=== PATIENT | male | born 1950 | race Caucasian/White ===

== ENCOUNTER 2019-01-03 09:30 | Outpatient (CLI) | payer OTHER, SELFPAY ==
[2019-01-03 10:13] LABS: HGB 12.2 g/dL (13.5-17.5); Mean Corpuscular Hemoglobin 19.6 pg (27.0-33.0); Mean Corpuscular Volume 59.4 fL (80-95); Mean Platelet Volume 9.1 fL (8.0-11.0); Platelet Count 444 x1000/uL (130-400); RBC 6.23 m/cumm (4.50-6.00); RBC Distribution Width 19.2 % (11.8-14.1); White Blood Cell Count 10.43 k/cumm (4.4-10.8)
[2019-01-03 11:11] LABS: D-Dimer 718 ng/mlFEU (<500)
[2019-01-03 12:03] LABS: ALT 17 U/L (12-78); AST 16 U/L (15-37); Albumin 3.8 g/dL (3.4-5.0); Alkaline Phosphatase 126 U/L (46-116); Anion Gap 11.1 mmol/L (3-11); BUN 30 mg/dL (7-18); Bilirubin, Total 0.8 mg/dL (0.2-1.0); CO2 26.9 mmol/L (21.0-32.0); Calcium 9.1 mg/dL (8.5-10.1); Chloride 100 mmol/L (98-107); Estimated GFR 37.94 (mL/min/1.73m2); Glucose 82 mg/dL (70-100); Potassium 4.5 mmol/L (3.5-5.1); Sodium 138 mmol/L (136-145); Total Protein 7.7 g/dL (6.4-8.2)
[2019-01-03 12:32] LABS: NT-proBNP 786 pg/mL
== END 2019-01-03 09:50 ==
LOC: LBO 09:32 → NCHCO 09:58
PROVIDERS: PCP Internal Medicine; Visit Provider Internal Medicine
DX: R06.09 Other forms of dyspnea (principal); R07.89 Other chest pain
CPT/HCPCS: 36415; 80053; 85027; 83880; 85379

== ENCOUNTER 2019-01-07 00:43 | Outpatient (CLI) | payer OTHER, SELFPAY ==
--- NOTE | 2019-01-07 12:51 | DI.CT_ITS ---
SYMPTOMS/DIAGNOSIS: SHORTNESS OF BREATH, R06.02, ELEVATED D-DIMER; LEFT UPPER QUADRANT ABDOMINAL MASS, R19.[address] FOR PULMONARY EMBOLISM: CT angiography was performed with multi slice acquisition and multi planar and 3D reconstruction. Comparison is made with chest x-ray dated April,. The pulmonary arteries, as well as aorta, are well opacified with IV contrast. There is no evidence of pulmonary emboli. There is mild motion at the aortic root. There is no gross evidence of dissection. No aneurysm is seen. There are mild atherosclerotic changes of the thoracic aorta and more prominent atherosclerotic changes in the abdominal aorta. Calcifications are seen in the anterior inferior aspect of the right upper lobe. There is mild respiratory motion. No acute infiltrates, effusion or pulmonary edema is seen. There are no pleural or pericardial effusions or evidence of adenopathy. Coronary artery calcifications are seen. There are degenerative changes in the thoracic spine. IMPRESSION: No evidence of pulmonary emboli. Atherosclerotic changes of the aorta without evidence of aneurysm, as well as coronary artery calcifications are seen. CT OF THE ABDOMEN: The liver and spleen are normal in size. There are stones in the dependent portion of the gallbladder, but no evidence of biliary dilatation or gallbladder wall thickening. The left kidney appears atrophic. There are a few small cysts on the right kidney. The right kidney appears to show compensatory hypertrophy. There are areas of right renal scarring. There is no hydronephrosis of either kidney. There are calcifications in the abdominal aorta and iliac arteries. There are also calcifications of both renal arteries. The spleen is normal in size. The adrenals and pancreas appear normal. There is no bowel dilatation or inflammatory change. No left upper quadrant mass is seen. There is no adenopathy. Degenerative changes are seen in the spine. IMPRESSION: Atherosclerotic changes of the aorta and branch vessels, as well as renal artery calcification. There is atrophy of the left kidney and compensatory hypertrophy of the right kidney, as well as areas of right renal scarring.
[2019-01-07] MEDS: Omnipaque 350 MG/ML 100 ML BTL IJ (13:33)
== END 2019-01-07 01:03 ==
PROVIDERS: PCP Internal Medicine; Visit Provider Internal Medicine
DX: R79.1 Abnormal coagulation profile (principal); R06.2 Wheezing; I70.0 Atherosclerosis of aorta; I70.1 Atherosclerosis of renal artery; R19.02 Left upper quadrant abdominal swelling, mass and lump
CPT/HCPCS: 71275; 74177; J3490

== ENCOUNTER → 2019-01-14 08:47 | Outpatient (REF) | payer OTHER, SELFPAY ==
[2019-01-14 14:02] LABS: Anion Gap 8.6 mmol/L (3-11); BUN 37 mg/dL (7-18); CO2 27.4 mmol/L (21.0-32.0); Calcium 9.4 mg/dL (8.5-10.1); Chloride 102 mmol/L (98-107); Estimated GFR 35.64 (mL/min/1.73m2); Glucose 100 mg/dL (70-100); Potassium 4.8 mmol/L (3.5-5.1); Sodium 138 mmol/L (136-145)
== END ==
LOC: NCHCN 08:47
PROVIDERS: PCP Internal Medicine; Visit Provider Internal Medicine
DX: I10 Essential (primary) hypertension (principal); N18.3 Chronic kidney disease, stage 3 (moderate)
CPT/HCPCS: 80048

== ENCOUNTER 2019-02-19 07:02 | Emergency (ER) | payer OTHER, SELFPAY ==
[2019-02-19] VITALS (18 sets, daily range): BP systolic 165; BP diastolic 97; PULSE 59–748; RESP 7–41; TEMP 37.2; O2SAT 88–100
--- NOTE | 2019-02-19 07:09 | DI.RAD_ITS ---
SYMPTOM/DIAGNOSIS: COUGH, SOB PA AND LATERAL CHEST: Comparison is made with 04/29/17. Heart size and pulmonary vasculature are within normal limits. Plate atelectatic changes are seen. No focal consolidating infiltrates, effusions or pneumothoraces are identified. Degenerative changes are seen in the spine. The lungs do appear to be mildly hyperinflated with flattened diaphragms suggesting underlying COPD. IMPRESSION: No acute pulmonary process.
[2019-02-19] MEDS: methylPREDNISolone SUCC 125 MG VIAL (07:11)
[2019-02-19] MEDS: Albuterol/Ipratropium 3 ML UPD VIAL ×2 (07:11→08:16)
--- NOTE | 2019-02-19 07:12 | W.ED.GENAD ---
Discharge Plan Disposition Patient Disposition: HOME Condition: Improving Discharge Details Chief Complaint: RespSymp Clinical Impression: Asthma exacerbation in COPD Primary Care Provider: Bryant Watkins ED Provider: Juan Stewart Home Meds and New Rx's Prescriptions: New ipratropium-albuterol 0.5 mg-3 mg(2.5 mg base)/3 mL solution for nebulization 3 ml IH Q6H Qty: 90 RF: 0 prednisone 50 MG tablet 50 mg PO DAILY Qty: 5 RF: 0 doxycycline hyclate 100 mg capsule 100 mg PO BID Qty: 20 RF: 0 No Action rosuvastatin [Crestor] 10 MG tablet 10 g PO .QHS RF: 0 albuterol sulfate [ProAir HFA] 200 PUFF HFA aerosol inhaler 2 puff Inhalation Q4H PRN PRNQty: 1 RF: 0 torsemide 20 mg Tablet 20 mg PO DAILY RF: 0 metoprolol succinate [Toprol XL] 50 mg Tablet Extended Release 24 Hr 50 mg PO DAILY RF: 0 terazosin 1 mg Capsule 1 mg PO DAILY RF: 0 minoxidil 2.5 mg Tablet 5 mg PO DAILY RF: 0 amlodipine 10 mg Tablet 10 mg PO DAILY RF: 0 polyethylene glycol 3350 [GlycoLax] 17 gram/dose Powder 17 g PO DAILY PRNRF: 0 Bevespi Aerosphere 9-4.8 mcg Hfa Aerosol Inhaler 2 puff INHALATION QAM AND QPM RF: 0 Discharge Instructions Instructions: COPD (Chronic Obstructive Pulmonary Disease) (ED) Additional Instructions: Please take the antibiotic, prednisone, and breathing treatments as directed. If you notice any worsening of your symptoms, or any new symptoms such as vomiting, diarrhea, fever, chills, shortness of breath, chest pain, numbness, weakness, or fainting , please return immediately to the emergency department for reevaluation. Please follow up with your primary care provider as soon as possible for reassessment and reevaluation. As always, it was a pleasure participating in your medical care today. Referrals: Bryant Watkins MD [Primary Care Provider] - Discharge Data Discharge Date/Time-TO BE ENTERED AT DEPARTURE: 02/19/19 09:23 Medical Decision Making <Manuel Nguyen DO - Last Filed: 02/21/19 08:03> This is a pleasant 68-year-old male with past medical history of COPD, no recent admissions or exacerbations for the last year. Patient states that 3 days ago he began having worsening cough and shortness of breath, been taking his breathing treatments but these have not been helping as of late. He does admit to a cough that is nonproductive. He denies any other complaints. He denies any concerning red flags of chest pain, arm, neck, or shoulder pain. She denies a history of cardiac disease. Exam demonstrates mild respiratory distress, diminished breath sounds throughout, no significant rhonchi. Oxygen saturations are stable currently on 2 L of supplemental oxygen, however he was 90% on room air when he first arrived. We will give breathing treatments, steroids, and get chest x-ray, evaluate for unlikely cardiac etiology as his signs and symptoms are clinically consistent with COPD exacerbation. 7:37 AM Patient has had notable improvement with multiple breathing treatments and Solu-Medrol. He is feeling much better. I do feel that he would benefit from an outpatient nebulizer for the rest of his life. We will get this set up for him. Pending chest x-ray results at this time. EKG 7: 06 Rate 77, intervals normal, less than 1 mm of normal J-point nontombs stoning ST elevation in V1 through V3, poor R wave progression. EKG from 04/29/17 demonstrates the same findings. Slight peaking of T waves are noted in V2 and V3 V4. <Juan Stewart MD - Last Filed: 02/19/19 09:13> Received signout from Dr. Nguyen. Please see his note regarding details of initial presentation, plan of care. Patient's chest x-ray without focal consolidation. Consistent with his known COPD. He stable and improved, appropriate discharged home per previous plan HPI <Manuel Nguyen DO - Last Filed: 02/21/19 08:03> General Date/Time Provider Initiated Documentation: 02/19/19 07:04. HPI Narrative: This is a 68-year-old male with a past medical history of COPD, who no longer smokes but his significant other who lives with him does smoke, who presents today for evaluation of shortness of breath. Patient states that for the last 3 days he has had a nonproductive cough, and shortness of breath. Initially it was benefited by his breathing treatments however that is no longer the case. He denies any chest pain, pleuritic chest pain, arm, neck, or shoulder pain. He denies any history of cardiac disease. He denies any fever, chills. He denies any new medication changes. He denies any history of blood clots, recent long trips, recent surgeries or procedures. He has no other complaints at this time. He denies any other modifying factors. Related Data Home Medications Medication Instructions Recorded Confirmed albuterol sulfate [ProAir HFA] 2 puff INHALATION Q4H PRN PRN #1 04/29/17 02/21/19 inh rosuvastatin [Crestor] 10 g PO .QHS 04/29/17 02/21/19 amlodipine 10 mg PO DAILY 02/19/19 02/21/19 doxycycline hyclate 100 mg PO BID #20 cap 02/19/19 02/21/19 glycopyrrolate-formoterol [Bevespi 2 puff INHALATION QAM AND QPM 02/19/19 02/21/19 Aerosphere] ipratropium-albuterol 3 ml IH Q6H #90 ml 02/19/19 02/21/19 metoprolol succinate [Toprol XL] 50 mg PO DAILY 02/19/19 02/21/19 minoxidil 5 mg PO DAILY 02/19/19 02/21/19 polyethylene glycol 3350 [GlycoLax] 17 g PO DAILY PRN 02/19/19 02/21/19 prednisone 50 mg PO DAILY #5 tab 02/19/19 02/21/19 terazosin 1 mg PO DAILY 02/19/19 02/21/19 torsemide 20 mg PO DAILY 02/19/19 02/21/19 Previous Rx's Medication Instructions Recorded albuterol sulfate [ProAir HFA] 2 puff INHALATION Q4H PRN PRN #1 04/29/17 inh doxycycline hyclate 100 mg PO BID #20 cap 02/19/19 ipratropium-albuterol 3 ml IH Q6H #90 ml 02/19/19 prednisone 50 mg PO DAILY #5 tab 02/19/19 Allergies Allergy/AdvReac Type Severity Reaction Status Date / Time acetaminophen Allergy Unverified 02/21/19 04:14 [From Tylenol-Codeine] codeine phosphate Allergy Unverified 02/21/19 04:14 [From Tylenol-Codeine] General Stated Complaint: RespSymp DAISY: 2 Review of Systems <Manuel Nguyen DO - Last Filed: 02/21/19 08:03> Review of Systems All systems reviewed & are unremarkable except as noted in HPI and below PFSH <Manuel Nguyen DO - Last Filed: 02/21/19 08:03> Social History Smoking/Tobacco Use Status: Former Tobacco Use Quit Date: 01/11/17 Alcohol Intake: never Substance use type: does not use Do you feel safe at home: Yes Do you feel safe in your relationship?: Yes Exam <Manuel Nguyen DO - Last Filed: 02/21/19 08:03> Narrative Exam Narrative: 1.Const: Well-nourished, Well-developed, appearing stated age 2.Eyes: PERRL, no conjunctival injection, and symmetrical lids. 3.ENT: Atraumatic external nose and ears. Moist MM. Neck: Symmetric, trachea midline, No thyromegaly. 4.CVS: +S1/S2, No murmurs or gallops. Peripheral pulses 2+ and equal in all extremities. Brisk capillary refill in all extremities. 5.RESP: Mild respiratory distress, no hypoxemia. Diminished breath sounds throughout, no rhonchi. Minimal crackles. 6.GI: Soft, Nontender/Nondistended, No hepatosplenomegaly. No guarding or rebound. 7.MSK: Normocephalic/Atraumatic, Extremities w/o deformity or ttp No cyanosis or clubbing, Normal movement of all extremities. No calf tenderness. 8.Skin: Warm, Dry. No rashes or lesions. 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 Sensation grossly intact, no focal neurologic deficits. 10.Psych: (AAO) x3. Appropriate mood and affect Course <Manuel Nguyen DO - Last Filed: 02/21/19 08:03> Vital Signs Temperature 37.2 C 02/19/19 07:05 Pulse 748 H 02/19/19 07:05 Respiratory Rate 25 H 02/19/19 07:05 Blood Pressure 165/97 H 02/19/19 07:05 Pulse Oximetry 94 L 02/19/19 07:05 Temperature 37.2 C 02/19/19 07:05 Temperature Source Temporal Artery Scan 02/19/19 07:05 Pulse 78 02/19/19 07:11 Respiratory Rate 21 02/19/19 07:11 Blood Pressure 165/97 H 02/19/19 07:05 Blood Pressure Position Sitting 02/19/19 07:05 Pulse Oximetry 99 02/19/19 07:11 Oxygen Delivery Method Aerosol Mask 02/19/19 07:11 Oxygen Flow Rate 0 02/19/19 07:05 Pain Level 0 02/19/19 07:05 Sign Out <Manuel Nguyen DO - Last Filed: 02/21/19 08:03> Sign Out Data: Sign Out Comment: Pending chest x-ray results and discharge Last updated by Manuel Nguyen DO at 02/19/19 08:11
[2019-02-19 07:22] LABS: Abs Immature Grans 0.05 k/cumm (0.0-0.09); Absolute Eosinophil Count 0.27 k/cumm (0.0-0.7); Absolute Monocyte Count 0.92 k/cumm (0.11-0.7); Absolute Neutrophil Count 11.03 k/cumm (1.2-6.7); Basophils % 0.4; Eosinophils % 1.9; HCT 36.5 % (40.0-50.0); HGB 12.1 g/dL (13.5-17.5); Immature Grans % 0.4; Lymphocytes % 12.7; Mean Corp. HGB Concentration 33.2 g/dL (32.0-36.0); Mean Corpuscular Hemoglobin 19.7 pg (27.0-33.0); Mean Corpuscular Volume 59.5 fL (80-95); Mean Platelet Volume 8.9 fL (8.0-11.0); Monocytes % 6.5; Neutrophils % 78.1; Platelet Count 424 x1000/uL (130-400); RBC 6.13 m/cumm (4.50-6.00); RBC Distribution Width 19.9 % (11.8-14.1); White Blood Cell Count 14.12 k/cumm (4.4-10.8)
[2019-02-19 07:32] LABS: Absolute Basophil Count 0.06 k/cumm (0.0-0.2); Absolute Lymphocyte Count 1.79 k/cumm (1.2-3.4)
[2019-02-19 07:43] LABS: ALT 18 U/L (12-78); AST 11 U/L (15-37); Albumin 3.9 g/dL (3.4-5.0); Alkaline Phosphatase 110 U/L (46-116); Anion Gap 12.6 mmol/L (3-11); BUN 23 mg/dL (7-18); Bilirubin, Total 1.4 mg/dL (0.2-1.0); CO2 23.4 mmol/L (21.0-32.0); CREATININE 1.67 mg/dL (0.70-1.30); Chloride 104 mmol/L (98-107); Estimated GFR 41.37 (mL/min/1.73m2); Glucose 106 mg/dL (70-100); Sodium 140 mmol/L (136-145); Total Protein 7.8 g/dL (6.4-8.2)
[2019-02-19 07:44] LABS: Troponin I < 0.02 ng/mL (0.00-0.06)
--- NOTE | 2019-02-19 09:26 | DI.VRAD_ITS ---
EXAM: XR Chest, 2 Views EXAM DATE/TIME: 02/19/2019 7:34 AM CLINICAL HISTORY: 68 years old, male; Signs and symptoms; Cough and shortness of breath; Additional info: Cough SOB TECHNIQUE: Imaging protocol: XR of the chest, 2 views. COMPARISON: CR CHEST 2 VIEWS PA,LAT 04/29/2017 8:32 AM FINDINGS: Lungs: Hyperexpansion and hyperlucency of the lungs consistent with chronic obstructive pulmonary disease. Mild elevation of the left hemidiaphragm with adjacent atelectasis. No consolidation. Redemonstrated calcification projected near the right hilum on name PA view. Pleural space: Unremarkable. No pleural effusion. No pneumothorax. Heart/Mediastinum: Heart is normal in size. Prominent pericardial fat pad. Bones/joints: Unremarkable for age. IMPRESSION: Negative for acute pathology. Dictated and Authenticated by: Sabine Hartley MD. Ordering:DAVID Jackson MD
== END 2019-02-19 09:23 | disposition home or self-care (01) ==
PROVIDERS: Student in an Organized Health Care Education/Training Program; Emergency Provider Emergency Medicine; PCP Internal Medicine
DX: J44.1 Chronic obstructive pulmonary disease with (acute) exacerbation (principal)
CPT/HCPCS: 36415; 80053; 93005; 94640; 99285; 71046; 84484; 85025; 93010; J2930; J7620

== ENCOUNTER 2019-02-21 03:42 | Inpatient (IN) | payer OTHER, SELFPAY ==
[2019-02-21] VITALS (96 sets, daily range): BP systolic 135–200; BP diastolic 59–119; PULSE 81–111; RESP 5–26; TEMP 36.6–37.5; O2SAT 87–98
--- NOTE | 2019-02-21 03:33 | W.ED.GENAD ---
Discharge Plan Disposition Patient Disposition: [facility] INPATIENT Condition: Fair Discharge Details Chief Complaint: SOB Clinical Impression: Non-ST elevation MD (NSTEMI), Hypoxia, Pulmonary edema Primary Care Provider: Bryant Watkins ED Provider: Paul Cuevas Home Meds and New Rx's Prescriptions: No Action rosuvastatin [Crestor] 10 MG tablet 10 g PO .QHS RF: 0 albuterol sulfate [ProAir HFA] 200 PUFF HFA aerosol inhaler 2 puff Inhalation Q4H PRN PRNQty: 1 RF: 0 torsemide 20 mg Tablet 20 mg PO DAILY RF: 0 metoprolol succinate [Toprol XL] 50 mg Tablet Extended Release 24 Hr 50 mg PO DAILY RF: 0 terazosin 1 mg Capsule 1 mg PO DAILY RF: 0 minoxidil 2.5 mg Tablet 5 mg PO DAILY RF: 0 amlodipine 10 mg Tablet 10 mg PO DAILY RF: 0 polyethylene glycol 3350 [GlycoLax] 17 gram/dose Powder 17 g PO DAILY PRNRF: 0 Bevespi Aerosphere 9-4.8 mcg Hfa Aerosol Inhaler 2 puff INHALATION QAM AND QPM RF: 0 ipratropium-albuterol 0.5 mg-3 mg(2.5 mg base)/3 mL solution for nebulization 3 ml IH Q6H Qty: 90 RF: 0 prednisone 50 MG tablet 50 mg PO DAILY Qty: 5 RF: 0 doxycycline hyclate 100 mg capsule 100 mg PO BID Qty: 20 RF: 0 Medical Decision Making 68 yo male with hx of copd, quit smoking 2 years ago and denies drug or alcohol use, comes in with chief complaint of shortness of breath since Monday. He was seen on 02/19 and started on doxy and prednisone for likely copd exacerbation. He did feel better with this but since last night has had increased sob so called ems. He denies fevers or chest pain. He is tachypneic and can only speak in 1-2 word sentences. He was given a duoneb in the ambulance with some relief of his symptoms per pt. He has diffuse wheezing and rhonchi bilaterally. On bedside u/s there is no pericardial effusion and does have bilateral b lines in the lungs. Suspect primarily copd but given the b lines and him being on torsemide could be pulmonary edema. Will obtain ecg, lab work and chest xray and monitor, tx with nebs, IV solumedrol and IV lasix and monitor. HAs no calf pain or pleuritic chest pain and physical exam of the lungs does not fit with PE pt feeling better after nebs and lasix. Troponin elevated at 0.61. He now states he has had chest burning intermittently for the past few days and worse shortness of breath when laying flat. Denies any chest burning, pressure or pain now. Will tx with asa, plavix and heparin and discuss case with [place] [facility] came back with wbc over 20, xray shows moderate pulmonary edema, suspect wbc due to prednisone he has been on. probnp now over 4000. He remains stable, [place] [facility] [place] [facility] [place] they have accepted him but won't have any bed availability until at the earliest later today. He has been hypertensive since last exam with bp's now 180/120 consistently so will initiate nitro drip and admit to icu here until [facility] [place] becomes available. 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 Lab Data Lab results reviewed: Yes I reviewed the patient's lab results. ECG Data Attestation: I personally reviewed and interpreted this ECG (s) as follows: Prior ECG tracings: available for review Interpretation: sinus rhythm, rate of 90, pr 174, mild st depressions in lateral lead 2nd ekg shows sinus rhythm, rate of 90, pr 180, no acute changes from first ekg HPI General Mode of arrival: EMS. Date/Time Provider Initiated Documentation: 02/21/19 03:47. Information obtained by: patient. History of Present Illness 68 year old M presents to the emergency department with the chief complaint of shortness of breath, described as severe, Patient started experiencing this day(s) (4) and it has been constant. No relieving factors improve symptom(s), No exacerbating factors reported . Patient notes cough. Patient did receive the following treatments prior to arrival, none Related Data Home Medications Medication Instructions Recorded Confirmed albuterol sulfate [ProAir HFA] 2 puff INHALATION Q4H PRN PRN #1 04/29/17 02/21/19 inh rosuvastatin [Crestor] 10 g PO .QHS 04/29/17 02/21/19 amlodipine 10 mg PO DAILY 02/19/19 02/21/19 doxycycline hyclate 100 mg PO BID #20 cap 02/19/19 02/21/19 glycopyrrolate-formoterol [Bevespi 2 puff INHALATION QAM AND QPM 02/19/19 02/21/19 Aerosphere] ipratropium-albuterol 3 ml IH Q6H #90 ml 02/19/19 02/21/19 metoprolol succinate [Toprol XL] 50 mg PO DAILY 02/19/19 02/21/19 minoxidil 5 mg PO DAILY 02/19/19 02/21/19 polyethylene glycol 3350 [GlycoLax] 17 g PO DAILY PRN 02/19/19 02/21/19 prednisone 50 mg PO DAILY #5 tab 02/19/19 02/21/19 terazosin 1 mg PO DAILY 02/19/19 02/21/19 torsemide 20 mg PO DAILY 02/19/19 02/21/19 Previous Rx's Medication Instructions Recorded albuterol sulfate [ProAir HFA] 2 puff INHALATION Q4H PRN PRN #1 04/29/17 inh doxycycline hyclate 100 mg PO BID #20 cap 02/19/19 ipratropium-albuterol 3 ml IH Q6H #90 ml 02/19/19 prednisone 50 mg PO DAILY #5 tab 02/19/19 Allergies Allergy/AdvReac Type Severity Reaction Status Date / Time acetaminophen Allergy Unverified 02/21/19 04:14 [From Tylenol-Codeine] codeine phosphate Allergy Unverified 02/21/19 04:14 [From Tylenol-Codeine] General DAISY: 2 Review of Systems Review of Systems All systems reviewed & are unremarkable except as noted in HPI and below Constitutional Denies chills, Denies fever(s) and Denies weakness Cardiovascular Denies chest pain Gastrointestinal Denies abdominal pain, Denies nausea and Denies vomiting Neurologic Denies weakness PFSH Social History Smoking/Tobacco Use Status: Former Tobacco Use Quit Date: 01/11/17 Alcohol Intake: never Substance use type: does not use Do you feel safe at home: Yes Do you feel safe in your relationship?: Yes Exam Const General: other (tachypneic) Orientation: alert HENMT Head: normal to inspection Ears: external ears normal General nose exam: external nose normal Mouth: moist mucous membranes Eyes General: appearance normal, both eyes and all related structures Neck Neck: normal visual inspection Resp Effort & Inspection: audible wheezes and tachypneic Cardio Rate: regular rate Skin General skin exam: no rashes or lesions noted Neuro General: alert and oriented x3 Extrem General: normal to inspection Psych Mental Status: mental status grossly normal Critical Care Time Critical Care Time: Yes Total Critical Care Time: 60 (minutes) Attestation: time spent on lab and ecg review, frequent reassessments and Hemodynamic monitoring in patient with an NSTEMI and potential to deteriorate at any time
--- NOTE | 2019-02-21 03:53 | ED.GENADUL_ITS ---
Discharge Plan Disposition Patient Disposition: [facility] INPATIENT Condition: Fair Discharge Details Chief Complaint: SOB Clinical Impression: Non-ST elevation HI (NSTEMI), Hypoxia, Pulmonary edema Primary Care Provider: Bryant Watkins ED Provider: Paul Cuevas Home Meds and New Rx's Prescriptions: No Action rosuvastatin [Crestor] 10 MG tablet 10 g PO .QHS RF: 0 albuterol sulfate [ProAir HFA] 200 PUFF HFA aerosol inhaler 2 puff Inhalation Q4H PRN PRNQty: 1 RF: 0 torsemide 20 mg Tablet 20 mg PO DAILY RF: 0 metoprolol succinate [Toprol XL] 50 mg Tablet Extended Release 24 Hr 50 mg PO DAILY RF: 0 terazosin 1 mg Capsule 1 mg PO DAILY RF: 0 minoxidil 2.5 mg Tablet 5 mg PO DAILY RF: 0 amlodipine 10 mg Tablet 10 mg PO DAILY RF: 0 polyethylene glycol 3350 [GlycoLax] 17 gram/dose Powder 17 g PO DAILY PRNRF: 0 Bevespi Aerosphere 9-4.8 mcg Hfa Aerosol Inhaler 2 puff INHALATION QAM AND QPM RF: 0 ipratropium-albuterol 0.5 mg-3 mg(2.5 mg base)/3 mL solution for nebulization 3 ml IH Q6H Qty: 90 RF: 0 prednisone 50 MG tablet 50 mg PO DAILY Qty: 5 RF: 0 doxycycline hyclate 100 mg capsule 100 mg PO BID Qty: 20 RF: 0 Medical Decision Making 68 yo male with hx of copd, quit smoking 2 years ago and denies drug or alcohol use, comes in with chief complaint of shortness of breath since Monday. He was seen on 02/19 and started on doxy and prednisone for likely copd exacerbation. He did feel better with this but since last night has had increased sob so called ems. He denies fevers or chest pain. He is tachypneic and can only speak in 1-2 word sentences. He was given a duoneb in the ambulance with some relief of his symptoms per pt. He has diffuse wheezing and rhonchi bilaterally. On bedside u/s there is no pericardial effusion and does have bilateral b lines in the lungs. Suspect primarily copd but given the b lines and him being on torsemide could be pulmonary edema. Will obtain ecg, lab work and chest xray and monitor, tx with nebs, IV solumedrol and IV lasix and monitor. HAs no calf pain or pleuritic chest pain and physical exam of the lungs does not fit with PE pt feeling better after nebs and lasix. Troponin elevated at 0.61. He now states he has had chest burning intermittently for the past few days and worse shortness of breath when laying flat. Denies any chest burning, pressure or pain now. Will tx with asa, plavix and heparin and discuss case with cardiology at [facility] cbc came back with wbc over 20, xray shows moderate pulmonary edema, suspect wbc due to prednisone he has been on. probnp now over 4000. He remains stable, awaiting [facility] spoke with cardiology at [facility] and they have accepted him but won't have any bed availability until at the earliest later today. He has been hypertensive since last exam with bp's now 180/120 consistently so will initiate nitro drip and admit to icu here until [facility] bed becomes available. accepting tester operator at [facility] is Dr. 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 Lab Data Lab results reviewed: Yes I reviewed the patient's lab results. ECG Data Attestation: I personally reviewed and interpreted this ECG (s) as follows: Prior ECG tracings: available for review Interpretation: sinus rhythm, rate of 90, pr 174, mild st depressions in lateral lead 2nd ekg shows sinus rhythm, rate of 90, pr 180, no acute changes from first ekg HPI General Mode of arrival: EMS . Date/Time Provider Initiated Documentation: 02/21/19 03:47 . Information obtained by: patient . History of Present Illness 68 year old M presents to the emergency department with the chief complaint of shortness of breath, described as severe, Patient started experiencing this day(s) (4) and it has been constant. No relieving factors improve symptom(s), No exacerbating factors reported . Patient notes cough. Patient did receive the following treatments prior to arrival, none Related Data Home Medications Medication Instructions Recorded Confirmed albuterol sulfate [ProAir HFA] 2 puff INHALATION Q4H PRN PRN #1 04/29/17 02/21/19 inh rosuvastatin [Crestor] 10 g PO .QHS 04/29/17 02/21/19 amlodipine 10 mg PO DAILY 02/19/19 02/21/19 doxycycline hyclate 100 mg PO BID #20 cap 02/19/19 02/21/19 glycopyrrolate-formoterol [Bevespi 2 puff INHALATION QAM AND QPM 02/19/19 02/21/19 Aerosphere] ipratropium-albuterol 3 ml IH Q6H #90 ml 02/19/19 02/21/19 metoprolol succinate [Toprol XL] 50 mg PO DAILY 02/19/19 02/21/19 minoxidil 5 mg PO DAILY 02/19/19 02/21/19 polyethylene glycol 3350 [GlycoLax] 17 g PO DAILY PRN 02/19/19 02/21/19 prednisone 50 mg PO DAILY #5 tab 02/19/19 02/21/19 terazosin 1 mg PO DAILY 02/19/19 02/21/19 torsemide 20 mg PO DAILY 02/19/19 02/21/19 Previous Rx's Medication Instructions Recorded albuterol sulfate [ProAir HFA] 2 puff INHALATION Q4H PRN PRN #1 04/29/17 inh doxycycline hyclate 100 mg PO BID #20 cap 02/19/19 ipratropium-albuterol 3 ml IH Q6H #90 ml 02/19/19 prednisone 50 mg PO DAILY #5 tab 02/19/19 Allergies Allergy/AdvReac Type Severity Reaction Status Date / Time acetaminophen Allergy Unverified 02/21/19 04:14 [From Tylenol-Codeine] codeine phosphate Allergy Unverified 02/21/19 04:14 [From Tylenol-Codeine] General DAISY: 2 Review of Systems Review of Systems All systems reviewed & are unremarkable except as noted in HPI and below Constitutional Denies chills, Denies fever(s) and Denies weakness Cardiovascular Denies chest pain Gastrointestinal Denies abdominal pain, Denies nausea and Denies vomiting Neurologic Denies weakness PFSH Social History Smoking/Tobacco Use Status: Former Tobacco Use Quit Date: 01/11/17 Alcohol Intake: never Substance use type: does not use Do you feel safe at home: Yes Do you feel safe in your relationship?: Yes Exam Const General: other (tachypneic) Orientation: alert HENMT Head: normal to inspection Ears: external ears normal General nose exam: external nose normal Mouth: moist mucous membranes Eyes General: appearance normal, both eyes and all related structures Neck Neck: normal visual inspection Resp Effort & Inspection: audible wheezes and tachypneic Cardio Rate: regular rate Skin General skin exam: no rashes or lesions noted Neuro General: alert and oriented x3 Extrem General: normal to inspection Psych Mental Status: mental status grossly normal Critical Care Time Critical Care Time: Yes Total Critical Care Time: 60 (minutes) Attestation: time spent on lab and ecg review, frequent reassessments and Hemodynamic monitoring in patient with an NSTEMI and potential to deteriorate at any time
[2019-02-21] MEDS: Albuterol/Ipratropium 3 ML UPD VIAL UPD (03:56)
[2019-02-21] MEDS: Furosemide 40 MG/4 ML VIAL IVP ×2 (03:57→09:37)
[2019-02-21] MEDS: methylPREDNISolone SUCC 125 MG VIAL IVP (03:58)
[2019-02-21] MEDS: Normal Saline Flush 10 ML SYR IVP ×2 (03:58→07:58)
--- NOTE | 2019-02-21 04:02 | DI.RAD_ITS ---
SYMPTOM/DIAGNOSIS: SOB PORTABLE AP CHEST: The heart is enlarged. There is prominence of the pulmonary markings bilaterally and the markings have increased in prominence in comparison with the examination of 02/19. The findings are suggestive of early CHF. No gross pleural effusion identified on this frontal film. CONCLUSION: Findings suggestive developing CHF.
--- NOTE | 2019-02-21 04:12 | NUR.NOTE ---
Nursing Note: pt refused to have flu test done
[2019-02-21 04:17] LABS: ALT 22 U/L (12-78); AST 20 U/L (15-37); Albumin 3.7 g/dL (3.4-5.0); Alkaline Phosphatase 95 U/L (46-116); Anion Gap 11.9 mmol/L (3-11); BUN 40 mg/dL (7-18); Bilirubin, Total 0.9 mg/dL (0.2-1.0); CO2 26.1 mmol/L (21.0-32.0); CREATININE 1.93 mg/dL (0.70-1.30); Calcium 10.1 mg/dL (8.5-10.1); Chloride 103 mmol/L (98-107); Estimated GFR 35.01 (mL/min/1.73m2); Glucose 93 mg/dL (70-100); INR 0.9 (0.9-1.1); PTT Activated 19.9 sec (21.0-31.4); Potassium 3.5 mmol/L (3.5-5.1); Prothrombin Time 9.1 sec (9.3-11.0); Sodium 141 mmol/L (136-145); Total Protein 7.6 g/dL (6.4-8.2)
[2019-02-21 04:18] LABS: Troponin I 0.61 ng/mL (0.00-0.06)
[2019-02-21 04:23] LABS: Abs Immature Grans 0.16 k/cumm (0.0-0.09); Absolute Basophil Count 0.02 k/cumm (0.0-0.2); Absolute Eosinophil Count 0.02 k/cumm (0.0-0.7); Absolute Neutrophil Count 18.93 k/cumm (1.2-6.7); Basophils % 0.1; Eosinophils % 0.1; HCT 33.9 % (40.0-50.0); HGB 11.2 g/dL (13.5-17.5); Immature Grans % 0.7; Lymphocytes % 9.5; Mean Corpuscular Hemoglobin 19.7 pg (27.0-33.0); Mean Corpuscular Volume 59.7 fL (80-95); Mean Platelet Volume 9.4 fL (8.0-11.0); Monocytes % 6.3; Neutrophils % 83.3; Platelet Count 441 x1000/uL (130-400); RBC 5.68 m/cumm (4.50-6.00); RBC Distribution Width 19.6 % (11.8-14.1); White Blood Cell Count 22.72 k/cumm (4.4-10.8)
[2019-02-21 04:29] LABS: Absolute Lymphocyte Count 2.16 k/cumm (1.2-3.4); Absolute Monocyte Count 1.43 k/cumm (0.11-0.7)
[2019-02-21] MEDS: Clopidogrel 300 MG TAB PO (04:33)
[2019-02-21] MEDS: Aspirin 81 MG CHEW 324 MG CH (04:33)
[2019-02-21 04:38] LABS: NT-proBNP 4193 pg/mL
--- NOTE | 2019-02-21 04:41 | DI.VRAD_ITS ---
EXAM: XR Chest, 1 View EXAM DATE/TIME: 02/21/2019 3:36 AM CLINICAL HISTORY: 68 years old, male; Signs and symptoms; Shortness of breath TECHNIQUE: Imaging protocol: XR of the chest, 1 view. COMPARISON: CR XR CHEST 2V PA LATERAL 02/19/2019 7:33 AM FINDINGS: Lungs: Mild to moderate pulmonary vascular congestion. Emphysematous changes. Pleural space: No pneumothorax. No sizable pleural effusion. Heart/Mediastinum: Cardiomegaly. Bones/joints: Unremarkable. IMPRESSION: Mild to moderate pulmonary vascular congestion. Dictated and Authenticated by: Davidson Pro MD. Ordering:DEVON Miller MD
--- NOTE | 2019-02-21 05:01 | NUR.NOTE ---
Nursing Note: Pt rang call chu and requesting to use bathroom. Pt was offerred a urinal and commode in which pt declines. Pt was educated that if he were to leave his room and use the restroom that he would not be on a examination scorer and that if his rhythm changes or becomes unstable that nursing and physician would be unaware. Pt verbalizes understanding and the risks of coming off the examination scorer at this time and states he would like to use the bathroom. MD aware, pt was escorted to the restroom and back to room w/out incident.
[2019-02-21] MEDS: Acetaminophen 500 MG TAB 1000 MG PO (05:47)
--- NOTE | 2019-02-21 06:11 | W.PM.HP.N ---
Date of service: 02/21/19 Time of Service: 06:11 Assessment and Plan (1) Non-STEMI (non-ST elevated myocardial infarction): Current visit: Yes Status: Acute Continue Plavix and aspirin for antiplatelet therapy along with systemic heparin. Titrate nitroglycerin drip for blood pressure control as well as for any ischemic pain. Continue supportive care with oxygen. Will give beta-blockers for his tachycardia and NC. Patient has been accepted to [facility] to the service of Dr. Tez Avila and apparently transfer is imminent this morning. Further evaluation will be obtained at [facility] including echo and or cardiac cath. Clinically he is stable at this time although his blood pressure remains elevated in the 160-170 range. Patient just received his Lopressor dose which I had ordered in the emergency room at the time of admission. We will continue to titrate his nitroglycerin drip. I have continued his iv lasix for his acute CHF. (2) Acute systolic CHF (congestive heart failure): Current visit: Yes Status: Acute continue lasix iv along w/ iv NTG, consider ISHAN-I or ARB although his CTA of his chest and abdomen in 01/07/2019 demonstrated hypertrophy of his right kidney and atrophied left kidney along w/ atherosclerotic changes in his aorta and branch vessels and renals, therefore he may have MELANI. For now I would hold on ISHAN-I and ARB but titrate his NTG and switch his Toprol XL to carvedilol. I did bedside POCUS and found he has moderate LV dysfunction w/ apical/lateral hypokinesis however a formal echo will be needed and I ordered one for this a.m. but he is being imminently transferred to [facility] [place] this a.m. (3) Chronic renal failure: Current visit: Yes Status: Chronic etiology is unclear but given his disparity in his renal size, I suspect he has renovascular disease and his longstanding HTN has contributed to his CKD. His baseline creatinine is around 1.7 to 1.8. For now I will avoid ISHAN-I or ARB but use vasodilators and BB to control his BP. History of Present Illness Chief Complaint: shortness of breath Narrative: 68 yr old male former smoker w/ PMH COPD, HTN, HLD who presented to the ER on 02/19/2018 w/ c/o 3d of nonproductive cough, dyspnea despite use of his inhalers, not associated w/ CP, fever or chills. Workup in the ER included CXR, EKG, labs.He was diagnosed w/ COPD exacerbation, given aerosolized bronchodilators, corticosteroids and discharged on a course of prednisone and doxycycline. This a.m. he presented to the ER with worsening dyspnea and non-productive cough. Initially he told Dr. Cuevas in the ER that he did not have any CP but later admitted to some chest burning intermittently for a few days and having orthopnea. On arrival he was tachypneic and Dr. Cuevas found that he had diffuse wheezing and rhonchi bilaterally along with basilar rales. Bedside POCUS revealed diffuse B lines. Pulmonary edema was suspected and confirmed on CXR. EKG this a.m. demonstrated SR at 90 bpm with evidence of old anterior NC, peaked T waves across precordium and new ST depresssion in lateral leads V5, V6; baseline artifact in other leads (I, aVL, II, III, aVF). Labs revealed elevated BNP [id number], and elevated troponin of 0.61 and worsening renal function w/ BUN 40, creatinine of 1.[address] Cuevas spoke w/ [facility] truck terminal manager and was advised that there are no beds available but recommended Plavix and to keep the patient here until a bed becomes available later today at [facility] [place]. The patient was started on heparin drip and NTG drip (not so much for CP but for elevated BP in the 180-190. He was given lasix 40 mg IV, ASA 324 mg. Prior to dx of NSTEMI and CHF he had been given DuoNeb aerosol and solumedrol 125 mg IV. He is now being admitted to ICU for treatment of acute CHF and NSTEMI. Review of Systems Constitutional Reports as per HPI, Denies chills, Reports fatigue and Denies fever(s) Eyes Reports system reviewed and no additional complaints, except as docu ENT Reports system reviewed and no additional complaints, except as docu Cardiovascular Reports as per HPI, Reports chest pain at rest, Denies leg edema, Reports dyspnea, Reports dyspnea on exertion, Reports orthopnea and Reports paroxysmal nocturnal dyspnea Respiratory Reports as per HPI, Reports cough (Nonproductive), Reports dyspnea and Reports dyspnea on exertion Gastrointestinal Reports bloating, Reports constipation and Reports heartburn Genitourinary Reports system reviewed and no additional complaints, except as docu Musculoskeletal Reports system reviewed and no additional complaints, except as docu Integumentary/Breasts Reports system reviewed and no additional complaints, except as docu Neurologic Reports system reviewed and no additional complaints, except as docu Psychiatric Reports system reviewed and no additional complaints, except as docu Endocrine Reports system reviewed and no additional complaints, except as docu and Reports fatigue Hematologic/Lymphatic Reports system reviewed and no additional complaints, except as docu Allergic/Immunologic Reports system reviewed and no additional complaints, except as docu PFSH Medical History Alcoholism in recovery (Chronic) COPD (chronic obstructive pulmonary disease) (Chronic) Essential hypertension (Chronic) Hyperlipidemia (Chronic) Hypospadias in male (Resolved) Surgical History History of phacoemulsification of cataract of both eyes with intraocular lens implantation (Resolved) History of tonsillectomy (Resolved) Social History Smoking/Tobacco Use Status: Former Tobacco Use Quit Date: 01/11/17 Alcohol Intake: former Year quit: 2016 Details: Former alcoholic up to 2 cases of gin per month Substance use type: does not use Number of Children: 0 Pets and animals: Yes Pets and animals: dog(s) What is your relationship status?: Panel score (0-1 are the most socially isolated patients): 1 Do you feel safe at home: Yes Do you feel safe in your relationship?: Yes Meds Home Medications Medication Instructions Recorded Confirmed Type albuterol sulfate [ProAir HFA] 2 puff INHALATION Q4H PRN PRN #1 04/29/17 02/21/19 Rx inh rosuvastatin [Crestor] 10 g PO .QHS 04/29/17 02/21/19 History amlodipine 10 mg PO DAILY 02/19/19 02/21/19 History doxycycline hyclate 100 mg PO BID #20 cap 02/19/19 02/21/19 Rx glycopyrrolate-formoterol [Bevespi 2 puff INHALATION QAM AND QPM 02/19/19 02/21/19 History Aerosphere] ipratropium-albuterol 3 ml IH Q6H #90 ml 02/19/19 02/21/19 Rx metoprolol succinate [Toprol XL] 50 mg PO DAILY 02/19/19 02/21/19 History minoxidil 5 mg PO DAILY 02/19/19 02/21/19 History polyethylene glycol 3350 [GlycoLax] 17 g PO DAILY PRN 02/19/19 02/21/19 History prednisone 50 mg PO DAILY #5 tab 02/19/19 02/21/19 Rx terazosin 1 mg PO DAILY 02/19/19 02/21/19 History torsemide 20 mg PO DAILY 02/19/19 02/21/19 History Allergies Allergy/AdvReac Type Severity Reaction Status Date / Time acetaminophen Allergy Unverified 02/21/19 04:14 [From Tylenol-Codeine] codeine phosphate Allergy Unverified 02/21/19 04:14 [From Tylenol-Codeine] Exam Const General: cooperative, acute distress mild and respiratory, disheveled and ill appearing chronically Nutritional Appearance: obese morbidly obese Orientation: alert, awake and oriented x3 HENMT Head: normal to inspection, no palpable skull fracture, normocephalic and atraumatic General nose exam: external nose normal and nares normal Face and sinus: normal facial exam and sinuses nontender Teeth and gingiva: poor dentition Neck Neck: normal visual inspection, full ROM, no lymphadenopathy, trachea midline, supple and no JVD Carotids: normal carotid upstroke Lymphatic: no lymphadenopathy noted Chest Chest: normal palpation of entire chest wall and abnormal inspection of the chest barrel chest Resp Effort & Inspection: able to speak in complete sentences, cough Quality of cough: dry and tachypneic Auscultation: diminished lung sounds bilaterally throughout and rales bilaterally at the base Percussion: percussion normal Cardio Jugular venous pressure: no JVD Palpation: normal PMI Rate: tachycardic Rhythm: regular rhythm Heart Sounds: S1 normal, S2 normal and no murmurs Pulses: normal peripheral pulses GI Inspection: distended and obesity Palpation: soft Percussion: normal to percussion Auscultation: normal bowel sounds Back/Spine/Pelvis Back: no CVA tenderness Cervical Spine: normal cervical lordosis Thoracic/Lumbar Spine: thoracic and lumbar spine normal to inspection Skin General skin exam: no rashes or lesions noted, elasticity normal and turgor normal Neuro General: alert, awake, oriented x3, moves all extremities and no focal motor deficits Cognition: normal cognition Speech: speech normal Motor: muscle tone normal throughout, strength 5/5 throughout and no movement abnormalities noted Sensory Exam: no sensory deficits noted Extrem General: normal to inspection, full ROM, normal capillary refill, no joint enlargement, no calf tenderness and pedal edema bilaterally (1+) Psych Appearance: grossly normal Mental Status: mental status grossly normal Speech and Movement: speech and movement normal Mood: congruent mood Affect: normal affect Attitude: cooperative Thought Process: normal Thought Content: normal Insight: insight good Judgment: judgment good Results Imaging Chest x-ray: report reviewed (FINDINGS: Lungs: Mild to moderate pulmonary vascular congestion. Emphysematous changes. Pleural space: No pneumothorax. No sizable pleural effusion. Heart/Mediastinum: Cardiomegaly. Bones/joints: Unremarkable. IMPRESSION: Mild to moderate pulmonary vascular congestion. ) and image reviewed (cardiomegaly and diffuse pulmonary edema w/out overt pleural effusions) EKG: image reviewed (SR 90 bpm w/ old anterior NC and new ST depression in V5, V6; lot of baseline artifact in I, aVL, aVF, II, III) Labs : 02/21/19 03:50 02/21/19 03:50 Laboratory Results - last 24 hr 02/21/19 02/21/19 02/21/19 03:50 03:50 03:50 WBC 22.72 H RBC 5.68 Hgb 11.2 L Hct 33.9 L MCV 59.7 L MCH 19.7 L MCHC 33.0 RDW 19.6 H Plt Count 441 H MPV 9.4 Immature Gran % 0.7 Neutrophils % 83.3 Lymphocytes % 9.5 Monocytes % 6.3 Eosinophils % 0.1 Basophils % 0.1 Absolute Neutrophils 18.93 H Absolute Lymphocytes 2.16 Absolute Monocytes 1.43 H Absolute Eosinophils 0.02 Absolute Basophils 0.02 PT 9.1 L INR 0.9 APTT 19.9 L Sodium 141 Potassium 3.5 Chloride 103 Carbon Dioxide 26.1 Anion Gap 11.9 H BUN 40 H D Creatinine 1.93 H Estimated GFR/1.73 m2 35.01 Glucose 93 Calcium 10.1 Magnesium 2.0 Total Bilirubin 0.9 AST 20 ALT 22 Alkaline Phosphatase 95 Troponin I 0.61 H* NT-Pro-B Natriuret Pep 4193 H Total Protein 7.6 Albumin 3.7 Last Vital Signs Temp 37.5 C 02/21/19 03:42 Pulse 97 H 02/21/19 05:58 Resp 18 02/21/19 06:00 BP 174/73 H 02/21/19 05:58 Pulse Ox 92 L 02/21/19 06:00
--- NOTE | 2019-02-21 06:26 | HPE_ITS ---
Date of service: 02/21/19 Time of Service: 06:11 Assessment and Plan (1) Non-STEMI (non-ST elevated myocardial infarction): Current visit: Yes Status: Acute Continue Plavix and aspirin for antiplatelet therapy along with systemic heparin. Titrate nitroglycerin drip for blood pressure control as well as for any ischemic pain. Continue supportive care with oxygen. Will give beta- blockers for his tachycardia and LA. Patient has been accepted to [facility] to the service of Dr. Tez Avila and apparently transfer is imminent this morning. Further evaluation will be obtained at [facility] including echo and or cardiac cath. Clinically he is stable at this time although his blood pressure remains elevated in the 160-170 range. Patient just received his Lopressor dose which I had ordered in the emergency room at the time of admission. We will continue to titrate his nitroglycerin drip. I have continued his iv lasix for his acute CHF. (2) Acute systolic CHF (congestive heart failure): Current visit: Yes Status: Acute continue lasix iv along w/ iv NTG, consider ISHAN-I or ARB although his CTA of his chest and abdomen in 01/07/2019 demonstrated hypertrophy of his right kidney and atrophied left kidney along w/ atherosclerotic changes in his aorta and branch vessels and renals, therefore he may have MELANI. For now I would hold on ISHAN-I and ARB but titrate his NTG and switch his Toprol XL to carvedilol. I did bedside POCUS and found he has moderate LV dysfunction w/ apical/lateral hypokinesis however a formal echo will be needed and I ordered one for this a.m. but he is being imminently transferred to [facility] this a.m. (3) Chronic renal failure: Current visit: Yes Status: Chronic etiology is unclear but given his disparity in his renal size, I suspect he has renovascular disease and his longstanding HTN has contributed to his CKD. His baseline creatinine is around 1.7 to 1.8. For now I will avoid ISHAN-I or ARB but use vasodilators and BB to control his BP. History of Present Illness Chief Complaint: shortness of breath Narrative: 68 yr old male former smoker w/ PMH COPD, HTN, HLD who presented to the ER on 02/19/2018 w/ c/o 3d of nonproductive cough, dyspnea despite use of his inhalers, not associated w/ CP, fever or chills. Workup in the ER included CXR, EKG, labs.He was diagnosed w/ COPD exacerbation, given aerosolized bronchodilators, corticosteroids and discharged on a course of prednisone and doxycycline. This a.m. he presented to the ER with worsening dyspnea and non-productive cough. Initially he told Dr. Cuevas in the ER that he did not have any CP but later admitted to some chest burning intermittently for a few days and having orthopnea. On arrival he was tachypneic and Dr. Cuevas found that he had diffuse wheezing and rhonchi bilaterally along with basilar rales. Bedside POCUS revealed diffuse B lines. Pulmonary edema was suspected and confirmed on CXR. EKG this a.m. demonstrated SR at 90 bpm with evidence of old anterior LA, peaked T waves across precordium and new ST depresssion in lateral leads V5, V6; baseline artifact in other leads (I, aVL, II, III, aVF). Labs revealed elevated BNP [id number], and elevated troponin of 0.61 and worsening renal function w/ BUN 40, creatinine of 1.[address] Cuevas spoke w/ [facility] ultrasound technician and was advised that there are no beds available but recommended Plavix and to keep the patient here until a bed becomes available later today at [facility]. The patient was started on heparin drip and NTG drip (not so much for CP but for elevated BP in the 180-190. He was given lasix 40 mg IV, ASA 324 mg. Prior to dx of NSTEMI and CHF he had been given DuoNeb aerosol and solumedrol 125 mg IV. He is now being admitted to ICU for treatment of acute CHF and NSTEMI. Review of Systems Constitutional Reports as per HPI, Denies chills, Reports fatigue and Denies fever(s) Eyes Reports system reviewed and no additional complaints, except as docu ENT Reports system reviewed and no additional complaints, except as docu Cardiovascular Reports as per HPI, Reports chest pain at rest, Denies leg edema, Reports dyspnea, Reports dyspnea on exertion, Reports orthopnea and Reports paroxysmal nocturnal dyspnea Respiratory Reports as per HPI, Reports cough (Nonproductive), Reports dyspnea and Reports dyspnea on exertion Gastrointestinal Reports bloating, Reports constipation and Reports heartburn Genitourinary Reports system reviewed and no additional complaints, except as docu Musculoskeletal Reports system reviewed and no additional complaints, except as docu Integumentary/Breasts Reports system reviewed and no additional complaints, except as docu Neurologic Reports system reviewed and no additional complaints, except as docu Psychiatric Reports system reviewed and no additional complaints, except as docu Endocrine Reports system reviewed and no additional complaints, except as docu and Reports fatigue Hematologic/Lymphatic Reports system reviewed and no additional complaints, except as docu Allergic/Immunologic Reports system reviewed and no additional complaints, except as docu PFSH Medical History Alcoholism in recovery (Chronic) COPD (chronic obstructive pulmonary disease) (Chronic) Essential hypertension (Chronic) Hyperlipidemia (Chronic) Hypospadias in male (Resolved) Surgical History History of phacoemulsification of cataract of both eyes with intraocular lens implantation (Resolved) History of tonsillectomy (Resolved) Social History Smoking/Tobacco Use Status: Former Tobacco Use Quit Date: 01/11/17 Alcohol Intake: former Year quit: 2016 Details: Former alcoholic up to 2 cases of gin per month Substance use type: does not use Number of Children: 0 Pets and animals: Yes Pets and animals: dog(s) What is your relationship status?: Panel score (0-1 are the most socially isolated patients): 1 Do you feel safe at home: Yes Do you feel safe in your relationship?: Yes Meds Home Medications Medication Instructions Recorded Confirmed Type albuterol sulfate [ProAir HFA] 2 puff INHALATION Q4H PRN PRN #1 04/29/17 02/21/19 Rx inh rosuvastatin [Crestor] 10 g PO .QHS 04/29/17 02/21/19 History amlodipine 10 mg PO DAILY 02/19/19 02/21/19 History doxycycline hyclate 100 mg PO BID #20 cap 02/19/19 02/21/19 Rx glycopyrrolate-formoterol [Bevespi 2 puff INHALATION QAM AND QPM 02/19/19 02/21/19 History Aerosphere] ipratropium-albuterol 3 ml IH Q6H #90 ml 02/19/19 02/21/19 Rx metoprolol succinate [Toprol XL] 50 mg PO DAILY 02/19/19 02/21/19 History minoxidil 5 mg PO DAILY 02/19/19 02/21/19 History polyethylene glycol 3350 [GlycoLax] 17 g PO DAILY PRN 02/19/19 02/21/19 History prednisone 50 mg PO DAILY #5 tab 02/19/19 02/21/19 Rx terazosin 1 mg PO DAILY 02/19/19 02/21/19 History torsemide 20 mg PO DAILY 02/19/19 02/21/19 History Allergies Allergy/AdvReac Type Severity Reaction Status Date / Time acetaminophen Allergy Unverified 02/21/19 04:14 [From Tylenol-Codeine] codeine phosphate Allergy Unverified 02/21/19 04:14 [From Tylenol-Codeine] Exam Const General: cooperative, acute distress mild and respiratory, disheveled and ill appearing chronically Nutritional Appearance: obese morbidly obese Orientation: alert, awake and oriented x3 HENMT Head: normal to inspection, no palpable skull fracture, normocephalic and atraumatic General nose exam: external nose normal and nares normal Face and sinus: normal facial exam and sinuses nontender Teeth and gingiva: poor dentition Neck Neck: normal visual inspection, full ROM, no lymphadenopathy, trachea midline, supple and no JVD Carotids: normal carotid upstroke Lymphatic: no lymphadenopathy noted Chest Chest: normal palpation of entire chest wall and abnormal inspection of the chest barrel chest Resp Effort & Inspection: able to speak in complete sentences, cough Quality of cough: dry and tachypneic Auscultation: diminished lung sounds bilaterally throughout and rales b ilaterally at the base Percussion: percussion normal Cardio Jugular venous pressure: no JVD Palpation: normal PMI Rate: tachycardic Rhythm: regular rhythm Heart Sounds: S1 normal, S2 normal and no murmurs Pulses: normal peripheral pulses GI Inspection: distended and obesity Palpation: soft Percussion: normal to percussion Auscultation: normal bowel sounds Back/Spine/Pelvis Back: no CVA tenderness Cervical Spine: normal cervical lordosis Thoracic/Lumbar Spine: thoracic and lumbar spine normal to inspection Skin General skin exam: no rashes or lesions noted, elasticity normal and turgor normal Neuro General: alert, awake, oriented x3, moves all extremities and no focal motor deficits Cognition: normal cognition Speech: speech normal Motor: muscle tone normal throughout, strength 5/5 throughout and no movement abnormalities noted Sensory Exam: no sensory deficits noted Extrem General: normal to inspection, full ROM, normal capillary refill, no joint enlargement, no calf tenderness and pedal edema bilaterally (1+) Psych Appearance: grossly normal Mental Status: mental status grossly normal Speech and Movement: speech and movement normal Mood: congruent mood Affect: normal affect Attitude: cooperative Thought Process: normal Thought Content: normal Insight: insight good Judgment: judgment good Results Imaging Chest x-ray: report reviewed (FINDINGS: Lungs: Mild to moderate pulmonary vascular congestion. Emphysematous changes. Pleural space: No pneumothorax. No sizable pleural effusion. Heart/Mediastinum: Cardiomegaly. Bones/joints: Unremarkable. IMPRESSION: Mild to moderate pulmonary vascular congestion. ) and image reviewed (cardiomegaly and diffuse pulmonary edema w/out overt pleural effusions) EKG: image reviewed (SR 90 bpm w/ old anterior LA and new ST depression in V5, V6; lot of baseline artifact in I, aVL, aVF, II, III) Labs : 02/21/19 03:50 02/21/19 03:50 Laboratory Results - last 24 hr 02/21/19 02/21/19 02/21/19 03:50 03:50 03:50 WBC 22.72 H RBC 5.68 Hgb 11.2 L Hct 33.9 L MCV 59.7 L MCH 19.7 L MCHC 33.0 RDW 19.6 H Plt Count 441 H MPV 9.4 Immature Gran % 0.7 Neutrophils % 83.3 Lymphocytes % 9.5 Monocytes % 6.3 Eosinophils % 0.1 Basophils % 0.1 Absolute Neutrophils 18.93 H Absolute Lymphocytes 2.16 Absolute Monocytes 1.43 H Absolute Eosinophils 0.02 Absolute Basophils 0.02 PT 9.1 L INR 0.9 APTT 19.9 L Sodium 141 Potassium 3.5 Chloride 103 Carbon Dioxide 26.1 Anion Gap 11.9 H BUN 40 H D Creatinine 1.93 H Estimated GFR/1.73 m2 35.01 Glucose 93 Calcium 10.1 Magnesium 2.0 Total Bilirubin 0.9 AST 20 ALT 22 Alkaline Phosphatase 95 Troponin I 0.61 H* NT-Pro-B Natriuret Pep 4193 H Total Protein 7.6 Albumin 3.7 Last Vital Signs Temp 37.5 C 02/21/19 03:42 Pulse 97 H 02/21/19 05:58 Resp 18 02/21/19 06:00 BP 174/73 H 02/21/19 05:58 Pulse Ox 92 L 02/21/19 06:00
[2019-02-21 07:16] LABS: Troponin I 0.91 ng/mL (0.00-0.06)
[2019-02-21] MEDS: Metoprolol 5 MG/5 ML VIAL IVP (07:58)
--- NOTE | 2019-02-21 09:00 | MERGE_ITS ---
*[facility]* *[facility]* [address] [place] [address] Date of study: 02/21/2019 Transthoracic Echocardiography M-mode, complete 2D, complete spectral Doppler, and color Doppler *STUDY CONCLUSIONS* Summary: 1. Left ventricle: The cavity size was normal. Wall thickness was increased in a pattern of moderate LVH. Systolic function was hyperdynamic. The estimated ejection fraction was 65-70%. Findings consistent with diastolic dysfunction. Doppler parameters are consistent with high ventricular filling pressure. 2. Mitral valve: There was mild to moderate regurgitation. 3. Left atrium: The atrium was mildly dilated. 4. Right ventricle: The cavity size was normal. Wall thickness was normal. Systolic function was normal. 5. Right atrium: The atrium was mildly dilated. 6. Pulmonary arteries: Pulmonary systolic pressure was in the range of 50mm Hg to 60mm Hg. 7. Inferior vena cava: The vessel was patent and normal in size. The respirophasic diameter changes were in the normal range (greater than or equal to 50%), consistent with normal central venous pressure. *PATIENT PRESENTATION* Height: 172.7cm ((68in) ) S/D Pressure: 165 / 77 Weight: 107kg ((235.5lb) ) BSA: 2.31m^2 Test start time: 09:00 AM. Test stop time: 10:00 AM. PERFORMING Unknown PERFORMING [facility] CONSULTING Stevan Hall ORDERING Stevan Hall REFERRING Stevan Hall HE[employer] SOCIAL WORK PROFESSOR Edilia Miller, RT (R)(CT), RDCS REFERRING [facility] [place], Film Library *PROCEDURE DATA* Procedure information: The patient was identified by two identifiers. This study was interpreted by [facility]. Pertinent images and digital data are archived for permanent storage and are available for subsequent review. No prior study was available for comparison. Study status: STAT. Transthoracic echocardiography. M-mode, complete 2D, complete spectral Doppler, and color Doppler. A Transthoracic Echocardiogram was performed. Scanning was performed from the parasternal, apical, subcostal, and suprasternal notch acoustic windows. Images were obtained using an [id number] cardiac ultrasound machine. Image quality was adequate. Study completion: The patient tolerated the procedure well. History: PMH: NSTEMI CHF. *CARDIAC ANATOMY* Left ventricle: The cavity size was normal. Wall thickness was increased in a pattern of moderate LVH. Systolic function was hyperdynamic. The estimated ejection fraction was 65-70%. The tissue Doppler parameters were abnormal. Findings consistent with diastolic dysfunction. Doppler parameters are consistent with high ventricular filling pressure. Aortic valve: Doppler: There was no stenosis. There was no regurgitation. VTI ratio of LVOT to aortic valve: 0.7. Valve area (VTI): 1.9cm^2. Indexed valve area (VTI): 0.8cm^2/m^2. Peak velocity ratio of LVOT to aortic valve: 0.7. Valve area (Vmax): 2cm^2. Indexed valve area (Vmax): 0.8cm^2/m^2. Mean velocity ratio of LVOT to aortic valve: 0.8. Valve area (Vmean): 2.2cm^2. Indexed valve area (Vmean): 1cm^2/m^2. Mean gradient (S): 6.3mm Hg. Peak gradient (S): 10mm Hg. Aorta: Aortic root: The aortic root was normal in size. Ascending aorta: The ascending aorta was normal in size. Mitral valve: Doppler: There was no evidence for stenosis. There was mild to moderate regurgitation. Valve area by pressure half-time: 3.5cm^2. Indexed valve area by pressure half-time: 1.5cm^2/m^2. Peak gradient (D): 6.5mm Hg. Left atrium: The atrium was mildly dilated. Atrial septum: Poorly visualized. Right ventricle: The cavity size was normal. Wall thickness was normal. Systolic function was normal. Pulmonic valve: Doppler: There was no evidence for stenosis. There was no significant regurgitation. Tricuspid valve: Doppler: There was mild regurgitation. Pulmonary artery: Poorly visualized. Pulmonary systolic pressure was in the range of 50mm Hg to 60mm Hg. Right atrium: The atrium was mildly dilated. Pericardium: There was no significant pericardial effusion. Systemic veins: Inferior vena cava: Well visualized. The vessel was patent and normal in size. The respirophasic diameter changes were in the normal range (greater than or equal to 50%), consistent with normal central venous pressure. Baseline ECG: Normal sinus rhythm. Measurements Left ventricle Value Reference LV ID, ED, PLAX 5.6 cm 3.5 - 6.0 LV ID, ES, PLAX 3.6 cm 2.1 - 4.0 LV PW thickness, ED, PLAX 1.2 cm LV end-diastolic volume, 1-p A2C 117 ml LV ejection fraction, 1-p A2C 71 % LV end-diastolic volume, 1-p A4C 125 ml LV ejection fraction, 1-p A4C 67 % LV e', lateral 0.099 m/sec LV E/e', lateral 13 LV e', medial 0.062 m/sec LV E/e', medial 21 LV e', average 0.08 m/sec LV E/e', average 16 Ventricular septum Value Reference IVS thickness, ED, PLAX 1.4 cm LVOT Value Reference LVOT ID, A-P 1.9 cm LVOT area 2.8 cm^2 LVOT peak velocity, S 1.1 m/sec LVOT mean velocity, S 0.97 m/sec LVOT VTI, S 23.7 cm LVOT peak gradient, S 4.9 mm Hg LVOT mean gradient, S 3.8 mm Hg Stroke volume (SV), LVOT DP 66 ml Stroke index (SV/bsa), LVOT DP 29 ml/m^2 Aortic valve Value Reference Aortic valve peak velocity, S 1.6 m/sec Aortic valve mean velocity, S 1.22 m/sec Aortic valve VTI, S 34.0 cm Aortic mean gradient, S 6.3 mm Hg Aortic peak gradient, S 10 mm Hg VTI ratio, LVOT/AV 0.7 Aortic valve area, VTI 1.9 cm^2 Velocity ratio, peak, LVOT/AV 0.7 Aortic valve area, peak velocity 2 cm^2 Velocity ratio, mean, LVOT/AV 0.8 Aortic valve area, mean velocity 2.2 cm^2 Aortic valve area/bsa, mean velocity 1 cm^2/m^2 Aorta Value Reference Aortic root ID, ED 3.4 cm Ascending aorta ID, A-P, S 3.4 cm Left atrium Value Reference LA ID, A-P, ES 5.3 cm LA ID/bsa, A-P (H) 2.3 cm/m^2 <=2.2 LA area, ES, A4C (H) 24.9 cm^2 8.8 - 23.4 LA area, ES, A2C 24 cm^2 LA volume/bsa, ES, 1-p A4C 40 ml/m^2 LA volume, ES, 2-p 82 ml LA volume/bsa, ES, 2-p 36 ml/m^2 LA/aortic root ratio 1.54 Mitral valve Value Reference Mitral E-wave peak velocity 1.28 m/sec Mitral A-wave peak velocity 0.7 m/sec Mitral deceleration time 215 ms 150 - 230 Mitral pressure half-time 62 ms Mitral peak gradient, D 6.5 mm Hg Mitral E/A ratio, peak 1.82 Mitral valve area, PHT, DP 3.5 cm^2 Tricuspid valve Value Reference Tricuspid regurg peak velocity 3.4 m/sec Tricuspid peak RV-RA gradient 46.4 mm Hg Right atrium Value Reference RA area, ES, A4C (H) 22.4 cm^2 8.3 - 19.5 Legend: (L) and (H) pina values outside specified reference range. I have personally reviewed the images and have reviewed and edited the reported findings. Electronically signed by Paul Weiner MD 02/21/2019 13:51
[2019-02-21] MEDS: Potassium Chloride 10 MEQ TABCR 20 MEQ PO (10:03)
[2019-02-21] MEDS: Carvedilol 6.25 MG TAB PO (10:04)
[2019-02-21 11:35] LABS: Anion Gap 15.1 mmol/L (3-11); BUN 41 mg/dL (7-18); CO2 22.9 mmol/L (21.0-32.0); CREATININE 2.17 mg/dL (0.70-1.30); Calcium 9.5 mg/dL (8.5-10.1); Chloride 102 mmol/L (98-107); Estimated GFR 30.58 (mL/min/1.73m2); Glucose 136 mg/dL (70-100); Potassium 4.2 mmol/L (3.5-5.1); Sodium 140 mmol/L (136-145)
[2019-02-21 11:40] LABS: Troponin I 0.86 ng/mL (0.00-0.06)
== END 2019-02-21 10:20 | disposition short-term general hospital (02) | DRG 281 ==
LOC: ER 05:50 → ICU 06:50
PROVIDERS: Admitting Provider Internal Medicine; Emergency Provider Emergency Medicine; PCP Internal Medicine; Visit Provider Internal Medicine
DX: I50.21 Acute systolic (congestive) heart failure (principal); I21.4 Non-ST elevation (NSTEMI) myocardial infarction; I13.0 Hypertensive heart and chronic kidney disease with heart failure and stage 1 through stage 4 chronic kidney disease, or unspecified chronic kidney disease; N18.9 Chronic kidney disease, unspecified; E66.01 Morbid (severe) obesity due to excess calories; Z68.32 Body mass index [BMI] 32.0-32.9, adult; N28.81 Hypertrophy of kidney; N26.1 Atrophy of kidney (terminal); I70.1 Atherosclerosis of renal artery; J44.9 Chronic obstructive pulmonary disease, unspecified; R06.01 Orthopnea; I05.1 Rheumatic mitral insufficiency; I51.7 Cardiomegaly; Z87.891 Personal history of nicotine dependence
CPT/HCPCS: 36415; 80048; 80053; 87449; 93005; 93306; 94640; 96365; 96366; 96376; 99285; 99291; 71045; 83036; 83735; 83880; 84484; 85025; 85610; 85730; 93010; J1940; J2930; J3490; J7620

== ENCOUNTER 2019-04-03 12:10 | Outpatient (RCR) | payer OTHER, SELFPAY | END 2019-04-12 23:59 | disposition home or self-care (01) | LOC: CR 12:10 | PROVIDERS: PCP Internal Medicine; Visit Provider Family Medicine | DX: I25.2 Old myocardial infarction (principal); Z95.5 Presence of coronary angioplasty implant and graft; I50.30 Unspecified diastolic (congestive) heart failure; Z51.89 Encounter for other specified aftercare | CPT/HCPCS: S9472 ==

== ENCOUNTER 2019-04-24 11:57 | Outpatient (RCR) | payer OTHER, SELFPAY | END 2019-05-12 23:59 | disposition home or self-care (01) | LOC: CR 11:57 | PROVIDERS: PCP Internal Medicine; Visit Provider Family Medicine | DX: I25.2 Old myocardial infarction (principal); Z95.5 Presence of coronary angioplasty implant and graft; I50.30 Unspecified diastolic (congestive) heart failure; Z51.89 Encounter for other specified aftercare | CPT/HCPCS: S9472 ==

== ENCOUNTER 2019-05-07 10:20 | Outpatient (REF) | payer OTHER, SELFPAY ==
[2019-05-07 12:47] LABS: Anion Gap 13.6 mmol/L (3-11); BUN 27 mg/dL (7-18); CO2 26.4 mmol/L (21.0-32.0); CREATININE 1.68 mg/dL (0.70-1.30); Calcium 9.4 mg/dL (8.5-10.1); Chloride 101 mmol/L (98-107); Estimated GFR 41.08 (mL/min/1.73m2); Glucose 91 mg/dL (70-100); Potassium 4.3 mmol/L (3.5-5.1); Sodium 141 mmol/L (136-145)
[2019-05-07 14:15] LABS: Calculated LDL 37; Cholesterol 116 mg/dL (50-200); HDL Cholesterol 32 mg/dL (40-60); Triglyceride 235 mg/dL (30-150)
== END 2019-05-07 10:40 ==
LOC: NCHCN 10:20
PROVIDERS: PCP Internal Medicine; Visit Provider Internal Medicine
DX: I10 Essential (primary) hypertension (principal); N18.3 Chronic kidney disease, stage 3 (moderate)
CPT/HCPCS: 80048; 80061; 83721

== ENCOUNTER 2019-05-10 20:46 | Inpatient (IN) | payer OTHER, SELFPAY ==
[2019-05-10] VITALS (23 sets, daily range): BP systolic 157–187; BP diastolic 68–89; PULSE 54–70; RESP 8–23; TEMP 37; O2SAT 92–98
--- NOTE | 2019-05-10 21:01 | ED.GENADUL_ITS ---
Discharge Plan Disposition Patient Disposition: [facility] INPATIENT Condition: Fair Discharge Details Chief Complaint: RespSymp Clinical Impression: Asthma exacerbation in COPD, Opacity of lung on imaging study Primary Care Provider: Bryant Watkins ED Provider: Everardo Anderson [place] Meds and New Rx's Prescriptions: No Action carvedilol 12.5 mg Tablet 12.5 mg PO BID RF: 0 clopidogrel [Plavix] 75 mg Tablet 75 mg PO DAILY RF: 0 aspirin [Aspir-81] 81 mg Tablet,Delayed Release (Dr/Ec) 81 mg PO DAILY RF: 0 pantoprazole 40 mg Tablet,Delayed Release (Dr/Ec) 40 mg PO DAILY RF: 0 bupropion HCl 150 mg Tablet Extended Release 24 Hr 150 mg PO QAM RF: 0 rosuvastatin [Crestor] 10 MG tablet 10 g PO .QHS RF: 0 albuterol sulfate [ProAir HFA] 200 PUFF HFA aerosol inhaler 2 puff Inhalation Q4H PRN PRNQty: 1 RF: 0 torsemide 20 mg Tablet 20 mg PO DAILY RF: 0 terazosin 1 mg Capsule 1 mg PO DAILY RF: 0 amlodipine 10 mg Tablet 10 mg PO DAILY RF: 0 polyethylene glycol 3350 [GlycoLax] 17 gram/dose Powder 17 g PO DAILY PRNRF: 0 Bevespi Aerosphere 9-4.8 mcg Hfa Aerosol Inhaler 2 puff INHALATION QAM AND QPM RF: 0 ipratropium-albuterol 0.5 mg-3 mg(2.5 mg base)/3 mL solution for nebulization 3 ml IH Q6H Qty: 90 RF: 0 doxycycline hyclate 100 mg capsule 100 mg PO BID Qty: 20 RF: 0 Medical Decision Making Patient here with shortness of breath. Most likely COPD exacerbation but has history of non-STEMI and CHF that presented with shortness of breath. Will give DuoNeb and albuterol. Will obtain EKG and labs including BNP. Will obtain chest x-ray. If cardiac work-up negative will give steroids and reevaluate. Patient's EKG shows nothing acute. He did feel better after the DuoNeb. He felt like the albuterol maybe made him worse. However, on listening to his lungs, he actually seems to have better air exchange but increased wheezing. Laboratory studies significant for baseline anemia and baseline chronic kidney disease. His white count is normal. His electrolytes are good. His troponin is negative. His BNP is elevated at 1165 but previously was higher this spring with his non-STEMI. At this point I do not think his symptoms are cardiac related. I think this is a COPD exacerbation. He is given steroids. Chest x- ray shows a right nodular infiltrate. He will need CT scan at some point to evaluate for possible lung cancer. Will cover with ceftriaxone in addition to the doxycycline he has already been started on. Case discussed with hospitalist. Patient to be admitted for further management of COPD exacerbation and nodular opacity. Medical Records Medical records reviewed: Yes I reviewed the patient's medical records. Imaging Data Radiologic Study: Imaging: X-Ray Radiologist's impression: TECHNIQUE: Imaging protocol: XR of the chest, 1 view. COMPARISON: SC XR PORTABLE CHEST AP 02/21/2019 3:59 AM FINDINGS: Lungs: Nodular opacity measuring 2 cm in diameter in the right lower lung field. Pleural space: Unremarkable. No evidence of pneumothorax. Heart/Mediastinum: Unremarkable. Heart size within normal limits for technique. Bones/joints: Unremarkable. IMPRESSION: Nodular opacity measuring 2 cm in diameter in the right lower lung field. Suggest nonemergent chest CT. Dictated and Authenticated by: Bryant Vogel MD. Lab Data Lab results reviewed: Yes I reviewed the patient's lab results. ECG Data Attestation: I personally reviewed and interpreted this ECG (s) as follows: Prior ECG tracings: not available for review Interpretation: Sinus rhythm at 60. Normal axis and intervals. No acute ST elevation. Poor R wave progression over septal leads. Nonspecific ST changes per HPI General Mode of arrival: ambulatory . Date/Time Provider Initiated Documentation: 05/10/19 20:47 . Limitations to Documentation: no limitations . Information obtained by: patient, family, RN notes reviewed and old records reviewed . HPI Narrative: Patient presents to ED with increasing shortness of breath. He reports developing a cold about 3 days ago with some congestion and cough. He saw his primary care doctor yesterday and was put on doxycycline. Subsequently overnight he has had increasing shortness of breath. He is unable to perform any activity without difficulty breathing. He denies having any chest pain or pressure. He denies fevers. He does continue to have cough. He is unable to lie down at this point because of trouble breathing. He denies any change in urination. He does report a heart attack this spring. States at that point he did not have chest pain either. Nebulizer at home helps for short period of time. Related Data Home Medications Medication Instructions Recorded Confirmed albuterol sulfate [ProAir HFA] 2 puff INHALATION Q4H PRN PRN #1 04/29/17 inh rosuvastatin [Crestor] 10 g PO .QHS 04/29/17 05/10/19 amlodipine 10 mg PO DAILY 02/19/19 05/10/19 doxycycline hyclate 100 mg PO BID #20 cap 02/19/19 05/10/19 glycopyrrolate-formoterol [Bevespi 2 puff INHALATION QAM AND QPM 02/19/19 05/10/19 Aerosphere] ipratropium-albuterol 3 ml IH Q6H #90 ml 02/19/19 05/10/19 polyethylene glycol 3350 [GlycoLax] 17 g PO DAILY PRN 02/19/19 05/10/19 terazosin 1 mg PO DAILY 02/19/19 05/10/19 torsemide 20 mg PO DAILY 02/19/19 05/10/19 aspirin [Aspir-81] 81 mg PO DAILY 05/10/19 05/10/19 bupropion HCl 150 mg PO QAM 05/10/19 05/10/19 carvedilol 12.5 mg PO BID 05/10/19 05/10/19 clopidogrel [Plavix] 75 mg PO DAILY 05/10/19 05/10/19 pantoprazole 40 mg PO DAILY 05/10/19 05/10/19 Previous Rx's Medication Instructions Recorded albuterol sulfate [ProAir HFA] 2 puff INHALATION Q4H PRN PRN #1 04/29/17 inh doxycycline hyclate 100 mg PO BID #20 cap 02/19/19 ipratropium-albuterol 3 ml IH Q6H #90 ml 02/19/19 Allergies Allergy/AdvReac Type Severity Reaction Status Date / Time acetaminophen Allergy Unverified 05/10/19 20:52 [From Tylenol-Codeine] codeine phosphate Allergy Unverified 05/10/19 20:52 [From Tylenol-Codeine] General Stated Complaint: RespSymp DAISY: 3 Review of Systems Review of Systems 08/26 Review of Systems completed and is negative except as stated above in HPI (Systems reviewed: Const, Eyes, ENT, Resp, CV, GI, , MSK, Skin, Neuro) PFSH Medical History Non-STEMI (non-ST elevated myocardial infarction) (Chronic) Alcoholism in recovery (Chronic) CHF (congestive heart failure) (Chronic) CKD (chronic kidney disease) (Chronic) COPD (chronic obstructive pulmonary disease) (Chronic) Essential hypertension (Chronic) Hyperlipidemia (Chronic) Hypospadias in male (Resolved) Surgical History History of phacoemulsification of cataract of both eyes with intraocular lens implantation (Resolved) History of tonsillectomy (Resolved) Social History Smoking/Tobacco Use Status: Former Tobacco Use Quit Date: 01/11/17 Alcohol Intake: former Year quit: 2016 Details: Former alcoholic up to 2 cases of gin per month Substance use type: does not use Number of Children: 0 Pets and animals: Yes Pets and animals: dog(s) What is your relationship status?: Panel score (0-1 are the most socially isolated patients): 1 Do you feel safe at home: Yes Do you feel safe in your relationship?: Yes Exam Narrative Exam Narrative: Vitals: Afebrile with normal O2 saturation. Mild elevated blood pressure. Const: WDWN male in NAD. HEENT: NC/AT. Normal facial exam. Eyes: Normal conjunctiva and sclera. Neck: Supple. Trachea midline. Lungs: Mild increase in work of breathing with prolong expiratory phase. There are no rales. Some rhonchi in the left base. Some scattered wheezing. Cor: RRR without murmur/gallop. Good radial pulses. GI: Soft. NT/ND. No guarding or rebound. Neuro: A+O x 3. CN grossly in tact. Good strength and no focal deficit. Ext: No C/C. 1+ edema of LE. No deformity or tenderness. Skin: Warm and dry without rash. Course Vital Signs Temperature 98.6 F 05/10/19 20:48 Pulse 70 05/10/19 20:48 Respiratory Rate 20 05/10/19 20:48 Blood Pressure 159/76 H 05/10/19 20:48 Pulse Oximetry 95 05/10/19 20:48 Temperature 98.6 F 05/10/19 20:48 Temperature Source Skin 05/10/19 20:48 Pulse 70 05/10/19 20:48 Respiratory Rate 20 05/10/19 20:48 Respiratory Effort 05/10/19 20:51 Blood Pressure 159/76 H 05/10/19 20:48 Blood Pressure Position Sitting 05/10/19 20:48 Pulse Oximetry 95 05/10/19 20:48 Oxygen Delivery Method Room Air 05/10/19 20:48 Oxygen Flow Rate 0 05/10/19 20:48 Pain Level 0 05/10/19 20:48
[2019-05-10] MEDS: Albuterol/Ipratropium 3 ML UPD VIAL UPD (21:13)
[2019-05-10] MEDS: Albuterol 2.5 MG/3 ML INH SOLN VIAL UPD (22:02)
[2019-05-10 22:23] LABS: Abs Immature Grans 0.02 k/cumm (0.0-0.09); Absolute Basophil Count 0.05 k/cumm (0.0-0.2); Absolute Eosinophil Count 0.41 k/cumm (0.0-0.7); Absolute Lymphocyte Count 1.81 k/cumm (1.2-3.4); Absolute Monocyte Count 1.01 k/cumm (0.11-0.7); Absolute Neutrophil Count 5.87 k/cumm (1.2-6.7); Basophils % 0.5; Eosinophils % 4.5; HCT 37.1 % (40.0-50.0); HGB 12.1 g/dL (13.5-17.5); Immature Grans % 0.2; Lymphocytes % 19.7; Mean Corp. HGB Concentration 32.6 g/dL (32.0-36.0); Mean Corpuscular Hemoglobin 19.3 pg (27.0-33.0); Mean Corpuscular Volume 59.3 fL (80-95); Mean Platelet Volume 9.4 fL (8.0-11.0); Neutrophils % 64.1; Platelet Count 334 x1000/uL (130-400); RBC 6.26 m/cumm (4.50-6.00); RBC Distribution Width 19.9 % (11.8-14.1); White Blood Cell Count 9.17 k/cumm (4.4-10.8)
--- NOTE | 2019-05-10 22:30 | DI.RAD_ITS ---
SYMPTOM/DIAGNOSIS: SOB PORTABLE CHEST: Comparison is made with 21 February 2019. The heart size is within normal limits for projection. A calcification is again seen at the right lower lung field. The lungs are otherwise clear. No infiltrate, effusion or pulmonary edema is seen. IMPRESSION: No acute abnormality. Right lower lung field granuloma.
[2019-05-10 22:36] LABS: ALT 21 U/L (12-78); AST 11 U/L (15-37); Alkaline Phosphatase 108 U/L (46-116); BUN 33 mg/dL (7-18); Bilirubin, Total 0.8 mg/dL (0.2-1.0); CREATININE 1.92 mg/dL (0.70-1.30); Calcium 9.4 mg/dL (8.5-10.1); Chloride 103 mmol/L (98-107); Estimated GFR 35.22 (mL/min/1.73m2); Glucose 102 mg/dL (70-100); Magnesium 2.3 mg/dL (1.8-2.4); NT-proBNP 1165 pg/mL; Potassium 4.4 mmol/L (3.5-5.1); Sodium 140 mmol/L (136-145); Total Protein 8.1 g/dL (6.4-8.2)
[2019-05-10 22:39] LABS: Troponin I < 0.05 ng/mL (0.00-0.06)
[2019-05-10 22:49] LABS: Anisocytosis 2+; Diff Comment RBC Morph Reviewed; Microcytosis 3+
--- NOTE | 2019-05-10 23:00 | DI.VRAD_ITS ---
EXAM: XR Chest, 1 View EXAM DATE/TIME: 05/10/2019 10:40 PM CLINICAL HISTORY: 68 years old, male; Shortness of breath; Patient HX: SOB TECHNIQUE: Imaging protocol: XR of the chest, 1 view. COMPARISON: SC XR PORTABLE CHEST AP 02/21/2019 3:59 AM FINDINGS: Lungs: Nodular opacity measuring 2 cm in diameter in the right lower lung field. Pleural space: Unremarkable. No evidence of pneumothorax. Heart/Mediastinum: Unremarkable. Heart size within normal limits for technique. Bones/joints: Unremarkable. IMPRESSION: Nodular opacity measuring 2 cm in diameter in the right lower lung field. Suggest nonemergent chest CT. Dictated and Authenticated by: Bryant Vogel MD. Ordering:MAGGIE Mcgee MD
[2019-05-10] MEDS: methylPREDNISolone SUCC 125 MG VIAL IVP (23:29)
[2019-05-10] MEDS: cefTRIAXone 1 GM/50 ML BAG IVPB (23:29)
--- NOTE | 2019-05-10 23:59 | HPE_ITS ---
Date of service: 05/10/19 Time of Service: 23:59 Assessment and Plan (1) COPD exacerbation: Start date: 05/10/19 Current visit: Yes Status: Acute This is a 68-year-old gentleman here for exacerbation of COPD not responding to outpatient therapy. He has had a recent non-STEMI which presented with shortness of breath during one of his exacerbations of respiratory status. He is a previous smoker and continues to wear NicoDerm 21 daily. He will be admitted for treatment of his exacerbation of COPD with IV Solu-Medrol and more aggressive nebulizer treatments. He does not appear to be having exacerbation of his cardiac status. (2) Pneumonia: Start date: 05/10/19 Current visit: Yes Status: Acute Chest x-ray does reveal a nodular density in his right lower lobe which is new from previous x-rays in February 2019. He will be continued on doxycycline and Rocephin IV will be added to his regimen. If this is not clear with follow-up chest x-ray after treatment of pneumonia and he should have a CT of the chest further evaluation. Qualifiers: Laterality: right Lung location: lower lobe of lung Pneumonia type: due to unspecified organism Qualified Code(s): J18.1 - Lobar pneumonia, unspecified organism (3) Acute systolic CHF (congestive heart failure): Current visit: No Status: Chronic This is a chronic problem and he will be continued on his outpatient medical therapy with monitoring for fluid overload during his hospital stay. (4) Chronic renal failure: Current visit: No Status: Chronic This is a chronic issue which appears to be stable and will be monitored during his hospital stay. Qualifiers: Chronic kidney disease stage: stage 3 (moderate) Qualified Code(s): N18.3 - Chronic kidney disease, stage 3 (moderate) (5) Non-STEMI (non-ST elevated myocardial infarction): Current visit: No Status: Chronic There is no evidence of acute ischemia and he will be monitored clinically without telemetry. His initial troponins and EKG were normal. History of Present Illness Chief Complaint: Progressive dyspnea Narrative: This is a 68-year-old gentleman who has a history of COPD quitting smoking 2 years ago. He does desirae nue to wear a NicoDerm patch daily since he had quit smoking. This spring he had a presentation of shortness of breath with resulting non-STEMI and subsequent cardiac catheterization and stenting with new onset of systolic CHF which is presently being treated at [facility]. The patient and his had a viral URI at the start of this week and his shortness of breath worsened the day of his presentation. He reported to the ED with concerns that his shortness of breath may be returning angina which is how his non-STEMI presented. In the ED he did not really respond to aggressive neurologic treatments and was given IV Solu-Medrol and admitted for treatment of his COPD exacerbation. He was already placed on doxycycline by his PMD during the week and Rocephin was added because of possible infiltrate in his right lower lobe which appeared as a nodular opacity. At this time I evaluated the patient the appeared comfortable but continued to have cough with wheeze and exertional dyspnea. He was denying chest pain. He does have a history of peripheral edema which improved on treatment for his CHF. He also has a history of CKD which he states was a consequence of the medication given by his PMD and improved after this medication was discontinued. This problem worsened again when he was hospitalized for his non-STEMI with the same medication restarted and is now being modified by his PMD. This appears to be stable and he has no urinary complaints. Review of Systems Review of Systems 13 point review of systems otherwise unrevealing or stable. [facility] Medical History Non-STEMI (non-ST elevated myocardial infarction) (Chronic) Alcoholism in recovery (Chronic) CHF (congestive heart failure) (Chronic) CKD (chronic kidney disease) (Chronic) COPD (chronic obstructive pulmonary disease) (Chronic) Essential hypertension (Chronic) Hyperlipidemia (Chronic) Hypospadias in male (Resolved) Surgical History History of phacoemulsification of cataract of both eyes with intraocular lens implantation (Resolved) History of tonsillectomy (Resolved) Family History Father Throat cancer Heart disease Myocardial infarction Brother Heart disease Social History Smoking/Tobacco Use Status: Former Tobacco Use Quit Date: 01/11/17 Alcohol Intake: former Year quit: 2016 Details: Former alcoholic up to 2 cases of gin per month Substance use type: does not use Number of Children: 0 Pets and animals: Yes Pets and animals: dog(s) What is your relationship status?: Panel score (0-1 are the most socially isolated patients): 1 Do you feel safe at home: Yes Do you feel safe in your relationship?: Yes Meds Home Medications Medication Instructions Recorded Confirmed Type albuterol sulfate [ProAir HFA] 2 puff INHALATION Q4H PRN PRN #1 04/29/17 05/10/19 Rx inh rosuvastatin [Crestor] 10 g PO .QHS 04/29/17 05/10/19 History amlodipine 10 mg PO DAILY 02/19/19 05/10/19 History doxycycline hyclate 100 mg PO BID #20 cap 02/19/19 05/10/19 Rx glycopyrrolate-formoterol [Bevespi 2 puff INHALATION QAM AND QPM 02/19/19 05/10/19 History Aerosphere] ipratropium-albuterol 3 ml IH Q6H #90 ml 02/19/19 05/10/19 Rx polyethylene glycol 3350 [GlycoLax] 17 g PO DAILY PRN 02/19/19 05/10/19 History terazosin 1 mg PO DAILY 02/19/19 05/10/19 History torsemide 20 mg PO DAILY 02/19/19 05/10/19 History aspirin [Aspir-81] 81 mg PO DAILY 05/10/19 05/10/19 History bupropion HCl 150 mg PO QAM 05/10/19 05/10/19 History carvedilol 12.5 mg PO BID 05/10/19 05/10/19 History clopidogrel [Plavix] 75 mg PO DAILY 05/10/19 05/10/19 History pantoprazole 40 mg PO DAILY 05/10/19 05/10/19 History Allergies Allergy/AdvReac Type Severity Reaction Status Date / Time acetaminophen Allergy Unverified 05/10/19 20:52 [From Tylenol-Codeine] codeine phosphate Allergy Unverified 05/10/19 20:52 [From Tylenol-Codeine] Exam Narrative Exam Narrative: General: Patient appears older than stated age and is in no acute distress, alert and oriented x3. He is moderately obese, especially on the trunk. HEENT: Normocephalic. Face has coarsened features. Eyes reveal pupils equal and reactive to light symmetrically, extraocular movement intact and sclera anicteric. Oropharynx with moist mucosa and poor dentition with missing teeth and discoloration of teeth. Neck: Supple without JVD. No auscultated carotid bruits. Back: Posture with no CVA tenderness. Lungs: Decreased aeration diffusely with increased expiratory phase and diffuse expiratory wheeze, bronchovesicular breath sounds diffusely without focalizing rales or rhonchi. No dullness to percussion. Heart: Bradycardic rate with normal rhythm and no appreciable murmurs or gallops. S1-S2 normal. Abdomen: Obese contour, soft and nontender to palpation without palpable hep atosplenomegaly or masses. Bowel sounds positive and normal in all quadrants. Genitalia/Rectal: Exam deferred. Extremities: Trace pitting edema over ankles and feet moderate nonpitting edema. No cyanosis or clubbing. Skin: Pale, warm and dry without rashes. Neuro: Cranial nerves II through XII grossly intact, motor without focalizing deficits and normal strength. DTRs physiologic and symmetrical. Results Imaging Imaging Studies: EXAM: XR Chest, 1 View EXAM DATE/TIME: 05/10/2019 10:40 PM CLINICAL HISTORY: 68 years old, male; Shortness of breath; Patient HX: SOB TECHNIQUE: Imaging protocol: XR of the chest, 1 view. COMPARISON: SC XR PORTABLE CHEST AP 02/21/2019 3:59 AM FINDINGS: Lungs: Nodular opacity measuring 2 cm in diameter in the right lower lung field. Pleural space: Unremarkable. No evidence of pneumothorax. Heart/Mediastinum: Unremarkable. Heart size within normal limits for technique. Bones/joints: Unremarkable. IMPRESSION: Nodular opacity measuring 2 cm in diameter in the right lower lung field. Suggest nonemergent chest CT. Dictated and Authenticated by: Bryant Vogel MD. EXAM: XR Chest, 1 View EXAM DATE/TIME: 02/21/2019 3:36 AM CLINICAL HISTORY: 68 years old, male; Signs and symptoms; Shortness of breath TECHNIQUE: Imaging protocol: XR of the chest, 1 view. COMPARISON: CR XR CHEST 2V PA LATERAL 02/19/2019 7:33 AM FINDINGS: Lungs: Mild to moderate pulmonary vascular congestion. Emphysematous changes. Pleural space: No pneumothorax. No sizable pleural effusion. Heart/Mediastinum: Cardiomegaly. Bones/joints: Unremarkable. IMPRESSION: Mild to moderate pulmonary vascular congestion. Dictated and Authenticated by: Davidson Pro MD. Ordering:DEVON Miller MD Labs : 05/10/19 21:10 05/10/19 21:10 Laboratory Results - last 24 hr 05/10/19 05/10/19 21:10 21:10 WBC 9.17 RBC 6.26 H Hgb 12.1 L Hct 37.1 L MCV 59.3 L MCH 19.3 L MCHC 32.6 RDW 19.9 H Plt Count 334 MPV 9.4 Immature Gran % 0.2 Neutrophils % 64.1 Lymphocytes % 19.7 Monocytes % 11.0 Eosinophils % 4.5 Basophils % 0.5 Absolute Neutrophils 5.87 Absolute Lymphocytes 1.81 Absolute Monocytes 1.01 H Absolute Eosinophils 0.41 Absolute Basophils 0.05 Differential Comment Rbc morph reviewed RBC Morphology See below Anisocytosis 2+ Microcytosis 3+ Sodium 140 Potassium 4.4 Chloride 103 Carbon Dioxide 27.0 Anion Gap 10.0 BUN 33 H Creatinine 1.92 H Estimated GFR/1.73 m2 35.22 Glucose 102 H Calcium 9.4 Magnesium 2.3 Total Bilirubin 0.8 AST 11 L ALT 21 Alkaline Phosphatase 108 Troponin I < 0.05 NT-Pro-B Natriuret Pep 1165 H Total Protein 8.1 Albumin 4.0 Last Vital Signs Temp 37.0 C 05/10/19 23:48 Pulse 56 L 05/10/19 23:01 Resp 14 05/10/19 23:30 BP 187/89 H 05/10/19 23:01 Pulse Ox 93 L 05/10/19 23:30
[2019-05-11] VITALS (9 sets, daily range): BP systolic 141–192; BP diastolic 63–76; PULSE 53–116; RESP 8–20; TEMP 36.4–37.1; O2SAT 93–98
[2019-05-11] MEDS: Albuterol/Ipratropium 3 ML UPD VIAL UPD ×5 (01:21→23:57)
[2019-05-11 08:41] LABS: ALT 20 U/L (12-78); AST 11 U/L (15-37); Albumin 3.8 g/dL (3.4-5.0); Alkaline Phosphatase 112 U/L (46-116); Anion Gap 9.5 mmol/L (3-11); BUN 30 mg/dL (7-18); Bilirubin, Total 0.9 mg/dL (0.2-1.0); CO2 25.5 mmol/L (21.0-32.0); CREATININE 1.78 mg/dL (0.70-1.30); Calcium 9.7 mg/dL (8.5-10.1); Chloride 103 mmol/L (98-107); Estimated GFR 38.43 (mL/min/1.73m2); Glucose 150 mg/dL (70-100); Sodium 138 mmol/L (136-145)
[2019-05-11 08:50] LABS: TSH (W/Ref FT4) 1.32 uIU/mL (0.358-3.74)
[2019-05-11] MEDS: buPROPion-XL 150 MG TABCR PO (09:08)
[2019-05-11] MEDS: Doxycycline Hyclate 100 MG CAP PO ×2 (09:08→19:21)
[2019-05-11] MEDS: Torsemide 20 MG TAB PO (09:08)
[2019-05-11] MEDS: amLODIPine 10 MG TAB PO (09:09)
[2019-05-11] MEDS: Aspirin E.C. 81 MG TABEC PO (09:09)
[2019-05-11] MEDS: Carvedilol 12.5 MG TAB PO ×2 (09:09→19:21)
[2019-05-11] MEDS: Clopidogrel 75 MG TAB PO (09:09)
[2019-05-11] MEDS: Enoxaparin 40 MG/0.4 ML SYR SC (09:10)
[2019-05-11] MEDS: Nicotine 21 MG/24 HR PATCH TD (09:10)
[2019-05-11] MEDS: Pantoprazole 40 MG TABCR PO (09:10)
[2019-05-11] MEDS: methylPREDNISolone SUCC 125 MG VIAL 80 MG IVP ×3 (09:11→23:58)
[2019-05-11] MEDS: Normal Saline Flush 10 ML SYR IVP ×4 (09:12→23:58)
[2019-05-11] MEDS: Albuterol 2.5 MG/3 ML INH SOLN VIAL UPD (10:43)
[2019-05-11] MEDS: Docusate Sodium 100 MG CAP PO (11:12)
--- NOTE | 2019-05-11 14:14 | W.PM.PROGNOT ---
Date of Service Date of service: 05/11/19 Time of Service: 14:14 Assessment and Plan (1) COPD exacerbation: Start date: 05/11/19 Start time: 14:22 Current visit: Yes Status: Acute Breathing is improving. Not requiring oxygen, LS with slight expiratory wheeze and diffuse rhonchi in lower bases, Chest pressure is less and coughing is less. NAD. Talking in complete sentences. Continue steroids, IHS, ICS, updrafts, duonebs. Doxy day 2 rocephin day 2, recommend PFT as an outpatient. (2) Pneumonia: Start date: 05/11/19 Start time: 14:26 Current visit: Yes Status: Acute Chest x-ray does reveal a nodular density in his right lower lobe which was found prior to admission. He will be continued on doxycycline and Rocephin IV will be added to his regimen, he will need reimaging after antibiotic course to see if nodule resolved. See Qualifiers: Pneumonia type: due to unspecified organism Laterality: right Lung location: lower lobe of lung Qualified Code(s): J18.1 - Lobar pneumonia, unspecified organism (3) Acute systolic CHF (congestive heart failure): Start date: 05/11/19 Start time: 14:27 Current visit: No Status: Chronic This is a chronic problem and he will be continued on his outpatient medical therapy with monitoring for fluid overload during his hospital stay. February 2019 echo reveals EF 65-70 with mild to moderate mitral valve regurgitation. (4) Chronic renal failure: Start date: 05/11/19 Start time: 14:28 Current visit: No Status: Chronic This is a chronic issue which appears to be stable and will be monitored during his hospital stay. Qualifiers: Chronic kidney disease stage: stage 3 (moderate) Qualified Code(s): N18.3 - Chronic kidney disease, stage 3 (moderate) (5) Non-STEMI (non-ST elevated myocardial infarction): Start date: 05/11/19 Start time: 14:28 Current visit: No Status: Chronic There is no evidence of acute ischemia and he will be monitored clinically without telemetry. His initial troponins and EKG were normal. (6) DVT prophylaxis: Start date: 05/11/19 Start time: 14:28 Current visit: Yes Status: Acute enoxaparin subut. Subjective Patient reports: no new complaints and feels better Interval history since last seen: Breathing is improved. LS with slight expiratory wheezing in upper lobes, diffuse rhonchi in lower. Feeling less chest pressure and heaviness then when he came in to the ED. KS r/o in ED with EKG and troponin. Echo 02/21/2019 EF 65-70. Not requiring oxygen at this time. Has not smoked in 2 years but continues to wear nicotine patch. Has never had PFT, recommend as an outpatient and he is agreeable. Doxy and Rocephin day 2, continue nebs, updrafts, steroids, ICS. SOB improving, denies n/v/d Exam Narrative Exam Narrative: General: Patient appears older than stated age, in no acute distress, alert and oriented x3 HEENT: Normocephalic. PERRLA, and poor dentition with missing teeth and discoloration of teeth. Neck: Supple without JVD. No auscultated carotid bruits. Back: Posture with no CVA tenderness. Lungs: slight expiratory wheeze, breath sound with diffuse rhonchi. No dullness to percussion. Heart: Bradycardic rate with normal rhythm and no appreciable murmurs or gallops. S1-S2 normal. Abdomen: Obese contour, soft and nontender to palpation without palpable hepatosplenomegaly or masses. Bowel sounds positive and normal in all quadrants. Extremities: Trace pitting edema over ankles and feet moderate nonpitting edema. No cyanosis or clubbing. Skin: Pale, warm and dry without rashes. Neuro: Cranial nerves II through XII grossly intact, motor without focalizing deficits and normal strength. DTRs physiologic and symmetrical. Objective Objective Clinical Data: Abnormal lab results 05/10/19 05/10/19 05/11/19 Range/Units 21:10 21:10 07:36 RBC 6.26 H (4.50-6.00) m/cumm Hgb 12.1 L (13.5-17.5) g/dL Hct 37.1 L (40.0-50.0) % MCV 59.3 L (80-95) fL MCH 19.3 L (27.0-33.0) pg RDW 19.9 H (11.8-14.1) % Absolute Monocytes 1.01 H (0.11-0.7) k/cumm BUN 33 H 30 H (7-18) mg/dL Creatinine 1.92 H 1.78 H (0.70-1.30) mg/dL Glucose 102 H 150 H (70-100) mg/dL AST 11 L 11 L (15-37) U/L NT-Pro-B Natriuret Pep 1165 H ( - 299) pg/mL Vital Signs Temperature 36.5 C 05/11/19 12:42 Temperature Source Tympanic 05/11/19 12:42 Pulse 74 05/11/19 12:42 Pulse Rhythm Regular 05/11/19 07:30 Pulse 54 L 05/10/19 23:30 Respiratory Rate 18 05/11/19 12:42 Respiratory Effort Non-Labored 05/11/19 07:30 Respiratory Depth Normal 05/11/19 07:30 Respiratory Pattern Normal 05/11/19 07:30 Blood Pressure 185/68 H 05/11/19 12:42 Blood Pressure Mean 112 05/10/19 23:01 Blood Pressure Position Sitting 05/10/19 20:48 Pulse Oximetry 98 05/11/19 12:42 Oxygen Delivery Method Room Air 05/11/19 12:42 Oxygen Flow Rate 0 05/11/19 12:42 Pain Level 0 05/11/19 12:42 Intake & Output 05/10/19 05/11/19 05/11/19 23:59 11:59 23:59 Intake Total 570 / 570 Output Total 600 / 600 Balance -30 / -30 Weight 97.069 kg 96.7 kg Intake: IV 80 / 80 Oral 490 / 490 Output: Urine 600 / 600 Other: Urine Color Straw Urine Appearance Clear Stool Size Moderate Voiding Methods Toilet Laboratory Results WBC 9.17 k/cumm (4.4-10.8) 05/10/19 21:10 RBC 6.26 m/cumm (4.50-6.00) H 05/10/19 21:10 Hgb 12.1 g/dL (13.5-17.5) L 05/10/19 21:10 Hct 37.1 % (40.0-50.0) L 05/10/19 21:10 MCV 59.3 fL (80-95) L 05/10/19 21:10 MCH 19.3 pg (27.0-33.0) L 05/10/19 21:10 MCHC 32.6 g/dL (32.0-36.0) 05/10/19 21:10 RDW 19.9 % (11.8-14.1) H 05/10/19 21:10 Plt Count 334 x1000/uL (130-400) 05/10/19 21:10 MPV 9.4 fL (8.0-11.0) 05/10/19 21:10 Immature Gran % 0.2 05/10/19 21:10 Neutrophils % 64.1 05/10/19 21:10 Lymphocytes % 19.7 05/10/19 21:10 Monocytes % 11.0 05/10/19 21:10 Eosinophils % 4.5 05/10/19 21:10 Basophils % 0.5 05/10/19 21:10 Absolute Neutrophils 5.87 k/cumm (1.2-6.7) 05/10/19 21:10 Absolute Lymphocytes 1.81 k/cumm (1.2-3.4) 05/10/19 21:10 Absolute Monocytes 1.01 k/cumm (0.11-0.7) H 05/10/19 21:10 Absolute Eosinophils 0.41 k/cumm (0.0-0.7) 05/10/19 21:10 Absolute Basophils 0.05 k/cumm (0.0-0.2) 05/10/19 21:10 Differential Comment Rbc morph reviewed 05/10/19 21:10 RBC Morphology See below 05/10/19 21:10 Anisocytosis 2+ 05/10/19 21:10 Microcytosis 3+ 05/10/19 21:10 Sodium 138 mmol/L (136-145) 05/11/19 07:36 Potassium 4.0 mmol/L (3.5-5.1) 05/11/19 07:36 Chloride 103 mmol/L (98-107) 05/11/19 07:36 Carbon Dioxide 25.5 mmol/L (21.0-32.0) 05/11/19 07:36 Anion Gap 9.5 mmol/L (3-11) 05/11/19 07:36 BUN 30 mg/dL (7-18) H 05/11/19 07:36 Creatinine 1.78 mg/dL (0.70-1.30) H 05/11/19 07:36 Estimated GFR/1.73 m2 38.43 (mL/min/1.73m2) 05/11/19 07:36 Glucose 150 mg/dL (70-100) H 05/11/19 07:36 Calcium 9.7 mg/dL (8.5-10.1) 05/11/19 07:36 Magnesium 2.3 mg/dL (1.8-2.4) 05/10/19 21:10 Total Bilirubin 0.9 mg/dL (0.2-1.0) 05/11/19 07:36 AST 11 U/L (15-37) L 05/11/19 07:36 ALT 20 U/L (12-78) 05/11/19 07:36 Alkaline Phosphatase 112 U/L (46-116) 05/11/19 07:36 Troponin I < 0.05 ng/mL (0.00-0.06) 05/10/19 21:10 NT-Pro-B Natriuret Pep 1165 pg/mL (-299) H 05/10/19 21:10 Total Protein 8.0 g/dL (6.4-8.2) 05/11/19 07:36 Albumin 3.8 g/dL (3.4-5.0) 05/11/19 07:36 TSH 1.32 uIU/mL (0.358-3.74) 05/11/19 07:36
--- NOTE | 2019-05-11 16:04 | PDOC.CMIN ---
Care Management Initial Assess REASON FOR HOSPITALIZATION:: COPD Exacerbation, RLL Pneumonia with Nodular Opacity PAST MEDICAL HISTORY/PAST SURGICAL HISTORY:: Medical: Non-STEMI (non-ST elevated myocardial infarction) (Chronic);. Alcoholism in recovery (Chronic); CHF (congestive heart failure) (Chronic);. CKD (chronic kidney disease) (Chronic); COPD (chronic obstructive pulmonary disease) (Chronic); Essential hypertension (Chronic); Hyperlipidemia (Chronic); Hypospadias in male (Resolved);. Surgical: History of phacoemulsification of cataract of both eyes with intraocular lens implantation (Resolved); History of tonsillectomy (Resolved) PREVIOUS FUNCTIONAL STATUS/SOCIAL/FAMILY SUPPORTS:: Independent at baseline. Lives with his , Luma, at their home in [place]. Family members live out of state but they have close friends and neighbors. CURRENT FUNCTIONAL STATUS:: Ambulating independently. Visiting with his an hopes he can go home soon. 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 Follow up with PCP PATIENT/FAMILY EDUCATION NEEDS:: Discharge instructions ANTICIPATED BARRIERS TO DISCHARGE:: None identified TRANSPORTATION:: Luma, to transport PLAN:: Paul will return home when medically cleared for discharge. No services needed. Further diagnostic testing to be scheduled on an outpatient basis. Readmission - Within the Past 30 Days Yes or No: N (ICU Admission February 2019)
[2019-05-11] MEDS: Budesonide/Formoterol 80/4.5 6.9 GM 60 PUFF INH IH (19:21)
[2019-05-11] MEDS: Lisinopril 5 MG TAB PO (19:21)
[2019-05-11] MEDS: Rosuvastatin 10 MG TAB PO (22:08)
[2019-05-11] MEDS: cefTRIAXone 1 GM/50 ML BAG IVPB (23:58)
[2019-05-12] VITALS (8 sets, daily range): BP systolic 110–141; BP diastolic 55–67; PULSE 62–71; RESP 1–20; TEMP 35.8–36.5; O2SAT 93–96
[2019-05-12] MEDS: Albuterol/Ipratropium 3 ML UPD VIAL UPD ×3 (05:27→17:44)
[2019-05-12] MEDS: Budesonide/Formoterol 80/4.5 6.9 GM 60 PUFF INH IH ×2 (07:39→20:19)
[2019-05-12 07:44] LABS: Abs Immature Grans 0.03 k/cumm (0.0-0.09); Absolute Basophil Count 0.01 k/cumm (0.0-0.2); Absolute Lymphocyte Count 0.98 k/cumm (1.2-3.4); Absolute Monocyte Count 0.26 k/cumm (0.11-0.7); Basophils % 0.1; HCT 37.4 % (40.0-50.0); HGB 12.2 g/dL (13.5-17.5); Immature Grans % 0.2; Lymphocytes % 7.1; Mean Corp. HGB Concentration 32.6 g/dL (32.0-36.0); Mean Corpuscular Hemoglobin 19.2 pg (27.0-33.0); Mean Corpuscular Volume 58.9 fL (80-95); Mean Platelet Volume 9.7 fL (8.0-11.0); Monocytes % 1.9; Neutrophils % 90.7; Platelet Count 380 x1000/uL (130-400); RBC 6.35 m/cumm (4.50-6.00); RBC Distribution Width 20.1 % (11.8-14.1); White Blood Cell Count 13.82 k/cumm (4.4-10.8)
[2019-05-12 07:48] LABS: Absolute Neutrophil Count 12.53 k/cumm (1.2-6.7)
[2019-05-12 07:51] LABS: Anion Gap 15.6 mmol/L (3-11); BUN 51 mg/dL (7-18); CO2 20.4 mmol/L (21.0-32.0); CREATININE 2.19 mg/dL (0.70-1.30); Calcium 9.6 mg/dL (8.5-10.1); Chloride 103 mmol/L (98-107); Estimated GFR 30.25 (mL/min/1.73m2); Glucose 163 mg/dL (70-100); Magnesium 2.2 mg/dL (1.8-2.4); Potassium 4.3 mmol/L (3.5-5.1); Sodium 139 mmol/L (136-145)
[2019-05-12] MEDS: Pantoprazole 40 MG TABCR PO (08:10)
[2019-05-12] MEDS: Doxycycline Hyclate 100 MG CAP PO ×2 (08:11→20:15)
[2019-05-12] MEDS: Aspirin E.C. 81 MG TABEC PO (08:11)
[2019-05-12] MEDS: methylPREDNISolone SUCC 125 MG VIAL 80 MG IVP (08:11)
[2019-05-12] MEDS: Clopidogrel 75 MG TAB PO (08:11)
[2019-05-12] MEDS: Docusate Sodium 100 MG CAP PO (08:12)
[2019-05-12] MEDS: buPROPion-XL 150 MG TABCR PO (08:12)
[2019-05-12] MEDS: Carvedilol 12.5 MG TAB PO ×2 (08:12→20:16)
[2019-05-12] MEDS: amLODIPine 10 MG TAB PO (08:12)
[2019-05-12] MEDS: Torsemide 20 MG TAB PO (08:12)
[2019-05-12] MEDS: Enoxaparin 40 MG/0.4 ML SYR SC (08:13)
[2019-05-12] MEDS: Nicotine 21 MG/24 HR PATCH TD (08:13)
[2019-05-12] MEDS: Normal Saline Flush 10 ML SYR IVP (08:13)
[2019-05-12 08:31] LABS: Diff Comment RBC Morph Reviewed
[2019-05-12 08:32] LABS: Microcytosis 3+
[2019-05-12 08:33] LABS: Hypochromasia 2+
[2019-05-12 08:34] LABS: Poikilocytes 1+
[2019-05-12] MEDS: Lisinopril 5 MG TAB PO (09:24)
--- NOTE | 2019-05-12 11:35 | PGE_ITS ---
Date of Service Date of service: 05/12/19 Time of Service: 11:15 Assessment and Plan (1) Pneumonia: Start date: 05/12/19 Start time: 11:31 Current visit: Yes Status: Acute A// Lung sounds improved. Clear, diminished. Chest pain and pressure resolved. Breathing without difficulty. RA sat is 95%. Coughing has improved. P// Transitioned to PO steroids. Transitioned to PO antibiotics. Day 2 of doxy and day 1 of ceftin, after being switched from ceftriaxone. Continue nebs, updrafts, steroids, IHS, ICS, antibiotics. Discharge tomorrow if patient continues to improve. Recommend PFT as an outpatient. Qualifiers: Pneumonia type: due to unspecified organism Laterality: right Lung location: lower lobe of lung Qualified Code(s): J18.1 - Lobar pneumonia, unspecified organism (2) COPD exacerbation: Start date: 05/12/19 Start time: 11:34 Current visit: Yes Status: Acute A// In the setting of RML Pneumonia. see above. (3) Chronic renal failure: Start date: 05/12/19 Start time: 11:26 Current visit: No Status: Chronic A// Slight bump after started on ISHAN. HTN responded well to ISHAN. P//Recommend renal u/s as outpatient to evaluate for renal artery stenosis. Continue monitoring am labs. Qualifiers: Chronic kidney disease stage: stage 3 (moderate) Qualified Code(s): N18.3 - Chronic kidney disease, stage 3 (moderate) (4) Non-STEMI (non-ST elevated myocardial infarction): Start date: 05/12/19 Start time: 11:24 Current visit: No Status: Chronic A// No evidence acute ischemia. Negative EKG and troponins. P// Continue home dose of CCB, torsemide, terazosin and started on ISHAN. Continue to montior. (5) HTN (hypertension): Start date: 05/12/19 Start time: 11:22 Current visit: Yes Status: Chronic Trending upward bp, started on ISHAN. Slight bump in creatinine, we expect a bump in creatinine with an ISHAN Inhibitor. If it creatinine continues to increase it will be discontinued. Continue to monitor. (6) Diastolic CHF: Start date: 05/12/19 Start time: 11:28 Current visit: Yes Status: Chronic A// chronic diastolic CHF, revealed by February 2019 echo. EF of 65-70. Mild to moderate mitral valve regurgitation. PHTN with pressures 50-60. Not exacerbated at this time. P// Continue home medications. Recommend sleep study of DANA as an outpatient. (7) DVT prophylaxis: Start date: 05/12/19 Start time: 11:22 Current visit: Yes Status: Acute enoxaparin subut. Subjective Patient reports: feels better Interval history since last seen: Feeling Better, states able to breath better. Chest pressure has resolved. Lung sounds diminished, clear. Transitioned to PO steroids and antibiotics. Day 2 of doxy and day 1 of ceftin switched from ceftriaxone. Continue updrafts, nebs, ICS and IHS. He was started on small dose ISHAN yesterday after upward trend of elevated bp. BP responded to SIHAN, recommend renal u/s as an outpatient, given quick response. Denies CP, SOB, n/v/d. Exam Narrative Exam Narrative: General: Patient appears older than stated age, in no acute distress, alert and oriented x3. Neck: Supple without JVD. No auscultated carotid bruits. Lungs: clear, diminished. Heart: Bradycardic rate with normal rhythm and no appreciable murmurs or gal lops. S1-S2 normal. Abdomen: Obese contour, soft and nontender to palpation without palpable hepatosplenomegaly or masses. Bowel sounds positive and normal in all quadrants. Extremities:No edema. No cyanosis or clubbing. Skin: Pale, warm and dry without rashes. Neuro: Cranial nerves II through XII grossly intact, motor without focalizing deficits and normal strength. DTRs physiologic and symmetrical. Objective Objective Clinical Data: Abnormal lab results 05/12/19 05/12/19 Range/Units 06:43 06:43 WBC 13.82 H (4.4-10.8) k/cumm RBC 6.35 H (4.50-6.00) m/cumm Hgb 12.2 L (13.5-17.5) g/dL Hct 37.4 L (40.0-50.0) % MCV 58.9 L (80-95) fL MCH 19.2 L (27.0-33.0) pg RDW 20.1 H (11.8-14.1) % Absolute Neutrophils 12.53 H (1.2-6.7) k/cumm Absolute Lymphocytes 0.98 L (1.2-3.4) k/cumm Carbon Dioxide 20.4 L (21.0-32.0) mmol/L Anion Gap 15.6 H (3-11) mmol/L BUN 51 H D (7-18) mg/dL Creatinine 2.19 H (0.70-1.30) mg/dL Glucose 163 H (70-100) mg/dL Vital Signs Temperature 36.0 C L 05/12/19 07:36 Temperature Source Tympanic 05/12/19 07:36 Pulse 71 05/12/19 07:36 Pulse Rhythm Regular 05/11/19 19:15 Pulse 54 L 05/10/19 23:30 Respiratory Rate 19 05/12/19 07:36 Respiratory Effort Non-Labored 05/11/19 19:15 Respiratory Depth Normal 05/11/19 19:15 Respiratory Pattern Normal 05/11/19 19:15 Blood Pressure 110/58 L 05/12/19 07:36 Blood Pressure Mean 112 05/10/19 23:01 Blood Pressure Position Sitting 05/10/19 20:48 Pulse Oximetry 95 05/12/19 07:40 Oxygen Delivery Method Room Air 05/12/19 07:40 Oxygen Flow Rate 0 05/12/19 07:40 Pain Level 0 05/12/19 05:32 Comment 05/11/19 23:42 Intake & Output 05/11/19 05/11/19 05/12/19 11:59 23:59 11:59 Intake Total 570 / 810 240 / 810 750 / 750 Output Total 600 / 950 350 / 950 Balance -30 / -140 -110 / -140 750 / 750 Weight 96.7 kg 96.1 kg Intake: IV 80 / 80 Oral 490 / 730 240 / 730 750 / 750 Output: Urine 600 / 950 350 / 950 Other: Urine Color Straw Straw Urine Appearance Clear Clear Urine Odor Normal Stool Size Moderate Voiding Methods Toilet Toilet Laboratory Results WBC 13.82 k/cumm (4.4-10.8) H 05/12/19 06:43 RBC 6.35 m/cumm (4.50-6.00) H 05/12/19 06:43 Hgb 12.2 g/dL (13.5-17.5) L 05/12/19 06:43 Hct 37.4 % (40.0-50.0) L 05/12/19 06:43 MCV 58.9 fL (80-95) L 05/12/19 06:43 MCH 19.2 pg (27.0-33.0) L 05/12/19 06:43 MCHC 32.6 g/dL (32.0-36.0) 05/12/19 06:43 RDW 20.1 % (11.8-14.1) H 05/12/19 06:43 Plt Count 380 x1000/uL (130-400) 05/12/19 06:43 MPV 9.7 fL (8.0-11.0) 05/12/19 06:43 Immature Gran % 0.2 05/12/19 06:43 Neutrophils % 90.7 05/12/19 06:43 Lymphocytes % 7.1 05/12/19 06:43 Monocytes % 1.9 05/12/19 06:43 Eosinophils % 0.0 05/12/19 06:43 Basophils % 0.1 05/12/19 06:43 Absolute Neutrophils 12.53 k/cumm (1.2-6.7) H 05/12/19 06:43 Absolute Lymphocytes 0.98 k/cumm (1.2-3.4) L 05/12/19 06:43 Absolute Monocytes 0.26 k/cumm (0.11-0.7) 05/12/19 06:43 Absolute Eosinophils 0.00 k/cumm (0.0-0.7) 05/12/19 06:43 Absolute Basophils 0.01 k/cumm (0.0-0.2) 05/12/19 06:43 Differential Comment Rbc morph reviewed 05/12/19 06:43 RBC Morphology See below 05/12/19 06:43 Hypochromasia 2+ 05/12/19 06:43 Poikilocytosis 1+ 05/12/19 06:43 Anisocytosis 2+ 05/10/19 21:10 Microcytosis 3+ 05/12/19 06:43 Sodium 139 mmol/L (136-145) 05/12/19 06:43 Potassium 4.3 mmol/L (3.5-5.1) 05/12/19 06:43 Chloride 103 mmol/L (98-107) 05/12/19 06:43 Carbon Dioxide 20.4 mmol/L (21.0-32.0) L 05/12/19 06:43 Anion Gap 15.6 mmol/L (3-11) H 05/12/19 06:43 BUN 51 mg/dL (7-18) H D 05/12/19 06:43 Creatinine 2.19 mg/dL (0.70-1.30) H 05/12/19 06:43 Estimated GFR/1.73 m2 30.25 (mL/min/1.73m2) 05/12/19 06:43 Glucose 163 mg/dL (70-100) H 05/12/19 06:43 Calcium 9.6 mg/dL (8.5-10.1) 05/12/19 06:43 Magnesium 2.2 mg/dL (1.8-2.4) 05/12/19 06:43 Total Bilirubin 0.9 mg/dL (0.2-1.0) 05/11/19 07:36 AST 11 U/L (15-37) L 05/11/19 07:36 ALT 20 U/L (12-78) 05/11/19 07:36 Alkaline Phosphatase 112 U/L (46-116) 05/11/19 07:36 Troponin I < 0.05 ng/mL (0.00-0.06) 05/10/19 21:10 NT-Pro-B Natriuret Pep 1165 pg/mL (-299) H 05/10/19 21:10 Total Protein 8.0 g/dL (6.4-8.2) 05/11/19 07:36 Albumin 3.8 g/dL (3.4-5.0) 05/11/19 07:36 TSH 1.32 uIU/mL (0.358-3.74) 05/11/19 07:36
[2019-05-12] MEDS: Calcium Carbonate *TUMS* 500 MG CHEW PO (11:57)
--- NOTE | 2019-05-12 14:01 | INITIAL_ITS ---
Care Management Initial Assess REASON FOR HOSPITALIZATION:: COPD Exacerbation, RLL Pneumonia with Nodular Opacity PAST MEDICAL HISTORY/PAST SURGICAL HISTORY:: Medical: Non-STEMI (non-ST elevated myocardial infarction) (Chronic);. Alcoholism in recovery (Chronic); CHF (congestive heart failure) (Chronic);. CKD (chronic kidney disease) (Chronic); COPD (chronic obstructive pulmonary disease) (Chronic); Essential hypertension (Chronic); Hyperlipidemia (Chronic); Hypospadias in male (Resolved);. Surgical: History of phacoemulsification of cataract of both eyes with intraocular lens implantation (Resolved); History of tonsillectomy (Resolved) PREVIOUS FUNCTIONAL STATUS/SOCIAL/FAMILY SUPPORTS:: Independent at baseline. Lives with his , Luma, at their home in [place]. Family members live out of state but they have close friends and neighbors. CURRENT FUNCTIONAL STATUS:: Ambulating independently. Visiting with his an hopes he can go home soon. 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 Follow up with PCP PATIENT/FAMILY EDUCATION NEEDS:: Discharge instructions ANTICIPATED BARRIERS TO DISCHARGE:: None identified TRANSPORTATION:: Luma, to transport PLAN:: Paul will return home when medically cleared for discharge. No services needed. Further diagnostic testing to be scheduled on an outpatient basis. Readmission - Within the Past 30 Days Yes or No: N (ICU Admission February 2019)
--- NOTE | 2019-05-12 14:01 | PDOC.CMPRO ---
Care Management Progress Note S/O: Paul was up and walking around in his room. , Luma, was visiting. Reports that he is getting better and hopes to go home tomorrow. A: 68 y.o. male admitted for COPD exacerbation, RLL Pneumonia. Remains Acute level of care receiving IV antibiotics. P: Paul will return home when medically cleared for discharge. No services needed. Further diagnostic testing to be scheduled on an outpatient basis.
[2019-05-12] MEDS: Cefuroxime 500 MG TAB PO (20:15)
[2019-05-12] MEDS: predniSONE 20 MG TAB 60 MG PO (20:16)
[2019-05-12] MEDS: Rosuvastatin 10 MG TAB PO (21:41)
[2019-05-12] MEDS: Polyethylene Glycol 3350 17 GM PACKET PO (21:41)
[2019-05-13] MEDS: Albuterol/Ipratropium 3 ML UPD VIAL UPD ×2 (00:15→05:42)
[2019-05-13 03:33] VITALS: BP 126/54; PULSE 58; RESP 18; TEMP 36; O2SAT 93
[2019-05-13] MEDS: Budesonide/Formoterol 80/4.5 6.9 GM 60 PUFF INH IH (07:34)
[2019-05-13 07:39] VITALS: BP 139/57; PULSE 57; RESP 18; TEMP 36.4; O2SAT 94
[2019-05-13 07:40] LABS: Abs Immature Grans 0.08 k/cumm (0.0-0.09); Absolute Basophil Count 0.02 k/cumm (0.0-0.2); Absolute Lymphocyte Count 0.93 k/cumm (1.2-3.4); Absolute Monocyte Count 0.47 k/cumm (0.11-0.7); Absolute Neutrophil Count 16.71 k/cumm (1.2-6.7); Basophils % 0.1; HGB 11.8 g/dL (13.5-17.5); Immature Grans % 0.4; Lymphocytes % 5.1; Mean Corp. HGB Concentration 32.8 g/dL (32.0-36.0); Mean Corpuscular Hemoglobin 19.3 pg (27.0-33.0); Mean Corpuscular Volume 58.8 fL (80-95); Mean Platelet Volume 9.6 fL (8.0-11.0); Monocytes % 2.6; Neutrophils % 91.8; Platelet Count 335 x1000/uL (130-400); RBC 6.12 m/cumm (4.50-6.00); RBC Distribution Width 20.1 % (11.8-14.1)
[2019-05-13] MEDS: Nicotine 21 MG/24 HR PATCH TD (07:53)
[2019-05-13] MEDS: Enoxaparin 40 MG/0.4 ML SYR SC (07:54)
[2019-05-13] MEDS: predniSONE 20 MG TAB 60 MG PO (07:54)
[2019-05-13] MEDS: Carvedilol 12.5 MG TAB PO (07:55)
[2019-05-13] MEDS: Clopidogrel 75 MG TAB PO (07:55)
[2019-05-13] MEDS: buPROPion-XL 150 MG TABCR PO (07:55)
[2019-05-13] MEDS: Cefuroxime 500 MG TAB PO (07:55)
[2019-05-13] MEDS: amLODIPine 10 MG TAB PO (07:55)
[2019-05-13] MEDS: Pantoprazole 40 MG TABCR PO (07:55)
[2019-05-13] MEDS: Torsemide 20 MG TAB PO (07:56)
[2019-05-13] MEDS: Doxycycline Hyclate 100 MG CAP PO (07:56)
[2019-05-13] MEDS: Aspirin E.C. 81 MG TABEC PO (07:56)
[2019-05-13 08:07] LABS: Anisocytosis 2+; Basophilic Stippling Present; Diff Comment RBC Morph Reviewed; Hypochromasia 3+; Microcytosis 3+; Polychromasia Present
[2019-05-13 08:08] LABS: Poikilocytes 1+
[2019-05-13 09:15] LABS: Anion Gap 17.6 mmol/L (3-11); BUN 68 mg/dL (7-18); CO2 19.4 mmol/L (21.0-32.0); CREATININE 2.11 mg/dL (0.70-1.30); Chloride 104 mmol/L (98-107); Estimated GFR 31.58 (mL/min/1.73m2); Glucose 146 mg/dL (70-100); Magnesium 2.3 mg/dL (1.8-2.4); Sodium 141 mmol/L (136-145)
--- NOTE | 2019-05-13 09:55 | W.PM.DS.N ---
Date of service: 05/13/19 Time of Service: 09:55 DS: Diagnosis Discharge Diagnosis (1) Pneumonia: Status: Acute (2) COPD exacerbation: Status: Acute (3) Chronic renal failure: Status: Chronic (4) Non-STEMI (non-ST elevated myocardial infarction): Status: Chronic (5) HTN (hypertension): Status: Chronic (6) Diastolic CHF: Status: Chronic (7) DVT prophylaxis: Status: Acute Discharge Plan Disposition Patient Disposition: HOME Condition: Good Discharge Details Reason For Visit: COPD EXACERBATION; RLL PNEUMONIA W/NODULAR OPACITY Admit Date/Time: 05/10/19 23:22 Admit Provider: Geremias Camilo Attending Provider: Geremias Camilo Primary Care Provider: Bryant Watkins Hospital Course Hospital Course: This is a 68-year-old gentleman who has a history of COPD quitting smoking 2 years ago. He does continue to wear a NicoDerm patch daily since he had quit smoking. This spring he had a presentation of shortness of breath with resulting non-STEMI and subsequent cardiac catheterization and stenting with new onset of systolic CHF which is presently being treated at [facility] [place]. The patient and his had a viral URI at the start of this week and his shortness of breath worsened the day of his presentation. He reported to the ED with concerns that his shortness of breath may be returning angina which is how his non-STEMI presented. In the ED he did not really respond to aggressive treatments and was given IV Solu-Medrol and admitted for treatment of his COPD exacerbation. He was already placed on doxycycline by his PMD during the week and Rocephin was added because of possible infiltrate in his right lower lobe which appeared as a nodular opacity. At this time I evaluated the patient the appeared comfortable but continued to have cough with wheeze and excertional dyspnea. He was denying chest pain. He does have a history of peripheral edema which improved on treatment for his CHF. He also has a history of CKD which he states was a consequence of the medication given by his PMD and improved after this medication was discontinued. This problem worsened again when he was hospitalized for his non-STEMI with the same medication restarted and is now being modified by his PMD. This appears to be stable and he has no urinary complaints. During the course of his hospital stay he received a steroid regimen, doxy and ceftin po Day 3, nebs, bandar, IHS , and ICS. He never required oxygen. He did have an elevated WBC however he was on high dose steroids. Blood pressure did increase will in the hospital and an ISHAN was trialed, affecting his blood pressure immediately, however per his PCP he has been trialed on an ISHAN several times resulting in a low bp. There is a strong suspicion of MELANI given the physiological response of the kidneys to ISHAN, therefore, I feel he could benefit from an renal artery doppler. Today he is looking improved. Lung sounds markedly better. No SOB, rhonchi, crackles or rales. He should consider having a sleep study given PHTN from past echo February 2019. Also recommend PFTs. He will sent home on tapering steroid dose with course of antibiotics Ceftin and Doxy. He denies SOB, CP, n/v/d. Home Meds and New Rx's Prescriptions: New prednisone 20 mg Tablet 60 mg PO BID Qty: 35 RF: 0 cefuroxime axetil 500 mg Tablet 500 mg PO BID Qty: 10 RF: 0 Symbicort 80-4.5 mcg/actuation Hfa Aerosol Inhaler 2 puff Inhalation BID Qty: 6.9 RF: 0 Continued carvedilol 12.5 mg Tablet 12.5 mg PO BID RF: 0 clopidogrel [Plavix] 75 mg Tablet 75 mg PO DAILY RF: 0 aspirin [Aspir-81] 81 mg Tablet,Delayed Release (Dr/Ec) 81 mg PO DAILY RF: 0 pantoprazole 40 mg Tablet,Delayed Release (Dr/Ec) 40 mg PO DAILY RF: 0 bupropion HCl 150 mg Tablet Extended Release 24 Hr 150 mg PO QAM RF: 0 rosuvastatin [Crestor] 10 MG tablet 10 g PO .QHS RF: 0 albuterol sulfate [ProAir HFA] 200 PUFF HFA aerosol inhaler 2 puff Inhalation Q4H PRN PRNQty: 1 RF: 0 torsemide 20 mg Tablet 20 mg PO DAILY RF: 0 terazosin 1 mg Capsule 1 mg PO DAILY RF: 0 amlodipine 10 mg Tablet 10 mg PO DAILY RF: 0 polyethylene glycol 3350 [GlycoLax] 17 gram/dose Powder 17 g PO DAILY PRNRF: 0 Bevespi Aerosphere 9-4.8 mcg Hfa Aerosol Inhaler 2 puff INHALATION QAM AND QPM RF: 0 ipratropium-albuterol 0.5 mg-3 mg(2.5 mg base)/3 mL solution for nebulization 3 ml IH Q6H Qty: 90 RF: 0 doxycycline hyclate 100 mg capsule 100 mg PO BID Qty: 20 RF: 0 Discharge Instructions Instructions: COPD (Chronic Obstructive Pulmonary Disease) (GEN), Community Acquired Pneumonia (GEN), How Your Lungs Work (GEN), Chronic Lung Disease and Infection Prevention (GEN), Pulmonary Rehabilitation (GEN) Additional Instructions: Recheck your blood in 5 days. Follow up with your PCP in 1 week. Take all medication as prescribed. Recommend PFT, Renal ultrasound. Recommend Sleep study. Seek medical attention if you have Chest pain, shortness of breath, nausea, vomiting, diarrhea. You will need a repeat chest xray in a couple of weeks. Stand Alone Forms: Nursing Discharge Form Referrals: Bryant Watkins MD [Primary Care Provider] - 05/23/19 2:45 pm Activity:: Activity as Tolerated Equipment/Supplies:: No Equipment Needed Diet:: As Tolerated Discharge Orders Discharge Orders: Discharge Order (Routine); Ordered 05/13/19 Ordered By: Ember Quarles Other Ambulatory Orders: Basic Metabolic Panel (Routine) Location: Determined by Patient Ordered By: Ember Quarles Complete Blood Count w/Diff (Routine) Location: Determined by Patient Ordered By: Ember Quarles Magnesium (Routine) Location: Determined by Patient Ordered By: Ember Quarles Exam Narrative Exam Narrative: General: Patient appears older than stated age, in no acute distress, alert and oriented x3. Neck: Supple without JVD. No auscultated carotid bruits. Lungs: clear, diminished. Heart: Bradycardic rate with normal rhythm and no appreciable murmurs or gallops. S1-S2 normal. Abdomen: Obese contour, soft and nontender to palpation without palpable hepatosplenomegaly or masses. Bowel sounds positive and normal in all quadrants. Extremities:No edema. No cyanosis or clubbing. Skin: Pale, warm and dry without rashes. Neuro: Cranial nerves II through XII grossly intact, motor without focalizing deficits and normal strength. DTRs physiologic and symmetrical. DS: Data Vitals/I&O Vitals and I&O: Vital Signs Temperature 36.4 C L 05/13/19 07:39 Temperature Source Tympanic 05/13/19 07:39 Pulse 57 L 05/13/19 07:39 Pulse Rhythm Regular 05/13/19 09:03 Pulse 54 L 05/10/19 23:30 Respiratory Rate 18 05/13/19 07:39 Respiratory Effort Non-Labored 05/13/19 09:03 Respiratory Depth Normal 05/13/19 09:03 Respiratory Pattern Normal 05/13/19 09:03 Blood Pressure 139/57 L 05/13/19 07:39 Blood Pressure Mean 112 05/10/19 23:01 Blood Pressure Position Sitting 05/10/19 20:48 Pulse Oximetry 94 L 05/13/19 07:39 Oxygen Delivery Method Room Air 05/13/19 07:39 Oxygen Flow Rate 0 05/13/19 07:39 Pain Level 0 05/12/19 05:32 Comment 05/11/19 23:42 Intake & Output 05/12/19 05/12/19 05/13/19 11:59 23:59 11:59 Intake Total 780 / 1920 1140 / 1920 300 / 300 Output Total 600 / 1050 450 / 1050 750 / 750 Balance 180 / 870 690 / 870 -450 / -450 Weight 96.1 kg 96.6 kg Intake: IV 30 / 30 Oral 750 / 1890 1140 / 1890 300 / 300 Output: Urine 600 / 1050 450 / 1050 750 / 750 Other: Urine Color Straw Dark Denisse Yellow Urine Appearance Clear Clear Clear Urine Odor Normal None Normal Stool Size Moderate Stool Characteristics Soft Formed Brown Voiding Methods Toilet Urinal Toilet Completed studies during hospitalization [Text1]: EXAM: XR Chest, 1 View EXAM DATE/TIME: 05/10/2019 10:40 PM CLINICAL HISTORY: 68 years old, male; Shortness of breath; Patient HX: SOB TECHNIQUE: Imaging protocol: XR of the chest, 1 view. COMPARISON: ND XR PORTABLE CHEST AP 02/21/2019 3:59 AM FINDINGS: Lungs: Nodular opacity measuring 2 cm in diameter in the right lower lung field. Pleural space: Unremarkable. No evidence of pneumothorax. Heart/Mediastinum: Unremarkable. Heart size within normal limits for technique. Bones/joints: Unremarkable. IMPRESSION: Nodular opacity measuring 2 cm in diameter in the right lower lung field. Suggest nonemergent chest CT. Labs on day of discharge: Labs from last 24 hours 05/13/19 05/13/19 06:48 06:48 WBC 18.20 H D RBC 6.12 H Hgb 11.8 L Hct 36.0 L MCV 58.8 L MCH 19.3 L MCHC 32.8 RDW 20.1 H Plt Count 335 MPV 9.6 Immature Gran % 0.4 Neutrophils % 91.8 Lymphocytes % 5.1 Monocytes % 2.6 Eosinophils % 0.0 Basophils % 0.1 Absolute Neutrophils 16.71 H Absolute Lymphocytes 0.93 L Absolute Monocytes 0.47 Absolute Eosinophils 0.00 Absolute Basophils 0.02 Differential Comment Rbc morph reviewed RBC Morphology See below Polychromasia Present Hypochromasia 3+ Poikilocytosis 1+ Basophilic Stippling Present Anisocytosis 2+ Microcytosis 3+ Sodium 141 Potassium 4.0 Chloride 104 Carbon Dioxide 19.4 L Anion Gap 17.6 H BUN 68 H D Creatinine 2.11 H Estimated GFR/1.73 m2 31.58 Glucose 146 H Calcium 9.0 Magnesium 2.3 PFSH Medical History Non-STEMI (non-ST elevated myocardial infarction) (Chronic) Alcoholism in recovery (Chronic) CHF (congestive heart failure) (Chronic) CKD (chronic kidney disease) (Chronic) COPD (chronic obstructive pulmonary disease) (Chronic) Essential hypertension (Chronic) Hyperlipidemia (Chronic) Hypospadias in male (Resolved) Surgical History History of phacoemulsification of cataract of both eyes with intraocular lens implantation (Resolved) History of tonsillectomy (Resolved) Family History Father Throat cancer Heart disease Myocardial infarction Brother Heart disease Social History Smoking/Tobacco Use Status: Former Tobacco Use Quit Date: 01/11/17 Alcohol Intake: former Year quit: 2016 Details: Former alcoholic up to 2 cases of gin per month Substance use type: does not use Number of Children: 0 Pets and animals: Yes Pets and animals: dog(s) What is your relationship status?: Panel score (0-1 are the most socially isolated patients): 1 Do you feel safe at home: Yes Do you feel safe in your relationship?: Yes
--- NOTE | 2019-05-13 11:30 | PDOC.CMDIS ---
LACE Index Scoring Tool - Questions: Length of Stay (in days): 2 Acuity (Admit via E.D.?): Yes Comorbidities: Congestive Heart Failure, Chronic Pulmonary Disease, Liver or Renal Disease E.D. Visits: 3 - Answers: Total Score: 13 Risk of Readmission: High Risk Care Management Discharge Reason for Hospitalization: COPD Exacerbation, RLL Pneumonia with Nodular Opacity Discharge Plan: Paul will return home when medically cleared for discharge. No services services anticipated at this time. Further diagnostic testing to be scheduled on an outpatient basis including sleep study, CXR and PFTs. Patient/Family Education Needs: Review of discharge instructions, discuss Ask Me Three.
== END 2019-05-13 10:42 | disposition home or self-care (01) | DRG 280 ==
LOC: ER 23:38 → MS 23:56
PROVIDERS: Nurse Practitioner Family; Admitting Provider Family Medicine; Emergency Provider Emergency Medicine; PCP Internal Medicine; Visit Provider Internal Medicine
DX: I50.32 Chronic diastolic (congestive) heart failure (principal); I21.4 Non-ST elevation (NSTEMI) myocardial infarction; J44.0 Chronic obstructive pulmonary disease with (acute) lower respiratory infection; J18.9 Pneumonia, unspecified organism; I13.0 Hypertensive heart and chronic kidney disease with heart failure and stage 1 through stage 4 chronic kidney disease, or unspecified chronic kidney disease; J44.1 Chronic obstructive pulmonary disease with (acute) exacerbation; N18.3 Chronic kidney disease, stage 3 (moderate); R91.1 Solitary pulmonary nodule; R06.00 Dyspnea, unspecified; E78.5 Hyperlipidemia, unspecified; I05.1 Rheumatic mitral insufficiency; R00.1 Bradycardia, unspecified; Z87.891 Personal history of nicotine dependence; Z95.5 Presence of coronary angioplasty implant and graft
CPT/HCPCS: 36415; 80048; 80053; 85027; 93005; 94640; 96365; 99223; 99233; 99239; 99285; J1650; 71045; 83735; 83880; 84443; 84484; 85025; 93010; J0696; J2930; J7512; J7613; J7620

== ENCOUNTER 2019-05-22 07:57 | Outpatient (REF) | payer OTHER, SELFPAY ==
[2019-05-22 13:17] LABS: HCT 37.7 % (40.0-50.0); HGB 12.4 g/dL (13.5-17.5); Mean Corp. HGB Concentration 32.9 g/dL (32.0-36.0); Mean Corpuscular Hemoglobin 19.4 pg (27.0-33.0); Mean Corpuscular Volume 58.9 fL (80-95); Mean Platelet Volume 10.1 fL (8.0-11.0); Platelet Count 387 x1000/uL (130-400); RBC Distribution Width 20.7 % (11.8-14.1)
[2019-05-22 14:14] LABS: ALT 82 U/L (12-78); AST 26 U/L (15-37); Albumin 3.7 g/dL (3.4-5.0); Alkaline Phosphatase 82 U/L (46-116); Anion Gap 11.4 mmol/L (3-11); BUN 36 mg/dL (7-18); Bilirubin, Total 1.1 mg/dL (0.2-1.0); CO2 27.6 mmol/L (21.0-32.0); CREATININE 1.51 mg/dL (0.70-1.30); Calcium 8.9 mg/dL (8.5-10.1); Chloride 101 mmol/L (98-107); Estimated GFR 46.47 (mL/min/1.73m2); Glucose 86 mg/dL (70-100); Potassium 4.3 mmol/L (3.5-5.1); Sodium 140 mmol/L (136-145); Total Protein 6.8 g/dL (6.4-8.2)
== END 2019-05-22 08:17 ==
LOC: NCHCN 07:57
PROVIDERS: PCP Internal Medicine; Visit Provider Internal Medicine
DX: I10 Essential (primary) hypertension (principal); N18.3 Chronic kidney disease, stage 3 (moderate); J44.9 Chronic obstructive pulmonary disease, unspecified; D50.9 Iron deficiency anemia, unspecified
CPT/HCPCS: 80053; 85027; 83735

== ENCOUNTER 2019-08-06 11:03 | Outpatient (REF) | payer OTHER, SELFPAY ==
[2019-08-06 21:25] LABS: Abs Immature Grans 0.03 k/cumm (0.0-0.09); Absolute Basophil Count 0.14 k/cumm (0.0-0.2); Absolute Eosinophil Count 0.99 k/cumm (0.0-0.7); Absolute Lymphocyte Count 2.31 k/cumm (1.2-3.4); Absolute Monocyte Count 0.69 k/cumm (0.11-0.7); Absolute Neutrophil Count 5.91 k/cumm (1.2-6.7); Basophils % 1.4; Eosinophils % 9.8; HCT 36.5 % (40.0-50.0); Immature Grans % 0.3; Lymphocytes % 22.9; Mean Corp. HGB Concentration 32.9 g/dL (32.0-36.0); Mean Corpuscular Hemoglobin 19.6 pg (27.0-33.0); Mean Corpuscular Volume 59.5 fL (80-95); Mean Platelet Volume 9.4 fL (8.0-11.0); Monocytes % 6.9; Neutrophils % 58.7; Platelet Count 367 x1000/uL (130-400); RBC 6.13 m/cumm (4.50-6.00); RBC Distribution Width 20.2 % (11.8-14.1); White Blood Cell Count 10.07 k/cumm (4.4-10.8)
[2019-08-06 22:15] LABS: Anisocytosis 3+; Diff Comment RBC Morph Reviewed; Microcytosis 3+
== END 2019-08-06 11:23 ==
LOC: NCHCN 11:03
PROVIDERS: PCP Internal Medicine; Visit Provider Internal Medicine
DX: D72.829 Elevated white blood cell count, unspecified (principal)
CPT/HCPCS: 85025

== ENCOUNTER 2019-11-20 09:28 | Outpatient (REF) | payer OTHER, SELFPAY | END 2019-11-20 09:48 | LOC: NCHCN 09:28 | PROVIDERS: PCP Internal Medicine; Visit Provider Internal Medicine | DX: R39.9 Unspecified symptoms and signs involving the genitourinary system (principal) | CPT/HCPCS: 87086 ==

== ENCOUNTER 2019-11-25 12:42 | Outpatient (REF) | payer OTHER, SELFPAY | END 2019-11-25 13:02 | LOC: NCHCN 12:42 | PROVIDERS: PCP Internal Medicine; Visit Provider Internal Medicine | DX: R39.9 Unspecified symptoms and signs involving the genitourinary system (principal) | CPT/HCPCS: 87086 ==

== ENCOUNTER 2019-12-05 10:45 | Observation (INO) | payer OTHER, SELFPAY ==
[2019-12-05] VITALS (27 sets, daily range): BP systolic 135–169; BP diastolic 45–105; PULSE 65–87; RESP 2–36; TEMP 36.8–38.1; O2SAT 87–97
--- NOTE | 2019-12-05 10:59 | W.ED.GENAD ---
Discharge Plan Disposition Patient Disposition: [facility] INPATIENT Condition: Good Discharge Details Chief Complaint: SOB Clinical Impression: COPD exacerbation, CHF exacerbation, Breath shortness Primary Care Provider: Bryant Watkins ED Provider: Manuel Nguyen Home Meds and New Rx's Prescriptions: No Action fluticasone propionate 50 mcg/actuation blister with device 1 inh IH DAILY RF: 0 nitroglycerin 0.4 mg tablet, sublingual 0.4 mg SL Q5M PRNRF: 0 rosuvastatin 40 mg tablet 40 mg PO DAILY RF: 0 carvedilol 12.5 mg Tablet 12.5 mg PO BID RF: 0 clopidogrel [Plavix] 75 mg Tablet 75 mg PO DAILY RF: 0 aspirin [Aspir-81] 81 mg Tablet,Delayed Release (Dr/Ec) 81 mg PO DAILY RF: 0 pantoprazole 40 mg Tablet,Delayed Release (Dr/Ec) 40 mg PO DAILY RF: 0 bupropion HCl 150 mg Tablet Extended Release 24 Hr 150 mg PO QAM RF: 0 prednisone 20 mg Tablet 60 mg PO BID Qty: 35 RF: 0 cefuroxime axetil 500 mg Tablet 500 mg PO BID Qty: 10 RF: 0 Symbicort 80-4.5 mcg/actuation Hfa Aerosol Inhaler 2 puff Inhalation BID Qty: 6.9 RF: 0 albuterol sulfate [ProAir HFA] 200 PUFF HFA aerosol inhaler 2 puff Inhalation Q4H PRN PRNQty: 1 RF: 0 torsemide 20 mg Tablet 20 mg PO DAILY RF: 0 terazosin 1 mg Capsule 1 mg PO DAILY RF: 0 amlodipine 10 mg Tablet 10 mg PO DAILY RF: 0 polyethylene glycol 3350 [GlycoLax] 17 gram/dose Powder 17 g PO DAILY PRNRF: 0 Bevespi Aerosphere 9-4.8 mcg Hfa Aerosol Inhaler 2 puff INHALATION QAM AND QPM RF: 0 ipratropium-albuterol 0.5 mg-3 mg(2.5 mg base)/3 mL solution for nebulization 3 ml IH Q6H Qty: 90 RF: 0 doxycycline hyclate 100 mg capsule 100 mg PO BID Qty: 20 RF: 0 Medical Decision Making This is a 69-year-old male with past medical history of recent SD back in February, with 1 stent, who presents for evaluation of shortness of breath. Patient states that for the last 4 days he has had shortness of breath, cough, productive green sputum. He has been taking his breathing treatments but these have not been helping his symptoms very much. He is also been having mild dysuria for the past 1 to 2 weeks, and was started on initial antibiotic which she does not recall, and then switched to Bactrim and has been continuing to take except for today. He has had no change in improvements of his urinary symptoms. He has stated that the symptoms are similar to his last SD that he had but slightly different with the productive cough component. Patient denies any other complaints at this time. He does admit that when he lies flat at night he is notably short of breath but he denies any weight gain. He denies any swelling in his lower extremities. He denies a chest tightness, arm neck or shoulder pain. His symptoms are worsened with activity. Physical exam demonstrates minimal wheezes, no calf tenderness or edema. Mild increase in respiratory work of breathing, oxygen 87% on room air. Differential includes CHF, COPD, pneumonia, but also an STEMI with his exertional dyspnea. PE unlikely. We will treat with steroids, breathing treatments, do a pocus of his heart and lungs, chest x-ray and reassess including cardiac work-up. 12:18 PM Laboratory work-up demonstrates no significantly elevated white count. Chest x-ray shows no focal consolidations but does show findings concerning for pulmonary edema. Bedside ultrasound does show B-lines, proBNP elevated at 3300, creatinine 2.27, BUN 29. Still pending urinalysis. Saturations have notably improved with Solu-Medrol,, magnesium, and breathing treatments. Patient is feeling much better, and is no longer in significant respiratory distress. Looking at the patient's total picture I feel he is a combination of a few things. I think he has a bit of a COPD exacerbation, in conjunction with mild CHF exacerbation with evidence of B-lines, positive chest x-ray, and I do feel that his mild acute kidney injury is likely secondary to his Bactrim use. We will gently diurese with 10 of Lasix. Troponin normal, EKG shows no evidence of STEMI. Do feel that admission for serial troponins, gentle careful diuresis, and close observation is indicated. I discussed the case with the hospitalist Dr. Bell, she agrees to the assessment and plan. I will place admission orders. I have extensively reviewed the treatment plan with the patient. I have addressed all patient concerns at this time. I have also discussed the plan with the admitting physician and they agree with the current assessment and plan and have agreed to assume responsibility for the patient. All parties demonstrate verbal understanding and agreement with our assessment and plan at this time. EKG 10: 57 Rate 71, intervals normal, sinus rhythm, no evidence of STEMI, slight peaking of T waves in V1 and V3. Comparison of prior EKG from 05/10/2019 demonstrates no significant acute changes. FINDINGS: Heart is stable at the upper limits of normal. There is prominence of the pulmonary vasculature. Mild prominence of the interstitium is noted. These findings may represent pulmonary edema. No focal consolidating infiltrate is present. No gross effusions or pneumothoraces are identified. Degenerative changes are seen in the spine. IMPRESSION: Findings suspicious for mild pulmonary edema. HPI General Date/Time Provider Initiated Documentation: 12/05/19 10:47. HPI Narrative: This is a 69-year-old male with past medical history of recent SD back in February, with 1 stent, who presents for evaluation of shortness of breath. Patient states that for the last 4 days he has had shortness of breath, cough, productive green sputum. He has been taking his breathing treatments but these have not been helping his symptoms very much. He is also been having mild dysuria for the past 1 to 2 weeks, and was started on initial antibiotic which she does not recall, and then switched to Bactrim and has been continuing to take except for today. He has had no change in improvements of his urinary symptoms. He has stated that the symptoms are similar to his last SD that he had but slightly different with the productive cough component. Patient denies any other complaints at this time. He does admit that when he lies flat at night he is notably short of breath but he denies any weight gain. He denies any swelling in his lower extremities. He denies a chest tightness, arm neck or shoulder pain. His symptoms are worsened with activity. Related Data Home Medications Medication Instructions Recorded Confirmed albuterol sulfate [ProAir HFA] 2 puff INHALATION Q4H PRN PRN #1 04/29/17 05/10/19 inh Bevespi Aerosphere 2 puff INHALATION QAM AND QPM 02/19/19 12/05/19 amlodipine 10 mg PO DAILY 02/19/19 12/05/19 doxycycline hyclate 100 mg PO BID #20 cap 02/19/19 12/05/19 ipratropium-albuterol 3 ml IH Q6H #90 ml 02/19/19 12/05/19 polyethylene glycol 3350 [GlycoLax] 17 g PO DAILY PRN 02/19/19 12/05/19 terazosin 1 mg PO DAILY 02/19/19 12/05/19 torsemide 20 mg PO DAILY 02/19/19 12/05/19 aspirin [Aspir-81] 81 mg PO DAILY 05/10/19 12/05/19 bupropion HCl 150 mg PO QAM 05/10/19 05/10/19 carvedilol 12.5 mg PO BID 05/10/19 12/05/19 clopidogrel [Plavix] 75 mg PO DAILY 05/10/19 12/05/19 pantoprazole 40 mg PO DAILY 05/10/19 12/05/19 budesonide-formoterol [Symbicort] 2 puff INHALATION BID #6.9 gm 05/13/19 cefuroxime axetil 500 mg PO BID #10 tab 05/13/19 prednisone 60 mg PO BID #35 tab 05/13/19 fluticasone propionate 50 1 inh IH DAILY each 12/04/19 mcg/actuation blister powder for inhalation nitroglycerin 0.4 mg sublingual 0.4 mg SL Q5M PRN 12/04/19 12/05/19 tablet rosuvastatin 40 mg tablet 40 mg PO DAILY 12/04/19 12/05/19 Previous Rx's Medication Instructions Recorded albuterol sulfate [ProAir HFA] 2 puff INHALATION Q4H PRN PRN #1 04/29/17 inh doxycycline hyclate 100 mg PO BID #20 cap 02/19/19 ipratropium-albuterol 3 ml IH Q6H #90 ml 02/19/19 budesonide-formoterol [Symbicort] 2 puff INHALATION BID #6.9 gm 05/13/19 cefuroxime axetil 500 mg PO BID #10 tab 05/13/19 prednisone 60 mg PO BID #35 tab 05/13/19 Allergies Allergy/AdvReac Type Severity Reaction Status Date / Time acetaminophen Allergy Unverified 12/05/19 11:11 [From Tylenol-Codeine] codeine phosphate Allergy Unverified 12/05/19 11:11 [From Tylenol-Codeine] lisinopril Allergy Unverified 12/05/19 11:11 General Stated Complaint: SOB DAISY: 3 Review of Systems All systems reviewed & are unremarkable except as noted in HPI and below PFSH Social History Smoking/Tobacco Use Status: Former Tobacco Use Quit Date: 01/11/17 Alcohol Intake: former Year quit: 2016 Details: Former alcoholic up to 2 cases of gin per month Drug use: Never Substance use type: does not use Number of Children: 0 Pets and animals: Yes Pets and animals: dog(s) What is your relationship status?: Panel score (0-1 are the most socially isolated patients): 1 Do you feel safe at home: Yes Do you feel safe in your relationship?: Yes Exam Narrative Exam Narrative: 1.Const: Well-nourished, Well-developed, appearing stated age 2.Eyes: PERRL, no conjunctival injection, and symmetrical lids. 3.ENT: Atraumatic external nose and ears. Moist MM. Neck: Symmetric, trachea midline, No thyromegaly. 4.CVS: +S1/S2, No murmurs or gallops. Peripheral pulses 2+ and equal in all extremities. Brisk capillary refill in all extremities. 5.RESP: Slightly labored respiratory effort, O2 87%, mild diffuse wheezes, minimal crackles in the bases bilaterally. 6.GI: Soft, Nontender/Nondistended, No hepatosplenomegaly. No guarding or rebound. 7.MSK: Normocephalic/Atraumatic, Extremities w/o deformity or ttp No cyanosis or clubbing, Normal movement of all extremities, no pitting edema of the lower extremities, no calf tenderness. 8.Skin: Warm, Dry. No rashes or lesions. 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 Sensation grossly intact, no focal neurologic deficits. 10.Psych: (AAO) x3. Appropriate mood and affect Course Vital Signs Vital signs: Vital Signs Temperature 37.5 C 12/05/19 10:50 Pulse 78 12/05/19 10:50 Respiratory Rate 24 12/05/19 10:50 Blood Pressure 160/89 H 12/05/19 10:50 Pulse Oximetry 89 L 12/05/19 10:50 Temperature 37.5 C 12/05/19 10:50 Temperature Source Temporal Artery Scan 12/05/19 10:50 Pulse 78 12/05/19 10:50 Respiratory Rate 24 12/05/19 10:50 Blood Pressure 160/89 H 12/05/19 10:50 Blood Pressure Position Sitting 12/05/19 10:50 Pulse Oximetry 89 L 12/05/19 10:50 Oxygen Delivery Method Room Air 12/05/19 10:50 Oxygen Flow Rate 0 12/05/19 10:50
[2019-12-05] MEDS: MAGNESIUM SULFATE 2 GM/50 ML BAG IVPB (11:07)
[2019-12-05] MEDS: methylPREDNISolone SUCC 125 MG VIAL IVP (11:07)
[2019-12-05] MEDS: Albuterol/Ipratropium 3 ML UPD VIAL 9 ML UPD (11:08)
[2019-12-05 11:09] LABS: BE (Venous) -3.2 mmol/L (-3-3); HCO3 (Venous) 22 mmol/L (22-28); O2 Sat (Venous) 55 % (70-80); TCO2 (Venous) 21 mmol/L (22-29); pCO2 (Venous) 39 mm/Hg (34-47); pH (Venous) 7.36 (7.35-7.45); pO2 (Venous) 30 mm/Hg (28-44)
[2019-12-05 11:28] LABS: Abs Immature Grans 0.01 k/cumm (0.0-0.09); Absolute Basophil Count 0.05 k/cumm (0.0-0.2); Absolute Eosinophil Count 0.37 k/cumm (0.0-0.7); Absolute Lymphocyte Count 1.68 k/cumm (1.2-3.4); Absolute Monocyte Count 1.02 k/cumm (0.11-0.7); Basophils % 0.5; Eosinophils % 3.4; HCT 29.8 % (40.0-50.0); HGB 9.7 g/dL (13.5-17.5); Immature Grans % 0.1 %; Lymphocytes % 15.4; Mean Corp. HGB Concentration 32.6 g/dL (32.0-36.0); Mean Corpuscular Hemoglobin 18.9 pg (27.0-33.0); Mean Corpuscular Volume 58.2 fL (80-95); Mean Platelet Volume 9.4 fL (8.0-11.0); Monocytes % 9.4; Neutrophils % 71.2; Platelet Count 446 x1000/uL (130-400); RBC 5.12 m/cumm (4.50-6.00); RBC Distribution Width 18.3 % (11.8-14.1); White Blood Cell Count 10.89 k/cumm (4.4-10.8)
[2019-12-05 11:32] LABS: ALT 16 U/L (16-63); AST 10 U/L (15-37); Albumin 3.2 g/dL (3.4-5.0); Alkaline Phosphatase 104 U/L (46-116); Anion Gap 12.8 mmol/L (3-11); BUN 29 mg/dL (7-18); Bilirubin, Total 1.2 mg/dL (0.2-1.0); CO2 23.2 mmol/L (21.0-32.0); CREATININE 2.27 mg/dL (0.70-1.30); Chloride 104 mmol/L (98-107); Estimated GFR 28.94 (mL/min/1.73m2); Glucose 104 mg/dL (74-106); Magnesium 2.3 mg/dL (1.8-2.4); NT-proBNP 3353 pg/mL (<300); Potassium 4.1 mmol/L (3.5-5.1); Sodium 140 mmol/L (136-145); Total Protein 7.7 g/dL (6.4-8.2)
[2019-12-05 11:34] LABS: PTT Activated 30.8 sec (21.0-31.4); Prothrombin Time 9.6 sec (9.3-11.0)
[2019-12-05 11:36] LABS: Troponin I < 0.05 ng/Ml (<0.06)
[2019-12-05 11:59] LABS: Absolute Neutrophil Count 7.75 k/cumm (1.2-6.7)
--- NOTE | 2019-12-05 12:00 | DI.RAD_ITS ---
EXAM: XR CHEST 2V PA LATERAL INDICATION: SOB, cough, productive sputum, hx of CHF. COMPARISON: XR PORTABLE CHEST AP from 05/10/2019 TECHNIQUE: 2D digital imaging was performed. FINDINGS: Heart is stable at the upper limits of normal. There is prominence of the pulmonary vasculature. Mi ld prominence of the interstitium is noted. These findings may represent pulmonary edema. No focal consolidating infiltrate is present. No gross effusions or pneumothoraces are identified. Degenerat diana changes are seen in the spine. IMPRESSION: Findings suspicious for mild pulmonary edema.
[2019-12-05 12:03] LABS: Anisocytosis 1+; Diff Comment RBC Morph Reviewed; Hypochromasia 1+; Microcytosis 2+; Polychromasia Present
[2019-12-05 12:04] LABS: Poikilocytes 1+
[2019-12-05] MEDS: Furosemide 20 MG/2 ML VIAL 10 MG IVP (12:36)
[2019-12-05] MEDS: Albuterol/Ipratropium 3 ML UPD VIAL 6 ML UPD (12:49)
[2019-12-05 14:29] LABS: Bilirubin Negative (Negative); Blood Trace-lysed (Negative); Clarity Clear (Clear); Glucose Negative (Negative); Ketones Negative (Negative); Leukocyte Esterase Negative (Negative); Nitrite Negative (Negative); Specific Gravity 1.025 (1.005-1.025); Urobilinogen 0.2 EU/dL (Up TO 0.2)
[2019-12-05 14:46] LABS: Troponin I < 0.05 ng/Ml (<0.06)
[2019-12-05 14:55] LABS: Bacteria Negative HPF (Negative); C & S Indicated? Yes; Casts Negative LPF (Negative); Crystals Negative HPF (Negative); Epithelial Cells Rare HPF (Negative); Mucus Negative (Negative)
[2019-12-05] MEDS: Furosemide 100 MG/10 ML VIAL 80 MG IVP (14:58)
[2019-12-05] MEDS: Normal Saline Flush 10 ML SYR IVP ×2 (15:00→16:27)
--- NOTE | 2019-12-05 15:35 | W.PM.HP.N ---
Date of service: 12/05/19 Time of Service: 15:35 Assessment and Plan Assessment and plan (1) COPD exacerbation: Status: Acute Assessment and plan: patient will be admitted to med/surg. continue steroids, will add doxycycline and ceftriaxone. schedule duonebs and albuterol prn. sputum culture. (2) Diastolic CHF: Status: Chronic Assessment and plan: on home torsemide, given lasix in ED, will give an additional dose on arrival to unit. monitor I&O closely, daily weights. last echo in February 2019 shows EF of 75%. will repeat echo. continue diuresis and monitor kidney functions and electrolytes closely (3) Acute on chronic renal failure: Status: Acute Assessment and plan: possible d/t worsening heart failure in combination with recent bactrim use for UTI. will diuresis and monitor I&O and kidney function closely. avoid nephrotoxic drugs, renal dosing on medications as needed. (4) HTN (hypertension): Status: Chronic Assessment and plan: will continue home medications and monitor closely. adjust medications as needed (5) Presence of stent in coronary artery in patient with coronary artery disease: Status: Acute Assessment and plan: stable with no chest pain or acute ST segment changes and cycle troponins, telemetry overnight (6) UTI (urinary tract infection): Status: Acute Assessment and plan: was on bactrim outpatient, cultures are still pending. will be on ceftriaxone for COPD exac which should cover it. (7) DVT prophylaxis: Status: Acute Assessment and plan: heparin in setting of renal failure. teds and scds (8) Discharge planning issues: Status: Acute Assessment and plan: anticipate discharge to home when medically stable. case management will be following for discharge needs. History of Present Illness History of Present Illness Chief Complaint: shortness of breath Narrative: This is a 69-year-old male with past medical history of recent MN back in February, with 1 stent, who presents for evaluation of shortness of breath. Patient states that for the last 4 days he has had shortness of breath, cough, productive green sputum. He has been taking his breathing treatments but these have not been helping his symptoms very much. He is also been having mild dysuria for the past 1 to 2 weeks, and was started on initial antibiotic which he does not recall, and then switched to Bactrim and has been continuing to take except for today. He has had no change in improvements of his urinary symptoms. He has stated that the symptoms are similar to his last MN that he had but slightly different with the productive cough component. Patient denies any other complaints at this time. He does admit that when he lies flat at night he is notably short of breath but he denies any weight gain. He denies any swelling in his lower extremities. He denies a chest tightness, arm neck or shoulder pain. His symptoms are worsened with activity. Physical exam demonstrates minimal wheezes, no calf tenderness or edema. Mild increase in respiratory work of breathing, oxygen 87% on room air. Differential includes CHF, COPD, pneumonia, but also an STEMI with his exertional dyspnea. PE unlikely. He was treated with steroids, breathing treatments, small dose of IV lasix. case was discussed with Dr Bell and he was accepted and admitted under hospitalist services for hypoxic respiratory failure, multifactoral with CHF and COPD exacerbation. he will be admitted on telemetry and serial troponins followed. 3 hour troponin and procalcitonin both negative. Review of Systems Constitutional Constitutional: Reports as per HPI, Denies chills, Denies fever(s) and Denies headache(s) Eyes Eyes: Denies change in vision ENT Ears, Nose, Mouth, and Throat: Denies headache(s) Cardiovascular Cardiovascular: Denies chest pain Respiratory Respiratory: Reports change in phlegm color, Reports chest congestion, Reports cough and Reports excessive phlegm production Gastrointestinal Gastrointestinal: Denies abdominal pain and Denies constipation Genitourinary Genitourinary: Reports dysuria Musculoskeletal Musculoskeletal: Denies joint swelling Neurologic Neurologic: Denies headache(s) Hematologic/Lymphatic Hematologic/Lymphatic: Denies easy bleeding and Denies easy bruising [facility] Social History Smoking/Tobacco Use Status: Former Tobacco Use Quit Date: 01/11/17 Alcohol Intake: former Year quit: 2016 Details: Former alcoholic up to 2 cases of gin per month Drug use: Never Substance use type: does not use Number of Children: 0 Pets and animals: Yes Pets and animals: dog(s) What is your relationship status?: Panel score (0-1 are the most socially isolated patients): 1 Do you feel safe at home: Yes Do you feel safe in your relationship?: Yes Meds Home Medications and Allergies Home Medications Medication Instructions Recorded Confirmed Type albuterol sulfate [ProAir HFA] 2 puff INHALATION Q4H PRN PRN #1 04/29/17 05/10/19 Rx inh Bevespi Aerosphere 2 puff INHALATION QAM AND QPM 02/19/19 12/05/19 History amlodipine 10 mg PO DAILY 02/19/19 12/05/19 History ipratropium-albuterol 3 ml IH Q6H #90 ml 02/19/19 12/05/19 Rx polyethylene glycol 3350 [GlycoLax] 17 g PO DAILY PRN 02/19/19 12/05/19 History terazosin 1 mg PO DAILY 02/19/19 12/05/19 History torsemide 20 mg PO DAILY 02/19/19 12/05/19 History aspirin [Aspir-81] 81 mg PO DAILY 05/10/19 12/05/19 History bupropion HCl 150 mg PO QAM 05/10/19 05/10/19 History carvedilol 12.5 mg PO BID 05/10/19 12/05/19 History clopidogrel [Plavix] 75 mg PO DAILY 05/10/19 12/05/19 History pantoprazole 40 mg PO DAILY 05/10/19 12/05/19 History Symbicort 2 puff INHALATION BID #6.9 gm 05/13/19 Rx fluticasone propionate 50 1 inh IH DAILY each 12/04/19 History mcg/actuation blister powder for inhalation nitroglycerin 0.4 mg sublingual 0.4 mg SL Q5M PRN 12/04/19 12/05/19 History tablet rosuvastatin 40 mg tablet 40 mg PO DAILY 12/04/19 12/05/19 History cefpodoxime 200 mg PO BID #14 tab 12/06/19 Rx doxycycline hyclate 100 mg PO BID #14 cap 12/06/19 Rx ferrous sulfate 325 mg PO BID #60 tab 12/06/19 Rx prednisone 40 mg PO DAILY #8 tab 12/06/19 Rx Allergies Allergy/AdvReac Type Severity Reaction Status Date / Time lisinopril Allergy Unverified 12/05/19 11:11 codeine phosphate AdvReac Other (See Unverified 12/05/19 15:57 [From Tylenol-Codeine] Comment) Exam Const General: cooperative, healthy appearing, comfortable and no acute distress Nutritional Appearance: average body habitus Orientation: alert, awake and oriented x3 HENMT Head: normal to inspection, normocephalic and atraumatic Mouth: oral mucosae normal Resp Effort & Inspection: normal respiratory effort Auscultation: diminished lung sounds bilaterally and wheezes expiratory wheezes (faint) Cardio Rate: regular rate Rhythm: regular rhythm GI Inspection: normal to inspection Palpation: soft Auscultation: normal bowel sounds Skin General skin exam: no rashes or lesions noted Extrem General: normal to inspection and full ROM Results Labs Result diagrams: 12/06/19 06:45 12/06/19 06:45 Labs: Laboratory Results - last 24 hr 12/05/19 12/05/19 12/05/19 11:00 11:00 11:00 WBC 10.89 H RBC 5.12 Hgb 9.7 L Hct 29.8 L MCV 58.2 L MCH 18.9 L MCHC 32.6 RDW 18.3 H Plt Count 446 H MPV 9.4 Immature Gran % 0.1 Neutrophils % 71.2 Lymphocytes % 15.4 Monocytes % 9.4 Eosinophils % 3.4 Basophils % 0.5 Absolute Neutrophils 7.75 H Absolute Lymphocytes 1.68 Absolute Monocytes 1.02 H Absolute Eosinophils 0.37 Absolute Basophils 0.05 Differential Comment Rbc morph reviewed RBC Morphology See below Polychromasia Present Hypochromasia 1+ Poikilocytosis 1+ Anisocytosis 1+ Microcytosis 2+ PT 9.6 INR 1.0 APTT 30.8 VBG pH VBG pCO2 VBG pO2 VBG HCO3 VBG Total CO2 VBG O2 Saturation VBG Base Excess Sodium 140 Potassium 4.1 Chloride 104 Carbon Dioxide 23.2 Anion Gap 12.8 H BUN 29 H Creatinine 2.27 H Estimated GFR/1.73 m2 28.94 Glucose 104 Calcium 9.0 Magnesium 2.3 Total Bilirubin 1.2 H AST 10 L ALT 16 Alkaline Phosphatase 104 Troponin I < 0.05 NT-Pro-B Natriuret Pep 3353 H Total Protein 7.7 Albumin 3.2 L Urine Color Urine Clarity Urine pH Ur Specific [place] Urine Protein Urine Ketones Urine Blood Urine Nitrite Urine Bilirubin Urine Urobilinogen Ur Leukocyte Esterase Urine RBC Urine WBC Ur Epithelial Cells Urine Crystals Urine Bacteria Urine Casts Urine Mucus Ur Culture Indicated? Urine Glucose 12/05/19 12/05/19 12/05/19 11:00 11:24 14:10 WBC RBC Hgb Hct MCV MCH MCHC RDW Plt Count MPV Immature Gran % Neutrophils % Lymphocytes % Monocytes % Eosinophils % Basophils % Absolute Neutrophils Absolute Lymphocytes Absolute Monocytes Absolute Eosinophils Absolute Basophils Differential Comment RBC Morphology Polychromasia Hypochromasia Poikilocytosis Anisocytosis Microcytosis PT INR APTT VBG pH 7.36 VBG pCO2 39 VBG pO2 30 VBG HCO3 22 VBG Total CO2 21 L VBG O2 Saturation 55 L VBG Base Excess -3.2 L Sodium Potassium Chloride Carbon Dioxide Anion Gap BUN Creatinine Estimated GFR/1.73 m2 Glucose Calcium Magnesium Total Bilirubin AST ALT Alkaline Phosphatase Troponin I < 0.05 NT-Pro-B Natriuret Pep Total Protein Albumin Urine Color Yellow Urine Clarity Clear Urine pH 6.0 Ur Specific [place] 1.025 Urine Protein 100 H Urine Ketones Negative Urine Blood Trace-lysed H Urine Nitrite Negative Urine Bilirubin Negative Urine Urobilinogen 0.2 Ur Leukocyte Esterase Negative Urine RBC 3-5 H Urine WBC 10-20 H Ur Epithelial Cells Rare Urine Crystals Negative Urine Bacteria Negative Urine Casts Negative Urine Mucus Negative Ur Culture Indicated? Yes Urine Glucose Negative Last Vital Signs Temp 37.5 C 12/05/19 10:50 Pulse 74 12/05/19 13:11 Resp 24 12/05/19 14:26 BP 169/64 H 12/05/19 13:11 Pulse Ox 92 L 12/05/19 14:24
[2019-12-05 15:38] LABS: Procalcitonin 0.2 ng/mL
[2019-12-05] MEDS: Acetaminophen 325 MG TAB 650 MG PO (16:26)
[2019-12-05] MEDS: cefTRIAXone 1 GM/50 ML BAG IVPB (16:26)
[2019-12-05] MEDS: Heparin 5,000 UNITS/ML VIAL 5000 UNITS SC (16:26)
[2019-12-05] MEDS: DOXYCYCLINE 100 MG in Normal Saline 100 ML IVPB (17:45)
[2019-12-05] MEDS: Nicotine 21 MG/24 HR PATCH TD (17:52)
[2019-12-05] MEDS: Albuterol/Ipratropium 3 ML UPD VIAL UPD (17:54)
--- NOTE | 2019-12-05 19:03 | PDOC.CMIN ---
Care Management Initial Assess REASON FOR HOSPITALIZATION:: CHF Exacervation, COPD Exacerbation, [facility] PAST MEDICAL HISTORY/PAST SURGICAL HISTORY:: Alcoholism in recovery, CHF, COPD, CKD, essential hypertension, hyperlipidemia, hypospadias in male, Non-STEMI, bilat intraocular lens implants, tonsillectomy PREVIOUS FUNCTIONAL STATUS/SOCIAL/FAMILY SUPPORTS:: Paul resides in [place], [place] with his , Luma. His is independent at baseline though struggles with ongoing respiratory issues for some time. Paul and Luma's family reside outside of [place] but they reports a good natural support system of friends locally. CURRENT FUNCTIONAL STATUS:: Paul was sitting on the side of his bed when CM met with him. He was pleasant in interaction and forthcoming with information. He reported being hungry and asked for a snack, which CM provided. ADVANCE DIRECTIVES:: None on file at [facility]. Has patient been provided with information about the portal?: No Did the patient sign up for the portal?: No CODE STATUS:: Full Code INSURANCE COVERAGE / FINANCIAL ISSUES:: [employer]. Medicare C CURRENT HOME/COMMUNITY SERVICES/EQUIPMENT:: No current services or equipment reported at this time. PRIMARY CARE PHYSICIAN:: [facility] - Rogers Watkins MD POTENTIAL DISCHARGE NEEDS:: Follow up appointments with PCP, evaluation for home O2. Paul reports he was scheduled to see Dr. Watkins today and planned to discuss possbility of attaining home O2. PATIENT/FAMILY EDUCATION NEEDS:: Review of DME options/providers, qualification requirement for home O2, review of discharge instructions, discuss [employer]. ANTICIPATED BARRIERS TO DISCHARGE:: None identified. TRANSPORTATION:: Via private vehicle with Luma. PLAN:: Paul will return home when ready per MD. He will follow up with his PCP and plan of care as prescribed. He is interested in home O2; undetermined if he will qualify at this time; will require RT evaluation. CM will continue to follow and support discharge planning considerations. Paul will transport via private vehicle with his , Luma.
[2019-12-05] MEDS: guaiFENesin 600 MG TABCR PO (20:24)
[2019-12-05] MEDS: Carvedilol 12.5 MG TAB PO (20:24)
[2019-12-05 20:28] LABS: Troponin I < 0.05 ng/Ml (<0.06)
[2019-12-06] VITALS (8 sets, daily range): BP systolic 184; BP diastolic 70; PULSE 82–90; RESP 1–22; TEMP 36.7; O2SAT 93–99
[2019-12-06] MEDS: Heparin 5,000 UNITS/ML VIAL 5000 UNITS SC (04:41)
[2019-12-06] MEDS: DOXYCYCLINE 100 MG in Normal Saline 100 ML IVPB (05:31)
[2019-12-06] MEDS: Albuterol/Ipratropium 3 ML UPD VIAL UPD ×2 (05:31→11:51)
[2019-12-06] MEDS: Normal Saline Flush 10 ML SYR IVP (06:35)
[2019-12-06 07:36] LABS: Abs Immature Grans 0.04 k/cumm (0.0-0.09); Absolute Monocyte Count 0.64 k/cumm (0.11-0.7); HCT 29.9 % (40.0-50.0); HGB 9.8 g/dL (13.5-17.5); Immature Grans % 0.3 %; Lymphocytes % 7.6; Mean Corp. HGB Concentration 32.8 g/dL (32.0-36.0); Mean Corpuscular Hemoglobin 18.7 pg (27.0-33.0); Mean Corpuscular Volume 57.2 fL (80-95); Mean Platelet Volume 9.5 fL (8.0-11.0); Monocytes % 5.5; Neutrophils % 86.6; RBC 5.23 m/cumm (4.50-6.00); RBC Distribution Width 18.2 % (11.8-14.1); White Blood Cell Count 11.64 k/cumm (4.4-10.8)
[2019-12-06 07:50] LABS: Absolute Lymphocyte Count 0.88 k/cumm (1.2-3.4); Absolute Neutrophil Count 10.08 k/cumm (1.2-6.7)
[2019-12-06 07:51] LABS: BUN 40 mg/dL (7-18); Calcium 9.7 mg/dL (8.5-10.1); Chloride 102 mmol/L (98-107); Glucose 141 mg/dL (74-106); Potassium 4.4 mmol/L (3.5-5.1); Sodium 139 mmol/L (136-145)
[2019-12-06 07:53] LABS: Troponin I < 0.05 ng/Ml (<0.06)
[2019-12-06] MEDS: Pantoprazole 40 MG TABCR PO (08:19)
[2019-12-06] MEDS: predniSONE 20 MG TAB 40 MG PO (08:19)
[2019-12-06] MEDS: Aspirin E.C. 81 MG TABEC PO (08:19)
[2019-12-06] MEDS: Rosuvastatin 10 MG TAB 40 MG PO (08:19)
[2019-12-06] MEDS: amLODIPine 10 MG TAB PO (08:20)
[2019-12-06] MEDS: guaiFENesin 600 MG TABCR PO (08:20)
[2019-12-06] MEDS: Clopidogrel 75 MG TAB PO (08:21)
[2019-12-06] MEDS: buPROPion-XL 150 MG TABCR PO (08:21)
[2019-12-06] MEDS: Carvedilol 12.5 MG TAB PO (08:21)
[2019-12-06 08:34] LABS: Platelet Count 447 x1000/uL (130-400)
[2019-12-06 08:35] LABS: Anisocytosis 2+; Diff Comment RBC Morph Reviewed; Hypochromasia 3+; Microcytosis 3+; Poikilocytes 3+; Polychromasia Present
--- NOTE | 2019-12-06 11:05 | W.PM.DS.N ---
Date of service: 12/06/19 Time of Service: 11:05 DS: Diagnosis Discharge Diagnosis (1) COPD exacerbation: Status: Acute (2) Diastolic CHF: Status: Chronic (3) Acute on chronic renal failure: Status: Acute (4) HTN (hypertension): Status: Chronic (5) Presence of stent in coronary artery in patient with coronary artery disease: Status: Acute (6) UTI (urinary tract infection): Status: Acute (7) Microcytic anemia: Status: Acute Discharge Plan Disposition Patient Disposition: HOME Condition: Good Discharge Details Chief Complaint: SOB Clinical Impression: COPD exacerbation, CHF exacerbation, Breath shortness Reason For Visit: CHF EXAC,COPD EXAC, ACUTE KIDNEY INJURY Admit Date/Time: 12/05/19 12:22 Admit Provider: Shanti Bell Attending Provider: Shanti Bell Primary Care Provider: Bryant Watkins ED Provider: Manuel Nguyen Hospital Course Hospital Course: This is a 69-year-old male with past medical history of recent VT back in February, with 1 stent, who presents for evaluation of shortness of breath. Patient states that for the last 4 days he has had shortness of breath, cough, productive green sputum. He has been taking his breathing treatments but these have not been helping his symptoms very much. He is also been having mild dysuria for the past 1 to 2 weeks, and was started on initial antibiotic which he does not recall, and then switched to Bactrim and has been continuing to take except for today. He has had no change in improvements of his urinary symptoms. He has stated that the symptoms are similar to his last VT that he had but slightly different with the productive cough component. Patient denies any other complaints at this time. He does admit that when he lies flat at night he is notably short of breath but he denies any weight gain. He denies any swelling in his lower extremities. He denies a chest tightness, arm neck or shoulder pain. His symptoms are worsened with activity. Physical exam demonstrates minimal wheezes, no calf tenderness or edema. Mild increase in respiratory work of breathing, oxygen 87% on room air. Differential includes CHF, COPD, pneumonia, but also an STEMI with his exertional dyspnea. PE unlikely. He was treated with steroids, breathing treatments, small dose of IV lasix. case was discussed with Dr Bell and he was accepted and admitted under hospitalist services for hypoxic respiratory failure, multifactoral with CHF and COPD exacerbation. he will be admitted on telemetry and serial troponins followed. 3 hour troponin and procalcitonin both negative. Overnight patient remained stable, no fevers, hemodynamically stable. weaned off oxygen and oxygenating well on room air. he is eating and drinking well, voiding well. his creatinine slightly improved. We tried to schedule an echocardiogram but was not able to schedule so will need follow up outpatient through primary care provider. last Echo was in February 2019 with EF of 75%. Also found to be anemic with a hemoglobin on 9.7 which stayed stable at 9.8. He was found to be iron deficient and was started on iron supplementation. Home Meds and New Rx's Prescriptions: New ferrous sulfate 325 mg (65 mg iron) Tablet 325 mg PO BID Qty: 60 RF: 0 cefpodoxime 200 mg tablet 200 mg PO BID Qty: 14 RF: 0 Continued fluticasone propionate 50 mcg/actuation blister with device 1 inh IH DAILY RF: 0 nitroglycerin 0.4 mg tablet, sublingual 0.4 mg SL Q5M PRNRF: 0 rosuvastatin 40 mg tablet 40 mg PO DAILY RF: 0 carvedilol 12.5 mg Tablet 12.5 mg PO BID RF: 0 clopidogrel [Plavix] 75 mg Tablet 75 mg PO DAILY RF: 0 aspirin [Aspir-81] 81 mg Tablet,Delayed Release (Dr/Ec) 81 mg PO DAILY RF: 0 pantoprazole 40 mg Tablet,Delayed Release (Dr/Ec) 40 mg PO DAILY RF: 0 bupropion HCl 150 mg Tablet Extended Release 24 Hr 150 mg PO QAM RF: 0 Symbicort 80-4.5 mcg/actuation Hfa Aerosol Inhaler 2 puff Inhalation BID Qty: 6.9 RF: 0 albuterol sulfate [ProAir HFA] 200 PUFF HFA aerosol inhaler 2 puff Inhalation Q4H PRN PRNQty: 1 RF: 0 torsemide 20 mg Tablet 20 mg PO DAILY RF: 0 terazosin 1 mg Capsule 1 mg PO DAILY RF: 0 amlodipine 10 mg Tablet 10 mg PO DAILY RF: 0 polyethylene glycol 3350 [GlycoLax] 17 gram/dose Powder 17 g PO DAILY PRNRF: 0 Bevespi Aerosphere 9-4.8 mcg Hfa Aerosol Inhaler 2 puff INHALATION QAM AND QPM RF: 0 ipratropium-albuterol 0.5 mg-3 mg(2.5 mg base)/3 mL solution for nebulization 3 ml IH Q6H Qty: 90 RF: 0 prednisone 20 mg Tablet 40 mg PO DAILY Qty: 8 RF: 0 doxycycline hyclate 100 mg capsule 100 mg PO BID Qty: 14 RF: 0 Discontinued prednisone 20 mg Tablet 60 mg PO BID Qty: 35 RF: 0 cefuroxime axetil 500 mg Tablet 500 mg PO BID Qty: 10 RF: 0 Discharge Instructions Instructions: Heart Failure (DC), COPD (Chronic Obstructive Pulmonary Disease) (DC) Stand Alone Forms: Nursing Discharge Form Referrals: Bryant Watkins MD [Primary Care Provider] - 12/17/19 10:40 am (Please arrive at your appointment at 10:30. ) Activity:: Activity as Tolerated Equipment/Supplies:: No Equipment Needed Diet:: As Tolerated Discharge Orders Discharge Orders: Discharge Order (Routine); Ordered 12/06/19 Ordered By: Dania Perez Discharge Data Discharge Date/Time-TO BE ENTERED AT DEPARTURE: 12/06/19 13:52 DS: Summary Status at Discharge Functional status at discharge: independent ambulation Overall status at discharge: patient is back to baseline Mental Status: mental status grossly normal Speech and Movement: speech and movement normal Mood: congruent mood Affect: normal affect Exam Const General: cooperative, healthy appearing, comfortable and no acute distress Nutritional Appearance: average body habitus Orientation: alert, awake and oriented x3 HENMT Head: normal to inspection, normocephalic and atraumatic Mouth: oral mucosae normal Resp Effort & Inspection: normal respiratory effort Auscultation: diminished lung sounds Cardio Rate: regular rate Rhythm: regular rhythm GI Inspection: normal to inspection Palpation: soft Auscultation: normal bowel sounds Skin General skin exam: no rashes or lesions noted Neuro General: alert, awake and oriented x3 Cranial Nerves: CN's II-XI intact bilaterally Cognition: normal cognition Speech: speech normal Extrem General: normal to inspection and full ROM Psych Mental Status: mental status grossly normal Speech and Movement: speech and movement normal Mood: congruent mood Affect: normal affect DS: Data Vitals/I&O Vitals and I&O: Vital Signs Temperature 36.7 C 12/06/19 07:30 Temperature Source Tympanic 12/06/19 07:30 Pulse 89 12/06/19 07:30 Pulse Rhythm Regular 12/06/19 07:30 Pulse Strength Normal 12/05/19 12:31 Pulse 72 12/05/19 13:01 Respiratory Rate 18 12/06/19 07:30 Respiratory Effort 12/06/19 07:30 Respiratory Depth Normal 12/06/19 07:30 Respiratory Pattern Normal 12/06/19 07:30 Blood Pressure 184/70 H 12/06/19 07:30 Blood Pressure Mean 88 12/05/19 13:01 Blood Pressure Position Sitting 12/05/19 12:31 Pulse Oximetry 95 12/06/19 10:19 Oxygen Delivery Method Room Air 12/06/19 10:19 Oxygen Flow Rate 0 12/06/19 10:19 Pain Level 0 12/06/19 07:30 Comment 12/05/19 23:15 Intake & Output 12/05/19 12/05/19 12/06/19 11:59 23:59 11:59 Intake Total 1040 / 1040 340 / 340 Output Total 1150 / 1150 600 / 600 Balance -110 / -110 -260 / -260 Weight 96.162 kg 96.162 kg 115.8 kg Intake: IV 200 / 200 100 / 100 Oral 840 / 840 240 / 240 Output: Urine 1150 / 1150 600 / 600 Other: Urine Color Yellow Yellow Urine Appearance Clear Clear Urine Odor Normal Voiding Methods Urinal Toilet Urinal Data Completed and Pending Labs on day of discharge: Labs from last 24 hours 12/06/19 12/06/19 12/06/19 10:05 10:02 06:45 WBC 11.64 H RBC 5.23 Hgb 9.8 L Hct 29.9 L MCV 57.2 L MCH 18.7 L MCHC 32.8 RDW 18.2 H Plt Count 447 H MPV 9.5 Immature Gran % 0.3 Neutrophils % 86.6 Lymphocytes % 7.6 Monocytes % 5.5 Eosinophils % 0.0 Basophils % 0.0 Absolute Neutrophils 10.08 H Absolute Lymphocytes 0.88 L Absolute Monocytes 0.64 Absolute Eosinophils 0.00 Absolute Basophils 0.00 Differential Comment Rbc morph reviewed RBC Morphology See below Polychromasia Present Hypochromasia 3+ Poikilocytosis 3+ Anisocytosis 2+ Microcytosis 3+ PT INR APTT VBG pH VBG pCO2 VBG pO2 VBG HCO3 VBG Total CO2 VBG O2 Saturation VBG Base Excess Sodium Potassium Chloride Carbon Dioxide Anion Gap BUN Creatinine Estimated GFR/1.73 m2 Glucose Calcium Magnesium Iron Pending TIBC Pending Transferrin % Sat Pending Ferritin Pending Total Bilirubin AST ALT Alkaline Phosphatase Troponin I NT-Pro-B Natriuret Pep Total Protein Albumin Procalcitonin Urine Color Urine Clarity Urine pH Ur Specific [place] Urine Protein Urine Ketones Urine Blood Urine Nitrite Urine Bilirubin Urine Urobilinogen Ur Leukocyte Esterase Urine RBC Urine WBC Ur Epithelial Cells Urine Crystals Urine Bacteria Urine Casts Urine Mucus Ur Culture Indicated? Urine Glucose 12/06/19 12/05/19 12/05/19 06:45 19:55 14:10 WBC RBC Hgb Hct MCV MCH MCHC RDW Plt Count MPV Immature Gran % Neutrophils % Lymphocytes % Monocytes % Eosinophils % Basophils % Absolute Neutrophils Absolute Lymphocytes Absolute Monocytes Absolute Eosinophils Absolute Basophils Differential Comment RBC Morphology Polychromasia Hypochromasia Poikilocytosis Anisocytosis Microcytosis PT INR APTT VBG pH VBG pCO2 VBG pO2 VBG HCO3 VBG Total CO2 VBG O2 Saturation VBG Base Excess Sodium 139 Potassium 4.4 Chloride 102 Carbon Dioxide 20.0 L Anion Gap 17.0 H BUN 40 H D Creatinine 2.20 H Estimated GFR/1.73 m2 30.00 Glucose 141 H Calcium 9.7 Magnesium Iron TIBC Transferrin % Sat Ferritin Total Bilirubin AST ALT Alkaline Phosphatase Troponin I < 0.05 < 0.05 NT-Pro-B Natriuret Pep Total Protein Albumin Procalcitonin 0.2 Urine Color Urine Clarity Urine pH Ur Specific Anita Urine Protein Urine Ketones Urine Blood Urine Nitrite Urine Bilirubin Urine Urobilinogen Ur Leukocyte Esterase Urine RBC Urine WBC Ur Epithelial Cells Urine Crystals Urine Bacteria Urine Casts Urine Mucus Ur Culture Indicated? Urine Glucose 12/05/19 12/05/19 12/05/19 14:10 11:24 11:00 WBC RBC Hgb Hct MCV MCH MCHC RDW Plt Count MPV Immature Gran % Neutrophils % Lymphocytes % Monocytes % Eosinophils % Basophils % Absolute Neutrophils Absolute Lymphocytes Absolute Monocytes Absolute Eosinophils Absolute Basophils Differential Comment RBC Morphology Polychromasia Hypochromasia Poikilocytosis Anisocytosis Microcytosis PT INR APTT VBG pH 7.36 VBG pCO2 39 VBG pO2 30 VBG HCO3 22 VBG Total CO2 21 L VBG O2 Saturation 55 L VBG Base Excess -3.2 L Sodium Potassium Chloride Carbon Dioxide Anion Gap BUN Creatinine Estimated GFR/1.73 m2 Glucose Calcium Magnesium Iron TIBC Transferrin % Sat Ferritin Total Bilirubin AST ALT Alkaline Phosphatase Troponin I < 0.05 NT-Pro-B Natriuret Pep Total Protein Albumin Procalcitonin Urine Color Yellow Urine Clarity Clear Urine pH 6.0 Ur Specific Anita 1.025 Urine Protein 100 H Urine Ketones Negative Urine Blood Trace-lysed H Urine Nitrite Negative Urine Bilirubin Negative Urine Urobilinogen 0.2 Ur Leukocyte Esterase Negative Urine RBC 3-5 H Urine WBC 10-20 H Ur Epithelial Cells Rare Urine Crystals Negative Urine Bacteria Negative Urine Casts Negative Urine Mucus Negative Ur Culture Indicated? Yes Urine Glucose Negative 12/05/19 12/05/19 12/05/19 11:00 11:00 11:00 WBC 10.89 H RBC 5.12 Hgb 9.7 L Hct 29.8 L MCV 58.2 L MCH 18.9 L MCHC 32.6 RDW 18.3 H Plt Count 446 H MPV 9.4 Immature Gran % 0.1 Neutrophils % 71.2 Lymphocytes % 15.4 Monocytes % 9.4 Eosinophils % 3.4 Basophils % 0.5 Absolute Neutrophils 7.75 H Absolute Lymphocytes 1.68 Absolute Monocytes 1.02 H Absolute Eosinophils 0.37 Absolute Basophils 0.05 Differential Comment Rbc morph reviewed RBC Morphology See below Polychromasia Present Hypochromasia 1+ Poikilocytosis 1+ Anisocytosis 1+ Microcytosis 2+ PT 9.6 INR 1.0 APTT 30.8 VBG pH VBG pCO2 VBG pO2 VBG HCO3 VBG Total CO2 VBG O2 Saturation VBG Base Excess Sodium 140 Potassium 4.1 Chloride 104 Carbon Dioxide 23.2 Anion Gap 12.8 H BUN 29 H Creatinine 2.27 H Estimated GFR/1.73 m2 28.94 Glucose 104 Calcium 9.0 Magnesium 2.3 Iron TIBC Transferrin % Sat Ferritin Total Bilirubin 1.2 H AST 10 L ALT 16 Alkaline Phosphatase 104 Troponin I < 0.05 NT-Pro-B Natriuret Pep 3353 H Total Protein 7.7 Albumin 3.2 L Procalcitonin Urine Color Urine Clarity Urine pH Ur Specific Anita Urine Protein Urine Ketones Urine Blood Urine Nitrite Urine Bilirubin Urine Urobilinogen Ur Leukocyte Esterase Urine RBC Urine WBC Ur Epithelial Cells Urine Crystals Urine Bacteria Urine Casts Urine Mucus Ur Culture Indicated? 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
[2019-12-06] MEDS: Torsemide 20 MG TAB PO (11:12)
[2019-12-06] MEDS: Ferrous Sulfate 325 MG TAB PO (11:12)
[2019-12-06 11:27] LABS: Iron 43 ug/dL (65-175); Total Iron Binding Capacity 206 ug/dL (250-450); Transferrin Sat 21 % (20-55)
[2019-12-06 12:12] LABS: Ferritin > 2000 ng/mL (26-388)
[2019-12-06] MEDS: cefTRIAXone 1 GM/50 ML BAG IVPB (12:36)
--- NOTE | 2019-12-06 13:11 | W.NUTCONSULT ---
Date of service: 12/06/19 Time of Service: 13:12 Nutritional Consult ASSESSMENT: 69 year old male admitted for CHF exacerbation. PMH: COPD, CKD, HTN, class 2 obesity. Met with Paul and his partner and discussed importance of following low salt diet going forward in regards to improving CHF. He reports that he has been doing so since last year. Provided him with my contact information if outpatient nutrition counseling desired. To discharge home today. MONITORING AND EVALUATION: weight, po intake, labs Time Spent in Nutritional Counseling and Treatment: 15 min spent face to face
--- NOTE | 2019-12-06 13:17 | PDOC.CMDIS ---
- If Service Date Differs Date of service: 12/06/19 Time of Service: 13:18 LACE Index Scoring Tool - Questions: Length of Stay (in days): 1 Acuity (Admit via E.D.?): Yes E.D. Visits: 4 - Answers: Total Score: 8 Risk of Readmission: Low Risk Care Management Discharge Reason for Hospitalization: CHF Exacervation, COPD Exacerbation, CARLOS MANUEL Discharge Plan: Paul is being discharged today. CM provided him with CHF and COPD teaching materials. He also received advance directive forms which he will return to complete with CM or with his spouse. No additional services at this time Paul states he feels ready to return home. Patient/Family Education Needs: Discharge education, limitations, follow-up plan of care, asked me 3 and self-management.
== END 2019-12-06 13:52 | disposition home or self-care (01) ==
LOC: ER 12:49 → MS 13:18
PROVIDERS: Nurse Practitioner Acute Care; Admitting Provider Internal Medicine; Emergency Provider Student in an Organized Health Care Education/Training Program; PCP Internal Medicine; Visit Provider Internal Medicine
DX: J44.1 Chronic obstructive pulmonary disease with (acute) exacerbation (principal); I50.32 Chronic diastolic (congestive) heart failure; N17.9 Acute kidney failure, unspecified; N39.0 Urinary tract infection, site not specified; J96.11 Chronic respiratory failure with hypoxia; D64.9 Anemia, unspecified; N18.9 Chronic kidney disease, unspecified; I10 Essential (primary) hypertension; I25.10 Atherosclerotic heart disease of native coronary artery without angina pectoris; Z95.5 Presence of coronary angioplasty implant and graft; D50.9 Iron deficiency anemia, unspecified; I25.2 Old myocardial infarction
CPT/HCPCS: 36415; 80048; 80053; 82805; 84145; 93005; 94618; 94640; 96365; 96366; 96375; 99285; 71046; 81003; 81015; 82272; 82728; 83540; 83550; 83735; 83880; 84484; 85025; 85610; 85730; 87086; 93010; 99217; 99219; G0378; J0696; J1644; J1940; J1941; J2930; J3490; J7512; J7620

== ENCOUNTER 2019-12-17 13:00 | Outpatient (REF) | payer OTHER, SELFPAY ==
[2019-12-19 14:32] LABS: PSA, Screening 3.8 ng/mL (0.0-4.5)
== END 2019-12-17 13:20 ==
LOC: NCHCN 13:00
PROVIDERS: PCP Internal Medicine; Visit Provider Internal Medicine
DX: Z12.5 Encounter for screening for malignant neoplasm of prostate (principal)
CPT/HCPCS: 84153

== ENCOUNTER 2019-12-31 02:08 | Outpatient (CLI) | payer OTHER, SELFPAY ==
--- NOTE | 2019-12-31 07:29 | DI.US_ITS ---
APPROVED REPORT EXAM: Comprehensive 2D, Doppler, and color-flow Echocardiogram Patient Location: Out-Patient Shirt Presser: Edilia Miller RDCS (AE) Rhythm: Bradycardia Indications: diastolic heart failure i50.30 Conclusion Moderate concentric left ventricular hypertrophy with an estimated ejection fraction of 55 to 60%. T here are no segmental wall motion abnormalities. There is stage I diastolic dysfunction The left atrium is moderately dilated The right atrium, right ventricle are normal in size. Right ventricular systolic function is normal Mitral leaflets are mildly thickened. There is trace to mild mitral regurgitation The aortic and tricuspid valves are structurally and functionally normal The aortic root is borderline dilated measuring 3.6 cm Wall motion Left Ventricle The left ventricle is normal size. The left ventricular systolic function is normal. The left ventric ular ejection fraction is within the normal range. Moderate left ventricular hypertrophy. There is no rmal LV segmental wall motion. Transmitral Doppler flow pattern suggests impaired LV relaxation. LVEF is estimated to be 55-60%. Right Ventricle The right ventricle is normal size. The right ventricular systolic function is normal. Atria Left atrium is moderately dilated. The right atrium size is normal. Aortic Valve The aortic valve is normal in structure. There is no aortic valvular stenosis. No aortic regurgitatio n is present. Mitral Valve Mitral valve leaflets are mildly thickened. Trace to mild mitral regurgitation. Tricuspid Valve The tricuspid valve is normal in structure. There is no tricuspid valve regurgitation noted. Great Vessels Aortic root is mildly dilated. IVC is normal in size and collapses >50% with inspiration. Pericardium Prominent anterior epicardial fat pad is present. 2D Dimensions IVSD d PLAX 1.68 cm M: 0.6-1.2 LV Vol A2C d MOD 161.4 mL LVPW d PLAX 1.73 cm M: 0.6 - 1.2 LV Vol A4C d MOD 107.2 mL LVID d PLAX 5.66 cm M: 4.2 - 5.8 LA vol/ BSA A2C s A-L 37.6 mL/m2 LVDs 3.60 cm M: 2.5 - 4.0 LA vol/ BSA A4C s A-L 56.1 mL/m2 Ao Root d 3.60 cm M: 3.1 - 3.7 LA Vol/ BSA Biplane s A-L 46.5 mL/m2 RVID Base (AP4) 2.89 cm (M/F) 2.5-4.1 LA Area A4C s MOD 29.45 cm2 RA Area A4C 19.06 cm2 LA Area A2C s MOD 23.81 cm2 RA Vol/ BSA A4C s A-L 25.1 mL/m2 LV EF A4C MOD 52.5 % Ao Asc Diam d 3.40 cm M: 2.6 - 3.4 LV EF A2C MOD 59.4 % LV EF Teichholz 64.3 % LV EF Biplane MOD 53.1 % LVEF (Smith's) 53.10 % M: 52 - 72 IVC Diam exp d SLAX 1.91 cm LV Volume 96.61 mL M: 62 - 150 LV Volume Index 46.44 mL/m2 M: 34 - 74 LV Vol Biplane MOD 130.6 mL FS 35.50 % M-Mode TAPSE 1.96 cm (M/F) <1.7 LV Diastology MV E' medial 0.055 (>0.07 m/s) E/A Ratio 1.4 LV E/e MED 14.70 (<14) PV S/D Ratio 1.01 MV E' lateral 0.072 (>0.1 m/s) MV E Vmax 0.81 (0.4-1.3 m/s) LV E/e LAT 11.20 (<14) MV A Vmax 0.60 (0.4-1.3 m/s) MV E/E' medial 14.75 MV E/A Ratio 1.28 MV E/E' lateral 11.23 Aortic Valve LVOT Area 3.05 cm2 AoV Area Vmax 2.05 cm2 LVOT Vmax 0.98 m/s AoV Area/ BSA (Vmax) 0.98 cm2/m2 LVOT Mean Aristeo. 0.70 m/s [place] Mean Aristeo. 2.03 cm2 LVOT Peak Grad 3.8 mmHg [place] Mean Aristeo. Index 0.97 cm2/m2 LVOT Mean Grad 2.2 mmHg LVOT VTI 0.259 m LVOT Diam s 1.95 cm (M/F) 1.5-2.5 AoV Vmax 1.45 (0.5-1.3 m/s) Velocity Ratio 0.67 AoV Mean Aristeo. 1.05 m/s AoV Peak Grad 8.5 mmHg LVOT SV 79.05 mL AoV Mean Grad 4.8 (<5 mmHg) AoV VTI 0.370 (0.18-0.25 m) AoV Area VTI 2.14 (2.5-4.5 cm2) AoV Area/ BSA (VTI) 1.02 cm/m2 Mitral Valve Pulm Vein s 0.53 m/s RUPV S Vmax 0.53 m/s Pulm Vein d 0.53 m/s RUPV D Vmax 0.53 m/s Pulm Vein a 0.24 m/s RUPV A Vmax 0.24 m/s Pulmonary Valve PV Vmax 1.04 (0.5-1.5 m/s) RVOT Peak Gr. 3.11 mmHg PV Peak Grad 4.4 mmHg RVOT Mean Gr. 1.50 mmHg PV Mean Grad 2.0 mmHg RVOT VTI 0.193 m PV VTI 0.210 m RVOT Vmax 0.88 m/s Tricuspid Valve TR Peak Grad 15.0 mmHg TR Vmax 1.94 m/s RA Pressure 3.00 mmHg RVSP (TR) 18.0 mmHg
== END 2019-12-31 02:28 ==
PROVIDERS: PCP Internal Medicine; Visit Provider Internal Medicine
DX: I50.30 Unspecified diastolic (congestive) heart failure (principal); I50.1 Left ventricular failure, unspecified; I34.0 Nonrheumatic mitral (valve) insufficiency
CPT/HCPCS: 93306

== ENCOUNTER 2020-06-02 09:38 | Outpatient (REF) | payer OTHER, SELFPAY ==
[2020-06-02 21:26] LABS: Anion Gap 11.2 mmol/L (3-11); BUN 21 mg/dL (7-18); CO2 26.8 mmol/L (21.0-32.0); CREATININE 1.68 mg/dL (0.70-1.30); Chloride 101 mmol/L (98-107); Estimated GFR 40.96 (mL/min/1.73m2); Glucose 101 mg/dL (74-106); Potassium 4.2 mmol/L (3.5-5.1); Sodium 139 mmol/L (136-145)
[2020-06-02 21:29] LABS: HCT 38.4 % (40.0-50.0); HGB 12.2 g/dL (13.5-17.5); Mean Corp. HGB Concentration 31.8 g/dL (32.0-36.0); Mean Corpuscular Hemoglobin 18.7 pg (27.0-33.0); Mean Corpuscular Volume 58.9 fL (80-95); Mean Platelet Volume 9.7 fL (8.0-11.0); Platelet Count 367 x1000/uL (130-400); RBC 6.52 m/cumm (4.50-6.00); White Blood Cell Count 8.39 k/cumm (4.4-10.8)
[2020-06-02 22:26] LABS: Iron 60 ug/dL (65-175); Total Iron Binding Capacity 252 ug/dL (250-450); Transferrin Sat 24 % (20-55)
== END 2020-06-02 09:58 ==
LOC: NCHCN 09:38
PROVIDERS: PCP Internal Medicine; Visit Provider Internal Medicine
DX: D50.9 Iron deficiency anemia, unspecified (principal); I25.10 Atherosclerotic heart disease of native coronary artery without angina pectoris; I10 Essential (primary) hypertension
CPT/HCPCS: 80048; 85027; 83036; 83540; 83550

== ENCOUNTER 2020-06-11 03:20 | Outpatient (CLI) | payer OTHER, SELFPAY | END 2020-06-11 03:40 | PROVIDERS: PCP Internal Medicine; Visit Provider Internal Medicine | DX: J44.9 Chronic obstructive pulmonary disease, unspecified (principal) | CPT/HCPCS: 94762 ==

== ENCOUNTER → 2020-07-16 10:42 | Outpatient (BNVA) | payer OTHER, SELFPAY | PROVIDERS: PCP Internal Medicine; Referring Provider Internal Medicine; Visit Provider Nurse Practitioner Gerontology | DX: N40.1 Benign prostatic hyperplasia with lower urinary tract symptoms (principal); R35.0 Frequency of micturition; N39.0 Urinary tract infection, site not specified; R35.1 Nocturia; I13.0 Hypertensive heart and chronic kidney disease with heart failure and stage 1 through stage 4 chronic kidney disease, or unspecified chronic kidney disease; J44.9 Chronic obstructive pulmonary disease, unspecified; N18.3 Chronic kidney disease, stage 3 (moderate) | CPT/HCPCS: 99204; 99215 ==

== ENCOUNTER 2020-07-16 12:23 | Outpatient (REF) | payer OTHER, SELFPAY ==
[2020-07-16 22:39] LABS: PSA, Screening 1.9 ng/mL (0.0-4.5)
== END 2020-07-16 12:43 ==
LOC: LBN 12:23
PROVIDERS: PCP Internal Medicine; Visit Provider Nurse Practitioner Gerontology
DX: N40.1 Benign prostatic hyperplasia with lower urinary tract symptoms (principal); Z12.5 Encounter for screening for malignant neoplasm of prostate
CPT/HCPCS: 84153

== ENCOUNTER 2020-08-27 01:44 | Outpatient (CLI) | payer OTHER, SELFPAY ==
--- NOTE | 2020-08-27 11:19 | DI.CTLCSR_ITS ---
EXAM: CT CHEST LUNG CANCER SCREEN CLINICAL HISTORY: SCREENING FOR LUNG CA,Z87.891,FORMER SMOKER, TECHNIQUE: Imaging Protocol: Axial computed tomography images with coronal and sagittal reformatted images were created and reviewed COMPARISON: CR CHEST 2 VIEWS PA,LAT from 04/29/[address] chest PE abd pelvis w from 01/07/[address] chest PE abd pelvis w from 01/07/2019 CR XR CHEST 2V PA LATERAL from 12/05/2019 FINDINGS: Tracheobronchial tree: Patent where visualized. Mediastinum and Oralia: No dominant adenopathy or fluid collection. Pulmonary parenchyma: No consolidation or dominant measurable mass. No architectural distortion. Lung Nodules: There has been no change in size of the partially calcified mass in the anterior aspect of the right upper lobe since 01/07/2019. It can be identified on the chest x-ray from 04/29/2018.. No other pulmonary nodules are identified. Pleura: No effusion or pneumothorax. Heart: The heart is not dilated. Moderate coronary artery calcification is present. No significant p ericardial effusion. Aorta: Thoracic aorta non-dilated.Atherosclerosis. Upper abdomen: Cholelithiasis. No biliary ductal dilatation. Marked left renal cortical atrophy. Bones: No acute abnormality. Soft Tissues: Mild bilateral gynecomastia. Stable 2.8 x 1.3 cm soft tissue mass on the left chest wa ll. IMPRESSION: No suspicious pulmonary nodules. Lung RADS Cat 1 - Negative: No nodules and definitely benign nodules Lung-RADS 1.0 CATEGORIES: Category 0 - Prior chest CT exam(s) being located for comparison. Category 1 - Annual screening in 12 months. No nodules or definitely benign nodules. Category 2 - Annual screening in 12 months. Benign appearance. Nodules with low likelihood of becomin g active cancer. Category 3 - 6-month follow-up. Probably benign. Short-term follow-up suggested. Nodules with low lik elihood of becoming active cancer. Category 4A - 3-month follow-up and CT/PET if >8 mm in size. Suspicious finding. Findings which requi re additional testing. Category 4B - Findings which require additional testing and tissue sampling. Suspicious finding. C Added to Any of the Above - History of prior lung cancer screening. S Added to Any of the Above - Significant unexpected other finding. RADIATION DOSE DELIVERED: 83.1mGy.cm Total DLP DATA REPOSITORY: All CT scans at this facility are submitted to the National Radiology Data Registry (NRDR) Dose Index Registry (DIR) with the [employer] (A[employer]). RADIATION OPTIMIZATION: All CT scans at this facility use at least one of these dose optimization te chniques: automated exposure control; mA and/or kV adjustment per patient size (includes targeted exa ms where dose is matched to clinical indication); or iterative reconstruction.
== END 2020-08-27 02:04 ==
PROVIDERS: PCP Internal Medicine; Visit Provider Internal Medicine
DX: Z87.891 Personal history of nicotine dependence; N40.1 Benign prostatic hyperplasia with lower urinary tract symptoms; N13.8 Other obstructive and reflux uropathy; J44.9 Chronic obstructive pulmonary disease, unspecified; I13.0 Hypertensive heart and chronic kidney disease with heart failure and stage 1 through stage 4 chronic kidney disease, or unspecified chronic kidney disease; I50.9 Heart failure, unspecified; N18.9 Chronic kidney disease, unspecified
CPT/HCPCS: 99213; G0297

== ENCOUNTER 2020-09-03 10:46 | Outpatient (REF) | payer OTHER, SELFPAY ==
[2020-09-05 12:50] LABS: COVID-19 RT-PCR Result NEGATIVE (Negative)
== END 2020-09-03 11:06 ==
LOC: NCHCN 10:46
PROVIDERS: PCP Internal Medicine; Visit Provider Internal Medicine
DX: Z01.812 Encounter for preprocedural laboratory examination (principal)
CPT/HCPCS: U0003

== ENCOUNTER 2020-09-10 03:04 | Outpatient (CLI) | payer OTHER, SELFPAY ==
[2020-09-10] MEDS: Albuterol HFA 18 GM 200 PUFF INH IH (11:10)
[2020-09-10] MEDS: Inhaler, Assist Device 1 EACH MC (11:11)
--- NOTE | 2020-09-14 08:55 | W.PFT ---
Date of service: 09/10/20 Time of Service: 10:03 Pulmonary Function Test Result Interpretation Spirometry: Shows moderately severe obstructive airways disease with significant bronchodilator response Lung Volumes: No evidence of restriction, mild hyperinflation and air trapping Diffusion Capacity: Severely reduced, which is moderately reduced when corrected to alveolar volume Airway Pressure: Normal Impression Moderately severe obstructive airways disease with significant bronchodilator response, this is associated with mild hyperinflation and air trapping and severe diffusion defect Clinical Correlation therefore is recommended.
== END 2020-09-10 03:24 ==
PROVIDERS: PCP Internal Medicine; Visit Provider Internal Medicine
DX: J44.9 Chronic obstructive pulmonary disease, unspecified (principal)
CPT/HCPCS: 94060; 94726; 94729

== ENCOUNTER → 2020-10-15 10:30 | Outpatient (BNVA) | payer OTHER, SELFPAY | PROVIDERS: PCP Internal Medicine; Referring Provider Internal Medicine; Visit Provider Nurse Practitioner Gerontology | DX: N40.1 Benign prostatic hyperplasia with lower urinary tract symptoms (principal); N13.8 Other obstructive and reflux uropathy; I13.0 Hypertensive heart and chronic kidney disease with heart failure and stage 1 through stage 4 chronic kidney disease, or unspecified chronic kidney disease; N18.9 Chronic kidney disease, unspecified; I11.0 Hypertensive heart disease with heart failure | CPT/HCPCS: 99213 ==

== ENCOUNTER → 2021-05-20 10:45 | Outpatient (BNVA) | payer OTHER, SELFPAY | PROVIDERS: PCP Internal Medicine; Referring Provider Internal Medicine; Visit Provider Nurse Practitioner Gerontology | DX: N40.1 Benign prostatic hyperplasia with lower urinary tract symptoms (principal); N13.8 Other obstructive and reflux uropathy; Z79.899 Other long term (current) drug therapy | CPT/HCPCS: 99213 ==

== ENCOUNTER 2021-07-29 15:07 | Outpatient (REF) | payer OTHER, SELFPAY ==
[2021-07-29 14:08] LABS: HCT 42.4 % (40.0-50.0); HGB 12.8 g/dL (13.5-17.5); MCH 19.1 pg (27.0-33.0); MCHC 30.2 % (32.0-36.0); MPV 9.8 fL (8.0-11.0); Platelet Count 319 10^3/uL (130-400); RBC 6.69 10^6/uL (4.36-5.78); RDW 19.4 % (11.8-14.1); RDW-SD 38.7 fL; WBC 10.24 10^3/uL (4.4-10.8)
[2021-07-29 14:16] LABS: Anion Gap 9.9 mmol/L (3-11); BUN 21 mg/dL (7-18); CO2 26.1 mmol/L (21.0-32.0); CREATININE 1.7 mg/dL (0.70-1.30); Calcium 9.2 mg/dL (8.5-10.1); Chloride 104 mmol/L (98-107); Estimated GFR 40.28 (mL/min/1.73m2); Glucose 98 mg/dL (74-106); Potassium 4.9 mmol/L (3.5-5.1); Sodium 140 mmol/L (136-145)
[2021-07-29 14:17] LABS: MCV 63.4 fL (80-95)
[2021-07-29 14:41] LABS: Hemoglobin A1C 5.9 % (<5.7)
== END 2021-07-29 15:08 | disposition home or self-care (01) ==
LOC: NCHCN 15:07
PROVIDERS: PCP Internal Medicine; Visit Provider Internal Medicine
DX: R73.03 Prediabetes (principal); N18.30 Chronic kidney disease, stage 3 unspecified; I27.22 Pulmonary hypertension due to left heart disease
CPT/HCPCS: 80048; 85027; 83036

== ENCOUNTER 2021-09-16 02:15 | Outpatient (CLI) | payer OTHER, SELFPAY ==
--- NOTE | 2021-09-16 09:30 | DI.CTLCSR_ITS ---
Exam(s) CT CHEST LUNG CANCER SCREEN EXAM: CT CHEST LUNG CANCER SCREEN CLINICAL HISTORY: HX TOBACCO USE Z87.891, COPD J44.9,SCREENING FOR LUNG CA. TECHNIQUE: Imaging Protocol: Low Dose Technique CONTRAST MATERIAL: None COMPARISON: CT CT CHEST LUNG CANCER SCREEN from 08/27/2020 FINDINGS: CHEST: LUNGS: There is an unchanged pleural base 2 millimeter nodule in the posterior aspect of the left upp er lobe where the most superior aspect of the major fissure contacts the medial pleural space. This is unchanged from 08/27/2020.. The opposite-right lung there are no new focal findings. However, th ere is again noted the previously described partially calcified mass in the anterior aspect of the ri ght upper lobe which remains unchanged in size, measuring approximately 2.8 cm from the pleural surfa ce to is innermost aspect and measuring 1.6 cm at its widest point which is at the pleural contact. There are no pleural effusions. MEDIASTINUM: There is no obvious hilar nor mediastinal adenopathy. CARDIAC: Coronary artery calcification is again noted.Thickening of the anterior pericardium is again noted, consistent pericardial effusion. The maximum thickness is 11 millimeters, similar to previou s. Diameter of the thoracic aorta is normal. OTHER: Incidentally noted is cholelithiasis. No obvious adrenal masses. There is again noted and un changed cutaneous/subcutaneous density over the anterior slightly left of center chest, measuring 3 c m wide at skin surface in 1.3 cm deep, unchanged from previous. This exhibits a homogeneous internal density with fluid Hounsfield units, averaging 5 HU. Smooth posterior surface. Benign appearance.. OSSEOUS: No significant osseous lesions.. IMPRESSION: 1. Continued stable appearance of the previously described findings. No new suspicious lung nodules. 2. Pericardial effusion again noted, unchanged. Also mild gynecomastia again noted. Stable subcutan eous soft tissue mass in left chest wall 3. Lung RADS Cat 1 - Negative: No nodules and definitely benign nodules Lung-RADS 1.0 CATEGORIES: Category 0 - Prior chest CT exam(s) being located for comparison. Category 1 - Annual screening in 12 months. No nodules or definitely benign nodules. Category 2 - Annual screening in 12 months. Benign appearance. Nodules with low likelihood of becomin g active cancer. Category 3 - 6-month follow-up. Probably benign. Short-term follow-up suggested. Nodules with low lik elihood of becoming active cancer. Category 4A - 3-month follow-up and CT/PET if >8 mm in size. Suspicious finding. Findings which requi re additional testing. Category 4B - Findings which require additional testing and tissue sampling. Modifier S- Potentially clinically significant findings (non lung cancer) RADIATION DOSE DELIVERED: 96.56mGy.cm Total DLP 2.21mGy CTDIvol DATA REPOSITORY: All CT scans at this facility are submitted to the National Radiology Data Registry (NRDR) Dose Index Registry (DIR) with the [employer] (ACR). RADIATION OPTIMIZATION: All CT scans at this facility use at least one of these dose optimization te chniques: automated exposure control; mA and/or kV adjustment per patient size (includes targeted exa ms where dose is matched to clinical indication); or iterative reconstruction.
== END 2021-09-16 02:35 ==
PROVIDERS: PCP Internal Medicine; Visit Provider Internal Medicine
DX: Z12.2 Encounter for screening for malignant neoplasm of respiratory organs (principal); J44.9 Chronic obstructive pulmonary disease, unspecified; Z87.891 Personal history of nicotine dependence; J98.4 Other disorders of lung; R91.1 Solitary pulmonary nodule
CPT/HCPCS: 71271

== ENCOUNTER 2022-04-07 09:48 | Outpatient (REF) | payer MEDICARE, SELFPAY ==
[2022-04-07 14:32] LABS: HCT 43.2 % (40.0-50.0); HGB 12.9 g/dL (13.5-17.5); MCH 18.6 pg (27.0-33.0); MCHC 29.9 % (32.0-36.0); MCV 62 fL (80-95); MPV 9.7 fL (8.0-11.0); Platelet Count 325 10^3/uL (130-400); RDW 20.2 % (11.8-14.1); RDW-SD 39.7 fL; WBC 9.55 10^3/uL (4.4-10.8)
[2022-04-07 14:43] LABS: Iron 60 ug/dL (65-175); Total Iron Binding Capacity 289 ug/dL (250-450); Transferrin Sat 21 % (20-55)
[2022-04-07 14:47] LABS: RBC 6.95 10^6/uL (4.36-5.78)
[2022-04-07 14:53] LABS: Anion Gap 8.5 mmol/L (3-11); BUN 22 mg/dL (7-18); CO2 28.5 mmol/L (21.0-32.0); CREATININE 1.6 mg/dL (0.70-1.30); Chloride 101 mmol/L (98-107); Estimated GFR 43.07 (mL/min/1.73m2); Glucose 94 mg/dL (74-106); NT-proBNP 1589 pg/mL (<300); Potassium 4.4 mmol/L (3.5-5.1); Sodium 138 mmol/L (136-145); TSH (W/Ref FT4) 2.73 uIU/mL (0.36-3.74)
== END 2022-04-07 09:49 | disposition home or self-care (01) ==
LOC: NCHCN 09:48
PROVIDERS: PCP Internal Medicine; Visit Provider Internal Medicine
DX: R53.83 Other fatigue (principal); D50.9 Iron deficiency anemia, unspecified; I50.30 Unspecified diastolic (congestive) heart failure
CPT/HCPCS: 80048; 85027; 83540; 83550; 83880; 84443

== ENCOUNTER 2022-06-16 02:21 | Outpatient (CLI) | payer MEDICARE, SELFPAY ==
--- NOTE | 2022-06-16 10:30 | DI.US_ITS ---
APPROVED REPORT EXAM: Comprehensive 2D, Doppler, and color-flow Echocardiogram Patient Location: Out-Patient Manager Infusion: Eduarda Castillo RDCS (AE) Indications: Exertional Dyspnea, Fatigue Other Information Study Quality: Fair. Technically limited study due to body habitus, lung disease. Conclusion Technically difficult study Normal left ventricular wall thickness and chamber size. Estimated ejection fraction is 55 to 60%. Wall motion is normal Normal right ventricular size and systolic function Both atria are normal in size There is no structural or hemodynamically significant valvular disease Estimated right ventricular systolic pressure is 24 mmHg Wall motion Left Ventricle The left ventricle is normal size. The left ventricular systolic function is normal. The left ventric ular ejection fraction is within the normal range. There is normal left ventricular wall thickness. T here is normal LV segmental wall motion. There is no ventricular septal defect visualized. LVEF is 59 %. Right Ventricle The right ventricle is normal size. The right ventricular systolic function is normal. The RVSP is 24 .3mmHg. Atria The left atrium size is normal. The right atrium size is normal. The interatrial septum is intact wit h no evidence for an atrial septal defect. Aortic Valve The aortic valve is normal in structure. Aortic valve is trileaflet. There is no aortic valvular joel nosis. No aortic regurgitation is present. Mitral Valve Mitral l leaflets are mildly thickened No evidence of mitral valve stenosis. Trace mitral regurgitati on. Tricuspid Valve The tricuspid valve is normal in structure. There is no tricuspid valve stenosis. Trace tricuspid reg urgitation. Pulmonic Valve The pulmonary valve is normal in structure. There is no pulmonic valvular stenosis. Trace pulmonic re gurgitation. Great Vessels The aortic root is normal in size. The ascending aorta is normal in size. Aortic arch is not well vis ualized. IVC is normal in size and collapses >50% with inspiration. Pericardium Trace pericardial effusion. 2D Dimensions IVSD d PLAX 1.03 cm M: 0.6-1.2 LV Vol A2C d MOD 98.5 mL LVPW d PLAX 1.08 cm M: 0.6 - 1.2 LV Vol A4C d MOD 124.0 mL LVID d PLAX 5.88 cm M: 4.2 - 5.8 LA vol/ BSA A2C s A-L 29.6 mL/m2 LVDs 3.85 cm M: 2.5 - 4.0 LA vol/ BSA A4C s A-L 26.1 mL/m2 Ao Root d 2.93 cm M: 3.1 - 3.7 LA Vol/ BSA Biplane s A-L 28.8 mL/m2 RA Area A4C 13.39 cm2 LA Area A4C s MOD 19.41 cm2 RA Vol/ BSA A4C s A-L 14.2 mL/m2 LA Area A2C s MOD 21.43 cm2 Ao Asc Diam d 3.20 cm M: 2.6 - 3.4 LV EF A4C MOD 58.1 % LV EF Teichholz 62.7 % LV EF A2C MOD 60.3 % LVEF (Smith's) 58.10 % M: 52 - 72 LV EF Biplane MOD 58.1 % LV Volume 82.39 mL M: 62 - 150 SV 65.13 mL LV Volume Index 38.68 mL/m2 M: 34 - 74 SV Index 30.60 mL/m2 LV Vol Biplane MOD 112.1 mL FS 34.45 % M-Mode TAPSE 2.12 cm (M/F) >1.7 LV Diastology MV E' medial 0.050 (>0.07 m/s) E/A Ratio 1.3 LV E/e MED 15.15 (<14) MV E Vmax 0.76 (0.4-1.3 m/s) MV E' lateral 0.074 (>0.1 m/s) MV A Vmax 0.60 (0.4-1.3 m/s) LV E/e LAT 10.15 (<14) MV E/A Ratio 1.21 MV E/E' medial 15.20 MV E/E' lateral 10.19 Aortic Valve LVOT Area 2.85 cm2 AoV Area Vmax 2.40 cm2 LVOT Vmax 1.14 m/s AoV Area/ BSA (Vmax) 1.13 cm2/m2 LVOT Mean Aristeo. 0.75 m/s [place] Mean Aristeo. 2.16 cm2 LVOT Peak Grad 5.2 mmHg [place] Mean Aristeo. Index 1.01 cm2/m2 LVOT Mean Grad 2.7 mmHg LVOT VTI 0.292 m LVOT Diam s 1.90 cm AoV Vmax 1.35 m/s Velocity Ratio 0.84 AoV Mean [place]iste[place]. 1.00 m/s AoV Peak Grad 7.3 mmHg LVOT SV 83.04 mL AoV Mean Grad 4.3 mmHg AoV VTI 0.310 m AoV Area VTI 2.68 cm2 AoV Area/ BSA (VTI) 1.26 cm/m2 Mitral Valve MV DT 259 (160-240 msec) MV PHT 75 msec MV Area PHT 2.93 cm2 MV VTI 0.312 m MV Area VTI 2.66 (4.0-6.0 cm2) Pulmonary Valve PV Vmax 0.99 (0.5-1.5 m/s) RVOT Peak Gr. 2.95 mmHg PV Peak Grad 3.9 mmHg RVOT Mean Gr. 1.35 mmHg PV Mean Grad 2.2 mmHg RVOT VTI 0.180 m PV VTI 0.218 m RVOT Vmax 0.86 m/s Tricuspid Valve TR Peak Grad 21.2 mmHg TR Vmax 2.31 m/s RA Pressure 3.00 mmHg RVSP (TR) 24.3 mmHg
== END 2022-06-16 02:41 ==
LOC: DI 02:21
PROVIDERS: PCP Internal Medicine; Visit Provider Internal Medicine
DX: R06.09 Other forms of dyspnea (principal)
CPT/HCPCS: 93306

== ENCOUNTER → 2022-09-29 02:54 | Outpatient (CLI) | payer MEDICARE, SELFPAY ==
--- NOTE | 2022-09-29 | DI.CTLCSR_ITS ---
Exam(s) CT CHEST LUNG CANCER SCREEN EXAM: CT CHEST LUNG CANCER SCREEN CLINICAL HISTORY: SCREENING FOR LUNG CA, FORMER SMOKER, Z87.891 TECHNIQUE: CT examination of the chest was performed utilizing low-dose lung cancer screening protoc ol. COMPARISON: CT CT CHEST LUNG CANCER SCREEN from 09/16/2021 FINDINGS: Images obtained through the upper abdomen show unremarkable appearance of visualized portions of the liver and spleen. Note is made of cholelithiasis. Note is made of coronary artery calcification. There is no mediastinal or hilar adenopathy. Mediastinal vascular structures appear intact by noncon trast criteria. Tracheobronchial tree appears intact. No pleural effusion or pleural-based mass. Previously described calcified right middle lobe nodule again seen and unchanged from September 2021. No new significant intrapulmonary nodule identified . IMPRESSION: Lung RADS Cat 2 - Benign Appearance / Behavior: Nodules with a very low likelihood of becoming a clin ically active cancer due to size or lack of growth Continue annual screening with LDCT in 12 months. Lung-RADS 1.0 CATEGORIES: Category 0 - Prior chest CT exam(s) being located for comparison. Category 1 - Annual screening in 12 months. No nodules or definitely benign nodules. Category 2 - Annual screening in 12 months. Benign appearance. Nodules with low likelihood of becomin g active cancer. Category 3 - 6-month follow-up. Probably benign. Short-term follow-up suggested. Nodules with low lik elihood of becoming active cancer. Category 4A - 3-month follow-up and CT/PET if >8 mm in size. Suspicious finding. Findings which requi re additional testing. Category 4B - Findings which require additional testing and tissue sampling. Suspicious finding. Category 4X - Category 3 or 4 nodules with additional features or imaging findings that increases the suspicion of malignancy. Modifier S- Potentially clinically significant finding. (Non lung cancer) RADIATION DOSE DELIVERED: Total DLP !Error CTDIvol Total DLP DATA REPOSITORY: All CT scans at this facility are submitted to the National Radiology Data Registry (NRDR) Dose Index Registry (DIR) with the [employer] (ACR). RADIATION OPTIMIZATION: All CT scans at this facility use at least one of these dose optimization te chniques: automated exposure control; mA and/or kV adjustment per patient size (includes targeted exa ms where dose is matched to clinical indication); or iterative reconstruction.
== END ==
PROVIDERS: PCP Internal Medicine; Visit Provider Internal Medicine
DX: Z87.891 Personal history of nicotine dependence (principal); Z12.2 Encounter for screening for malignant neoplasm of respiratory organs
CPT/HCPCS: 71271

== ENCOUNTER 2023-02-02 16:34 | Outpatient (REF) | payer MEDICARE, SELFPAY ==
[2023-02-02 15:21] LABS: Hemoglobin A1C 6.2 % (<5.7)
[2023-02-02 15:22] LABS: Anion Gap 10.2 mmol/L (3-11); BUN 18 mg/dL (7-18); CO2 26.8 mmol/L (21.0-32.0); CREATININE 1.6 mg/dL (0.70-1.30); Calcium 9.5 mg/dL (8.5-10.1); Chloride 104 mmol/L (98-107); Estimated GFR 46.06 (mL/min/1.73m2); Glucose 97 mg/dL (74-106); Sodium 141 mmol/L (136-145)
== END 2023-02-02 16:35 | disposition home or self-care (01) ==
LOC: NCHCN 16:34
PROVIDERS: PCP Internal Medicine; Visit Provider Internal Medicine
DX: R73.03 Prediabetes (principal); R09.02 Hypoxemia; R53.83 Other fatigue
CPT/HCPCS: 80048; 83036

== ENCOUNTER 2023-08-10 16:01 | Outpatient (REF) | payer MEDICARE, SELFPAY ==
[2023-08-10 14:34] LABS: Abs Immature Grans 0.06 10^3/uL (0.0-0.06); Absolute Eosinophil Count 0.07 10^3/uL (0.0-0.7); Absolute Monocyte Count 0.24 10^3/uL (0.1-0.8); Basophils % 0.5; Eosinophils % 0.5; HCT 44.6 % (40.0-50.0); HGB 13.2 g/dL (13.5-17.5); Immature Grans % 0.5; Lymphocytes % 7.6; MCH 18.8 pg (27.0-33.0); MCHC 29.6 % (32.0-36.0); MPV 9.5 fL (8.0-11.0); Monocytes % 1.8; Neutrophils % 89.1; Platelet Count 311 10^3/uL (130-400); RDW 20.1 % (11.8-14.1); WBC 13.18 10^3/uL (4.4-10.8)
[2023-08-10 14:43] LABS: Absolute Basophil Count 0.07 10^3/uL (0.0-0.2); Absolute Neutrophil Count 11.74 10^3/uL (1.2-6.7)
[2023-08-10 14:50] LABS: ALT 26 U/L (16-63); AST 20 U/L (15-37); Albumin 3.8 g/dL (3.4-5.0); Alkaline Phosphatase 79 U/L (46-116); BUN 22 mg/dL (7-18); Bilirubin, Total 1.2 mg/dL (0.2-1.0); CREATININE 1.6 mg/dL (0.70-1.30); Calcium 9.7 mg/dL (8.5-10.1); Chloride 102 mmol/L (98-107); Estimated GFR 46.06 (mL/min/1.73m2); Glucose 102 mg/dL (74-106); NT-proBNP 2455 pg/mL (<300); Potassium 4.7 mmol/L (3.5-5.1); Sodium 138 mmol/L (136-145); Total Protein 7.9 g/dL (6.4-8.2)
[2023-08-10 14:58] LABS: Anisocytosis 1+; Diff Comment RBC Morph Reviewed; Microcytosis 2+
[2023-08-10 14:59] LABS: MCV 63 fL (80-95)
[2023-08-10 15:00] LABS: RBC 7.03 10^6/uL (4.36-5.78)
== END 2023-08-10 16:02 | disposition home or self-care (01) ==
LOC: NCHCN 16:01
PROVIDERS: PCP Internal Medicine; Visit Provider Internal Medicine
DX: R06.09 Other forms of dyspnea (principal); I50.30 Unspecified diastolic (congestive) heart failure; D50.9 Iron deficiency anemia, unspecified; I10 Essential (primary) hypertension; I73.9 Peripheral vascular disease, unspecified; J44.9 Chronic obstructive pulmonary disease, unspecified; Z87.891 Personal history of nicotine dependence
CPT/HCPCS: 80053; 83880; 85025

== ENCOUNTER 2023-09-22 08:42 | Inpatient (IN) | payer MEDICARE, SELFPAY ==
[2023-09-22] VITALS (62 sets, daily range): BP systolic 118–182; BP diastolic 36–139; PULSE 61–93; RESP 2–27; TEMP 36.7–37.5; O2SAT 8–96
--- NOTE | 2023-09-22 08:30 | RT.EKG_ITS ---
APPROVED REPORT Exam: Resting ECG Reason for Exam: Dyspneas Patient Location: E HR:68 bpm ECG Measurements Heart Rate 68 AXIS AK 208 P 36 QRSd 98 QRS 70 QT 410 T 62 QTc 435 Conclusion Sinus rhythm...normal P axis, V-rate 60- 99 Anterior infarct, old...Q >40mS, abnormal ST-T, V2-V5 PHysician: mild anterior elevation that appears unchanged from prior ekg on 03/01, no recip depression .
--- NOTE | 2023-09-22 08:49 | W.ED.GENAD ---
Discharge Plan Disposition Patient Disposition: Admit to [facility] Condition: Stable Discharge Details Clinical Impression: Acute hypoxemic respiratory failure Primary Care Provider: Bryant Watkins ED Provider: Manuel Casanova Home Meds and New Rx's Prescriptions: No Action nitroglycerin 0.4 mg tablet, sublingual 0.4 mg SL Q5M PRN rosuvastatin 40 mg tablet 40 mg PO DAILY finasteride 5 mg tablet 5 mg PO DAILY Qty: 90 3RF tamsulosin [Flomax] 0.4 mg capsule 0.8 mg PO DAILY Qty: 180 3RF guaifenesin [Mucinex] 600 mg tablet extended release 12hr 600 mg PO BID PRN Trelegy Ellipta 100-62.5-25 mcg blister with device 1 inh inhalation DAILY clonidine HCl 0.1 mg tablet 0.1 mg PO QHS nicotine 21 mg/24 hr patch 24 hour 1 patch transdermal DAILY carvedilol 12.5 mg Tablet 12.5 mg PO BID clopidogrel [Plavix] 75 mg Tablet 75 mg PO DAILY aspirin [Aspir-81] 81 mg Tablet,Delayed Release (Dr/Ec) 81 mg PO DAILY pantoprazole 40 mg Tablet,Delayed Release (Dr/Ec) 40 mg PO DAILY albuterol sulfate [ProAir HFA] 200 PUFF HFA aerosol inhaler 2 puff Inhalation Q4H PRN PRNQty: 1 0RF torsemide 20 mg Tablet 20 mg PO DAILY amlodipine 10 mg Tablet 10 mg PO DAILY polyethylene glycol 3350 [GlycoLax] 17 gram/dose Powder 17 g PO DAILY PRN ipratropium-albuterol 0.5 mg-3 mg(2.5 mg base)/3 mL solution for nebulization 3 ml IH Q6H Qty: 90 0RF Medical Decision Making This dictation utilizes [id number] dictation software and may contain unedited grammatical errors. 72 y/o M presents to ED today with a chief complaint of SOB, cough, body aches, difficulty with exertion acute on chronic days, worse this morning. Onset and characteristics include poor air movement, denies chest pain, denies overt fevers, endorses cough/body aches as most focal symptom. Patient has relevant history of CHF, COPD, CKD3, PAD, frequent UTIs, CAD w/ IN in history, former ETOHism. Family and social history: ACS in father and brother. Pertinent exam findings / vital signs include poor air movement with crackles heard in the mid lung teran, nontoxic presentation overall with mild hypoxemia at rest 91% on room air at rest, benign abdomen, no signs of DVT in the lower extremities, no severe pitting edema or anasarca. Differential / pathologies of concern include CHF, COPD, Hypoxemic Respiratory Failure, PNA, Viral Syndrome (Covid), Pleural Effusion, ACS, unlikely PE. Diagnostic studies of: -CBC, CMP, Trop I w/ delta Trop, Mg++, BNP, D-dimer, UA (hx frequent UTIs), Covid/Flu/RSV PCR, Portable CXR, EKG. -EKG shows sinus rhythm at 68 bpm with P waves followed by a narrow complex QRS, prolonged [place] interval, normal axis, no pathologic Q waves, no S1Q3T3, good R wave progression, mild J-point elevation in V1 V2 V3 though V3 appears to be possibly lead placement or KY depression, these have been visualized in the past, no ST elevations or reciprocal depressions, normal QT QTc -BNP elev to 5443 -CXR shows pulmonary edema -CBC no leukocytosis, chronic anemia -SCr 2.2- chronic, receiving hydration slowly -initial Trop I negative, repeat pending -D-dimer 3,000 - CTA performed, no PE, density perihilar R lung- question mass vs PNA discussed with Radiologist- starting empiric ceftriaxone for PNA treatment -UA micro shows 10-20 WBCs, dual coverage for PNA and UTI with patients' ordered IV Ceftriaxone Interventions of: -9mL DuoNeb, IV Lasix, IV SoluMedrol, IV Magnesium for dyspnea. IV Ceftriaxone for 1gm renal dose for empiric ABX covering, admitted prior to addition of second antibiotic. While awaiting transfer upstairs, patient became mildly more hypoxic, stable on 3L, question whether this was due to eating lunch- asked for a nebulizer as he normally gets one around 1500 each day. Had RN stop IVF as he had been receiving slow hydration 100ml/hr after contrast from CTA with CKD. Will hold Lasix decision until after nebulizer goes in, as he has already received 40mg IV and had an SCr of 2.2 prior to contrast administration. ED Course: 72-year-old male presents with shortness of breath in the setting of chronic diastolic heart failure as well as COPD, not oxygen dependent, presents 91 at rest on room air, chest x-ray shows density in the right perihilar region, there are rails on his mid lung teran to auscultation and very poor air movement in the bases. This is improved only minimally with an hour-long DuoNeb, IV Lasix was initiated there he has no signs of severe pitting edema or anasarca. Provided IV Solu-Medrol for possible mixed etiology COPD exacerbation, IV magnesium for dyspnea. Patient was road tested for an ambulatory SPO2 reading and quickly desaturated to 8086% after only a few steps in the exam room-this warrants admission for hypoxemic respiratory failure in the setting of a likely pneumonia complicated by chronic comorbidities of CHF and COPD. May need outpatient referral to pulmonology for possible new mass to the right perihilar region not seen on CT last year, unlikely ACS, not on oxygen dependent at rest and likely reasonable to admit to the floor. I discussed with hospitalist Dr. Hall who accepted for admission. Disposition of Acute Hypoxemic Respiratory Failure, COPD Exacerbation, CHF, Pneumonia. Assessment/Plan: Patient verbalized understanding of the plan and return to ED criteria and engaged in shared decision making in regards to admission. He has a at home who is undergoing chemotherapy and is concerned for care for her, but he had a friend in ED who will help with his while he is in-patient. Medical Records Medical records reviewed: Yes I reviewed the patient's medical records. Imaging Data Radiologic Study: Imaging: X-Ray Radiologist's impression: EXAM: XR PORTABLE CHEST AP CLINICAL HISTORY: shortness of breath, rales - ?CHF TECHNIQUE: 2D digital imaging was performed. COMPARISON: CR XR CHEST 2V PA LATERAL from 12/05/[address] CHEST LUNG CANCER SCREEN from 09/29/2022 FINDINGS: Exam is extremely limited by under penetration, respiratory motion and semi upright positioning as well as monitoring leads over the chest.. LUNGS: Lung bases cannot be evaluated. Question right perihilar density. Small effusions not excluded. HEART: Mildly enlarged versus projection. AORTA: Normal diameter. BONES: Spine obscured. Soft tissues: Unremarkable. IMPRESSION: Severely limited exam. Question of right perihilar density. Recommend PA and lateral views. Radiologic Study #2: Imaging: CT Scan Radiologist's impression: EXAM: CT CHEST PE CTA CLINICAL HISTORY: shortness of breath, elev d-dimer. TECHNIQUE: Imaging Protocol: Axial CT angiography was performed with multi-slice acquisition and multi-planar reconstructions as well as axial, coronal and sagittal MIP reconstructions. CONTRAST MATERIAL: Intravenous: Omnipaque 350 Contrast volume:100 ml COMPARISON: CT CT chest PE abd pelvis w from 01/07/[address] CHEST LUNG CANCER SCREEN from 09/29/2022 FINDINGS: Pulmonary Arteries: No evidence of filling defect to suggest pulmonary emboli. Tracheobronchial tree: Patent where visualized. Mediastinum and Oralia: No dominant adenopathy or fluid collection. Stable small superior mediastinal lymph nodes. Pulmonary parenchyma: New area of increased density in the right superior hilar region, right upper lobe measuring 4.2 x 3.2 by 2.3 cm. No abnormality was seen on the previous exam. Findings could represent perihilar infiltrate versus mass. Some atelectasis distally. 7 millimeter nodule left lower lobe present previously. Stable appearance of calcified granuloma right middle lobe. Mild underlying emphysematous changes. Pleura: No effusion or pneumothorax. Heart: The heart is mildly dilated. moderate coronary artery calcifications are seen. Stable appearance of mild anterior pericardial thickening. Aorta: Thoracic aorta non-dilated. No aneurysm. No dissection. Upper abdomen: Unremarkable. Sebaceous cyst lower chest to the left of midline. Bones: Prominent flowing osteophytes in the thoracic spine. Tubes, Catheters, and Lines: None IMPRESSION: No evidence of pulmonary embolism. Roughly 4 centimeter mass right hilum versus infiltrate. Additional 7 millimeter nodule left lower lobe. Findings called to Manuel Casanova, emergency department provider. HPI General Date/Time Provider Initiated Documentation: 09/22/23 08:48. HPI Narrative: 72 year-old male presents to ED today by EMS with a chief complaint of cough, shortness of breath, myalgias, arthralgias, mild fever with onset noted this morning. Patient has a history of COPD/CHF mixed etiology, non-oxygen dependent, presented 91% RA. Quality described as generalized body aches, no radiation to chest pain, endorses cough, denies dizziness/syncope, hemoptysis, abdominal pain, bowel/urinary changes, flank pain, visual changes, weakness. Severity is described as 5-6/10. Palliating factors include took his cardiac medications this morning, took his nebulizer this morning. Provoking factors include nothing specific. Patient states his body is falling apart, has trouble going up & down the stairs lately. Patient not anticoagulated. Related Data Home Medications Medication Instructions Recorded Confirmed albuterol sulfate 90 mcg/actuation 2 puff inhalation Q4H PRN PRN #1 04/29/17 09/22/23 aerosol inhaler (ProAir HFA) inh amlodipine 10 mg tablet 10 mg PO DAILY 02/19/19 09/22/23 ipratropium 0.5 mg-albuterol 3 mg 3 ml inhalation Q6H #90 mL 02/19/19 09/22/23 (2.5 mg base)/3 mL nebulization soln polyethylene glycol 3350 17 17 g PO DAILY PRN 02/19/19 09/22/23 gram/dose oral powder (GlycoLax) torsemide 20 mg tablet 20 mg PO DAILY 02/19/19 09/22/23 aspirin 81 mg tablet,delayed 81 mg PO DAILY 05/10/19 09/22/23 release (Aspir-) carvedilol 12.5 mg tablet 12.5 mg PO BID 05/10/19 09/22/23 clopidogrel 75 mg tablet (Plavix) 75 mg PO DAILY 05/10/19 09/22/23 pantoprazole 40 mg tablet,delayed 40 mg PO DAILY 05/10/19 09/22/23 release nitroglycerin 0.4 mg sublingual 0.4 mg sublingual Q5M PRN 12/04/19 09/22/23 tablet rosuvastatin 40 mg tablet 40 mg PO DAILY 12/04/19 09/22/23 finasteride 5 mg tablet 5 mg PO DAILY #90 tabs 11/08/21 09/22/23 tamsulosin 0.4 mg capsule (Flomax) 0.8 mg (2 x 0.4 mg) PO DAILY #180 11/08/21 09/22/23 caps clonidine HCl 0.1 mg tablet 0.1 mg PO QHS 02/28/23 09/22/23 fluticasone fur. 100 mcg-umeclid 1 inh inhalation DAILY 02/28/23 09/22/23 62.5 mcg-vilant 25 mcg inhalat.powder (Trelegy Ellipta) guaifenesin 600 mg tablet, 600 mg PO BID PRN 02/28/23 09/22/23 extended release 12 hr (Mucinex) nicotine 21 mg/24 hr daily 1 patch transdermal DAILY 02/28/23 09/22/23 transdermal patch Previous Rx's Medication Instructions Recorded albuterol sulfate 90 mcg/actuation 2 puff inhalation Q4H PRN PRN #1 04/29/17 aerosol inhaler (ProAir HFA) inh ipratropium 0.5 mg-albuterol 3 mg 3 ml inhalation Q6H #90 mL 02/19/19 (2.5 mg base)/3 mL nebulization soln finasteride 5 mg tablet 5 mg PO DAILY #90 tabs 11/08/21 tamsulosin 0.4 mg capsule (Flomax) 0.8 mg (2 x 0.4 mg) PO DAILY #180 11/08/21 caps Allergies Allergy/AdvReac Type Severity Reaction Status Date / Time lisinopril Allergy Unverified 09/22/23 08:51 codeine phosphate AdvReac Other (See Unverified 09/22/23 08:51 [From Tylenol-Codeine] Comment) General Stated Complaint: SOB DAISY: 3 PFSH All Active Problems (Updated 09/22/23 @ 13:06 by RHONDA Tran) Acute hypoxemic respiratory failure (Acute) BPH w urinary obs/LUTS (Acute) Microcytic anemia (Acute) UTI (urinary tract infection) (Acute) Presence of stent in coronary artery in patient with coronary artery disease (Acute) Discharge planning issues (Acute) Acute on chronic renal failure (Acute) Diastolic CHF (Chronic) HTN (hypertension) (Chronic) DVT prophylaxis (Acute) Pneumonia (Acute) COPD exacerbation (Acute) Chronic renal failure (Chronic) Acute systolic CHF (congestive heart failure) (Chronic) Non-STEMI (non-ST elevated myocardial infarction) (Chronic) Medical History (Updated 09/22/23 @ 13:06 by RHONDA Tran) History of tobacco use Hypospadias Chronic kidney disease, stage 3 Peripheral arterial occlusive disease Constipation Depression Lower urinary tract symptoms (LUTS) Exertional dyspnea Pulmonary hypertension due to left heart disease Coronary artery disease Diastolic heart failure Lower back pain Dysuria Anemia, iron deficiency Heartburn Screening for colon cancer Nocturia Urinary frequency Prediabetes Hypoxemia Multiple pulmonary nodules Lumbar back pain with radiculopathy affecting lower extremity Former smoker Congestion of nasal sinus CKD (chronic kidney disease) CHF (congestive heart failure) Alcoholism in recovery Hypospadias in male COPD (chronic obstructive pulmonary disease) Hyperlipidemia Essential hypertension Surgical History History of phacoemulsification of cataract of both eyes with intraocular lens implantation History of tonsillectomy Family History Father Throat cancer Heart disease Myocardial infarction Brother Heart disease Status post coronary stents Social History Smoking/Tobacco Use Status: Former Tobacco Use Quit Date: 01/11/17 Smoking risk assessment performed?: Yes Alcohol Intake: former Year quit: 2016 Details: Former alcoholic up to 2 cases of gin per month Drug use: Never Substance use type: does not use Number of Children: 0 Pets and animals: Yes Pets and animals: dog(s) What is your relationship status?: Panel score (0-1 are the most socially isolated patients): 1 Do you feel safe at home: Yes Do you feel safe in your relationship?: Yes Exam Narrative Exam Narrative: GENERAL APPEARANCE: Obesity, non-toxic, awake and alert, atraumatic, no acute distress. SKIN: Warm, pink, dry, intact, without rashes/lesions/ulcerations. HEAD: Normocephalic, atraumatic, normal hair distribution for gender/age. EYES: Pupils PERRLA, EOMs intact without nystagmus, normal conjunctiva, no exudates on lids/lashes. ENT: Nares patent, no circumoral cyanosis, no facial swelling NECK: Supple, trachea midline, painless cervical ROM. LUNGS/CHEST: Mild wheezing diffusely, rales in mid-lung teran bilaterally, poor air movement to bases, labored respirations, increased A/P diameter, symmetrical expansion, no chest wall deformity HEART (CV/PV): Regular rate and rhythm without murmur, no peripheral edema- no pitting edema in lower extremities, no skin changes/unilateral leg swelling, no JVD. ABDOMEN: Soft, non-distended, no guarding, no tenderness. MSK: Normal ROM, no swelling/deformity to bilateral UEs or LEs, moving all extremities without weakness, no cyanosis, spine midline without tenderness, normal curvature. NEURO: Mental Status AAOx4 - alert to person, place, time, events No facial droop, no forehead involvement. Motor: No focal weakness - strength 5/5 in bilateral UEs and LEs, proximal and distal, symmetric. Sensory: sensation intact to light touch globally. Gait normal: patient ambulated without ataxia into ED room. PSYCH: euthymic, cooperative, pleasant, appropriate speech Course Vital Signs Vital signs: Vital Signs Temperature 37.5 C 09/22/23 08:43 Pulse 72 09/22/23 08:43 Respiratory Rate 27 H 09/22/23 08:43 Blood Pressure 151/129 H 09/22/23 08:43 Pulse Oximetry 91 L 09/22/23 08:43 Temperature 37.5 C 09/22/23 08:43 Temperature Source Oral 09/22/23 08:43 Pulse 72 09/22/23 08:43 Respiratory Rate 27 H 09/22/23 08:43 Blood Pressure 151/129 H 09/22/23 08:43 Blood Pressure Position Sitting 09/22/23 08:43 Pulse Oximetry 91 L 09/22/23 08:43 Oxygen Delivery Method Room Air 09/22/23 08:43 Oxygen Flow Rate 0 09/22/23 08:43 Pain Level 7 09/22/23 08:43
[2023-09-22] MEDS: MAGNESIUM SULFATE 2 GM/50 ML BAG IVPB (09:05)
[2023-09-22] MEDS: methylPREDNISolone SUCC 125 MG VIAL IM (09:05)
[2023-09-22] MEDS: Albuterol/Ipratropium 3 ML UPD VIAL 9 ML UPD (09:05)
[2023-09-22] MEDS: Furosemide 40 MG/4 ML VIAL IVP (09:05)
[2023-09-22 09:11] LABS: Abs Immature Grans 0.04 10^3/uL (0.0-0.06); Absolute Basophil Count 0.07 10^3/uL (0.0-0.2); Absolute Eosinophil Count 0.15 10^3/uL (0.0-0.7); Absolute Lymphocyte Count 1.15 10^3/uL (1.2-3.4); Absolute Monocyte Count 1.04 10^3/uL (0.1-0.8); Absolute Neutrophil Count 6.37 10^3/uL (1.2-6.7); Basophils % 0.8; Eosinophils % 1.7; HCT 40.9 % (40.0-50.0); HGB 12.5 g/dL (13.5-17.5); Immature Grans % 0.5; MCH 18.6 pg (27.0-33.0); MCHC 30.6 % (32.0-36.0); MCV 61 fL (80-95); MPV 9.4 fL (8.0-11.0); Monocytes % 11.8; Neutrophils % 72.2; Platelet Count 239 10^3/uL (130-400); RBC 6.71 10^6/uL (4.36-5.78); RDW 19.9 % (11.8-14.1); RDW-SD 38.5 fL; WBC 8.82 10^3/uL (4.4-10.8)
--- NOTE | 2023-09-22 09:20 | DI.RAD_ITS ---
Exam(s) XR PORTABLE CHEST AP EXAM: XR PORTABLE CHEST AP CLINICAL HISTORY: shortness of breath, rales - ?CHF TECHNIQUE: 2D digital imaging was performed. COMPARISON: CR XR CHEST 2V PA LATERAL from 12/05/[address] CHEST LUNG CANCER SCREEN from 09/29/2022 FINDINGS: Exam is extremely limited by under penetration, respiratory motion and semi upright positioning as w ell as monitoring leads over the chest.. LUNGS: Lung bases cannot be evaluated. Question right perihilar density. Small effusions not exclud ed. HEART: Mildly enlarged versus projection. AORTA: Normal diameter. BONES: Spine obscured. Soft tissues: Unremarkable. IMPRESSION: Severely limited exam. Question of right perihilar density. Recommend PA and lateral views. DATA REPOSITORY: RADIATION DOSE DELIVERED:
[2023-09-22 09:27] LABS: Diff Comment RBC Morph Reviewed; Microcytosis 2+
[2023-09-22 09:32] LABS: ALT 31 U/L (16-63); AST 28 U/L (15-37); Albumin 3.2 g/dL (3.4-5.0); Alkaline Phosphatase 74 U/L (46-116); Anion Gap 9.4 mmol/L (3-11); BUN 18 mg/dL (7-18); CO2 24.6 mmol/L (21.0-32.0); CREATININE 2.2 mg/dL (0.70-1.30); Calcium 8.9 mg/dL (8.5-10.1); Chloride 102 mmol/L (98-107); Estimated GFR 31.43 (mL/min/1.73m2); Glucose 105 mg/dL (74-106); Magnesium 2.2 mg/dL (1.8-2.4); NT-proBNP 5443 pg/mL (<300); Potassium 4.2 mmol/L (3.5-5.1); Sodium 136 mmol/L (136-145); Total Protein 7.3 g/dL (6.4-8.2); Troponin I < 50 ng/L (<or=60)
[2023-09-22 09:51] LABS: COVID-19 PCR Negative (Negative); Influenza A PCR Negative (Negative); Influenza B PCR Negative (Negative); RSV PCR Negative (Negative)
[2023-09-22 09:52] LABS: Source Nasopharynx
--- NOTE | 2023-09-22 10:45 | DI.CT_ITS ---
Exam(s) CT CHEST PE CTA EXAM: CT CHEST PE CTA CLINICAL HISTORY: shortness of breath, elev d-dimer. TECHNIQUE: Imaging Protocol: Axial CT angiography was performed with multi-slice acquisition and mu lti-planar reconstructions as well as axial, coronal and sagittal MIP reconstructions. CONTRAST MATERIAL: Intravenous: Omnipaque 350 Contrast volume:100 ml COMPARISON: CT CT chest PE abd pelvis w from 01/07/[address] CHEST LUNG CANCER SCREEN from 09/29/2022 FINDINGS: Pulmonary Arteries: No evidence of filling defect to suggest pulmonary emboli. Tracheobronchial tree: Patent where visualized. Mediastinum and Oralia: No dominant adenopathy or fluid collection. Stable small superior mediastinal lymph nodes. Pulmonary parenchyma: New area of increased density in the right superior hilar region, right upper lobe measuring 4.2 x 3.2 by 2.3 cm. No abnormality was seen on the previous exam. Findings could re present perihilar infiltrate versus mass. Some atelectasis distally. 7 millimeter nodule left lower lobe present previously. Stable appearance of calcified granuloma right middle lobe. Mild underl janna emphysematous changes. Pleura: No effusion or pneumothorax. Heart: The heart is mildly dilated. moderate coronary artery calcifications are seen. Stable appea esgun of mild anterior pericardial thickening. Aorta: Thoracic aorta non-dilated. No aneurysm. No dissection. Upper abdomen: Unremarkable. Sebaceous cyst lower chest to the left of midline. Bones: Prominent flowing osteophytes in the thoracic spine. Tubes, Catheters, and Lines: None IMPRESSION: No evidence of pulmonary embolism. Roughly 4 centimeter mass right hilum versus infiltrate. Additional 7 millimeter nodule left lower l obe. Findings called to Manuel Casanova, emergency department provider. RADIATION DOSE DELIVERED: Total DLP DATA REPOSITORY: All CT scans at this facility are submitted to the National Radiology Data Registry (NRDR) Dose Index Registry (DIR) with the [employer] ([employer]). RADIATION OPTIMIZATION: All CT scans at this facility use at least one of these dose optimization te chniques: automated exposure control; mA and/or kV adjustment per patient size (includes targeted exa ms where dose is matched to clinical indication); or iterative reconstruction.
[2023-09-22 10:50] LABS: D-Dimer 3011 ng/mlFEU (<500)
[2023-09-22] MEDS: Normal Saline - Diluent 50 ML VIAL IJ (11:34)
[2023-09-22] MEDS: Omnipaque 350 MG/ML 500 ML BTL-Imaging package 100 ML IJ (11:36)
[2023-09-22] MEDS: Normal Saline Flush 10 ML SYR IVP (11:37)
[2023-09-22 13:03] LABS: Troponin I < 50 ng/L (<or=60)
[2023-09-22] MEDS: cefTRIAXone 1 GM/50 ML BAG IVPB ×2 (13:12→17:25)
[2023-09-22 13:58] LABS: Bilirubin Negative (Negative); Blood Small (Negative); Clarity Clear (Clear); Glucose 500 mg/dL (Negative); Ketones Negative (Negative); Leukocyte Esterase Small (Negative); Nitrite Negative (Negative); Urobilinogen 0.2 mg/dL (Up to 0.2)
[2023-09-22 14:07] LABS: Bacteria Few HPF (Negative); C & S Indicated? No/Sq. Contamination; Casts 3-5 Fine Granular LPF (Negative); Crystals Negative HPF (Negative); Epithelial Cells Moderate HPF (Negative); Mucus Negative (Negative)
[2023-09-22] MEDS: Albuterol/Ipratropium 3 ML UPD VIAL UPD (14:20)
--- NOTE | 2023-09-22 15:43 | W.PM.HP.N ---
Date of service: 09/22/23 Time of Service: 15:44 Assessment and Plan Assessment and plan (1) Acute hypoxemic respiratory failure: Status: Acute Assessment and plan: secondary to pneumonia superimposed on COPD and diastolic HF, clinically he does not seem to be in overt CHF, i.e. no JVD, no pitting pretibial or sacral edema. I am witholding further iv diuretics but will continue empiric treatment for CAP w/ Ceftrixone 2 gm iv daily along w/ doxycycline 100 mg iv q12h. I will also keep him on schedule DuoNeb treatments, acapella and incentive spirometer and get urine for Strep and Legionella and get sputum culture and mycoplasma PCR. I will get bedside POCUS of his lungs and heart. he needs follow up formal echo but will not get this over the weekend. Professional time spent interviewing and examining patient, discussion of goals of care with hospital team (care management, nursing and consulting professionals) was 60 minutes. (2) Pneumonia: Status: Acute Assessment and plan: as above Qualifiers: Laterality: right Lung location: lower lobe of lung Pneumonia type: due to unspecified organism Qualified Code(s): J18.1 - Lobar pneumonia, unspecified organism (3) HTN (hypertension): Status: Chronic Assessment and plan: continue current home medications of carvedilol, amlodipine, torsemide, and clonidine. Unclear to me as to why he has been prescribe clonidine if he has HFPEF. he ought to be on an ISHAN inhibitor or an ARB inspite of his renal failure. Furthermore clonidine is an alpha scottie and carvedilol also has alpha scottie activity as well as beta scottie. If his HR will tolerate then his carvedilol dose should be titrated upward. I will order prn hydralazine to cover an severe/acute BP elevations over 190 mm. Otherwise I will wait and see how his BP does overnight and consider titration of carvedilol and consider adding an ARB. Qualifiers: Hypertension type: primary hypertension Qualified Code(s): I10 - Essential (primary) hypertension (4) Chronic renal failure: Status: Chronic Qualifiers: Chronic kidney disease stage: stage 3 (moderate) Qualified Code(s): N18.3 - Chronic kidney disease, stage 3 (moderate) (5) COPD (chronic obstructive pulmonary disease): Assessment and plan: continue his Trelegy and use scheduled DuoNeb and prn albuterol for any breakthrough wheezing. Qualifiers: COPD type: COPD with acute lower respiratory infection Qualified Code(s): J44.0 - Chronic obstructive pulmonary disease with (acute) lower respiratory infection (6) DVT prophylaxis: Status: Acute (7) Coronary artery disease: Assessment and plan: continue DAPT, statin and carvedilol, no evidence of ACS this admission Qualifiers: Coronary Disease-Associated Artery/Lesion type: [place] artery Elem vs. transplanted heart: [place] heart Associated angina: without angina Qualified Code(s): I25.10 - Atherosclerotic heart disease of [place] coronary artery without angina pectoris History of Present Illness History of Present Illness Chief Complaint: Fever, chills with rigors, shortness of breath Narrative: 72-year-old male former smoker with history of COPD/hypertension coronary artery disease chronic kidney disease and diastolic heart failure presents emergency department with 5 days of generalized malaise weakness and chills and worsening cough. He was so weak he could not ambulate to his car to be brought into the hospital his called EMS. There is no associated chest pain or pressure or palpitations. Says he has been fully vaccinated needed with his Pneumovax and influenza vaccine as well as his COVID-vaccine. Evaluation in the ER included routine labs including a CBC that did not show leukocytosis, WBC 8800, stable chronic anemia hemoglobin 12.5 g with microcytic indices. However there is a leftward shift in his white cell count. CMP shows stable chronic kidney disease with creatinine 2.2 normal BUN of 18. Normal LFTs and 2 troponins have come back negative at less than 50. However proBNP was elevated at 5400 which is higher than his previous value in July when it was 2400. Chest x-ray was performed there is questionable right perihilar density heart is mildly enlarged. Exam was severely limited. Chest CT was performed with contrast there is no evidence of pulmonary embolism but there is roughly 4 cm mass in the right hilum versus an infiltrate as well as additional 7 mm nodule left lower lobe. No pleural effusions were seen. Patient was empirically treated for pneumonia as well as CHF and was started on Rocephin and given 1 g of Rocephin and Lasix 40 mg IV push. Patient is now admitted to the hospital for treatment of acute hypoxemic respiratory failure secondary to pneumonia plus or minus CHF. Patient denies any previous history of CHF however he does have significant hypertension and coronary artery disease as well as hyperlipidemia. He has been on torsemide at home. His last echo was taken June 16, 2022 was a technically difficult study but showed normal left ventricular wall thickness and size with no wall motion abnormalities and his LVEF was 55 to 60%. Likewise he had normal right ventricular size systolic function and normal atrial size. There is no structural or hemodynamically significant valvular disease. RVSP at that time was 24 mm. Review of Systems All systems reviewed & are unremarkable except as noted in HPI and below Eyes Eyes: Reports system reviewed and no additional complaints, except as documented ENT Ears, Nose, Mouth, and Throat: Reports system reviewed and no additional complaints, except as documented Cardiovascular Cardiovascular: Denies chest pain, Denies chest pain with activity, Denies leg edema and Denies palpitations Respiratory Respiratory: Reports as per HPI, Reports chest congestion, Reports cough, Denies hemoptysis and Reports excessive phlegm production Gastrointestinal Gastrointestinal: Reports system reviewed and no additional complaints, except as documented Genitourinary Genitourinary: Reports system reviewed and no additional complaints, except as documented Musculoskeletal Musculoskeletal: Reports myalgias and Reports muscle weakness Integumentary/Breasts Skin/Breast: Reports system reviewed and no additional complaints, except as documented Neurologic Neurologic: Reports system reviewed and no additional complaints, except as documented Endocrine Endocrine: Reports system reviewed and no additional complaints, except as documented and Denies palpitations Hematologic/Lymphatic Hematologic/Lymphatic: Reports system reviewed and no additional complaints, except as documented PFSH All Active Problems (Updated 09/22/23 @ 19:08 by Jamari Hall MD) Acute hypoxemic respiratory failure (Acute) BPH w urinary obs/LUTS (Acute) Microcytic anemia (Acute) UTI (urinary tract infection) (Acute) Presence of stent in coronary artery in patient with coronary artery disease (Acute) Acute on chronic renal failure (Acute) Diastolic CHF (Chronic) HTN (hypertension) (Chronic) DVT prophylaxis (Acute) Pneumonia (Acute) COPD exacerbation (Acute) Chronic renal failure (Chronic) Medical History (Updated 09/22/23 @ 19:08 by Jamari Hall MD) Non-STEMI (non-ST elevated myocardial infarction) History of tobacco use Hypospadias Chronic kidney disease, stage 3 Peripheral arterial occlusive disease Constipation Depression Lower urinary tract symptoms (LUTS) Exertional dyspnea Pulmonary hypertension due to left heart disease Coronary artery disease Diastolic heart failure Lower back pain Dysuria Anemia, iron deficiency Heartburn Screening for colon cancer Nocturia Urinary frequency Prediabetes Hypoxemia Multiple pulmonary nodules Lumbar back pain with radiculopathy affecting lower extremity Former smoker Congestion of nasal sinus CKD (chronic kidney disease) CHF (congestive heart failure) Alcoholism in recovery Hypospadias in male COPD (chronic obstructive pulmonary disease) Hyperlipidemia Essential hypertension Surgical History History of phacoemulsification of cataract of both eyes with intraocular lens implantation History of tonsillectomy Family History Father Throat cancer Heart disease Myocardial infarction Brother Heart disease Status post coronary stents Social History Smoking/Tobacco Use Status: Former Tobacco Use Quit Date: 01/11/17 Smoking risk assessment performed?: Yes Alcohol Intake: former Year quit: 2016 Details: Former alcoholic up to 2 cases of gin per month Drug use: Never Substance use type: does not use Housing: house Number of Children: 0 Pets and animals: Yes Pets and animals: dog(s) What is your relationship status?: Panel score (0-1 are the most socially isolated patients): 1 Do you feel safe at home: Yes Do you feel safe in your relationship?: Yes Meds Allergies and Home Medications Allergies Allergy/AdvReac Type Severity Reaction Status Date / Time lisinopril Allergy Unverified 09/22/23 08:51 codeine phosphate AdvReac Other (See Unverified 09/22/23 08:51 [From Tylenol-Codeine] Comment) Home Medications Medication Instructions Recorded Confirmed Type albuterol sulfate 90 mcg/actuation 2 puff inhalation Q4H PRN PRN #1 04/29/17 09/22/23 Rx aerosol inhaler (ProAir HFA) inh amlodipine 10 mg tablet 10 mg PO DAILY 02/19/19 09/22/23 History ipratropium 0.5 mg-albuterol 3 mg 3 ml inhalation Q6H #90 mL 02/19/19 09/22/23 Rx (2.5 mg base)/3 mL nebulization soln polyethylene glycol 3350 17 17 g PO DAILY PRN 02/19/19 09/22/23 History gram/dose oral powder (GlycoLax) torsemide 20 mg tablet 20 mg PO DAILY 02/19/19 09/22/23 History aspirin 81 mg tablet,delayed 81 mg PO DAILY 05/10/19 09/22/23 History release (Aspir-) carvedilol 12.5 mg tablet 12.5 mg PO BID 05/10/19 09/22/23 History clopidogrel 75 mg tablet (Plavix) 75 mg PO DAILY 05/10/19 09/22/23 History pantoprazole 40 mg tablet,delayed 40 mg PO DAILY 05/10/19 09/22/23 History release nitroglycerin 0.4 mg sublingual 0.4 mg sublingual Q5M PRN 12/04/19 09/22/23 History tablet rosuvastatin 40 mg tablet 40 mg PO DAILY 12/04/19 09/22/23 History finasteride 5 mg tablet 5 mg PO DAILY #90 tabs 11/08/21 09/22/23 Rx tamsulosin 0.4 mg capsule (Flomax) 0.8 mg (2 x 0.4 mg) PO DAILY #180 11/08/21 09/22/23 Rx caps clonidine HCl 0.1 mg tablet 0.1 mg PO QHS 02/28/23 09/22/23 History fluticasone fur. 100 mcg-umeclid 1 inh inhalation DAILY 02/28/23 09/22/23 History 62.5 mcg-vilant 25 mcg inhalat.powder (Trelegy Ellipta) guaifenesin 600 mg tablet, 600 mg PO BID PRN 02/28/23 09/22/23 History extended release 12 hr (Mucinex) nicotine 21 mg/24 hr daily 1 patch transdermal DAILY 02/28/23 09/22/23 History transdermal patch Exam Narrative Exam Narrative: Alert and oriented x4, obese male who is able to talk in full sentences but gets dyspneic w/ activity HEENT: Atraumatic normocephalic, pupils equally round reactive to light and accommodation, extraocular motion intact, TMs intact, nares moist and patent without exudate or bleeding, oropharynx noninjected without exudate, Neck: Supple, nontender, without thyromegaly or lymphadenopathy or JVD. Normal carotid pulses Lungs: some rales at the bases posteriorly, prolonged expiratory phase, no rhonchi Heart: Regular rate and rhythm without murmur rub or gallop. Normal apical impulse Abdomen: Nondistended, normal bowel sounds, nontender to palpation or percussion, no organomegaly, no bruits, no palpable masses Genitalia and rectal exam: Deferred Extremities: Normal range of motion with normal strength. No peripheral cyanosis or edema. Normal pulses Neurologic: Cranial nerves grossly within normal limits. Normal strength and sensation over the face trunk and extremities. Results Labs 09/22/23 08:48 09/22/23 08:48 Labs: Laboratory Results - last 24 hr 09/22/23 09/22/23 09/22/23 08:48 09:01 12:42 WBC 8.82 RBC 6.71 H Hgb 12.5 L Hct 40.9 MCV 61 L MCH 18.6 L MCHC 30.6 L RDW 19.9 H Plt Count 239 MPV 9.4 Immature Gran % 0.5 Neutrophils % 72.2 Lymphocytes % 13.0 Monocytes % 11.8 Eosinophils % 1.7 Basophils % 0.8 Nucleated RBC % 0.0 Absolute Neutrophils 6.37 Absolute Lymphocytes 1.15 L Absolute Monocytes 1.04 H Absolute Eosinophils 0.15 Absolute Basophils 0.07 RBC Morphology See Below Microcytosis 2+ D-Dimer 3011 H Sodium 136 Potassium 4.2 Chloride 102 Carbon Dioxide 24.6 Anion Gap 9.4 BUN 18 Creatinine 2.2 H Est GFR (CKD-EPI 2020) 31.43 Glucose 105 Calcium 8.9 Magnesium 2.2 Total Bilirubin 1.0 AST 28 ALT 31 Alkaline Phosphatase 74 Troponin I < 50 < 50 NT-Pro-B Natriuret Pep 5443 H Total Protein 7.3 Albumin 3.2 L Urine Color Urine Clarity Urine pH Ur Specific [place] Urine Protein Urine Ketones Urine Blood Urine Nitrite Urine Bilirubin Urine Urobilinogen Ur Leukocyte Esterase Urine RBC Urine WBC Ur Epithelial Cells Urine Crystals Urine Bacteria Urine Casts Urine Mucus Ur Culture Indicated? Urine Glucose COVID-19 Source Nasopharynx SARS-CoV-2 (PCR) Negative Influenza Type A (PCR) Negative Influenza Type B (PCR) Negative RSV (PCR) Negative 09/22/23 13:50 WBC RBC Hgb Hct MCV MCH MCHC RDW Plt Count MPV Immature Gran % Neutrophils % Lymphocytes % Monocytes % Eosinophils % Basophils % Nucleated RBC % Absolute Neutrophils Absolute Lymphocytes Absolute Monocytes Absolute Eosinophils Absolute Basophils RBC Morphology Microcytosis D-Dimer Sodium Potassium Chloride Carbon Dioxide Anion Gap BUN Creatinine Est GFR (CKD-EPI 2020) Glucose Calcium Magnesium Total Bilirubin AST ALT Alkaline Phosphatase Troponin I NT-Pro-B Natriuret Pep Total Protein Albumin Urine Color Yellow Urine Clarity Clear Urine pH 5.0 Ur Specific [place] 1.010 Urine Protein 100 H Urine Ketones Negative Urine Blood Small H Urine Nitrite Negative Urine Bilirubin Negative Urine Urobilinogen 0.2 Ur Leukocyte Esterase Small H Urine RBC 3-5 H Urine WBC 10-20 H Ur Epithelial Cells Moderate Urine Crystals Negative Urine Bacteria Few Urine Casts 3-5 Fine Granular Urine Mucus Negative Ur Culture Indicated? No/Sq. Contamination Urine Glucose 500 H COVID-19 Source SARS-CoV-2 (PCR) Influenza Type A (PCR) Influenza Type B (PCR) RSV (PCR) Last Vital Signs Temp 37.5 C 09/22/23 08:43 Pulse 77 09/22/23 14:32 Resp 21 09/22/23 14:32 BP 163/139 H 09/22/23 13:31 Pulse Ox 89 L 09/22/23 14:32 Time Spent Time spent with Patient: 55-74 minutes Time was spent: preparing to see the patient(eg.review tests), obtaining and/or reviewing separately otained hiistory, ordering medications,tests, procedures, referring, communicating with other health manager progressive care, indepentently interpreting results, counseling the patient and care coordination
[2023-09-22] MEDS: Enoxaparin 40 MG/0.4 ML SYR SC (18:26)
[2023-09-22] MEDS: DOXYCYCLINE 100 MG in Normal Saline 100 ML IVPB (18:26)
--- NOTE | 2023-09-22 19:11 | W.POCUS ---
Pocus Exam Limited Thoracic Lung Exam DATE OF EXAM: 09/22/23 TIME OF EXAM: 17:15 PROVIDER THAT PERFORMED THE STUDY: Jamari Hall REASON FOR EXAM: Hypoxia and Shortness ofBreath VISUALIZED STRUCTURES: right anterior, left anterior, right lateral, left lateral, right posterior, left posterior, right subcostal and left subcostal PERTINENT FINDINGS/IMPRESSION: B-lines/right side thoracis location: lateral (inferior and superior lung teran in mid axillary line), Pneumonia (consolidations seen in left lateral inferior and superior lung zones in midaxillary line as well as seen in the left posterior inferior lung teran, there are air bronchograms and subpleural and deeper lung consolidations) and Other (A line patterns in R antereior superior and inferior and L anterior superior and inferior lung teran, ) impression: Findings consist of A/B pattern w/ significant left sided lung consolidations in the inferolateral and posterior basilar lung zones, no effusions were seen in either lung. This is consistent w/ pneumonia given his current clinical picture of fever, cough, chills Exam complete
--- NOTE | 2023-09-22 19:23 | W.POCUS ---
Pocus Exam Limited Cardiac Exam DATE OF EXAM: 09/22/23 TIME OF EXAM: 17:33 REASON FOR EXAM: Dyspnea and Evaluation of LV function VISUALIZED STRUCTURES: four chambers, LVOT, aortic valve, mitral valve, Interventricular septum and IVC VIEW OBTAINED: Apical 4-Chamber, Parasternal long-axis (poor quality PLAX images), Parasternal short-axis and Subxiphoid PERTINENT FINDINGS/IMPRESSION: IVC inspiratory collapsability and Other Normal LV and RV systolic function w/ no apparent regional wall motion abnormalities. Borderline RVH and mild LVH, E/e' is borderline elevated at 14 and TAPSE is normal at 32 mm, IVC is 1.32 cm and has over 50% collapsibility suggesting RAP is approximately 3 cm. ; No LV dysfunction, No pericardial effusion, No plethoric IVC, No RV dilation and No RV dysfunction Exam complete
[2023-09-22 19:27] LABS: Lab Add On Test DONE
[2023-09-22 19:37] LABS: C-Reactive Protein 7.43 mg/dL (0.0-0.3)
[2023-09-22 20:06] LABS: Procalcitonin 0.7 ng/mL
[2023-09-22] MEDS: Carvedilol 12.5 MG TAB PO (20:09)
[2023-09-22] MEDS: guaiFENesin 600 MG TABCR 1200 MG PO (20:09)
[2023-09-22] MEDS: Albuterol/Ipratropium 3 ML UPD VIAL IH (20:13)
[2023-09-22] MEDS: cloNIDine 0.1 MG TAB PO (21:38)
[2023-09-22] MEDS: Nicotine 21 MG/24 HR PATCH TD (21:38)
[2023-09-23] VITALS (15 sets, daily range): BP systolic 160–178; BP diastolic 67–75; PULSE 20–72; RESP 3–20; TEMP 36–37.1; O2SAT 89–99
[2023-09-23] MEDS: DOXYCYCLINE 100 MG in Normal Saline 100 ML IVPB ×2 (05:50→17:35)
[2023-09-23 07:24] LABS: BUN 25 mg/dL (7-18); CREATININE 1.9 mg/dL (0.70-1.30); Calcium 9.4 mg/dL (8.5-10.1); Chloride 102 mmol/L (98-107); Estimated GFR 37.48 (mL/min/1.73m2); Glucose 148 mg/dL (74-106); Magnesium 2.7 mg/dL (1.8-2.4); Potassium 4.1 mmol/L (3.5-5.1); Sodium 138 mmol/L (136-145); TSH (W/Ref FT4) 0.48 uIU/mL (0.36-3.74)
[2023-09-23] MEDS: Albuterol/Ipratropium 3 ML UPD VIAL IH ×4 (07:45→19:12)
[2023-09-23] MEDS: cefTRIAXone 2 GM/50 ML BAG IVPB (08:07)
[2023-09-23] MEDS: Torsemide 20 MG TAB PO (08:07)
[2023-09-23] MEDS: Clopidogrel 75 MG TAB PO (08:07)
[2023-09-23] MEDS: Pantoprazole 40 MG TABCR PO (08:07)
[2023-09-23] MEDS: Rosuvastatin 20 MG TAB 40 MG PO (08:07)
[2023-09-23] MEDS: guaiFENesin 600 MG TABCR 1200 MG PO ×2 (08:07→20:08)
[2023-09-23] MEDS: Aspirin E.C. 81 MG TABEC PO (08:07)
[2023-09-23] MEDS: Finasteride 5 MG TAB PO (08:07)
[2023-09-23] MEDS: Tamsulosin 0.4 MG CAPCR 0.8 MG PO (08:07)
[2023-09-23] MEDS: amLODIPine 10 MG TAB PO (08:07)
[2023-09-23] MEDS: Carvedilol 12.5 MG TAB PO ×2 (08:07→20:09)
--- NOTE | 2023-09-23 08:15 | RESPIRATORY ---
RT spoke with patient concerning the use of home oxygen, patient stated has the equipment but he doesn't use it. RT asked what liter flow he was originally prescribed and patient stated he uses 2LPM and the DME is [facility].
--- NOTE | 2023-09-23 08:59 | INITIAL_ITS ---
Date of service: 09/23/23 Time of Service: 08:59 Care Management Initial Assmt Initial Assessment REASON FOR HOSPITALIZATION:: Acute hypoxemic respiratory failure, COPD, pneumonia, CHF PREVIOUS FUNCTIONAL STATUS/SOCIAL/FAMILY SUPPORTS:: Paul resides in [place], [place] with his , Luma. His is independent at baseline though struggles with ongoing respiratory issues for some time. Paul and Luam's family reside outside of [place] but they reports a good natural support system of friends locally. CURRENT FUNCTIONAL STATUS:: Paul is advocating for returning home stating my is dying. supported Elroy to remain at [facility] overnight. ADVANCE DIRECTIVES:: None on file. Has patient been provided with info about the portal/API?: No Did the patient sign up for the portal?: No CODE STATUS:: Full Code INSURANCE COVERAGE / FINANCIAL ISSUES:: [employer] Medicare C CURRENT HOME/COMMUNITY SERVICES/EQUIPMENT:: No current services or equipment reported at this time. PRIMARY CARE PHYSICIAN:: [facility] Watkins MD POTENTIAL DISCHARGE NEEDS:: Follow up appointments. PATIENT/FAMILY EDUCATION NEEDS:: Review discharge instructions, discuss Ask Me Three. ANTICIPATED BARRIERS TO DISCHARGE:: None identified. TRANSPORTATION:: Via private vehicle with Luma. PLAN:: Paul will return home when ready per MD. He will follow up with his PCP and plan of care as prescribed and transport via private vehicle with a friend. CM will continue to follow and support discharge planning considerations. PFSH All Active Problems (Updated 09/22/23 @ 19:08 by Jamari Hall MD) Acute hypoxemic respiratory failure (Acute) BPH w urinary obs/LUTS (Acute) Microcytic anemia (Acute) UTI (urinary tract infection) (Acute) Presence of stent in coronary artery in patient with coronary artery disease (Acute) Acute on chronic renal failure (Acute) Diastolic CHF (Chronic) HTN (hypertension) (Chronic) DVT prophylaxis (Acute) Pneumonia (Acute) COPD exacerbation (Acute) Chronic renal failure (Chronic) Medical History (Updated 09/22/23 @ 19:08 by Jamari Hall MD) Non-STEMI (non-ST elevated myocardial infarction) History of tobacco use Hypospadias Chronic kidney disease, stage 3 Peripheral arterial occlusive disease Constipation Depression Lower urinary tract symptoms (LUTS) Exertional dyspnea Pulmonary hypertension due to left heart disease Coronary artery disease Diastolic heart failure Lower back pain Dysuria Anemia, iron deficiency Heartburn Screening for colon cancer Nocturia Urinary frequency Prediabetes Hypoxemia Multiple pulmonary nodules Lumbar back pain with radiculopathy affecting lower extremity Former smoker Congestion of nasal sinus CKD (chronic kidney disease) CHF (congestive heart failure) Alcoholism in recovery Hypospadias in male COPD (chronic obstructive pulmonary disease) Hyperlipidemia Essential hypertension Surgical History History of phacoemulsification of cataract of both eyes with intraocular lens implantation History of tonsillectomy Family History Father Throat cancer Heart disease Myocardial infarction Brother Heart disease Status post coronary stents Social History Smoking/Tobacco Use Status: Former Tobacco Use Quit Date: 01/11/17 Smoking risk assessment performed?: Yes Alcohol Intake: former Year quit: 2016 Details: Former alcoholic up to 2 cases of gin per month Drug use: Never Substance use type: does not use Housing: house Number of Children: 0 Pets and animals: Yes Pets and animals: dog(s) What is your relationship status?: Panel score (0-1 are the most socially isolated patients): 1 Do you feel safe at home: Yes Do you feel safe in your relationship?: Yes
[2023-09-23] MEDS: Tiotropium Bromide-Respimat 10 PUFF INH IH (09:20)
[2023-09-23] MEDS: Budesonide/Formoterol 80/4.5 6.9 GM 60 PUFF INH IH ×2 (09:20→19:12)
[2023-09-23] MEDS: Polyethylene Glycol 3350 17 GM PACKET PO (10:07)
--- NOTE | 2023-09-23 11:54 | PGE_ITS ---
Date of Service Date of service: 09/23/23 Time of Service: 11:54 Assessment and Plan Assessment and plan (1) Acute hypoxemic respiratory failure: Status: Acute Assessment and plan: secondary to pneumonia superimposed on COPD and diastolic HF, clinically he does not seem to be in overt CHF, i.e. no JVD, no pitting pretibial or sacral edema. continue treatment for pneumonia w/ Ceftriaxone 2 gm iv q24h along w/ doxycycline 100 mg q12h, but can change doxy to po. continue mucinex, and DuoNeb treatments along w/ his LABA/LAMA/ICS, Acapella and incentive spirometer. Continue to attempt to obtain a sputum culture. Urine strep and Legionella antigens are pending at this time. We will add systemic corticosteroids. Professional time spent interviewing and examining patient, discussion of goals of care with hospital team (care management, nursing and consulting professionals) was 35 minutes. (2) Pneumonia: Status: Acute Assessment and plan: as above Qualifiers: Pneumonia type: due to unspecified organism Laterality: right Lung location: lower lobe of lung Qualified Code(s): J18.1 - Lobar pneumonia, unspecified organism (3) HTN (hypertension): Status: Chronic Assessment and plan: continue current home medications of carvedilol, amlodipine, torsemide, and clonidine. Unclear to me as to why he has been prescribe clonidine if he has HFPEF. he ought to be on an ISHAN inhibitor or an ARB inspite of his renal failure. Furthermore clonidine is an alpha scottie and carvedilol also has alpha scottie activity as well as beta scottie. If his HR will tolerate then his carvedilol dose should be titrated upward. I will order prn hydralazine to cover an severe/acute BP elevations over 190 mm. Otherwise I will wait and see how his BP does overnight and consider titration of carvedilol and consider adding an ARB. Patient's chart has lisinopril listed as an allergy however there is no documentation as to his reaction to this. He does not recall any medicine causing any symptoms of angioedema nor any puritic rashes. He lists tylenol #3 as an allergy only d/t the constipating side effects. He says that his BP is usually well controlled, i.e. he means 140's to 150's. I will allow that his BP is less than optimal control here in the hospital d/t stress of the pneumonia and he is worried about his but I explained to him w/ his CKD and HFPEF that SBP in the 140's to 150's is not good control if he wants to prevent worsening renal failure or heart failure. Although he has CKD w/ creatinine around 2, this should not prevent use of an ISHAN-I nor an ARB. I will trial him on Entresto but we will need to closely monitor his renal function including close outpatient monitoring by his PCP. Qualifiers: Hypertension type: primary hypertension Qualified Code(s): I10 - Essential (primary) hypertension (4) Chronic renal failure: Status: Chronic Assessment and plan: stable creatinine 1.9. closely monitor while going on Entresto. Qualifiers: Chronic kidney disease stage: stage 3 (moderate) Qualified Code(s): N18.3 - Chronic kidney disease, stage 3 (moderate) (5) COPD (chronic obstructive pulmonary disease): Assessment and plan: continue his Trelegy and use scheduled DuoNeb and prn albuterol for any breakthrough wheezing. will give short course of systemic corticosteroids. Qualifiers: COPD type: COPD with acute lower respiratory infection Qualified Code(s): J44.0 - Chronic obstructive pulmonary disease with (acute) lower respiratory infection (6) DVT prophylaxis: Status: Acute (7) Coronary artery disease: Assessment and plan: continue DAPT, statin and carvedilol, no evidence of ACS this admission Qualifiers: Coronary Disease-Associated Artery/Lesion type: [place] artery [place] vs. 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 He does feel better but still gets dyspneic w/ any activity. Cough is more moist and productive but he has not been able to provide us a specimen for culture. Exam Narrative Exam Narrative: Paul was seen while he was doing his DuoNeb treatment for RT this morning. He is alert and oriented and in no acute respiratory distress Lungs: bibasilar rales, upper teran are clear w/ prolonged expiratory phase; no rhonchi Heart: RRR, no murmur Abdomen: obese, soft, nontedner Extremities: no pitting edema Objective Last Vital Signs Temp 36.1 C L 09/23/23 07:17 Pulse 58 L 09/23/23 11:51 Resp 20 09/23/23 11:51 BP 170/73 H 09/23/23 07:17 Pulse Ox 95 09/23/23 11:51 Laboratory Results - last 24 hr 09/22/23 09/22/23 09/22/23 12:42 13:50 18:43 Sodium Potassium Chloride Carbon Dioxide Anion Gap BUN Creatinine Est GFR (CKD-EPI 2020) Glucose Calcium Magnesium Troponin I < 50 C-Reactive Protein 7.43 H Procalcitonin 0.7 TSH Urine Color Yellow Urine Clarity Clear Urine pH 5.0 Ur Specific [place] 1.010 Urine Protein 100 H Urine Ketones Negative Urine Blood Small H Urine Nitrite Negative Urine Bilirubin Negative Urine Urobilinogen 0.2 Ur Leukocyte Esterase Small H Urine RBC 3-5 H Urine WBC 10-20 H Ur Epithelial Cells Moderate Urine Crystals Negative Urine Bacteria Few Urine Casts 3-5 Fine Granular Urine Mucus Negative Ur Culture Indicated? No/Sq. Contamination Urine Glucose 500 H Add-On Test Request DONE 09/23/23 06:15 Sodium 138 Potassium 4.1 Chloride 102 Carbon Dioxide 22.0 Anion Gap 14.0 H BUN 25 H Creatinine 1.9 H Est GFR (CKD-EPI 2020) 37.48 Glucose 148 H Calcium 9.4 Magnesium 2.7 H Troponin I C-Reactive Protein Procalcitonin TSH 0.48 Urine Color Urine Clarity Urine pH Ur Specific [place] Urine Protein Urine Ketones Urine Blood Urine Nitrite Urine Bilirubin Urine Urobilinogen Ur Leukocyte Esterase Urine RBC Urine WBC Ur Epithelial Cells Urine Crystals Urine Bacteria Urine Casts Urine Mucus Ur Culture Indicated? Urine Glucose Add-On Test Request Time Spent with Patient Time Spent with Patient: 35-49 minutes Time was spent: preparing to see the patient(eg.review tests), ordering medications,tests, procedures, referring, communicating with other health director of healthcare systems, indepentently interpreting results, counseling the patient and care coordination
--- NOTE | 2023-09-23 13:21 | PHA.REVIEW2 ---
Pharmacy Admission Review Admission Clinical Review Admission Pharmacy Review: (Updated 09/22/23 @ 19:08 by Jamari Hall MD) Acute hypoxemic respiratory failure (Acute) DVT prophylaxis (Acute) Pneumonia (Acute) lisinopril Adverse Reaction (Unknown, Unverified 09/23/23 12:58) low BP, worsening CKD codeine phosphate [From Tylenol-Codeine] Adverse Reaction (Unverified 09/23/23 12:58) constipation Resuscitation Status Full Code Height 5 ft 8 in Weight 102.8 kg Comments Comments/Follow Ups: MD asked for research regarding Lisinopril allergy as listed in MR. Reached out to [email or web address], they have NKA (but last updated 2009), found patient did receive two doses of Lisinopril 5mg during inpt stay 04/2019, also found in two H&P's from previous admissions that his CKD worsened after addition of a medication and then resolved after discontinuation (assumption that it could be an ISHAN), and another that mentioned hypotension after ISHAN administration at which MD updated the chart. Found via the allergy audit trail that the Lisinopril was added to the allergy list 12/04/2019 by an employee of the specialty clinic (Urology or Cardiology). Patient did not express to the MD that he recalled an allergic reaction, no documentation of any Angioedema. MD wanted to begin therapy with Entresto for heart failure with preserved EF Pharmacy Admission Review Renal Dosing Renal Dosing: BUN 25 mg/dL (7-18) H 09/23/23 06:15 Creatinine 1.9 mg/dL (0.70-1.30) H 09/23/23 06:15 CrC~42ml/min (improved overnight) Anticoagulation Anticoagulation: Hgb 12.5 g/dL (13.5-17.5) L 09/22/23 08:48 Hct 40.9 % (40.0-50.0) 09/22/23 08:48 Plt Count 239 10^3/uL (130-400) 09/22/23 08:48 Creatinine 1.9 mg/dL (0.70-1.30) H 09/23/23 06:15 DVT Prophylaxis: Reviewed Medications: Enoxaparin Relevant Labs Relevant Labs: Sodium 138 mmol/L (136-145) 09/23/23 06:15 Potassium 4.1 mmol/L (3.5-5.1) 09/23/23 06:15 Chloride 102 mmol/L (98-107) 09/23/23 06:15 Magnesium 2.7 mg/dL (1.8-2.4) H 09/23/23 06:15 C-Reactive Protein 7.43 mg/dL (0.0-0.3) H 09/22/23 12:42 Cardiac Review Cardiac Review: Troponin I < 50 ng/L (<or=60) 09/22/23 12:42 NT-Pro-B Natriuret Pep 5443 pg/mL (<300) H 09/22/23 08:48 Pharmacy Antibiotic Review Relevant Labs: Relevant Labs 09/22/23 12:42 C-Reactive Protein 7.43 H Procalcitonin 0.7 Comments Comments/Follow Ups: MD asked for research regarding Lisinopril allergy as listed in MR. Reached out to [email or web address], they have NKA (but last updated 2009), found patient did receive two doses of Lisinopril 5mg during inpt stay 04/2019, also found in two H&P's from previous admissions that his CKD worsened after addition of a medication and then resolved after discontinuation (assumption that it could be an ISHAN), and another that mentioned hypotension after ISHAN administration at which MD updated the chart. Found via the allergy audit trail that the Lisinopril was added to the allergy list 12/04/2019 by an employee of the specialty clinic (Urology or Cardiology). Patient did not express to the MD that he recalled an allergic reaction, no documentation of any Angioedema. MD wanted to begin therapy with Entresto for heart failure with preserved EF
[2023-09-23] MEDS: Dexamethasone 10 MG/ML VIAL IVP (13:24)
[2023-09-23] MEDS: Normal Saline Flush 10 ML SYR IVP ×2 (13:25→17:35)
[2023-09-23] MEDS: Enoxaparin 40 MG/0.4 ML SYR SC (17:34)
[2023-09-23] MEDS: Sacubitril/Valsartan 24 mg/26 mg TAB 1 EACH PO (20:09)
[2023-09-23] MEDS: cloNIDine 0.1 MG TAB PO (20:09)
[2023-09-23] MEDS: Nicotine 21 MG/24 HR PATCH TD (20:09)
[2023-09-24 00:23] VITALS: BP 146/64; PULSE 56; RESP 18; TEMP 36.3; O2SAT 87
[2023-09-24 01:58] VITALS: O2SAT 92
[2023-09-24 03:48] VITALS: BP 163/64; PULSE 61; RESP 18; TEMP 36; O2SAT 92
[2023-09-24] MEDS: DOXYCYCLINE 100 MG in Normal Saline 100 ML IVPB (05:53)
[2023-09-24 07:29] LABS: Legionella Ag Detection Urine Negative (Negative)
[2023-09-24 07:32] VITALS: BP 152/72; PULSE 67; RESP 20; TEMP 36.3; O2SAT 92
[2023-09-24 07:37] VITALS: PULSE 61; RESP 20; O2SAT 91
[2023-09-24] MEDS: Albuterol/Ipratropium 3 ML UPD VIAL IH (07:37)
[2023-09-24] MEDS: Budesonide/Formoterol 80/4.5 6.9 GM 60 PUFF INH IH (07:38)
[2023-09-24] MEDS: Tiotropium Bromide-Respimat 10 PUFF INH IH (07:38)
[2023-09-24] MEDS: cefTRIAXone 2 GM/50 ML BAG IVPB (08:15)
[2023-09-24] MEDS: Normal Saline Flush 10 ML SYR IVP ×2 (08:15→09:26)
[2023-09-24] MEDS: Rosuvastatin 20 MG TAB 40 MG PO (08:16)
[2023-09-24] MEDS: predniSONE 20 MG TAB 40 MG PO (08:16)
[2023-09-24] MEDS: Sacubitril/Valsartan 24 mg/26 mg TAB 1 EACH PO (08:17)
[2023-09-24] MEDS: Clopidogrel 75 MG TAB PO (08:17)
[2023-09-24] MEDS: guaiFENesin 600 MG TABCR 1200 MG PO (08:17)
[2023-09-24] MEDS: Finasteride 5 MG TAB PO (08:17)
[2023-09-24] MEDS: Pantoprazole 40 MG TABCR PO (08:17)
[2023-09-24] MEDS: Aspirin E.C. 81 MG TABEC PO (08:18)
[2023-09-24] MEDS: Carvedilol 12.5 MG TAB PO (08:18)
[2023-09-24] MEDS: Tamsulosin 0.4 MG CAPCR 0.8 MG PO (08:18)
[2023-09-24] MEDS: amLODIPine 10 MG TAB PO (08:18)
[2023-09-24] MEDS: Torsemide 20 MG TAB PO (08:18)
--- NOTE | 2023-09-24 10:39 | W.PM.DS.N ---
Date of service: 09/24/23 Time of Service: 10:39 DS: Diagnosis Discharge Diagnosis (1) Acute hypoxemic respiratory failure: Status: Resolved (2) Pneumonia: Status: Acute (3) Lung nodule: Status: Acute Asessment and Plan: 4 cm right hilar infiltrate vs mass was seen. Patient was treated for pneumonia however he needs repeat imaging to assess clearance after he completes his course of antibiotics. Additional 7 mm nodule was seen in the left lower lobe was also seen on CT scan. This is too small to biopsy but will need close monitoring for evidence of growth. Pulmonary referral and PET/CT is recommended. (4) HTN (hypertension): Status: Chronic (5) Chronic renal failure: Status: Chronic (6) COPD (chronic obstructive pulmonary disease): (7) DVT prophylaxis: Status: Deleted (8) Coronary artery disease: Discharge Plan Disposition Patient Disposition: Home Condition: Good Discharge Details Reason For Visit: Acute Hypoxemic Resp failure, COPD, pneumonia, CHF Admit Date/Time: 09/22/23 13:06 Admit Provider: Jamari Hall Attending Provider: Jamari Hall Primary Care Provider: Bryant Watkins Hospital Course Hospital Course: 72-year-old male former smoker with history of COPD/hypertension coronary artery disease chronic kidney disease and diastolic heart failure presents emergency department with 5 days of generalized malaise weakness and chills and worsening cough. Workup in the ED included CT scan of his chest that demonstrated no evidence of pulmonary embolism but there is roughly 4 cm mass in the right hilum versus an infiltrate as well as additional 7 mm nodule left lower lobe. No pleural effusions were seen. Patient did not have a fever on admission but did have leukocytosis of 13,000 and mildly elevated procalcitonin level of 0.7 and CRP of 7.43 were suggestive of infectious source. He was empircally treated for pneumonia w/ DuoNeb bronchodilators, oxygen and parenteral antibiotics including Ceftriaxone and doxycycline and given corticosteroids. The ED provider thought that he was in CHF exacerbation however he had no pedal or tibial or presacral edema, no JVD and his lung POCUS exam did not show diffuse B lines. The CT scan did not look like CHF, although is BNP was elevated at 5400. He was given one time dose of lasix in the ED and begun on the antibiotics. No blood cultures were obtained and he was not able to produce a sputum specimen. He was kept on his home meds including his torsemide. He improved in his dyspnea and cough and was back to a baseline oxygen saturation of 92 to 94% at rest and with ambulation his lowest SPO2 was 88% at the end of a walk but recovered to 92% at rest. Patient was discharged home on a 5 day course of Augmentin and doxycycline and prednisone. A repeat CT scan is needed within a couple weeks to assess resolution of the 4 cm right hilar density. The 7 mm nodule willl need follow up as well w/ repeat CT scan within 4 months to ensure that this is not growing. Pulmonary referral is also advised. Home Meds and New Rx's Prescriptions: New amoxicillin-pot clavulanate 875-125 mg tablet 1 tab PO BID 5 Days Qty: 10 0RF doxycycline hyclate 100 mg tablet 100 mg PO BID 5 Days Qty: 10 0RF prednisone 20 mg tablet 40 mg PO DAILY 5 Days Qty: 10 0RF Continued nitroglycerin 0.4 mg tablet, sublingual 0.4 mg SL Q5M PRN rosuvastatin 40 mg tablet 40 mg PO DAILY finasteride 5 mg tablet 5 mg PO DAILY Qty: 90 3RF tamsulosin [Flomax] 0.4 mg capsule 0.8 mg PO DAILY Qty: 180 3RF guaifenesin [Mucinex] 600 mg tablet extended release 12hr 600 mg PO BID PRN Trelegy Ellipta 100-62.5-25 mcg blister with device 1 inh inhalation DAILY clonidine HCl 0.1 mg tablet 0.1 mg PO QHS nicotine 21 mg/24 hr patch 24 hour 1 patch transdermal DAILY carvedilol 12.5 mg Tablet 12.5 mg PO BID clopidogrel [Plavix] 75 mg Tablet 75 mg PO DAILY aspirin [Aspir-81] 81 mg Tablet,Delayed Release (Dr/Ec) 81 mg PO DAILY pantoprazole 40 mg Tablet,Delayed Release (Dr/Ec) 40 mg PO DAILY albuterol sulfate [ProAir HFA] 200 PUFF HFA aerosol inhaler 2 puff Inhalation Q4H PRN PRNQty: 1 0RF torsemide 20 mg Tablet 20 mg PO DAILY amlodipine 10 mg Tablet 10 mg PO DAILY polyethylene glycol 3350 [GlycoLax] 17 gram/dose Powder 17 g PO DAILY PRN ipratropium-albuterol 0.5 mg-3 mg(2.5 mg base)/3 mL solution for nebulization 3 ml IH Q6H Qty: 90 0RF Discharge Instructions Instructions: Doxycycline (By mouth), Amoxicillin/Clavulanate Potassium (By mouth), Bacterial Pneumonia (DC) Additional Instructions: You were treated for pneumonia and given intravenous antibiotics including Rocephin and doxycycline and given aerosolized bronchodilators and steroids. You are being sent home on another 5 days of antibiotics (Augmentin and doxycycline) as well as short course of corticosteroids (prednisone). Continue to use your inhalers every 4 to 6 hours while awake for next few days and use the incentive spirometer and Vibra-pep device (or acapella) to help mobilize your secretions and clear your airways. Monitor your blood pressures and daily weights and get a home pulse oximeter so you can monitor your oxygen levels. Please see your PCP in the next week and get a follow up chest xray in 2 weeks. Stand Alone Forms: Nursing Discharge Form Referrals: Bryant Watkins MD [Primary Care Provider] - (to be seen within one week, recheck chest xray in 10 to 14 days. Please call on Monday. ) Activity:: Activity as Tolerated Equipment/Supplies:: No Equipment Needed Diet:: Low Sodium Discharge Orders Discharge Orders: Discharge Order (Routine); Ordered 09/24/23 Ordered By: Jamari Hall Discharge Data Discharge Date/Time-TO BE ENTERED AT DEPARTURE: 09/24/23 11:16 DS: Summary Time Spent with Patient providing and/or coordinating discharge services: Greater than 30 minutes Status at Discharge Functional status at discharge: independent ambulation Overall status at discharge: patient is back to baseline Mental Status: mental status grossly normal Speech and Movement: speech and movement normal Mood: congruent mood Affect: normal affect Exam Psych Mental Status: mental status grossly normal Speech and Movement: speech and movement normal Mood: congruent mood Affect: normal affect DS: Data Vitals/I&O Vitals and I&O: Vital Signs Temperature 36.3 C L 09/24/23 07:32 Temperature Source Tympanic 09/24/23 07:32 Pulse 61 09/24/23 07:37 Pulse Rhythm Regular 09/24/23 07:21 Pulse 80 09/22/23 16:10 Respiratory Rate 20 09/24/23 07:37 Respiratory Effort Non-Labored, Short of Breath 09/24/23 07:21 Respiratory Depth Normal 09/24/23 07:21 Respiratory Pattern Normal 09/24/23 07:21 Blood Pressure 152/72 H 09/24/23 07:32 Blood Pressure Mean 99 09/22/23 15:01 Blood Pressure Position Sitting 09/22/23 08:43 Pulse Oximetry 91 L 09/24/23 07:37 Oxygen Delivery Method Nasal Cannula 09/24/23 07:37 Oxygen Flow Rate 2 09/24/23 07:37 Pain Level 0 09/24/23 07:32 Comment BP called over radio 09/24/23 07:32 Intake & Output 09/23/23 09/23/23 09/24/23 11:59 23:59 11:59 Intake Total 100 / 790 690 / 790 590 / 590 Output Total 800 / 800 Balance -700 / -10 690 / -10 590 / 590 Intake: IV 100 / 350 250 / 350 150 / 150 Oral 440 / 440 440 / 440 Output: Urine 800 / 800 Other: Urine Color Dark Denisse Urine Appearance Cloudy Urine Odor None Comment pT stated they just voided Voiding Methods Incontinent Toilet PFSH All Active Problems (Updated 09/25/23 @ 08:58 by Jamari Hall MD) Lung nodule (Acute) BPH w urinary obs/LUTS (Acute) Microcytic anemia (Acute) UTI (urinary tract infection) (Acute) Presence of stent in coronary artery in patient with coronary artery disease (Acute) Acute on chronic renal failure (Acute) Diastolic CHF (Chronic) HTN (hypertension) (Chronic) Pneumonia (Acute) COPD exacerbation (Acute) Chronic renal failure (Chronic) Medical History (Updated 09/25/23 @ 08:58 by Jamari Hall MD) Non-STEMI (non-ST elevated myocardial infarction) History of tobacco use Hypospadias Chronic kidney disease, stage 3 Peripheral arterial occlusive disease Constipation Depression Lower urinary tract symptoms (LUTS) Exertional dyspnea Pulmonary hypertension due to left heart disease Coronary artery disease Diastolic heart failure Lower back pain Dysuria Anemia, iron deficiency Heartburn Screening for colon cancer Nocturia Urinary frequency Prediabetes Hypoxemia Multiple pulmonary nodules Lumbar back pain with radiculopathy affecting lower extremity Former smoker Congestion of nasal sinus CKD (chronic kidney disease) CHF (congestive heart failure) Alcoholism in recovery Hypospadias in male COPD (chronic obstructive pulmonary disease) Hyperlipidemia Essential hypertension Surgical History History of phacoemulsification of cataract of both eyes with intraocular lens implantation History of tonsillectomy Family History Father Throat cancer Heart disease Myocardial infarction Brother Heart disease Status post coronary stents Social History Smoking/Tobacco Use Status: Former Tobacco Use Quit Date: 01/11/17 Smoking risk assessment performed?: Yes Alcohol Intake: former Year quit: 2016 Details: Former alcoholic up to 2 cases of gin per month Drug use: Never Substance use type: does not use Housing: house Number of Children: 0 Pets and animals: Yes Pets and animals: dog(s) What is your relationship status?: Panel score (0-1 are the most socially isolated patients): 1 Do you feel safe at home: Yes Do you feel safe in your relationship?: Yes Time Spent with Patient Time Spent with Patient: <45 minutes Time was spent: preparing to see the patient(eg.review tests), ordering medications,tests, procedures, referring, communicating with other health director long term care, indepentently interpreting results, counseling the patient and care coordination
--- NOTE | 2023-09-24 16:56 | PDOC.CMDIS ---
Date of service: 09/24/23 Time of Service: 16:56 LACE Index Scoring Tool Questions: Length of Stay (in days): 2 Was the patient admitted via the E.D.?: Yes Comorbidities: Chronic Pulmonary Disease and Liver or Renal Disease E.D. Visits: 1 Answers: Total Score: 11 Risk of Readmission: High Risk Care Management Discharge Plan Reason for Hospitalization: Acute hypoxemic respiratory failure, COPD, pneumonia, CHF Discharge Plan: Paul will return home with no additional services, he will follow up with community providers and transport via private vehicle with a friend. He remains very concerned about his , who is currently on chemotherapy and advocated for early discharge. Patient/Family Education Needs: Review of discharge instructions, discuss Ask Me Three.
[2023-09-25 23:54] LABS: Streptococcus Pneumoniae Ag, U Negative (Negative)
== END 2023-09-24 11:16 | disposition home or self-care (01) | DRG 193 ==
LOC: ER 16:20 → MS 16:30
PROVIDERS: Admitting Provider Internal Medicine; Emergency Provider Physician Assistant; PCP Internal Medicine; Visit Provider Internal Medicine
DX: J18.1 Lobar pneumonia, unspecified organism (principal); J96.01 Acute respiratory failure with hypoxia; J44.0 Chronic obstructive pulmonary disease with (acute) lower respiratory infection; I13.0 Hypertensive heart and chronic kidney disease with heart failure and stage 1 through stage 4 chronic kidney disease, or unspecified chronic kidney disease; I50.32 Chronic diastolic (congestive) heart failure; N17.9 Acute kidney failure, unspecified; J44.1 Chronic obstructive pulmonary disease with (acute) exacerbation; N18.30 Chronic kidney disease, stage 3 unspecified; I25.10 Atherosclerotic heart disease of native coronary artery without angina pectoris; N40.1 Benign prostatic hyperplasia with lower urinary tract symptoms; D50.9 Iron deficiency anemia, unspecified; Z95.5 Presence of coronary angioplasty implant and graft; I25.2 Old myocardial infarction; Z87.891 Personal history of nicotine dependence; I73.9 Peripheral vascular disease, unspecified; K59.00 Constipation, unspecified; F32.A Depression, unspecified; I27.22 Pulmonary hypertension due to left heart disease; M54.50 Low back pain, unspecified; R35.1 Nocturia; R35.0 Frequency of micturition; R73.03 Prediabetes; R91.8 Other nonspecific abnormal finding of lung field; M54.16 Radiculopathy, lumbar region; F10.21 Alcohol dependence, in remission; E78.5 Hyperlipidemia, unspecified
CPT/HCPCS: 00123; 36415; 71275; 76604; 80048; 80053; 84145; 87449; 87637; 93005; 93308; 94640; 96365; 96366; 96367; 96372; 96375; 96376; 99285; J1650; 71045; 81003; 81015; 83735; 83880; 84443; 84484; 85025; 85379; 86140; 87899; 93010; 94664; 94667; 94668; 94760; 99223; 99232; 99239; J0696; J1100; J1940; J2930; J7512; J7620

== ENCOUNTER 2024-01-09 17:40 | Outpatient (REF) | payer MEDICARE, SELFPAY | END 2024-01-09 17:41 | disposition home or self-care (01) | LOC: NCHCN 17:40 | PROVIDERS: PCP Internal Medicine; Referring Provider Family Medicine; Visit Provider Family Medicine | DX: N39.0 Urinary tract infection, site not specified (principal) | CPT/HCPCS: 87077; 87086; 87186 ==

== ENCOUNTER → 2024-02-27 02:30 | Outpatient (CLI) | payer MEDICARE, SELFPAY ==
--- NOTE | 2024-02-27 | DI.CT_ITS ---
Exam(s) CT CHEST WO EXAM: CT CHEST WO CLINICAL HISTORY: SOLITARY NODULE R91.1 TECHNIQUE: Imaging Protocol: Axial computed tomography images with coronal and sagittal reformatted images were created and reviewed CONTRAST MATERIAL: Noncontrast. COMPARISON: CT CT CHEST LUNG CANCER SCREEN from 09/29/[address] CHEST PE CTA from 09/22/2023 FINDINGS: Pulmonary parenchyma: Interval clearing of previously noted right perihilar infiltrate. Mild underly ing emphysematous changes. No suspicious mass. Stable appearance of right middle lobe granuloma. P reviously noted nodule in the left lower lobe no longer present. Tracheobronchial tree: No bronchiectasis or mucous plugging. Mediastinum and [place]: Stable small mediastinal lymph nodes. Pleura: No effusion. No pneumothorax. Heart: The heart is mildly dilated. Moderate coronary artery calcifications are seen. Stable appearan ce of anterior pleural thickening. Aorta: Thoracic aorta non-dilated. Mild atherosclerotic changes. Upper abdomen: No acute findings.. Bones: Degenerative changes in the spine with prominent endplate osteophytes.. Soft tissues: Sebaceous cyst the left of the sternum again noted. IMPRESSION: Interval clearing of right perihilar infiltrate. No suspicious abnormalities. RADIATION DOSE DELIVERED: 578.99mGy.cm Total DLP DATA REPOSITORY: All CT scans at this facility are submitted to the National Radiology Data Registry (NRDR) Dose Index Registry (DIR) with the [employer] (A[employer]). RADIATION OPTIMIZATION: All CT scans at this facility use at least one of these dose optimization te chniques: automated exposure control; mA and/or kV adjustment per patient size (includes targeted exa ms where dose is matched to clinical indication); or iterative reconstruction.
== END ==
PROVIDERS: PCP Internal Medicine; Visit Provider Family Medicine
DX: R91.1 Solitary pulmonary nodule (principal)
CPT/HCPCS: 71250

== ENCOUNTER 2024-09-19 10:05 | Outpatient (REF) | payer MEDICARE, SELFPAY ==
--- OUTSIDE RECORDS SUMMARY | 2024-09-19 10:10 | XMS_ITS | Clinical Summary ---
Author Organization [place] [address] Care Team Providers Care Circus Laborer Name Role Phone Bryant Watkins MD Primary Care Provider [phone] Allergies No known active allergies Medications Medication Sig Dispensed Refills Start Date End Date Status carvedilol (COREG) 12.5 mg Tablet Take 1 tablet by mouth 2 times daily (with meals). 60 tablet 02/26/2019 Active clopidogrel (PLAVIX) 75 mg Tablet Take 1 tablet by mouth daily. 30 tablet 02/26/2019 Active nitroGLYcerin (NITROSTAT) 0.4 mg Tablet, Sublingual Place 1 tablet under the tongue every 5 minutes as needed for Chest pain. 30 tablet 02/26/2019 Active rosuvastatin (CRESTOR) 40 mg Tablet Take 1 tablet by mouth every evening. 30 tablet 02/26/2019 Active amLODIPine (NORVASC) 10 mg Tablet Take 10 mg by mouth daily. Active BEVESPI AEROSPHERE 9-4.8 mcg HFA Aerosol Inhaler 02/19/2019 Active ipratropium-albutero l (DUONEB) 0.5 mg-3 mg(2.5 mg base)/3 mL Solution for Nebulization INHALE 1 VIAL VIA NEBULIZER EVERY 6 HOURS 0 02/19/2019 Active aspirin 81 mg Tablet, Chewable Take 81 mg by mouth daily. Active polyethylene glycol (MIRALAX) 17 gram Powder in Packet Take 17 g by mouth 2 times daily as needed. Active terazosin (HYTRIN) 1 mg Capsule Take 1 capsule by mouth nightly. 30 capsule 02/26/2019 Active pantoprazole (PROTONIX) 40 mg Tablet, Delayed Release (E.C.) Take 1 tablet by mouth daily. 30 tablet 02/27/2019 Active SYMBICORT 80-4.5 mcg/actuation HFA Aerosol Inhaler 2 times daily. 05/14/2019 Activ e nicotine (NICODERM CQ) 21 mg/24 hr Patch 24 hr daily. 0 07/02/2019 Active torsemide (DEMADEX) 20 mg Tablet Take 20 mg by mouth daily. 3 06/20/2019 Active Active Problems Problem Noted Date Diagnosed Date Pulmonary hypertension due t o left ventricular diastolic dysfunction 02/22/2019 Overview (02/22/2019): 02/22/2019 L+RHC: PA 62/20 mean 36, RA 11, PCW 19, LVEDP 23 S/P right coronary artery (R CA) stent placement 02/22/2019 in setting of NSTEMI 02/22/2019 Overview (02/24/2019): 3.00 x 24 mm Synergy (ERASMO) Acute diastolic heart failure 02/21/2019 Overview (02/22/2019): Acute Decompensated biventricular, L > R heart failure LVEF est 75% Elevated proBNP (5843) NSTEMI with elevated Tn EKG: NSR with mild dynamic ST changes AHA/ACC stage C, NYHA FTC IIIB Non-ST elevation myocardial infarction (NSTEMI) 02/21/2019 Overview (02/22/2019): Clinical symptoms: HF, no angina Dynamic ST changes Elevated Tn Normal QRS duration 02/22/2019 Proximal eccentric RCA stenosis stented with 3.00 x 24 mm Synergy (ERASMO) Hypertension 02/21/2019 COPD (chronic obstructive pulmonary disease) 09/2019 Overview (02/21/2019): On chronic inhalers Acute renal failure superimp osed on stage 3 chronic kidney disease 02/21/2019 Social History Tobacco Use Types Packs/Day Years Used Date Smoking Tobacco: Former Cigarettes Q uit: 01/06/2016 Smokeless Tobacco: Never Sex and Gender Information Value Date Recorded Sex Assigned at Not on file Gender Identity Not on file Sexual Orientation Not on file Last Filed Vital Signs Vital Sign Reading Time Taken Comments Blood Pressure 148/59 07/16/2019 9:39 AM EDT Man ual Pulse 56 07/16/2019 9:21 AM EDT Temperature 36.9 ??C (98.4 ??F) 02/26/2019 7:43 AM ED T Respiratory Rate 18 02/26/2019 7:43 AM EDT Oxygen Saturation 99% 07/16/2019 9:21 AM EDT Inhaled Oxygen Concentration - - Weight 99.9 kg (220 lb 3.2 oz) 07/16/2019 9:21 A M EDT Height 172.7 cm (5' 8) 07/16/2019 9:21 AM EDT Body Mass Index 33.48 07/16/2019 9:21 AM EDT Plan of Treatment Health Maintenance Due Date Last Done Comments CT Colonography 1952 Colonoscopy 1952 Colorectal Cancer Screening 1952 FIT DNA 1952 FIT 1952 Sigmoidoscopy (10 year) with FIT yearly 1952 Sigmoidoscopy 1952 Hepatitis C Screening 1970 Tetanus/Diphtheria/Pertussis Vaccines (1 - Tdap) 1971 Zoster vaccine (1 of 2) 2002 Advance Directive 2007 AAA Screen 2017 Pneumoccocal Vaccine: 65+ (1 of 1 - PCV) 2017 Covid-19 Vaccine ( - 2023-2 5 season) 2024 Influenza (Flu) vaccine (1 o f 1 - Influenza standard series) 07/14/2024 Diabetes Screening (HgbA1C o r Glucose) Discontinued 07/16/2019, 03/06/2019, 02/26/2019, Additional history exists Procedures Procedure Name Priority Date/Time Associated Diagnosis Comments HC VENIPUNCTURE STAT 07/16/2019 9:06 AM EDT Chronic diastolic heart failure from Last 3 Months or Most Recently Relevant to Health Maintenance Results * (ABNORMAL) Basic Metabolic Panel (non-fasting) (07/16/2019 9:06 AM EDT) Glucose 93 65 - 199 mg/dL [facility] Comment:Diabetes: >=200 mg/d L plus symptoms Blood Urea Nitrogen 23(H) 10 - 20 mg/dL [facility] Creatinine 1.57(H) 0.80 - 1.50 mg/dL [facility] Sodium 141 135 - 145 mmol/L [facility] Potassium 4.0 3.5 - 5.0 mmol/L [facility] Comment: Please note: ??Patients with WBC >100,000 may have falsely elevated Potassium levels. ??For accurate Potassium quantification in these patients send serum separator tube (gold top) for subsequent determinations. ??Contact the Clinical Chemistry Laboratory if there are any questions. Chloride 101 98 - 107 mmol/L [facility] Carbon Dioxide 30 22 - 31 mmol/L [facility] Anion Gap 10 5 - 15 mmol/L [facility] Calcium 9.8 8.5 - 10.5 mg/dL [facility] Est Glomerular Filtration Rate 45(L) >=60 mL/min/1. 73 m?? [facility] Comment: The eGFR was calculated using the CKD-EPI equation. As with all creatinine based estimates of kidney function, eGFR values calculated with the CKD-EPI equation are not accurate in patients with acute kidney failure, extremes of body mass or the acutely ill. [email or web address] eGFR 52(L) >=60 mL/min/1. 73 m?? [facility] Comment: The eGFR was calculated using the CKD-EPI equation. As with all creatinine based estimates of kidney function, eGFR values calculated with the CKD-EPI equation are not accurate in patients with acute kidney failure, extremes of body mass or the acutely ill. [email or web address] Blood specimen (specimen) 07/16/2019 9:06 AM EDT 07/16/2019 9:13 AM EDT Narrative Resulting Agency Comment Spec In Lab Delisa Chen APRN CHEMISTRY ORDERAB LES [facility] [place] [place] [address] from Last 3 Months or Most Recently Relevant to Health Maintenance Advance Directives * Full Code (Latest Code Status on File) Date Activated Date Inactivated Comments 02/21/2019 12:17 PM 02/26/2019 2:44 PM Question Answer Comments Does patient have capacity to make decision: Yes Care Teams Circus Laborer Relationship Specialty Start Date End Date Bryant Watkins MD [address] [place] [address] PCP - General Internal Medicine 02/21/19
--- OUTSIDE RECORDS SUMMARY | 2024-09-19 10:10 | XMS_ITS | Encounter Summary ---
Author Organization [facility] [place] [address] Care Team Providers Care Trust Clerk Name Role Phone Bryant Watkins MD Primary Care Provider [phone] Encounter Details Date Type Department Care Team (Late st Contact Info) Description 04/11/2019 [place] [address] Madina Morel, RN Social History Tobacco Use Types Packs/Day Years Used Date Smoking Tobacco: Former Cigarettes Q uit: 01/06/2016 Smokeless Tobacco: Never Sex and Gender Information Value Date Recorded Sex Assigned at Not on file Gender Identity Not on file Sexual Orientation Not on file documented as of this encounter Miscellaneous Notes * Telephone Encounter - Madina Morel RN - 04/11/2019 12:51 PM EDT Continuing Automatic Door Mechanic telephone call to Paul - as planned following Aide Chen appt with him the end of February: To assess clinical status and particularly VS. Left a message asking for return call, leaving phone number. documented in this encounter Plan of Treatment Not on file documented as of this encounter Visit Diagnoses Not on filedocumented in this encounter Care Teams Trust Clerk Relationship Specialty Start Date End Date Bryant Watkins MD [address] [place] [address] PCP - General Internal Medicine 02/21/19 documented as of this encounter
--- OUTSIDE RECORDS SUMMARY | 2024-09-19 10:10 | XMS_ITS | Encounter Summary ---
Author Organization [facility] Address [facility] [place] [address] Care Team Providers Care Veterans Service Representative Name Role Phone Bryant Watkins MD Primary Care Provider [phone] Encounter Details Date Type Department Care Team (Late st Contact Info) Description 03/06/2019 10:20 AM EDT Office Visit Cardiology at [address] [address] Delisa Chen APRN [facility] [place] [address] [place] [address] Chronic diastolic heart failure; S/P right coronary artery (RCA) stent placement 02/22/2019 in setting of NSTEMI; Non-ST elevation myocardial infarction (NSTEMI); Essential hypertension Social History Tobacco Use Types Packs/Day Years Used Date Smoking Tobacco: Former Cigarettes Q uit: 01/06/2016 Smokeless Tobacco: Never Sex and Gender Information Value Date Recorded Sex Assigned at Not on file Gender Identity Not on file Sexual Orientation Not on file documented as of this encounter Last Filed Vital Signs Vital Sign Reading Time Taken Comments Blood Pressure 143/62 03/06/2019 9:59 AM EDT Pulse 52 03/06/2019 9:59 AM EDT Temperature - - Respiratory Rate - - Oxygen Saturation 97% 03/06/2019 9:59 AM EDT Inhaled Oxygen Concentration - - Weight 101.6 kg (224 lb) 03/06/2019 9:59 AM EDT Height 172.7 cm (5' 8) 03/06/2019 9:59 AM EDT Body Mass Index 34.06 03/06/2019 9:59 AM EDT documented in this encounter Progress Notes * Delisa Chen, CRYPTOLOGIC TECHNICIAN - 03/06/2019 10:20 AM EDT Cardiomyopathy/Heart failure Clinic Follow up Visit. ID and CC: Paul Guzmán is a 68 y.o. male presenting to the HF clinic for follow-up regarding diastolic heart failure after recent hospitalization This is Mr. Harmon first visit to the [facility]. He was admitted on 02/21/2019 for increased SOB. Troponin peaked at 0.[address] changes. Cardiac cath revealed 75% stenosis of proximal RCA, and ERASMO was placed. His acute decompensated diastolic heart failure was treated with IV lasix and he was transitioned to po Torsemide. ProBNP downtrended from 5843 on admission to 466 on discharge. His weight did not change much during the admission (remained at about 220 lbs), however lower extremity edema did improve and he had symptomatic improvement with regard to dyspnea His HTN was initially managed with NYG drip, home amlodipine and terazozin. He was transitioned offMetoprolol and started on Carvedilol. His discharge dose was 12.5 mg bid. He did not tolerated higher dose due to orthostasis and lightheadedness CARLOS MANUEL; peak Cr 3.11, trending down to 2.06 on dicharge. ARF was felt to be due to contrast nephropathy vs. prerenal azotemia from overdiuresis. FENa was consistent with a prerenal cause. Discharged on 02/26/2019 Interim events since hospital discharge: No ED visits or hospitalizations Saw PCP yesterday who increased his Torsemide to 20 mg daily Today: Breathing is a little better Walked from lab to stopped to rest 2-3 times. No change Denies chest pain. Activity level is low at home Will attend cardiac rehab at [facility] Sleeping without PND or orthopnea. Sleeps flat with 3 pillows (chronic) Lower extremity edema is present. Denies abdominal distention Weight at home 221 lb Watching salt intake. Doing very well Denies lightheadedness or dizziness Pre-syncope when getting up too quickly Tolerating medications Has not smoked. No alcohol intake No bleeding events on Plavix Can hear heart pounding in his ear when lying down. Patient Active Problem List Diagnosis ??? Pulmonary hypertension due to left ventricular diastolic dysfunction 02/22/2019 L+RHC: PA 62/20 mean 36, RA 11, PCW 19, LVEDP 23 ??? S/P right coronary artery (RCA) stent placement 02/22/2019 in setting of NSTEMI 3.00 x 24 mm Synergy (ERASMO) ??? Acute diastolic heart failure Acute Decompensated biventricular, L > R heart failure LVEF est 75% Elevated proBNP (5843) NSTEMI with elevated Tn EKG: NSR with mild dynamic ST changes AHA/ACC stage C, NYHA FTC IIIB ??? Non-ST elevation myocardial infarction (NSTEMI) Clinical symptoms: HF, no angina Dynamic ST changes Elevated Tn Normal QRS duration 02/22/2019 Proximal eccentric RCA stenosis stented with 3.00 x 24 mm Synergy (ERASMO) ??? Hypertension ??? COPD (chronic obstructive pulmonary disease) On chronic inhalers ??? Acute renal failure superimposed on stage 3 chronic kidney disease Current Outpatient Medications Medication Sig Dispense Refill ??? carvedilol (COREG) 12.5 mg Tablet Take 1 tablet by mouth 2 times daily (with meals). 60 tablet 0 ??? clopidogrel (PLAVIX) 75 mg Tablet Take 1 tablet by mouth daily. 30 tablet 0 ??? nitroGLYcerin (NITROSTAT) 0.4 mg Tablet, Sublingual Place 1 tablet under the tongue every 5 minutes as needed for Chest pain. 30 tablet 0 ??? rosuvastatin (CRESTOR) 40 mg Tablet Take 1 tablet by mouth every evening. 30 tablet 0 ??? torsemide (DEMADEX) 10 mg Tablet Take 1 tablet by mouth daily. (Patient taking differently: Take 20 mg by mouth daily.) 30 tablet 0 ??? amLODIPine (NORVASC) 10 mg Tablet Take 10 mg by mouth daily. ??? BEVESPI AEROSPHERE 9-4.8 mcg HFA Aerosol Inhaler ??? ipratropium-albuterol (DUONEB) 0.5 mg-3 mg(2.5 mg base)/3 mL Solution for Nebulization INHALE 1VIAL VIA NEBULIZER EVERY 6 HOURS 0 ??? aspirin 81 mg Tablet, Chewable Take 81 mg by mouth daily. ??? polyethylene glycol (MIRALAX) 17 gram Powder in Packet Take 17 g by mouth 2 times daily as needed. ??? terazosin (HYTRIN) 1 mg Capsule Take 1 capsule by mouth nightly. 30 capsule 0 ??? pantoprazole (PROTONIX) 40 mg Tablet, Delayed Release (E.C.) Take 1 tablet by mouth daily. 30 tablet 0 Allergies: Patient has no known allergies. Heart Failure Management: Yes/No No?/Discontinued/Why Beta scottie yes ISHAN/ARB Spironolactone n/a AFIB? no Anticoagulated no Device n/a Physical Exam: Blood pressure 143/62, pulse 52, height 172.7 cm (5' 8), weight 101.6 kg (224 lb), SpO2 97 %. General: WD, WN HEENT: No JVD, no HJR. No carotid bruits Lungs: Bibasilar crackles, no wheezing. Upper lungs clear Cor: Bradycardia, RR, normal S1, S2. PMI not displaced. No murmur or gallop Abd: slightly distended, non-tender Ext: Trace lower extremity edema, no cyanosis or clubbing Lab data: Recent Labs 03/06/19 0858 NA 141 K 5.0 CL 105 CO2 26 BUN 27* CREATININE 1.88* GLUCOSE 88 ProBNP Date Value Ref Range Status 03/06/2019 1,392 (H) <=125 pg/mL Final 02/26/2019 466 (H) <=125 pg/mL Final 02/24/2019 816 (H) <=125 pg/mL Final Lab Results Component Value Date WBC 11.4 (H) 02/26/2019 RBC 5.72 (H) 02/26/2019 HGB 11.0 (L) 02/26/2019 HCT 35.1 (L) 02/26/2019 MCV 61.4 (L) 02/26/2019 MCH 19.2 (L) 02/26/2019 MCHC 31.3 (L) 02/26/2019 PLATELET 355 02/26/2019 RDWCV 18.4 (H) 02/26/2019 Cardiac studies: 02/21/2019 echocardiogram BP: 171/109 ?? SUMMARY: ?? 1. The left ventricular chamber size is normal. Moderate concentric left ventricular hypertrophy is observed without evidence of LVOT obstruction. There is normal global and segmental left ventricular systolic function with quantitative left ventricular ejection fraction of 75% by visual estimation. Diastolic function is technically indeterminate, however, is likely abnormal with evidence of significant systolic blunting in the pulmonary veins. 2. The right ventricle is normal in size. There is mild right ventricular hypertrophy observed. Right ventricular global systolic function is normal. Pulmonary artery hypertension could not be assessed due to inadequate tricuspid regurgitation jet. 3. There is mild bi-atrial dilation. 4. There is no hemodynamically significant valve disease. 5. There is mild dilatation of the aortic root (3.9 cm) and ascending aorta (3.6 cm). 6. See remainder of report for additional findings. 7. There are no prior studies available for comparison. ?? 02/22/2019 cardiac catheterization Hemodynamics: Right Heart Pressures Hemodynamics: Syst Diast EDP a v m RA 16 13 11 RV 55 14 PA 62 20 36 PCW 20 19 19 Hemodynamic Profile: Profile 1 CO 6.43 CI 3.03 TSR 1,443 SVR 1,306 TPR 448 PVR 212 Technique Estimated Herb Left Heart Pressures Resting: Syst Diast EDP a v m Ao 177 76 116 LV 175 23 Oximetry: Location %Sat Location %Sat Superior Vena Cava 55.0 Right Pulmonary 59.0 Artery Peripheral Arterial 90.0 Coronary Angiography: Dominance: Co-dominant Left Main The left main was normal, free of disease. Left Anterior Descending There was a 35% calcified long segmental stenosis of the proximal segment of the left anterior descending artery (LAD). The LAD was large. Left Circumflex There was mild diffuse (<=25% stenosis) disease of the entire vessel segment of the left circumflex artery (LCX). The LCX was large. Right Coronary Artery There was a 75% long segmental stenosis of the proximal segment of the right coronary artery (RCA). The RCA was large. Ramus There was mild diffuse (<=25% stenosis) disease of the entire vessel segment of the ramus. The ramus was small. Indication for Intervention: Coronary intervention was indicated for treatment of post infarction angina. The priority for the procedure was Urgent. [facility] the procedure was NSTE-ACS. LVEF within one week was 75%. Right Heart catheterization was initiated for Hypertensive heart disease with heart failure (I11.0). Intervention Summary: Right Coronary Artery Proximal 75% Stent insertion was performed on the 75% stenosis in the proximal segment of the RCA. This was a de yoandy lesion. According to the ACC/AHA classification system, this lesion was a type B2 high risk lesion. Primary prevention of restenosis was the indication for stent insertion. This was the culprit lesion. A guidewire was placed across this lesion. Vessel flow pre intervention was ROLANDO 3. Lesion length was 12mm. Stent insertion was accomplished through a 6 Fr. JR 4 guide. The lesion was predilated with a 2.50mm TREK 20 MM balloon with a maximum inflation pressure of 12 atmospheres. A premounted 3.00 x 24 mm Synergy (ERASMO) was deployed with a maximum inflation pressure of 16 atmospheres. Following stent deployment, the lesion was dilated using a 3.25mm NC EUPHORA 20 MM balloon with a maximum inflation pressure of 18 atmospheres. The final outcome was defined as successful. There was no residual stenosis following this intervention. The final ROLANDO flow was 3. Vascular Access: Vascular Access Management: Manual Compression of the right median antecubital vein access site was performed. Mechanical Compression of the right radial artery access site was performed. Dual Antiplatelet (DAPT) Recommendations: Drug eluting stent (ERASMO) inserted. P2Y12 Loading dose administered prior to arrival in the clinical lab assistant. Recommend continuing clopidogrel 75 mg PO daily for 12 months. Recommend continuing aspirin 81 mg unless intolerant. Conclusions: * One vessel coronary artery disease (RCA) * Moderate pulmonary hypertension * Elevated pulmonary capillary wedge pressure * Elevated left ventricular end diastolic pressure * Successful stent insertion of the proximal RCA lesion * Recommend continuing clopidogrel 75 mg PO daily for 12 months (see DAPT Recommendations above for more information.) Assessment: 1. NSTEMI/ASCVD S/p ERASMO to prox RCA. On Plavix and ASA (recommend 1 year) Continue BB and statin No SOB or chest pain. No NTG use 2. HTN On Amlodipine, Terazosin and Coreg BP today 143/62. (161/75 right arm with BP machine) Given BP machine and asked to check his BP and record in log book Will call patient to check readings in 2 weeks to determine if med adjustments need to be made 3. HFpEF HR well controlled BP 143/62 in clinic. Higher with manual machine given to pt Continue Torsemide 20 mg (Increased by PCP just yesterday) 4. CKD, stage 3 Cr today 1.88 Will be seen by CKD clinic Continue to monitor Cr with increase in Torsemide 5. 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 A review of the active management and working diagnosis(es) was conducted. 2. The patient's medication list was updated and new Rxs given as needed. 3. Question were answered regarding:diastolic dysfunction, BP control, effects of HTN and HR on diastolic heart dysfunction, importance of daily weights and low salt diet and s/s to prompt a call to HF team 4. The following labs or other testing advised: Daily BP monitoring. Record BP in log book. Will follow-up with pt in 2 weeks. Will notify PCP re: BP 5. Heart Failure Clinic follow up scheduled for: 3 months or sooner if needed Delisa Chen APRN 03/06/2019 documented in this encounter Plan of Treatment Not on file documented as of this encounter Results * (ABNORMAL) Basic Metabolic Panel (non-fasting) (03/06/2019 8:58 AM EDT) Glucose 88 65 - 199 mg/dL [facility] Comment:Diabetes: >=200 mg/d L plus symptoms Blood Urea Nitrogen 27(H) 10 - 20 mg/dL [facility] Creatinine 1.88(H) 0.80 - 1.50 mg/dL [facility] Sodium 141 135 - 145 mmol/L [facility] Potassium 5.0 3.5 - 5.0 mmol/L [facility] Comment: Please note: ??Patients with WBC >100,000 may have falsely elevated Potassium levels. ??For accurate Potassium quantification in these patients send serum separator tube (gold top) for subsequent determinations. ??Contact the Clinical Chemistry Laboratory if there are any questions. Chloride 105 98 - 107 mmol/L [facility] Carbon Dioxide 26 22 - 31 mmol/L [facility] Anion Gap 10 5 - 15 mmol/L [facility] Calcium 9.3 8.5 - 10.5 mg/dL [facility] Est Glomerular Filtration Rate 36(L) >=60 mL/min/1. 73 m?? [facility] Comment: The eGFR was calculated using the CKD-EPI equation. As with all creatinine based estimates of kidney function, eGFR values calculated with the CKD-EPI equation are not accurate in patients with acute kidney failure, extremes of body mass or the acutely ill. http://[email or web address] eGFR 42(L) >=60 mL/min/1. 73 m?? [facility] Comment: The eGFR was calculated using the CKD-EPI equation. As with all creatinine based estimates of kidney function, eGFR values calculated with the CKD-EPI equation are not accurate in patients with acute kidney failure, extremes of body mass or the acutely ill. http://[email or web address] Blood specimen (specimen) 03/06/2019 8:58 AM EDT 03/06/2019 9:03 AM EDT Narrative Resulting Agency Comment Spec In Lab Delisatatyana Chen CRYPTOLOGIC TECHNICIAN CHEMISTRY ORDERAB LES Performing Organization Address City/[facility]/ZIP Co de Phone Number [facility] [place] [address] * (ABNORMAL) pro-Brain Natriuretic Peptide (03/06/2019 8:58 AM EDT) NT-proBNP 1,392(H) <=125 pg/mL [facility] Blood specimen (specimen) 03/06/2019 8:58 AM EDT 03/06/2019 9:03 AM EDT Narrative Resulting Agency Comment Spec In Lab Delisa Lucrecia [place] CRYPTOLOGIC TECHNICIAN CHEMISTRY ORDERAB LES Performing Organization Address City/[facility]/ZIP Co de Phone Number [facility] [place] [address] documented in this encounter Visit Diagnoses Diagnosis Chronic diastolic heart failure S/P right coronary artery (RCA) stent placement 02/22/2019 in setting of NSTEMI Non-ST elevation myocardial infarction (NSTEMI) Acute myocardial infarction, subendocardial infarction, episode of care unspecified Essential hypertension Unspecified essential hypertension documented in this encounter Care Teams Veterans Service Representative Relationship Specialty Start Date End Date Bryant Watkins MD [address] [place] [address] PCP - General Internal Medicine 02/21/19 documented as of this encounter
--- OUTSIDE RECORDS SUMMARY | 2024-09-19 10:10 | XMS_ITS | Encounter Summary ---
Author Organization [facility] Address [facility] [place] [address] Care Team Providers Care Japanese Professor Name Role Phone Bryant Watkins MD Primary Care Provider [phone] Encounter Details Date Type Department Care Team (Late st Contact Info) Description 07/16/2019 10:00 AM EDT Office Visit Cardiology at [address] [address] Delisa Chen APRN [facility] [place] [address] [place] [address] Chronic diastolic heart failure; S/P right coronary artery (RCA) stent placement 02/22/2019 in setting of NSTEMI; Essential hypertension; Chronic bronchitis, unspecified chronic bronchitis type Social History Tobacco Use Types Packs/Day Years [...] Pulse 56 07/16/2019 9:21 AM EDT Temperature - - Respiratory Rate - - Oxygen Saturation 99% 07/16/2019 9:21 AM EDT Inhaled Oxygen Concentration - - Weight 99.9 kg (220 lb 3.2 oz) 07/16/2019 9:21 A M EDT Height 172.7 cm (5' 8) 07/16/2019 9:21 AM EDT Body Mass Index 33.48 07/16/2019 9:21 AM EDT documented in this encounter Progress Notes * Delisa Chen, FREIGHT CAR INSPECTOR - 07/16/2019 10:00 AM EDT Cardiomyopathy/Heart failure Clinic Follow up Visit. ID and CC: Paul Guzmán is a 68 y.o. male presenting to the HF clinic for follow-up regarding diastolic heart failure after recent hospitalization This is Mr. Harmon first visit to the [facility] [place] [place] [facility]. He was admitted [...] with a prerenal cause. Discharged on 02/26/2019 Last seen: . This was initial visit to the clinic.His BP was slightly elevated. He was asked to monitor his BP and bring readings to his PCP who he was seeing within 2 weeks. Interim events since hospital discharge: To ED at [facility] for difficulty breathing, COPD exacerbation Today: Breathing ok. SOB walking Parked in handicap parking, walked to front door and used a wheelchair from there SOB is the same Sleeping without PND or orthopnea. Sleeps flat with three pillows (chronic) Appetite is weight Weight stable 212-215 lb Denies LE edema. Denies abdominal distention Lightheadedness and dizziness when getting up too fast or bending. Hard for him to bend over due tobreathing and aches nad pains Endorses pre-syncope, but no syncope 2-3 times felt like chest is caving in and arms went numb. Lasted 1-2 minutes. Laying down help Denies chest pain or chest pressure or anginal equivalent No bleeding on Plavix Patient Active Problem List Diagnosis ??? Pulmonary [...] Outpatient Medications Medication Sig Dispense Refill ??? torsemide (DEMADEX) 10 mg Tablet Take 2 tablets by mouth daily. 3 ??? carvedilol (COREG) 12.5 mg Tablet Take [...] mouth every evening. 30 tablet 0 ??? amLODIPine (NORVASC) 10 [...] no Device n/a Physical Exam: Blood pressure 148/59, pulse 56, height 172.7 cm (5' 8), weight 99.9 kg (220 lb 3.2 oz), SpO2 99 %. General: WD, WN HEENT: No JVD, no HJR. Lungs: CTA, no wheezing. Cor: Bradycardia, RR, normal S1, S2. PMI not displaced. No murmur or gallop Abd: slightly distended, soft, non-tender Ext: No lower extremity edema Lab data: Recent Labs 07/16/19 0906 NA 141 K 4.0 CL 101 CO2 30 BUN 23* CREATININE 1.57* GLUCOSE 93 ProBNP Date Value Ref Range Status 07/16/2019 1,250 (H) <=125 pg/mL Final 03/06/2019 1,392 (H) <=125 pg/mL Final 02/26/2019 466 (H) <=125 pg/mL Final Lab Results Component [...] priority for the procedure was Urgent. The NCDR indication for the procedure was NSTE-ACS. LVEF [...] dose administered prior to arrival in the landscape laborer. Recommend continuing clopidogrel 75 mg PO daily [...] Assessment: 1. NSTEMI/ASCVD S/p ERASMO to prox RCA 02/22/2019. On Plavix and ASA (recommend 1 year) Continue BB and statin No chest pain. No NTG use 2. HTN On Amlodipine, Terazosin and Coreg BP today 148/59 Will see his PCP within 2 weeks 3. HFpEF HR well controlled BP 143/62 in clinic. Continue Torsemide 20 mg BP followed by PCP who he will see within 2 weeks. Encouraged to monitor his BP and record and bring his log to his PCP 4. CKD, stage 3 Cr today 1.57 Continue to monitor Cr with increase in Torsemide 5. 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 A review of the active management and working diagnosis(es) was conducted. 2. The patient's medication list was updated and new Rxs given as needed. 3. Question were answered regarding: importance of daily weights and low salt diet and s/s to prompt a call to HF team 4. The following labs or other testing advised: Daily BP monitoring. Record BP in log book. Will follow-up with PCP in 2 weeks 5. Heart Failure Clinic follow up scheduled for: 3 months or sooner if needed Delisa Chen APRN 07/16/2019 documented in this encounter Plan of Treatment Not on file documented as of this encounter Results * (ABNORMAL) Basic Metabolic Panel (non-fasting) (07/16/2019 9:06 AM EDT) Glucose 93 65 - 199 mg/dL [facility] Comment:Diabetes: >=200 mg/d L plus symptoms Blood Urea Nitrogen 23(H) 10 - 20 mg/dL [facility] Creatinine 1.57(H) 0.80 - 1.50 mg/dL [facility] Sodium 141 135 - 145 mmol/L [facility] Potassium 4.0 3.5 - 5.0 mmol/L [facility] Comment: Please note: ??Patients with WBC >100,000 may have falsely elevated Potassium levels. ??For accurate Potassium quantification in these patients send serum separator tube (gold top) for subsequent determinations. ??Contact the Clinical Chemistry Laboratory if there are any questions. Chloride 101 98 - 107 mmol/L [facility] Carbon Dioxide 30 22 - 31 mmol/L [facility] Anion Gap 10 5 - 15 mmol/L [facility] Calcium 9.8 8.5 - 10.5 mg/dL [facility] Est Glomerular Filtration Rate 45(L) >=60 mL/min/1. 73 m?? [facility] Comment: The eGFR was calculated using the CKD-EPI equation. As with all creatinine based estimates of kidney function, eGFR values calculated with the CKD-EPI equation are not accurate in patients with acute kidney failure, extremes of body mass or the acutely ill. [email or web address] eGFR 52(L) >=60 mL/min/1. 73 m?? [facility] Comment: The eGFR was calculated using the CKD-EPI equation. As with all creatinine based estimates of kidney function, eGFR values calculated with the CKD-EPI equation are not accurate in patients with acute kidney failure, extremes of body mass or the acutely ill. [email or web address] Blood specimen (specimen) 07/16/2019 9:06 AM EDT 07/16/2019 9:13 AM EDT Narrative Resulting Agency Comment Spec In Lab Delisa Chen FREIGHT CAR INSPECTOR CHEMISTRY ORDERAB LES Performing Organization Address City/[facility]/ZIP Co de Phone Number [facility] [place] [address] * (ABNORMAL) pro-Brain Natriuretic Peptide (07/16/2019 9:06 AM EDT) NT-proBNP 1,250(H) <=125 pg/mL [facility] Blood specimen (specimen) 07/16/2019 9:06 AM EDT 07/16/2019 9:13 AM EDT Narrative Resulting Agency Comment Spec In Lab Delisa Chen FREIGHT CAR INSPECTOR CHEMISTRY ORDERAB LES Performing Organization Address City/[facility]/ZIP Co de Phone Number [facility] [place] [address] documented in this encounter Visit Diagnoses Diagnosis Chronic diastolic heart failure S/P right coronary artery (RCA) stent placement 02/22/2019 in setting of NSTEMI Essential hypertension Unspecified essential hypertension Chronic bronchitis, unspecified chronic bronchitis type documented in this encounter Care Teams Japanese Professor Relationship Specialty Start Date End Date Bryant Watkins MD [address] [place] [address] PCP - General Internal Medicine 02/21/19 documented as of this encounter
--- OUTSIDE RECORDS SUMMARY | 2024-09-19 10:10 | XMS_ITS | Encounter Summary ---
[place] [address] Care Team Providers Care Hvac Sales Representative Name Role Phone Bryant Watkins MD Primary Care Provider [phone] Encounter Details Date Type Department Care Team (Latest Contact Info) Description 03/06/2019 9:20 AM EDT Laboratory Appointment Lab [address] [place] [phone] Chronic diastolic heart failure Social History Tobacco Use Types Packs/Day Years Used Date Smoking Tobacco: Former Cigarettes Q uit: 01/06/2016 Smokeless Tobacco: Never Sex and Gender Information Value Date Recorded Sex Assigned at Not on file Gender Identity Not on file Sexual Orientation Not on file documented as of this encounter Plan of Treatment Not on file documented as of this encounter Procedures Procedure Name Priority Date/Time Associated Diagnosis Comments PRO-BRAIN NATRIURETIC PEPTIDE STAT 03/06/2019 8:58 AM EDT Chronic diastolic heart failure BASIC METABOLIC PANEL STAT 03/06/2019 8:58 AM EDT Chronic diastolic heart failure documented in this encounter Results * (ABNORMAL) pro-Brain Natriuretic Peptide (03/06/2019 8:58 AM EDT) NT-proBNP 1,392(H) <=125 pg/mL [facility] Blood specimen (specimen) 03/06/2019 8:58 AM EDT 03/06/2019 9:03 AM EDT Narrative Resulting Agency Comment Spec In Lab Delisa Chen APRN CHEMISTRY ORDERAB LES [facility] [place] [address] * (ABNORMAL) Basic Metabolic Panel (non-fasting) (03/06/2019 8:58 AM EDT) Glucose 88 65 - 199 mg/dL [facility] Comment:Diabetes: >=200 mg/d L plus symptoms Blood Urea Nitrogen 27(H) 10 - 20 mg/dL [facility] Creatinine 1.88(H) 0.80 - 1.50 mg/dL [facility] Sodium 141 135 - 145 mmol/L [facility] Potassium 5.0 3.5 - 5.0 mmol/L [facility] Comment: Please note: ??Patients with WBC >100,000 may have falsely elevated Potassium levels. ??For accurate Potassium quantification in these patients send serum separator tube (gold top) for subsequent determinations. ??Contact the Clinical Chemistry Laboratory if there are any questions. Chloride 105 98 - 107 mmol/L [facility] Carbon Dioxide 26 22 - 31 mmol/L [facility] Anion Gap 10 5 - 15 mmol/L [facility] Calcium 9.3 8.5 - 10.5 mg/dL [facility] Est Glomerular Filtration Rate 36(L) >=60 mL/min/1. 73 m?? [facility] Comment: The eGFR was calculated using the CKD-EPI equation. As with all creatinine based estimates of kidney function, eGFR values calculated with the CKD-EPI equation are not accurate in patients with acute kidney failure, extremes of body mass or the acutely ill. [email or web address]/[email or web address] eGFR 42(L) >=60 mL/min/1. 73 m?? [facility] Comment: The eGFR was calculated using the CKD-EPI equation. As with all creatinine based estimates of kidney function, eGFR values calculated with the CKD-EPI equation are not accurate in patients with acute kidney failure, extremes of body mass or the acutely ill. [email or web address]/[email or web address] Blood specimen (specimen) 03/06/2019 8:58 AM EDT 03/06/2019 9:03 AM EDT Narrative Resulting Agency Comment Spec In Lab Delisa Chen PULLMAN CAR CLERK [place] [address] documented in this encounter Visit Diagnoses Diagnosis Chronic diastolic heart failure documented in this encounter Care Teams Hvac Sales Representative Relationship Specialty Start Date End Date Bryant Watkins MD [address] [place] [address] PCP - General Internal Medicine 02/21/19 documented as of this encounter
--- OUTSIDE RECORDS SUMMARY | 2024-09-19 10:10 | XMS_ITS | Encounter Summary ---
Author Organization [facility] [place] [address] Care Team Providers Care Black Pickler Name Role Phone Bryant Watkins MD Primary Care Provider [phone] Reason for Visit * Reason Onset Date Comments Follow-up 03/21/2019 HTN Encounter Details Date Type Department Care Team (Late st Contact Info) Description 03/21/2019 Telephone Cardiology at [address] [phone] Jacqui Villanueva RN Follow-up (HTN) Social History Tobacco Use Types Packs/Day Years Used Date Smoking Tobacco: Former Cigarettes Q uit: 01/06/2016 Smokeless Tobacco: Never Sex and Gender Information Value Date Recorded Sex Assigned at Not on file Gender Identity Not on file Sexual Orientation Not on file documented as of this encounter Miscellaneous Notes * Telephone Encounter - Jacqui Villanueva RN - 03/21/2019 2:48 PM EDT Message left at the home number listed requesting that the pt call the clinic with his BP readings from the past 2 weeks. Awaiting a call back. * Telephone Encounter - Jacqui Villanueva RN - 03/21/2019 2:48 PM EDT ----- Message from Flaco Sutherland RN sent at 03/07/2019 8:14 AM EDT ----- ----- Message ----- From: Delisa Chen APRN Sent: 03/06/2019 11:12 AM To: Jacqui Villanueva RN proBNP is elevated today, but Cr is down to 1.88. Dr. Watkins increased Torsemide to 20 mg daily yesterday. No changes today. Dr. Watkins, Gave pt a BP machine to check his BP as it was elevated today, 161/75 using the new machine. We will call him in 2 weeks to see how is BP is at home and adjust medications. documented in this encounter Plan of Treatment Not on file documented as of this encounter Visit Diagnoses Not on filedocumented in this encounter Care Teams Black Pickler Relationship Specialty Start Date End Date Bryant Watkins MD [address] [place] [address] PCP - General Internal Medicine 02/21/19 documented as of this encounter
--- OUTSIDE RECORDS SUMMARY | 2024-09-19 10:10 | XMS_ITS | Encounter Summary ---
Author Organization [facility] [address] Care Team Providers Care King Maker Name Role Phone Bryant Watkins MD Primary Care Provider [phone] Reason for Visit * Reason Onset Date Comments Follow-up 04/01/2019 HTN - BP checks Encounter Details Date Type Department Care Team (Late st Contact Info) Description 04/01/2019 Telephone Cardiology at [address] [phone] Jacqui Villanueva RN Follow-up (HTN - BP checks) Social History Tobacco Use Types Packs/Day Years Used Date Smoking Tobacco: Former Cigarettes Q uit: 01/06/2016 Smokeless Tobacco: Never Sex and Gender Information Value Date Recorded Sex Assigned at Not on file Gender Identity Not on file Sexual Orientation Not on file documented as of this encounter Miscellaneous Notes * Telephone Encounter - Jacqui Villanueva RN - 04/02/2019 3:06 PM EDT Pt contacted with the following message from LUIS Chen: OK. No changes to his meds. Pt to call the HF team with any questions/concerns as needed. * Telephone Encounter - Jacqui Villanueva RN - 04/01/2019 3:04 PM EDT Pt calling with the last week of BP readings: Range 140-154/64-70, HR 50-53 (does not have a device). Review of meds has him taking them as listed. His daily weights are between 215-217 lbs. His breathing is good (occasiona bad day but is mostly good). No swelling in his legs or abd. * Telephone Encounter - Jacqui Villanueva RN - 04/01/2019 3:03 PM EDT ----- Message from Flaco Sutherland [...] on filedocumented in this encounter Care Teams King Maker Relationship Specialty Start Date End Date Bryant Watkins MD [address] [place] [address] PCP - General Internal Medicine 02/21/19 documented as of this encounter
--- OUTSIDE RECORDS SUMMARY | 2024-09-19 10:10 | XMS_ITS | Encounter Summary ---
[place] [address] Care Team Providers Care Oracle Solutions Architect Name Role Phone Bryant Watkins MD Primary Care Provider [phone] Encounter Details Date Type Department Care Team (Latest Contact Info) Description 07/16/2019 9:00 AM EDT Laboratory Appointment Lab [address] [place] [phone] Chronic diastolic heart failure Social History Tobacco [...] Name Priority Date/Time Associated Diagnosis Comments HC PROBNP STAT 07/16/2019 9:06 AM EDT Chronic diastolic heart failure HC VENIPUNCTURE STAT 07/16/2019 9:06 AM EDT Chronic diastolic heart failure documented in this encounter Results * (ABNORMAL) pro-Brain Natriuretic Peptide (07/16/2019 9:06 AM EDT) NT-proBNP 1,250(H) <=125 pg/mL [facility] Blood specimen (specimen) 07/16/2019 9:06 AM EDT 07/16/2019 9:13 AM EDT Narrative Resulting Agency Comment Spec In Lab Delisa Chen APRN CHEMISTRY ORDERAB LES [facility] [place] [address] * (ABNORMAL) Basic Metabolic Panel (non-fasting) (07/16/2019 9:06 AM EDT) Glucose 93 65 - 199 mg/dL [facility] Comment:Diabetes: >=200 mg/d L plus symptoms Blood Urea Nitrogen 23(H) 10 - 20 mg/dL [facility] Creatinine 1.57(H) 0.80 - 1.50 mg/dL [facility] Sodium 141 135 - 145 mmol/L [facility] Potassium 4.0 3.5 - 5.0 mmol/L [facility] Comment: Please note: ??Patients with WBC >100,000 may have falsely elevated Potassium levels. ??For accurate Potassium quantification in these patients send serum separator tube (gold top) for subsequent determinations. ??Contact the Clinical Chemistry Laboratory if there are any questions. Chloride 101 98 - 107 mmol/L [facility] Carbon Dioxide 30 22 - 31 mmol/L [facility] Anion Gap 10 5 - 15 mmol/L [facility] Calcium 9.8 8.5 - 10.5 mg/dL [facility] Est Glomerular Filtration Rate 45(L) >=60 mL/min/1. 73 m?? [facility] Comment: The eGFR was calculated using the CKD-EPI equation. As with all creatinine based estimates of kidney function, eGFR values calculated with the CKD-EPI equation are not accurate in patients with acute kidney failure, extremes of body mass or the acutely ill. [email or web address]://[employer]/[email or web address] eGFR 52(L) >=60 mL/min/1. 73 m?? [facility] Comment: The eGFR was calculated using the CKD-EPI equation. As with all creatinine based estimates of kidney function, eGFR values calculated with the CKD-EPI equation are not accurate in patients with acute kidney failure, extremes of body mass or the acutely ill. [email or web address]/[email or web address] Blood specimen (specimen) 07/16/2019 9:06 AM EDT 07/16/2019 9:13 AM EDT Narrative Resulting Agency Comment Spec In Lab Delisa Chen EDUCATION GENERAL MANAGER CHEMISTRY ORDERAB LES [facility] [place] [address] documented in this encounter Visit Diagnoses Diagnosis Chronic diastolic heart failure documented in this encounter Care Teams Oracle Solutions Architect Relationship Specialty Start Date End Date Bryant Watkins MD [address] [place] [address] PCP - General Internal Medicine 02/21/19 documented as of this encounter
--- OUTSIDE RECORDS SUMMARY | 2024-09-19 10:11 | XMS_ITS | Encounter Summary ---
Author Organization [facility] [place] [address] Care Team Providers Care Visitor Services Associate Name Role Phone Bryant Watkins MD Primary Care Provider [phone] Encounter Details Date Type Department Care Team (Late st Contact Info) Description 02/21/2019 [place] [phone] Social History Tobacco Use Types Packs/Day Years Used Date Smoking Tobacco: Never Assessed Sex and Gender Information Value Date Recorded Sex Assigned at Not on file Gender Identity Not on file Sexual Orientation Not on file documented as of this encounter Plan of Treatment Not on file documented as of this encounter Procedures Procedure Name Priority Date/Time Associated Diagnosis Comments ECG SCAN Routine 02/21/2019 documented in this encounter Results * Scan Doc: ECG (02/21/2019) Historical Provider MEDIA MGR SCAN EX T ORDR/RSLT documented in this encounter Visit Diagnoses Not on filedocumented in this encounter Care Teams Visitor Services Associate Relationship Specialty Start Date End Date Bryant Watkins MD [address] [place] [address] PCP - General Internal Medicine 02/21/19 documented as of this encounter
--- OUTSIDE RECORDS SUMMARY | 2024-09-19 10:11 | XMS_ITS | Encounter Summary ---
Author Organization [facility] [place] [address] Care Team Providers Care Boss Dyer Name Role Phone Bryant Watkins MD Primary Care Provider [phone] Reason for Visit * Auth/Cert Specialty Diagnoses / Procedures Referred By Kyle joe Referred To Contact Diagnoses NSTEMI Procedures URGENT IPI Referral ID Status Reason Start Date Expiration Date Visits Re quested Visits Authorized [id number] 1 1 Encounter Details Date Type Department Care Team (Latest Contact Info) Description 02/21/2019 11:33 AM EDT - 02/26/2019 12:44 PM EDT Hospital Encounter [facility] [address] Ktalyn Avila MD [facility] [place] [address] Hemant Diaz MD [facility] [place] [address] Chronic systolic congestive heart failure; Non-ST elevation myocardial infarction (NSTEMI) Discharge Disposition: Home Social History Tobacco Use Types Packs/Day Years Used Date Smoking Tobacco: Never Assessed Sex and Gender Information Value Date Recorded Sex Assigned at Not on file Gender Identity Not on file Sexual Orientation Not on file documented as of this encounter Last Filed Vital Signs Vital Sign Reading Time Taken Comments Blood Pressure 110/56 02/26/2019 8:00 AM EDT Pulse 58 02/26/2019 8:00 AM EDT Temperature 36.9 ??C (98.4 ??F) 02/26/2019 7:43 AM ED T Respiratory Rate 18 02/26/2019 7:43 AM EDT Oxygen Saturation 96% 02/26/2019 8:00 AM EDT Inhaled Oxygen Concentration - - Weight 100.1 kg (220 lb 10.9 oz) 02/26/2019 6:34 AM EDT Height 172.7 cm (5' 8) 02/21/2019 11:5 0 AM EDT Body Mass Index 33.55 02/21/2019 11:50 AM EDT documented in this encounter Discharge Summaries * Fabiola Coronado MD - 02/26/2019 12:44 PM EDT Discharge Summary Patient Name: Vaibhav Guzmán Patient Age: 68 y.o. Language: Beninese Race: White Ethnicity: Not nor Admit date: 02/21/2019 Discharge date and time: 02/21/2019 Attending Physician: Katlyn Avila MD Discharge Physician: Hemant Diaz MD Follow-up Recommendations for Providers: 1. Recommend BMP check at follow-up appointments, with particular attention to creatinine (had CARLOS MANUEL during hospitalization) and potassium (discharged on torsemide). 2. He was discharged on torsemide 10 mg daily, decreased from previous home dose of torsemide 20 mgdaily. 10 mg was chosen because he appeared to be euvolemic/dry and had an CARLOS MANUEL (possibly contrast induced but could have been from overdiuresis). Please monitor weight and adjust dose of diuretic as necessary. 3. He was started on losartan during the hospitalization, which was later held in the setting of CARLOS MANUEL. Consider starting ISHAN-I/ARB for heart failure as well as as an additional antihypertensive particularly if his blood pressures are poorly controlled. 4. For blood pressure control, he was initially managed with nitroglycerin drip, as well as home amlodipine, and terazosin. Carvedilol was added and nitroglycerin weaned off. He was bradycardic and orthostatic on 25 mg BID dosing of carvedilol, so it was reduced to 12.5 mg BID. He was discharged with instructions to not take metoprolol and minoxidil. Please adjust blood pressure medication regimen as appropriate. 5. Recommend Plavix for 12 months and continuation of aspirin 81 mg. 6. Recommend outpatient Nephrology follow-up for CKD. Discharge Diagnoses (Hospital Problems) and Secondary Diagnoses (Chronic Problems): Active Hospital Problems Diagnosis ??? 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 S/P right coronary artery (RCA) stent placement 02/22/2019 in setting of NSTEMI ??? Acute diastolic heart failure ??? Non-ST elevation myocardial infarction (NSTEMI) ??? Hypertension ??? COPD (chronic obstructive pulmonary disease) ??? Acute renal failure superimposed on stage 3 chronic kidney disease Resolved Hospital Problems No resolved problems to display. There are no active non-hospital problems to display for this patient. Operations/Major Procedures: Operations: Procedure(s): CARDIAC CATHETERIZATION 02/22/2019 Other Major Procedures: none History of Presentation: History of Present Illness: Vaibhav Guzmán is a 68 y.o. male w/ a h/o COPD, HTN, CKD (baseline Cr 1.6), and prior tobaccoalcohol use presenting with worsening sob and chest pain. ?? Presented to the ED 2 days ago and treated for COPD exacerbation with 10 days of prednisone and doxycycline, currently only taken 2 days worth of doses. Afterwards was feeling a little better in terms of breathing but noted it was difficult for him to lay flat comfortably. Had some chest pain that reminded him of heartburn when laying flat, no radiation at the time, has this type of pain almost every night. Also endorsed some substernal chest pressure at rest on Monday, resolved on it's own, no pain since then. Has never had pain like this before but was mild in nature. ?? This morning got up from bed and notes his breathing was much worse. Could not catch his breathe, no chest pain at the time. Returned to the ED and was hypoxic to 88% and CXR showing pulmonary edema,exam with lower extremity edema. EKG showing some lateral STD. PCOUS showing some LV dysfunction. Given 40mg IV lasix for fluid overload now on 2L NC and transferred for ongoing management. ?? OSH Labs: WBC 22 Plt 441 Na 141 K 3.5 Cr 1.9 Tn 0.61 proBNP 4000 Hospital Course: #NSTEMI s/p ERASMO to proximal RCA: He was noted to have subtle ST depressions on EKG. Troponin peakedat 0.22. Coronary angiogram showed a 75% stenosis of the proximal RCA, and ERASMO was placed. He was continued on aspirin and Plavix. #Acute Diastolic Heart Failure: He had signs of heart failure with dyspnea on exertion, elevated JVP, lower extremity edema, CXR showing pulmonary edema, and elevated proBNP. LVEDP was 23 on cardiac catheterization. He was diuresed with IV Lasix and one dose of metolazone. Diuresis was held when hedeveloped CARLOS MANUEL. He was discharged on a low dose of torsemide, with plan for close follow-up. ProBNP downtrended from 5843 on admission to 466 on discharge. His weight did not change much during the admission (remained at about 220 lbs), however lower extremity edema did improve and he had symptomatic improvement with regard to dyspnea. He appeared euvolemic on discharge. #Hypertension: He was quite hypertensive on admission with difficult to manage blood pressures, requiring nitroglycerin drip on top of home amlodipine and terazosin. Metoprolol was initially held given acute heart failure. Later on, carvedilol was added for the Beta-scottie effect (NSTEMI) as well as the antihypertensive effect. This was increased from 12.5 mg twice a day to 25 mg twice a day, however he had bradycardia and orthostatic lightheadedness, so it was decreased to 12.5 mg twice a day. He tolerated this dose without any symptoms. Losartan was added during the hospitalization, however this was later held when he developed an CARLOS MANUEL. #Acute Renal Failure on CKD 3: Creatinine on admission was 1.91. On hospital day (HD) 2, this increased to 2.27. This was about 48 hours post-cath. He had also received IV Lasix 60 mg x2 and 80 mg x2, with 2.5 mg of metolazone, in the 24 hours prior, as he was poorly responsive to diuresis. Losartan was also started that morning. Creatinine uptrended to 3.17 on HD 3. A gentle fluid bolus was given. Creatinine downtrended to 2.06 on day of discharge. ARF was felt to be due to contrast nephropathy vs. prerenal azotemia from overdiuresis. FENa was consistent with a prerenal cause. Nephrotoxic medications were held. Nephrology was consulted. He will be set up with outpatient Nephrology follow-up for his CKD. #Pulmonary HTN due to LV diastolic dysfunction: LVEDP was elevated at 23, indicating high L-sided pressures. PA diastolic pressure was 20, and PCWP was 19 (diastolic pulmonary gradient = 1). Thus pulmonary HTN appears to be WHO Group 2, not Group 3. PVR was calculated to be 2.64, which is not consistent with pulmonary arterial HTN (WHO Group 1). Vital Signs at Discharge: BP: 110/56, Heart Rate: 58, Temp: 36.9 ??C (98.4 ??F), Resp: 18, BMI (Calculated): 33.58 Height: 172.7 cm (5' 8) (02/21/19 1150) Weight: 100.1 kg (220 lb 10.9 oz) (02/26/19 0634) Functional and Cognitive Status: Fully ambulatory, able to perform activities independently, alert and oriented Important Studies and Lab Data: Labs: Last 3 wbc, hgb, hct plt Recent Labs 02/26/1945802/25/193 02/24/19 043 WBC 11.4* 12.2* 12.4* HGB 11.0* 11.0* 11.1* HCT 35.1* 34.7* 35.7* PLATELET 355 339 343 Last 3 Lytes Recent Labs 02/26/1945802/25/19 0433 02/24/19 1701 NA 135 136 133* K 3.6 3.9 4.5 CL 97* 97* 93* CO2 24 21* 22 BUN 63* 66* 65* CREATININE 2.06* 2.61* 3.17* Last Ca, Mg, Phos Recent Labs 02/26/19458 CALCIUM 9.0 Last 3 ProBNP, Trop, CK Recent Labs 02/26/1945802/24/19 0436 02/23/19 0403 02/21/19 2339 02/21/19 1745 02/21/19 1200 CK -- -- -- 133 185 214* TROPONINT -- -- -- 0.12* 0.15* 0.22* PROBNP 466* 816* 1,461* -- -- 5,843* Last 3 TFT Recent Labs 02/21/19 1200 TSH 0.76 Last 3 HgbA1C Recent Labs 02/21/19 1200 HA1C 5.3 Imaging/Studies: Coronary Angiography (02/22/19): Dominance: Co-dominant Left Main The left main [...] of the ramus. The ramus was small. Right heart catheterization (02/22/19): Right Heart Pressures Hemodynamics: Syst Diast EDP a v m RA 16 13 11 RV 55 14 PA 62 20 36 PCW 20 19 19 Hemodynamic Profile: Profile 1 CO 6.43 CI 3.03 TSR 1,443 SVR 1,306 TPR 448 PVR 212 Technique Estimated Herb LVEDP 23 TTE (02/21/19): SUMMARY: ?? 1. The left ventricular chamber [...] are no prior studies available for comparison. No WMA Chest X-ray (02/21/19) at [facility]: Impression: mild to moderate pulmonary vascular congestion Pending Studies and Lab Data: none Discharge Conditions/Prognosis: Upon discharge the patient is hemodynamically stable, afebrile, fully ambulatory without requiring supplemental oxygen, holding down food/drink, and pain free. Discharge to: Home Updated Allergies/ADRs: No Known Allergies Immunizations Given this Hospitalization: There is no immunization history on file for this patient. Discharge Medications: Your Medications New Medications Dose Details carvedilol 12.5 mg Tab Commonly known as: COREG Take 1 tablet by mouth 2 times daily (with meals). 12.5 mg Quantity: 60 tablet Refills: 0 clopidogrel 75 mg Tab Commonly known as: PLAVIX Take 1 tablet by mouth daily. 75 mg Quantity: 30 tablet Refills: 0 nitroGLYcerin 0.4 mg Subl Commonly known as: NITROSTAT Place 1 tablet under the tongue every 5 minutes as needed for Chest pain. 0.4 mg Quantity: 30 tablet Refills: 0 pantoprazole 40 mg Tbec Commonly known as: PROTONIX Take 1 tablet by mouth daily. Start taking on: 02/27/2019 40 mg Quantity: 30 tablet Refills: 0 terazosin 1 mg Cap Commonly known as: HYTRIN Take 1 capsule by mouth nightly. 1 mg Quantity: 30 capsule Refills: 0 Continued medications with new dosing Dose Details rosuvastatin 40 mg Tab Commonly known as: CRESTOR Take 1 tablet by mouth every evening. What changed: ?? medication strength ?? how much to take ?? when to take this 40 mg Quantity: 30 tablet Refills: 0 torsemide 10 mg Tab Commonly known as: DEMADEX Take 1 tablet by mouth daily. What changed: ?? medication strength ?? how much to take 10 mg Quantity: 30 tablet Refills: 0 Continued medications, unchanged Dose Details amLODIPine 10 mg Tab Commonly known as: NORVASC Take 10 mg by mouth daily. 10 mg Refills: 0 aspirin 81 mg Chew Take 81 mg by mouth daily. 81 mg Refills: 0 BEVESPI AEROSPHERE 9-4.8 mcg Hfaa Generic drug: glycopyrrolate-formoterol Refills: 0 ipratropium-albuterol 0.5 mg-3 mg(2.5 mg base)/3 mL Nebu Commonly known as: DUONEB INHALE 1 VIAL VIA NEBULIZER EVERY 6 HOURS Refills: 0 nicotine 21 mg/24 hr Pt24 Commonly known as: NICODERM CQ APPLY TO HAIRLESS AREA DAILY AND ROTATE SKIN SITES Refills: 0 polyethylene glycol 17 gram Pwpk Commonly known as: MIRALAX Take 17 g by mouth 2 times daily as needed. 17 g Refills: 0 STOPPED Medications metoprolol succinate 50 mg Tablet sr Commonly known as: TOPROL-XL minoxidil 2.5 mg Tab Commonly known as: LONITEN Smoking Status at Discharge: Social History Tobacco Use Smoking Status Not on file Instructions Given to Patient at Discharge: Patient Instructions Patient Instructions on Discharge to Home Cris (02/26/19): - Take Crestor 40 mg - Take Carvedilol 12.5 mg Starting tomorrow take medications as listed in this packet.. Why you were hospitalized: You had a heart attack, which was caused by a blockage in one of your heart arteries. This was fixed with a stent that was placed during a cardiac catheretization. Because you had this procedure, youshouldn't lift anything greater than 10 lbs for the next week and nothing greater than 20 lbs for 2 weeks. After that time you may go back to regular activity and work. Call your doctor if your Right wrist pain gets worse, or you develop swelling or redness in that area. Also, call your doctor if you develop sudden chest pain or shortness of breath, especially chestpain that does not go away with nitroglycerin. It is important that you take your aspirin 81mg daily forever and clopidogrel 75mg daily for at least 1 year. Do not miss any doses of these medications! You were also hospitalized for worsening heart failure, which was treated by diuresis (removing fluid). New Medications: Clopidogrel (plavix): this is a second platelet inhibitor that will help prevent clot build up in the stent that was placed. It is very important that you take this medication every day at least forone year to help keep your stent open. Follow up with your doctor before stopping this medication. Carvedilol (toprol): this is a beta scottie, that helps protect your heart. This also helps with blood pressure. Take this every day. Nitroglycerin: this is a medication that can be placed under your tongue as needed for chest pain. If you experience chest pain, especially that similar to what you had before you were admitted to the hospital, sit down and place one tab under your tongue (it may make you dizzy, so sitting down before taking this is safest). If your chest pain does not improve, call your doctor. Pantoprazole: this is a proton pump inhibitor that protects your stomach from irritation and bleeding that may occur which you are taking two platelet inhibitors. It is recommended you continue to take this medication at least as long as you are taking aspirin and clopidogrel together. Medication Changes: Rosuvastatin (crestor): this is a cholesterol-lowering medication that helps prevent build up of plaque in your arteries. Take this every evening. Increase from 10 mg to 40 mg every evening. Torsemide- this is a diuretic that helps to remove fluid. Decrease from 20 mg to 10 mg daily. Metoprolol- stop taking Minoxidil- stop taking, have primary care provider determine future blood pressure medication regimen. Home Medications: Aspirin: this is a platelet inhibitor that will help prevent clot build up in your arteries, as well as in the stent that was placed. Continue taking 81mg daily indefinitely. Terazosin: continue taking 1 mg nightly. Continue other home medications. When to call your doctor: - Chest pain, worsening shortness of breath, fatigue with usual exertion, or new rest/night time symptoms. - Weigh yourself daily and record; if you note an increase of more than 2-3 pounds in 2 days, or 5 pounds over a week, contact your health care provider. - If you become short of breath, cannot lie down to sleep, or have swelling in your legs/ankles or abdomen, contact your health care provider. - Call if you have reduced urination during the day or increased urination at night. - Call for signs of increased wound drainage, redness, swelling, or increased pain at the site of your cardiac cath. - Call if you develop a temp >100.5 If you have non-emergent questions between now and the time of your follow up appointments: During 8am-5pm Monday through Monday call [phone] to speak with a nurse in the cardiology clinic All other times call [phone] and ask to speak to the direct chill casting operator production support engineer. Activity level: - No heavy lifting (more than five pounds) for 48 hours; no more than 10 pounds for one week. - You may return to work in 1 week. Use common sense. Don't exhaust yourself. - No hunting, skiing, jogging, snow shoveling, snowmobiling, lawn mowing, swimming, golf or tennis until after your return appointment with your family doctor. - Do not ride motorcycles, tractors or horses until cleared by your doctor. Diet: - Heart healthy: low salt, low fat, low concentrated sweets. Remember to avoid added salt, canned foods, processed foods (ie hot dogs, sausage, cold meats), and foods naturally high in salt, such as potato chips or pizza. Driving: - Per your routine. Do not drive if you feel dizzy, light headed, or are taking narcotic medications (ie/ Oxycodone, Morphine, Dilaudid, etc). Shower/Bath: - After cardiac catheterization (done on 02/22), you may not sit in water for 5 days (tub bath, hot tub or pool). Exercise: - Exercise 5-7 days per week as tolerated with gradual increase to 30 minutes per day. Smoking cessation: - If you are currently a smoker, you are strongly urged to stop smoking! Smoking increases the severity and incidence of heart disease, and is a risk factor for cancer and emphysema. Your health careprovider can provide specific measures to assist you, including nicotine supplements, anti-anxiety meds, and support groups in your community. Follow up Appointments: PCP: Bryant Watkins MD at [phone] on 03/05 at 11:45 a.m. Future Appointments Date Time Provider Department [place] 03/06/2019 9:20 AM LAB, THREE L [facility] 03/06/2019 10:20 AM Delisa Chen APRN [facility] 03/27/2019 11:00 AM Mckay Guevara MD [facility] Your Inpatient Doctor(s) at [facility]: Hemant Diaz MD - Attending physician Reta Benson MD - a p supervisor Surekha Baker MD - Resident physician Fabiola Coronado MD - Civil Engineering Technician physician Your Primary Care Provider: Bryant Watkins MD [address] [facility] [id number] For questions regarding issues relating to your hospitalization on the Cardiology Service, please contact your inpatient physician through the [facility] Plant Propagator [phone]. Issues after hours and on weekends will be handled by the Hospitalist staff on-call. General Instructions None Future Appointments and Orders Future Appointments and Orders Future Appointments Provider Department Dept Phone 03/06/2019 9:20 AM TERRENCE, OCHOA L Lab [facility] Arrive at: [facility] 03/06/2019 10:20 AM Delisa Chen APRN Cardiology at [place] Arrive at: [facility] [phone] 03/27/2019 11:00 AM Reta Benson MD; Mckay Guevara MD Cardiology at [place] Arrive at: [facility] Area [phone] Discharge References/Attachments None documented in this encounter Discharge Instructions * Patient Instructions* Fabiola Coronado MD - 02/26/2019 11:55 AM EDT Patient Instructions on Discharge to Home Cris (02/26/19): - Take Crestor 40 mg - Take Carvedilol 12.5 mg Starting tomorrow take medications as listed in this packet.. Why you were hospitalized: You had a heart attack, which was caused by a blockage in one of your heart arteries. This was fixed with a stent that was placed during a cardiac catheretization. Because you had this procedure, youshouldn't lift anything greater than 10 lbs for the next week and nothing greater than 20 lbs for 2 weeks. After that time you may go back to regular activity and work. Call your doctor if your Right wrist pain gets worse, or you develop swelling or redness in that area. Also, call your doctor if you develop sudden chest pain or shortness of breath, especially chestpain that does not go away with nitroglycerin. It is important that you take your aspirin 81mg daily forever and clopidogrel 75mg daily for at least 1 year. Do not miss any doses of these medications! You were also hospitalized for worsening heart failure, which was treated by diuresis (removing fluid). New Medications: Clopidogrel (plavix): this is a second platelet inhibitor that will help prevent clot build up in the stent that was placed. It is very important that you take this medication every day at least forone year to help keep your stent open. Follow up with your doctor before stopping this medication. Carvedilol (toprol): this is a beta scottie, that helps protect your heart. This also helps with blood pressure. Take this every day. Nitroglycerin: this is a medication that can be placed under your tongue as needed for chest pain. If you experience chest pain, especially that similar to what you had before you were admitted to the hospital, sit down and place one tab under your tongue (it may make you dizzy, so sitting down before taking this is safest). If your chest pain does not improve, call your doctor. Pantoprazole: this is a proton pump inhibitor that protects your stomach from irritation and bleeding that may occur which you are taking two platelet inhibitors. It is recommended you continue to take this medication at least as long as you are taking aspirin and clopidogrel together. Medication Changes: Rosuvastatin (crestor): this is a cholesterol-lowering medication that helps prevent build up of plaque in your arteries. Take this every evening. Increase from 10 mg to 40 mg every evening. Torsemide- this is a diuretic that helps to remove fluid. Decrease from 20 mg to 10 mg daily. Metoprolol- stop taking Minoxidil- stop taking, have primary care provider determine future blood pressure medication regimen. Home Medications: Aspirin: this is a platelet inhibitor that will help prevent clot build up in your arteries, as well as in the stent that was placed. Continue taking 81mg daily indefinitely. Terazosin: continue taking 1 mg nightly. Continue other home medications. When to call your doctor: - Chest pain, worsening shortness of breath, fatigue with usual exertion, or new rest/night time symptoms. - Weigh yourself daily and record; if you note an increase of more than 2-3 pounds in 2 days, or 5 pounds over a week, contact your health care provider. - If you become short of breath, cannot lie down to sleep, or have swelling in your legs/ankles or abdomen, contact your health care provider. - Call if you have reduced urination during the day or increased urination at night. - Call for signs of increased wound drainage, redness, swelling, or increased pain at the site of your cardiac cath. - Call if you develop a temp >100.5 If you have non-emergent questions between now and the time of your follow up appointments: During 8am-5pm Monday through Monday call [phone] to speak with a nurse in the cardiology clinic All other times call [phone] and ask to speak to the direct chill casting operator production support engineer. Activity level: - No heavy lifting (more than five pounds) for 48 hours; no more than 10 pounds for one week. - You may return to work in 1 week. Use common sense. Don't exhaust yourself. - No hunting, skiing, jogging, snow shoveling, snowmobiling, lawn mowing, swimming, golf or tennis until after your return appointment with your family doctor. - Do not ride motorcycles, tractors or horses until cleared by your doctor. Diet: - Heart healthy: low salt, low fat, low concentrated sweets. Remember to avoid added salt, canned foods, processed foods (ie hot dogs, sausage, cold meats), and foods naturally high in salt, such as potato chips or pizza. Driving: - Per your routine. Do not drive if you feel dizzy, light headed, or are taking narcotic medications (ie/ Oxycodone, Morphine, Dilaudid, etc). Shower/Bath: - After cardiac catheterization (done on 02/22), you may not sit in water for 5 days (tub bath, hot tub or pool). Exercise: - Exercise 5-7 days per week as tolerated with gradual increase to 30 minutes per day. Smoking cessation: - If you are currently a smoker, you are strongly urged to stop smoking! Smoking increases the severity and incidence of heart disease, and is a risk factor for cancer and emphysema. Your health careprovider can provide specific measures to assist you, including nicotine supplements, anti-anxiety meds, and support groups in your community. Follow up Appointments: PCP: Bryant Watkins MD at [phone] on 03/05 at 11:45 a.m. Future Appointments Date Time Provider Department Center 03/06/2019 9:20 AM LAB, [facility] L [facility] 03/06/2019 10:20 AM Delisa Chen APRN [facility] 03/27/2019 11:00 AM Mckay Guevara MD [facility] Your Inpatient Doctor(s) at [facility]: Hemant Diaz MD - Attending physician Reta Benson MD - a p supervisor Surekha Baker MD - Resident physician Fabiola Coronado MD - Civil Engineering Technician physician Your Primary Care Provider: Bryant Watkins MD [address] / [place] [address] For questions regarding issues relating to your hospitalization on the Cardiology Service, please contact your inpatient physician through the [facility] [phone]. Issues after hours and on weekends will be handled by the Hospitalist staff on-call. documented in this encounter Medications at Time of Discharge Medication Sig Dispensed Refills Start Date End Date amLODIPine (NORVASC) 10 mg Tablet Take 10 mg by mouth daily. aspirin 81 mg Tablet, Chewable Take 81 mg by mouth daily. polyethylene glycol (MIRALAX) 17 gram Powder in Packet Take 17 g by mouth 2 times daily as needed. carvedilol (COREG) 12.5 mg Tablet Take 1 tablet by mouth 2 times daily (with meals). 60 tablet 02/26/2019 clopidogrel (PLAVIX) 75 mg Tablet Take 1 tablet by mouth daily. 30 tablet 02/26/2019 nitroGLYcerin (NITROSTAT) 0.4 mg Tablet, Sublingual Place 1 tablet under the tongue every 5 minutes as needed for Chest pain. 30 tablet 02/26/2019 rosuvastatin (CRESTOR) 40 mg Tablet Take 1 tablet by mouth every evening. 30 tablet 02/26/2019 BEVESPI AEROSPHERE 9-4.8 mcg HFA Aerosol Inhaler 02/19/2019 ipratropium-albuterol (DUONEB) 0.5 mg-3 mg(2.5 mg base)/3 mL Solution for Nebulization INHALE 1 VIAL VIA NEBULIZER EVERY 6 HOURS 0 02/19/2019 terazosin (HYTRIN) 1 mg Capsule Take 1 capsule by mouth nightly. 30 capsule 02/26/2019 pantoprazole (PROTONIX) 40 mg Tablet, Delayed Release (E.C.) Take 1 tablet by mouth daily. 30 tablet 02/27/2019 torsemide (DEMADEX) 10 mg Tablet Take 1 tablet by mouth daily. 30 tablet 02/26/2019 03/06/2019 nicotine (NICODERM CQ) 21 mg/24 hr Patch 24 hr APPLY TO HAIRLESS AREA DAILY AND ROTATE SKIN SITES 0 01/17/2019 03/06/2019 documented as of this encounter Progress Notes * Dilan Hill MD - 02/26/2019 7:30 AM EDT NEPHROLOGY PROGRESS NOTE PATIENT: Vaibhav Guzmán : 1950 REASON FOR CONSULTATION: Non-oliguric CARLOS MANUEL ID: This is a 68yo male with a history of HTN, HLD, alcohol abuse (quit 2017), and 50 pack-year smoking for whom we are consulted for non-oliguric CARLOS MANUEL. Patient was admitted on 02/21 for NSTEMI s/p cardiac cath with ERASMO to the RCA on 02/22. S: No overnight events. Renal function improving. Patient reports feeling well this morning. O: PHYSICAL EXAM: Last value Range last 24 hrs Temperature Temp: 36.8 ??C (98.2 ??F) Temp: [36.5 ??C (97.7 ??F)-37 ??C (98.6 ??F)] Heart Rate Heart Rate: 59 Heart Rate: [53-64] Blood Pressure BP: 131/64 BP: (131-155)/(50-66) Respiratory Rate Resp: 18 Resp: [18-22] SpO2 SpO2: 98 % SpO2: [92 %-98 %] Appearance - Awake and alert. NAD. Obese. Skin - No exanthem or wound. HEENT - No sclera icterus. Moist oral mucosa. Chest - Lungs CTA. Heart - S1 and S2. RRR. No MRG. No JVD. Abd - Soft. Distended. Non-tender. Normal BS. - No flank tenderness. Ext - Warm extremities. No cyanosis. 1+ BLE edema. Neuro - Normal speech. Intake/Output Summary (Last 24 hours) at 02/26/2019 0730 Last data filed at 02/26/2019 0552 Gross per 24 hour Intake 776 ml Output 2425 ml Net -1649 ml Labs: CBC: Recent Labs 02/26/19 0459 02/25/19 0433 04/14/19 0436 WBC 11.4* 12.2* 12.4* HGB 11.0* 11.0* 11.1* PLATELET 355 339 343 Chemistry: Recent Labs 02/26/1945802/25/1943202/24/19 170 NA 135 136 133* K 3.6 3.9 4.5 CL 97* 97* 93* CO2 24 21* 22 BUN 63* 66* 65* CREATININE 2.06* 2.61* 3.17* GLUCOSE 108 105 91 Recent Labs 02/26/1945802/25/1943202/24/19170002/24/19435 CALCIUM 9.0 8.5 8.5 9.0 MAGNESIUM 1.16* 1.09* -- 1.04 LFT's: No results for input(s): BILITOT, BILIDIR, ALBUMIN, ALKPHOS, ALT, AST in the last 7068 hours. IMPRESSION/ RECOMMENDATIONS: 1. Non-oliguric CARLOS MANUEL - Likely CHERY. Improving. No renal imaging available. Baseline renal function unknown. May have underlying CKD. - No indication for OYSTER OPENER. Continue conservative management. - Adjust Torsemide dose 10mg daily vs 20mg daily (home dose) to aim for net negative daily fluid balance of 1L. Low-Na+ diet. - Continue to hold ACEi/ARB until we have stable Cr. - Avoid NSAIDs and other nephrotoxins. - Monitor Is and Os. - Daily weight. We will make a follow-up appointment in our clinic. We will sign off at this time. Please call withany questions. Chintan Josue MD Nephrology Fellow Renal Attending: The patient was examined together with the renal fellow and I agree with the above note which accurately reflects our findings and assessment Please call if further assistance is required during his hospitalization, Thank you for involving us in thee for this patient * Fabiola Coronado MD - 02/26/2019 6:08 AM EDT Inpatient Cardiology Progress Note Hospital Day 5 days Active Hospital Problems Diagnosis ??? 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 S/P right coronary artery (RCA) stent placement 02/22/2019 in setting of NSTEMI ??? Acute diastolic heart failure ??? Non-ST elevation myocardial infarction (NSTEMI) ??? Hypertension ??? COPD (chronic obstructive pulmonary disease) ??? Acute renal failure superimposed on stage 3 chronic kidney disease Resolved Hospital Problems No resolved problems to display. Patient Active Problem List Diagnosis Code ??? Acute diastolic heart failure I50.31 ??? Non-ST elevation myocardial infarction (NSTEMI) I21.4 ??? Hypertension I10 ??? COPD (chronic obstructive pulmonary disease) J44.9 ??? Acute renal failure superimposed on stage 3 chronic kidney disease N17.9, N18.3 ??? Pulmonary hypertension due to left ventricular diastolic dysfunction I27.22 ??? S/P right coronary artery (RCA) stent placement 02/22/2019 in setting of NSTEMI Z95.5 ID: Vaibhav Guzmán is a 68 y.o. male w/ a h/o COPD, HTN, CKD (baseline Cr 1.6), and prior tobacco and alcohol use presenting with worsening sob and chest pain. 24 Hour Events/Subjective: - No further chest pain, SOB - Torsemide 10 mg yesterday, -1.6 L Inpatient Medications: Scheduled Meds: ??? torsemide 10 mg Oral Daily ??? rosuvastatin 20 mg Oral QPM ??? carvedilol 12.5 mg Oral BID WC ??? heparin (Porcine) 5,000 Units Subcutaneous 2 times per day ??? sodium chloride 0.9 % 5 mL Intravenous BID ??? ipratropium-albuterol 3 mL Nebulization Q6H ??? terazosin 1 mg Oral Nightly ??? amLODIPine 10 mg Oral Daily ??? polyethylene glycol (MIRALAX)oral powder 17 g Oral Daily ??? aspirin 81 mg Oral Daily ??? clopidogrel 75 mg Oral Daily ??? pantoprazole 40 mg Oral Daily Continuous Infusions: ??? nitroGLYcerin Stopped (02/23/19 6034) PRN Meds:.calcium carbonate, sodium chloride 0.9 %, lidocaine, nitroGLYcerin Vitals: Last value 24hr range T 36.9 ??C (98.4 ??F) Temp: [36.5 ??C (97.7 ??F)-37 ??C (98.6 ??F)] HR 54 Heart Rate: [53-64] BP 98/79 BP: (98-155)/(50-79) RR 18 Resp: [18-22] SpO2 96 % SpO2: [92 %-98 %] Last value Initial Value Wt 100.1 kg (220 lb 10.9 oz) 100.2 kg (220 lb 14.4 oz) Height 172.7 cm (5' 8) 172.7 cm (5' 8) Ins/Outs: Intake/Output Summary (Last 24 hours) at 02/26/2019 0749 Last data filed at 02/26/2019 0552 Gross per 24 hour Intake 776 ml Output 2425 ml Net -1649 ml Telemetry: Sinus bradycardia Physical Exam: General: in no acute distress, pleasant, conversational HEENT: EOMI, anicteric sclerae, moist mucous membranes Lungs: normal work of breathing, crackles up to mid lung CV: regular rate, normal S1/S2, no m/r/g Abdomen: soft, nontender, nondistended Extremities: trace lower extremity edema bilaterally Labs: Recent Labs 02/26/1945802/25/19 0433 02/24/19 0436 WBC 11.4* 12.2* 12.4* HGB 11.0* 11.0* 11.1* HCT 35.1* 34.7* 35.7* PLATELET 355 339 343 No results for input(s): INR in the last 168 hours. Recent Labs 02/26/1945802/25/19 04302/24/19 1701 NA 135 136 133* K 3.6 3.9 4.5 CL 97* 97* 93* CO2 24 21* 22 BUN 63* 66* 65* CREATININE 2.06* 2.61* 3.17* No results for input(s): AST, ALT, ALKPHOS, BILITOT, BILIDIR in the last 168 hours. Recent Labs 02/26/1945802/25/19 0433 02/24/19 1701 02/24/19 0436 CALCIUM 9.0 8.5 8.5 9.0 MAGNESIUM 1.16* 1.09* -- 1.04 Recent Labs 02/21/19 2339 02/21/19 1745 02/21/19 1200 CK 133 185 214* TROPONINT 0.12* 0.15* 0.22* Recent Labs 02/21/19 1200 TSH 0.76 Recent Labs 02/21/19 1200 HA1C 5.3 Imaging/Studies: CXR: Mild to moderate pulmonary vascular congestion TTE (02/21): SUMMARY: ?? 1. The left ventricular chamber size is normal. Moderate concentric left ventricular hypertrophy isobserved without evidence of LVOT obstruction. There is [...] could not be assessed due to inadequate tricuspidregurgitation jet. 3. There is mild bi-atrial dilation. 4. There is no hemodynamically significant valve disease. 5. There is mild dilatation of the aortic root (3.9 cm) and ascending aorta (3.6 cm). 6. See remainder of report for additional findings. 7. There are no prior studies available for comparison. No WMA R + L heart cath (02/22): PA 62/20 mean 36, RA 11, PCW 19, CO 6.43, LVEDP 23 Coronary Angiography: Dominance: Co-dominant Left Main The [...] proximal segment of the right coronary artery (RCA).The RCA was large. Ramus There was mild diffuse (<=25% stenosis) disease of the entire vessel segment of the ramus. The ramus was small. EK/11: NSR Assessment: Vaibhav Guzmán is a 68 y.o. male w/ a h/o COPD, HTN, CKD (baseline Cr 1.6), and prior tobacco use presenting with acute decompensated heart failure and NSTEMI, s/p ERASMO to proximal RCA. Continuing goal-directed therapy. About euvolemia currently, aiming to find maintenance dose. Kidney function continues to improve. Stable, likely ready for d/c today. Plan: #Acute Decompensated Biventricular L > R HFpEF - strict I/Os - Torsemide 10 mg daily, f/u I/Os - Carvedilol 12.5mg BID - Hold losartan 25 mg QD given CARLOS MANUEL - pBNP downtrending from 5K to 800 - Encourage ambulation. - Crestor 20 mg while eGFR < 30, Crestor 40 mg today #Acute renal failure on stage III CKD, probable contrast-induced nephropathy vs. prerenal azotemia,now improving - Improving, baseline Cr 1.6-1.9 - Nephrology consulted #NSTEMI - ASA 81 mg qd - Plavix 75 mg qd - Rosuvastatin 40 mg qhs. - NTG prn for chest pain #HTN - Amlodipine 10 mg qd - Terazosin 1 mg qd - Carvedilol 12.5 mg BID - d/c losartan during CARLOS MANUEL #COPD - Duonebs q6h - Leukocytosis 2/2 prior steroid use # Routine - DVT PPx: SQ heparin - Diet: Cardiac - Code Status: FULL - Dispo: CSCU, likely d/c today Fabiola Coronado MD Medicine PGY-1 Cardiology S2 Pager [phone] Associated attestation - Hemant Diaz MD - 02/26/2019 10:33 PM EDT Cardiology Attending Addendum Active Hospital Problems Diagnosis ??? 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 S/P right coronary artery (RCA) stent placement 02/22/2019 in setting of NSTEMI ??? Acute diastolic heart failure ??? Non-ST elevation myocardial infarction (NSTEMI) ??? Hypertension ??? COPD (chronic obstructive pulmonary disease) ??? Acute renal failure superimposed on stage 3 chronic kidney disease Resolved Hospital Problems No resolved problems to display. I have interviewed and examined the patient, reviewed the available data, and have discussed my findings, assessment and plan with the patient and the team on rounds today. I agree with Dr. Coronado's note as below which reflects our discussion. * Fabiola Coronado MD - 02/25/2019 6:07 AM EDT Inpatient Cardiology Progress Note Hospital Day 4 days Active Hospital Problems Diagnosis ??? 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 S/P right coronary artery (RCA) stent placement 02/22/2019 in setting of NSTEMI ??? Acute diastolic heart failure ??? Non-ST elevation myocardial infarction (NSTEMI) ??? Hypertension ??? COPD (chronic obstructive pulmonary disease) ??? Acute renal failure superimposed on stage 3 chronic kidney disease Resolved Hospital Problems No resolved problems to display. Patient Active Problem List Diagnosis Code ??? Acute diastolic heart failure I50.31 ??? Non-ST elevation myocardial infarction (NSTEMI) I21.4 ??? Hypertension I10 ??? COPD (chronic obstructive pulmonary disease) J44.9 ??? Acute renal failure superimposed on stage 3 chronic kidney disease N17.9, N18.3 ??? Pulmonary hypertension due to left ventricular diastolic dysfunction I27.22 ??? S/P right coronary artery (RCA) stent placement 02/22/2019 in setting of NSTEMI Z95.5 ID: Vaibhav Guzmán is a 68 y.o. male w/ a h/o COPD, HTN, CKD (baseline Cr 1.6), and prior tobacco and alcohol use presenting with worsening sob and chest pain. 24 Hour Events/Subjective: - No chest pain, SOB - Net even - UOP 850 cc last shift, picking up - Cr improving Inpatient Medications: Scheduled Meds: ??? carvedilol 12.5 mg Oral BID WC ??? heparin (Porcine) 5,000 Units Subcutaneous 2 times per day ??? rosuvastatin 20 mg Oral QPM ??? sodium chloride 0.9 % 5 mL Intravenous BID ??? ipratropium-albuterol 3 mL Nebulization Q6H ??? terazosin 1 mg Oral Nightly ??? amLODIPine 10 mg Oral Daily ??? polyethylene glycol (MIRALAX)oral powder 17 g Oral Daily ??? aspirin 81 mg Oral Daily ??? clopidogrel 75 mg Oral Daily ??? pantoprazole 40 mg Oral Daily Continuous Infusions: ??? nitroGLYcerin Stopped (02/23/19 0834) PRN Meds:.calcium carbonate, sodium chloride 0.9 %, lidocaine, nitroGLYcerin Vitals: Last value 24hr range T 36.4 ??C (97.5 ??F) Temp: [36.4 ??C (97.5 ??F)-36.9 ??C (98.4 ??F)] HR 63 Heart Rate: [49-64] BP 137/53 BP: (93-137)/(40-64) RR 22 Resp: [18-22] SpO2 95 % SpO2: [92 %-95 %] Last value Initial Value Wt 101.1 kg (222 lb 14.2 oz) 100.2 kg (220 lb 14.4 oz) Height 172.7 cm (5' 8) 172.7 cm (5' 8) Ins/Outs: Intake/Output Summary (Last 24 hours) at 02/25/2019 0844 Last data filed at 02/25/2019 0800 Gross per 24 hour Intake 1380 ml Output 950 ml Net 430 ml Telemetry: Sinus bradycardia Physical Exam: General: in no acute distress, pleasant, conversational HEENT: EOMI, anicteric sclerae, moist mucous membranes Lungs: normal work of breathing, diffuse crackles CV: regular rate, normal S1/S2, no m/r/g Abdomen: soft, nontender, nondistended Extremities: no lower extremity edema bilaterally Labs: Recent Labs 02/25/1943202/24/1943502/23/19 0403 WBC 12.2* 12.4* 13.4* HGB 11.0* 11.1* 10.5* HCT 34.7* 35.7* 33.5* PLATELET 339 343 350 No results for input(s): INR in the last 168 hours. Recent Labs 02/25/1943202/24/19 17002/24/19 0436 NA 136 133* 137 K 3.9 4.5 3.7 CL 97* 93* 96* CO2 21* 22 24 BUN 66* 65* 52* CREATININE 2.61* 3.17* 2.60* No results for input(s): AST, ALT, ALKPHOS, BILITOT, BILIDIR in the last 168 hours. Recent Labs 02/25/1943202/24/19 17002/24/19 04302/23/19 0403 CALCIUM 8.5 8.5 9.0 < > 9.1 MAGNESIUM 1.09* -- 1.04 -- 0.93 < > = values in this interval not displayed. Recent Labs 02/21/19 2339 02/21/19 1745 02/21/19 1200 CK 133 185 214* TROPONINT 0.12* 0.15* 0.22* Recent Labs 02/21/19 1200 TSH 0.76 Recent Labs 02/21/19 1200 HA1C 5.3 Imaging/Studies: CXR: Mild to moderate pulmonary vascular congestion TTE (02/21): SUMMARY: ?? 1. The left ventricular chamber size is normal. Moderate concentric left ventricular hypertrophy isobserved without evidence of LVOT obstruction. There is [...] could not be assessed due to inadequate tricuspidregurgitation jet. 3. There is mild bi-atrial dilation. 4. There is no hemodynamically significant valve disease. 5. There is mild dilatation of the aortic root (3.9 cm) and ascending aorta (3.6 cm). 6. See remainder of report for additional findings. 7. There are no prior studies available for comparison. No WMA R + L heart cath (02/22): PA 62/20 mean 36, RA 11, PCW 19, CO 6.43, LVEDP 23 Coronary Angiography: Dominance: Co-dominant Left Main The [...] proximal segment of the right coronary artery (RCA).The RCA was large. Ramus There was mild diffuse (<=25% stenosis) disease of the entire vessel segment of the ramus. The ramus was small. EK/11: NSR Assessment: Vaibhav Guzmán is a 68 y.o. male w/ a h/o COPD, HTN, CKD (baseline Cr 1.6), and prior tobacco use presenting with acute decompensated heart failure and NSTEMI, s/p ERASMO to proximal RCA. Continuing goal-directed therapy. About euvolemia currently, aiming to find maintenance dose. Kidney function now improving. Anticipate will be ready for d/c tomorrow if kidney function continues to improve. Plan: #Acute Decompensated Biventricular L > R HFpEF - strict I/Os - Torsemide 10 mg daily, f/u I/Os - Carvedilol 25 mg BID decreased to 12.5mg BID due to bradycardia and symptoms - d/c losartan 25 mg QD - HOLD given CARLOS MANUEL, need to restart when resolved - pBNP downtrending from 5K to 800 - Encourage ambulation. - Crestor 20 mg while eGFR < 30 #CARLOS MANUEL on CKD - hold losartan - hold diuresis - f/u UA w/ microscopy - f/u urine electrolytes - consult to Nephrology #NSTEMI - ASA 81 mg qd - Plavix 75 mg qd - Rosuvastatin 40 mg qhs. - NTG prn for chest pain #HTN - Amlodipine 10 mg qd - Terazosin 1 mg qd - Carvedilol 12.5 mg BID - d/c losartan during CARLOS MANUEL #COPD - Duonebs q6h - Leukocytosis 2/2 prior steroid use # Routine - DVT PPx: SQ heparin - Diet: Cardiac - Code Status: FULL - Dispo: LIN Coronado MD Medicine PGY-1 Cardiology S2 Pager [phone] Associated attestation - Hemant Diaz MD - 02/25/2019 6:06 PM EDT Cardiology Attending Addendum Active Hospital Problems Diagnosis ??? 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 S/P right coronary artery (RCA) stent placement 02/22/2019 in setting of NSTEMI ??? Acute diastolic heart failure ??? Non-ST elevation myocardial infarction (NSTEMI) ??? Hypertension ??? COPD (chronic obstructive pulmonary disease) ??? Acute renal failure superimposed on stage 3 chronic kidney disease Resolved Hospital Problems No resolved problems to display. I have interviewed and examined the patient, reviewed the available data, and have discussed my findings, assessment and plan with the patient and the team on rounds today. I agree with Dr. Corondao's note as below which reflects our discussion. * Joleen Vazquez RN - 02/24/2019 1:39 PM EDT Orthostatics obtained. Patient felt dizzy and heavy headed during position changes. 02/24/19 1328 02/24/19 1331 02/24/19 1333 Adult Vital Signs Heart Rate from SpO2 52 bpm 61 bpm (!) 43 bpm Heart Rate 54 57 56 BP 105/43 93/52 93/43 MAP (NBP) 56 mmHg 63 mmHg 56 mmHg BP Method Automatic Automatic Automatic BP Location (NBP) Left arm Left arm Left arm Patient Position Lying Sitting Standing Cardiac Rhythm SB SB SB Resp 18 18 22 SpO2 95 % 95 % 93 % * SamuelSurekha - 02/24/2019 12:03 PM EDT Inpatient Cardiology Progress Note Hospital Day 3 days Active Hospital Problems Diagnosis ??? 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 Acute diastolic heart failure ??? Non-ST elevation myocardial infarction (NSTEMI) ??? Hypertension ??? COPD (chronic obstructive pulmonary disease) ??? Stage 3 chronic kidney disease Resolved Hospital Problems No resolved problems to display. Patient Active Problem List Diagnosis Code ??? Acute diastolic heart failure I50.31 ??? Non-ST elevation myocardial infarction (NSTEMI) I21.4 ??? Hypertension I10 ??? COPD (chronic obstructive pulmonary disease) J44.9 ??? Stage 3 chronic kidney disease N18.3 ??? Pulmonary hypertension due to left ventricular diastolic dysfunction I27.22 ID: Vaibhav Guzmán is a 68 y.o. male w/ a h/o COPD, HTN, CKD (baseline Cr 1.6), and prior tobacco and alcohol use presenting with worsening sob and chest pain. 24 Hour Events/Subjective: - s/p 80mg lasix (x2) yesterday w/ metolazone, last dose around 11AM - Cr up-trending to 2.6 from 2.2 yesterday afternoon - UOP 2.3L with net negative 900cc - no further chest pain or sob - HR in the 40-50s with SBP 100-120s, some lightheadedness with transferring Inpatient Medications: Scheduled Meds: ??? carvedilol 12.5 mg Oral BID WC ??? heparin (Porcine) 5,000 Units Subcutaneous 2 times per day ??? rosuvastatin 20 mg Oral QPM ??? sodium chloride 0.9 % 5 mL Intravenous BID ??? ipratropium-albuterol 3 mL Nebulization Q6H ??? terazosin 1 mg Oral Nightly ??? amLODIPine 10 mg Oral Daily ??? polyethylene glycol (MIRALAX)oral powder 17 g Oral Daily ??? aspirin 81 mg Oral Daily ??? clopidogrel 75 mg Oral Daily ??? pantoprazole 40 mg Oral Daily Continuous Infusions: ??? nitroGLYcerin Stopped (02/23/19 0834) PRN Meds:.calcium carbonate, sodium chloride 0.9 %, lidocaine, nitroGLYcerin Vitals: Last value 24hr range T 36.6 ??C (97.9 ??F) Temp: [36.5 ??C (97.7 ??F)-37 ??C (98.6 ??F)] HR (!) 49 Heart Rate: [49-62] BP 109/53 BP: (101-139)/(48-67) RR 18 Resp: [14-20] SpO2 95 % SpO2: [84 %-98 %] Last value Initial Value Wt 99.6 kg (219 lb 9.3 oz) 100.2 kg (220 lb 14.4 oz) Height 172.7 cm (5' 8) 172.7 cm (5' 8) Ins/Outs: Intake/Output Summary (Last 24 hours) at 02/24/2019 1210 Last data filed at 02/24/2019 0812 Gross per 24 hour Intake 1260 ml Output 1200 ml Net 60 ml Telemetry: NSR Physical Exam: General: in no acute distress, pleasant, conversational HEENT: EOMI, anicteric sclerae, moist mucous membranes Neck: JVP 5 cm Lungs: normal work of breathing, bibasilar crackles CV: regular rate, normal S1/S2, no m/r/g Abdomen: soft, nontender, nondistended Extremities: trace to 1+ lower extremity edema bilaterally Labs: Recent Labs 02/24/19 0436 02/23/19 0403 02/22/19 0432 WBC 12.4* 13.4* 14.9* HGB 11.1* 10.5* 10.6* HCT 35.7* 33.5* 33.9* PLATELET 343 350 366* No results for input(s): INR in the last 168 hours. Recent Labs 02/24/19 0436 02/23/19 1415 02/23/19 0403 NA 137 135 139 K 3.7 3.9 3.6 CL 96* 94* 98 CO2 24 24 25 BUN 52* 44* 38* CREATININE 2.60* 2.27* 1.94* No results for input(s): AST, ALT, ALKPHOS, BILITOT, BILIDIR in the last 168 hours. Recent Labs 02/24/19 0436 02/23/19 1415 02/23/19 0403 02/22/19 0432 CALCIUM 9.0 9.0 9.1 9.3 MAGNESIUM 1.04 -- 0.93 0.87 Recent Labs 02/21/19 2339 02/21/19 1745 02/21/19 1200 CK 133 185 214* TROPONINT 0.12* 0.15* 0.22* Recent Labs 02/21/19 1200 TSH 0.76 Recent Labs 02/21/19 1200 HA1C 5.3 Imaging/Studies: CXR: Mild to moderate pulmonary vascular congestion TTE (02/21): SUMMARY: ?? 1. The left ventricular chamber size is normal. Moderate concentric left ventricular hypertrophy isobserved without evidence of LVOT obstruction. There is [...] could not be assessed due to inadequate tricuspidregurgitation jet. 3. There is mild bi-atrial dilation. 4. There is no hemodynamically significant valve disease. 5. There is mild dilatation of the aortic root (3.9 cm) and ascending aorta (3.6 cm). 6. See remainder of report for additional findings. 7. There are no prior studies available for comparison. No WMA R + L heart cath (02/22): PA 62/20 mean 36, RA 11, PCW 19, CO 6.43, LVEDP 23 Coronary Angiography: Dominance: Co-dominant Left Main The [...] proximal segment of the right coronary artery (RCA).The RCA was large. Ramus There was mild diffuse (<=25% stenosis) disease of the entire vessel segment of the ramus. The ramus was small. EK/11: NSR Assessment: Vaibhav Guzmán is a 68 y.o. male w/ a h/o COPD, HTN, CKD (baseline Cr 1.6), and prior tobacco use presenting with acute decompensated heart failure and NSTEMI, s/p ERASMO to proximal RCA. Continuing goal-directed therapy and diuresis. About euvolemia currently. However with CARLOS MANUEL on CKD now likely from diuresis vs. contrast nephropathy from cath. Will hold further diuresis and w/u with urine lytes and UA w/ microscopy. Plan: #Acute Decompensated Biventricular L > R HFpEF - strict I/Os - s/p lasix 80mg IV intermittently, hold for today, will need PO diuresis when kidneys improve prior to discharge - Carvedilol 25 mg BID decreased to 12.5mg BID due to bradycardia and symptoms - d/c losartan 25 mg QD - HOLD given CARLOS MANUEL, need to restart when resolved - pBNP downtrending from 5K to 800 - Encourage ambulation. #CARLOS MANUEL on CKD - hold losartan - hold diuresis - f/u UA w/ microscopy - f/u urine electrolytes - consult to Nephrology #NSTEMI - ASA 81 mg qd - Plavix 75 mg qd - Rosuvastatin 20 mg qhs. - NTG prn for chest pain #HTN - Amlodipine 10 mg qd - Terazosin 1 mg qd - Carvedilol 12.5 mg BID - d/c losartan during CARLOS MANUEL - Titrate off nitro drip. #COPD - Duonebs q6h - Leukocytosis 2/2 prior steroid use # Routine - DVT PPx: SQ heparin - Diet: Cardiac - Code Status: FULL - Dispo: CSCU Surekha Baker MD Medicine PGY-3 Cardiology S2 Pager [phone] Associated attestation - Hemant Diaz MD - 02/24/2019 3:30 PM EDT Cardiology Attending Addendum Active Hospital Problems Diagnosis ??? 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 S/P right coronary artery (RCA) stent placement 02/22/2019 in setting of NSTEMI ??? Acute diastolic heart failure ??? Non-ST elevation myocardial infarction (NSTEMI) ??? Hypertension ??? COPD (chronic obstructive pulmonary disease) ??? Acute renal failure superimposed on stage 3 chronic kidney disease Resolved Hospital Problems No resolved problems to display. I have interviewed and examined the patient, reviewed the available data, and have discussed my findings, assessment and plan with the patient and the team on rounds today. I agree with Dr. Baker'snote as below which reflects our discussion. * Eileen Meadows - 02/23/2019 10:57 AM EDT Nutrition Services - Education Note Vaibhav Guzmán : 1950 AGE: 68 y.o. Patient Active Problem List Diagnosis Date Noted ??? 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 Hospital-Acute diastolic heart failure 02/21/2019 Priority: High ??? Qqwzyaji-[id number]-[id number] elevation myocardial infarction (NSTEMI) 02/21/2019 Priority: High ??? Hospital-Hypertension 02/21/2019 ??? Hospital-COPD (chronic obstructive pulmonary disease) 02/21/2019 ??? Hospital-Stage 3 chronic kidney disease 02/21/2019 Reason for Nutrition Intervention: Diet Order Diet [place] [facility] [place] Appetite: Good per patient Food allergies: NKFA Chewing/Swallowing difficulty: None per patient Ht Readings from Last 3 Encounters: 02/21/19 172.7 cm (5' 8) Wt Readings from Last 3 Encounters: 02/23/19 99.1 kg (218 lb 7.6 oz) Body mass index is 33.22 kg/m??. Vitamins/Minerals: TUMS noted.. Assessment: Patient seen regarding Diet Order - Na2gm. Patient verbalized good understanding of current dietary restrictions, low sodium at this time. He reported a good appetite without difficulty chewing or swallowing. Per patient he consumed 100% of his breakfast on 02/23 consisting of eggs, orange juice, white toast, milk and coffee. He is tolerating current diet without nausea or vomiting. Dry Mill Operator explained to patient about food restrictions and items that he should avoid like canned goods, some cold cuts high in sodium, pre made and some frozen meals. Discussed how to read a food label and what terms to look for while grocery shopping. Encouraged daily consumption of fresh fruits and veg etables, lean meats and fish, whole grains and low-fat dairy products. Educational material Two Gram Sodium provided with contact information if further questions arise. Patient had no further questions at this time. Nutrition will continue to monitor and follow up with patient weekly. Nutrition Plan: Continue current diet. Encourage good po intake. Monitor weight. Support and encouragement provided. Nutrition services to follow weekly thru hospital course unless consulted in the interim. YUDELKA Kapoor Pager [phone] * Joleen Vazquez RN - 02/23/2019 10:35 AM EDT Up to ambulate patient reports heartburn pain that resolved with belching. Ambulated around the unit. Reports mild SOB. After about 100 ft reports 5/10 chest tightness. Back to room, vitals below obtained. Reports mild resolution without intervention- 3/10. Pain 2/10 at time of EKG. MD Diaz aware. SL nitro givenx, pain initially 1/10 resolved completely. Patient reports difficulty determining cause of pain as he has intermittent acid reflux and states coughing makes his chest hurt. 02/23/19 1020 Adult Vital Signs Heart Rate from SpO2 60 bpm Heart Rate 60 BP 133/56 MAP (NBP) 73 mmHg BP Method Automatic BP Location (NBP) Left arm Patient Position Sitting Resp 20 SpO2 95 % Pain Scale/Rating Pain Assessment Scale Numbers (Numeric Rating Pain Scale) Pain Level 5 Pain Assessment Numbers/Faces/Word Pain Body Location - Orientation generalized Pain Body Location chest, general Quality tightness * Fabiola Coronado MD - 02/23/2019 6:05 AM EDT Inpatient Cardiology Progress Note Hospital Day 2 days Active Hospital Problems Diagnosis ??? 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 Acute diastolic heart failure ??? Non-ST elevation myocardial infarction (NSTEMI) ??? Hypertension ??? COPD (chronic obstructive pulmonary disease) ??? Stage 3 chronic kidney disease Resolved Hospital Problems No resolved problems to display. Patient Active Problem List Diagnosis Code ??? Acute diastolic heart failure I50.31 ??? Non-ST elevation myocardial infarction (NSTEMI) I21.4 ??? Hypertension I10 ??? COPD (chronic obstructive pulmonary disease) J44.9 ??? Stage 3 chronic kidney disease N18.3 ??? Pulmonary hypertension due to left ventricular diastolic dysfunction I27.22 ID: Vaibhav Guzmán is a 68 y.o. male w/ a h/o COPD, HTN, CKD (baseline Cr 1.6), and prior tobacco and alcohol use presenting with worsening sob and chest pain. 24 Hour Events/Subjective: - 60 mg IV Lasix x2 in afternoon/evening, 80 mg IV Lasix and metolazone 2.5, missed - No chest pain or SOB - Had some heartburn after the cath - HR 50s-60s, BP 130s-150s/40s-60s (160s-170s systolic yesterday evening), 2 to 3 L O2 NC overnight(desats while sleeping) - Carvedilol 12.5 mg yesterday evening, increased to 25 mg BID today - Nitro drip up to 200 overnight, off this morning Inpatient Medications: Scheduled Meds: ??? magnesium sulfate 1 g Intravenous Once ??? rosuvastatin 20 mg Oral QPM ??? carvedilol 25 mg Oral BID WC ??? sodium chloride 0.9 % 5 mL Intravenous BID ??? ipratropium-albuterol 3 mL Nebulization Q6H ??? terazosin 1 mg Oral Nightly ??? amLODIPine 10 mg Oral Daily ??? polyethylene glycol (MIRALAX)oral powder 17 g Oral Daily ??? aspirin 81 mg Oral Daily ??? clopidogrel 75 mg Oral Daily ??? pantoprazole 40 mg Oral Daily Continuous Infusions: ??? heparin (porcine) 1,400 Units/hr (02/22/19 0611) ??? nitroGLYcerin 25 mcg/min (02/23/19 0645) PRN Meds:.calcium carbonate, sodium chloride 0.9 %, lidocaine, nitroGLYcerin, heparin (porcine) AND heparin (porcine) Vitals: Last value 24hr range T 36.5 ??C (97.7 ??F) Temp: [36.4 ??C (97.5 ??F)-37 ??C (98.6 ??F)] HR 57 Heart Rate: [57-98] BP 156/47 BP: (126-195)/(43-88) RR 16 Resp: [16-20] SpO2 91 % SpO2: [91 %-95 %] Last value Initial Value Wt 99.1 kg (218 lb 7.6 oz) 100.2 kg (220 lb 14.4 oz) Height 172.7 cm (5' 8) 172.7 cm (5' 8) Ins/Outs: Intake/Output Summary (Last 24 hours) at 02/23/2019 0729 Last data filed at 02/23/2019 0400 Gross per 24 hour Intake 1739.64 ml Output 1650 ml Net 89.64 ml Telemetry: NSR Physical Exam: General: in no acute distress, pleasant, conversational HEENT: EOMI, anicteric sclerae, moist mucous membranes Neck: JVP 5 cm Lungs: normal work of breathing, bibasilar crackles CV: regular rate, normal S1/S2, no m/r/g Abdomen: soft, nontender, nondistended Extremities: trace to 1+ lower extremity edema bilaterally Labs: Recent Labs 02/23/19 0403 02/22/19 0432 02/21/19 1200 WBC 13.4* 14.9* 16.8* HGB 10.5* 10.6* 11.3* HCT 33.5* 33.9* 36.0* PLATELET 350 366* 408* No results for input(s): INR in the last 168 hours. Recent Labs 02/23/19 0403 02/22/19 0432 02/21/19 1200 NA 139 139 140 K 3.6 3.5 4.4 CL 98 99 99 CO2 25 24 23 BUN 38* 44* 37* CREATININE 1.94* 1.88* 1.91* No results for input(s): AST, ALT, ALKPHOS, BILITOT, BILIDIR in the last 168 hours. Recent Labs 02/23/19 0403 02/22/19 0432 02/21/19 1200 CALCIUM 9.1 9.3 10.2 MAGNESIUM 0.93 0.87 0.88 Recent Labs 02/21/19 2339 02/21/19 1745 02/21/19 1200 CK 133 185 214* TROPONINT 0.12* 0.15* 0.22* Recent Labs 02/21/19 1200 TSH 0.76 Recent Labs 02/21/19 1200 HA1C 5.3 Imaging/Studies: CXR: Mild to moderate pulmonary vascular congestion TTE (02/21): SUMMARY: ?? 1. The left ventricular chamber size is normal. Moderate concentric left ventricular hypertrophy isobserved without evidence of LVOT obstruction. There is [...] could not be assessed due to inadequate tricuspidregurgitation jet. 3. There is mild bi-atrial dilation. 4. There is no hemodynamically significant valve disease. 5. There is mild dilatation of the aortic root (3.9 cm) and ascending aorta (3.6 cm). 6. See remainder of report for additional findings. 7. There are no prior studies available for comparison. No WMA R + L heart cath (02/22): PA 62/20 mean 36, RA 11, PCW 19, CO 6.43, LVEDP 23 Coronary Angiography: Dominance: Co-dominant Left Main The [...] proximal segment of the right coronary artery (RCA).The RCA was large. Ramus There was mild diffuse (<=25% stenosis) disease of the entire vessel segment of the ramus. The ramus was small. EK/11: NSR Assessment: Vaibhav Guzmán is a 68 y.o. male w/ a h/o COPD, HTN, CKD (baseline Cr 1.6), and prior tobacco use presenting with acute decompensated heart failure and NSTEMI, s/p ERASMO to proximal RCA. Continuing goal-directed therapy and diuresis. On exam he does not appear to be significantly fluidoverloaded based on JVP and lower extremity edema, despite the elevated LVEDP yesterday. He is likely close to euvolemic, will aim for 1 to 2 L net negative. On goal-directed therapy. Plan: #Acute Decompensated Biventricular L > R HFpEF - strict I/Os - Lasix IV 80 mg, f/u I/O - Transition to PO diuretic tomorrow. - Carvedilol 25 mg BID - Start losartan 25 mg QD. - Check pro-BNP. - Encourage ambulation. #NSTEMI - ASA 81 mg qd - Plavix 75 mg qd - Rosuvastatin 20 mg qhs. - NTG prn for chest pain #HTN - Amlodipine 10 mg qd - Terazosin 1 mg qd - Carvedilol 25 mg BID - Start losartan 25 mg QD. - Titrate off nitro drip. #COPD - Duonebs q6h - Leukocytosis 2/2 prior steroid use # Routine - DVT PPx: on heparin drip - Diet: Cardiac - Code Status: FULL - Dispo: CSCU, anticipate possible d/c on Monday [facility] PGY-1 Cardiology S2 Pager [phone] Associated attestation - Hemant Diaz MD - 02/23/2019 10:55 PM EDT Cardiology Attending Addendum Active Hospital Problems Diagnosis Pulmonary hypertension due to left ventricular diastolic dysfunction Acute diastolic heart failure Non-ST elevation myocardial infarction (NSTEMI) Hypertension COPD (chronic obstructive pulmonary disease) Stage 3 chronic kidney disease Resolved Hospital Problems No resolved problems to display. I have interviewed and examined the patient, reviewed the available data, and have discussed my findings, assessment and plan with the patient and the team on rounds today. I agree with Dr. Coronado's note as below which reflects our discussion. * Alissa Pozo MD - 02/22/2019 10:53 PM EDT Post Cardiac Catheterization Check Note Subjective: No chest pain, dyspnea, hand/arm pain. No rash. No weakness/numbness/tingling. No bleeding/swelling from access site. Objective: Blood pressure 162/60, pulse 98, temperature 37 ??C (98.6 ??F), temperature source Oral, resp. rate17, height 172.7 cm (5' 8), weight 99.4 kg (219 lb 2.2 oz), SpO2 92 %. General: Lying in bed in NAD. Site: access site without hematoma or ecchymoses. dressing c/d/i. No bruit. Nontender. Extrem: no livedo reticularis, warm/symmetric, sensation intact/symmetric, symmetric 2+ radial pulses. A/P: s/p cath with benign-appearing right radial access site and no issues Alissa Pozo MD * Reta Benson - 02/22/2019 6:54 AM EDT Images from the original note were not included. Pre Cardiac Catheterization Note 68 y.o. male with no known history of CAD, medical history notable for COPD (not on home O2), HTN, CKD (baseline Cr 1.6), and prior tobacco/alcohol use presenting with worsening sob and chest pain. Please see Dr. Avila/Samuel's note dated 02/21/19 for full details. Referred for Right heart cath + Left heart cath in setting of NSTEMI. Denies planned upcoming surgeries. Denies recent or ongoing bleeding events. BP 134/65 Pulse 74 Temp 37 ??C (98.6 ??F) (Oral) Resp 19 Ht 172.7 cm (5' 8) Wt 99.4 kg (219 lb 2.2 oz) SpO2 100% BMI 33.32 kg/m?? General: alert, conversant male appears in no apparent distress; able to lie flat Heart: RRR, normal S1 and S2; no m/r/g apparent. JVP does not appear elevated. Lungs: Rales midway up, scattered wheeze Extremities: Bilateral Vinod's Test positive--both the radial and ulnar arteries alone provide ample circulation to the hand arcade. Femoral arteries are with adequate upstroke and without overlying evidence of infection. DP/PT pulses 2+ bilaterally. Neuro: AOx3, non-focal Skin: Warm, dry ASA: 3: Patient with severe systemic disease Mallampati: II: tonsillar pillars are blocked by the tongue Sedation Plan: moderate (conscious sedation) Last 3 wbc, hgb, hct plt Recent Labs 02/22/19 0432 02/21/19 1200 WBC 14.9* 16.8* HGB 10.6* 11.3* HCT 33.9* 36.0* PLATELET 366* 408* Last 3 Lytes Recent Labs 02/22/19 0432 02/21/19 1200 NA 139 140 K 3.5 4.4 CL 99 99 CO2 24 23 BUN 44* 37* CREATININE 1.88* 1.91* Previous Catheterization: none The indications, expected benefits, and potential risks of heart catheterization were reviewed in detail with the patient. The potential for , heart attack, stroke, kidney failure, hemorrhage, allergic reaction, vascular complications and infection were reviewed in detail. The possibility of stenting and other percutaneous intervention, with associated risk, was reviewed. The possible need for emergent coronary artery bypass surgery was reviewed. Alternatives were discussed and the patient's questions were answered in full. Following this discussion, the patient consented to the procedure and signed a form attesting to this, which is in the chart. Plan: Coronary Angio via Radial or Femoral approach, per desktop publishing operator preference No C/I to long-term DAPT Moderate Sedation OK Reta Benson MD Cardiovascular Disease Fellow, PGY-4 [facility] # [id number] * Fabiola Coronado MD - 02/22/2019 6:09 AM EDT Inpatient Cardiology Progress Note Hospital Day 1 day Active Hospital Problems Diagnosis ??? Heart failure ??? Non-ST elevation myocardial infarction (NSTEMI) ??? Hypertension ??? COPD (chronic obstructive pulmonary disease) ??? Stage 3 chronic kidney disease Resolved Hospital Problems No resolved problems to display. Patient Active Problem List Diagnosis Code ??? Heart failure I50.9 ??? Non-ST elevation myocardial infarction (NSTEMI) I21.4 ??? Hypertension I10 ??? COPD (chronic obstructive pulmonary disease) J44.9 ??? Stage 3 chronic kidney disease N18.3 ID: Vabihav Guzmán is a 68 y.o. male w/ a h/o COPD, HTN, CKD (baseline Cr 1.6), and prior tobacco and alcohol use presenting with worsening sob and chest pain. 24 Hour Events/Subjective: - IV 60 mg Lasix yesterday, IV 60 mg Lasix at 0230 today - Burping, upset stomach -->given tums - Nitro drip uptitrated for SBP (at 95) - Desaturation to 88% requiring 2L O2 while sleeping - No chest pain other than some heartburn Inpatient Medications: Scheduled Meds: ??? magnesium sulfate 2 g Intravenous Once ??? sodium chloride 0.9 % 5 mL Intravenous BID ??? rosuvastatin 10 mg Oral QPM ??? ipratropium-albuterol 3 mL Nebulization Q6H ??? terazosin 1 mg Oral Nightly ??? amLODIPine 10 mg Oral Daily ??? polyethylene glycol (MIRALAX)oral powder 17 g Oral Daily ??? aspirin 81 mg Oral Daily ??? clopidogrel 75 mg Oral Daily ??? pantoprazole 40 mg Oral Daily Continuous Infusions: ??? heparin (porcine) 1,400 Units/hr (02/22/19 0611) ??? nitroGLYcerin 125 mcg/min (02/22/19 0800) PRN Meds:.calcium carbonate, sodium chloride 0.9 %, lidocaine, nitroGLYcerin, heparin (porcine) AND heparin (porcine) Vitals: Last value 24hr range T 36.4 ??C (97.5 ??F) Temp: [36.4 ??C (97.5 ??F)-37 ??C (98.6 ??F)] HR 66 Heart Rate: [65-100] BP 142/71 BP: (134-170)/(63-90) RR 16 Resp: [14-22] SpO2 94 % SpO2: [88 %-100 %] Last value Initial Value Wt 99.4 kg (219 lb 2.2 oz) 100.2 kg (220 lb 14.4 oz) Height 172.7 cm (5' 8) 172.7 cm (5' 8) Ins/Outs: Intake/Output Summary (Last 24 hours) at 02/22/2019 1010 Last data filed at 02/22/2019 0400 Gross per 24 hour Intake 1086.28 ml Output 2250 ml Net -1163.72 ml Telemetry: NSR Physical Exam: General: in no acute distress, pleasant, conversational HEENT: EOMI, anicteric sclerae, moist mucous membranes Lungs: normal work of breathing, bibasilar crackles CV: regular rate, normal S1/S2, no m/r/g Abdomen: soft, nontender, nondistended Extremities: 1+ to 2+ lower extremity edema bilaterally Labs: Recent Labs 02/22/19 0432 02/21/19 1200 WBC 14.9* 16.8* HGB 10.6* 11.3* HCT 33.9* 36.0* PLATELET 366* 408* No results for input(s): INR in the last 168 hours. Recent Labs 02/22/19 0432 02/21/19 1200 NA 139 140 K 3.5 4.4 CL 99 99 CO2 24 23 BUN 44* 37* CREATININE 1.88* 1.91* No results for input(s): AST, ALT, ALKPHOS, BILITOT, BILIDIR in the last 168 hours. Recent Labs 02/22/19 0432 02/21/19 1200 CALCIUM 9.3 10.2 MAGNESIUM 0.87 0.88 Recent Labs 02/21/19 2339 02/21/19 1745 02/21/19 1200 CK 133 185 214* TROPONINT 0.12* 0.15* 0.22* Recent Labs 02/21/19 1200 TSH 0.76 Recent Labs 02/21/19 1200 HA1C 5.3 Imaging/Studies: CXR: Mild to moderate pulmonary vascular congestion TTE (02/21): SUMMARY: ?? 1. The left ventricular chamber size is normal. Moderate concentric left ventricular hypertrophy isobserved without evidence of LVOT obstruction. There is [...] could not be assessed due to inadequate tricuspidregurgitation jet. 3. There is mild bi-atrial dilation. 4. There is no hemodynamically significant valve disease. 5. There is mild dilatation of the aortic root (3.9 cm) and ascending aorta (3.6 cm). 6. See remainder of report for additional findings. 7. There are no prior studies available for comparison. No WMA EK/11: NSR Assessment: Vaibhav Guzmán is a 68 y.o. male w/ a h/o COPD, HTN, CKD (baseline Cr 1.6), and prior tobacco use presenting with worsening sob and chest pain found to be volume overloaded with an NSTEMI. Treating for ACS with heparin, plavix, ASA, and statin. Plan for R and L heart cath today. Continuing diuresis for HFpEF exacerbation. Does not clinically seem like COPD exacerbation so will hold antibiotics and steroids for now. Plan: #Acute Decompensated HFpEF - CXR - strict I/Os - NTG prn for chest pain - NTG drip for SBP>160 - R heart cath - Consider Lasix dose after cath depending on results. - Diuresis - Start carvedilol after cath. - Holding off on ISHAN-I for now, restart at a later date. #NSTEMI - ASA 81 mg qd - Plavix 75 mg qd - Increase rosuvastatin to 20 mg qhs. #HTN - Amlodipine 10 mg qd - Terazosin 1 mg qd - Start carvedilol after cath. - Holding off on ISHAN-I for now, restart at a later date. #COPD - Duonebs q6h - Consider steroids/abx if clinically indicated in the next few days. - Leukocytosis 2/2 prior steroid use # Routine - DVT PPx: on heparin drip - Diet: Cardiac - Code Status: FULL - Dispo: floor status, discharge pending clinical course Fabiola Coronado Medicine PGY-1 Cardiology S2 Pager [phone] Associated attestation - Hemant Diaz MD - 02/22/2019 6:28 PM EDT Patient Active Problem List Diagnosis Pulmonary hypertension due to left ventricular diastolic dysfunction 02/22/2019 L+RHC: PA 62/20 mean 36, RA 11, PCW 19, LVEDP 23 Acute diastolic heart failure Acute Decompensated biventricular, L > R heart failure LVEF est 75% Elevated proBNP (5843) NSTEMI with elevated Tn EKG: NSR with mild dynamic ST changes AHA/ACC stage C, NYHA FTC IIIB Non-ST elevation myocardial infarction (NSTEMI) Clinical symptoms: HF, no angina Dynamic ST changes Elevated Tn Normal QRS duration 02/22/2019 Proximal eccentric RCA stenosis stented with 3.00 x 24 mm Synergy (ERASMO) Hypertension COPD (chronic obstructive pulmonary disease) On chronic inhalers Stage 3 chronic kidney disease I have interviewed and examined the patient, reviewed the available data, and have discussed my findings, assessment and plan with the patient and the team on rounds today. I agree with Dr. Coronado's note as below and have added findings for L+R heart catheterization into problem list above. * Sirena Resendiz - 02/21/2019 5:14 PM EDT OUTCOME EVALUATION NOTE: OUTCOME SUMMARY: Pt arrived at 1200, alert and oriented; oriented to room and instructed production support engineer chu. Patient hypertensive, see doc flows. Pt on nitro infusing for blood pressure control and heparin infusing per protocal. Pt has been in NSR to Sinus Tach. Pt reports no CP or SOB. Will continue to monitor. PLAN MOVING FORWARD: NPO at midnight for possible cath, trend troponin level, diurese and HR control INDIVIDUALIZED FALL PREVENTION INTERVENTIONS: Patient-specific fall risk factors per assessment: [current deficits]: PIVs, tele wires, hospital environment, generalized weakness Assistance [level of assistance required for transfers and ambulation]: stand by Supervision [direct monitoring required during toileting and ADLs]: Eyes on Surveillance [continuous indirect monitoring]: Tele, O2, call chu in reach, purposeful nurse rounding CPG GOAL OUTCOME EVALUATION: documented in this encounter H&P Notes * Surekha Baker - 02/21/2019 12:28 PM EDT CARDIOLOGY HISTORY & PHYSICAL EXAM Date of Admission: 02/21/2019 ( Hospital Day 0 days ) Responsible Attending: Katlyn Avila MD PCP: Bryant Watkins MD PCP#: [phone] Patient Active Problem List Diagnosis Code ??? Heart failure I50.9 History of Present Illness: Vaibhav Guzmán is a 68 y.o. male w/ a h/o COPD, HTN, CKD (baseline Cr 1.6), and prior tobaccoalcohol use presenting with worsening sob and chest pain. Presented to the ED 2 days ago and treated for COPD exacerbation with 10 days of prednisone and doxycycline, currently only taken 2 days worth of doses. Afterwards was feeling a little better in terms of breathing but noted it was difficult for him to lay flat comfortably. Had some chest pain that reminded him of heartburn when laying flat, no radiation at the time, has this type of pain almost every night. Also endorsed some substernal chest pressure at rest on Monday, resolved on it's own, no pain since then. Has never had pain like this before but was mild in nature. This morning got up from bed and notes his breathing was much worse. Could not catch his breathe, no chest pain at the time. Returned to the ED and was hypoxic to 88% and CXR showing pulmonary edema,exam with lower extremity edema. EKG showing some lateral STD. PCOUS showing some LV dysfunction. Given 40mg IV lasix for fluid overload now on 2L NC and transferred for ongoing management. OSH Labs: WBC 22 Plt 441 Na 141 K 3.5 Cr 1.9 Tn 0.61 proBNP 4000 ROS: Constitutional: No fever, no night sweats, no chills, no fatigue, no recent weight changes HEENT: No BIRCH, no dizziness, no rhinorrea; no vision changes, no hearing loss, no dysphagia, no sinus congestion Resp: no wheezing or coughing, no sputum CV: no palpitations GI: No n/v/d/c, no abd pain : No trouble urinating, or dysuria or burning, no polyuria, no polydypsia MSK: No soreness or arthlagias otherwise, no joint pain or swelling Neuro: AAO x 3, non-focal Skin: No new rashes, ulcers, skin or hair changes Medications: reviewed in MAR Physical Exam: Vitals: Most Recent Vitals: 02/21/19 1419 BP: 161/74 Pulse: Resp: Temp: SpO2: General: alert, conversant male appears in NAD HEENT: NCAT, PERRLA, EOMI, MMM + pink Neck: Supple, normal ROM, no JVD appreciated Heart: RRR, normal S1 and S2; no m/r/g apparent Lungs: No increased WOB; CTAB, no rhonchi/wheezes/rales Abdomen: Soft, BS+ NT, ND, no bruits, no rebound or guarding, no organomegaly Extremities: no cyanosis, edema, or clubbing; pulses 2+ bilaterally Skin: Warm, dry; no rashes or lesions Images: CXR: Mild to moderate pulmonary vascular congestion Assessment: Vaibhav Guzmán is a 68 y.o. male w/ a h/o COPD, HTN, CKD (baseline Cr 1.6), and prior tobacco use presenting with worsening sob and chest pain found to be volume overloaded with an NSTEMI. Will treatas ACS with heparin, plavix, ASA, and statin. Getting TTE today and NPO tonight for potential cath.Also volume overloaded on exam so will continue with gentle diuresis. Does not clinically seem likeCOPD exacerbation so will hold antibiotics and steroids for now. Plan: #Acute Decompensated HF - TTE - CXR - f/u trop/CK, CBC, BMP, proBNP - strict I/O - received 40mg IV lasix this morning - repeat 60mg IV lasix dosing - aim for net neg 1-2L by morning - trend trop x3 today - NTG prn for chest pain - NTG drip for SBP <160 #NSTEMI - heparin drip - ASA - plavix - statin - NPO at midnight - EKG on arrival #HTN - terazosin - amlodipine - hold metoprolol given HF #COPD - duonebs q6h - consider steroids/abx if clinically indicated in the next few days - leukocytosis 2/2 prior steroid use # Routine - DVT PPx: SQ heparin - Diet: cardiac - Code Status: FULL - Dispo: floor status, discharge pending clinical course Surekha Baker MD Internal Medicine, PGY-3 Cardiology S2, Team Pager # [phone] Associated attestation - Katlyn Avila MD - 02/21/2019 5:07 PM EDT CARDIOLOGY ATTENDING NOTE Patient: Vaibhav Guzmán Date of Service: 02/21/2019 Date of Admission: 02/21/2019 Length of Stay Hospital Day 0 days Please see the above note by Dr. Baker for details. I have interviewed and examined the patient independently and I concur with the assessment and plan. The case was discussed on cardiology rounds and we reviewed the plan of care with the team and patient. Patient has no prior cardiac disease butdoes have cardiac risk factors who presents with new onset dyspnea above and beyond his baseline that he experiences from COPD. He had severe PND and orthopnea and some vague chest discomfort especially when lying down. He did not have significant wheezing, coughing, or hemoptysis. He denies any palpitations, syncope or near syncope. The patient was noted to be hypoxic, in sinus rhythm, with somedynamic EKG changes with subtle ST segment depressions in the lateral leads that have now resolved.Troponin has been elevated. Chest x-ray is consistent with pulmonary edema and interstitial markings with an elevated proBNP. On physical exam, I do not hear any murmur, although there is a soft S4 gallop, with JVP approximately 9-10 cm with mildly positive AJR. He has trace edema. The patient would benefit from diuresis, initiation of an ISHAN inhibitor or ARB, and depending on his LV function, low-dose beta-scottie as he appears to be clinical subset wet/warm pending a echocardiogram for LV function assessment. With his evidence of a non-STEMI, I would recommend proceeding with a right and left cardiac catheterization to better define his anatomy for possible revascularization, as well as his hemodynamics. If he has LV systolic dysfunction, he he may also be a candidate for MRA with spironolactone or eplerenone. If plavix not already given, consider holding until his anatomy is defined as he may have multivessel CAD. Active Hospital Problems Diagnosis Heart failure Acute Decompensated biventricular, L > R heart failure LV function to be determined Elevated proBNP NSTEMI with elevated Tn EKG: NSR with mild dynamic ST changes AHA/ACC stage C, NYHA FTC IIIB Non-ST elevation myocardial infarction (NSTEMI) Clinical symptoms: HF, no angina Dynamic ST changes Elevated Tn Normal QRS duration Anatomy: To be determined LV function: To be determined Hypertension COPD (chronic obstructive pulmonary disease) On chronic inhalers Stage 3 chronic kidney disease Resolved Hospital Problems No resolved problems to display. IPI Certification I certify that I am a [facility] credentialed attending provider with admitting privileges and that the patient meets or has met medical necessity to require an inpatient IPI level of care meeting a minimumof two midnights or is on the [facility] inpatient only procedure list (status C) due to:decompensated congestive heart failure requiring IV medication and fluid monitoring and NSTEMI worrisome for CAD. KATLYN AVILA MD Pager [phone] documented in this encounter Miscellaneous Notes * Care Management - Madina Morel RN - 02/26/2019 9:30 AM EDT In-patient CCM Education/assessment: Vaibhav is 68 year old who lives with Sancho in [place], [place] (near [place]). Has a history of COPD and was on Prednisone, when he experienced increased SOB; Going home today: purpose of visit to assess his knowledge on his heart status and provide teachingas to his care for his heart with medication mgmt, daily weight, 2gm Sodium diet and 2 L/day fluid intake, Symptoms of when to call. Patient understanding of diagnosis: States he know they took care of his blockages. What does diagnosis mean to you? Will need to be watching what he is eating now How do you feel about diagnosis? Just a big change in my life now What have your read/heard about? Learning style: Given information and instruction. Literacy assessment: (REALM-SF from [facility]) NA Supportive others: Sancho Barriers/Challenges: Denies any. Except hopes to have follow-ups in time closer to home Education completed: unknown: Retired, worked in [place], on [place] in a [employer] HF Self Care Management: Weights: Admit weight 219 and today 220lbs - no major shifts in weight while in. Sodium and Fluid Restrictions: Sticking to 2 gm sodium and 2 L. Day fluid intake Medications: See medication list Alcohol: Used too - will moderate Tobacco: None Exercise: Activity around the house - but will look to walk more regularly. VS monitoring: See record - Symptom Recognition: After review signs and symptoms to watch for, they both are able to list them. Teach Back Assessment: Provided the Red Folder with: The Heart Failure Toolkit; 2gm sodium diet andLog book. Pointed out particulars in each booklet and circled, provided cardiomyopathy card and phone number. Diagnosis: (Stage/Functional Class) Heart Failure Management: Yes/No No?/Discontinued/Why Beta scottie ISHAN/ARB Spironolactone AFIB? Anticoagulated Device Procedures (MVO2) HF Screenings: Sleep Study/CPAP/BiPap: NA Anemia: No Cognitive Assessment (SLUMS): Depression Screening (PHQ 2-9) Advanced Directives Cardiac Rehab plan: Palliative Care Consult: Heart Failure Assessment (labs) Sodium 135 Potassium 3.6 BUN 63 CREAT 2.06 Which is down from where it was running. Pro BNP 466 down from 5843 at admission Hemoglobin 11 Hematocrit 35.1 Troponin 0.12 Down from 0.22 Uric acid Albumin (? Pre albumin) TSH ferritin iron TIBC Iron sat Co Morbidities: * Plan of Care - Brittany Blackmon RN - 02/26/2019 5:23 AM EDT OUTCOME EVALUATION NOTE: OUTCOME SUMMARY: Vaibhav had a nika, sleeping between care. See flow sheet for VS, NSR on tele. assessment as documented. no complaints of chest pain or SOB. No reports of pain or discomfort this shift. Will continue to monitor. PLAN MOVING FORWARD: D.c home INDIVIDUALIZED FALL PREVENTION INTERVENTIONS: Patient-specific fall risk factors per assessment: [current deficits]: Unfamiliar environment, telemetry, generalized weakness, needs assistance OOB Assistance [level of assistance required for transfers and ambulation]: SBA, non-slip socks Supervision [direct monitoring required during toileting and ADLs]: Intermittent, Appropriate use of call chu, eyes on Surveillance [continuous indirect monitoring]: Purposeful hourly rounding, call chu in reach, roomkept free of obstacles, equipment monitor phototypesetting, alarms and settings reviewed q4 Patient-specific fall prevention interventions for sensory deficits provided, if applicable: Lighting adjusted for task/safety CPG GOAL OUTCOME EVALUATION: Ongoing * Consult Note - Yomaira Abad RN - 02/25/2019 1:36 PM EDT Cardiac Rehabilitation Inpatient Evaluation Primary Cardiac Diagnosis: NSTEMI, s/p RCA stent Cardiac Risk Factors: Smoking: no Overweight: yes Hyperlipidemia: yes Sedentary: yes HTN: yes Family history: no DM: no Stress: some Patient Education: Reviewed cardiac cath findings, implications of coronary artery disease, managing angina and risk factor modification with him and his . Mediterranean diet guidelines and weight management briefly reviewed. Given parameters for home exercise. He has a stationary bike . Sig Limited by leg/hip pain and MONTIEL Phase II Referral: Participation in the outpatient cardiac rehabilitation program at [facility] was discussed. Patient agrees to a referral to this program. The referral will be sent at discharge and the patient should be contacted by the Program within 1- 2 weeks from discharge. Activity Summary: By discharge, patient will be able to perform self care, walk 5-7 minutes and go up and down stairs without signs or symptoms of ischemia. Activity Baseline Response 5 min walk HR 54 63 BP 119/54 131/51 O2 Sat 94% RA 90% RA ECG nsr nsr Symptoms/Comments: slow pace needed 2 rest stops d/t leg pain [place] mod SOB with stable sat * Consult Note - Dilan Hill MD - 02/25/2019 12:12 PM EDT NEPHROLOGY CONSULT NOTE PATIENT: Vaibhav Guzmán : 1950 REASON FOR CONSULTATION: Non-oliguric CARLOS MANUEL HPI: This is a 68yo male with a history of HTN, HLD, alcohol abuse (quit 2016), and 50 pack-year smoking for whom we are consulted for non-oliguric CARLOS MANUEL. Patient was admitted on 02/21 for NSTEMI s/p cardiac cath with ERASMO to the RCA on 02/22. Patient initially presented 2 days prior to admission for dyspnea at rest which was thought to be COPD exacerbation. This was treated with a 10-day course of Prednisone and Doxycycline. Patient reported mild improvement in dyspnea however experienced orthopneaand substernal chest pressure which prompted him to return to the ED. In the ED the patient was hemodynamically stable and afebrile, however oxygenating in the high 80s on RA. Initial CXR showed pulmonary edema. Patient received IV Lasix 60mg TID on 02/22 then 80mg on 02/23 along with Metolazone 2.5mg daily with UOP>1.6L. Patient denies history of kidney disease. His baseline renal function is unknown. His initial serumCr was 1.9 which up trended and peaked at 3.17 on 02/24 and improved to 2.6 on the day of consultation. Patient has persistent BLE edema and takes Torsemide 20mg daily at home. Patient is restarted onTorsemide today at half the dose 10mg daily. At the time of exam the patient is on room air and appears comfortable. 1+ BLE noted. Past Medica History: HTN, HLD, COPD No past surgical history on file. Family History: Father - Throat cancer. Mother - COPD. Brother - unknown kidney disease. Social History: 50 pack-year smoking, quit 2 years ago. Alcohol abuse, quit 2 years ago. Denies recreational drug use. Outpatient medications: No current facility-administered medications on file prior to encounter. No current outpatient medications on file prior to encounter. MEDICATIONS: ??? torsemide 10 mg Oral Daily ??? rosuvastatin 20 mg Oral QPM ??? carvedilol 12.5 mg Oral BID WC ??? heparin (Porcine) 5,000 Units Subcutaneous 2 times per day ??? sodium chloride 0.9 % 5 mL Intravenous BID ??? ipratropium-albuterol 3 mL Nebulization Q6H ??? terazosin 1 mg Oral Nightly ??? amLODIPine 10 mg Oral Daily ??? polyethylene glycol (MIRALAX)oral powder 17 g Oral Daily ??? aspirin 81 mg Oral Daily ??? clopidogrel 75 mg Oral Daily ??? pantoprazole 40 mg Oral Daily No Known Allergies ROS: Constitutional - No fevers, chills, weight loss. Skin - No rash or pruritus. HEENT - No headaches, visual changes. Resp - No cough or wheezing. CV - No chest pain, palpitations, dizziness, orthopnea/PND. GI - No nausea, vomiting, abdominal pain, change in bowel habits or stool color. - No flank pain. No change in urine output. No dysuria or hematuria. Neuro - No focal weakness, numbness or tingling. PHYSICAL EXAM: Last value Range last 24 hrs Temperature Temp: 37 ??C (98.6 ??F) Temp: [36.4 ??C (97.5 ??F)-37 ??C (98.6 ??F)] Heart Rate Heart Rate: 53 Heart Rate: [50-64] Blood Pressure BP: 142/50 BP: (93-142)/(40-66) Respiratory Rate Resp: 18 Resp: [18-22] SpO2 SpO2: 96 % SpO2: [92 %-96 %] Appearance - Awake and alert. NAD. Obese. Skin - No exanthem or wound. HEENT - No sclera icterus. Moist oral mucosa. Chest - Lungs CTA. Heart - S1 and S2. RRR. No MRG. No JVD. Abd - Soft. Distended. Non-tender. Normal BS. - No flank tenderness. Ext - Warm extremities. No cyanosis. 1+ BLE edema. Neuro - Normal speech. Intake/Output Summary (Last 24 hours) at 02/25/2019 1212 Last data filed at 02/25/2019 1100 Gross per 24 hour Intake 1380 ml Output 1150 ml Net 230 ml Labs: CBC: Recent Labs 02/25/19 0433 02/24/19 0436 02/23/19 0403 WBC 12.2* 12.4* 13.4* HGB 11.0* 11.1* 10.5* PLATELET 339 343 350 Chemistry: Recent Labs 02/25/19 0433 02/24/19 1701 02/24/19 0436 NA 136 133* 137 K 3.9 4.5 3.7 CL 97* 93* 96* CO2 21* 22 24 BUN 66* 65* 52* CREATININE 2.61* 3.17* 2.60* GLUCOSE 105 91 117 Recent Labs 02/25/193 02/24/19 1701 02/24/196 02/23/19 0403 CALCIUM 8.5 8.5 9.0 < > 9.1 MAGNESIUM 1.09* -- 1.04 -- 0.93 < > = values in this interval not displayed. LFT's: No results for input(s): BILITOT, BILIDIR, ALBUMIN, ALKPHOS, ALT, AST in the last 7068 hours. IMPRESSION/ RECOMMENDATIONS: 1. Non-oliguric CARLOS MANUEL - Likely CHERY. Improving. No renal imaging available. Baseline renal function unknown. May have underlying CKD. - No indication for OYSTER OPENER. Continue conservative management. - Consider going back to the home Torsemide dose 20mg daily since the patient is still edematous. Monitor weight daily. Low-Na+ diet. - Will obtain UPC and perform microscopy. - Continue to hold ACEi/ARB until we have stable Cr. - Avoid NSAIDs and other nephrotoxins. - Monitor Is and Os. - Daily weight. We will continue to follow. Please call with any questions. 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 assessment as documented. no complaints of chest pain or SOB. No reports of pain or discomfort this shift. OOB with stand by assist. Will continue to monitor. PLAN MOVING FORWARD: Monitor lab values, fluid status INDIVIDUALIZED FALL PREVENTION INTERVENTIONS: Patient-specific fall risk factors per assessment: [current deficits]: Unfamiliar environment, telemetry, generalized weakness, needs assistance OOB Assistance [level of assistance required for transfers and ambulation]: SBA, non-slip socks Supervision [direct monitoring required during toileting and ADLs]: Intermittent, Appropriate use of call chu, eyes on Surveillance [continuous indirect monitoring]: Purposeful hourly rounding, call chu in reach, roomkept free of obstacles, equipment monitor phototypesetting, alarms and settings reviewed q4 Patient-specific fall prevention interventions for sensory deficits provided, if applicable: Lighting adjusted for task/safety CPG GOAL OUTCOME EVALUATION: Ongoing * Plan of Care - Joleen Vazquez RN - 02/24/2019 4:05 PM EDT Problem: Patient Care Overview Goal: Plan of Care Review 02/22/1941502/24/19811 Coping/Psychosocial Plan Of Care Reviewed With -- patient Plan of Care Review Progress progress toward functional goals is gradual -- OUTCOME EVALUATION NOTE: OUTCOME SUMMARY: SB on telemetry. 48-55. Coreg dosing decreased. Held diuretics. +Orthostatics. 500 IVF bolus given.Urine output low throughout the shift- MD Baker aware. Ambulated x2 around the unit. PLAN MOVING FORWARD: Monitor kidney function INDIVIDUALIZED FALL PREVENTION INTERVENTIONS: Patient-specific fall risk factors per assessment: [current deficits]: Orthostatic, wires Assistance [level of assistance required for transfers and ambulation]: IND/sb Supervision [direct monitoring required during toileting and ADLs]: ind Surveillance [continuous indirect monitoring]: Telemetry, purposeful rounding Patient-specific fall prevention interventions for sensory deficits provided, if applicable: [X] N/A CPG GOAL OUTCOME EVALUATION: Goal: Fall Prevention-Safe Patient Handling 02/23/19199902/24/19 08 Ramsey Fall Risk History of Falling -- 0 Secondary Diagnosis -- 15 Ambulatory Aids -- 0 Intravenous Therapy/Heparin/Saline Lock -- 20 Gait/Transferring -- 0 Mental Status -- 0 Score -- 35 OTHER Ramsey Fall Risk -- Med Restraint Interventions Safety Promotion/Fall Prevention -- nonskid shoes/slippers when out of bed;safety round/check completed Positioning Body Position -- independent Activity Activity Type -- activity adjusted per tolerance Activity Assistance Provided -- independent Assistive Device Utilized none -- Goal: Infection Control 02/24/19 0812 Safety Interventions Isolation Precautions standard precautions maintained Infection Prevention rest/sleep promoted;single patient room provided Coping Strategies Supportive Measures active listening utilized;verbalization of feelings encouraged;self-care encouraged;self-reflection promoted Goal: Discharge Needs Assessment 02/23/19 1735 Discharge Needs Assessment Concerns To Be Addressed no discharge needs identified Readmission Within The Last 30 Days no previous admission in last 30 days Discharge Disposition home or self-care Current Health Anticipated Changes Related to Illness none Living Environment Transportation Available car;family or friend will provide Problem: Cardiac: Heart Failure (Adult) Goal: Signs and Symptoms of Listed Potential Problems Will be Absent, Minimized or Managed (Cardiac: Heart Failure) Signs and symptoms of listed potential problems will be absent, minimized or managed by discharge/transition of care (reference Cardiac: Heart Failure (Adult) CPG). 02/24/19 1557 Cardiac: Heart Failure Problems Assessed (Heart Failure) all Problems Present (Heart Failure) fluid/electrolyte imbalance * Plan of Care - Anna Harrison RN - 02/24/2019 6:11 AM EDT Problem: Patient Care Overview Goal: Plan of Care Review 02/22/19 0416 02/23/191999 Coping/Psychosocial Plan Of Care Reviewed With -- patient Plan of Care Review Progress progress toward functional goals is gradual -- OUTCOME EVALUATION NOTE: OUTCOME SUMMARY: Pt did well overnight, slept through most of the night between care, reports the best night sleep since I have been here, feeling well this AM. Voiding in the urinal. Low HR, 40s-50s, blood pressure well controlled all night, somewhat higher this AM. Lungs dim but clear overnight, neb given before bed, refused 0200 neb. PLAN MOVING FORWARD: Continue to diurese and adjust medications, ? Home tomorrow INDIVIDUALIZED FALL PREVENTION INTERVENTIONS: Patient-specific fall risk factors per assessment: [current deficits]: Telemetry, cont pulse ox Assistance [level of assistance required for transfers and ambulation]: SBA Supervision [direct monitoring required during toileting and ADLs]: Eyes on Surveillance [continuous indirect monitoring]: Telemetry, cont pulse ox Patient-specific fall prevention interventions for sensory deficits provided, if applicable: Non skid socks when OOB, personal belongings within reach, purposeful rounding, room near nurses station CPG GOAL OUTCOME EVALUATION: Goal: Fall Prevention-Safe Patient Handling 02/23/191999 Ramsey Fall Risk History of Falling 0 Secondary Diagnosis 15 Ambulatory Aids 0 Intravenous Therapy/Heparin/Saline Lock 20 Gait/Transferring 0 Mental Status 0 Score 35 OTHER Ramsey Fall Risk Med Restraint Interventions Safety Promotion/Fall Prevention safety round/check completed;activity supervised;nonskid shoes/slippers when out of bed Positioning Body Position independent Activity Activity Type activity adjusted per tolerance;activity encouraged;ambulated in room Activity Assistance Provided assistance, stand-by Assistive Device Utilized none Goal: Infection Control 02/23/191999 Safety Interventions Isolation Precautions standard precautions maintained Infection Prevention rest/sleep promoted;single patient room provided;equipment surfaces disinfected Coping Strategies Supportive Measures active listening utilized;self-care encouraged Goal: Discharge Needs Assessment 02/23/195 Discharge Needs Assessment Concerns To Be Addressed no discharge needs identified Readmission Within The Last 30 Days no previous admission in last 30 days Discharge Disposition home or self-care Current Health Anticipated Changes Related to Illness none Living Environment Transportation Available car;family or friend will provide Problem: Cardiac: ACS (Acute Coronary Syndrome) (Adult) Goal: Signs and Symptoms of Listed Potential Problems Will be Absent, Minimized or Managed (Cardiac: ACS) Signs and symptoms of listed potential problems will be absent, minimized or managed by discharge/transition of care (reference Cardiac: ACS (Acute Coronary Syndrome) (Adult) CPG). 02/23/19 1735 Cardiac: ACS (Acute Coronary Syndrome) Problems Assessed (Acute Coronary Syndrome (ACS)) all Problems Present (Acute Coronary Syndrome (ACS)) none * Plan of Care - Joleen Vazquez RN - 02/23/2019 5:39 PM EDT Problem: Patient Care Overview Goal: Plan of Care Review 02/22/19 0416 02/23/19 0724 Coping/Psychosocial Plan Of Care Reviewed With -- patient Plan of Care Review Progress progress toward functional goals is gradual -- OUTCOME EVALUATION NOTE: OUTCOME SUMMARY: SB/SR on telemetry. Nitro drip weaned off this morning, losartan added to medication regime. 80 IVPlasix given. See progress note about ambulation this morning. Ambulated this evening 160 without chest pain or discomfort. Medication and diet education given. PLAN MOVING FORWARD: Diurese, mobilize INDIVIDUALIZED FALL PREVENTION INTERVENTIONS: Patient-specific fall risk factors per assessment: [current deficits]: wires Assistance [level of assistance required for transfers and ambulation]: IND Supervision [direct monitoring required during toileting and ADLs]: IND Surveillance [continuous indirect monitoring]: Telemetry, purposeful rounding Patient-specific fall prevention interventions for sensory deficits provided, if applicable: [X] N/A CPG GOAL OUTCOME EVALUATION: Goal: Fall Prevention-Safe Patient Handling 02/23/19 0724 Ramsey Fall Risk History of Falling 0 Secondary Diagnosis 15 Ambulatory Aids 0 Intravenous Therapy/Heparin/Saline Lock 20 Gait/Transferring 0 Mental Status 0 Score 35 OTHER Ramsey Fall Risk Med Restraint Interventions Safety Promotion/Fall Prevention safety round/check completed;nonskid shoes/slippers when out of bed Positioning Body Position independent Activity Activity Type activity adjusted per tolerance Activity Assistance Provided assistance, stand-by Assistive Device Utilized none Goal: Infection Control 02/23/19 07 Safety Interventions Isolation Precautions standard precautions maintained Infection Prevention single patient room provided;rest/sleep promoted Coping Strategies Supportive Measures active listening utilized;verbalization of feelings encouraged;self-care encouraged Goal: Discharge Needs Assessment 02/23/191734 Discharge Needs Assessment Concerns To Be Addressed no discharge needs identified Readmission Within The Last 30 Days no previous admission in last 30 days Discharge Disposition home or self-care Current Health Anticipated Changes Related to Illness none Living Environment Transportation Available car;family or friend will provide Problem: Cardiac: ACS (Acute Coronary Syndrome) (Adult) Goal: Signs and Symptoms of Listed Potential Problems Will be Absent, Minimized or Managed (Cardiac: ACS) Signs and symptoms of listed potential problems will be absent, minimized or managed by discharge/transition of care (reference Cardiac: ACS (Acute Coronary Syndrome) (Adult) CPG). 02/23/19 1735 Cardiac: ACS (Acute Coronary Syndrome) Problems Assessed (Acute Coronary Syndrome (ACS)) all Problems Present (Acute Coronary Syndrome (ACS)) none * Brief Op Note - Mehdi Rueda MD - 02/22/2019 4:13 PM EDT Preliminary Cardiac Catheterization Procedure Note: Patient Name: Vaibhav Guzmán : [id number] MR#: [id number] Case Date: 02/22/2019 Plant Propagator: * Mehdi Rueda MD - Primary * Eladio Preston MD - Fellow Preliminary Cardiac Catheterization Procedure Note: Procedure(s) performed: Coronary Angiography, Righ & Left Heart Cath, PCI-Stent Baseline Frailty Assessment: Definitions from [place] Study of Health and Aging Clinical Frailty Scale: 4-VULNERABLE A time-out was conducted prior to the start of the procedure to verify the correct patient and procedure, procedure location, and all relevant critical information. Access: Right Radial 6 FR SL, Right Brachial Vein 6 Fr SL Preliminary findings: Right Heart Hemodynamics RA: RV: 55/-/14 PA: 62/20/36 PCW: Coronary Angiography: Anatomically normal co-dominant circulation LMCA: 30% long tubular lesion LAD: Moderate diffuse LCx: Minimal luminal irregularities noted RCA: High grade proximal lesion LVEDP ~22 mmHg PCI-Stent Proximal RCA was treated by a single ERASMO (Synergy) with good angiographic result. Contrast: 86 ml Hemostasis: Right radial sheath was removed at case completion with hemostasis obtained with mechanical (TR Band) compression The patient tolerated the procedure well and was transferred from the cardiac catheterization lab to the CRU in stable condition without apparent complications. Full report to follow. MEHDI RUEDA MD criminology professor Pager [phone] * Initial Assessments - Mica Fregoso RN - 02/22/2019 2:55 PM EDT Office of Care Management Initial Assessment Mica Fregoso RN reviewed record and discussed patient with Care Team. Source of Information: CardiologyTeam, bedside nurse, chart review, interviewing patient and their family. Introduced self/reviewed role; services accepted. Reason for Hospitalization: <principal problem not specified> Per H&P note from Surekha Baker MD : Vaibhav Guzmán is a 68 y.o. male w/ a h/o COPD, HTN, CKD (baseline Cr 1.6), and prior tobaccoalcohol use presenting with worsening sob and chest pain. Presented to the ED 2 days ago and treated for COPD exacerbation with 10 days of prednisone and doxycycline, currently only taken 2 days worth of doses. Afterwards was feeling a little better in terms of breathing but noted it was difficult for him to lay flat comfortably. Had some chest pain that reminded him of heartburn when laying flat, no radiation at the time, has this type of pain almost every night. Also endorsed some substernal chest pressure at rest on Monday, resolved on it's own, no pain since then. Has never had pain like this before but was mild in nature. No past medical history on file. Hospitalizations Within the Past 30 Days: No [facility] admits in last 30 days. Anticipated Length Of Stay (If known): TBD Current Decision-Making Capacity: Patient is A&Ox4 Advance Care Planning: Full Code Not in EPIC. No. Discussed with patient importance and process for doing Advance Directives. Provided copy(ies) of [place] [employer] Advance Directives Taking Steps booklet with forms. If AD's have not been completed then spouse Sancho would be surrogate decision maker per [place] surrogate decision making law. Current Coping/Education/Information Needs: Current coping questions and concerns have been addressed. Current Functional Ability: SBA Functional Status Prior to Admission: independent with ADLs, driving, no DME used at baseline. Home Environment: lives in one level house with 4 steps to enter, no issues with steps per patient. [address] [facility] [address] Social & Family Supports/Community Resources: Lives with spouse Sancho Extended Emergency Contact Information Primary Emergency Contact: SANCHO GUZMÁN Address: [address] Relation: Spouse Health/Prescription Coverage: Primary Insurance: [employer] MANAGED MEDICARE Secondary Insurance: N/A Prescription Coverage: Yes Preferred Pharmacy: [facility] in [place], [place] Other: none Primary Care Provider: Bryant Watkins MD [phone] Patient/Caregiver Goals of Treatment: return home when medically ready Potential Needs for Transition of Care: Rehab/SNF: no Home Health: no DME: no Dialysis: no Community Resources: none Transportation: car by family Other: none Anticipated Barriers to Discharge/Special Considerations: none vs anticipated barriers to arise as hospitalization continues. Assessment: patient is admitted to cardiology service for CHF exacerbation, anticipated to discharge home with family support, no service needs anticipated. Plan: A member of the Care Management team will continue to monitor progress, follow for continuityof care and assist with transition of care planning. Mica Fregoso, RN Nurse Unit Leader Pager [phone] * Plan of Care - Dayan Gibbs RN - 02/22/2019 4:21 AM EDT Problem: Patient Care Overview Goal: Plan of Care Review Outcome: Ongoing (Interventions Implemented as Appropriate) 02/22/19 0416 Coping/Psychosocial Plan Of Care Reviewed With patient Plan of Care Review Progress progress toward functional goals is gradual OUTCOME EVALUATION NOTE: OUTCOME SUMMARY: SR on tele. 2L NC required when asleep, MD notified. No report of CP or SOB. Nitro gtt titrated to maintain sys BP <160. Heparin gtt continued per protocol. IV lasix given, see I/O. NPO since 0000. Slept between care. PLAN MOVING FORWARD: Control BP, Cath?, Continue to monitor INDIVIDUALIZED FALL PREVENTION INTERVENTIONS: Patient-specific fall risk factors per assessment: [current deficits]: Unfamiliar environment, tubes/cables Assistance [level of assistance required for transfers and ambulation]: SBA Supervision [direct monitoring required during toileting and ADLs]: Ind Surveillance [continuous indirect monitoring]: Tele, spo2, hourly rounding Patient-specific fall prevention interventions for sensory deficits provided, if applicable: [X] N/A CPG GOAL OUTCOME EVALUATION: Ongoing documented in this encounter Plan of Treatment Scheduled Orders Name Type Priority Associated Diagnoses Order Schedule Film Library- Storage Only DX Chest Imaging Storage Only Routine Once PRN (for Radiant use) for 1 Occurrences starting 02/22/2019 until 02/22/2019, 1 completed Film Library- Storage Only Ultrasound Study Imaging Storage Only Routine Once PRN (for Radiant use) for 1 Occurrences starting 02/22/2019 until 02/22/2019, 1 completed documented as of this encounter Procedures Procedure Name Priority Date/Time Associated Diagnosis Comments HEMOGRAM Routine 02/26/2019 4:59 AM EDT DIFFERENTIAL, AUTOMATED Routine 02/27/20 4:59 AM EDT CBC (WITH DIFF) Routine 02/26/2019 4:59 AM EDT PRO-BRAIN NATRIURETIC PEPTIDE Routine 02/26/2019 4:59 AM EDT MAGNESIUM Routine 02/26/2019 4:59 AM EDT BASIC METABOLIC PANEL Routine 02/26/2019 4:59 AM EDT HEMOGRAM Routine 02/25/2019 4:33 AM EDT DIFFERENTIAL, AUTOMATED Routine 02/26/20 19 4:33 AM EDT CBC (WITH DIFF) Routine 02/25/2019 4:33 AM EDT MAGNESIUM Routine 02/25/2019 4:33 AM EDT BASIC METABOLIC PANEL Routine 02/25/2019 4:33 AM EDT BASIC METABOLIC PANEL Routine 02/24/2019 5:01 PM EDT _URINALYSIS WITH MICRSOCOPIC Routine 02/24/2019 11:16 AM EDT UREA NITROGEN, URINE, RANDOM Routine 02/24/2019 11:16 AM EDT ELECTROLYTES, URINE, RANDOM Routine 02/24/2019 11:16 AM EDT CREATININE, URINE, RANDOM Routine 02/24/2019 11:16 AM EDT HEMOGRAM Routine 02/24/2019 4:36 AM EDT DIFFERENTIAL, AUTOMATED Routine 02/25/20 4:36 AM EDT CBC (WITH DIFF) Routine 02/24/2019 4:36 AM EDT PRO-BRAIN NATRIURETIC PEPTIDE Routine 02/24/2019 4:36 AM EDT MAGNESIUM Routine 02/24/2019 4:36 AM EDT BASIC METABOLIC PANEL Routine 02/24/2019 4:36 AM EDT BASIC METABOLIC PANEL Routine 02/23/2019 2:15 PM EDT EKG 12-LEAD STAT 02/23/2019 10:25 AM EDT Chronic systolic congestive heart failure HEMOGRAM Routine 02/23/2019 4:03 AM EDT DIFFERENTIAL, AUTOMATED Routine 02/24/20 19 4:03 AM EDT CBC (WITH DIFF) Routine 02/23/2019 4:03 AM EDT PRO-BRAIN NATRIURETIC PEPTIDE Routine 02/23/2019 4:03 AM EDT MAGNESIUM Routine 02/23/2019 4:03 AM EDT BASIC METABOLIC PANEL Routine 02/23/2019 4:03 AM EDT EKG 12-LEAD Routine 02/22/2019 4:33 PM EDT Non-ST elevation myocardial infarction (NSTEMI) CARDIAC CATHETERIZATION Routine 02/23/20 19 4:15 PM EDT HEPARIN (UNFRACTIONATED) LEVEL STAT 02/22/2019 12:05 PM EDT HEPARIN (UNFRACTIONATED) LEVEL STAT 02/22/2019 5:56 AM EDT HEMOGRAM Routine 02/22/2019 4:32 AM EDT DIFFERENTIAL, AUTOMATED Routine 02/23/20 19 4:32 AM EDT CBC (WITH DIFF) Routine 02/22/2019 4:32 AM EDT MAGNESIUM Routine 02/22/2019 4:32 AM EDT BASIC METABOLIC PANEL Routine 02/22/2019 4:32 AM EDT HEPARIN (UNFRACTIONATED) LEVEL STAT 02/21/2019 11:39 PM EDT TROPONIN STAT 02/21/2019 11:39 PM EDT CK Routine 02/21/2019 11:39 PM EDT HEPARIN (UNFRACTIONATED) LEVEL STAT 02/21/2019 5:45 PM EDT TROPONIN STAT 02/21/2019 5:45 PM EDT CK Routine 02/21/2019 5:45 PM EDT ECHO COMPLETE Routine 02/21/2019 2:17 PM EDT Chronic systolic congestive heart failure EKG 12-LEAD STAT 02/21/2019 12:26 PM EDT Chronic systolic congestive heart failure HEPARIN (UNFRACTIONATED) LEVEL Timed 02/21/2019 12:00 PM EDT POCT GLUCOSE Routine 02/21/2019 12:00 PM EDT SCAN, PERIPHERAL BLOOD Routine 9 12:00 PM EDT HEMOGRAM Routine 02/21/2019 12:00 PM EDT DIFFERENTIAL, AUTOMATED Routine 02/22/20 19 12:00 PM EDT CBC (WITH DIFF) Routine 02/21/2019 12:00 PM EDT TROPONIN STAT 02/21/2019 12:00 PM EDT TSH Routine 02/21/2019 12:00 PM EDT PRO-BRAIN NATRIURETIC PEPTIDE Routine 02/21/2019 12:00 PM EDT MAGNESIUM Routine 02/21/2019 12:00 PM EDT HEMOGLOBIN A1C Routine 02/21/2019 12:00 PM EDT CK Routine 02/21/2019 12:00 PM EDT BASIC METABOLIC PANEL Routine 02/21/2019 12:00 PM EDT FILM LIBRARY STORAGE ONLY ULTRASOUND STUDY Routine 02/21/2019 12:00 AM EDT FILM LIBRARY STORAGE ONLY DX CHEST Routine 02/19/2019 12:00 AM EDT documented in this encounter Results * (ABNORMAL) pro-Brain Natriuretic Peptide (02/26/2019 4:59 AM EDT) Pathologist [facility] NT-proBNP 466(H) <=125 pg/mL [facility] Blood specimen (specimen) Venous Draw / Unknown 02/26/2019 4:59 AM EDT 02/26/2019 5:54 AM EDT Narrative Resulting Agency Comment Spec In Lab Surekha Baker MD CHEMISTRY ORDERABLES Performing Organization Address City/State/[facility] Co de Phone Number [facility] [place] [address] * (ABNORMAL) Differential, Automated (02/26/2019 4:59 AM EDT) Pathologist [facility] Neutrophil % 69.0 % [facility] Neutrophil Absolute 7.87(H) 1.70 - 6.10 x10(3)/mc L [facility] Lymph % 18.8 % [facility] Lymphocytes Abs 2.2 0.9 - 3.2 x10(3)/mc L [facility] Monocyte % 8.4 % [facility] Monocyte Abs 1.0(H) 0.3 - 0.9 x10(3)/mc L [facility] Eos % 2.5 % [facility] Eosinophils Abs 0.3 0.0 - 0.4 x10(3)/[facility] Basophil % 0.3 % [facility] Baso Absolute 0.0 0.0 - 0.1 x10(3)/[facility] Immature Gran % 1.00 % [facility] Comment: Immature granulocytes(IG's)percentage and absolute count will include metamyelocytes, myelocytes, and promyelocytes. Blood smears from CBCs yielding IG's will be scanned manually for concordance. If this scan disagrees with the automated IG or if promyelocytes are noted, a manual differential will be performed. Immature Gran Absolute 0.11(H) 0.00 - 0.04 x10(3)/[facility] Blood specimen (specimen) 02/26/2019 4:59 AM EDT 02/26/2019 5:18 AM EDT Narrative Resulting Agency Comment Spec In Lab Fabiola Coronado MD HEMATOLOGY ORDERABLE S [facility] [place] [address] * (ABNORMAL) Hemogram (02/26/2019 4:59 AM EDT) White Blood Cell 11.4(H) 4.0 - 9.5 x10(3)/[facility] Red Blood Cell 5.72(H) 4.58 - 5.54 x10(6)/[facility] Hemoglobin 11.0(L) 13.7 - 16.5 gm/dL [facility] Hematocrit 35.1(L) 40.5 - 48.5 % [facility] Mean Cell Volume 61.4(L) 82.9 - 93.1 fL [facility] Mean Cell Hemoglobin 19.2(L) 27.5 - 32.1 pg [facility] Mean Cell Hemoglobin Concentration 31.3(L) 32.0 - 35.7 gm/dL [facility] Platelet 355 145 - 357 x10(3)/mc L [facility] RDW Standard Deviation 35.8(L) 36.0 - 45.0 fL [facility] RDW coefficient of variation 18.4(H) 11.4 - 13.8 % [facility] Mean Platelet Volume 9.1 7.6 - 12.9 fL [facility] NRBC% auto 0.0 % [facility] NRBC Absolute 0.000 0.000 - 0.000 x10(3)/mc L [facility] Blood specimen (specimen) 02/26/2019 4:59 AM EDT 02/26/2019 5:18 AM EDT Narrative Resulting Agency Comment Spec In Lab Fabiola Coronado MD HEMATOLOGY ORDERABLE S Performing Organization Address [facility]/ZIP Co de Phone Number [facility] [place] [address] * (ABNORMAL) Magnesium (02/26/2019 4:59 AM EDT) Magnesium 1.16(H) 0.69 - 1.07 mmol/L [facility] Blood specimen (specimen) 02/26/2019 4:59 AM EDT 02/26/2019 5:18 AM EDT Narrative Resulting Agency Comment Spec In Lab Hemant Diaz MD CHEMISTRY ORDERABLES Performing Organization Address [facility]/ZIP Co de Phone Number [facility] [place] [address] * (ABNORMAL) Basic Metabolic Panel (non-fasting) (02/26/2019 4:59 AM EDT) Glucose 108 65 - 199 mg/dL [facility] Comment:Diabetes: >=200 mg/d L plus symptoms Blood Urea Nitrogen 63(H) 10 - 20 mg/dL [facility] Creatinine 2.06(H) 0.80 - 1.50 mg/dL [facility] Sodium 135 135 - 145 mmol/L [facility] Potassium 3.6 3.5 - 5.0 mmol/L [facility] Comment: Please note: ??Patients with WBC >100,000 may have falsely elevated Potassium levels. ??For accurate Potassium quantification in these patients send serum separator tube (gold top) for subsequent determinations. ??Contact the Clinical Chemistry Laboratory if there are any questions. Chloride 97(L) 98 - 107 mmol/L [facility] Carbon Dioxide 24 22 - 31 mmol/L [facility] Anion Gap 14 5 - 15 mmol/L [facility] Calcium 9.0 8.5 - 10.5 mg/dL [facility] Est Glomerular Filtration Rate 33(L) >=60 mL/min/1. 73 m?? [facility] Comment: The eGFR was calculated using the CKD-EPI equation. As with all creatinine based estimates of kidney function, eGFR values calculated with the CKD-EPI equation are not accurate in patients with acute kidney failure, extremes of body mass or the acutely ill. [email or web address] eGFR 38(L) >=60 mL/min/1. 73 m?? [facility] Comment: The eGFR was calculated using the CKD-EPI equation. As with all creatinine based estimates of kidney function, eGFR values calculated with the CKD-EPI equation are not accurate in patients with acute kidney failure, extremes of body mass or the acutely ill. [email or web address] Blood specimen (specimen) 02/26/2019 4:59 AM EDT 02/26/2019 5:18 AM EDT Narrative Resulting Agency Comment Spec In Lab Hemant Diaz MD CHEMISTRY ORDERABLES [facility] [place] [address] * (ABNORMAL) Magnesium (02/25/2019 4:33 AM EDT) Magnesium 1.09(H) 0.69 - 1.07 mmol/L [facility] Blood specimen (specimen) Venous Draw / Unknown 02/25/2019 4:33 AM EDT 02/25/2019 5:23 AM EDT Narrative Resulting Agency Comment Spec In Lab Fabiola Coronado MD CHEMISTRY ORDERABLES [facility] [place] [address] * (ABNORMAL) Differential, Automated (02/25/2019 4:33 AM EDT) Neutrophil % 66.6 % [facility] Neutrophil Absolute 8.09(H) 1.70 - 6.10 x10(3)/ L [facility] Lymph % 20.8 % [facility] Lymphocytes Abs 2.5 0.9 - 3.2 x10(3)/[facility] Monocyte % 8.8 % [facility] Monocyte Abs 1.1(H) 0.3 - 0.9 x10(3)/ L [facility] Eos % 2.6 % [facility] Eosinophils Abs 0.3 0.0 - 0.4 x10(3)/[facility] Basophil % 0.2 % [facility] Baso Absolute 0.0 0.0 - 0.1 x10(3)/[facility] Immature Gran % 1.00 % [facility] Comment: Immature granulocytes(IG's)percentage and absolute count will include metamyelocytes, myelocytes, and promyelocytes. Blood smears from CBCs yielding IG's will be scanned manually for concordance. If this scan disagrees with the automated IG or if promyelocytes are noted, a manual differential will be performed. Immature Gran Absolute 0.12(H) 0.00 - 0.04 x10(3)/ L [facility] Blood specimen (specimen) 02/25/2019 4:33 AM EDT 02/25/2019 5:23 AM EDT Narrative Resulting Agency Comment Spec In Lab Fabiola Coronado MD HEMATOLOGY ORDERABLE S [facility] [place] [address] * (ABNORMAL) Hemogram (02/25/2019 4:33 AM EDT) White Blood Cell 12.2(H) 4.0 - 9.5 x10(3)/mc L [facility] Red Blood Cell 5.60(H) 4.58 - 5.54 x10(6)/mc L [facility] Hemoglobin 11.0(L) 13.7 - 16.5 gm/dL [facility] Hematocrit 34.7(L) 40.5 - 48.5 % [facility] Mean Cell Volume 62.0(L) 82.9 - 93.1 fL [facility] Mean Cell Hemoglobin 19.6(L) 27.5 - 32.1 pg [facility] Mean Cell Hemoglobin Concentration 31.7(L) 32.0 - 35.7 gm/dL [facility] Platelet 339 145 - 357 x10(3)/mc L [facility] RDW Standard Deviation 36.6 36.0 - 45.0 [facility] RDW coefficient of variation 18.4(H) 11.4 - 13.8 % [facility] Mean Platelet Volume 9.7 7.6 - 12.9 [facility] NRBC% auto 0.0 % [facility] NRBC Absolute 0.000 0.000 - 0.000 x10(3)/ L [facility] Blood specimen (specimen) 02/25/2019 4:33 AM EDT 02/25/2019 5:23 AM EDT Narrative Resulting Agency Comment Spec In Lab Fabiola Coronado MD HEMATOLOGY ORDERABLE S [facility] [place] [address] * (ABNORMAL) Basic Metabolic Panel (non-fasting) (02/25/2019 4:33 AM EDT) Glucose 105 65 - 199 mg/dL [facility] Comment:Diabetes: >=200 mg/d L plus symptoms Blood Urea Nitrogen 66(H) 10 - 20 mg/dL [facility] Creatinine 2.61(H) 0.80 - 1.50 mg/dL [facility] Sodium 136 135 - 145 mmol/L [facility] Potassium 3.9 3.5 - 5.0 mmol/L [facility] Comment: Please note: ??Patients with WBC >100,000 may have falsely elevated Potassium levels. ??For accurate Potassium quantification in these patients send serum separator tube (gold top) for subsequent determinations. ??Contact the Clinical Chemistry Laboratory if there are any questions. Chloride 97(L) 98 - 107 mmol/L [facility] Carbon Dioxide 21(L) 22 - 31 mmol/L [facility] Anion Gap 18(H) 5 - 15 mmol/L [facility] Calcium 8.5 8.5 - 10.5 mg/dL [facility] Est Glomerular Filtration Rate 24(L) >=60 mL/min/1. 73 m?? [facility] Comment: The eGFR was calculated using the CKD-EPI equation. As with all creatinine based estimates of kidney function, eGFR values calculated with the CKD-EPI equation are not accurate in patients with acute kidney failure, extremes of body mass or the acutely ill. [email or web address] eGFR 28(L) >=60 mL/min/1. 73 m?? [facility] Comment: The eGFR was calculated using the CKD-EPI equation. As with all creatinine based estimates of kidney function, eGFR values calculated with the CKD-EPI equation are not accurate in patients with acute kidney failure, extremes of body mass or the acutely ill. [email or web address] Blood specimen (specimen) 02/25/2019 4:33 AM EDT 02/25/2019 5:23 AM EDT Narrative Resulting Agency Comment Spec In Lab Hemant Diaz MD CHEMISTRY ORDERABLES [facility] [place] [address] * (ABNORMAL) Basic Metabolic Panel (non-fasting) (02/24/2019 5:01 PM EDT) Glucose 91 65 - 199 mg/dL [facility] Comment:Diabetes: >=200 mg/d L plus symptoms Blood Urea Nitrogen 65(H) 10 - 20 mg/dL [facility] Creatinine 3.17(H) 0.80 - 1.50 mg/dL [facility] Sodium 133(L) 135 - 145 mmol/L [facility] Potassium 4.5 3.5 - 5.0 mmol/L [facility] Comment: Please note: ??Patients with WBC >100,000 may have falsely elevated Potassium levels. ??For accurate Potassium quantification in these patients send serum separator tube (gold top) for subsequent determinations. ??Contact the Clinical Chemistry Laboratory if there are any questions. Chloride 93(L) 98 - 107 mmol/L [facility] Carbon Dioxide 22 22 - 31 mmol/L [facility] Anion Gap 18(H) 5 - 15 mmol/L [facility] Calcium 8.5 8.5 - 10.5 mg/dL [facility] Est Glomerular Filtration Rate 19(L) >=60 mL/min/1. 73 m?? [facility] Comment: The eGFR was calculated using the CKD-EPI equation. As with all creatinine based estimates of kidney function, eGFR values calculated with the CKD-EPI equation are not accurate in patients with acute kidney failure, extremes of body mass or the acutely ill. [email or web address] eGFR 22(L) >=60 mL/min/1. 73 m?? [facility] Comment: The eGFR was calculated using the CKD-EPI equation. As with all creatinine based estimates of kidney function, eGFR values calculated with the CKD-EPI equation are not accurate in patients with acute kidney failure, extremes of body mass or the acutely ill. [email or web address] Blood specimen (specimen) 02/24/2019 5:01 PM EDT 02/24/2019 5:15 PM EDT Narrative Resulting Agency Comment Spec In Lab Hemant Diaz MD CHEMISTRY ORDERABLES Performing Organization Address City/[facility]/ZIP Co de Phone Number [facility] [place] [address] * Urea nitrogen, urine, random (02/24/2019 11:16 AM EDT) Urea Nitrogen, Urine 483 mg/dL [facility] Urine specimen (specimen) 02/24/2019 11:16 AM EDT 02/24/2019 2:51 PM EDT Narrative Resulting Agency Comment Spec In Lab Hemant Diaz MD URINE ORDERABLES Performing Organization Address [facility] Co de Phone Number [facility] [place] [address] * Creatinine, urine, random (02/24/2019 11:16 AM EDT) Creatinine, Urine 220 mg/dL [facility] Urine specimen (specimen) 02/24/2019 11:16 AM EDT 02/24/2019 2:51 PM EDT Narrative Resulting Agency Comment Spec In Lab Hemant Diaz MD URINE ORDERABLES Performing Organization Address [facility] Co de Phone Number [facility] [place] [address] * Electrolytes, urine, random (02/24/2019 11:16 AM EDT) Sodium, Urine 60 mmol/L [facility] Potassium, Urine 52 mmol/L [facility] Chloride, Urine 29 mmol/L [facility] Urine specimen (specimen) 02/24/2019 11:16 AM EDT 02/24/2019 2:51 PM EDT Narrative Resulting Agency Comment Spec In Lab Hemant Diaz MD URINE ORDERABLES [facility] [place] [address] * (ABNORMAL) _Urinalysis with microscopic (02/24/2019 11:16 AM EDT) Glucose, Urine Dipstick Negative Negative mg/dL [facility] Protein, Urine Dipstick 100(A) Negative mg/dL [facility] Bilirubin, Urine Dipstick Negative Negative mg/dL [facility] Comment: Clinical correlation required for positive Urine Bilirubin results as false positive may occur with some drugs and drug related products. If a false positive is suspected a serum total bilirubin should be considered if clinically indicated. Urobilinogen, Urine Dipstick Normal Normal mg/dL [facility] pH, Urn (dipstick) 5.0 5.0 - 8.0 [facility] Blood, Urine Dipstick Negative Negative mg/dL [facility] Ketone, Urine Dipstick Negative Negative mg/dL [facility] Nitrite, Urine Dipstick Negative Negative [facility] Leukocytes, Urine Dipstick Moderate(A) Negative [facility] Appearance, Urine Dipstick Clear Clear [facility] Specific [place] Urine Automated 1.018 1.002 - 1.030 [facility] Color, Urine Dipstick Yellow Yellow [facility] RBC, Urine 1 0 - 3 /HPF [facility] WBC, Urine 60(H) 0 - 3 /HPF [facility] Bacteria, Urine Moderate(A) None /HPF [facility] Squamous Epithelial Cells Raw Data, Urine 3 <=4 /HPF [facility] Hyaline Casts, Urine 19(H) 0 - 2 /LPF [facility] Urine specimen (specimen) 02/24/2019 11:16 AM EDT 02/24/2019 2:51 PM EDT Narrative Resulting Agency Comment Spec In Lab Hemant Diaz MD URINE ORDERABLES [facility] [place] [address] * (ABNORMAL) Differential, Automated (02/24/2019 4:36 AM EDT) Neutrophil % 64.8 % [facility] Neutrophil Absolute 8.05(H) 1.70 - 6.10 x10(3)/mc L [facility] Lymph % 22.8 % [facility] Lymphocytes Abs 2.8 0.9 - 3.2 x10(3)/ L [facility] Monocyte % 9.4 % [facility] Monocyte Abs 1.2(H) 0.3 - 0.9 x10(3)/mc L [facility] Eos % 1.8 % [facility] Eosinophils Abs 0.2 0.0 - 0.4 x10(3)/ L [facility] Basophil % 0.3 % [facility] Baso Absolute 0.0 0.0 - 0.1 x10(3)/mc L [facility] Immature Gran % 0.90 % [facility] Comment: Immature granulocytes(IG's)percentage and absolute count will include metamyelocytes, myelocytes, and promyelocytes. Blood smears from CBCs yielding IG's will be scanned manually for concordance. If this scan disagrees with the automated IG or if promyelocytes are noted, a manual differential will be performed. Immature Gran Absolute 0.11(H) 0.00 - 0.04 x10(3)/mc L [facility] Blood specimen (specimen) 02/24/2019 4:36 AM EDT 02/24/2019 4:52 AM EDT Narrative Resulting Agency Comment Spec In Lab Fabiola Coronado MD HEMATOLOGY ORDERABLE S [facility] [place] [address] * (ABNORMAL) Hemogram (02/24/2019 4:36 AM EDT) White Blood Cell 12.4(H) 4.0 - 9.5 x10(3)/mc L [facility] Red Blood Cell 5.78(H) 4.58 - 5.54 x10(6)/mc L [facility] Hemoglobin 11.1(L) 13.7 - 16.5 gm/dL [facility] Hematocrit 35.7(L) 40.5 - 48.5 % [facility] Mean Cell Volume 61.8(L) 82.9 - 93.1 [facility] Mean Cell Hemoglobin 19.2(L) 27.5 - 32.1 pg [facility] Mean Cell Hemoglobin Concentration 31.1(L) 32.0 - 35.7 gm/dL [facility] Platelet 343 145 - 357 x10(3)/mc L [facility] RDW Standard Deviation 36.6 36.0 - 45.0 [facility] RDW coefficient of variation 18.1(H) 11.4 - 13.8 % [facility] Mean Platelet Volume 9.4 7.6 - 12.9 [facility] NRBC% auto 0.2 % [facility] NRBC Absolute 0.030(H) 0.000 - 0.000 x10(3)/mc L [facility] Blood specimen (specimen) 02/24/2019 4:36 AM EDT 02/24/2019 4:52 AM EDT Narrative Resulting Agency Comment Spec In Lab Fabiola Coronado MD HEMATOLOGY ORDERABLE S [facility] [place] [address] * (ABNORMAL) Basic Metabolic Panel (non-fasting) (02/24/2019 4:36 AM EDT) Glucose 117 65 - 199 mg/dL [facility] Comment:Diabetes: >=200 mg/d L plus symptoms Blood Urea Nitrogen 52(H) 10 - 20 mg/dL [facility] Creatinine 2.60(H) 0.80 - 1.50 mg/dL [facility] Sodium 137 135 - 145 mmol/L [facility] Potassium 3.7 3.5 - 5.0 mmol/L [facility] Comment: Please note: ??Patients with WBC >100,000 may have falsely elevated Potassium levels. ??For accurate Potassium quantification in these patients send serum separator tube (gold top) for subsequent determinations. ??Contact the Clinical Chemistry Laboratory if there are any questions. Chloride 96(L) 98 - 107 mmol/L [facility] Carbon Dioxide 24 22 - 31 mmol/L [facility] Anion Gap 17(H) 5 - 15 mmol/L [facility] Calcium 9.0 8.5 - 10.5 mg/dL [facility] Est Glomerular Filtration Rate 25(L) >=60 mL/min/1. 73 m?? [facility] Comment: The eGFR was calculated using the CKD-EPI equation. As with all creatinine based estimates of kidney function, eGFR values calculated with the CKD-EPI equation are not accurate in patients with acute kidney failure, extremes of body mass or the acutely ill. [email or web address] eGFR 29(L) >=60 mL/min/1. 73 m?? [facility] Comment: The eGFR was calculated using the CKD-EPI equation. As with all creatinine based estimates of kidney function, eGFR values calculated with the CKD-EPI equation are not accurate in patients with acute kidney failure, extremes of body mass or the acutely ill. [email or web address] Blood specimen (specimen) 02/24/2019 4:36 AM EDT 02/24/2019 4:52 AM EDT Narrative Resulting Agency Comment Spec In Lab Hemant Diaz MD CHEMISTRY ORDERABLES Performing Organization Address [facility] Co de Phone Number [facility] [place] [address] * (ABNORMAL) pro-Brain Natriuretic Peptide (02/24/2019 4:36 AM EDT) NT-proBNP 816(H) <=125 pg/mL [facility] Blood specimen (specimen) 02/24/2019 4:36 AM EDT 02/24/2019 4:52 AM EDT Narrative Resulting Agency Comment Spec In Lab Hemant Diaz MD CHEMISTRY ORDERABLES Performing Organization Address [facility] Co de Phone Number [facility] [place] [address] * Magnesium (02/24/2019 4:36 AM EDT) Magnesium 1.04 0.69 - 1.07 mmol/L [facility] Blood specimen (specimen) 02/24/2019 4:36 AM EDT 02/24/2019 4:52 AM EDT Narrative Resulting Agency Comment Spec In Lab Hemant Diaz MD CHEMISTRY ORDERABLES Performing Organization Address [facility] Co de Phone Number [facility] [place] [address] * (ABNORMAL) Basic Metabolic Panel (non-fasting) (02/23/2019 2:15 PM EDT) Glucose 127 65 - 199 mg/dL [facility] Comment:Diabetes: >=200 mg/d L plus symptoms Blood Urea Nitrogen 44(H) 10 - 20 mg/dL [facility] Creatinine 2.27(H) 0.80 - 1.50 mg/dL [facility] Sodium 135 135 - 145 mmol/L [facility] Potassium 3.9 3.5 - 5.0 mmol/L [facility] Comment: Please note: ??Patients with WBC >100,000 may have falsely elevated Potassium levels. ??For accurate Potassium quantification in these patients send serum separator tube (gold top) for subsequent determinations. ??Contact the Clinical Chemistry Laboratory if there are any questions. Chloride 94(L) 98 - 107 mmol/L [facility] Carbon Dioxide 24 22 - 31 mmol/L [facility] Anion Gap 17(H) 5 - 15 mmol/L [facility] Calcium 9.0 8.5 - 10.5 mg/dL [facility] Est Glomerular Filtration Rate 29(L) >=60 mL/min/1. 73 m?? [facility] Comment: The eGFR was calculated using the CKD-EPI equation. As with all creatinine based estimates of kidney function, eGFR values calculated with the CKD-EPI equation are not accurate in patients with acute kidney failure, extremes of body mass or the acutely ill. [email or web address] eGFR 34(L) >=60 mL/min/1. 73 m?? [facility] Comment: The eGFR was calculated using the CKD-EPI equation. As with all creatinine based estimates of kidney function, eGFR values calculated with the CKD-EPI equation are not accurate in patients with acute kidney failure, extremes of body mass or the acutely ill. [email or web address] Blood specimen (specimen) 02/23/2019 2:15 PM EDT 02/23/2019 2:20 PM EDT Narrative Resulting Agency Comment Spec In Lab Hemant Diaz MD CHEMISTRY ORDERABLES [facility] [place] [address] * EKG 12 Lead (02/23/2019 10:25 AM EDT) Ventricular rate 54 BPM MUSE SYSTEM Atrial Rate 54 BPM MUSE SYSTEM P-R Interval 178 ms MUSE SYSTEM QRS Duration 104 ms MUSE SYSTEM Q-T Interval 460 ms MUSE SYSTEM QTC Calculated (Bezet) 436 ms MUSE SYSTEM Calculated P [place] 87 degrees MUSE SYSTEM Calculated R [place] 27 degrees MUSE SYSTEM Calculated T [place] 63 degrees MUSE SYSTEM INTERPRETATION Sinus bradycardia Otherwise normal ECG When compared with ECG of 22-FEB-2019 16:33, (unconfirmed) Vent. rate has decreased BY ??33 BPM Nonspecific T wave abnormality no longer evident in Inferior leads Confirmed by SENDY, ??JERDO DANGELO ([id number]) on 02/23/2019 6:23:59 PM MUSE SYSTEM 02/23/2019 10:2 5 AM EDT 02/23/2019 6:23 PM EDT Hemant Diaz MD ECG ORDERABLES Performing Organization Address City/[facility]/ZIP Co de Phone Number MUSE SYSTEM * (ABNORMAL) pro-Brain Natriuretic Peptide (02/23/2019 4:03 AM EDT) [facility] NT-proBNP 1,461(H) <=125 pg/mL [facility] Blood specimen (specimen) Venous Draw / Unknown 02/23/2019 4:03 AM EDT 02/23/2019 5:03 AM EDT Narrative Resulting Agency Comment Spec In Lab Fabiola Coronado MD CHEMISTRY ORDERABLES Performing Organization Address City/[facility]/ZIP Co de Phone Number [facility] [place] [address] * (ABNORMAL) Differential, Automated (02/23/2019 4:03 AM EDT) [facility] Neutrophil % 70.7 % [facility] Neutrophil Absolute 9.51(H) 1.70 - 6.10 x10(3)/mc L [facility] Lymph % 19.7 % [facility] Lymphocytes Abs 2.6 0.9 - 3.2 x10(3)/mc L [facility] Monocyte % 7.8 % [facility] Monocyte Abs 1.0(H) 0.3 - 0.9 x10(3)/mc L [facility] Eos % 0.5 % [facility] Eosinophils Abs 0.1 0.0 - 0.4 x10(3)/[facility] Basophil % 0.3 % [facility] Baso Absolute 0.0 0.0 - 0.1 x10(3)/[facility] Immature Gran % 1.00 % [facility] Comment: Immature granulocytes(IG's)percentage and absolute count will include metamyelocytes, myelocytes, and promyelocytes. Blood smears from CBCs yielding IG's will be scanned manually for concordance. If this scan disagrees with the automated IG or if promyelocytes are noted, a manual differential will be performed. Immature Gran Absolute 0.13(H) 0.00 - 0.04 x10(3)/[facility] Blood specimen (specimen) 02/23/2019 4:03 AM EDT 02/23/2019 4:16 AM EDT Narrative Resulting Agency Comment Spec In Lab Surekha Baker MD HEMATOLOGY ORDERABLE S [facility] [place] [address] * (ABNORMAL) Hemogram (02/23/2019 4:03 AM EDT) White Blood Cell 13.4(H) 4.0 - 9.5 x10(3)/[facility] Red Blood Cell 5.50 4.58 - 5.54 x10(6)/[facility] Hemoglobin 10.5(L) 13.7 - 16.5 gm/dL [facility] Hematocrit 33.5(L) 40.5 - 48.5 % [facility] Mean Cell Volume 60.9(L) 82.9 - 93.1 fL [facility] Mean Cell Hemoglobin 19.1(L) 27.5 - 32.1 pg [facility] Mean Cell Hemoglobin Concentration 31.3(L) 32.0 - 35.7 gm/dL [facility] Platelet 350 145 - 357 x10(3)/mc L [facility] RDW Standard Deviation 37.0 36.0 - 45.0 fL [facility] RDW coefficient of variation 18.3(H) 11.4 - 13.8 % [facility] Mean Platelet Volume 9.1 7.6 - 12.9 fL [facility] NRBC% auto 0.2 % [facility] NRBC Absolute 0.030(H) 0.000 - 0.000 x10(3)/mc L [facility] Blood specimen (specimen) 02/23/2019 4:03 AM EDT 02/23/2019 4:16 AM EDT Narrative Resulting Agency Comment Spec In Lab Surekha Baker MD HEMATOLOGY ORDERABLE S [facility] [place] [address] * (ABNORMAL) Basic Metabolic Panel (non-fasting) (02/23/2019 4:03 AM EDT) Glucose 106 65 - 199 mg/dL [facility] Comment:Diabetes: >=200 mg/d L plus symptoms Blood Urea Nitrogen 38(H) 10 - 20 mg/dL [facility] Creatinine 1.94(H) 0.80 - 1.50 mg/dL [facility] Sodium 139 135 - 145 mmol/L [facility] Potassium 3.6 3.5 - 5.0 mmol/L [facility] Comment: Please note: ??Patients with WBC >100,000 may have falsely elevated Potassium levels. ??For accurate Potassium quantification in these patients send serum separator tube (gold top) for subsequent determinations. ??Contact the Clinical Chemistry Laboratory if there are any questions. Chloride 98 98 - 107 mmol/L [facility] Carbon Dioxide 25 22 - 31 mmol/L [facility] Anion Gap 16(H) 5 - 15 mmol/L [facility] Calcium 9.1 8.5 - 10.5 mg/dL [facility] Est Glomerular Filtration Rate 35(L) >=60 mL/min/1. 73 m?? [facility] Comment: The eGFR was calculated using the CKD-EPI equation. As with all creatinine based estimates of kidney function, eGFR values calculated with the CKD-EPI equation are not accurate in patients with acute kidney failure, extremes of body mass or the acutely ill. [email or web address] eGFR 41(L) >=60 mL/min/1. 73 m?? [facility] Comment: The eGFR was calculated using the CKD-EPI equation. As with all creatinine based estimates of kidney function, eGFR values calculated with the CKD-EPI equation are not accurate in patients with acute kidney failure, extremes of body mass or the acutely ill. [email or web address] Blood specimen (specimen) 02/23/2019 4:03 AM EDT 02/23/2019 4:16 AM EDT Narrative Resulting Agency Comment Spec In Lab Hemant Diaz MD CHEMISTRY ORDERABLES Performing Organization Address City/[facility]/ZIP Co de Phone Number [facility] [place] [address] * Magnesium (02/23/2019 4:03 AM EDT) Magnesium 0.93 0.69 - 1.07 mmol/L [facility] Blood specimen (specimen) 02/23/2019 4:03 AM EDT 02/23/2019 4:16 AM EDT Narrative Resulting Agency Comment Spec In Lab Hemant Diaz MD CHEMISTRY ORDERABLES Performing Organization Address City/[facility]/ZIP Co de Phone Number [facility] [place] [address] * EKG 12 Lead (02/22/2019 4:33 PM EDT) Ventricular rate 87 BPM MUSE SYSTEM Atrial Rate 87 BPM MUSE SYSTEM P-R Interval 164 ms MUSE SYSTEM QRS Duration 102 ms MUSE SYSTEM Q-T Interval 396 ms MUSE SYSTEM QTC Calculated (Bezet) 476 ms MUSE SYSTEM Calculated P [place] 103 degrees MUSE SYSTEM Calculated R [place] 52 degrees MUSE SYSTEM Calculated T [place] 24 degrees MUSE SYSTEM INTERPRETATION Normal sinus rhythm Normal ECG Confirmed by SENDY, ??JEROD DANGELO ([id number]) on 02/23/2019 6:23:38 PM MUSE SYSTEM 02/22/2019 4:33 PM EDT 02/23/2019 6:23 PM EDT Mehdi Logan MD ECG ORDERABLES MUSE SYSTEM * CARDIAC CATHETERIZATION (02/22/2019 4:15 PM EDT) Anatomical Region Laterality Modality Other Narrative 02/22/2019 4:54 PM EDT ?[facility] ? Cardiac Catheterization/Intervention Report ? Patient Name: Pupino, Vaibhav ? Procedure Date: 02/22/2019 ? A #: [id number] ? Primary Physician: Mehdi Rueda V ? Case #: [id number] ? File Name: [id number] ? Catheterization Order Number: [id number] ? [facility] ? Final Report [place], [place] ? Patient Name: ? Vaibhav Guzmán ? ID#: ?[id number] ? : ?1950 ? Procedure Date: ? February 22, 2019 ? Case #: ? [id number] ? Room: ? 2 ? Case Physician: ? Mehdi Rueda, M.D. ? Start: ?15:03 ?Fellow: ? Eladio Preston M.D. ?Admission: ??02/21/2019 ? Referring Physician: ??Bryant Watkins M.D. ? Procedures: ?* Coronary Angiography ?* Left Heart Catheterization ?* Right Heart Catheterization ?* Oximetry ?* Coronary Stent Insertion ? History ?Vaibhav Guzmán is a 68 year old man. He has hypertension and a family ?history of coronary artery disease. The patient's smoking status is ?Former. He also has hypercholesterolemia managed with lipid therapy. ?Prior to the initiation of this procedure, the patient was designated as ?ASA Class III. The CSHA clinical frailty scale is 4. Vulnerable. ? Diagnostic Tests: ?Prior Coronary Angiography: ? LV ejection fraction within 6 months is 75%. ?Medications Prior to Procedure: ? ASA and Statin. ? Indications for Diagnostic Cath: ?The priority of the diagnostic procedure was Urgent. The indication for ?the lab instructor visit is ACS greater than 24 hrs, worsening angina and ?suspected CAD. Chest pain symptom assessment was: Typical Angina. ? Technique: ?A 6Fr sheath was inserted in the right radial artery utilizing the ?Seldinger technique. A 6Fr sheath was inserted in the right median ?antecubital vein utilizing the Seldinger technique. The left coronary ?artery was injected utilizing a 5Fr JL 3.5 catheter. A 5Fr JR 4 catheter ?was used to inject the right coronary artery. Right heart catheterization ?was performed utilizing a 6Fr BALLOON WEDGE catheter. Coronary stent ?insertion was performed and the equipment utilized will be described in ?the intervention summary section. 7,000 units of heparin were ?administered. A total of 100cc of Omnipaque were opened, 86cc of ?Omnipaque were administered and 14cc of Omnipaque were wasted. Radiation: ?Fluoro time was 11.0 minutes, dose area product was 151,589 mGYcm2 and ?air kerma was 2,563 mGY. See the case log for additional details. ?The patient received the following medications prior to and during the ?procedure: ? Unfractionated Heparin. ? Hemodynamics: ?Right Heart Pressures ? Hemodynamics: ? Syst Diast ? EDP ?a ?v ? m ?RA ? 16 ?13 ?11 ?RV 55 ?14 ?PA 62 ?20 ?36 ?PCW ?20 ?19 ?19 ? Hemodynamic Profile: ?Profile 1 ?CO ? 6.43 ?CI ? 3.03 ?TSR ? 1,443 ?SVR ? 1,306 ?TPR ?448 ?PVR ?212 ?Technique ?Estimated Herb ?Left Heart Pressures ? Resting: ? Syst Diast ? EDP ?a ?v ? m ?Ao 177 ?? 76 ?116 ?LV 175 ? 23 ? Oximetry: ?Location ? %Sat ?Location ?%Sat ?Superior Vena Cava ? 55.0 ?Right Pulmonary ? 59.0 ? Artery ?Peripheral Arterial ?90.0 ? Coronary Angiography: ?Dominance: Co-dominant ?Left Main ? The left main was normal, free of disease. ?Left Anterior Descending ? There was a 35% calcified long segmental stenosis of the proximal ? segment of the left anterior descending artery (LAD). ??The LAD was ? large. ?Left Circumflex ? There was mild diffuse (<=25% stenosis) disease of the entire vessel ? segment of the left circumflex artery (LCX). ??The LCX was large. ?Right Coronary Artery ? There was a 75% long segmental stenosis of the proximal segment of ? the right coronary artery (RCA). ??The RCA was large. ?Ramus ? There was mild diffuse (<=25% stenosis) disease of the entire vessel ? segment of the ramus. ??The ramus was small. ? 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 The priority for the procedure was Urgent. The NCDR indication ?for the procedure was NSTE-ACS. LVEF within one week was 75%. Right Heart ?catheterization was initiated for Hypertensive heart disease with heart ?failure (I11.0). ? Intervention Summary: ?Right Coronary Artery ? Proximal 75% ? Stent insertion was performed on the 75% stenosis in the ? proximal segment of the RCA. This was a de yoandy lesion. ? According to the ACC/AHA classification system, this lesion ? was a type B2 high risk lesion. Primary prevention of ? restenosis was the indication for stent insertion. This was ? the culprit lesion. A guidewire was placed across this lesion. ? Vessel flow pre intervention was ROLANDO 3. Lesion length was ? 12mm. ? Stent insertion was accomplished through a 6 Fr. JR 4 guide. ? The lesion was predilated with a 2.50mm TREK 20 MM balloon ? with a maximum inflation pressure of 12 atmospheres. ??A ? premounted 3.00 x 24 mm Synergy (ERASMO) was deployed with a ? maximum inflation pressure of 16 atmospheres. ??Following stent ? deployment, the lesion was dilated using a 3.25mm NC EUPHORA ? 20 MM balloon with a maximum inflation pressure of 18 ? atmospheres. ? The final outcome was defined as successful. There was no ? residual stenosis following this intervention. The final ROLANDO ? flow was 3. ? Vascular Access: ?Vascular Access Management: ? Manual Compression of the right median antecubital vein access site ? was performed. ? Mechanical Compression of the right radial artery access site was ? performed. ? Dual Antiplatelet (DAPT) Recommendations: ?Drug eluting stent (ERASMO) inserted. ?P2Y12 Loading dose administered prior to arrival in the lab instructor. ?Recommend continuing clopidogrel 75 mg PO daily for 12 months. ??Recommend ?continuing aspirin 81 mg unless intolerant. ? Conclusions: ?* One vessel coronary artery disease (RCA) ?* Moderate pulmonary hypertension ?* Elevated pulmonary capillary wedge pressure ?* Elevated left ventricular end diastolic pressure ?* Successful stent insertion of the proximal RCA lesion ?* Recommend continuing clopidogrel 75 mg PO daily for 12 months (see DAPT ?Recommendations above for more information.) ? Complications/Events: ?The patient had no complications during these procedures. ?The attending physician was present for the entire procedure. ?Dr. Mehdi Rueda M.D. was present during the moderate sedation ?intraservice time as documented by the sedation nurse. ??Case time = 01:05. ?Dr. Mehdi Rueda M.D. performed the coronary angiography, left heart ?catheterization, right heart catheterization, oximetry and stent ?insertion-coronary. ? Mehdi Rueda M.D. ? Electronically Signed by: Mehdi Rueda M.D. ? Report Finalized: 02/22/2019 ??16:50 ? Report Last Ammended: 03/28/2019 ??15:09 ? Procedure Note Mehdi Rueda MD - 03/28/2019 [facility] Cardiac Catheterization/Intervention Report Patient Name: Vaibhav Guzmán Procedure Date: 02/22/2019 A #: [id number] Primary Physician: Mehdi Rueda V Case #: [id number] File Name: [id number] Catheterization Order Number: [id number] [facility] FinalReport [place], [place] Patient Name: Vaibhav Guzmán ID#:[id number] :1950 Procedure Date: February 22, 2019 Case #: [id number] Room: 2 Case Physician: Mehdi Rueda M.D. Start: 15:03 Fellow: Eladio Preston M.D. Admission:02/21/2019 Referring Physician: Bryant Watkins M.D. Procedures: * Coronary Angiography * Left Heart Catheterization * Right Heart Catheterization * Oximetry * Coronary Stent Insertion History Vaibhav Guzmán is a 68 year old man. He has hypertension and afamily history of coronary artery disease. The patient's smoking status is Former. He also has hypercholesterolemia managed with lipid therapy. Prior to the initiation of this procedure, the patient wasdesignated as ASA Class III. The [facility] clinical frailty scale is 4. Vulnerable. Diagnostic Tests: Prior Coronary Angiography: LV ejection fraction within 6 months is 75%. Medications Prior to Procedure: ASA and Statin. Indications for Diagnostic Cath: The priority of the diagnostic procedure was Urgent. The indicationfor the lab instructor visit is ACS greater than 24 hrs, worsening angina and suspected CAD. Chest pain symptom assessment was: Typical Angina. Technique: A 6Fr sheath was inserted in the right radial artery utilizing the Seldinger technique. A 6Fr sheath was inserted in the right median antecubital vein utilizing the Seldinger technique. The leftcoronary artery was injected utilizing a 5Fr JL 3.5 catheter. A 5Fr JR 4catheter was used to inject the right coronary artery. Right heartcatheterization was performed utilizing a 6Fr BALLOON WEDGE catheter. Coronary stent insertion was performed and the equipment utilized will be describedin the intervention summary section. 7,000 units of heparin were administered. A total of 100cc of Omnipaque were opened, 86cc of Omnipaque were administered and 14cc of Omnipaque were wasted.Radiation: Fluoro time was 11.0 minutes, dose area product was 151,589 [id number] air kerma was 2,563 mGY. See the case log for additional details. The patient received the following medications prior to and duringthe procedure: Unfractionated Heparin. Hemodynamics: Right Heart Pressures Hemodynamics: Syst Diast EDP a v m RA 16 13 11 RV 55 14 PA 62 20 36 PCW 20 19 19 Hemodynamic Profile: Profile 1 CO 6.43 CI 3.03 TSR 1,443 SVR 1,306 TPR 448 PVR 212 Technique Estimated Hreb Left Heart Pressures Resting: Syst Diast EDP a v m Ao 177 76 116 LV 175 23 Oximetry: Location %Sat Location %Sat Superior Vena Cava 55.0 Right Pulmonary 59.0 Artery Peripheral Arterial 90.0 Coronary Angiography: Dominance: Co-dominant Left Main The left main was normal, free of disease. Left Anterior Descending There was a 35% calcified long segmental stenosis of theproximal segment of the left anterior descending artery (LAD). The LADwas large. Left Circumflex There was mild diffuse (<=25% stenosis) disease of the entirevessel segment of the left circumflex artery (LCX). The LCX waslarge. Right Coronary Artery There was a 75% long segmental stenosis of the proximal segmentof the right coronary artery (RCA). The RCA was large. Ramus There was mild diffuse (<=25% stenosis) disease of the entirevessel segment of the ramus. The ramus was small. Indication for Intervention: Coronary intervention was indicated for treatment of post infarction angina. The priority for the procedure was Urgent. The NCDRindication for the procedure was NSTE-ACS. LVEF within one week was 75%. RightHeart catheterization was initiated for Hypertensive heart disease withheart failure (I11.0). Intervention Summary: Right Coronary Artery Proximal 75% Stent insertion was performed on the 75% stenosis in the proximal segment of the RCA. This was a de yoandy lesion. According to the ACC/AHA classification system, thislesion was a type B2 high risk lesion. Primary prevention of restenosis was the indication for stent insertion. Thiswas the culprit lesion. A guidewire was placed across thislesion. Vessel flow pre intervention was ROLANDO 3. Lesion lengthwas 12mm. Stent insertion was accomplished through a 6 Fr. JR 4guide. The lesion was predilated with a 2.50mm TREK 20 MMballoon with a maximum inflation pressure of 12 atmospheres. A premounted 3.00 x 24 mm Synergy (ERASMO) was deployed with a maximum inflation pressure of 16 atmospheres. Followingstent deployment, the lesion was dilated using a 3.25mm NCEUPHORA 20 MM balloon with a maximum inflation pressure of 18 atmospheres. The final outcome was defined as successful. There was no residual stenosis following this intervention. The finalTIMI flow was 3. Vascular Access: Vascular Access Management: Manual Compression of the right median antecubital vein accesssite was performed. Mechanical Compression of the right radial artery access sitewas performed. Dual Antiplatelet (DAPT) Recommendations: Drug eluting stent (ERASMO) inserted. P2Y12 Loading dose administered prior to arrival in the lab instructor. Recommend continuing clopidogrel 75 mg PO daily for 12 months.Recommend continuing aspirin 81 mg unless intolerant. Conclusions: * One vessel coronary artery disease (RCA) * Moderate pulmonary hypertension * Elevated pulmonary capillary wedge pressure * Elevated left ventricular end diastolic pressure * Successful stent insertion of the proximal RCA lesion * Recommend continuing clopidogrel 75 mg PO daily for 12 months (seeDAPT Recommendations above for more information.) Complications/Events: The patient had no complications during these procedures. The attending physician was present for the entire procedure. Dr. Mehdi Rueda M.D. was present during the moderate sedation intraservice time as documented by the sedation nurse. Case time =01:05. Dr. Mehdi Rueda M.D. performed the coronary angiography, leftheart catheterization, right heart catheterization, oximetry and stent insertion-coronary. Mehdi Rueda M.D. Electronically Signed by: Mehdi Rueda M.D. Report Finalized: 02/22/2019 16:50 Report Last Ammended: 03/28/2019 15:09 Mehdi Logan MD CARDIAC CATH ORDERAB LES * Heparin (unfractionated) Level (02/22/2019 12:05 PM EDT) [facility] UF Heparin 0.41 IU/mL [facility] Comment: Guidelines for therapeutic unfractionated heparin levels are summarized below. Heparin (Anti-Xa) levels should be determined in a plasma sample that has been drawn 6 hours after a dose change i.e., steady-state has been reached. DRUG ?Dosing Schedule ? Target Peak Steady-State ?Heparin (Anti-Xa) Levels (Units/mL) Unfractionated ?Continuous infusion ?0.3-0.7 Heparin ?0.3-0.6 for some neurology indications Blood specimen (specimen) 02/22/2019 12:05 PM EDT 02/22/2019 12:46 PM EDT Narrative Resulting Agency Comment Spec In Lab Hemant Diaz MD HEMATOLOGY ORDERABLE S [facility] [place] [address] * Heparin (unfractionated) Level (02/22/2019 5:56 AM EDT) [facility] UF Heparin 0.52 IU/mL [facility] Comment: Guidelines for therapeutic unfractionated heparin levels are summarized below. Heparin (Anti-Xa) levels should be determined in a plasma sample that has been drawn 6 hours after a dose change i.e., steady-state has been reached. DRUG ?Dosing Schedule ? Target Peak Steady-State ?Heparin (Anti-Xa) Levels (Units/mL) Unfractionated ?Continuous infusion ?0.3-0.7 Heparin ?0.3-0.6 for some neurology indications Blood specimen (specimen) 02/22/2019 5:56 AM EDT 02/22/2019 6:04 AM EDT Narrative Resulting Agency Comment Spec In Lab Hemant Diaz MD HEMATOLOGY ORDERABLE S Performing Organization Address City/State/[facility] Co de Phone Number [facility] [place] [address] * (ABNORMAL) Differential, Automated (02/22/2019 4:32 AM EDT) Neutrophil % 79.7 % [facility] Neutrophil Absolute 11.86(H) 1.70 - 6.10 x10(3)/mc L [facility] Lymph % 11.8 % [facility] Lymphocytes Abs 1.8 0.9 - 3.2 x10(3)/mc L [facility] Monocyte % 6.8 % [facility] Monocyte Abs 1.0(H) 0.3 - 0.9 x10(3)/mc L [facility] Eos % 0.1 % [facility] Eosinophils Abs 0.0 0.0 - 0.4 x10(3)/mc L [facility] Basophil % 0.1 % [facility] Baso Absolute 0.0 0.0 - 0.1 x10(3)/mc L [facility] Immature Gran % 1.50 % [facility] Comment: Immature granulocytes(IG's)percentage and absolute count will include metamyelocytes, myelocytes, and promyelocytes. Blood smears from CBCs yielding IG's will be scanned manually for concordance. If this scan disagrees with the automated IG or if promyelocytes are noted, a manual differential will be performed. Immature Gran Absolute 0.22(H) 0.00 - 0.04 x10(3)/mc L [facility] Blood specimen (specimen) 02/22/2019 4:32 AM EDT 02/22/2019 5:44 AM EDT Narrative Resulting Agency Comment Spec In Lab Surekha Baker MD HEMATOLOGY ORDERABLE S [facility] [place] [address] * (ABNORMAL) Hemogram (02/22/2019 4:32 AM EDT) White Blood Cell 14.9(H) 4.0 - 9.5 x10(3)/ L [facility] Red Blood Cell 5.58(H) 4.58 - 5.54 x10(6)/mc L [facility] Hemoglobin 10.6(L) 13.7 - 16.5 gm/dL [facility] Hematocrit 33.9(L) 40.5 - 48.5 % [facility] Mean Cell Volume 60.8(L) 82.9 - 93.1 fL [facility] Mean Cell Hemoglobin 19.0(L) 27.5 - 32.1 pg [facility] Mean Cell Hemoglobin Concentration 31.3(L) 32.0 - 35.7 gm/dL [facility] Platelet 366(H) 145 - 357 x10(3)/mc L [facility] RDW Standard Deviation 37.2 36.0 - 45.0 fL [facility] RDW coefficient of variation 18.6(H) 11.4 - 13.8 % [facility] Mean Platelet Volume 9.2 7.6 - 12.9 fL [facility] NRBC% auto 0.0 % [facility] NRBC Absolute 0.000 0.000 - 0.000 x10(3)/mc L [facility] Blood specimen (specimen) 02/22/2019 4:32 AM EDT 02/22/2019 5:44 AM EDT Narrative Resulting Agency Comment Spec In Lab Surekha Baker MD HEMATOLOGY ORDERABLE S [facility] [place] [address] * (ABNORMAL) Basic Metabolic Panel (non-fasting) (02/22/2019 4:32 AM EDT) Glucose 130 65 - 199 mg/dL [facility] Comment:Diabetes: >=200 mg/d L plus symptoms Blood Urea Nitrogen 44(H) 10 - 20 mg/dL [facility] Creatinine 1.88(H) 0.80 - 1.50 mg/dL [facility] Sodium 139 135 - 145 mmol/L [facility] Potassium 3.5 3.5 - 5.0 mmol/L [facility] Comment: Please note: ??Patients with WBC >100,000 may have falsely elevated Potassium levels. ??For accurate Potassium quantification in these patients send serum separator tube (gold top) for subsequent determinations. ??Contact the Clinical Chemistry Laboratory if there are any questions. Chloride 99 98 - 107 mmol/L [facility] Carbon Dioxide 24 22 - 31 mmol/L [facility] Anion Gap 16(H) 5 - 15 mmol/L [facility] Calcium 9.3 8.5 - 10.5 mg/dL [facility] Est Glomerular Filtration Rate 36(L) >=60 mL/min/1. 73 m?? [facility] Comment: The eGFR was calculated using the CKD-EPI equation. As with all creatinine based estimates of kidney function, eGFR values calculated with the CKD-EPI equation are not accurate in patients with acute kidney failure, extremes of body mass or the acutely ill. [email or web address]LEnkf eGFR 42(L) >=60 mL/min/1. 73 m?? [facility] Comment: The eGFR was calculated using the CKD-EPI equation. As with all creatinine based estimates of kidney function, eGFR values calculated with the CKD-EPI equation are not accurate in patients with acute kidney failure, extremes of body mass or the acutely ill. [email or web address] Blood specimen (specimen) 02/22/2019 4:32 AM EDT 02/22/2019 5:44 AM EDT Narrative Resulting Agency Comment Spec In Lab Hemant Diaz MD CHEMISTRY ORDERABLES Performing Organization Address [facility] Co de Phone Number [facility] [place] [address] * Magnesium (02/22/2019 4:32 AM EDT) Magnesium 0.87 0.69 - 1.07 mmol/L [facility] Blood specimen (specimen) 02/22/2019 4:32 AM EDT 02/22/2019 5:44 AM EDT Narrative Resulting Agency Comment Spec In Lab Hemant Diaz MD CHEMISTRY ORDERABLES Performing Organization Address [facility] de Phone Number [facility] [place] [address] * Heparin (unfractionated) Level (02/21/2019 11:39 PM EDT) UF Heparin 0.28 IU/mL [facility] Comment: Guidelines for therapeutic unfractionated heparin levels are summarized below. Heparin (Anti-Xa) levels should be determined in a plasma sample that has been drawn 6 hours after a dose change i.e., steady-state has been reached. DRUG ?Dosing Schedule ? Target Peak Steady-State ?Heparin (Anti-Xa) Levels (Units/mL) Unfractionated ?Continuous infusion ?0.3-0.7 Heparin ?0.3-0.6 for some neurology indications Blood specimen (specimen) 02/21/2019 11:39 PM EDT 02/21/2019 11:45 PM EDT Narrative Resulting Agency Comment Spec In Lab Hemant Diaz MD HEMATOLOGY ORDERABLE S Performing Organization Address [facility] Phone Number [facility] [place] [address] * CK (02/21/2019 11:39 PM EDT) Creatine Kinase 133 0 - 200 unit/L [facility] Blood specimen (specimen) 02/21/2019 11:39 PM EDT 02/21/2019 11:45 PM EDT Narrative Resulting Agency Comment Spec In Lab Katlyn Avila MD CHEMISTRY ORDERABLES Performing Organization Address [facility] de Phone Number [facility] [place] [address] * (ABNORMAL) Troponin (02/21/2019 11:39 PM EDT) Troponin-T 0.12(H) 0.00 - 0.00 ng/mL [facility] Comment: The 99th percentile for Troponin T is less than 0.01 ng/mL, any detectable cTnT concentration using this assay should be considered elevated. According to the third universal definition of myocardial infarction the following criteria with a clinical presentation consistent with acute myocardial ischemia meets the diagnosis for a myocardial infarction (DE). Detection of a rise and/or fall of cTnT, with at least one value greater than the 99th percentile (> or = 0.01) and with at least one of the following ?? Symptoms of ischemia ?? New or presumed new significant PQ-kzydgyi-I wave (ST-T) changes or new left bundle branch block (LBBB) ?? Development of pathologic Q waves in the ECG ?? Imaging evidence of new loss of viable myocardium or new regional wall motion abnormality ?? Identification of an intracoronary thrombus by angiography or autopsy Samples for cTnT testing should be obtained serially upon first assessment and again 3 to 6 hours later. If the clinical suspicion is high and previous samples have been negative an additional sample may be indicated. Reference: Third [place] Definition of Myocardial Infarction. Journal of the [place] [employer] 2012;60:1581-98 Blood specimen (specimen) 02/21/2019 11:39 PM EDT 02/21/2019 11:45 PM EDT Narrative Resulting Agency Comment Spec In Lab Katlyn Avila MD CHEMISTRY ORDERABLES [facility] [place] [address] * Heparin (unfractionated) Level (02/21/2019 5:45 PM EDT) UF Heparin 0.17 IU/mL [facility] Comment: Guidelines for therapeutic unfractionated heparin levels are summarized below. Heparin (Anti-Xa) levels should be determined in a plasma sample that has been drawn 6 hours after a dose change i.e., steady-state has been reached. DRUG ?Dosing Schedule ? Target Peak Steady-State ?Heparin (Anti-Xa) Levels (Units/mL) Unfractionated ?Continuous infusion ?0.3-0.7 Heparin ?0.3-0.6 for some neurology indications Blood specimen (specimen) 02/21/2019 5:45 PM EDT 02/21/2019 5:54 PM EDT Narrative Resulting Agency Comment Spec In Lab Hemant Diaz MD HEMATOLOGY ORDERABLE S Performing Organization Address City/[facility]/ZIP Co de Phone Number [facility] [place] [address] * CK (02/21/2019 5:45 PM EDT) Creatine Kinase 185 0 - 200 unit/L [facility] Blood specimen (specimen) 02/21/2019 5:45 PM EDT 02/21/2019 5:54 PM EDT Narrative Resulting Agency Comment Spec In Lab Katlyn Avila MD CHEMISTRY ORDERABLES Performing Organization Address [facility] Co de Phone Number [facility] [place] [address] * (ABNORMAL) Troponin (02/21/2019 5:45 PM EDT) Troponin-T 0.15(H) 0.00 - 0.00 ng/mL [facility] Comment: The 99th percentile for Troponin T is less than 0.01 ng/mL, any detectable cTnT concentration using this assay should be considered elevated. According to the third universal definition of myocardial infarction the following criteria with a clinical presentation consistent with acute myocardial ischemia meets the diagnosis for a myocardial infarction (DE). Detection of a rise and/or fall of cTnT, with at least one value greater than the 99th percentile (> or = 0.01) and with at least one of the following ?? Symptoms of ischemia ?? New or presumed new significant LL-vtbrzuq-O wave (ST-T) changes or new left bundle branch block (LBBB) ?? Development of pathologic Q waves in the ECG ?? Imaging evidence of new loss of viable myocardium or new regional wall motion abnormality ?? Identification of an intracoronary thrombus by angiography or autopsy Samples for cTnT testing should be obtained serially upon first assessment and again 3 to 6 hours later. If the clinical suspicion is high and previous samples have been negative an additional sample may be indicated. Reference: Third [place] Definition of Myocardial Infarction. Journal of the [place] [employer] 2012;60:1581-98 Blood specimen (specimen) 02/21/2019 5:45 PM EDT 02/21/2019 5:54 PM EDT Narrative Resulting Agency Comment Spec In Lab Katlyn Avila MD CHEMISTRY ORDERABLES [facility] [place] [address] * ECHO COMPLETE (02/21/2019 2:17 PM EDT) EF 75 HEARTLAB SYSTEM Anatomical Region Laterality Modality Other 02/21/2019 Narrative 02/21/2019 4:01 PM EDT Procedure: ?Transthoracic Echocardiogram Patient: ?MICAH VAIBHAV ?(Age): 1950(68y) Med Rec#: ? [id number] ?Sex: ?M ? Site Loc: ? [facility] ?Ht / Wt: ??173(cm)/100(kg) Pt. Loc: ?Adult Floor ? BSA: ?2.13 Study Date: ?? 02/21/2019 ?Pt. Type: Inpatient Tape: ? Referring: Katlyn Avila ([id number]) Reading: Daryl Albert ([id number]) [place] Supervisor: Frederick Nunes Interpreting Fellow: Anyi Lemus MD ([id number]) Diagnosis: *Chronic systolic (congestive) heart failure (I50.22) BP: ? 171/109 SUMMARY: 1. The left ventricular chamber size is [...] dilatation of the aortic root (3.9 cm) ??and ascending aorta (3.6 cm). 6. See remainder of report for additional findings. 7. There are no prior studies available for comparison. Findings ? : Study Quality: ? Adequate Left Ventricle: ? The left ventricular chamber size is normal. ?Moderate concentric left ventricular hypertrophy is observed. ?There is no evidence of LVOT obstruction. ?No ventricular septal defect is visualized. ?There is normal global left ventricular systolic function. ??Ejection fraction is estimated to be 75%. ?There are no left ventricular segmental wall motion abnormalities. ?Assessment of diastolic function is indeterminate. Left Atrium: ? The left atrium is mildly dilated. ?No atrial septal defect is visualized. Right Ventricle: ? The right ventricle is normal in size. ?Right ventricular global systolic function is normal. ?Pulmonary artery hypertension could not be assessed due to inadequate tricuspid regurgitation jet. Right Atrium: ? The right atrium is mildly dilated. Aortic Valve: ? The aortic valve is not well visualized. ?Systolic excursion of the aortic valve is normal. ?There is aortic annular calcification. ?There is no evidence of aortic valve stenosis. ?There is a trace of aortic regurgitation present. Mitral Valve: ? The mitral valve is probably normal. ?There is trace mitral regurgitation present. Tricuspid Valve: ? The tricuspid valve is probably normal. ?There is no evidence of tricuspid valve regurgitation present. Pulmonic Valve: ? The pulmonic valve is probably normal. ?There is no evidence of pulmonic regurgitation. Pericardium: ? The pericardium appears normal and there is no evidence of a pericardial effusion. Aorta: ? There is mild dilatation of the aortic root. ?There is mild dilatation of the ascending aorta. ?The aortic arch was not well visualized. Pulmonary Artery: ? The main pulmonary artery is probably normal in size. Venous: ? There is a greater than 50% respiratory change in the inferior vena cava dimension. Misc: ? Two-dimensional echo, spectral Doppler and color Doppler performed. Chambers 2D ?Value ?Units (Range) ? RVIDd ??Base ? 3 ?cm ? IVSd (2D) ? 1.8 ?cm ? LVPWd (2D) ?1.6 ?cm ? IVS:LVPW ratio (2D) 1.1 ?ratio ? RWT (2D) ?0.7 ?ratio ? RWT PW (2D) ? 0.6 ?ratio ? LVIDd (2D) ?5.2 ?cm ? LVIDs (2D) ?2.3 ?cm ? LVIDd (2D) index ?2.5 ?cm/m2 ? LVIDs (2D) index ?1.1 ?cm/m2 ? LV FS (2D) ?56 ? % ? EF Teichholz (2D) ?? 86 ? % ? Ao root diameter (2D3.9 ?cm (2.1 - 3.6) ? Ascending Ao ?3.6 ?cm (2 - 3.5) ? Volumes/Mass ?Value ?Units (Range) ? LA Area 4 CH ?28 ? cm2 (<21) ? RA AREA 4CH ? 19 ? cm2 ? LA ESV BP (MOD) inde42.3 ? ml/m2 ? LV ESV SP 4CH (MOD) 21 ? ml ? LV ESV SP 2CH (MOD) 12 ? ml ? LV EDV BP ? 79 ? ml ? LV ESV BP ? 16 ? ml ? LV EDV BP index ? 37.1 ? ml/m2 ? LV ESV BP index ? 7.5 ?ml/m2 ? BP EF (MOD) ? 80 ? % ? LV mass (2D) ?412.1 ?g ? LV mass (2D) index ??193.5 ?g/m2 ? Diastolic/Systolic Function ?Value ?Units (Range) ? MV E-wave Vmax ?1.1 ?m/sec ? MV deceleration [id number] ?msec ? MV A-wave Vmax ?0.7 ?m/sec ? MV E:A ratio ?1.5 ?ratio ? P. vein S-wave Vmax 0.4 ?m/sec ? P. vein D-wave Vmax 0.7 ?m/sec ? P. vein S:D Vmax rat0.6 ?ratio ? LV septal e' Vmax ?? 0.1 ?m/sec ? LV lateral e' Vmax ??0.1 ?m/sec ? LV average e' Vmax ??0.1 ?m/sec ? LV E:e' septal ratio15.2 ? ratio ? LV E:e' lateral rati12.3 ? ratio ? LV average E:e' rati13.5 ? ratio ? Tricuspid Valve ?Value ?Units (Range) ? TAPSE ? 2.2 ?cm ? RV lateral s' Vmax ??0.2 ?m/sec ? Wall Motion: Segment Name ?Rest ? Base-Anteroseptal ?? Normal ? Base-Anterior ? Normal ? Base-Anterolateral ??Normal ? Base-Posterolateral Normal ? Base-Inferior ? Normal ? Base-Inferoseptal ?? Normal ? Mid-Anteroseptal ?Normal ? Mid-Anterior ?Normal ? Mid-Anterolateral ?? Normal ? Mid-Posterolateral ??Normal ? Mid-Inferior ?Normal ? Mid-Inferoseptal ?Normal ? [place]-Septal ? Normal ? Mar[place]-Anterior ? Normal ? [place]-Lateral ?Normal ? [place]-Inferior ? Normal ? [place]-Tip ?Normal ? This report has been electronically signed by: Daryl Albert MD ? 02/21/2019 16:00:46 Images reviewed and interpretation verified [facility] Cardiac Ultrasound Laboratory Procedure Note Daryl Albert MD - 04/11/2019 Procedure: Transthoracic Echocardiogram Patient: MICAH NUNO(Age): 1950(68y) Med Rec#: [id number] Sex: M [place] [facility] [place] / Wt: 173(cm)/100(kg) Pt. Loc: Adult Floor BSA: 2.13 Study Date: 02/21/2019 Pt. Type: Inpatient Tape: Referring: Katlyn Avila ([id number]) Reading: Daryl Albert ([id number]) [place] Supervisor: Frederick Nunes Interpreting Fellow: Anyi Lemus MD ([id number]) Diagnosis: *Chronic systolic (congestive) heart failure (I50.22) BP: 171/109 SUMMARY: 1. The left ventricular chamber size is [...] are no prior studies available for comparison. Findings : Study Quality: Adequate Left Ventricle: The left ventricular chamber size is normal. Moderate concentric left ventricular hypertrophy is observed. There is no evidence of LVOT obstruction. No ventricular septal defect is visualized. There is normal global left ventricular systolic function. Ejection fraction is estimated to be 75%. There are no left ventricular segmental wall motion abnormalities. Assessment of diastolic function is indeterminate. Left Atrium: The left atrium is mildly dilated. No atrial septal defect is visualized. Right Ventricle: The right ventricle is normal in size. Right ventricular global systolic function is normal. Pulmonary artery hypertension could not be assessed due to inadequate tricuspid regurgitation jet. Right Atrium: The right atrium is mildly dilated. Aortic Valve: The aortic valve is not well visualized. Systolic excursion of the aortic valve is normal. There is aortic annular calcification. There is no evidence of aortic valve stenosis. There is a trace of aortic regurgitation present. Mitral Valve: The mitral valve is probably normal. There is trace mitral regurgitation present. Tricuspid Valve: The tricuspid valve is probably normal. There is no evidence of tricuspid valve regurgitation present. Pulmonic Valve: The pulmonic valve is probably normal. There is no evidence of pulmonic regurgitation. Pericardium: The pericardium appears normal and there is no evidence of a pericardial effusion. Aorta: There is mild dilatation of the aortic root. There is mild dilatation of the ascending aorta. The aortic arch was not well visualized. Pulmonary Artery: The main pulmonary artery is probably normal in size. Venous: There is a greater than 50% respiratory change in the inferior vena cava dimension. Misc: Two-dimensional echo, spectral Doppler and color Doppler performed. Chambers 2D Value Units (Range) RVIDd Base 3 cm IVSd (2D) 1.8 cm LVPWd (2D) 1.6 cm IVS:LVPW ratio (2D) 1.1 ratio RWT (2D) 0.7 ratio RWT PW (2D) 0.6 ratio LVIDd (2D) 5.2 cm LVIDs (2D) 2.3 cm LVIDd (2D) index 2.5 cm/m2 LVIDs (2D) index 1.1 cm/m2 LV FS (2D) 56 % EF Teichholz (2D) 86 % Ao root diameter (2D3.9 cm (2.1 - 3.6) Ascending Ao 3.6 cm (2 - 3.5) Volumes/Mass Value Units (Range) LA Area 4 CH 28 cm2 (<21) RA AREA 4CH 19 cm2 LA ESV BP (MOD) inde42.3 ml/m2 LV ESV SP 4CH (MOD) 21 ml LV ESV SP 2CH (MOD) 12 ml LV EDV BP 79 ml LV ESV BP 16 ml LV EDV BP index 37.1 ml/m2 LV ESV BP index 7.5 ml/m2 BP EF (MOD) 80 % LV mass (2D) 412.1 g LV mass (2D) index 193.5 g/m2 Diastolic/Systolic Function Value Units (Range) MV E-wave Vmax 1.1 m/sec MV deceleration [id number] msec MV A-wave Vmax 0.7 m/sec MV E:A ratio 1.5 ratio P. vein S-wave Vmax 0.4 m/sec P. vein D-wave Vmax 0.7 m/sec P. vein S:D Vmax rat0.6 ratio LV septal e' Vmax 0.1 m/sec LV lateral e' Vmax 0.1 m/sec LV average e' Vmax 0.1 m/sec LV E:e' septal ratio15.2 ratio LV E:e' lateral rati12.3 ratio LV average E:e' rati13.5 ratio Tricuspid Valve Value Units (Range) TAPSE 2.2 cm RV lateral s' Vmax 0.2 m/sec Wall Motion: Segment Name Rest Base-Anteroseptal Normal Base-Anterior Normal Base-Anterolateral Normal Base-Posterolateral Normal Base-Inferior Normal Base-Inferoseptal Normal Mid-Anteroseptal Normal Mid-Anterior Normal Mid-Anterolateral Normal Mid-Posterolateral Normal Mid-Inferior Normal Mid-Inferoseptal Normal Marble-Septal Normal Marble-Anterior Normal Marble-Lateral Normal Marble-Inferior Normal Marble-Tip Normal This report has been electronically signed by: Daryl Albert MD 02/21/2019 16:00:46 Images reviewed and interpretation verified [facility] Cardiac Ultrasound Laboratory Katlyn Avila MD ECHO ORDERABLES * EKG 12 Lead (02/21/2019 12:26 PM EDT) Ventricular rate 76 BPM MUSE SYSTEM Atrial Rate 76 BPM MUSE SYSTEM P-R Interval 174 ms MUSE SYSTEM QRS Duration 108 ms MUSE SYSTEM Q-T Interval 398 ms MUSE SYSTEM QTC Calculated (Bezet) 447 ms MUSE SYSTEM Calculated P [place] 12 degrees MUSE SYSTEM Calculated R [place] 54 degrees MUSE SYSTEM Calculated T [place] 68 degrees MUSE SYSTEM INTERPRETATION Normal sinus rhythm Normal ECG No previous ECGs available Confirmed by MD Tavia, Levi ([id number]) on 02/21/2019 4:05:11 PM MUSE SYSTEM 02/21/2019 12:2 6 PM EDT 02/21/2019 4:05 PM EDT Katlyn Avila MD ECG ORDERABLES MUSE SYSTEM * Hemoglobin A1c (02/21/2019 12:00 PM EDT) Hemoglobin A1c 5.3 4.3 - 5.6 % [facility] Comment: Reference Range: 4.3 - 5.6% 5.7 - 6.4% - Increased Risk of Developing Diabetes Mellitus >= 6.5% - Consistent with diagnosis of Diabetes Mellitus In the absence of hyperglycemia (i.e. plasma glucose > 200 mg/dL) or classic symptoms of hyperglycemia a repeat measurement of HbA1c should be performed on a separate sample to confirm the diagnosis. Diagnosis and Classification of Diabetes Mellitus, Diabetes Care 2013; 36: Suppl. 1, S67-96 Estimated Average Glucose 105 mg/dL [facility] Comment: eAG equivalents for HbA1c percentages: HbA1c(%) ?eAG(mg/dL) 6.0 ?126 6.5 ?140 7.0 ?154 7.5 ?169 8.0 ?183 8.5 ?197 9.0 ?212 9.5 ?226 10.0 ? 240 Limitations: The eAG calculation has not been validated on women, individuals below 18 years old and above 70 years old, and individuals with hemoglobinopathies. Additional resources are available on the ADA website. Nino BLANTON, Rere J, Grant R, et al. ??Translating the A1C assay into estimated average glucose values. ??Diabetes Care 2008:31(8):3311-1223. Blood specimen (specimen) Venous Draw / Unknown 02/21/2019 12:00 PM EDT 02/21/2019 10:55 PM EDT Narrative Resulting Agency Comment Spec In Lab Surekha Baker MD CHEMISTRY ORDERABLES Performing Organization Address [facility] Co de Phone Number [facility] [place] [address] * Scan, Peripheral Blood (02/21/2019 12:00 PM EDT) Plat estimate Increased [facility] RBC Morphology Abnormal [facility] Microcyte 6-10 /HPF [facility] Hypochromia Slight [facility] Target Cells 1-5 /HPF [facility] Stippled RBC Present >1/HPF [facility] Blood specimen (specimen) 02/21/2019 12:00 PM EDT 02/21/2019 12:10 PM EDT Narrative Resulting Agency Comment Spec In Lab Fabiola Coronado MD HEMATOLOGY ORDERABLE S Performing Organization Address [facility] Co de Phone Number [facility] [place] [address] * (ABNORMAL) Troponin (02/21/2019 12:00 PM EDT) Pathologist [facility] Troponin-T 0.22(H) 0.00 - 0.00 ng/mL [facility] Comment: The 99th percentile for Troponin T is less than 0.01 ng/mL, any detectable cTnT concentration using this assay should be considered elevated. According to the third universal definition of myocardial infarction the following criteria with a clinical presentation consistent with acute myocardial ischemia meets the diagnosis for a myocardial infarction (DE). Detection of a rise and/or fall of cTnT, with at least one value greater than the 99th percentile (> or = 0.01) and with at least one of the following ?? Symptoms of ischemia ?? New or presumed new significant SO-tzhoiwk-S wave (ST-T) changes or new left bundle branch block (LBBB) ?? Development of pathologic Q waves in the ECG ?? Imaging evidence of new loss of viable myocardium or new regional wall motion abnormality ?? Identification of an intracoronary thrombus by angiography or autopsy Samples for cTnT testing should be obtained serially upon first assessment and again 3 to 6 hours later. If the clinical suspicion is high and previous samples have been negative an additional sample may be indicated. Reference: Third [place] Definition of Myocardial Infarction. Journal of the [place] [employer] 2012;60:1581-98 Blood specimen (specimen) 02/21/2019 12:00 PM EDT 02/21/2019 12:17 PM EDT Narrative Resulting Agency Comment Spec In Lab Katlyn Avila MD CHEMISTRY ORDERABLES Performing Organization Address City/[facility]/ZIP Co de Phone Number [facility] [place] [address] * (ABNORMAL) CK (02/21/2019 12:00 PM EDT) Creatine Kinase 214(H) 0 - 200 unit/L [facility] Blood specimen (specimen) 02/21/2019 12:00 PM EDT 02/21/2019 12:17 PM EDT Narrative Resulting Agency Comment Spec In Lab Katlyn Avila MD CHEMISTRY ORDERABLES Performing Organization Address City/[facility]/ZIP Co de Phone Number [facility] [place] [address] * (ABNORMAL) pro-Brain Natriuretic Peptide (02/21/2019 12:00 PM EDT) NT-proBNP 5,843(H) <=125 pg/mL [facility] Blood specimen (specimen) 02/21/2019 12:00 PM EDT 02/21/2019 12:17 PM EDT Narrative Resulting Agency Comment Spec In Lab Katlyn Avila MD CHEMISTRY ORDERABLES Performing Organization Address City/[facility]/ZIP Co de Phone Number [facility] [place] [address] * TSH (02/21/2019 12:00 PM EDT) [facility] Thyroid Stimulating Hormone 0.76 0.27 - 4.20 mcIU/mL [facility] Blood specimen (specimen) 02/21/2019 12:00 PM EDT 02/21/2019 12:17 PM EDT Narrative Resulting Agency Comment Spec In Lab Katlyn Avila MD CHEMISTRY ORDERABLES Performing Organization Address City/[facility]/ZIP Co de Phone Number [facility] [place] [address] * Magnesium (02/21/2019 12:00 PM EDT) [facility] Magnesium 0.88 0.69 - 1.07 mmol/L [facility] Blood specimen (specimen) 02/21/2019 12:00 PM EDT 02/21/2019 12:17 PM EDT Narrative Resulting Agency Comment Spec In Lab Katlyn Avila MD CHEMISTRY ORDERABLES Performing Organization Address [facility] Co de Phone Number [facility] [place] [address] * POCT Glucose (02/21/2019 12:00 PM EDT) [facility] Glucose, POC 139 65 - 199 mg/dL [facility] Comment: Supplemental ranges: <140 mg/dL before meals <180 mg/dL all other times of the day Blood specimen (specimen) 02/21/2019 12:00 PM EDT 02/21/2019 12:00 PM EDT Katlyn Avila MD POINT OF CARE TEST O RDERABLES Performing Organization Address [facility] Co de Phone Number [facility] [place] [address] * Heparin (unfractionated) Level (02/21/2019 12:00 PM EDT) [facility] UF Heparin 0.09 IU/mL [facility] Comment: Guidelines for therapeutic unfractionated heparin levels are summarized below. Heparin (Anti-Xa) levels should be determined in a plasma sample that has been drawn 6 hours after a dose change i.e., steady-state has been reached. DRUG ?Dosing Schedule ? Target Peak Steady-State ?Heparin (Anti-Xa) Levels (Units/mL) Unfractionated ?Continuous infusion ?0.3-0.7 Heparin ?0.3-0.6 for some neurology indications Blood specimen (specimen) 02/21/2019 12:00 PM EDT 02/21/2019 12:10 PM EDT Narrative Resulting Agency Comment Spec In Lab Katlyn Avila MD HEMATOLOGY ORDERABLE S [facility] [place] [address] * (ABNORMAL) Differential, Automated (02/21/2019 12:00 PM EDT) Neutrophil % 93.0 % [facility] Neutrophil Absolute 15.67(H) 1.70 - 6.10 x10(3)/mc L [facility] Lymph % 4.8 % [facility] Lymphocytes Abs 0.8(L) 0.9 - 3.2 x10(3)/mc L [facility] Monocyte % 0.9 % [facility] Monocyte Abs 0.2(L) 0.3 - 0.9 x10(3)/mc L [facility] Eos % 0.1 % [facility] Eosinophils Abs 0.0 0.0 - 0.4 x10(3)/mc L [facility] Basophil % 0.1 % [facility] Baso Absolute 0.0 0.0 - 0.1 x10(3)/[facility] Immature Gran % 1.10 % [facility] Comment: Immature granulocytes(IG's)percentage and absolute count will include metamyelocytes, myelocytes, and promyelocytes. Blood smears from CBCs yielding IG's will be scanned manually for concordance. If this scan disagrees with the automated IG or if promyelocytes are noted, a manual differential will be performed. Immature Gran Absolute 0.18(H) 0.00 - 0.04 x10(3)/[facility] Blood specimen (specimen) 02/21/2019 12:00 PM EDT 02/21/2019 12:10 PM EDT Narrative Resulting Agency Comment Spec In Lab Fabiola Coronado MD HEMATOLOGY ORDERABLE S [facility] [place] [address] * (ABNORMAL) Hemogram (02/21/2019 12:00 PM EDT) White Blood Cell 16.8(H) 4.0 - 9.5 x10(3)/[facility] Red Blood Cell 5.88(H) 4.58 - 5.54 x10(6)/[facility] Hemoglobin 11.3(L) 13.7 - 16.5 gm/dL [facility] Hematocrit 36.0(L) 40.5 - 48.5 % [facility] Mean Cell Volume 61.2(L) 82.9 - 93.1 fL [facility] Mean Cell Hemoglobin 19.2(L) 27.5 - 32.1 pg [facility] Mean Cell Hemoglobin Concentration 31.4(L) 32.0 - 35.7 gm/dL [facility] Platelet 408(H) 145 - 357 x10(3)/[facility] RDW Standard Deviation 38.2 36.0 - 45.0 fL [facility] RDW coefficient of variation 19.5(H) 11.4 - 13.8 % [facility] Mean Platelet Volume 9.1 7.6 - 12.9 fL [facility] NRBC% auto 0.0 % [facility] NRBC Absolute 0.000 0.000 - 0.000 x10(3)/mc L [facility] Blood specimen (specimen) 02/21/2019 12:00 PM EDT 02/21/2019 12:10 PM EDT Narrative Resulting Agency Comment Spec In Lab Fabiola Coronado MD HEMATOLOGY ORDERABLE S [facility] [place] [address] * (ABNORMAL) Basic Metabolic Panel (non-fasting) (02/21/2019 12:00 PM EDT) Glucose 138 65 - 199 mg/dL [facility] Comment:Diabetes: >=200 mg/d L plus symptoms Blood Urea Nitrogen 37(H) 10 - 20 mg/dL [facility] Creatinine 1.91(H) 0.80 - 1.50 mg/dL [facility] Sodium 140 135 - 145 mmol/L [facility] Potassium 4.4 3.5 - 5.0 mmol/L [facility] Comment: Please note: ??Patients with WBC >100,000 may have falsely elevated Potassium levels. ??For accurate Potassium quantification in these patients send serum separator tube (gold top) for subsequent determinations. ??Contact the Clinical Chemistry Laboratory if there are any questions. Chloride 99 98 - 107 mmol/L [facility] Carbon Dioxide 23 22 - 31 mmol/L [facility] Anion Gap 18(H) 5 - 15 mmol/L [facility] Calcium 10.2 8.5 - 10.5 mg/dL [facility] Est Glomerular Filtration Rate 36(L) >=60 mL/min/1. 73 m?? [facility] Comment: The eGFR was calculated using the CKD-EPI equation. As with all creatinine based estimates of kidney function, eGFR values calculated with the CKD-EPI equation are not accurate in patients with acute kidney failure, extremes of body mass or the acutely ill. [email or web address]/[facility] eGFR 41(L) >=60 mL/min/1. 73 m?? [facility] Comment: The eGFR was calculated using the CKD-EPI equation. As with all creatinine based estimates of kidney function, eGFR values calculated with the CKD-EPI equation are not accurate in patients with acute kidney failure, extremes of body mass or the acutely ill. [email or web address] Blood specimen (specimen) 02/21/2019 12:00 PM EDT 02/21/2019 12:10 PM EDT Narrative Resulting Agency Comment Spec In Lab Katlyn Avila MD CHEMISTRY ORDERABLES Performing Organization Address [facility] Co de Phone Number [facility] [place] [address] * Film Library- Storage Only Ultrasound Study (02/21/2019 12:00 AM EDT) Narrative [facility] - 02/22/2019 12:59 PM EDT This exam is auto-finalizing. It's purpose is for storage only. Katlyn Avila MD [facility] FILM LIBRARY ORD ERABLES Performing Organization Address [facility] Co de Phone Number [place], [place] * Film Library- Storage Only DX Chest (02/19/2019 12:00 AM EDT) Narrative [facility] - 02/22/2019 12:57 PM EDT This exam is auto-finalizing. It's purpose is for storage only. Katlyn Avila MD [facility] FILM LIBRARY ORD ERABLES Performing Organization Address [facility] Co de Phone Number [place], [place] documented in this encounter Visit Diagnoses Diagnosis Chronic systolic congestive heart failure Chronic systolic heart failure Non-ST elevation myocardial infarction (NSTEMI) Acute myocardial infarction, subendocardial infarction, episode of care unspecified Acute diastolic heart failure Non-ST elevation myocardial infarction (NSTEMI) Acute myocardial infarction, subendocardial infarction, episode of care unspecified Hypertension Unspecified essential hypertension COPD (chronic obstructive pulmonary disease) Chronic airway obstruction, not elsewhere classified Acute renal failure superimposed on stage 3 chronic kidney disease Pulmonary hypertension due to left ventricular diastolic dysfunction Other chronic pulmonary heart diseases S/P right coronary artery (RCA) stent placement 02/22/2019 in setting of NSTEMI documented in this encounter Administered Medications Inactive Administered Medications - up to 3 most recent administrations Medication Order MAR Action Action Date Dose Rate Site amLODIPine (NORVASC) tablet 10 mg 10 mg, Oral, DAILY, First dose on Mon02/21/19 at 1345, Until Discontinued, Routine Given 02/26/2019 8:03 AM EDT 10 mg Given 02/25/2019 8:28 AM EDT 10 mg Given 02/24/2019 8:09 AM EDT 10 mg aspirin chewable tablet 81 mg 81 mg, Oral, DAILY, First dose on Mon02/22/19 at 0900, Until Discontinued, Routine Given 02/26/2019 8:03 AM EDT 81 mg Given 02/25/2019 8:28 AM EDT 81 mg Given 02/24/2019 8:09 AM EDT 81 mg calcium carbonate (TUMS) chewable tablet 500 mg 500 mg, Oral, 3 TIMES DAILY PRN, Starting on Mon02/22/19 at 0528, Until Mon02/26/19 at 1444, Heartburn, Routine Given 02/24/2019 5:40 PM EDT 500 mg Given 02/23/2019 7:23 PM EDT 500 mg Given 02/22/2019 7:05 PM EDT 500 mg carvedilol (COREG) tablet 12.5 mg 12.5 mg, Oral, 2 TIMES DAILY WITH MEALS, First dose (after last modification) on Mon02/22/19 at 1815, Until Discontinued, Routine Given 02/22/2019 6:09 PM EDT 6.25 mg carvedilol (COREG) tablet 12.5 mg 12.5 mg, Oral, ONCE, 1 dose, On Mon02/22/19 at 2330, Routine Given 02/22/2019 11:26 PM EDT 12.5 mg carvedilol (COREG) tablet 12.5 mg 12.5 mg, Oral, 2 TIMES DAILY WITH MEALS, First dose (after last modification) on 02/24/19 at 1700, Until Discontinued, Routine Given 02/26/2019 8:03 AM EDT 12.5 mg Given 02/25/2019 4:33 PM EDT 12.5 mg Given 02/25/2019 8:28 AM EDT 12.5 mg carvedilol (COREG) tablet 25 mg 25 mg, Oral, 2 TIMES DAILY WITH MEALS, First dose (after last modification) on 02/23/19 at 0800, Until Discontinued, Routine Given 02/24/2019 8:09 AM EDT 25 mg Given 02/23/2019 4:47 PM EDT 25 mg Given 02/23/2019 8:27 AM EDT 25 mg clopidogrel (PLAVIX) tablet 75 mg 75 mg, Oral, DAILY, First dose on Mon02/22/19 at 0900, Until Discontinued, Routine Given 02/26/2019 8:03 AM EDT 75 mg Given 02/25/2019 8:28 AM EDT 75 mg Given 02/24/2019 8:09 AM EDT 75 mg furosemide (LASIX) injection 60 mg 60 mg, Intravenous, ONCE, 1 dose, On Melissa 02/21/19 at 1415 Given 02/21/2019 2:19 PM EDT 60 mg furosemide (LASIX) injection 60 mg 60 mg, Intravenous, ONCE, 1 dose, On Mon02/22/19 at 0200 Given 02/22/2019 2:29 AM EDT 60 mg furosemide (LASIX) injection 60 mg 60 mg, Intravenous, ONCE, 1 dose, On Mon02/22/19 at 1700 Given 02/22/2019 5:58 PM EDT 60 mg furosemide (LASIX) injection 60 mg 60 mg, Intravenous, ONCE, 1 dose, On Mon02/22/19 at 2315 Given 02/22/2019 11:25 PM EDT 60 mg furosemide (LASIX) injection 80 mg 80 mg, Intravenous, ONCE, 1 dose, On 02/23/19 at 0330 Given 02/23/2019 3:49 AM EDT 80 mg furosemide (LASIX) injection 80 mg 80 mg, Intravenous, ONCE, 1 dose, On 02/23/19 at 1030 Given 02/23/2019 10:43 AM EDT 80 mg heparin (porcine) injection 0-4,000 Units 0-4,000 Units, Intravenous, BOLUS PER HEPARIN PROTOCOL, Starting on [place] 02/21/19 at 1409, Until [place] 02/24/19 at 1110, Per Protocol, START ADJUSTMENT SCHEDULE 6 HOURS AFTER STARTING INFUSION Heparin UFH Level between 0.1 - 0.29 IU/mL: Bolus 2,000 units Heparin UFH Level less than 0.1 IU/mL: Bolus 4,000 units, Routine Given 02/22/2019 12:22 AM EDT 2,000 Units Given 02/21/2019 6:12 PM EDT 2,000 Units heparin (Porcine) subcutaneous injection 5,000 Units 5,000 Units, Subcutaneous, EVERY 12 HOURS SCHEDULED (2 times per day), First dose on [place] 02/24/19 at 1230, Until Discontinued, Routine Given 02/25/2019 8:14 PM EDT 5,000 Units Given 02/25/2019 8:28 AM EDT 5,000 Units Given 02/24/2019 8:22 PM EDT 5,000 Units heparin 25,000 units in dextrose 5% 500 mL infusion 0-5,000 Units/hr (0-100 mL/hr), Intravenous, CONTINUOUS, Starting on [place] 02/21/19 at 1430, Until [place] 02/24/19 at 1110, BEGIN infusion at 1,000 units per hr (12 units/kg/hr). MAX INITIAL infusion rate is 1,000 units/hr. Target Heparin UFH Level (anti-Xa activity) = 0.3 - 0.7 IU/mL Start adjustment schedule 6 hours after starting infusion. If Heparin UFH Level is: - less than 0.1 IU/mL, administer PRN bolus and increase rate by 400 units per hr (4 units/kg/hr) - 0.1 - 0.29 IU/mL, administer PRN bolus and increase rate by 200 units per hr (2 units/kg/hr) - 0.3 - 0.7 IU/mL, No Change - 0.71 - 0.85 IU/mL, decrease rate by 100 units per hr (1 units/kg/hr) - 0.86 - 1.05 IU/mL, stop infusion for 30 minutes, then decrease rate by 200 units per hr (2 units/kg/hr) - Greater than 1.05 IU/mL, stop infusion for 60 minutes, then decrease rate by 300 units per hour (3 units/kg/hr) Repeat Heparin UFH Level 6 hours after initiating heparin. Then 6 hours after each dose adjustment. When 2 consecutive Heparin UFH Level within target range of 0.3 - 0.7 IU/mL, change Heparin UFH Level to once every 24 hours with A.M. labs while on heparin. RN to order required Heparin UFH Level - Per Protocol, Routine, Indication: ACS (STEMI vs NSTEMI vs UA) New Bag 02/22/2019 6:11 AM EDT 1,400 Units/hr 28 mL/hr Rate/Dose Verify 02/22/2019 4:00 AM EDT 1,400 Units/hr 28 mL/hr Rate/Dose Verify 02/22/2019 2:00 AM EDT 1,400 Units/hr 28 mL/hr ipratropium-albuterol (DUONEB) 0.5 mg-3 mg(2.5 mg base)/3 mL nebulizer solution 3 mL 3 mL, Nebulization, EVERY 6 HOURS, First dose on [place] 02/21/19 at 1400, Until Discontinued, Routine Given 02/26/2019 8:04 AM EDT 3 mLs Given 02/26/2019 2:01 AM EDT 3 mLs Given 02/25/2019 8:14 PM EDT 3 mLs labetalol (NORMODYNE,TRANDATE) injection 10 mg 10 mg, Intravenous, ONCE, 1 dose, On Mon02/22/19 at 2330, Routine Given 02/22/2019 11:26 PM EDT 10 mg losartan (COZAAR) tablet 25 mg 25 mg, Oral, DAILY, First dose on 02/23/19 at 1030, Until Discontinued, Routine Given 02/24/2019 8:09 AM EDT 25 mg Given 02/23/2019 10:43 AM EDT 25 mg magnesium sulfate 1g in dextrose 5% 100mL 1 g, Intravenous, ONCE, 1 dose, On 02/23/19 at 0630, Administer over 60 Minutes New Bag 02/23/2019 6:37 AM EDT 1 g 100 mL/hr magnesium sulfate 2 g in sterile water 50 mL 2 g, Intravenous, ONCE, 1 dose, On Mon02/22/19 at 0845, Administer over 120 Minutes, Minimum infusion duration is 2 hours. New Bag 02/22/2019 9:03 AM EDT 2 g 25 mL/hr metOLazone (ZAROXOLYN) tablet 2.5 mg 2.5 mg, Oral, ONCE, 1 dose, On 02/23/19 at 0330, Give 30 min prior to lasix, Routine Given 02/23/2019 3:49 AM EDT 2.5 mg nitroGLYcerin (NITROSTAT) SL tablet 0.4 mg 0.4 mg, Sublingual, EVERY 5 MIN PRN, Starting on [place] 02/21/19 at 1217, Until 02/26/19 at 1444, Chest pain, May repeat every 5 minutes for a total of three doses. Notify provider if chest pain not relieved with nitroglycerin. Do not administer nitroglycerin if the patient has received or taken phosphodiesterase (PDE-5) inhibitors such as sildenafil, tadalafil or vardenafil within the last 24 to 72 hours., Routine Given 02/23/2019 10:33 AM EDT 0.4 mg nitroGLYcerin 50 mg in dextrose 5% 250 mL infusion 0-200 mcg/min (0-60 mL/hr), Intravenous, CONTINUOUS, Starting on [place] 02/21/19 at 1500, Until Tu02/26/19 at 1444, For hypertension. Titrate to keep systolic blood pressure less than 150 mmHg. Start at 25 mcg/min and adjust by 25 mcg/min every 5 minutes. Do not to exceed 200 mcg/min., Routine Rate/Dose Change 02/23/2019 6:45 AM EDT 25 mcg/min 7.5 mL/hr Rate/Dose Change 02/23/2019 6:04 AM EDT 50 mcg/min 15 mL/h r Rate/Dose Change 02/23/2019 5:49 AM EDT 75 mcg/min 22.5 mL /hr pantoprazole (PROTONIX) tablet 40 mg 40 mg, Oral, DAILY, First dose on [place] 02/21/19 at 1600, Until Discontinued, DO NOT CRUSH OR OPEN Given 02/26/2019 8:03 AM EDT 40 mg Given 02/25/2019 8:28 AM EDT 40 mg Given 02/24/2019 8:09 AM EDT 40 mg polyethylene glycol (MIRALAX) packet 17 g 17 g, Oral, DAILY, First dose on Mon02/21/19 at 1345, Until Discontinued, Routine Given 02/26/2019 8:03 AM EDT 17 g Given 02/25/2019 6:30 AM EDT 17 g Given 02/24/2019 8:13 AM EDT 17 g potassium chloride (K-DUR/KLOR-CON) extended release tablet 20 mEq 20 mEq, Oral, ONCE, 1 dose, On Mon02/26/19 at 0630, 20 mEq tablet may be dissolved in water for administration, Routine Given 02/26/2019 6:16 AM EDT 20 mEq potassium chloride (K-DUR/KLOR-CON) extended release tablet 40 mEq 40 mEq, Oral, ONCE, 1 dose, On Mon02/23/19 at 1030, 20 mEq tablet may be dissolved in water for administration, Routine Given 02/23/2019 10:43 AM EDT 40 mEq rosuvastatin (CRESTOR) tablet 10 mg 10 mg, Oral, EVERY EVENING, First dose on Mon02/21/19 at 1700, Until Discontinued, Routine Given 02/21/2019 5:05 PM EDT 10 mg rosuvastatin (CRESTOR) tablet 20 mg 20 mg, Oral, EVERY EVENING, First dose (after last modification) on Mon02/22/19 at 1700, Until Discontinued, Routine Given 02/24/2019 5:32 PM EDT 20 mg Given 02/23/2019 4:46 PM EDT 20 mg rosuvastatin (CRESTOR) tablet 20 mg 20 mg, Oral, EVERY EVENING, First dose (after last modification) on Mon02/25/19 at 1700, Until Discontinued, Routine Given 02/25/2019 4:33 PM EDT 20 mg sodium chloride 0.9 % flush 5 mL 5 mL, Intravenous, 2 TIMES DAILY, First dose on Mon02/21/19 at 1245, Until Discontinued, Routine Given 02/25/2019 9:00 PM EDT 5 mLs Given 02/24/2019 8:22 PM EDT 5 mLs Given 02/24/2019 8:16 AM EDT 5 mLs sodium chloride 0.9% 500 mL IV bolus at 166.7 mL/hr, Intravenous, ONCE, 1 dose, On Mon02/24/19 at 1600 New Bag 02/24/2019 3:44 PM EDT 166.7 mL/hr terazosin (HYTRIN) capsule 1 mg 1 mg, Oral, NIGHTLY, First dose on [place] 02/21/19 at 1345, Until Discontinued, Routine Given 02/25/2019 8:14 PM EDT 1 mg Given 02/24/2019 8:22 PM EDT 1 mg Given 02/23/2019 8:02 PM EDT 1 mg torsemide (DEMADEX) tablet 10 mg 10 mg, Oral, DAILY, First dose on 02/25/19 at 0930, Until Discontinued, Routine Given 02/26/2019 8:04 AM EDT 10 mg Given 02/25/2019 9:20 AM EDT 10 mg documented in this encounter Active and Recently Administered Medications Times are shown in EDT. Scheduled Medication Order 02/24/2019 02/25/2019 02/26/2019 amLODIPine (NORVASC) tablet 10 mg 10 mg, Oral, DAILY, First dose on [place] 02/21/19 at 1345, Until Discontinued, Routine 0809 (Given - Provider: Joleen Vazquez RN) 0828 (Given - Provider: Mich Paul RN) 0803 (Given - Provider: Mich Paul, RN) aspirin chewable tablet 81 mg 81 mg, Oral, DAILY, First dose on 02/22/19 at 0900, Until Discontinued, Routine 0809 (Given - Provider: Joleen Vazquez RN) 0828 (Given - Provider: Mich Paul, JAYLEEN) 0803 (Given - Provider: Mich Paul, RN) carvedilol (COREG) tablet 12.5 mg 12.5 mg, Oral, 2 TIMES DAILY WITH MEALS, First dose (after last modification) on Mon02/24/19 at 1700, Until Discontinued, Routine 1700 (Not Given - Provider: Joleen Vazquez RN - Reason: See comment - Comment: held per MD Baker. HR 50) 0828 (Given - Provider: Mich Paul RN)1633 (Given - Provider: Mich Paul, RN) 0803 (Given - Provider: Mich Paul, RN) carvedilol (COREG) tablet 25 mg (CANCELED) 25 mg, Oral, 2 TIMES DAILY WITH MEALS, First dose (after last modification) on Mon02/23/19 at 0800, Until Discontinued, Routine 0809 (Given - Provider: Joleen Vazquez, JAYLEEN) clopidogrel (PLAVIX) tablet 75 mg 75 mg, Oral, DAILY, First dose on Mon02/22/19 at 0900, Until Discontinued, Routine 0809 (Given - Provider: Joleen Vazquez RN) 0828 (Given - Provider: Mich Paul, JAYLEEN) 0803 (Given - Provider: Mich Paul RN) heparin (Porcine) subcutaneous injection 5,000 Units 5,000 Units, Subcutaneous, EVERY 12 HOURS SCHEDULED (2 times per day), First dose on Mon02/24/19 at 1230, Until Discontinued, Routine 1328 (Given - Provider: Joleen Vazquez RN)2021 (Given - Provider: Brittany Blackmon RN) 08 (Given - Provider: Mich Paul RN)2013 (Given - Provider: Trupti Mohan RN) 0900 (Not Given - Provider: Mich Paul RN - Reason: Patient/family refused) ipratropium-albuterol (DUONEB) 0.5 mg-3 mg(2.5 mg base)/3 mL nebulizer solution 3 mL 3 mL, Nebulization, EVERY 6 HOURS, First dose on [place] 02/21/19 at 1400, Until Discontinued, Routine 0200 (Not Given - Provider: Anna Harrison RN - Reason: Patient/family refused)0811 (Given - Provider: Joleen Vazquez RN)1300 (Given - Provider: Mich Paul RN)2021 (Given - Provider: Brittany Blackmon RN) 020 (Not Given - Provider: Brittany Blackmon RN - Reason: Patient/family refused)0828 (Given - Provider: Mich Paul RN)1319 (Given - Provider: Mich Paul RN)2013 (Given - Provider: Trupti Mohan RN) 020 (Given - Provider: Brittany Blackmon RN)0804 (Given - Provider: Mich Paul RN) losartan (COZAAR) tablet 25 mg (CANCELED) 25 mg, Oral, DAILY, First dose on Mon02/23/19 at 1030, Until Discontinued, Routine 0809 (Given - Provider: Joleen Vazquez RN) pantoprazole (PROTONIX) tablet 40 mg 40 mg, Oral, DAILY, First dose on Mon02/21/19 at 1600, Until Discontinued, DO NOT CRUSH OR OPEN 0809 (Given - Provider: Joleen Vazquez, JAYLEEN) 0828 (Given - Provider: Mich Paul, JAYLEEN) 0803 (Given - Provider: Mich Paul, JAYLEEN) polyethylene glycol (MIRALAX) packet 17 g 17 g, Oral, DAILY, First dose on Mon02/21/19 at 1345, Until Discontinued, Routine 0813 (Given - Provider: Joleen Vazquez, JAYLEEN) 0630 (Given - Provider: Brittany Blackmon RN)0900 (Not Given - Provider: Mich Paul RN - Reason: See comment - Comment: given earlier by previous nurse) 0803 (Given - Provider: Mich Paul RN) potassium chloride (K-DUR/KLOR-CON) extended release tablet 20 mEq (COMPLETED) 20 mEq, Oral, ONCE, 1 dose, On Mon02/26/19 at 0630, 20 mEq tablet may be dissolved in water for administration, Routine 0616 (Given - Provider: Brittany Blackmon RN) rosuvastatin (CRESTOR) tablet 20 mg (CANCELED) 20 mg, Oral, EVERY EVENING, First dose (after last modification) on Mon02/22/19 at 1700, Until Discontinued, Routine 1732 (Given - Provider: Joleen Vazquez RN) rosuvastatin (CRESTOR) tablet 20 mg 20 mg, Oral, EVERY EVENING, First dose (after last modification) on Mon02/25/19 at 1700, Until Discontinued, Routine 1633 (Given - Provider: Mich Paul RN) sodium chloride 0.9 % flush 5 mL 5 mL, Intravenous, 2 TIMES DAILY, First dose on Mon02/21/19 at 1245, Until Discontinued, Routine 0816 (Given - Provider: Joleen Vazquez RN)202 (Given - Provider: Brittany Blackmon, JAYLEEN) 0900 (Not Given - Provider: Mich Paul RN - Reason: Contraindicated)2100 (Given - Provider: Brittany Blackmon RN) 0900 (Not Given - Provider: Mich Paul RN - Reason: Contraindicated) sodium chloride 0.9% 500 mL IV bolus (COMPLETED) at 166.7 mL/hr, Intravenous, ONCE, 1 dose, On Mon02/24/19 at 1600 1544 (New Bag - Provider: Joleen Vazquez, RN)2017 (Stopped - Provider: Brittany Blackmon, JAYLEEN) terazosin (HYTRIN) capsule 1 mg 1 mg, Oral, NIGHTLY, First dose on Mon02/21/19 at 1345, Until Discontinued, Routine 2021 (Given - Provider: Brittany Blackmon, JAYLEEN) 2013 (Given - Provider: Trupti Mohan, RN) torsemide (DEMADEX) tablet 10 mg 10 mg, Oral, DAILY, First dose on Mon02/25/19 at 0930, Until Discontinued, Routine 0920 (Given - Provider: Mich Paul RN) 0804 (Given - Provider: Mich Paul, JAYLEEN) Continuous Medication Order 02/24/2019 02/25/2019 02/26/2019 nitroGLYcerin 50 mg in dextrose 5% 250 mL infusion 0-200 mcg/min (0-60 mL/hr), Intravenous, CONTINUOUS, Starting on Mon02/21/19 at 1500, Until Mon02/26/19 at 1444, For hypertension. Titrate to keep systolic blood pressure less than 150 mmHg. Start at 25 mcg/min and adjust by 25 mcg/min every 5 minutes. Do not to exceed 200 mcg/min., Routine PRN Medication Order 02/24/2019 02/25/2019 02/26/2019 calcium carbonate (TUMS) chewable tablet 500 mg 500 mg, Oral, 3 TIMES DAILY PRN, Starting on Mon02/22/19 at 0528, Until Mon02/26/19 at 1444, Heartburn, Routine 1740 (Given - Provider: Joleen Vazquez, RN) lidocaine (XYLOCAINE) 10 mg/mL (1 %) injection 3 mg 3 mg (0.3 mL), Subcutaneous, ONCE PRN, 1 dose, Starting on Mon02/21/19 at 1217, Until Mon02/26/19 at 1444, for discomfort with PIV insertion, Routine nitroGLYcerin (NITROSTAT) SL tablet 0.4 mg 0.4 mg, Sublingual, EVERY 5 MIN PRN, Starting on [place] 02/21/19 at 1217, Until Mon02/26/19 at 1444, Chest pain, May repeat every 5 minutes for a total of three doses. Notify provider if chest pain not relieved with nitroglycerin. Do not administer nitroglycerin if the patient has received or taken phosphodiesterase (PDE-5) inhibitors such as sildenafil, tadalafil or vardenafil within the last 24 to 72 hours., Routine sodium chloride 0.9 % flush 5-20 mL 5-20 mL, Intravenous, EVERY 1 MIN PRN, Starting on [place] 02/21/19 at 1217, Until Mon02/26/19 at 1444, flush, Flush pertains to all indwelling lines. Flush per protocol found in the job aid using the link provided on this medication record., Routine documented in this encounter Care Teams Boss Dyer Relationship Specialty Start Date End Date Bryant Watkins MD [address] [place] [address] PCP - General Internal Medicine 02/21/19 documented as of this encounter
--- OUTSIDE RECORDS SUMMARY | 2024-09-19 10:11 | XMS_ITS | Encounter Summary ---
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 Name Role Phone Unavailable Primary Care Provider Unavailabl e Encounter Details Date Type Department Care Team (Late st Contact Info) Description 02/19/2019 Ancillary Procedure Radiology Library at [facility] [place] [id number] Social History Tobacco Use Types Packs/Day Years Used Date Smoking Tobacco: Never Assessed Sex and Gender Information Value Date Recorded Sex Assigned at Not on file Gender Identity Not on file Sexual Orientation Not on file documented as of this encounter Plan of Treatment Not on file documented as of this encounter Procedures Procedure Name Priority Date/Time Associated Diagnosis Comments FILM LIBRARY STORAGE ONLY DX CHEST Routine 02/19/2019 12:00 AM EDT documented in this encounter Results * Film Library- Storage Only DX Chest (02/19/2019 12:00 AM EDT) Narrative RAD - 02/22/2019 12:57 PM EDT This exam is auto-finalizing. It's purpose is for storage only. Tez Avila MD IMG FILM LIBRARY ORD ERABLES [place] Herrera documented in this encounter Visit Diagnoses Not on filedocumented in this encounter
--- OUTSIDE RECORDS SUMMARY | 2024-09-19 10:11 | XMS_ITS | Encounter Summary ---
Author Organization [facility] Address [facility] [place] [address] Care Team Providers Care Rough And Trueing Machine Operator Name Role Phone Bryant Watkins MD Primary Care Provider [phone] Encounter Details Date Type Department Care Team (Late st Contact Info) Description 02/21/2019 5:15 AM EDT Ancillary Procedure Radiology Library [place] [facility] [place] [id number] Paul Hackett MD [facility] [place] [address] Social History Tobacco Use Types Packs/Day Years [...] FILM LIBRARY STORAGE ONLY DX CHEST Routine 02/21/2019 5:13 AM EDT documented in this encounter Results * Film Library- Storage Only DX Chest (02/21/2019 5:13 AM EDT) Narrative RAD - 02/21/2019 5:13 AM EDT This exam is auto-finalizing. It's purpose is for storage only. Paul Hackett MD IMG FILM LIBRARY ORD ERABLES [place], [place] documented in this encounter Visit Diagnoses Not on filedocumented in this encounter Care Teams Rough And Trueing Machine Operator Relationship Specialty Start Date End Date Bryant Watkins MD [address] [place] [id number] PCP - General Internal Medicine 02/21/19 documented as of this encounter
--- OUTSIDE RECORDS SUMMARY | 2024-09-19 10:11 | XMS_ITS | Encounter Summary ---
Author Organization [facility] Address [address] [place] [address] Care Team Providers Care Operations Support Analyst Name Role Phone Bryant Watkins MD Primary Care Provider [phone] Encounter Details Date Type Department Care Team (Late st Contact Info) Description 09/04/[address] [facility] Pathology & Laboratory Medicine - [facility] [address] [place] [address] Outr Resulting Lab, Provider Social History Tobacco Use Types Packs/Day Years Used Date Smoking Tobacco: Never Assessed Sex and Gender Information Value Date Recorded Sex Assigned at Not on file Gender Identity Not on file Sexual Orientation Not on file documented as of this encounter Plan of Treatment Not on file documented as of this encounter Procedures Procedure Name Priority Date/Time Associated Diagnosis Comments DO NOT ORDER STANDALONE - BROAD COVID TEST Today 09/03/2020 10:00 EDT COVID-19 TESTING Routine 09/03/2020 10:0 0 EDT documented in this encounter Results * DO NOT ORDER STANDALONE - BROAD COVID TEST (09/03/2020 10:00 EDT) COVID-19 rt-PCR Result NEGATIVE Negative 09/05/2020 11:54 EDT [facility] Comment: 2019-novel Coronavirus (2019-nCoV) not detected by the qRT-PCR assay. Consider testing for other respiratory viruses or re-collecting for 2019-nCoV testing. Note: Optimum timing for peak viral levels during infections caused by 2019-nCoV have not been determined. Collection of multiple specimens from the same patient may be necessary to detect the virus. Limitations Positive results are indicative of active infection with SARS-CoV-2 but do not rule out bacterial infection or co-infection with other viruses. The agent detected may not be the definite cause of disease. In addition, detection of viral RNA may not indicate the presence of infectious virus or that SARS-CoV-2 is the causative agent for clinical symptoms. Negative results do not preclude SARS-CoV-2 infection and should not be used as the sole basis for patient management decisions. Negative results must be combined with clinical observations, patient history, and epidemiological information. False negative results may also occur if amplification inhibitors are present in the specimen or if inadequate numbers of organisms are present in the specimen. Optimum specimen types and timing for peak viral levels during infections caused by SARS-CoV-2 have not been fully determined. Collection of multiple specimens (types and time points) from the same patient may be necessary to detect the virus. The test was validated for use with upper respiratory specimens obtained via nasopharyngeal or oropharyngeal swabs in VTM, UTM, M4, M5, M6, saline, and MTM media. The performance of this test has not been established for other specimens. Specimens collected using other FDA recommended Specimen Collection Materials listed in the FDA COVID-19 [employer] communication (February 06, 2020) are processed with the caveat that they were not all validated for use with this test and the result must be interpreted in this context. Furthermore, a false negative results may occur if a specimen is improperly collected, transported or handled. If the virus mutates in the RT-PCR target region, SARS-CoV-2 may not be detected or may be detected less predictably. Inhibitors or other types of interference may produce a false negative result. An interference study evaluating the effect of common cold medications was not performed. This test is not FDA-cleared but its performance characteristics were established by our CLIA-certified, CAP-accredited, high complexity laboratory in accordance with CLIA regulations, [employer] (CAP) guidelines (Jan 30, 2020), and FDA guidance (Jan 11, 2020). This test is only for use under the Food and Drug Administration's Emergency Use Authorization. Swab ENTIRE NASOPHARYNX / Unknown 09/03/2020 10:00 EDT 09/04/2020 15:49 EDT Provider Outr Resulting Lab MICROBIOLOGY - GENERAL ORDERABLES [facility] [place], [place] * COVID-19 TESTING (09/03/2020 10:00 EDT) COVID-19 rt-PCR Result NEGATIVE Negative 09/05/2020 12:45 EDT [facility] Comment: 2019-novel Coronavirus (2019-nCoV) not detected by the qRT-PCR assay. Consider testing for other respiratory viruses or re-collecting for 2019-nCoV testing. Note: Optimum timing for peak viral levels during infections caused by 2019-nCoV have not been determined. Collection of multiple specimens from the same patient may be necessary to detect the virus. Limitations Positive results are indicative of active infection with SARS-CoV-2 but do not rule out bacterial infection or co-infection with other viruses. The agent detected may not be the definite cause of disease. In addition, detection of viral RNA may not indicate the presence of infectious virus or that SARS-CoV-2 is the causative agent for clinical symptoms. Negative results do not preclude SARS-CoV-2 infection and should not be used as the sole basis for patient management decisions. Negative results must be combined with clinical observations, patient history, and epidemiological information. False negative results may also occur if amplification inhibitors are present in the specimen or if inadequate numbers of organisms are present in the specimen. Optimum specimen types and timing for peak viral levels during infections caused by SARS-CoV-2 have not been fully determined. Collection of multiple specimens (types and time points) from the same patient may be necessary to detect the virus. The test was validated for use with upper respiratory specimens obtained via nasopharyngeal or oropharyngeal swabs in VTM, UTM, M4, M5, M6, saline, and MTM media. The performance of this test has not been established for other specimens. Specimens collected using other FDA recommended Specimen Collection Materials listed in the FDA COVID-19 [employer] communication (February 06, 2020) are processed with the caveat that they were not all validated for use with this test and the result must be interpreted in this context. Furthermore, a false negative results may occur if a specimen is improperly collected, transported or handled. If the virus mutates in the RT-PCR target region, SARS-CoV-2 may not be detected or may be detected less predictably. Inhibitors or other types of interference may produce a false negative result. An interference study evaluating the effect of common cold medications was not performed. This test is not FDA-cleared but its performance characteristics were established by our CLIA-certified, CAP-accredited, high complexity laboratory in accordance with CLIA regulations, [employer] (CAP) guidelines (Jan 30, 2020), and FDA guidance (Jan 11, 2020). This test is only for use under the Food and Drug Administration's Emergency Use Authorization. Performing Lab [facility] 09/05/2020 12:45 EDT [facility] Swab 09/03/2020 10:0 0 EDT 09/04/2020 15:49 EDT Provider Outr Resulting Lab MICROBIOLOGY - GENERAL ORDERABLES [facility] [address] [place] [address] [facility] [place], [place] documented in this encounter Visit Diagnoses Not on filedocumented in this encounter Care Teams Operations Support Analyst Relationship Specialty Start Date End Date Bryant Watkins MD [address] [place] [address] PCP - General 06/22/10 documented as of this encounter
--- OUTSIDE RECORDS SUMMARY | 2024-09-19 10:11 | XMS_ITS | Encounter Summary ---
Author Organization [facility] Address [address] [place] [address] Care Team Providers Care Melangeur Operator Name Role Phone Bryant Watkins MD Primary Care Provider [phone] Encounter Details Date Type Department Care Team (Late st Contact Info) Description 09/23/2023 Lab Requisition [facility] Pathology & Laboratory Medicine - [address] [address] Outr Resulting Lab, Provider Social History Tobacco [...] Procedure Name Priority Date/Time Associated Diagnosis Comments LEGIONELLA ANTIGEN DETECTION, URINE Routine 09/22/2023 13:50 EST documented in this encounter Results * LEGIONELLA ANTIGEN DETECTION, URINE (09/22/2023 13:50 EST) Legionella Antigen Detection Negative Negative 09/24/2023 7:23 EST [facility] Urine URINE / Unknown 09/22/2023 1 3:50 EST 09/23/2023 22:19 EST Provider Outr Resulting Lab MICROBIOLOGY - GENERAL ORDERABLES [facility] [address] [place] [address] documented in this encounter Visit Diagnoses Not on filedocumented in this encounter Care Teams Melangeur Operator Relationship Specialty Start Date End Date Bryant Watkins MD [address] [place] [address] PCP - General 06/22/10 documented as of this encounter
--- OUTSIDE RECORDS SUMMARY | 2024-09-19 10:11 | XMS_ITS | Encounter Summary ---
Author Organization [facility] Address [address] [place] [address] Care Team Providers Care Receiver Name Role Phone Bryant Watkins MD Primary Care Provider [phone] Encounter Details Date Type Department Care Team (Late st Contact Info) Description 05/13/2019 Results Only Imaging [facility] [phone] Unknown, Provider, Social History Tobacco Use Types Packs/Day Years Used Date Smoking Tobacco: Never Assessed Sex and Gender Information Value Date Recorded Sex Assigned at Not on file Gender Identity Not on file Sexual Orientation Not on file documented as of this encounter Plan of Treatment Pending Results Name Type Priority Associated Diagnoses Date /Time OUTSIDE IMAGES - OTHER CHEST Imaging 05/13/2019 12:31 EDT OUTSIDE IMAGES - OTHER CHEST Imaging 05/13/2019 12:41 EDT documented as of this encounter Visit Diagnoses Not on filedocumented in this encounter Care Teams Receiver Relationship Specialty Start Date End Date Bryant Watkins MD [address] [place] [address] PCP - General 06/22/10 documented as of this encounter
--- OUTSIDE RECORDS SUMMARY | 2024-09-19 10:11 | XMS_ITS | Encounter Summary ---
Author Organization [facility] Address [facility] [place] [address] Care Team Providers Care Nylon Hot Wire Cutter Name Role Phone Bryant Watkins MD Primary Care Provider [phone] Encounter Details Date Type Department Care Team (Late st Contact Info) Description 02/21/2019 Ancillary Procedure Radiology Library at [facility] [address] [place] [id number] Social History Tobacco Use Types Packs/Day Years [...] Associated Diagnosis Comments FILM LIBRARY STORAGE ONLY ULTRASOUND STUDY Routine 02/21/2019 12:00 AM EDT documented in this encounter Results * Film Library- Storage Only Ultrasound Study (02/21/2019 12:00 AM EDT) Narrative [facility] - 02/22/2019 12:59 PM EDT This exam is auto-finalizing. It's purpose is for storage only. Tez Avila MD G FILM LIBRARY ORD ERABLES [place], [place] documented in this encounter Visit Diagnoses Not on filedocumented in this encounter Care Teams Nylon Hot Wire Cutter Relationship Specialty Start Date End Date Bryant Watkins MD [address] [place] [address] PCP - General Internal Medicine 02/21/19 documented as of this encounter
--- OUTSIDE RECORDS SUMMARY | 2024-09-19 10:11 | XMS_ITS | Encounter Summary ---
Author Organization [facility] Address [facility] [place] [address] Care Team Providers Care Spin Tank Tender Name Role Phone Bryant Watkins MD Primary Care Provider [phone] Reason for Visit * Auth/Cert Specialty Diagnoses / Procedures Referred By Kyle t Referred To Contact Diagnoses NSTEMI Procedures URGENT IPI Referral ID Status Reason Start Date Expiration Date Visits Re quested Visits Authorized [id number] 1 1 Encounter Details Date Type Department Care Team (Late st Contact Info) Description 02/22/2019 11:00 AM EDT - 02/22/2019 12:00 [place] [address] Mehdi Rueda MD [facility] [place] [address] CARDIAC CATHETERIZATION Social History Tobacco Use Types Packs/Day Years Used Date Smoking Tobacco: Never Assessed Sex and Gender Information Value Date Recorded Sex Assigned at Not on file Gender Identity Not on file Sexual Orientation Not on file documented as of this encounter Last Filed Vital Signs Vital Sign Reading Time Taken Comments Blood Pressure 149/83 02/22/2019 11:30 AM EDT Pulse 73 02/22/2019 11:30 AM EDT Temperature 36.6 ??C (97.9 ??F) 02/22/2019 11:30 AM E DT Respiratory Rate 17 02/22/2019 11:30 AM EDT Oxygen Saturation 94% 02/22/2019 11:30 AM EDT Inhaled Oxygen Concentration - - Weight 99.4 kg (219 lb 2.2 oz) 02/22/2019 6:46 A M EDT Height 172.7 cm (5' 8) 02/21/2019 11:50 AM EDT Body Mass Index 33.55 02/21/2019 11:50 AM EDT documented in this encounter Discharge Summaries * Fabiola Coronado MD - 02/26/2019 12:44 PM EDT Discharge Summary Patient Name: Paul Guzmán Patient Age: 68 y.o. Language: Trinidadian Race: White Ethnicity: Not nor Admit date: [...] History of Presentation: History of Present Illness: Paul Guzmán is a 68 y.o. male w/ [...] 3 wbc, hgb, hct plt Recent Labs 02/26/1945802/25/19 04302/24/19 043 WBC 11.4* 12.2* 12.4* HGB 11.0* 11.0* 11.1* HCT 35.1* 34.7* 35.7* PLATELET 355 339 343 Last 3 Lytes Recent Labs 02/26/1945802/25/19 0433 02/24/19 1701 NA 135 136 133* K 3.6 3.9 4.5 CL 97* 97* 93* CO2 24 21* 22 BUN 63* 66* 65* CREATININE 2.06* 2.61* 3.17* Last Ca, Mg, Phos Recent Labs 02/26/19 045 CALCIUM 9.0 Last 3 ProBNP, Trop, CK [...] comparison. No WMA Chest X-ray (02/21/19) at [facility]: Impression: mild to moderate pulmonary vascular [...] appointments: During 8am-5pm Monday through Monday call [phone] to speak with a nurse in the cardiology clinic All other times call [phone] and ask to speak to the assistant business manager consulting sme. Activity level: - No heavy lifting (more [...] up Appointments: PCP: Bryant Watkins MD at [phone] on 03/05 at 11:45 a.m. Future Appointments Date Time Provider Department Center 03/06/2019 9:20 AM LAB, [facility] L Lab [address] [place] [address] 03/06/2019 10:20 AM Delisa Chen APRN [facility] 03/27/2019 11:00 AM Mckay Guevara MD [facility] Your Inpatient Doctor(s) at [facility]: Hemant Diaz MD - Attending physician Reta Benson MD - director informatics Surekha Baker MD - Resident physician Fabiola Coronado MD - Invisible Braces Orthodontist physician Your Primary Care Provider: Bryant Watkins MD [address] / [facility] [address] For questions regarding issues relating to your hospitalization on the Cardiology Service, please contact your inpatient physician through the [facility] Instructional Leader [phone]. Issues after hours and on weekends will be handled by the Hospitalist staff on-call. General Instructions None Future Appointments and Orders Future Appointments and Orders Future Appointments Provider Department Dept Phone 03/06/2019 9:20 AM LAB, THREE L Lab [address] [place] [address] Arrive at: [facility] 03/06/2019 10:20 AM Deilsa Chen APRN Cardiology at [facility] Arrive at: [facility] [phone] 03/27/2019 11:00 AM Reta Benson MD; Mckay Guevara MD Cardiology at [facility] Arrive at: [facility] [phone] Discharge References/Attachments None documented in this encounter Discharge Instructions * Patient Instructions* Fabiola Coronado MD - 02/26/2019 11:55 AM EDT Patient Instructions on Discharge to Home [place] (02/26/19): - Take Crestor 40 mg - [...] appointments: During 8am-5pm Monday through Monday call [phone] to speak with a nurse in the cardiology clinic All other times call [phone] and ask to speak to the assistant business manager consulting sme. Activity level: - No heavy lifting (more [...] up Appointments: PCP: Bryant Watkins MD at [phone] on 03/05 at 11:45 a.m. Future Appointments Date Time Provider Department Lapoint 03/06/2019 9:20 AM [facility] 03/06/2019 10:20 AM Delisa Chen APRN [facility] 03/27/2019 11:00 AM Mckay Guevara MD [facility] Your Inpatient Doctor(s) at [facility]: Hemant Diaz MD - Attending physician Reta Benson MD - director informatics Surekha Baker MD - Resident physician Fabiola Coronado MD - Invisible Braces Orthodontist physician Your Primary Care Provider: Bryant Watkins MD [address] / [place] [address] For questions regarding issues relating to your hospitalization on the Cardiology Service, please contact your inpatient physician through the [facility] Instructional Leader [phone]. Issues after hours and on weekends will [...] 7:30 AM EDT NEPHROLOGY PROGRESS NOTE PATIENT: Paul Guzmán : 1950 REASON FOR CONSULTATION: Non-oliguric [...] Net -1649 ml Labs: CBC: Recent Labs 02/26/1945802/25/1943202/24/19 043 WBC 11.4* 12.2* 12.4* HGB 11.0* 11.0* 11.1* PLATELET 355 339 343 Chemistry: Recent Labs 02/26/1945802/25/193 02/24/19 1701 NA 135 136 133* K 3.6 3.9 4.5 CL 97* 97* 93* CO2 24 21* 22 BUN 63* 66* 65* CREATININE 2.06* 2.61* 3.17* GLUCOSE 108 105 91 Recent Labs 02/26/19 0459 02/25/19 0433 02/24/19 1701 02/24/19 0436 CALCIUM 9.0 8.5 8.5 9.0 MAGNESIUM 1.16* 1.09* -- 1.04 LFT's: No results for input(s): BILITOT, BILIDIR, ALBUMIN, ALKPHOS, ALT, AST in the last 7068 hours. IMPRESSION/ RECOMMENDATIONS: 1. Non-oliguric CARLOS MANUEL - Likely CHERY. Improving. No renal imaging available. Baseline renal function unknown. May have underlying CKD. - No indication for MINING ENGINEER. Continue conservative management. - Adjust Torsemide dose [...] 02/22/2019 in setting of NSTEMI Z95.5 ID: Paul Guzmán is a 68 y.o. male w/ [...] in the last 168 hours. Recent Labs 02/26/19 04502/25/19 0433 02/24/19 1701 NA 135 136 133* [...] The ramus was small. EK/11: NSR Assessment: Paul Guzmán is a 68 y.o. male w/ [...] Coronado MD Medicine PGY-1 Cardiology S2 Pager [phone] Associated attestation - Hemant Diaz MD - [...] 02/22/2019 in setting of NSTEMI Z95.5 ID: Palu Guzmán is a 68 y.o. male w/ [...] lower extremity edema bilaterally Labs: Recent Labs 02/25/19 0433 02/24/19 0436 02/23/19 0403 WBC 12.2* 12.4* 13.4* HGB 11.0* 11.1* 10.5* HCT 34.7* 35.7* 33.5* PLATELET 339 343 350 No results for input(s): INR in the last 168 hours. Recent Labs 02/25/19 0433 02/24/19 17002/24/19 0436 NA 136 133* 137 K 3.9 4.5 3.7 CL 97* 93* 96* CO2 21* 22 24 BUN 66* 65* 52* CREATININE 2.61* 3.17* 2.60* No results for input(s): AST, ALT, ALKPHOS, BILITOT, BILIDIR in the last 168 hours. Recent Labs 02/25/19 0433 02/24/19 1701 02/24/19 0436 02/23/19 0403 CALCIUM 8.5 8.5 9.0 < > 9.1 MAGNESIUM 1.09* -- 1.04 -- 0.93 < > = values in this interval not displayed. Recent Labs 02/21/19 2339 02/21/19 1745 02/21/19 1200 CK 133 185 214* TROPONINT 0.12* 0.15* 0.22* Recent Labs 04/11/19 1200 TSH 0.76 Recent Labs 02/21/19 1200 [...] The ramus was small. EK/11: NSR Assessment: Paul Guzmán is a 68 y.o. male w/ [...] Coronado MD Medicine PGY-1 Cardiology S2 Pager [phone] Associated attestation - Hemant Diaz MD - [...] 95 % 95 % 93 % * Surekha Baker H - 02/24/2019 12:03 PM EDT Inpatient Cardiology [...] to left ventricular diastolic dysfunction I27.22 ID: Paul Guzmán is a 68 y.o. male w/ [...] The ramus was small. EK/11: NSR Assessment: Paul Guzmán is a 68 y.o. male w/ [...] Baker MD Medicine PGY-3 Cardiology S2 Pager [phone] Associated attestation - Hemant Diaz MD - [...] AM EDT Nutrition Services - Education Note Paul Guzmán : 1950 AGE: 68 y.o. Patient Active Problem List Diagnosis Date Noted ??? 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 Hospital-Acute diastolic heart failure 02/21/2019 Priority: High ??? [facility]-L[facility]-EI elevation myocardial infarction (NSTEMI) 02/21/2019 Priority: High ??? Hospital-Hypertension 02/21/2019 ??? Hospital-COPD (chronic obstructive pulmonary disease) 02/21/2019 ??? Hospital-Stage 3 chronic kidney disease 02/21/2019 Reason for Nutrition Intervention: Diet Order Diet Order: [facility], Na2gm Appetite: Good per patient Food allergies: NKFA [...] tolerating current diet without nausea or vomiting. [employer] Supervisor explained to patient about food restrictions and [...] consulted in the interim. YUDELKA Kapoor Pager [phone] * Joleen Vazquez RN - 02/23/2019 10:35 [...] to left ventricular diastolic dysfunction I27.22 ID: Paul Guzmán is a 68 y.o. male w/ [...] Infusions: ??? heparin (porcine) 1,400 Units/hr (02/22/19 06) ??? nitroGLYcerin 25 mcg/min (02/23/19 0645) PRN [...] The ramus was small. EK/11: NSR Assessment: Paul Guzmán is a 68 y.o. male w/ [...] Dispo: CSCU, anticipate possible d/c on Monday [facility] PGY-1 Cardiology S2 Pager [phone] Associated attestation - Hemant Diaz MD - [...] Angio via Radial or Femoral approach, per radial drill press set up operator preference No C/I to long-term DAPT Moderate Sedation [place] Reta Benson MD Cardiovascular Disease Fellow, PGY-4 [facility] # [id number] * Fabiola Coronado MD - 02/22/2019 6:09 [...] Stage 3 chronic kidney disease N18.3 ID: Paul Guzmán is a 68 y.o. male w/ [...] for comparison. No WMA EK/11: NSR Assessment: Paul Guzmán is a 68 y.o. male w/ [...] status, discharge pending clinical course Fabiola Coronado [facility] PGY-1 Cardiology S2 Pager [phone] Associated attestation - Hemant Diaz MD - [...] and oriented; oriented to room and instructed consulting sme chu. Patient hypertensive, see doc flows. Pt [...] Avila MD PCP: Bryant Watkins MD PCP#: [phone] Patient Active Problem List Diagnosis Code ??? Heart failure I50.9 History of Present Illness: Paul Guzmán is a 68 y.o. male w/ [...] Mild to moderate pulmonary vascular congestion Assessment: Paul Guzmán is a 68 y.o. male w/ [...] Medicine, PGY-3 Cardiology S2, Team Pager # [phone] Associated attestation - Katlyn Avila MD - 02/21/2019 5:07 PM EDT CARDIOLOGY ATTENDING NOTE Patient: Paul Guzmán Date of Service: 02/21/2019 Date of [...] minimumof two midnights or is on the [facility] inpatient only procedure list (status C) due to:decompensated congestive heart failure requiring IV medication and fluid monitoring and NSTEMI worrisome for CAD. KATLYN AVILA MD Pager [phone] documented in this encounter Miscellaneous Notes * Care Management - Madina Morel RN - 02/26/2019 9:30 AM EDT In-patient CCM Education/assessment: Paul is 68 year old who lives with Sancho in [place], [place] (near [place]). Has a history of COPD and was [...] information and instruction. Literacy assessment: (REALM-SF from AHRQ) NA Supportive others: Sancho Barriers/Challenges: Denies any. Except hopes to have follow-ups in time closer to home Education completed: unknown: Retired, worked in [place], [employer] in a [employer] HF Self Care Management: Weights: Admit weight [...] AM EDT OUTCOME EVALUATION NOTE: OUTCOME SUMMARY: Paul had a nika, sleeping between care. See [...] chu in reach, roomkept free of obstacles, junior media buyer, alarms and settings reviewed q4 Patient-specific fall [...] in the outpatient cardiac rehabilitation program at [facility] was discussed. Patient agrees to a [...] needed 2 rest stops d/t leg pain [place] mod SOB with stable sat * Consult Note - Dilan Hill MD - 02/25/2019 12:12 PM EDT NEPHROLOGY CONSULT NOTE PATIENT: Paul Guzmán : 1950 REASON FOR CONSULTATION: Non-oliguric [...] 2.60* GLUCOSE 105 91 117 Recent Labs 02/25/19 0433 02/24/19 1701 02/24/19 0436 02/23/19 0403 CALCIUM 8.5 8.5 9.0 < [...] have underlying CKD. - No indication for MINING ENGINEER. Continue conservative management. - Consider going back [...] follow. Please call with any questions. 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 and appears to be improving already, will follow with you * Plan of Care - Brittany Blackmon RN - 02/25/2019 5:18 AM EDT OUTCOME EVALUATION NOTE: OUTCOME SUMMARY: Paul had a restless night, See flow sheet [...] chu in reach, roomkept free of obstacles, junior media buyer, alarms and settings reviewed q4 Patient-specific fall prevention interventions for sensory deficits provided, if applicable: Lighting adjusted for task/safety CPG GOAL OUTCOME EVALUATION: Ongoing * Plan of Care - Joleen Vazquez RN - 02/24/2019 4:05 PM EDT Problem: Patient Care Overview Goal: Plan of Care Review 02/22/196 02/24/19811 Coping/Psychosocial Plan Of Care Reviewed With -- [...] OUTCOME EVALUATION: Goal: Fall Prevention-Safe Patient Handling 02/23/19199902/24/19811 Ramsey Fall Risk History of Falling -- [...] Device Utilized none -- Goal: Infection Control 02/24/19811 Safety Interventions Isolation Precautions standard precautions maintained [...] listening utilized;self-care encouraged Goal: Discharge Needs Assessment 02/23/19 1735 Discharge [...] ACS (Acute Coronary Syndrome) (Adult) CPG). 02/23/19 1734 Cardiac: ACS (Acute Coronary Syndrome) Problems Assessed [...] OUTCOME EVALUATION: Goal: Fall Prevention-Safe Patient Handling 02/23/19723 Ramsey Fall Risk History of Falling 0 [...] Assistive Device Utilized none Goal: Infection Control 02/23/19723 Safety Interventions Isolation Precautions standard precautions maintained [...] ACS (Acute Coronary Syndrome) (Adult) CPG). 02/23/19 173 Cardiac: ACS (Acute Coronary Syndrome) Problems Assessed (Acute Coronary Syndrome (ACS)) all Problems Present (Acute Coronary Syndrome (ACS)) none * Brief Op Note - Mehdi Rueda MD - 02/22/2019 4:13 PM EDT Preliminary Cardiac Catheterization Procedure Note: Patient Name: Paul Guzmán : [id number] MR#: [id number] Case Date: 02/22/2019 Instructional Leader: * Mehdi Rueda MD - Primary * Eladio Preston MD - Fellow Preliminary Cardiac Catheterization Procedure Note: Procedure(s) performed: Coronary Angiography, Righ & Left Heart Cath, PCI-Stent Baseline Frailty Assessment: Definitions from [employer] Study of Health and Aging Clinical Frailty [...] Full report to follow. MEHDI RUEDA MD steamboat inspector Pager [phone] * Initial Assessments - Mica [...] H&P note from Surekha Baker MD : Paul Guzmán is a 68 y.o. male w/ [...] Hospitalizations Within the Past 30 Days: No [facility] admits in last 30 days. Anticipated Length Of Stay (If known): TBD Current Decision-Making Capacity: Patient is A&Ox4 Advance Care Planning: Full Code Not in EPIC. No. Discussed with patient importance and process for doing Advance Directives. Provided copy(ies) of [place] [employer] Advance Directives Taking Steps booklet with forms. If AD's have not been completed then spouse Sancho would be surrogate decision maker per [place] surrogate decision making law. Current Coping/Education/Information Needs: Current coping questions and concerns have been addressed. Current Functional Ability: SBA Functional Status Prior to Admission: independent with ADLs, driving, no DME used at baseline. Home Environment: lives in one level house with 4 steps to enter, no issues with steps per patient. [address] [phone] Social & Family Supports/Community Resources: Lives with spouse Sancho Extended Emergency Contact Information Primary Emergency Contact: SANCHO GUZMÁN Address: [address] [place] [address] Relation: Spouse Health/Prescription Coverage: Primary Insurance: AARP MANAGED MEDICARE Secondary Insurance: N/A Prescription Coverage: Yes Preferred Pharmacy: [facility] in [place], [place] Other: none Primary Care Provider: Bryant Watkins MD [phone] Patient/Caregiver Goals of Treatment: return home when [...] assist with transition of care planning. Mica Guseva, RN Nurse Composite Laminator Pager [phone] * Plan of Care - Dayan Gibbs [...] 4:36 AM EDT DIFFERENTIAL, AUTOMATED Routine 02/25/20 19 4:36 AM EDT CBC (WITH DIFF) Routine [...] Natriuretic Peptide (02/26/2019 4:59 AM EDT) Pathologist [facility] NT-proBNP 466(H) <=125 pg/mL [facility] Blood specimen (specimen) Venous Draw / Unknown 02/26/2019 4:59 AM EDT 02/26/2019 5:54 AM EDT Narrative Resulting Agency Comment Spec In Lab Surekha Baker MD CHEMISTRY ORDERABLES Performing Organization Address City/State/[facility] Co de Phone Number [facility] [place] [address] * (ABNORMAL) Differential, Automated (02/26/2019 4:59 AM EDT) [facility] Neutrophil % 69.0 % [facility] Neutrophil Absolute 7.87(H) 1.70 - 6.10 x10(3)/mc L [facility] Lymph % 18.8 % [facility] Lymphocytes Abs 2.2 0.9 - 3.2 x10(3)/mc L [facility] Monocyte % 8.4 % [facility] Monocyte Abs 1.0(H) 0.3 - 0.9 x10(3)/mc L [facility] Eos % 2.5 % [facility] Eosinophils Abs 0.3 0.0 - 0.4 x10(3)/mc L [facility] Basophil % 0.3 % [facility] Baso Absolute 0.0 0.0 - 0.1 x10(3)/mc L [facility] Immature Gran % 1.00 % [facility] Comment: Immature granulocytes(IG's)percentage and absolute count will include metamyelocytes, myelocytes, and promyelocytes. Blood smears from CBCs yielding IG's will be scanned manually for concordance. If this scan disagrees with the automated IG or if promyelocytes are noted, a manual differential will be performed. Immature Gran Absolute 0.11(H) 0.00 - 0.04 x10(3)/ L [facility] Blood specimen (specimen) 02/26/2019 4:59 AM EDT 02/26/2019 5:18 AM EDT Narrative Resulting Agency Comment Spec In Lab Fabiola Coronado MD HEMATOLOGY ORDERABLE S [facility] [place] [address] * (ABNORMAL) Hemogram (02/26/2019 4:59 AM EDT) White Blood Cell 11.4(H) 4.0 - 9.5 x10(3)/ L [facility] Red Blood Cell 5.72(H) 4.58 - 5.54 x10(6)/mc L [facility] Hemoglobin 11.0(L) 13.7 - 16.5 gm/dL [facility] Hematocrit 35.1(L) 40.5 - 48.5 % [facility] Mean Cell Volume 61.4(L) 82.9 - 93.[address] [facility] Mean Cell Hemoglobin 19.2(L) 27.5 - 32.[address] [facility] Mean Cell Hemoglobin Concentration 31.3(L) 32.0 - 35.7 gm/dL [facility] Platelet 355 145 - 357 x10(3)/mc L [facility] RDW Standard Deviation 35.8(L) 36.0 - 45.[address] [facility] RDW coefficient of variation 18.4(H) 11.4 - 13.8 % [facility] Mean Platelet Volume 9.1 7.6 - 12.[address] [facility] NRBC% auto 0.0 % [facility] NRBC Absolute 0.000 0.000 - 0.000 x10(3)/mc L [facility] Blood specimen (specimen) 02/26/2019 4:59 AM EDT 02/26/2019 5:18 AM EDT Narrative Resulting Agency Comment Spec In Lab Fabiola Coronado MD HEMATOLOGY ORDERABLE S Performing Organization Address [facility] Co de Phone Number [facility] [place] [address] * (ABNORMAL) Magnesium (02/26/2019 4:59 AM EDT) Magnesium 1.16(H) 0.69 - 1.07 mmol/L [facility] Blood specimen (specimen) 02/26/2019 4:59 AM EDT 02/26/2019 5:18 AM EDT Narrative Resulting Agency Comment Spec In Lab Hemant Diaz MD CHEMISTRY ORDERABLES Performing Organization Address [facility] de Phone Number [facility] [place] [address] * (ABNORMAL) Basic Metabolic Panel (non-fasting) (02/26/2019 4:59 AM EDT) Glucose 108 65 - 199 mg/dL [facility] Comment:Diabetes: >=200 mg/d L plus symptoms Blood Urea Nitrogen 63(H) 10 - 20 mg/dL [facility] Creatinine 2.06(H) 0.80 - 1.50 mg/dL [facility] Sodium 135 135 - 145 mmol/L [facility] Potassium 3.6 3.5 - 5.0 mmol/L [facility] Comment: Please note: ??Patients with WBC >100,000 may have falsely elevated Potassium levels. ??For accurate Potassium quantification in these patients send serum separator tube (gold top) for subsequent determinations. ??Contact the Clinical Chemistry Laboratory if there are any questions. Chloride 97(L) 98 - 107 mmol/L [facility] Carbon Dioxide 24 22 - 31 mmol/L [facility] Anion Gap 14 5 - 15 mmol/L [facility] Calcium 9.0 8.5 - 10.5 mg/dL [facility] Est Glomerular Filtration Rate 33(L) >=60 mL/min/1. 73 m?? [facility] Comment: The eGFR was calculated using the CKD-EPI equation. As with all creatinine based estimates of kidney function, eGFR values calculated with the CKD-EPI equation are not accurate in patients with acute kidney failure, extremes of body mass or the acutely ill. http://[employer]/[facility] eGFR 38(L) >=60 mL/min/1. 73 m?? [facility] Comment: The eGFR was calculated using the CKD-EPI equation. As with all creatinine based estimates of kidney function, eGFR values calculated with the CKD-EPI equation are not accurate in patients with acute kidney failure, extremes of body mass or the acutely ill. [email or web address] Blood specimen (specimen) 02/26/2019 4:59 AM EDT 02/26/2019 5:18 AM EDT Narrative Resulting Agency Comment Spec In Lab Hemant Diaz MD CHEMISTRY ORDERABLES Performing Organization Address City/[facility] Co de Phone Number [facility] [place] [address] * (ABNORMAL) Magnesium (02/25/2019 4:33 AM EDT) Magnesium 1.09(H) 0.69 - 1.07 mmol/L [facility] Blood specimen (specimen) Venous Draw / Unknown 02/25/2019 4:33 AM EDT 02/25/2019 5:23 AM EDT Narrative Resulting Agency Comment Spec In Lab Fabiola Coronado MD CHEMISTRY ORDERABLES [facility] [place] [address] * (ABNORMAL) Differential, Automated (02/25/2019 4:33 AM EDT) Neutrophil % 66.6 % [facility] Neutrophil Absolute 8.09(H) 1.70 - 6.10 x10(3)/mc L [facility] Lymph % 20.8 % [facility] Lymphocytes Abs 2.5 0.9 - 3.2 x10(3)/ L [facility] Monocyte % 8.8 % [facility] Monocyte Abs 1.1(H) 0.3 - 0.9 x10(3)/ L [facility] Eos % 2.6 % [facility] Eosinophils Abs 0.3 0.0 - 0.4 x10(3)/[facility] Basophil % 0.2 % [facility] Baso Absolute 0.0 0.0 - 0.1 x10(3)/ L [facility] Immature Gran % 1.00 % [facility] Comment: Immature granulocytes(IG's)percentage and absolute count will include metamyelocytes, myelocytes, and promyelocytes. Blood smears from CBCs yielding IG's will be scanned manually for concordance. If this scan disagrees with the automated IG or if promyelocytes are noted, a manual differential will be performed. Immature Gran Absolute 0.12(H) 0.00 - 0.04 x10(3)/ L [facility] Blood specimen (specimen) 02/25/2019 4:33 AM EDT 02/25/2019 5:23 AM EDT Narrative Resulting Agency Comment Spec In Lab Fabiola Coronado MD HEMATOLOGY ORDERABLE S Performing Organization Address City/[facility]/ZIP Co de Phone Number [facility] [place] [address] * (ABNORMAL) Hemogram (02/25/2019 4:33 AM EDT) White Blood Cell 12.2(H) 4.0 - 9.5 x10(3)/[facility] Red Blood Cell 5.60(H) 4.58 - 5.54 x10(6)/ L [facility] Hemoglobin 11.0(L) 13.7 - 16.5 gm/dL [facility] Hematocrit 34.7(L) 40.5 - 48.5 % [facility] Mean Cell Volume 62.0(L) 82.9 - 93.1 [facility] Mean Cell Hemoglobin 19.6(L) 27.5 - 32.[address] [facility] Mean Cell Hemoglobin Concentration 31.7(L) 32.0 - 35.7 gm/dL [facility] Platelet 339 145 - 357 x10(3)/[facility] RDW Standard Deviation 36.6 36.0 - 45.0 [facility] RDW coefficient of variation 18.4(H) 11.4 - 13.8 % [facility] Mean Platelet Volume 9.7 7.6 - 12.9 [facility] NRBC% auto 0.0 % [facility] NRBC Absolute 0.000 0.000 - 0.000 x10(3)/[facility] Blood specimen (specimen) 02/25/2019 4:33 AM EDT 02/25/2019 5:23 AM EDT Narrative Resulting Agency Comment Spec In Lab Fabiola Coronado MD HEMATOLOGY ORDERABLE S [facility] [place] [address] * (ABNORMAL) Basic Metabolic Panel (non-fasting) (02/25/2019 4:33 AM EDT) Glucose 105 65 - 199 mg/dL [facility] Comment:Diabetes: >=200 mg/d L plus symptoms Blood Urea Nitrogen 66(H) 10 - 20 mg/dL [facility] Creatinine 2.61(H) 0.80 - 1.50 mg/dL [facility] Sodium 136 135 - 145 mmol/L [facility] Potassium 3.9 3.5 - 5.0 mmol/L [facility] Comment: Please note: ??Patients with WBC >100,000 may have falsely elevated Potassium levels. ??For accurate Potassium quantification in these patients send serum separator tube (gold top) for subsequent determinations. ??Contact the Clinical Chemistry Laboratory if there are any questions. Chloride 97(L) 98 - 107 mmol/L [facility] Carbon Dioxide 21(L) 22 - 31 mmol/L [facility] Anion Gap 18(H) 5 - 15 mmol/L [facility] Calcium 8.5 8.5 - 10.5 mg/dL [facility] Est Glomerular Filtration Rate 24(L) >=60 mL/min/1. 73 m?? [facility] Comment: The eGFR was calculated using the CKD-EPI equation. As with all creatinine based estimates of kidney function, eGFR values calculated with the CKD-EPI equation are not accurate in patients with acute kidney failure, extremes of body mass or the acutely ill. [email or web address]/[email or web address] eGFR 28(L) >=60 mL/min/1. 73 m?? [facility] Comment: The eGFR was calculated using the CKD-EPI equation. As with all creatinine based estimates of kidney function, eGFR values calculated with the CKD-EPI equation are not accurate in patients with acute kidney failure, extremes of body mass or the acutely ill. [email or web address] Blood specimen (specimen) 02/25/2019 4:33 AM EDT 02/25/2019 5:23 AM EDT Narrative Resulting Agency Comment Spec In Lab Hemant Diaz MD CHEMISTRY ORDERABLES [facility] [place] [address] * (ABNORMAL) Basic Metabolic Panel (non-fasting) (02/24/2019 5:01 PM EDT) Glucose 91 65 - 199 mg/dL [facility] Comment:Diabetes: >=200 mg/d L plus symptoms Blood Urea Nitrogen 65(H) 10 - 20 mg/dL [facility] Creatinine 3.17(H) 0.80 - 1.50 mg/dL [facility] Sodium 133(L) 135 - 145 mmol/L [facility] Potassium 4.5 3.5 - 5.0 mmol/L [facility] Comment: Please note: ??Patients with WBC >100,000 may have falsely elevated Potassium levels. ??For accurate Potassium quantification in these patients send serum separator tube (gold top) for subsequent determinations. ??Contact the Clinical Chemistry Laboratory if there are any questions. Chloride 93(L) 98 - 107 mmol/L [facility] Carbon Dioxide 22 22 - 31 mmol/L [facility] Anion Gap 18(H) 5 - 15 mmol/L [facility] Calcium 8.5 8.5 - 10.5 mg/dL [facility] Est Glomerular Filtration Rate 19(L) >=60 mL/min/1. 73 m?? [facility] Comment: The eGFR was calculated using the CKD-EPI equation. As with all creatinine based estimates of kidney function, eGFR values calculated with the CKD-EPI equation are not accurate in patients with acute kidney failure, extremes of body mass or the acutely ill. [email or web address]://[employer]/[email or web address] eGFR 22(L) >=60 mL/min/1. 73 m?? [facility] Comment: The eGFR was calculated using the CKD-EPI equation. As with all creatinine based estimates of kidney function, eGFR values calculated with the CKD-EPI equation are not accurate in patients with acute kidney failure, extremes of body mass or the acutely ill. [email or web address] Blood specimen (specimen) 02/24/2019 5:01 PM EDT 02/24/2019 5:15 PM EDT Narrative Resulting Agency Comment Spec In Lab Hemant Diaz MD CHEMISTRY ORDERABLES Performing Organization Address [facility] Co de Phone Number [facility] [place] [address] * Urea nitrogen, urine, random (02/24/2019 11:16 AM EDT) Urea Nitrogen, Urine 483 mg/dL [facility] Urine specimen (specimen) 02/24/2019 11:16 AM EDT 02/24/2019 2:51 PM EDT Narrative Resulting Agency Comment Spec In Lab Hemant Diaz MD URINE ORDERABLES Performing Organization Address [facility] Co de Phone Number [facility] [place] [address] * Creatinine, urine, random (02/24/2019 11:16 AM EDT) Creatinine, Urine 220 mg/dL [facility] Urine specimen (specimen) 02/24/2019 11:16 AM EDT 02/24/2019 2:51 PM EDT Narrative Resulting Agency Comment Spec In Lab Hemant Diaz MD URINE ORDERABLES Performing Organization Address [facility] Co de Phone Number [facility] [place] [address] * Electrolytes, urine, random (02/24/2019 11:16 AM EDT) Sodium, Urine 60 mmol/L [facility] Potassium, Urine 52 mmol/L [facility] Chloride, Urine 29 mmol/L [facility] Urine specimen (specimen) 02/24/2019 11:16 AM EDT 02/24/2019 2:51 PM EDT Narrative Resulting Agency Comment Spec In Lab Hemant Diaz MD URINE ORDERABLES [facility] [place] [address] * (ABNORMAL) _Urinalysis with microscopic (02/24/2019 11:16 AM EDT) Glucose, Urine Dipstick Negative Negative mg/dL [facility] Protein, Urine Dipstick 100(A) Negative mg/dL [facility] Bilirubin, Urine Dipstick Negative Negative mg/dL [facility] Comment: Clinical correlation required for positive Urine Bilirubin results as false positive may occur with some drugs and drug related products. If a false positive is suspected a serum total bilirubin should be considered if clinically indicated. Urobilinogen, Urine Dipstick Normal Normal mg/dL [facility] pH, Urn (dipstick) 5.0 5.0 - 8.0 [facility] Blood, Urine Dipstick Negative Negative mg/dL [facility] Ketone, Urine Dipstick Negative Negative mg/dL [facility] Nitrite, Urine Dipstick Negative Negative [facility] Leukocytes, Urine Dipstick Moderate(A) Negative [facility] Appearance, Urine Dipstick Clear Clear [facility] Specific [place] Urine Automated 1.018 1.002 - 1.030 [facility] Color, Urine Dipstick Yellow Yellow [facility] RBC, Urine 1 0 - 3 /HPF [facility] WBC, Urine 60(H) 0 - 3 /HPF [facility] Bacteria, Urine Moderate(A) None /HPF [facility] Squamous Epithelial Cells Raw Data, Urine 3 <=4 /HPF [facility] Hyaline Casts, Urine 19(H) 0 - 2 /LPF [facility] Urine specimen (specimen) 02/24/2019 11:16 AM EDT 02/24/2019 2:51 PM EDT Narrative Resulting Agency Comment Spec In Lab Hemant Diaz MD URINE ORDERABLES Performing Organization Address City/[facility]/ZIP Co de Phone Number [facility] [place] [address] * (ABNORMAL) Differential, Automated (02/24/2019 4:36 AM EDT) Neutrophil % 64.8 % [facility] Neutrophil Absolute 8.05(H) 1.70 - 6.10 x10(3)/mc L [facility] Lymph % 22.8 % [facility] Lymphocytes Abs 2.8 0.9 - 3.2 x10(3)/mc L [facility] Monocyte % 9.4 % [facility] Monocyte Abs 1.2(H) 0.3 - 0.9 x10(3)/mc L [facility] Eos % 1.8 % [facility] Eosinophils Abs 0.2 0.0 - 0.4 x10(3)/mc L [facility] Basophil % 0.3 % [facility] Baso Absolute 0.0 0.0 - 0.1 x10(3)/mc L [facility] Immature Gran % 0.90 % [facility] Comment: Immature granulocytes(IG's)percentage and absolute count will include metamyelocytes, myelocytes, and promyelocytes. Blood smears from CBCs yielding IG's will be scanned manually for concordance. If this scan disagrees with the automated IG or if promyelocytes are noted, a manual differential will be performed. Immature Gran Absolute 0.11(H) 0.00 - 0.04 x10(3)/mc L [facility] Blood specimen (specimen) 02/24/2019 4:36 AM EDT 02/24/2019 4:52 AM EDT Narrative Resulting Agency Comment Spec In Lab Fabiola Coronado MD HEMATOLOGY ORDERABLE S Performing Organization Address City/[facility]/ZIP Co de Phone Number [facility] [place] [address] * (ABNORMAL) Hemogram (02/24/2019 4:36 AM EDT) White Blood Cell 12.4(H) 4.0 - 9.5 x10(3)/[facility] LABORATORY Red Blood Cell 5.78(H) 4.58 - 5.54 x10(6)/mc L [facility] Hemoglobin 11.1(L) 13.7 - 16.5 gm/dL [facility] Hematocrit 35.7(L) 40.5 - 48.5 % [facility] Mean Cell Volume 61.8(L) 82.9 - 93.1 [facility] Mean Cell Hemoglobin 19.2(L) 27.5 - 32.[address] [facility] Mean Cell Hemoglobin Concentration 31.1(L) 32.0 - 35.7 gm/dL [facility] Platelet 343 145 - 357 x10(3)/[facility] RDW Standard Deviation 36.6 36.0 - 45.0 [facility] RDW coefficient of variation 18.1(H) 11.4 - 13.8 % [facility] Mean Platelet Volume 9.4 7.6 - 12.9 [facility] NRBC% auto 0.2 % [facility] NRBC Absolute 0.030(H) 0.000 - 0.000 x10(3)/[facility] Blood specimen (specimen) 02/24/2019 4:36 AM EDT 02/24/2019 4:52 AM EDT Narrative Resulting Agency Comment Spec In Lab Fabiola Coronado MD HEMATOLOGY ORDERABLE S [facility] [place] [address] * (ABNORMAL) Basic Metabolic Panel (non-fasting) (02/24/2019 4:36 AM EDT) Glucose 117 65 - 199 mg/dL [facility] Comment:Diabetes: >=200 mg/d L plus symptoms Blood Urea Nitrogen 52(H) 10 - 20 mg/dL [facility] Creatinine 2.60(H) 0.80 - 1.50 mg/dL [facility] Sodium 137 135 - 145 mmol/L [facility] Potassium 3.7 3.5 - 5.0 mmol/L [facility] Comment: Please note: ??Patients with WBC >100,000 may have falsely elevated Potassium levels. ??For accurate Potassium quantification in these patients send serum separator tube (gold top) for subsequent determinations. ??Contact the Clinical Chemistry Laboratory if there are any questions. Chloride 96(L) 98 - 107 mmol/L [facility] Carbon Dioxide 24 22 - 31 mmol/L [facility] Anion Gap 17(H) 5 - 15 mmol/L [facility] Calcium 9.0 8.5 - 10.5 mg/dL [facility] Est Glomerular Filtration Rate 25(L) >=60 mL/min/1. 73 m?? [facility] Comment: The eGFR was calculated using the CKD-EPI equation. As with all creatinine based estimates of kidney function, eGFR values calculated with the CKD-EPI equation are not accurate in patients with acute kidney failure, extremes of body mass or the acutely ill. [email or web address] eGFR 29(L) >=60 mL/min/1. 73 m?? [facility] Comment: The eGFR was calculated using the CKD-EPI equation. As with all creatinine based estimates of kidney function, eGFR values calculated with the CKD-EPI equation are not accurate in patients with acute kidney failure, extremes of body mass or the acutely ill. [email or web address] Blood specimen (specimen) 02/24/2019 4:36 AM EDT 02/24/2019 4:52 AM EDT Narrative Resulting Agency Comment Spec In Lab Hemant Diaz MD CHEMISTRY ORDERABLES [facility] [place] [address] * (ABNORMAL) pro-Brain Natriuretic Peptide (02/24/2019 4:36 AM EDT) NT-proBNP 816(H) <=125 pg/mL [facility] Blood specimen (specimen) 02/24/2019 4:36 AM EDT 02/24/2019 4:52 AM EDT Narrative Resulting Agency Comment Spec In Lab Hemant Diaz MD CHEMISTRY ORDERABLES Performing Organization Address [facility]/ZIP Co de Phone Number [facility] [place] [address] * Magnesium (02/24/2019 4:36 AM EDT) Pathologist [facility] Magnesium 1.04 0.69 - 1.07 mmol/L [facility] Blood specimen (specimen) 02/24/2019 4:36 AM EDT 02/24/2019 4:52 AM EDT Narrative Resulting Agency Comment Spec In Lab Hemant Diaz MD CHEMISTRY ORDERABLES Performing Organization Address City/[facility]/ZIP Co de Phone Number [facility] [place] [address] * (ABNORMAL) Basic Metabolic Panel (non-fasting) (02/23/2019 2:15 PM EDT) Pathologist [facility] Glucose 127 65 - 199 mg/dL [facility] Comment:Diabetes: >=200 mg/d L plus symptoms Blood Urea Nitrogen 44(H) 10 - 20 mg/dL [facility] Creatinine 2.27(H) 0.80 - 1.50 mg/dL [facility] Sodium 135 135 - 145 mmol/L [facility] Potassium 3.9 3.5 - 5.0 mmol/L [facility] Comment: Please note: ??Patients with WBC >100,000 may have falsely elevated Potassium levels. ??For accurate Potassium quantification in these patients send serum separator tube (gold top) for subsequent determinations. ??Contact the Clinical Chemistry Laboratory if there are any questions. Chloride 94(L) 98 - 107 mmol/L [facility] Carbon Dioxide 24 22 - 31 mmol/L [facility] Anion Gap 17(H) 5 - 15 mmol/L [facility] Calcium 9.0 8.5 - 10.5 mg/dL [facility] Est Glomerular Filtration Rate 29(L) >=60 mL/min/1. 73 m?? [facility] Comment: The eGFR was calculated using the CKD-EPI equation. As with all creatinine based estimates of kidney function, eGFR values calculated with the CKD-EPI equation are not accurate in patients with acute kidney failure, extremes of body mass or the acutely ill. [email or web address]/[email or web address] eGFR 34(L) >=60 mL/min/1. 73 m?? [facility] Comment: The eGFR was calculated using the CKD-EPI equation. As with all creatinine based estimates of kidney function, eGFR values calculated with the CKD-EPI equation are not accurate in patients with acute kidney failure, extremes of body mass or the acutely ill. [email or web address] Blood specimen (specimen) 02/23/2019 2:15 PM EDT 02/23/2019 2:20 PM EDT Narrative Resulting Agency Comment Spec In Lab Hemant Diaz MD CHEMISTRY ORDERABLES Performing Organization Address City/State/[facility] Co de Phone Number [facility] [place] [address] * EKG 12 Lead (02/23/2019 10:25 AM EDT) Ventricular rate 54 BPM MUSE SYSTEM Atrial Rate 54 BPM MUSE SYSTEM P-R Interval 178 ms MUSE SYSTEM QRS Duration 104 ms MUSE SYSTEM Q-T Interval 460 ms MUSE SYSTEM QTC Calculated (Bezet) 436 ms MUSE SYSTEM Calculated P [place] 87 degrees MUSE SYSTEM Calculated R [place] 27 degrees MUSE SYSTEM Calculated T [place] 63 degrees MUSE SYSTEM INTERPRETATION Sinus bradycardia Otherwise normal ECG When compared with ECG of 22-FEB-2019 16:33, (unconfirmed) Vent. rate has decreased BY ??33 BPM Nonspecific T wave abnormality no longer evident in Inferior leads Confirmed by SENDY, ??JEROD DANGELO ([id number]) on 02/23/2019 6:23:59 PM MUSE SYSTEM 02/23/2019 10:2 5 AM EDT 02/23/2019 6:23 PM EDT Hemant Diaz MD ECG ORDERABLES Performing Organization Address City/[facility]/ZIP Co de Phone Number MUSE SYSTEM * (ABNORMAL) pro-Brain Natriuretic Peptide (02/23/2019 4:03 AM EDT) NT-proBNP 1,461(H) <=125 pg/mL [facility] Blood specimen (specimen) Venous Draw / Unknown 02/23/2019 4:03 AM EDT 02/23/2019 5:03 AM EDT Narrative Resulting Agency Comment Spec In Lab Fabiola Coronado MD CHEMISTRY ORDERABLES Performing Organization Address City/[facility]/ZIP Co de Phone Number [facility] [place] [place] [address] * (ABNORMAL) Differential, Automated (02/23/2019 4:03 AM EDT) Pathologist [facility] Neutrophil % 70.7 % [facility] Neutrophil Absolute 9.51(H) 1.70 - 6.10 x10(3)/mc L [facility] Lymph % 19.7 % [facility] Lymphocytes Abs 2.6 0.9 - 3.2 x10(3)/mc L [facility] Monocyte % 7.8 % [facility] Monocyte Abs 1.0(H) 0.3 - 0.9 x10(3)/mc L [facility] Eos % 0.5 % [facility] Eosinophils Abs 0.1 0.0 - 0.4 x10(3)/mc L [facility] Basophil % 0.3 % [facility] Baso Absolute 0.0 0.0 - 0.1 x10(3)/mc L [facility] Immature Gran % 1.00 % [facility] Comment: Immature granulocytes(IG's)percentage and absolute count will include metamyelocytes, myelocytes, and promyelocytes. Blood smears from CBCs yielding IG's will be scanned manually for concordance. If this scan disagrees with the automated IG or if promyelocytes are noted, a manual differential will be performed. Immature Gran Absolute 0.13(H) 0.00 - 0.04 x10(3)/[facility] Blood specimen (specimen) 02/23/2019 4:03 AM EDT 02/23/2019 4:16 AM EDT Narrative Resulting Agency Comment Spec In Lab Surekha Baker MD HEMATOLOGY ORDERABLE S [facility] [place] [address] * (ABNORMAL) Hemogram (02/23/2019 4:03 AM EDT) White Blood Cell 13.4(H) 4.0 - 9.5 x10(3)/[facility] Red Blood Cell 5.50 4.58 - 5.54 x10(6)/[facility] Hemoglobin 10.5(L) 13.7 - 16.5 gm/dL [facility] Hematocrit 33.5(L) 40.5 - 48.5 % [facility] Mean Cell Volume 60.9(L) 82.9 - 93.[address] [facility] Mean Cell Hemoglobin 19.1(L) 27.5 - 32.[address] [facility] Mean Cell Hemoglobin Concentration 31.3(L) 32.0 - 35.7 gm/dL [facility] Platelet 350 145 - 357 x10(3)/[facility] RDW Standard Deviation 37.0 36.0 - 45.[address] [facility] RDW coefficient of variation 18.3(H) 11.4 - 13.8 % [facility] Mean Platelet Volume 9.1 7.6 - 12.[address] [facility] NRBC% auto 0.2 % [facility] NRBC Absolute 0.030(H) 0.000 - 0.000 x10(3)/mc L [facility] Blood specimen (specimen) 02/23/2019 4:03 AM EDT 02/23/2019 4:16 AM EDT Narrative Resulting Agency Comment Spec In Lab Surekha Baker MD HEMATOLOGY ORDERABLE S [facility] [place] [address] * (ABNORMAL) Basic Metabolic Panel (non-fasting) (02/23/2019 4:03 AM EDT) Glucose 106 65 - 199 mg/dL [facility] Comment:Diabetes: >=200 mg/d L plus symptoms Blood Urea Nitrogen 38(H) 10 - 20 mg/dL [facility] Creatinine 1.94(H) 0.80 - 1.50 mg/dL [facility] Sodium 139 135 - 145 mmol/L [facility] Potassium 3.6 3.5 - 5.0 mmol/L [facility] Comment: Please note: ??Patients with WBC >100,000 may have falsely elevated Potassium levels. ??For accurate Potassium quantification in these patients send serum separator tube (gold top) for subsequent determinations. ??Contact the Clinical Chemistry Laboratory if there are any questions. Chloride 98 98 - 107 mmol/L [facility] Carbon Dioxide 25 22 - 31 mmol/L [facility] Anion Gap 16(H) 5 - 15 mmol/L [facility] Calcium 9.1 8.5 - 10.5 mg/dL [facility] Est Glomerular Filtration Rate 35(L) >=60 mL/min/1. 73 m?? [facility] Comment: The eGFR was calculated using the CKD-EPI equation. As with all creatinine based estimates of kidney function, eGFR values calculated with the CKD-EPI equation are not accurate in patients with acute kidney failure, extremes of body mass or the acutely ill. [email or web address]/[email or web address] eGFR 41(L) >=60 mL/min/1. 73 m?? [facility] Comment: The eGFR was calculated using the CKD-EPI equation. As with all creatinine based estimates of kidney function, eGFR values calculated with the CKD-EPI equation are not accurate in patients with acute kidney failure, extremes of body mass or the acutely ill. [email or web address] Blood specimen (specimen) 02/23/2019 4:03 AM EDT 02/23/2019 4:16 AM EDT Narrative Resulting Agency Comment Spec In Lab Hemant Diaz MD CHEMISTRY ORDERABLES Performing Organization Address [facility] Co de Phone Number [facility] [place] [address] * Magnesium (02/23/2019 4:03 AM EDT) Magnesium 0.93 0.69 - 1.07 mmol/L [facility] Blood specimen (specimen) 02/23/2019 4:03 AM EDT 02/23/2019 4:16 AM EDT Narrative Resulting Agency Comment Spec In Lab Hemant Diaz MD CHEMISTRY ORDERABLES Performing Organization Address [facility] Co de Phone Number [facility] [place] [address] * EKG 12 Lead (02/22/2019 4:33 PM EDT) Ventricular rate 87 BPM MUSE SYSTEM Atrial Rate 87 BPM MUSE SYSTEM P-R Interval 164 ms MUSE SYSTEM QRS Duration 102 ms MUSE SYSTEM Q-T Interval 396 ms MUSE SYSTEM QTC Calculated (Bezet) 476 ms MUSE SYSTEM Calculated P [place] 103 degrees MUSE SYSTEM Calculated R [place] 52 degrees MUSE SYSTEM Calculated T [place] 24 degrees MUSE SYSTEM INTERPRETATION Normal sinus rhythm Normal ECG Confirmed by SENDY, ??JEROD DANGELO ([id number]) on 02/23/2019 6:23:38 PM MUSE SYSTEM 02/22/2019 4:33 PM EDT 02/23/2019 6:23 PM EDT Mehdi Logan MD ECG ORDERABLES MUSE SYSTEM * CARDIAC CATHETERIZATION (02/22/2019 4:15 PM EDT) Anatomical Region Laterality Modality Other Narrative 02/22/2019 4:54 PM EDT ?[facility] ? Cardiac Catheterization/Intervention Report ? Patient Name: Pupino, Paul ? Procedure Date: 02/22/2019 ? A #: [id number] ? Primary Physician: Rueda, Mehdi V ? Case #: [id number] ? File Name: [id number] ? Catheterization Order Number: [id number] ? [facility] ? Final Report [place], [place] ? Patient Name: ? Paul Guzmán ? ID#: ?[id number] ? : ?1950 ? Procedure Date: ? February 22, 2019 ? Case #: ? [id number] ? Room: ? 2 ? Case Physician: ? Mehdi Rueda M.D. ? Start: ?15:03 ?Fellow: ? Eladio Preston M.D. ?Admission: ??02/21/2019 ? Referring Physician: ??Bryant Watkins M.D. ? Procedures: ?* Coronary Angiography ?* Left Heart Catheterization ?* Right Heart Catheterization ?* Oximetry ?* Coronary Stent Insertion ? History ?Paul Guzmán is a 68 year old man. He has hypertension and a family ?history of coronary artery disease. The patient's smoking status is ?Former. He also has hypercholesterolemia managed with lipid therapy. ?Prior to the initiation of this procedure, the patient was designated as ?ASA Class III. The [facility] clinical frailty scale is 4. Vulnerable. ? Diagnostic Tests: ?Prior Coronary Angiography: ? LV ejection fraction within 6 months is 75%. ?Medications Prior to Procedure: ? ASA and Statin. ? Indications for Diagnostic Cath: ?The priority of the diagnostic procedure was Urgent. The indication for ?the laboratory development technician visit is ACS greater than 24 hrs, [...] dose administered prior to arrival in the laboratory development technician. ?Recommend continuing clopidogrel 75 mg PO daily [...] nurse. ??Case time = 01:05. ?Dr. Mehdi Reuda M.D. performed the coronary angiography, left heart ?catheterization, right heart catheterization, oximetry and stent ?insertion-coronary. ? Mehdi Rueda M.D. ? Electronically Signed by: Mehdi Rueda M.D. ? Report Finalized: 02/22/2019 ??16:50 ? Report Last Ammended: 03/28/2019 ??15:09 ? Procedure Note Mehdi Rueda MD - 03/28/2019 [facility] Cardiac Catheterization/Intervention Report Patient Name: Paul Guzmán Procedure Date: 02/22/2019 A #: [id number] Primary Physician: Mehdi Rueda V Case #: [id number] File Name: [id number] Catheterization Order Number: [id number] [facility] FinalReport [place], [place] Patient Name: Paul Guzmán ID#:[id number] :1950 Procedure Date: February 22, 2019 Case #: [id number] Room: 2 Case Physician: Mehdi Rueda M.D. Start: 15:03 Fellow: Eladio Preston M.D. Admission:02/21/2019 Referring Physician: Bryant Watkins M.D. Procedures: * Coronary Angiography * Left Heart Catheterization * Right Heart Catheterization * Oximetry * Coronary Stent Insertion History Paul Guzmán is a 68 year old man. He has hypertension and afamily history of coronary artery disease. The patient's smoking status is Former. He also has hypercholesterolemia managed with lipid therapy. Prior to the initiation of this procedure, the patient wasdesignated as ASA Class III. The [facility] clinical frailty scale is 4. Vulnerable. Diagnostic Tests: Prior Coronary Angiography: LV ejection fraction within 6 months is 75%. Medications Prior to Procedure: ASA and Statin. Indications for Diagnostic Cath: The priority of the diagnostic procedure was Urgent. The indicationfor the laboratory development technician visit is ACS greater than 24 hrs, [...] 11.0 minutes, dose area product was 151,589 fXCvd7tte air kerma was 2,563 mGY. See the [...] dose administered prior to arrival in the laboratory development technician. Recommend continuing clopidogrel 75 mg PO daily [...] Heparin (unfractionated) Level (02/22/2019 12:05 PM EDT) UF [facility] 0.41 IU/[facility] [...] Lab Hemant Diaz MD HEMATOLOGY ORDERABLE S [facility] [place] [address] * Heparin (unfractionated) Level (02/22/2019 5:56 AM EDT) UF Heparin 0.52 IU/mL [facility] [...] Lab Hemant Diaz MD HEMATOLOGY ORDERABLE S [facility] [place] [address] * (ABNORMAL) Differential, Automated (02/22/2019 4:32 AM EDT) Neutrophil % 79.7 % [facility] Neutrophil Absolute 11.86(H) 1.70 - 6.10 x10(3)/mc L [facility] Lymph % 11.8 % [facility] Lymphocytes Abs 1.8 0.9 - 3.2 x10(3)/mc L [facility] Monocyte % 6.8 % [facility] Monocyte Abs 1.0(H) 0.3 - 0.9 x10(3)/mc L [facility] Eos % 0.1 % [facility] Eosinophils Abs 0.0 0.0 - 0.4 x10(3)/ L [facility] Basophil % 0.1 % [facility] Baso Absolute 0.0 0.0 - 0.1 x10(3)/mc L [facility] Immature Gran % 1.50 % [facility] Comment: Immature granulocytes(IG's)percentage and absolute count will include metamyelocytes, myelocytes, and promyelocytes. Blood smears from CBCs yielding IG's will be scanned manually for concordance. If this scan disagrees with the automated IG or if promyelocytes are noted, a manual differential will be performed. Immature Gran Absolute 0.22(H) 0.00 - 0.04 x10(3)/[facility] LABORATORY Blood specimen (specimen) 02/22/2019 4:32 AM EDT 02/22/2019 5:44 AM EDT Narrative Resulting Agency Comment Spec In Lab Surekha Baker MD HEMATOLOGY ORDERABLE S [facility] [place] [address] * (ABNORMAL) Hemogram (02/22/2019 4:32 AM EDT) White Blood Cell 14.9(H) 4.0 - 9.5 x10(3)/[facility] LABORATORY Red Blood Cell 5.58(H) 4.58 - 5.54 x10(6)/[facility] LABORATORY Hemoglobin 10.6(L) 13.7 - 16.5 gm/dL [facility] Hematocrit 33.9(L) 40.5 - 48.5 % [facility] Mean Cell Volume 60.8(L) 82.9 - 93.[address] [facility] Mean Cell Hemoglobin 19.0(L) 27.5 - 32.[address] [facility] Mean Cell Hemoglobin Concentration 31.3(L) 32.0 - 35.7 gm/dL [facility] Platelet 366(H) 145 - 357 x10(3)/[facility] LABORATORY RDW Standard Deviation 37.2 36.0 - 45.0 [facility] LAB[facility]ATORY RDW coefficient of variation 18.6(H) 11.4 - 13.8 % [facility] Mean Platelet Volume 9.2 7.6 - 12.[address] [facility] NRBC% auto 0.0 % [facility] NRBC Absolute 0.000 0.000 - 0.000 x10(3)/[facility] LAB[facility]ATORY Blood specimen (specimen) 02/22/2019 4:32 AM EDT 02/22/2019 5:44 AM EDT Narrative Resulting Agency Comment Spec In Lab Surekha Baker MD HEMATOLOGY ORDERABLE S [facility] [place] [address] * (ABNORMAL) Basic Metabolic Panel (non-fasting) (02/22/2019 4:32 AM EDT) Glucose 130 65 - 199 mg/dL [facility] Comment:Diabetes: >=200 mg/d L plus symptoms Blood Urea Nitrogen 44(H) 10 - 20 mg/dL [facility] Creatinine 1.88(H) 0.80 - 1.50 mg/dL [facility] Sodium 139 135 - 145 mmol/L [facility] Potassium 3.5 3.5 - 5.0 mmol/L [facility] Comment: Please note: ??Patients with WBC >100,000 may have falsely elevated Potassium levels. ??For accurate Potassium quantification in these patients send serum separator tube (gold top) for subsequent determinations. ??Contact the Clinical Chemistry Laboratory if there are any questions. Chloride 99 98 - 107 mmol/L [facility] Carbon Dioxide 24 22 - 31 mmol/L [facility] Anion Gap 16(H) 5 - 15 mmol/L [facility] Calcium 9.3 8.5 - 10.5 mg/dL [facility] Est Glomerular Filtration Rate 36(L) >=60 mL/min/1. 73 m?? [facility] Comment: The eGFR was calculated using the CKD-EPI equation. As with all creatinine based estimates of kidney function, eGFR values calculated with the CKD-EPI equation are not accurate in patients with acute kidney failure, extremes of body mass or the acutely ill. [email or web address] eGFR 42(L) >=60 mL/min/1. 73 m?? [facility] Comment: The eGFR was calculated using the CKD-EPI equation. As with all creatinine based estimates of kidney function, eGFR values calculated with the CKD-EPI equation are not accurate in patients with acute kidney failure, extremes of body mass or the acutely ill. [email or web address] Blood specimen (specimen) 02/22/2019 4:32 AM EDT 02/22/2019 5:44 AM EDT Narrative Resulting Agency Comment Spec In Lab Hemant Diaz MD CHEMISTRY ORDERABLES Performing Organization Address [facility] de Phone Number [facility] [place] [address] * Magnesium (02/22/2019 4:32 AM EDT) Magnesium 0.87 0.69 - 1.07 mmol/L [facility] Blood specimen (specimen) 02/22/2019 4:32 AM EDT 02/22/2019 5:44 AM EDT Narrative Resulting Agency Comment Spec In Lab Hemant Diaz MD CHEMISTRY ORDERABLES Performing Organization Address [facility] de Phone Number [facility] [place] [address] * Heparin (unfractionated) Level (02/21/2019 11:39 PM [...] MD HEMATOLOGY ORDERABLE S Performing Organization Address [facility] Co de Phone Number [facility] [place] [address] * CK (02/21/2019 11:39 PM EDT) Creatine Kinase 133 0 - 200 unit/L [facility] Blood specimen (specimen) 02/21/2019 11:39 PM EDT 02/21/2019 11:45 PM EDT Narrative Resulting Agency Comment Spec In Lab Katlyn Avila MD CHEMISTRY ORDERABLES Performing Organization Address [facility] Co de Phone Number [facility] [place] [address] * (ABNORMAL) Troponin (02/21/2019 11:39 PM EDT) Troponin-T 0.12(H) 0.00 - 0.00 ng/mL [facility] Comment: The 99th percentile for Troponin T is less than 0.01 ng/mL, any detectable cTnT concentration using this assay should be considered elevated. According to the third universal definition of myocardial infarction the following criteria with a clinical presentation consistent with acute myocardial ischemia meets the diagnosis for a myocardial infarction (NH). Detection of a rise and/or fall of cTnT, with at least one value greater than the 99th percentile (> or = 0.01) and with at least one of the following ?? Symptoms of ischemia ?? New or presumed new significant ZT-uiqfihw-O wave (ST-T) changes or new left bundle [...] additional sample may be indicated. Reference: Third Salter Path Definition of Myocardial Infarction. Journal of the [place] [employer] 2012;60:1581-98 Blood specimen (specimen) 02/21/2019 11:39 PM EDT 02/21/2019 11:45 PM EDT Narrative Resulting Agency Comment Spec In Lab Katlyn Avila MD CHEMISTRY ORDERABLES Performing Organization Address [facility] de Phone Number [facility] [place] [address] * Heparin (unfractionated) Level (02/21/2019 5:45 PM [...] MD HEMATOLOGY ORDERABLE S Performing Organization Address [facility] Co de Phone Number [facility] [place] [address] * CK (02/21/2019 5:45 PM EDT) Creatine Kinase 185 0 - 200 unit/L [facility] Blood specimen (specimen) 02/21/2019 5:45 PM EDT 02/21/2019 5:54 PM EDT Narrative Resulting Agency Comment Spec In Lab Katlyn Avila MD CHEMISTRY ORDERABLES Performing Organization Address City/[facility] Co de Phone Number [facility] [place] [address] * (ABNORMAL) Troponin (02/21/2019 5:45 PM EDT) Troponin-T 0.15(H) 0.00 - 0.00 ng/mL [facility] Comment: The 99th percentile for Troponin T is less than 0.01 ng/mL, any detectable cTnT concentration using this assay should be considered elevated. According to the third universal definition of myocardial infarction the following criteria with a clinical presentation consistent with acute myocardial ischemia meets the diagnosis for a myocardial infarction (NH). Detection of a rise and/or fall of cTnT, with at least one value greater than the 99th percentile (> or = 0.01) and with at least one of the following ?? Symptoms of ischemia ?? New or presumed new significant VN-frvgjmh-J wave (ST-T) changes or new left bundle [...] additional sample may be indicated. Reference: Third Salter Path Definition of Myocardial Infarction. Journal of the [place] [employer] 2012;60:1581-98 Blood specimen (specimen) 02/21/2019 5:45 PM EDT 02/21/2019 5:54 PM EDT Narrative Resulting Agency Comment Spec In Lab Katlyn Avila MD CHEMISTRY ORDERABLES [facility] [place] [address] * ECHO COMPLETE (02/21/2019 2:17 PM EDT) EF 75 HEARTLAB SYSTEM Anatomical Region Laterality Modality Other 02/21/2019 Narrative 02/21/2019 4:01 PM EDT Procedure: ?Transthoracic Echocardiogram Patient: ?MICAH ESPOSITO ?(Age): 1950(68y) Med Rec#: ? [id number] ?Sex: ?M ? Site Loc: ? [facility] ?Ht / Wt: ??173(cm)/100(kg) Pt. Loc: ?Adult Floor ? BSA: ?2.13 Study Date: ?? 02/21/2019 ?Pt. Type: Inpatient Tape: ? Referring: Katlyn Avila ([id number]) Reading: Daryl Albert ([id number]) Printing Supplies Sales Representative: Frederick Nunes Interpreting Fellow: Anyi Lemus MD ([id number]) Diagnosis: *Chronic systolic (congestive) heart failure (I50.22) [...] E-wave Vmax ?1.1 ?m/sec ? MV deceleration [id number] ?msec ? MV A-wave Vmax ?0.7 ?m/sec [...] ? Mid-Inferior ?Normal ? Mid-Inferoseptal ?Normal ? Riddle-Septal ? Normal ? Riddle-Anterior ? Normal ? Riddle-Lateral ?Normal ? Riddle-Inferior ? Normal ? Riddle-Tip ?Normal ? This report has been electronically signed by: Daryl Albert MD ? 02/21/2019 16:00:46 Images reviewed and interpretation verified [facility] Cardiac Ultrasound Laboratory Procedure Note Daryl Albert MD - 02/21/2019 Procedure: Transthoracic Echocardiogram Patient: MICAH NUNO(Age): 1950(68y) Med Rec#: [id number] Sex: M Site Loc: [facility] Ht / Wt: 173(cm)/100(kg) Pt. Loc: Adult Floor BSA: 2.13 Study Date: 02/21/2019 Pt. Type: Inpatient Tape: Referring: Katlyn AvilaMartina ([id number]) Reading: Daryl Albert ([id number]) Printing Supplies Sales Representative: Frederick Nunes Interpreting Fellow: Anyi Lemus MD ([id number]) Diagnosis: *Chronic systolic (congestive) heart failure (I50.22) [...] MV E-wave Vmax 1.1 m/sec MV deceleration [id number] msec MV A-wave Vmax 0.7 m/sec MV [...] Normal Mid-Posterolateral Normal Mid-Inferior Normal Mid-Inferoseptal Normal Riddle-Septal Normal Riddle-Anterior Normal Riddle-Lateral Normal Riddle-Inferior Normal Riddle-Tip Normal This report has been electronically signed by: Daryl Albert MD 02/21/2019 16:00:46 Images reviewed and interpretation verified [facility] Cardiac Ultrasound Laboratory Katlyn Avila MD ECHO ORDERABLES * EKG 12 Lead (02/21/2019 12:26 PM EDT) Ventricular rate 76 BPM MUSE SYSTEM Atrial Rate 76 BPM MUSE SYSTEM P-R Interval 174 ms MUSE SYSTEM QRS Duration 108 ms MUSE SYSTEM Q-T Interval 398 ms MUSE SYSTEM QTC Calculated (Bezet) 447 ms MUSE SYSTEM Calculated P [place] 12 degrees MUSE SYSTEM Calculated R [place] 54 degrees MUSE SYSTEM Calculated T [place] 68 degrees MUSE SYSTEM INTERPRETATION Normal sinus rhythm Normal ECG No previous ECGs available Confirmed by MD Tavia, Levi ([id number]) on 02/21/2019 4:05:11 PM MUSE SYSTEM 02/21/2019 12:2 6 PM EDT 02/21/2019 4:05 PM EDT Katlyn Avila MD ECG ORDERABLES MUSE SYSTEM * Hemoglobin A1c (02/21/2019 12:00 PM EDT) Hemoglobin A1c 5.3 4.3 - 5.6 % [facility] Comment: Reference Range: 4.3 - 5.6% [...] Mellitus, Diabetes Care 2013; 36: Suppl. 1, S67-74 Estimated Average Glucose 105 mg/dL [facility] Comment: eAG equivalents for HbA1c percentages: [...] into estimated average glucose values. ??Diabetes Care 2008:31(8):7812-0139. Blood specimen (specimen) Venous Draw / Unknown 02/21/2019 12:00 PM EDT 02/21/2019 10:55 PM EDT Narrative Resulting Agency Comment Spec In Lab Surekha Baker MD CHEMISTRY ORDERABLES Performing Organization Address City/[facility]/ZIP Co de Phone Number [facility] [place] [address] * Scan, Peripheral Blood (02/21/2019 12:00 PM EDT) Plat estimate Increased [facility] RBC Morphology Abnormal [facility] Microcyte 6-10 /HPF [facility] Hypochromia Slight [facility] Target Cells 1-5 /HPF [facility] Stippled RBC Present >1/HPF [facility] Blood specimen (specimen) 02/21/2019 12:00 PM EDT 02/21/2019 12:10 PM EDT Narrative Resulting Agency Comment Spec In Lab Fabiola Coronado MD HEMATOLOGY ORDERABLE S Performing Organization Address [facility]/ZIP Co de Phone Number [facility] [place] [address] * (ABNORMAL) Troponin (02/21/2019 12:00 PM EDT) Pathologist [facility] Troponin-T 0.22(H) 0.00 - 0.00 ng/mL [facility] Comment: The 99th percentile for Troponin T is less than 0.01 ng/mL, any detectable cTnT concentration using this assay should be considered elevated. According to the third universal definition of myocardial infarction the following criteria with a clinical presentation consistent with acute myocardial ischemia meets the diagnosis for a myocardial infarction (NH). Detection of a rise and/or fall of cTnT, with at least one value greater than the 99th percentile (> or = 0.01) and with at least one of the following ?? Symptoms of ischemia ?? New or presumed new significant VJ-ihdvtqg-J wave (ST-T) changes or new left bundle [...] additional sample may be indicated. Reference: Third Salter Path Definition of Myocardial Infarction. Journal of the [place] [employer] 2012;60:1581-98 Blood specimen (specimen) 02/21/2019 12:00 PM EDT 02/21/2019 12:17 PM EDT Narrative Resulting Agency Comment Spec In Lab Katlyn Avila MD CHEMISTRY ORDERABLES Performing Organization Address City/[facility]/ZIP Co de Phone Number [facility] [place] [address] * (ABNORMAL) CK (02/21/2019 12:00 PM EDT) Creatine Kinase 214(H) 0 - 200 unit/L [facility] Blood specimen (specimen) 02/21/2019 12:00 PM EDT 02/21/2019 12:17 PM EDT Narrative Resulting Agency Comment Spec In Lab Katlyn Avila MD CHEMISTRY ORDERABLES Performing Organization Address City/[facility]/ZIP Co de Phone Number [facility] [place] [address] * (ABNORMAL) pro-Brain Natriuretic Peptide (02/21/2019 12:00 PM EDT) NT-proBNP 5,843(H) <=125 pg/mL [facility] Blood specimen (specimen) 02/21/2019 12:00 PM EDT 02/21/2019 12:17 PM EDT Narrative Resulting Agency Comment Spec In Lab Katlyn Avila MD CHEMISTRY ORDERABLES Performing Organization Address City/[facility]/ZIP Co de Phone Number [facility] [place] [address] * TSH (02/21/2019 12:00 PM EDT) Thyroid Stimulating Hormone 0.76 0.27 - 4.20 mcIU/mL [facility] Blood specimen (specimen) 02/21/2019 12:00 PM EDT 02/21/2019 12:17 PM EDT Narrative Resulting Agency Comment Spec In Lab Katlyn Avila MD CHEMISTRY ORDERABLES Performing Organization Address [facility] Co de Phone Number [facility] [place] [address] * Magnesium (02/21/2019 12:00 PM EDT) Pathologist [facility] Magnesium 0.88 0.69 - 1.07 mmol/L [facility] Blood specimen (specimen) 02/21/2019 12:00 PM EDT 02/21/2019 12:17 PM EDT Narrative Resulting Agency Comment Spec In Lab Katlyn Avila MD CHEMISTRY ORDERABLES Performing Organization Address [facility] de Phone Number [facility] [place] [address] * POCT Glucose (02/21/2019 12:00 PM EDT) [facility] Glucose, POC 139 65 - 199 mg/dL [facility] Comment: Supplemental ranges: <140 mg/dL before meals <180 mg/dL all other times of the day Blood specimen (specimen) 02/21/2019 12:00 PM EDT 02/21/2019 12:00 PM EDT Katlyn Avila MD POINT OF CARE TEST O RDERABLES Performing Organization Address [facility] Co de Phone Number [facility] [place] [address] * Heparin (unfractionated) Level (02/21/2019 12:00 PM EDT) [facility] UF Heparin 0.09 IU/mL [facility] [...] Lab Katlyn Avila MD HEMATOLOGY ORDERABLE S Performing Organization Address City/State/[facility] Co de Phone Number [facility] [place] [address] * (ABNORMAL) Differential, Automated (02/21/2019 12:00 PM EDT) Neutrophil % 93.0 % [facility] Neutrophil Absolute 15.67(H) 1.70 - 6.10 x10(3)/mc L [facility] Lymph % 4.8 % [facility] Lymphocytes Abs 0.8(L) 0.9 - 3.2 x10(3)/mc L [facility] Monocyte % 0.9 % [facility] Monocyte Abs 0.2(L) 0.3 - 0.9 x10(3)/mc L [facility] Eos % 0.1 % [facility] Eosinophils Abs 0.0 0.0 - 0.4 x10(3)/mc L [facility] Basophil % 0.1 % [facility] Baso Absolute 0.0 0.0 - 0.1 x10(3)/mc L [facility] Immature Gran % 1.10 % [facility] Comment: Immature granulocytes(IG's)percentage and absolute count will include metamyelocytes, myelocytes, and promyelocytes. Blood smears from CBCs yielding IG's will be scanned manually for concordance. If this scan disagrees with the automated IG or if promyelocytes are noted, a manual differential will be performed. Immature Gran Absolute 0.18(H) 0.00 - 0.04 x10(3)/[facility] LABORATORY Blood specimen (specimen) 02/21/2019 12:00 PM EDT 02/21/2019 12:10 PM EDT Narrative Resulting Agency Comment Spec In Lab Fabiola Coronado MD HEMATOLOGY ORDERABLE S [facility] [place] [address] * (ABNORMAL) Hemogram (02/21/2019 12:00 PM EDT) White Blood Cell 16.8(H) 4.0 - 9.5 x10(3)/[facility] LABORATORY Red Blood Cell 5.88(H) 4.58 - 5.54 x10(6)/[facility] Hemoglobin 11.3(L) 13.7 - 16.5 gm/dL [facility] Hematocrit 36.0(L) 40.5 - 48.5 % [facility] Mean Cell Volume 61.2(L) 82.9 - 93.[address] [facility] Mean Cell Hemoglobin 19.2(L) 27.5 - 32.[address] [facility] Mean Cell Hemoglobin Concentration 31.4(L) 32.0 - 35.7 gm/dL [facility] Platelet 408(H) 145 - 357 x10(3)/[facility] LABORATORY RDW Standard Deviation 38.2 36.0 - 45.[address] [facility] RDW coefficient of variation 19.5(H) 11.4 - 13.8 % [facility] Mean Platelet Volume 9.1 7.6 - 12.[address] [facility] NRBC% auto 0.0 % [facility] NRBC Absolute 0.000 0.000 - 0.000 x10(3)/mc L [facility] Blood specimen (specimen) 02/21/2019 12:00 PM EDT 02/21/2019 12:10 PM EDT Narrative Resulting Agency Comment Spec In Lab Fabiola Coronado MD HEMATOLOGY ORDERABLE S [facility] [place] [address] * (ABNORMAL) Basic Metabolic Panel (non-fasting) (02/21/2019 12:00 PM EDT) Glucose 138 65 - 199 mg/dL [facility] Comment:Diabetes: >=200 mg/d L plus symptoms Blood Urea Nitrogen 37(H) 10 - 20 mg/dL [facility] Creatinine 1.91(H) 0.80 - 1.50 mg/dL [facility] Sodium 140 135 - 145 mmol/L [facility] Potassium 4.4 3.5 - 5.0 mmol/L [facility] Comment: Please note: ??Patients with WBC >100,000 may have falsely elevated Potassium levels. ??For accurate Potassium quantification in these patients send serum separator tube (gold top) for subsequent determinations. ??Contact the Clinical Chemistry Laboratory if there are any questions. Chloride 99 98 - 107 mmol/L [facility] Carbon Dioxide 23 22 - 31 mmol/L [facility] Anion Gap 18(H) 5 - 15 mmol/L [facility] Calcium 10.2 8.5 - 10.5 mg/dL [facility] Est Glomerular Filtration Rate 36(L) >=60 mL/min/1. 73 m?? [facility] Comment: The eGFR was calculated using the CKD-EPI equation. As with all creatinine based estimates of kidney function, eGFR values calculated with the CKD-EPI equation are not accurate in patients with acute kidney failure, extremes of body mass or the acutely ill. http://[employer]/[facility] eGFR 41(L) >=60 mL/min/1. 73 m?? [facility] Comment: The eGFR was calculated using the CKD-EPI equation. As with all creatinine based estimates of kidney function, eGFR values calculated with the CKD-EPI equation are not accurate in patients with acute kidney failure, extremes of body mass or the acutely ill. http://[employer]/[facility] Blood specimen (specimen) 02/21/2019 12:00 PM EDT 02/21/2019 12:10 PM EDT Narrative Resulting Agency Comment Spec In Lab Katlyn Avila MD CHEMISTRY ORDERABLES Performing Organization Address [facility] Co de Phone Number [facility] [place] [address] * Film Library- Storage Only Ultrasound Study (02/21/2019 12:00 AM EDT) Narrative [facility] - 02/22/2019 12:59 PM EDT This exam is auto-finalizing. It's purpose is for storage only. Katlyn Avila MD [facility] [place] [place] FILM LIBRARY ORD ERABLES Performing Organization Address [facility] de Phone Number [place], [place] * Film Library- Storage Only DX Chest (02/19/2019 12:00 AM EDT) Narrative [facility] - 02/22/2019 12:57 PM EDT This exam is auto-finalizing. It's purpose is for storage only. Katlyn Avila MD [facility] [place] [place] FILM LIBRARY ORD ERABLES Performing Organization Address [facility] Co de Phone Number [place], [place] documented in this encounter Visit Diagnoses Not on filedocumented in this encounter Administered Medications Inactive Administered Medications - up to 3 most recent administrations Medication Order MAR Action Action Date Dose Rate Site amLODIPine (NORVASC) tablet 10 mg 10 mg, Oral, DAILY, First dose on Melissa 02/21/19 at 1345, Until Discontinued, Routine Given 02/26/2019 [...] on Mon02/24/19 at 1700, Until Discontinued, Routine Given 02/26/2019 8:03 AM EDT 12.5 mg Given 02/25/2019 4:33 PM EDT 12.5 mg Given 02/25/2019 8:28 AM EDT 12.5 mg clopidogrel (PLAVIX) tablet 75 mg 75 mg, Oral, DAILY, First dose on Mon02/22/19 at 0900, Until Discontinued, Routine Given 02/26/2019 8:03 AM EDT 75 mg Given 02/25/2019 8:28 AM EDT 75 mg Given 02/24/2019 8:09 AM EDT 75 mg fentaNYL 50 mcg/mL multi-dose injection ONCE PRN, Starting on Mon02/22/19 at 1458, Until Mon02/22/19 at 1700, Intra-Operative (Intra-Procedure), Routine Given 02/22/2019 4:01 PM EDT 25 mcg Given 02/22/2019 2:58 PM EDT 25 mcg heparin (porcine) injection ONCE PRN, Starting on Mon02/22/19 at 1520, Until Mon02/22/19 at 1700, Cath (Intra-Procedure), Routine Given 02/22/2019 3:40 PM EDT 4,000 Units Given 02/22/2019 3:20 PM EDT 3,000 Units heparin (Porcine) subcutaneous injection 5,000 Units 5,000 Units, Subcutaneous, EVERY 12 HOURS SCHEDULED (2 times per day), First dose on Mon02/24/19 at 1230, Until Discontinued, Routine Given 02/25/2019 8:14 PM EDT 5,000 Units Given 02/25/2019 8:28 AM EDT 5,000 Units Given 02/24/2019 8:22 PM EDT 5,000 Units ipratropium-albuterol (DUONEB) 0.5 mg-3 mg(2.5 mg base)/3 mL nebulizer solution 3 mL 3 mL, Nebulization, EVERY 6 HOURS, First dose on Mon02/21/19 at 1400, Until Discontinued, Routine Given 02/26/2019 8:04 AM EDT 3 mLs Given 02/26/2019 2:01 AM EDT 3 mLs Given 02/25/2019 8:14 PM EDT 3 mLs midazolam (PF) (VERSED) multi-dose injection ONCE PRN, Starting on Mon02/22/19 at 1456, Until Mon02/22/19 at 1700, Cath (Intra-Procedure), Routine Given 02/22/2019 4:01 PM EDT 1 mg Given 02/22/2019 2:56 PM EDT 1 mg nitroGLYcerin (NITROSTAT) SL tablet 0.4 mg 0.4 mg, Sublingual, EVERY 5 MIN PRN, Starting on Mon02/21/19 at 1217, Until Mon02/26/19 at 1444, Chest [...] 02/23/2019 10:33 AM EDT 0.4 mg nitroGLYcerin 100 mcg/mL intracoronary dilution ONCE PRN, Starting on Mon02/22/19 at 1516, Until Mon02/22/19 at 1700, Cath (Intra-Procedure), Routine Given 02/22/2019 3:46 PM EDT 200 mcg Given 02/22/2019 3:16 PM EDT 150 mcg nitroGLYcerin 50 mg in dextrose 5% 250 [...] 17 g, Oral, DAILY, First dose on Melissa 02/21/19 at 1345, Until Discontinued, Routine Given 02/26/2019 8:03 AM EDT 17 g Given 02/25/2019 6:30 AM EDT 17 g Given 02/24/2019 8:13 AM EDT 17 g sodium chloride 0.9 % flush 5 mL 5 mL, Intravenous, 2 TIMES DAILY, First dose on Melissa 02/21/19 at 1245, Until Discontinued, Routine Given 02/25/2019 9:00 PM EDT 5 mLs Given 02/24/2019 8:22 PM EDT 5 mLs Given 02/24/2019 8:16 AM EDT 5 mLs terazosin (HYTRIN) capsule 1 mg 1 mg, [...] Given 02/25/2019 9:20 AM EDT 10 mg verapamil (ISOPTIN) injection ONCE PRN, Starting on Mon02/22/19 at 1516, Until Mon02/22/19 at 1619, Administer over 2 Minutes, Cath (Intra-Procedure) Given 02/22/2019 3:16 PM EDT 2.5 mg documented in this encounter Active and Recently Administered Medications Times are shown in EDT. Scheduled Medication Order 02/24/2019 02/25/2019 02/26/2019 amLODIPine (NORVASC) tablet 10 mg 10 mg, Oral, DAILY, First dose on Melissa 02/21/19 at 1345, Until Discontinued, Routine 0809 (Given - Provider: Joleen Vazquez RN) 0828 (Given - Provider: Mich Paul RN) 0803 (Given - Provider: Mich Paul RN) aspirin chewable tablet 81 mg 81 mg, Oral, DAILY, First dose on 02/22/19 at 0900, Until Discontinued, Routine 0809 (Given - Provider: Joleen Vazquez RN) 0828 (Given - Provider: Mich Paul RN) 0803 (Given - Provider: Mich Paul, JAYLEEN) carvedilol (COREG) tablet 12.5 mg 12.5 mg, Oral, 2 TIMES DAILY WITH MEALS, First dose (after last modification) on Mon02/24/19 at 1700, Until Discontinued, Routine 1700 (Not Given - Provider: Joleen Vazquez RN - Reason: See comment - Comment: held per MD Baker. HR 50) 0828 (Given - Provider: Mich Paul RN)1633 (Given - Provider: Mich Paul, JAYLEEN) 0803 (Given - Provider: Mich Paul RN) carvedilol (COREG) tablet 25 mg (CANCELED) 25 mg, Oral, 2 TIMES DAILY WITH MEALS, First dose (after last modification) on 02/23/19 at 0800, Until Discontinued, Routine 0809 (Given - Provider: Joleen Vazquez RN) clopidogrel (PLAVIX) tablet 75 mg 75 mg, Oral, DAILY, First dose on 02/22/19 [...] Discontinued, Routine 1328 (Given - Provider: Joleen Vazquez, JAYLEEN)2021 (Given - Provider: Brittany Blackmon RN) 0828 (Given - Provider: Mich Paul RN)2013 (Given - Provider: Trupti Mhoan RN) 0900 (Not Given - Provider: Mich [...] Mich Paul RN)2021 (Given - Provider: Brittany Blackmon, JAYLEEN) 0200 (Not Given - Provider: Brittany Blackmon RN - Reason: Patient/family refused)08 (Given - Provider: Mich Paul RN)1319 (Given - Provider: Mich Paul RN)2013 (Given - Provider: Trupti Mohan, JAYLEEN) 020 (Given - Provider: Brittany Blackmon RN)0804 [...] OR OPEN 0809 (Given - Provider: Joleen Vazquez RN) 0828 (Given - Provider: Mich Paul, JAYLEEN) 0803 (Given - Provider: Mich Paul, JAYLEEN) polyethylene glycol (MIRALAX) packet 17 g 17 g, Oral, DAILY, First dose on Mon02/21/19 at 1345, Until Discontinued, Routine 0813 (Given - Provider: Joleen Vzaquez RN) 0630 (Given - Provider: Brittany Blackmon RN)0900 [...] Discontinued, Routine 1732 (Given - Provider: Joleen Vazquez, JAYLEEN) rosuvastatin (CRESTOR) tablet 20 mg 20 mg, Oral, EVERY EVENING, First dose (after last modification) on Mon02/25/19 at 1700, Until Discontinued, Routine 1633 (Given - Provider: Mich Paul RN) sodium chloride 0.9 % flush 5 mL 5 mL, Intravenous, 2 TIMES DAILY, First dose on Mon02/21/19 at 1245, Until Discontinued, Routine 0816 (Given - Provider: Joleen Vazquez RN)2021 (Given - Provider: Brittany Blackmon RN) 0900 (Not Given - Provider: Mich Paul RN - Reason: Contraindicated)2100 (Given - Provider: Brittany Blackmon RN) 0900 (Not Given - Provider: Mich Paul RN - Reason: Contraindicated) sodium chloride 0.9% 500 mL IV bolus (COMPLETED) at 166.7 mL/hr, Intravenous, ONCE, 1 dose, On Mon02/24/19 at 1600 1544 (New Bag - Provider: Joleen Vazquez, JAYLEEN)2017 (Stopped - Provider: Brittany Blackmon, JAYLEEN) terazosin (HYTRIN) capsule 1 mg 1 mg, Oral, NIGHTLY, First dose on Mon02/21/19 at 1345, Until Discontinued, Routine 2021 (Given - Provider: Brittany Blackmon, JAYLEEN) 2013 (Given - Provider: Trupti Mohan RN) torsemide (DEMADEX) tablet 10 mg 10 mg, Oral, DAILY, First dose on Mon02/25/19 at 0930, Until Discontinued, Routine 0920 (Given - Provider: Mich Paul RN) 08 (Given - Provider: Mich Paul RN) Continuous Medication Order 02/24/2019 02/25/2019 02/26/2019 nitroGLYcerin [...] Routine 1740 (Given - Provider: Joleen Vazquez, JAYLEEN) lidocaine (XYLOCAINE) 10 mg/mL (1 %) injection 3 mg 3 mg (0.3 mL), Subcutaneous, ONCE PRN, 1 dose, Starting on Mon02/21/19 at 1217, Until Mon02/26/19 at 1444, for discomfort with PIV insertion, Routine nitroGLYcerin (NITROSTAT) SL tablet 0.4 mg 0.4 mg, Sublingual, EVERY 5 MIN PRN, Starting on Mon19 at 1217, Until Mon02/26/19 at 1444, Chest [...] Routine documented in this encounter Care Teams Spin Tank Tender Relationship Specialty Start Date End Date Bryant Watkins MD [address] [place] [address] PCP - General Internal Medicine 02/21/19 documented as of this encounter
--- OUTSIDE RECORDS SUMMARY | 2024-09-19 10:11 | XMS_ITS | Encounter Summary ---
Author Organization [facility] Address [facility] [place] [address] Care Team Providers Care Fish Bailer Name Role Phone Bryant Watkins MD Primary Care Provider [phone] Encounter Details Date Type Department Care Team (Late st Contact Info) Description 02/21/2019 Telephone Cardiology at [address] [id number] Benny Perez MD [facility] [place] [address] Social History Tobacco Use Types Packs/Day Years Used Date Smoking Tobacco: Never Assessed Sex and Gender Information Value Date Recorded Sex Assigned at Not on file Gender Identity Not on file Sexual Orientation Not on file documented as of this encounter Miscellaneous Notes * Telephone Encounter - Benny Perez MD - 02/21/2019 4:54 AM EDT Telephone Triage Note Initial Contact Date: 02/21/19 Initial contact time: 4:50 AM Referring Provider: Dr. Cuevas Patient Location: [facility] Presenting Symptoms per OSH: Mr. Guzmán is a 68 year old man with hist ory of COPD, HTN, CKD, former smoker who presents with worsening shortness of breath with episodes of chest burning. He was evaluated in ED 2 days ago, and treated for COPD exacerbation. However, his breathing got worse and he presented again to ED. He was mildly hypoxic to 88% on RA initially. CXR with pulmonary edema and exam with lower extremity edema,consistent with CHF. Labs significant for WBC 22 (thought to be due to steroids), Cr 1.9 (baseline 1.6-1/9), Tn 0.61, proBNP 4000. He has had no chest pain in the ED. ECG with NSR and lateral ST depressions. He has been given 40 mg IV lasix. He is now saturating 95% on 2 L NC. Otherwise vitals stable with HR 97, BP 135/71. Plan: 68 yo M who presents with her CHF. I think his troponin elevation is more likely in setting of CHF;however, I asked provider to trend troponin and if going up, or patient develops chest pain, would be reasonable to start IV heparin at that time. For now, suggested aspirin and statin. We will transfer patient to [facility] when bed is available. I made the above recommendations with information provided to me over the phone and not able to interview or examine the patient myself. Benny Perez MD Label Tacker Pager [phone] documented in this encounter Plan of Treatment Not on file documented as of this encounter Visit Diagnoses Not on filedocumented in this encounter Care Teams Fish Bailer Relationship Specialty Start Date End Date Bryant Watkins MD [address] [place] [address] PCP - General Internal Medicine 02/21/19 documented as of this encounter
--- OUTSIDE RECORDS SUMMARY | 2024-09-19 10:11 | XMS_ITS | Encounter Summary ---
Author Organization [facility] Address [address] [place] [address] Care Team Providers Care Welding Machine Operator Electron Beam Name Role Phone Unknown, Provider Primary Care Provider Unava ilable Encounter Details Date Type Department Care Team (Late st Contact Info) Description 06/18/2010 Results Only [facility] - [facility] ([facility]) [address] [place], [place] [id number] Dilan Alonso MD [address] [place] [address] Social History Tobacco Use Types Packs/Day Years Used Date Smoking Tobacco: Never Assessed Sex and Gender Information Value Date Recorded Sex Assigned at Not on file Gender Identity Not on file Sexual Orientation Not on file documented as of this encounter Plan of Treatment Not on file documented as of this encounter Procedures Procedure Name Priority Date/Time Associated Diagnosis Comments SURGICAL PATHOLOGY Routine 06/18/2010 0:00 EDT documented in this encounter Results * SURGICAL PATHOLOGY (06/18/2010 0:00 EDT) Pathology Report: SURGICAL PATHOLOGY REPORT ? Reports generated via electronic interface contain original data; ? however they are lacking the format of the original report. ? Caution should be taken when reading/interpreti ng unformatted reports. ? Name: ? MICAH, PAUL Howard ? Accession #: ? [id number] ? : ? 1950 (Age: 59) ??M ? Collect Date: ? 06/18/2010 ? Location: ? [facility] ? Receive Date: ? 06/19/2010 ? Provider: DILAN ALONSO MD ? Copy to: KATELYN SERNA MD ? Final Pathologic Diagnosis: ? A. ?Duodenum, biopsies: ? 1. ?Duodenal mucosa with no pathologic features. ? B. ?Stomach, antrum, biopsies: ? 1. ?Antral type mucosa with mild reactive epithelial changes. ? C. ?Stomach, body, biopsies: ? 1. ?Oxyntic type mucosa with no specific pathologic features. ? D. ?Colon, transverse, polyp, biopsy: ? 1. ?Colonic mucosa with no specific pathologic features. ??See comment. ? Comment: ? Deeper levels of specimen (D) (transverse colon) have been examined. ??(Dr. Rebollar)/ljn ? Document reviewed and electronically signed by: ? Brennan Brower MD ? Report ??Date: 06/23/2010 16:39 ? By the signature above, the attending physician certifies that he/she has ? personally conducted a gross and/or microscopic examination of the described ? specimens and rendered or confirmed the above diagnosis. ? Specimen(s) Received: ? A. ?Duodenal bx ? B. ? Bx gastric antrum ? C. ? Bx gastric body ? D. ? Transverse colon polyp ? Clinical History: ? Microcytic anemia ? Gross Description: ? Received in [employer]'s fixative labelled Pupsarah, Paul and duodenal ?? bx are three mccray-pink tissues ranging from 0.2 x 0.2 x 0.1 cm to 0.3 x 0.2 x ?? 0.2 cm. ??The specimens are submitted entirely as (A). ? Received in [employer]'s fixative labelled Pupino, Paul and bx gastric ? antrum are two mccray-pink tissues measuring 0.1 x 0.1 x 0.1 cm and 0.5 x 0.2 x ?? 0.1 cm. ??The specimens are submitted entirely as (B). ? Received in [employer]'s fixative labelled Paul Guzmán and bx gastric body are two mccray-pink tissues measuring 0.3 x 0.2 x 0.2 cm and 0.6 x 0.2 x 0.1 cm. ?? The specimens are submitted entirely as (C). ? Received in [employer]'s fixative labelled Paul Guzmán and transverse colon polyp is a mccray-pink tissue measuring 0.4 x 0.2 x 0.2 cm. ??The specimen is ? submitted entirely as (D). (Jagdish Elias)/mpl ? End of Report ? [facility] 06/18/2010 06/19/2010 9:3 9 EDT Dilan Alonso MD PATHOLOGY ORDERABLES [facility] [address] [place] [address] documented in this encounter Visit Diagnoses Not on filedocumented in this encounter Care Teams Welding Machine Operator Electron Beam Relationship Specialty Start Date End Date Unknown, Provider, PCP - General 06/19/10 06/21/10 documented as of this encounter
--- OUTSIDE RECORDS SUMMARY | 2024-09-19 10:11 | XMS_ITS | Encounter Summary ---
Author Organization [facility] Address [address] [place] [address] Care Team Providers Care Budget Clerk Name Role Phone Bryant Watkins MD Primary Care Provider [phone] Encounter Details Date Type Department Care Team (Late st Contact Info) Description 12/18/2019 Lab Requisition [facility] Pathology & Laboratory Medicine - [address] [address] Unknown, Provider, Social History Tobacco Use Types Packs/Day Years Used Date Smoking Tobacco: Never Assessed Sex and Gender Information Value Date Recorded Sex Assigned at Not on file Gender Identity Not on file Sexual Orientation Not on file documented as of this encounter Plan of Treatment Not on file documented as of this encounter Procedures Procedure Name Priority Date/Time Associated Diagnosis Comments PSA TOTAL, DIAGNOSTIC Routine 12/17/2019 11:20 EST documented in this encounter Results * PSA TOTAL, DIAGNOSTIC (12/17/2019 11:20 EST) PSA 3.8 0.0 - 4.5 ng/mL 12/19/2019 14:27 EST [facility] Blood VENOUS BLOOD / Unknown 12/17/2019 11:20 EST 12/18/2019 15:45 EST Narrative [facility] - 12/19/2019 14:27 EST NOTE: Serum PSA concentration should not be interpreted as absolute evidence for the presence or absence of malignant disease. Assayed on Siemens ADVIA Centaur XPT using chemiluminescent technology.??Values obtained by using different assay methods cannot be used interchangeably. Provider Unknown CHEMISTRY & BLOOD GA S ORDERABLES [facility] [address] [place] [address] documented in this encounter Visit Diagnoses Not on filedocumented in this encounter Care Teams Budget Clerk Relationship Specialty Start Date End Date Bryant Watkins MD [address] [place] [address] PCP - General 06/22/10 documented as of this encounter
--- OUTSIDE RECORDS SUMMARY | 2024-09-19 10:11 | XMS_ITS | Encounter Summary ---
Author Organization [facility] Address [address] [place] [address] Care Team Providers Care Disability Insurance Hearing Officer Name Role Phone Bryant Watkins MD Primary Care Provider [phone] Encounter Details Date Type Department Care Team (Late st Contact Info) Description 07/16/2020 Lab Requisition [facility] Pathology & Laboratory Medicine - [facility] [address] [place], [place] [address] Outr Resulting Lab, Provider Social History Tobacco [...] Associated Diagnosis Comments PSA TOTAL, DIAGNOSTIC Routine 07/16/2020 11:50 EDT documented in this encounter Results * PSA TOTAL, DIAGNOSTIC (07/16/2020 11:50 EDT) PSA 1.9 0.0 - 4.5 ng/mL 07/16/2020 22:34 EDT [facility] Blood VENOUS BLOOD / Unknown 07/16/2020 11:50 EDT 07/16/2020 21:40 EDT Narrative [facility] - 07/16/2020 22:34 EDT NOTE: Serum PSA concentration should not be interpreted as absolute evidence for the presence or absence of malignant disease. Assayed on Siemens ADVIA [employer] XPT using chemiluminescent technology.??Values obtained by using different assay methods cannot be used interchangeably. Provider Outr Resulting Lab CHEMISTRY & BLOOD GAS ORDERABLES [facility] [address] [place] [address] documented in this encounter Visit Diagnoses Not on filedocumented in this encounter Care Teams Disability Insurance Hearing Officer Relationship Specialty Start Date End Date Bryant Watkins MD [address] [place] [id number] PCP - General 06/22/10 documented as of this encounter
--- OUTSIDE RECORDS SUMMARY | 2024-09-19 10:11 | XMS_ITS | Referral Summary ---
Author Organization [facility] Address [address] [place] [address] Care Team Providers Care Oven Technician Name Role Phone Bryant Watkins MD Primary Care Provider [phone] Social History Tobacco Use Types Packs/Day Years Used Date Smoking Tobacco: Never Assessed Sex and Gender Information Value Date Recorded Sex Assigned at Not on file Gender Identity Not on file Sexual Orientation Not on file Plan of Treatment Not on file Care Teams Oven Technician Relationship Specialty Start Date End Date Bryant Watkins MD [address] [place] [address] PCP - General 06/22/10
--- OUTSIDE RECORDS SUMMARY | 2024-09-19 10:11 | XMS_ITS | Clinical Summary ---
Author Organization [facility] Address [address] [place] [address] Care Team Providers Care Hvac Journeyman Name Role Phone Bryant Watkins MD Primary Care Provider [phone] Social History Tobacco Use Types Packs/Day Years Used Date Smoking Tobacco: Never Assessed Sex and Gender Information Value Date Recorded Sex Assigned at Not on file Gender Identity Not on file Sexual Orientation Not on file Plan of Treatment Health Maintenance Due Date Last Done Comments Hepatitis C Screen 1950 RSV Immunization ( o r 60+ Years) (1 - 1-dose 60+ series) 2012 Fall Risk Screening 2017 COVID-19 Vaccine ( season) 2023 Care Teams Hvac Journeyman Relationship Specialty Start Date End Date Bryant Watkins MD [address] [place] [id number] PCP - General 06/22/10
[2024-09-19 14:52] LABS: Abs Immature Grans 0.02 10^3/uL (0.0-0.06); Absolute Basophil Count 0.11 10^3/uL (0.0-0.2); Absolute Eosinophil Count 0.42 10^3/uL (0.0-0.7); Absolute Lymphocyte Count 2.05 10^3/uL (1.2-3.4); Absolute Monocyte Count 0.62 10^3/uL (0.1-0.8); Absolute Neutrophil Count 6.48 10^3/uL (1.2-6.7); Basophils % 1.1 %; Eosinophils % 4.3 %; HCT 41.7 % (40.0-50.0); HGB 12.7 g/dL (13.5-17.5); Immature Grans % 0.2 %; Lymphocytes % 21.1 %; MCH 19.4 pg (27.0-33.0); MCHC 30.5 % (32.0-36.0); MCV 64 fL (80-95); MPV 9.9 fL (8.0-11.0); Monocytes % 6.4 %; Neutrophils % 66.9 %; Platelet Count 323 10^3/uL (130-400); RBC 6.56 10^6/uL (4.36-5.78); RDW 18.9 % (11.8-14.1); RDW-SD 38.1 fL
[2024-09-19 15:04] LABS: Diff Comment RBC Morph Reviewed; Hypochromasia 1+; Microcytosis 2+
[2024-09-19 15:28] LABS: ALT 24 U/L (16-63); AST 17 U/L (15-37); Albumin 3.8 g/dL (3.4-5.0); Alkaline Phosphatase 91 U/L (46-116); Anion Gap 9.8 mmol/L (3-11); BUN 16 mg/dL (7-18); Bilirubin, Total 1.36 mg/dL (0.2-1.0); CO2 27.2 mmol/L (21.0-32.0); CREATININE 1.6 mg/dL (0.70-1.30); Calcium 9.2 mg/dL (8.5-10.1); Chloride 105 mmol/L (98-107); Estimated GFR 45.78 (mL/min/1.73m2); Glucose 92 mg/dL (74-106); Potassium 4.4 mmol/L (3.5-5.1); Sodium 142 mmol/L (136-145)
== END 2024-09-19 10:06 | disposition home or self-care (01) ==
LOC: NCHCN 10:05
PROVIDERS: PCP Family Medicine; Visit Provider Family Medicine
DX: I10 Essential (primary) hypertension (principal)
CPT/HCPCS: 80053; 85025

== ENCOUNTER 2025-04-14 12:19 | Observation (INO) | payer MEDICARE, SELFPAY ==
[2025-04-14] VITALS (49 sets, daily range): BP systolic 170–245; BP diastolic 61–108; PULSE 59–79; RESP 3–24; TEMP 36.7–36.9; O2SAT 91–98
--- NOTE | 2025-04-14 12:00 | RT.EKG_ITS ---
APPROVED REPORT Exam: Resting ECG Reason for Exam: difficulty breathing Patient Location: E HR:70 bpm ECG Measurements Heart Rate 70 AXIS HI 181 P 47 QRSd 112 QRS 30 QT 406 T 181 QTc 438 Conclusion Sinus rhythm, rate 70 No interval abnormalities Inverted T waves I, aVL, V6, new from 2022 No STEMI, small ST elevation precordial leads unchanged from priors
--- NOTE | 2025-04-14 12:15 | DI.RAD_ITS ---
Exam(s) XR CHEST 2V PA LATERAL EXAM: XR CHEST 2V PA LATERAL CLINICAL HISTORY: Shortness of breath. junky cough, hx copd/chf TECHNIQUE: 2D digital imaging was performed of the chest. Two images were obtained. AP and lateral views were obtained. COMPARISON: CR XR CHEST 2V PA LATERAL from 12/05/2019 CR XR PORTABLE CHEST AP from 09/22/[address] CHEST WO from 02/27/2024 FINDINGS: MEDIASTINUM: Normal. HEART: Normal. PULMONARY VASCULATURE: Normal. LUNGS: Clear. PLEURAL SPACE: No pleural effusion or pneumothorax. There is a stable pleural base calcification ante riorly in the right hemithorax lateral to the heart shadow. This can be seen on the CT scan from 02/11. BONE:Within normal limits for the patient's age. OTHER FINDINGS:Normal. IMPRESSION: No acute pulmonary findings. DATA REPOSITORY: RADIATION DOSE DELIVERED:
[2025-04-14] MEDS: Albuterol/Ipratropium 3 ML UPD VIAL UPD ×2 (12:30→22:21)
[2025-04-14] MEDS: predniSONE 20 MG TAB 60 MG PO (12:31)
[2025-04-14 12:38] LABS: HCT 40.2 % (40.0-50.0); HGB 13.1 g/dL (13.5-17.5); MCH 20.5 pg (27.0-33.0); MCHC 32.6 % (32.0-36.0); MCV 63 fL (80-95); MPV 8.9 fL (8.0-11.0); Platelet Count 197 10^3/uL (130-400); RBC 6.38 10^6/uL (4.36-5.78); RDW 22.1 % (11.8-14.1); RDW-SD 43.2 fL; WBC 16.75 10^3/uL (4.4-10.8)
--- NOTE | 2025-04-14 12:43 | ED.GENADUL_ITS ---
Discharge Plan Disposition Patient Disposition: Admit to [facility] Condition: Stable Discharge Details Chief Complaint: SOB Clinical Impression: Acute exacerbation of CHF (congestive heart failure), HTN (hypertension), Steroid dependence, Elevated troponin Primary Care Provider: Everardo Malloy ED Provider: Sabine Houston Home Meds and New Rx's Prescriptions: No Action nitroglycerin 0.4 mg tablet, sublingual 0.4 mg SL Q5M PRN rosuvastatin 40 mg tablet 40 mg PO DAILY finasteride 5 mg tablet 5 mg PO DAILY Qty: 90 3RF tamsulosin [Flomax] 0.4 mg capsule 0.8 mg PO DAILY Qty: 180 3RF guaifenesin [Mucinex] 600 mg tablet extended release 12hr 600 mg PO BID PRN Trelegy Ellipta 100-62.5-25 mcg blister with device 1 inh inhalation DAILY clonidine HCl 0.1 mg tablet 0.1 mg PO QHS nicotine 21 mg/24 hr patch 24 hour 1 patch transdermal DAILY carvedilol 12.5 mg Tablet 12.5 mg PO BID aspirin [Aspir-81] 81 mg Tablet,Delayed Release (Dr/Ec) 81 mg PO DAILY pantoprazole 40 mg Tablet,Delayed Release (Dr/Ec) 40 mg PO DAILY albuterol sulfate [ProAir HFA] 200 PUFF HFA aerosol inhaler 2 puff Inhalation Q4H PRN PRNQty: 1 0RF torsemide 20 mg Tablet 20 mg PO DAILY amlodipine 10 mg Tablet 10 mg PO DAILY polyethylene glycol 3350 [GlycoLax] 17 gram/dose Powder 17 g PO DAILY PRN ipratropium-albuterol 0.5 mg-3 mg(2.5 mg base)/3 mL solution for nebulization 3 ml IH Q6H Qty: 90 0RF dexamethasone 2 mg tablet 4 mg PO BID Patient Comments: TAKE TWO TABLETS BY MOUTH EVERY MORNING FOR SHORTNESS OF BREATH,pt not taking med appropriately taking atleast twice what is recommended/order HPI General Mode of arrival: EMS . Date/Time Provider Initiated Documentation: 04/14/25 12:22 . Limitations to Documentation: no limitations . Information obtained by: patient, EMS and old records reviewed . HPI Narrative: This is a 74-year-old male patient with a past medical history significant for CHF, hypertension, renal failure, and a history of COPD, brought in by EMS for shortness of breath and cough. He states that he has had shortness of breath and a junky sounding cough for few days, feels like it did the last time he had pneumonia, and wanted to get ahead of it before it got worse. He does not wear oxygen at home, and was not hypoxic for EMS. He is not experiencing any chest pain, has been taking his medications normally, though he states his breathing treatments have not been helping quite as much as typical. He has been taking his torsemide and making urine, does note some ongoing peripheral edema. No reported fevers, eating and drinking typically. Related Data Home Medications ?Medication ?Instructions ?Recorded ?Confirmed albuterol sulfate 90 mcg/actuation 2 puff inhalation Q4H PRN PRN #1 04/29/17 04/14/25 aerosol inhaler (ProAir HFA) inh amlodipine 10 mg tablet 10 mg PO DAILY 02/19/19 04/14/25 ipratropium 0.5 mg-albuterol 3 mg 3 ml inhalation Q6H #90 mL 02/19/19 04/14/25 (2.5 mg base)/3 mL nebulization soln polyethylene glycol 3350 17 17 g PO DAILY PRN 02/19/19 04/14/25 gram/dose oral powder (GlycoLax) torsemide 20 mg tablet 20 mg PO DAILY 02/19/19 04/14/25 aspirin 81 mg tablet,delayed 81 mg PO DAILY 05/10/19 04/14/25 release (Aspir-) carvedilol 12.5 mg tablet 12.5 mg PO BID 05/10/19 04/14/25 pantoprazole 40 mg tablet,delayed 40 mg PO DAILY 05/10/19 04/14/25 release nitroglycerin 0.4 mg sublingual 0.4 mg sublingual Q5M PRN 12/04/19 04/14/25 tablet rosuvastatin 40 mg tablet 40 mg PO DAILY 12/04/19 04/14/25 finasteride 5 mg tablet 5 mg PO DAILY #90 tabs 11/08/21 04/14/25 tamsulosin 0.4 mg capsule (Flomax) 0.8 mg (2 x 0.4 mg) PO DAILY #180 11/08/21 04/14/25 caps clonidine HCl 0.1 mg tablet 0.1 mg PO QHS 02/28/23 04/14/25 fluticasone fur. 100 mcg-umeclid 1 inh inhalation DAILY 02/28/23 04/14/25 62.5 mcg-vilant 25 mcg inhalat.powder (Trelegy Ellipta) guaifenesin 600 mg tablet, 600 mg PO BID PRN 02/28/23 04/14/25 extended release 12 hr (Mucinex) nicotine 21 mg/24 hr daily 1 patch transdermal DAILY 02/28/23 04/14/25 transdermal patch dexamethasone 2 mg tablet 4 mg PO BID 04/14/25 04/14/25 Previous Rx's ?Medication ?Instructions ?Recorded albuterol sulfate 90 mcg/actuation 2 puff inhalation Q4H PRN PRN #1 04/29/17 aerosol inhaler (ProAir HFA) inh ipratropium 0.5 mg-albuterol 3 mg 3 ml inhalation Q6H #90 mL 02/19/19 (2.5 mg base)/3 mL nebulization soln finasteride 5 mg tablet 5 mg PO DAILY #90 tabs 11/08/21 tamsulosin 0.4 mg capsule (Flomax) 0.8 mg (2 x 0.4 mg) PO DAILY #180 11/08/21 caps Allergies Allergy/AdvReac Type Severity Reaction Status Date / Time lisinopril AdvReac Unknown low BP, Unverified 09/23/23 12:58 worsening CKD codeine phosphate (From AdvReac constipatio Unverified 09/23/23 12:58 Tylenol-Codeine) n General Stated Complaint: SOB DAISY: 3 Exam Narrative Exam Narrative: Gen: Awake and alert, in no apparent distress HEENT: Non-icteric sclera Neck: Supple Lungs: No apparent respiratory distress, normal respiratory effort. Patient does have bilaterally crackly lung sounds with expiratory wheezing, no significant tachypnea CV: Appears well perfused, heart with regular rate and rhythm, strong distal pulses Abdomen: Non-distended, soft, nontender MSK: Moves 4 extremities without apparent limitation in ROM. 1+ peripheral edema to the midshin bilaterally, no unilateral calf tenderness Skin: Visualized skin without rashes, cyanosis. Neuro: No obvious focal deficits or facial asymmetry. Speaks in full, clear sentences. Psych: Appropriate for situation. Course Vital Signs Vital signs: Vital Signs Pulse 77 04/14/25 12:18 Respiratory Rate 22 06/02/25 12:18 Blood Pressure 197/61 H 04/14/25 12:18 Pulse Oximetry 93 04/14/25 12:18 Pulse 72 04/14/25 12:36 Respiratory Rate 22 04/14/25 12:36 Respiratory Effort Short of Breath 04/14/25 12:36 Respiratory Depth Normal 04/14/25 12:36 Respiratory Pattern Normal 04/14/25 12:36 Blood Pressure 197/61 H 04/14/25 12:36 Pulse Oximetry 94 04/14/25 12:36 Oxygen Delivery Method Room Air 04/14/25 12:36 Oxygen Flow Rate 0 04/14/25 12:36 Medical Decision Making This is a 74-year-old male patient presenting for evaluation of shortness of breath and cough. Differential includes but is not limited to viral URI, pneumonia, bronchitis, COPD exacerbation, CHF exacerbation with pulmonary edema, pleural effusion, etc. Considered pneumothorax, patient's lack of chest pain makes ACS less likely, certainly considered anemia, metabolic and electrolyte derangement, kidney injury. The lack of tachycardia, hypoxia, and the lung findings were concerning for CHF or COPD decreased my suspicion for pulmonary embolism. Given the patient's wheezing and history of reactive airway disease it is reasonable to trial a duo nebulizer treatment and a dose of prednisone. We will obtain viral swabs, laboratory studies to include CBC, CD, magnesium, troponin, BNP, and we will obtain a chest x-ray. - I reviewed the patient's EKG, which shows a sinus rhythm with out evidence of acute ischemia, does have some T wave inversions in the lateral leads that were not present on his most recent EKG, which was admittedly from 2022. Reviewed laboratory studies, which show a leukocytosis to 16, a very mild anemia to 13.1, no thrombocytopenia. Chemistry panel reveals no electrolyte derangements, BUN is quite elevated at 50, creatinine 1.2, bilirubin slightly up at 1.4 but no transaminitis. Initial troponin is elevated to 87, BNP is also elevated to 9300. Concerning for heart failure exacerbation, and I provided the patient with a dose of 40 mg of Lasix IV. He remains without new oxygen requirement or chest pain. 1 hour delta troponin without interval change, 88, stable and likely due to the fluid overload. Chest x-ray reveals no focal consolidations, less concerning for pneumonia. The patient's hospice nurse arrived at our facility, the patient is followed by [facility] ([phone]) and they report that they have had difficulty with medication compliance, stating that the patient has been taking double or even triple of his dexamethasone, which is written for twice daily dosing. The patient is desiring of revoking his hospice status, and I do feel that if he revoked his hospice status he does meet criteria for admission for his heart failure exacerbation requiring diuresis. Knowing now that the patient has been on quite an elevated dose of steroids, I suspect he will also require tapering, but this does explain his leukocytosis adequately in the absence of other evidence of infection. I reached out to the hospitalist who is graciously accepted this patient for admission to their service, he remained hemodynamically appropriate while under my care and was transferred from our department without incident. Sabine Houston MD Quality:[facility] Health Related Social Needs: No Data to Display PFSH All Active Problems (Updated 04/14/25 @ 15:13 by Sabine Houston MD) Elevated troponin (Acute) Steroid dependence (Acute) Acute exacerbation of CHF (congestive heart failure) (Acute) Lung nodule (Acute) BPH w urinary obs/LUTS (Acute) Microcytic anemia (Acute) UTI (urinary tract infection) (Acute) Presence of stent in coronary artery in patient with coronary artery disease (Acute) Diastolic CHF (Chronic) HTN (hypertension) (Chronic) Pneumonia (Acute) Chronic renal failure (Chronic) Medical History (Updated 04/14/25 @ 15:13 by Sabine Houston MD) Non-STEMI (non-ST elevated myocardial infarction) History of tobacco use Hypospadias Chronic kidney disease, stage 3 Peripheral arterial occlusive disease Constipation Depression Lower urinary tract symptoms (LUTS) Exertional dyspnea Pulmonary hypertension due to left heart disease Coronary artery disease Diastolic heart failure Lower back pain Dysuria Anemia, iron deficiency Heartburn Screening for colon cancer Nocturia Urinary frequency Prediabetes Hypoxemia Multiple pulmonary nodules Lumbar back pain with radiculopathy affecting lower extremity Former smoker Congestion of nasal sinus CKD (chronic kidney disease) CHF (congestive heart failure) Alcoholism in recovery Hypospadias in male COPD (chronic obstructive pulmonary disease) Hyperlipidemia Essential hypertension Surgical History History of phacoemulsification of cataract of both eyes with intraocular lens implantation History of tonsillectomy Family History Father Throat cancer Heart disease Myocardial infarction Brother Heart disease Status post coronary stents Social History Smoking/Tobacco Use Status: Former Tobacco Use Quit Date: 01/11/17 Smoking risk assessment performed?: Yes Alcohol Intake: former Year quit: 2016 Details: Former alcoholic up to 2 cases of gin per month Drug use: Never Substance use type: does not use Housing: house Number of Children: 0 Pets and animals: Yes Pets and animals: dog(s) What is your relationship status?: Panel score (0-1 are the most socially isolated patients): 1 Do you feel safe at home: Yes Do you feel safe in your relationship?: Yes
[2025-04-14 13:01] LABS: ALT 38 U/L (16-63); AST 13 U/L (15-37); Albumin 3.1 g/dL (3.4-5.0); Alkaline Phosphatase 60 U/L (46-116); Anion Gap 8.6 mmol/L (3-11); BUN 50 mg/dL (7-18); Bilirubin, Total 1.4 mg/dL (0.2-1.0); CO2 31.4 mmol/L (21.0-32.0); CREATININE 1.2 mg/dL (0.70-1.30); Calcium 8.3 mg/dL (8.5-10.1); Chloride 103 mmol/L (98-107); Estimated GFR 64.25 (mL/min/1.73m2); Glucose 95 mg/dL (74-106); Magnesium 1.8 mg/dL (1.8-2.4); NT-proBNP 9307 pg/mL (<300); Potassium 3.9 mmol/L (3.5-5.1); Sodium 143 mmol/L (136-145)
[2025-04-14 13:02] LABS: Absolute Lymphocyte Count 1.34 10^3/uL (1.2-3.4); Absolute Monocyte Count 1.17 10^3/uL (0.1-0.8); Absolute Neutrophil Count 13.74 10^3/uL (1.2-6.7); Anisocytosis 2+; Bands % 2 %; Diff Comment Manual Differential; Metamyelocytes % 2; Myelocytes % 1
[2025-04-14 13:03] LABS: Basophilic Stippling Present; Microcytosis 1+; Polychromasia Present
[2025-04-14 13:11] LABS: Troponin I 86 ng/L (<or=76)
[2025-04-14] MEDS: Furosemide 40 MG/4 ML VIAL IVP (13:21)
--- NOTE | 2025-04-14 13:43 | NUR.NOTE ---
[address] [facility] [phone]; called stating pt is on hospice. His nurse Cat will be here in 1 hr. Nursing Note:
[2025-04-14 14:21] LABS: Troponin I 88 ng/L (<or=76)
[2025-04-14 16:01] LABS: Troponin I 93 ng/L (<or=76)
--- NOTE | 2025-04-14 16:17 | W.PC.ACHO ---
Registration Status: Primary Language: Preferred Language: ED Information & Data Chief Complaint SOB 04/14/25 13:13 Chief Complaint SOB 04/14/25 12:43 Triage Note increased SOB PT feels like 04/14/25 12:18 when he had PNA in the past HX COPD Medical / Surgical History (Last Updated 09/22/23 @ 18:31 by Jamari Hall MD) Non-STEMI (non-ST elevated myocardial infarction) History of tobacco use Hypospadias Chronic kidney disease, stage 3 Peripheral arterial occlusive disease Constipation Depression Lower urinary tract symptoms (LUTS) Exertional dyspnea Pulmonary hypertension due to left heart disease Coronary artery disease Diastolic heart failure Lower back pain Dysuria Anemia, iron deficiency Heartburn Screening for colon cancer Nocturia Urinary frequency Prediabetes Hypoxemia Multiple pulmonary nodules Lumbar back pain with radiculopathy affecting lower extremity Former smoker Congestion of nasal sinus CKD (chronic kidney disease) CHF (congestive heart failure) Alcoholism in recovery Hypospadias in male COPD (chronic obstructive pulmonary disease) Hyperlipidemia Essential hypertension (Last Reviewed 07/16/20 @ 12:28 by Cassandra Tejeda DNP) History of phacoemulsification of cataract of both eyes with intraocular lens implantation History of tonsillectomy Most Recent Vital Signs Pulse 68 04/14/25 15:50 Pulse 71 04/14/25 15:50 Respiratory Rate 21 04/14/25 15:50 Respiratory Effort Short of Breath 04/14/25 12:36 Respiratory Depth Normal 04/14/25 12:36 Respiratory Pattern Normal 04/14/25 12:36 Blood Pressure 228/108 H 04/14/25 15:46 Blood Pressure Mean 153 04/14/25 15:46 Pulse Oximetry 95 04/14/25 15:50 Oxygen Delivery Method Room Air 04/14/25 12:36 Oxygen Flow Rate 0 04/14/25 12:36 Allergies lisinopril Adverse Reaction (Unknown, Unverified 09/23/23 12:58) low BP, worsening CKD codeine phosphate (From Tylenol-Codeine) Adverse Reaction (Unverified 09/23/23 12:58) constipation IV IV Catheter Type [Left Saline Lock Antecubital] IV Catheter Gauge [Left 18 Antecubital] Diet Orders Category Date Time Status Heart Healthy Eating [DIET] Nutrition 04/14/25 Dinner Active Diagnostics 04/14/25 04/14/25 04/14/25 Range/Units 15:30 13:20 12:32 WBC 16.75 H (4.4-10.8) 10^3/uL RBC 6.38 H (4.36-5.78) 10^6/uL Hgb 13.1 L (13.5-17.5) g/dL Hct 40.2 (40.0-50.0) % MCV 63 L (80-95) fL MCH 20.5 L (27.0-33.0) pg MCHC 32.6 (32.0-36.0) % RDW 22.1 H (11.8-14.1) % Plt Count 197 (130-400) 10^3/uL MPV 8.9 (8.0-11.0) fL Immature Gran % See Differential Neutrophils % 80.0 % Band Neutrophils % 2 % Lymphocytes % 8.0 % Monocytes % 7.0 % Eosinophils % 0.0 % Basophils % 0.0 % Metamyelocytes % 2 Myelocytes % 1 Nucleated RBC % 3.0 H (0.0-0.3) % Absolute Neutrophils 13.74 H (1.2-6.7) 10^3/uL Absolute Lymphocytes 1.34 (1.2-3.4) 10^3/uL Absolute Monocytes 1.17 H (0.1-0.8) 10^3/uL Absolute Eosinophils 0.00 (0.0-0.7) 10^3/uL Absolute Basophils 0.00 (0.0-0.2) 10^3/uL RBC Morphology See Below Polychromasia Present Basophilic Stippling Present Anisocytosis 2+ Microcytosis 1+ Sodium 143 (136-145) mmol/L Potassium 3.9 (3.5-5.1) mmol/L Chloride 103 (98-107) mmol/L Carbon Dioxide 31.4 (21.0-32.0) mmol/L Anion Gap 8.6 (3-11) mmol/L BUN 50 H (7-18) mg/dL Creatinine 1.2 (0.70-1.30) mg/dL Est GFR (CKD-EPI 2020) 64.25 (mL/min/1.73m2) Glucose 95 (74-106) mg/dL Calcium 8.3 L (8.5-10.1) mg/dL Magnesium 1.8 (1.8-2.4) mg/dL Total Bilirubin 1.4 H (0.2-1.0) mg/dL AST 13 L (15-37) U/L ALT 38 (16-63) U/L Alkaline Phosphatase 60 (46-116) U/L Troponin I 93 H* 88 H* 86 H* (<or=76) ng/L NT-Pro-B Natriuret Pep 9307 H (<300) pg/mL Total Protein 6.0 L (6.4-8.2) g/dL Albumin 3.1 L (3.4-5.0) g/dL Intake and Output - 24 Hour Total 04/14/25 12:06 thru 04/14/25 14:26 Output Total 300 Balance -300 Weight 94.3 kg Output: Urine 300 Falls Risk Assessment History of Falls No History 04/14/25 12:36 Contributing Factors No Factors 04/14/25 12:36 Ambulatory Aids Independent 04/14/25 12:36 Tubes/Lines None 04/14/25 12:36 Gait Evaluation No gait disturbance 04/14/25 12:36 Cognition No cognitive impairment 04/14/25 12:36 Fall Total Score 0 04/14/25 12:36 Level of Risk Standard/Low Risk 04/14/25 12:36 Notes 04/14/25 13:43 Nursing Notes by Katiuska Allen [address] [facility] [phone]; called stating pt is on hospice. His nurse Cat will be here in 1 hr. Nursing Note: Initialized on 04/14/25 13:43 - END OF NOTE v v v v v v v v v Sending and/or Receiving Nurses: Please use comment section below to note any information pertinent to the patient hand-off not included above. Information / Comments: paged at [phone], called for report at 1552. 18 G L AC. C/O of SOB and cough, 40 mg IV lasix and 1 L fluid given in ED. Pt was a [facility] hospice pt and per providers note is revoking hospice status. Report received from: Abi Easley ED RN
[2025-04-14] MEDS: hydrALAZINE 20 MG/ML VIAL 10 MG IVP (16:21)
[2025-04-14] MEDS: Albuterol/Ipratropium 3 ML UPD VIAL IH (17:41)
--- NOTE | 2025-04-14 17:43 | HPE_ITS ---
Date of service: 04/14/25 Time of Service: 17:43 Assessment and Plan Assessment and plan (1) Acute exacerbation of CHF (congestive heart failure): Status: Acute Assessment and plan: Pt was brought to the ED by EMS for worsening shortness of breath and a productive cough over the past few days. The patient describes his symptoms as similar to those he experienced during a previous pneumonia episode, though he does not report any fever, chest pain, or hypoxia. Likely due to fluid overload, as evidenced by elevated BNP, peripheral edema, crackles on lung exam, and elevated troponin. Furosemide I&O Telemetry (2) Elevated troponin: Status: Acute Assessment and plan: Likely secondary to CHF exacerbation rather than acute myocardial injury. (3) Steroid dependence: Status: Acute Assessment and plan: The patient has been taking bzjxzh-miog-dbsidedtow doses of dexamethasone, likely contributing to fluid retention and elevated WBC count. Taper steroids Tapering Plan for Dexamethasone 8 mg BID (16 mg/day): * Day 1-3: * 8 mg AM / 8 mg PM (same dose to maintain initial stability) * Day 4-7: * 8 mg AM / 6 mg PM (reduce by 2 mg PM dose) * Day 8-11: * 6 mg AM / 6 mg PM (reduce the PM dose to 6 mg) * Day 12-15: * 6 mg AM / 4 mg PM (reduce by 2 mg PM dose) * Day 16-19: * 4 mg AM / 4 mg PM (reduce by 2 mg PM dose) * Day 20-23: * 4 mg AM / 2 mg PM (reduce by 2 mg PM dose) * Day 24-27: * 2 mg AM / 2 mg PM (reduce the PM dose to 2 mg) * Day 28: * 2 mg AM / 1 mg PM (reduce the PM dose to 1 mg) * Day 29-30: * 1 mg AM / 1 mg PM (final taper before discontinuing) * Day 31: * Discontinue completely or continue tapering if needed. (4) Chronic renal failure: Status: Chronic Assessment and plan: (Stage 3): Elevated BUN and creatinine, will need ongoing monitoring. (5) HTN (hypertension): Status: Chronic Assessment and plan: Well controlled, but still contributing to CHF exacerbation. History of Present Illness History of Present Illness Chief Complaint: Shortness of breath and cough for several days. Narrative: This is a 74-year-old male with a significant past medical history including congestive heart failure, hypertension, chronic kidney disease , COPD, and coronary artery disease . He was brought to the ED by EMS for worsening shortness of breath and a productive cough over the past few days. The patient describes his symptoms as similar to those he experienced during a previous pneumonia episode, though he does not report any fever, chest pain, or hypoxia. He has been compliant with his medications, including torsemide for fluid management, but his breathing treatments (including albuterol and ipratropium inhalers) have not been as effective as usual. The patient also notes persistent peripheral edema despite taking his diuretics. He has been urinating normally but reports some swelling in his legs. He denies any chest pain, recent infections, or significant changes in appetite or activity level. No new respiratory distress at the time of EMS arrival, and he was not hypoxic. The patient is currently not on oxygen at home, and EMS did not require supplemental oxygen during transport. The patient has been on [facility], however revoked their services today. In the ED troponin 86; 88; 93, proBNP 9307, Sodium 143, potassium 3.9, Creatinine 1.2, better than baseline, magnesium 1.8, WBC 16.75, Hgb 13.1 Imaging: CXR - no acute pulmonary findings. In the ED patient received IV Lasix (40 mg) for diuresis., Patient is admitedt to the medical surgical floor for further management of CHF exacerbation, likely requiring diuresis. Steroid taper: Gradual tapering of dexamethasone to avoid withdrawal symptoms. Cardiology consultation for management of elevated troponin and ongoing heart failure. Past Medical History: * Congestive Heart Failure * Hypertension * Chronic Kidney Disease, Stage 3 * COPD * Coronary Artery Disease * Peripheral Arterial Occlusive Disease * Diabetes Mellitus * Hyperlipidemia * Anemia (Iron deficiency) * Depression * Exertional Dyspnea * Pulmonary Hypertension due to left heart disease * Lower Urinary Tract Symptoms/BPH * Chronic Back Pain/Radiculopathy * History of Alcoholism (in recovery, quit in 2017) * Previous non-STEMI * History of Tonsillectomy * History of Phacoemulsification of Cataracts Surgical History: * Phacoemulsification of cataracts with intraocular lens implantation (both eyes) * Tonsillectomy Medications: * Albuterol sulfate (ProAir HFA) 90 mcg/actuation: 2 puffs inhalation every 4 hours PRN * Amlodipine 10 mg tablet: 10 mg daily * Ipratropium-albuterol (Duoneb) 3 mL inhalation every 6 hours * Torsemide 20 mg tablet: 20 mg daily * Aspirin (Aspir-81) 81 mg tablet, delayed release: 81 mg daily * Carvedilol 12.5 mg tablet: 12.5 mg twice daily * Pantoprazole 40 mg tablet, delayed release: 40 mg daily * Nitroglycerin 0.4 mg sublingual: 0.4 mg every 5 minutes as needed * Rosuvastatin 40 mg tablet: 40 mg daily * Finasteride 5 mg tablet: 5 mg daily * Tamsulosin (Flomax) 0.8 mg (2 x 0.4 mg) PO daily * Clonidine 0.1 mg tablet: 0.1 mg at bedtime * Nicotine patch 21 mg/24 hr: 1 patch daily * Dexamethasone 2 mg tablet: 4 mg twice daily (patient has been taking higher doses than prescribed) * Polyethylene glycol 3350 (GlycoLax): 17 g daily as needed Allergies: * Lisinopril: Adverse reaction ? Low blood pressure, worsening CKD * Codeine phosphate (Tylenol-Codeine): Adverse reaction ? Constipation Family History: * Father: (throat cancer, heart disease, myocardial infarction) * Brother: Heart disease, status post coronary stent placement Social History: * Tobacco Use: Former smoker, quit 01/11/17 * Alcohol Use: Former alcoholic, quit 2016 (up to 2 cases of gin/month) * Substance Use: Denies illicit drug use * Housing: Lives in a house * Marital Status: * Children: No children * Pets: Dog(s) * Safety: Feels safe at home and in his relationship Review of Systems Narrative: General: No fever, chills, weight loss, or night sweats. Mild fatigue. Cardiovascular: No chest pain, no palpitations, occasional dizziness with standing Respiratory: Shortness of breath, productive cough with thick sputum, no wheezing or stridor at rest, no hemoptysis. Gastrointestinal: No nausea, vomiting, diarrhea, or constipation (beyond regular use of GlycoLax) Genitourinary: No dysuria, nocturia, or hematuria. Reports lower urinary tract symptoms . Musculoskeletal: No joint pain or recent injuries. Chronic back pain with radiculopathy affecting lower extremity. Neurological: No headaches, dizziness, or loss of consciousness. No focal deficits, clear speech. Psychiatric: Mild depression, managed without current medication. Endocrine: No changes in appetite or thirst. Hematologic: No abnormal bruising or bleeding. Integumentary: No rashes, sores, or itching. All systems reviewed & are unremarkable except as noted in HPI and below PFSH All Active Problems (Updated 04/14/25 @ 19:00 by Tammi Alejandro NP) Elevated troponin (Acute) Steroid dependence (Acute) Acute exacerbation of CHF (congestive heart failure) (Acute) Lung nodule (Acute) BPH w urinary obs/LUTS (Acute) Microcytic anemia (Acute) UTI (urinary tract infection) (Acute) Presence of stent in coronary artery in patient with coronary artery disease (Acute) Diastolic CHF (Chronic) HTN (hypertension) (Chronic) Pneumonia (Acute) Chronic renal failure (Chronic) Medical History (Updated 04/14/25 @ 19:00 by Tammi Alejandro NP) Non-STEMI (non-ST elevated myocardial infarction) History of tobacco use Hypospadias Chronic kidney disease, stage 3 Peripheral arterial occlusive disease Constipation Depression Lower urinary tract symptoms (LUTS) Exertional dyspnea Pulmonary hypertension due to left heart disease Coronary artery disease Diastolic heart failure Lower back pain Dysuria Anemia, iron deficiency Heartburn Screening for colon cancer Nocturia Urinary frequency Prediabetes Hypoxemia Multiple pulmonary nodules Lumbar back pain with radiculopathy affecting lower extremity Former smoker Congestion of nasal sinus CKD (chronic kidney disease) CHF (congestive heart failure) Alcoholism in recovery Hypospadias in male COPD (chronic obstructive pulmonary disease) Hyperlipidemia Essential hypertension Surgical History History of phacoemulsification of cataract of both eyes with intraocular lens implantation History of tonsillectomy Family History Father Throat cancer Heart disease Myocardial infarction Brother Heart disease Status post coronary stents Social History Smoking/Tobacco Use Status: Former Tobacco Use Quit Date: 01/11/17 Smoking risk assessment performed?: Yes Alcohol Intake: former Year quit: 2016 Details: Former alcoholic up to 2 cases of gin per month Drug use: Never Substance use type: does not use Housing: house Number of Children: 0 Pets and animals: Yes Pets and animals: dog(s) What is your relationship status?: Panel score (0-1 are the most socially isolated patients): 1 Do you feel safe at home: Yes Do you feel safe in your relationship?: Yes Meds Allergies and Home Medications Allergies Allergy/AdvReac Type Severity Reaction Status Date / Time lisinopril AdvReac Unknown low BP, Unverified 09/23/23 12:58 worsening CKD codeine phosphate (From AdvReac constipatio Unverified 09/23/23 12:58 Tylenol-Codeine) n Home Medications ?Medication ?Instructions ?Recorded ?Confirmed ?Type albuterol sulfate 90 mcg/actuation 2 puff inhalation Q4H PRN PRN #1 04/29/17 04/14/25 Rx aerosol inhaler (ProAir HFA) inh amlodipine 10 mg tablet 10 mg PO DAILY 02/19/19 04/14/25 History ipratropium 0.5 mg-albuterol 3 mg 3 ml inhalation Q6H #90 mL 02/19/19 04/14/25 Rx (2.5 mg base)/3 mL nebulization soln polyethylene glycol 3350 17 17 g PO DAILY PRN 02/19/19 04/14/25 History gram/dose oral powder (GlycoLax) torsemide 20 mg tablet 20 mg PO DAILY 02/19/19 04/14/25 History aspirin 81 mg tablet,delayed 81 mg PO DAILY 05/10/19 04/14/25 History release (Aspir-) carvedilol 12.5 mg tablet 12.5 mg PO BID 05/10/19 04/14/25 History pantoprazole 40 mg tablet,delayed 40 mg PO DAILY 05/10/19 04/14/25 History release nitroglycerin 0.4 mg sublingual 0.4 mg sublingual Q5M PRN 12/04/19 04/14/25 History tablet rosuvastatin 40 mg tablet 40 mg PO DAILY 12/04/19 04/14/25 History finasteride 5 mg tablet 5 mg PO DAILY #90 tabs 11/08/21 04/14/25 Rx tamsulosin 0.4 mg capsule (Flomax) 0.8 mg (2 x 0.4 mg) PO DAILY #180 11/08/21 04/14/25 Rx caps clonidine HCl 0.1 mg tablet 0.1 mg PO QHS 02/28/23 04/14/25 History fluticasone fur. 100 mcg-umeclid 1 inh inhalation DAILY 02/28/23 04/14/25 History 62.5 mcg-vilant 25 mcg inhalat.powder (Trelegy Ellipta) guaifenesin 600 mg tablet, 600 mg PO BID PRN 02/28/23 04/14/25 History extended release 12 hr (Mucinex) nicotine 21 mg/24 hr daily 1 patch transdermal DAILY 02/28/23 04/14/25 History transdermal patch dexamethasone 2 mg tablet 4 mg PO BID 04/14/25 04/14/25 History Exam Narrative Exam Narrative: * General: Alert, awake, and oriented. In no acute distress. * HEENT: No signs of trauma, non-icteric sclera. * Neck: Supple, no jugular venous distention * Lungs: Bilateral crackles at the lung bases, expiratory wheezing, no significant tachypnea or retractions. * Cardiovascular: Regular rate and rhythm, no murmurs, no jugular venous distention, strong distal pulses. * Abdomen: Soft, non-distended, non-tender, no palpable masses. * Musculoskeletal: Full range of motion in all extremities, no joint deformities. 1+ bilateral peripheral edema to mid-shins. * Skin: No rashes or cyanosis. * Neurological: Alert and oriented x3. No focal deficits, normal speech, no facial asymmetry. * Psychiatric: Cooperative, appropriate mood and affect. Results Labs 04/14/25 12:32 04/14/25 12:32 Labs: Laboratory Results - last 24 hr 04/14/25 04/14/25 04/14/25 12:32 13:20 15:30 WBC 16.75 H RBC 6.38 H Hgb 13.1 L Hct 40.2 MCV 63 L MCH 20.5 L MCHC 32.6 RDW 22.1 H Plt Count 197 MPV 8.9 Immature Gran % See Differential Neutrophils % 80.0 Band Neutrophils % 2 Lymphocytes % 8.0 Monocytes % 7.0 Eosinophils % 0.0 Basophils % 0.0 Metamyelocytes % 2 Myelocytes % 1 Nucleated RBC % 3.0 H Absolute Neutrophils 13.74 H Absolute Lymphocytes 1.34 Absolute Monocytes 1.17 H Absolute Eosinophils 0.00 Absolute Basophils 0.00 RBC Morphology See Below Polychromasia Present Basophilic Stippling Present Anisocytosis 2+ Microcytosis 1+ Sodium 143 Potassium 3.9 Chloride 103 Carbon Dioxide 31.4 Anion Gap 8.6 BUN 50 H Creatinine 1.2 Est GFR (CKD-EPI 2020) 64.25 Glucose 95 Calcium 8.3 L Magnesium 1.8 Total Bilirubin 1.4 H AST 13 L ALT 38 Alkaline Phosphatase 60 Troponin I 86 H* 88 H* 93 H* NT-Pro-B Natriuret Pep 9307 H Total Protein 6.0 L Albumin 3.1 L Last Vital Signs Temp 36.7 C 04/14/25 16:49 Pulse 79 04/14/25 16:49 Resp 20 04/14/25 16:49 BP 188/73 H 04/14/25 16:49 Pulse Ox 94 04/14/25 16:49 Time Spent Time spent with Patient: 55-74 minutes Time was spent: preparing to see the patient(eg.review tests), obtaining and/or reviewing separately otained hiistory, ordering medications,tests, procedures, referring, communicating with other health personal care home administrator, indepentently interpreting results, counseling the patient and care coordination
[2025-04-14] MEDS: Normal Saline Flush 10 ML SYR IVP (19:42)
[2025-04-14] MEDS: Furosemide 100 MG/10 ML VIAL 60 MG IVP (19:42)
[2025-04-14] MEDS: guaiFENesin 600 MG TABCR 1200 MG PO (19:43)
[2025-04-14] MEDS: Carvedilol 25 MG TAB PO (19:43)
[2025-04-14] MEDS: cloNIDine 0.1 MG TAB PO (19:43)
[2025-04-14] MEDS: Dexamethasone 4 MG TAB 8 MG PO (19:44)
[2025-04-14] MEDS: Budesonide/Formoterol 80/4.5 6.9 GM 60 PUFF INH IH (19:54)
[2025-04-15 03:17] VITALS: BP 171/67; PULSE 66; RESP 18; TEMP 36.6; O2SAT 93
[2025-04-15 03:34] VITALS: PULSE 68; RESP 16; RESP 3; RESP 5; O2SAT 93
[2025-04-15] MEDS: Albuterol/Ipratropium 3 ML UPD VIAL UPD ×2 (03:34→08:49)
[2025-04-15 07:15] VITALS: BP 146/53; PULSE 67; RESP 18; TEMP 36.4; O2SAT 95
[2025-04-15] MEDS: Furosemide 40 MG/4 ML VIAL IVP ×2 (07:51→14:34)
[2025-04-15] MEDS: Pantoprazole 40 MG TABCR PO (07:51)
[2025-04-15] MEDS: Finasteride 5 MG TAB PO (08:44)
[2025-04-15] MEDS: Sertraline 100 MG TAB PO (08:44)
[2025-04-15] MEDS: Carvedilol 25 MG TAB PO (08:44)
[2025-04-15] MEDS: Aspirin E.C. 81 MG TABEC PO (08:44)
[2025-04-15] MEDS: cloNIDine 0.1 MG TAB PO (08:45)
[2025-04-15] MEDS: Tamsulosin 0.4 MG CAPCR 0.8 MG PO (08:45)
[2025-04-15] MEDS: guaiFENesin 600 MG TABCR 1200 MG PO (08:45)
[2025-04-15] MEDS: amLODIPine 10 MG TAB PO (08:46)
[2025-04-15] MEDS: Rosuvastatin 20 MG TAB 40 MG PO (08:46)
[2025-04-15] MEDS: Dexamethasone 4 MG TAB 8 MG PO (08:47)
[2025-04-15] MEDS: Budesonide/Formoterol 80/4.5 6.9 GM 60 PUFF INH IH (08:48)
[2025-04-15 08:49] VITALS: PULSE 56; RESP 9; O2SAT 96
[2025-04-15] MEDS: Tiotropium Bromide-Respimat 10 PUFF INH 2 PUFF IH (08:49)
[2025-04-15 09:06] LABS: HCT 40.8 % (40.0-50.0); HGB 13.3 g/dL (13.5-17.5); MCH 20.3 pg (27.0-33.0); MCHC 32.6 % (32.0-36.0); MCV 62 fL (80-95); MPV 8.8 fL (8.0-11.0); Platelet Count 181 10^3/uL (130-400); RBC 6.55 10^6/uL (4.36-5.78); RDW 22.3 % (11.8-14.1); RDW-SD 41.9 fL; WBC 16.78 10^3/uL (4.4-10.8)
[2025-04-15 09:22] LABS: Absolute Lymphocyte Count 0.67 10^3/uL (1.2-3.4); Absolute Monocyte Count 0.34 10^3/uL (0.1-0.8); Absolute Neutrophil Count 15.44 10^3/uL (1.2-6.7); Atypical Lymphocytes % 1 %; Bands % 2 %; Diff Comment Manual Differential; Metamyelocytes % 1; Myelocytes % 1
[2025-04-15 09:23] LABS: Anisocytosis 2+; Microcytosis 2+
[2025-04-15 09:32] LABS: ALT 33 U/L (16-63); AST 12 U/L (15-37); Albumin 3.1 g/dL (3.4-5.0); Alkaline Phosphatase 59 U/L (46-116); BUN 51 mg/dL (7-18); Bilirubin, Total 1.6 mg/dL (0.2-1.0); CREATININE 1.2 mg/dL (0.70-1.30); Calcium 8.8 mg/dL (8.5-10.1); Estimated GFR 64.25 (mL/min/1.73m2); Glucose 163 mg/dL (74-106); Total Protein 6.2 g/dL (6.4-8.2)
[2025-04-15 09:41] LABS: Chloride 100 mmol/L (98-107); Sodium 140 mmol/L (136-145)
--- NOTE | 2025-04-15 10:05 | PDOC.CMIN ---
Date of service: 04/15/25 Time of Service: 10:05 Care Management Initial Assmt Initial Assessment Reason for Hospitalization: CHF Functional Status/Living Situation Patient Presentation: Elroy was sitting up in a chair when CM met with him. He was admitted yesterday with CHF and COPD. Prior to admission, Elroy had been on hospice, however he revoked hospice to be admitted. He did share that he does not plan to go back on hospice after discharge. Elroy lives alone in a single family home in [place]. 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 Elroy is and has no children. His Luma at [facility] last fall just before after a long illness. He has no close relatives in [place] but does have neighbors who are supportive. Elroy also has a brother in [place] who he identified as his closest contact. Elroy uses supplemental nasal oxygen at 2L/min at home as needed. He receives Meals on Wheels but no other community services. He managers with his ADLs but does not drive. Town of Residence: [place] Resides with: Spouse ( Luma) Significant Other/Family: Out of area (brother in [place]) Employment Status: Retired Instrumental Activities of Daily Living (ADLs): Independent Medications Medication Management: No Issues/Barriers identified Advance Directives Advance Directives: Do you have an Advance Directive: N 09/26/16 10:14 AD On File at [facility]: N 06/06/16 17:47 Date Asked 04/14/25 04/14/25 13:43 AD Date Reviewed COLST On File at [facility] COLST Date Scanned Code Status Resuscitation Status Full Code Portal Pt does not currently have a portal and education provided: Yes Insurance Coverage/Financial Issues Insurance: [facility] Medicare Replacement Care Team Visit Care Team Role Provider Type Tammi Alejandro NP MD [facility] STAFF PHYSICIAN Everardo Malloy MD Primary Care Provider NON-[facility] STAFF PHYSICIAN Sabine Houston MD Emergency Provider [facility] STAFF PHYSICIAN Everardo Anne MD Admit Provider [facility] STAFF PHYSICIAN Attending Provider Discharge Potential Discharge Needs: PCP F/U Appt Anticipated Barriers to Discharge: None Identified Patient/Family Education Needs: Review discharge instructions, discuss Ask Me Three Transportation: Facility Transport Plan: Anticipate Paul will be discharged home with new home health services for nursing and PT. He will follow up with his PCP and plan of care and transport via [facility] vs a friend. CM will follow and continue to support discharge planning. Social Determinants of Health Screening Social Determinants of health last assessed in clinic: 04/15/25 Will the Patient Participate in the Screening?: Yes Do you worry about having a steady place to live?: no Problems where you live: no known problems In the past 12 months, have you had to go without electric, gas, oil or water in your home?: no 1. Within the past 12 months, we worried whether our food would run out before we got money to buy more.: Never true 2. Within the past 12 months, the food we bought just didn't last and we didn't have money to get more.: Never true Has lack of transportation kept you from medical appointments or from doing things needed for daily living?: no Has anyone in your life made you feel unsafe or unsupported?: no How hard is it for you to pay for the very basics like food, housing, medical care, and heating? Would you say it is:: Somewhat hard Do you want help finding or keeping work or a job?: I do not need or want help If for any reason you need help with day-to-day activities such as bathing, preparing meals, shopping, managing finances, etc., do you get the help you need?: I could use a little more help How often do you feel lonely or isolated from those around you?: Never Do you speak a language other than Monegasque at home?: No Does the patient want assistance with any of the above?: No Health Related Social Needs Health related social needs: problems related to housing/economic circumstances (Z59.89) and problems with daily activities (Z73.9) Health related social needs details: Pt reports that he does have trouble getting his prescriptions. PFSH All Active Problems (Updated 04/14/25 @ 19:00 by Tammi Alejandro NP) Elevated troponin (Acute) Steroid dependence (Acute) Acute exacerbation of CHF (congestive heart failure) (Acute) Lung nodule (Acute) BPH w urinary obs/LUTS (Acute) Microcytic anemia (Acute) UTI (urinary tract infection) (Acute) Presence of stent in coronary artery in patient with coronary artery disease (Acute) Diastolic CHF (Chronic) HTN (hypertension) (Chronic) Pneumonia (Acute) Chronic renal failure (Chronic) Medical History (Updated 04/14/25 @ 19:00 by Tammi Alejandro NP) Non-STEMI (non-ST elevated myocardial infarction) History of tobacco use Hypospadias Chronic kidney disease, stage 3 Peripheral arterial occlusive disease Constipation Depression Lower urinary tract symptoms (LUTS) Exertional dyspnea Pulmonary hypertension due to left heart disease Coronary artery disease Diastolic heart failure Lower back pain Dysuria Anemia, iron deficiency Heartburn Screening for colon cancer Nocturia Urinary frequency Prediabetes Hypoxemia Multiple pulmonary nodules Lumbar back pain with radiculopathy affecting lower extremity Former smoker Congestion of nasal sinus CKD (chronic kidney disease) CHF (congestive heart failure) Alcoholism in recovery Hypospadias in male COPD (chronic obstructive pulmonary disease) Hyperlipidemia Essential hypertension Surgical History History of phacoemulsification of cataract of both eyes with intraocular lens implantation History of tonsillectomy Family History Father Throat cancer Heart disease Myocardial infarction Brother Heart disease Status post coronary stents Social History Smoking/Tobacco Use Status: Former Tobacco Use Quit Date: 01/11/17 Smoking risk assessment performed?: Yes Alcohol Intake: former Year quit: 2016 Details: Former alcoholic up to 2 cases of gin per month Drug use: Never Substance use type: does not use Housing: house Number of Children: 0 Pets and animals: Yes Pets and animals: dog(s) What is your relationship status?: Panel score (0-1 are the most socially isolated patients): 1 Do you feel safe at home: Yes Do you feel safe in your relationship?: Yes
[2025-04-15] MEDS: Potassium Chloride 20 MEQ TABCR 40 MEQ PO (10:48)
[2025-04-15] MEDS: POTASSIUM CHLORIDE 10 MEQ/100 ML BAG 100 MEQ IV_INF ×4 (11:13→15:48)
[2025-04-15 11:30] VITALS: BP 145/67; PULSE 62; RESP 127; TEMP 36.8; O2SAT 96
[2025-04-15] MEDS: Isosorbide Mononitrate 10 MG TAB PO (12:42)
--- NOTE | 2025-04-15 13:29 | DI.US_ITS ---
APPROVED REPORT EXAM: Comprehensive 2D, Doppler, and color-flow Echocardiogram Patient Location: In-Patient Room/Bed: [address] [facility] Laboratory Director: Eduarda Castillo RDCS (AE) Indications: CHF Other Information Study Quality: Poor. Technically limited study due to body habitus, lung disease, inability to positi on patient exam done with patient in seated position.. Conclusion Technically very difficult and suboptimal study Mild concentric left ventricular hypertrophy. Overall left ventricular systolic function appears wit hin the range of normal. No segmental wall motion abnormalities are identified Right atrium and right ventricle are not well-visualized Normal left atrial size Within the limits of the study, no abnormalities of the aortic or mitral valve are identified Wall motion Left Ventricle The left ventricle is normal size. The overall left ventricular systolic function appears normal. Jessenia hnically very limited. Exam done with patient in seated position. Mild concentric left ventricular hy pertrophy. Regional wall motion is not well visualized but grossly normal. There is no ventricular se ptal defect visualized. Right Ventricle Right ventricle is not well visualized. Right ventricular systolic function could not be assessed. Atria The left atrium size is normal. Right atrium is not well visualized. The interatrial septum is intact with no evidence for an atrial septal defect. Aortic Valve The aortic valve is normal in structure. Aortic valve is probably trileaflet. Technically limited keyanna ging window. There is no aortic valvular stenosis. No aortic regurgitation is present. Mitral Valve Mild mitral annular calcification. No evidence of mitral valve stenosis. Trace mitral regurgitation. Tricuspid Valve The tricuspid valve is normal in structure. There is no tricuspid valve stenosis. Trace tricuspid reg urgitation. Unable to assess PA pressure. Pulmonic Valve Pulmonic valve is not well visualized. There is no pulmonic valvular stenosis. There is no pulmonic v alvular regurgitation. Great Vessels The aortic root is normal in size. Ascending aorta is not well visualized. Aortic arch is not visual ized. IVC is normal in size and collapses >50% with inspiration. Pericardium There is no pericardial effusion. 2D Dimensions IVSD d PLAX 1.30 cm M: 0.6-1.2 Ao Root d 3.10 cm M: 3.1 - 3.7 LVPW d PLAX 1.34 cm M: 0.6 - 1.2 LVID d PLAX 4.20 cm M: 4.2 - 5.8 LVDs 2.93 cm M: 2.5 - 4.0 LV EF Teichholz 57.1 % FS 29.65 % LV EDV (Teich) 76.8 mL LV ESV (Teich) 32.9 mL LV Diastology MV E' medial 0.041 (>0.07 m/s) MV E Vmax 0.45 (0.4-1.3 m/s) MV E/E' MED 10.82 (<14) MV A Vmax 0.65 (0.4-1.3 m/s) E/A Ratio 0.7 Aortic Valve AoV Vmax 1.21 m/s LVOT Vmax 1.00 m/s AoV Peak Grad 5.8 mmHg LVOT Peak Grad 4.0 mmHg AoV Area (Vmax) 2.33 cm2 LVOT VTI 0.241 m AoV VTI 0.248 m LVOT Mean Grad 2.5 mmHg AoV Mean Aristeo. 0.87 m/s LVOT SV 68.04 mL AoV Mean Grad 3.4 mmHg LVOT Diam s 1.85 cm AoV Area (VTI) 2.75 cm2 AV Regurg Peak Gr. 5.83 mmHg Velocity Ratio 0.83 Mitral Valve MV DT 396 (160-240 msec) MV Vmax TIPS 0.80 m/s MV Mean Grad 1.0 (<2mmHg) MV VTI 0.254 m Pulmonary Valve PV Vmax 1.09 (0.5-1.5 m/s) RVOT Vmax 1.27 m/s PV Peak Grad 4.7 mmHg RVOT Peak Gr. 6.4 mmHg PV Mean Aristeo 0.68 m/s RVOT VTI 0.264 m PV Mean Grad 2.1 mmHg RVOT Mean Gr. 3.1 mmHg
[2025-04-15] MEDS: Albuterol 2.5 MG/3 ML INH SOLN VIAL UPD (14:40)
[2025-04-15 15:44] VITALS: BP 143/61; PULSE 64; RESP 16; TEMP 36.7; O2SAT 95
[2025-04-15] MEDS: Normal Saline Flush 10 ML SYR IVP (16:53)
--- NOTE | 2025-04-15 17:20 | DSE_ITS ---
Date of service: 04/15/25 Time of Service: 17:20 DS: Diagnosis Discharge Diagnosis (1) Acute exacerbation of CHF (congestive heart failure): Status: Acute (2) Elevated troponin: Status: Acute (3) Steroid dependence: Status: Acute (4) Chronic renal failure: Status: Chronic (5) HTN (hypertension): Status: Chronic Discharge Plan Disposition Patient Disposition: Home W/Home Health Services Condition: Poor Discharge Details Reason For Visit: CHF Exacerbation Admit Date/Time: 04/14/25 15:13 Admit Provider: Everardo Anne Attending Provider: Everardo Anne Primary Care Provider: Everardo [facility] Course Hospital Course: The patient is a 74-year-old male with a complex medical history who presented with several days of progressive dyspnea and a productive cough. He was brought in by EMS due to concern for CHF exacerbation. In the emergency department, troponins were mildly elevated (86, 88, 93), likely due to supply-demand mis match in the context of heart failure. BNP was elevated at 9307, and physical exam revealed peripheral edema and pulmonary crackles. Initial labs showed potassium 3.9 in the ED, and 2.9 this morning (04/15) for which the patient received 40 mEq IV and 40 mEq PO of potassium chloride. He was discharged on KCl 20 mEq daily with instructions to recheck BMP in one week. Magnesium was 2.0 and sodium 137. WBC was elevated at 16.78, attributed to steroid use. Chest X-ray showed no acute pathology. The patient was admitted for IV diuresis and close telemetry monitoring. He responded well to IV furosemide and showed improved symptoms with improved fluid status. His creatinine was 1.9, which is at baseline. No supplemental oxygen was required during hospitalization. It was noted that the patient had been using [id number] doses of dexamethasone. A detailed tapering plan was initiated (outlined below) to prevent adrenal insufficiency and mitigate fluid retention from steroid use. [facility] services were revoked upon this admission. The patient will now follow up with outpatient providers and receive home health services to support his care, including medication administration and vitals monitoring. The patient is stable at the time of discharge. He is ambulating without assistance, tolerating oral intake, and demonstrating understanding of his discharge instructions. He expressed a strong desire to return home to care for his dogs and feels confident managing his medical needs with support from home health services. DISPOSITION Discharged to home with home health services. The patient revoked hospice services during this hospitalization and is now under a medical management plan with outpatient follow-up. He is aware of when to seek medical attention and has appropriate support systems in place at home, including the ability to care for his pets. DISCHARGE MEDICATIONS * Potassium chloride 20 mEq PO daily * Furosemide 20 mg PO daily (adjust based on weight and I&O) * Continue home medications including: * Amlodipine 10 mg PO daily * Carvedilol 12.5 mg PO BID * Aspirin 81 mg PO daily * Rosuvastatin 40 mg PO daily * Clonidine 0.1 mg PO at bedtime * Duoneb and ProAir as needed * Pantoprazole, Finasteride, Tamsulosin, Nitroglycerin SL * Polyethylene glycol as needed * Torsemide - increase to 30 mg daily Dexamethasone Tapering Schedule (starting from 8 mg BID): * Days 1-3: 8 mg AM / 8 mg PM * Days 4-7: 8 mg AM / 6 mg PM * Days 8-11: 6 mg AM / 6 mg PM * Days 12-15: 6 mg AM / 4 mg PM * Days 16-: 4 mg AM / 4 mg PM * Days 20-: 4 mg AM / 2 mg PM * Days 24-: 2 mg AM / 2 mg PM * Day : 2 mg AM / 1 mg PM * Days -: 1 mg AM / 1 mg PM * Day : Discontinue or continue taper based on symptoms FOLLOW-UP PLAN * Primary Care with Dr. Malloy in 1 week * BMP in 1 week to monitor potassium and renal function (order placed, home health can draw) * Cardiology: For ongoing CHF and troponin monitoring * Home Health: Nursing support for vitals, education, medication management, physical therapy, [employer] * Medication reconciliation completed; all prescriptions sent to preferred pharmacy DISCHARGE CONDITION Stable. Ambulating short distances with mild exertional fatigue. Tolerating oral intake. No signs of respiratory distress. Able to manage with home support and follow-up. INSTRUCTIONS TO PATIENT * Adhere strictly to medication regimen, including potassium and diuretic doses * Follow steroid taper as instructed * Daily weights at home; call provider if gain >2 lbs in 24 hours or >5 lbs in one week * Monitor for symptoms of fluid overload (increased shortness of breath, swelling) * Call provider for signs of electrolyte imbalance (muscle cramps, weakness) * Keep follow-up appointments Home Meds and New Rx's Prescriptions: New dexamethasone 4 mg Tablet See Rx Instructions .ROUTE .COMPLEX Qty: 148 0RF Rx Instructions: 8 mg BID (16 mg/day) 5 days 8 mg AM, 4 mg PM (12 mg/day) 5 days 6 mg AM, 4 mg PM (10 mg/day) 5 days 6 mg AM, 2 mg PM (8 mg/day) 5 days 4 mg AM, 2 mg PM (6 mg/day) 5 days 4 mg AM (4 mg/day) 5 days 2 mg AM (2 mg/day) 5 days 1 mg AM (1 mg/day) 5 days potassium chloride 20 mEq tablet extended release 40 meq PO DAILY Qty: 30 0RF Continued nitroglycerin 0.4 mg tablet, sublingual 0.4 mg SL Q5M PRN rosuvastatin 40 mg tablet 40 mg PO DAILY finasteride 5 mg tablet 5 mg PO DAILY Qty: 90 3RF tamsulosin [Flomax] 0.4 mg capsule 0.8 mg PO DAILY Qty: 180 3RF guaifenesin [Mucinex] 600 mg tablet extended release 12hr 600 mg PO BID PRN Trelegy Ellipta 100-62.5-25 mcg blister with device 1 inh inhalation DAILY clonidine HCl 0.1 mg tablet 0.1 mg PO QHS nicotine 21 mg/24 hr patch 24 hour 1 patch transdermal DAILY carvedilol 12.5 mg Tablet 12.5 mg PO BID aspirin [Aspir-81] 81 mg Tablet,Delayed Release (Dr/Ec) 81 mg PO DAILY pantoprazole 40 mg Tablet,Delayed Release (Dr/Ec) 40 mg PO DAILY albuterol sulfate [ProAir HFA] 200 PUFF HFA aerosol inhaler 2 puff Inhalation Q4H PRN PRNQty: 1 0RF amlodipine 10 mg Tablet 10 mg PO DAILY polyethylene glycol 3350 [GlycoLax] 17 gram/dose Powder 17 g PO DAILY PRN ipratropium-albuterol 0.5 mg-3 mg(2.5 mg base)/3 mL solution for nebulization 3 ml IH Q6H Qty: 90 0RF Changed torsemide 20 mg Tablet 30 mg PO DAILY Qty: 0 0RF Discontinued dexamethasone 2 mg tablet 4 mg PO BID Patient Comments: TAKE TWO TABLETS BY MOUTH EVERY MORNING FOR SHORTNESS OF BREATH,pt not taking med appropriately taking atleast twice what is recommended/order Discharge Instructions Instructions: Hypokalemia, Heart Failure, Adult (DC) Additional Instructions: Medications: * Torsemide: Take as prescribed to help remove excess fluid. This may cause increased urination. Take in the morning to avoid nighttime trips to the bathroom. * Potassium supplement: Take exactly as directed. This helps prevent low potassium levels caused by the diuretic. Take 20 meq daily (NOT 40 meq) * Dexamethasone (Steroid Taper): Take as scheduled. This medication is being tapered gradually?not as needed?to reduce inflammation and avoid withdrawal. Follow the exact dosing instructions provided. Do not stop abruptly or take more than prescribed. Important Reminders: * Daily weights: Weigh yourself every morning after urinating and before eating. Keep a log. * Call your doctor if you gain 2 pounds in 1 day or 5 pounds in a week. * Low-sodium diet: Avoid salty foods. Read labels carefully. Aim for less than 2,000 mg sodium/day unless told otherwise. * Fluid restriction: Limit fluids to 1000 ml per day. * Monitor symptoms: Call your provider if you notice: * Worsening shortness of breath * Swelling in your legs, ankles, or abdomen * Fatigue, dizziness, or chest pain Follow-up: * Follow up with your primary care or cardiology provider within 1 week. * Lab work has been ordered to check kidney function and potassium levels. Stand Alone Forms: Nursing Discharge Form Referrals: Everardo Malloy MD [Primary Care Provider] - 04/22/25 11:45 am () Activity:: Activity as Tolerated Equipment/Supplies:: Oxygen (L/min Below) Diet:: As Tolerated Discharge Orders Discharge Orders: Discharge Order (Routine); Ordered 04/15/25 Ordered By: Tammi Alejandro Other Ambulatory Orders: Basic Metabolic Panel (Routine) Timeframe: 1 Week Facility: [facility] - Location: Laboratory Outpatient - [facility] Ordered By: Tammi Alejandro Discharge Data Discharge Date/Time-TO BE ENTERED AT DEPARTURE: 04/15/25 18:23 DS: Summary Time Spent with Patient providing and/or coordinating discharge services: Greater than 30 minutes Status at Discharge Functional status at discharge: uses cane/walker Overall status at discharge: patient is progressing back to baseline Mental Status: mental status grossly normal Speech and Movement: speech and movement normal Mood: congruent mood Affect: normal affect Quality:SDOH Health Related Social Needs: Health related social needs problems related to housin g/economic circumstances (Z59.89), problems with daily activities (Z73.9) Health related social needs details Pt reports that he does have trouble getting his prescriptions. Health related social needs details: Pt reports that he does have trouble getting his prescriptions. Exam Narrative Exam Narrative: * General: Alert, awake, and oriented. In no acute distress. * HEENT: No signs of trauma, non-icteric sclera. * Neck: Supple, no jugular venous distention * Lungs: Bilateral crackles at the lung bases, expiratory wheezing, no significant tachypnea or retractions. * Cardiovascular: Regular rate and rhythm, no murmurs, no jugular venous distention, strong distal pulses. * Abdomen: Soft, non-distended, non-tender, no palpable masses. * Musculoskeletal: Full range of motion in all extremities, no joint deformities. 1+ bilateral peripheral edema to mid-shins. * Skin: No rashes or cyanosis. * Neurological: Alert and oriented x3. No focal deficits, normal speech, no facial asymmetry. * Psychiatric: Cooperative, appropriate mood and affect. Psych Mental Status: mental status grossly normal Speech and Movement: speech and movement normal Mood: congruent mood Affect: normal affect DS: Data Vitals/I&O Vitals and I&O: Vital Signs Temperature 36.7 C 04/15/25 15:44 Temperature Source Temporal Artery Scan 04/15/25 15:44 Pulse 64 04/15/25 15:44 Pulse Rhythm Regular 04/14/25 16:49 Pulse 70 04/14/25 16:31 Respiratory Rate 16 04/15/25 15:44 Respiratory Effort Short of Breath, Labored 04/14/25 16:49 Respiratory Depth Normal 04/14/25 16:49 Respiratory Pattern Normal 04/14/25 16:49 Blood Pressure 143/61 H 04/15/25 15:44 Blood Pressure Mean 88 04/15/25 15:44 Pulse Oximetry 95 04/15/25 15:44 Oxygen Delivery Method Room Air 04/15/25 15:44 Oxygen Flow Rate 0 04/15/25 15:44 Pain Level 8 04/15/25 11:30 Intake & Output 04/14/25 04/15/25 04/15/25 23:59 11:59 23:59 Intake Total 300 / 300 Output Total 800 / 800 Balance -800 / -800 300 / 300 Weight 85.275 kg 87.7 kg Intake: IV 300 / 300 Output: Urine 800 / 800 Other: Urine Color Yellow Yellow Urine Appearance Cloudy Clear Urine Odor Strong None Comment Voided and flushed prior to this nurse visualizing. pt states he urinated in the toilet and forgot to do it in the urinal Data Completed and Pending Labs on day of discharge: Labs from last 24 hours 04/15/25 04/15/25 17:12 09:00 WBC 16.78 H RBC 6.55 H Hgb 13.3 L Hct 40.8 MCV 62 L MCH 20.3 L MCHC 32.6 RDW 22.3 H Plt Count 181 MPV 8.8 Immature Gran % 0.0 Neutrophils % 90.0 Band Neutrophils % 2 Lymphocytes % 3.0 Atypical Lymphs % 1 Monocytes % 2.0 Eosinophils % 0.0 Basophils % 0.0 Metamyelocytes % 1 Myelocytes % 1 Nucleated RBC % 5.0 H Absolute Neutrophils 15.44 H Absolute Lymphocytes 0.67 L Absolute Monocytes 0.34 Absolute Eosinophils 0.00 Absolute Basophils 0.00 RBC Morphology See Below Anisocytosis 2+ Microcytosis 2+ Sodium Pending 140 Potassium Pending Chloride Pending 100 Carbon Dioxide Pending 29.0 Anion Gap Pending 9.0 BUN Pending 51 H Creatinine Pending 1.2 Est GFR (CKD-EPI 2020) Pending 64.25 Glucose Pending 163 H Calcium Pending 8.8 Magnesium 2.0 Total Bilirubin 1.6 H AST 12 L ALT 33 Alkaline Phosphatase 59 Total Protein 6.2 L Albumin 3.1 L PFSH All Active Problems (Updated 04/15/25 @ 17:17 by Tammi Alejandro NP) Hypokalemia (Acute) Elevated troponin (Acute) Steroid dependence (Acute) Acute exacerbation of CHF (congestive heart failure) (Acute) Lung nodule (Acute) BPH w urinary obs/LUTS (Acute) Microcytic anemia (Acute) UTI (urinary tract infection) (Acute) Presence of stent in coronary artery in patient with coronary artery disease (Acute) Diastolic CHF (Chronic) HTN (hypertension) (Chronic) Pneumonia (Acute) Chronic renal failure (Chronic) Medical History (Updated 04/15/25 @ 17:17 by Tammi Alejandro NP) Non-STEMI (non-ST elevated myocardial infarction) History of tobacco use Hypospadias Chronic kidney disease, stage 3 Peripheral arterial occlusive disease Constipation Depression Lower urinary tract symptoms (LUTS) Exertional dyspnea Pulmonary hypertension due to left heart disease Coronary artery disease Diastolic heart failure Lower back pain Dysuria Anemia, iron deficiency Heartburn Screening for colon cancer Nocturia Urinary frequency Prediabetes Hypoxemia Multiple pulmonary nodules Lumbar back pain with radiculopathy affecting lower extremity Former smoker Congestion of nasal sinus CKD (chronic kidney disease) CHF (congestive heart failure) Alcoholism in recovery Hypospadias in male COPD (chronic obstructive pulmonary disease) Hyperlipidemia Essential hypertension Surgical History History of phacoemulsification of cataract of both eyes with intraocular lens implantation History of tonsillectomy Family History Father Throat cancer Heart disease Myocardial infarction Brother Heart disease Status post coronary stents Social History Smoking/Tobacco Use Status: Former Tobacco Use Quit Date: 01/11/17 Smoking risk assessment performed?: Yes Alcohol Intake: former Year quit: 2016 Details: Former alcoholic up to 2 cases of gin per month Drug use: Never Substance use type: does not use Housing: house Number of Children: 0 Pets and animals: Yes Pets and animals: dog(s) What is your relationship status?: Panel score (0-1 are the most socially isolated patients): 1 Do you feel safe at home: Yes Do you feel safe in your relationship?: Yes Time Spent with Patient Time Spent with Patient: 45-69 minutes Time was spent: preparing to see the patient(eg.review tests), ordering medications,tests, procedures, referring, communicating with other health landcare officer, indepentently interpreting results, counseling the patient and care coordination
[2025-04-15 17:31] LABS: Anion Gap 8.1 mmol/L (3-11); BUN 62 mg/dL (7-18); CO2 26.9 mmol/L (21.0-32.0); CREATININE 1.9 mg/dL (0.70-1.30); Calcium 8.7 mg/dL (8.5-10.1); Chloride 102 mmol/L (98-107); Estimated GFR 37.02 (mL/min/1.73m2); Glucose 129 mg/dL (74-106); Potassium 4.6 mmol/L (3.5-5.1); Sodium 137 mmol/L (136-145)
--- NOTE | 2025-04-15 19:57 | PDOC.HHF2F ---
Home Health Referral Home Health Orders Clinical synopsis of why skilled professionals are needed: The patient is a 74-year-old male with a complex medical history who presented with several days of progressive dyspnea and a productive cough. He was brought in by EMS due to concern for CHF exacerbation. In the emergency department, troponins were mildly elevated (86, 88, 93), likely due to supply-demand mismatch in the context of heart failure. BNP was elevated at 9307, and physical exam revealed peripheral edema and pulmonary crackles. Initial labs showed potassium 3.9 in the ED, and 2.9 this morning (04/15) for which the patient received 40 mEq IV and 40 mEq PO of potassium chloride. He was discharged on KCl 20 mEq daily with instructions to recheck BMP in one week. Magnesium was 2.0 and sodium 137. WBC was elevated at 16.78, attributed to steroid use. Chest X-ray showed no acute pathology. The patient was admitted for IV diuresis and close telemetry monitoring. He responded well to IV furosemide and showed improved symptoms with improved fluid status. His creatinine was 1.9, which is at baseline. No supplemental oxygen was required during hospitalization. It was noted that the patient had been using gxcskj-nteq-[id number] doses of dexamethasone. A detailed tapering plan was initiated (outlined below) to prevent adrenal insufficiency and mitigate fluid retention from steroid use. [facility] services were revoked upon this admission. The patient will now follow up with outpatient providers and receive home health services to support his care, including medication administration and vitals monitoring. The patient is stable at the time of discharge. He is ambulating without assistance, tolerating oral intake, and demonstrating understanding of his discharge instructions. He expressed a strong desire to return home to care for his dogs and feels confident managing his medical needs with support from home health services. Medical diagnosis necessitation home health referral: CHF Registered Nurse: Check all that apply Instruct on new or changed medication(s)/assess compliance: Ordered Assess for exacerbation of medical condition, instruct patient/caregivers on signs and symptoms to report for early detection: Ordered Other: BMP next week (order already placed) Physical Therapist: Check all that apply Increase strength & endurance for safe mobility at home: Ordered To design/establish home maintenance program: Ordered Fall reduction therapy program for patient with history of frequent falls: Ordered Home safety evaluation and teaching/gait training including stair management (if applicable): Ordered Acid Correction Hand: Assist with community resources: Ordered Assist with longterm care planning: Ordered Home Bound Status Requires the aid of supportive device (check all that apply): Walker Describe why leaving home would require a considerable and taxing effort: Side effects from pain medication (sedation/drowsiness) and Oxygen Encounter Date and Reason: I certify that a FTF encounter for this patient was performed on April 15, 2025 and that such encounter was related to the primary reason the patient requires home health services. The encounter was conducted in the following manner: By me as the certifying physician, PRODUCT MARKETING COORDINATOR, PA or By an inpatient physician, PRODUCT MARKETING COORDINATOR or PA during an inpatient stay who communicated findings to me, Certification And Authentication I certify that I composed the above information based on my clinical judgment relating to this patient's medical condition and, if applicable, clinical findings communicated to me by the NPP or inpatient physician who performed the FTF encounter. Name of Provider that will be monitoring home health services: Everardo Malloy
== END 2025-04-15 18:23 | disposition home health service (06) ==
LOC: ER 15:13 → MS 04-15 09:24
PROVIDERS: Admitting Provider Hospitalist; Emergency Provider Emergency Medicine; PCP Family Medicine; Responsible Provider Nurse Practitioner Family; Visit Provider Hospitalist
DX: I13.0 Hypertensive heart and chronic kidney disease with heart failure and stage 1 through stage 4 chronic kidney disease, or unspecified chronic kidney disease (principal); I50.33 Acute on chronic diastolic (congestive) heart failure; R74.8 Abnormal levels of other serum enzymes; E87.6 Hypokalemia; Z79.52 Long term (current) use of systemic steroids; N18.30 Chronic kidney disease, stage 3 unspecified; J44.9 Chronic obstructive pulmonary disease, unspecified; I25.10 Atherosclerotic heart disease of native coronary artery without angina pectoris; I73.9 Peripheral vascular disease, unspecified; E11.22 Type 2 diabetes mellitus with diabetic chronic kidney disease; E78.5 Hyperlipidemia, unspecified; F32.A Depression, unspecified; I27.22 Pulmonary hypertension due to left heart disease; F10.21 Alcohol dependence, in remission; I25.2 Old myocardial infarction; G89.29 Other chronic pain; Z79.899 Other long term (current) drug therapy; Z87.891 Personal history of nicotine dependence; R91.1 Solitary pulmonary nodule; N40.1 Benign prostatic hyperplasia with lower urinary tract symptoms; Z95.5 Presence of coronary angioplasty implant and graft; D50.9 Iron deficiency anemia, unspecified
CPT/HCPCS: 00123; 36415; 80048; 80053; 93005; 93306; 94640; 96374; 96375; 96376; 99285; 71046; 83735; 83880; 84484; 85025; 93010; 94664; 94760; 99222; 99239; G0378; J0360; J1938; J3480; J3490; J7512; J7613; J7620; J8540

== ENCOUNTER 2025-04-20 18:15 | Inpatient (IN) | payer MEDICARE, SELFPAY ==
[2025-04-20] VITALS (45 sets, daily range): BP systolic 120–202; BP diastolic 65–106; PULSE 56–93; RESP 9–40; O2SAT 91–100
--- NOTE | 2025-04-20 18:00 | RT.EKG_ITS ---
APPROVED REPORT Exam: Resting ECG Reason for Exam: sob Patient Location: E HR:85 bpm ECG Measurements Heart Rate 85 AXIS RI 167 P 123 QRSd 110 QRS 61 QT 406 T 32 QTc 483 Conclusion Sinus rhythms 85 no stemi
--- NOTE | 2025-04-20 18:15 | DI.RAD_ITS ---
Exam(s) XR PORTABLE CHEST AP EXAM: XR PORTABLE CHEST AP CLINICAL HISTORY: sob. TECHNIQUE: 2D digital imaging was performed. COMPARISON: CR XR PORTABLE CHEST AP from 09/22/[address] CHEST WO from 02/27/2024 FINDINGS: Single AP portable view. Heart size is upper normal. The mediastinum is not widened. Left lung is clear. There is a partially calcified nodular infiltrate in the anterior aspect of the right upper lobe, corresponding to finding on CT scan of 02/27/2024 In addition, there is slightly increased markings in the right lung base just below this nodular dens ity, more so than previous. There are no pleural effusions. No pulmonary edema IMPRESSION: Stable partially calcified nodular density located anteriorly in the lower aspect of the anterior seg ment of the right upper lobe, as best seen on prior CT scan 02/27/2024. However, there also appears to be slightly increasing markings just below this level in the right lung base and this may represen t developing infiltrate at this location. There are no pleural effusions. DATA REPOSITORY: RADIATION DOSE DELIVERED:
[2025-04-20] MEDS: Albuterol/Ipratropium 3 ML UPD VIAL (18:39)
[2025-04-20] MEDS: methylPREDNISolone SUCC 125 MG VIAL IVP (18:43)
[2025-04-20 18:46] LABS: HCT 44.7 % (40.0-50.0); HGB 14.1 g/dL (13.5-17.5); MCH 20.2 pg (27.0-33.0); MCHC 31.5 % (32.0-36.0); MCV 64 fL (80-95); MPV 9.1 fL (8.0-11.0); Platelet Count 169 10^3/uL (130-400); RBC 6.98 10^6/uL (4.36-5.78); RDW 23.1 % (11.8-14.1); RDW-SD 44.4 fL; WBC 18.18 10^3/uL (4.4-10.8)
[2025-04-20] MEDS: LORazepam 0.5 MG TAB PO (18:57)
[2025-04-20 19:06] LABS: BE (Venous) 3 mmol/L (-2-3); HCO3 (Venous) 28 mmol/L (23-28); O2 Sat (Venous) 89 %; TCO2 (Venous) 25 mmol/L (24-29); pCO2 (Venous) 42 mmHg (41-51); pH (Venous) 7.43 (7.31-7.41); pO2 (Venous) 53 mmHg
[2025-04-20 19:13] LABS: Absolute Lymphocyte Count 3.64 10^3/uL (1.2-3.4); Absolute Monocyte Count 0.91 10^3/uL (0.1-0.8); Absolute Neutrophil Count 13.27 10^3/uL (1.2-6.7); Anisocytosis 2+; Atypical Lymphocytes % 2 %; Bands % 1 %; Diff Comment Manual Differential; Hypochromasia 1+; Metamyelocytes % 1; Microcytosis 2+; Myelocytes % 1; Polychromasia Present
[2025-04-20 19:14] LABS: Troponin I 69 ng/L (<or=76)
[2025-04-20 19:18] LABS: ALT 51 U/L (16-63); AST 20 U/L (15-37); Albumin 3.5 g/dL (3.4-5.0); Alkaline Phosphatase 70 U/L (46-116); Anion Gap 8.7 mmol/L (3-11); BUN 52 mg/dL (7-18); Bilirubin, Total 1.8 mg/dL (0.2-1.0); CO2 30.3 mmol/L (21.0-32.0); Calcium 8.8 mg/dL (8.5-10.1); Chloride 104 mmol/L (98-107); Estimated GFR 49.16 (mL/min/1.73m2); Glucose 98 mg/dL (74-106); NT-proBNP 5033 pg/mL (<300); Potassium 4.2 mmol/L (3.5-5.1); Sodium 143 mmol/L (136-145); Total Protein 6.3 g/dL (6.4-8.2)
[2025-04-20 20:18] LABS: Troponin I 77 ng/L (<or=76)
--- NOTE | 2025-04-20 20:28 | DI.VRAD_ITS ---
PROCEDURE INFORMATION: Exam: XR Chest Exam date and time: 04/20/2025 7:31 PM Age: 74 years old Clinical indication: Shortness of breath; SOB TECHNIQUE: Imaging protocol: Radiologic exam of the chest. Views: 1 view. COMPARISON: 1. CR XR CHEST 2V PA LATERAL 04/14/2025 12:[address] CHEST WO 02/27/2024 8:[address] CHEST PE CTA 09/22/2023 11:24 AM FINDINGS: Lungs: There is a 2.8 cm x 1.7 cm nodular lesion projecting over the right lower lung zone which is also seen on prior CT exams from February 27, 2024 and September 22, 2023. Coarse calcifications are demonstrated within this finding on the comparison CT exams. No pulmonary consolidation is seen. Pleural spaces: No pleural effusion or pneumothorax is demonstrated. Heart/Mediastinum: The heart appears normal in size. Bones/joints: The visualized bony structures appear grossly intact. IMPRESSION: 1. No active disease is seen in the chest. 2. 2.8 cm x 1.7 cm partially calcified pulmonary nodule redemonstrated in the right lower lung zone as seen on prior exams dating back to at least September 22, 2023. Dictated and Authenticated by: Joes Manuel Preciado MD. Orderin Kitty Sung MD
--- NOTE | 2025-04-20 20:55 | NUR.NOTE ---
O2 Sat Ambulatory Trial, Pt maintained 92 -92 % on Room Air while ambulating to the bathroom and back, pt reports increased weakness and work of breathing, FPJ
[2025-04-20] MEDS: Aspirin 325 MG TAB PO (21:10)
[2025-04-20] MEDS: Furosemide 100 MG/10 ML VIAL 80 MG IVP (21:10)
[2025-04-20 22:01] LABS: Troponin I 73 ng/L (<or=76)
[2025-04-20 22:22] LABS: COVID-19 PCR Negative (Negative); Influenza A PCR Negative (Negative); Influenza B PCR Negative (Negative); RSV PCR Negative (Negative)
[2025-04-20 22:24] LABS: Source Nasopharynx
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
[2025-04-20] MEDS: Albuterol/Ipratropium 3 ML UPD VIAL UPD (22:41)
--- NOTE | 2025-04-20 22:50 | W.ED.GENAD ---
Discharge Plan Disposition Patient Disposition: Admit to [facility] Condition: Stable Discharge Details Clinical Impression: Acute exacerbation of chronic obstructive pulmonary disease, Steroid dependence Primary Care Provider: Everardo Malloy ED Provider: Scotty Tang Home Meds and New Rx's Prescriptions: No Action nitroglycerin 0.4 mg tablet, sublingual 0.4 mg SL Q5M PRN rosuvastatin 40 mg tablet 40 mg PO DAILY finasteride 5 mg tablet 5 mg PO DAILY Qty: 90 3RF tamsulosin [Flomax] 0.4 mg capsule 0.8 mg PO DAILY Qty: 180 3RF guaifenesin [Mucinex] 600 mg tablet extended release 12hr 600 mg PO BID PRN Trelegy Ellipta 100-62.5-25 mcg blister with device 1 inh inhalation DAILY clonidine HCl 0.1 mg tablet 0.1 mg PO QHS nicotine 21 mg/24 hr patch 24 hour 1 patch transdermal DAILY carvedilol 12.5 mg Tablet 12.5 mg PO BID aspirin [Aspir-81] 81 mg Tablet,Delayed Release (Dr/Ec) 81 mg PO DAILY pantoprazole 40 mg Tablet,Delayed Release (Dr/Ec) 40 mg PO DAILY albuterol sulfate [ProAir HFA] 200 PUFF HFA aerosol inhaler 2 puff Inhalation Q4H PRN PRNQty: 1 0RF amlodipine 10 mg Tablet 10 mg PO DAILY polyethylene glycol 3350 [GlycoLax] 17 gram/dose Powder 17 g PO DAILY PRN ipratropium-albuterol 0.5 mg-3 mg(2.5 mg base)/3 mL solution for nebulization 3 ml IH Q6H Qty: 90 0RF torsemide 20 mg Tablet 30 mg PO DAILY Qty: 0 0RF potassium chloride 20 mEq tablet extended release 40 meq PO DAILY Qty: 30 0RF HPI General Date/Time Provider Initiated Documentation: 04/20/25 18:23. Limitations to Documentation: physical limitation. Information obtained by: patient, EMS and old records reviewed. HPI Narrative: 74-year-old gentleman with past medical history of hypertension, CHF, COPD, still smoking, long-term steroid use presents for evaluation of acute shortness of breath. He reports that last night he started having shortness of breath he reports that the symptoms persisted throughout the day. He only has an albuterol inhaler at home and reports no improvement with this. On EMS arrival, the patient was very short of breath and tachypneic. He was unable to provide much information on arrival secondary to his respiratory distress. Related Data Home Medications Medication Instructions Recorded Confirmed albuterol sulfate 90 mcg/actuation 2 puff inhalation Q4H PRN PRN #1 04/29/17 04/20/25 aerosol inhaler (ProAir HFA) inh amlodipine 10 mg tablet 10 mg PO DAILY 02/19/19 04/20/25 ipratropium 0.5 mg-albuterol 3 mg 3 ml inhalation Q6H #90 mL 02/19/19 04/20/25 (2.5 mg base)/3 mL nebulization soln polyethylene glycol 3350 17 17 g PO DAILY PRN 02/19/19 04/20/25 gram/dose oral powder (GlycoLax) aspirin 81 mg tablet,delayed 81 mg PO DAILY 05/10/19 04/20/25 release (Aspir-) carvedilol 12.5 mg tablet 12.5 mg PO BID 05/10/19 04/20/25 pantoprazole 40 mg tablet,delayed 40 mg PO DAILY 05/10/19 04/20/25 release nitroglycerin 0.4 mg sublingual 0.4 mg sublingual Q5M PRN 12/04/19 04/20/25 tablet rosuvastatin 40 mg tablet 40 mg PO DAILY 12/04/19 04/20/25 finasteride 5 mg tablet 5 mg PO DAILY #90 tabs 11/08/21 04/20/25 tamsulosin 0.4 mg capsule (Flomax) 0.8 mg (2 x 0.4 mg) PO DAILY #180 11/08/21 04/20/25 caps clonidine HCl 0.1 mg tablet 0.1 mg PO QHS 02/28/23 04/20/25 fluticasone fur. 100 mcg-umeclid 1 inh inhalation DAILY 02/28/23 04/20/25 62.5 mcg-vilant 25 mcg inhalat.powder (Trelegy Ellipta) guaifenesin 600 mg tablet, 600 mg PO BID PRN 02/28/23 04/20/25 extended release 12 hr (Mucinex) nicotine 21 mg/24 hr daily 1 patch transdermal DAILY 02/28/23 04/20/25 transdermal patch potassium chloride 20 mEq 40 meq (2 x 20 mEq) PO DAILY #30 04/15/25 04/20/25 tablet,extended release tabs torsemide 20 mg tablet 30 mg (1.5 x 20 mg) PO DAILY #0 04/15/25 04/20/25 tabs Previous Rx's Medication Instructions Recorded albuterol sulfate 90 mcg/actuation 2 puff inhalation Q4H PRN PRN #1 04/29/17 aerosol inhaler (ProAir HFA) inh ipratropium 0.5 mg-albuterol 3 mg 3 ml inhalation Q6H #90 mL 02/19/19 (2.5 mg base)/3 mL nebulization soln finasteride 5 mg tablet 5 mg PO DAILY #90 tabs 11/08/21 tamsulosin 0.4 mg capsule (Flomax) 0.8 mg (2 x 0.4 mg) PO DAILY #180 11/08/21 caps potassium chloride 20 mEq 40 meq (2 x 20 mEq) PO DAILY #30 04/15/25 tablet,extended release tabs torsemide 20 mg tablet 30 mg (1.5 x 20 mg) PO DAILY #0 04/15/25 tabs Allergies Allergy/AdvReac Type Severity Reaction Status Date / Time lisinopril AdvReac Unknown low BP, Unverified 04/20/25 18:57 worsening CKD codeine phosphate (From AdvReac constipatio Unverified 04/20/25 18:57 Tylenol-Codeine) n General Stated Complaint: RespSymp DAISY: 2 Exam Narrative Exam Narrative: Review of Systems: All systems reviewed & are unremarkable except as noted in HPI and below Obese, beauchamp facies, acute respiratory distress NCAT Hypertensive Minimal air movement, tripoding, accessory muscle use and retractions, tachypneic Nondistended abdomen, soft, nontender, mottled discoloration of the abdomen Extremities w/o edema , warm to touch Course Vital Signs Vital signs: Vital Signs Pulse 66 04/20/25 18:16 Respiratory Rate 40 H 04/20/25 18:16 Blood Pressure 202/86 H 04/20/25 18:16 Pulse Oximetry 99 04/20/25 18:16 Pulse 79 04/20/25 22:21 Pulse 79 04/20/25 22:21 Respiratory Rate 20 04/20/25 22:21 Respiratory Effort Short of Breath, Labored, Nasal Flaring, Incrsd Work of Breathing 04/20/25 18:30 Respiratory Depth Deep 04/20/25 18:30 Blood Pressure 168/106 H 04/20/25 22:21 Blood Pressure Mean 126 04/20/25 22:21 Pulse Oximetry 91 L 04/20/25 22:21 Oxygen Delivery Method Non-Rebreather 04/20/25 18:16 Fraction of Inspired Oxygen (FIO2) 24 04/20/25 18:39 Lab/Test Results Lab/Test Results: Laboratory Tests Range/Units 04/20/25 04/20/25 04/20/25 18:40 18:40 18:40 WBC (4.4-10.8) 10^3/uL 18.18 H RBC (4.36-5.78) 10^6/uL 6.98 H Hgb (13.5-17.5) g/dL 14.1 Hct (40.0-50.0) % 44.7 MCV (80-95) fL 64 L MCH (27.0-33.0) pg 20.2 L MCHC (32.0-36.0) % 31.5 L RDW (11.8-14.1) % 23.1 H Plt Count (130-400) 10^3/uL 169 MPV (8.0-11.0) fL 9.1 Immature Gran % See Differential Neutrophils % % 72.0 Band Neutrophils % % 1 Lymphocytes % % 18.0 Atypical Lymphs % % 2 Monocytes % % 5.0 Eosinophils % % 0.0 Basophils % % 0.0 Metamyelocytes % 1 Myelocytes % 1 Nucleated RBC % (0.0-0.3) % 2.0 H Absolute Neutrophils (1.2-6.7) 10^3/uL 13.27 H Absolute Lymphocytes (1.2-3.4) 10^3/uL 3.64 H Absolute Monocytes (0.1-0.8) 10^3/uL 0.91 H Absolute Eosinophils (0.0-0.7) 10^3/uL 0.00 Absolute Basophils (0.0-0.2) 10^3/uL 0.00 RBC Morphology See Below Polychromasia Present Hypochromasia 1+ Anisocytosis 2+ Microcytosis 2+ VBG pH (7.31-7.41) VBG pCO2 (41-51) mmHg VBG pO2 mmHg VBG HCO3 (23-28) mmol/L VBG Total CO2 (24-29) mmol/L VBG O2 Saturation % VBG Base Excess (-2-3) mmol/L Sodium Cancelled 143 Potassium Cancelled 4.2 Chloride Cancelled Carbon Dioxide Anion Gap BUN Creatinine Est GFR (CKD-EPI 2020) Glucose Calcium Total Bilirubin AST ALT Alkaline Phosphatase Troponin I (<or=76) ng/L NT-Pro-B Natriuret Pep (<300) pg/mL Total Protein Albumin COVID-19 Source SARS-CoV-2 (PCR) (Negative) Influenza Type A (PCR) (Negative) Influenza Type B (PCR) (Negative) RSV (PCR) (Negative) Range/Units 04/20/25 04/20/25 04/20/25 18:40 18:40 18:40 WBC (4.4-10.8) 10^3/uL RBC (4.36-5.78) 10^6/uL Hgb (13.5-17.5) g/dL Hct (40.0-50.0) % MCV (80-95) fL MCH (27.0-33.0) pg MCHC (32.0-36.0) % RDW (11.8-14.1) % Plt Count (130-400) 10^3/uL MPV (8.0-11.0) fL Immature Gran % Neutrophils % % Band Neutrophils % % Lymphocytes % % Atypical Lymphs % % Monocytes % % Eosinophils % % Basophils % % Metamyelocytes % Myelocytes % Nucleated RBC % (0.0-0.3) % Absolute Neutrophils (1.2-6.7) 10^3/uL Absolute Lymphocytes (1.2-3.4) 10^3/uL Absolute Monocytes (0.1-0.8) 10^3/uL Absolute Eosinophils (0.0-0.7) 10^3/uL Absolute Basophils (0.0-0.2) 10^3/uL RBC Morphology Polychromasia Hypochromasia Anisocytosis Microcytosis VBG pH (7.31-7.41) VBG pCO2 (41-51) mmHg VBG pO2 mmHg VBG HCO3 (23-28) mmol/L VBG Total CO2 (24-29) mmol/L VBG O2 Saturation % VBG Base Excess (-2-3) mmol/L Sodium Potassium Chloride 104 Carbon Dioxide Cancelled 30.3 Anion Gap Cancelled 8.7 BUN Cancelled Creatinine Est GFR (CKD-EPI 2020) Glucose Calcium Total Bilirubin AST ALT Alkaline Phosphatase Troponin I (<or=76) ng/L NT-Pro-B Natriuret Pep (<300) pg/mL Total Protein Albumin COVID-19 Source SARS-CoV-2 (PCR) (Negative) Influenza Type A (PCR) (Negative) Influenza Type B (PCR) (Negative) RSV (PCR) (Negative) Range/Units 04/20/25 04/20/25 04/20/25 18:40 18:40 18:40 WBC (4.4-10.8) 10^3/uL RBC (4.36-5.78) 10^6/uL Hgb (13.5-17.5) g/dL Hct (40.0-50.0) % MCV (80-95) fL MCH (27.0-33.0) pg MCHC (32.0-36.0) % RDW (11.8-14.1) % Plt Count (130-400) 10^3/uL MPV (8.0-11.0) fL Immature Gran % Neutrophils % % Band Neutrophils % % Lymphocytes % % Atypical Lymphs % % Monocytes % % Eosinophils % % Basophils % % Metamyelocytes % Myelocytes % Nucleated RBC % (0.0-0.3) % Absolute Neutrophils (1.2-6.7) 10^3/uL Absolute Lymphocytes (1.2-3.4) 10^3/uL Absolute Monocytes (0.1-0.8) 10^3/uL Absolute Eosinophils (0.0-0.7) 10^3/uL Absolute Basophils (0.0-0.2) 10^3/uL RBC Morphology Polychromasia Hypochromasia Anisocytosis Microcytosis VBG pH (7.31-7.41) VBG pCO2 (41-51) mmHg VBG pO2 mmHg VBG HCO3 (23-28) mmol/L VBG Total CO2 (24-29) mmol/L VBG O2 Saturation % VBG Base Excess (-2-3) mmol/L Sodium Potassium Chloride Carbon Dioxide Anion Gap BUN 52 H Creatinine Cancelled 1.5 H Est GFR (CKD-EPI 2020) Cancelled 49.16 Glucose Cancelled Calcium Total Bilirubin AST ALT Alkaline Phosphatase Troponin I (<or=76) ng/L NT-Pro-B Natriuret Pep (<300) pg/mL Total Protein Albumin COVID-19 Source SARS-CoV-2 (PCR) (Negative) Influenza Type A (PCR) (Negative) Influenza Type B (PCR) (Negative) RSV (PCR) (Negative) Range/Units 04/20/25 04/20/25 04/20/25 18:40 18:40 18:40 WBC (4.4-10.8) 10^3/uL RBC (4.36-5.78) 10^6/uL Hgb (13.5-17.5) g/dL Hct (40.0-50.0) % MCV (80-95) fL MCH (27.0-33.0) pg MCHC (32.0-36.0) % RDW (11.8-14.1) % Plt Count (130-400) 10^3/uL MPV (8.0-11.0) fL Immature Gran % Neutrophils % % Band Neutrophils % % Lymphocytes % % Atypical Lymphs % % Monocytes % % Eosinophils % % Basophils % % Metamyelocytes % Myelocytes % Nucleated RBC % (0.0-0.3) % Absolute Neutrophils (1.2-6.7) 10^3/uL Absolute Lymphocytes (1.2-3.4) 10^3/uL Absolute Monocytes (0.1-0.8) 10^3/uL Absolute Eosinophils (0.0-0.7) 10^3/uL Absolute Basophils (0.0-0.2) 10^3/uL RBC Morphology Polychromasia Hypochromasia Anisocytosis Microcytosis VBG pH (7.31-7.41) VBG pCO2 (41-51) mmHg VBG pO2 mmHg VBG HCO3 (23-28) mmol/L VBG Total CO2 (24-29) mmol/L VBG O2 Saturation % VBG Base Excess (-2-3) mmol/L Sodium Potassium Chloride Carbon Dioxide Anion Gap BUN Creatinine Est GFR (CKD-EPI 2020) Glucose 98 Calcium Cancelled 8.8 Total Bilirubin Cancelled 1.8 H AST Cancelled ALT Alkaline Phosphatase Troponin I (<or=76) ng/L NT-Pro-B Natriuret Pep (<300) pg/mL Total Protein Albumin COVID-19 Source SARS-CoV-2 (PCR) (Negative) Influenza Type A (PCR) (Negative) Influenza Type B (PCR) (Negative) RSV (PCR) (Negative) Range/Units 04/20/25 04/20/25 04/20/25 18:40 18:40 18:40 WBC (4.4-10.8) 10^3/uL RBC (4.36-5.78) 10^6/uL Hgb (13.5-17.5) g/dL Hct (40.0-50.0) % MCV (80-95) fL MCH (27.0-33.0) pg MCHC (32.0-36.0) % RDW (11.8-14.1) % Plt Count (130-400) 10^3/uL MPV (8.0-11.0) fL Immature Gran % Neutrophils % % Band Neutrophils % % Lymphocytes % % Atypical Lymphs % % Monocytes % % Eosinophils % % Basophils % % Metamyelocytes % Myelocytes % Nucleated RBC % (0.0-0.3) % Absolute Neutrophils (1.2-6.7) 10^3/uL Absolute Lymphocytes (1.2-3.4) 10^3/uL Absolute Monocytes (0.1-0.8) 10^3/uL Absolute Eosinophils (0.0-0.7) 10^3/uL Absolute Basophils (0.0-0.2) 10^3/uL RBC Morphology Polychromasia Hypochromasia Anisocytosis Microcytosis VBG pH (7.31-7.41) VBG pCO2 (41-51) mmHg VBG pO2 mmHg VBG HCO3 (23-28) mmol/L VBG Total CO2 (24-29) mmol/L VBG O2 Saturation % VBG Base Excess (-2-3) mmol/L Sodium Potassium Chloride Carbon Dioxide Anion Gap BUN Creatinine Est GFR (CKD-EPI 2020) Glucose Calcium Total Bilirubin AST 20 ALT Cancelled 51 Alkaline Phosphatase Cancelled 70 Troponin I (<or=76) ng/L 69 NT-Pro-B Natriuret Pep (<300) pg/mL 5033 H Total Protein Cancelled Albumin COVID-19 Source SARS-CoV-2 (PCR) (Negative) Influenza Type A (PCR) (Negative) Influenza Type B (PCR) (Negative) RSV (PCR) (Negative) Range/Units 04/20/25 04/20/25 04/20/25 18:40 18:40 19:03 WBC (4.4-10.8) 10^3/uL RBC (4.36-5.78) 10^6/uL Hgb (13.5-17.5) g/dL Hct (40.0-50.0) % MCV (80-95) fL MCH (27.0-33.0) pg MCHC (32.0-36.0) % RDW (11.8-14.1) % Plt Count (130-400) 10^3/uL MPV (8.0-11.0) fL Immature Gran % Neutrophils % % Band Neutrophils % % Lymphocytes % % Atypical Lymphs % % Monocytes % % Eosinophils % % Basophils % % Metamyelocytes % Myelocytes % Nucleated RBC % (0.0-0.3) % Absolute Neutrophils (1.2-6.7) 10^3/uL Absolute Lymphocytes (1.2-3.4) 10^3/uL Absolute Monocytes (0.1-0.8) 10^3/uL Absolute Eosinophils (0.0-0.7) 10^3/uL Absolute Basophils (0.0-0.2) 10^3/uL RBC Morphology Polychromasia Hypochromasia Anisocytosis Microcytosis VBG pH (7.31-7.41) 7.43 H VBG pCO2 (41-51) mmHg 42 VBG pO2 mmHg 53 VBG HCO3 (23-28) mmol/L 28 VBG Total CO2 (24-29) mmol/L 25 VBG O2 Saturation % 89 VBG Base Excess (-2-3) mmol/L 3 Sodium Potassium Chloride Carbon Dioxide Anion Gap BUN Creatinine Est GFR (CKD-EPI 2020) Glucose Calcium Total Bilirubin AST ALT Alkaline Phosphatase Troponin I (<or=76) ng/L NT-Pro-B Natriuret Pep (<300) pg/mL Total Protein 6.3 L Albumin Cancelled 3.5 COVID-19 Source SARS-CoV-2 (PCR) (Negative) Influenza Type A (PCR) (Negative) Influenza Type B (PCR) (Negative) RSV (PCR) (Negative) Range/Units 04/20/25 04/20/25 04/20/25 19:40 21:38 21:43 WBC (4.4-10.8) 10^3/uL RBC (4.36-5.78) 10^6/uL Hgb (13.5-17.5) g/dL Hct (40.0-50.0) % MCV (80-95) fL MCH (27.0-33.0) pg MCHC (32.0-36.0) % RDW (11.8-14.1) % Plt Count (130-400) 10^3/uL MPV (8.0-11.0) fL Immature Gran % Neutrophils % % Band Neutrophils % % Lymphocytes % % Atypical Lymphs % % Monocytes % % Eosinophils % % Basophils % % Metamyelocytes % Myelocytes % Nucleated RBC % (0.0-0.3) % Absolute Neutrophils (1.2-6.7) 10^3/uL Absolute Lymphocytes (1.2-3.4) 10^3/uL Absolute Monocytes (0.1-0.8) 10^3/uL Absolute Eosinophils (0.0-0.7) 10^3/uL Absolute Basophils (0.0-0.2) 10^3/uL RBC Morphology Polychromasia Hypochromasia Anisocytosis Microcytosis VBG pH (7.31-7.41) VBG pCO2 (41-51) mmHg VBG pO2 mmHg VBG HCO3 (23-28) mmol/L VBG Total CO2 (24-29) mmol/L VBG O2 Saturation % VBG Base Excess (-2-3) mmol/L Sodium Potassium Chloride Carbon Dioxide Anion Gap BUN Creatinine Est GFR (CKD-EPI 2020) Glucose Calcium Total Bilirubin AST ALT Alkaline Phosphatase Troponin I (<or=76) ng/L 77 H* 73 NT-Pro-B Natriuret Pep (<300) pg/mL Total Protein Albumin COVID-19 Source Nasopharynx SARS-CoV-2 (PCR) (Negative) Negative Influenza Type A (PCR) (Negative) Negative Influenza Type B (PCR) (Negative) Negative RSV (PCR) (Negative) Negative Medical Decision Making Emergent evaluation acute respiratory distress. Patient has difficulty lying history at this time secondary to his respiratory distress. He is not have significant hypoxia but did comment on a nonrebreather mask. He is not moving much air at all patient was started on BiPAP which she did not tolerate, so he was transitioned to DuoNebs after 3 DuoNebs this did improve his symptoms. Is noted to be hypertensive as well. Consider flash pulmonary edema, hypertensive urgency. I doubt cardiogenic failure. EKG without acute ischemic change and no change in comparison to prior. Patient has been maintained on 2 L of oxygen, when oxygen comes off he becomes very tachypneic. Even after improvement with bronchodilator treatments, he still not able to speak in full sentences without becoming dyspneic. He was able to walk to the bathroom, but does get very short of breath and fatigue. I suspect that the symptoms may also be with the steroid use. The patient supposed to be on a steroid taper after long-term dexamethasone use, but he does not seem to be able to understand this or tell me how much steroid he is taking or if he is appropriately following taper. Lab work was reviewed, the patient has an elevated white blood cell count which is likely secondary to the chronic steroids. No anemia. VBG does not demonstrate significant abnormality. Renal function is at baseline. His BNP is elevated but improved from prior. Troponins are stable. Aspirin and Lasix were given. Viral testing is negative. Given his significant debility and persistent dyspnea and tachypnea, patient will be admitted to the hospital for further management. Quality:SDOH Health Related Social Needs: Health related social needs problems related to housing/economic circumstances (Z59.89), problems with daily activities (Z73.9) Health related social needs details Pt reports that he does have trouble getting his prescriptions. PFSH All Active Problems (Updated 04/20/25 @ 22:45 by Geremias Camilo) Acute exacerbation of chronic obstructive pulmonary disease (Acute) Hypokalemia (Acute) Steroid dependence (Chronic) Acute exacerbation of CHF (congestive heart failure) (Acute) Lung nodule (Acute) BPH w urinary obs/LUTS (Acute) Microcytic anemia (Chronic) UTI (urinary tract infection) (Acute) Presence of stent in coronary artery in patient with coronary artery disease (Acute) Diastolic CHF (Chronic) Pneumonia (Acute) Medical History (Updated 04/20/25 @ 22:45 by Geremias Camilo) HTN (hypertension) Chronic renal failure Non-STEMI (non-ST elevated myocardial infarction) History of tobacco use Hypospadias Chronic kidney disease, stage 3 Peripheral arterial occlusive disease Constipation Depression Lower urinary tract symptoms (LUTS) Exertional dyspnea Pulmonary hypertension due to left heart disease Coronary artery disease Diastolic heart failure Lower back pain Dysuria Anemia, iron deficiency Heartburn Screening for colon cancer Nocturia Urinary frequency Prediabetes Hypoxemia Multiple pulmonary nodules Lumbar back pain with radiculopathy affecting lower extremity Former smoker Congestion of nasal sinus CKD (chronic kidney disease) CHF (congestive heart failure) Alcoholism in recovery Hypospadias in male COPD (chronic obstructive pulmonary disease) Hyperlipidemia Essential hypertension Surgical History History of phacoemulsification of cataract of both eyes with intraocular lens implantation History of tonsillectomy Family History Father Throat cancer Heart disease Myocardial infarction Brother Heart disease Status post coronary stents Social History Smoking/Tobacco Use Status: Former Tobacco Use Quit Date: 01/11/17 Smoking risk assessment performed?: Yes Alcohol Intake: former Year quit: 2017 Details: Former alcoholic up to 2 cases of gin per month Drug use: Never Substance use type: does not use Housing: house Number of Children: 0 Pets and animals: Yes Pets and animals: dog(s) What is your relationship status?: Panel score (0-1 are the most socially isolated patients): 1 Do you feel safe at home: Yes Do you feel safe in your relationship?: Yes
--- NOTE | 2025-04-20 23:59 | W.PCEDHO ---
Registration Status: Primary Language: Preferred Language: ED Information & Data Chief Complaint RespSymp 04/20/25 22:53 Triage Note Patient complaining of SOB 04/20/25 18:16 for 2 days. Patient used his neb treatment at home. Medical / Surgical History (Last Updated 09/22/23 @ 18:31 by Jamari Hall MD) HTN (hypertension) Chronic renal failure Non-STEMI (non-ST elevated myocardial infarction) History of tobacco use Hypospadias Chronic kidney disease, stage 3 Peripheral arterial occlusive disease Constipation Depression Lower urinary tract symptoms (LUTS) Exertional dyspnea Pulmonary hypertension due to left heart disease Coronary artery disease Diastolic heart failure Lower back pain Dysuria Anemia, iron deficiency Heartburn Screening for colon cancer Nocturia Urinary frequency Prediabetes Hypoxemia Multiple pulmonary nodules Lumbar back pain with radiculopathy affecting lower extremity Former smoker Congestion of nasal sinus CKD (chronic kidney disease) CHF (congestive heart failure) Alcoholism in recovery Hypospadias in male COPD (chronic obstructive pulmonary disease) Hyperlipidemia Essential hypertension (Last Reviewed 07/16/20 @ 12:28 by Cassandra Tejeda DNP) History of phacoemulsification of cataract of both eyes with intraocular lens implantation History of tonsillectomy Most Recent Vital Signs Pulse 75 04/20/25 23:10 Pulse 76 04/20/25 23:10 Respiratory Rate 21 04/20/25 23:01 Respiratory Effort Short of Breath, Labored, Nasal Flaring, Incrsd Work of Breathing 04/20/25 18:30 Respiratory Depth Deep 04/20/25 18:30 Blood Pressure 168/65 H 04/20/25 23:01 Blood Pressure Mean 100 04/20/25 23:01 Pulse Oximetry 94 04/20/25 23:10 Oxygen Delivery Method Non-Rebreather 04/20/25 18:16 Fraction of Inspired Oxygen (FIO2) 24 04/20/25 18:39 Allergies lisinopril Adverse Reaction (Unknown, Unverified 04/20/25 18:57) low BP, worsening CKD codeine phosphate (From Tylenol-Codeine) Adverse Reaction (Unverified 04/20/25 18:57) constipation IV IV Catheter Type [Right Peripheral IV Forearm] IV Catheter Gauge [Right 18 Forearm] Diagnostics 04/20/25 04/20/25 04/20/25 Range/Units 21:43 21:38 19:40 WBC (4.4-10.8) 10^3/uL RBC (4.36-5.78) 10^6/uL Hgb (13.5-17.5) g/dL Hct (40.0-50.0) % MCV (80-95) fL MCH (27.0-33.0) pg MCHC (32.0-36.0) % RDW (11.8-14.1) % Plt Count (130-400) 10^3/uL MPV (8.0-11.0) fL Immature Gran % Neutrophils % % Band Neutrophils % % Lymphocytes % % Atypical Lymphs % % Monocytes % % Eosinophils % % Basophils % % Metamyelocytes % Myelocytes % Nucleated RBC % (0.0-0.3) % Absolute Neutrophils (1.2-6.7) 10^3/uL Absolute Lymphocytes (1.2-3.4) 10^3/uL Absolute Monocytes (0.1-0.8) 10^3/uL Absolute Eosinophils (0.0-0.7) 10^3/uL Absolute Basophils (0.0-0.2) 10^3/uL RBC Morphology Polychromasia Hypochromasia Anisocytosis Microcytosis VBG pH (7.31-7.41) VBG pCO2 (41-51) mmHg VBG pO2 mmHg VBG HCO3 (23-28) mmol/L VBG Total CO2 (24-29) mmol/L VBG O2 Saturation % VBG Base Excess (-2-3) mmol/L Sodium Potassium Chloride Carbon Dioxide Anion Gap BUN Creatinine Est GFR (CKD-EPI 2020) Glucose Calcium Total Bilirubin AST ALT Alkaline Phosphatase Troponin I 73 77 H* (<or=76) ng/L NT-Pro-B Natriuret Pep (<300) pg/mL Total Protein Albumin COVID-19 Source Nasopharynx SARS-CoV-2 (PCR) Negative (Negative) Influenza Type A (PCR) Negative (Negative) Influenza Type B (PCR) Negative (Negative) RSV (PCR) Negative (Negative) 04/20/25 04/20/25 04/20/25 Range/Units 19:03 18:40 18:40 WBC (4.4-10.8) 10^3/uL RBC (4.36-5.78) 10^6/uL Hgb (13.5-17.5) g/dL Hct (40.0-50.0) % MCV (80-95) fL MCH (27.0-33.0) pg MCHC (32.0-36.0) % RDW (11.8-14.1) % Plt Count (130-400) 10^3/uL MPV (8.0-11.0) fL Immature Gran % Neutrophils % % Band Neutrophils % % Lymphocytes % % Atypical Lymphs % % Monocytes % % Eosinophils % % Basophils % % Metamyelocytes % Myelocytes % Nucleated RBC % (0.0-0.3) % Absolute Neutrophils (1.2-6.7) 10^3/uL Absolute Lymphocytes (1.2-3.4) 10^3/uL Absolute Monocytes (0.1-0.8) 10^3/uL Absolute Eosinophils (0.0-0.7) 10^3/uL Absolute Basophils (0.0-0.2) 10^3/uL RBC Morphology Polychromasia Hypochromasia Anisocytosis Microcytosis VBG pH 7.43 H (7.31-7.41) VBG pCO2 42 (41-51) mmHg VBG pO2 53 mmHg VBG HCO3 28 (23-28) mmol/L VBG Total CO2 25 (24-29) mmol/L VBG O2 Saturation 89 % VBG Base Excess 3 (-2-3) mmol/L Sodium Potassium Chloride Carbon Dioxide Anion Gap BUN Creatinine Est GFR (CKD-EPI 2020) Glucose Calcium Total Bilirubin AST ALT Alkaline Phosphatase Troponin I (<or=76) ng/L NT-Pro-B Natriuret Pep (<300) pg/mL Total Protein 6.3 L Albumin 3.5 Cancelled COVID-19 Source SARS-CoV-2 (PCR) (Negative) Influenza Type A (PCR) (Negative) Influenza Type B (PCR) (Negative) RSV (PCR) (Negative) 04/20/25 04/20/25 04/20/25 Range/Units 18:40 18:40 18:40 WBC (4.4-10.8) 10^3/uL RBC (4.36-5.78) 10^6/uL Hgb (13.5-17.5) g/dL Hct (40.0-50.0) % MCV (80-95) fL MCH (27.0-33.0) pg MCHC (32.0-36.0) % RDW (11.8-14.1) % Plt Count (130-400) 10^3/uL MPV (8.0-11.0) fL Immature Gran % Neutrophils % % Band Neutrophils % % Lymphocytes % % Atypical Lymphs % % Monocytes % % Eosinophils % % Basophils % % Metamyelocytes % Myelocytes % Nucleated RBC % (0.0-0.3) % Absolute Neutrophils (1.2-6.7) 10^3/uL Absolute Lymphocytes (1.2-3.4) 10^3/uL Absolute Monocytes (0.1-0.8) 10^3/uL Absolute Eosinophils (0.0-0.7) 10^3/uL Absolute Basophils (0.0-0.2) 10^3/uL RBC Morphology Polychromasia Hypochromasia Anisocytosis Microcytosis VBG pH (7.31-7.41) VBG pCO2 (41-51) mmHg VBG pO2 mmHg VBG HCO3 (23-28) mmol/L VBG Total CO2 (24-29) mmol/L VBG O2 Saturation % VBG Base Excess (-2-3) mmol/L Sodium Potassium Chloride Carbon Dioxide Anion Gap BUN Creatinine Est GFR (CKD-EPI 2020) Glucose Calcium Total Bilirubin AST 20 ALT 51 Cancelled Alkaline Phosphatase 70 Cancelled Troponin I 69 (<or=76) ng/L NT-Pro-B Natriuret Pep 5033 H (<300) pg/mL Total Protein Cancelled Albumin COVID-19 Source SARS-CoV-2 (PCR) (Negative) Influenza Type A (PCR) (Negative) Influenza Type B (PCR) (Negative) RSV (PCR) (Negative) 04/20/25 04/20/25 04/20/25 Range/Units 18:40 18:40 18:40 WBC (4.4-10.8) 10^3/uL RBC (4.36-5.78) 10^6/uL Hgb (13.5-17.5) g/dL Hct (40.0-50.0) % MCV (80-95) fL MCH (27.0-33.0) pg MCHC (32.0-36.0) % RDW (11.8-14.1) % Plt Count (130-400) 10^3/uL MPV (8.0-11.0) fL Immature Gran % Neutrophils % % Band Neutrophils % % Lymphocytes % % Atypical Lymphs % % Monocytes % % Eosinophils % % Basophils % % Metamyelocytes % Myelocytes % Nucleated RBC % (0.0-0.3) % Absolute Neutrophils (1.2-6.7) 10^3/uL Absolute Lymphocytes (1.2-3.4) 10^3/uL Absolute Monocytes (0.1-0.8) 10^3/uL Absolute Eosinophils (0.0-0.7) 10^3/uL Absolute Basophils (0.0-0.2) 10^3/uL RBC Morphology Polychromasia Hypochromasia Anisocytosis Microcytosis VBG pH (7.31-7.41) VBG pCO2 (41-51) mmHg VBG pO2 mmHg VBG HCO3 (23-28) mmol/L VBG Total CO2 (24-29) mmol/L VBG O2 Saturation % VBG Base Excess (-2-3) mmol/L Sodium Potassium Chloride Carbon Dioxide Anion Gap BUN Creatinine Est GFR (CKD-EPI 2020) Glucose 98 Calcium 8.8 Cancelled Total Bilirubin 1.8 H Cancelled AST Cancelled ALT Alkaline Phosphatase Troponin I (<or=76) ng/L NT-Pro-B Natriuret Pep (<300) pg/mL Total Protein Albumin COVID-19 Source SARS-CoV-2 (PCR) (Negative) Influenza Type A (PCR) (Negative) Influenza Type B (PCR) (Negative) RSV (PCR) (Negative) 04/20/25 04/20/25 04/20/25 Range/Units 18:40 18:40 18:40 WBC (4.4-10.8) 10^3/uL RBC (4.36-5.78) 10^6/uL Hgb (13.5-17.5) g/dL Hct (40.0-50.0) % MCV (80-95) fL MCH (27.0-33.0) pg MCHC (32.0-36.0) % RDW (11.8-14.1) % Plt Count (130-400) 10^3/uL MPV (8.0-11.0) fL Immature Gran % Neutrophils % % Band Neutrophils % % Lymphocytes % % Atypical Lymphs % % Monocytes % % Eosinophils % % Basophils % % Metamyelocytes % Myelocytes % Nucleated RBC % (0.0-0.3) % Absolute Neutrophils (1.2-6.7) 10^3/uL Absolute Lymphocytes (1.2-3.4) 10^3/uL Absolute Monocytes (0.1-0.8) 10^3/uL Absolute Eosinophils (0.0-0.7) 10^3/uL Absolute Basophils (0.0-0.2) 10^3/uL RBC Morphology Polychromasia Hypochromasia Anisocytosis Microcytosis VBG pH (7.31-7.41) VBG pCO2 (41-51) mmHg VBG pO2 mmHg VBG HCO3 (23-28) mmol/L VBG Total CO2 (24-29) mmol/L VBG O2 Saturation % VBG Base Excess (-2-3) mmol/L Sodium Potassium Chloride Carbon Dioxide Anion Gap BUN 52 H Creatinine 1.5 H Cancelled Est GFR (CKD-EPI 2020) 49.16 Cancelled Glucose Cancelled Calcium Total Bilirubin AST ALT Alkaline Phosphatase Troponin I (<or=76) ng/L NT-Pro-B Natriuret Pep (<300) pg/mL Total Protein Albumin COVID-19 Source SARS-CoV-2 (PCR) (Negative) Influenza Type A (PCR) (Negative) Influenza Type B (PCR) (Negative) RSV (PCR) (Negative) 04/20/25 04/20/25 04/20/25 Range/Units 18:40 18:40 18:40 WBC (4.4-10.8) 10^3/uL RBC (4.36-5.78) 10^6/uL Hgb (13.5-17.5) g/dL Hct (40.0-50.0) % MCV (80-95) fL MCH (27.0-33.0) pg MCHC (32.0-36.0) % RDW (11.8-14.1) % Plt Count (130-400) 10^3/uL MPV (8.0-11.0) fL Immature Gran % Neutrophils % % Band Neutrophils % % Lymphocytes % % Atypical Lymphs % % Monocytes % % Eosinophils % % Basophils % % Metamyelocytes % Myelocytes % Nucleated RBC % (0.0-0.3) % Absolute Neutrophils (1.2-6.7) 10^3/uL Absolute Lymphocytes (1.2-3.4) 10^3/uL Absolute Monocytes (0.1-0.8) 10^3/uL Absolute Eosinophils (0.0-0.7) 10^3/uL Absolute Basophils (0.0-0.2) 10^3/uL RBC Morphology Polychromasia Hypochromasia Anisocytosis Microcytosis VBG pH (7.31-7.41) VBG pCO2 (41-51) mmHg VBG pO2 mmHg VBG HCO3 (23-28) mmol/L VBG Total CO2 (24-29) mmol/L VBG O2 Saturation % VBG Base Excess (-2-3) mmol/L Sodium Potassium Chloride 104 Carbon Dioxide 30.3 Cancelled Anion Gap 8.7 Cancelled BUN Cancelled Creatinine Est GFR (CKD-EPI 2020) Glucose Calcium Total Bilirubin AST ALT Alkaline Phosphatase Troponin I (<or=76) ng/L NT-Pro-B Natriuret Pep (<300) pg/mL Total Protein Albumin COVID-19 Source SARS-CoV-2 (PCR) (Negative) Influenza Type A (PCR) (Negative) Influenza Type B (PCR) (Negative) RSV (PCR) (Negative) 04/20/25 04/20/25 04/20/25 Range/Units 18:40 18:40 18:40 WBC 18.18 H (4.4-10.8) 10^3/uL RBC 6.98 H (4.36-5.78) 10^6/uL Hgb 14.1 (13.5-17.5) g/dL Hct 44.7 (40.0-50.0) % MCV 64 L (80-95) fL MCH 20.2 L (27.0-33.0) pg MCHC 31.5 L (32.0-36.0) % RDW 23.1 H (11.8-14.1) % Plt Count 169 (130-400) 10^3/uL MPV 9.1 (8.0-11.0) fL Immature Gran % See Differential Neutrophils % 72.0 % Band Neutrophils % 1 % Lymphocytes % 18.0 % Atypical Lymphs % 2 % Monocytes % 5.0 % Eosinophils % 0.0 % Basophils % 0.0 % Metamyelocytes % 1 Myelocytes % 1 Nucleated RBC % 2.0 H (0.0-0.3) % Absolute Neutrophils 13.27 H (1.2-6.7) 10^3/uL Absolute Lymphocytes 3.64 H (1.2-3.4) 10^3/uL Absolute Monocytes 0.91 H (0.1-0.8) 10^3/uL Absolute Eosinophils 0.00 (0.0-0.7) 10^3/uL Absolute Basophils 0.00 (0.0-0.2) 10^3/uL RBC Morphology See Below Polychromasia Present Hypochromasia 1+ Anisocytosis 2+ Microcytosis 2+ VBG pH (7.31-7.41) VBG pCO2 (41-51) mmHg VBG pO2 mmHg VBG HCO3 (23-28) mmol/L VBG Total CO2 (24-29) mmol/L VBG O2 Saturation % VBG Base Excess (-2-3) mmol/L Sodium 143 Cancelled Potassium 4.2 Cancelled Chloride Cancelled Carbon Dioxide Anion Gap BUN Creatinine Est GFR (CKD-EPI 2020) Glucose Calcium Total Bilirubin AST ALT Alkaline Phosphatase Troponin I (<or=76) ng/L NT-Pro-B Natriuret Pep (<300) pg/mL Total Protein Albumin COVID-19 Source SARS-CoV-2 (PCR) (Negative) Influenza Type A (PCR) (Negative) Influenza Type B (PCR) (Negative) RSV (PCR) (Negative) Intake and Output - 24 Hour Total 04/20/25 18:09 thru 04/20/25 18:16 Weight 92.8 kg Falls Risk Assessment History of Falls No History 04/20/25 18:30 Contributing Factors No Factors 04/20/25 18:30 Ambulatory Aids Independent 04/20/25 18:30 Tubes/Lines None 04/20/25 18:30 Gait Evaluation No gait disturbance 04/20/25 18:30 Cognition No cognitive impairment 04/20/25 18:30 Fall Total Score 0 04/20/25 18:30 Level of Risk Standard/Low Risk 04/20/25 18:30 Problems (Last Updated 09/22/23 @ 18:31 by Jamari Hall MD) Acute exacerbation of chronic obstructive pulmonary disease (Acute) Steroid dependence (Chronic) Diastolic CHF (Chronic) Notes 04/20/25 20:55 Nursing Notes by Jourdan Price O2 Sat Ambulatory Trial, Pt maintained 92 -92 % on Room Air while ambulating to the bathroom and back, pt reports increased weakness and work of breathing, FPJ Initialized on 04/20/25 20:55 - END OF NOTE v v v v v v v v v Sending and/or Receiving Nurses: Please use comment section below to note any information pertinent to the patient hand-off not included above. Information / Comments:no questions. Report received from:Jourdan CLEMENS
[2025-04-21] VITALS (11 sets, daily range): BP systolic 134–154; BP diastolic 55–77; PULSE 43–88; RESP 3–22; TEMP 35.1–37; O2SAT 89–96
[2025-04-21] MEDS: cloNIDine 0.1 MG TAB PO ×2 (01:26→20:04)
[2025-04-21] MEDS: Normal Saline Flush 10 ML SYR IVP ×3 (01:27→20:04)
[2025-04-21] MEDS: DOXYCYCLINE 100 MG in Normal Saline 100 ML IVPB ×3 (01:28→23:35)
--- NOTE | 2025-04-21 01:40 | NUR.NOTE ---
Patient refused ned's and lovenox Nursing Note:
[2025-04-21] MEDS: Pantoprazole 40 MG TABCR PO ×2 (02:21→09:05)
[2025-04-21] MEDS: methylPREDNISolone SUCC 125 MG VIAL 80 MG IVP ×2 (04:49→11:57)
[2025-04-21] MEDS: Albuterol/Ipratropium 3 ML UPD VIAL UPD ×2 (05:53→18:16)
[2025-04-21 06:40] LABS: HCT 43.9 % (40.0-50.0); HGB 13.9 g/dL (13.5-17.5); MCH 20.3 pg (27.0-33.0); MCHC 31.7 % (32.0-36.0); MCV 64 fL (80-95); MPV 9.2 fL (8.0-11.0); Platelet Count 167 10^3/uL (130-400); RBC 6.84 10^6/uL (4.36-5.78); RDW 23.1 % (11.8-14.1); WBC 14.25 10^3/uL (4.4-10.8)
[2025-04-21 06:59] LABS: ALT 45 U/L (16-63); AST 15 U/L (15-37); Albumin 3.4 g/dL (3.4-5.0); Alkaline Phosphatase 69 U/L (46-116); Anion Gap 8.1 mmol/L (3-11); BUN 53 mg/dL (7-18); Bilirubin, Total 1.7 mg/dL (0.2-1.0); CO2 29.9 mmol/L (21.0-32.0); Calcium 8.9 mg/dL (8.5-10.1); Chloride 102 mmol/L (98-107); Estimated GFR 49.16 (mL/min/1.73m2); Glucose 143 mg/dL (74-106); Magnesium 2.2 mg/dL (1.8-2.4); Potassium 4.7 mmol/L (3.5-5.1); Sodium 140 mmol/L (136-145); Total Protein 6.5 g/dL (6.4-8.2)
[2025-04-21 07:12] LABS: TSH (W/Ref FT4) 0.55 uIU/mL (0.36-3.74)
[2025-04-21] MEDS: Aspirin E.C. 81 MG TABEC PO (09:04)
[2025-04-21] MEDS: Nicotine 21 MG/24 HR PATCH TD (09:04)
[2025-04-21] MEDS: Finasteride 5 MG TAB PO (09:05)
[2025-04-21] MEDS: Potassium Chloride 20 MEQ TABCR 40 MEQ PO (09:05)
[2025-04-21] MEDS: Tamsulosin 0.4 MG CAPCR 0.8 MG PO (09:05)
[2025-04-21] MEDS: Carvedilol 12.5 MG TAB PO ×2 (09:05→20:04)
[2025-04-21] MEDS: Torsemide 20 MG TAB 30 MG PO (09:05)
[2025-04-21] MEDS: amLODIPine 10 MG TAB PO (09:05)
--- NOTE | 2025-04-21 09:55 | PGE_ITS ---
Date of Service Date of service: 04/21/25 Time of Service: 09:55 Assessment and Plan Assessment and plan (1) Acute exacerbation of chronic obstructive pulmonary disease: Start date: 04/20/25 Status: Acute Assessment and plan: On doxycycline and IV steroid transitioned to oral steroid-dependent and has a poor weaning protocol which may need to be addressed. Aggressive nebulizer treatments Multiple medical problems and failing health with his depression since the loss of his - palliative care consult . (2) Steroid dependence: Status: Chronic Assessment and plan: As above (3) Atrial fibrillation: Status: Chronic Assessment and plan: Appears to be a new onset transition observed on tele around AM today Will continue home Coreg-MVR with beta-scottie Considering anticoagulation if last > 24 hours (4) Diastolic CHF: Status: Chronic Assessment and plan: On oral diuretic outpatient-will old Transition to IV lasix - ongoing LE edema Most likley still exacerbated as the patient left early on 04/14 to 04/15 admission for CHF exacerbation for personal reasons BNP > 5000 on 04/20 This could be the part of the etiology for conversion to atrial fibrillation - does not report a history of parosyxmal atrial fibrillation- but on home dose coreg Continue to monitor labs. Echo report on 04/15/25: Conclusion Technically very difficult and suboptimal study Mild concentric left ventricular hypertrophy. Overall left ventricular systolic function appears within the range of normal. No segmental wall motion abnormalities are identified Right atrium and right ventricle are not well-visualized Normal left atrial size Within the limits of the study, no abnormalities of the aortic or mitral valve are identified (5) Essential hypertension: Assessment and plan: Ongoing outpatient medical therapy adjusting as needed. (6) Chronic kidney disease, stage 3: Assessment and plan: stable with monitor while hospitalized. BMP in AM (7) Coronary artery disease: Assessment and plan: Continue outpatient medical therapy. (8) Hyperlipidemia: Assessment and plan: On home outpatient statin therapy. discussed with Dr. Rangel Subjective Subjective Patient reports: feels better, tolerating liquids well, tolerating a regular diet, voiding w/o difficulty, flatus, bowel movement and shortness of breath (tightness with deep breathing); denies diarrhea, vomiting or fever Exam Narrative Exam Narrative: Constitutional Neuro:alert and oriented X4, non-focal Resp: Unlabored breathing, decreased R base. Left basilar crackles Cardio: regular rhythm, S1, S2, atrial fibrillation on tele and EKG , MVR on coreg GI: Abdomen is not distended, soft and non tender, bowel sounds are present : Negative Costovertebral angle tenderness Integumentary: No skin lesions or rash Extremities:LE's pitting edema strength 5/5 to bilateral lower and upper extremities Psych: RASS 0, congruent mood and normal affect. Objective Last Vital Signs Temp 35.1 C L 04/21/25 07:48 Pulse 67 04/21/25 07:48 Resp 16 04/21/25 07:48 BP 154/77 H 04/21/25 07:48 Pulse Ox 93 04/21/25 07:48 Laboratory Results - last 24 hr 04/20/25 04/20/25 04/20/25 18:40 18:40 18:40 WBC 18.18 H RBC 6.98 H Hgb 14.1 Hct 44.7 MCV 64 L MCH 20.2 L MCHC 31.5 L RDW 23.1 H Plt Count 169 MPV 9.1 Immature Gran % See Differential Neutrophils % 72.0 Band Neutrophils % 1 Lymphocytes % 18.0 Atypical Lymphs % 2 Monocytes % 5.0 Eosinophils % 0.0 Basophils % 0.0 Metamyelocytes % 1 Myelocytes % 1 Nucleated RBC % 2.0 H Absolute Neutrophils 13.27 H Absolute Lymphocytes 3.64 H Absolute Monocytes 0.91 H Absolute Eosinophils 0.00 Absolute Basophils 0.00 RBC Morphology See Below Polychromasia Present Hypochromasia 1+ Anisocytosis 2+ Microcytosis 2+ VBG pH VBG pCO2 VBG pO2 VBG HCO3 VBG Total CO2 VBG O2 Saturation VBG Base Excess Sodium Cancelled 143 Potassium Cancelled 4.2 Chloride Cancelled Carbon Dioxide Anion Gap BUN Creatinine Est GFR (CKD-EPI 2020) Glucose Calcium Magnesium Total Bilirubin AST ALT Alkaline Phosphatase Troponin I NT-Pro-B Natriuret Pep Total Protein Albumin TSH COVID-19 Source SARS-CoV-2 (PCR) Influenza Type A (PCR) Influenza Type B (PCR) RSV (PCR) 04/20/25 04/20/25 04/20/25 18:40 18:40 18:40 WBC RBC Hgb Hct MCV MCH MCHC RDW Plt Count MPV Immature Gran % Neutrophils % Band Neutrophils % Lymphocytes % Atypical Lymphs % Monocytes % Eosinophils % Basophils % Metamyelocytes % Myelocytes % Nucleated RBC % Absolute Neutrophils Absolute Lymphocytes Absolute Monocytes Absolute Eosinophils Absolute Basophils RBC Morphology Polychromasia Hypochromasia Anisocytosis Microcytosis VBG pH VBG pCO2 VBG pO2 VBG HCO3 VBG Total CO2 VBG O2 Saturation VBG Base Excess Sodium Potassium Chloride 104 Carbon Dioxide Cancelled 30.3 Anion Gap Cancelled 8.7 BUN Cancelled Creatinine Est GFR (CKD-EPI 2020) Glucose Calcium Magnesium Total Bilirubin AST ALT Alkaline Phosphatase Troponin I NT-Pro-B Natriuret Pep Total Protein Albumin [facility] COVID-19 Source SARS-CoV-2 (PCR) Influenza Type A (PCR) Influenza Type B (PCR) RSV (PCR) 04/20/25 04/20/25 04/20/25 18:40 18:40 18:40 WBC RBC Hgb Hct MCV MCH MCHC RDW Plt Count MPV Immature Gran % Neutrophils % Band Neutrophils % Lymphocytes % Atypical Lymphs % Monocytes % Eosinophils % Basophils % Metamyelocytes % Myelocytes % Nucleated RBC % Absolute Neutrophils Absolute Lymphocytes Absolute Monocytes Absolute Eosinophils Absolute Basophils RBC Morphology Polychromasia Hypochromasia Anisocytosis Microcytosis VBG pH VBG pCO2 VBG pO2 VBG HCO3 VBG Total CO2 VBG O2 Saturation VBG Base Excess Sodium Potassium Chloride Carbon Dioxide Anion Gap BUN 52 H Creatinine Cancelled 1.5 H Est GFR (CKD-EPI 2020) Cancelled 49.16 Glucose Cancelled Calcium Magnesium Total Bilirubin AST ALT Alkaline Phosphatase Troponin I NT-Pro-B Natriuret Pep Total Protein Album[facility] SARS-[facility]-2 (PCR) Influenza Type A (PCR) Influenza Type B (PCR) RSV (PCR) 04/20/25 04/20/25 04/20/25 18:40 18:40 18:40 WBC RBC Hgb Hct MCV MCH MCHC RDW Plt Count MPV Immature Gran % Neutrophils % Band Neutrophils % Lymphocytes % Atypical Lymphs % Monocytes % Eosinophils % Basophils % Metamyelocytes % Myelocytes % Nucleated RBC % Absolute Neutrophils Absolute Lymphocytes Absolute Monocytes Absolute Eosinophils Absolute Basophils RBC Morphology Polychromasia Hypochromasia Anisocytosis Microcytosis VBG pH VBG pCO2 VBG pO2 VBG HCO3 VBG Total CO2 VBG O2 Saturation VBG Base Excess Sodium Potassium Chloride Carbon Dioxide Anion Gap BUN Creatinine Est GFR (CKD-EPI 2020) Glucose 98 Calcium Cancelled 8.8 Magnesium Total Bilirubin Cancelled 1.8 H AST Cancelled ALT Alkaline Phosphatase Troponin I NT-Pro-B Natriuret Pep Total Protein Albumin [facility] COVID-19 Source SARS-CoV-2 (PCR) Influenza Type A (PCR) Influenza Type B (PCR) RSV (PCR) 04/20/25 04/20/25 04/20/25 18:40 18:40 18:40 WBC RBC Hgb Hct MCV MCH MCHC RDW Plt Count MPV Immature Gran % Neutrophils % Band Neutrophils % Lymphocytes % Atypical Lymphs % Monocytes % Eosinophils % Basophils % Metamyelocytes % Myelocytes % Nucleated RBC % Absolute Neutrophils Absolute Lymphocytes Absolute Monocytes Absolute Eosinophils Absolute Basophils RBC Morphology Polychromasia Hypochromasia Anisocytosis Microcytosis VBG pH VBG pCO2 VBG pO2 VBG HCO3 VBG Total CO2 VBG O2 Saturation VBG Base Excess Sodium Potassium Chloride Carbon Dioxide Anion Gap BUN Creatinine Est GFR (CKD-EPI 2020) Glucose Calcium Magnesium Total Bilirubin AST 20 ALT Cancelled 51 Alkaline Phosphatase Cancelled 70 Troponin I 69 NT-Pro-B Natriuret Pep 5033 H Total Protein Cancelled Albumin [place] [id number] Source SARS-CoV-2 (PCR) Influenza Type A (PCR) Influenza Type B (PCR) RSV (PCR) 04/20/25 04/20/25 04/20/25 18:40 18:40 19:03 WBC RBC Hgb Hct MCV MCH MCHC RDW Plt Count MPV Immature Gran % Neutrophils % Band Neutrophils % Lymphocytes % Atypical Lymphs % Monocytes % Eosinophils % Basophils % Metamyelocytes % Myelocytes % Nucleated RBC % Absolute Neutrophils Absolute Lymphocytes Absolute Monocytes Absolute Eosinophils Absolute Basophils RBC Morphology Polychromasia Hypochromasia Anisocytosis Microcytosis VBG pH 7.43 H VBG pCO2 42 VBG pO2 53 VBG HCO3 28 VBG Total CO2 25 VBG O2 Saturation 89 VBG Base Excess 3 Sodium Potassium Chloride Carbon Dioxide Anion Gap BUN Creatinine Est GFR (CKD-EPI 2020) Glucose Calcium Magnesium Total Bilirubin AST ALT Alkaline Phosphatase Troponin I NT-Pro-B Natriuret Pep Total Protein 6.3 L Albumin Cancelled 3.5 [facility] COVID-19 Source SARS-CoV-2 (PCR) Influenza Type A (PCR) Influenza Type B (PCR) RSV (PCR) 04/20/25 04/20/25 04/20/25 19:40 21:38 21:43 WBC RBC Hgb Hct MCV MCH MCHC RDW Plt Count MPV Immature Gran % Neutrophils % Band Neutrophils % Lymphocytes % Atypical Lymphs % Monocytes % Eosinophils % Basophils % Metamyelocytes % Myelocytes % Nucleated RBC % Absolute Neutrophils Absolute Lymphocytes Absolute Monocytes Absolute Eosinophils Absolute Basophils RBC Morphology Polychromasia Hypochromasia Anisocytosis Microcytosis VBG pH VBG pCO2 VBG pO2 VBG HCO3 VBG Total CO2 VBG O2 Saturation VBG Base Excess Sodium Potassium Chloride Carbon Dioxide Anion Gap BUN Creatinine Est GFR (CKD-EPI 2020) Glucose Calcium Magnesium Total Bilirubin AST ALT Alkaline Phosphatase Troponin I 77 H* 73 NT-Pro-B Natriuret Pep Total Protein Albumin TSH COVID-19 Source Nasopharynx SARS-CoV-2 (PCR) Negative Influenza Type A (PCR) Negative Influenza Type B (PCR) Negative RSV (PCR) Negative 04/21/25 06:27 WBC 14.25 H RBC 6.84 H Hgb 13.9 Hct 43.9 MCV 64 L MCH 20.3 L MCHC 31.7 L RDW 23.1 H Plt Count 167 MPV 9.2 Immature Gran % Neutrophils % Band Neutrophils % Lymphocytes % Atypical Lymphs % Monocytes % Eosinophils % Basophils % Metamyelocytes % Myelocytes % Nucleated RBC % Absolute Neutrophils Absolute Lymphocytes Absolute Monocytes Absolute Eosinophils Absolute Basophils RBC Morphology Polychromasia Hypochromasia Anisocytosis Microcytosis VBG pH VBG pCO2 VBG pO2 VBG HCO3 VBG Total CO2 VBG O2 Saturation VBG Base Excess Sodium 140 Potassium 4.7 Chloride 102 Carbon Dioxide 29.9 Anion Gap 8.1 BUN 53 H Creatinine 1.5 H Est GFR (CKD-EPI 2020) 49.16 Glucose 143 H Calcium 8.9 Magnesium 2.2 Total Bilirubin 1.7 H AST 15 ALT 45 Alkaline Phosphatase 69 Troponin I NT-Pro-B Natriuret Pep Total Protein 6.5 Albumin 3.4 TSH 0.55 COVID-19 Source SARS-CoV-2 (PCR) Influenza Type A (PCR) Influenza Type B (PCR) RSV (PCR) Time Spent with Patient Time Spent with Patient: >50 minutes Time was spent: preparing to see the patient(eg.review tests), obtaining and/or reviewing separately otained hiistory, ordering medications,tests, procedures, referring, communicating with other health skin care consultant, indepentently interpreting results, counseling the patient and care coordination
[2025-04-21] MEDS: Albuterol 2.5 MG/3 ML INH SOLN VIAL UPD (10:15)
--- NOTE | 2025-04-21 11:16 | PDOC.CMIN ---
Date of service: 04/21/25 Time of Service: 11:16 Care Management Initial Assmt Initial Assessment Reason for Hospitalization: COPD Functional Status/Living Situation Patient Presentation: Elroy lives alone in a single family home in [place]. He is and has no children. His Luma last fall just before after a long illness. His only close relative is his brother Cheko who lives in [place], but he does have neighbors who are supportive. Elroy uses supplemental nasal oxygen at 2L/min at home as needed. He receives Meals on Wheels but no other community services. He is independent with ADLs but does not drive. Elroy was recently discharged after being treated for CHF. He had home health ordered however he never received the services. In review, it appears that the referral may have gone to the wrong agency. Elroy lives in [place] which is covered by [facility], not [facility]. He will have a PT consult on this admission and new orders will be sent to [facility]. Town of Residence: [place] Resides with: Alone Significant Other/Family: Out of area (one brother in [place]) Natural Supports: friends Employment Status: Retired Instrumental Activities of Daily Living (ADLs): Independent Medications Medication Management: No Issues/Barriers identified Advance Directives Advance Directives: Do you have an Advance Directive: N 09/26/16 10:14 AD On File at [facility]: N 06/06/16 17:47 Date Asked 04/20/25 04/20/25 18:36 AD Date Reviewed COLST On File at [facility] COLST Date Scanned Code Status Resuscitation Status Full Code Portal Pt does not currently have a portal and education provided: Yes Insurance Coverage/Financial Issues Insurance: [facility] Medicare Replacement Care Team Visit Care Team Role Provider Type Kat Patton APRN MD [facility] STAFF PHYSICIAN Everardo Malloy MD Primary Care Provider NON-[facility] STAFF PHYSICIAN Scotty Tang MD Emergency Provider [facility] STAFF PHYSICIAN Geremias Camilo Admit Provider NON-[facility] STAFF PHYSICIAN Attending Provider Discharge Potential Discharge Needs: PT Evaluation Anticipated Barriers to Discharge: None Identified Patient/Family Education Needs: Review discharge instructions, discuss Ask Me Three Transportation: Private vehicle Plan: Anticipate Elroy will be discharged home with new home health services when medically cleared. He will follow up with his community providers and plan of care and transport with friends. CM will follow and continue to support discharge planning. Social Determinants of Health Screening Social Determinants of health last assessed in clinic: 04/21/25 Will the Patient Participate in the Screening?: Yes Do you worry about having a steady place to live?: yes What is your living situation today?: I have housing today, but am worried about losing it Problems where you live: no known problems In the past 12 months, have you had to go without electric, gas, oil or water in your home?: no 1. Within the past 12 months, we worried whether our food would run out before we got money to buy more.: Never true 2. Within the past 12 months, the food we bought just didn't last and we didn't have money to get more.: Never true Has lack of transportation kept you from medical appointments or from doing things needed for daily living?: yes Has anyone in your life made you feel unsafe or unsupported?: no How hard is it for you to pay for the very basics like food, housing, medical care, and heating? Would you say it is:: Somewhat hard Do you want help finding or keeping work or a job?: I do not need or want help If for any reason you need help with day-to-day activities such as bathing, preparing meals, shopping, managing finances, etc., do you get the help you need?: I don’t need any help How often do you feel lonely or isolated from those around you?: Rarely Do you speak a language other than Bermudian at home?: Yes Health Related Social Needs Health related social needs: housing instability, housed, with risk of homelessness (Z59.811), transportation insecurity (Z59.82), problems related to housing/economic circumstances (Z59.89), feeling lonely/isolated (Z60.8) and education (Z55.6) Health related social needs details: not worried about housing PFSH All Active Problems (Updated 04/21/25 @ 12:07 by Kat Patton APRN) Atrial fibrillation (Chronic) Acute exacerbation of chronic obstructive pulmonary disease (Acute) Hypokalemia (Acute) Steroid dependence (Chronic) Acute exacerbation of CHF (congestive heart failure) (Acute) Lung nodule (Acute) BPH w urinary obs/LUTS (Acute) Microcytic anemia (Chronic) UTI (urinary tract infection) (Acute) Presence of stent in coronary artery in patient with coronary artery disease (Acute) Diastolic CHF (Chronic) Pneumonia (Acute) Medical History (Updated 04/21/25 @ 12:07 by Kat Patton APRN) HTN (hypertension) Chronic renal failure Non-STEMI (non-ST elevated myocardial infarction) History of tobacco use Hypospadias Chronic kidney disease, stage 3 Peripheral arterial occlusive disease Constipation Depression Lower urinary tract symptoms (LUTS) Exertional dyspnea Pulmonary hypertension due to left heart disease Coronary artery disease Diastolic heart failure Lower back pain Dysuria Anemia, iron deficiency Heartburn Screening for colon cancer Nocturia Urinary frequency Prediabetes Hypoxemia Multiple pulmonary nodules Lumbar back pain with radiculopathy affecting lower extremity Former smoker Congestion of nasal sinus CKD (chronic kidney disease) CHF (congestive heart failure) Alcoholism in recovery Hypospadias in male COPD (chronic obstructive pulmonary disease) Hyperlipidemia Essential hypertension Surgical History History of phacoemulsification of cataract of both eyes with intraocular lens implantation History of tonsillectomy Family History Father Throat cancer Heart disease Myocardial infarction Brother Heart disease Status post coronary stents Social History Smoking/Tobacco Use Status: Former Tobacco Use Quit Date: 01/11/17 Smoking risk assessment performed?: Yes Alcohol Intake: former Year quit: 2016 Details: Former alcoholic up to 2 cases of gin per month Drug use: Never Substance use type: does not use Housing: house Number of Children: 0 Pets and animals: Yes Pets and animals: dog(s) What is your relationship status?: Panel score (0-1 are the most socially isolated patients): 1 Do you feel safe at home: Yes Do you feel safe in your relationship?: Yes
--- NOTE | 2025-04-21 11:45 | RT.EKG_ITS ---
APPROVED REPORT Exam: Resting ECG Reason for Exam: Arrhythmia-SR to atrisl -fibrillation Patient Location: I HR:100 bpm ECG Measurements Heart Rate 100 AXIS MS [id number] P [id number] QRSd 110 QRS 24 QT 372 T 150 QTc 480 Conclusion Atrial flutter with predominant 3:1 AV block...A-rate 294, multiple Ps Probable LVH with secondary repol abnrm...multiple LVH criteria Borderline prolonged QT interval...QTc >475mS
[2025-04-21] MEDS: Furosemide 40 MG/4 ML VIAL IVP ×2 (12:00→18:01)
[2025-04-21] MEDS: predniSONE 20 MG TAB 40 MG PO (13:34)
[2025-04-21] MEDS: LORazepam 0.5 MG TAB PO (15:22)
[2025-04-21] MEDS: Rosuvastatin 20 MG TAB 40 MG PO (20:03)
[2025-04-22] VITALS (14 sets, daily range): BP systolic 128–174; BP diastolic 59–67; PULSE 48–135; RESP 3–22; TEMP 36–36.9; O2SAT 92–95
[2025-04-22] MEDS: Albuterol/Ipratropium 3 ML UPD VIAL UPD ×6 (00:47→23:40)
[2025-04-22 07:16] LABS: HCT 37.8 % (40.0-50.0); HGB 12.4 g/dL (13.5-17.5); MCH 20.6 pg (27.0-33.0); MCHC 32.8 % (32.0-36.0); MCV 63 fL (80-95); Platelet Count 154 10^3/uL (130-400); RDW 22.2 % (11.8-14.1); RDW-SD 43.7 fL; WBC 12.55 10^3/uL (4.4-10.8)
[2025-04-22 07:45] LABS: ALT 39 U/L (16-63); AST 14 U/L (15-37); Albumin 2.8 g/dL (3.4-5.0); Alkaline Phosphatase 62 U/L (46-116); Anion Gap 10.1 mmol/L (3-11); BUN 61 mg/dL (7-18); Bilirubin, Total 1.1 mg/dL (0.2-1.0); CO2 26.9 mmol/L (21.0-32.0); Calcium 8.8 mg/dL (8.5-10.1); Chloride 105 mmol/L (98-107); Estimated GFR 58.37 (mL/min/1.73m2); Glucose 154 mg/dL (74-106); Sodium 142 mmol/L (136-145); Total Protein 5.5 g/dL (6.4-8.2)
[2025-04-22 07:53] LABS: Potassium 2.9 mmol/L (3.5-5.1)
[2025-04-22] MEDS: amLODIPine 10 MG TAB PO (08:06)
[2025-04-22] MEDS: Finasteride 5 MG TAB PO (08:06)
[2025-04-22] MEDS: Aspirin E.C. 81 MG TABEC PO (08:06)
[2025-04-22] MEDS: predniSONE 20 MG TAB 40 MG PO (08:06)
[2025-04-22] MEDS: Potassium Chloride 20 MEQ TABCR 40 MEQ PO ×3 (08:06→14:36)
[2025-04-22] MEDS: Pantoprazole 40 MG TABCR PO ×2 (08:06→19:53)
[2025-04-22] MEDS: Tamsulosin 0.4 MG CAPCR 0.8 MG PO (08:06)
[2025-04-22] MEDS: Carvedilol 12.5 MG TAB PO ×2 (08:06→19:52)
[2025-04-22] MEDS: Normal Saline Flush 10 ML SYR IVP ×2 (08:08→19:53)
[2025-04-22] MEDS: Nicotine 21 MG/24 HR PATCH TD (08:08)
[2025-04-22 09:41] LABS: RBC 6.01 10^6/uL (4.36-5.78)
[2025-04-22] MEDS: Apixaban 5 MG TAB PO ×2 (10:37→19:53)
[2025-04-22] MEDS: POTASSIUM CHLORIDE 20 MEQ/100 ML BAG 50 MEQ IV_INF (10:37)
[2025-04-22] MEDS: MYLANTA 30 ML, LIDOCAINE 2% VISCOUS UD 15 ML PO (12:25)
[2025-04-22] MEDS: DOXYCYCLINE 100 MG in Normal Saline 100 ML IVPB (12:26)
[2025-04-22] MEDS: Famotidine 20 MG TAB PO (12:27)
--- NOTE | 2025-04-22 14:09 | W.PM.PROGNOT ---
Date of Service Date of service: 04/22/25 Time of Service: 14:09 Assessment and Plan Assessment and plan (1) Acute exacerbation of chronic obstructive pulmonary disease: Start date: 04/20/25 Status: Acute Assessment and plan: On doxycycline and steroid both transitioned to oral steroid-dependent and has a poor weaning protocol which may need to be addressed. Aggressive nebulizer treatments Chronic Rx had been stopped when on hospice - will resume - does not want hospice anymore Multiple medical problems and failing health with his depression since the loss of his - palliative care consult still pending . (2) Steroid dependence: Status: Chronic Assessment and plan: As above as per hospice management ENGAGEMENT MANAGER , but the patient is not interested to pursue hospice stating they were not doing anything with my meds (3) Atrial fibrillation: Status: Chronic Assessment and plan: Appears to be a new onset transition observed on tele around AM today Will continue home Coreg-MVR with beta-scottie Eliquis started - Script sent to pharmacy Out patient cardiology consultation as per PCP (4) Diastolic CHF: Status: Chronic Assessment and plan: On oral diuretic outpatient-will old IV lasix - ongoing LE edema- Transitioned to oral home dose torsemide Was likely still exacerbated as the patient stated that he left too early on 04/14 to 04/15 admission for CHF exacerbation for personal reasons BNP > 5000 on 04/20 This could be the part of the etiology for conversion to atrial fibrillation with initial RVR - does not report a history of parosyxmal atrial fibrillation- but on home dose Coreg Continue to monitor labs. Echo report on 04/15/25:- will not repeat Conclusion Technically very difficult and suboptimal study Mild concentric left ventricular hypertrophy. Overall left ventricular systolic function appears within the range of normal. No segmental wall motion abnormalities are identified Right atrium and right ventricle are not well-visualized Normal left atrial size Within the limits of the study, no abnormalities of the aortic or mitral valve are identified (5) Essential hypertension: Assessment and plan: Continue outpatient medical therapy adjusting as needed. (6) Chronic kidney disease, stage 3: Assessment and plan: Cr is stable with monitor while hospitalized. BMP in AM (7) Coronary artery disease: Assessment and plan: Continue outpatient medical therapy. (8) Hyperlipidemia: Assessment and plan: On home outpatient statin therapy. (9) GERD (gastroesophageal reflux disease): Status: Chronic Assessment and plan: Mid- sternal discomfort described as heart burn- s/p oral potassium. The patient has a Hx of GERD and is on PPI. Does not present as his previous ACS/ME presentation. Resolving with H2 and acid buffer PRN Mylanta (10) Hypokalemia: Status: Acute Assessment and plan: K 2.9 , unable to tolerate IV supplementation Oral potassium ordered BMP in AM (11) Discharge planning issues: Status: Resolved Assessment and plan: Increased weakness during stay PT consult still pending If not seen by palliative inpatient -consider outpatient referral as per PCP discussed with Dr. Elizabeth Subjective Subjective Patient reports: feels better, tolerating liquids well, tolerating a regular diet, voiding w/o difficulty, flatus, no bowel movement, shortness of breath and other (heartburn- resolving w oral meds - not ACS symptomatology); denies diarrhea, vomiting or fever Exam Narrative Exam Narrative: Constitutional Neuro:alert and oriented X4, non-focal Resp: Labored breathing, decreased R base. Left basilar fine crackles Cardio: regular rhythm, S1, S2, atrial fibrillation on tele and EKG , MVR on coreg GI: Abdomen is not distended, soft and non tender, bowel sounds are present Integumentary: No skin lesions or rash Extremities:LE's pitting edema strength 5/5 to bilateral lower and upper extremities Psych: RASS 0, congruent mood and normal affect. Objective Last Vital Signs Temp 36.4 C L 04/22/25 13:49 Pulse 50 L 04/22/25 13:49 Resp 14 04/22/25 13:49 BP 138/59 L 04/22/25 13:49 Pulse Ox 94 04/22/25 13:49 Laboratory Results - last 24 hr 04/22/25 06:15 WBC 12.55 H RBC 6.01 H Hgb 12.4 L Hct 37.8 L MCV 63 L MCH 20.6 L MCHC 32.8 RDW 22.2 H Plt Count 154 MPV Sodium 142 Potassium 2.9 L* D Chloride 105 Carbon Dioxide 26.9 Anion Gap 10.1 BUN 61 H Creatinine 1.3 Est GFR (CKD-EPI 2020) 58.37 Glucose 154 H Calcium 8.8 Magnesium 2.0 Total Bilirubin 1.1 H AST 14 L ALT 39 Alkaline Phosphatase 62 Total Protein 5.5 L Albumin 2.8 L Time Spent with Patient Time Spent with Patient: >50 minutes Time was spent: preparing to see the patient(eg.review tests), obtaining and/or reviewing separately otained hiistory, ordering medications,tests, procedures, referring, communicating with other health rn home care, indepentently interpreting results, counseling the patient and care coordination
[2025-04-22] MEDS: Polyethylene Glycol 3350 17 GM PACKET PO ×2 (14:35→19:51)
[2025-04-22] MEDS: Albuterol 2.5 MG/3 ML INH SOLN VIAL UPD (15:24)
--- NOTE | 2025-04-22 16:17 | PT.INIE ---
PT Notes Visit Reasons: Exacerbation of COPD with hypoxic respiratory fail Inpatient Physical Therapy Evaluation Date: 04/22/2025 Referring Doctor: Kat Patton NP PT Orders: PT CONSULT: Safety Consult for Discharge Precautions: [] Patient Profile/Admitting Diagnosis: Paul is 74yo male presented to the ED from home with dyspnea. Pt admitted for exacerbation of COPD. Pt treated with IV solu-Medrol and nebulizers. PT Consult placed. PMHX: Acute exacerbation of chronic obstructive pulmonary disease (Acute) Hypokalemia (Acute) Steroid dependence (Chronic) Acute exacerbation of CHF (congestive heart failure) (Acute) Lung nodule (Acute) BPH w urinary obs/LUTS (Acute) Microcytic anemia (Chronic) UTI (urinary tract infection) (Acute) Presence of stent in coronary artery in patient with coronary artery disease (Acute) Diastolic CHF (Chronic) Pneumonia (Acute) Medical History (Updated 04/20/25 @ 22:45 by Geremias Camilo) HTN (hypertension) Chronic renal failure Non-STEMI (non-ST elevated myocardial infarction) History of tobacco use Hypospadias Chronic kidney disease, stage 3 Peripheral arterial occlusive disease Constipation Depression Lower urinary tract symptoms (LUTS) Exertional dyspnea Pulmonary hypertension due to left heart disease Coronary artery disease Diastolic heart failure Lower back pain Dysuria Anemia, iron deficiency Heartburn Screening for colon cancer Nocturia Urinary frequency Prediabetes Hypoxemia Multiple pulmonary nodules Lumbar back pain with radiculopathy affecting lower extremity Former smoker Congestion of nasal sinus CKD (chronic kidney disease) CHF (congestive heart failure) Alcoholism in recovery Hypospadias in male COPD (chronic obstructive pulmonary disease) Hyperlipidemia Essential hypertension Surgical History History of phacoemulsification of cataract of both eyes with intraocular lens implantation History of tonsillectomy Social History/Home Situation:Pt resides in home alone with his dog and cat. His paced aware in Sep 2024. Pt has ramp to enter through garage. Current Functional Limitations: impaired ambulation, impaired ADL, inability to prepare meals d/t limited stand tolerance, difficulty caring for his pets. Equipment Owned/DME: He reports he has a walker at home that was his wifes. Subjective: He states he was doing well until February of this year. He reports progressive inability to get food prepared for himself including making coffee and clean his home. He states he can't take his dog outside anymore. He says sometimes friends drop off food for him but he can't get to the kitchen to get it because he is too short of breath.Pt expressing he does not feel safe going home at this level as he is not able to care for himself. Objective: [] General Observation: ill appearing male seated at EOB with increased RR, teary at times. Mental Status: Alert and Ox4, cooperative, weepy, upset and anxious. Agreeable to participate in PT session. Pain: mid sternal pain after performing step turn transfer and after ambulation with FWW Vital Signs: sat 94% on RA , pulse 135 with ambulation per pulse ox, also monitored via telemetry throughout. Nursing noted ROM: Right Upper Extremity: WFL Left Upper Extremity: WFL Right Lower Extremity: WFL Left Lower Extremity: WFL Strength: Right Upper Extremity: Grossly greater than equal to 3/5 no resistance Left Upper Extremity: Grossly greater than equal to 3/5 no resistance Right Lower Extremity: Hip flexors 3 -/5, extensors 3/5, abductors 3 -/5, knee extension 3/5, knee flexion 3 -/5, ankle 3/5 Left Lower Extremity: Hip flexors 3 -/5, extensors 3/5, abductors 3 -/5, knee extension 3/5, knee flexion 3 -/5, ankle 3/5 Sensation: Intact Bed Mobility/Transfers: [] Supine to sit independent Rolling independent Sit to stand standby assist Bed to chair contact-guard assist with and without FWW Gait: With FWW contact-guard assist 18 feet increased weightbearing through bilateral upper extremities reduced step length poor foot clearance bilaterally knee instability noted bilaterally. MONTIEL Balance: [] Static Sitting: Normal Dynamic Sitting: Good Static Standing: Fair Dynamic Standing: Poor Special Tests: Mobility Limitations Standardized Measure [facility] AM-PAC 6 clicks Basic Mobility Inpatient Short Form: Raw Score: 16 CMS Score: 54.16% Informed Consent/Education: Patient instructed in purpose of PT consult and plan of care. Assessment: Patient is a 74year old male referred to physical therapy services with the diagnosis of COPD exacerbation. Patient demonstrates significant impairments in ability to care for self including preparing meals and performing ADLs at current level of function due to dyspnea. patient presents with clinical signs and symptoms consistent with admitting diagnosis, as demonstrated by the following impairment level findings: 1. Decrease strength/motor control BUE/BLE major muscle groups 2. Dyspnea on exertion 3. Reports of midsternal pain with ambulation and transfers 4. Impaired standing balance 5. Impaired functional activity tolerance and standing and sitting 6. Impaired breath control at rest and with activity 7. Gait instability Impairments are contributing to the following functional limitations: 1. AMPAC score of 16 indicating at risk for readmission if return to community 2. Decline in transfer skills 3. Difficulty performing ambulation without assistance 4. Increased risk for falls 5. Increased time to complete ADLs/mobility tasks Patient is assessed as a Low 36542 complexity based on the following: History: 74-year-old male with complicated past medical history and comorbidities Examination: [] As outlined above Presentation: Evolving Decision Making: Low Goals: Goals X1 week 1. Sit-Stand independent with or without assistive device 2.. Stand-Sit independent with or without assistive device 3. Bed-Chair independent with or without assistive device 4. Chair-Bed independent with or without assistive device 5. Gait: Ambulate 50 feet x 2 independently without s/s of increased shortness of breath Plan of Care/Treatment Plan: 1-2x/day, 7 days/week x 1 week. Plan of care has been reviewed with the BOOK SEWING MACHINE OPERATOR providing the service under Physical Therapy direction. Initiate Physical Therapy intervention for strengthening, bed mobility, transfers, gait, stairs, balance training, use of assistive device. DISCHARGE RECOMMENDATIONS: [] [] Home with no services [] [] Home with services [specify] [] Home with outpatient PT [] [X] SNF for continued rehabilitation to improve strength functional mobility prior to discharge to home [] Custodial Care [] [x] SNF versus LTC based on ability to participate and progress TREATMENT CODE/TIME: 66492, [id number]/[id number]
[2025-04-22] MEDS: Docusate Sodium 100 MG CAP PO ×2 (16:30→19:52)
[2025-04-22] MEDS: Furosemide 40 MG/4 ML VIAL IVP (16:30)
[2025-04-22] MEDS: Glycerin Adult Suppository JAR 1 SUPP PR (17:51)
[2025-04-22] MEDS: LORazepam 0.5 MG TAB PO ×2 (17:52→23:44)
--- NOTE | 2025-04-22 18:43 | PDOC.CMPRO ---
Date of service: 04/22/25 Time of Service: 18:43 Care Management Progress Note Progress Note Text Progress Note Text: Paul was sitting up on the side of the bed, clearly having difficulty breathing when CM met with him. RT was in the room and had just given him a nebulizer treatment. While Paul's oxygen saturation has been in the 90s on room air, he is still using accessory muscles to breath and is using a tripod position. A PT evaluation was completed today and SNF for short term rehab was recommended. An initial conversation indicated that [facility] is willing to pursue that option. As the decision was made late in the day after hours, referrals will be sent tomorrow. Discharge Anticipated Barriers to Discharge: Bed availability Patient/Family Education Needs: Review discharge instructions, discuss Ask Me Three Transportation: RCT RCT Transportation: Private vechicle Plan: Anticipate Paul will transfer to a SNF for short term rehab prior to returning home. Referrals will be sent in the morning once Paul identifies the facilities he would prefer. CM will follow an continue to support discharge planning endeavors.. Social Determinants of Health Screening Social Determinants of health last assessed in clinic: 04/22/25 Will the Patient Participate in the Screening?: Yes Do you worry about having a steady place to live?: yes What is your living situation today?: I have housing today, but am worried about losing it Problems where you live: no known problems In the past 12 months, have you had to go without electric, gas, oil or water in your home?: no 1. Within the past 12 months, we worried whether our food would run out before we got money to buy more.: Never true 2. Within the past 12 months, the food we bought just didn't last and we didn't have money to get more.: Never true Has lack of transportation kept you from medical appointments or from doing things needed for daily living?: yes Has anyone in your life made you feel unsafe or unsupported?: no How hard is it for you to pay for the very basics like food, housing, medical care, and heating? Would you say it is:: Somewhat hard Do you want help finding or keeping work or a job?: I do not need or want help If for any reason you need help with day-to-day activities such as bathing, preparing meals, shopping, managing finances, etc., do you get the help you need?: I don’t need any help How often do you feel lonely or isolated from those around you?: Rarely Do you speak a language other than Icelandic at home?: Yes Health Related Social Needs Health related social needs: housing instability, housed, with risk of homelessness (Z59.811), transportation insecurity (Z59.82), problems related to housing/economic circumstances (Z59.89), feeling lonely/isolated (Z60.8) and education (Z55.6) Health related social needs details: not worried about housing
[2025-04-22] MEDS: Budesonide/Formoterol 80/4.5 6.9 GM 60 PUFF INH IH (19:42)
[2025-04-22] MEDS: Rosuvastatin 20 MG TAB 40 MG PO (19:52)
[2025-04-22] MEDS: cloNIDine 0.1 MG TAB PO (19:53)
[2025-04-22] MEDS: Doxycycline Hyclate 100 MG CAP PO (21:23)
[2025-04-22] MEDS: Mylanta Suspension 30 ML CUP PO (23:45)
[2025-04-23] VITALS (15 sets, daily range): BP systolic 102–178; BP diastolic 65–85; PULSE 50–80; RESP 2–23; TEMP 35.6–36.5; O2SAT 90–94
[2025-04-23] MEDS: Albuterol/Ipratropium 3 ML UPD VIAL UPD ×6 (04:07→23:11)
[2025-04-23 06:32] LABS: HCT 39.4 % (40.0-50.0); HGB 12.7 g/dL (13.5-17.5); MCH 20.4 pg (27.0-33.0); MCHC 32.2 % (32.0-36.0); MCV 63 fL (80-95); MPV 9.3 fL (8.0-11.0); Platelet Count 150 10^3/uL (130-400); RBC 6.22 10^6/uL (4.36-5.78); RDW 22.7 % (11.8-14.1); RDW-SD 45.1 fL; WBC 11.67 10^3/uL (4.4-10.8)
[2025-04-23 07:25] LABS: ALT 67 U/L (16-63); AST 24 U/L (15-37); Alkaline Phosphatase 65 U/L (46-116); BUN 56 mg/dL (7-18); Bilirubin, Total 1.4 mg/dL (0.2-1.0); CO2 26.7 mmol/L (21.0-32.0); Calcium 8.8 mg/dL (8.5-10.1); Chloride 106 mmol/L (98-107); Estimated GFR 71.32 (mL/min/1.73m2); Glucose 107 mg/dL (74-106); Magnesium 2.2 mg/dL (1.8-2.4); Total Protein 5.7 g/dL (6.4-8.2)
[2025-04-23 07:33] LABS: Anion Gap 8.3 mmol/L (3-11); Sodium 141 mmol/L (136-145)
[2025-04-23 07:34] LABS: Potassium 4.1 mmol/L (3.5-5.1)
[2025-04-23] MEDS: MORPHine 2 MG/ML SYR IVP ×3 (08:24→21:38)
[2025-04-23] MEDS: Carvedilol 12.5 MG TAB PO ×2 (08:39→20:46)
[2025-04-23] MEDS: Potassium Chloride 20 MEQ TABCR 40 MEQ PO (08:39)
[2025-04-23] MEDS: Apixaban 5 MG TAB PO ×2 (08:39→20:46)
[2025-04-23] MEDS: Finasteride 5 MG TAB PO (08:39)
[2025-04-23] MEDS: Nicotine 21 MG/24 HR PATCH TD (08:39)
[2025-04-23] MEDS: Polyethylene Glycol 3350 17 GM PACKET PO (08:39)
[2025-04-23] MEDS: amLODIPine 10 MG TAB PO (08:39)
[2025-04-23] MEDS: Doxycycline Hyclate 100 MG CAP PO ×2 (08:39→20:46)
[2025-04-23] MEDS: Pantoprazole 40 MG TABCR PO ×2 (08:40→20:45)
[2025-04-23] MEDS: Tamsulosin 0.4 MG CAPCR 0.8 MG PO (08:40)
[2025-04-23] MEDS: predniSONE 20 MG TAB 40 MG PO (08:40)
[2025-04-23] MEDS: Aspirin E.C. 81 MG TABEC PO (08:40)
[2025-04-23] MEDS: Docusate Sodium 100 MG CAP PO ×2 (08:40→20:46)
[2025-04-23] MEDS: Normal Saline Flush 10 ML SYR IVP ×2 (08:40→20:46)
[2025-04-23] MEDS: Tiotropium Bromide-Respimat 10 PUFF INH IH (08:48)
[2025-04-23] MEDS: Torsemide 10 MG TAB 30 MG PO (08:48)
[2025-04-23] MEDS: Budesonide/Formoterol 80/4.5 6.9 GM 60 PUFF INH IH ×2 (08:48→19:45)
--- NOTE | 2025-04-23 09:24 | PDOC.CMPRO ---
Date of service: 04/23/25 Time of Service: 09:24 Care Management Progress Note Progress Note Text Progress Note Text: Paul was sitting on the side of the bed when CM met with him. He stated he was not feeling well at the moment as his nebulizer treatment got a bit delayed and he was a bit short of breath. Yesterday CM sent referrals to [facility] and [facility] for short term rehab. [facility] has made a bed offer and Paul has accepted the offer. He will likely transfer tomorrow. This afternoon Ange Carnes, Palliative Care provider, met with Paul and completed a Healthcare Agent form. Paul named his brother Cheko as his agent. He shared that he enjoyed talking with Ange and feels that she will be a good source of support for him. Discharge Potential Discharge Needs: Other (possible SNF) Anticipated Barriers to Discharge: Bed availability Patient/Family Education Needs: Review discharge instructions, discuss Ask Me Three Transportation: RCT Plan: Anticipate Paul will transfer to a SNF for short term rehab prior to returning home. Referrals will be sent in the morning once Paul identifies the facilities he would prefer. CM will follow an continue to support discharge planning endeavors.. Social Determinants of Health Screening Social Determinants of health last assessed in clinic: 04/23/25 Will the Patient Participate in the Screening?: Yes Do you worry about having a steady place to live?: yes What is your living situation today?: I have housing today, but am worried about losing it Problems where you live: no known problems In the past 12 months, have you had to go without electric, gas, oil or water in your home?: no 1. Within the past 12 months, we worried whether our food would run out before we got money to buy more.: Never true 2. Within the past 12 months, the food we bought just didn't last and we didn't have money to get more.: Never true Has lack of transportation kept you from medical appointments or from doing things needed for daily living?: yes Has anyone in your life made you feel unsafe or unsupported?: no How hard is it for you to pay for the very basics like food, housing, medical care, and heating? Would you say it is:: Somewhat hard Do you want help finding or keeping work or a job?: I do not need or want help If for any reason you need help with day-to-day activities such as bathing, preparing meals, shopping, managing finances, etc., do you get the help you need?: I don’t need any help How often do you feel lonely or isolated from those around you?: Rarely Do you speak a language other than Bulgarian at home?: Yes Health Related Social Needs Health related social needs: housing instability, housed, with risk of homelessness (Z59.811), transportation insecurity (Z59.82), problems related to housing/economic circumstances (Z59.89), feeling lonely/isolated (Z60.8) and education (Z55.6) Health related social needs details: not worried about housing
--- NOTE | 2025-04-23 13:36 | PT.INTREAT ---
PT Notes Visit Reasons: Exacerbation of COPD with hypoxic respiratory fail Date: 04/23/2025 PRECAUTIONS: Fall Standard SUBJECTIVE: Pt in bed when approached for therapy this afternoon, pt demonstrating difficulty with breathing, pt agreed to participating with therapy session despite difficulty with breathing. OBJECTIVE: PAIN: denies VITALS: Pre-Treatment: sao2 @ 90% RA Post-Treatment: sao2 @ 90% RA Therapeutic Activities 97272: Direct one-on-one instruction in dynamic activities to improve functional performance. BED MOBILITY/TRANSFERS Rolling L/R: SBA Supine-sit: SBA Sit-supine: SBA Sit-stand: CGA Stand-sit: CGA Bed-Chair: CGA Chair-bed: CGA Provided skilled cues and instruction on performance and technique throughout. Gait Training [id number]: Direct one-on-one instruction and skilled instruction in: Employing an assistive device Modified weight-bearing status Movement sequencing Turning and movement with proper form Provided verbal cues for equipment management and technique Provided instruction in gait pattern Patient education regarding pacing and breathing techniques to maximize activity tolerance GAIT Assistive Device: FWW Weight bearing: FWB Assist: [facility] Distance: 15'x2 am, 15'x2 pm Deviation: slow shuffling gait Therapeutic Exercises 38682: Direct one-on-one instruction in therapeutic exercises to develop strength, endurance, range of motion and flexibility. Seated Deep breathing exercises Seated march [id number] Seated heel slides [id number] Seated ankle pumping [id number] Seated glute and quad sets [id number] Provided skilled instruction in proper exercise performance Provided skilled manual cues to facilitate proper muscle recruitment and/or form: ASSESSMENT: pt tolerated activity given enough rest break in between activity for rest and DBE, pt education about importance of energy conservation strategies to prevent MONTIEL and falls with pt reporting understanding. PLAN: Continue with balance training, global strengthening and general conditioning for improved safety, mobility and activity tolerance until pt is ready for DC. TREATMENT CODE/TIME: [id number], [id number] 25mins (11:40-12:15am) [id number] 10mins (1:50-2:00pm)
--- NOTE | 2025-04-23 13:41 | CHAPLAIN ---
Paul was sitting up at the edge of the bed eating lunch when I visited. He told me that his just before . He has a pen pal, a woman in [place] with whom he speaks on the phone often and identified as a strong support for him. They began communicating online and this developed into a friendship with phone conversations. I explained my role and offered support.
--- NOTE | 2025-04-23 15:27 | W.PALLCONSUL ---
Date of service: 04/23/25 Time of Service: 14:30 History of Present Illness Narrative: Mr. Miller is a 74 y/o M currently hospitalized 2/2 acute exacerbation of COPD; PMHx sig for CHF Hospital Course: d/c'd from [facility] on 04/15 2/2 CHF exacerbation, re-presented to ED on 04/20 w/worsening dyspnea; hypoxic in ED, no hypercapnea noted, d/t inability to improve dyspnea at rest and increasing O2 demands admitted for COPD exacerbation; CXR potentially w/PNA, started on doxycycline and oral steroids; PT consult recommend SNF; now on RA - significant dyspnea, w/worsening anxiety; does have morphine order 2mg IVP q6h PRN Paul reports constipation sxs cleared today w/med management - dyspnea is often, comes and goes; typically will treat w/nebulizer which takes the edge off or other inhalers he has; does feel air hunger w/increased anxiety during these times, anxiety will also trigger dyspnea which is quite frightening; he had tried morphine at home when previously on hospice, unclear outcome, open to trying again today; aware he has a diagnosis of COPD and that it is worsening, does not associate this disease with being terminal at this point - aware of CHF dx, also does not associate this as a terminal disease - previously on hospice, does not know hospice dx; he opted for discharge off hospice 12/15 they were always considering him terminal and he was not feeling that way, wanted to have labs, was interested in presenting to hospital - sadly, his of 28 years Luma this fall; he has been having a hard time with this, now he is more alone w/less supports; fortunately he has a close relationship w/his brother Cheko and his , they are coming to visit on Monday; he also lists 3 close friends: Armida a helpful neighbor, Nany, a friend and Aracelis a new penpal who has been a great support for him; - Unfortunately, he is losing his house on 05/23, after a long black w/assistance from executive legal secretary, it went for auction 04/05; he also had to rehome his dog and cat recently d/t this; this is all very upsetting to him and contributes to him feeling lonely and isolated - he is aware he cannot care for himself independently, naming hygiene as something he knows he needs help with. is open minded to SNFs at this time, but is not thinking it would be his preferred senior living plan, however he doesn't know what else he would do as an alternative - has never done an AD or completed this paperwork, even when on hospice?; would want brother to be HCA, agrees to form today Assessment and Plan Assessment and plan (1) Acute exacerbation of chronic obstructive pulmonary disease: Status: Acute Assessment and plan: continue doxycycline and oral steroids nebulizers on RA today (2) Constipation: Assessment and plan: resolved w/med help today continue to address (3) Dyspnea: Status: Acute Assessment and plan: continue morphine IVP q6h PRN, may consider lower dose trial of 0.5-1mg for dyspnea does not like fan on face (4) CHF (congestive heart failure): Assessment and plan: w/recent exacerbation needs f/u (5) Financial difficulties: Status: Acute Assessment and plan: losing home on 05/23, w/no ability to pay for new house will need assistance w/senior living planning lives in [facility] (6) Housing insecurity: Status: Acute Assessment and plan: as above plans for discharge to SNF at this time (7) Deficit in activities of daily living (ADL): Status: Acute Assessment and plan: will require assistance post discharge, plan for SNF (8) Encounter for hospice care discussion: Status: Acute Assessment and plan: Paul does not feel he is terminal today, would want to continue options to present to hospital, have labs drawn (specifically mentions potassium); aware he needs ADL assistance, feels may be adequate for this; unsure what his hospice dx was, could be either COPD/CHF based on today's visit - was on [facility], his was also on [facility] - maybe consider [place] [facility] if returns to their area not interested in returning on hospice today (9) ACP (advance care planning): Status: Acute Assessment and plan: reviewed and completed HCA form reviewed COPD, dyspnea, anxiety cycles; management w/morphine, fan, nebs, etc reviewed in brief hospice encounter, experience, and care preferences (repeat hospitalization, lab monitoring, etc) and hospice philosophy spent 20 m w/ACP (10) Discharge planning issues: Status: Resolved Assessment and plan: referrals to SNFs pending (11) Anxiety: Status: Chronic Assessment and plan: has lorazepam for PRN use, recommended request if needed, alex to bridge gaps between resp meds, morphine w/dyspnea/anxiety present (12) Palliative care encounter: Status: Acute Assessment and plan: PC will continue to follow, plan for f/u on Monday inpatient - in community post discharge f/u visits to review CODE status, AD, or disease progression - based on how he is doing and able to review that day; he was quite anxious at start of our visit, but was able to engage w/slowed thoughtful conversations and appreciated the palliative approach Review of Systems Narrative: as per HPI PFSH All Active Problems (Updated 04/23/25 @ 16:58 by Ange Carnes NP) Palliative care encounter (Acute) Anxiety (Chronic) ACP (advance care planning) (Acute) Encounter for hospice care discussion (Acute) Deficit in activities of daily living (ADL) (Acute) Housing insecurity (Acute) Financial difficulties (Acute) Dyspnea (Acute) GERD (gastroesophageal reflux disease) (Chronic) Atrial fibrillation (Chronic) Acute exacerbation of chronic obstructive pulmonary disease (Acute) Hypokalemia (Acute) Steroid dependence (Chronic) Acute exacerbation of CHF (congestive heart failure) (Acute) Lung nodule (Acute) BPH w urinary obs/LUTS (Acute) Microcytic anemia (Chronic) UTI (urinary tract infection) (Acute) Presence of stent in coronary artery in patient with coronary artery disease (Acute) Diastolic CHF (Chronic) Pneumonia (Acute) Medical History HTN (hypertension) Chronic renal failure Non-STEMI (non-ST elevated myocardial infarction) History of tobacco use Hypospadias Chronic kidney disease, stage 3 Peripheral arterial occlusive disease Constipation Depression Lower urinary tract symptoms (LUTS) Exertional dyspnea Pulmonary hypertension due to left heart disease Coronary artery disease Diastolic heart failure Lower back pain Dysuria Anemia, iron deficiency Heartburn Screening for colon cancer Nocturia Urinary frequency Prediabetes Hypoxemia Multiple pulmonary nodules Lumbar back pain with radiculopathy affecting lower extremity Former smoker Congestion of nasal sinus CKD (chronic kidney disease) CHF (congestive heart failure) Alcoholism in recovery Hypospadias in male COPD (chronic obstructive pulmonary disease) Hyperlipidemia Essential hypertension Surgical History History of phacoemulsification of cataract of both eyes with intraocular lens implantation History of tonsillectomy Family History Father Throat cancer Heart disease Myocardial infarction Brother Heart disease Status post coronary stents Social History Smoking/Tobacco Use Status: Former Tobacco Use Quit Date: 01/11/17 Smoking risk assessment performed?: Yes Alcohol Intake: former Year quit: 2016 Details: Former alcoholic up to 2 cases of gin per month Drug use: Never Substance use type: does not use Housing: house Number of Children: 0 Pets and animals: Yes Pets and animals: dog(s) What is your relationship status?: Panel score (0-1 are the most socially isolated patients): 1 Do you feel safe at home: Yes Do you feel safe in your relationship?: Yes Exam Narrative Exam Narrative: General: ill appearing male, sitting w/HOB elevated in hospital bed, ind transfers to feet over edge of bed to sit up; HEENT: normocephalic, atraumatic, hearing grossly WNL, MMM Resp: labored, tachynpnic, able to speak 2-3 sentences before needing break, recovers quickly; improved labored breathing 20m post morphine 2mg IVP; no audible wheeze, no cough Psych: cooperative, sad and anxious at times, intermittently tears, but is able to recover w/focused breathing, speech clear, loose association, judgment/insight fair to limited Results Last Vital Signs Temp 97.2 F L 04/23/25 15:13 Pulse 75 04/23/25 15:13 Resp 18 04/23/25 15:13 BP 148/76 H 04/23/25 15:13 Pulse Ox 92 04/23/25 15:13 Labs 04/23/25 06:16 04/23/25 06:16 Labs: Laboratory Results - last 24 hr 04/23/25 06:16 WBC 11.67 H RBC 6.22 H Hgb 12.7 L Hct 39.4 L MCV 63 L MCH 20.4 L MCHC 32.2 RDW 22.7 H Plt Count 150 MPV 9.3 Sodium 141 Potassium 4.1 D Chloride 106 Carbon Dioxide 26.7 Anion Gap 8.3 BUN 56 H Creatinine 1.1 Est GFR (CKD-EPI 2020) 71.32 Glucose 107 H Calcium 8.8 Magnesium 2.2 Total Bilirubin 1.4 H AST 24 ALT 67 H Alkaline Phosphatase 65 Total Protein 5.7 L Albumin 3.0 L Time Spent Time Spent with Patient Time Spent(min): 65
--- NOTE | 2025-04-23 16:29 | W.PM.PROGNOT ---
Date of Service Date of service: 04/23/25 Time of Service: 16:29 Assessment and Plan Assessment and plan (1) Acute exacerbation of chronic obstructive pulmonary disease: Start date: 04/20/25 Status: Acute Assessment and plan: On doxycycline and oral steroid steroid-dependent and has a poor weaning protocol which may need to be addressed. Ongoing nebulizer treatments Palliative care consult completed: please read notes (2) Steroid dependence: Status: Chronic Assessment and plan: As above taper at d/c (3) Atrial fibrillation: Status: Chronic Assessment and plan: Appears to be a new onset Continue home Coreg-MVR with beta-scottie- d/c telemetry On [facility]- Script sent to pharmacy Outpatient cardiology referral as per PCP (4) Diastolic CHF: Status: Chronic Assessment and plan: On oral diuretic , no IV needed today IV lasix completed -improved LEs edema- on oral home dose torsemide Was likely still exacerbated as the patient stated that he left too early on 04/14 to 04/15 admission for CHF exacerbation for personal reasons BNP > 5000 on 04/20 This could be the part of the etiology for atrial fibrillation with initial RVR now MVR - does not report a history of parosyxmal atrial fibrillation Continue to monitor labs. Echo report on 04/15/25:- will not repeat Conclusion Technically very difficult and suboptimal study Mild concentric left ventricular hypertrophy. Overall left ventricular systolic function appears within the range of normal. No segmental wall motion abnormalities are identified Right atrium and right ventricle are not well-visualized Normal left atrial size Within the limits of the study, no abnormalities of the aortic or mitral valve are identified (5) Essential hypertension: Assessment and plan: On outpatient medical therapy adjusting as needed. (6) Chronic kidney disease, stage 3: Assessment and plan: Cr is stable with monitor while hospitalized. BMP in AM (7) Coronary artery disease: Assessment and plan: On outpatient medical therapy. (8) Hyperlipidemia: Assessment and plan: On home outpatient statin therapy. (9) GERD (gastroesophageal reflux disease): Status: Chronic Assessment and plan: Resolved Mid- sternal discomfort described as heart burn- s/p oral potassium. The patient has a Hx of GERD and is on PPI. PRN Mylanta (10) Hypokalemia: Status: Acute Assessment and plan: K 4.1 , unable to tolerate IV supplementation On oral potassium BMP in AM (11) Discharge planning issues: Status: Resolved Assessment and plan: Increased weakness during stay PT consult still pending If not seen by palliative inpatient -consider outpatient referral as per PCP discussed with Dr. Elizabeth Subjective Subjective Patient reports: feels better, tolerating liquids well, tolerating a regular diet, voiding w/o difficulty, flatus, bowel movement, shortness of breath (Improving reduced sternocleidomastoid and intercostal muscles use compared to yesterday ) and other (decreased WOB ); denies diarrhea, blood in stool, nausea, vomiting or fever Exam Narrative Exam Narrative: Constitutional Neuro:alert and oriented X4 Resp: slightly labored breathing, decreased R base and eft basilar Cardio: regular rhythm, S1, S2, atrial flutter MVR on tele GI: Abdomen is not distended, soft and non tender, bowel sounds are present Psych: RASS 0, congruent mood and normal affect. Objective Last Vital Signs Temp 36.2 C L 04/23/25 15:13 Pulse 77 04/23/25 16:21 Resp 18 04/23/25 16:03 BP 148/76 H 04/23/25 15:13 Pulse Ox 93 04/23/25 16:03 Laboratory Results - last 24 hr 04/23/25 06:16 WBC 11.67 H RBC 6.22 H Hgb 12.7 L Hct 39.4 L MCV 63 L MCH 20.4 L MCHC 32.2 RDW 22.7 H Plt Count 150 MPV 9.3 Sodium 141 Potassium 4.1 D Chloride 106 Carbon Dioxide 26.7 Anion Gap 8.3 BUN 56 H Creatinine 1.1 Est GFR (CKD-EPI 2020) 71.32 Glucose 107 H Calcium 8.8 Magnesium 2.2 Total Bilirubin 1.4 H AST 24 ALT 67 H Alkaline Phosphatase 65 Total Protein 5.7 L Albumin 3.0 L Time Spent with Patient Time Spent with Patient: >50 minutes Time was spent: preparing to see the patient(eg.review tests), obtaining and/or reviewing separately otained hiistory, ordering medications,tests, procedures, referring, communicating with other health home health care provider, indepentently interpreting results, counseling the patient and care coordination
[2025-04-23] MEDS: LORazepam 0.5 MG TAB PO (17:59)
[2025-04-23] MEDS: Rosuvastatin 20 MG TAB 40 MG PO (20:45)
[2025-04-23] MEDS: Mylanta Suspension 30 ML CUP PO (20:45)
[2025-04-23] MEDS: cloNIDine 0.1 MG TAB PO (20:46)
[2025-04-24 03:16] VITALS: PULSE 69; RESP 16; RESP 9; O2SAT 92
[2025-04-24] MEDS: Albuterol/Ipratropium 3 ML UPD VIAL UPD ×3 (03:16→11:04)
[2025-04-24 03:22] VITALS: PULSE 71
[2025-04-24 07:48] VITALS: BP 112/70; PULSE 75; RESP 16; TEMP 36.3; O2SAT 93
[2025-04-24 07:56] VITALS: PULSE 54; RESP 22; RESP 9; O2SAT 92
[2025-04-24] MEDS: Budesonide/Formoterol 80/4.5 6.9 GM 60 PUFF INH IH (07:57)
[2025-04-24] MEDS: Tiotropium Bromide-Respimat 10 PUFF INH IH (07:57)
[2025-04-24 08:04] VITALS: PULSE 75
[2025-04-24] MEDS: LORazepam 0.5 MG TAB PO ×2 (08:24→11:14)
[2025-04-24] MEDS: MORPHine 2 MG/ML SYR IVP (08:24)
[2025-04-24] MEDS: Normal Saline Flush 10 ML SYR IVP ×2 (08:27→10:41)
[2025-04-24] MEDS: Nicotine 21 MG/24 HR PATCH TD (08:28)
[2025-04-24] MEDS: Aspirin E.C. 81 MG TABEC PO (08:29)
[2025-04-24] MEDS: Doxycycline Hyclate 100 MG CAP PO (08:29)
[2025-04-24] MEDS: Potassium Chloride 20 MEQ TABCR 40 MEQ PO (08:29)
[2025-04-24] MEDS: Pantoprazole 40 MG TABCR PO (08:29)
[2025-04-24] MEDS: Torsemide 10 MG TAB 30 MG PO (08:29)
[2025-04-24] MEDS: Carvedilol 12.5 MG TAB PO (08:29)
[2025-04-24] MEDS: Tamsulosin 0.4 MG CAPCR 0.8 MG PO (08:29)
[2025-04-24] MEDS: amLODIPine 10 MG TAB PO (08:30)
[2025-04-24] MEDS: Polyethylene Glycol 3350 17 GM PACKET PO (08:30)
[2025-04-24] MEDS: predniSONE 20 MG TAB 40 MG PO (08:30)
[2025-04-24] MEDS: Finasteride 5 MG TAB PO (08:30)
[2025-04-24] MEDS: Docusate Sodium 100 MG CAP PO (08:30)
[2025-04-24] MEDS: Apixaban 5 MG TAB PO (08:30)
--- NOTE | 2025-04-24 08:46 | PDOC.CMDIS ---
Date of service: 04/24/25 Time of Service: 08:46 LACE Index Scoring Tool Questions: Length of Stay (in days): 4 - 6 Was the patient admitted via the E.D.?: Yes Comorbidities: Previous M.I., PVD, Congestive Heart Failure, Chronic Pulmonary Disease and Liver or Renal Disease E.D. Visits: 2 Answers: Total Score: 14 Risk of Readmission: High Risk Care Management Discharge Plan Reason for Hospitalization: COPD Discharge Plan: Paul will transfer to [facility] for short term rehab prior to returning home. He will follow up with the facility providers and plan of care and transport via RCT w/c van. Patient/Family Education Needs: Review of discharge instructions, limitations, follow up plan and discuss Ask Me Three Services Needed at Discharge: Custodial Facility SDOH Health Related Social Needs: Health related social needs risk of homeless transpo insecurity house/econ circumstance lonely/isolated education Health related social needs details not worried about housing Health related social needs details: not worried about housing
--- NOTE | 2025-04-24 09:32 | DSE_ITS ---
Date of service: 04/24/25 Time of Service: 09:32 DS: Diagnosis Discharge Diagnosis (1) Acute exacerbation of chronic obstructive pulmonary disease: Status: Acute (2) Steroid dependence: Status: Chronic (3) Atrial fibrillation: Status: Chronic (4) Diastolic CHF: Status: Chronic (5) Essential hypertension: (6) Chronic kidney disease, stage 3: (7) Coronary artery disease: (8) Hyperlipidemia: (9) GERD (gastroesophageal reflux disease): Status: Chronic (10) Hypokalemia: Status: Acute (11) Discharge planning issues: Status: Resolved Discharge Plan Disposition Patient Disposition: Nursing Home Facility(SNF) Condition: Improving Discharge Details Reason For Visit: Exacerbation of COPD with hypoxic respiratory fail Admit Date/Time: 04/20/25 22:53 Admit Provider: Geremias Camilo Attending Provider: Geremias Camilo Primary Care Provider: Everardo Malloy Hospital Course Hospital Course: 74-year-old gentleman with past medical history of hypertension, HFpEF, COPD, still smoking, long-term steroid use presented to the ED on 04/20/2025 for evalua tion of acute shortness of breath , previously admitted on 04/14/2025 and discharged on 04/14/2025 status post treatment with IV Lasix for CHF exacerbation. Patient mention mentioned that he did not stay longer because he had to take care of his dog. Reported having worsening shortness of breath not improved with albuterol inhaler. Workup in the ED was positive for leukocytosis, Cr 1.5 with baseline 1.1, troponoin 77 with repeat at 73, BNP 5033, hypoxia resolving with oxygen supplementation ; EKG was neagtive for acute ischemic findings. The patient was admitted to the medical surgical floor on telemetry for acute hypoxic respiratory failure, COPD exacerbation. Treatment continued with duonebs, doxycycline and steroids; IV lasix initiated d/t BNP results, LE edema, wheezing with labored breathing with use of accessory muscle as well as conversion to atrial fibrillation with RVR despite been on Coreg. Remained in atrial- fibrillation but controlled rhythm and Eliquis was initiated. Last Echocardiogram done on 04/15/25 with LVEF appearing in normal range. The patient 's respiratory improved w/o any further oxygen supplementation remaining hemodynamically stable. The patient will be discharged to a SNF and will need follow-up with his PCP within 7 days of discharge. Referral for outpatient cardiology completed need. Home Meds and New Rx's Prescriptions: New doxycycline hyclate 100 mg capsule 100 mg PO BID Qty: 8 0RF prednisone 20 mg tablet 40 mg PO DAILY Qty: 11 0RF Rx Instructions: take 40 mg for 3 days Then 20 mg for 3 days then 10 mg for 3 days then stop Eliquis 5 mg tablet 5 mg PO BID Qty: 60 0RF docusate sodium [Colace] 100 mg Capsule 100 mg PO BID Qty: 60 0RF budesonide-formoterol [Symbicort] 80-4.5 mcg/actuation Hfa Aerosol Inhaler 2 inh inhalation BID Qty: 10.2 0RF Spiriva Respimat 2.5 mcg/actuation Mist 2 puff inhalation Q12H Qty: 4 0RF lorazepam 0.5 mg Tablet 0.5 mg PO BID Qty: 10 0RF polyethylene glycol 3350 17 gram Powder In Packet 17 g PO DAILY PRNQty: 30 0RF Continued nitroglycerin 0.4 mg tablet, sublingual 0.4 mg SL Q5M PRN rosuvastatin 40 mg tablet 40 mg PO DAILY finasteride 5 mg tablet 5 mg PO DAILY Qty: 90 3RF tamsulosin [Flomax] 0.4 mg capsule 0.8 mg PO DAILY Qty: 180 3RF guaifenesin [Mucinex] 600 mg tablet extended release 12hr 600 mg PO BID PRN Trelegy Ellipta 100-62.5-25 mcg blister with device 1 inh inhalation DAILY clonidine HCl 0.1 mg tablet 0.1 mg PO QHS nicotine 21 mg/24 hr patch 24 hour 1 patch transdermal DAILY carvedilol 12.5 mg Tablet 12.5 mg PO BID aspirin [Aspir-81] 81 mg Tablet,Delayed Release (Dr/Ec) 81 mg PO DAILY albuterol sulfate [ProAir HFA] 200 PUFF HFA aerosol inhaler 2 puff Inhalation Q4H PRN PRNQty: 1 0RF amlodipine 10 mg Tablet 10 mg PO DAILY polyethylene glycol 3350 [GlycoLax] 17 gram/dose Powder 17 g PO DAILY PRN ipratropium-albuterol 0.5 mg-3 mg(2.5 mg base)/3 mL solution for nebulization 3 ml IH Q6H Qty: 90 0RF potassium chloride 20 mEq tablet extended release 40 meq PO DAILY Qty: 30 0RF Changed torsemide 20 mg Tablet 40 mg PO DAILY Qty: 0 0RF pantoprazole 40 mg Tablet,Delayed Release (Dr/Ec) 40 mg PO BID Qty: 0 0RF Discharge Instructions Stand Alone Forms: Nursing Discharge Form Referrals: Everardo Malloy MD [Primary Care Provider, Medicine] - 05/01/25 8:35 am Referral Note: Follow-up within 7 days of discharge please Day Rogers MD [ [facility] STAFF PHYSICIAN, Cardiology] Referral Note: New onset atrial-fibrillation/ flutter with COPD exacerbation and known HFpEF, on Coreg and now Eliquis Activity:: Activity as Tolerated Equipment/Supplies:: Walker Diet:: heart healthy Discharge Orders Discharge Orders: Discharge Order (Routine); Ordered 04/24/25 Ordered By: Kat Patton DS: Summary Time Spent with Patient providing and/or coordinating discharge services: Greater than 30 minutes Status at Discharge Functional status at discharge: uses cane/walker Overall status at discharge: patient is progressing back to baseline Mental Status: mental status grossly normal Speech and Movement: speech and movement normal Mood: congruent mood Affect: normal affect Quality:SDOH Health Related Social Needs: Health related social needs risk of homeless transpo i nsecurity house/econ circumstance lonely/isolated education Health related social needs details not worried about housing Health related social needs details: not worried about housing Exam Narrative Exam Narrative: Constitutional Neuro:alert and oriented X4 Resp: slightly labored breathing, decreased R base and eft basilar Cardio: regular rhythm, S1, S2, atrial flutter MVR on tele GI: Abdomen is not distended, soft and non tender, bowel sounds are present Psych: RASS 0, congruent mood and normal affect. Psych Mental Status: mental status grossly normal Speech and Movement: speech and movement normal Mood: congruent mood Affect: normal affect DS: Data Vitals/I&O Vitals and I&O: Vital Signs Temperature 36.3 C L 04/24/25 07:48 Temperature Source Temporal Artery Scan 04/24/25 07:48 Pulse 75 04/24/25 08:04 Pulse 81 04/20/25 23:53 Respiratory Rate 22 04/24/25 07:56 Respiratory Effort Normal 04/21/25 00:18 Respiratory Depth Normal 04/21/25 00:18 Respiratory Pattern Normal 04/21/25 00:18 Blood Pressure 112/70 04/24/25 07:48 Blood Pressure Mean 84 04/24/25 07:48 Pulse Oximetry 92 04/24/25 07:56 Oxygen Delivery Method Room Air 04/24/25 07:56 Oxygen Flow Rate 0 04/24/25 07:56 Fraction of Inspired Oxygen (FIO2) 24 04/20/25 18:39 Pain Level 0 04/24/25 07:48 Comment RN notified 04/23/25 11:41 Intake & Output 04/23/25 04/23/25 04/24/25 11:59 23:59 11:59 Intake Total 300 / 300 Output Total 500 / 1400 900 / 1400 400 / 400 Balance -490 / -1390 -900 / -1390 -100 / -100 Weight 91.3 kg Intake: IV Oral 300 / 300 Output: Urine 500 / 1400 900 / 1400 400 / 400 Other: Urine Color Yellow Light Denisse Yellow Urine Appearance Clear Clear Clear Urine Odor Normal Strong Strong Comment pt put toilet paper in urine, unmeasurable Stool Size Moderate Stool Characteristics Formed PFSH All Active Problems (Updated 04/24/25 @ 09:44 by Kat Patton APRN) Palliative care encounter (Acute) Anxiety (Chronic) ACP (advance care planning) (Acute) Encounter for hospice care discussion (Acute) Deficit in activities of daily living (ADL) (Acute) Housing insecurity (Acute) Financial difficulties (Acute) Dyspnea (Acute) GERD (gastroesophageal reflux disease) (Chronic) Atrial fibrillation (Chronic) Acute exacerbation of chronic obstructive pulmonary disease (Acute) Hypokalemia (Acute) Steroid dependence (Chronic) Acute exacerbation of CHF (congestive heart failure) (Acute) Lung nodule (Acute) BPH w urinary obs/LUTS (Acute) Microcytic anemia (Chronic) UTI (urinary tract infection) (Acute) Presence of stent in coronary artery in patient with coronary artery disease (Acute) Diastolic CHF (Chronic) Pneumonia (Acute) Medical History HTN (hypertension) Chronic renal failure Non-STEMI (non-ST elevated myocardial infarction) History of tobacco use Hypospadias Chronic kidney disease, stage 3 Peripheral arterial occlusive disease Constipation Depression Lower urinary tract symptoms (LUTS) Exertional dyspnea Pulmonary hypertension due to left heart disease Coronary artery disease Diastolic heart failure Lower back pain Dysuria Anemia, iron deficiency Heartburn Screening for colon cancer Nocturia Urinary frequency Prediabetes Hypoxemia Multiple pulmonary nodules Lumbar back pain with radiculopathy affecting lower extremity Former smoker Congestion of nasal sinus CKD (chronic kidney disease) CHF (congestive heart failure) Alcoholism in recovery Hypospadias in male COPD (chronic obstructive pulmonary disease) Hyperlipidemia Essential hypertension Surgical History History of phacoemulsification of cataract of both eyes with intraocular lens implantation History of tonsillectomy Family History Father Throat cancer Heart disease Myocardial infarction Brother Heart disease Status post coronary stents Social History Smoking/Tobacco Use Status: Former Tobacco Use Quit Date: 01/11/17 Smoking risk assessment performed?: Yes Alcohol Intake: former Year quit: 2016 Details: Former alcoholic up to 2 cases of gin per month Drug use: Never Substance use type: does not use Housing: house Number of Children: 0 Pets and animals: Yes Pets and animals: dog(s) What is your relationship status?: Panel score (0-1 are the most socially isolated patients): 1 Do you feel safe at home: Yes Do you feel safe in your relationship?: Yes Time Spent with Patient Time Spent with Patient: 70-84 minutes4 Time was spent: preparing to see the patient(eg.review tests), obtaining and/or reviewing separately otained hiistory, ordering medications,tests, procedures, referring, communicating with other health career services coordinator, indepentently interpreting results, counseling the patient and care coordination
[2025-04-24] MEDS: Mylanta Suspension 30 ML CUP PO (10:41)
[2025-04-24] MEDS: Furosemide 40 MG/4 ML VIAL IVP (10:42)
[2025-04-24 11:04] VITALS: PULSE 75; RESP 18; RESP 9; O2SAT 93
--- NOTE | 2025-04-24 11:25 | PTTR_ITS ---
PT Notes Visit Reasons: Exacerbation of COPD with hypoxic respiratory fail Date: 04/24/2025 PRECAUTIONS: Fall Standard SUBJECTIVE: Pt reporting he feels a bit SOB and asked for nebulizer treatment prior to session. Nurse Mullen provided nebulizer. OBJECTIVE: Pt seated at EOB bracing with BUE on bed. Pt without accessory mus culature use for respirations. PAIN: denies VITALS: Pre-Treatment: sao2 @ 93% RA Post-Treatment: sao2 @ 90% RA Therapeutic Activities 49227: Direct one-on-one instruction in dynamic activities to improve functional performance. BED MOBILITY/TRANSFERS Rolling L/R: SBA Supine-sit: SBA Sit-supine: SBA Sit-stand: SBA Stand-sit: SBA Bed-Chair: SBA with FWW [id number] Chair-bed: SBA with FWWx2 trials Provided skilled cues and instruction on performance and technique throughout. Ambulation: Facilitated safe and correct performance of level surface ambulation covering a distance of 20 feet x2 including side stepping and backward stepping using use front wheeled walker with contact-guard assist Did not report of any increased pain. Denied headache, chest pain, and lightheadedness throughout activity. Minimal verbal cueing provided for AD management in small spaces, directional changes, and posture. Deviation: slow reciprocal iain with full extension of elbows for WB through FWW Provided skilled instruction in proper exercise performance of deep breathing and PLB for breath control and pacing ASSESSMENT: Pt tolerated activity given enough rest break in between activity f or rest and breath control techniques., pt education about importance of energy conservation strategies to prevent MONTIEL and falls with pt reporting understanding. Pt noted to be less dyspnec this session. Nurse did note palliative care recommended med adjustments which appear to have helped. Pt able to perform tasks with SBA /CGA. short distance ambulation with FWW. Pt limited by reduced stand activity tolerance , BLE weakness and respiratory status. PLAN: anticipate d/c to SNF TREATMENT CODE/TIME: [id number] 23mins ([id number])
--- NOTE | 2025-04-24 11:32 | NUR.NOTE ---
Called report to nurse [facility] at [facility]. [facility] will transport pt at 1140. Nursing Note:
== END 2025-04-24 11:36 | disposition skilled nursing facility (03) | DRG 190 ==
LOC: ER 04-21 → MS 04-21 07:36
PROVIDERS: Admitting Provider Family Medicine; Emergency Provider Emergency Medicine; PCP Family Medicine; Responsible Provider Nurse Practitioner Acute Care; Visit Provider Family Medicine
DX: J44.1 Chronic obstructive pulmonary disease with (acute) exacerbation (principal); I50.33 Acute on chronic diastolic (congestive) heart failure; I13.0 Hypertensive heart and chronic kidney disease with heart failure and stage 1 through stage 4 chronic kidney disease, or unspecified chronic kidney disease; Z59.819 Housing instability, housed unspecified; N13.8 Other obstructive and reflux uropathy; R09.02 Hypoxemia; N18.31 Chronic kidney disease, stage 3a; K59.00 Constipation, unspecified; E78.2 Mixed hyperlipidemia; K21.9 Gastro-esophageal reflux disease without esophagitis; Z73.6 Limitation of activities due to disability; I48.91 Unspecified atrial fibrillation; E87.6 Hypokalemia; F41.9 Anxiety disorder, unspecified; I25.2 Old myocardial infarction; Z87.891 Personal history of nicotine dependence; Z79.51 Long term (current) use of inhaled steroids; I25.10 Atherosclerotic heart disease of native coronary artery without angina pectoris; N40.1 Benign prostatic hyperplasia with lower urinary tract symptoms; D50.9 Iron deficiency anemia, unspecified; Z95.5 Presence of coronary angioplasty implant and graft; I73.9 Peripheral vascular disease, unspecified; F32.A Depression, unspecified; I27.22 Pulmonary hypertension due to left heart disease; R73.03 Prediabetes; F10.21 Alcohol dependence, in remission; M54.16 Radiculopathy, lumbar region; R91.8 Other nonspecific abnormal finding of lung field
CPT/HCPCS: 00123; 36415; 80053; 82805; 85027; 87637; 93005; 94640; 96374; 96375; 97116; 97161; 97530; 99285; 71045; 83735; 83880; 84443; 84484; 85025; 93010; 94664; 94760; 99223; 99233; 99239; J1938; J2270; J2919; J3480; J7512; J7613; J7620

== ENCOUNTER → 2025-04-22 10:12 | Outpatient (BNVA) | payer MEDICARE, SELFPAY | PROVIDERS: PCP Family Medicine; Referring Provider Family Medicine; Visit Provider Internal Medicine Cardiovascular Disease ==

== ENCOUNTER 2025-04-30 13:42 | Emergency (ER) | payer MEDICARE, SELFPAY ==
[2025-04-30] VITALS (28 sets, daily range): BP systolic 97–148; BP diastolic 33–75; PULSE 84–95; RESP 0–27; TEMP 36.9; O2SAT 97–100
--- NOTE | 2025-04-30 14:00 | DI.RAD_ITS ---
Exam(s) XR PORTABLE CHEST AP EXAM: XR PORTABLE CHEST AP CLINICAL HISTORY: SOB, recent pneumonia TECHNIQUE: 2D digital imaging was performed. COMPARISON: CT CT CHEST WO from 02/27/2024 CR XR CHEST 2V PA LATERAL from 04/14/2025 CR,XR XR PORTABLE CHEST AP from 04/20/2025 FINDINGS: LUNGS: Calcified granuloma again noted in the right mid to lower lung field. No pleural abnormality seen. HEART: Enlarged. AORTA: Normal diameter. BONES: Unremarkable for age. Soft tissues: Unremarkable. IMPRESSION: No acute findings. DATA REPOSITORY: RADIATION DOSE DELIVERED:
[2025-04-30] MEDS: Furosemide 40 MG/4 ML VIAL IVP (14:35)
[2025-04-30] MEDS: Albuterol/Ipratropium 3 ML UPD VIAL UPD (14:35)
[2025-04-30 14:38] LABS: BE (Venous) 0 mmol/L (-2-3); HCO3 (Venous) 25 mmol/L (23-28); O2 Sat (Venous) 78 %; TCO2 (Venous) 24 mmol/L (24-29); pCO2 (Venous) 40 mmHg (41-51); pO2 (Venous) 43 mmHg
[2025-04-30 14:39] LABS: Abs Immature Grans 0.59 10^3/uL (0.0-0.06); HCT 25.3 % (40.0-50.0); HGB 8.1 g/dL (13.5-17.5); MCV 66 fL (80-95); MPV 9.9 fL (8.0-11.0); Platelet Count 188 10^3/uL (130-400); RBC 3.85 10^6/uL (4.36-5.78); RDW 22.5 % (11.8-14.1); RDW-SD 46.5 fL; WBC 11.91 10^3/uL (4.4-10.8)
[2025-04-30 14:44] LABS: Lactate 2.5 mmol/L (<or=2.0)
[2025-04-30 14:54] LABS: INR 1.1 (0.9-1.1); PTT Activated 22.1 sec (20.6-30.2); Prothrombin Time 10.8 sec (9.1-11.1)
[2025-04-30 15:09] LABS: ALT 37 U/L (16-63); AST 36 U/L (15-37); Albumin 2.8 g/dL (3.4-5.0); Alkaline Phosphatase 64 U/L (46-116); Anion Gap 10.2 mmol/L (3-11); BUN 68 mg/dL (7-18); Bilirubin, Total 1.3 mg/dL (0.2-1.0); CO2 25.8 mmol/L (21.0-32.0); CREATININE 1.7 mg/dL (0.70-1.30); Calcium 8.6 mg/dL (8.5-10.1); Chloride 105 mmol/L (98-107); Glucose 100 mg/dL (74-106); NT-proBNP 4650 pg/mL (<300); Potassium 5.2 mmol/L (3.5-5.1); Sodium 141 mmol/L (136-145); Total Protein 5.8 g/dL (6.4-8.2); Troponin I 44 ng/L (<or=76)
[2025-04-30 15:17] LABS: COVID-19 PCR Negative (Negative); Influenza A PCR Negative (Negative); Influenza B PCR Negative (Negative); RSV PCR Negative (Negative)
[2025-04-30 15:17] LABS: Absolute Neutrophil Count 7.38 10^3/uL (1.2-6.7)
[2025-04-30 15:18] LABS: Source Nasopharynx
[2025-04-30 15:18] LABS: Absolute Lymphocyte Count 4.05 10^3/uL (1.2-3.4); Absolute Monocyte Count 0.12 10^3/uL (0.1-0.8); Anisocytosis 2+; Diff Comment Manual Differential; Microcytosis 2+; Myelocytes % 2; Promyelocytes % 1
[2025-04-30 15:19] LABS: Hypochromasia 1+; Polychromasia Present
[2025-04-30 15:21] LABS: Basophilic Stippling Present
[2025-04-30 15:57] LABS: Troponin I 39 ng/L (<or=76)
--- NOTE | 2025-04-30 16:13 | W.ED.GENAD ---
Discharge Plan Disposition Patient Disposition: Home Condition: Good Discharge Details Clinical Impression: Breath shortness, Mild congestive heart failure, Weakness Primary Care Provider: Everardo Malloy ED Provider: Manuel Nguyen Home Meds and New Rx's Prescriptions: New pantoprazole [Protonix] 40 mg tablet,delayed release (DR/EC) 40 mg PO DAILY Qty: 60 0RF sucralfate [Carafate] 1 gram tablet 1 g PO BID Qty: 60 0RF Discontinued potassium chloride 20 mEq tablet extended release 40 meq PO DAILY Qty: 30 0RF No Action nitroglycerin 0.4 mg tablet, sublingual 0.4 mg SL Q5M PRN rosuvastatin 40 mg tablet 40 mg PO DAILY finasteride 5 mg tablet 5 mg PO DAILY Qty: 90 3RF tamsulosin [Flomax] 0.4 mg capsule 0.8 mg PO DAILY Qty: 180 3RF guaifenesin [Mucinex] 600 mg tablet extended release 12hr 600 mg PO BID PRN Trelegy Ellipta 100-62.5-25 mcg blister with device 1 inh inhalation DAILY clonidine HCl 0.1 mg tablet 0.1 mg PO QHS nicotine 21 mg/24 hr patch 24 hour 1 patch transdermal DAILY carvedilol 12.5 mg Tablet 12.5 mg PO BID aspirin [Aspir-81] 81 mg Tablet,Delayed Release (Dr/Ec) 81 mg PO DAILY doxycycline hyclate 100 mg capsule 100 mg PO BID Qty: 8 0RF prednisone 20 mg tablet 40 mg PO DAILY Qty: 11 0RF Rx Instructions: take 40 mg for 3 days Then 20 mg for 3 days then 10 mg for 3 days then stop Eliquis 5 mg tablet 5 mg PO BID Qty: 60 0RF torsemide 20 mg Tablet 40 mg PO DAILY Qty: 0 0RF docusate sodium [Colace] 100 mg Capsule 100 mg PO BID Qty: 60 0RF budesonide-formoterol [Symbicort] 80-4.5 mcg/actuation Hfa Aerosol Inhaler 2 inh inhalation BID Qty: 10.2 0RF Spiriva Respimat 2.5 mcg/actuation Mist 2 puff inhalation Q12H Qty: 4 0RF lorazepam 0.5 mg Tablet 0.5 mg PO BID Qty: 10 0RF polyethylene glycol 3350 17 gram Powder In Packet 17 g PO DAILY PRNQty: 30 0RF pantoprazole 40 mg Tablet,Delayed Release (Dr/Ec) 40 mg PO BID Qty: 0 0RF albuterol sulfate [ProAir HFA] 200 PUFF HFA aerosol inhaler 2 puff Inhalation Q4H PRN PRNQty: 1 0RF amlodipine 10 mg Tablet 10 mg PO DAILY polyethylene glycol 3350 [GlycoLax] 17 gram/dose Powder 17 g PO DAILY PRN ipratropium-albuterol 0.5 mg-3 mg(2.5 mg base)/3 mL solution for nebulization 3 ml IH Q6H Qty: 90 0RF Discharge Instructions Instructions: Shortness of breath Additional Instructions: At this time your chest x-ray shows no changes. Your oxygen levels are stable, your blood level has gone down by few points which may be from your chronic steroid use and blood thinner use. We will start you on medication to help reduce the risk of a stomach ulcer. Additionally your potassium was slightly elevated. This should go down with the extra diuretic that we gave you. Please stop taking your supplemental potassium at this time. Please have your blood levels rechecked in the next 48 hours. If your blood levels continue to decline you may need close outpatient EGD to evaluate for stomach ulcers. Please continue your Lasix daily. Your symptoms may worsen, and although there is no indication for admission at this time if you do notice a worsening of your symptoms please return for reassessment. In the meantime please continue your PT and OT. If you notice any worsening of your symptoms, or any new symptoms such as vomiting, diarrhea, fever, chills, shortness of breath, chest pain, numbness, weakness, or fainting , please return immediately to the emergency department for reevaluation. Please follow up with your primary care provider as soon as possible for reassessment and reevaluation. As always, it was a pleasure participating in your medical care today. Referrals: Everardo Malloy MD [Primary Care Provider, Medicine] [facility] General Date/Time Provider Initiated Documentation: 04/30/25 14:08. HPI Narrative: 74-year-old male with a past medical history of COPD, congestive heart failure on 40 mg of furosemide, chronic prednisone use, atrial fibrillation on Eliquis, chronic kidney disease, coronary artery disease, high cholesterol, and recent admission with discharge on 04/24/2025 for COPD and hypokalemia. [facility], he is on chronic steroids. He was also started on doxycycline at time of discharge. He presents today for shortness of breath. Patient states that he has felt short of breath today. While at [facility] he was given a breathing treatment, there was no hypoxemia, and his vital signs are stable. Patient requested that EMS was called. EMS arrived and noted continued stable vital signs and no hypoxemia. Patient requested to go to ED. Patient was brought here and has continued symptoms. He admits to chronic weakness and fatigue. He admits to chronic cough and shortness of breath. No other complaints at this time. No chest pain or pleuritic chest pain. He does admit to some swelling in his lower extremities. No fever or chills. Related Data Home Medications ?Medication ?Instructions ?Recorded ?Confirmed albuterol sulfate 90 mcg/actuation 2 puff inhalation Q4H PRN PRN #1 04/29/17 04/20/25 aerosol inhaler (ProAir HFA) inh amlodipine 10 mg tablet 10 mg PO DAILY 02/19/19 04/20/25 ipratropium 0.5 mg-albuterol 3 mg 3 ml inhalation Q6H #90 mL 02/19/19 04/20/25 (2.5 mg base)/3 mL nebulization soln polyethylene glycol 3350 17 17 g PO DAILY PRN 02/19/19 04/20/25 gram/dose oral powder (GlycoLax) aspirin 81 mg tablet,delayed 81 mg PO DAILY 05/10/19 04/20/25 release (Aspir-) carvedilol 12.5 mg tablet 12.5 mg PO BID 05/10/19 04/20/25 nitroglycerin 0.4 mg sublingual 0.4 mg sublingual Q5M PRN 12/04/19 04/20/25 tablet rosuvastatin 40 mg tablet 40 mg PO DAILY 12/04/19 04/20/25 finasteride 5 mg tablet 5 mg PO DAILY #90 tabs 11/08/21 04/20/25 tamsulosin 0.4 mg capsule (Flomax) 0.8 mg (2 x 0.4 mg) PO DAILY #180 11/08/21 04/20/25 caps clonidine HCl 0.1 mg tablet 0.1 mg PO QHS 02/28/23 04/20/25 fluticasone fur. 100 mcg-umeclid 1 inh inhalation DAILY 02/28/23 04/20/25 62.5 mcg-vilant 25 mcg inhalat.powder (Trelegy Ellipta) guaifenesin 600 mg tablet, 600 mg PO BID PRN 02/28/23 04/20/25 extended release 12 hr (Mucinex) nicotine 21 mg/24 hr daily 1 patch transdermal DAILY 02/28/23 04/20/25 transdermal patch apixaban 5 mg tablet (Eliquis) 5 mg PO BID #60 tabs 04/22/25 doxycycline hyclate 100 mg capsule 100 mg PO BID #8 caps 04/22/25 prednisone 20 mg tablet 40 mg (2 x 20 mg) PO DAILY #11 tabs 04/22/25 torsemide 20 mg tablet 40 mg (2 x 20 mg) PO DAILY #0 tabs 04/22/25 04/20/25 budesonide-formoterol HFA 80 2 inh inhalation BID #10.2 grams 04/24/25 mcg-4.5 mcg/actuation aerosol inhaler (Symbicort) docusate sodium 100 mg capsule 100 mg PO BID #60 caps 04/24/25 (Colace) lorazepam 0.5 mg tablet 0.5 mg PO BID #10 tabs 04/24/25 pantoprazole 40 mg tablet,delayed 40 mg PO BID #0 tabs 04/24/25 04/20/25 release polyethylene glycol 3350 17 gram 17 g PO DAILY PRN #30 ea 04/24/25 oral powder packet tiotropium bromide 2.5 2 puff inhalation Q12H #4 grams 04/24/25 mcg/actuation mist for inhalation (Spiriva Respimat) pantoprazole 40 mg tablet,delayed 40 mg PO DAILY #60 tabs 04/30/25 release (Protonix) sucralfate 1 gram tablet (Carafate) 1 g PO BID #60 tabs 04/30/25 Previous Rx's ?Medication ?Instructions ?Recorded albuterol sulfate 90 mcg/actuation 2 puff inhalation Q4H PRN PRN #1 04/29/17 aerosol inhaler (ProAir HFA) inh ipratropium 0.5 mg-albuterol 3 mg 3 ml inhalation Q6H #90 mL 02/19/19 (2.5 mg base)/3 mL nebulization soln finasteride 5 mg tablet 5 mg PO DAILY #90 tabs 11/08/21 tamsulosin 0.4 mg capsule (Flomax) 0.8 mg (2 x 0.4 mg) PO DAILY #180 11/08/21 caps apixaban 5 mg tablet (Eliquis) 5 mg PO BID #60 tabs 04/22/25 doxycycline hyclate 100 mg capsule 100 mg PO BID #8 caps 04/22/25 prednisone 20 mg tablet 40 mg (2 x 20 mg) PO DAILY #11 tabs 04/22/25 torsemide 20 mg tablet 40 mg (2 x 20 mg) PO DAILY #0 tabs 04/22/25 budesonide-formoterol HFA 80 2 inh inhalation BID #10.2 grams 04/24/25 mcg-4.5 mcg/actuation aerosol inhaler (Symbicort) docusate sodium 100 mg capsule 100 mg PO BID #60 caps 04/24/25 (Colace) lorazepam 0.5 mg tablet 0.5 mg PO BID #10 tabs 04/24/25 pantoprazole 40 mg tablet,delayed 40 mg PO BID #0 tabs 04/24/25 release polyethylene glycol 3350 17 gram 17 g PO DAILY PRN #30 ea 04/24/25 oral powder packet tiotropium bromide 2.5 2 puff inhalation Q12H #4 grams 04/24/25 mcg/actuation mist for inhalation (Spiriva Respimat) pantoprazole 40 mg tablet,delayed 40 mg PO DAILY #60 tabs 04/30/25 release (Protonix) sucralfate 1 gram tablet (Carafate) 1 g PO BID #60 tabs 04/30/25 Allergies Allergy/AdvReac Type Severity Reaction Status Date / Time lisinopril AdvReac Unknown low BP, Unverified 04/20/25 18:57 worsening CKD codeine phosphate (From AdvReac constipatio Unverified 04/20/25 18:57 Tylenol-Codeine) n General Stated Complaint: SOB DAISY: 3 Exam Narrative Exam Narrative: 1.Const: Well-nourished, Well-developed, appearing stated age 2.Eyes: PERRL, no conjunctival injection, and symmetrical lids. 3.ENT: Atraumatic external nose and ears. Moist MM. Neck: Symmetric, trachea midline, No thyromegaly. 4.CVS: +S1/S2, Peripheral pulses 2+ and equal in all extremities. Brisk capillary refill in all extremities. 5.RESP: Unlabored respiratory effort. Somewhat rhonchorous breath sounds throughout. Scattered wheezes. 6.GI: Soft, Nontender/Nondistended, No hepatosplenomegaly. No guarding or rebound. 7.MSK: Normocephalic/Atraumatic, Extremities w/o deformity or ttp No cyanosis or clubbing, Normal movement of all extremities. +2 pitting edema in the lower extremities. 8.Skin: Warm, Dry. No rashes or lesions. 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 Sensation grossly intact, no focal neurologic deficits. 10.Psych: (AAO) x3. Appropriate mood and affect Course Vital Signs Vital signs: Vital Signs Respiratory Rate 16 04/30/25 14:05 Temperature 36.9 C 04/30/25 14:16 Pulse 87 04/30/25 15:31 Pulse 88 04/30/25 15:40 Respiratory Rate 27 H 04/30/25 15:40 Respiratory Effort Short of Breath 04/30/25 15:47 Respiratory Depth Normal 04/30/25 15:47 Respiratory Pattern Normal 04/30/25 15:47 Blood Pressure 99/52 L 04/30/25 15:31 Blood Pressure Mean 64 04/30/25 15:31 Pulse Oximetry 97 04/30/25 14:16 Oxygen Delivery Method Room Air 04/30/25 14:16 Oxygen Flow Rate 0 04/30/25 14:15 Pain Level 0 04/30/25 14:15 Lab/Test Results Lab/Test Results: Laboratory Tests Range/Units 04/30/25 04/30/25 04/30/25 14:30 14:31 15:20 WBC (4.4-10.8) 10^3/uL 11.91 H RBC (4.36-5.78) 10^6/uL 3.85 L Hgb (13.5-17.5) g/dL 8.1 L Hct (40.0-50.0) % 25.3 L MCV (80-95) fL 66 L MCH (27.0-33.0) pg 21.0 L MCHC (32.0-36.0) % 32.0 RDW (11.8-14.1) % 22.5 H Plt Count (130-400) 10^3/uL 188 MPV (8.0-11.0) fL 9.9 Immature Gran % % Neutrophils % % 62.0 Lymphocytes % % 34.0 Monocytes % % 1.0 Eosinophils % % 0.0 Basophils % % 0.0 Myelocytes % 2 Promyelocytes % 1 Nucleated RBC % (0.0-0.3) % 6.0 H Absolute Neutrophils (1.2-6.7) 10^3/uL 7.38 H Absolute Lymphocytes (1.2-3.4) 10^3/uL 4.05 H Absolute Monocytes (0.1-0.8) 10^3/uL 0.12 Absolute Eosinophils (0.0-0.7) 10^3/uL 0.00 Absolute Basophils (0.0-0.2) 10^3/uL 0.00 RBC Morphology See Below Polychromasia Present Hypochromasia 1+ Basophilic Stippling Present Anisocytosis 2+ Microcytosis 2+ PT (9.1-11.1) sec 10.8 INR (0.9-1.1) 1.1 APTT (20.6-30.2) sec 22.1 VBG pH (7.31-7.41) 7.40 VBG pCO2 (41-51) mmHg 40 L VBG pO2 mmHg 43 VBG HCO3 (23-28) mmol/L 25 VBG Total CO2 (24-29) mmol/L 24 VBG O2 Saturation % 78 VBG Base Excess (-2-3) mmol/L 0 VBG Lactate (<or=2.0) mmol/L 2.5 H* Sodium (136-145) mmol/L 141 Potassium (3.5-5.1) mmol/L 5.2 H Chloride (98-107) mmol/L 105 Carbon Dioxide (21.0-32.0) mmol/L 25.8 Anion Gap (3-11) mmol/L 10.2 BUN (7-18) mg/dL 68 H Creatinine (0.70-1.30) mg/dL 1.7 H Est GFR (CKD-EPI 2020) (mL/min/1.73m2) 42.30 Glucose (74-106) mg/dL 100 Calcium (8.5-10.1) mg/dL 8.6 Total Bilirubin (0.2-1.0) mg/dL 1.3 H AST (15-37) U/L 36 ALT (16-63) U/L 37 Alkaline Phosphatase (46-116) U/L 64 Troponin I (<or=76) ng/L 44 39 NT-Pro-B Natriuret Pep (<300) pg/mL 4650 H Total Protein (6.4-8.2) g/dL 5.8 L Albumin (3.4-5.0) g/dL 2.8 L COVID-19 Source Nasopharynx SARS-CoV-2 (PCR) (Negative) Negative Influenza Type A (PCR) (Negative) Negative Influenza Type B (PCR) (Negative) Negative RSV (PCR) (Negative) Negative Medical Decision Making 74-year-old male with a past medical history of COPD, congestive heart failure on 40 mg of furosemide, chronic prednisone use, atrial fibrillation on Eliquis, chronic kidney disease, coronary artery disease, high cholesterol, and recent admission with discharge on 04/24/2025 for COPD and hypokalemia. [facility], he is on chronic steroids. He was also started on doxycycline at time of discharge. He presents today for shortness of breath. Patient states that he has felt short of breath today. While [facility] he was given a breathing treatment, there was no hypoxemia, and his vital signs are stable. Patient requested that EMS was called. EMS arrived and noted continued stable vital signs and no hypoxemia. Patient requested to go to ED. Patient was brought here and has continued symptoms. He admits to chronic weakness and fatigue. He admits to chronic cough and shortness of breath. No other complaints at this time. No chest pain or pleuritic chest pain. He does admit to some swelling in his lower extremities. No fever or chills. Exam demonstrates slightly rhonchorous breath sounds, +2 pitting edema, but no hypoxemia tachycardia fever or hypotension. No other vital signs abnormalities. With a slight wheeze we will give an additional breathing treatment, will evaluate for evidence of CHF. With his pitting edema we will give 40 of IV Lasix. Will get a chest x-ray monitor closely and reassess. Symptoms inconsistent with PE, he is on Eliquis. No fever to suggest new pneumonia. 4:40 PM X-ray shows no acute process or change. No evidence of severe CHF or pneumonia. Vital signs continue to demonstrate no hypoxemia. Clinically the patient feels much better after a breathing treatment however he still feels quite fatigued. CBC shows evidence of a hemoglobin of 8.1 which is definitely a drop from previous hemoglobins. He has been anemic in the past but this appears to be a slightly acute change. He denies dark or bloody stools. No bloody stools here in the ED. He is on chronic steroids, and he is not on any antiacids. I suspect there may be a mild gastric ulcer that could be causing slow hemoglobin drop. However with his numbers greater than 7 I do not see an indication for PRBCs at this time. We will start him on Carafate and Protonix. With his labs showing a slightly elevated potassium of 5.2 I do suspect this is secondary to his potassium supplementation that he has had over the last few days. We will recommend they stop this additional supplement. Creatinine is 1.7, which is certainly around his baseline. proBNP is mildly elevated at 4600. COVID flu and RSV negative. Chest x-ray negative for pneumonia or CHF or other abnormality. I do not see an indication for admission at this time. He does not demonstrate vital sign instability but he does show evidence of chronic weakness. [facility] which is appropriate for this clinical scenario. Additionally he does have PT and OT already. I did contact [facility] and spoke with Trice who is the nursing service administrator for the facility. I discussed my recommendations for repeat hemoglobin check in 48 hours, outpatient EGD, as well as close monitoring by physician/[employer]OUNT[employer] RECEIVABLE EXECUTIVE/PA staff over the next 48 hours to make sure his symptoms do not worsen. Sonia agrees, and will convey this to the practitioners of the facility. If symptoms do worsen this may subsequently represent acute pathology that is not now present and I do recommend prompt return if this occurs. Discussed red flags which to return. I have extensively reviewed the treatment plan and discharge instructions with the patient. I have addressed all patient concerns at this time. The patient was made aware of what symptoms to monitor for that would warrant a return to the emergency department. Discussed the plan with the patient, they demonstrate verbal understanding and agreement with our assessment and plan at this time. The documentation in this chart was dictated using Crunched dictation software. Please excuse any dictation errors. Quality:SDOH Health Related Social Needs: Health related social needs risk of homeless transpo insecurity house/econ circumstance lonely/isolated education Health related social needs details not worried about housing PFSH All Active Problems (Updated 04/30/25 @ 16:46 by Manuel Nguyen DO) Weakness (Acute) Mild congestive heart failure (Acute) Breath shortness (Acute) Anxiety (Chronic) Deficit in activities of daily living (ADL) (Acute) GERD (gastroesophageal reflux disease) (Chronic) Atrial fibrillation (Chronic) Steroid dependence (Chronic) Acute exacerbation of CHF (congestive heart failure) (Acute) Lung nodule (Acute) BPH w urinary obs/LUTS (Acute) Microcytic anemia (Chronic) UTI (urinary tract infection) (Acute) Presence of stent in coronary artery in patient with coronary artery disease (Acute) Diastolic CHF (Chronic) Pneumonia (Acute) Medical History HTN (hypertension) Chronic renal failure Non-STEMI (non-ST elevated myocardial infarction) History of tobacco use Hypospadias Chronic kidney disease, stage 3 Peripheral arterial occlusive disease Constipation Depression Lower urinary tract symptoms (LUTS) Exertional dyspnea Pulmonary hypertension due to left heart disease Coronary artery disease Diastolic heart failure Lower back pain Dysuria Anemia, iron deficiency Heartburn Screening for colon cancer Nocturia Urinary frequency Prediabetes Hypoxemia Multiple pulmonary nodules Lumbar back pain with radiculopathy affecting lower extremity Former smoker Congestion of nasal sinus CKD (chronic kidney disease) CHF (congestive heart failure) Alcoholism in recovery Hypospadias in male COPD (chronic obstructive pulmonary disease) Hyperlipidemia Essential hypertension Surgical History History of phacoemulsification of cataract of both eyes with intraocular lens implantation History of tonsillectomy Family History Father Throat cancer Heart disease Myocardial infarction Brother Heart disease Status post coronary stents Social History Smoking/Tobacco Use Status: Former Tobacco Use Quit Date: 01/11/17 Smoking risk assessment performed?: Yes Alcohol Intake: former Year quit: 2017 Details: Former alcoholic up to 2 cases of gin per month Drug use: Never Substance use type: does not use Housing: house Number of Children: 0 Pets and animals: Yes Pets and animals: dog(s) What is your relationship status?: Panel score (0-1 are the most socially isolated patients): 1 Do you feel safe at home: Yes Do you feel safe in your relationship?: Yes
== END 2025-04-30 17:08 | disposition home or self-care (01) ==
PROVIDERS: Emergency Provider Student in an Organized Health Care Education/Training Program; PCP Family Medicine
DX: R06.02 Shortness of breath (principal); I25.10 Atherosclerotic heart disease of native coronary artery without angina pectoris; I25.2 Old myocardial infarction; E11.22 Type 2 diabetes mellitus with diabetic chronic kidney disease; I13.0 Hypertensive heart and chronic kidney disease with heart failure and stage 1 through stage 4 chronic kidney disease, or unspecified chronic kidney disease; N18.30 Chronic kidney disease, stage 3 unspecified; I50.32 Chronic diastolic (congestive) heart failure; E78.5 Hyperlipidemia, unspecified; I48.91 Unspecified atrial fibrillation; Z95.5 Presence of coronary angioplasty implant and graft; Z87.891 Personal history of nicotine dependence
CPT/HCPCS: 36415; 80053; 82805; 87637; 94640; 96374; 99285; 71045; 83605; 83880; 84484; 85025; 85610; 85730; 99284; J1938; J7620

== ENCOUNTER 2025-05-03 01:56 | Emergency (ER) | payer MEDICARE, SELFPAY ==
[2025-05-03] VITALS (21 sets, daily range): BP systolic 103–129; BP diastolic 42–62; PULSE 68–91; RESP 17–25; O2SAT 97–98
--- NOTE | 2025-05-03 02:05 | W.ED.GENAD ---
Discharge Plan Disposition Patient Disposition: [facility](SNF) Condition: Good Discharge Details Clinical Impression: Shortness of breath, Anemia, CHF (congestive heart failure), COPD (chronic obstructive pulmonary disease), Elevated serum creatinine Primary Care Provider: Everardo Malloy ED Provider: Brittany Woods Home Meds and New Rx's Prescriptions: Continued nitroglycerin 0.4 mg tablet, sublingual 0.4 mg SL Q5M PRN rosuvastatin 40 mg tablet 40 mg PO DAILY finasteride 5 mg tablet 5 mg PO DAILY Qty: 90 3RF tamsulosin [Flomax] 0.4 mg capsule 0.8 mg PO DAILY Qty: 180 3RF guaifenesin [Mucinex] 600 mg tablet extended release 12hr 600 mg PO BID PRN Trelegy Ellipta 100-62.5-25 mcg blister with device 1 inh inhalation DAILY clonidine HCl 0.1 mg tablet 0.1 mg PO QHS nicotine 21 mg/24 hr patch 24 hour 1 patch transdermal DAILY carvedilol 12.5 mg Tablet 12.5 mg PO BID aspirin [Aspir-81] 81 mg Tablet,Delayed Release (Dr/Ec) 81 mg PO DAILY doxycycline hyclate 100 mg capsule 100 mg PO BID Qty: 8 0RF prednisone 20 mg tablet 40 mg PO DAILY Qty: 11 0RF Rx Instructions: take 40 mg for 3 days Then 20 mg for 3 days then 10 mg for 3 days then stop Eliquis 5 mg tablet 5 mg PO BID Qty: 60 0RF torsemide 20 mg Tablet 40 mg PO DAILY Qty: 0 0RF docusate sodium [Colace] 100 mg Capsule 100 mg PO BID Qty: 60 0RF budesonide-formoterol [Symbicort] 80-4.5 mcg/actuation Hfa Aerosol Inhaler 2 inh inhalation BID Qty: 10.2 0RF Spiriva Respimat 2.5 mcg/actuation Mist 2 puff inhalation Q12H Qty: 4 0RF lorazepam 0.5 mg Tablet 0.5 mg PO BID Qty: 10 0RF polyethylene glycol 3350 17 gram Powder In Packet 17 g PO DAILY PRNQty: 30 0RF pantoprazole 40 mg Tablet,Delayed Release (Dr/Ec) 40 mg PO BID Qty: 0 0RF pantoprazole [Protonix] 40 mg tablet,delayed release (DR/EC) 40 mg PO DAILY Qty: 60 0RF sucralfate [Carafate] 1 gram tablet 1 g PO BID Qty: 60 0RF dexamethasone 4 mg tablet 4 mg PO BID Patient Comments: TAKE 2 TABLETS BY MOUTH TWO TIMES A DAY FOR 5 DAYS, 2 TABLETS IN THE MORNING AND 1 TABLET IN THE EVENING FOR 5 DAYS, 1&1/2 TABLETS IN THE MO albuterol sulfate [ProAir HFA] 200 PUFF HFA aerosol inhaler 2 puff Inhalation Q4H PRN PRNQty: 1 0RF amlodipine 10 mg Tablet 10 mg PO DAILY polyethylene glycol 3350 [GlycoLax] 17 gram/dose Powder 17 g PO DAILY PRN ipratropium-albuterol 0.5 mg-3 mg(2.5 mg base)/3 mL solution for nebulization 3 ml IH Q6H Qty: 90 0RF Discharge Instructions Instructions: Shortness of Breath, Adult ED Additional Instructions: Continue all your home medications. Call your primary care doctor in the morning to schedule an appointment for within the following 48 hours to followup on your visit here. At that visit discuss your anemia, kidney function, heart failure, and shortness of breath. Return to the emergency department for new or worsening symptoms including chest pain, new/different/worse shortness of breath, feeling like you are going to pass out, vomiting blood, blood in your stool, tarry black stool, or if you have any other concerns. Discharge Data Discharge Date/Time-TO BE ENTERED AT DEPARTURE: 05/03/25 04:36 HPI General Mode of arrival: EMS. Date/Time Provider Initiated Documentation: 05/03/25 01:56. Information obtained by: patient, EMS and old records reviewed (most recent ED visit note). HPI Narrative: 74yo M with hx COPD, CHF, CAD, afib on eliquis, CKD, hospital admission 04/24 for COPD exacerbation and ED visit 04/30 for shortness of breath, presenting for shortness of breath. Feels like he cannot get a satisfying breath in; this started this evening and has been worsening overnight. No clear provoking factor; not positional or exertional. States he is on baseline 2-[facility]L [facility]for [facility] satting 99% on these settings. He does have a cough which he states is chronic and unchanged. No chest pain. No pleuritic pain. No fevers. Otherwise in his usual state of health. Related Data Home Medications ?Medication ?Instructions ?Recorded ?Confirmed albuterol sulfate 90 mcg/actuation 2 puff inhalation Q4H PRN PRN #1 04/29/17 05/03/25 aerosol inhaler (ProAir HFA) inh amlodipine 10 mg tablet 10 mg PO DAILY 02/19/19 05/03/25 ipratropium 0.5 mg-albuterol 3 mg 3 ml inhalation Q6H #90 mL 02/19/19 05/03/25 (2.5 mg base)/3 mL nebulization soln polyethylene glycol 3350 17 17 g PO DAILY PRN 02/19/19 05/03/25 gram/dose oral powder (GlycoLax) aspirin 81 mg tablet,delayed 81 mg PO DAILY 05/10/19 05/03/25 release (Aspir-) carvedilol 12.5 mg tablet 12.5 mg PO BID 05/10/19 05/03/25 nitroglycerin 0.4 mg sublingual 0.4 mg sublingual Q5M PRN 12/04/19 05/03/25 tablet rosuvastatin 40 mg tablet 40 mg PO DAILY 12/04/19 05/03/25 finasteride 5 mg tablet 5 mg PO DAILY #90 tabs 11/08/21 05/03/25 tamsulosin 0.4 mg capsule (Flomax) 0.8 mg (2 x 0.4 mg) PO DAILY #180 11/08/21 05/03/25 caps clonidine HCl 0.1 mg tablet 0.1 mg PO QHS 02/28/23 05/03/25 fluticasone fur. 100 mcg-umeclid 1 inh inhalation DAILY 02/28/23 05/03/25 62.5 mcg-vilant 25 mcg inhalat.powder (Trelegy Ellipta) guaifenesin 600 mg tablet, 600 mg PO BID PRN 02/28/23 05/03/25 extended release 12 hr (Mucinex) nicotine 21 mg/24 hr daily 1 patch transdermal DAILY 02/28/23 05/03/25 transdermal patch apixaban 5 mg tablet (Eliquis) 5 mg PO BID #60 tabs 04/22/25 05/03/25 doxycycline hyclate 100 mg capsule 100 mg PO BID #8 caps 04/22/25 05/03/25 prednisone 20 mg tablet 40 mg (2 x 20 mg) PO DAILY #11 tabs 04/22/25 05/03/25 torsemide 20 mg tablet 40 mg (2 x 20 mg) PO DAILY #0 tabs 04/22/25 05/03/25 budesonide-formoterol HFA 80 2 inh inhalation BID #10.2 grams 04/24/25 05/03/25 mcg-4.5 mcg/actuation aerosol inhaler (Symbicort) docusate sodium 100 mg capsule 100 mg PO BID #60 caps 04/24/25 05/03/25 (Colace) lorazepam 0.5 mg tablet 0.5 mg PO BID #10 tabs 04/24/25 05/03/25 pantoprazole 40 mg tablet,delayed 40 mg PO BID #0 tabs 04/24/25 05/03/25 release polyethylene glycol 3350 17 gram 17 g PO DAILY PRN #30 ea 04/24/25 05/03/25 oral powder packet tiotropium bromide 2.5 2 puff inhalation Q12H #4 grams 04/24/25 05/03/25 mcg/actuation mist for inhalation (Spiriva Respimat) pantoprazole 40 mg tablet,delayed 40 mg PO DAILY #60 tabs 04/30/25 05/03/25 release (Protonix) sucralfate 1 gram tablet (Carafate) 1 g PO BID #60 tabs 04/30/25 05/03/25 dexamethasone 4 mg tablet 4 mg PO BID 05/03/25 05/03/25 Previous Rx's ?Medication ?Instructions ?Recorded albuterol sulfate 90 mcg/actuation 2 puff inhalation Q4H PRN PRN #1 04/29/17 aerosol inhaler (ProAir HFA) inh ipratropium 0.5 mg-albuterol 3 mg 3 ml inhalation Q6H #90 mL 02/19/19 (2.5 mg base)/3 mL nebulization soln finasteride 5 mg tablet 5 mg PO DAILY #90 tabs 11/08/21 tamsulosin 0.4 mg capsule (Flomax) 0.8 mg (2 x 0.4 mg) PO DAILY #180 11/08/21 caps apixaban 5 mg tablet (Eliquis) 5 mg PO BID #60 tabs 04/22/25 doxycycline hyclate 100 mg capsule 100 mg PO BID #8 caps 04/22/25 prednisone 20 mg tablet 40 mg (2 x 20 mg) PO DAILY #11 tabs 04/22/25 torsemide 20 mg tablet 40 mg (2 x 20 mg) PO DAILY #0 tabs 04/22/25 budesonide-formoterol HFA 80 2 inh inhalation BID #10.2 grams 04/24/25 mcg-4.5 mcg/actuation aerosol inhaler (Symbicort) docusate sodium 100 mg capsule 100 mg PO BID #60 caps 04/24/25 (Colace) lorazepam 0.5 mg tablet 0.5 mg PO BID #10 tabs 04/24/25 pantoprazole 40 mg tablet,delayed 40 mg PO BID #0 tabs 04/24/25 release polyethylene glycol 3350 17 gram 17 g PO DAILY PRN #30 ea 04/24/25 oral powder packet tiotropium bromide 2.5 2 puff inhalation Q12H #4 grams 04/24/25 mcg/actuation mist for inhalation (Spiriva Respimat) pantoprazole 40 mg tablet,delayed 40 mg PO DAILY #60 tabs 04/30/25 release (Protonix) sucralfate 1 gram tablet (Carafate) 1 g PO BID #60 tabs 04/30/25 Allergies Allergy/AdvReac Type Severity Reaction Status Date / Time lisinopril AdvReac Unknown low BP, Unverified 05/03/25 02:05 worsening CKD codeine phosphate (From AdvReac constipatio Unverified 05/03/25 02:05 Tylenol-Codeine) n General Stated Complaint: RespSymp DAISY: 3 Review of Systems Narrative: see HPI Exam Narrative Exam Narrative: General: Alert, well appearing, well nourished, in no acute distress. Head: Normocephalic, atraumatic Neck: Trachea midline, ?Neck supple. ENT: ?MMM.? Cardiac: ?RRR, no murmurs appreciated Resp: No respiratory distress. CTAB. Abd: ?Soft, non-distended, nontender : ?No suprapubic tenderness. No CVA tenderness. Extremities: ?No deformities.? 3+ pitting edema symmetric BLE. Neurologic: GCS 15. ? Moves all extremities freely against gravity Course Vital Signs Vital signs: Vital Signs Respiratory Rate 24 05/03/25 01:56 Blood Pressure 110/48 L 05/03/25 01:56 Respiratory Rate 24 05/03/25 01:56 Blood Pressure 110/48 L 05/03/25 01:56 Blood Pressure Position Sitting 05/03/25 01:56 Medical Decision Making 74yo M with hx COPD, CHF, CAD, afib on eliquis, CKD, hospital admission 04/24 for COPD exacerbation and ED visit 04/30 for shortness of breath, presenting for shortness of breath. Described as not being able to get a satisfying breath in; this started this evening and has been worsening overnight. Reports this has been happening more and more frequently lately and seems to become his new normal. Non-toxic on arrival with reassuring vital signs, afebrile. Not overtly septic. Lungs are CTAB with no increased WOB and he is satting well on 2L NC (he reports baseline 2-4L NC). He does have significant pitting edema symmetric BLE. Unlikely pulmonary embolism with no increased hypoxia, tachycardia, pleurtic pain, and patient taking his eliquis as prescribed. Will treat initially with duoneb and 40mg IV lasix for possible COPD and/or CHF excerbation, though his lungs are clear and no increased oxygen requirement. EKG afib, no ST segment or T wave abnormalities to suggest occlusive PR, no concerning changes from prior 04/21/25. CXR independently reviewed, no focal pneumonia or pneumothorax or signficant pulmonary edema on view; radiology read as below with no significant change. Labs reviewed as below, CBC with slight decrease in Hg (7.7 from 8.1; in the absence of acute coronary syndrome or active bleed would not transfuse at this time), CMP with Cr of 1.8 essentially flat from 1.7 on prior labs (though elevated from his baseline), Mg normal,VBG reassuring with acidosis or hypercapneia, BNP elevated at ~6000 which is increased from ~4500 prior, initial troponin 40. Respiratory viral swab negative. Repeat troponin 39; would not further pursue ACS/trend troponin/etc. On reassessment he reports that his breathing feels improved after the duoneb. I reviewed his laboratory findings with him (including BNP, Hg, and Cr) and we discussed his anemia at length. He has had no dark or tarry stool, no ann blood in stool. No recent nosebleeds. No hemetemesis. No abdominal pain and abdomen non-tender. Scattered extremity bruising on exam. Nothing on history or exam to suggest active hemmoraghe. Does not warrant emergent blood transfusion at this time (particularly given risk for volume overload) and is appropriate for outpatient followup for this. With no increase in his oxygen requirement and clear lungs, he does not warrant hospitalization for CHF or COPD excerbations. He is appropriate to followup closely with his PCP for further workup and management. Discharged; discharge instructions and return precautions were reviewed with patient who verbalized undertanding. All questions were answered and he is in agreement with the plan. Imaging Data Radiologic Study: Imaging: X-Ray Radiologist's impression: General: Alert, well appearing, well nourished, in no acute distress. Head: Normocephalic, atraumatic Neck: Trachea midline, ?Neck supple. ENT: ?MMM.? No oropharygeal lesions or exudate. Cardiac: ?RRR, no murmurs appreciated Resp: No respiratory distress. CTAB. Abd: ?Soft, non-distended, nontender : ?No suprapubic tenderness. No CVA tenderness. Extremities: ?No deformities.? No peripheral edema. Neurologic: GCS 15. ? Moves all extremities freely against gravity Lab Data Lab results reviewed: Yes I reviewed the patient's lab results. Labs: Laboratory Tests Range/Units 05/03/25 02:27 WBC (4.4-10.8) 10^3/uL 7.46 RBC (4.36-5.78) 10^6/uL 3.70 L Hgb (13.5-17.5) g/dL 7.7 L Hct (40.0-50.0) % 24.6 L MCV (80-95) fL 67 L MCH (27.0-33.0) pg 20.8 L MCHC (32.0-36.0) % 31.3 L RDW (11.8-14.1) % 22.8 H Plt Count (130-400) 10^3/uL 186 MPV (8.0-11.0) fL 9.6 Immature Gran % See Differential Neutrophils % % 69.0 Band Neutrophils % % 2 Lymphocytes % % 21.0 Atypical Lymphs % % 1 Monocytes % % 4.0 Eosinophils % % 2.0 Basophils % % 0.0 Myelocytes % 1 Nucleated RBC % (0.0-0.3) % 18.0 H Absolute Neutrophils (1.2-6.7) 10^3/uL 5.30 Absolute Lymphocytes (1.2-3.4) 10^3/uL 1.64 Absolute Monocytes (0.1-0.8) 10^3/uL 0.30 Absolute Eosinophils (0.0-0.7) 10^3/uL 0.15 Absolute Basophils (0.0-0.2) 10^3/uL 0.00 RBC Morphology See Below Polychromasia Present Hypochromasia 2+ Poikilocytosis 1+ Anisocytosis 2+ Microcytosis 2+ VBG pH (7.31-7.41) 7.37 VBG pCO2 (41-51) mmHg 50 VBG pO2 mmHg 24 VBG HCO3 (23-28) mmol/L 29 H VBG Total CO2 (24-29) mmol/L 28 VBG O2 Saturation % 35 VBG Base Excess (-2-3) mmol/L 4 H Sodium (136-145) mmol/L 143 Potassium (3.5-5.1) mmol/L 3.9 D Chloride (98-107) mmol/L 105 Carbon Dioxide (21.0-32.0) mmol/L 29.1 Anion Gap (3-11) mmol/L 8.9 BUN (7-18) mg/dL 54 H Creatinine (0.70-1.30) mg/dL 1.8 H Est GFR (CKD-EPI 2020) (mL/min/1.73m2) 39.50 Glucose (74-106) mg/dL 75 Calcium (8.5-10.1) mg/dL 8.6 Magnesium (1.8-2.4) mg/dL 2.2 Total Bilirubin (0.2-1.0) mg/dL 1.4 H AST (15-37) U/L 15 ALT (16-63) U/L 32 Alkaline Phosphatase (46-116) U/L 60 Troponin I (<or=76) ng/L 40 NT-Pro-B Natriuret Pep (<300) pg/mL 5957 H Total Protein (6.4-8.2) g/dL 5.8 L Albumin (3.4-5.0) g/dL 2.7 L Quality:SDOH Health Related Social Needs: Health related social needs risk of homeless transpo insecurity house/econ circumstance lonely/isolated education Health related social needs details not worried about housing PFSH All Active Problems (Updated 05/03/25 @ 04:09 by Brittany Woods MD) Elevated serum creatinine (Acute) COPD (chronic obstructive pulmonary disease) (Chronic) CHF (congestive heart failure) (Chronic) Anemia (Chronic) Shortness of breath (Acute) Weakness (Acute) Mild congestive heart failure (Acute) Breath shortness (Acute) Anxiety (Chronic) Deficit in activities of daily living (ADL) (Acute) GERD (gastroesophageal reflux disease) (Chronic) Atrial fibrillation (Chronic) Steroid dependence (Chronic) Acute exacerbation of CHF (congestive heart failure) (Acute) Lung nodule (Acute) BPH w urinary obs/LUTS (Acute) Microcytic anemia (Chronic) UTI (urinary tract infection) (Acute) Presence of stent in coronary artery in patient with coronary artery disease (Acute) Diastolic CHF (Chronic) Pneumonia (Acute) Medical History HTN (hypertension) Chronic renal failure Non-STEMI (non-ST elevated myocardial infarction) History of tobacco use Hypospadias Chronic kidney disease, stage 3 Peripheral arterial occlusive disease Constipation Depression Lower urinary tract symptoms (LUTS) Exertional dyspnea Pulmonary hypertension due to left heart disease Coronary artery disease Diastolic heart failure Lower back pain Dysuria Anemia, iron deficiency Heartburn Screening for colon cancer Nocturia Urinary frequency Prediabetes Hypoxemia Multiple pulmonary nodules Lumbar back pain with radiculopathy affecting lower extremity Former smoker Congestion of nasal sinus CKD (chronic kidney disease) CHF (congestive heart failure) Alcoholism in recovery Hypospadias in male COPD (chronic obstructive pulmonary disease) Hyperlipidemia Essential hypertension Surgical History History of phacoemulsification of cataract of both eyes with intraocular lens implantation History of tonsillectomy Family History Father Throat cancer Heart disease Myocardial infarction Brother Heart disease Status post coronary stents Social History Smoking/Tobacco Use Status: Former Tobacco Use Quit Date: 01/11/17 Smoking risk assessment performed?: Yes Alcohol Intake: former Year quit: 2016 Details: Former alcoholic up to 2 cases of gin per month Drug use: Never Substance use type: does not use Housing: house Number of Children: 0 Pets and animals: Yes Pets and animals: dog(s) What is your relationship status?: Panel score (0-1 are the most socially isolated patients): 1 Do you feel safe at home: Yes Do you feel safe in your relationship?: Yes
[2025-05-03] MEDS: Albuterol/Ipratropium 3 ML UPD VIAL UPD (02:13)
[2025-05-03] MEDS: Furosemide 40 MG/4 ML VIAL IVP (02:35)
[2025-05-03 02:36] LABS: BE (Venous) 4 mmol/L (-2-3); HCO3 (Venous) 29 mmol/L (23-28); O2 Sat (Venous) 35 %; TCO2 (Venous) 28 mmol/L (24-29); pCO2 (Venous) 50 mmHg (41-51); pH (Venous) 7.37 (7.31-7.41); pO2 (Venous) 24 mmHg
[2025-05-03 02:41] LABS: Abs Immature Grans 0.32 10^3/uL (0.0-0.06); HCT 24.6 % (40.0-50.0); HGB 7.7 g/dL (13.5-17.5); MCH 20.8 pg (27.0-33.0); MCHC 31.3 % (32.0-36.0); MCV 67 fL (80-95); MPV 9.6 fL (8.0-11.0); Platelet Count 186 10^3/uL (130-400); RDW 22.8 % (11.8-14.1); RDW-SD 47.2 fL; WBC 7.46 10^3/uL (4.4-10.8)
--- NOTE | 2025-05-03 02:45 | RT.EKG_ITS ---
APPROVED REPORT Exam: Resting ECG Reason for Exam: sob Patient Location: E HR:85 bpm ECG Measurements Heart Rate 85 AXIS MS [id number] P [id number] QRSd 118 QRS 22 QT 406 T 147 QTc 484 Conclusion Atrial fibrillation...V-rate 59-100, irreg A-activity no ST segment or T wave abnormalities to suggest occlusive MT
--- NOTE | 2025-05-03 02:49 | DI.RAD_ITS ---
Exam(s) XR CHEST 2V PA LATERAL EXAM: XR CHEST 2V PA LATERAL CLINICAL HISTORY: short of breath TECHNIQUE: 2D digital imaging was performed of the chest. Two images were obtained. AP and lateral views were obtained. COMPARISON: CR CHEST 2 VIEWS PA,LAT from 04/29/[address] chest PE abd pelvis w from 01/07/2019 CR XR PORTABLE CHEST AP from 02/21/[address] CHEST LUNG CANCER SCREEN from 09/29/2022 CR XR CHEST 2V PA LATERAL from 04/14/2025 CR XR PORTABLE CHEST AP from 04/30/2025 FINDINGS: MEDIASTINUM: Normal. HEART: Within normal limits in size. PULMONARY VASCULATURE: Normal. LUNGS: There is a stable parenchymal calcification in the right middle lobe. No focal consolidating infiltrates are present. PLEURAL SPACE: No pleural effusion or pneumothorax. BONE:Within normal limits for the patient's age. OTHER FINDINGS:Normal. IMPRESSION: 1. No acute pulmonary findings. 2. The preliminary [facility] report was reviewed. DATA REPOSITORY: RADIATION DOSE DELIVERED:
[2025-05-03 02:56] LABS: ALT 32 U/L (16-63); AST 15 U/L (15-37); Albumin 2.7 g/dL (3.4-5.0); Alkaline Phosphatase 60 U/L (46-116); Anion Gap 8.9 mmol/L (3-11); BUN 54 mg/dL (7-18); Bilirubin, Total 1.4 mg/dL (0.2-1.0); CO2 29.1 mmol/L (21.0-32.0); CREATININE 1.8 mg/dL (0.70-1.30); Calcium 8.6 mg/dL (8.5-10.1); Chloride 105 mmol/L (98-107); Glucose 75 mg/dL (74-106); Magnesium 2.2 mg/dL (1.8-2.4); Potassium 3.9 mmol/L (3.5-5.1); Sodium 143 mmol/L (136-145); Total Protein 5.8 g/dL (6.4-8.2)
[2025-05-03 03:05] LABS: Absolute Eosinophil Count 0.15 10^3/uL (0.0-0.7); Absolute Lymphocyte Count 1.64 10^3/uL (1.2-3.4); Atypical Lymphocytes % 1 %; Bands % 2 %; Diff Comment Manual Differential; Myelocytes % 1
[2025-05-03 03:06] LABS: Anisocytosis 2+; Hypochromasia 2+; Microcytosis 2+; Poikilocytes 1+; Polychromasia Present
[2025-05-03 03:14] LABS: NT-proBNP 5957 pg/mL (<300); Troponin I 40 ng/L (<or=76)
--- NOTE | 2025-05-03 03:23 | DI.[facility]_ITS ---
PROCEDURE INFORMATION: Exam: XR Chest Exam date and time: 05/03/2025 2:42 AM Age: 74 years old Clinical indication: Shortness of breath TECHNIQUE: Imaging protocol: Radiologic exam of the chest. Views: 2 views. COMPARISON: CR XR PORTABLE CHEST AP 04/30/2025 2:26 PM. Report not available. FINDINGS: Lungs: Minimal bibasilar scarring/atelectasis. Nodular density projecting over the right lung base, unchanged. Pleural spaces: No large pleural effusion seen. Heart/Mediastinum: Enlarged cardiac silhouette. Bones/joints: No acute abnormality. IMPRESSION: No significant interval change. Dictated and Authenticated by: Rosalee Rueda MD. Orderin Peggy Soto MD
[2025-05-03 03:30] LABS: COVID-19 PCR Negative (Negative); Influenza A PCR Negative (Negative); Influenza B PCR Negative (Negative); RSV PCR Negative (Negative)
[2025-05-03 03:42] LABS: Source Nasopharynx
[2025-05-03 03:58] LABS: Troponin I 39 ng/L (<or=76)
== END 2025-05-03 04:36 | disposition skilled nursing facility (03) ==
PROVIDERS: Emergency Provider Student in an Organized Health Care Education/Training Program; PCP Family Medicine
DX: J44.9 Chronic obstructive pulmonary disease, unspecified (principal); I50.9 Heart failure, unspecified; R79.89 Other specified abnormal findings of blood chemistry; D64.9 Anemia, unspecified; R06.02 Shortness of breath; Z79.01 Long term (current) use of anticoagulants
CPT/HCPCS: 99284 ×2; 96374; 94640; 36415; 80053; 82805; 87637; 93005; 71046; 83735; 83880; 84484; 85025; 93010; J1938; J7620

== ENCOUNTER 2025-06-09 20:04 | Outpatient (REF) | payer MEDICARE, SELFPAY ==
[2025-06-09 21:03] LABS: COVID-19 PCR Negative (Negative); RSV PCR Negative (Negative)
== END 2025-06-09 20:05 | disposition home or self-care (01) ==
LOC: LBN 20:04
PROVIDERS: PCP Family Medicine; Visit Provider Nurse Practitioner Adult Health
DX: J06.9 Acute upper respiratory infection, unspecified (principal)
CPT/HCPCS: 87637

== ENCOUNTER 2025-06-10 15:31 | Outpatient (REF) | payer MEDICARE, SELFPAY ==
[2025-06-10 13:52] LABS: Abs Immature Grans 0.08 10^3/uL (0.0-0.06); HCT 31.6 % (40.0-50.0); HGB 9.7 g/dL (13.5-17.5); Immature Grans % 0.6 %; MCH 21.5 pg (27.0-33.0); MCHC 30.7 % (32.0-36.0); MCV 70 fL (80-95); MPV 9.9 fL (8.0-11.0); Platelet Count 442 10^3/uL (130-400); RBC 4.51 10^6/uL (4.36-5.78); RDW 18.9 % (11.8-14.1); RDW-SD 45.4 fL; WBC 13.77 10^3/uL (4.4-10.8)
[2025-06-10 14:10] LABS: Anion Gap 7.2 mmol/L (3-11); BUN 29 mg/dL (7-18); CO2 28.8 mmol/L (21.0-32.0); Calcium 9.3 mg/dL (8.5-10.1); Chloride 105 mmol/L (98-107); Estimated GFR 64.25 (mL/min/1.73m2); Glucose 81 mg/dL (74-106); NT-proBNP 4827 pg/mL (<300); Potassium 4.2 mmol/L (3.5-5.1); Sodium 141 mmol/L (136-145)
[2025-06-10 14:43] LABS: Microcytosis 2+; Polychromasia Present
== END 2025-06-10 15:32 | disposition home or self-care (01) ==
LOC: LBN 15:31
PROVIDERS: PCP Family Medicine; Visit Provider Nurse Practitioner Adult Health
DX: N18.31 Chronic kidney disease, stage 3a (principal)
CPT/HCPCS: 80048; 83880; 85025

== ENCOUNTER 2025-06-13 07:30 | Inpatient (IN) | payer MEDICARE, SELFPAY ==
[2025-06-13] VITALS (43 sets, daily range): BP systolic 90–177; BP diastolic 45–144; PULSE 71–121; RESP 18–55; TEMP 36.5–38; O2SAT 82–97
--- NOTE | 2025-06-13 07:30 | RT.EKG_ITS ---
APPROVED REPORT Exam: Resting ECG Reason for Exam: syncope, fall Patient Location: E HR:78 bpm ECG Measurements Heart Rate 78 AXIS RI 50 P 0 QRSd 107 QRS 68 QT 399 T -79 QTc 455 Conclusion Sinus rhythm...normal P axis, V-rate 60- 99
--- NOTE | 2025-06-13 07:45 | DI.RAD_ITS ---
Exam(s) XR FEMUR LT EXAM: XR FEMUR LT CLINICAL HISTORY: fall, pain. TECHNIQUE: 2D digital imaging was performed. COMPARISON: No exams were available for comparison FINDINGS: Two views No evidence of fracture of the left hip and femur. There does not appear to be a knee joint effusion. Bone density is normal. No osseous lesions. No obvious degenerative changes in the hip joint. Some vascular calcifications noted the popliteal artery. IMPRESSION: No acute osseous findings in the left hip and femur. DATA REPOSITORY: RADIATION DOSE DELIVERED:
[2025-06-13] MEDS: Normal Saline 250 ML 500 ML IV (08:14)
[2025-06-13 08:22] LABS: Abs Immature Grans 0.37 10^3/uL (0.0-0.06); HCT 33.2 % (40.0-50.0); HGB 10.1 g/dL (13.5-17.5); MCH 21.3 pg (27.0-33.0); MCHC 30.4 % (32.0-36.0); MCV 70 fL (80-95); MPV 10.0 fL (8.0-11.0); Platelet Count 443 10^3/uL (130-400); RBC 4.74 10^6/uL (4.36-5.78); RDW 17.8 % (11.8-14.1); RDW-SD 43.3 fL
[2025-06-13 08:44] LABS: WBC 34.34 10^3/uL (4.4-10.8)
[2025-06-13 08:45] LABS: Immature Grans % 0.0 %; RBC Morphology Normal
[2025-06-13 08:50] LABS: ALT 16 U/L (16-63); AST 13 U/L (15-37); Albumin 3.1 g/dL (3.4-5.0); Alkaline Phosphatase 64 U/L (46-116); Anion Gap 12.2 mmol/L (3-11); BUN 36 mg/dL (7-18); Bilirubin, Total 2.2 mg/dL (0.2-1.0); CO2 25.8 mmol/L (21.0-32.0); Calcium 8.8 mg/dL (8.5-10.1); Chloride 101 mmol/L (98-107); Estimated GFR 37.02 (mL/min/1.73m2); Glucose 117 mg/dL (74-106); Magnesium 2.0 mg/dL (1.8-2.4); NT-proBNP 9159 pg/mL (<300); Potassium 4.1 mmol/L (3.5-5.1); Sodium 139 mmol/L (136-145); Total Protein 7.1 g/dL (6.4-8.2); Troponin I 61 ng/L (<or=76)
--- NOTE | 2025-06-13 09:02 | DI.RAD_ITS ---
Exam(s) XR CHEST 2V PA LATERAL EXAM: XR CHEST 2V PA LATERAL CLINICAL HISTORY: Chest pain. TECHNIQUE: 2D digital imaging was performed. COMPARISON: CR,XR XR CHEST 2V PA LATERAL from 05/03/2025 FINDINGS: 2 views: Mild cardiomegaly. The mediastinum is not widened. There is larger of infiltrate in the right upper lobe. Mildly increased markings in left lower lobe noted. No large pleural effusions although cannot exclude small right pleural effusion given that the right costophrenic angle is not included in the field of view. IMPRESSION: Large right upper lobe infiltrate. No large effusions evident DATA REPOSITORY: RADIATION DOSE DELIVERED:
--- NOTE | 2025-06-13 09:03 | DI.RAD_ITS ---
Exam(s) XR PELVIS AP EXAM: XR PELVIS AP CLINICAL HISTORY: fall, pain. TECHNIQUE: 2D digital imaging was performed. COMPARISON: No exams were available for comparison FINDINGS: Single AP view No evidence of pelvic nor hip fractures. No diastasis of these SI joints and symphysis pubis. No obvious degenerative changes in the hips. IMPRESSION: No evidence of pelvic nor hip fracture. DATA REPOSITORY: RADIATION DOSE DELIVERED:
[2025-06-13] MEDS: Albuterol/Ipratropium 3 ML UPD VIAL UPD ×2 (09:19→20:42)
--- NOTE | 2025-06-13 09:30 | DI.CT_ITS ---
Exam(s) CT CHEST W EXAM: CT CHEST W CLINICAL HISTORY: cough, infiltrate on right upper lobe. TECHNIQUE: Multi planar reconstructions were performed. CONTRAST MATERIAL: Omnipaque 350; 70 cc COMPARISON: CT CT CHEST WO from 02/27/2024 FINDINGS: CHEST: LUNGS: There is a large no infectious appearing infiltrate involving the right upper lobe, the dense is part of which corresponds to what is seen on chest x- ray. This causes bulging of the major fissure posteriorly. Milder infiltrate is noted in the posterior and lateral basal segments of the right lower lobe. There is no prominent mucus in the right mainstem bronchus and proximal divisions nor within trachea. There is also a pleural base partially calcified nodular mass in the anterior segment of the right upper lobe which measures 2.7 by 1.4 cm. This is unchanged from CT scan of February 2024. Adjacent to this is a 1.2 cm separate noncalcified nodular infiltrate which was not previously present. There is also mild infiltrate in the posterior and lateral basal segments of the right lower lobe. The opposite-left lung is clear and there is no pleural fluid on the left side. MEDIASTINUM: There is no gross hilar adenopathy. A few minimally prominent lymph nodes are noted in the right paratracheal region CARDIAC: Heart size is normal. There is minimal thickening of the anterior pericardium. There is no large pericardial effusion..Caliber of the thoracic aorta is within normal limits. VISUALIZED UPPER ABDOMEN:There are no significant adrenal masses. The left kidney is atrophic. Cholelithiasis is noted. OSSEOUS: No significant osseous lesions.No fractures. IMPRESSION: 1. There is a large infiltrate in the right upper lobe with bulging of the major fissure. The most confluent part of this infiltrate is in the right sub apical region. There is presently no cavitation nor rib destruction and there is no associated pleural effusion at this time. There is also mild infiltrate in the posterior basal segment of the right lower lobe. There are no pleural effusions. 2. There is again noted a pleural based nodular density in the anterior aspect of the right upper lobe measuring approximately 2.7 x 1.4 cm. Adjacent to this is a smaller noncalcified nodule measuring 1.2 cm. 3. The opposite-left lung is clear. 4. Lowermost images of this chest study reveal cholelithiasis and an atrophic left kidney. These findings were also evident on CT scan of February 2024. Findings discussed by phone with the hospitalist nurse-practitioner 06/13/2025 at 12:55 p.m. RADIATION DOSE DELIVERED: 342.54mGy.cm Total DLP DATA REPOSITORY: All CT scans at this facility are submitted to the National Radiology Data Registry (NRDR) Dose Index Registry (DIR) with the [employer] ([employer]). RADIATION OPTIMIZATION: All CT scans at this facility use at least one of these dose optimization techniques: automated exposure control; mA and/or kV adjustment per patient size (includes targeted exams where dose is matched to clinical indication); or iterative reconstruction.
--- NOTE | 2025-06-13 09:30 | DI.CT_ITS ---
Exam(s) CT HEAD WO EXAM: CT HEAD WO CLINICAL HISTORY: mulitple falls, headaches. TECHNIQUE: Imaging Protocol: Axial computed tomography images with coronal and sagittal reformatted images were created and reviewed COMPARISON: No exams were available for comparison FINDINGS: There are no skull fractures. There is some mild mucosal thickening noted in the maxillary sinuses and there are surgical defects in the medial schneider of both maxillary sinuses. There are no fluid levels within the maxillary sinuses nor within the other paranasal sinuses and mastoid air cells. The sphenoid and frontal sinuses are clear There is no evidence of intracranial hemorrhage, mass effect, or shift of midline structures. There are no extra-axial fluid collections. The ventricles are not enlarged or shifted and there is no blood within the ventricular system nor within the basal cisterns. There is relatively symmetrical periventricular hypodensity consistent with chronic small vessel disease. There is some vascular calcification noted both vertebral arteries at the skull base as well as mural calcification within the internal carotid arteries at the skull base-carotid canals and within the intra cavernous components of the ICAs. IMPRESSION: Chronic small-vessel white matter ischemic changes. Vascular calcification noted at the skull base in both the anterior posterior circulation. No evidence of intracranial hemorrhage and no evidence of obvious acute infarct. Paranasal sinus findings as above, including evidence of previous endoscopic sinus surgery. RADIATION DOSE DELIVERED: 945.48mGy.cm Total DLP DATA REPOSITORY: All CT scans at this facility are submitted to the National Radiology Data Registry (NRDR) Dose Index Registry (DIR) with the [employer] (A[employer]). RADIATION OPTIMIZATION: All CT scans at this facility use at least one of these dose optimization techniques: automated exposure control; mA and/or kV adjustment per patient size (includes targeted exams where dose is matched to clinical indication); or iterative reconstruction.
--- NOTE | 2025-06-13 09:43 | W.ED.GENAD ---
Discharge Plan Disposition Patient Disposition: Admit to [facility] Condition: Critical Discharge Details Clinical Impression: Pneumonia, Acute exacerbation of chronic heart failure, Acute exacerbation of chronic obstructive pulmonary disease, CARLOS MANUEL (acute kidney injury), Sepsis Admit Date/Time: 06/13/25 10:56 Admit Provider: Everardo Anne Attending Provider: Everardo Anne Primary Care Provider: Everardo Malloy ED Provider: Agus Sheridan Discharge Data Discharge Date/Time-TO BE ENTERED AT DEPARTURE: 06/13/25 11:36 HPI General Mode of arrival: EMS. Date/Time Provider Initiated Documentation: 06/13/25 07:54. Limitations to Documentation: no limitations. Information obtained by: patient and EMS. HPI Narrative: HISTORY OF PRESENT ILLNESS Patient with COPD, CHF, atrial fibrillation, hypertension, chronic renal failure, coronary artery disease, chronic kidney disease, and pulmonary hypertension due to left heart disease presenting with a fall. Last night at 2300 hours, patient fell due to lightheadedness while walking. He did not hit his head. He sat down three times due to leg weakness and felt winded, a symptom leading to two previous ER visits. This morning, he felt well upon waking but experienced sudden weakness and slipped when he sat up. No loss of consciousness. Reports hip pain but no head injury or numbness. Also reports nausea, dizziness, and headaches for the past two days, primarily at night. Did not take medications this morning but did yesterday. No abdominal pain. Patient has been residing across the street at [facility] for two months due to age-related issues and has had three hospital admissions for breathing difficulties. On oxygen therapy most of the time, with recent increase to 3 from 2.5. Related Data Home Medications ?Medication ?Instructions ?Recorded ?Confirmed nitroglycerin 0.4 mg sublingual 0.4 mg sublingual Q5M PRN 12/04/19 06/13/25 tablet guaifenesin 600 mg tablet, 600 mg PO BID PRN 02/28/23 06/13/25 extended release 12 hr (Mucinex) nicotine 21 mg/24 hr daily 1 patch transdermal DAILY 02/28/23 06/13/25 transdermal patch apixaban 5 mg tablet (Eliquis) 5 mg PO BID #60 tabs 04/22/25 06/13/25 polyethylene glycol 3350 17 gram 17 g PO DAILY PRN #30 ea 04/24/25 06/13/25 oral powder packet pantoprazole 40 mg tablet,delayed 40 mg PO DAILY #60 tabs 04/30/25 06/13/25 release (Protonix) oxycodone 5 mg tablet 5 mg PO Q4H PRN 05/14/25 06/13/25 acetaminophen 325 mg capsule 325 mg PO Q6H PRN 06/13/25 06/13/25 carvedilol 25 mg tablet 25 mg PO DAILY 06/13/25 06/13/25 docusate sodium 100 mg capsule 100 mg PO BID PRN 06/13/25 06/13/25 (Colace) ipratropium 0.5 mg-albuterol 3 mg 3 ml inhalation Q4H 06/13/25 06/13/25 (2.5 mg base)/3 mL nebulization soln lorazepam 0.5 mg tablet (Ativan) 0.5 mg PO Q6H PRN 06/13/25 06/13/25 prednisolone 5 mg tablet 10 mg PO QDAY 06/13/25 06/13/25 (Millipred) torsemide 20 mg tablet 20 mg PO DAILY 06/13/25 06/13/25 venlafaxine 75 mg capsule,extended 75 mg PO DAILY 06/13/25 06/13/25 release 24 hr Previous Rx's ?Medication ?Instructions ?Recorded apixaban 5 mg tablet (Eliquis) 5 mg PO BID #60 tabs 04/22/25 polyethylene glycol 3350 17 gram 17 g PO DAILY PRN #30 ea 04/24/25 oral powder packet pantoprazole 40 mg tablet,delayed 40 mg PO DAILY #60 tabs 04/30/25 release (Protonix) Allergies Allergy/AdvReac Type Severity Reaction Status Date / Time lisinopril AdvReac Unknown low BP, Unverified 05/03/25 02:05 worsening CKD codeine phosphate (From AdvReac constipatio Unverified 05/03/25 02:05 Tylenol-Codeine) n General Stated Complaint: Chest Pain DAISY: 3 Review of Systems All systems reviewed & are unremarkable except as noted in HPI and below Constitutional Constitutional: Denies fever(s) Exam Const General: cooperative and no acute distress HENMT Mouth: mucous membranes dry Eyes Conjunctivae: normal conjunctivae Sclera: normal sclerae Neck Neck: trachea midline and supple Resp Effort & Inspection: labored Auscultation: diminished lung sounds bilaterally, no rales, rhonchi (Scattered) and no wheezes Cardio Rate: regular rate and not tachycardic Rhythm: regular rhythm GI Palpation: soft, not firm, no guarding, no masses, not rigid and nontender Skin General skin exam: no rashes or lesions noted Neuro General: patient alert, patient awake, patient oriented x3 and tone normal Extrem General: edema Laterality: bilateral (1+ pitting up shins) Psych Appearance: grossly normal Mental Status: mental status grossly normal Course Vital Signs Vital signs: Vital Signs Temperature 36.9 C 06/13/25 07:33 Pulse 79 06/13/25 07:33 Respiratory Rate 18 06/13/25 07:33 Blood Pressure 155/73 H 06/13/25 07:33 Pulse Oximetry 96 06/13/25 07:33 Temperature 36.9 C 06/13/25 07:33 Temperature Source Tympanic 06/13/25 07:33 Pulse 79 06/13/25 08:32 Pulse 81 06/13/25 08:01 Respiratory Rate 27 H 06/13/25 08:01 Respiratory Effort Normal, Short of Breath 06/13/25 08:35 Respiratory Depth Normal 06/13/25 08:35 Respiratory Pattern Normal 06/13/25 08:35 Blood Pressure 155/73 H 06/13/25 08:32 Blood Pressure Mean 84 06/13/25 08:01 Pulse Oximetry 97 06/13/25 07:55 Oxygen Delivery Method Nasal Cannula 06/13/25 07:33 Oxygen Flow Rate 3 06/13/25 07:33 Lab/Test Results Lab/Test Results: 06/13/25 09:00 Blood Blood Culture - Pending 06/13/25 09:00 Blood Blood Culture - Pending Laboratory Tests Range/Units 06/13/25 08:00 WBC (4.4-10.8) 10^3/uL 34.34 H* RBC (4.36-5.78) 10^6/uL 4.74 Hgb (13.5-17.5) g/dL 10.1 L Hct (40.0-50.0) % 33.2 L MCV (80-95) fL 70 L MCH (27.0-33.0) pg 21.3 L MCHC (32.0-36.0) % 30.4 L RDW (11.8-14.1) % 17.8 H Plt Count (130-400) 10^3/uL 443 H MPV (8.0-11.0) fL 10.0 Immature Gran % % 0.0 Neutrophils % % 86.0 Lymphocytes % % 11.0 Monocytes % % 3.0 Eosinophils % % 0.0 Basophils % % 0.0 Nucleated RBC % (0.0-0.3) % 1.0 H Absolute Neutrophils (1.2-6.7) 10^3/uL 29.53 H Absolute Lymphocytes (1.2-3.4) 10^3/uL 3.78 H Absolute Monocytes (0.1-0.8) 10^3/uL 1.03 H Absolute Eosinophils (0.0-0.7) 10^3/uL 0.00 Absolute Basophils (0.0-0.2) 10^3/uL 0.00 RBC Morphology Normal Sodium (136-145) mmol/L 139 Potassium (3.5-5.1) mmol/L 4.1 Chloride (98-107) mmol/L 101 Carbon Dioxide (21.0-32.0) mmol/L 25.8 Anion Gap (3-11) mmol/L 12.2 H BUN (7-18) mg/dL 36 H Creatinine (0.70-1.30) mg/dL 1.9 H Est GFR (CKD-EPI 2020) (mL/min/1.73m2) 37.02 Glucose (74-106) mg/dL 117 H Calcium (8.5-10.1) mg/dL 8.8 Magnesium (1.8-2.4) mg/dL 2.0 Total Bilirubin (0.2-1.0) mg/dL 2.2 H AST (15-37) U/L 13 L ALT (16-63) U/L 16 Alkaline Phosphatase (46-116) U/L 64 Troponin I (<or=76) ng/L 61 NT-Pro-B Natriuret Pep (<300) pg/mL 9159 H Total Protein (6.4-8.2) g/dL 7.1 Albumin (3.4-5.0) g/dL 3.1 L Medical Decision Making ASSESSMENT AND PLAN Initial Assessment: 74-year-old male with multiple medical problems here from care home after fall due to lightheadedness and leg weakness. New left hip pain. Dizziness with significant blood pressure drop upon standing. Labs show leukocytosis of 34,000, elevated BNP at 9000. Increased work of breathing. Appears dehydrated with dry tongue and poor skin turgor. Patient is saturating in the low 90s on supplemental oxygen. He is mildly hypertensive while lying flat and has significant drop in blood pressure upon sitting and standing. He is afebrile. Differential Diagnosis: - Pneumonia: Elevated WBC and worsening infiltrate on chest x-ray. Antibiotic coverage initiated. Blood cultures sent. - CHF: Elevated BNP at 9000. On torsemide for pitting edema. - Hypovolemia: Significant blood pressure drop upon standing. Light fluid bolus administered in 250 increments. - Hip fracture: New hip pain. X-rays showed no acute osseous findings or evidence of fracture. ED Course: - DuoNeb for increased work of breathing. - Screening EKG: Sinus rhythm 78 bpm, Q waves with probable old anterior septal infarct, no STEMI. - Chest x-ray: Mild cardiomegaly, larger infiltrate of right upper lobe, mildly increased markings of left lower lobe, no large pleural effusions, cannot exclude small right pleural effusion. - X-ray of left femur: No acute osseous findings. - X-ray of pelvis: No evidence of pelvic or hip fracture. - Light fluid bolus administered -250 mL - CT of chest planned for better definition of infiltrates. - Patient meets sepsis criteria. Antibiotic coverage initiated. Given lung disease, concern for potential pseudomonal infection. Will initiate coverage with cefepime 2 g as well as azithromycin 500 mg IV. - Blood cultures sent. - Plan to check VBG - Consider tuberculosis, will send QuantiFERON test, will initiate airborne precaution. - 1015 --to Dr. Anne, on-call hospitalist, discussed ED presentation and course, he will admit the patient. Care transitioned at this time. Final Assessment: Fall due to lightheadedness and leg weakness. New hip pain -suspect contusion secondary to fall. Dizziness with significant blood pressure drop upon standing. Patient is dehydrated. Labs show leukocytosis of 34,000, elevated BNP at 9000. Increased work of breathing. Concern for pneumonia given increasing infiltrates. Consider tuberculosis. I am also concerned about acute COPD and CHF exacerbation. Clinical Impression: - Pneumonia, consider tuberculosis - CHF acute exacerbation - COPD acute exacerbation - Hypovolemia - Left hip contusion Disposition: - Admission for further treatment. This document was written with the assistance of YASMINE Caal. The patient consented to its use. Lab Data Lab results reviewed: Yes I reviewed the patient's lab results. Quality:SDOH Health Related Social Needs: Health related social needs risk of homeless transpo insecurity house/econ circumstance lonely/isolated education Health related social needs details not worried about housing Critical Care Time Critical Care Time Critical Care Time: Yes Total Critical Care Time: 40 Attestation: Due to a high probability of clinically significant, life threatening deterioration, the patient required my highest level of preparedness to intervene emergently and I personally spent this critical care time directly and personally managing the patient. This critical care time included obtaining a history; examining the patient; pulse oximetry; ordering and review of studies; arranging urgent treatment with development of a management plan; evaluation of patient's response to treatment; frequent reassessment; and, discussions with other providers. This critical care time was performed to assess and manage the high probability of imminent, life-threatening deterioration that could result in multi-organ failure. It was exclusive of separately billable procedures and treating other patients and teaching time. Please see MDM section and the rest of the note for further information on patient assessment and treatment. PFSH All Active Problems (Updated 06/13/25 @ 11:34 by Kat Patton APRN) Acute kidney injury superimposed on stage 3a chronic kidney disease (Acute) Severe sepsis (Acute) Sepsis (Acute) CARLOS MANUEL (acute kidney injury) (Acute) Acute exacerbation of chronic obstructive pulmonary disease (Acute) Acute exacerbation of chronic heart failure (Acute) DNR (do not resuscitate) (Acute) As of 05/13/2025: Code status frequently changing. As of 05/13/2025: DNR, +trial of intubation, transfer and treat. Palliative care patient (Acute) Advanced care planning/counseling discussion (Acute) Anxiety (Chronic) Deficit in activities of daily living (ADL) (Acute) GERD (gastroesophageal reflux disease) (Chronic) Atrial fibrillation (Chronic) Steroid dependence (Chronic) Acute exacerbation of CHF (congestive heart failure) (Acute) Lung nodule (Acute) BPH w urinary obs/LUTS (Acute) Microcytic anemia (Chronic) UTI (urinary tract infection) (Acute) Presence of stent in coronary artery in patient with coronary artery disease (Chronic) Diastolic CHF (Chronic) Pneumonia (Acute) Medical History HTN (hypertension) Chronic renal failure Non-STEMI (non-ST elevated myocardial infarction) History of tobacco use Hypospadias Chronic kidney disease, stage 3 Peripheral arterial occlusive disease Constipation Depression Lower urinary tract symptoms (LUTS) Exertional dyspnea Pulmonary hypertension due to left heart disease Coronary artery disease Diastolic heart failure Lower back pain Dysuria Anemia, iron deficiency Heartburn Screening for colon cancer Nocturia Urinary frequency Prediabetes Hypoxemia Multiple pulmonary nodules Lumbar back pain with radiculopathy affecting lower extremity Former smoker Congestion of nasal sinus CKD (chronic kidney disease) CHF (congestive heart failure) Alcoholism in recovery Hypospadias in male COPD (chronic obstructive pulmonary disease) Hyperlipidemia Essential hypertension Surgical History History of phacoemulsification of cataract of both eyes with intraocular lens implantation History of tonsillectomy Family History Father Throat cancer Heart disease Myocardial infarction Brother Heart disease Status post coronary stents Social History Smoking/Tobacco Use Status: Former Tobacco Use Quit Date: 01/11/17 Smoking risk assessment performed?: Yes Alcohol Intake: former Year quit: 2016 Details: Former alcoholic up to 2 cases of gin per month Drug use: Never Substance use type: does not use Housing: assisted living facility Number of Children: 0 Pets and animals: Yes Pets and animals: dog(s) What is your relationship status?: Panel score (0-1 are the most socially isolated patients): 1 Do you feel safe at home: Yes Do you feel safe in your relationship?: Yes
[2025-06-13 10:00] LABS: BE (Venous) -3 mmol/L (-2-3); HCO3 (Venous) 22 mmol/L (23-28); O2 Sat (Venous) 86 %; TCO2 (Venous) 21 mmol/L (24-29); pCO2 (Venous) 37 mmHg (41-51); pO2 (Venous) 51 mmHg
--- NOTE | 2025-06-13 10:17 | W.PM.HP.N ---
Date of service: 06/13/25 Time of Service: 10:18 Assessment and Plan Assessment and plan (1) Severe sepsis: Status: Acute Assessment and plan: WBC 34.34, Tachypnea RR 25, lactic 2.6 then repeat 4.0 - third pending s/p IVF one liter Source respiratory as per chest imaging On Zithromax and cefepime (2) Pneumonia: Status: Acute Assessment and plan: As per CT imaging and as above Pulmonary consult (3) Acute exacerbation of chronic obstructive pulmonary disease: Status: Acute Assessment and plan: VBG : 7.38, 37, 22 - no hypercapnia Will continue to monitor (4) Lung mass: Status: Acute Assessment and plan: As per CT Pulmonary consult (5) Acute exacerbation of CHF (congestive heart failure): Status: Acute Assessment and plan: BNP >9000 double his previous SOB , no LE edema HFpEF (6) Atrial fibrillation: Status: Chronic Assessment and plan: Hx of on coreg and Eliquis Outpatient cardiology consult requested on 05/03/25 not completed (7) Acute exacerbation of chronic heart failure: Status: Acute (8) GERD (gastroesophageal reflux disease): Status: Chronic Assessment and plan: Will give IV PPI (9) Steroid dependence: Status: Chronic Assessment and plan: ongoing home dose of oral steroid consider solucortef dosing if decompensation in the setting of severe sepsis (10) BPH w urinary obs/LUTS: Status: Acute Assessment and plan: Was on flomax and finesteride-- no longer takes Will investigate (11) History of tobacco use: Assessment and plan: NRT (12) Palliative care encounter: Assessment and plan: Seen by Dr. Chapa on 05/13/25 From notes: #Anxiety: Recommendation: ?Resume scheduled low-dose benzodiazepine such as lorazepam 0.5 mg twice daily - Consider trial of low-dose SSRI such as escitalopram, -#COPD Recommend:1. Resume Steroids and then slowly taper as tolerated. Dexamethasone 4 mg daily for at least 2 months before previous hospital admission, hospital taper completed and home meds not restarted #Cardiac: Several CHF meds stopped when he was placed on comfort care. Suggest resuming carvediol resuming either torsemide or furosemide #Goals of care/advance care planning: Once his anxiety is better controlled, Palliative Care and his SNF medical providers should attempt GOC discussion again. When less acute will consider consult inpatient (13) Acute kidney injury superimposed on stage 3a chronic kidney disease: Status: Acute Assessment and plan: Cr 1.9 from basline 1.3-1-6 IVF bolus of 250cc NS in the ED Continue to evaluate and administer IVF PRN - last echo in 04/2025 was technically difficult but showed HFpEF (14) Presence of stent in coronary artery in patient with coronary artery disease: Status: Chronic Assessment and plan: Hx of in 2019 not on plavix and ASA but Eliquis for A-fib Troponin 61- then 79 trop # 3 at 3 hours - flat 89 will repeat PRN if exacerbation of symptoms On Eliquis for atrial fibrillation - no pharmacological DVT prophylaxis at this time Discussed with Dr. Omid hassan History of Present Illness History of Present Illness Chief Complaint: fall, pre-syncope Narrative: 4-year-old gentleman with past medical history of hypertension, HFpEF, COPD, nicotine dependance still smoking,A-fib on coreg and eliquis, multiple hsopital admission in April d/t respiratory symptoms, , long-term steroid use presented to the ED via EMS for evaluation s/p fall at his SNF w/o head strike reported with ongoing left hip pain , shortness of breath, increased oxygen need nausea, dizziness, and headaches for the past two days, primarily at night. Workup in the ED was positvie for WBC 34.34, lactic 2.6, Cr 1.9 from 1.3 - 1.6 , troponin 61 then 79 w/o signs of coronary occlusion on EKG, BNP 9159 from latest baseline in the 5000's. Chest XR showed a new large right upper lobe infiltrate mildly increased markings in left lower lobes, mall right pleural effusion not excluded. CT of the Chest and head pending. IVF hydration with small bolus of 250 cc initiated in the ED upon orthostasis findings with subsequent resolution. Azithromycin IV, cefepime IV initiated; neb treatments given, and Quatiferon pending. The patient was admitted to the medical surgical floor with telemetry to the hospitalist service for severe sepsis, acute on chronic hypoxic respiratory failure, CARLOS MANUEL on CKD, pneumonia. DNR as per [facility] form on file. No report of objective fevers, but reports chills, night sweats, and other resident being sick at the SNF. Mid sternal chest pain worsening with cough and deep breathing, dry cough and inability to expectorate d/t week cough. Review of Systems All systems reviewed & are unremarkable except as noted in HPI and below PFSH All Active Problems (Updated 06/13/25 @ 17:46 by Kat Patton APRN) Lung mass (Acute) Acute kidney injury superimposed on stage 3a chronic kidney disease (Acute) Severe sepsis (Acute) Sepsis (Acute) CARLOS MANUEL (acute kidney injury) (Acute) Acute exacerbation of chronic obstructive pulmonary disease (Acute) Acute exacerbation of chronic heart failure (Acute) DNR (do not resuscitate) (Acute) As of 05/13/2025: Code status frequently changing. As of 05/13/2025: DNR, +trial of intubation, transfer and treat. Palliative care patient (Acute) Advanced care planning/counseling discussion (Acute) Anxiety (Chronic) Deficit in activities of daily living (ADL) (Acute) GERD (gastroesophageal reflux disease) (Chronic) Atrial fibrillation (Chronic) Steroid dependence (Chronic) Acute exacerbation of CHF (congestive heart failure) (Acute) Lung nodule (Acute) BPH w urinary obs/LUTS (Acute) Microcytic anemia (Chronic) UTI (urinary tract infection) (Acute) Presence of stent in coronary artery in patient with coronary artery disease (Chronic) Diastolic CHF (Chronic) Pneumonia (Acute) Medical History HTN (hypertension) Chronic renal failure Non-STEMI (non-ST elevated myocardial infarction) History of tobacco use Hypospadias Chronic kidney disease, stage 3 Peripheral arterial occlusive disease Constipation Depression Lower urinary tract symptoms (LUTS) Exertional dyspnea Pulmonary hypertension due to left heart disease Coronary artery disease Diastolic heart failure Lower back pain Dysuria Anemia, iron deficiency Heartburn Screening for colon cancer Nocturia Urinary frequency Prediabetes Hypoxemia Multiple pulmonary nodules Lumbar back pain with radiculopathy affecting lower extremity Former smoker Congestion of nasal sinus CKD (chronic kidney disease) CHF (congestive heart failure) Alcoholism in recovery Hypospadias in male COPD (chronic obstructive pulmonary disease) Hyperlipidemia Essential hypertension Surgical History History of phacoemulsification of cataract of both eyes with intraocular lens implantation History of tonsillectomy Family History Father Throat cancer Heart disease Myocardial infarction Brother Heart disease Status post coronary stents Social History Smoking/Tobacco Use Status: Former Tobacco Use Quit Date: 01/11/17 Smoking risk assessment performed?: Yes Alcohol Intake: former Year quit: 2016 Details: Former alcoholic up to 2 cases of gin per month Drug use: Never Substance use type: does not use Housing: assisted living facility Number of Children: 0 Pets and animals: Yes Pets and animals: dog(s) What is your relationship status?: Panel score (0-1 are the most socially isolated patients): 1 Do you feel safe at home: Yes Do you feel safe in your relationship?: Yes Meds Allergies and Home Medications Allergies Allergy/AdvReac Type Severity Reaction Status Date / Time lisinopril AdvReac Unknown low BP, Unverified 05/03/25 02:05 worsening CKD codeine phosphate (From AdvReac constipatio Unverified 05/03/25 02:05 Tylenol-Codeine) n Home Medications ?Medication ?Instructions ?Recorded ?Confirmed ?Type nitroglycerin 0.4 mg sublingual 0.4 mg sublingual Q5M PRN 12/04/19 06/13/25 History tablet guaifenesin 600 mg tablet, 600 mg PO BID PRN 02/28/23 06/13/25 History extended release 12 hr (Mucinex) nicotine 21 mg/24 hr daily 1 patch transdermal DAILY 02/28/23 06/13/25 History transdermal patch apixaban 5 mg tablet (Eliquis) 5 mg PO BID #60 tabs 04/22/25 06/13/25 Rx polyethylene glycol 3350 17 gram 17 g PO DAILY PRN #30 ea 04/24/25 06/13/25 Rx oral powder packet pantoprazole 40 mg tablet,delayed 40 mg PO DAILY #60 tabs 04/30/25 06/13/25 Rx release (Protonix) oxycodone 5 mg tablet 5 mg PO Q4H PRN 05/14/25 06/13/25 History acetaminophen 325 mg capsule 325 mg PO Q6H PRN 06/13/25 06/13/25 History carvedilol 25 mg tablet 25 mg PO DAILY 06/13/25 06/13/25 History docusate sodium 100 mg capsule 100 mg PO BID PRN 06/13/25 06/13/25 History (Colace) ipratropium 0.5 mg-albuterol 3 mg 3 ml inhalation Q4H 06/13/25 06/13/25 History (2.5 mg base)/3 mL nebulization soln lorazepam 0.5 mg tablet (Ativan) 0.5 mg PO Q6H PRN 06/13/25 06/13/25 History prednisolone 5 mg tablet 10 mg PO QDAY 06/13/25 06/13/25 History (Millipred) torsemide 20 mg tablet 20 mg PO DAILY 06/13/25 06/13/25 History venlafaxine 75 mg capsule,extended 75 mg PO DAILY 06/13/25 06/13/25 History release 24 hr Exam Narrative Exam Narrative: Constitutional: distressed with labored breathing, restless Neuro:alert and oriented X4 Resp:Labored breathing, decreased left basilar , right base to nipple line crackles Cardio: irregular rhythm, S1, S2, SA on telemetry, no lower ext edema GI: Abdomen is not distended, soft and non tender, bowel sounds are present : No CVA tenderness Psych: RASS 0, congruent mood and normal affect. Results Labs 06/13/25 08:00 06/13/25 08:00 Labs: Laboratory Results - last 24 hr 06/13/25 06/13/25 08:00 09:55 WBC 34.34 H* RBC 4.74 Hgb 10.1 L Hct 33.2 L MCV 70 L MCH 21.3 L MCHC 30.4 L RDW 17.8 H Plt Count 443 H MPV 10.0 Immature Gran % 0.0 Neutrophils % 86.0 Lymphocytes % 11.0 Monocytes % 3.0 Eosinophils % 0.0 Basophils % 0.0 Nucleated RBC % 1.0 H Absolute Neutrophils 29.53 H Absolute Lymphocytes 3.78 H Absolute Monocytes 1.03 H Absolute Eosinophils 0.00 Absolute Basophils 0.00 RBC Morphology Normal VBG pH 7.38 VBG pCO2 37 L VBG pO2 51 VBG HCO3 22 L VBG Total CO2 21 L VBG O2 Saturation 86 VBG Base Excess -3 L VBG Lactate 2.6 H* Sodium 139 Potassium 4.1 Chloride 101 Carbon Dioxide 25.8 Anion Gap 12.2 H BUN 36 H Creatinine 1.9 H Est GFR (CKD-EPI 2020) 37.02 Glucose 117 H Calcium 8.8 Magnesium 2.0 Total Bilirubin 2.2 H AST 13 L ALT 16 Alkaline Phosphatase 64 Troponin I 61 NT-Pro-B Natriuret Pep 9159 H Total Protein 7.1 Albumin 3.1 L Last Vital Signs Temp 36.9 C 06/13/25 07:33 Pulse 88 06/13/25 09:31 Resp 25 H 06/13/25 09:31 BP 117/54 L 06/13/25 09:31 Pulse Ox 94 06/13/25 09:01 Time Spent Time spent with Patient: >75 minutes Time was spent: preparing to see the patient(eg.review tests), obtaining and/or reviewing separately otained hiistory, ordering medications,tests, procedures, referring, communicating with other health urgent care physician, indepentently interpreting results, counseling the patient and care coordination
[2025-06-13] MEDS: Omnipaque 350 MG/ML 500 ML BTL-Imaging package IJ (10:19)
[2025-06-13] MEDS: Normal Saline - Diluent 50 ML VIAL IJ (10:20)
[2025-06-13] MEDS: CEFEPIME 2 GM in Normal Saline 100 ML IVPB ×2 (10:23→23:22)
[2025-06-13 10:28] LABS: Troponin I 79 ng/L (<or=76)
[2025-06-13] MEDS: AZITHROMYCIN 500 MG in Normal Saline 250 ML 250 MG IVPB (11:32)
[2025-06-13 11:53] LABS: COVID-19 PCR Negative (Negative); RSV PCR Negative (Negative)
--- NOTE | 2025-06-13 12:26 | W.PC.ACHO ---
Registration Status: ADM IN Primary Language: Preferred Language: Syriac ED Information & Data Chief Complaint Chest Pain 06/13/25 09:44 Triage Note Two unwitnessed falls since 06/13/25 07:33 yesterday. Yesterdays 2/2 to near syncope while ambulating and today's sudden onset of weakness and pt reports slipping off side of bed shortly after awakening. C/o CP, worse on respirations and SOB. AAOx3. Medical / Surgical History (Last Reviewed 04/23/25 @ 15:31 by Ange Carnes NP) Palliative care encounter ACP (advance care planning) Encounter for hospice care discussion Housing insecurity Financial difficulties Dyspnea Acute exacerbation of chronic obstructive pulmonary disease HTN (hypertension) Chronic renal failure Non-STEMI (non-ST elevated myocardial infarction) History of tobacco use Hypospadias Chronic kidney disease, stage 3 Peripheral arterial occlusive disease Constipation Depression Lower urinary tract symptoms (LUTS) Exertional dyspnea Pulmonary hypertension due to left heart disease Coronary artery disease Diastolic heart failure Lower back pain Dysuria Anemia, iron deficiency Heartburn Screening for colon cancer Nocturia Urinary frequency Prediabetes Hypoxemia Multiple pulmonary nodules Lumbar back pain with radiculopathy affecting lower extremity Former smoker Congestion of nasal sinus CKD (chronic kidney disease) CHF (congestive heart failure) Alcoholism in recovery Hypospadias in male COPD (chronic obstructive pulmonary disease) Hyperlipidemia Essential hypertension (Last Reviewed 04/23/25 @ 15:31 by Ange Cranes NP) History of phacoemulsification of cataract of both eyes with intraocular lens implantation History of tonsillectomy Most Recent Vital Signs Temperature 36.9 C 06/13/25 07:33 Temperature Source Tympanic 06/13/25 07:33 Pulse 90 06/13/25 11:00 Pulse 90 06/13/25 11:00 Respiratory Rate 25 H 06/13/25 11:00 Respiratory Effort Normal, Short of Breath 06/13/25 08:35 Respiratory Depth Normal 06/13/25 08:35 Respiratory Pattern Normal 06/13/25 08:35 Blood Pressure 165/67 H 06/13/25 11:00 Blood Pressure Mean 102 06/13/25 11:00 Pulse Oximetry 88 L 06/13/25 11:00 Oxygen Delivery Method Nasal Cannula 06/13/25 07:33 Oxygen Flow Rate 3 06/13/25 07:33 Allergies lisinopril Adverse Reaction (Unknown, Unverified 05/03/25 02:05) low BP, worsening CKD codeine phosphate (From Tylenol-Codeine) Adverse Reaction (Unverified 05/03/25 02:05) constipation Active Medications Generic Name Dose Route Start Last Admin Trade Name Jaleesa PRN Reason Stop Dose Admin Iohexol 500 ml 06/13/25 10:30 06/13/25 10:19 Omnipaque 350 Mg/Ml 500 Ml Btl-Imaging Package IJ 07/13/25 23:59 70 ml DIRECTED MAIA Administration Sodium Chloride 0 ml 06/13/25 08:30 06/13/25 08:35 Normal Saline Flush 10 Ml Syr IVP Not Given BID MAIA IV IV Catheter Type [Right Peripheral IV Antecubital] Diet Orders Category Date Time Status Heart Healthy Eating [DIET] Nutrition 06/13/25 Lunch Active Diagnostics 06/13/25 06/13/25 06/13/25 Range/Units 13:51 13:00 11:04 WBC (4.4-10.8) 10^3/uL RBC (4.36-5.78) 10^6/uL Hgb (13.5-17.5) g/dL Hct (40.0-50.0) % MCV (80-95) fL MCH (27.0-33.0) pg MCHC (32.0-36.0) % RDW (11.8-14.1) % Plt Count (130-400) 10^3/uL MPV (8.0-11.0) fL Immature Gran % % Neutrophils % % Lymphocytes % % Monocytes % % Eosinophils % % Basophils % % Nucleated RBC % (0.0-0.3) % Absolute Neutrophils (1.2-6.7) 10^3/uL Absolute Lymphocytes (1.2-3.4) 10^3/uL Absolute Monocytes (0.1-0.8) 10^3/uL Absolute Eosinophils (0.0-0.7) 10^3/uL Absolute Basophils (0.0-0.2) 10^3/uL RBC Morphology VBG pH (7.31-7.41) VBG pCO2 (41-51) mmHg VBG pO2 mmHg VBG HCO3 (23-28) mmol/L VBG Total CO2 (24-29) mmol/L VBG O2 Saturation % VBG Base Excess (-2-3) mmol/L VBG Lactate Pending (<or=2.0) mmol/L Sodium (136-145) mmol/L Potassium (3.5-5.1) mmol/L Chloride (98-107) mmol/L Carbon Dioxide (21.0-32.0) mmol/L Anion Gap (3-11) mmol/L BUN (7-18) mg/dL Creatinine (0.70-1.30) mg/dL Est GFR (CKD-EPI 2020) (mL/min/1.73m2) Glucose (74-106) mg/dL Calcium (8.5-10.1) mg/dL Magnesium (1.8-2.4) mg/dL Total Bilirubin (0.2-1.0) mg/dL AST (15-37) U/L ALT (16-63) U/L Alkaline Phosphatase (46-116) U/L Troponin I Pending Pending (<or=76) ng/L NT-Pro-B Natriuret Pep (<300) pg/mL Total Protein (6.4-8.2) g/dL Albumin (3.4-5.0) g/dL COVID-19 Source Nasopharynx SARS-CoV-2 (PCR) Negative (Negative) Influenza Type A (PCR) Negative (Negative) Influenza Type B (PCR) Negative (Negative) RSV (PCR) Negative (Negative) TB Test Ag - Nil 1 TB Test Ag - Nil 2 TB Test (QFT) Interp 06/13/25 06/13/25 06/13/25 Range/Units 10:20 09:55 08:00 WBC 34.34 H* (4.4-10.8) 10^3/uL RBC 4.74 (4.36-5.78) 10^6/uL Hgb 10.1 L (13.5-17.5) g/dL Hct 33.2 L (40.0-50.0) % MCV 70 L (80-95) fL MCH 21.3 L (27.0-33.0) pg MCHC 30.4 L (32.0-36.0) % RDW 17.8 H (11.8-14.1) % Plt Count 443 H (130-400) 10^3/uL MPV 10.0 (8.0-11.0) fL Immature Gran % 0.0 % Neutrophils % 86.0 % Lymphocytes % 11.0 % Monocytes % 3.0 % Eosinophils % 0.0 % Basophils % 0.0 % Nucleated RBC % 1.0 H (0.0-0.3) % Absolute Neutrophils 29.53 H (1.2-6.7) 10^3/uL Absolute Lymphocytes 3.78 H (1.2-3.4) 10^3/uL Absolute Monocytes 1.03 H (0.1-0.8) 10^3/uL Absolute Eosinophils 0.00 (0.0-0.7) 10^3/uL Absolute Basophils 0.00 (0.0-0.2) 10^3/uL RBC Morphology Normal VBG pH 7.38 (7.31-7.41) VBG pCO2 37 L (41-51) mmHg VBG pO2 51 mmHg VBG HCO3 22 L (23-28) mmol/L VBG Total CO2 21 L (24-29) mmol/L VBG O2 Saturation 86 % VBG Base Excess -3 L (-2-3) mmol/L VBG Lactate 2.6 H* (<or=2.0) mmol/L Sodium 139 (136-145) mmol/L Potassium 4.1 (3.5-5.1) mmol/L Chloride 101 (98-107) mmol/L Carbon Dioxide 25.8 (21.0-32.0) mmol/L Anion Gap 12.2 H (3-11) mmol/L BUN 36 H (7-18) mg/dL Creatinine 1.9 H (0.70-1.30) mg/dL Est GFR (CKD-EPI 2020) 37.02 (mL/min/1.73m2) Glucose 117 H (74-106) mg/dL Calcium 8.8 (8.5-10.1) mg/dL Magnesium 2.0 (1.8-2.4) mg/dL Total Bilirubin 2.2 H (0.2-1.0) mg/dL AST 13 L (15-37) U/L ALT 16 (16-63) U/L Alkaline Phosphatase 64 (46-116) U/L Troponin I 79 H* 61 (<or=76) ng/L NT-Pro-B Natriuret Pep 9159 H (<300) pg/mL Total Protein 7.1 (6.4-8.2) g/dL Albumin 3.1 L (3.4-5.0) g/dL COVID-19 Source SARS-CoV-2 (PCR) (Negative) Influenza Type A (PCR) (Negative) Influenza Type B (PCR) (Negative) RSV (PCR) (Negative) TB Test Ag - Nil 1 Pending TB Test Ag - Nil 2 Pending TB Test (QFT) Interp Pending 06/13/25 10:20 Blood Culture - Pending Blood 06/13/25 10:05 Blood Culture - Pending Blood Intake and Output - 24 Hour Total 06/13/25 07:27 thru 06/13/25 08:56 Intake Total 250 Balance 250 Weight 90.718 kg Intake: IV 250 Falls Risk Assessment History of Falls Admit Due to Fall 06/13/25 07:51 Contributing Factors Unstable 06/13/25 07:51 Ambulatory Aids Independent 06/13/25 07:51 Tubes/Lines None 06/13/25 07:51 Gait Evaluation No gait disturbance 06/13/25 07:51 Cognition No cognitive impairment 06/13/25 07:51 Fall Total Score 28 06/13/25 07:51 Level of Risk Moderate Risk 06/13/25 07:51 Problems (Last Reviewed 04/23/25 @ 15:31 by Ange Carnes NP) Acute kidney injury superimposed on stage 3a chronic kidney disease (Acute) Severe sepsis (Acute) Sepsis (Acute) Acute exacerbation of chronic obstructive pulmonary disease (Acute) Acute exacerbation of chronic heart failure (Acute) GERD (gastroesophageal reflux disease) (Chronic) Atrial fibrillation (Chronic) Steroid dependence (Chronic) Acute exacerbation of CHF (congestive heart failure) (Acute) BPH w urinary obs/LUTS (Acute) Presence of stent in coronary artery in patient with coronary artery disease (Chronic) Pneumonia (Acute) v v v v v v v v v Sending and/or Receiving Nurses: Please use comment section below to note any information pertinent to the patient hand-off not included above. Information / Comments: this nurse received report from ED nurse patient oriented CHF exaerbation, transfer for continous treatment Report received from: [facility]
[2025-06-13] MEDS: Acetaminophen 325 MG TAB 650 MG PO (13:44)
[2025-06-13] MEDS: oxyCODONE 5 MG TAB PO ×2 (13:44→21:29)
[2025-06-13 14:10] LABS: Troponin I 89 ng/L (<or=76)
[2025-06-13] MEDS: MORPHine 2 MG/ML SYR IVP (14:17)
[2025-06-13] MEDS: Normal Saline Flush 10 ML SYR IVP ×5 (14:19→23:25)
[2025-06-13] MEDS: Ipratropium/Albuterol 4 GM 120 PUFF INH IH ×2 (14:24→18:24)
--- NOTE | 2025-06-13 15:09 | PT.INNT ---
PT Notes Visit Reasons: Severe Sepsis, Hypoxic Resp Fail Pneumonia,CHF Exa Patient with worsening respiratory symptoms and are being prepped to move to the ICU for close monitoring of symptoms. Currently being assessed for TB. Nurse Rhonda suggested holding off on PT evalaution until patient is more medically stable. LUIS Stephens advised to hold off with PT evaluation until tomorrow.
[2025-06-13] MEDS: Lactated Ringers 1,000 ML 250 ML IV (15:16)
[2025-06-13] MEDS: MORPHine 2 MG/ML SYR 1 MG IVP ×3 (18:03→23:41)
--- NOTE | 2025-06-13 20:00 | RT.EKG_ITS ---
APPROVED REPORT Exam: Resting ECG Reason for Exam: ST changes Patient Location: I HR:100 bpm ECG Measurements Heart Rate 100 AXIS TN 184 P 52 QRSd 98 QRS 50 QT 363 T 74 QTc 469 Conclusion Sinus tachycardia...rate> 99 Atrial premature complexes...SV complexes w/ short R-R intvls
[2025-06-13] MEDS: LORazepam 0.5 MG TAB PO (20:18)
[2025-06-13] MEDS: Apixaban 5 MG TAB PO (21:18)
[2025-06-13] MEDS: guaiFENesin 600 MG TABCR PO (21:18)
[2025-06-13] MEDS: Docusate Sodium 100 MG/10 ML CUP PO (21:18)
[2025-06-14] VITALS (47 sets, daily range): BP systolic 110–148; BP diastolic 42–64; PULSE 60–136; RESP 14–26; TEMP 31–37.1; O2SAT 81–99
--- NOTE | 2025-06-14 | DI.RAD_ITS ---
Exam(s) XR ABDOMEN FLAT PLATE EXAM: XR ABDOMEN FLAT PLATE CLINICAL HISTORY: constipation. TECHNIQUE: 2D digital imaging was performed. COMPARISON: CT CT CHEST PE CTA from 09/22/[address] CHEST W from 06/13/2025 FINDINGS: AP portable supine view of the abdomen-pelvis dated 06/14/2025 at 11:[address] chest CT scan 06/13/2025 was reviewed. The lowermost images of the chest CT scan revealed an atrophic left kidney and cholelithiasis. Present AP view reveals air-filled small bowel loops in the central-left side of the abdomen which exhibit upper normal diameters. Part of the stomach appears projected above the hemidiaphragm which may represent projectional artifact. There is no evidence of hiatal hernia on yesterday's chest CT scan. The urinary bladder is somewhat distended and contrast filled, this from intravenous contrast from yesterday's CT scan. There are no abnormal calcifications of the kidneys nor along the course of the ureters. Regional bones appear age- appropriate. IMPRESSION: No obvious specific radiographic abnormalities, realizing this is a portable AP supine image. If there is significant clinical consideration for significant intra-abdominal pathology then CT scan would be recommended. DATA REPOSITORY: RADIATION DOSE DELIVERED:
[2025-06-14] MEDS: LORazepam 0.5 MG TAB PO ×4 (00:36→13:13)
[2025-06-14] MEDS: Albuterol/Ipratropium 3 ML UPD VIAL (00:37)
[2025-06-14 01:04] LABS: Glucose Negative (Negative)
[2025-06-14] MEDS: MORPHine 2 MG/ML SYR IVP ×5 (01:11→13:13)
[2025-06-14 01:13] LABS: C & S Indicated? Yes; WBC >50 HPF (0-5)
[2025-06-14] MEDS: Normal Saline Flush 10 ML SYR IVP ×8 (03:03→22:30)
[2025-06-14 03:54] LABS: BE -6 mmol/L (-2-3); HCO3 20 mmol/L (22-26)
[2025-06-14 03:56] LABS: FIO2L 15 L
--- NOTE | 2025-06-14 04:15 | NUR.NOTE ---
pt admitted for pneumonia, CHF exa, pt is using oxygen at home 3-4L/min NC, PHARMACY HELPER assessted pt few times adjusted the oxygen as needed, gave nebulizer treatment, PRN morphine, O2 sat increased to 92%, for short time, but pt was restless, anxious, get up to tripod position on and off, keep desating to low as 79%-83%, ativan and morphine provided with short relief, MD aware of all situation change on patient, around 0200 contact MD again, to update on patient situation O2 sat 83% on 10L/min high flow NC, STach HR 109-123, converted to Afib for one hour, SOB, tripod position,using accessory muscle, resless. MD at bedside, un order for ABG, and transfer patient to ICU.
[2025-06-14] MEDS: Albuterol HFA 8 GM 60 PUFF INH IH (04:35)
[2025-06-14] MEDS: methylPREDNISolone SUCC 40 MG VIAL 80 MG IVP ×3 (04:58→21:18)
--- NOTE | 2025-06-14 06:26 | W.EVENT ---
Date of service: 06/14/25 Time of Service: 06:26 Event Note: Overnight patient was noted as having increasing oxygen requirements with significant anxiety and shortness of breath. At around 3 AM I was paged to assess the patient as he was on the high flow (via high flow system), at almost maxed settings with an oxygen saturation of 82% reportedly tripoding and using accessory muscles. Upon my arrival patient was not tripoding nor was he using accessory muscles, however he was severely anxious. When asked if patient had received his as needed IV morphine or Ativan they stated he was not due for his next dose when in fact he was eligible to have his dose given just a few minutes early. Additionally, asked if respiratory therapy had been paged and the nurses stated no that they did not want to bother the respiratory therapist. I immediately asked for respiratory therapy to be paged to assess the patient for more advanced oxygen delivery system. However, given the the patient was clearly too complex for MedSurg unit nurses, patient was transferred to the ICU. ABG was done and showed respiratory alkalosis. Patient was ultimately placed on high flow nasal cannula with good oxygenation. Additionally, once patient was administered appropriate as needed morphine and Ativan he was able to settle down. Time Spent with Patient Time spent in critical care(minutes): 45 Time Spent Included: Coordination of care, Chart review, Documenting critically ill care, Time at immediate bedside and Discussing critically ill care with other medical staff
[2025-06-14 06:58] LABS: Abs Immature Grans 0.56 10^3/uL (0.0-0.06); HCT 29.8 % (40.0-50.0); HGB 9.0 g/dL (13.5-17.5); Immature Grans % 1.9 %; MCH 20.6 pg (27.0-33.0); MCHC 30.2 % (32.0-36.0); MCV 68 fL (80-95); MPV 10.2 fL (8.0-11.0); Platelet Count 410 10^3/uL (130-400); RBC 4.36 10^6/uL (4.36-5.78); RDW 17.1 % (11.8-14.1); RDW-SD 40.6 fL
[2025-06-14 07:12] LABS: Anion Gap 12.6 mmol/L (3-11); BUN 44 mg/dL (7-18); CO2 22.4 mmol/L (21.0-32.0); Calcium 8.8 mg/dL (8.5-10.1); Chloride 101 mmol/L (98-107); Estimated GFR 31.05 (mL/min/1.73m2); Glucose 89 mg/dL (74-106); Potassium 4.2 mmol/L (3.5-5.1); Sodium 136 mmol/L (136-145)
[2025-06-14] MEDS: Pantoprazole 40 MG TABCR PO (07:24)
[2025-06-14 07:45] LABS: Microcytosis 2+; WBC 29.95 10^3/uL (4.4-10.8)
[2025-06-14] MEDS: Ipratropium/Albuterol 4 GM 120 PUFF INH IH ×4 (07:59→21:22)
--- NOTE | 2025-06-14 08:42 | INITIAL_ITS ---
Date of service: 06/14/25 Time of Service: 08:42 Care Management Initial Assmt Initial Assessment Reason for Hospitalization: Pneumonia Functional Status/Living Situation Patient Presentation: Elroy was sitting up in bed in the ICU wearing oxygen via HFNC when CM met with him. He appeared uncomfortable but readily engaged with CM whom he recognized from prior encounters. Elroy was living alone in a single family home in [place] until April. After several hospital stays in April for shortness of breath and/or CHF, he agreed to go to short term rehab with the goal of returning home. He shared that initially he had a hard time adjusting to being at the rehab but things got better and he began to improve. He reported being able to ambulate again and feeling stronger. He was really discouraged when he once again became ill this week and had to be hospitalized. Elroy's Luma last fall just before after a long illness. He has no children and his only close relative is his brother Cheko who lives in [place]. Elroy informed CM that since he was here in April, his house has been foreclosed. He added that he does not feel like he will ever be able to leave the rehab as he feels his health is failing a little bit more with each bout of illness. Elroy uses supplemental nasal oxygen at 2-4 L/min at baseline. Town of Residence: [place] Resides with: Alone Significant Other/Family: Out of area (brother in [place]) Natural Supports: friends Employment Status: Retired Instrumental Activities of Daily Living (ADLs): Independent Medications Medication Management: No Issues/Barriers identified Physical Functioning/Mobility Assistive Device: O2 at 2-4 L/min Advance Directives Advance Directives: Do you have an Advance Directive: N 09/26/ 16, 10:14 AD On File at [facility]: N 06/06/16, 17:47 Date Asked 06/13/25 06/13/25, 07:49 AD Date Reviewed COLST On File at [facility] COLST Date Scanned Code Status Resuscitation Status DNR Portal Pt does not currently have a portal and education provided: Yes Insurance Coverage/Financial Issues Insurance: [employer] Medicare Replacement Care Team Visit Care Team Role Provider Type Everardo Malloy MD Primary Care Provider NON-[facility] STAFF PHYSICIAN InPatient [facility] Other Providers OTHER Alta Villatoro MD Other Providers [facility] STAFF PHYSICIAN Agus Sheridan MD Emergency Provider [facility] STAFF PHYSICIAN Everardo Anne MD Admit Provider [facility] STAFF PHYSICIAN Attending Provider Discharge Potential Discharge Needs: PCP F/U Appt Anticipated Barriers to Discharge: None Identified Patient/Family Education Needs: Review discharge instructions, discuss Ask Me Three Transportation: Private vehicle Plan: Anticipate Elroy will be transferred back to [facility] when medically cleared. He will follow up with his facility providers and plan of care and transport via [facility]. CM will follow and continue to support dis charge planning. Social Determinants of Health Screening Will the Patient Participate in the Screening?: Declined to provide Do you worry about having a steady place to live?: no In the past 12 months, have you had to go without electric, gas, oil or water in your home?: no Comments: lives in a rehab facility [facility] All Active Problems (Updated 06/14/25 @ 11:09 by Everardo Anne MD) Distended abdomen (Acute) Lung mass (Acute) Acute kidney injury superimposed on stage 3a chronic kidney disease (Acute) Severe sepsis (Acute) Sepsis (Acute) CARLOS MANUEL (acute kidney injury) (Acute) Acute exacerbation of chronic obstructive pulmonary disease (Acute) Acute exacerbation of chronic heart failure (Acute) DNR (do not resuscitate) (Acute) As of 05/13/2025: Code status frequently changing. As of 05/13/2025: DNR, +trial of intubation, transfer and treat. Palliative care patient (Acute) Advanced care planning/counseling discussion (Acute) Anxiety (Chronic) Deficit in activities of daily living (ADL) (Acute) GERD (gastroesophageal reflux disease) (Chronic) Atrial fibrillation (Chronic) Steroid dependence (Chronic) Acute exacerbation of CHF (congestive heart failure) (Acute) Lung nodule (Acute) BPH w urinary obs/LUTS (Acute) Microcytic anemia (Chronic) UTI (urinary tract infection) (Acute) Presence of stent in coronary artery in patient with coronary artery disease (Chronic) Diastolic CHF (Chronic) Pneumonia (Acute) Medical History HTN (hypertension) Chronic renal failure Non-STEMI (non-ST elevated myocardial infarction) History of tobacco use Hypospadias Chronic kidney disease, stage 3 Peripheral arterial occlusive disease Constipation Depression Lower urinary tract symptoms (LUTS) Exertional dyspnea Pulmonary hypertension due to left heart disease Coronary artery disease Diastolic heart failure Lower back pain Dysuria Anemia, iron deficiency Heartburn Screening for colon cancer Nocturia Urinary frequency Prediabetes Hypoxemia Multiple pulmonary nodules Lumbar back pain with radiculopathy affecting lower extremity Former smoker Congestion of nasal sinus CKD (chronic kidney disease) CHF (congestive heart failure) Alcoholism in recovery Hypospadias in male COPD (chronic obstructive pulmonary disease) Hyperlipidemia Essential hypertension Surgical History History of phacoemulsification of cataract of both eyes with intraocular lens implantation History of tonsillectomy Family History Father Throat cancer Heart disease Myocardial infarction Brother Heart disease Status post coronary stents Social History Smoking/Tobacco Use Status: Former Tobacco Use Quit Date: 01/11/17 Smoking risk assessment performed?: Yes Alcohol Intake: former Year quit: 2016 Details: Former alcoholic up to 2 cases of gin per month Drug use: Never Substance use type: does not use Housing: assisted living facility Number of Children: 0 Pets and animals: Yes Pets and animals: dog(s) What is your relationship status?: Panel score (0-1 are the most socially isolated patients): 1 Do you feel safe at home: Yes Do you feel safe in your relationship?: Yes
[2025-06-14] MEDS: Venlafaxine 75 MG CAPCR PO (09:20)
[2025-06-14] MEDS: Carvedilol 25 MG TAB PO (09:21)
[2025-06-14] MEDS: Apixaban 5 MG TAB PO ×2 (09:21→21:17)
[2025-06-14] MEDS: Docusate Sodium 100 MG/10 ML CUP PO ×2 (09:21→14:31)
[2025-06-14] MEDS: guaiFENesin 600 MG TABCR PO ×2 (09:21→21:17)
[2025-06-14] MEDS: Nicotine 21 MG/24 HR PATCH TD (09:22)
[2025-06-14] MEDS: CEFEPIME 2 GM in Normal Saline 100 ML IVPB ×2 (10:47→21:19)
[2025-06-14] MEDS: AZITHROMYCIN 250 MG in Normal Saline 250 ML IVPB (10:48)
--- NOTE | 2025-06-14 10:49 | PHACLINREV_ITS ---
Pharmacy Admission Review Admission Clinical Review Admission Pharmacy Review: Lung mass (Acute) Acute kidney injury superimposed on stage 3a chronic kidney disease (Acute) Severe sepsis (Acute) Acute exacerbation of chronic obstructive pulmonary disease (Acute) Acute exacerbation of chronic heart failure (Acute) Acute exacerbation of CHF (congestive heart failure) (Acute) BPH w urinary obs/LUTS (Acute) Pneumonia (Acute) lisinopril Adverse Reaction (Unknown, Unverified 05/03/25 02:05) low BP, worsening CKD codeine phosphate (From Tylenol-Codeine) Adverse Reaction (Unverified 05/03/25 02:05) constipation Resuscitation Status DNR Height 5 ft 8 in Weight 90.7 kg Comments Comments/Follow Ups: follow up on home meds and oxycodone (see note) Pharmacy Admission Review Renal Dosing Renal Dosing: BUN 44 mg/dL (7-18) H 06/14/25 05:59 Creatinine 2.2 mg/dL (0.70-1.30) H 06/14/25 05:59 Medications needing adjustments: Reviewed (CrCl 33.1 mL/min, BUN increased from 36 and SCr increased from 1.9) List of meds needing interventions: Changed cefepime from q8h to q12h - provider aware. Recommended oxycodone be changed to q6h due to CrCl <60 - informed provider that there is no fill history on [facility] (past 1yr) and provider may put on hold. Waiting to hear back. Anticoagulation Anticoagulation: Hgb 9.0 g/dL (13.5-17.5) L 06/14/25 05:59 Hct 29.8 % (40.0-50.0) L 06/14/25 05:59 Plt Count 410 10^3/uL (130-400) H 06/14/25 05:59 Creatinine 2.2 mg/dL (0.70-1.30) H 06/14/25 05:59 DVT Prophylaxis: Reviewed (For afib - Hgb decreased from 10.1, PLT count decreased from 443) Medications: Apixaban (5mg BID) Opiate Usage Evaluate Pain Scale/Pains Meds: Reviewed (morphine 2mg IVP q2h PRN - 6mg/24hrs, oxycodone 5mg q4h PRN - 10mg/24hrs) Scheduled Bowel Reg ordered if on Opiates?: Yes (docusate + PRN Miralax) Relevant Labs Relevant Labs: Sodium 136 mmol/L (136-145) 06/14/25 05:59 Potassium 4.2 mmol/L (3.5-5.1) 06/14/25 05:59 Chloride 101 mmol/L (98-107) 06/14/25 05:59 Magnesium 2.0 mg/dL (1.8-2.4) 06/13/25 08:00 Electrolytes, C-Reactive P, ESR: Reviewed Cardiac Review Cardiac Review: Troponin I Cancelled 06/13/25 13:51 NT-Pro-B Natriuret Pep 9159 pg/mL (<300) H 06/13/25 08:00 BP, HR, EF%: Intervened (BP 110/47, HR 102, Ox 89 and oxygen flow rate HF 60) List meds needing interventions: Has orders for carvedilol 25mg daily and furos emide 40mg IVP TID. Furosemide order put in as an admix in 100ml NS. Reached out to provider as it is usually done as IVP from vial, provider stated that it did not need to be the admix and could change to the vial. QTc Review QTc: Reviewed (484 from 05/03/25 - report pending from 06/13/25) IV to PO Switch IV Medications: Reviewed (azithromycin, cefepime, furosemide, methylprednisolone, morphine) Home Meds Home Med List reviewed: Intervened Relevent Home Meds Not ordered & why?: nitroglycerin (PRN) and torsemide Reached out to provider regarding torsemide, per provider was holding. Order was put in for IV furosemide this morning. Recently filled but not on home med list: amlodipine, rosuvastatin and potassium. Called nurse to see if we could verify with patient whether or not he takes these at home. Waiting to hear back. Current Meds Current Medication Order Review: Reviewed Pharmacy Antibiotic Review Relevant Labs: WBC 29.95 10^3/uL (4.4-10.8) H* 06/14/25 05:59 Temperature 36.6 C Temperature 37.1 C Temperature 36.6 C Pharmacy Antibiotic Activity: C/S review and Renal function adjustment (cefepime changed from q8h to q12h) Comments: Patient is on azithromycin and cefepime (renally adjusted), day 2, for severe sepsis/pneumonia. WBC decreased from 34.34 and blood/urine cultures pending. Comments Comments/Follow Ups: follow up on home meds and oxycodone (see note)
--- NOTE | 2025-06-14 10:49 | W.PM.PROGNOT ---
Date of Service Date of service: 06/14/25 Time of Service: 10:49 Assessment and Plan Assessment and plan (1) Severe sepsis: Status: Acute Assessment and plan: WBC 34.34, Tachypnea RR 25, lactic 2.6 then repeat 4.0 - third pending s/p IVF one liter Source respiratory as per chest imaging On Zithromax and cefepime 06/14/25 C/w abx cefepime and zmax. Lactic acid at 2.0. Blood cultures pending. MRSA swab (2) Pneumonia: Status: Acute Assessment and plan: As per CT imaging and as above Pulmonary consult 06/14/25 Consult placed to Pulm/CC, but not available to Monday. Pt does appear stable at this point and does not need urgent/emergent evaluation. (3) Acute exacerbation of chronic obstructive pulmonary disease: Status: Acute Assessment and plan: VBG : 7.38, 37, 22 - no hypercapnia Will continue to monitor 06/14/25 PT is on albuterol/duoneb/methylpred (severe sepsis/copd/adrenal insufficiency 2/2 illness) (4) Lung mass: Status: Acute Assessment and plan: As per CT Pulmonary consult 06/14/25 Pt potentially could benefit from bronchoscopy but will defer until pulm/cc returns (5) Acute exacerbation of CHF (congestive heart failure): Status: Acute Assessment and plan: BNP >9000 double his previous SOB , no LE edema HFpEF 06/14/25 pt with fairly aggressive fluid resuscitation. Will start iv lasix as pt might be having a chf exacerbation. Fluid balance between heart/lungs/kidneys will be challenging. Place olivares/daily weights (6) Atrial fibrillation: Status: Chronic Assessment and plan: Hx of on coreg and Eliquis Outpatient cardiology consult requested on 05/03/25 not completed (7) GERD (gastroesophageal reflux disease): Status: Chronic Assessment and plan: Will give IV PPI (8) Steroid dependence: Status: Chronic Assessment and plan: ongoing home dose of oral steroid consider solucortef dosing if decompensation in the setting of severe sepsis 06/14/25 pt now on methyprednisolone (9) History of tobacco use: Assessment and plan: NRT (10) Palliative care encounter: Assessment and plan: Seen by Dr. Chapa on 05/13/25 From notes: #Anxiety: Recommendation: ?Resume scheduled low-dose benzodiazepine such as lorazepam 0.5 mg twice daily - Consider trial of low-dose SSRI such as escitalopram, -#COPD Recommend:1. Resume Steroids and then slowly taper as tolerated. Dexamethasone 4 mg daily for at least 2 months before previous hospital admission, hospital taper completed and home meds not restarted #Cardiac: Several CHF meds stopped when he was placed on comfort care. Suggest resuming carvediol resuming either torsemide or furosemide #Goals of care/advance care planning: Once his anxiety is better controlled, Palliative Care and his SNF medical providers should attempt GOC discussion again. When less acute will consider consult inpatient (11) Acute kidney injury superimposed on stage 3a chronic kidney disease: Status: Acute Assessment and plan: Cr 1.9 from basline 1.3-1-6 IVF bolus of 250cc NS in the ED Continue to evaluate and administer IVF PRN - last echo in 04/2025 was technically difficult but showed HFpEF (12) Presence of stent in coronary artery in patient with coronary artery disease: Status: Chronic Assessment and plan: Hx of in 2019 not on plavix and ASA but Eliquis for A-fib Troponin 61- then 79 trop # 3 at 3 hours - flat 89 will repeat PRN if exacerbation of symptoms On Eliquis for atrial fibrillation - no pharmacological DVT prophylaxis at this time Discussed with Dr. Omid hassan (13) Distended abdomen: Status: Acute Assessment and plan: check abd film Subjective Subjective Interval history since last seen: OEN. Pt was transferred to ICU 2/2 worsening respiratory distress Exam Narrative Exam Narrative: heent-ncat mmm hi-flow in place neck-no lad no jvd cv-rrr no mrg lungs-bilat wheeze with crackles. No amu abd-sntndbsa ext-no cce bilat neuro-responds to verbal stimuli appropriately Objective Last Vital Signs Temp 36.6 C 06/14/25 07:25 Pulse 102 H 06/14/25 07:00 Resp 23 06/14/25 07:00 BP 110/47 L 06/14/25 06:15 Pulse Ox 89 L 06/14/25 07:25 Laboratory Results - last 24 hr 06/13/25 06/13/25 06/13/25 11:04 13:40 13:51 WBC RBC Hgb Hct MCV MCH MCHC RDW Plt Count MPV Immature Gran % Neutrophils % Lymphocytes % Monocytes % Eosinophils % Basophils % Nucleated RBC % Absolute Neutrophils Absolute Lymphocytes Absolute Monocytes Absolute Eosinophils Absolute Basophils RBC Morphology Microcytosis ABG Sample Site ABG pH ABG pCO2 ABG pO2 ABG HCO3 ABG Total CO2 ABG O2 Saturation ABG Base Excess VBG Lactate 4.0 H* Oxygen Liter Flow FiO2 Sodium Potassium Chloride Carbon Dioxide Anion Gap BUN Creatinine Est GFR (CKD-EPI 2020) Glucose Calcium Troponin I 89 H* Cancelled Urine Color Urine Clarity Urine pH Ur Specific [place] Urine Protein Urine Ketones Urine Blood Urine Nitrite Urine Bilirubin Urine Urobilinogen Ur Leukocyte Esterase Urine RBC Urine WBC Ur Epithelial Cells Urine Crystals Urine Bacteria Urine Casts Urine Mucus Ur Culture Indicated? Urine Glucose COVID-19 Source Nasopharynx SARS-CoV-2 (PCR) Negative Influenza Type A (PCR) Negative Influenza Type B (PCR) Negative RSV (PCR) Negative 06/13/25 06/14/25 06/14/25 17:50 00:34 03:33 WBC RBC Hgb Hct MCV MCH MCHC RDW Plt Count MPV Immature Gran % Neutrophils % Lymphocytes % Monocytes % Eosinophils % Basophils % Nucleated RBC % Absolute Neutrophils Absolute Lymphocytes Absolute Monocytes Absolute Eosinophils Absolute Basophils RBC Morphology Microcytosis ABG Sample Site Cancelled ABG pH Cancelled ABG pCO2 Cancelled ABG pO2 Cancelled ABG HCO3 Cancelled ABG Total CO2 Cancelled ABG O2 Saturation Cancelled ABG Base Excess Cancelled VBG Lactate 2.0 Oxygen Liter Flow Cancelled FiO2 Cancelled Sodium Potassium Chloride Carbon Dioxide Anion Gap BUN Creatinine Est GFR (CKD-EPI 2020) Glucose Calcium Troponin I Urine Color Yellow Urine Clarity Clear Urine pH 6.0 Ur Specific [place] 1.015 Urine Protein >=300 H Urine Ketones Negative Urine Blood Trace-intact H Urine Nitrite Negative Urine Bilirubin Negative Urine Urobilinogen 0.2 Ur Leukocyte Esterase Small H Urine RBC 3-5 H Urine WBC >50 H Ur Epithelial Cells Few Urine Crystals Negative Urine Bacteria Few Urine Casts Negative Urine Mucus Negative Ur Culture Indicated? Yes Urine Glucose Negative COVID-19 Source SARS-CoV-2 (PCR) Influenza Type A (PCR) Influenza Type B (PCR) RSV (PCR) 06/14/25 06/14/25 03:48 05:59 WBC 29.95 H* RBC 4.36 Hgb 9.0 L Hct 29.8 L MCV 68 L MCH 20.6 L MCHC 30.2 L RDW 17.1 H Plt Count 410 H MPV 10.2 Immature Gran % 1.9 Neutrophils % 84.4 Lymphocytes % 6.9 Monocytes % 6.3 Eosinophils % 0.2 Basophils % 0.3 Nucleated RBC % 0.1 Absolute Neutrophils 25.28 H Absolute Lymphocytes 2.07 Absolute Monocytes 1.89 H Absolute Eosinophils 0.06 Absolute Basophils 0.09 RBC Morphology See Below Microcytosis 2+ ABG Sample Site Right Radial ABG pH 7.35 ABG pCO2 36 ABG pO2 60 L ABG HCO3 20 L ABG Total CO2 19 L ABG O2 Saturation 89 L ABG Base Excess -6 L VBG Lactate Oxygen Liter Flow 15 FiO2 Sodium 136 Potassium 4.2 Chloride 101 Carbon Dioxide 22.4 Anion Gap 12.6 H BUN 44 H Creatinine 2.2 H Est GFR (CKD-EPI 2020) 31.05 Glucose 89 Calcium 8.8 Troponin I Urine Color Urine Clarity Urine pH Ur Specific [place] Urine Protein Urine Ketones Urine Blood Urine Nitrite Urine Bilirubin Urine Urobilinogen Ur Leukocyte Esterase Urine RBC Urine WBC Ur Epithelial Cells Urine Crystals Urine Bacteria Urine Casts Urine Mucus Ur Culture Indicated? Urine Glucose COVID-19 Source SARS-CoV-2 (PCR) Influenza Type A (PCR) Influenza Type B (PCR) RSV (PCR) PAWSS Have you Been Recently Intoxicated or Drunk Within the Last 30 days?: No Have you Ever Experienced Previous Episodes of Alcohol Withdrawal?: No Have you ever Experienced Withdrawal Seizures?: No Have you ever Experienced Delirium Tremens(DT)s?: No Have you ever undergone Alcohol Rehabilitation Treatment (i.e, inpt ot outpatient treatment programs)?: No Have you ever Experienced Blackouts?: No Have you ever Combined Alcohol with other Downers within the last 90 days?: No Have you ever Combined Alcohol with any other Substance of Abuse during the last 90 days?: No Positive Blood Alcohol level on Presentation? [PCS.BAL]: No Evidence of Increased Autonomic Activity (i.e. HR>120, tremor, sweating, agitation, nausea)?: No Result: 0 Time Spent with Patient Time Spent with Patient: 35-49 minutes Time was spent: preparing to see the patient(eg.review tests), obtaining and/or reviewing separately otained hiistory, ordering medications,tests, procedures, referring, communicating with other health career discovery teacher, indepentently interpreting results, counseling the patient and care coordination
--- NOTE | 2025-06-14 12:05 | DI.VRAD_ITS ---
PROCEDURE INFORMATION: Exam: XR Abdomen Exam date and time: 06/14/2025 11:14 AM Age: 74 years old Clinical indication: Pain; Other: Constipation TECHNIQUE: Imaging protocol: Radiologic exam of the abdomen. Views: Frontal supine view of the abdomen. 1 View. COMPARISON: CT chest PE abd pelvis w 01/07/2019 1:06 PM FINDINGS: Gastrointestinal tract: No bowel dilatation. Scattered mild stool and gas in the large bowel. Stool volume is most prominent in the descending colon and rectum Organs: There is contrast in the urinary bladder. Bones/joints: Unremarkable. IMPRESSION: No acute findings. Dictated and Authenticated by: Lobo Quintero MD. Orderin Omid Mcgee MD
[2025-06-14] MEDS: Acetaminophen 325 MG TAB 650 MG PO (13:13)
[2025-06-14] MEDS: Furosemide 40 MG/4 ML VIAL IVP ×2 (14:31→21:17)
[2025-06-14 17:32] LABS: MRSA PCR Positive (Negative)
[2025-06-14] MEDS: oxyCODONE 5 MG TAB PO (21:17)
[2025-06-14 23:39] LABS: BE (Venous) -5 mmol/L (-2-3); HCO3 (Venous) 21 mmol/L (23-28); O2 Sat (Venous) 97 %; TCO2 (Venous) 20 mmol/L (24-29); pCO2 (Venous) 38 mmHg (41-51); pO2 (Venous) 83 mmHg
[2025-06-15] VITALS (57 sets, daily range): BP systolic 118–173; BP diastolic 56–92; PULSE 60–82; RESP 13–27; TEMP 31–36.9; O2SAT 84–97
[2025-06-15] MEDS: methylPREDNISolone SUCC 40 MG VIAL 80 MG IVP ×3 (03:28→19:31)
[2025-06-15] MEDS: Albuterol HFA 8 GM 60 PUFF INH IH (06:45)
[2025-06-15] MEDS: Ipratropium/Albuterol 4 GM 120 PUFF INH IH ×3 (07:56→20:06)
[2025-06-15] MEDS: Nicotine 21 MG/24 HR PATCH TD (08:04)
[2025-06-15] MEDS: Apixaban 5 MG TAB PO ×2 (08:04→19:30)
[2025-06-15] MEDS: Acetaminophen 325 MG TAB 650 MG PO ×3 (08:04→21:00)
[2025-06-15] MEDS: LORazepam 0.5 MG TAB PO ×2 (08:04→18:47)
[2025-06-15] MEDS: Furosemide 40 MG/4 ML VIAL IVP ×3 (08:04→19:30)
[2025-06-15] MEDS: Docusate Sodium 100 MG/10 ML CUP PO ×3 (08:04→20:58)
[2025-06-15] MEDS: guaiFENesin 600 MG TABCR PO ×2 (08:04→19:30)
[2025-06-15] MEDS: Pantoprazole 40 MG TABCR PO (08:05)
[2025-06-15] MEDS: Carvedilol 25 MG TAB PO (08:05)
[2025-06-15] MEDS: Normal Saline Flush 10 ML SYR IVP ×3 (08:05→19:30)
[2025-06-15] MEDS: Venlafaxine 75 MG CAPCR PO (08:05)
[2025-06-15 08:16] LABS: HCT 28.4 % (40.0-50.0); HGB 8.8 g/dL (13.5-17.5); MCH 20.4 pg (27.0-33.0); MCHC 31.0 % (32.0-36.0); MPV 9.9 fL (8.0-11.0); Platelet Count 355 10^3/uL (130-400); RBC 4.31 10^6/uL (4.36-5.78); RDW 16.7 % (11.8-14.1); RDW-SD 38.5 fL; WBC 21.80 10^3/uL (4.4-10.8)
[2025-06-15 08:32] LABS: ALT 15 U/L (16-63); AST 27 U/L (15-37); Albumin 2.5 g/dL (3.4-5.0); Alkaline Phosphatase 77 U/L (46-116); Anion Gap 9.3 mmol/L (3-11); BUN 58 mg/dL (7-18); Bilirubin, Total 0.9 mg/dL (0.2-1.0); CO2 24.7 mmol/L (21.0-32.0); Calcium 9.1 mg/dL (8.5-10.1); Chloride 101 mmol/L (98-107); Estimated GFR 31.05 (mL/min/1.73m2); Glucose 161 mg/dL (74-106); Potassium 4.3 mmol/L (3.5-5.1); Sodium 135 mmol/L (136-145); Total Protein 7.0 g/dL (6.4-8.2)
[2025-06-15 08:34] LABS: MCV 66 fL (80-95)
--- NOTE | 2025-06-15 10:10 | PT.INIE ---
PT Notes Visit Reasons: Severe Sepsis, Hypoxic Resp Fail Pneumonia,CHF [facility] Inpatient Physical Therapy Evaluation Date: 06/15/25 Referring Doctor: Dr. Everardo Anne PT Orders: PT CONSULT: Precautions: contact, airborne Patient Profile/Admitting Diagnosis: Patient admitted 06/13/25 for medical management of pneumonia, sepsis, COPD exacerbation and CHF exacerbation. Has been managed under ICU level care. PT orders received today for evaluation and treatment. Social History/Home Situation: Patient reports that he has been residing at [facility], although he's unsure if he is there for rehab or LTC. Reports that he walks independently with his walker up and down the halls; he had been working on increasing from once a day, eventually up to 3x/day prior to getting sick. Equipment Owned/DME: [facility] Subjective: Elroy states that he pivoted to the commode with nursing, but otherwise has not walked yet since his admission. He is nervous about how his breathing will hold up, but agreeable to trying to get to the chair. Admits to pain in LLE from the fall leading up to his admission; states that his left side is sore all over. Objective: General Observation: Sitting on EOB, leaning RUE on HOB for support. Supplemental O2 via nasal cannula. Pulse oximeter to left ear. Monitored on telemetry and BP. Mental Status: A&Ox3. Pleasant and cooperative. Provides clear history. Vital Signs: monitored throughout. SaO2 has brief dip to 85% upon standing, rapidly improving to 94%. Otherwise does not dip below 92% throughout remainder of session. ROM: Right Upper Extremity: WFL Left Upper Extremity: WFL Right Lower Extremity: WFL Left Lower Extremity: WFL Strength: Right Upper Extremity: Shoulder flexion 3/5. Biceps 4-/5. Triceps 4-/5. amf mechanic is weak but equal. Left Upper Extremity: Shoulder flexion 3/5. Biceps 4-/5. Triceps 4-/5. amf mechanic is weak but equal. Right Lower Extremity: Hip flexion 3/5. Quads 4/5. Ankle DF 4/5. Left Lower Extremity: Hip flexion 3/5. Quads 4/5. Ankle DF 4/5. Patient demonstrates functional core weakness, with compensatory trunk extension and requirement of UE support during LE loading. Bed Mobility/Transfers: sit-stand: CGA stand-sit: CGA, bilat UE support Gait: Ambulates 6'x2 with FWW, CGA. Assistance for management of lines. Able to tolerate static standing with pursed lip breathing x 90 seconds. Balance: Static Sitting: good Dynamic Sitting: fair Static Standing: fair Dynamic Standing: fair Special Tests: Mobility Limitations Standardized Measure [facility] AM-PAC 6 clicks Basic Mobility Inpatient Short Form: Raw Score: 18 Standardized Score:43.63 CMS Score: 47% impairment Informed Consent/Education: Patient instructed in purpose of PT consult and plan of care. Treatment: Initial Evaluation (03120) Therapeutic Exercises ([id number]): Instructed in seated exercises, with cues for slow pace and pursed lip breathing. Requires rest for recovery between exercises. Instructed in independent completion between PT sessions, with instructions left on white board. LAQ 10x each Ankle pumps 10x seated march 10x each Able to complete ambulation 6'x2, with cues for pursed lip breathing, RPE 6-7. Assessment: Patient is a 74 year old male referred to physical therapy services in acute care setting, where he is being managed for pneumonia, sepsis, COPD exacerbation and CHF exacerbation. Patient presents with mobility impairments related to acute illness, with decreased activity tolerance and general strength. He does have baseline limitations in activity tolerance, and does not tolerate community distances. He's been at [facility] for some time, although unclear if this is for rehab or LTC. His AM-PAC score is just above cut off for discharge to community, however, despite his relative independence with transfers, his activity tolerance does not support discharge to community. Recommend return to [facility] once medically stable with resumption of rehab services to maximize functional mobility following acute illness. He currently demonstrates the following impairment level findings: 1. decreased UE strength 2. decreased LE strength 3. decreased activity tolerance (ambulates up to 6' with FWW) 4. decreased independence with ambulation Impairments are contributing to the following functional limitations: 1. unable to tolerate household or community distance ambulation 2. unable to stand > 90 seconds Patient is assessed as a Low 67924 complexity based on the following: History: Paul is a 74-year-old male seen in acute care setting where he is being managed for respiratory issues. He presents with acute on chronic mobility issues, with severe limitations in activity tolerance and independent mobility. Examination: As above Presentation: Evolving Decision Making: Low complexity Goals: Goals X1 week 1. Supine-Sit : supervision 2. Sit-Supine : supervision 3. Sit-Stand : supervision 4. Stand-Sit : supervision 5. Bed-Chair : supervision with FWW 6. Chair-Bed supervision with FWW 7. Gait supervision with FWW x 50' Plan of Care/Treatment Plan: 1-2x/day, 7 days/week x 1 week. Plan of care has been reviewed with the MANAGER BILINGUAL providing the service under Physical Therapy direction. Initiate Physical Therapy intervention for strengthening, bed mobility, transfers, gait, stairs, balance training, use of assistive device. DISCHARGE RECOMMENDATIONS: SNF for continued rehabilitation TREATMENT CODE/TIME: 5661- 4715 ([id number], [id number]) Melina Valentin, PT, DPT [facility] Active Problems Active Problems: Problem Status Onset Code Distended abdomen Acute R14.0 Lung mass Acute R91.8 Acute kidney injury superimposed on stage 3a chronic kidney disease Acute N17.9, N18.31 Severe sepsis Acute A41.9, R65.20 Sepsis Acute A41.9 CARLOS MANUEL (acute kidney injury) Acute N17.9 Acute exacerbation of chronic obstructive pulmonary disease Acute J44.1 Acute exacerbation of chronic heart failure Acute I50.9 DNR (do not resuscitate) Acute Z66 Palliative care patient Acute Z51.5 Advanced care planning/counseling discussion Acute Z71.89 Anxiety Chronic F41.9 Deficit in activities of daily living (ADL) Acute Z78.9 GERD (gastroesophageal reflux disease) Chronic K21.9 Atrial fibrillation Chronic I48.91 Steroid dependence Chronic F19.20 Acute exacerbation of CHF (congestive heart failure) Acute I50.9 Lung nodule Acute R91.1 BPH w urinary obs/LUTS Acute N40.1, N13.8 Microcytic anemia Chronic D50.9 UTI (urinary tract infection) Acute N39.0 Presence of stent in coronary artery in patient with coronary artery disease Chronic I25.10, Z95.5 Diastolic CHF Chronic I50.30 Pneumonia Acute J18.9 Medical History HTN (hypertension) Chronic renal failure Non-STEMI (non-ST elevated myocardial infarction) History of tobacco use Hypospadias Chronic kidney disease, stage 3 Peripheral arterial occlusive disease Constipation Depression Lower urinary tract symptoms (LUTS) Exertional dyspnea Pulmonary hypertension due to left heart disease Coronary artery disease Diastolic heart failure Lower back pain Dysuria Anemia, iron deficiency Heartburn Screening for colon cancer Nocturia Urinary frequency Prediabetes Hypoxemia Multiple pulmonary nodules Lumbar back pain with radiculopathy affecting lower extremity Former smoker Congestion of nasal sinus CKD (chronic kidney disease) CHF (congestive heart failure) Alcoholism in recovery Hypospadias in male COPD (chronic obstructive pulmonary disease) Hyperlipidemia Essential hypertension Surgical History History of phacoemulsification of cataract of both eyes with intraocular lens implantation History of tonsillectomy Social History Smoking/Tobacco Use Status: Former Tobacco Use Quit Date: 01/11/17 Smoking risk assessment performed?: Yes Alcohol Intake: former Year quit: 2016 Details: Former alcoholic up to 2 cases of gin per month Drug use: Never Substance use type: does not use Housing: assisted living facility Number of Children: 0 Pets and animals: Yes Pets and animals: dog(s) What is your relationship status?: Panel score (0-1 are the most socially isolated patients): 1 Do you feel safe at home: Yes Do you feel safe in your relationship?: Yes
[2025-06-15] MEDS: AZITHROMYCIN 250 MG in Normal Saline 250 ML IVPB (10:22)
[2025-06-15] MEDS: CEFEPIME 2 GM in Normal Saline 100 ML IVPB ×2 (10:22→22:10)
--- NOTE | 2025-06-15 11:31 | PGE_ITS ---
Date of Service Date of service: 06/15/25 Time of Service: 11:31 Assessment and Plan Assessment and plan (1) Severe sepsis: Status: Acute Assessment and plan: WBC 34.34, Tachypnea RR 25, lactic 2.6 then repeat 4.0 - third pending s/p IVF one liter Source respiratory as per chest imaging On Zithromax and cefepime 06/14/25 C/w abx cefepime and zmax. Lactic acid at 2.0. Blood cultures pending. MRSA swab 06/15/25 MRSA swab positive. Recheck lactic acid as well (2) Pneumonia: Status: Acute Assessment and plan: As per CT imaging and as above Pulmonary consult 06/14/25 Consult placed to Pulm/CC, but not available to Monday. Pt does appear stable at this point and does not need urgent/emergent evaluation. 06/15/25 continue with cefepime and zithromax. WBC/PE show improvement. Pt also with decreasing oxygen requirements (3) Acute exacerbation of chronic obstructive pulmonary disease: Status: Acute Assessment and plan: VBG : 7.38, 37, 22 - no hypercapnia Will continue to monitor 06/14/25 PT is on albuterol/duoneb/methylpred (severe sepsis/copd/adrenal insufficiency 2/2 illness) (4) Lung mass: Status: Acute Assessment and plan: As per CT Pulmonary consult 06/14/25 Pt potentially could benefit from bronchoscopy but will defer until pulm/cc returns (5) Acute exacerbation of CHF (congestive heart failure): Status: Acute Assessment and plan: BNP >9000 double his previous SOB , no LE edema HFpEF 06/14/25 pt with fairly aggressive fluid resuscitation. Will start iv lasix as pt might be having a chf exacerbation. Fluid balance between heart/lungs/kidneys will be challenging. Place olivares/daily weights 06/15/25 PT does have some EDGARD. Will try albumin to mobilize third spacing of fluid (6) Atrial fibrillation: Status: Chronic Assessment and plan: Hx of on coreg and Eliquis Outpatient cardiology consult requested on 05/03/25 not completed (7) GERD (gastroesophageal reflux disease): Status: Chronic Assessment and plan: Will give IV PPI (8) Steroid dependence: Status: Chronic Assessment and plan: ongoing home dose of oral steroid consider solucortef dosing if decompensation in the setting of severe sepsis 06/14/25 pt now on methyprednisolone (9) History of tobacco use: Assessment and plan: NRT (10) Palliative care encounter: Assessment and plan: Seen by Dr. Chapa on 05/13/25 From notes: #Anxiety: Recommendation: ?Resume scheduled low-dose benzodiazepine such as lorazepam 0.5 mg twice daily - Consider trial of low-dose SSRI such as escitalopram, -#COPD Recommend:1. Resume Steroids and then slowly taper as tolerated. Dexamethasone 4 mg daily for at least 2 months before previous hospital admission, hospital taper completed and home meds not restarted #Cardiac: Several CHF meds stopped when he was placed on comfort care. Suggest resuming carvediol resuming either torsemide or furosemide #Goals of care/advance care planning: Once his anxiety is better controlled, Palliative Care and his SNF medical providers should attempt GOC discussion again. When less acute will consider consult inpatient (11) Acute kidney injury superimposed on stage 3a chronic kidney disease: Status: Acute Assessment and plan: Cr 1.9 from basline 1.3-1-6 IVF bolus of 250cc NS in the ED Continue to evaluate and administer IVF PRN - last echo in 04/2025 was technically difficult but showed HFpEF (12) Presence of stent in coronary artery in patient with coronary artery disease: Status: Chronic Assessment and plan: Hx of in 2019 not on plavix and ASA but Eliquis for A-fib Troponin 61- then 79 trop # 3 at 3 hours - flat 89 will repeat PRN if exacerbation of symptoms On Eliquis for atrial fibrillation - no pharmacological DVT prophylaxis at this time Discussed with Dr. Omid hassan (13) Distended abdomen: Status: Acute Assessment and plan: check abd film Subjective Subjective Interval history since last seen: Pt seen and examined in his room. Pt states that he is feeling better with decreasing cough Exam Narrative Exam Narrative: heent-ncat mmm 3.5NC neck-no lad no jvd cv-rrr no mrg lungs-bilat wheeze with crackles. No amu abd-sntndbsa ext-no cce bilat neuro-responds to verbal stimuli appropriately Objective Last Vital Signs Temp 36.3 C L 06/15/25 08:00 Pulse 79 06/15/25 06:01 Resp 19 06/15/25 06:30 BP 168/69 H 06/15/25 06:01 Pulse Ox 90 L 06/15/25 08:00 Laboratory Results - last 24 hr 06/14/25 06/14/25 06/15/25 16:00 23:35 08:04 WBC 21.80 H RBC 4.31 L Hgb 8.8 L Hct 28.4 L MCV 66 L MCH 20.4 L MCHC 31.0 L RDW 16.7 H Plt Count 355 MPV 9.9 VBG pH 7.34 VBG pCO2 38 L VBG pO2 83 VBG HCO3 21 L VBG Total CO2 20 L VBG O2 Saturation 97 VBG Base Excess -5 L Sodium 135 L Potassium 4.3 Chloride 101 Carbon Dioxide 24.7 Anion Gap 9.3 BUN 58 H Creatinine 2.2 H Est GFR (CKD-EPI 2020) 31.05 Glucose 161 H Calcium 9.1 Total Bilirubin 0.9 AST 27 ALT 15 L Alkaline Phosphatase 77 Total Protein 7.0 Albumin 2.5 L MRSA (TEM-PCR) Positive A PAWSS Have you Been Recently Intoxicated or Drunk Within the Last 30 days?: No Have you Ever Experienced Previous Episodes of Alcohol Withdrawal?: No Have you ever Experienced Withdrawal Seizures?: No Have you ever Experienced Delirium Tremens(DT)s?: No Have you ever undergone Alcohol Rehabilitation Treatment (i.e, inpt ot outpatient treatment programs)?: No Have you ever Experienced Blackouts?: No Have you ever Combined Alcohol with other Downers within the last 90 days?: No Have you ever Combined Alcohol with any other Substance of Abuse during the last 90 days?: No Positive Blood Alcohol level on Presentation? [PCS.BAL]: No Evidence of Increased Autonomic Activity (i.e. HR>120, tremor, sweating, agitation, nausea)?: No Result: 0 Time Spent with Patient Time Spent with Patient: 25-34 minutes Time was spent: preparing to see the patient(eg.review tests), obtaining and/or reviewing separately otained hiistory, ordering medications,tests, procedures, referring, communicating with other health skin care instructor, indepentently interpreting results, counseling the patient and care coordination
[2025-06-15] MEDS: ALBUMIN HUMAN 25 GM/100 ML BTL IVPB (12:28)
[2025-06-15] MEDS: oxyCODONE 5 MG TAB PO ×2 (14:09→23:27)
[2025-06-16] VITALS (46 sets, daily range): BP systolic 131–193; BP diastolic 60–111; PULSE 58–116; RESP 12–27; TEMP 36.1–36.5; O2SAT 81–98
--- NOTE | 2025-06-16 | DI.RAD_ITS ---
Exam(s) XR CHEST 2V PA LATERAL EXAM: XR CHEST 2V PA LATERAL CLINICAL HISTORY: Pneumonia TECHNIQUE: 2D digital imaging was performed of the chest. Two images were obtained. PA and lateral views were obtained. COMPARISON: CT CT CHEST W from 06/13/2025 CR XR CHEST 2V PA LATERAL from 06/13/2025 FINDINGS: MEDIASTINUM: Normal. HEART: Normal. PULMONARY VASCULATURE: Normal. LUNGS: There is a persistent right upper lobe pneumonia present. There appears to be increasing consolidation in the right upper lobe compared to the prior examination from 06/13/2025. The possibility of a loculated effusion, abscess or empyema should be considered. The left lung remains clear. PLEURAL SPACE: No pleural effusion or pneumothorax. BONE:Within normal limits for the patient's age. OTHER FINDINGS:Normal. IMPRESSION: 1. Persistent right upper lobe pneumonia. 2. There is increased consolidation in the lateral aspect of the right upper lobe. While this may be further consolidation of the pneumonia, a loculated effusion, abscess or empyema should be considered. A CT scan of the chest should be considered for further evaluation. DATA REPOSITORY: RADIATION DOSE DELIVERED:
[2025-06-16] MEDS: methylPREDNISolone SUCC 40 MG VIAL 80 MG IVP (03:23)
[2025-06-16] MEDS: Albuterol HFA 8 GM 60 PUFF INH IH (03:23)
[2025-06-16] MEDS: LORazepam 0.5 MG TAB PO ×3 (03:31→19:42)
[2025-06-16] MEDS: Carvedilol 25 MG TAB PO (06:04)
[2025-06-16 06:07] LABS: Abs Immature Grans 0.06 10^3/uL (0.0-0.06); HCT 27.4 % (40.0-50.0); HGB 8.8 g/dL (13.5-17.5); Immature Grans % 0.4 %; MCH 21.3 pg (27.0-33.0); MCHC 32.1 % (32.0-36.0); MCV 66 fL (80-95); MPV 10.2 fL (8.0-11.0); Platelet Count 359 10^3/uL (130-400); RBC 4.14 10^6/uL (4.36-5.78); RDW 16.9 % (11.8-14.1); RDW-SD 38.0 fL; WBC 13.77 10^3/uL (4.4-10.8)
[2025-06-16] MEDS: Albuterol/Ipratropium 3 ML UPD VIAL UPD (06:21)
[2025-06-16 06:27] LABS: ALT 18 U/L (16-63); AST 17 U/L (15-37); Albumin 2.8 g/dL (3.4-5.0); Alkaline Phosphatase 71 U/L (46-116); Anion Gap 6.5 mmol/L (3-11); BUN 67 mg/dL (7-18); Bilirubin, Total 0.8 mg/dL (0.2-1.0); CO2 27.5 mmol/L (21.0-32.0); Calcium 9.0 mg/dL (8.5-10.1); Chloride 101 mmol/L (98-107); Estimated GFR 31.05 (mL/min/1.73m2); Glucose 164 mg/dL (74-106); Potassium 3.6 mmol/L (3.5-5.1); Sodium 135 mmol/L (136-145); Total Protein 7.3 g/dL (6.4-8.2)
[2025-06-16] MEDS: Pantoprazole 40 MG TABCR PO (07:04)
[2025-06-16] MEDS: Ipratropium/Albuterol 4 GM 120 PUFF INH IH ×4 (07:53→20:15)
--- NOTE | 2025-06-16 08:08 | W.PULMCON ---
General Date Of Service Date of service: 06/16/25 Time of Service: 07:30 Reason for Consult: Pneumonia Recommendations: Assessment: 1. Acute hypoxemic respiratory failure - due to pneumonia and COPD exacerbation - currently on 1 L O2 2. Severe sepsis - due to pneumonia 3. Pneumonia - infectious workup positive for MRSA nasal swab. Bld cultures negative. Lower suspicion for active TB, but cannot rule out. Fungal pneumonia also possible, but less likley. Has responded to azithromycin / cefepime, so less likely MRSA pneumonia. No cavitary lung disease present 4. COPD exacerbation - Gold class 2E 5. Microcytic anemia - suspect iron deficiency 6. Acute on chronic renal failure - Cr 2.2 7. Pulmonary nodules - ~1.5 cm partially calcified nodule in the anterior RUL with a smaller satellite nodule - stable from 08/2020 to 06/2025, suggesting a benign etiology Plan: - repeat 2 view CXR - check urine strep ag, legionella urine ag, and mycoplasma IgM - continue cefepime and azithromycin for pneumonia at this time. He has responded well to this therapy, given improved oxygen requirements and improved WBC. This makes MRSA pneumonia less likely. Given his renal dysfunction, will hold off on vancomycin for the time being. Given interaction with venlafaxine, also hold on linezolid - he has been unable to produce any sputum samples, so will plan for bronchoscopy tomorrow. Will obtain BAL of the RUL and send for bacterial, fungal, and AFB cultures. Continue AFB isolation for now. The risks (bleeding, pneumonthorax, respiratory failure, cough, pain), benefits, and alternatives were discussed with the patient. He is agreeable to proceed. - decrease methylpred to 62.5 mg daily - continue bronchodilators - consider iron studies, given microcytic anemia - hold eliquis for bronchoscopy tomorrow Discussed with Dr. Anne History of Present Illness History of Present Illness Chief Complaint: Dyspnea Narrative: Patient is a 74 yo with a history of COPD, CAD, tobacco abuse and CKD who was admitted for right upper lobe pneumonia. He reported feeling unwell since 01/2025. Has had intermittent evaluations since that time. Symptoms worsened recently, prompting his current admission. Reports subjective fevers at home. Has a cough but not producing sputum. Denied any hemoptysis. No chest pain. CT chest showed a severe RUL pneumonia. No pleural effusions. He has a 1.5 cm partially calficied nodule that has been stable for years. He has very poor dentition. Denied any aspiration episodes. No known TB exposures. Currently living in nursing facility / assisted living. Currently on 1 L O2. WBC improved. No sputum production over the past day. Dyspnea has improved. Family history: mother - COPD Smoking history: smoked 1 ppd x 50 years. Active TB exposures: no known exposures ROS: 10 pt ROS negative except as in HPI PFSH All Active Problems (Updated 06/14/25 @ 11:09 by Everardo Anne MD) Distended abdomen (Acute) Lung mass (Acute) Acute kidney injury superimposed on stage 3a chronic kidney disease (Acute) Severe sepsis (Acute) Sepsis (Acute) CARLOS MANUEL (acute kidney injury) (Acute) Acute exacerbation of chronic obstructive pulmonary disease (Acute) Acute exacerbation of chronic heart failure (Acute) DNR (do not resuscitate) (Acute) As of 05/13/2025: Code status frequently changing. As of 05/13/2025: DNR, +trial of intubation, transfer and treat. Palliative care patient (Acute) Advanced care planning/counseling discussion (Acute) Anxiety (Chronic) Deficit in activities of daily living (ADL) (Acute) GERD (gastroesophageal reflux disease) (Chronic) Atrial fibrillation (Chronic) Steroid dependence (Chronic) Acute exacerbation of CHF (congestive heart failure) (Acute) Lung nodule (Acute) BPH w urinary obs/LUTS (Acute) Microcytic anemia (Chronic) UTI (urinary tract infection) (Acute) Presence of stent in coronary artery in patient with coronary artery disease (Chronic) Diastolic CHF (Chronic) Pneumonia (Acute) Medical History HTN (hypertension) Chronic renal failure Non-STEMI (non-ST elevated myocardial infarction) History of tobacco use Hypospadias Chronic kidney disease, stage 3 Peripheral arterial occlusive disease Constipation Depression Lower urinary tract symptoms (LUTS) Exertional dyspnea Pulmonary hypertension due to left heart disease Coronary artery disease Diastolic heart failure Lower back pain Dysuria Anemia, iron deficiency Heartburn Screening for colon cancer Nocturia Urinary frequency Prediabetes Hypoxemia Multiple pulmonary nodules Lumbar back pain with radiculopathy affecting lower extremity Former smoker Congestion of nasal sinus CKD (chronic kidney disease) CHF (congestive heart failure) Alcoholism in recovery Hypospadias in male COPD (chronic obstructive pulmonary disease) Hyperlipidemia Essential hypertension Surgical History History of phacoemulsification of cataract of both eyes with intraocular lens implantation History of tonsillectomy Family History Father Throat cancer Heart disease Myocardial infarction Brother Heart disease Status post coronary stents Social History Smoking/Tobacco Use Status: Former Tobacco Use Quit Date: 01/11/17 Smoking risk assessment performed?: Yes Alcohol Intake: former Year quit: 2016 Details: Former alcoholic up to 2 cases of gin per month Drug use: Never Substance use type: does not use Housing: assisted living facility Number of Children: 0 Pets and animals: Yes Pets and animals: dog(s) What is your relationship status?: Panel score (0-1 are the most socially isolated patients): 1 Do you feel safe at home: Yes Do you feel safe in your relationship?: Yes Visit Medication and Allergies Active Medications Generic Name Dose Route Start Last Admin Trade Name Freq PRN Reason Stop Dose Admin Acetaminophen 650 mg 06/13/25 12:22 06/15/25 21:00 Acetaminophen 325 Mg Tab PO 650 mg Q4H PRN PRN Administration Al Hydrox/Mg Hydrox/Simethicone 30 ml 06/13/25 12:22 Mylanta Suspension 30 Ml Cup PO Q2H PRN PRN Albuterol Sulfate 2 puff 06/13/25 14:06 06/16/25 03:23 Albuterol Hfa 8 Gm 60 Puff Inh IH 2 inh Q4H PRN PRN Administration Albuterol/Ipratropium 1 puff 06/13/25 16:00 06/16/25 07:53 Ipratropium/Albuterol 4 Gm 120 Puff Inh IH 1 puff QID MAIA Administration Albuterol/Ipratropium 3 ml 06/14/25 00:32 06/16/25 06:21 Albuterol/Ipratropium 3 Ml Upd Vial UPD 3 ml Q4H PRN PRN Administration Apixaban 5 mg 06/13/25 20:00 06/15/25 19:30 Apixaban 5 Mg Tab PO 5 mg BID MAIA Administration Bacteriostatic Water 0 ml 06/14/25 02:50 Water,Injection,Bacteriostatic 30 Ml Vial IJ DIRECTED PRN Carvedilol 25 mg 06/14/25 08:30 06/16/25 06:04 Carvedilol 25 Mg Tab PO 25 mg DAILY MAIA Administration Docusate Sodium 100 mg 06/13/25 20:00 06/15/25 20:58 Docusate Sodium 100 Mg/10 Ml Cup PO 100 mg TID MAIA Administration Furosemide 40 mg 06/14/25 14:00 06/15/25 19:30 Furosemide 40 Mg/4 Ml Vial IVP 40 mg TID MAIA Administration Guaifenesin 600 mg 06/13/25 20:00 06/15/25 19:30 Guaifenesin 600 Mg Tabcr PO 600 mg BID MAIA Administration Cefepime HCl 2 gm/ Sodium 100 mls @ 200 mls/hr 06/13/25 22:00 06/16/25 03:23 Chloride IVPB Infused Q12H MAIA Infusion Azithromycin 250 mg/ Sodium 250 mls @ 250 mls/hr 06/14/25 10:00 06/15/25 11:35 Chloride IVPB Infused Q24H MAIA Infusion IV Miscellaneous Supplies 1 each 06/13/25 12:22 Iv Access IV DIRECTED MAIA Lorazepam 0.5 mg 06/13/25 22:16 06/16/25 03:31 Lorazepam 0.5 Mg Tab PO 0.5 mg Q4H PRN PRN Administration Methylprednisolone Sodium Succinate 80 mg 06/14/25 04:00 06/16/25 03:23 Methylprednisolone Succ 40 Mg Vial IVP 80 mg Q8H MAIA Administration Morphine Sulfate 2 mg 06/14/25 01:07 06/14/25 13:13 Morphine 2 Mg/Ml Syr IVP 2 mg Q2H PRN PRN Administration Nicotine 21 mg 06/14/25 08:30 06/15/25 08:04 Nicotine 21 Mg/24 Hr Patch TD 21 mg DAILY MAIA Administration Oxycodone HCl 5 mg 06/13/25 12:22 06/15/25 23:27 Oxycodone 5 Mg Tab PO 5 mg Q4H PRN PRN Administration Pantoprazole Sodium 40 mg 06/14/25 07:30 06/16/25 07:04 Pantoprazole 40 Mg Tabcr PO 40 mg DAILY@0730 MAIA Administration Polyethylene Glycol 17 gm 06/13/25 12:22 Polyethylene Glycol 3350 17 Gm Packet PO DAILY PRN PRN Constipation Prednisolone Sodium Phosphate 10 mg 06/14/25 08:30 Prednisolone Sod Phos. Soln. 3 Mg/Ml PO On Hold: 06/14/25 08:30 DAILY MAIA Comment: pt on solumedrol Sodium Chloride 0 ml 06/13/25 12:22 06/15/25 12:28 Normal Saline Flush 10 Ml Syr IVP 20 ml PRN PRN Administration Sodium Chloride 0 ml 06/13/25 20:00 06/15/25 19:30 Normal Saline Flush 10 Ml Syr IVP 40 ml BID MAIA Administration Sodium Chloride 0 ml 06/13/25 12:22 Normal Saline 10 Ml Vial IJ DIRECTED PRN Venlafaxine HCl 75 mg 06/14/25 08:30 06/15/25 08:05 Venlafaxine 75 Mg Capcr PO 75 mg DAILY MAIA Administration Allergies lisinopril Adverse Reaction (Unknown, Unverified 05/03/25 02:05) low BP, worsening CKD codeine phosphate (From Tylenol-Codeine) Adverse Reaction (Unverified 05/03/25 02:05) constipation Exam Narrative Exam Narrative: General: alert, no acute distress Head: normocephalic ENT: no stridor, trachea midline CV: normal rate, regular rhythm Respiratory: no wheezing, no crackles, right sided rhonchi, no prolonged expiration GI: abd soft, non-tender, non-distended Skin: no rashes Extremities: +1 edema, no digital clubbing Psych: normal affect Results Last Vital Signs Temp 36.5 C 06/16/25 02:42 Pulse 63 06/16/25 04:00 Resp 19 06/16/25 06:21 BP 192/93 H 06/16/25 02:42 Pulse Ox 92 06/16/25 07:52 Labs 06/16/25 05:57 06/16/25 05:57 Labs: Laboratory Results - last 24 hr 06/15/25 06/16/25 08:04 05:57 WBC 21.80 H 13.77 H RBC 4.31 L 4.14 L Hgb 8.8 L 8.8 L Hct 28.4 L 27.4 L MCV 66 L 66 L MCH 20.4 L 21.3 L MCHC 31.0 L 32.1 RDW 16.7 H 16.9 H Plt Count 355 359 MPV 9.9 10.2 Immature Gran % 0.4 Neutrophils % 94.5 Lymphocytes % 3.2 Monocytes % 1.9 Eosinophils % 0.0 Basophils % 0.0 Nucleated RBC % 0.7 H Absolute Neutrophils 13.01 H Absolute Lymphocytes 0.44 L Absolute Monocytes 0.26 Absolute Eosinophils 0.00 Absolute Basophils 0.00 VBG Lactate 0.8 Sodium 135 L 135 L Potassium 4.3 3.6 Chloride 101 101 Carbon Dioxide 24.7 27.5 Anion Gap 9.3 6.5 BUN 58 H 67 H Creatinine 2.2 H 2.2 H Est GFR (CKD-EPI 2020) 31.05 31.05 Glucose 161 H 164 H Calcium 9.1 9.0 Total Bilirubin 0.9 0.8 AST 27 17 ALT 15 L 18 Alkaline Phosphatase 77 71 Total Protein 7.0 7.3 Albumin 2.5 L 2[address] scan - chest: report reviewed and image reviewed Additional studies: PFT: personally reviewed 08/2020: ratio 51, FEV1 57, FVC 80, TLC 106, DLCO 42, positive BD response
[2025-06-16] MEDS: Nicotine 21 MG/24 HR PATCH TD (08:17)
[2025-06-16] MEDS: Furosemide 40 MG/4 ML VIAL IVP ×2 (08:17→19:41)
[2025-06-16] MEDS: Docusate Sodium 100 MG/10 ML CUP PO ×3 (08:17→19:42)
[2025-06-16] MEDS: guaiFENesin 600 MG TABCR PO ×2 (08:17→19:42)
[2025-06-16] MEDS: Venlafaxine 75 MG CAPCR PO (08:17)
[2025-06-16] MEDS: Normal Saline Flush 10 ML SYR IVP ×4 (08:18→19:42)
--- NOTE | 2025-06-16 09:09 | CMPROGNOTE_ITS ---
Date of service: 06/16/25 Time of Service: 09:10 Care Management Progress Note Progress Note Text Progress Note Text: Elroy was sitting on the side of the bed when CM met with him. He was pleasant in manner and readily engaged with CM. Today elroy informed CM that he is going to have a bronchoscopy tomorrow. He stated that he is not nervous about the procedure and is hopeful that it will bring answers. Elroy's oxygen needs are improving. He is now requiring only 1 L/min of nasal oxygen and is maintaining his saturation level in the low to mid 90s. CM will follow. Discharge Potential Discharge Needs: PCP F/U Appt and Other (SNF) Anticipated Barriers to Discharge: None Identified Patient/Family Education Needs: Review discharge instructions, discuss Ask Me Three Transportation: Private vehicle Plan: Anticipate Elroy will be transferred back to [facility] when medically cleared. He will follow up with his facility providers and plan of care and transport via [facility]. CM will continue to support discharge planning. Social Determinants of Health Screening Will the Patient Participate in the Screening?: Declined to provide Do you worry about having a steady place to live?: no In the past 12 months, have you had to go without electric, gas, oil or water in your home?: no Comments: lives in a rehab facility
[2025-06-16] MEDS: CEFEPIME 2 GM in Normal Saline 100 ML IVPB ×2 (09:39→21:51)
[2025-06-16] MEDS: hydrOXYzine HCL 10 MG TAB PO ×2 (09:48→20:45)
[2025-06-16 09:49] LABS: Procalcitonin 44.60 ng/mL
--- NOTE | 2025-06-16 10:38 | W.PM.PROGNOT ---
Date of Service Date of service: 06/16/25 Time of Service: 10:38 Assessment and Plan Assessment and plan (1) Severe sepsis: Status: Acute Assessment and plan: WBC 34.34, Tachypnea RR 25, lactic 2.6 then repeat 4.0 - third pending s/p IVF one liter Source respiratory as per chest imaging On Zithromax and cefepime 06/14/25 C/w abx cefepime and zmax. Lactic acid at 2.0. Blood cultures pending. MRSA swab 06/15/25 MRSA swab positive. Recheck lactic acid as well 06/16/25 Pt is going to have a bronchoscopy. Quantiferon, legionella, myco IgG, IgM, strep pneumo ordered. Lactate levels have normalized cw current abx per pulm (2) Pneumonia: Status: Acute Assessment and plan: As per CT imaging and as above Pulmonary consult 06/14/25 Consult placed to Pulm/CC, but not available to Monday. Pt does appear stable at this point and does not need urgent/emergent evaluation. 06/15/25 continue with cefepime and zithromax. WBC/PE show improvement. Pt also with decreasing oxygen requirements (3) Acute exacerbation of chronic obstructive pulmonary disease: Status: Acute Assessment and plan: VBG : 7.38, 37, 22 - no hypercapnia Will continue to monitor 06/14/25 PT is on albuterol/duoneb/methylpred (severe sepsis/copd/adrenal insufficiency 2/2 illness) 06/16/25 methylprednisone has been decreased per my disussion with pulm 60mg iv daily (4) Lung mass: Status: Acute Assessment and plan: As per CT Pulmonary consult 06/14/25 Pt potentially could benefit from bronchoscopy but will defer until pulm/cc returns 06/16/25 Pt is for bronchoscopy tomorrow. Eliquis is being held and on scd's in the interim (5) Acute exacerbation of CHF (congestive heart failure): Status: Acute Assessment and plan: BNP >9000 double his previous SOB , no LE edema HFpEF 06/14/25 pt with fairly aggressive fluid resuscitation. Will start iv lasix as pt might be having a chf exacerbation. Fluid balance between heart/lungs/kidneys will be challenging. Place olivares/daily weights 06/15/25 PT does have some EDGARD. Will try albumin to mobilize third spacing of fluid 06/16/25 Pt did not give olivares 2/2 hypospadius. Pt does have an elevated BNP and I will attach results of last echo 04/15/25. Pt is on coreg and lasix. Hesitant to start boni/arb/aldactone but will start low dose and monitor. Depending on results, consider adding SGLT2P as well. Pt does have lisinopril listed as an allergy (low BP, worsening CKD). Conclusion Technically very difficult and suboptimal study Mild concentric left ventricular hypertrophy. Overall left ventricular systolic function appears within the range of normal. No segmental wall motion abnormalities are identified Right atrium and right ventricle are not well-visualized Normal left atrial size Within the limits of the study, no abnormalities of the aortic or mitral valve are identified (6) Atrial fibrillation: Status: Chronic Assessment and plan: Hx of on coreg and Eliquis Outpatient cardiology consult requested on 05/03/25 not completed 06/16/25 Pt on eliquis but this is being held pending bronchoscopy (7) GERD (gastroesophageal reflux disease): Status: Chronic Assessment and plan: Will give IV PPI 06/16/25 pt on protonix 40mg po daily. (8) Steroid dependence: Status: Chronic Assessment and plan: ongoing home dose of oral steroid consider solucortef dosing if decompensation in the setting of severe sepsis 06/14/25 pt now on methyprednisolone (9) History of tobacco use: Assessment and plan: NRT (10) Palliative care encounter: Assessment and plan: Seen by Dr. Chapa on 05/13/25 From notes: #Anxiety: Recommendation: ?Resume scheduled low-dose benzodiazepine such as lorazepam 0.5 mg twice daily - Consider trial of low-dose SSRI such as escitalopram, -#COPD Recommend:1. Resume Steroids and then slowly taper as tolerated. Dexamethasone 4 mg daily for at least 2 months before previous hospital admission, hospital taper completed and home meds not restarted #Cardiac: Several CHF meds stopped when he was placed on comfort care. Suggest resuming carvediol resuming either torsemide or furosemide #Goals of care/advance care planning: Once his anxiety is better controlled, Palliative Care and his SNF medical providers should attempt GOC discussion again. When less acute will consider consult inpatient (11) Acute kidney injury superimposed on stage 3a chronic kidney disease: Status: Acute Assessment and plan: Cr 1.9 from basline 1.3-1-6 IVF bolus of 250cc NS in the ED Continue to evaluate and administer IVF PRN - last echo in 04/2025 was technically difficult but showed HFpEF 06/16/25 Pt has had CKD III at least since 01/2023 which is the first obsevable data point. Consider renal usn but most likely would be low yield. Imagine components or pre renal as well as renal processes (12) Presence of stent in coronary artery in patient with coronary artery disease: Status: Chronic Assessment and plan: Hx of in 2019 not on plavix and ASA but Eliquis for A-fib Troponin 61- then 79 trop # 3 at 3 hours - flat 89 will repeat PRN if exacerbation of symptoms On Eliquis for atrial fibrillation - no pharmacological DVT prophylaxis at this time (13) Distended abdomen: Status: Acute Assessment and plan: check abd film 06/16/25 abd film was benign. BM documented 06/14/25 Subjective Subjective Interval history since last seen: Pt seen and examined in his room this am. POC d/w Pulm/CC as well as bedside nurse during ICU huddle. Pt states that he is feeling better. Exam Narrative Exam Narrative: General: alert, no acute distress Head: normocephalic ENT: no stridor, trachea midline CV: normal rate, regular rhythm Respiratory: bilat in/ex wheezing, no crackles, right sided rhonchi, no prolonged expiration GI: abd soft, non-tender, non-distended Skin: no rashes Extremities: +1 edema, no digital clubbing Psych: normal affect Objective Last Vital Signs Temp 36.4 C L 06/16/25 08:39 Pulse 73 06/16/25 08:39 Resp 19 06/16/25 08:39 BP 149/78 H 06/16/25 08:39 Pulse Ox 94 06/16/25 08:39 Laboratory Results - last 24 hr 06/16/25 05:57 WBC 13.77 H RBC 4.14 L Hgb 8.8 L Hct 27.4 L MCV 66 L MCH 21.3 L MCHC 32.1 RDW 16.9 H Plt Count 359 MPV 10.2 Immature Gran % 0.4 Neutrophils % 94.5 Lymphocytes % 3.2 Monocytes % 1.9 Eosinophils % 0.0 Basophils % 0.0 Nucleated RBC % 0.7 H Absolute Neutrophils 13.01 H Absolute Lymphocytes 0.44 L Absolute Monocytes 0.26 Absolute Eosinophils 0.00 Absolute Basophils 0.00 VBG Lactate 0.8 Sodium 135 L Potassium 3.6 Chloride 101 Carbon Dioxide 27.5 Anion Gap 6.5 BUN 67 H Creatinine 2.2 H Est GFR (CKD-EPI 2020) 31.05 Glucose 164 H Calcium 9.0 Total Bilirubin 0.8 AST 17 ALT 18 Alkaline Phosphatase 71 Total Protein 7.3 Albumin 2.8 L Procalcitonin 44.60 PAWSS Have you Been Recently Intoxicated or Drunk Within the Last 30 days?: No Have you Ever Experienced Previous Episodes of Alcohol Withdrawal?: No Have you ever Experienced Withdrawal Seizures?: No Have you ever Experienced Delirium Tremens(DT)s?: No Have you ever undergone Alcohol Rehabilitation Treatment (i.e, inpt ot outpatient treatment programs)?: No Have you ever Experienced Blackouts?: No Have you ever Combined Alcohol with other Downers within the last 90 days?: No Have you ever Combined Alcohol with any other Substance of Abuse during the last 90 days?: No Positive Blood Alcohol level on Presentation? [PCS.BAL]: No Evidence of Increased Autonomic Activity (i.e. HR>120, tremor, sweating, agitation, nausea)?: No Result: 0 Time Spent with Patient Time Spent with Patient: 35-49 minutes Time was spent: preparing to see the patient(eg.review tests), obtaining and/or reviewing separately otained hiistory, ordering medications,tests, procedures, referring, communicating with other health director career services, indepentently interpreting results, counseling the patient and care coordination
[2025-06-16] MEDS: AZITHROMYCIN 250 MG in Normal Saline 250 ML 200 MG IVPB (10:43)
[2025-06-16] MEDS: hydrALAZINE 20 MG/ML VIAL 10 MG IVP ×2 (14:08→18:12)
--- NOTE | 2025-06-16 15:06 | PT.INTREAT ---
PT Notes Visit Reasons: Severe Sepsis, Hypoxic Resp Fail Pneumonia,CHF [facility] Treatment Note [facility] Date: 06/16/2025 PRECAUTIONS: Activity as tolerated. Fall. Droplet and contact precautions. SUBJECTIVE: Still short of breath but was willing to work with PT. Reported a twinge of pain when he stood up from edge of bed to standing. Per Nurse Jun, patient is still weak and short of breath. OBJECTIVE: Telemetry monitoring in place.? IV access through the L UE. Dyspneic at rest. ? PAIN: Short-lived twinge of pain through L low back when he tried to stand up to walk back around foot of bed to his chair. VITALS: ?Oxygen saturation ranged from 85%-95% throughout session on 1L/minute via NC HR from 77-86 bpm throughout ? BED MOBILITY/TRANSFERS?:? Supine-sit: stand by assist using elbows for support? Sit-stand: contact guard assist?with FWW? Stand-sit: contact guard assist?with FWW? Bed-Chair: contact guard assist?with FWW? Chair-bed: contact guard assist?with FWW? GAIT? Assistive Device: FWW? Weight bearing: FWB Assist: Contact guard assist ? Distance:? 12 steps around FOB + 15 steps around HOB and to the bedside chair ? Deviation: Decreased gait speed. Short step height and length. Minimal cues provided for AD management and self pacing. ? STAIRS: Not done due to current precautions. ? THERA EX: Provided direct instructions on safe and correct performance of seated exercises as follows. PT Gt conducted the last three exercises with patient: Chest expansion exercises incorporated into deep breathing exercises x 5, shoulders into flexion/extension Chest expansion exercises incorporated into deep breathing exercises x 5, shoulders into horizontal abduction and adduction Seated marches x 5 LAQs x 3 for 2 sets Ankle DF/PF x 10 ASSESSMENT:? Fatigues easily, needs frequent rests. Dyspnea worsened with activity but oxygen saturation remained above 90% on 1 L/minute. Patient was agreeable to walking inside his room with a walker, first around the foot of the bed to be safe and then, after resting for about 3 minutes, from the opposite edge of the bed to the bedside chair with just contact guard assist. PT Gt present in room assisting. With activity pacing, patient was able to perform more and safer today. He will continue to benfit from services to improve activity tolerance, balance, strength and overall mobility level. PLAN: Progress strength, balance, activity toelrance, and functional mobility level as tolerated. DISCHARGE RECOMMENDATION: Short-term rehab upon return to SNF. TREATMENT CODE/TIME: 43582 x 30 minutes, 57744 x 18 minutes (15:06-15:53).
[2025-06-16] MEDS: oxyCODONE 5 MG TAB PO (16:06)
[2025-06-16] MEDS: Acetaminophen 325 MG TAB 650 MG PO (16:06)
[2025-06-17] VITALS (52 sets, daily range): BP systolic 87–167; BP diastolic 57–113; PULSE 66–142; RESP 11–34; TEMP 36–36.7; TEMPC 36; O2SAT 6–100; BMI 30.7
[2025-06-17 06:01] LABS: Abs Immature Grans 0.13 10^3/uL (0.0-0.06); HCT 27.1 % (40.0-50.0); HGB 8.8 g/dL (13.5-17.5); Immature Grans % 0.8 %; MCH 20.9 pg (27.0-33.0); MCHC 32.5 % (32.0-36.0); MCV 64 fL (80-95); MPV 9.9 fL (8.0-11.0); Platelet Count 376 10^3/uL (130-400); RBC 4.22 10^6/uL (4.36-5.78); RDW 16.9 % (11.8-14.1); RDW-SD 37.5 fL; WBC 17.17 10^3/uL (4.4-10.8)
[2025-06-17 06:19] LABS: Iron 48 ug/dL (65-175); Total Iron Binding Capacity 163 ug/dL (250-450); Transferrin Sat 29 % (20-55)
[2025-06-17 06:21] LABS: ALT 19 U/L (16-63); AST 12 U/L (15-37); Albumin 2.7 g/dL (3.4-5.0); Alkaline Phosphatase 66 U/L (46-116); Anion Gap 10.2 mmol/L (3-11); BUN 65 mg/dL (7-18); Bilirubin, Total 0.8 mg/dL (0.2-1.0); CO2 29.8 mmol/L (21.0-32.0); Calcium 9.0 mg/dL (8.5-10.1); Chloride 102 mmol/L (98-107); Estimated GFR 42.30 (mL/min/1.73m2); Glucose 126 mg/dL (74-106); Potassium 3.0 mmol/L (3.5-5.1); Sodium 142 mmol/L (136-145); Total Protein 7.0 g/dL (6.4-8.2)
[2025-06-17] MEDS: Ipratropium/Albuterol 4 GM 120 PUFF INH IH ×4 (07:50→20:22)
[2025-06-17 07:57] LABS: Magnesium 2.1 mg/dL (1.8-2.4)
--- NOTE | 2025-06-17 08:02 | PUCON_ITS ---
General Date Of Service Date of service: 06/17/25 Time of Service: 07:30 Reason for Consult: Pneumonia Recommendations: Assessment: 1. Acute hypoxemic respiratory failure - due to pneumonia and COPD exacerbation - currently on 1 L O2 2. Severe sepsis - due to pneumonia 3. Pneumonia - infectious workup positive for MRSA nasal swab. Bld cultures negative. Lower suspicion for active TB, but cannot rule out. Fungal pneumonia also possible, but less likely. WBC increased today. 4. COPD exacerbation - underlying class 2E COPD 5. Microcytic anemia 6. Acute on chronic renal failure - Cr improved to 1.7 7. Pulmonary nodules - ~1.5 cm partially calcified nodule in the anterior RUL with a smaller satellite nodule - stable from 08/2020 to 06/2025, suggesting a benign etiology Plan: - plan for bronchoscopy with RUL BAL later this AM. Will need to be in negative pressure until active TB is ruled out. The risks (bleeding, pneumonthorax, respiratory failure, cough, pain), benefits, and alternatives were discussed with the patient. He is agreeable to proceed. - follow up on urine strep ag, legionella urine ag, and mycoplasma IgM - given rise in WBC, will change antibiotics to vancomycin, zosyn, and azithromycin. Given poor dentition, anaerobic infection is a concern. D/C cefepime - continue methylpred to 62.5 mg daily - continue bronchodilators - hold eliquis for bronchoscopy today. Can resume tomorrow evening, provided no bleeding issues arise with bronchoscopy - replace K and check Mg level Discussed with Dr. Rangel History of Present Illness History of Present Illness Chief Complaint: Dyspnea Narrative: Patient is a 74 yo with a history of COPD, CAD, tobacco abuse and CKD who was admitted for right upper lobe pneumonia. He reported feeling unwell since 01/2025. Has had intermittent evaluations since that time. Symptoms worsened recently, prompting his current admission. Reports subjective fevers at home. Has a cough but not producing sputum. Denied any hemoptysis. No chest pain. CT chest showed a severe RUL pneumonia. No pleural effusions. He has a 1.5 cm partially calficied nodule that has been stable for years. He has very poor dentition. Denied any aspiration episodes. No known TB exposures. Currently living in nursing facility / assisted living. Currently on 1 L O2. WBC increased today. Denies significant sputum production. Has some sharp right sided chest pain with inspiration. No hemoptysis. Denied dyspnea at rest. Has bene NPO Family history: mother - COPD Smoking history: smoked 1 ppd x 50 years. Active TB exposures: no known exposures ROS: 6 pt ROS negative except as in HPI PFSH All Active Problems (Updated 06/14/25 @ 11:09 by Everardo Anne MD) Distended abdomen (Acute) Lung mass (Acute) Acute kidney injury superimposed on stage 3a chronic kidney disease (Acute) Severe sepsis (Acute) Sepsis (Acute) CARLOS MANUEL (acute kidney injury) (Acute) Acute exacerbation of chronic obstructive pulmonary disease (Acute) Acute exacerbation of chronic heart failure (Acute) DNR (do not resuscitate) (Acute) As of 05/13/2025: Code status frequently changing. As of 05/13/2025: DNR, +trial of intubation, transfer and treat. Palliative care patient (Acute) Advanced care planning/counseling discussion (Acute) Anxiety (Chronic) Deficit in activities of daily living (ADL) (Acute) GERD (gastroesophageal reflux disease) (Chronic) Atrial fibrillation (Chronic) Steroid dependence (Chronic) Acute exacerbation of CHF (congestive heart failure) (Acute) Lung nodule (Acute) BPH w urinary obs/LUTS (Acute) Microcytic anemia (Chronic) UTI (urinary tract infection) (Acute) Presence of stent in coronary artery in patient with coronary artery disease (Chronic) Diastolic CHF (Chronic) Pneumonia (Acute) Medical History HTN (hypertension) Chronic renal failure Non-STEMI (non-ST elevated myocardial infarction) History of tobacco use Hypospadias Chronic kidney disease, stage 3 Peripheral arterial occlusive disease Constipation Depression Lower urinary tract symptoms (LUTS) Exertional dyspnea Pulmonary hypertension due to left heart disease Coronary artery disease Diastolic heart failure Lower back pain Dysuria Anemia, iron deficiency Heartburn Screening for colon cancer Nocturia Urinary frequency Prediabetes Hypoxemia Multiple pulmonary nodules Lumbar back pain with radiculopathy affecting lower extremity Former smoker Congestion of nasal sinus CKD (chronic kidney disease) CHF (congestive heart failure) Alcoholism in recovery Hypospadias in male COPD (chronic obstructive pulmonary disease) Hyperlipidemia Essential hypertension Surgical History History of phacoemulsification of cataract of both eyes with intraocular lens implantation History of tonsillectomy Family History Father Throat cancer Heart disease Myocardial infarction Brother Heart disease Status post coronary stents Social History Smoking/Tobacco Use Status: Former Tobacco Use Quit Date: 01/11/17 Smoking risk assessment performed?: Yes Alcohol Intake: former Year quit: 2016 Details: Former alcoholic up to 2 cases of gin per month Drug use: Never Substance use type: does not use Housing: assisted living facility Number of Children: 0 Pets and animals: Yes Pets and animals: dog(s) What is your relationship status?: Panel score (0-1 are the most socially isolated patients): 1 Do you feel safe at home: Yes Do you feel safe in your relationship?: Yes Visit Medication and Allergies Active Medications Generic Name Dose Route Start Last Admin Trade Name Freq PRN Reason Stop Dose Admin Acetaminophen 650 mg 06/13/25 12:22 06/16/25 16:06 Acetaminophen 325 Mg Tab PO 650 mg Q4H PRN PRN Administration Al Hydrox/Mg Hydrox/Simethicone 30 ml 06/13/25 12:22 Mylanta Suspension 30 Ml Cup PO Q2H PRN PRN Albuterol Sulfate 2 puff 06/13/25 14:06 06/16/25 03:23 Albuterol Hfa 8 Gm 60 Puff Inh IH 2 inh Q4H PRN PRN Administration Albuterol/Ipratropium 1 puff 06/13/25 16:00 06/17/25 07:50 Ipratropium/Albuterol 4 Gm 120 Puff Inh IH 1 puff QID MAIA Administration Albuterol/Ipratropium 3 ml 06/14/25 00:32 06/16/25 06:21 Albuterol/Ipratropium 3 Ml Upd Vial UPD 3 ml Q4H PRN PRN Administration Bacteriostatic Water 0 ml 06/14/25 02:50 Water,Injection,Bacteriostatic 30 Ml Vial IJ DIRECTED PRN Bacteriostatic Water 0 ml 06/16/25 08:34 Water,Injection,Bacteriostatic 30 Ml Vial IJ DIRECTED PRN Carvedilol 25 mg 06/17/25 08:30 Carvedilol 25 Mg Tab PO BID MAIA Docusate Sodium 100 mg 06/13/25 20:00 08/04/25 19:42 Docusate Sodium 100 Mg/10 Ml Cup PO 100 mg TID MAIA Administration Furosemide 40 mg 06/16/25 20:00 06/16/25 19:41 Furosemide 40 Mg/4 Ml Vial IVP 40 mg BID MAIA Administration Guaifenesin 600 mg 06/13/25 20:00 06/16/25 19:42 Guaifenesin 600 Mg Tabcr PO 600 mg BID MAIA Administration Hydralazine HCl 10 mg 06/16/25 08:44 06/16/25 18:12 Hydralazine 20 Mg/Ml Vial IVP 10 mg QID PRN PRN Administration hypertension Hydroxyzine HCl 10 mg 06/16/25 09:11 06/16/25 20:45 Hydroxyzine Hcl 10 Mg Tab PO 10 mg TID PRN PRN Administration Azithromycin 250 mg/ Sodium 250 mls @ 250 mls/hr 06/14/25 10:00 06/16/25 12:00 Chloride IVPB Infused Q24H [facility] Infusion Vancomycin HCl / Sodium 250 mls @ 250 mls/hr 06/17/25 07:27 Chloride IVPB 06/17/25 08:26 .PER PROTOCOL STA Potassium Chloride 20 meq in 100 mls @ 50 mls/hr 06/17/25 07:30 IV_INF 06/17/25 11:29 Q2H [facility] Piperacillin Sod/Tazobactam 50 mls @ 12.5 mls/hr 06/17/25 08:00 Sod 3.375 gm/ Sodium Chloride IVPB Q8H [facility] IV Miscellaneous Supplies 1 each 06/13/25 12:22 Iv Access IV DIRECTED MAIA Lidocaine HCl 30 ml 06/16/25 09:00 Lidocaine 2% Viscous 15 Ml Cup PO DIRECTED MAIA Lidocaine HCl 10 ml 06/16/25 08:45 Lidocaine 1% Multi-Dose 20 Ml Vial IJ DIRECTED MAIA Lidocaine HCl 6 ml 06/16/25 08:45 Lidocaine 2% Multi-Dose 20 Ml Vial IJ DIRECTED [facility] Lisinopril 2.5 mg 06/17/25 08:30 Lisinopril 2.5 Mg Tab PO DAILY MAIA Lorazepam 0.5 mg 06/13/25 22:16 06/16/25 19:42 Lorazepam 0.5 Mg Tab PO 0.5 mg Q4H PRN PRN Administration Methylprednisolone Sodium Succinate 60 mg 06/17/25 08:30 Methylprednisolone Succ 125 Mg Vial IVP DAILY [facility]IA Morphine Sulfate 2 mg 06/14/25 01:07 06/14/25 13:13 Morphine 2 Mg/Ml Syr IVP 2 mg Q2H PRN PRN Administration Nicotine 21 mg 06/14/25 08:30 06/16/25 08:17 Nicotine 21 Mg/24 Hr Patch TD 21 mg DAILY MAIA Administration Oxycodone HCl 5 mg 06/13/25 12:22 06/16/25 16:06 Oxycodone 5 Mg Tab PO 5 mg Q4H PRN PRN Administration Pantoprazole Sodium 40 mg 06/14/25 07:30 06/16/25 07:04 Pantoprazole 40 Mg Tabcr PO 40 mg DAILY@0730 MAIA Administration Polyethylene Glycol 17 gm 06/13/25 12:22 Polyethylene Glycol 3350 17 Gm Packet PO DAILY PRN PRN Constipation Prednisolone Sodium Phosphate 10 mg 06/14/25 08:30 Prednisolone Sod Phos. Soln. 3 Mg/Ml PO On Hold: 06/14/25 08:30 DAILY [facility] Comment: pt on solumedrol Sodium Chloride 0 ml 06/13/25 12:22 06/16/25 16:07 Normal Saline Flush 10 Ml Syr IVP 20 ml PRN PRN Administration Sodium Chloride 0 ml 06/13/25 20:00 06/16/25 19:42 Normal Saline Flush 10 Ml Syr IVP 20 ml BID MAIA Administration Sodium Chloride 0 ml 06/13/25 12:22 Normal Saline 10 Ml Vial IJ DIRECTED PRN Venlafaxine HCl 75 mg 06/14/25 08:30 06/16/25 08:17 Venlafaxine 75 Mg Capcr PO 75 mg DAILY [facility] Administration Allergies lisinopril Adverse Reaction (Unknown, Unverified 05/03/25 02:05) low BP, worsening CKD codeine phosphate (From Tylenol-Codeine) Adverse Reaction (Unverified 05/03/25 02:05) constipation Exam Narrative Exam Narrative: General: alert, no acute distress Head: normocephalic ENT: no stridor, trachea midline, poor dentition CV: normal rate, regular rhythm Respiratory: expiratory wheezing, no crackles, right sided rhonchi, no prolonged expiration GI: abd soft, non-tender, non-distended Skin: no rashes Extremities: +1 edema, no digital clubbing Psych: normal affect Results Last Vital Signs Temp 36 C L 06/17/25 03:09 Pulse 70 06/17/25 06:02 Resp 30 H 06/17/25 06:02 BP 167/61 H 06/17/25 06:02 Pulse Ox 93 06/17/25 07:50 Labs 06/17/25 05:50 06/17/25 05:50 Labs: Laboratory Results - last 24 hr 06/16/25 06/17/25 05:57 05:50 WBC 17.17 H RBC 4.22 L Hgb 8.8 L Hct 27.1 L MCV 64 L MCH 20.9 L MCHC 32.5 RDW 16.9 H Plt Count 376 MPV 9.9 Immature Gran % 0.8 Neutrophils % 88.4 Lymphocytes % 6.3 Monocytes % 4.4 Eosinophils % 0.0 Basophils % 0.1 Nucleated RBC % 0.4 H Absolute Neutrophils 15.18 H Absolute Lymphocytes 1.08 L Absolute Monocytes 0.76 Absolute Eosinophils 0.00 Absolute Basophils 0.02 VBG Lactate 1.0 Sodium 142 Potassium 3.0 L Chloride 102 Carbon Dioxide 29.8 Anion Gap 10.2 BUN 65 H Creatinine 1.7 H Est GFR (CKD-EPI 2020) 42.30 Glucose 126 H Calcium 9.0 Magnesium 2.1 Iron 48 L TIBC 163 L Transferrin % Sat 29 Total Bilirubin 0.8 AST 12 L ALT 19 Alkaline Phosphatase 66 Total Protein 7.0 Albumin 2.7 L Procalcitonin 44.60 Imaging Chest x-ray: report reviewed and image reviewed CT scan - chest: report reviewed and image reviewed
--- NOTE | 2025-06-17 08:11 | W.PULMPROG ---
General Date Of Service Date of service: 06/17/25 Time of Service: 07:30 Reason for Consult: Pneumonia Recommendations: Assessment: 1. Acute hypoxemic respiratory failure - due to pneumonia and COPD exacerbation - currently on 1 L O2 2. Severe sepsis - due to pneumonia 3. Pneumonia - infectious workup positive for MRSA nasal swab. Bld cultures negative. Lower suspicion for active TB, but cannot rule out. Fungal pneumonia also possible, but less likely. WBC increased today. 4. COPD exacerbation - underlying class 2E COPD 5. Microcytic anemia 6. Acute on chronic renal failure - Cr improved to 1.7 7. Pulmonary nodules - ~1.5 cm partially calcified nodule in the anterior RUL with a smaller satellite nodule - stable from 08/2020 to 06/2025, suggesting a benign etiology Plan: - plan for bronchoscopy with RUL BAL later this AM. Will need to be in negative pressure until active TB is ruled out. The risks (bleeding, pneumonthorax, respiratory failure, cough, pain), benefits, and alternatives were discussed with the patient. He is agreeable to proceed. - follow up on urine strep ag, legionella urine ag, and mycoplasma IgM - given rise in WBC, will change antibiotics to vancomycin, zosyn, and azithromycin. Given poor dentition, anaerobic infection is a concern. D/C cefepime - continue methylpred to 62.5 mg daily - continue bronchodilators - hold eliquis for bronchoscopy today. Can resume tomorrow evening, provided no bleeding issues arise with bronchoscopy - replace K and check Mg level Discussed with Dr. Rangel Subjective Note Note: Patient is a 74 yo with a history of COPD, CAD, tobacco abuse and CKD who was admitted for right upper lobe pneumonia. He reported feeling unwell since 01/2025. Has had intermittent evaluations since that time. Symptoms worsened recently, prompting his current admission. Reports subjective fevers at home. Has a cough but not producing sputum. Denied any hemoptysis. No chest pain. CT chest showed a severe RUL pneumonia. No pleural effusions. He has a 1.5 cm partially calficied nodule that has been stable for years. He has very poor dentition. Denied any aspiration episodes. No known TB exposures. Currently living in nursing facility / assisted living. Currently on 1 L O2. WBC increased today. Denies significant sputum production. Has some sharp right sided chest pain with inspiration. No hemoptysis. Denied dyspnea at rest. Has bene NPO Family history: mother - COPD Smoking history: smoked 1 ppd x 50 years. Active TB exposures: no known exposures ROS: 6 pt ROS negative except as in HPI Exam Narrative Exam Narrative: General: alert, no acute distress Head: normocephalic ENT: no stridor, trachea midline, poor dentition CV: normal rate, regular rhythm Respiratory: expiratory wheezing, no crackles, right sided rhonchi, no prolonged expiration GI: abd soft, non-tender, non-distended Skin: no rashes Extremities: +1 edema, no digital clubbing Psych: normal affect Objective Last Vital Signs Temp 36 C L 06/17/25 03:09 Pulse 70 06/17/25 06:02 Resp 30 H 06/17/25 06:02 BP 167/61 H 06/17/25 06:02 Pulse Ox 93 06/17/25 07:50 Laboratory Results - last 24 hr 06/16/25 06/17/25 05:57 05:50 WBC 17.17 H RBC 4.22 L Hgb 8.8 L Hct 27.1 L MCV 64 L MCH 20.9 L MCHC 32.5 RDW 16.9 H Plt Count 376 MPV 9.9 Immature Gran % 0.8 Neutrophils % 88.4 Lymphocytes % 6.3 Monocytes % 4.4 Eosinophils % 0.0 Basophils % 0.1 Nucleated RBC % 0.4 H Absolute Neutrophils 15.18 H Absolute Lymphocytes 1.08 L Absolute Monocytes 0.76 Absolute Eosinophils 0.00 Absolute Basophils 0.02 VBG Lactate 1.0 Sodium 142 Potassium 3.0 L Chloride 102 Carbon Dioxide 29.8 Anion Gap 10.2 BUN 65 H Creatinine 1.7 H Est GFR (CKD-EPI 2020) 42.30 Glucose 126 H Calcium 9.0 Magnesium 2.1 Iron 48 L TIBC 163 L Transferrin % Sat 29 Total Bilirubin 0.8 AST 12 L ALT 19 Alkaline Phosphatase 66 Total Protein 7.0 Albumin 2.7 L Procalcitonin 44.60 Reviewed Pertinent PMH: Yes Results Medications Medications: Active Medications Generic Name Dose Route Start Last Admin Trade Name Freq PRN Reason Stop Dose Admin Acetaminophen 650 mg 06/13/25 12:22 06/16/25 16:06 Acetaminophen 325 Mg Tab PO 650 mg Q4H PRN PRN Administration Al Hydrox/Mg Hydrox/Simethicone 30 ml 06/13/25 12:22 Mylanta Suspension 30 Ml Cup PO Q2H PRN PRN Albuterol Sulfate 2 puff 06/13/25 14:06 06/16/25 03:23 Albuterol Hfa 8 Gm 60 Puff Inh IH 2 inh Q4H PRN PRN Administration Albuterol/Ipratropium 1 puff 06/13/25 16:00 06/17/25 07:50 Ipratropium/Albuterol 4 Gm 120 Puff Inh IH 1 puff QID MAIA Administration Albuterol/Ipratropium 3 ml 06/14/25 00:32 06/16/25 06:21 Albuterol/Ipratropium 3 Ml Upd Vial UPD 3 ml Q4H PRN PRN Administration Bacteriostatic Water 0 ml 06/14/25 02:50 Water,Injection,Bacteriostatic 30 Ml Vial IJ DIRECTED PRN Bacteriostatic Water 0 ml 06/16/25 08:34 Water,Injection,Bacteriostatic 30 Ml Vial IJ DIRECTED PRN Carvedilol 25 mg 06/17/25 08:30 Carvedilol 25 Mg Tab PO BID MAIA Docusate Sodium 100 mg 06/13/25 20:00 06/16/25 19:42 Docusate Sodium 100 Mg/10 Ml Cup PO 100 mg TID MAIA Administration Furosemide 40 mg 06/16/25 20:00 06/16/25 19:41 Furosemide 40 Mg/4 Ml Vial IVP 40 mg BID MAIA Administration Guaifenesin 600 mg 06/13/25 20:00 06/16/25 19:42 Guaifenesin 600 Mg Tabcr PO 600 mg BID MAIA Administration Hydralazine HCl 10 mg 06/16/25 08:44 06/16/25 18:12 Hydralazine 20 Mg/Ml Vial IVP 10 mg QID PRN PRN Administration hypertension Hydroxyzine HCl 10 mg 06/16/25 09:11 06/16/25 20:45 Hydroxyzine Hcl 10 Mg Tab PO 10 mg TID PRN PRN Administration Azithromycin 250 mg/ Sodium 250 mls @ 250 mls/hr 06/14/25 10:00 06/16/25 12:00 Chloride IVPB Infused Q24H MAIA Infusion Vancomycin HCl / Sodium 250 mls @ 250 mls/hr 06/17/25 07:27 Chloride IVPB 06/17/25 08:26 .PER PROTOCOL STA Potassium Chloride 20 meq in 100 mls @ 50 mls/hr 06/17/25 07:30 IV_INF 06/17/25 11:29 Q2H [facility] Piperacillin Sod/Tazobactam 50 mls @ 12.5 mls/hr 06/17/25 08:00 Sod 3.375 gm/ Sodium Chloride IVPB Q8H [facility] IV Miscellaneous Supplies 1 each 06/13/25 12:22 Iv Access IV DIRECTED [facility] Lidocaine HCl 30 ml 06/16/25 09:00 Lidocaine 2% Viscous 15 Ml Cup PO DIRECTED [facility] Lidocaine HCl 10 ml 06/16/25 08:45 Lidocaine 1% Multi-Dose 20 Ml Vial IJ DIRECTED [facility] Lidocaine HCl 6 ml 06/16/25 08:45 Lidocaine 2% Multi-Dose 20 Ml Vial IJ DIRECTED [facility] Lisinopril 2.5 mg 06/17/25 08:30 Lisinopril 2.5 Mg Tab PO DAILY [facility] Lorazepam 0.5 mg 06/13/25 22:16 06/16/25 19:42 Lorazepam 0.5 Mg Tab PO 0.5 mg Q4H PRN PRN Administration Methylprednisolone Sodium Succinate 60 mg 06/17/25 08:30 Methylprednisolone Succ 125 Mg Vial IVP DAILY [facility] Morphine Sulfate 2 mg 06/14/25 01:07 06/14/25 13:13 Morphine 2 Mg/Ml Syr IVP 2 mg Q2H PRN PRN Administration Nicotine 21 mg 06/14/25 08:30 06/16/25 08:17 Nicotine 21 Mg/24 Hr Patch TD 21 mg DAILY [facility] Administration Oxycodone HCl 5 mg 06/13/25 12:22 06/16/25 16:06 Oxycodone 5 Mg Tab PO 5 mg Q4H PRN PRN Administration Pantoprazole Sodium 40 mg 06/14/25 07:30 06/16/25 07:04 Pantoprazole 40 Mg Tabcr PO 40 mg DAILY@0730 [facility] Administration Polyethylene Glycol 17 gm 06/13/25 12:22 Polyethylene Glycol 3350 17 Gm Packet PO DAILY PRN PRN Constipation Prednisolone Sodium Phosphate 10 mg 06/14/25 08:30 Prednisolone Sod Phos. Soln. 3 Mg/Ml PO On Hold: 06/14/25 08:30 DAILY [facility] Comment: pt on solumedrol Sodium Chloride 0 ml 06/13/25 12:22 06/16/25 16:07 Normal Saline Flush 10 Ml Syr IVP 20 ml PRN PRN Administration Sodium Chloride 0 ml 06/13/25 20:00 06/16/25 19:42 Normal Saline Flush 10 Ml Syr IVP 20 ml BID MAIA Administration Sodium Chloride 0 ml 06/13/25 12:22 Normal Saline 10 Ml Vial IJ DIRECTED PRN Venlafaxine HCl 75 mg 06/14/25 08:30 06/16/25 08:17 Venlafaxine 75 Mg Capcr PO 75 mg DAILY MAIA Administration Allergies lisinopril Adverse Reaction (Unknown, Unverified 05/03/25 02:05) low BP, worsening CKD codeine phosphate (From Tylenol-Codeine) Adverse Reaction (Unverified 05/03/25 02:05) constipation Labs 06/17/25 05:50 06/17/25 05:50 Labs: 06/13/25 10:20 Blood Blood Culture - Preliminary NO GROWTH 72 HOURS 06/13/25 10:05 Blood Blood Culture - Preliminary NO GROWTH 72 HOURS 06/14/25 00:34 Urine - Reflex from Ua Urine Culture - Final Gram positive asaf, mixed Laboratory Tests Range/Units 06/13/25 06/13/25 06/13/25 08:00 09:55 11:04 WBC (4.4-10.8) 10^3/uL 34.34 H* RBC (4.36-5.78) 10^6/uL 4.74 Hgb (13.5-17.5) g/dL 10.1 L Hct (40.0-50.0) % 33.2 L MCV (80-95) fL 70 L MCH (27.0-33.0) pg 21.3 L MCHC (32.0-36.0) % 30.4 L RDW (11.8-14.1) % 17.8 H Plt Count (130-400) 10^3/uL 443 H MPV (8.0-11.0) fL 10.0 Immature Gran % % 0.0 Neutrophils % % 86.0 Lymphocytes % % 11.0 Monocytes % % 3.0 Eosinophils % % 0.0 Basophils % % 0.0 Nucleated RBC % (0.0-0.3) % 1.0 H Absolute Neutrophils (1.2-6.7) 10^3/uL 29.53 H Absolute Lymphocytes (1.2-3.4) 10^3/uL 3.78 H Absolute Monocytes (0.1-0.8) 10^3/uL 1.03 H Absolute Eosinophils (0.0-0.7) 10^3/uL 0.00 Absolute Basophils (0.0-0.2) 10^3/uL 0.00 RBC Morphology Normal Microcytosis ABG Sample Site ABG pH ABG pCO2 ABG pO2 ABG HCO3 ABG Total CO2 ABG O2 Saturation ABG Base Excess VBG pH (7.31-7.41) 7.38 VBG pCO2 (41-51) mmHg 37 L VBG pO2 mmHg 51 VBG HCO3 (23-28) mmol/L 22 L VBG Total CO2 (24-29) mmol/L 21 L VBG O2 Saturation % 86 VBG Base Excess (-2-3) mmol/L -3 L VBG Lactate (<or=2.0) mmol/L 2.6 H* Oxygen Liter Flow FiO2 Sodium (136-145) mmol/L 139 Potassium (3.5-5.1) mmol/L 4.1 Chloride (98-107) mmol/L 101 Carbon Dioxide (21.0-32.0) mmol/L 25.8 Anion Gap (3-11) mmol/L 12.2 H BUN (7-18) mg/dL 36 H Creatinine (0.70-1.30) mg/dL 1.9 H Est GFR (CKD-EPI 2020) (mL/min/1.73m2) 37.02 Glucose (74-106) mg/dL 117 H Calcium (8.5-10.1) mg/dL 8.8 Magnesium (1.8-2.4) mg/dL 2.0 Iron (65-175) ug/dL TIBC (250-450) ug/dL Transferrin % Sat (20-55) % Total Bilirubin (0.2-1.0) mg/dL 2.2 H AST (15-37) U/L 13 L ALT (16-63) U/L 16 Alkaline Phosphatase (46-116) U/L 64 Troponin I (<or=76) ng/L 61 79 H* NT-Pro-B Natriuret Pep (<300) pg/mL 9159 H Total Protein (6.4-8.2) g/dL 7.1 Albumin (3.4-5.0) g/dL 3.1 L Procalcitonin ng/mL Urine Color (Yellow) Urine Clarity (Clear) Urine pH (5-8) Ur Specific [place] (1.005-1.025) Urine Protein (Neg-Trace) mg/dL Urine Ketones (Negative) mg/dL Urine Blood (Negative) Urine Nitrite (Negative) Urine Bilirubin (Negative) Urine Urobilinogen (Up to 0.2) mg/dL Ur Leukocyte Esterase (Negative) Urine RBC (0-2) HPF Urine WBC (0-5) HPF Ur Epithelial Cells (Negative) HPF Urine Crystals (Negative) HPF Urine Bacteria (Negative) HPF Urine Casts (Negative) LPF Urine Mucus (Negative) Ur Culture Indicated? Urine Glucose (Negative) mg/dL COVID-19 Source Nasopharynx SARS-CoV-2 (PCR) (Negative) Negative Influenza Type A (PCR) (Negative) Negative Influenza Type B (PCR) (Negative) Negative RSV (PCR) (Negative) Negative MRSA (TEM-PCR) (Negative) Range/Units 06/13/25 06/13/25 06/13/25 13:40 13:51 17:50 WBC (4.4-10.8) 10^3/uL RBC (4.36-5.78) 10^6/uL Hgb (13.5-17.5) g/dL Hct (40.0-50.0) % MCV (80-95) fL MCH (27.0-33.0) pg MCHC (32.0-36.0) % RDW (11.8-14.1) % Plt Count (130-400) 10^3/uL MPV (8.0-11.0) fL Immature Gran % % Neutrophils % % Lymphocytes % % Monocytes % % Eosinophils % % Basophils % % Nucleated RBC % (0.0-0.3) % Absolute Neutrophils (1.2-6.7) 10^3/uL Absolute Lymphocytes (1.2-3.4) 10^3/uL Absolute Monocytes (0.1-0.8) 10^3/uL Absolute Eosinophils (0.0-0.7) 10^3/uL Absolute Basophils (0.0-0.2) 10^3/uL RBC Morphology Microcytosis ABG Sample Site ABG pH ABG pCO2 ABG pO2 ABG HCO3 ABG Total CO2 ABG O2 Saturation ABG Base Excess VBG pH (7.31-7.41) VBG pCO2 (41-51) mmHg VBG pO2 mmHg VBG HCO3 (23-28) mmol/L VBG Total CO2 (24-29) mmol/L VBG O2 Saturation % VBG Base Excess (-2-3) mmol/L VBG Lactate (<or=2.0) mmol/L 4.0 H* 2.0 Oxygen Liter Flow FiO2 Sodium (136-145) mmol/L Potassium (3.5-5.1) mmol/L Chloride (98-107) mmol/L Carbon Dioxide (21.0-32.0) mmol/L Anion Gap (3-11) mmol/L BUN (7-18) mg/dL Creatinine (0.70-1.30) mg/dL Est GFR (CKD-EPI 2020) (mL/min/1.73m2) Glucose (74-106) mg/dL Calcium (8.5-10.1) mg/dL Magnesium (1.8-2.4) mg/dL Iron (65-175) ug/dL TIBC (250-450) ug/dL Transferrin % Sat (20-55) % Total Bilirubin (0.2-1.0) mg/dL AST (15-37) U/L ALT (16-63) U/L Alkaline Phosphatase (46-116) U/L Troponin I (<or=76) ng/L 89 H* Cancelled NT-Pro-B Natriuret Pep (<300) pg/mL Total Protein (6.4-8.2) g/dL Albumin (3.4-5.0) g/dL Procalcitonin ng/mL Urine Color (Yellow) Urine Clarity (Clear) Urine pH (5-8) Ur Specific [place] (1.005-1.025) Urine Protein (Neg-Trace) mg/dL Urine Ketones (Negative) mg/dL Urine Blood (Negative) Urine Nitrite (Negative) Urine Bilirubin (Negative) Urine Urobilinogen (Up to 0.2) mg/dL Ur Leukocyte Esterase (Negative) Urine RBC (0-2) HPF Urine WBC (0-5) HPF Ur Epithelial Cells (Negative) HPF Urine Crystals (Negative) HPF Urine Bacteria (Negative) HPF Urine Casts (Negative) LPF Urine Mucus (Negative) Ur Culture Indicated? Urine Glucose (Negative) mg/dL COVID-19 Source SARS-CoV-2 (PCR) (Negative) Influenza Type A (PCR) (Negative) Influenza Type B (PCR) (Negative) RSV (PCR) (Negative) MRSA (TEM-PCR) (Negative) Range/Units 06/14/25 06/14/25 06/14/25 00:34 03:33 03:48 WBC (4.4-10.8) 10^3/uL RBC (4.36-5.78) 10^6/uL Hgb (13.5-17.5) g/dL Hct (40.0-50.0) % MCV (80-95) fL MCH (27.0-33.0) pg MCHC (32.0-36.0) % RDW (11.8-14.1) % Plt Count (130-400) 10^3/uL MPV (8.0-11.0) fL Immature Gran % % Neutrophils % % Lymphocytes % % Monocytes % % Eosinophils % % Basophils % % Nucleated RBC % (0.0-0.3) % Absolute Neutrophils (1.2-6.7) 10^3/uL Absolute Lymphocytes (1.2-3.4) 10^3/uL Absolute Monocytes (0.1-0.8) 10^3/uL Absolute Eosinophils (0.0-0.7) 10^3/uL Absolute Basophils (0.0-0.2) 10^3/uL RBC Morphology Microcytosis ABG Sample Site Cancelled Right Radial ABG pH Cancelled 7.35 ABG pCO2 Cancelled 36 ABG pO2 Cancelled 60 L ABG HCO3 Cancelled 20 L ABG Total CO2 Cancelled 19 L ABG O2 Saturation Cancelled 89 L ABG Base Excess Cancelled -6 L VBG pH (7.31-7.41) VBG pCO2 (41-51) mmHg VBG pO2 mmHg VBG HCO3 (23-28) mmol/L VBG Total CO2 (24-29) mmol/L VBG O2 Saturation % VBG Base Excess (-2-3) mmol/L VBG Lactate (<or=2.0) mmol/L Oxygen Liter Flow Cancelled 15 FiO2 Cancelled Sodium (136-145) mmol/L Potassium (3.5-5.1) mmol/L Chloride (98-107) mmol/L Carbon Dioxide (21.0-32.0) mmol/L Anion Gap (3-11) mmol/L BUN (7-18) mg/dL Creatinine (0.70-1.30) mg/dL Est GFR (CKD-EPI 2020) (mL/min/1.73m2) Glucose (74-106) mg/dL Calcium (8.5-10.1) mg/dL Magnesium (1.8-2.4) mg/dL Iron (65-175) ug/dL TIBC (250-450) ug/dL Transferrin % Sat (20-55) % Total Bilirubin (0.2-1.0) mg/dL AST (15-37) U/L ALT (16-63) U/L Alkaline Phosphatase (46-116) U/L Troponin I (<or=76) ng/L NT-Pro-B Natriuret Pep (<300) pg/mL Total Protein (6.4-8.2) g/dL Albumin (3.4-5.0) g/dL Procalcitonin ng/mL Urine Color (Yellow) Yellow Urine Clarity (Clear) Clear Urine pH (5-8) 6.0 Ur Specific [place] (1.005-1.025) 1.015 Urine Protein (Neg-Trace) mg/dL >=300 H Urine Ketones (Negative) mg/dL Negative Urine Blood (Negative) Trace-intact H Urine Nitrite (Negative) Negative Urine Bilirubin (Negative) Negative Urine Urobilinogen (Up to 0.2) mg/dL 0.2 Ur Leukocyte Esterase (Negative) Small H Urine RBC (0-2) HPF 3-5 H Urine WBC (0-5) HPF >50 H Ur Epithelial Cells (Negative) HPF Few Urine Crystals (Negative) HPF Negative Urine Bacteria (Negative) HPF Few Urine Casts (Negative) LPF Negative Urine Mucus (Negative) Negative Ur Culture Indicated? Yes Urine Glucose (Negative) mg/dL Negative COVID-19 Source SARS-CoV-2 (PCR) (Negative) Influenza Type A (PCR) (Negative) Influenza Type B (PCR) (Negative) RSV (PCR) (Negative) MRSA (TEM-PCR) (Negative) Range/Units 06/14/25 06/14/25 06/14/25 05:59 16:00 23:35 WBC (4.4-10.8) 10^3/uL 29.95 H* RBC (4.36-5.78) 10^6/uL 4.36 Hgb (13.5-17.5) g/dL 9.0 L Hct (40.0-50.0) % 29.8 L MCV (80-95) fL 68 L MCH (27.0-33.0) pg 20.6 L MCHC (32.0-36.0) % 30.2 L RDW (11.8-14.1) % 17.1 H Plt Count (130-400) 10^3/uL 410 H MPV (8.0-11.0) fL 10.2 Immature Gran % % 1.9 Neutrophils % % 84.4 Lymphocytes % % 6.9 Monocytes % % 6.3 Eosinophils % % 0.2 Basophils % % 0.3 Nucleated RBC % (0.0-0.3) % 0.1 Absolute Neutrophils (1.2-6.7) 10^3/uL 25.28 H Absolute Lymphocytes (1.2-3.4) 10^3/uL 2.07 Absolute Monocytes (0.1-0.8) 10^3/uL 1.89 H Absolute Eosinophils (0.0-0.7) 10^3/uL 0.06 Absolute Basophils (0.0-0.2) 10^3/uL 0.09 RBC Morphology See Below Microcytosis 2+ ABG Sample Site ABG pH ABG pCO2 ABG pO2 ABG HCO3 ABG Total CO2 ABG O2 Saturation ABG Base Excess VBG pH (7.31-7.41) 7.34 VBG pCO2 (41-51) mmHg 38 L VBG pO2 mmHg 83 VBG HCO3 (23-28) mmol/L 21 L VBG Total CO2 (24-29) mmol/L 20 L VBG O2 Saturation % 97 VBG Base Excess (-2-3) mmol/L -5 L VBG Lactate (<or=2.0) mmol/L Oxygen Liter Flow FiO2 Sodium (136-145) mmol/L 136 Potassium (3.5-5.1) mmol/L 4.2 Chloride (98-107) mmol/L 101 Carbon Dioxide (21.0-32.0) mmol/L 22.4 Anion Gap (3-11) mmol/L 12.6 H BUN (7-18) mg/dL 44 H Creatinine (0.70-1.30) mg/dL 2.2 H Est GFR (CKD-EPI 2020) (mL/min/1.73m2) 31.05 Glucose (74-106) mg/dL 89 Calcium (8.5-10.1) mg/dL 8.8 Magnesium (1.8-2.4) mg/dL Iron (65-175) ug/dL TIBC (250-450) ug/dL Transferrin % Sat (20-55) % Total Bilirubin (0.2-1.0) mg/dL AST (15-37) U/L ALT (16-63) U/L Alkaline Phosphatase (46-116) U/L Troponin I (<or=76) ng/L NT-Pro-B Natriuret Pep (<300) pg/mL Total Protein (6.4-8.2) g/dL Albumin (3.4-5.0) g/dL Procalcitonin ng/mL Urine Color (Yellow) Urine Clarity (Clear) Urine pH (5-8) Ur Specific [place] (1.005-1.025) Urine Protein (Neg-Trace) mg/dL Urine Ketones (Negative) mg/dL Urine Blood (Negative) Urine Nitrite (Negative) Urine Bilirubin (Negative) Urine Urobilinogen (Up to 0.2) mg/dL Ur Leukocyte Esterase (Negative) Urine RBC (0-2) HPF Urine WBC (0-5) HPF Ur Epithelial Cells (Negative) HPF Urine Crystals (Negative) HPF Urine Bacteria (Negative) HPF Urine Casts (Negative) LPF Urine Mucus (Negative) Ur Culture Indicated? Urine Glucose (Negative) mg/dL COVID-19 Source SARS-CoV-2 (PCR) (Negative) Influenza Type A (PCR) (Negative) Influenza Type B (PCR) (Negative) RSV (PCR) (Negative) MRSA (TEM-PCR) (Negative) Positive A Range/Units 06/15/25 06/16/25 06/17/25 08:04 05:57 05:50 WBC (4.4-10.8) 10^3/uL 21.80 H 13.77 H 17.17 H RBC (4.36-5.78) 10^6/uL 4.31 L 4.14 L 4.22 L Hgb (13.5-17.5) g/dL 8.8 L 8.8 L 8.8 L Hct (40.0-50.0) % 28.4 L 27.4 L 27.1 L MCV (80-95) fL 66 L 66 L 64 L MCH (27.0-33.0) pg 20.4 L 21.3 L 20.9 L MCHC (32.0-36.0) % 31.0 L 32.1 32.5 RDW (11.8-14.1) % 16.7 H 16.9 H 16.9 H Plt Count (130-400) 10^3/uL 355 359 376 MPV (8.0-11.0) fL 9.9 10.2 9.9 Immature Gran % % 0.4 0.8 Neutrophils % % 94.5 88.4 Lymphocytes % % 3.2 6.3 Monocytes % % 1.9 4.4 Eosinophils % % 0.0 0.0 Basophils % % 0.0 0.1 Nucleated RBC % (0.0-0.3) % 0.7 H 0.4 H Absolute Neutrophils (1.2-6.7) 10^3/uL 13.01 H 15.18 H Absolute Lymphocytes (1.2-3.4) 10^3/uL 0.44 L 1.08 L Absolute Monocytes (0.1-0.8) 10^3/uL 0.26 0.76 Absolute Eosinophils (0.0-0.7) 10^3/uL 0.00 0.00 Absolute Basophils (0.0-0.2) 10^3/uL 0.00 0.02 RBC Morphology Microcytosis ABG Sample Site ABG pH ABG pCO2 ABG pO2 ABG HCO3 ABG Total CO2 ABG O2 Saturation ABG Base Excess VBG pH (7.31-7.41) VBG pCO2 (41-51) mmHg VBG pO2 mmHg VBG HCO3 (23-28) mmol/L VBG Total CO2 (24-29) mmol/L VBG O2 Saturation % VBG Base Excess (-2-3) mmol/L VBG Lactate (<or=2.0) mmol/L 0.8 1.0 Oxygen Liter Flow FiO2 Sodium (136-145) mmol/L 135 L 135 L 142 Potassium (3.5-5.1) mmol/L 4.3 3.6 3.0 L Chloride (98-107) mmol/L 101 101 102 Carbon Dioxide (21.0-32.0) mmol/L 24.7 27.5 29.8 Anion Gap (3-11) mmol/L 9.3 6.5 10.2 BUN (7-18) mg/dL 58 H 67 H 65 H Creatinine (0.70-1.30) mg/dL 2.2 H 2.2 H 1.7 H Est GFR (CKD-EPI 2020) (mL/min/1.73m2) 31.05 31.05 42.30 Glucose (74-106) mg/dL 161 H 164 H 126 H Calcium (8.5-10.1) mg/dL 9.1 9.0 9.0 Magnesium (1.8-2.4) mg/dL 2.1 Iron (65-175) ug/dL 48 L TIBC (250-450) ug/dL 163 L Transferrin % Sat (20-55) % 29 Total Bilirubin (0.2-1.0) mg/dL 0.9 0.8 0.8 AST (15-37) U/L 27 17 12 L ALT (16-63) U/L 15 L 18 19 Alkaline Phosphatase (46-116) U/L 77 71 66 Troponin I (<or=76) ng/L NT-Pro-B Natriuret Pep (<300) pg/mL Total Protein (6.4-8.2) g/dL 7.0 7.3 7.0 Albumin (3.4-5.0) g/dL 2.5 L 2.8 L 2.7 L Procalcitonin ng/mL 44.60 Urine Color (Yellow) Urine Clarity (Clear) Urine pH (5-8) Ur Specific [place] (1.005-1.025) Urine Protein (Neg-Trace) mg/dL Urine Ketones (Negative) mg/dL Urine Blood (Negative) Urine Nitrite (Negative) Urine Bilirubin (Negative) Urine Urobilinogen (Up to 0.2) mg/dL Ur Leukocyte Esterase (Negative) Urine RBC (0-2) HPF Urine WBC (0-5) HPF Ur Epithelial Cells (Negative) HPF Urine Crystals (Negative) HPF Urine Bacteria (Negative) HPF Urine Casts (Negative) LPF Urine Mucus (Negative) Ur Culture Indicated? Urine Glucose (Negative) mg/dL COVID-19 Source SARS-CoV-2 (PCR) (Negative) Influenza Type A (PCR) (Negative) Influenza Type B (PCR) (Negative) RSV (PCR) (Negative) MRSA (TEM-PCR) (Negative) Imaging Chest x-ray: report reviewed and image reviewed CT scan - chest: report reviewed and image reviewed
--- NOTE | 2025-06-17 08:57 | ANES.PREOP_ITS ---
General Info Date of Service Date Performed: 06/17/25 Height: 5 ft 8 in Weight: 91.8 kg Body Mass Index (BMI): 30.7 Surgical Procedure: Operation Date: 06/17/25 11:55 Proposed Procedure Side Surgeon real Swain MD Meds Allergies and Home Medications Allergies Allergy/AdvReac Type Severity Reaction Status Date / Time lisinopril AdvReac Unknown low BP, Unverified 05/03/25 02:05 worsening CKD codeine phosphate (From AdvReac constipatio Unverified 05/03/25 02:05 Tylenol-Codeine) n Home Medication ?Medication ?Instructions ?Recorded nitroglycerin 0.4 mg sublingual 0.4 mg sublingual Q5M PRN 12/04/19 tablet guaifenesin 600 mg tablet, 600 mg PO BID PRN 02/28/23 extended release 12 hr (Mucinex) nicotine 21 mg/24 hr daily 1 patch transdermal DAILY 0 02/28/23 transdermal patch apixaban 5 mg tablet (Eliquis) 5 mg PO BID #60 tabs polyethylene glycol 3350 17 gram 17 g PO DAILY PRN #30 ea 04/24/25 oral powder packet pantoprazole 40 mg tablet,delayed 40 mg PO DAILY #60 t abs 04/30/25 release (Protonix) oxycodone 5 mg tablet 5 mg PO Q4H PRN 05/14/25 acetaminophen 325 mg capsule 325 mg PO Q6H PRN 5 carvedilol 25 mg tablet 25 mg PO DAILY 06/13/25 docusate sodium 100 mg capsule 100 mg PO BID PRN 06/13 (Colace) ipratropium 0.5 mg-albuterol 3 mg 3 ml inhalation Q4H 06/13/25 (2.5 mg base)/3 mL nebulization soln lorazepam 0.5 mg tablet (Ativan) 0.5 mg PO Q6H PRN 12/07 prednisolone 5 mg tablet 10 mg PO QDAY 06/13/25 (Millipred) torsemide 20 mg tablet 20 mg PO DAILY 06/13/25 venlafaxine 75 mg capsule,extended 75 mg PO DAILY 12/07 release 24 hr Current Visit Medications: Current Medications Generic Name Dose Route Start Last Admin Trade Name Freq PRN Reason Stop Dose Admin Acetaminophen 650 mg 06/13/25 12:22 06/16/25 16:06 Acetaminophen 325 Mg Tab PO 650 mg Q4H PRN PRN Administration Al Hydrox/Mg Hydrox/Simethicone 30 ml 06/13/25 12:22 Mylanta Suspension 30 Ml Cup PO Q2H PRN PRN Albuterol Sulfate 2 puff 06/13/25 14:06 06/16/25 03:23 Albuterol Hfa 8 Gm 60 Puff Inh IH 2 inh Q4H PRN PRN Administration Albuterol/Ipratropium 1 puff 06/13/25 16:00 06/17/25 07:50 Ipratropium/Albuterol 4 Gm 120 Puff Inh IH 1 puff QID MAIA Administration Albuterol/Ipratropium 3 ml 06/14/25 00:32 06/16/25 06:21 Albuterol/Ipratropium 3 Ml Upd Vial UPD 3 ml Q4H PRN PRN Administration Bacteriostatic Water 0 ml 06/14/25 02:50 Water,Injection,Bacteriostatic 30 Ml Vial IJ DIRECTED PRN Bacteriostatic Water 0 ml 06/16/25 08:34 Water,Injection,Bacteriostatic 30 Ml Vial IJ DIRECTED PRN Carvedilol 25 mg 06/17/25 08:30 Carvedilol 25 Mg Tab PO BID MAIA Docusate Sodium 100 mg 06/13/25 20:00 06/16/25 19:42 Docusate Sodium 100 Mg/10 Ml Cup PO 100 mg TID MAIA Administration Furosemide 40 mg 06/16/25 20:00 06/16/25 19:41 Furosemide 40 Mg/4 Ml Vial IVP 40 mg BID MAIA Administration Guaifenesin 600 mg 06/13/25 20:00 06/16/25 19:42 Guaifenesin 600 Mg Tabcr PO 600 mg BID MAIA Administration Hydralazine HCl 10 mg 06/16/25 08:44 06/16/25 18:12 Hydralazine 20 Mg/Ml Vial IVP 10 mg QID PRN PRN Administration hypertension Hydroxyzine HCl 10 mg 06/16/25 09:11 06/16/25 20:45 Hydroxyzine Hcl 10 Mg Tab PO 10 mg TID PRN PRN Administration Azithromycin 250 mg/ Sodium 250 mls @ 250 mls/hr 06/14/25 10:00 06/16/25 12:00 Chloride IVPB Infused Q24H [facility] Infusion Vancomycin/PEG/NADA/Lysine/Water 1.25 gm in 250 mls @ 250 mls/hr 06/17/25 10:00 Vancocin Injection IVPB Q24H [facility] Potassium Chloride 20 meq in 100 mls @ 50 mls/hr 06/17/25 07:30 IV_INF 06/17/25 11:29 Q2H [facility] Piperacillin Sod/Tazobactam 50 mls @ 12.5 mls/hr 06/17/25 08:30 Sod 3.375 gm/ Sodium Chloride IVPB Q8H [facility] IV Miscellaneous Supplies 1 each 06/13/25 12:22 Iv Access IV DIRECTED [facility] Lidocaine HCl 30 ml 06/16/25 09:00 Lidocaine 2% Viscous 15 Ml Cup PO DIRECTED [facility] Lidocaine HCl 10 ml 06/16/25 08:45 Lidocaine 1% Multi-Dose 20 Ml Vial IJ DIRECTED [facility] Lidocaine HCl 6 ml 06/16/25 08:45 Lidocaine 2% Multi-Dose 20 Ml Vial IJ DIRECTED [facility] Lisinopril 2.5 mg 06/17/25 08:30 Lisinopril 2.5 Mg Tab PO DAILY [facility] Lorazepam 0.5 mg 06/13/25 22:16 06/16/25 19:42 Lorazepam 0.5 Mg Tab PO 0.5 mg Q4H PRN PRN Administration Methylprednisolone Sodium Succinate 60 mg 06/17/25 08:30 Methylprednisolone Succ 125 Mg Vial IVP DAILY [facility] Morphine Sulfate 2 mg 06/14/25 01:07 06/14/25 13:13 Morphine 2 Mg/Ml Syr IVP 2 mg Q2H PRN PRN Administration Nicotine 21 mg 06/14/25 08:30 06/16/25 08:17 Nicotine 21 Mg/24 Hr Patch TD 21 mg DAILY [facility] Administration Oxycodone HCl 5 mg 06/13/25 12:22 06/16/25 16:06 Oxycodone 5 Mg Tab PO 5 mg Q4H PRN PRN Administration Pantoprazole Sodium 40 mg 06/14/25 07:30 06/16/25 07:04 Pantoprazole 40 Mg Tabcr PO 40 mg DAILY@0730 [facility] Administration Polyethylene Glycol 17 gm 06/13/25 12:22 Polyethylene Glycol 3350 17 Gm Packet PO DAILY PRN PRN Constipation Prednisolone Sodium Phosphate 10 mg 06/14/25 08:30 Prednisolone Sod Phos. Soln. 3 Mg/Ml PO On Hold: 06/14/25 08:30 DAILY MAIA Comment: pt on solumedrol Sodium Chloride 0 ml 06/13/25 12:22 06/16/25 16:07 Normal Saline Flush 10 Ml Syr IVP 20 ml PRN PRN Administration Sodium Chloride 0 ml 06/13/25 20:00 06/16/25 19:42 Normal Saline Flush 10 Ml Syr IVP 20 ml BID MAIA Administration Sodium Chloride 0 ml 06/13/25 12:22 Normal Saline 10 Ml Vial IJ DIRECTED PRN Venlafaxine HCl 75 mg 06/14/25 08:30 06/16/25 08:17 Venlafaxine 75 Mg Capcr PO 75 mg DAILY MAIA Administration PFSH Active Problems Active Problems: Problem Status Onset Code Distended abdomen Acute R14.0 Lung mass Acute R91.8 Acute kidney injury superimposed on stage 3a chronic kidney disease Acute N17.9, N18.31 Severe sepsis Acute A41.9, R65.20 Sepsis Acute A41.9 CARLOS MANUEL (acute kidney injury) Acute N17.9 Acute exacerbation of chronic obstructive pulmonary disease Acute J44.1 Acute exacerbation of chronic heart failure Acute I50.9 DNR (do not resuscitate) Acute Z66 Palliative care patient Acute Z51.5 Advanced care planning/counseling discussion Acute Z71.89 Anxiety Chronic F41.9 Deficit in activities of daily living (ADL) Acute Z78.9 GERD (gastroesophageal reflux disease) Chronic K21.9 Atrial fibrillation Chronic I48.91 Steroid dependence Chronic F19.20 Acute exacerbation of CHF (congestive heart failure) Acute I50.9 Lung nodule Acute R91.1 BPH w urinary obs/LUTS Acute N40.1, N13.8 Microcytic anemia Chronic D50.9 UTI (urinary tract infection) Acute N39.0 Presence of stent in coronary artery in patient with coronary artery disease Chronic I25.10, Z95.5 Diastolic CHF Chronic I50.30 Pneumonia Acute J18.9 Medical History Medical History HTN (hypertension) Chronic renal failure Non-STEMI (non-ST elevated myocardial infarction) History of tobacco use Hypospadias Chronic kidney disease, stage 3 Peripheral arterial occlusive disease Constipation Depression Lower urinary tract symptoms (LUTS) Exertional dyspnea Pulmonary hypertension due to left heart disease Coronary artery disease Diastolic heart failure Lower back pain Dysuria Anemia, iron deficiency Heartburn Screening for colon cancer Nocturia Urinary frequency Prediabetes Hypoxemia Multiple pulmonary nodules Lumbar back pain with radiculopathy affecting lower extremity Former smoker Congestion of nasal sinus CKD (chronic kidney disease) CHF (congestive heart failure) Alcoholism in recovery Hypospadias in male COPD (chronic obstructive pulmonary disease) Hyperlipidemia Essential hypertension Surgical History Surgical History History of phacoemulsification of cataract of both eyes with intraocular lens implantation History of tonsillectomy Tobacco Smoking/Tobacco Use Status: Former Tobacco Use Alcohol Alcohol Intake: former Year quit: 2016 Details: Former alcoholic up to 2 cases of gin per month Substance Use Substance use: Never Substance use type: does not use Vital Signs and Lab Results Vital Signs Most Recent Vital Signs in EMR: Most Recent Vital Signs Temp Pulse Resp BP Pulse Ox 36 C L 70 30 H 167/61 H 93 06/17/25 03:09 06/17/25 06:02 06/17/25 06:02 06/17/25 06:02 06/17/25 07:50 Lab Results 06/17/25 05:50 06/17/25 05:50 Complete Blood Count: 2 WBC, (4.4-10.8) 17.17 10^3/uL H Today, 05:50 RBC, (4.36-5.78) 4.22 10^6/uL L Today, 05:50 Hgb, (13.5-17.5) 8.8 g/dL L Today, 05:50 Hct, (40.0-50.0) 27.1 % L Today, 05:50 Plt Count, (130-400) 376 10^3/uL Today, 05:50 VBG Lactate, (<or=2.0) 1.0 mmol/L Today, 05:50 Complete Metabolic Panel: 2 Sodium, (136-145) 142 mmol/L Today, 05:50 Potassium, (3.5-5.1) 3.0 mmol/L L Today, 05:50 Chloride, (98-107) 102 mmol/L Today, 05:50 Carbon Dioxide, (21.0-32.0) 29.8 mmol/L Today, 05:50 BUN, (7-18) 65 mg/dL H Today, 05:50 Creatinine, (0.70-1.30) 1.7 mg/dL H Today, 05:50 Est GFR (CKD-EPI 2020), (mL/min/1.73m2) 42.30 Today, 05:50 Magnesium, (1.8-2.4) 2.1 mg/dL Today, 05:50 Calcium, (8.5-10.1) 9.0 mg/dL Today, 05:50 Albumin, (3.4-5.0) 2.7 g/dL L Today, 05:50 Glucose, (74-106) 126 mg/dL H Today, 05:50 Liver Function Panel: 2 ALT, (16-63) 19 U/L Today, 05:50 AST, (15-37) 12 U/L L Today, 05:50 Cardiac Panel: 2 Troponin I, (<or=76) 89 ng/L H* 06/13/25 NT-Pro-B Natriuret Pep, (<300) 9159 pg/mL H 06/13/25 Arterial Blood Gas: 2 ABG Sample Site Right Radial 06/14/25, 03:48 ABG pH, (7.35-7.45) 7.35 06/14/25, 03:48 ABG pO2, (80-105) 60 mmHg L 06/14/25, 03:48 ABG pCO2, (35-45) 36 mmHg 06/14/25, 03:48 ABG O2 Saturation, (95-98) 89 % L 06/14/25, 03: 48 ABG HCO3, (22-26) 20 mmol/L L 06/14/25, 03:48 ABG Base Excess, (-2-3) -6 mmol/L L 06/14/25, 03:48 ABG Total CO2, (23-27) 19 mmol/L L 06/14/25, 03:48 Venous Blood Gas: 2 VBG pH, (7.31-7.41) 7.34 06/14/25, 23:35 VBG pO2 83 mmHg 06/14/25, 23:35 VBG pCO2, (41-51) 38 mmHg L 06/14/25, 23:35 VBG O2 Saturation 97 % 06/14/25, 23:35 VBG HCO3, (23-28) 21 mmol/L L 06/14/25, 23:35 VBG Base Excess, (-2-3) -5 mmol/L L 06/14/25, 23:35 VBG Total CO2, (24-29) 20 mmol/L L 06/14/25, 23:35 Infectious Disease: 2 SARS-CoV-2 (PCR), (Negative) Negative 06/13/25, 1 1:04 COVID-19 Source Nasopharynx 06/13/25, 11:04 Influenza Type A (PCR), (Negative) Negative 06/13, 11:04 Influenza Type B (PCR), (Negative) Negative 06/13, 11:04 RSV (PCR), (Negative) Negative 06/13/25, 11:04 Anesthesia Assessment and Plan Anesthesia History Personal History: No History of Anesthesia Complications Family History: No Family History of Anesthesia Complications Exercise Tolerance Exercise Tolerance: Metabolic Equivalents<4 Pertinent Negatives Pertinent Negatives: No Symptoms of GERD Cardiac & Pulmonary Exam Cardiac Exam: Normal S1/S2 Heart Sounds Pulmonary Exam: Wheezing Present (Bilat) Implantable Cardiac Device Does patient have a Pacemaker or an ICD?: No Airway Exam Known Difficult Airway: No Mallampati Class: 3 Mouth Opening: Normal (> 3cm) Thyromental Distance: Greater than 3 cm Neck Range of Motion: Full ROM Neck Circumference: Normal Teeth Condition: Generalized Poor Dentition ASA Classification ASA Score: ASA 3 Emergency Case?: No NPO Status NPO Status: NPO Clears >2 hours, Solids >8 hours Anesthesia Plan Resuscitation Status: Full Code Anesthesia Technique: General Anesthesia Airway Planned: LMA Monitors Used: Standard Monitors
--- NOTE | 2025-06-17 08:58 | CMPROGNOTE_ITS ---
Date of service: 06/17/25 Time of Service: 08:58 Care Management Progress Note Progress Note Text Progress Note Text: Elroy was lying in bed, dozing, when CM met with him. A short while before he had returned from the OR where he had a brochoscopy and was still sleepy. When CM spoke, Elroy opened one eye and said hello but went back to sleep. Elroy had several tests sent out in an effort to determine the etiology of his pneumonia. Today it was learned that his urine test for legionella came back positive. The ICU received a call from the [facility] Department requesting a call back. The nurse asked CM to contact the supervisor audit clerks. CM did speak with Sayra janis and learned that she will attempt to reach Elroy by phone tomorrow to get some information. CM notified the DON (Adri Faust) at [facility] where Paul resides, of the positive Legionella test. Discharge Potential Discharge Needs: PCP F/U Appt Anticipated Barriers to Discharge: Medical Status Patient/Family Education Needs: Review discharge instructions, discuss Ask Me Three Transportation: Private vehicle Plan: Anticipate Elroy will be transferred back to [facility] when medically cleared. He will follow up with his facility providers and plan of care and transport via [facility]. CM will continue to support discharge planning. Social Determinants of Health Screening Will the Patient Participate in the Screening?: Declined to provide Do you worry about having a steady place to live?: no In the past 12 months, have you had to go without electric, gas, oil or water in your home?: no Comments: lives in a rehab facility
[2025-06-17] MEDS: PIPERACILLIN/TAZO 3.375 GM in Normal Saline 50 ML IVPB ×2 (09:00→17:02)
[2025-06-17] MEDS: POTASSIUM CHLORIDE 20 MEQ/100 ML BAG 50 MEQ IV_INF ×2 (09:00→14:06)
[2025-06-17] MEDS: Normal Saline Flush 10 ML SYR IVP ×2 (09:01→19:37)
[2025-06-17] MEDS: Furosemide 40 MG/4 ML VIAL IVP ×2 (09:01→19:38)
[2025-06-17] MEDS: Water,Injection,Bacteriostatic 30 ML VIAL IJ (09:03)
[2025-06-17] MEDS: methylPREDNISolone SUCC 125 MG VIAL 60 MG IVP (09:06)
[2025-06-17 09:37] LABS: Legionella Ag Detection Urine Positive (Negative)
--- NOTE | 2025-06-17 09:47 | W.PM.PROGNOT ---
Date of Service Date of service: 06/17/25 Time of Service: 09:47 Assessment and Plan Assessment and plan (1) Severe sepsis: Status: Acute Assessment and plan: On admission with elevated WBC 34, RR >20, lactate with pneumonia as source. 34.34, Tachypnea RR 25, lactic 2.6, then 4.0 Started on Zithromax and cefepime MRSA swab positive 06/15, but was improving so MRSA coverage not added. Quantiferon, legionella, myco IgG, IgM, strep pneumo ordered 06/16. Lactate levels have normalized 06/17 with increased WBC and focal consolidation, vancomycin added. With poor dentition cefepime changed to pip/tazo to cover anearobes after d/w Dr. Swain. Regimen is now Vanco/zosyn/azithro (2) Pneumonia: Status: Acute Assessment and plan: RUL on admission CT. Persistent on 06/16 CXR with concern for increased consolidation, per pulm more c/w consolidation than empyema. Appreciate pulmonology help, bronchoscopy scheduled today. See above re: antibiotics and diagnostic studies pending (3) Acute exacerbation of chronic obstructive pulmonary disease: Status: Acute Assessment and plan: PT is on albuterol/duoneb/methylpred Change to prednisone when taking po. (4) Lung mass: Status: Acute Assessment and plan: Bronchoscopy scheduled 06/18, Eliquis is being held and on scd's in the interim (5) Acute exacerbation of CHF (congestive heart failure): Status: Acute Assessment and plan: Normal LVEF per 04/15/25 echo, never had low LVEF on 4 previous echocardiograms. BNP >9000 double his previous on admission, but required fairly aggressive fluid resuscitation with sepsis. Started IV furosemide 06/15 Will start iv lasix as pt might be having a chf exacerbation. Fluid balance between heart/lungs/kidneys will be challenging. Place olivares/daily weights 2.5 liters negative fluid balance 06/16- Creatinine improving 06/17, continue current furosemide. Avoiding olivares 2/2 hypospadius. SGLT2i indicated prior to discharge with CKD and CHF (6) Atrial fibrillation: Status: Chronic Assessment and plan: Hx of on carvedilol and apixaban Outpatient cardiology consult requested on 05/03/25 not completed rate controlled, but carvedilol should be BID, changed 06/17 (7) GERD (gastroesophageal reflux disease): Status: Chronic Assessment and plan: continue pantoprazole 40mg po daily. (8) Steroid dependence: Status: Chronic Assessment and plan: On methyprednisolone, BP not low so will not change to hydrocortisone. To prednisone 06/18, will need slow taper (9) History of tobacco use: Assessment and plan: NRT (10) Palliative care encounter: Assessment and plan: Seen by Dr. Chapa on 05/13/25 See notes re: recommendations. Has venlafaxine and prn lorazepam for anxiety. Once his anxiety is better controlled, Palliative Care and his SNF medical providers should attempt GOC discussion again. Consult placed (11) Acute kidney injury superimposed on stage 3a chronic kidney disease: Status: Acute Assessment and plan: Cr 1.9 from basline 1.3-1-6 IVF bolus of 250cc NS in the ED Continue to evaluate and administer IVF PRN - last echo in 04/2025 was technically difficult but showed HFpEF 06/16/25 Pt has had CKD III at least since 01/2023 which is the first obsevable data point. Consider renal usn but most likely would be low yield. Imagine components or pre renal as well as renal processes (12) Presence of stent in coronary artery in patient with coronary artery disease: Status: Chronic Assessment and plan: Hx of stent in 2019, now on apixaban only as concurrent A-fib Troponin 61, 79. 89 on 06/13, not followed since. Related to sepsis, not ACS will repeat PRN if cardiac symptoms Subjective Subjective Patient reports: no new complaints; denies nausea, vomiting or fever Interval history since last seen: Events: NPO for bronchoscopy overnight +MRSA swab, increased WBC, vancomycin started He feels okay, breathing about the same. He is thirsty, mouth dry. Exam Narrative Exam Narrative: General: alert, no acute distress ENT: no stridor, trachea midline CV: normal rate, regular rhythm Respiratory: bilat in/ex wheezing, no crackles, right sided rhonchi, no prolonged expiration GI: abd soft, mild epigastric tenderness, non-distended Extremities: trace pedal edema, no digital clubbing, warm Objective Last Vital Signs Temp 36 C L 06/17/25 03:09 Pulse 70 06/17/25 06:02 Resp 30 H 06/17/25 06:02 BP 167/61 H 06/17/25 06:02 Pulse Ox 93 06/17/25 07:50 Laboratory Results - last 24 hr 06/16/25 06/16/25 06/17/25 05:57 11:48 05:50 WBC 17.17 H RBC 4.22 L Hgb 8.8 L Hct 27.1 L MCV 64 L MCH 20.9 L MCHC 32.5 RDW 16.9 H Plt Count 376 MPV 9.9 Immature Gran % 0.8 Neutrophils % 88.4 Lymphocytes % 6.3 Monocytes % 4.4 Eosinophils % 0.0 Basophils % 0.1 Nucleated RBC % 0.4 H Absolute Neutrophils 15.18 H Absolute Lymphocytes 1.08 L Absolute Monocytes 0.76 Absolute Eosinophils 0.00 Absolute Basophils 0.02 VBG Lactate 1.0 Sodium 142 Potassium 3.0 L Chloride 102 Carbon Dioxide 29.8 Anion Gap 10.2 BUN 65 H Creatinine 1.7 H Est GFR (CKD-EPI 2020) 42.30 Glucose 126 H Calcium 9.0 Magnesium 2.1 Iron 48 L TIBC 163 L Transferrin % Sat 29 Total Bilirubin 0.8 AST 12 L ALT 19 Alkaline Phosphatase 66 Total Protein 7.0 Albumin 2.7 L Procalcitonin 44.60 Urine Legionella Ag Positive A PAWSS Have you Been Recently Intoxicated or Drunk Within the Last 30 days?: No Have you Ever Experienced Previous Episodes of Alcohol Withdrawal?: No Have you ever Experienced Withdrawal Seizures?: No Have you ever Experienced Delirium Tremens(DT)s?: No Have you ever undergone Alcohol Rehabilitation Treatment (i.e, inpt ot outpatient treatment programs)?: No Have you ever Experienced Blackouts?: No Have you ever Combined Alcohol with other Downers within the last 90 days?: No Have you ever Combined Alcohol with any other Substance of Abuse during the last 90 days?: No Positive Blood Alcohol level on Presentation? [PCS.BAL]: No Evidence of Increased Autonomic Activity (i.e. HR>120, tremor, sweating, agitation, nausea)?: No Result: 0 Time Spent with Patient Time Spent with Patient: >50 minutes Time was spent: preparing to see the patient(eg.review tests), obtaining and/or reviewing separately otained hiistory, ordering medications,tests, procedures, referring, communicating with other health director day care center, indepentently interpreting results, counseling the patient and care coordination
--- NOTE | 2025-06-17 10:29 | W.NUTRFU ---
Date of service: 06/17/25 Time of Service: 10:42 Nutrition Note NOTE: 74yo male being treated for PNA with severe sepsis, acute exac of chronic COPD, current lung mass, CHF exacerbation, CARLOS MANUEL over CKD3. PMH significant for Afib, GERD, chronic steroid use, CAD. PT currently NPO - Bronchoscopy scheduled for 06/18 Nursing reports 25-100% taken at meals since admission. Weight change of +1kg over admission with his weight being fairly consistent over the last 2 months (fluid shifts most likely with hx of CHF). Pt denies significant wt loss. Current BMI congruent with class I obesity. Labs: K+3.0 today, GFR estimated at 42, Total protein lab wnl with albumin of 2.7. BUN/Cr 65/1.7. A1C history recently in prediabetic range (note chronic steroid use). FPG 126 this morning. With noted various degrees of intake at meals this admission, will offer ONS when patient is no longer npo status to support protein energy intake. Will monitor intake/duration npo status, nutrition related labs, desire/toleration of ONS offered Time Spent in Nutritional Counseling and Treatment: 5 min
[2025-06-17] MEDS: VANCOMYCIN/WATER (PEG) 1.25 GM/250 ML BAG IVPB (10:50)
--- NOTE | 2025-06-17 11:12 | W.PM.OP ---
Operative Note Operative Note PRE-OP DIAGNOSIS: Pneumonia, acute hypoxemic respiratory failure POST-OP DIAGNOSIS: same PROCEDURE: Flexible fiberoptic bronchoscopy, diagnostic SURGEON: Wiliam Swain ANESTHESIA TYPE: General LMA/ETT (Under the direction the anesthesiology team and as per anesthesia record) Refer to Anesthesia Record PATHOLOGY: other (Bronchoalveolar lavage was obtained in the posterior segment of the right upper lobe and was sent for bacterial/afb/fungal cultures, cell count, and cytopathology. Biopsies taken: none) Procedure Description: The risks (including bleeding, respiratory failure, and pneumothorax), benefits, and alternatives of the procedure were discussed with the patient and consent was obtained.? A Time Out was held and the above information confirmed. Following the induction of genearl anesthesia, the patient was ventilation through an LMA. The bronchoscope was passed through the LMA. The vocal cords were visualized and lidocaine was topically placed onto the cords. The cords were normal. The scope was then passed into the trachea.?Additional lidocaine was used topically.? A full endobronchial examination was performed.? There were mild secretions in the RUL and bronchus intermedius. The right lower lobe was clear. There was moderate endobronchial erythema in the right lung. There was moderate bronchomalacia in the segmental bronchi in the right upper, middle and lower lobes. The left lung was normal. No endobronchial masses or lesions were seen. 125 mL of saline was injected into the posterior segment of the right upper lobe and 15 mL was aspirated. The fluid appeared cloudy / opaque. The patient tolerated the procedure well and will be monitored in the ICU. Date of Procedure: 06/17/25
[2025-06-17] MEDS: Albuterol HFA 8 GM 60 PUFF INH IH (11:35)
[2025-06-17 11:48] LABS: TB Interpretation Negative (Negative); TB1 Ag minus Nil 0.00 IU/mL; TB2 Ag minus Nil 0.00 IU/mL
[2025-06-17] MEDS: AZITHROMYCIN 250 MG in Normal Saline 250 ML IVPB (12:30)
--- NOTE | 2025-06-17 12:30 | RESPIRATORY ---
RT present for bedside bronch in ICU room 219. Pt administered 2 puffs of PRN albuterol MDI at 11:30 before bronch. Combivent 1 puff (scheduled) given post bronch at 12:30. RUL BAL done with 60mL saline and were able to get aprx 15mL sample. Pre-bronch pt's SpO2 93% on 1L nasal cannula. Post bronch pt placed on OxyMask at 15L until easily arousable. Pt currently awake, alert, and able to follow commands, resting on 6L nasal cannula with SpO2 94%. ICU Nurse currently in room with patient.
[2025-06-17 12:32] LABS: Lab Add On Test DONE
--- NOTE | 2025-06-17 12:37 | W.ANESPOSTOP ---
Postoperative Evaluation Date, Time and Location Date Performed: 06/17/25 Time Performed: 12:37 Patient Location: Intensive Care Unit Vital Signs Most Recent Imported Vital Signs: Most Recent Vital Signs Temp Pulse Resp BP Pulse Ox 36 C L 128 H 23 135/82 94 06/17/25 03:09 06/17/25 11:29 06/17/25 11:29 06/17/25 11:29 06/17/25 12:35 Most Recent Manually Entered Vital Signs: Adult Blood Pressure: 123/61 Heart Rate: 103 Respirations: 30 Oxygen Saturation (%): 94 Temperature (C): 36 C Pain Score (0-10 Scale): 0 Pain Score Most Recent Pain Score: Most Recent Pain Score Pain Level [Mid Anterior Chest 7 06/13/25 20:30 ] Pain Level 0 06/17/25 03:09 Assessment Mental Status: Arousable with meaningful communication Airway and Respiratory Function: Patent airway with normal (patient baseline) respiratory exam Cardiovascular Function: Hemodynamically Stable Hydration Status: Adequately Hydrated Nausea & Vomiting: No Nausea or Vomiting Pain: Pt. Denies Any Pain Peripheral Nerve Block: Patient did not receive a nerve block
[2025-06-17] MEDS: Docusate Sodium 100 MG/10 ML CUP PO ×2 (14:02→19:37)
[2025-06-17] MEDS: Venlafaxine 75 MG CAPCR PO (14:02)
[2025-06-17] MEDS: Pantoprazole 40 MG TABCR PO (14:02)
[2025-06-17] MEDS: guaiFENesin 600 MG TABCR PO ×2 (14:02→19:37)
--- NOTE | 2025-06-17 14:52 | PT.INTREAT ---
PT Notes Visit Reasons: Severe Sepsis, Hypoxic Resp Fail Pneumonia,CHF [facility] Treatment [facility] Date: 06/17/2025 PRECAUTIONS: Activity as tolerated. Fall. Droplet and contact precautions. SUBJECTIVE: Pt agreeable to participate with PT. Pt reports his throat is sore since the bronchoscopy. OBJECTIVE: Telemetry monitoring in place.? IV access through the L UE. Dyspneic at rest. ? PAIN: He reported pain in left anteriolateral hip with transition sit to/from stand VITALS: ?Oxygen saturation ranged from 92-95% throughout session on 1L/minute via NC; sats on RA while blowing nose (off for 5 mins 92% seated without back support) HR from 105-131 bpm throughout HR reduced to 105-112 when seated with back support; increased to 130 with standing, amb and seated unsupported at EOB. ? BED MOBILITY/TRANSFERS?:? Sit-stand: SBA with FWW?and increased time d/t pain left hip? Stand-sit: SBA with FWW? Bed-Chair (next to bed): SBA with FWW ? ?[ assist to manage tubes and wires] ? Chair-bed: SBA ?with FWW?[ assist to manage tubes and wires] GAIT? Assistive Device: FWW? Weight bearing: FWB Assist: Contact guard assist ? Distance:? 10 steps x2 ? Deviation: Decreased gait speed. Short step height and length. Minimal cues provided for AD management and self pacing. ? STAIRS: Not done due to current precuations ? THERA EX: seated PF/DF x 10 R/L seated LAQ 2 sets 5 reps R/L PLB x 2 sets of 30 sec ASSESSMENT:? Pt underwent Bronchoscopy this morning. Pt is limited to his room requiring negative pressure room Contact and droplet precautions at this time. limited by impaired Functional activity tolerance, elevated HR, pain left hip and MONTIEL. x ray of hip on admission negative for fracture. Pt continues on 1 L/min at this time. PLAN: 1-2x/day, 7 days/week x 1 week. Plan of care has been reviewed with the DISTRICT COURT JUDGE providing the service under Physical Therapy direction. Initiate Physical Therapy intervention for strengthening, bed mobility, transfers, gait, stairs, balance training, use of assistive device. TREATMENT CODE/TIME: 63249, [id number] DISCHARGE RECOMMENDATION: Return to SNF with continued PT to return to prior level of independence when medically stable
[2025-06-17] MEDS: Carvedilol 25 MG TAB PO (17:50)
[2025-06-17] MEDS: oxyCODONE 5 MG TAB PO (18:22)
[2025-06-18] VITALS (17 sets, daily range): BP systolic 97–181; BP diastolic 52–65; PULSE 66–103; RESP 14–19; TEMP 36.1–36.5; O2SAT 85–96
[2025-06-18] MEDS: PIPERACILLIN/TAZO 3.375 GM in Normal Saline 50 ML IVPB ×3 (00:36→16:08)
[2025-06-18] MEDS: oxyCODONE 5 MG TAB PO ×4 (01:05→20:50)
[2025-06-18] MEDS: Acetaminophen 325 MG TAB 650 MG PO (05:02)
[2025-06-18 06:15] LABS: Abs Immature Grans 0.13 10^3/uL (0.0-0.06); HCT 27.0 % (40.0-50.0); HGB 8.8 g/dL (13.5-17.5); Immature Grans % 0.9 %; MCH 21.1 pg (27.0-33.0); MCHC 32.6 % (32.0-36.0); MCV 65 fL (80-95); MPV 10.0 fL (8.0-11.0); Platelet Count 380 10^3/uL (130-400); RBC 4.18 10^6/uL (4.36-5.78); RDW 16.9 % (11.8-14.1); RDW-SD 37.6 fL; WBC 14.79 10^3/uL (4.4-10.8)
[2025-06-18 06:36] LABS: ALT 17 U/L (16-63); AST 10 U/L (15-37); Albumin 2.6 g/dL (3.4-5.0); Alkaline Phosphatase 62 U/L (46-116); Anion Gap 10.4 mmol/L (3-11); BUN 54 mg/dL (7-18); Bilirubin, Total 0.9 mg/dL (0.2-1.0); CO2 27.6 mmol/L (21.0-32.0); Calcium 8.7 mg/dL (8.5-10.1); Chloride 102 mmol/L (98-107); Estimated GFR 42.30 (mL/min/1.73m2); Glucose 121 mg/dL (74-106); Potassium 3.2 mmol/L (3.5-5.1); Sodium 140 mmol/L (136-145); Total Protein 6.6 g/dL (6.4-8.2)
[2025-06-18 06:38] LABS: Vancomycin, Random 9.5 ug/mL
--- NOTE | 2025-06-18 07:25 | W.PULMPROG ---
General Date Of Service Date of service: 06/18/25 Time of Service: 07:10 Reason for Consult: Pneumonia Recommendations: Assessment: 1. Acute hypoxemic respiratory failure - due to pneumonia and COPD exacerbation - resolved, now on room air 2. Severe sepsis - due to pneumonia 3. Legionella pneumonia - urine legionella ag positive. Infectious workup also positive for MRSA nasal swab. Bld cultures negative. BAL bacterial/fungal/afb cultures pending 4. COPD exacerbation - underlying class 2E COPD 5. Microcytic anemia 6. Acute on chronic renal failure - Cr improved to 1.7 7. Pulmonary nodules - ~1.5 cm partially calcified nodule in the anterior RUL with a smaller satellite nodule - stable from 08/2020 to 06/2025, suggesting a benign etiology Plan: - followup on BAL cultures and smears. If AFB smears are negative, can d/c airborne isolation. Until then, should remain in - given CT appearance and rise in WBC yesterday, continue vancomycin, zosyn, and azithromycin. Once BAL bacterial cultures are back, will be able to streamline antibiotics. Has very poor dentition, so at risk for anaerobic pneumonia - continue methylpred to 62.5 mg daily - continue bronchodilators - OK to resume eliquis - CXR this AM Subjective Note Note: Patient is a 74 yo with a history of COPD, CAD, tobacco abuse and CKD who was admitted for right upper lobe pneumonia. He reported feeling unwell since 01/2025. Has had intermittent evaluations since that time. Symptoms worsened recently, prompting his current admission. Reports subjective fevers at home. Has a cough but not producing sputum. Denied any hemoptysis. No chest pain. CT chest showed a severe RUL pneumonia. No pleural effusions. He has a 1.5 cm partially calficied nodule that has been stable for years. He has very poor dentition. Denied any aspiration episodes. No known TB exposures. Currently living in nursing facility / assisted living. Bronchoscopy completed 06/17 with BAL of the RUL. Analysis and cultures pending. Oxygen requirements improved. Currently on room air. Has a cough but not producing sputum. Sharp right sided chest pains with inspiration. No hemoptysis. Denies dyspnea at rest. Family history: mother - COPD Smoking history: smoked 1 ppd x 50 years. Active TB exposures: no known exposures ROS: 6 pt ROS negative except as in HPI Objective Last Vital Signs Temp 36.5 C 06/17/25 17:33 Pulse 72 06/18/25 06:00 Resp 19 06/18/25 06:00 BP 134/67 06/17/25 21:01 Pulse Ox 90 L 06/18/25 06:00 Laboratory Results - last 24 hr 06/13/25 06/16/25 06/17/25 10:20 11:48 05:50 WBC RBC Hgb Hct MCV MCH MCHC RDW Plt Count MPV Immature Gran % Neutrophils % Lymphocytes % Monocytes % Eosinophils % Basophils % Nucleated RBC % Absolute Neutrophils Absolute Lymphocytes Absolute Monocytes Absolute Eosinophils Absolute Basophils VBG Lactate Sodium Potassium Chloride Carbon Dioxide Anion Gap BUN Creatinine Est GFR (CKD-EPI 2020) Glucose Calcium Magnesium 2.1 Total Bilirubin AST ALT Alkaline Phosphatase Total Protein Albumin Random Vancomycin Urine Legionella Ag Positive A TB Test Ag - Nil 1 0.00 TB Test Ag - Nil 2 0.00 TB Test (QFT) Interp Negative Add-On Test Request 06/17/25 06/18/25 12:32 06:00 WBC 14.79 H RBC 4.18 L Hgb 8.8 L Hct 27.0 L MCV 65 L MCH 21.1 L MCHC 32.6 RDW 16.9 H Plt Count 380 MPV 10.0 Immature Gran % 0.9 Neutrophils % 79.5 Lymphocytes % 12.2 Monocytes % 6.5 Eosinophils % 0.8 Basophils % 0.1 Nucleated RBC % 0.2 Absolute Neutrophils 11.76 H Absolute Lymphocytes 1.80 Absolute Monocytes 0.96 H Absolute Eosinophils 0.12 Absolute Basophils 0.01 VBG Lactate 1.0 Sodium 140 Potassium 3.2 L Chloride 102 Carbon Dioxide 27.6 Anion Gap 10.4 BUN 54 H Creatinine 1.7 H Est GFR (CKD-EPI 2020) 42.30 Glucose 121 H Calcium 8.7 Magnesium Total Bilirubin 0.9 AST 10 L ALT 17 Alkaline Phosphatase 62 Total Protein 6.6 Albumin 2.6 L Random Vancomycin 9.5 Urine Legionella Ag TB Test Ag - Nil 1 TB Test Ag - Nil 2 TB Test (QFT) Interp Add-On Test Request DONE Results Medications Medications: Active Medications Generic Name Dose Route Start Last Admin Trade Name Freq PRN Reason Stop Dose Admin Acetaminophen 650 mg 06/13/25 12:22 06/18/25 05:02 Acetaminophen 325 Mg Tab PO 650 mg Q4H PRN PRN Administration Al Hydrox/Mg Hydrox/Simethicone 30 ml 06/13/25 12:22 Mylanta Suspension 30 Ml Cup PO Q2H PRN PRN Albuterol Sulfate 2 puff 06/13/25 14:06 06/17/25 11:35 Albuterol Hfa 8 Gm 60 Puff Inh IH 2 inh Q4H PRN PRN Administration Albuterol/Ipratropium 1 puff 06/13/25 16:00 06/17/25 20:22 Ipratropium/Albuterol 4 Gm 120 Puff Inh IH 1 puff QID MAIA Administration Albuterol/Ipratropium 3 ml 06/14/25 00:32 06/16/25 06:21 Albuterol/Ipratropium 3 Ml Upd Vial UPD 3 ml Q4H PRN PRN Administration Bacteriostatic Water 0 ml 06/14/25 02:50 06/17/25 09:03 Water,Injection,Bacteriostatic 30 Ml Vial IJ 30 ml DIRECTED PRN Administration Bacteriostatic Water 0 ml 06/16/25 08:34 Water,Injection,Bacteriostatic 30 Ml Vial IJ DIRECTED PRN Carvedilol 25 mg 06/17/25 08:30 06/17/25 17:50 Carvedilol 25 Mg Tab PO 25 mg BID MAIA Administration Docusate Sodium 100 mg 06/13/25 20:00 06/17/25 19:37 Docusate Sodium 100 Mg/10 Ml Cup PO 100 mg TID MAIA Administration Furosemide 40 mg 06/16/25 20:00 06/17/25 19:38 Furosemide 40 Mg/4 Ml Vial IVP 40 mg BID MAIA Administration Guaifenesin 600 mg 06/13/25 20:00 06/17/25 19:37 Guaifenesin 600 Mg Tabcr PO 600 mg BID MAIA Administration Hydralazine HCl 10 mg 06/16/25 08:44 06/16/25 18:12 Hydralazine 20 Mg/Ml Vial IVP 10 mg QID PRN PRN Administration hypertension Hydroxyzine HCl 10 mg 06/16/25 09:11 06/16/25 20:45 Hydroxyzine Hcl 10 Mg Tab PO 10 mg TID PRN PRN Administration Azithromycin 250 mg/ Sodium 250 mls @ 250 mls/hr 06/14/25 10:00 06/17/25 15:06 Chloride IVPB Infused Q24H MAIA Infusion Vancomycin/PEG/NADA/Lysine/Water 1.25 gm in 250 mls @ 250 mls/hr 06/17/25 10:00 06/17/25 15:07 Vancocin Injection IVPB Infused Q24H [facility] Infusion Piperacillin Sod/Tazobactam 50 mls @ 12.5 mls/hr 06/17/25 08:30 06/18/25 00:36 Sod 3.375 gm/ Sodium Chloride IVPB 12.5 mls/hr Q8H [facility] Administration IV Miscellaneous Supplies 1 each 06/13/25 12:22 Iv Access IV DIRECTED [facility] Lidocaine HCl 30 ml 06/16/25 09:00 Lidocaine 2% Viscous 15 Ml Cup PO DIRECTED [facility] Lidocaine HCl 10 ml 06/16/25 08:45 Lidocaine 1% Multi-Dose 20 Ml Vial IJ DIRECTED [facility] Lidocaine HCl 6 ml 06/16/25 08:45 Lidocaine 2% Multi-Dose 20 Ml Vial IJ DIRECTED [facility] Lisinopril 2.5 mg 06/17/25 08:30 06/17/25 14:06 Lisinopril 2.5 Mg Tab PO Not Given DAILY [facility] Lorazepam 0.5 mg 06/13/25 22:16 06/16/25 19:42 Lorazepam 0.5 Mg Tab PO 0.5 mg Q4H PRN PRN Administration Methylprednisolone Sodium Succinate 60 mg 06/17/25 08:30 06/17/25 09:06 Methylprednisolone Succ 125 Mg Vial IVP 60 mg DAILY [facility] Administration Morphine Sulfate 2 mg 06/14/25 01:07 06/14/25 13:13 Morphine 2 Mg/Ml Syr IVP 2 mg Q2H PRN PRN Administration Nicotine 21 mg 06/14/25 08:30 06/17/25 14:06 Nicotine 21 Mg/24 Hr Patch TD Not Given DAILY [facility] Oxycodone HCl 5 mg 06/13/25 12:22 06/18/25 01:05 Oxycodone 5 Mg Tab PO 5 mg Q4H PRN PRN Administration Pantoprazole Sodium 40 mg 06/14/25 07:30 06/17/25 14:02 Pantoprazole 40 Mg Tabcr PO 40 mg DAILY@0730 [facility] Administration Polyethylene Glycol 17 gm 06/13/25 12:22 Polyethylene Glycol 3350 17 Gm Packet PO DAILY PRN PRN Constipation Prednisolone Sodium Phosphate 10 mg 06/14/25 08:30 Prednisolone Sod Phos. Soln. 3 Mg/Ml PO On Hold: 06/14/25 08:30 DAILY MAIA Comment: pt on solumedrol Sodium Chloride 0 ml 06/13/25 12:22 06/16/25 16:07 Normal Saline Flush 10 Ml Syr IVP 20 ml PRN PRN Administration Sodium Chloride 0 ml 06/13/25 20:00 06/17/25 19:37 Normal Saline Flush 10 Ml Syr IVP 20 ml BID MAIA Administration Sodium Chloride 0 ml 06/13/25 12:22 Normal Saline 10 Ml Vial IJ DIRECTED PRN Venlafaxine HCl 75 mg 06/14/25 08:30 06/17/25 14:02 Venlafaxine 75 Mg Capcr PO 75 mg DAILY MAIA Administration Allergies lisinopril Adverse Reaction (Unknown, Unverified 05/03/25 02:05) low BP, worsening CKD codeine phosphate (From Tylenol-Codeine) Adverse Reaction (Unverified 05/03/25 02:05) constipation Labs 06/18/25 06:00 06/18/25 06:00 Labs: 06/13/25 10:05 Blood Blood Culture - Preliminary NO GROWTH 96 HOURS 06/13/25 10:20 Blood Blood Culture - Preliminary NO GROWTH 96 HOURS 06/14/25 00:34 Urine - Reflex from Ua Urine Culture - Final Gram positive asaf, mixed Laboratory Tests Range/Units 06/13/25 06/13/25 06/13/25 08:00 09:55 10:20 WBC (4.4-10.8) 10^3/uL 34.34 H* RBC (4.36-5.78) 10^6/uL 4.74 Hgb (13.5-17.5) g/dL 10.1 L Hct (40.0-50.0) % 33.2 L MCV (80-95) fL 70 L MCH (27.0-33.0) pg 21.3 L MCHC (32.0-36.0) % 30.4 L RDW (11.8-14.1) % 17.8 H Plt Count (130-400) 10^3/uL 443 H MPV (8.0-11.0) fL 10.0 Immature Gran % % 0.0 Neutrophils % % 86.0 Lymphocytes % % 11.0 Monocytes % % 3.0 Eosinophils % % 0.0 Basophils % % 0.0 Nucleated RBC % (0.0-0.3) % 1.0 H Absolute Neutrophils (1.2-6.7) 10^3/uL 29.53 H Absolute Lymphocytes (1.2-3.4) 10^3/uL 3.78 H Absolute Monocytes (0.1-0.8) 10^3/uL 1.03 H Absolute Eosinophils (0.0-0.7) 10^3/uL 0.00 Absolute Basophils (0.0-0.2) 10^3/uL 0.00 RBC Morphology Normal Microcytosis ABG Sample Site ABG pH ABG pCO2 ABG pO2 ABG HCO3 ABG Total CO2 ABG O2 Saturation ABG Base Excess VBG pH (7.31-7.41) 7.38 VBG pCO2 (41-51) mmHg 37 L VBG pO2 mmHg 51 VBG HCO3 (23-28) mmol/L 22 L VBG Total CO2 (24-29) mmol/L 21 L VBG O2 Saturation % 86 VBG Base Excess (-2-3) mmol/L -3 L VBG Lactate (<or=2.0) mmol/L 2.6 H* Oxygen Liter Flow FiO2 Sodium (136-145) mmol/L 139 Potassium (3.5-5.1) mmol/L 4.1 Chloride (98-107) mmol/L 101 Carbon Dioxide (21.0-32.0) mmol/L 25.8 Anion Gap (3-11) mmol/L 12.2 H BUN (7-18) mg/dL 36 H Creatinine (0.70-1.30) mg/dL 1.9 H Est GFR (CKD-EPI 2020) (mL/min/1.73m2) 37.02 Glucose (74-106) mg/dL 117 H Calcium (8.5-10.1) mg/dL 8.8 Magnesium (1.8-2.4) mg/dL 2.0 Iron (65-175) ug/dL TIBC (250-450) ug/dL Transferrin % Sat (20-55) % Total Bilirubin (0.2-1.0) mg/dL 2.2 H AST (15-37) U/L 13 L ALT (16-63) U/L 16 Alkaline Phosphatase (46-116) U/L 64 Troponin I (<or=76) ng/L 61 79 H* NT-Pro-B Natriuret Pep (<300) pg/mL 9159 H Total Protein (6.4-8.2) g/dL 7.1 Albumin (3.4-5.0) g/dL 3.1 L Procalcitonin ng/mL Urine Color (Yellow) Urine Clarity (Clear) Urine pH (5-8) Ur Specific [place] (1.005-1.025) Urine Protein (Neg-Trace) mg/dL Urine Ketones (Negative) mg/dL Urine Blood (Negative) Urine Nitrite (Negative) Urine Bilirubin (Negative) Urine Urobilinogen (Up to 0.2) mg/dL Ur Leukocyte Esterase (Negative) Urine RBC (0-2) HPF Urine WBC (0-5) HPF Ur Epithelial Cells (Negative) HPF Urine Crystals (Negative) HPF Urine Bacteria (Negative) HPF Urine Casts (Negative) LPF Urine Mucus (Negative) Ur Culture Indicated? Urine Glucose (Negative) mg/dL Random Vancomycin ug/mL COVID-19 Source SARS-CoV-2 (PCR) (Negative) Influenza Type A (PCR) (Negative) Influenza Type B (PCR) (Negative) Urine Legionella Ag (Negative) RSV (PCR) (Negative) MRSA (TEM-PCR) (Negative) TB Test Ag - Nil 1 IU/mL 0.00 TB Test Ag - Nil 2 IU/mL 0.00 TB Test (QFT) Interp (Negative) Negative Add-On Test Request Range/Units 06/13/25 06/13/25 06/13/25 11:04 13:40 13:51 WBC (4.4-10.8) 10^3/uL RBC (4.36-5.78) 10^6/uL Hgb (13.5-17.5) g/dL Hct (40.0-50.0) % MCV (80-95) fL MCH (27.0-33.0) pg MCHC (32.0-36.0) % RDW (11.8-14.1) % Plt Count (130-400) 10^3/uL MPV (8.0-11.0) fL Immature Gran % % Neutrophils % % Lymphocytes % % Monocytes % % Eosinophils % % Basophils % % Nucleated RBC % (0.0-0.3) % Absolute Neutrophils (1.2-6.7) 10^3/uL Absolute Lymphocytes (1.2-3.4) 10^3/uL Absolute Monocytes (0.1-0.8) 10^3/uL Absolute Eosinophils (0.0-0.7) 10^3/uL Absolute Basophils (0.0-0.2) 10^3/uL RBC Morphology Microcytosis ABG Sample Site ABG pH ABG pCO2 ABG pO2 ABG HCO3 ABG Total CO2 ABG O2 Saturation ABG Base Excess VBG pH (7.31-7.41) VBG pCO2 (41-51) mmHg VBG pO2 mmHg VBG HCO3 (23-28) mmol/L VBG Total CO2 (24-29) mmol/L VBG O2 Saturation % VBG Base Excess (-2-3) mmol/L VBG Lactate (<or=2.0) mmol/L 4.0 H* Oxygen Liter Flow FiO2 Sodium (136-145) mmol/L Potassium (3.5-5.1) mmol/L Chloride (98-107) mmol/L Carbon Dioxide (21.0-32.0) mmol/L Anion Gap (3-11) mmol/L BUN (7-18) mg/dL Creatinine (0.70-1.30) mg/dL Est GFR (CKD-EPI 2020) (mL/min/1.73m2) Glucose (74-106) mg/dL Calcium (8.5-10.1) mg/dL Magnesium (1.8-2.4) mg/dL Iron (65-175) ug/dL TIBC (250-450) ug/dL Transferrin % Sat (20-55) % Total Bilirubin (0.2-1.0) mg/dL AST (15-37) U/L ALT (16-63) U/L Alkaline Phosphatase (46-116) U/L Troponin I (<or=76) ng/L 89 H* Cancelled NT-Pro-B Natriuret Pep (<300) pg/mL Total Protein (6.4-8.2) g/dL Albumin (3.4-5.0) g/dL Procalcitonin ng/mL Urine Color (Yellow) Urine Clarity (Clear) Urine pH (5-8) Ur Specific [place] (1.005-1.025) Urine Protein (Neg-Trace) mg/dL Urine Ketones (Negative) mg/dL Urine Blood (Negative) Urine Nitrite (Negative) Urine Bilirubin (Negative) Urine Urobilinogen (Up to 0.2) mg/dL Ur Leukocyte Esterase (Negative) Urine RBC (0-2) HPF Urine WBC (0-5) HPF Ur Epithelial Cells (Negative) HPF Urine Crystals (Negative) HPF Urine Bacteria (Negative) HPF Urine Casts (Negative) LPF Urine Mucus (Negative) Ur Culture Indicated? Urine Glucose (Negative) mg/dL Random Vancomycin ug/mL COVID-19 Source Nasopharynx SARS-CoV-2 (PCR) (Negative) Negative Influenza Type A (PCR) (Negative) Negative Influenza Type B (PCR) (Negative) Negative Urine Legionella Ag (Negative) RSV (PCR) (Negative) Negative MRSA (TEM-PCR) (Negative) TB Test Ag - Nil 1 IU/mL TB Test Ag - Nil 2 IU/mL TB Test (QFT) Interp (Negative) Add-On Test Request Range/Units 06/13/25 06/14/25 06/14/25 17:50 00:34 03:33 WBC (4.4-10.8) 10^3/uL RBC (4.36-5.78) 10^6/uL Hgb (13.5-17.5) g/dL Hct (40.0-50.0) % MCV (80-95) fL MCH (27.0-33.0) pg MCHC (32.0-36.0) % RDW (11.8-14.1) % Plt Count (130-400) 10^3/uL MPV (8.0-11.0) fL Immature Gran % % Neutrophils % % Lymphocytes % % Monocytes % % Eosinophils % % Basophils % % Nucleated RBC % (0.0-0.3) % Absolute Neutrophils (1.2-6.7) 10^3/uL Absolute Lymphocytes (1.2-3.4) 10^3/uL Absolute Monocytes (0.1-0.8) 10^3/uL Absolute Eosinophils (0.0-0.7) 10^3/uL Absolute Basophils (0.0-0.2) 10^3/uL RBC Morphology Microcytosis ABG Sample Site Cancelled ABG pH Cancelled ABG pCO2 Cancelled ABG pO2 Cancelled ABG HCO3 Cancelled ABG Total CO2 Cancelled ABG O2 Saturation Cancelled ABG Base Excess Cancelled VBG pH (7.31-7.41) VBG pCO2 (41-51) mmHg VBG pO2 mmHg VBG HCO3 (23-28) mmol/L VBG Total CO2 (24-29) mmol/L VBG O2 Saturation % VBG Base Excess (-2-3) mmol/L VBG Lactate (<or=2.0) mmol/L 2.0 Oxygen Liter Flow Cancelled FiO2 Cancelled Sodium (136-145) mmol/L Potassium (3.5-5.1) mmol/L Chloride (98-107) mmol/L Carbon Dioxide (21.0-32.0) mmol/L Anion Gap (3-11) mmol/L BUN (7-18) mg/dL Creatinine (0.70-1.30) mg/dL Est GFR (CKD-EPI 2020) (mL/min/1.73m2) Glucose (74-106) mg/dL Calcium (8.5-10.1) mg/dL Magnesium (1.8-2.4) mg/dL Iron (65-175) ug/dL TIBC (250-450) ug/dL Transferrin % Sat (20-55) % Total Bilirubin (0.2-1.0) mg/dL AST (15-37) U/L ALT (16-63) U/L Alkaline Phosphatase (46-116) U/L Troponin I (<or=76) ng/L NT-Pro-B Natriuret Pep (<300) pg/mL Total Protein (6.4-8.2) g/dL Albumin (3.4-5.0) g/dL Procalcitonin ng/mL Urine Color (Yellow) Yellow Urine Clarity (Clear) Clear Urine pH (5-8) 6.0 Ur Specific [place] (1.005-1.025) 1.015 Urine Protein (Neg-Trace) mg/dL >=300 H Urine Ketones (Negative) mg/dL Negative Urine Blood (Negative) Trace-intact H Urine Nitrite (Negative) Negative Urine Bilirubin (Negative) Negative Urine Urobilinogen (Up to 0.2) mg/dL 0.2 Ur Leukocyte Esterase (Negative) Small H Urine RBC (0-2) HPF 3-5 H Urine WBC (0-5) HPF >50 H Ur Epithelial Cells (Negative) HPF Few Urine Crystals (Negative) HPF Negative Urine Bacteria (Negative) HPF Few Urine Casts (Negative) LPF Negative Urine Mucus (Negative) Negative Ur Culture Indicated? Yes Urine Glucose (Negative) mg/dL Negative Random Vancomycin ug/mL COVID-19 Source SARS-CoV-2 (PCR) (Negative) Influenza Type A (PCR) (Negative) Influenza Type B (PCR) (Negative) Urine Legionella Ag (Negative) RSV (PCR) (Negative) MRSA (TEM-PCR) (Negative) TB Test Ag - Nil 1 IU/mL TB Test Ag - Nil 2 IU/mL TB Test (QFT) Interp (Negative) Add-On Test Request Range/Units 06/14/25 06/14/25 06/14/25 03:48 05:59 16:00 WBC (4.4-10.8) 10^3/uL 29.95 H* RBC (4.36-5.78) 10^6/uL 4.36 Hgb (13.5-17.5) g/dL 9.0 L Hct (40.0-50.0) % 29.8 L MCV (80-95) fL 68 L MCH (27.0-33.0) pg 20.6 L MCHC (32.0-36.0) % 30.2 L RDW (11.8-14.1) % 17.1 H Plt Count (130-400) 10^3/uL 410 H MPV (8.0-11.0) fL 10.2 Immature Gran % % 1.9 Neutrophils % % 84.4 Lymphocytes % % 6.9 Monocytes % % 6.3 Eosinophils % % 0.2 Basophils % % 0.3 Nucleated RBC % (0.0-0.3) % 0.1 Absolute Neutrophils (1.2-6.7) 10^3/uL 25.28 H Absolute Lymphocytes (1.2-3.4) 10^3/uL 2.07 Absolute Monocytes (0.1-0.8) 10^3/uL 1.89 H Absolute Eosinophils (0.0-0.7) 10^3/uL 0.06 Absolute Basophils (0.0-0.2) 10^3/uL 0.09 RBC Morphology See Below Microcytosis 2+ ABG Sample Site Right Radial ABG pH 7.35 ABG pCO2 36 ABG pO2 60 L ABG HCO3 20 L ABG Total CO2 19 L ABG O2 Saturation 89 L ABG Base Excess -6 L VBG pH (7.31-7.41) VBG pCO2 (41-51) mmHg VBG pO2 mmHg VBG HCO3 (23-28) mmol/L VBG Total CO2 (24-29) mmol/L VBG O2 Saturation % VBG Base Excess (-2-3) mmol/L VBG Lactate (<or=2.0) mmol/L Oxygen Liter Flow 15 FiO2 Sodium (136-145) mmol/L 136 Potassium (3.5-5.1) mmol/L 4.2 Chloride (98-107) mmol/L 101 Carbon Dioxide (21.0-32.0) mmol/L 22.4 Anion Gap (3-11) mmol/L 12.6 H BUN (7-18) mg/dL 44 H Creatinine (0.70-1.30) mg/dL 2.2 H Est GFR (CKD-EPI 2020) (mL/min/1.73m2) 31.05 Glucose (74-106) mg/dL 89 Calcium (8.5-10.1) mg/dL 8.8 Magnesium (1.8-2.4) mg/dL Iron (65-175) ug/dL TIBC (250-450) ug/dL Transferrin % Sat (20-55) % Total Bilirubin (0.2-1.0) mg/dL AST (15-37) U/L ALT (16-63) U/L Alkaline Phosphatase (46-116) U/L Troponin I (<or=76) ng/L NT-Pro-B Natriuret Pep (<300) pg/mL Total Protein (6.4-8.2) g/dL Albumin (3.4-5.0) g/dL Procalcitonin ng/mL Urine Color (Yellow) Urine Clarity (Clear) Urine pH (5-8) Ur Specific [place] (1.005-1.025) Urine Protein (Neg-Trace) mg/dL Urine Ketones (Negative) mg/dL Urine Blood (Negative) Urine Nitrite (Negative) Urine Bilirubin (Negative) Urine Urobilinogen (Up to 0.2) mg/dL Ur Leukocyte Esterase (Negative) Urine RBC (0-2) HPF Urine WBC (0-5) HPF Ur Epithelial Cells (Negative) HPF Urine Crystals (Negative) HPF Urine Bacteria (Negative) HPF Urine Casts (Negative) LPF Urine Mucus (Negative) Ur Culture Indicated? Urine Glucose (Negative) mg/dL Random Vancomycin ug/mL COVID-19 Source SARS-CoV-2 (PCR) (Negative) Influenza Type A (PCR) (Negative) Influenza Type B (PCR) (Negative) Urine Legionella Ag (Negative) RSV (PCR) (Negative) MRSA (TEM-PCR) (Negative) Positive A TB Test Ag - Nil 1 IU/mL TB Test Ag - Nil 2 IU/mL TB Test (QFT) Interp (Negative) Add-On Test Request Range/Units 06/14/25 06/15/25 06/16/25 23:35 08:04 05:57 WBC (4.4-10.8) 10^3/uL 21.80 H 13.77 H RBC (4.36-5.78) 10^6/uL 4.31 L 4.14 L Hgb (13.5-17.5) g/dL 8.8 L 8.8 L Hct (40.0-50.0) % 28.4 L 27.4 L MCV (80-95) fL 66 L 66 L MCH (27.0-33.0) pg 20.4 L 21.3 L MCHC (32.0-36.0) % 31.0 L 32.1 RDW (11.8-14.1) % 16.7 H 16.9 H Plt Count (130-400) 10^3/uL 355 359 MPV (8.0-11.0) fL 9.9 10.2 Immature Gran % % 0.4 Neutrophils % % 94.5 Lymphocytes % % 3.2 Monocytes % % 1.9 Eosinophils % % 0.0 Basophils % % 0.0 Nucleated RBC % (0.0-0.3) % 0.7 H Absolute Neutrophils (1.2-6.7) 10^3/uL 13.01 H Absolute Lymphocytes (1.2-3.4) 10^3/uL 0.44 L Absolute Monocytes (0.1-0.8) 10^3/uL 0.26 Absolute Eosinophils (0.0-0.7) 10^3/uL 0.00 Absolute Basophils (0.0-0.2) 10^3/uL 0.00 RBC Morphology Microcytosis ABG Sample Site ABG pH ABG pCO2 ABG pO2 ABG HCO3 ABG Total CO2 ABG O2 Saturation ABG Base Excess VBG pH (7.31-7.41) 7.34 VBG pCO2 (41-51) mmHg 38 L VBG pO2 mmHg 83 VBG HCO3 (23-28) mmol/L 21 L VBG Total CO2 (24-29) mmol/L 20 L VBG O2 Saturation % 97 VBG Base Excess (-2-3) mmol/L -5 L VBG Lactate (<or=2.0) mmol/L 0.8 Oxygen Liter Flow FiO2 Sodium (136-145) mmol/L 135 L 135 L Potassium (3.5-5.1) mmol/L 4.3 3.6 Chloride (98-107) mmol/L 101 101 Carbon Dioxide (21.0-32.0) mmol/L 24.7 27.5 Anion Gap (3-11) mmol/L 9.3 6.5 BUN (7-18) mg/dL 58 H 67 H Creatinine (0.70-1.30) mg/dL 2.2 H 2.2 H Est GFR (CKD-EPI 2020) (mL/min/1.73m2) 31.05 31.05 Glucose (74-106) mg/dL 161 H 164 H Calcium (8.5-10.1) mg/dL 9.1 9.0 Magnesium (1.8-2.4) mg/dL Iron (65-175) ug/dL TIBC (250-450) ug/dL Transferrin % Sat (20-55) % Total Bilirubin (0.2-1.0) mg/dL 0.9 0.8 AST (15-37) U/L 27 17 ALT (16-63) U/L 15 L 18 Alkaline Phosphatase (46-116) U/L 77 71 Troponin I (<or=76) ng/L NT-Pro-B Natriuret Pep (<300) pg/mL Total Protein (6.4-8.2) g/dL 7.0 7.3 Albumin (3.4-5.0) g/dL 2.5 L 2.8 L Procalcitonin ng/mL 44.60 Urine Color (Yellow) Urine Clarity (Clear) Urine pH (5-8) Ur Specific [place] (1.005-1.025) Urine Protein (Neg-Trace) mg/dL Urine Ketones (Negative) mg/dL Urine Blood (Negative) Urine Nitrite (Negative) Urine Bilirubin (Negative) Urine Urobilinogen (Up to 0.2) mg/dL Ur Leukocyte Esterase (Negative) Urine RBC (0-2) HPF Urine WBC (0-5) HPF Ur Epithelial Cells (Negative) HPF Urine Crystals (Negative) HPF Urine Bacteria (Negative) HPF Urine Casts (Negative) LPF Urine Mucus (Negative) Ur Culture Indicated? Urine Glucose (Negative) mg/dL Random Vancomycin ug/mL COVID-19 Source SARS-CoV-2 (PCR) (Negative) Influenza Type A (PCR) (Negative) Influenza Type B (PCR) (Negative) Urine Legionella Ag (Negative) RSV (PCR) (Negative) MRSA (TEM-PCR) (Negative) TB Test Ag - Nil 1 IU/mL TB Test Ag - Nil 2 IU/mL TB Test (QFT) Interp (Negative) Add-On Test Request Range/Units 06/16/25 06/17/25 06/17/25 11:48 05:50 12:32 WBC (4.4-10.8) 10^3/uL 17.17 H RBC (4.36-5.78) 10^6/uL 4.22 L Hgb (13.5-17.5) g/dL 8.8 L Hct (40.0-50.0) % 27.1 L MCV (80-95) fL 64 L MCH (27.0-33.0) pg 20.9 L MCHC (32.0-36.0) % 32.5 RDW (11.8-14.1) % 16.9 H Plt Count (130-400) 10^3/uL 376 MPV (8.0-11.0) fL 9.9 Immature Gran % % 0.8 Neutrophils % % 88.4 Lymphocytes % % 6.3 Monocytes % % 4.4 Eosinophils % % 0.0 Basophils % % 0.1 Nucleated RBC % (0.0-0.3) % 0.4 H Absolute Neutrophils (1.2-6.7) 10^3/uL 15.18 H Absolute Lymphocytes (1.2-3.4) 10^3/uL 1.08 L Absolute Monocytes (0.1-0.8) 10^3/uL 0.76 Absolute Eosinophils (0.0-0.7) 10^3/uL 0.00 Absolute Basophils (0.0-0.2) 10^3/uL 0.02 RBC Morphology Microcytosis ABG Sample Site ABG pH ABG pCO2 ABG pO2 ABG HCO3 ABG Total CO2 ABG O2 Saturation ABG Base Excess VBG pH (7.31-7.41) VBG pCO2 (41-51) mmHg VBG pO2 mmHg VBG HCO3 (23-28) mmol/L VBG Total CO2 (24-29) mmol/L VBG O2 Saturation % VBG Base Excess (-2-3) mmol/L VBG Lactate (<or=2.0) mmol/L 1.0 Oxygen Liter Flow FiO2 Sodium (136-145) mmol/L 142 Potassium (3.5-5.1) mmol/L 3.0 L Chloride (98-107) mmol/L 102 Carbon Dioxide (21.0-32.0) mmol/L 29.8 Anion Gap (3-11) mmol/L 10.2 BUN (7-18) mg/dL 65 H Creatinine (0.70-1.30) mg/dL 1.7 H Est GFR (CKD-EPI 2020) (mL/min/1.73m2) 42.30 Glucose (74-106) mg/dL 126 H Calcium (8.5-10.1) mg/dL 9.0 Magnesium (1.8-2.4) mg/dL 2.1 Iron (65-175) ug/dL 48 L TIBC (250-450) ug/dL 163 L Transferrin % Sat (20-55) % 29 Total Bilirubin (0.2-1.0) mg/dL 0.8 AST (15-37) U/L 12 L ALT (16-63) U/L 19 Alkaline Phosphatase (46-116) U/L 66 Troponin I (<or=76) ng/L NT-Pro-B Natriuret Pep (<300) pg/mL Total Protein (6.4-8.2) g/dL 7.0 Albumin (3.4-5.0) g/dL 2.7 L Procalcitonin ng/mL Urine Color (Yellow) Urine Clarity (Clear) Urine pH (5-8) Ur Specific [place] (1.005-1.025) Urine Protein (Neg-Trace) mg/dL Urine Ketones (Negative) mg/dL Urine Blood (Negative) Urine Nitrite (Negative) Urine Bilirubin (Negative) Urine Urobilinogen (Up to 0.2) mg/dL Ur Leukocyte Esterase (Negative) Urine RBC (0-2) HPF Urine WBC (0-5) HPF Ur Epithelial Cells (Negative) HPF Urine Crystals (Negative) HPF Urine Bacteria (Negative) HPF Urine Casts (Negative) LPF Urine Mucus (Negative) Ur Culture Indicated? Urine Glucose (Negative) mg/dL Random Vancomycin ug/mL COVID-19 Source SARS-CoV-2 (PCR) (Negative) Influenza Type A (PCR) (Negative) Influenza Type B (PCR) (Negative) Urine Legionella Ag (Negative) Positive A RSV (PCR) (Negative) MRSA (TEM-PCR) (Negative) TB Test Ag - Nil 1 IU/mL TB Test Ag - Nil 2 IU/mL TB Test (QFT) Interp (Negative) Add-On Test Request DONE Range/Units 06/ 06:00 WBC (4.4-10.8) 10^3/uL 14.79 H RBC (4.36-5.78) 10^6/uL 4.18 L Hgb (13.5-17.5) g/dL 8.8 L Hct (40.0-50.0) % 27.0 L MCV (80-95) fL 65 L MCH (27.0-33.0) pg 21.1 L MCHC (32.0-36.0) % 32.6 RDW (11.8-14.1) % 16.9 H Plt Count (130-400) 10^3/uL 380 MPV (8.0-11.0) fL 10.0 Immature Gran % % 0.9 Neutrophils % % 79.5 Lymphocytes % % 12.2 Monocytes % % 6.5 Eosinophils % % 0.8 Basophils % % 0.1 Nucleated RBC % (0.0-0.3) % 0.2 Absolute Neutrophils (1.2-6.7) 10^3/uL 11.76 H Absolute Lymphocytes (1.2-3.4) 10^3/uL 1.80 Absolute Monocytes (0.1-0.8) 10^3/uL 0.96 H Absolute Eosinophils (0.0-0.7) 10^3/uL 0.12 Absolute Basophils (0.0-0.2) 10^3/uL 0.01 RBC Morphology Microcytosis ABG Sample Site ABG pH ABG pCO2 ABG pO2 ABG HCO3 ABG Total CO2 ABG O2 Saturation ABG Base Excess VBG pH (7.31-7.41) VBG pCO2 (41-51) mmHg VBG pO2 mmHg VBG HCO3 (23-28) mmol/L VBG Total CO2 (24-29) mmol/L VBG O2 Saturation % VBG Base Excess (-2-3) mmol/L VBG Lactate (<or=2.0) mmol/L 1.0 Oxygen Liter Flow FiO2 Sodium (136-145) mmol/L 140 Potassium (3.5-5.1) mmol/L 3.2 L Chloride (98-107) mmol/L 102 Carbon Dioxide (21.0-32.0) mmol/L 27.6 Anion Gap (3-11) mmol/L 10.4 BUN (7-18) mg/dL 54 H Creatinine (0.70-1.30) mg/dL 1.7 H Est GFR (CKD-EPI 2020) (mL/min/1.73m2) 42.30 Glucose (74-106) mg/dL 121 H Calcium (8.5-10.1) mg/dL 8.7 Magnesium (1.8-2.4) mg/dL Iron (65-175) ug/dL TIBC (250-450) ug/dL Transferrin % Sat (20-55) % Total Bilirubin (0.2-1.0) mg/dL 0.9 AST (15-37) U/L 10 L ALT (16-63) U/L 17 Alkaline Phosphatase (46-116) U/L 62 Troponin I (<or=76) ng/L NT-Pro-B Natriuret Pep (<300) pg/mL Total Protein (6.4-8.2) g/dL 6.6 Albumin (3.4-5.0) g/dL 2.6 L Procalcitonin ng/mL Urine Color (Yellow) Urine Clarity (Clear) Urine pH (5-8) Ur Specific [place] (1.005-1.025) Urine Protein (Neg-Trace) mg/dL Urine Ketones (Negative) mg/dL Urine Blood (Negative) Urine Nitrite (Negative) Urine Bilirubin (Negative) Urine Urobilinogen (Up to 0.2) mg/dL Ur Leukocyte Esterase (Negative) Urine RBC (0-2) HPF Urine WBC (0-5) HPF Ur Epithelial Cells (Negative) HPF Urine Crystals (Negative) HPF Urine Bacteria (Negative) HPF Urine Casts (Negative) LPF Urine Mucus (Negative) Ur Culture Indicated? Urine Glucose (Negative) mg/dL Random Vancomycin ug/mL 9.5 COVID-19 Source SARS-CoV-2 (PCR) (Negative) Influenza Type A (PCR) (Negative) Influenza Type B (PCR) (Negative) Urine Legionella Ag (Negative) RSV (PCR) (Negative) MRSA (TEM-PCR) (Negative) TB Test Ag - Nil 1 IU/mL TB Test Ag - Nil 2 IU/mL TB Test (QFT) Interp (Negative) Add-On Test Request Imaging Chest x-ray: report reviewed and image reviewed
[2025-06-18] MEDS: Pantoprazole 40 MG TABCR PO (07:33)
[2025-06-18] MEDS: Normal Saline Flush 10 ML SYR IVP ×3 (07:48→20:53)
[2025-06-18] MEDS: MORPHine 2 MG/ML SYR IVP (07:49)
[2025-06-18] MEDS: Ipratropium/Albuterol 4 GM 120 PUFF INH IH ×4 (07:57→19:55)
[2025-06-18 08:11] LABS: Streptococcus Pneumoniae Ag, U Negative (Negative)
[2025-06-18] MEDS: Potassium Chloride 20 MEQ TABCR 40 MEQ PO ×2 (08:42→20:43)
[2025-06-18] MEDS: methylPREDNISolone SUCC 125 MG VIAL 60 MG IVP (08:42)
[2025-06-18] MEDS: Furosemide 40 MG/4 ML VIAL IVP (08:42)
[2025-06-18] MEDS: Nicotine 21 MG/24 HR PATCH TD (08:42)
[2025-06-18] MEDS: Carvedilol 25 MG TAB PO ×2 (08:43→20:44)
[2025-06-18] MEDS: Venlafaxine 75 MG CAPCR PO (08:43)
[2025-06-18] MEDS: Docusate Sodium 100 MG/10 ML CUP PO ×2 (08:43→13:40)
[2025-06-18] MEDS: guaiFENesin 600 MG TABCR PO ×2 (08:43→20:45)
[2025-06-18] MEDS: Lisinopril 2.5 MG TAB PO (08:43)
--- NOTE | 2025-06-18 08:43 | PDOC.CMPRO ---
Date of service: 06/18/25 Time of Service: 08:43 Care Management Progress Note Progress Note Text Progress Note Text: Elroy was lying in bed when CM met with him. He had a bronchoscopy yesterday and reported that he has a lot of pain in his stomach today, pointing to his epigastric area. Elroy stated that he told the doctor who said it was to be expected. He also reported being given pain medicine but said it had not been effective yet. Clinically Elroy is slowly improving and maay be downgraded and moved out to the Med-Surg unit later today. Discharge Potential Discharge Needs: Other (return to SNF) Anticipated Barriers to Discharge: None Identified Patient/Family Education Needs: Review discharge instructions, discuss Ask Me Three Transportation: RCT Plan: Anticipate Elroy will be transferred back to [facility] when medically cleared. He will follow up with his facility providers and plan of care and transport via RCT. CM will continue to support discharge planning. Social Determinants of Health Screening Will the Patient Participate in the Screening?: Declined to provide Do you worry about having a steady place to live?: no In the past 12 months, have you had to go without electric, gas, oil or water in your home?: no Comments: lives in a rehab facility
[2025-06-18] MEDS: VANCOMYCIN/WATER (PEG) 1.25 GM/250 ML BAG IVPB (10:03)
--- NOTE | 2025-06-18 10:08 | DI.RAD_ITS ---
Exam(s) XR PORTABLE CHEST AP EXAM: XR PORTABLE CHEST AP CLINICAL HISTORY: pneumonia TECHNIQUE: 2D digital imaging was performed of the chest. One image was obtained. An AP view was obtained. COMPARISON: CR XR PORTABLE CHEST AP from 04/30/2025 CR XR CHEST 2V PA LATERAL from 06/16/2025 FINDINGS: MEDIASTINUM: Normal. HEART: Normal. PULMONARY VASCULATURE: Normal. LUNGS: There has been no change in appearance of the right upper lobe compared to the prior examination. There is a infiltrate present with an area of consolidation laterally. There are new lung markings seen in the right lower lobe. The left lung remains clear. PLEURAL SPACE: No pleural effusion or pneumothorax. BONE:Within normal limits for the patient's age. OTHER FINDINGS:Normal. IMPRESSION: 1. Stable appearance of the right upper lobe pneumonia. 2. New infiltrate seen in the right lung base. DATA REPOSITORY: RADIATION DOSE DELIVERED:
[2025-06-18] MEDS: AZITHROMYCIN 250 MG in Normal Saline 250 ML IVPB (10:28)
--- NOTE | 2025-06-18 11:13 | PGE_ITS ---
Date of Service Date of service: 06/18/25 Time of Service: 11:13 Assessment and Plan Assessment and plan (1) Severe sepsis: Status: Acute Assessment and plan: On admission with elevated WBC 34, RR >20, lactate with pneumonia as source. 34.34, Tachypnea RR 25, lactic 2.6, then 4.0 Started on azithromycin and cefepime MRSA swab positive 06/15, but was improving so MRSA coverage not added. Lactate levels normalized 06/17 with increased WBC and focal consolidation, vancomycin added. With poor dentition cefepime changed to pip/tazo to cover anearobes after d/w Dr. Swain. Regimen then Vanco/zosyn/azithro See pneumonia below. (2) Pneumonia: Status: Acute Assessment and plan: RUL on admission CT. Persistent on 06/16 CXR with concern for increased consolidation, per pulm more c/w consolidation than empyema. Bronchoscopy done 06/17 with cultures from washings pending, including AFB Strep pneumo Ag and quantiferon negative. Mycoplasma serologies pending. Legionalla Ag positive, most likely the pathologic organism, but with +MRSA nares and risk for TB and anearobes, continue current therapy and respiratory precautions pending cultures/AFB smear from 06/17. (3) Acute exacerbation of chronic obstructive pulmonary disease: Status: Acute Assessment and plan: PT is on albuterol/duoneb/methylpred Change to prednisone orally for next dose, off IV. Will need slow taper down to his previously prescribed prednisolone 10mg. Hypoxic respiratory failure resolved, can downgrade to MS status. (4) Lung mass: Status: Acute Assessment and plan: This appears infectious rather than a mass per pulmonology, bronchoscopy done 06/17 but no biopsies. (5) Acute exacerbation of CHF (congestive heart failure): Status: Acute Assessment and plan: Normal LVEF per 04/15/25 echo, never had low LVEF on 4 previous echocardiograms. BNP >9000 double his previous on admission, but required fairly aggressive fluid resuscitation with sepsis. Started IV furosemide 06/15 Will start iv lasix as pt might be having a chf exacerbation. Fluid balance between heart/lungs/kidneys will be challenging. Place olivares/daily weights ~3 liters negative fluid balance 06/16- Creatinine improving 06/17, no change 8/6. Clinically more euvolemic. Will cut furosemide dose from 40mg IV BID to daily Avoiding olivares 2/2 hypospadius. SGLT2i indicated prior to discharge with CKD and CHF (6) Atrial fibrillation: Status: Chronic Assessment and plan: Hx of on carvedilol and apixaban Outpatient cardiology consult requested on 05/03/25 not completed rate controlled, but carvedilol should be BID, changed 06/17. Some Afib overnight on tele, no change (7) GERD (gastroesophageal reflux disease): Status: Chronic Assessment and plan: continue pantoprazole 40mg po daily. (8) Steroid dependence: Status: Chronic Assessment and plan: On methyprednisolone, BP not low so will not change to hydrocortisone. To prednisone 06/18, will need slow taper as above (9) History of tobacco use: Assessment and plan: NRT (10) Palliative care encounter: Assessment and plan: Seen by Dr. Chapa on 05/13/25 See notes re: recommendations. Has venlafaxine and prn lorazepam for anxiety. Once his anxiety is better controlled, Palliative Care and his SNF medical providers should attempt GOC discussion again. Consult placed (11) Acute kidney injury superimposed on stage 3a chronic kidney disease: Status: Acute Assessment and plan: Cr 1.9 from basline 1.3-1-6, then up to 2.2 Was improving with diuresis as above, stable today, cutting furosemide, follow. (12) Presence of stent in coronary artery in patient with coronary artery disease: Status: Chronic Assessment and plan: Hx of stent in 2019, now on apixaban only as concurrent A-fib Troponin 61, 79. 89 on 06/13, not followed since. Related to sepsis, not ACS will repeat PRN if cardiac symptoms (13) Anemia, chronic disease: Status: Acute Assessment and plan: Iron levels repeated, normal transferrin saturation >20%. Iron supplementation won't help. C/w anemia chronic disease/CKD. Very low MCV, but history of normal hgb electrophoresis, no thalasemmia minor. may benefit from EPO chronically as outpatient. Subjective Subjective Patient reports: no new complaints, feels better, tolerating a regular diet and voiding w/o difficulty; denies diarrhea, nausea, vomiting, shortness of breath or fever Interval history since last seen: 24h events: Bronchoscopy 06/17, no complications Legionella antigen positive He is feeling better. Good appetite this morning. Still some pleuritic pain in left lower chest since procedure, but improving. Exam Narrative Exam Narrative: General: alert, no acute distress ENT: no stridor, trachea midline CV: normal rate, regular rhythm Respiratory: improved air movement with slight expriatory wheezing, no crackles. Slightly diminished BS right vs left. GI: abd soft, mild epigastric tenderness, non-distended Extremities: no pedal edema, no digital clubbing, warm Objective Last Vital Signs Temp 36.4 C L 06/18/25 10:43 Pulse 70 06/18/25 10:43 Resp 17 06/18/25 10:43 BP 100/55 L 06/18/25 10:43 Pulse Ox 85 L 06/18/25 11:02 Laboratory Results - last 24 hr 06/13/25 06/16/25 06/17/25 10:20 11:48 11:55 WBC RBC Hgb Hct MCV MCH MCHC RDW Plt Count MPV Immature Gran % Neutrophils % Lymphocytes % Monocytes % Eosinophils % Basophils % Nucleated RBC % Absolute Neutrophils Absolute Lymphocytes Absolute Monocytes Absolute Eosinophils Absolute Basophils VBG Lactate Sodium Potassium Chloride Carbon Dioxide Anion Gap BUN Creatinine Est GFR (CKD-EPI 2020) Glucose Calcium Total Bilirubin AST ALT Alkaline Phosphatase Total Protein Albumin BAL Neutrophils Not Applicable BAL Lymphocytes Not Applicable BAL Eosinophils Not Applicable BAL Basophils Not Applicable BAL Monocyte/Macrophage Not Applicable BAL Path Comment See Comment Random Vancomycin Ur Strep pneumoniae Ag Negative TB Test Ag - Nil 1 0.00 TB Test Ag - Nil 2 0.00 TB Test (QFT) Interp Negative Add-On Test Request 06/17/25 06/18/25 12:32 06:00 WBC 14.79 H RBC 4.18 L Hgb 8.8 L Hct 27.0 L MCV 65 L MCH 21.1 L MCHC 32.6 RDW 16.9 H Plt Count 380 MPV 10.0 Immature Gran % 0.9 Neutrophils % 79.5 Lymphocytes % 12.2 Monocytes % 6.5 Eosinophils % 0.8 Basophils % 0.1 Nucleated RBC % 0.2 Absolute Neutrophils 11.76 H Absolute Lymphocytes 1.80 Absolute Monocytes 0.96 H Absolute Eosinophils 0.12 Absolute Basophils 0.01 VBG Lactate 1.0 Sodium 140 Potassium 3.2 L Chloride 102 Carbon Dioxide 27.6 Anion Gap 10.4 BUN 54 H Creatinine 1.7 H Est GFR (CKD-EPI 2020) 42.30 Glucose 121 H Calcium 8.7 Total Bilirubin 0.9 AST 10 L ALT 17 Alkaline Phosphatase 62 Total Protein 6.6 Albumin 2.6 L BAL Neutrophils BAL Lymphocytes BAL Eosinophils BAL Basophils BAL Monocyte/Macrophage BAL Path Comment Random Vancomycin 9.5 Ur Strep pneumoniae Ag TB Test Ag - Nil 1 TB Test Ag - Nil 2 TB Test (QFT) Interp Add-On Test Request DONE PAWSS Have you Been Recently Intoxicated or Drunk Within the Last 30 days?: No Have you Ever Experienced Previous Episodes of Alcohol Withdrawal?: No Have you ever Experienced Withdrawal Seizures?: No Have you ever Experienced Delirium Tremens(DT)s?: No Have you ever undergone Alcohol Rehabilitation Treatment (i.e, inpt ot outpatient treatment programs)?: No Have you ever Experienced Blackouts?: No Have you ever Combined Alcohol with other Downers within the last 90 days?: No Have you ever Combined Alcohol with any other Substance of Abuse during the last 90 days?: No Positive Blood Alcohol level on Presentation? [PCS.BAL]: No Evidence of Increased Autonomic Activity (i.e. HR>120, tremor, sweating, agitation, nausea)?: No Result: 0 Time Spent with Patient Time Spent with Patient: >50 minutes Time was spent: preparing to see the patient(eg.review tests), obtaining and/or reviewing separately otained hiistory, ordering medications,tests, procedures, referring, communicating with other health managed care director, indepentently interpreting results, counseling the patient and care coordination
[2025-06-18] MEDS: LORazepam 0.5 MG TAB PO (11:47)
[2025-06-18 12:49] LABS: M. pneumoniae Ab, IgG Positive (Negative); M. pneumoniae Ab, IgM Reactive (Negative)
--- NOTE | 2025-06-18 14:00 | PTTR_ITS ---
PT Notes Visit Reasons: Severe Sepsis, Hypoxic Resp Fail Pneumonia,CHF [facility] Therapy Treatment Note [facility] Date: 06/18/2025 PRECAUTIONS: Activity as tolerated. Fall. Droplet and contact precautions. Oxygen as ordered.( currently 0.5 L/Min via NC) SUBJECTIVE: Pt agreeable to participate with PT. Pt reports he is extremely tired, no energy and feeling dizzy every time he moves. OBJECTIVE: Telemetry monitoring in place.? IV access through the L UE. Dyspneic at rest. ? PAIN: He reported pain across trunk at area of diaphragm VITALS: ?Oxygen saturation ranged from 92-95% throughout session on 0.5 L/minute via NC; HR 69-90 bpm throughout session ? BED MOBILITY/TRANSFERS?:? semireclined to sit Independent with rail ? Sit-stand: CGA with FWW?and increased time d/t pain left hip? Stand-sit: CGA from FWW? ? side step x 2 steps for reposition on EOB with FWW min A d/t instability BLE and dizziness ? THERA EX: seated PF/DF x 10 R/L seated marching 2 sets 5 reps seated LAQ 2 sets 5 reps R/L PLB x 2 sets of 30 sec chest expansion x 5 reps ASSESSMENT:? Pt presented with lower HR this session although noted increased reports of dizziness resulting in inability to ambulate. Pt decline to perform transfer to chair for lunch stating it was so hard to get back to bed from the chair this morning because I was so dizzy that I do not feel safe sitting up. Reassurance provided by RN and this PT however pt continued to decline. Pt did agree to participate in seated therex with noted increased dyspnea despite sats maintaining >88% on 0.5 L/Min. PLAN: 1-2x/day, 7 days/week x 1 week. Plan of care has been reviewed with the SERVER SECURITY ADMINISTRATOR providing the service under Physical Therapy direction. Initiate Physical Therapy intervention for strengthening, bed mobility, transfers, gait, stairs, balance training, use of assistive device. TREATMENT CODE/TIME: 91183/[id number] DISCHARGE RECOMMENDATION: Return to SNF with continued PT to return to prior level of independence when medically stable
--- NOTE | 2025-06-18 14:25 | W.PALLCONSUL ---
Date of service: 06/18/25 Time of Service: 13:40 History of Present Illness Narrative: Mr. Abbasi is a 74 y/o M currently hospitalized in ICU 2/2 severe sepsis w/acute on chronic resp failure; PMHx sig for COPD, CHF, HTN, A fib Hospital Course: presented to ED from [facility] on 06/13 s/p fall w/x2d of worsening SOB, hypoxia, N, BIRCH; work up w/new RUL large infiltrate, increase in markings LLL infiltrates; dx PNA, started on azithro and cefepime; admitted w/severe sepsis c/b PNA, acute on chronic resp failure, CARLOS MANUEL on CKD, given IVF; MRSA (+); overnight 06/14 hypoxic event requiring max high flow, tranferred to ICU; Ativan and morphine w/good effect; fluid overload, now on IV lasix; 06/16 pulm consult w/CXR consistent w/empyema; 06/17 scheduled bronchoscopy, increase WBC count, added vanco and Zosyn, cont azithro, stopped cefepime; legionella (+); 06/18 now on RA, acute resp failure resolved, CARLOS MANUEL improved; lung cultures pending, remains at risk for TB and anaerobes - per staff today is in 8/10 pain, across diaphgram, consistent w/post bronch yesterday; morphine 2mg IVP no effect, oxycodone 5mg PO w/a little improvement; pleasant, not anxious, given Ativan earlier w/good effect; he has sig lightheadedness and tachy w/light exertion, taking up to an hour to recover fully [place]roy is feeling much better today; from a resp stand point and bc he has some answers to why he hasn't been feeling well; happy to know he wasn't making it up, he was getting worried people weren't listening to him. Now feels much more comfortably w/treatment plan, feels trending in the right direction; Pain is an 8/10, alex w/any coughing or deep breathing. aware of acute pain likely increased 2/2 yesterday, would like to have pain managed a bit better today and would like to not be over medicated, does like that feeling. He resides now at [facility]. Current plan is to return there, does not have alternative housing. brother Cheko is up to date on his status and his Jacqueline has also been a a tremendous support, he trusts both of them. happy to have his pen pal Aracelis, a great support for him. He is aware that he is downgraded to MS status and may be moving out to floor today; He is happy to stay in hospital for now to continue to improve. He is very happy w/the food here Assessment and Plan Assessment and plan (1) Severe sepsis: Status: Acute Assessment and plan: legionella, MRSA positive continue w/vanc, Zosyn, azithro improved now on RA MS status (2) Pneumonia: Status: Acute Assessment and plan: as above s/p bronchoscopy 06/17/25 recommend oxycodone 5-10mg q4h PRN for today, post scop related pains, reassess tomorrow, presume can return to 5mg dose after 48hrs (3) Acute exacerbation of chronic obstructive pulmonary disease: Status: Acute Assessment and plan: change to oral prednisone, w/taper planned abx as above continue albuterol, duoneb may benefit from PO morphine for dyspnea, consider outpatient hypoxic resp failure resolved, on RA (4) Acute exacerbation of chronic heart failure: Status: Acute Assessment and plan: IV Lasix started on 06/15, plan for taper now that euvolemic (5) Acute kidney injury superimposed on stage 3a chronic kidney disease: Status: Acute Assessment and plan: creatinine baseline 1.3-1.6 up to 2.2, now 1.7 (6) Anxiety: Status: Chronic Assessment and plan: controlled w/current regimen prefers to not feel groggy, avoid full dose lorazepam when able at pt's discretion (7) Deficit in activities of daily living (ADL): Status: Acute Assessment and plan: resides at [facility] (8) Palliative care patient: Status: Acute Assessment and plan: PC will continue to follow inpatient 06/20 if remains inpatient, plan to review updates, CHF, COPD, provide palliative supports - reassess pain, dyspnea as needed PC outpatient visit previously scheduled HV 07/24/25 (9) Advanced care planning/counseling discussion: Status: Acute Assessment and plan: reviewed current POC, provided space to explore his feelings regarding feeling not heard w/recent complaints, how reassuring it feels to know I'm not making it up w/new diagnosis w/PNAs severity spent 10m w/ACP Review of Systems Narrative: as per HPI PFSH All Active Problems Anemia, chronic disease (Acute) Distended abdomen (Acute) Lung mass (Acute) Acute kidney injury superimposed on stage 3a chronic kidney disease (Acute) Severe sepsis (Acute) Sepsis (Acute) CARLOS MANUEL (acute kidney injury) (Acute) Acute exacerbation of chronic obstructive pulmonary disease (Acute) Acute exacerbation of chronic heart failure (Acute) DNR (do not resuscitate) (Acute) As of 05/13/2025: Code status frequently changing. As of 05/13/2025: DNR, +trial of intubation, transfer and treat. Palliative care patient (Acute) Advanced care planning/counseling discussion (Acute) Anxiety (Chronic) Deficit in activities of daily living (ADL) (Acute) GERD (gastroesophageal reflux disease) (Chronic) Atrial fibrillation (Chronic) Steroid dependence (Chronic) Acute exacerbation of CHF (congestive heart failure) (Acute) Lung nodule (Acute) BPH w urinary obs/LUTS (Acute) Microcytic anemia (Chronic) UTI (urinary tract infection) (Acute) Presence of stent in coronary artery in patient with coronary artery disease (Chronic) Diastolic CHF (Chronic) Pneumonia (Acute) Medical History Palliative care encounter ACP (advance care planning) Encounter for hospice care discussion Housing insecurity Financial difficulties Dyspnea Acute exacerbation of chronic obstructive pulmonary disease HTN (hypertension) Chronic renal failure Non-STEMI (non-ST elevated myocardial infarction) History of tobacco use Hypospadias Chronic kidney disease, stage 3 Peripheral arterial occlusive disease Constipation Depression Lower urinary tract symptoms (LUTS) Exertional dyspnea Pulmonary hypertension due to left heart disease Coronary artery disease Diastolic heart failure Lower back pain Dysuria Heartburn Screening for colon cancer Nocturia Urinary frequency Prediabetes Hypoxemia Multiple pulmonary nodules Lumbar back pain with radiculopathy affecting lower extremity Former smoker Congestion of nasal sinus CKD (chronic kidney disease) CHF (congestive heart failure) Alcoholism in recovery Hypospadias in male COPD (chronic obstructive pulmonary disease) Hyperlipidemia Essential hypertension Surgical History History of phacoemulsification of cataract of both eyes with intraocular lens implantation History of tonsillectomy Family History Father Throat cancer Heart disease Myocardial infarction Brother Heart disease Status post coronary stents Social History Smoking/Tobacco Use Status: Former Tobacco Use Quit Date: 01/11/17 Smoking risk assessment performed?: Yes Alcohol Intake: former Year quit: 2016 Details: Former alcoholic up to 2 cases of gin per month Drug use: Never Substance use type: does not use Housing: assisted living facility Number of Children: 0 Pets and animals: Yes Pets and animals: dog(s) What is your relationship status?: Panel score (0-1 are the most socially isolated patients): 1 Do you feel safe at home: Yes Do you feel safe in your relationship?: Yes Exam Narrative Exam Narrative: General: chronically ill appearing male, lying in ICU bed throughout visit; grimace/guarding w/cough noted x3 during visit HEENT: normocephalic, atraumatic, hearing grossly WNL, MMM Resp: normal resp effort at rest; able to speak 2-3 sentences before needing break, recovers quickly; no audible wheeze, no cough Psych: cooperative, pleasant; thought process WNL; insight/judgment fair to good Results Last Vital Signs Temp 97.5 F L 06/18/25 13:49 Pulse 70 06/18/25 13:49 Resp 19 06/18/25 13:49 BP 97/55 L 06/18/25 13:45 Pulse Ox 93 06/18/25 13:45 Labs 06/18/25 06:00 06/18/25 06:00 Labs: Laboratory Results - last 24 hr 06/16/25 06/17/25 06/18/25 11:48 11:55 06:00 WBC 14.79 H RBC 4.18 L Hgb 8.8 L Hct 27.0 L MCV 65 L MCH 21.1 L MCHC 32.6 RDW 16.9 H Plt Count 380 MPV 10.0 Immature Gran % 0.9 Neutrophils % 79.5 Lymphocytes % 12.2 Monocytes % 6.5 Eosinophils % 0.8 Basophils % 0.1 Nucleated RBC % 0.2 Absolute Neutrophils 11.76 H Absolute Lymphocytes 1.80 Absolute Monocytes 0.96 H Absolute Eosinophils 0.12 Absolute Basophils 0.01 VBG Lactate 1.0 Sodium 140 Potassium 3.2 L Chloride 102 Carbon Dioxide 27.6 Anion Gap 10.4 BUN 54 H Creatinine 1.7 H Est GFR (CKD-EPI 2020) 42.30 Glucose 121 H Calcium 8.7 Total Bilirubin 0.9 AST 10 L ALT 17 Alkaline Phosphatase 62 Total Protein 6.6 Albumin 2.6 L BAL Neutrophils Not Applicable BAL Lymphocytes Not Applicable BAL Eosinophils Not Applicable BAL Basophils Not Applicable BAL Monocyte/Macrophage Not Applicable BAL Path Comment See Comment Random Vancomycin 9.5 Ur Strep pneumoniae Ag Negative Time Spent Time Spent with Patient Time Spent(min): 45
--- NOTE | 2025-06-18 15:48 | PT.INTREAT ---
PT Notes Visit Reasons: Severe Sepsis, Hypoxic Resp Fail Pneumonia,CHF [facility] Inpatient Physical Therapy Treatment Note [facility] Date: 06/18/2025 (pm Session) PRECAUTIONS: Activity as tolerated. Fall. Droplet and contact precautions. SUBJECTIVE: Pt agreeable to participate with PT. Pt stating he is going to the other unit soon OBJECTIVE: Telemetry monitoring in place.? IV access through the L UE. ? PAIN: He reported pain in left anteriolateral hip with transition sit to/from stand and with ambulation VITALS: ?Oxygen saturation ranged from 92-95% throughout session on RA HR from 70-89 bpm throughout ? BED MOBILITY/TRANSFERS?:? Sit-stand: SBA with FWW?and increased time d/t pain left hip?x 3 trials ? Stand-sit: SBA with FWW? Bed-Chair (next to bed): SBA with FWW ? Chair-bed: SBA ?with FWW? GAIT? Assistive Device: FWW? Weight bearing: FWB Assist: Contact guard assist ? Distance:? 10 steps x2 ? Deviation: Decreased gait speed. Short step height and length. Minimal cues provided for AD management and self pacing. ? STAIRS: Not done due to current precuations ? THERA EX: seated PF/DF x 10 R/L seated LAQ 2 sets 5 reps R/L seated marching 5 reps ASSESSMENT:? Pt remains in negative pressure room while awaiting results of TB testing/culture. Pt continues on Droplet and contact precautions at this time. Pt with less MONTIEL this session as compared to am. He demonstrates improved sit to stand from elevated surfaces with less pain. Pt may benefit from a cushion in recliner in new room on Med Surg unit. Pt may also benefit from further assessment of height of FWW . Pt liked having increased forward trunk flexion on shorter walker however concern for increased back pain if he continues with it at this height. PLAN: 1-2x/day, 7 days/week x 1 week. Plan of care has been reviewed with the [facility] providing the service under Physical Therapy direction. Initiate Physical Therapy intervention for strengthening, bed mobility, transfers, gait, stairs, balance training, use of assistive device. TREATMENT CODE/TIME: 06718, [id number] DISCHARGE RECOMMENDATION: Return to SNF with continued PT to return to prior level of independence when medically stable
[2025-06-18] MEDS: Enoxaparin 40 MG/0.4 ML SYR SC (18:04)
[2025-06-18] MEDS: dilTIAZem 30 MG TAB PO (19:11)
--- NOTE | 2025-06-18 19:37 | W.PC.ACHO1 ---
Registration Status: ADM IN Primary Language: Preferred Language: Maori ED Information & Data Chief Complaint Chest Pain 06/13/25 09:44 Triage Note Two unwitnessed falls since 06/13/25 07:33 yesterday. Yesterdays 2/2 to near syncope while ambulating and today's sudden onset of weakness and pt reports slipping off side of bed shortly after awakening. C/o CP, worse on respirations and SOB. AAOx3. Medical / Surgical History (Last Reviewed 06/18/25 @ 14:37 by Ange Carnes NP) ACP (advance care planning) Acute exacerbation of chronic obstructive pulmonary disease Alcoholism in recovery CHF (congestive heart failure) Chronic kidney disease, stage 3 Chronic renal failure CKD (chronic kidney disease) Congestion of nasal sinus Constipation COPD (chronic obstructive pulmonary disease) Coronary artery disease Depression Diastolic heart failure Dyspnea Dysuria Encounter for hospice care discussion Essential hypertension Exertional dyspnea Financial difficulties Former smoker Heartburn History of tobacco use Housing insecurity HTN (hypertension) Hyperlipidemia Hypospadias Hypospadias in male Hypoxemia Lower back pain Lower urinary tract symptoms (LUTS) Lumbar back pain with radiculopathy affecting lower extremity Multiple pulmonary nodules Nocturia Non-STEMI (non-ST elevated myocardial infarction) Palliative care encounter Peripheral arterial occlusive disease Prediabetes Pulmonary hypertension due to left heart disease Screening for colon cancer Urinary frequency (Last Reviewed 06/18/25 @ 14:37 by Ange Carnes NP) History of phacoemulsification of cataract of both eyes with intraocular lens implantation History of tonsillectomy Most Recent Vital Signs Temperature 36.1 C L 06/18/25 15:47 Temperature Source Tympanic 06/18/25 15:47 Pulse 70 06/18/25 15:47 Pulse Rhythm Irregular 06/13/25 12:22 Pulse 70 06/18/25 14:32 Respiratory Rate 18 06/18/25 15:47 Respiratory Effort Labored, Accessory Muscle Use, Tripod 06/14/25 04:20 Respiratory Depth Shallow 06/13/25 12:22 Respiratory Pattern Tachypnea 06/14/25 04:20 Blood Pressure 146/65 H 06/18/25 15:47 Blood Pressure Mean 92 06/18/25 15:47 Pulse Oximetry 94 06/18/25 15:47 Oxygen Delivery Method Room Air 06/18/25 15:47 Oxygen Flow Rate 0 06/18/25 15:47 Fraction of Inspired Oxygen (FIO2) 28 06/15/25 00:15 Pain Level 8 06/18/25 13:49 Comment PT is also using oxy mask at 10L 06/13/25 12:22 Allergies lisinopril Adverse Reaction (Unknown, Unverified 05/03/25 02:05) low BP, worsening CKD codeine phosphate (From Tylenol-Codeine) Adverse Reaction (Unverified 05/03/25 02:05) constipation Active Medications Generic Name Dose Route Start Last Admin Trade Name Freq PRN Reason Stop Dose Admin Acetaminophen 650 mg 06/13/25 12:22 06/18/25 05:02 Acetaminophen 325 Mg Tab PO 650 mg Q4H PRN PRN Administration Albuterol Sulfate 2 puff 06/13/25 14:06 06/17/25 11:35 Albuterol Hfa 8 Gm 60 Puff Inh IH 2 inh Q4H PRN PRN Administration Albuterol/Ipratropium 1 puff 06/13/25 16:00 06/18/25 16:58 Ipratropium/Albuterol 4 Gm 120 Puff Inh IH 1 puff QID MAIA Administration Albuterol/Ipratropium 3 ml 06/14/25 00:32 06/16/25 06:21 Albuterol/Ipratropium 3 Ml Upd Vial UPD 3 ml Q4H PRN PRN Administration Bacteriostatic Water 0 ml 06/14/25 02:50 06/17/25 09:03 Water,Injection,Bacteriostatic 30 Ml Vial IJ 30 ml DIRECTED PRN Administration Carvedilol 25 mg 06/17/25 08:30 06/18/25 08:43 Carvedilol 25 Mg Tab PO 25 mg BID MAIA Administration Docusate Sodium 100 mg 06/13/25 20:00 06/18/25 13:40 Docusate Sodium 100 Mg/10 Ml Cup PO 100 mg TID MAIA Administration Guaifenesin 600 mg 06/13/25 20:00 06/18/25 08:43 Guaifenesin 600 Mg Tabcr PO 600 mg BID MAIA Administration Hydralazine HCl 10 mg 06/16/25 08:44 06/16/25 18:12 Hydralazine 20 Mg/Ml Vial IVP 10 mg QID PRN PRN Administration hypertension Hydroxyzine HCl 10 mg 06/16/25 09:11 06/16/25 20:45 Hydroxyzine Hcl 10 Mg Tab PO 10 mg TID PRN PRN Administration Azithromycin 250 mg/ Sodium 250 mls @ 250 mls/hr 06/14/25 10:00 06/18/25 11:47 Chloride IVPB Infused Q24H MAIA Infusion Piperacillin Sod/Tazobactam 50 mls @ 12.5 mls/hr 06/17/25 08:30 06/18/25 16:08 Sod 3.375 gm/ Sodium Chloride IVPB 12.5 mls/hr Q8H MAIA Administration Lisinopril 2.5 mg 06/17/25 08:30 06/18/25 08:43 Lisinopril 2.5 Mg Tab PO 2.5 mg DAILY MAIA Administration Lorazepam 0.5 mg 06/13/25 22:16 06/18/25 11:47 Lorazepam 0.5 Mg Tab PO 0.5 mg Q4H PRN PRN Administration Morphine Sulfate 2 mg 06/14/25 01:07 06/18/25 07:49 Morphine 2 Mg/Ml Syr IVP 2 mg Q2H PRN PRN Administration Nicotine 21 mg 06/14/25 08:30 06/18/25 08:42 Nicotine 21 Mg/24 Hr Patch TD 21 mg DAILY MAIA Administration Oxycodone HCl 5 - 10 mg 06/18/25 14:24 06/18/25 14:48 Oxycodone 5 Mg Tab PO 10 mg Q4H PRN PRN Administration Pantoprazole Sodium 40 mg 06/14/25 07:30 06/18/25 07:33 Pantoprazole 40 Mg Tabcr PO 40 mg DAILY@0730 MAIA Administration Potassium Chloride 40 meq 06/18/25 08:30 06/18/25 08:42 Potassium Chloride 20 Meq Tabcr PO 06/18/25 20:01 40 meq BID MAIA Administration Sodium Chloride 0 ml 06/13/25 12:22 06/18/25 08:43 Normal Saline Flush 10 Ml Syr IVP 30 ml PRN PRN Administration Sodium Chloride 0 ml 06/13/25 20:00 06/18/25 07:48 Normal Saline Flush 10 Ml Syr IVP 40 ml BID MAIA Administration Venlafaxine HCl 75 mg 06/14/25 08:30 06/18/25 08:43 Venlafaxine 75 Mg Capcr PO 75 mg DAILY MAIA Administration IV IV Catheter Type [Right Saline Lock Forearm] IV Catheter Type [Right Upper Saline Lock arm] IV Catheter Type [Left Forearm Peripheral IV ] IV Catheter Type [Left Wrist] Peripheral IV IV Catheter Type [Right Wrist] Saline Lock IV Catheter Type [Right Peripheral IV Antecubital] IV Catheter Gauge [Right 20 Forearm] IV Catheter Gauge [Right Upper 20 arm] IV Catheter Gauge [Left 20 Forearm] IV Catheter Gauge [Left Wrist] 20 IV Catheter Gauge [Right Wrist 20 ] IV Catheter Gauge [Right 20 Antecubital] Diagnostics 06/18/25 06/17/25 06/16/25 Range/Units 06:00 11:55 11:48 WBC 14.79 H (4.4-10.8) 10^3/uL RBC 4.18 L (4.36-5.78) 10^6/uL Hgb 8.8 L (13.5-17.5) g/dL Hct 27.0 L (40.0-50.0) % MCV 65 L (80-95) fL MCH 21.1 L (27.0-33.0) pg MCHC 32.6 (32.0-36.0) % RDW 16.9 H (11.8-14.1) % Plt Count 380 (130-400) 10^3/uL MPV 10.0 (8.0-11.0) fL Immature Gran % 0.9 % Neutrophils % 79.5 % Lymphocytes % 12.2 % Monocytes % 6.5 % Eosinophils % 0.8 % Basophils % 0.1 % Nucleated RBC % 0.2 (0.0-0.3) % Absolute Neutrophils 11.76 H (1.2-6.7) 10^3/uL Absolute Lymphocytes 1.80 (1.2-3.4) 10^3/uL Absolute Monocytes 0.96 H (0.1-0.8) 10^3/uL Absolute Eosinophils 0.12 (0.0-0.7) 10^3/uL Absolute Basophils 0.01 (0.0-0.2) 10^3/uL VBG Lactate 1.0 (<or=2.0) mmol/L Sodium 140 (136-145) mmol/L Potassium 3.2 L (3.5-5.1) mmol/L Chloride 102 (98-107) mmol/L Carbon Dioxide 27.6 (21.0-32.0) mmol/L Anion Gap 10.4 (3-11) mmol/L BUN 54 H (7-18) mg/dL Creatinine 1.7 H (0.70-1.30) mg/dL Est GFR (CKD-EPI 2020) 42.30 (mL/min/1.73m2) Glucose 121 H (74-106) mg/dL Calcium 8.7 (8.5-10.1) mg/dL Total Bilirubin 0.9 (0.2-1.0) mg/dL AST 10 L (15-37) U/L ALT 17 (16-63) U/L Alkaline Phosphatase 62 (46-116) U/L Total Protein 6.6 (6.4-8.2) g/dL Albumin 2.6 L (3.4-5.0) g/dL BAL Neutrophils Not Applicable BAL Lymphocytes Not Applicable BAL Eosinophils Not Applicable BAL Basophils Not Applicable BAL Monocyte/Macrophage Not Applicable BAL Path Comment See Comment Random Vancomycin 9.5 ug/mL M. pneumoniae Interp Mycoplasma pneumon IgG (Negative) Mycoplasma pneumon IgM (Negative) M.pneumoniae IgM (IFA) Ur Strep pneumoniae Ag Negative (Negative) 06/16/25 Range/Units 05:57 WBC (4.4-10.8) 10^3/uL RBC (4.36-5.78) 10^6/uL Hgb (13.5-17.5) g/dL Hct (40.0-50.0) % MCV (80-95) fL MCH (27.0-33.0) pg MCHC (32.0-36.0) % RDW (11.8-14.1) % Plt Count (130-400) 10^3/uL MPV (8.0-11.0) fL Immature Gran % % Neutrophils % % Lymphocytes % % Monocytes % % Eosinophils % % Basophils % % Nucleated RBC % (0.0-0.3) % Absolute Neutrophils (1.2-6.7) 10^3/uL Absolute Lymphocytes (1.2-3.4) 10^3/uL Absolute Monocytes (0.1-0.8) 10^3/uL Absolute Eosinophils (0.0-0.7) 10^3/uL Absolute Basophils (0.0-0.2) 10^3/uL VBG Lactate (<or=2.0) mmol/L Sodium (136-145) mmol/L Potassium (3.5-5.1) mmol/L Chloride (98-107) mmol/L Carbon Dioxide (21.0-32.0) mmol/L Anion Gap (3-11) mmol/L BUN (7-18) mg/dL Creatinine (0.70-1.30) mg/dL Est GFR (CKD-EPI 2020) (mL/min/1.73m2) Glucose (74-106) mg/dL Calcium (8.5-10.1) mg/dL Total Bilirubin (0.2-1.0) mg/dL AST (15-37) U/L ALT (16-63) U/L Alkaline Phosphatase (46-116) U/L Total Protein (6.4-8.2) g/dL Albumin (3.4-5.0) g/dL BAL Neutrophils BAL Lymphocytes BAL Eosinophils BAL Basophils BAL Monocyte/Macrophage BAL Path Comment Random Vancomycin ug/mL M. pneumoniae Interp See Comment Mycoplasma pneumon IgG Positive A (Negative) Mycoplasma pneumon IgM Reactive A (Negative) M.pneumoniae IgM (IFA) Pending Ur Strep pneumoniae Ag (Negative) 06/13/25 10:05 Blood Culture - Final Blood NO GROWTH 120 HOURS 06/13/25 10:20 Blood Culture - Final Blood NO GROWTH 120 HOURS Intake and Output - 24 Hour Total 06/13/25 07:27 thru 06/18/25 18:05 Intake Total 9070.000 Output Total 25678 Balance -1820.000 Weight 92.8 kg Intake: IV 4430.000 Oral 4640 Output: Urine 87889 Other: Urine Color Yellow Urine Appearance Clear Urine Odor None Comment Patient voided 250mL moderate sven colored urine in bedside commode. Stool Size Moderate Stool Characteristics Soft Falls Risk Assessment History of Falls Previous History 06/14/25 04:20 Contributing Factors Unstable 06/14/25 04:20 Ambulatory Aids Independent 06/14/25 04:20 Tubes/Lines With any additional score 06/14/25 04:20 Gait Evaluation W/any additional score 06/14/25 04:20 Cognition No cognitive impairment 06/14/25 04:20 Fall Total Score 58 06/14/25 04:20 Level of Risk High Risk 06/14/25 04:20 Problems (Last Reviewed 06/18/25 @ 14:37 by Ange Carnes NP) Anemia, chronic disease (Acute) Distended abdomen (Acute) Lung mass (Acute) Acute kidney injury superimposed on stage 3a chronic kidney disease (Acute) Severe sepsis (Acute) Acute exacerbation of chronic obstructive pulmonary disease (Acute) Acute exacerbation of chronic heart failure (Acute) Palliative care patient (Acute) Advanced care planning/counseling discussion (Acute) Anxiety (Chronic) Deficit in activities of daily living (ADL) (Acute) GERD (gastroesophageal reflux disease) (Chronic) Atrial fibrillation (Chronic) Steroid dependence (Chronic) Acute exacerbation of CHF (congestive heart failure) (Acute) BPH w urinary obs/LUTS (Acute) Presence of stent in coronary artery in patient with coronary artery disease (Chronic) Pneumonia (Acute) Notes 06/17/25 12:30 Respiratory by Óscar Pereyra RT present for bedside bronch in ICU room 219. Pt administered 2 puffs of PRN albuterol MDI at 11:30 before bronch. Combivent 1 puff (scheduled) given post bronch at 12:30. RUL BAL done with 60mL saline and were able to get aprx 15mL sample. Pre-bronch pt's SpO2 93% on 1L nasal cannula. Post bronch pt placed on OxyMask at 15L until easily arousable. Pt currently awake, alert, and able to follow commands, resting on 6L nasal cannula with SpO2 94%. ICU Nurse currently in room with patient. Initialized on 06/17/25 12:30 - END OF NOTE 06/14/25 04:15 Nursing Notes by Stephanie Becerra pt admitted for pneumonia, CHF exa, pt is using oxygen at home 3-4L/min NC, WAREHOUSE ADMINISTRATOR assessted pt few times adjusted the oxygen as needed, gave nebulizer treatment, PRN morphine, O2 sat increased to 92%, for short time, but pt was restless, anxious, get up to tripod position on and off, keep desating to low as 79%-83%, ativan and morphine provided with short relief, MD aware of all situation change on patient, around 0200 contact MD again, to update on patient situation O2 sat 83% on 10L/min high flow NC, STach HR 109-123, converted to Afib for one hour, SOB, tripod position,using accessory muscle, resless. MD at bedside, un order for ABG, and transfer patient to ICU. Initialized on 06/14/25 04:15 - END OF NOTE v v v v v v v v v Sending and/or Receiving Nurses: Please use comment section below to note any information pertinent to the patient hand-off not included above. Information / Comments: Report received from: Patient transferred from the ICU @ 1910 and report was received from [place]. Patient was A & O x 3 and vital signs were stable.
[2025-06-18] MEDS: Apixaban 5 MG TAB PO (20:45)
[2025-06-19] VITALS (9 sets, daily range): BP systolic 95–143; BP diastolic 49–81; PULSE 69–130; RESP 16–22; TEMP 36.3–39.5; O2SAT 91–95
--- NOTE | 2025-06-19 | RT.EKG_ITS ---
APPROVED REPORT Exam: Resting ECG Reason for Exam: afib to 2nd degree Patient Location: I HR:68 bpm ECG Measurements Heart Rate 68 AXIS [place] [id number] P [id number] QRSd 103 QRS 50 QT 410 T 83 QTc 437 Conclusion Atrial flutter with predominant 4:1 AV block...A-rate 272, multiple Ps
[2025-06-19] MEDS: PIPERACILLIN/TAZO 3.375 GM in Normal Saline 50 ML IVPB ×3 (00:21→16:29)
[2025-06-19] MEDS: Normal Saline Flush 10 ML SYR IVP ×3 (00:23→20:20)
[2025-06-19] MEDS: Acetaminophen 325 MG TAB 650 MG PO (01:09)
[2025-06-19 07:13] LABS: BUN 52 mg/dL (7-18); CO2 26.1 mmol/L (21.0-32.0); Calcium 9.0 mg/dL (8.5-10.1); Chloride 104 mmol/L (98-107); Estimated GFR 42.30 (mL/min/1.73m2); Glucose 96 mg/dL (74-106); Potassium 4.2 mmol/L (3.5-5.1); Sodium 138 mmol/L (136-145)
[2025-06-19 07:14] LABS: Anion Gap 7.9 mmol/L (3-11); Magnesium 1.9 mg/dL (1.8-2.4)
[2025-06-19] MEDS: Ipratropium/Albuterol 4 GM 120 PUFF INH IH ×4 (07:55→20:33)
--- NOTE | 2025-06-19 08:28 | W.PULMPROG ---
Assessment and Plan Assessment and plan (1) Pneumonia: Status: Acute Qualifiers: Pneumonia type: due to unspecified organism Laterality: right Lung location: lower lobe of lung Qualified Code(s): J18.1 - Lobar pneumonia, unspecified organism (2) Acute exacerbation of chronic obstructive pulmonary disease: Status: Acute (3) Lung nodule: Status: Acute General Date Of Service Date of service: 06/19/25 Time of Service: 07:10 Reason for Consult: Pneumonia Recommendations: Assessment: 1. Sepsis - due to pneumonia 2. Legionella pneumonia - urine legionella ag positive. Infectious workup also positive for MRSA nasal swab. Bld cultures negative. BAL bacterial/fungal/afb cultures pending 3. COPD exacerbation - underlying class 2E COPD 4. Acute on chronic renal failure - Cr improved to 1.7 5. Pulmonary nodules - ~1.5 cm partially calcified nodule in the anterior RUL with a smaller satellite nodule - stable from 08/2020 to 06/2025, suggesting a benign etiology Plan: - followup on BAL cultures and smears. If AFB smears are negative, can d/c airborne isolation. Until then, should remain in - continue vancomycin, zosyn, and azithromycin. Once BAL bacterial cultures are back, will be able to streamline antibiotics. Has very poor dentition, so at risk for anaerobic pneumonia - continue methylpred to 62.5 mg daily - continue bronchodilators Discussed with Dr. Rangel Subjective Note Note: Patient is a 74 yo with a history of COPD, CAD, tobacco abuse and CKD who was admitted for right upper lobe pneumonia. He reported feeling unwell since 01/2025. Has had intermittent evaluations since that time. Symptoms worsened recently, prompting his current admission. Reports subjective fevers at home. Has a cough but not producing sputum. Denied any hemoptysis. No chest pain. CT chest showed a severe RUL pneumonia. No pleural effusions. He has a 1.5 cm partially calficied nodule that has been stable for years. He has very poor dentition. Denied any aspiration episodes. No known TB exposures. Currently living in nursing facility / assisted living. Bronchoscopy completed 06/17 with BAL of the RUL. Analysis and cultures pending. On room air. Has a cough but not expectorating much. Chest pain has improved. Family history: mother - COPD Smoking history: smoked 1 ppd x 50 years. Active TB exposures: no known exposures ROS: 6 pt ROS negative except as in HPI Exam Narrative Exam Narrative: General: alert, no acute distress Head: normocephalic ENT: no stridor, trachea midline, poor dentition CV: normal rate, regular rhythm Respiratory: no wheezing, no crackles, right sided rhonchi, no prolonged expiration GI: abd soft, non-tender, non-distended Skin: no rashes Extremities: +1 edema, no digital clubbing Psych: normal affect Objective Last Vital Signs Temp 36.9 C 06/19/25 07:58 Pulse 98 H 06/19/25 07:58 Resp 18 06/19/25 07:58 BP 113/72 06/19/25 07:58 Pulse Ox 94 06/19/25 07:58 Laboratory Results - last 24 hr 06/16/25 06/16/25 06/17/25 05:57 11:48 11:55 Sodium Potassium Chloride Carbon Dioxide Anion Gap BUN Creatinine Est GFR (CKD-EPI 2020) Glucose Calcium Magnesium BAL Neutrophils Not Applicable BAL Lymphocytes Not Applicable BAL Eosinophils Not Applicable BAL Basophils Not Applicable BAL Monocyte/Macrophage Not Applicable BAL Path Comment See Comment Gram Stain No Neutrophils Seen M. pneumoniae Interp See Comment Mycoplasma pneumon IgG Positive A Mycoplasma pneumon IgM Reactive A Ur Strep pneumoniae Ag Negative Aerobic Culture SEE BELOW Ref Test Specimen Type Not Applicable Ref Report Verification Not Applicable 06/19/25 06:50 Sodium 138 Potassium 4.2 D Chloride 104 Carbon Dioxide 26.1 Anion Gap 7.9 BUN 52 H Creatinine 1.7 H Est GFR (CKD-EPI 2020) 42.30 Glucose 96 Calcium 9.0 Magnesium 1.9 BAL Neutrophils BAL Lymphocytes BAL Eosinophils BAL Basophils BAL Monocyte/Macrophage BAL Path Comment Gram Stain M. pneumoniae Interp Mycoplasma pneumon IgG Mycoplasma pneumon IgM Ur Strep pneumoniae Ag Aerobic Culture Ref Test Specimen Type Ref Report Verification Results Medications Medications: Active Medications Generic Name Dose Route Start Last Admin Trade Name Freq PRN Reason Stop Dose Admin Acetaminophen 650 mg 06/13/25 12:22 06/19/25 01:09 Acetaminophen 325 Mg Tab PO 650 mg Q4H PRN PRN Administration Al Hydrox/Mg Hydrox/Simethicone 30 ml 06/13/25 12:22 Mylanta Suspension 30 Ml Cup PO Q2H PRN PRN Albuterol Sulfate 2 puff 06/13/25 14:06 06/17/25 11:35 Albuterol Hfa 8 Gm 60 Puff Inh IH 2 inh Q4H PRN PRN Administration Albuterol/Ipratropium 1 puff 06/13/25 16:00 06/19/25 07:55 Ipratropium/Albuterol 4 Gm 120 Puff Inh IH 1 puff QID MAIA Administration Albuterol/Ipratropium 3 ml 06/14/25 00:32 06/16/25 06:21 Albuterol/Ipratropium 3 Ml Upd Vial UPD 3 ml Q4H PRN PRN Administration Apixaban 5 mg 06/18/25 20:00 06/18/25 20:45 Apixaban 5 Mg Tab PO 5 mg BID MAIA Administration Bacteriostatic Water 0 ml 06/14/25 02:50 06/17/25 09:03 Water,Injection,Bacteriostatic 30 Ml Vial IJ 30 ml DIRECTED PRN Administration Bacteriostatic Water 0 ml 06/16/25 08:34 Water,Injection,Bacteriostatic 30 Ml Vial IJ DIRECTED PRN Carvedilol 25 mg 06/17/25 08:30 06/18/25 20:44 Carvedilol 25 Mg Tab PO 25 mg BID MAIA Administration Docusate Sodium 100 mg 06/13/25 20:00 06/18/25 23:51 Docusate Sodium 100 Mg/10 Ml Cup PO Not Given TID MAIA Furosemide 40 mg 06/19/25 08:30 Furosemide 40 Mg/4 Ml Vial IVP DAILY MAIA Guaifenesin 600 mg 06/13/25 20:00 06/18/25 20:45 Guaifenesin 600 Mg Tabcr PO 600 mg BID MAIA Administration Hydralazine HCl 10 mg 06/16/25 08:44 06/16/25 18:12 Hydralazine 20 Mg/Ml Vial IVP 10 mg QID PRN PRN Administration hypertension Hydroxyzine HCl 10 mg 06/16/25 09:11 06/16/25 20:45 Hydroxyzine Hcl 10 Mg Tab PO 10 mg TID PRN PRN Administration Azithromycin 250 mg/ Sodium 250 mls @ 250 mls/hr 06/14/25 10:00 06/18/25 11:47 Chloride IVPB Infused Q24H MAIA Infusion Piperacillin Sod/Tazobactam 50 mls @ 12.5 mls/hr 06/17/25 08:30 06/19/25 04:21 Sod 3.375 gm/ Sodium Chloride IVPB Infused Q8H [facility] Infusion Vancomycin/PEG/NADA/Lysine/Water 1 gm in 200 mls @ 200 mls/hr 06/19/25 10:00 Vancocin Injection IVPB Q24H [facility] IV Miscellaneous Supplies 1 each 06/13/25 12:22 Iv Access IV DIRECTED [facility] Lidocaine HCl 30 ml 06/16/25 09:00 Lidocaine 2% Viscous 15 Ml Cup PO DIRECTED [facility] Lidocaine HCl 10 ml 06/16/25 08:45 Lidocaine 1% Multi-Dose 20 Ml Vial IJ DIRECTED [facility] Lidocaine HCl 6 ml 06/16/25 08:45 Lidocaine 2% Multi-Dose 20 Ml Vial IJ DIRECTED [facility] Lisinopril 2.5 mg 06/17/25 08:30 06/18/25 08:43 Lisinopril 2.5 Mg Tab PO 2.5 mg DAILY MAIA Administration Lorazepam 0.5 mg 06/13/25 22:16 06/18/25 11:47 Lorazepam 0.5 Mg Tab PO 0.5 mg Q4H PRN PRN Administration Morphine Sulfate 2 mg 06/14/25 01:07 06/18/25 07:49 Morphine 2 Mg/Ml Syr IVP 2 mg Q2H PRN PRN Administration Nicotine 21 mg 06/14/25 08:30 06/18/25 08:42 Nicotine 21 Mg/24 Hr Patch TD 21 mg DAILY [facility] Administration Oxycodone HCl 5 - 10 mg 06/18/25 14:24 06/18/25 20:50 Oxycodone 5 Mg Tab PO 5 mg Q4H PRN PRN Administration Pantoprazole Sodium 40 mg 06/14/25 07:30 06/18/25 07:33 Pantoprazole 40 Mg Tabcr PO 40 mg DAILY@0730 [facility] Administration Polyethylene Glycol 17 gm 06/13/25 12:22 Polyethylene Glycol 3350 17 Gm Packet PO DAILY PRN PRN Constipation Prednisone 40 mg 06/19/25 08:30 Prednisone 20 Mg Tab PO DAILY [facility] Sodium Chloride 0 ml 06/13/25 12:22 06/19/25 00:23 Normal Saline Flush 10 Ml Syr IVP 10 ml PRN PRN Administration Sodium Chloride 0 ml 06/13/25 20:00 06/18/25 20:53 Normal Saline Flush 10 Ml Syr IVP 20 ml BID MAIA Administration Sodium Chloride 0 ml 06/13/25 12:22 Normal Saline 10 Ml Vial IJ DIRECTED PRN Venlafaxine HCl 75 mg 06/14/25 08:30 06/18/25 08:43 Venlafaxine 75 Mg Capcr PO 75 mg DAILY MAIA Administration Allergies lisinopril Adverse Reaction (Unknown, Unverified 05/03/25 02:05) low BP, worsening CKD codeine phosphate (From Tylenol-Codeine) Adverse Reaction (Unverified 05/03/25 02:05) constipation Labs 06/18/25 06:00 06/19/25 06:50 Labs: 06/13/25 10:05 Blood Blood Culture - Final NO GROWTH 120 HOURS 06/13/25 10:20 Blood Blood Culture - Final NO GROWTH 120 HOURS 06/14/25 00:34 Urine - Reflex from Ua Urine Culture - Final Gram positive asaf, mixed Laboratory Tests Range/Units 06/13/25 06/13/25 06/13/25 08:00 09:55 10:20 WBC (4.4-10.8) 10^3/uL 34.34 H* RBC (4.36-5.78) 10^6/uL 4.74 Hgb (13.5-17.5) g/dL 10.1 L Hct (40.0-50.0) % 33.2 L MCV (80-95) fL 70 L MCH (27.0-33.0) pg 21.3 L MCHC (32.0-36.0) % 30.4 L RDW (11.8-14.1) % 17.8 H Plt Count (130-400) 10^3/uL 443 H MPV (8.0-11.0) fL 10.0 Immature Gran % % 0.0 Neutrophils % % 86.0 Lymphocytes % % 11.0 Monocytes % % 3.0 Eosinophils % % 0.0 Basophils % % 0.0 Nucleated RBC % (0.0-0.3) % 1.0 H Absolute Neutrophils (1.2-6.7) 10^3/uL 29.53 H Absolute Lymphocytes (1.2-3.4) 10^3/uL 3.78 H Absolute Monocytes (0.1-0.8) 10^3/uL 1.03 H Absolute Eosinophils (0.0-0.7) 10^3/uL 0.00 Absolute Basophils (0.0-0.2) 10^3/uL 0.00 RBC Morphology Normal Microcytosis ABG Sample Site ABG pH ABG pCO2 ABG pO2 ABG HCO3 ABG Total CO2 ABG O2 Saturation ABG Base Excess VBG pH (7.31-7.41) 7.38 VBG pCO2 (41-51) mmHg 37 L VBG pO2 mmHg 51 VBG HCO3 (23-28) mmol/L 22 L VBG Total CO2 (24-29) mmol/L 21 L VBG O2 Saturation % 86 VBG Base Excess (-2-3) mmol/L -3 L VBG Lactate (<or=2.0) mmol/L 2.6 H* Oxygen Liter Flow FiO2 Sodium (136-145) mmol/L 139 Potassium (3.5-5.1) mmol/L 4.1 Chloride (98-107) mmol/L 101 Carbon Dioxide (21.0-32.0) mmol/L 25.8 Anion Gap (3-11) mmol/L 12.2 H BUN (7-18) mg/dL 36 H Creatinine (0.70-1.30) mg/dL 1.9 H Est GFR (CKD-EPI 2020) (mL/min/1.73m2) 37.02 Glucose (74-106) mg/dL 117 H Calcium (8.5-10.1) mg/dL 8.8 Magnesium (1.8-2.4) mg/dL 2.0 Iron (65-175) ug/dL TIBC (250-450) ug/dL Transferrin % Sat (20-55) % Total Bilirubin (0.2-1.0) mg/dL 2.2 H AST (15-37) U/L 13 L ALT (16-63) U/L 16 Alkaline Phosphatase (46-116) U/L 64 Troponin I (<or=76) ng/L 61 79 H* NT-Pro-B Natriuret Pep (<300) pg/mL 9159 H Total Protein (6.4-8.2) g/dL 7.1 Albumin (3.4-5.0) g/dL 3.1 L Procalcitonin ng/mL Urine Color (Yellow) Urine Clarity (Clear) Urine pH (5-8) Ur Specific [place] (1.005-1.025) Urine Protein (Neg-Trace) mg/dL Urine Ketones (Negative) mg/dL Urine Blood (Negative) Urine Nitrite (Negative) Urine Bilirubin (Negative) Urine Urobilinogen (Up to 0.2) mg/dL Ur Leukocyte Esterase (Negative) Urine RBC (0-2) HPF Urine WBC (0-5) HPF Ur Epithelial Cells (Negative) HPF Urine Crystals (Negative) HPF Urine Bacteria (Negative) HPF Urine Casts (Negative) LPF Urine Mucus (Negative) Ur Culture Indicated? Urine Glucose (Negative) mg/dL BAL Neutrophils BAL Lymphocytes BAL Eosinophils BAL Basophils BAL Monocyte/Macrophage BAL Path Comment Random Vancomycin ug/mL Gram Stain COVID-19 Source SARS-CoV-2 (PCR) (Negative) Influenza Type A (PCR) (Negative) Influenza Type B (PCR) (Negative) Urine Legionella Ag (Negative) M. pneumoniae Interp Mycoplasma pneumon IgG (Negative) Mycoplasma pneumon IgM (Negative) RSV (PCR) (Negative) MRSA (TEM-PCR) (Negative) Ur Strep pneumoniae Ag (Negative) TB Test Ag - Nil 1 IU/mL 0.00 TB Test Ag - Nil 2 IU/mL 0.00 TB Test (QFT) Interp (Negative) Negative Aerobic Culture Add-On Test Request Ref Test Specimen Type Ref Report Verification Range/Units 06/13/25 06/13/25 06/13/25 11:04 13:40 13:51 WBC (4.4-10.8) 10^3/uL RBC (4.36-5.78) 10^6/uL Hgb (13.5-17.5) g/dL Hct (40.0-50.0) % MCV (80-95) fL MCH (27.0-33.0) pg MCHC (32.0-36.0) % RDW (11.8-14.1) % Plt Count (130-400) 10^3/uL MPV (8.0-11.0) fL Immature Gran % % Neutrophils % % Lymphocytes % % Monocytes % % Eosinophils % % Basophils % % Nucleated RBC % (0.0-0.3) % Absolute Neutrophils (1.2-6.7) 10^3/uL Absolute Lymphocytes (1.2-3.4) 10^3/uL Absolute Monocytes (0.1-0.8) 10^3/uL Absolute Eosinophils (0.0-0.7) 10^3/uL Absolute Basophils (0.0-0.2) 10^3/uL RBC Morphology Microcytosis ABG Sample Site ABG pH ABG pCO2 ABG pO2 ABG HCO3 ABG Total CO2 ABG O2 Saturation ABG Base Excess VBG pH (7.31-7.41) VBG pCO2 (41-51) mmHg VBG pO2 mmHg VBG HCO3 (23-28) mmol/L VBG Total CO2 (24-29) mmol/L VBG O2 Saturation % VBG Base Excess (-2-3) mmol/L VBG Lactate (<or=2.0) mmol/L 4.0 H* Oxygen Liter Flow FiO2 Sodium (136-145) mmol/L Potassium (3.5-5.1) mmol/L Chloride (98-107) mmol/L Carbon Dioxide (21.0-32.0) mmol/L Anion Gap (3-11) mmol/L BUN (7-18) mg/dL Creatinine (0.70-1.30) mg/dL Est GFR (CKD-EPI 2020) (mL/min/1.73m2) Glucose (74-106) mg/dL Calcium (8.5-10.1) mg/dL Magnesium (1.8-2.4) mg/dL Iron (65-175) ug/dL TIBC (250-450) ug/dL Transferrin % Sat (20-55) % Total Bilirubin (0.2-1.0) mg/dL AST (15-37) U/L ALT (16-63) U/L Alkaline Phosphatase (46-116) U/L Troponin I (<or=76) ng/L 89 H* Cancelled NT-Pro-B Natriuret Pep (<300) pg/mL Total Protein (6.4-8.2) g/dL Albumin (3.4-5.0) g/dL Procalcitonin ng/mL Urine Color (Yellow) Urine Clarity (Clear) Urine pH (5-8) Ur Specific [place] (1.005-1.025) Urine Protein (Neg-Trace) mg/dL Urine Ketones (Negative) mg/dL Urine Blood (Negative) Urine Nitrite (Negative) Urine Bilirubin (Negative) Urine Urobilinogen (Up to 0.2) mg/dL Ur Leukocyte Esterase (Negative) Urine RBC (0-2) HPF Urine WBC (0-5) HPF Ur Epithelial Cells (Negative) HPF Urine Crystals (Negative) HPF Urine Bacteria (Negative) HPF Urine Casts (Negative) LPF Urine Mucus (Negative) Ur Culture Indicated? Urine Glucose (Negative) mg/dL BAL Neutrophils BAL Lymphocytes BAL Eosinophils BAL Basophils BAL Monocyte/Macrophage BAL Path Comment Random Vancomycin ug/mL Gram Stain COVID-19 Source Nasopharynx SARS-CoV-2 (PCR) (Negative) Negative Influenza Type A (PCR) (Negative) Negative Influenza Type B (PCR) (Negative) Negative Urine Legionella Ag (Negative) M. pneumoniae Interp Mycoplasma pneumon IgG (Negative) Mycoplasma pneumon IgM (Negative) RSV (PCR) (Negative) Negative MRSA (TEM-PCR) (Negative) Ur Strep pneumoniae Ag (Negative) TB Test Ag - Nil 1 IU/mL TB Test Ag - Nil 2 IU/mL TB Test (QFT) Interp (Negative) Aerobic Culture Add-On Test Request Ref Test Specimen Type Ref Report Verification Range/Units 06/13/25 06/14/25 06/14/25 17:50 00:34 03:33 WBC (4.4-10.8) 10^3/uL RBC (4.36-5.78) 10^6/uL Hgb (13.5-17.5) g/dL Hct (40.0-50.0) % MCV (80-95) fL MCH (27.0-33.0) pg MCHC (32.0-36.0) % RDW (11.8-14.1) % Plt Count (130-400) 10^3/uL MPV (8.0-11.0) fL Immature Gran % % Neutrophils % % Lymphocytes % % Monocytes % % Eosinophils % % Basophils % % Nucleated RBC % (0.0-0.3) % Absolute Neutrophils (1.2-6.7) 10^3/uL Absolute Lymphocytes (1.2-3.4) 10^3/uL Absolute Monocytes (0.1-0.8) 10^3/uL Absolute Eosinophils (0.0-0.7) 10^3/uL Absolute Basophils (0.0-0.2) 10^3/uL RBC Morphology Microcytosis ABG Sample Site Cancelled ABG pH Cancelled ABG pCO2 Cancelled ABG pO2 Cancelled ABG HCO3 Cancelled ABG Total CO2 Cancelled ABG O2 Saturation Cancelled ABG Base Excess Cancelled VBG pH (7.31-7.41) VBG pCO2 (41-51) mmHg VBG pO2 mmHg VBG HCO3 (23-28) mmol/L VBG Total CO2 (24-29) mmol/L VBG O2 Saturation % VBG Base Excess (-2-3) mmol/L VBG Lactate (<or=2.0) mmol/L 2.0 Oxygen Liter Flow Cancelled FiO2 Cancelled Sodium (136-145) mmol/L Potassium (3.5-5.1) mmol/L Chloride (98-107) mmol/L Carbon Dioxide (21.0-32.0) mmol/L Anion Gap (3-11) mmol/L BUN (7-18) mg/dL Creatinine (0.70-1.30) mg/dL Est GFR (CKD-EPI 2020) (mL/min/1.73m2) Glucose (74-106) mg/dL Calcium (8.5-10.1) mg/dL Magnesium (1.8-2.4) mg/dL Iron (65-175) ug/dL TIBC (250-450) ug/dL Transferrin % Sat (20-55) % Total Bilirubin (0.2-1.0) mg/dL AST (15-37) U/L ALT (16-63) U/L Alkaline Phosphatase (46-116) U/L Troponin I (<or=76) ng/L NT-Pro-B Natriuret Pep (<300) pg/mL Total Protein (6.4-8.2) g/dL Albumin (3.4-5.0) g/dL Procalcitonin ng/mL Urine Color (Yellow) Yellow Urine Clarity (Clear) Clear Urine pH (5-8) 6.0 Ur Specific [place] (1.005-1.025) 1.015 Urine Protein (Neg-Trace) mg/dL >=300 H Urine Ketones (Negative) mg/dL Negative Urine Blood (Negative) Trace-intact H Urine Nitrite (Negative) Negative Urine Bilirubin (Negative) Negative Urine Urobilinogen (Up to 0.2) mg/dL 0.2 Ur Leukocyte Esterase (Negative) Small H Urine RBC (0-2) HPF 3-5 H Urine WBC (0-5) HPF >50 H Ur Epithelial Cells (Negative) HPF Few Urine Crystals (Negative) HPF Negative Urine Bacteria (Negative) HPF Few Urine Casts (Negative) LPF Negative Urine Mucus (Negative) Negative Ur Culture Indicated? Yes Urine Glucose (Negative) mg/dL Negative BAL Neutrophils BAL Lymphocytes BAL Eosinophils BAL Basophils BAL Monocyte/Macrophage BAL Path Comment Random Vancomycin ug/mL Gram Stain COVID-19 Source SARS-CoV-2 (PCR) (Negative) Influenza Type A (PCR) (Negative) Influenza Type B (PCR) (Negative) Urine Legionella Ag (Negative) M. pneumoniae Interp Mycoplasma pneumon IgG (Negative) Mycoplasma pneumon IgM (Negative) RSV (PCR) (Negative) MRSA (TEM-PCR) (Negative) Ur Strep pneumoniae Ag (Negative) TB Test Ag - Nil 1 IU/mL TB Test Ag - Nil 2 IU/mL TB Test (QFT) Interp (Negative) Aerobic Culture Add-On Test Request Ref Test Specimen Type Ref Report Verification Range/Units 06/14/25 06/14/25 06/14/25 03:48 05:59 16:00 WBC (4.4-10.8) 10^3/uL 29.95 H* RBC (4.36-5.78) 10^6/uL 4.36 Hgb (13.5-17.5) g/dL 9.0 L Hct (40.0-50.0) % 29.8 L MCV (80-95) fL 68 L MCH (27.0-33.0) pg 20.6 L MCHC (32.0-36.0) % 30.2 L RDW (11.8-14.1) % 17.1 H Plt Count (130-400) 10^3/uL 410 H MPV (8.0-11.0) fL 10.2 Immature Gran % % 1.9 Neutrophils % % 84.4 Lymphocytes % % 6.9 Monocytes % % 6.3 Eosinophils % % 0.2 Basophils % % 0.3 Nucleated RBC % (0.0-0.3) % 0.1 Absolute Neutrophils (1.2-6.7) 10^3/uL 25.28 H Absolute Lymphocytes (1.2-3.4) 10^3/uL 2.07 Absolute Monocytes (0.1-0.8) 10^3/uL 1.89 H Absolute Eosinophils (0.0-0.7) 10^3/uL 0.06 Absolute Basophils (0.0-0.2) 10^3/uL 0.09 RBC Morphology See Below Microcytosis 2+ ABG Sample Site Right Radial ABG pH 7.35 ABG pCO2 36 ABG pO2 60 L ABG HCO3 20 L ABG Total CO2 19 L ABG O2 Saturation 89 L ABG Base Excess -6 L VBG pH (7.31-7.41) VBG pCO2 (41-51) mmHg VBG pO2 mmHg VBG HCO3 (23-28) mmol/L VBG Total CO2 (24-29) mmol/L VBG O2 Saturation % VBG Base Excess (-2-3) mmol/L VBG Lactate (<or=2.0) mmol/L Oxygen Liter Flow 15 FiO2 Sodium (136-145) mmol/L 136 Potassium (3.5-5.1) mmol/L 4.2 Chloride (98-107) mmol/L 101 Carbon Dioxide (21.0-32.0) mmol/L 22.4 Anion Gap (3-11) mmol/L 12.6 H BUN (7-18) mg/dL 44 H Creatinine (0.70-1.30) mg/dL 2.2 H Est GFR (CKD-EPI 2020) (mL/min/1.73m2) 31.05 Glucose (74-106) mg/dL 89 Calcium (8.5-10.1) mg/dL 8.8 Magnesium (1.8-2.4) mg/dL Iron (65-175) ug/dL TIBC (250-450) ug/dL Transferrin % Sat (20-55) % Total Bilirubin (0.2-1.0) mg/dL AST (15-37) U/L ALT (16-63) U/L Alkaline Phosphatase (46-116) U/L Troponin I (<or=76) ng/L NT-Pro-B Natriuret Pep (<300) pg/mL Total Protein (6.4-8.2) g/dL Albumin (3.4-5.0) g/dL Procalcitonin ng/mL Urine Color (Yellow) Urine Clarity (Clear) Urine pH (5-8) Ur Specific [place] (1.005-1.025) Urine Protein (Neg-Trace) mg/dL Urine Ketones (Negative) mg/dL Urine Blood (Negative) Urine Nitrite (Negative) Urine Bilirubin (Negative) Urine Urobilinogen (Up to 0.2) mg/dL Ur Leukocyte Esterase (Negative) Urine RBC (0-2) HPF Urine WBC (0-5) HPF Ur Epithelial Cells (Negative) HPF Urine Crystals (Negative) HPF Urine Bacteria (Negative) HPF Urine Casts (Negative) LPF Urine Mucus (Negative) Ur Culture Indicated? Urine Glucose (Negative) mg/dL BAL Neutrophils BAL Lymphocytes BAL Eosinophils BAL Basophils BAL Monocyte/Macrophage BAL Path Comment Random Vancomycin ug/mL Gram Stain COVID-19 Source SARS-CoV-2 (PCR) (Negative) Influenza Type A (PCR) (Negative) Influenza Type B (PCR) (Negative) Urine Legionella Ag (Negative) M. pneumoniae Interp Mycoplasma pneumon IgG (Negative) Mycoplasma pneumon IgM (Negative) RSV (PCR) (Negative) MRSA (TEM-PCR) (Negative) Positive A Ur Strep pneumoniae Ag (Negative) TB Test Ag - Nil 1 IU/mL TB Test Ag - Nil 2 IU/mL TB Test (QFT) Interp (Negative) Aerobic Culture Add-On Test Request Ref Test Specimen Type Ref Report Verification Range/Units 06/14/25 06/15/25 06/16/25 23:35 08:04 05:57 WBC (4.4-10.8) 10^3/uL 21.80 H 13.77 H RBC (4.36-5.78) 10^6/uL 4.31 L 4.14 L Hgb (13.5-17.5) g/dL 8.8 L 8.8 L Hct (40.0-50.0) % 28.4 L 27.4 L MCV (80-95) fL 66 L 66 L MCH (27.0-33.0) pg 20.4 L 21.3 L MCHC (32.0-36.0) % 31.0 L 32.1 RDW (11.8-14.1) % 16.7 H 16.9 H Plt Count (130-400) 10^3/uL 355 359 MPV (8.0-11.0) fL 9.9 10.2 Immature Gran % % 0.4 Neutrophils % % 94.5 Lymphocytes % % 3.2 Monocytes % % 1.9 Eosinophils % % 0.0 Basophils % % 0.0 Nucleated RBC % (0.0-0.3) % 0.7 H Absolute Neutrophils (1.2-6.7) 10^3/uL 13.01 H Absolute Lymphocytes (1.2-3.4) 10^3/uL 0.44 L Absolute Monocytes (0.1-0.8) 10^3/uL 0.26 Absolute Eosinophils (0.0-0.7) 10^3/uL 0.00 Absolute Basophils (0.0-0.2) 10^3/uL 0.00 RBC Morphology Microcytosis ABG Sample Site ABG pH ABG pCO2 ABG pO2 ABG HCO3 ABG Total CO2 ABG O2 Saturation ABG Base Excess VBG pH (7.31-7.41) 7.34 VBG pCO2 (41-51) mmHg 38 L VBG pO2 mmHg 83 VBG HCO3 (23-28) mmol/L 21 L VBG Total CO2 (24-29) mmol/L 20 L VBG O2 Saturation % 97 VBG Base Excess (-2-3) mmol/L -5 L VBG Lactate (<or=2.0) mmol/L 0.8 Oxygen Liter Flow FiO2 Sodium (136-145) mmol/L 135 L 135 L Potassium (3.5-5.1) mmol/L 4.3 3.6 Chloride (98-107) mmol/L 101 101 Carbon Dioxide (21.0-32.0) mmol/L 24.7 27.5 Anion Gap (3-11) mmol/L 9.3 6.5 BUN (7-18) mg/dL 58 H 67 H Creatinine (0.70-1.30) mg/dL 2.2 H 2.2 H Est GFR (CKD-EPI 2020) (mL/min/1.73m2) 31.05 31.05 Glucose (74-106) mg/dL 161 H 164 H Calcium (8.5-10.1) mg/dL 9.1 9.0 Magnesium (1.8-2.4) mg/dL Iron (65-175) ug/dL TIBC (250-450) ug/dL Transferrin % Sat (20-55) % Total Bilirubin (0.2-1.0) mg/dL 0.9 0.8 AST (15-37) U/L 27 17 ALT (16-63) U/L 15 L 18 Alkaline Phosphatase (46-116) U/L 77 71 Troponin I (<or=76) ng/L NT-Pro-B Natriuret Pep (<300) pg/mL Total Protein (6.4-8.2) g/dL 7.0 7.3 Albumin (3.4-5.0) g/dL 2.5 L 2.8 L Procalcitonin ng/mL 44.60 Urine Color (Yellow) Urine Clarity (Clear) Urine pH (5-8) Ur Specific [place] (1.005-1.025) Urine Protein (Neg-Trace) mg/dL Urine Ketones (Negative) mg/dL Urine Blood (Negative) Urine Nitrite (Negative) Urine Bilirubin (Negative) Urine Urobilinogen (Up to 0.2) mg/dL Ur Leukocyte Esterase (Negative) Urine RBC (0-2) HPF Urine WBC (0-5) HPF Ur Epithelial Cells (Negative) HPF Urine Crystals (Negative) HPF Urine Bacteria (Negative) HPF Urine Casts (Negative) LPF Urine Mucus (Negative) Ur Culture Indicated? Urine Glucose (Negative) mg/dL BAL Neutrophils BAL Lymphocytes BAL Eosinophils BAL Basophils BAL Monocyte/Macrophage BAL Path Comment Random Vancomycin ug/mL Gram Stain COVID-19 Source SARS-CoV-2 (PCR) (Negative) Influenza Type A (PCR) (Negative) Influenza Type B (PCR) (Negative) Urine Legionella Ag (Negative) M. pneumoniae Interp See Comment Mycoplasma pneumon IgG (Negative) Positive A Mycoplasma pneumon IgM (Negative) Reactive A RSV (PCR) (Negative) MRSA (TEM-PCR) (Negative) Ur Strep pneumoniae Ag (Negative) TB Test Ag - Nil 1 IU/mL TB Test Ag - Nil 2 IU/mL TB Test (QFT) Interp (Negative) Aerobic Culture Add-On Test Request Ref Test Specimen Type Ref Report Verification Range/Units 06/16/25 06/17/25 06/17/25 11:48 05:50 11:55 WBC (4.4-10.8) 10^3/uL 17.17 H RBC (4.36-5.78) 10^6/uL 4.22 L Hgb (13.5-17.5) g/dL 8.8 L Hct (40.0-50.0) % 27.1 L MCV (80-95) fL 64 L MCH (27.0-33.0) pg 20.9 L MCHC (32.0-36.0) % 32.5 RDW (11.8-14.1) % 16.9 H Plt Count (130-400) 10^3/uL 376 MPV (8.0-11.0) fL 9.9 Immature Gran % % 0.8 Neutrophils % % 88.4 Lymphocytes % % 6.3 Monocytes % % 4.4 Eosinophils % % 0.0 Basophils % % 0.1 Nucleated RBC % (0.0-0.3) % 0.4 H Absolute Neutrophils (1.2-6.7) 10^3/uL 15.18 H Absolute Lymphocytes (1.2-3.4) 10^3/uL 1.08 L Absolute Monocytes (0.1-0.8) 10^3/uL 0.76 Absolute Eosinophils (0.0-0.7) 10^3/uL 0.00 Absolute Basophils (0.0-0.2) 10^3/uL 0.02 RBC Morphology Microcytosis ABG Sample Site ABG pH ABG pCO2 ABG pO2 ABG HCO3 ABG Total CO2 ABG O2 Saturation ABG Base Excess VBG pH (7.31-7.41) VBG pCO2 (41-51) mmHg VBG pO2 mmHg VBG HCO3 (23-28) mmol/L VBG Total CO2 (24-29) mmol/L VBG O2 Saturation % VBG Base Excess (-2-3) mmol/L VBG Lactate (<or=2.0) mmol/L 1.0 Oxygen Liter Flow FiO2 Sodium (136-145) mmol/L 142 Potassium (3.5-5.1) mmol/L 3.0 L Chloride (98-107) mmol/L 102 Carbon Dioxide (21.0-32.0) mmol/L 29.8 Anion Gap (3-11) mmol/L 10.2 BUN (7-18) mg/dL 65 H Creatinine (0.70-1.30) mg/dL 1.7 H Est GFR (CKD-EPI 2020) (mL/min/1.73m2) 42.30 Glucose (74-106) mg/dL 126 H Calcium (8.5-10.1) mg/dL 9.0 Magnesium (1.8-2.4) mg/dL 2.1 Iron (65-175) ug/dL 48 L TIBC (250-450) ug/dL 163 L Transferrin % Sat (20-55) % 29 Total Bilirubin (0.2-1.0) mg/dL 0.8 AST (15-37) U/L 12 L ALT (16-63) U/L 19 Alkaline Phosphatase (46-116) U/L 66 Troponin I (<or=76) ng/L NT-Pro-B Natriuret Pep (<300) pg/mL Total Protein (6.4-8.2) g/dL 7.0 Albumin (3.4-5.0) g/dL 2.7 L Procalcitonin ng/mL Urine Color (Yellow) Urine Clarity (Clear) Urine pH (5-8) Ur Specific [place] (1.005-1.025) Urine Protein (Neg-Trace) mg/dL Urine Ketones (Negative) mg/dL Urine Blood (Negative) Urine Nitrite (Negative) Urine Bilirubin (Negative) Urine Urobilinogen (Up to 0.2) mg/dL Ur Leukocyte Esterase (Negative) Urine RBC (0-2) HPF Urine WBC (0-5) HPF Ur Epithelial Cells (Negative) HPF Urine Crystals (Negative) HPF Urine Bacteria (Negative) HPF Urine Casts (Negative) LPF Urine Mucus (Negative) Ur Culture Indicated? Urine Glucose (Negative) mg/dL BAL Neutrophils Not Applicable BAL Lymphocytes Not Applicable BAL Eosinophils Not Applicable BAL Basophils Not Applicable BAL Monocyte/Macrophage Not Applicable BAL Path Comment See Comment Random Vancomycin ug/mL Gram Stain No Neutrophils Seen COVID-19 Source SARS-CoV-2 (PCR) (Negative) Influenza Type A (PCR) (Negative) Influenza Type B (PCR) (Negative) Urine Legionella Ag (Negative) Positive A M. pneumoniae Interp Mycoplasma pneumon IgG (Negative) Mycoplasma pneumon IgM (Negative) RSV (PCR) (Negative) MRSA (TEM-PCR) (Negative) Ur Strep pneumoniae Ag (Negative) Negative TB Test Ag - Nil 1 IU/mL TB Test Ag - Nil 2 IU/mL TB Test (QFT) Interp (Negative) Aerobic Culture SEE BELOW Add-On Test Request Ref Test Specimen Type Not Applicable Ref Report Verification Not Applicable Range/Units 06/17/25 06/18/25 06/19/25 12:32 06:00 06:50 WBC (4.4-10.8) 10^3/uL 14.79 H RBC (4.36-5.78) 10^6/uL 4.18 L Hgb (13.5-17.5) g/dL 8.8 L Hct (40.0-50.0) % 27.0 L MCV (80-95) fL 65 L MCH (27.0-33.0) pg 21.1 L MCHC (32.0-36.0) % 32.6 RDW (11.8-14.1) % 16.9 H Plt Count (130-400) 10^3/uL 380 MPV (8.0-11.0) fL 10.0 Immature Gran % % 0.9 Neutrophils % % 79.5 Lymphocytes % % 12.2 Monocytes % % 6.5 Eosinophils % % 0.8 Basophils % % 0.1 Nucleated RBC % (0.0-0.3) % 0.2 Absolute Neutrophils (1.2-6.7) 10^3/uL 11.76 H Absolute Lymphocytes (1.2-3.4) 10^3/uL 1.80 Absolute Monocytes (0.1-0.8) 10^3/uL 0.96 H Absolute Eosinophils (0.0-0.7) 10^3/uL 0.12 Absolute Basophils (0.0-0.2) 10^3/uL 0.01 RBC Morphology Microcytosis ABG Sample Site ABG pH ABG pCO2 ABG pO2 ABG HCO3 ABG Total CO2 ABG O2 Saturation ABG Base Excess VBG pH (7.31-7.41) VBG pCO2 (41-51) mmHg VBG pO2 mmHg VBG HCO3 (23-28) mmol/L VBG Total CO2 (24-29) mmol/L VBG O2 Saturation % VBG Base Excess (-2-3) mmol/L VBG Lactate (<or=2.0) mmol/L 1.0 Oxygen Liter Flow FiO2 Sodium (136-145) mmol/L 140 138 Potassium (3.5-5.1) mmol/L 3.2 L 4.2 D Chloride (98-107) mmol/L 102 104 Carbon Dioxide (21.0-32.0) mmol/L 27.6 26.1 Anion Gap (3-11) mmol/L 10.4 7.9 BUN (7-18) mg/dL 54 H 52 H Creatinine (0.70-1.30) mg/dL 1.7 H 1.7 H Est GFR (CKD-EPI 2020) (mL/min/1.73m2) 42.30 42.30 Glucose (74-106) mg/dL 121 H 96 Calcium (8.5-10.1) mg/dL 8.7 9.0 Magnesium (1.8-2.4) mg/dL 1.9 Iron (65-175) ug/dL TIBC (250-450) ug/dL Transferrin % Sat (20-55) % Total Bilirubin (0.2-1.0) mg/dL 0.9 AST (15-37) U/L 10 L ALT (16-63) U/L 17 Alkaline Phosphatase (46-116) U/L 62 Troponin I (<or=76) ng/L NT-Pro-B Natriuret Pep (<300) pg/mL Total Protein (6.4-8.2) g/dL 6.6 Albumin (3.4-5.0) g/dL 2.6 L Procalcitonin ng/mL Urine Color (Yellow) Urine Clarity (Clear) Urine pH (5-8) Ur Specific [place] (1.005-1.025) Urine Protein (Neg-Trace) mg/dL Urine Ketones (Negative) mg/dL Urine Blood (Negative) Urine Nitrite (Negative) Urine Bilirubin (Negative) Urine Urobilinogen (Up to 0.2) mg/dL Ur Leukocyte Esterase (Negative) Urine RBC (0-2) HPF Urine WBC (0-5) HPF Ur Epithelial Cells (Negative) HPF Urine Crystals (Negative) HPF Urine Bacteria (Negative) HPF Urine Casts (Negative) LPF Urine Mucus (Negative) Ur Culture Indicated? Urine Glucose (Negative) mg/dL BAL Neutrophils BAL Lymphocytes BAL Eosinophils BAL Basophils BAL Monocyte/Macrophage BAL Path Comment Random Vancomycin ug/mL 9.5 Gram Stain COVID-19 Source SARS-CoV-2 (PCR) (Negative) Influenza Type A (PCR) (Negative) Influenza Type B (PCR) (Negative) Urine Legionella Ag (Negative) M. pneumoniae Interp Mycoplasma pneumon IgG (Negative) Mycoplasma pneumon IgM (Negative) RSV (PCR) (Negative) MRSA (TEM-PCR) (Negative) Ur Strep pneumoniae Ag (Negative) TB Test Ag - Nil 1 IU/mL TB Test Ag - Nil 2 IU/mL TB Test (QFT) Interp (Negative) Aerobic Culture Add-On Test Request DONE Ref Test Specimen Type Ref Report Verification Imaging Chest x-ray: report reviewed and image reviewed
[2025-06-19] MEDS: Docusate Sodium 100 MG/10 ML CUP PO ×2 (09:36→17:36)
[2025-06-19] MEDS: Venlafaxine 75 MG CAPCR PO (09:36)
[2025-06-19] MEDS: Apixaban 5 MG TAB PO ×2 (09:36→20:22)
[2025-06-19] MEDS: Furosemide 40 MG/4 ML VIAL IVP (09:36)
[2025-06-19] MEDS: Carvedilol 25 MG TAB PO ×2 (09:37→20:22)
[2025-06-19] MEDS: Nicotine 21 MG/24 HR PATCH TD (09:37)
[2025-06-19] MEDS: guaiFENesin 600 MG TABCR PO ×2 (09:37→20:22)
[2025-06-19] MEDS: Lisinopril 2.5 MG TAB PO (09:37)
[2025-06-19] MEDS: predniSONE 20 MG TAB 40 MG PO (09:38)
[2025-06-19] MEDS: Pantoprazole 40 MG TABCR PO (09:38)
[2025-06-19] MEDS: VANCOMYCIN/WATER (PEG) 1 GM/200 ML BAG IVPB (10:17)
[2025-06-19] MEDS: AZITHROMYCIN 250 MG in Normal Saline 250 ML IVPB (10:17)
--- NOTE | 2025-06-19 11:38 | PT.INTREAT ---
PT Notes Visit Reasons: Severe Sepsis, Hypoxic Resp Fail Pneumonia,CHF Exa Date: 06/19/2025 PRECAUTIONS: Activity as tolerated. Fall. Droplet and contact precautions. SUBJECTIVE: Pt in hooklying in bed when approached for therapy this morning, pt reports he would like to use the bedside commode. Pt in recliner when approached for terapy this afternoon, agreed to participate with therapy session. OBJECTIVE: Telemetry monitoring in place.? IV access through the RUE. ? PAIN: He reported pain in left anteriolateral hip with transition sit to/from stand and with ambulation VITALS: ?Oxygen saturation ranged from 92-95% throughout session on RA HR from 100-115 bpm during session ? BED MOBILITY/TRANSFERS?:? Supine to EOB: SBA ?Sit-stand: SBA with FWW?and increased time d/t pain left hip?x 3 trials ?Stand-sit: SBA with FWW? Bed-commode: Stand pivot transfer SBA with FWW ? Commode to recliner: SBA ?with FWW? GAIT? Assistive Device: FWW? Weight bearing: FWB Assist: Contact guard assist ? Distance:? 10 steps x2(am) ?10 steps?x2(pm)? Deviation: Decreased gait speed. low step height and short length, stoop forward posture, WBOS STAIRS: Not done due to current precuations ? THERA EX: Supine heel slides [id number] Supine clamshells [id number] Ankle pumping [id number] Supine quad and glute sets [id number] seated PF/DF x 10 R/L seated LAQ 2 sets 5 reps R/L seated marching 5 reps ASSESSMENT:? pt in negative pressure room, SOB with activity, pain with transition, DBE to help with SOB, unproductive cough accompanied by pain on diaphragm, pt cue with abdominal bracing during coughing to help manage pain on diaphragm. PLAN: 1-2x/day, 7 days/week x 1 week. TREATMENT CODE/TIME: 14061l9, 12628a3, 23680h2 35mins (11:15-11:50am), 61001n3 20mins (1:40-2:00pm) DISCHARGE RECOMMENDATION: Return to SNF with continued PT to return to prior level of independence when medically stable
--- NOTE | 2025-06-19 12:20 | CMPROGNOTE_ITS ---
Date of service: 06/19/25 Time of Service: 12:20 Care Management Progress Note Progress Note Text Progress Note Text: Elroy was sitting up on the side of the bed eating dinner when CM met with him. He was, as usual, very pleasant and engaged during the interaction. Elroy was moved out of the ICU today. He is still on precautions for both the MRSA and to rule out TB. Although the original TB tests resulted negative, new specimens were obtained during the bronchoscopy and have been sent out for fungal and TB testing. Elroy is no longer requiring supplemental oxygen and is saturating at 94% on room air. he reported that he is still having pain from the bronchoscopy but that it is improving. Discharge Potential Discharge Needs: PT Evaluation Anticipated Barriers to Discharge: Medical Status Patient/Family Education Needs: Review discharge instructions, discuss Ask Me Three Transportation: [facility] Plan: Anticipate Elroy will be transferred back to [facility] when medically cleared. He will follow up with his facility providers and plan of care and transport via [facility]. CM will continue to support discharge planning. Social Determinants of Health Screening Will the Patient Participate in the Screening?: Declined to provide Do you worry about having a steady place to live?: no In the past 12 months, have you had to go without electric, gas, oil or water in your home?: no Comments: lives in a rehab facility
[2025-06-19 15:22] LABS: M. pneumoniae Ab, IgM by IFA Negative (Negative)
--- NOTE | 2025-06-19 18:57 | PGE_ITS ---
Date of Service Date of service: 06/19/25 Time of Service: 18:57 Assessment and Plan Assessment and plan (1) Pneumonia: Status: Acute Assessment and plan: RUL on admission CT, associated with severe sepsis physiology Started on azithromycin and cefepime MRSA swab positive 06/15, but was improving so MRSA coverage not added. Lactate levels normalized 06/17 with increased WBC and focal consolidation, vancomycin added. With poor dentition cefepime changed to pip/tazo to cover anearobes after d/w Dr. Swain. Regimen then Vanco/zosyn/azithro Persistent on 06/16 CXR with concern for increased consolidation, per pulm more c/w consolidation than empyema. Bronchoscopy done 06/17 with cultures from washings pending, including AFB Strep pneumo Ag and quantiferon negative. Mycoplasma also positive - unclear if active pathogen but azithro does cover this. 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 BNP >9000 double his previous on admission, but required fairly aggressive fluid resuscitation with sepsis. Started IV furosemide 06/15 ~3 liters negative fluid balance 06/16-, then stabilized as furosemide back to daily, change to home torsemide 20mg 06/20 SGLT2i indicated prior to discharge with CKD and CHF (3) Acute exacerbation of chronic obstructive pulmonary disease: Status: Acute Assessment and plan: changed to oral prednisone, w/taper planned abx as above continue albuterol, duoneb may benefit from PO morphine for dyspnea, consider outpatient hypoxic resp failure resolved, stable on RA (4) Acute kidney injury superimposed on stage 3a chronic kidney disease: Status: Acute Assessment and plan: creatinine baseline 1.3-1.6 up to 2.2, now 1.7, stable (5) Atrial fibrillation: Status: Chronic Assessment and plan: Hx of on carvedilol and apixaban Outpatient cardiology consult requested on 05/03/25 not completed rate controlled, but carvedilol should be BID, changed 06/17. Some Afib off/on, had heart block when given additional diltiazem 06/18, so will just monitor for now. Expect improvement in rate as illness treated. (6) Steroid dependence: Status: Chronic Assessment and plan: On methyprednisolone, BP not low so will not change to hydrocortisone. To prednisone 06/18, will need slow taper as above (7) History of tobacco use: Assessment and plan: NRT (8) Presence of stent in coronary artery in patient with coronary artery diseas e: Status: Chronic Assessment and plan: Hx of stent in 2019, now on apixaban only as concurrent A-fib Troponin 61, 79. 89 on 06/13, not followed since. Related to sepsis, not ACS will repeat PRN if cardiac symptoms (9) Anemia, chronic disease: Status: Acute Assessment and plan: Iron levels repeated, normal transferrin saturation >20%. Iron supplementation won't help. C/w anemia chronic disease/CKD. Very low MCV, but history of normal hgb electrophoresis, no thalasemmia minor. may benefit from EPO chronically as outpatient. NO change Subjective Subjective Patient reports: tolerating a regular diet and voiding w/o difficulty; denies nausea, vomiting or fever Interval history since last seen: Events: Called from state re: legionella, they agree with this diagnosis. They do want 3 AFB smears 8 hours apart. In/out of afib today He felt a little more tired, SOB this morning, but feels better this evening. He is having small loose stools. He is having a hard time making sputum for AFB. Exam Narrative Exam Narrative: General: alert, no acute distress CV: normal rate, regular rhythm Respiratory: good air movement, normal effort GI: abd soft, mild epigastric tenderness, non-distended Extremities: trace bilataral pedal edema, no digital clubbing, warm Objective Last Vital Signs Temp 36.9 C 06/19/25 15:05 Pulse 84 06/19/25 15:05 Resp 16 06/19/25 15:05 BP 143/63 H 06/19/25 15:05 Pulse Ox 94 06/19/25 15:05 Laboratory Results - last 24 hr 06/16/25 06/17/25 06/19/25 05:57 11:55 06:50 Sodium 138 Potassium 4.2 D Chloride 104 Carbon Dioxide 26.1 Anion Gap 7.9 BUN 52 H Creatinine 1.7 H Est GFR (CKD-EPI 2020) 42.30 Glucose 96 Calcium 9.0 Magnesium 1.9 Gram Stain No Neutrophils Seen M.pneumoniae IgM (IFA) Negative Aerobic Culture SEE BELOW Ref Test Specimen Type Not Applicable Ref Report Verification Not Applicable PAWSS Have you Been Recently Intoxicated or Drunk Within the Last 30 days?: No Have you Ever Experienced Previous Episodes of Alcohol Withdrawal?: No Have you ever Experienced Withdrawal Seizures?: No Have you ever Experienced Delirium Tremens(DT)s?: No Have you ever undergone Alcohol Rehabilitation Treatment (i.e, inpt ot outpatient treatment programs)?: No Have you ever Experienced Blackouts?: No Have you ever Combined Alcohol with other Downers within the last 90 days?: No Have you ever Combined Alcohol with any other Substance of Abuse during the last 90 days?: No Positive Blood Alcohol level on Presentation? [PCS.BAL]: No Evidence of Increased Autonomic Activity (i.e. HR>120, tremor, sweating, agitation, nausea)?: No Result: 0 Time Spent with Patient Time Spent with Patient: 35-49 minutes Time was spent: preparing to see the patient(eg.review tests), obtaining and/or reviewing separately otained hiistory, ordering medications,tests, procedures, referring, communicating with other health field care manager, indepentently interpreting results, counseling the patient and care coordination
[2025-06-20] MEDS: PIPERACILLIN/TAZO 3.375 GM in Normal Saline 50 ML IVPB ×3 (01:32→15:42)
[2025-06-20 05:26] VITALS: BP 145/68; PULSE 68; RESP 18; TEMP 36.4; O2SAT 96
--- NOTE | 2025-06-20 07:00 | DI.RAD_ITS ---
Exam(s) XR PORTABLE CHEST AP EXAM: XR PORTABLE CHEST AP CLINICAL HISTORY: pneumonia. TECHNIQUE: 2D digital imaging was performed. COMPARISON: CT CT CHEST W from 06/13/2025 CR XR CHEST 2V PA LATERAL from 06/16/2025 CR XR PORTABLE CHEST AP from 06/18/2025 FINDINGS: Single AP portable view. Heart size unchanged. Mediastinum unchanged There is no radiographic improvement in the large right upper lobe infiltrate. No obvious cavitation. There is no associated pleural effusion. The opposite-left lung remains clear. IMPRESSION: There is no radiographic improvement in the large right upper lobe infiltrate. DATA REPOSITORY: RADIATION DOSE DELIVERED:
[2025-06-20] MEDS: Ipratropium/Albuterol 4 GM 120 PUFF INH IH ×4 (07:37→19:57)
[2025-06-20 07:38] VITALS: O2SAT 91
[2025-06-20 07:39] LABS: HCT 26.9 % (40.0-50.0); HGB 8.5 g/dL (13.5-17.5); MCH 20.6 pg (27.0-33.0); MCHC 31.6 % (32.0-36.0); MCV 65 fL (80-95); MPV 9.9 fL (8.0-11.0); Platelet Count 491 10^3/uL (130-400); RBC 4.12 10^6/uL (4.36-5.78); RDW 17.6 % (11.8-14.1); RDW-SD 39.4 fL; WBC 17.98 10^3/uL (4.4-10.8)
[2025-06-20 08:01] LABS: Anion Gap 8.3 mmol/L (3-11); BUN 48 mg/dL (7-18); CO2 25.7 mmol/L (21.0-32.0); Calcium 8.7 mg/dL (8.5-10.1); Chloride 106 mmol/L (98-107); Estimated GFR 42.30 (mL/min/1.73m2); Glucose 112 mg/dL (74-106); Potassium 3.5 mmol/L (3.5-5.1); Sodium 140 mmol/L (136-145)
[2025-06-20 08:10] VITALS: BP 134/58; PULSE 70; RESP 16; TEMP 36.9; O2SAT 91
[2025-06-20] MEDS: Normal Saline Flush 10 ML SYR IVP ×2 (08:30→19:59)
--- NOTE | 2025-06-20 08:56 | PT.INTREAT ---
PT Notes Visit Reasons: Severe Sepsis, Hypoxic Resp Fail Pneumonia,CHF Exa Date: 06/20/2025 PRECAUTIONS: Activity as tolerated. Fall. Droplet and contact precautions. SUBJECTIVE: Pt in bed when approached for therapy this morning, pt alert and is breathing well this morning, agrees to participating with therapy, request to use the toilet first. in bed when approached for therapy this afternoon, agreed to participating wit therapy session. OBJECTIVE: Telemetry monitoring in place.? IV access through the RUE. ? PAIN: He reported pain in left anteriolateral hip with transition sit to/from stand and with ambulation VITALS: ?Oxygen saturation ranged from 94-96% throughout session on RA HR from 90-95 bpm during session ? BED MOBILITY/TRANSFERS?:? Supine to EOB: Supervision ?Sit-stand: Supervision ? Stand-sit: Supervision ? Bed-toilet: Supervision ? Commode to recliner: Supervision GAIT? Assistive Device: FWW? Weight bearing: FWB Assist: supervision? Distance:? 20 steps x2(am) ?10 steps?x2(pm)? Deviation: Decreased gait speed. low step height and short length, stoop forward posture, WBOS STAIRS: Not done due to current precuations ? THERA EX: Modified lukas stretch Hooklying glute sets Supine quad sets Supine clamshells Supine lateral hip fallouts ASSESSMENT:? pt in negative pressure room, SOB with activity has improved compared to yesterday, pain with bed mobility during transfers has decreased, DBE to help with SOB, has bee using incentive spyrometer, reminders to brace abdomen during coughing to avoid diaphragmatic pain. PLAN: 1-2x/day, 7 days/week x 1 week. TREATMENT CODE/TIME: 07812v5, 02982l8, 32305w8 30mins (8:40-9:10am), 72847p8 20mins (3:00-3:20pm) DISCHARGE RECOMMENDATION: Return to SNF with continued PT to return to prior level of independence when medically stable
[2025-06-20] MEDS: Carvedilol 25 MG TAB PO ×2 (09:24→19:56)
[2025-06-20] MEDS: Venlafaxine 75 MG CAPCR PO (09:24)
[2025-06-20] MEDS: Pantoprazole 40 MG TABCR PO (09:24)
[2025-06-20] MEDS: Lisinopril 2.5 MG TAB PO (09:24)
[2025-06-20] MEDS: Apixaban 5 MG TAB PO ×2 (09:24→19:56)
[2025-06-20] MEDS: Torsemide 20 MG TAB PO (09:24)
[2025-06-20] MEDS: predniSONE 20 MG TAB 40 MG PO (09:24)
[2025-06-20] MEDS: guaiFENesin 600 MG TABCR PO ×2 (09:24→19:56)
[2025-06-20] MEDS: Nicotine 21 MG/24 HR PATCH TD (09:25)
[2025-06-20] MEDS: AZITHROMYCIN 250 MG in Normal Saline 250 ML IVPB (09:25)
[2025-06-20] MEDS: dilTIAZem 30 MG TAB PO ×3 (09:25→19:56)
--- NOTE | 2025-06-20 10:37 | CMPROGNOTE_ITS ---
Date of service: 06/20/25 Time of Service: 10:37 Care Management Progress Note Progress Note Text Progress Note Text: Elroy was sitting up in bed when CM met with him. He appeared to be in good spirits and easily engaged with CM. Elroy continues to improve medically. He has been off supplemental oxygen for several days and is less short of breath. He informed CM that he is still feeling some discomfort following the bronchospy but that it is improving. He reported that the health department informed the provider that he would need to remain in the hospital until the AFB test on the BAL specimen has been completed. As the test was sent to a reference lab, it may take some time for results to be available. Elroy expressed concern about his social security check. He thought he hadn't received it this month. Through discussion, Elroy realized that he isn't due to receive it until the 02 of July. He receives his food subsidy on the first of the month and confused the 2. He laughed about the confusion but noted how easy it is to lose track of days and dates when you are ill and hoospitalized. Discharge Potential Discharge Needs: PCP F/U Appt Anticipated Barriers to Discharge: Medical Status Patient/Family Education Needs: Review discharge instructions, discuss Ask Me Three Transportation: Private vehicle Plan: Anticipate Elroy will be transferred back to [facility] when medically cleared. He will follow up with his facility providers and plan of care and transport via [facility]. CM will continue to support discharge planning. Social Determinants of Health Screening Will the Patient Participate in the Screening?: Declined to provide Do you worry about having a steady place to live?: no In the past 12 months, have you had to go without electric, gas, oil or water in your home?: no Comments: lives in a rehab facility
--- NOTE | 2025-06-20 12:35 | W.PALPGNOTE ---
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 He is feeling better today. He remains SOB with any activity. He feels better today than he did yesterday. (2) Acute exacerbation of CHF (congestive heart failure): Status: Acute Assessment and plan: Back on home torsemide. (3) Acute exacerbation of chronic obstructive pulmonary disease: Status: Acute (4) Acute kidney injury superimposed on stage 3a chronic kidney disease: Status: Acute Assessment and plan: Improved. (5) Atrial fibrillation: Status: Chronic Assessment and plan: Afib off/on, had heart block when given additional diltiazem 06/18, so will just monitor for now. Expect improvement in rate as illness treated. (6) Steroid dependence: Status: Chronic Assessment and plan: On prednisone, slow taper. (7) History of tobacco use: Assessment and plan: NRT (8) Presence of stent in coronary artery in patient with coronary artery disease: Status: Chronic Assessment and plan: Hx of stent in 2019, now on apixaban only as concurrent A-fib (9) Anemia, chronic disease: Status: Acute (10) Palliative care patient: Status: Acute Assessment and plan: He is followed by Palliative care. Outpatient visit previously scheduled [facility] 07/24/25. He is feeling better today. TB testing still pending. He will return to the rehab when he is discharged. Palliative to continue to follow. If he remains inpatient next week, Palliative can see him, otherwise, outpatient f/u is already scheduled. Subjective Subjective Interval history since last seen: Elroy was seen for Palliative f/u. He has been seen in the past for Palliative care by Dr. Chapa and Ange Carnes NP. He was seen today for Palliative f/u/continuity of care. He also reports that he was previously on hospice but revoked to go to the ED. He reports that he has been sick for months. He is feeling better than he was yesterday. He remains weak and SOB. He is very SOB with exertion. He has been getting out of bed and ambulating to the toilet. He plans to ask for a nebulizer treatment. He denies pain except feeling sore from bronchoscopy. He reports that this is improving. Reviewed support people. He names his brother, Everton, who is also his HCA and his former neighbor, Armida. Armida picks things up for him at the store and brings it to [employer]. He is doing okay at the rehab but does not like the food. He lost his less than 1 year ago (09/2024) and recently lost his home to [facility]. His plan is to remain at the rehab. Exam Narrative Exam Narrative: General: older, chronically ill appearing male, sitting up at the edge of his bed, eating lunch. He is awake, alert, able to engage in the visit and answer questions appropriately. He does not appear to be in distress. HEENT: normocephalic, atraumatic, hearing grossly WNL, MMM Resp: respirations appear even and unlabored at rest. He is able to speak in sentences without difficulty. Ext: moves all 4 extremities freely. Psych: cooperative, pleasant; thought process WNL; insight/judgment fair to good Objective Last Vital Signs Temp 36.9 C 06/20/25 08:10 Pulse 70 06/20/25 08:10 Resp 16 06/20/25 08:10 BP 134/58 L 06/20/25 08:10 Pulse Ox 91 L 06/20/25 08:10 Laboratory Results - last 24 hr 06/16/25 06/20/25 05:57 07:00 WBC 17.98 H RBC 4.12 L Hgb 8.5 L Hct 26.9 L MCV 65 L MCH 20.6 L MCHC 31.6 L RDW 17.6 H Plt Count 491 H MPV 9.9 Sodium 140 Potassium 3.5 Chloride 106 Carbon Dioxide 25.7 Anion Gap 8.3 BUN 48 H Creatinine 1.7 H Est GFR (CKD-EPI 2020) 42.30 Glucose 112 H Calcium 8.7 M.pneumoniae IgM (IFA) Negative
[2025-06-20] MEDS: Albuterol HFA 8 GM 60 PUFF INH IH (15:46)
--- NOTE | 2025-06-20 15:46 | W.PM.PROGNOT ---
Date of Service Date of service: 06/20/25 Time of Service: 15:47 Assessment and Plan Assessment and plan (1) Pneumonia: Status: Acute Assessment and plan: RUL on admission CT, associated with severe sepsis physiology Bronchoscopy done 06/17 with cultures from washings pending, including AFB Legionella Ag positive, most likely the pathologic organism MRSA nares, but none on BAL culture mycoplasma serologies positive but confirmatory test negative. Risk for TB and anearobes, he will remain on pip/tazo and azithro and respiratory precautions. Initial guidance from was three AFB smears, but after discussion with Dr. Swain he and I both feel comfortable this is not TB as long as AFB from BAL negative, which is still pending. Continues to slowly improve clinically, though WBC up today. No change in CXR. Consider repeat CT if WBC continues up or clinically worsens. (2) Acute exacerbation of CHF (congestive heart failure): Status: Acute Assessment and plan: Back on home torsemide, fluid status appears stable. (3) Acute exacerbation of chronic obstructive pulmonary disease: Status: Acute Assessment and plan: Stable on prednisone, chronic inhalers, nebs PRN. Will need slow taper given chronic prednisolone use (admission dose 10mg). (4) Acute kidney injury superimposed on stage 3a chronic kidney disease: Status: Acute Assessment and plan: Improved. (5) Atrial fibrillation: Status: Chronic Assessment and plan: Afib/flutter off/on, rates are coming down. Expect improvement in rate as illness treated. (6) History of tobacco use: Assessment and plan: NRT (7) Anemia, chronic disease: Status: Acute Assessment and plan: stable confirmed tranferrin saturation >20% though iron low, c/w chronic disease/CKD. H/o normal electrophoresis (no thalasemmia) EPO candidate (8) Palliative care patient: Status: Acute Assessment and plan: He is followed by Palliative care, seeing inpatient as well. He will return to the rehab when he is discharged, need to clear from TB first. Subjective Subjective Patient reports: tolerating a regular diet and voiding w/o difficulty; denies diarrhea, nausea, vomiting or fever Interval history since last seen: Events: Ordered additional AFB per state Feeling better. Has a cough but minimal sputum, has only made one sample for AFP. Feels more energy today. Has been up in room. Breathing improving. Exam Narrative Exam Narrative: General: alert, no acute distress CV: normal rate, regular rhythm, no m/g Respiratory: CTAB, good air movement, normal effort GI: abd soft, no tenderness, non-distended Extremities: trace bilataral pedal edema, no digital clubbing, warm Objective Last Vital Signs Temp 36.9 C 06/20/25 08:10 Pulse 70 06/20/25 08:10 Resp 16 06/20/25 08:10 BP 134/58 L 06/20/25 08:10 Pulse Ox 91 L 06/20/25 08:10 Laboratory Results - last 24 hr 06/16/25 06/20/25 05:57 07:00 WBC 17.98 H RBC 4.12 L Hgb 8.5 L Hct 26.9 L MCV 65 L MCH 20.6 L MCHC 31.6 L RDW 17.6 H Plt Count 491 H MPV 9.9 Sodium 140 Potassium 3.5 Chloride 106 Carbon Dioxide 25.7 Anion Gap 8.3 BUN 48 H Creatinine 1.7 H Est GFR (CKD-EPI 2020) 42.30 Glucose 112 H Calcium 8.7 M.pneumoniae IgM (IFA) Negative PAWSS Have you Been Recently Intoxicated or Drunk Within the Last 30 days?: No Have you Ever Experienced Previous Episodes of Alcohol Withdrawal?: No Have you ever Experienced Withdrawal Seizures?: No Have you ever Experienced Delirium Tremens(DT)s?: No Have you ever undergone Alcohol Rehabilitation Treatment (i.e, inpt ot outpatient treatment programs)?: No Have you ever Experienced Blackouts?: No Have you ever Combined Alcohol with other Downers within the last 90 days?: No Have you ever Combined Alcohol with any other Substance of Abuse during the last 90 days?: No Positive Blood Alcohol level on Presentation? [PCS.BAL]: No Evidence of Increased Autonomic Activity (i.e. HR>120, tremor, sweating, agitation, nausea)?: No Result: 0 Time Spent with Patient Time Spent with Patient: 35-49 minutes Time was spent: preparing to see the patient(eg.review tests), obtaining and/or reviewing separately otained hiistory, ordering medications,tests, procedures, referring, communicating with other health career center director, indepentently interpreting results, counseling the patient and care coordination
[2025-06-20 15:52] VITALS: BP 128/79; PULSE 71; RESP 18; TEMP 36.5; O2SAT 94
[2025-06-20 19:00] VITALS: BP 118/71; PULSE 71; RESP 20; TEMP 36.9; O2SAT 92
--- NOTE | 2025-06-21 | DI.CT_ITS ---
Exam(s) CT CHEST W EXAM: CT CHEST W CLINICAL HISTORY: large RUL pneumonia, increasing WBC. Abscess? TECHNIQUE: Imaging Protocol: Axial computed tomography images with coronal and sagittal reformatted images were created and reviewed. Computer aided detection (CAD) was utilized. CONTRAST MATERIAL: Intravenous: Omnipaque 350Contrast volume:70 mL. COMPARISON: CT CT chest PE abd pelvis w from 01/07/[address] CHEST LUNG CANCER SCREEN from 08/27/[address] CHEST W from 06/13/2025 CR XR PORTABLE CHEST AP from 06/20/2025 FINDINGS: Tracheobronchial tree: Patent where visualized. No evidence of bronchiectasis. Pulmonary parenchyma: There is again seen a right upper lobe pneumonia. There is a persistent area of consolidation abutting the pleural surface. There are air bronchograms seen within the consolidation. Normal pulmonary vessels are seen coursing through the consolidation. No wall enhancing fluid collection is seen to suggest an abscess at this time. Pockets of air are again seen within the consolidation which do not appear to represent airways. These have improved/decreased in number compared to the prior examination. There is a new small right pleural effusion layering posteriorly. There is no capsule to suggest an empyema or abscess. The partially calcified lesion in the anterior aspect of the right upper lobe is unchanged dating back to 2019. There are no new infiltrates present. There is again seen a small infiltrate in the periphery of the right lower lobe. The left lung is clear. Mediastinum and Oralia: There are stable mildly enlarged lymph nodes in the mediastinum which are likely reactive. The esophagus is unremarkable. Thyroid gland: Unremarkable. Pleura: There is no pneumothorax. There is no left pleural effusion. Heart: The heart is not dilated. Three vessel coronary artery calcification is present. No pericardial effusion. Aorta: Thoracic aorta non-dilated. There is no evidence of dissection. Atherosclerotic calcification is present. Pulmonary arteries: Due to the timing of the bolus, there is suboptimal opacification of the pulmonary arteries for evaluation of pulmonary emboli. Upper abdomen: There is an atrophic left kidney. Lymph nodes: Within normal limits. Bones: Within normal limits for the patient's age. Soft tissues: There is mild gynecomastia. There is again seen a subcutaneous fluid attenuation lesion in the left anterior chest wall. This was present on the examination from 2019. IMPRESSION: 1. Persistent right upper lobe pneumonia with dense area of consolidation along the periphery of the right upper lobe. 2. No focal fluid collection to suggest an abscess or empyema. 3. New small unencapsulated right pleural effusion. 4. Small infiltrate in the right lower lobe. RADIATION DOSE DELIVERED: 368.5mGy.cm Total DLP DATA REPOSITORY: All CT scans at this facility are submitted to the National Radiology Data Registry (NRDR) Dose Index Registry (DIR) with the [employer] (A[employer]). RADIATION OPTIMIZATION: All CT scans at this facility use at least one of these dose optimization techniques: automated exposure control; mA and/or kV adjustment per patient size (includes targeted exams where dose is matched to clinical indication); or iterative reconstruction.
[2025-06-21] MEDS: PIPERACILLIN/TAZO 3.375 GM in Normal Saline 50 ML IVPB ×3 (00:21→18:09)
[2025-06-21] MEDS: Albuterol HFA 8 GM 60 PUFF INH IH ×3 (00:25→22:08)
[2025-06-21] MEDS: Nicotine 21 MG/24 HR PATCH TD (07:58)
[2025-06-21] MEDS: Carvedilol 25 MG TAB PO ×2 (07:59→20:26)
[2025-06-21] MEDS: Torsemide 20 MG TAB PO (07:59)
[2025-06-21] MEDS: predniSONE 20 MG TAB 40 MG PO (07:59)
[2025-06-21] MEDS: Venlafaxine 75 MG CAPCR PO (07:59)
[2025-06-21] MEDS: dilTIAZem 30 MG TAB PO ×3 (07:59→20:26)
[2025-06-21] MEDS: Apixaban 5 MG TAB PO ×2 (08:00→20:25)
[2025-06-21] MEDS: guaiFENesin 600 MG TABCR PO ×2 (08:00→20:25)
[2025-06-21] MEDS: Pantoprazole 40 MG TABCR PO (08:00)
[2025-06-21] MEDS: Docusate Sodium 100 MG/10 ML CUP PO ×2 (08:00→15:44)
[2025-06-21] MEDS: Normal Saline Flush 10 ML SYR IVP ×2 (08:00→20:26)
[2025-06-21] MEDS: Lisinopril 2.5 MG TAB PO (08:00)
[2025-06-21 08:05] VITALS: BP 161/71; PULSE 69; RESP 18; TEMP 36.4; O2SAT 94
[2025-06-21] MEDS: Ipratropium/Albuterol 4 GM 120 PUFF INH IH ×4 (08:28→20:29)
[2025-06-21] MEDS: AZITHROMYCIN 250 MG in Normal Saline 250 ML IVPB (11:17)
--- NOTE | 2025-06-21 11:43 | PTTR_ITS ---
PT Notes Visit Reasons: Severe Sepsis, Hypoxic Resp Fail Pneumonia,CHF Exa Date: 06/20/2025 PRECAUTIONS: Activity as tolerated. Fall. Droplet and contact precautions. SUBJECTIVE: Pt was sitting on the edge of his bed when approached for PT. Patient was agreeable to participate in physical therapy this morning. He did report some left-sided leg pain and low back pain that he has been experiencing since a fall a couple weeks ago. OBJECTIVE: Telemetry monitoring in place.? IV access through the RUE. ? PAIN: He reported pain in left anteriolateral hip with transition sit to/from stand and with ambulation VITALS: ?Oxygen saturation ranged from 94-96% throughout session on RA HR from 90-95 bpm during session ? BED MOBILITY/TRANSFERS?:?Sit- stand: Supervision ? Stand-sit: Supervision ? GAIT? Assistive Device: FWW? Weight bearing: FWB Assist: supervision? Distance:? 20 ft with rolling walker and contact-guard ? Deviation: Decreased gait speed. low step height and short length, stoop forward posture, WBOS STAIRS: Not done due to current precuations ? THERA EX: Ankle pumps x 10 FAQ x 10 Seated hip flexion right x 10, standing hip flexion left x 10 ASSESSMENT: Patient tolerated physical therapy well. Required rest breaks during there ex and needed to complete hip flexion in standing due to some discomfort in his left lower extremity. PLAN: 1-2x/day, 7 days/week x 1 week. TREATMENT CODE/TIME: 35711 x 1 20 minutes motion DISCHARGE RECOMMENDATION: Return to SNF with continued PT to return to prior level of independence when medically stable
[2025-06-21 11:50] LABS: Abs Immature Grans 0.80 10^3/uL (0.0-0.06); HCT 26.6 % (40.0-50.0); HGB 8.3 g/dL (13.5-17.5); Immature Grans % 4.3 %; MCH 20.6 pg (27.0-33.0); MCHC 31.2 % (32.0-36.0); MCV 66 fL (80-95); MPV 9.4 fL (8.0-11.0); Platelet Count 539 10^3/uL (130-400); RBC 4.03 10^6/uL (4.36-5.78); RDW 17.5 % (11.8-14.1); RDW-SD 39.9 fL; WBC 18.51 10^3/uL (4.4-10.8)
[2025-06-21 12:08] LABS: Anisocytosis 1+; Hypochromasia 1+; Microcytosis 2+; Polychromasia Present
[2025-06-21 12:09] LABS: Poikilocytes 2+
[2025-06-21 12:14] VITALS: BP 137/61; PULSE 72; RESP 16; TEMP 36.6; O2SAT 96
--- NOTE | 2025-06-21 15:14 | PGE_ITS ---
Date of Service Date of service: 06/21/25 Time of Service: 15:14 Assessment and Plan Assessment and plan (1) Pneumonia: Status: Acute Assessment and plan: RUL on admission CT, associated with severe sepsis physiology Bronchoscopy done 06/17 with cultures from washings pending, including AFB Legionella Ag positive, most likely the pathologic organism MRSA nares, but none on BAL culture mycoplasma serologies positive but confirmatory test negative. Risk for TB and anearobes, he will remain on pip/tazo and azithro and respiratory precautions. Initial guidance from [facility] was three AFB smears, but after discussion with Dr. Swain he and I both feel comfortable this is not TB as long as AFB from BAL negative. I discussed with [place] [facility] 06/20 and they agreed. BAL studies still pending (called lab 06/21). Stable clinically today, though WBC up 06/20 and 06/21. No change in CXR 06/20. D/w Brnyn, get that CT, with contrast as concern is abscess. Also recommended repeating procal. If procal trending up, consider restarting MRSA coverage. (2) Acute exacerbation of CHF (congestive heart failure): Status: Acute Assessment and plan: Back on home torsemide, fluid status appears stable again today. (3) Acute exacerbation of chronic obstructive pulmonary disease: Status: Acute Assessment and plan: Being treated with prednisone, chronic inhalers, nebs PRN. Will need slow taper given chronic prednisolone use (admission dose 10mg). Will cut dose to 30mg as he has been here 8 days. (4) Acute kidney injury superimposed on stage 3a chronic kidney disease: Status: Acute Assessment and plan: Improved to near baseline. Follow after second contrast study 06/21 (5) Atrial fibrillation: Status: Chronic Assessment and plan: Afib/flutter off/on, rates are coming down as illness treated. (6) History of tobacco use: Assessment and plan: NRT (7) Anemia, chronic disease: Status: Acute Assessment and plan: stable confirmed tranferrin saturation >20% though iron low, c/w chronic disease/CKD. H/o normal electrophoresis (no thalasemmia) EPO candidate (8) Palliative care patient: Status: Acute Assessment and plan: He is followed by Palliative care, seeing inpatient as well. He will return to the rehab when he is discharged, need to clear from TB first. Subjective Subjective Patient reports: no new complaints and tolerating a regular diet; denies diarrh ea, nausea, vomiting or fever Interval history since last seen: Still coughing, not much sputum coming up. SOB about the same, asking for neb this morning as they do help. No chest pain. Exam Narrative Exam Narrative: General: alert, no acute distress CV: normal rate, regular rhythm, no m/g Respiratory: CTAB, good air movement, normal effort GI: abd soft, no tenderness, non-distended Extremities: trace bilataral pedal edema, no digital clubbing, warm Objective Last Vital Signs Temp 36.6 C 06/21/25 12:14 Pulse 72 06/21/25 12:14 Resp 16 06/21/25 12:14 BP 137/61 06/21/25 12:14 Pulse Ox 96 06/21/25 12:14 Laboratory Results - last 24 hr 06/21/25 11:45 WBC 18.51 H RBC 4.03 L Hgb 8.3 L Hct 26.6 L MCV 66 L MCH 20.6 L MCHC 31.2 L RDW 17.5 H Plt Count 539 H MPV 9.4 Immature Gran % 4.3 Neutrophils % 86.5 Lymphocytes % 5.6 Monocytes % 2.4 Eosinophils % 1.0 Basophils % 0.2 Nucleated RBC % 0.2 Absolute Neutrophils 16.01 H Absolute Lymphocytes 1.04 L Absolute Monocytes 0.44 Absolute Eosinophils 0.19 Absolute Basophils 0.04 RBC Morphology See Below Polychromasia Present Hypochromasia 1+ Poikilocytosis 2+ Anisocytosis 1+ Microcytosis 2+ PAWSS Have you Been Recently Intoxicated or Drunk Within the Last 30 days?: No Have you Ever Experienced Previous Episodes of Alcohol Withdrawal?: No Have you ever Experienced Withdrawal Seizures?: No Have you ever Experienced Delirium Tremens(DT)s?: No Have you ever undergone Alcohol Rehabilitation Treatment (i.e, inpt ot outpatient treatment programs)?: No Have you ever Experienced Blackouts?: No Have you ever Combined Alcohol with other Downers within the last 90 days?: No Have you ever Combined Alcohol with any other Substance of Abuse during the last 90 days?: No Positive Blood Alcohol level on Presentation? [PCS.BAL]: No Evidence of Increased Autonomic Activity (i.e. HR>120, tremor, sweating, agitation, nausea)?: No Result: 0 Time Spent with Patient Time Spent with Patient: 35-49 minutes Time was spent: preparing to see the patient(eg.review tests), obtaining and/or reviewing separately otained hiistory, ordering medications,tests, procedures, referring, communicating with other health home care physical therapist, indepentently interpreting results, counseling the patient and care coordination
[2025-06-21] MEDS: Normal Saline - Diluent 50 ML VIAL IJ (15:28)
[2025-06-21] MEDS: Omnipaque 350 MG/ML 100 ML BTL 70 ML IJ (15:30)
[2025-06-21 15:37] VITALS: BP 192/76; PULSE 72; RESP 19; TEMP 36.6; O2SAT 93
[2025-06-21 15:53] VITALS: BP 159/61; PULSE 72
[2025-06-21 16:06] LABS: Procalcitonin 0.65 ng/mL
[2025-06-21 20:17] VITALS: BP 183/74; PULSE 73; RESP 24; TEMP 36.5; O2SAT 91
[2025-06-21 20:23] VITALS: BP 161/71
[2025-06-22] MEDS: PIPERACILLIN/TAZO 3.375 GM in Normal Saline 50 ML IVPB ×4 (00:30→23:56)
[2025-06-22] MEDS: Albuterol HFA 8 GM 60 PUFF INH IH ×3 (04:44→22:45)
[2025-06-22 07:04] LABS: Anion Gap 8.9 mmol/L (3-11); BUN 44 mg/dL (7-18); CO2 26.1 mmol/L (21.0-32.0); Calcium 8.8 mg/dL (8.5-10.1); Chloride 106 mmol/L (98-107); Estimated GFR 45.50 (mL/min/1.73m2); Glucose 94 mg/dL (74-106); Potassium 3.8 mmol/L (3.5-5.1); Sodium 141 mmol/L (136-145)
[2025-06-22] MEDS: Apixaban 5 MG TAB PO ×2 (07:46→20:05)
[2025-06-22] MEDS: predniSONE 20 MG TAB 40 MG PO (07:46)
[2025-06-22] MEDS: Torsemide 20 MG TAB PO (07:46)
[2025-06-22] MEDS: Lisinopril 2.5 MG TAB PO (07:46)
[2025-06-22] MEDS: Carvedilol 25 MG TAB PO ×2 (07:46→20:05)
[2025-06-22] MEDS: Pantoprazole 40 MG TABCR PO (07:46)
[2025-06-22] MEDS: guaiFENesin 600 MG TABCR PO ×2 (07:47→20:05)
[2025-06-22] MEDS: dilTIAZem 30 MG TAB PO ×3 (07:47→20:05)
[2025-06-22] MEDS: Venlafaxine 75 MG CAPCR PO (07:47)
[2025-06-22] MEDS: Normal Saline Flush 10 ML SYR IVP ×2 (07:50→20:06)
[2025-06-22 08:08] VITALS: BP 165/68; PULSE 71; RESP 20; TEMP 36.5; O2SAT 94
[2025-06-22] MEDS: Ipratropium/Albuterol 4 GM 120 PUFF INH IH ×4 (08:15→19:56)
[2025-06-22] MEDS: Nicotine 21 MG/24 HR PATCH TD (08:33)
--- NOTE | 2025-06-22 09:35 | PT.INTREAT ---
PT Notes Visit Reasons: Severe Sepsis, Hypoxic Resp Fail Pneumonia,CHF Ex[facility] Inpatient Physical Therapy Treatment Note [facility] Date: 06/22/25 PRECAUTIONS: Activity as tolerated. Fall. Droplet and contact precautions. SUBJECTIVE: Paul states that his breathing has been more difficult today. He's been transferring to and from the [facility] on his own now, and feels safe doing so, but does get short of breath. OBJECTIVE: ? PAIN: left flank, left hip and thigh ??Therapeutic Exercises ([id number]): Direct one-on-one instruction in therapeutic exercises to develop strength, endurance, range of motion and flexibility. ? ? BED MOBILITY/TRANSFERS? Supine-sit: independent? Sit-supine: independent ? Sit-stand: independent? Stand-sit: independent ? Bed-commode : independent with FWW via stand pivot ? GAIT? Assistive Device: FWW? Weight bearing: AT Assist: SBA, assist for management of lines ? Distance:? 6' ? Deviation: slow, cautious ambulation. Cues for FWW placement (tends to push walker ahead, requiring trunk flexion). Cues for pacing and breathing throughout Today's session consisted of ambulation to chair for improved activity tolerance. He struggles to tolerate, with RPE 7 post transfer. Requires standing x 45 seconds prior to ambulation due to MONTIEL. Recovers in chair to normalized breathing patterns, but does not feel capable of further activity today. ? ASSESSMENT:? Limited activity tolerance today, but improving safety and independence. PLAN: Continue PT intervention to maximize activity tolerance and safety. TREATMENT CODE/TIME: 8195-2210 DISCHARGE RECOMMENDATION: SNF
[2025-06-22] MEDS: AZITHROMYCIN 250 MG in Normal Saline 250 ML IVPB (11:00)
[2025-06-22 12:07] VITALS: BP 130/61; PULSE 72; RESP 18; TEMP 36.8; O2SAT 93
--- NOTE | 2025-06-22 14:51 | W.PM.PROGNOT ---
Date of Service Date of service: 06/22/25 Time of Service: 14:51 Assessment and Plan Assessment and plan (1) Pneumonia: Status: Acute Assessment and plan: RUL on admission CT, associated with severe sepsis physiology, which resolved. 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 Risk for TB and anearobes, he will remain on pip/tazo and azithro and respiratory precautions. Initial guidance from [facility] was three AFB smears, but after discussion with Dr. Swain he and I both feel comfortable this is not TB as long as AFB from BAL negative. I discussed with [facility] 06/20 and they agreed. BAL studies still pending (called lab 06/21), per lab expect 06/22. D/w Dr. Swain 06/21, repeat CT chest and procal. Big drop in procal, so continue same antibiotics. No abscess, but some pleural fluid collecting. Brynn to consider pleuracentesis 06/23. (2) Acute exacerbation of CHF (congestive heart failure): Status: Acute Assessment and plan: Back on home torsemide, fluid status appears stable. (3) Acute exacerbation of chronic obstructive pulmonary disease: Status: Acute Assessment and plan: Being treated with prednisone, chronic inhalers, nebs PRN. Will need slow taper given chronic prednisolone use (admission dose 10mg). Cut to 30mg as he has been here 9 days. (4) Acute kidney injury superimposed on stage 3a chronic kidney disease: Status: Acute Assessment and plan: Improved to near baseline, Cr down slightly 06/22 even after second contrast study on 06/21 (5) Atrial fibrillation: Status: Chronic Assessment and plan: Afib/flutter off/on, mostly aflutter with 4:1 block. Rates are coming down as illness treated. (6) History of tobacco use: Assessment and plan: NRT (7) Anemia, chronic disease: Status: Acute Assessment and plan: stable confirmed tranferrin saturation >20% though iron low, c/w chronic disease/CKD. H/o normal electrophoresis (no thalasemmia) EPO candidate, give a dose of aranesp as increasing h/h may help his respiratory status (8) Palliative care patient: Status: Acute Assessment and plan: He is followed by Palliative care, seeing inpatient as well. He will return to the rehab when he is discharged, need to clear from TB first. Subjective Subjective Patient reports: no new complaints, tolerating a regular diet and voiding w/o difficulty; denies nausea, vomiting or fever Interval history since last seen: Events: repeat procalcitonin 0.[address] w/ repeated: 1. Persistent right upper lobe pneumonia with dense area of consolidation along the periphery of the right upper lobe. 2. No focal fluid collection to suggest an abscess or empyema. 3. New small unencapsulated right pleural effusion. 4. Small infiltrate in the right lower lobe. He feels okay. Breathing bothering him a little more in the past couple days. Nebs help. Eating, no fever. Exam Narrative Exam Narrative: General: alert, no acute distress CV: normal rate, regular rhythm, no m/g Respiratory: CTAB x diminished right base, otherwise good air movement, normal effort GI: abd soft, no tenderness, non-distended Extremities: trace bilateral pedal edema, no digital clubbing, warm Objective Last Vital Signs Temp 36.8 C 06/22/25 12:07 Pulse 72 06/22/25 12:07 Resp 18 06/22/25 12:07 BP 130/61 06/22/25 12:07 Pulse Ox 93 06/22/25 12:07 Laboratory Results - last 24 hr 06/21/25 06/22/25 15:30 06:08 Sodium 141 Potassium 3.8 Chloride 106 Carbon Dioxide 26.1 Anion Gap 8.9 BUN 44 H Creatinine 1.6 H Est GFR (CKD-EPI 2020) 45.50 Glucose 94 Calcium 8.8 Procalcitonin 0.65 PAWSS Have you Been Recently Intoxicated or Drunk Within the Last 30 days?: No Have you Ever Experienced Previous Episodes of Alcohol Withdrawal?: No Have you ever Experienced Withdrawal Seizures?: No Have you ever Experienced Delirium Tremens(DT)s?: No Have you ever undergone Alcohol Rehabilitation Treatment (i.e, inpt ot outpatient treatment programs)?: No Have you ever Experienced Blackouts?: No Have you ever Combined Alcohol with other Downers within the last 90 days?: No Have you ever Combined Alcohol with any other Substance of Abuse during the last 90 days?: No Positive Blood Alcohol level on Presentation? [PCS.BAL]: No Evidence of Increased Autonomic Activity (i.e. HR>120, tremor, sweating, agitation, nausea)?: No Result: 0 Time Spent with Patient Time Spent with Patient: 35-49 minutes Time was spent: preparing to see the patient(eg.review tests), obtaining and/or reviewing separately otained hiistory, ordering medications,tests, procedures, referring, communicating with other health healthcare receptionist, indepentently interpreting results, counseling the patient and care coordination
[2025-06-22 19:40] VITALS: BP 155/75; PULSE 73; RESP 16; TEMP 36.9; O2SAT 93
[2025-06-22 23:09] VITALS: BP 150/80; PULSE 73; RESP 16; TEMP 36.5; O2SAT 93
[2025-06-23] VITALS (7 sets, daily range): BP systolic 120–163; BP diastolic 60–70; PULSE 71–75; RESP 16–22; TEMP 36.4–36.9; O2SAT 90–93
[2025-06-23] MEDS: Albuterol HFA 8 GM 60 PUFF INH IH ×3 (06:13→19:33)
[2025-06-23 06:17] LABS: Abs Immature Grans 0.87 10^3/uL (0.0-0.06); HCT 26.9 % (40.0-50.0); HGB 8.4 g/dL (13.5-17.5); Immature Grans % 5.7 %; MCH 20.5 pg (27.0-33.0); MCHC 31.2 % (32.0-36.0); MCV 66 fL (80-95); MPV 9.3 fL (8.0-11.0); Platelet Count 662 10^3/uL (130-400); RBC 4.09 10^6/uL (4.36-5.78); RDW 17.6 % (11.8-14.1); RDW-SD 40.3 fL; WBC 15.26 10^3/uL (4.4-10.8)
[2025-06-23] MEDS: Torsemide 20 MG TAB PO (07:36)
[2025-06-23] MEDS: Carvedilol 25 MG TAB PO ×2 (07:36→20:44)
[2025-06-23] MEDS: guaiFENesin 600 MG TABCR PO ×2 (07:36→20:44)
[2025-06-23] MEDS: dilTIAZem 30 MG TAB PO ×3 (07:36→20:44)
[2025-06-23] MEDS: Lisinopril 2.5 MG TAB PO (07:36)
[2025-06-23] MEDS: Venlafaxine 75 MG CAPCR PO (07:36)
[2025-06-23] MEDS: Pantoprazole 40 MG TABCR PO (07:37)
[2025-06-23] MEDS: Apixaban 5 MG TAB PO ×2 (07:37→20:44)
[2025-06-23] MEDS: Normal Saline Flush 10 ML SYR IVP ×3 (07:37→20:45)
[2025-06-23] MEDS: Nicotine 21 MG/24 HR PATCH TD (07:38)
[2025-06-23] MEDS: PIPERACILLIN/TAZO 3.375 GM in Normal Saline 50 ML IVPB ×2 (07:39→16:29)
--- NOTE | 2025-06-23 08:01 | PGE_ITS ---
General Date Of Service Date of service: 06/23/25 Time of Service: 07:30 Reason for Consult: Pneumonia Recommendations: Assessment: 1. Sepsis - due to pneumonia 2. Legionella pneumonia - urine legionella ag positive. Infectious workup also positive for MRSA nasal swab. Bld cultures negative. BAL bacterial/fungal/afb cultures pending 3. Right pleural effusion - suspect simple parapneumonic effusion - trace/small right effusion on POCUS US today at bedside 4. COPD exacerbation - underlying class 2E COPD - improved 5. Acute on chronic renal failure - Cr improved to 1.6 6. Pulmonary nodules - ~1.5 cm partially calcified nodule in the anterior RUL with a smaller satellite nodule - stable from 08/2020 to 06/2025, suggesting a benign etiology Plan: - followup on BAL cultures and smears. If AFB smears are negative, can d/c airborne isolation. Until then, should remain in - continue zosyn, and azithromycin. Once BAL bacterial cultures are back, will be able to streamline antibiotics. Has very poor dentition, so at risk for anaerobic pneumonia - has completed > 7 days of systemic steroids, so can go back to his 10 mg daily base dose of prednisone - start symbicort 160 BID - continue duoneb PRN - his pleural effusion is quite small at this time. Will monitor for now. Should it enlarge, thoracentesis may be warranted. Discussed with Dr. Ferrari Subjective Note Note: Patient is a 74 yo with a history of COPD, CAD, tobacco abuse and CKD who was admitted for right upper lobe pneumonia. He reported feeling unwell since 01/2025. Has had intermittent evaluations since that time. Symptoms worsened recently, prompting his current admission. Reports subjective fevers at home. Has a cough but not producing sputum. Denied any hemoptysis. No chest pain. CT chest showed a severe RUL pneumonia. No pleural effusions. He has a 1.5 cm partially calficied nodule that has been stable for years. He has very poor dentition. Denied any aspiration episodes. No known TB exposures. Currently living in nursing facility / assisted living. Bronchoscopy completed 06/17 with BAL of the RUL. Analysis and cultures pending. On room air. Has had increased sputum production. Dyspnea overall improved. Still has significant weakness ambulating. Family history: mother - COPD Smoking history: smoked 1 ppd x 50 years. Active TB exposures: no known exposures ROS: 6 pt ROS negative except as in HPI Exam Narrative Exam Narrative: General: alert, no acute distress Head: normocephalic ENT: no stridor, trachea midline, poor dentition CV: normal rate, regular rhythm Respiratory: no wheezing, no crackles, right sided rhonchi, no prolonged expiration GI: abd soft, non-tender, non-distended Skin: no rashes Extremities: +1 edema, no digital clubbing Psych: normal affect Objective Last Vital Signs Temp 36.4 C L 06/23/25 04:02 Pulse 71 06/23/25 04:02 Resp 18 06/23/25 04:02 BP 160/70 H 06/23/25 04:02 Pulse Ox 91 L 06/23/25 04:02 Laboratory Results - last 24 hr 06/23/25 05:59 WBC 15.26 H RBC 4.09 L Hgb 8.4 L Hct 26.9 L MCV 66 L MCH 20.5 L MCHC 31.2 L RDW 17.6 H Plt Count 662 H MPV 9.3 Immature Gran % 5.7 Neutrophils % 67.9 Lymphocytes % 19.8 Monocytes % 5.7 Eosinophils % 0.7 Basophils % 0.2 Nucleated RBC % 0.3 Absolute Neutrophils 10.36 H Absolute Lymphocytes 3.02 Absolute Monocytes 0.87 H Absolute Eosinophils 0.11 Absolute Basophils 0.03 Results Medications Medications: Active Medications Generic Name Dose Route Start Last Admin Trade Name Freq PRN Reason Stop Dose Admin Acetaminophen 650 mg 06/13/25 12:22 06/19/25 01:09 Acetaminophen 325 Mg Tab PO 650 mg Q4H PRN PRN Administration Al Hydrox/Mg Hydrox/Simethicone 30 ml 06/13/25 12:22 Mylanta Suspension 30 Ml Cup PO Q2H PRN PRN Albuterol Sulfate 2 puff 06/13/25 14:06 06/23/25 06:13 Albuterol Hfa 8 Gm 60 Puff Inh IH 2 inh Q4H PRN PRN Administration Albuterol/Ipratropium 1 puff 06/13/25 16:00 06/22/25 19:56 Ipratropium/Albuterol 4 Gm 120 Puff Inh IH 1 puff QID MAIA Administration Albuterol/Ipratropium 3 ml 06/14/25 00:32 06/16/25 06:21 Albuterol/Ipratropium 3 Ml Upd Vial UPD 3 ml Q4H PRN PRN Administration Apixaban 5 mg 06/18/25 20:00 06/23/25 07:37 Apixaban 5 Mg Tab PO 5 mg BID MAIA Administration Carvedilol 25 mg 06/17/25 08:30 06/23/25 07:36 Carvedilol 25 Mg Tab PO 25 mg BID MAAI Administration Darbepoetin Gregorio 60 mcg 06/22/25 16:00 06/22/25 17:23 Darbepoetin 60 Mcg Syr SC 60 mcg TODAY MAIA Administration Diltiazem HCl 30 mg 06/19/25 20:00 06/23/25 07:36 Diltiazem 30 Mg Tab PO 30 mg TID [facility] Administration Docusate Sodium 100 mg 06/13/25 20:00 06/23/25 07:38 Docusate Sodium 100 Mg/10 Ml Cup PO Not Given TID MAIA Guaifenesin 600 mg 06/13/25 20:00 06/23/25 07:36 Guaifenesin 600 Mg Tabcr PO 600 mg BID [facility] Administration Hydroxyzine HCl 10 mg 06/16/25 09:11 06/16/25 20:45 Hydroxyzine Hcl 10 Mg Tab PO 10 mg TID PRN PRN Administration Azithromycin 250 mg/ Sodium 250 mls @ 250 mls/hr 06/14/25 10:00 06/22/25 12:40 Chloride IVPB Infused Q24H [facility] Infusion Piperacillin Sod/Tazobactam 50 mls @ 12.5 mls/hr 06/17/25 08:30 06/23/25 07:39 Sod 3.375 gm/ Sodium Chloride IVPB 12.5 mls/hr Q8H [facility] Administration IV Miscellaneous Supplies 1 each 06/13/25 12:22 Iv Access IV DIRECTED [facility] Lidocaine HCl 30 ml 06/16/25 09:00 Lidocaine 2% Viscous 15 Ml Cup PO DIRECTED MAIA Lidocaine HCl 10 ml 06/16/25 08:45 Lidocaine 1% Multi-Dose 20 Ml Vial IJ DIRECTED MAIA Lidocaine HCl 6 ml 06/16/25 08:45 Lidocaine 2% Multi-Dose 20 Ml Vial IJ DIRECTED [facility] Lisinopril 2.5 mg 06/17/25 08:30 06/23/25 07:36 Lisinopril 2.5 Mg Tab PO 2.5 mg DAILY MAIA Administration Lorazepam 0.5 mg 06/13/25 22:16 06/18/25 11:47 Lorazepam 0.5 Mg Tab PO 0.5 mg Q4H PRN PRN Administration Morphine Sulfate 2 mg 06/14/25 01:07 06/18/25 07:49 Morphine 2 Mg/Ml Syr IVP 2 mg Q2H PRN PRN Administration Nicotine 21 mg 06/14/25 08:30 06/23/25 07:38 Nicotine 21 Mg/24 Hr Patch TD 21 mg DAILY MAIA Administration Oxycodone HCl 5 - 10 mg 06/18/25 14:24 06/18/25 20:50 Oxycodone 5 Mg Tab PO 5 mg Q4H PRN PRN Administration Pantoprazole Sodium 40 mg 06/14/25 07:30 06/23/25 07:37 Pantoprazole 40 Mg Tabcr PO 40 mg DAILY@0730 MAIA Administration Polyethylene Glycol 17 gm 06/13/25 12:22 Polyethylene Glycol 3350 17 Gm Packet PO DAILY PRN PRN Constipation Prednisone 30 mg 06/23/25 08:30 Prednisone 10 Mg Tab PO DAILY MAIA Sodium Chloride 0 ml 06/13/25 12:22 06/19/25 00:23 Normal Saline Flush 10 Ml Syr IVP 10 ml PRN PRN Administration Sodium Chloride 0 ml 06/13/25 20:00 06/23/25 07:37 Normal Saline Flush 10 Ml Syr IVP 40 ml BID MAIA Administration Sodium Chloride 0 ml 06/13/25 12:22 Normal Saline 10 Ml Vial IJ DIRECTED PRN Torsemide 20 mg 06/20/25 08:30 06/23/25 07:36 Torsemide 20 Mg Tab PO 20 mg DAILY MAIA Administration Venlafaxine HCl 75 mg 06/14/25 08:30 06/23/25 07:36 Venlafaxine 75 Mg Capcr PO 75 mg DAILY MAIA Administration Allergies lisinopril Adverse Reaction (Unknown, Unverified 05/03/25 02:05) low BP, worsening CKD codeine phosphate (From Tylenol-Codeine) Adverse Reaction (Unverified 05/03/25 02:05) constipation Labs 06/23/25 05:59 06/22/25 06:08 Labs: 06/13/25 10:05 Blood Blood Culture - Final NO GROWTH 120 HOURS 06/13/25 10:20 Blood Blood Culture - Final NO GROWTH 120 HOURS 06/14/25 00:34 Urine - Reflex from Ua Urine Culture - Final Gram positive asaf, mixed Laboratory Tests Range/Units 06/13/25 06/13/25 06/13/25 08:00 09:55 10:20 WBC (4.4-10.8) 10^3/uL 34.34 H* RBC (4.36-5.78) 10^6/uL 4.74 Hgb (13.5-17.5) g/dL 10.1 L Hct (40.0-50.0) % 33.2 L MCV (80-95) fL 70 L MCH (27.0-33.0) pg 21.3 L MCHC (32.0-36.0) % 30.4 L RDW (11.8-14.1) % 17.8 H Plt Count (130-400) 10^3/uL 443 H MPV (8.0-11.0) fL 10.0 Immature Gran % % 0.0 Neutrophils % % 86.0 Lymphocytes % % 11.0 Monocytes % % 3.0 Eosinophils % % 0.0 Basophils % % 0.0 Nucleated RBC % (0.0-0.3) % 1.0 H Absolute Neutrophils (1.2-6.7) 10^3/uL 29.53 H Absolute Lymphocytes (1.2-3.4) 10^3/uL 3.78 H Absolute Monocytes (0.1-0.8) 10^3/uL 1.03 H Absolute Eosinophils (0.0-0.7) 10^3/uL 0.00 Absolute Basophils (0.0-0.2) 10^3/uL 0.00 RBC Morphology Normal Polychromasia Hypochromasia Poikilocytosis Anisocytosis Microcytosis ABG Sample Site ABG pH ABG pCO2 ABG pO2 ABG HCO3 ABG Total CO2 ABG O2 Saturation ABG Base Excess VBG pH (7.31-7.41) 7.38 VBG pCO2 (41-51) mmHg 37 L VBG pO2 mmHg 51 VBG HCO3 (23-28) mmol/L 22 L VBG Total CO2 (24-29) mmol/L 21 L VBG O2 Saturation % 86 VBG Base Excess (-2-3) mmol/L -3 L VBG Lactate (<or=2.0) mmol/L 2.6 H* Oxygen Liter Flow FiO2 Sodium (136-145) mmol/L 139 Potassium (3.5-5.1) mmol/L 4.1 Chloride (98-107) mmol/L 101 Carbon Dioxide (21.0-32.0) mmol/L 25.8 Anion Gap (3-11) mmol/L 12.2 H BUN (7-18) mg/dL 36 H Creatinine (0.70-1.30) mg/dL 1.9 H Est GFR (CKD-EPI 2020) (mL/min/1.73m2) 37.02 Glucose (74-106) mg/dL 117 H Calcium (8.5-10.1) mg/dL 8.8 Magnesium (1.8-2.4) mg/dL 2.0 Iron (65-175) ug/dL TIBC (250-450) ug/dL Transferrin % Sat (20-55) % Total Bilirubin (0.2-1.0) mg/dL 2.2 H AST (15-37) U/L 13 L ALT (16-63) U/L 16 Alkaline Phosphatase (46-116) U/L 64 Troponin I (<or=76) ng/L 61 79 H* NT-Pro-B Natriuret Pep (<300) pg/mL 9159 H Total Protein (6.4-8.2) g/dL 7.1 Albumin (3.4-5.0) g/dL 3.1 L Procalcitonin ng/mL Urine Color (Yellow) Urine Clarity (Clear) Urine pH (5-8) Ur Specific Hope (1.005-1.025) Urine Protein (Neg-Trace) mg/dL Urine Ketones (Negative) mg/dL Urine Blood (Negative) Urine Nitrite (Negative) Urine Bilirubin (Negative) Urine Urobilinogen (Up to 0.2) mg/dL Ur Leukocyte Esterase (Negative) Urine RBC (0-2) HPF Urine WBC (0-5) HPF Ur Epithelial Cells (Negative) HPF Urine Crystals (Negative) HPF Urine Bacteria (Negative) HPF Urine Casts (Negative) LPF Urine Mucus (Negative) Ur Culture Indicated? Urine Glucose (Negative) mg/dL BAL Neutrophils BAL Lymphocytes BAL Eosinophils BAL Basophils BAL Monocyte/Macrophage BAL Path Comment Random Vancomycin ug/mL Gram Stain COVID-19 Source SARS-CoV-2 (PCR) (Negative) Influenza Type A (PCR) (Negative) Influenza Type B (PCR) (Negative) Urine Legionella Ag (Negative) M. pneumoniae Interp Mycoplasma pneumon IgG (Negative) Mycoplasma pneumon IgM (Negative) M.pneumoniae IgM (IFA) (Negative) RSV (PCR) (Negative) MRSA (TEM-PCR) (Negative) Ur Strep pneumoniae Ag (Negative) TB Test Ag - Nil 1 IU/mL 0.00 TB Test Ag - Nil 2 IU/mL 0.00 TB Test (QFT) Interp (Negative) Negative Aerobic Culture Add-On Test Request Ref Test Specimen Type Ref Report Verification Range/Units 06/13/25 06/13/25 06/13/25 11:04 13:40 13:51 WBC (4.4-10.8) 10^3/uL RBC (4.36-5.78) 10^6/uL Hgb (13.5-17.5) g/dL Hct (40.0-50.0) % MCV (80-95) fL MCH (27.0-33.0) pg MCHC (32.0-36.0) % RDW (11.8-14.1) % Plt Count (130-400) 10^3/uL MPV (8.0-11.0) fL Immature Gran % % Neutrophils % % Lymphocytes % % Monocytes % % Eosinophils % % Basophils % % Nucleated RBC % (0.0-0.3) % Absolute Neutrophils (1.2-6.7) 10^3/uL Absolute Lymphocytes (1.2-3.4) 10^3/uL Absolute Monocytes (0.1-0.8) 10^3/uL Absolute Eosinophils (0.0-0.7) 10^3/uL Absolute Basophils (0.0-0.2) 10^3/uL RBC Morphology Polychromasia Hypochromasia Poikilocytosis Anisocytosis Microcytosis ABG Sample Site ABG pH ABG pCO2 ABG pO2 ABG HCO3 ABG Total CO2 ABG O2 Saturation ABG Base Excess VBG pH (7.31-7.41) VBG pCO2 (41-51) mmHg VBG pO2 mmHg VBG HCO3 (23-28) mmol/L VBG Total CO2 (24-29) mmol/L VBG O2 Saturation % VBG Base Excess (-2-3) mmol/L VBG Lactate (<or=2.0) mmol/L 4.0 H* Oxygen Liter Flow FiO2 Sodium (136-145) mmol/L Potassium (3.5-5.1) mmol/L Chloride (98-107) mmol/L Carbon Dioxide (21.0-32.0) mmol/L Anion Gap (3-11) mmol/L BUN (7-18) mg/dL Creatinine (0.70-1.30) mg/dL Est GFR (CKD-EPI 2020) (mL/min/1.73m2) Glucose (74-106) mg/dL Calcium (8.5-10.1) mg/dL Magnesium (1.8-2.4) mg/dL Iron (65-175) ug/dL TIBC (250-450) ug/dL Transferrin % Sat (20-55) % Total Bilirubin (0.2-1.0) mg/dL AST (15-37) U/L ALT (16-63) U/L Alkaline Phosphatase (46-116) U/L Troponin I (<or=76) ng/L 89 H* Cancelled NT-Pro-B Natriuret Pep (<300) pg/mL Total Protein (6.4-8.2) g/dL Albumin (3.4-5.0) g/dL Procalcitonin ng/mL Urine Color (Yellow) Urine Clarity (Clear) Urine pH (5-8) Ur Specific Hope (1.005-1.025) Urine Protein (Neg-Trace) mg/dL Urine Ketones (Negative) mg/dL Urine Blood (Negative) Urine Nitrite (Negative) Urine Bilirubin (Negative) Urine Urobilinogen (Up to 0.2) mg/dL Ur Leukocyte Esterase (Negative) Urine RBC (0-2) HPF Urine WBC (0-5) HPF Ur Epithelial Cells (Negative) HPF Urine Crystals (Negative) HPF Urine Bacteria (Negative) HPF Urine Casts (Negative) LPF Urine Mucus (Negative) Ur Culture Indicated? Urine Glucose (Negative) mg/dL BAL Neutrophils BAL Lymphocytes BAL Eosinophils BAL Basophils BAL Monocyte/Macrophage BAL Path Comment Random Vancomycin ug/mL Gram Stain COVID-19 Source Nasopharynx SARS-CoV-2 (PCR) (Negative) Negative Influenza Type A (PCR) (Negative) Negative Influenza Type B (PCR) (Negative) Negative Urine Legionella Ag (Negative) M. pneumoniae Interp Mycoplasma pneumon IgG (Negative) Mycoplasma pneumon IgM (Negative) M.pneumoniae IgM (IFA) (Negative) RSV (PCR) (Negative) Negative MRSA (TEM-PCR) (Negative) Ur Strep pneumoniae Ag (Negative) TB Test Ag - Nil 1 IU/mL TB Test Ag - Nil 2 IU/mL TB Test (QFT) Interp (Negative) Aerobic Culture Add-On Test Request Ref Test Specimen Type Ref Report Verification Range/Units 06/13/25 06/14/25 06/14/25 17:50 00:34 03:33 WBC (4.4-10.8) 10^3/uL RBC (4.36-5.78) 10^6/uL Hgb (13.5-17.5) g/dL Hct (40.0-50.0) % MCV (80-95) fL MCH (27.0-33.0) pg MCHC (32.0-36.0) % RDW (11.8-14.1) % Plt Count (130-400) 10^3/uL MPV (8.0-11.0) fL Immature Gran % % Neutrophils % % Lymphocytes % % Monocytes % % Eosinophils % % Basophils % % Nucleated RBC % (0.0-0.3) % Absolute Neutrophils (1.2-6.7) 10^3/uL Absolute Lymphocytes (1.2-3.4) 10^3/uL Absolute Monocytes (0.1-0.8) 10^3/uL Absolute Eosinophils (0.0-0.7) 10^3/uL Absolute Basophils (0.0-0.2) 10^3/uL RBC Morphology Polychromasia Hypochromasia Poikilocytosis Anisocytosis Microcytosis ABG Sample Site Cancelled ABG pH Cancelled ABG pCO2 Cancelled ABG pO2 Cancelled ABG HCO3 Cancelled ABG Total CO2 Cancelled ABG O2 Saturation Cancelled ABG Base Excess Cancelled VBG pH (7.31-7.41) VBG pCO2 (41-51) mmHg VBG pO2 mmHg VBG HCO3 (23-28) mmol/L VBG Total CO2 (24-29) mmol/L VBG O2 Saturation % VBG Base Excess (-2-3) mmol/L VBG Lactate (<or=2.0) mmol/L 2.0 Oxygen Liter Flow Cancelled FiO2 Cancelled Sodium (136-145) mmol/L Potassium (3.5-5.1) mmol/L Chloride (98-107) mmol/L Carbon Dioxide (21.0-32.0) mmol/L Anion Gap (3-11) mmol/L BUN (7-18) mg/dL Creatinine (0.70-1.30) mg/dL Est GFR (CKD-EPI 2020) (mL/min/1.73m2) Glucose (74-106) mg/dL Calcium (8.5-10.1) mg/dL Magnesium (1.8-2.4) mg/dL Iron (65-175) ug/dL TIBC (250-450) ug/dL Transferrin % Sat (20-55) % Total Bilirubin (0.2-1.0) mg/dL AST (15-37) U/L ALT (16-63) U/L Alkaline Phosphatase (46-116) U/L Troponin I (<or=76) ng/L NT-Pro-B Natriuret Pep (<300) pg/mL Total Protein (6.4-8.2) g/dL Albumin (3.4-5.0) g/dL Procalcitonin ng/mL Urine Color (Yellow) Yellow Urine Clarity (Clear) Clear Urine pH (5-8) 6.0 Ur Specific Hope (1.005-1.025) 1.015 Urine Protein (Neg-Trace) mg/dL >=300 H Urine Ketones (Negative) mg/dL Negative Urine Blood (Negative) Trace-intact H Urine Nitrite (Negative) Negative Urine Bilirubin (Negative) Negative Urine Urobilinogen (Up to 0.2) mg/dL 0.2 Ur Leukocyte Esterase (Negative) Small H Urine RBC (0-2) HPF 3-5 H Urine WBC (0-5) HPF >50 H Ur Epithelial Cells (Negative) HPF Few Urine Crystals (Negative) HPF Negative Urine Bacteria (Negative) HPF Few Urine Casts (Negative) LPF Negative Urine Mucus (Negative) Negative Ur Culture Indicated? Yes Urine Glucose (Negative) mg/dL Negative BAL Neutrophils BAL Lymphocytes BAL Eosinophils BAL Basophils BAL Monocyte/Macrophage BAL Path Comment Random Vancomycin ug/mL Gram Stain COVID-19 Source SARS-CoV-2 (PCR) (Negative) Influenza Type A (PCR) (Negative) Influenza Type B (PCR) (Negative) Urine Legionella Ag (Negative) M. pneumoniae Interp Mycoplasma pneumon IgG (Negative) Mycoplasma pneumon IgM (Negative) M.pneumoniae IgM (IFA) (Negative) RSV (PCR) (Negative) MRSA (TEM-PCR) (Negative) Ur Strep pneumoniae Ag (Negative) TB Test Ag - Nil 1 IU/mL TB Test Ag - Nil 2 IU/mL TB Test (QFT) Interp (Negative) Aerobic Culture Add-On Test Request Ref Test Specimen Type Ref Report Verification Range/Units 06/14/25 06/14/25 06/14/25 03:48 05:59 16:00 WBC (4.4-10.8) 10^3/uL 29.95 H* RBC (4.36-5.78) 10^6/uL 4.36 Hgb (13.5-17.5) g/dL 9.0 L Hct (40.0-50.0) % 29.8 L MCV (80-95) fL 68 L MCH (27.0-33.0) pg 20.6 L MCHC (32.0-36.0) % 30.2 L RDW (11.8-14.1) % 17.1 H Plt Count (130-400) 10^3/uL 410 H MPV (8.0-11.0) fL 10.2 Immature Gran % % 1.9 Neutrophils % % 84.4 Lymphocytes % % 6.9 Monocytes % % 6.3 Eosinophils % % 0.2 Basophils % % 0.3 Nucleated RBC % (0.0-0.3) % 0.1 Absolute Neutrophils (1.2-6.7) 10^3/uL 25.28 H Absolute Lymphocytes (1.2-3.4) 10^3/uL 2.07 Absolute Monocytes (0.1-0.8) 10^3/uL 1.89 H Absolute Eosinophils (0.0-0.7) 10^3/uL 0.06 Absolute Basophils (0.0-0.2) 10^3/uL 0.09 RBC Morphology See Below Polychromasia Hypochromasia Poikilocytosis Anisocytosis Microcytosis 2+ ABG Sample Site Right Radial ABG pH 7.35 ABG pCO2 36 ABG pO2 60 L ABG HCO3 20 L ABG Total CO2 19 L ABG O2 Saturation 89 L ABG Base Excess -6 L VBG pH (7.31-7.41) VBG pCO2 (41-51) mmHg VBG pO2 mmHg VBG HCO3 (23-28) mmol/L VBG Total CO2 (24-29) mmol/L VBG O2 Saturation % VBG Base Excess (-2-3) mmol/L VBG Lactate (<or=2.0) mmol/L Oxygen Liter Flow 15 FiO2 Sodium (136-145) mmol/L 136 Potassium (3.5-5.1) mmol/L 4.2 Chloride (98-107) mmol/L 101 Carbon Dioxide (21.0-32.0) mmol/L 22.4 Anion Gap (3-11) mmol/L 12.6 H BUN (7-18) mg/dL 44 H Creatinine (0.70-1.30) mg/dL 2.2 H Est GFR (CKD-EPI 2020) (mL/min/1.73m2) 31.05 Glucose (74-106) mg/dL 89 Calcium (8.5-10.1) mg/dL 8.8 Magnesium (1.8-2.4) mg/dL Iron (65-175) ug/dL TIBC (250-450) ug/dL Transferrin % Sat (20-55) % Total Bilirubin (0.2-1.0) mg/dL AST (15-37) U/L ALT (16-63) U/L Alkaline Phosphatase (46-116) U/L Troponin I (<or=76) ng/L NT-Pro-B Natriuret Pep (<300) pg/mL Total Protein (6.4-8.2) g/dL Albumin (3.4-5.0) g/dL Procalcitonin ng/mL Urine Color (Yellow) Urine Clarity (Clear) Urine pH (5-8) Ur Specific Hope (1.005-1.025) Urine Protein (Neg-Trace) mg/dL Urine Ketones (Negative) mg/dL Urine Blood (Negative) Urine Nitrite (Negative) Urine Bilirubin (Negative) Urine Urobilinogen (Up to 0.2) mg/dL Ur Leukocyte Esterase (Negative) Urine RBC (0-2) HPF Urine WBC (0-5) HPF Ur Epithelial Cells (Negative) HPF Urine Crystals (Negative) HPF Urine Bacteria (Negative) HPF Urine Casts (Negative) LPF Urine Mucus (Negative) Ur Culture Indicated? Urine Glucose (Negative) mg/dL BAL Neutrophils BAL Lymphocytes BAL Eosinophils BAL Basophils BAL Monocyte/Macrophage BAL Path Comment Random Vancomycin ug/mL Gram Stain COVID-19 Source SARS-CoV-2 (PCR) (Negative) Influenza Type A (PCR) (Negative) Influenza Type B (PCR) (Negative) Urine Legionella Ag (Negative) M. pneumoniae Interp Mycoplasma pneumon IgG (Negative) Mycoplasma pneumon IgM (Negative) M.pneumoniae IgM (IFA) (Negative) RSV (PCR) (Negative) MRSA (TEM-PCR) (Negative) Positive A Ur Strep pneumoniae Ag (Negative) TB Test Ag - Nil 1 IU/mL TB Test Ag - Nil 2 IU/mL TB Test (QFT) Interp (Negative) Aerobic Culture Add-On Test Request Ref Test Specimen Type Ref Report Verification Range/Units 06/14/25 06/15/25 06/16/25 23:35 08:04 05:57 WBC (4.4-10.8) 10^3/uL 21.80 H 13.77 H RBC (4.36-5.78) 10^6/uL 4.31 L 4.14 L Hgb (13.5-17.5) g/dL 8.8 L 8.8 L Hct (40.0-50.0) % 28.4 L 27.4 L MCV (80-95) fL 66 L 66 L MCH (27.0-33.0) pg 20.4 L 21.3 L MCHC (32.0-36.0) % 31.0 L 32.1 RDW (11.8-14.1) % 16.7 H 16.9 H Plt Count (130-400) 10^3/uL 355 359 MPV (8.0-11.0) fL 9.9 10.2 Immature Gran % % 0.4 Neutrophils % % 94.5 Lymphocytes % % 3.2 Monocytes % % 1.9 Eosinophils % % 0.0 Basophils % % 0.0 Nucleated RBC % (0.0-0.3) % 0.7 H Absolute Neutrophils (1.2-6.7) 10^3/uL 13.01 H Absolute Lymphocytes (1.2-3.4) 10^3/uL 0.44 L Absolute Monocytes (0.1-0.8) 10^3/uL 0.26 Absolute Eosinophils (0.0-0.7) 10^3/uL 0.00 Absolute Basophils (0.0-0.2) 10^3/uL 0.00 RBC Morphology Polychromasia Hypochromasia Poikilocytosis Anisocytosis Microcytosis ABG Sample Site ABG pH ABG pCO2 ABG pO2 ABG HCO3 ABG Total CO2 ABG O2 Saturation ABG Base Excess VBG pH (7.31-7.41) 7.34 VBG pCO2 (41-51) mmHg 38 L VBG pO2 mmHg 83 VBG HCO3 (23-28) mmol/L 21 L VBG Total CO2 (24-29) mmol/L 20 L VBG O2 Saturation % 97 VBG Base Excess (-2-3) mmol/L -5 L VBG Lactate (<or=2.0) mmol/L 0.8 Oxygen Liter Flow FiO2 Sodium (136-145) mmol/L 135 L 135 L Potassium (3.5-5.1) mmol/L 4.3 3.6 Chloride (98-107) mmol/L 101 101 Carbon Dioxide (21.0-32.0) mmol/L 24.7 27.5 Anion Gap (3-11) mmol/L 9.3 6.5 BUN (7-18) mg/dL 58 H 67 H Creatinine (0.70-1.30) mg/dL 2.2 H 2.2 H Est GFR (CKD-EPI 2020) (mL/min/1.73m2) 31.05 31.05 Glucose (74-106) mg/dL 161 H 164 H Calcium (8.5-10.1) mg/dL 9.1 9.0 Magnesium (1.8-2.4) mg/dL Iron (65-175) ug/dL TIBC (250-450) ug/dL Transferrin % Sat (20-55) % Total Bilirubin (0.2-1.0) mg/dL 0.9 0.8 AST (15-37) U/L 27 17 ALT (16-63) U/L 15 L 18 Alkaline Phosphatase (46-116) U/L 77 71 Troponin I (<or=76) ng/L NT-Pro-B Natriuret Pep (<300) pg/mL Total Protein (6.4-8.2) g/dL 7.0 7.3 Albumin (3.4-5.0) g/dL 2.5 L 2.8 L Procalcitonin ng/mL 44.60 Urine Color (Yellow) Urine Clarity (Clear) Urine pH (5-8) Ur Specific Hope (1.005-1.025) Urine Protein (Neg-Trace) mg/dL Urine Ketones (Negative) mg/dL Urine Blood (Negative) Urine Nitrite (Negative) Urine Bilirubin (Negative) Urine Urobilinogen (Up to 0.2) mg/dL Ur Leukocyte Esterase (Negative) Urine RBC (0-2) HPF Urine WBC (0-5) HPF Ur Epithelial Cells (Negative) HPF Urine Crystals (Negative) HPF Urine Bacteria (Negative) HPF Urine Casts (Negative) LPF Urine Mucus (Negative) Ur Culture Indicated? Urine Glucose (Negative) mg/dL BAL Neutrophils BAL Lymphocytes BAL Eosinophils BAL Basophils BAL Monocyte/Macrophage BAL Path Comment Random Vancomycin ug/mL Gram Stain COVID-19 Source SARS-CoV-2 (PCR) (Negative) Influenza Type A (PCR) (Negative) Influenza Type B (PCR) (Negative) Urine Legionella Ag (Negative) M. pneumoniae Interp See Comment Mycoplasma pneumon IgG (Negative) Positive A Mycoplasma pneumon IgM (Negative) Reactive A M.pneumoniae IgM (IFA) (Negative) Negative RSV (PCR) (Negative) MRSA (TEM-PCR) (Negative) Ur Strep pneumoniae Ag (Negative) TB Test Ag - Nil 1 IU/mL TB Test Ag - Nil 2 IU/mL TB Test (QFT) Interp (Negative) Aerobic Culture Add-On Test Request Ref Test Specimen Type Ref Report Verification Range/Units 06/16/25 06/17/25 06/17/25 11:48 05:50 11:55 WBC (4.4-10.8) 10^3/uL 17.17 H RBC (4.36-5.78) 10^6/uL 4.22 L Hgb (13.5-17.5) g/dL 8.8 L Hct (40.0-50.0) % 27.1 L MCV (80-95) fL 64 L MCH (27.0-33.0) pg 20.9 L MCHC (32.0-36.0) % 32.5 RDW (11.8-14.1) % 16.9 H Plt Count (130-400) 10^3/uL 376 MPV (8.0-11.0) fL 9.9 Immature Gran % % 0.8 Neutrophils % % 88.4 Lymphocytes % % 6.3 Monocytes % % 4.4 Eosinophils % % 0.0 Basophils % % 0.1 Nucleated RBC % (0.0-0.3) % 0.4 H Absolute Neutrophils (1.2-6.7) 10^3/uL 15.18 H Absolute Lymphocytes (1.2-3.4) 10^3/uL 1.08 L Absolute Monocytes (0.1-0.8) 10^3/uL 0.76 Absolute Eosinophils (0.0-0.7) 10^3/uL 0.00 Absolute Basophils (0.0-0.2) 10^3/uL 0.02 RBC Morphology Polychromasia Hypochromasia Poikilocytosis Anisocytosis Microcytosis ABG Sample Site ABG pH ABG pCO2 ABG pO2 ABG HCO3 ABG Total CO2 ABG O2 Saturation ABG Base Excess VBG pH (7.31-7.41) VBG pCO2 (41-51) mmHg VBG pO2 mmHg VBG HCO3 (23-28) mmol/L VBG Total CO2 (24-29) mmol/L VBG O2 Saturation % VBG Base Excess (-2-3) mmol/L VBG Lactate (<or=2.0) mmol/L 1.0 Oxygen Liter Flow FiO2 Sodium (136-145) mmol/L 142 Potassium (3.5-5.1) mmol/L 3.0 L Chloride (98-107) mmol/L 102 Carbon Dioxide (21.0-32.0) mmol/L 29.8 Anion Gap (3-11) mmol/L 10.2 BUN (7-18) mg/dL 65 H Creatinine (0.70-1.30) mg/dL 1.7 H Est GFR (CKD-EPI 2020) (mL/min/1.73m2) 42.30 Glucose (74-106) mg/dL 126 H Calcium (8.5-10.1) mg/dL 9.0 Magnesium (1.8-2.4) mg/dL 2.1 Iron (65-175) ug/dL 48 L TIBC (250-450) ug/dL 163 L Transferrin % Sat (20-55) % 29 Total Bilirubin (0.2-1.0) mg/dL 0.8 AST (15-37) U/L 12 L ALT (16-63) U/L 19 Alkaline Phosphatase (46-116) U/L 66 Troponin I (<or=76) ng/L NT-Pro-B Natriuret Pep (<300) pg/mL Total Protein (6.4-8.2) g/dL 7.0 Albumin (3.4-5.0) g/dL 2.7 L Procalcitonin ng/mL Urine Color (Yellow) Urine Clarity (Clear) Urine pH (5-8) Ur Specific Hope (1.005-1.025) Urine Protein (Neg-Trace) mg/dL Urine Ketones (Negative) mg/dL Urine Blood (Negative) Urine Nitrite (Negative) Urine Bilirubin (Negative) Urine Urobilinogen (Up to 0.2) mg/dL Ur Leukocyte Esterase (Negative) Urine RBC (0-2) HPF Urine WBC (0-5) HPF Ur Epithelial Cells (Negative) HPF Urine Crystals (Negative) HPF Urine Bacteria (Negative) HPF Urine Casts (Negative) LPF Urine Mucus (Negative) Ur Culture Indicated? Urine Glucose (Negative) mg/dL BAL Neutrophils Not Applicable BAL Lymphocytes Not Applicable BAL Eosinophils Not Applicable BAL Basophils Not Applicable BAL Monocyte/Macrophage Not Applicable BAL Path Comment See Comment Random Vancomycin ug/mL Gram Stain No Neutrophils Seen COVID-19 Source SARS-CoV-2 (PCR) (Negative) Influenza Type A (PCR) (Negative) Influenza Type B (PCR) (Negative) Urine Legionella Ag (Negative) Positive A M. pneumoniae Interp Mycoplasma pneumon IgG (Negative) Mycoplasma pneumon IgM (Negative) M.pneumoniae IgM (IFA) (Negative) RSV (PCR) (Negative) MRSA (TEM-PCR) (Negative) Ur Strep pneumoniae Ag (Negative) Negative TB Test Ag - Nil 1 IU/mL TB Test Ag - Nil 2 IU/mL TB Test (QFT) Interp (Negative) Aerobic Culture SEE BELOW Add-On Test Request Ref Test Specimen Type Not Applicable Ref Report Verification Not Applicable Range/Units 06/17/25 06/18/25 06/19/25 12:32 06:00 06:50 WBC (4.4-10.8) 10^3/uL 14.79 H RBC (4.36-5.78) 10^6/uL 4.18 L Hgb (13.5-17.5) g/dL 8.8 L Hct (40.0-50.0) % 27.0 L MCV (80-95) fL 65 L MCH (27.0-33.0) pg 21.1 L MCHC (32.0-36.0) % 32.6 RDW (11.8-14.1) % 16.9 H Plt Count (130-400) 10^3/uL 380 MPV (8.0-11.0) fL 10.0 Immature Gran % % 0.9 Neutrophils % % 79.5 Lymphocytes % % 12.2 Monocytes % % 6.5 Eosinophils % % 0.8 Basophils % % 0.1 Nucleated RBC % (0.0-0.3) % 0.2 Absolute Neutrophils (1.2-6.7) 10^3/uL 11.76 H Absolute Lymphocytes (1.2-3.4) 10^3/uL 1.80 Absolute Monocytes (0.1-0.8) 10^3/uL 0.96 H Absolute Eosinophils (0.0-0.7) 10^3/uL 0.12 Absolute Basophils (0.0-0.2) 10^3/uL 0.01 RBC Morphology Polychromasia Hypochromasia Poikilocytosis Anisocytosis Microcytosis ABG Sample Site ABG pH ABG pCO2 ABG pO2 ABG HCO3 ABG Total CO2 ABG O2 Saturation ABG Base Excess VBG pH (7.31-7.41) VBG pCO2 (41-51) mmHg VBG pO2 mmHg VBG HCO3 (23-28) mmol/L VBG Total CO2 (24-29) mmol/L VBG O2 Saturation % VBG Base Excess (-2-3) mmol/L VBG Lactate (<or=2.0) mmol/L 1.0 Oxygen Liter Flow FiO2 Sodium (136-145) mmol/L 140 138 Potassium (3.5-5.1) mmol/L 3.2 L 4.2 D Chloride (98-107) mmol/L 102 104 Carbon Dioxide (21.0-32.0) mmol/L 27.6 26.1 Anion Gap (3-11) mmol/L 10.4 7.9 BUN (7-18) mg/dL 54 H 52 H Creatinine (0.70-1.30) mg/dL 1.7 H 1.7 H Est GFR (CKD-EPI 2020) (mL/min/1.73m2) 42.30 42.30 Glucose (74-106) mg/dL 121 H 96 Calcium (8.5-10.1) mg/dL 8.7 9.0 Magnesium (1.8-2.4) mg/dL 1.9 Iron (65-175) ug/dL TIBC (250-450) ug/dL Transferrin % Sat (20-55) % Total Bilirubin (0.2-1.0) mg/dL 0.9 AST (15-37) U/L 10 L ALT (16-63) U/L 17 Alkaline Phosphatase (46-116) U/L 62 Troponin I (<or=76) ng/L NT-Pro-B Natriuret Pep (<300) pg/mL Total Protein (6.4-8.2) g/dL 6.6 Albumin (3.4-5.0) g/dL 2.6 L Procalcitonin ng/mL Urine Color (Yellow) Urine Clarity (Clear) Urine pH (5-8) Ur Specific Hope (1.005-1.025) Urine Protein (Neg-Trace) mg/dL Urine Ketones (Negative) mg/dL Urine Blood (Negative) Urine Nitrite (Negative) Urine Bilirubin (Negative) Urine Urobilinogen (Up to 0.2) mg/dL Ur Leukocyte Esterase (Negative) Urine RBC (0-2) HPF Urine WBC (0-5) HPF Ur Epithelial Cells (Negative) HPF Urine Crystals (Negative) HPF Urine Bacteria (Negative) HPF Urine Casts (Negative) LPF Urine Mucus (Negative) Ur Culture Indicated? Urine Glucose (Negative) mg/dL BAL Neutrophils BAL Lymphocytes BAL Eosinophils BAL Basophils BAL Monocyte/Macrophage BAL Path Comment Random Vancomycin ug/mL 9.5 Gram Stain COVID-19 Source SARS-CoV-2 (PCR) (Negative) Influenza Type A (PCR) (Negative) Influenza Type B (PCR) (Negative) Urine Legionella Ag (Negative) M. pneumoniae Interp Mycoplasma pneumon IgG (Negative) Mycoplasma pneumon IgM (Negative) M.pneumoniae IgM (IFA) (Negative) RSV (PCR) (Negative) MRSA (TEM-PCR) (Negative) Ur Strep pneumoniae Ag (Negative) TB Test Ag - Nil 1 IU/mL TB Test Ag - Nil 2 IU/mL TB Test (QFT) Interp (Negative) Aerobic Culture Add-On Test Request DONE Ref Test Specimen Type Ref Report Verification Range/Units 06/20/25 06/21/25 06/21/25 07:00 11:45 15:30 WBC (4.4-10.8) 10^3/uL 17.98 H 18.51 H RBC (4.36-5.78) 10^6/uL 4.12 L 4.03 L Hgb (13.5-17.5) g/dL 8.5 L 8.3 L Hct (40.0-50.0) % 26.9 L 26.6 L MCV (80-95) fL 65 L 66 L MCH (27.0-33.0) pg 20.6 L 20.6 L MCHC (32.0-36.0) % 31.6 L 31.2 L RDW (11.8-14.1) % 17.6 H 17.5 H Plt Count (130-400) 10^3/uL 491 H 539 H MPV (8.0-11.0) fL 9.9 9.4 Immature Gran % % 4.3 Neutrophils % % 86.5 Lymphocytes % % 5.6 Monocytes % % 2.4 Eosinophils % % 1.0 Basophils % % 0.2 Nucleated RBC % (0.0-0.3) % 0.2 Absolute Neutrophils (1.2-6.7) 10^3/uL 16.01 H Absolute Lymphocytes (1.2-3.4) 10^3/uL 1.04 L Absolute Monocytes (0.1-0.8) 10^3/uL 0.44 Absolute Eosinophils (0.0-0.7) 10^3/uL 0.19 Absolute Basophils (0.0-0.2) 10^3/uL 0.04 RBC Morphology See Below Polychromasia Present Hypochromasia 1+ Poikilocytosis 2+ Anisocytosis 1+ Microcytosis 2+ ABG Sample Site ABG pH ABG pCO2 ABG pO2 ABG HCO3 ABG Total CO2 ABG O2 Saturation ABG Base Excess VBG pH (7.31-7.41) VBG pCO2 (41-51) mmHg VBG pO2 mmHg VBG HCO3 (23-28) mmol/L VBG Total CO2 (24-29) mmol/L VBG O2 Saturation % VBG Base Excess (-2-3) mmol/L VBG Lactate (<or=2.0) mmol/L Oxygen Liter Flow FiO2 Sodium (136-145) mmol/L 140 Potassium (3.5-5.1) mmol/L 3.5 Chloride (98-107) mmol/L 106 Carbon Dioxide (21.0-32.0) mmol/L 25.7 Anion Gap (3-11) mmol/L 8.3 BUN (7-18) mg/dL 48 H Creatinine (0.70-1.30) mg/dL 1.7 H Est GFR (CKD-EPI 2020) (mL/min/1.73m2) 42.30 Glucose (74-106) mg/dL 112 H Calcium (8.5-10.1) mg/dL 8.7 Magnesium (1.8-2.4) mg/dL Iron (65-175) ug/dL TIBC (250-450) ug/dL Transferrin % Sat (20-55) % Total Bilirubin (0.2-1.0) mg/dL AST (15-37) U/L ALT (16-63) U/L Alkaline Phosphatase (46-116) U/L Troponin I (<or=76) ng/L NT-Pro-B Natriuret Pep (<300) pg/mL Total Protein (6.4-8.2) g/dL Albumin (3.4-5.0) g/dL Procalcitonin ng/mL 0.65 Urine Color (Yellow) Urine Clarity (Clear) Urine pH (5-8) Ur Specific Hope (1.005-1.025) Urine Protein (Neg-Trace) mg/dL Urine Ketones (Negative) mg/dL Urine Blood (Negative) Urine Nitrite (Negative) Urine Bilirubin (Negative) Urine Urobilinogen (Up to 0.2) mg/dL Ur Leukocyte Esterase (Negative) Urine RBC (0-2) HPF Urine WBC (0-5) HPF Ur Epithelial Cells (Negative) HPF Urine Crystals (Negative) HPF Urine Bacteria (Negative) HPF Urine Casts (Negative) LPF Urine Mucus (Negative) Ur Culture Indicated? Urine Glucose (Negative) mg/dL BAL Neutrophils BAL Lymphocytes BAL Eosinophils BAL Basophils BAL Monocyte/Macrophage BAL Path Comment Random Vancomycin ug/mL Gram Stain COVID-19 Source SARS-CoV-2 (PCR) (Negative) Influenza Type A (PCR) (Negative) Influenza Type B (PCR) (Negative) Urine Legionella Ag (Negative) M. pneumoniae Interp Mycoplasma pneumon IgG (Negative) Mycoplasma pneumon IgM (Negative) M.pneumoniae IgM (IFA) (Negative) RSV (PCR) (Negative) MRSA (TEM-PCR) (Negative) Ur Strep pneumoniae Ag (Negative) TB Test Ag - Nil 1 IU/mL TB Test Ag - Nil 2 IU/mL TB Test (QFT) Interp (Negative) Aerobic Culture Add-On Test Request Ref Test Specimen Type Ref Report Verification Range/Units 06/22/25 06/23/25 06:08 05:59 WBC (4.4-10.8) 10^3/uL 15.26 H RBC (4.36-5.78) 10^6/uL 4.09 L Hgb (13.5-17.5) g/dL 8.4 L Hct (40.0-50.0) % 26.9 L MCV (80-95) fL 66 L MCH (27.0-33.0) pg 20.5 L MCHC (32.0-36.0) % 31.2 L RDW (11.8-14.1) % 17.6 H Plt Count (130-400) 10^3/uL 662 H MPV (8.0-11.0) fL 9.3 Immature Gran % % 5.7 Neutrophils % % 67.9 Lymphocytes % % 19.8 Monocytes % % 5.7 Eosinophils % % 0.7 Basophils % % 0.2 Nucleated RBC % (0.0-0.3) % 0.3 Absolute Neutrophils (1.2-6.7) 10^3/uL 10.36 H Absolute Lymphocytes (1.2-3.4) 10^3/uL 3.02 Absolute Monocytes (0.1-0.8) 10^3/uL 0.87 H Absolute Eosinophils (0.0-0.7) 10^3/uL 0.11 Absolute Basophils (0.0-0.2) 10^3/uL 0.03 RBC Morphology Polychromasia Hypochromasia Poikilocytosis Anisocytosis Microcytosis ABG Sample Site ABG pH ABG pCO2 ABG pO2 ABG HCO3 ABG Total CO2 ABG O2 Saturation ABG Base Excess VBG pH (7.31-7.41) VBG pCO2 (41-51) mmHg VBG pO2 mmHg VBG HCO3 (23-28) mmol/L VBG Total CO2 (24-29) mmol/L VBG O2 Saturation % VBG Base Excess (-2-3) mmol/L VBG Lactate (<or=2.0) mmol/L Oxygen Liter Flow FiO2 Sodium (136-145) mmol/L 141 Potassium (3.5-5.1) mmol/L 3.8 Chloride (98-107) mmol/L 106 Carbon Dioxide (21.0-32.0) mmol/L 26.1 Anion Gap (3-11) mmol/L 8.9 BUN (7-18) mg/dL 44 H Creatinine (0.70-1.30) mg/dL 1.6 H Est GFR (CKD-EPI 2020) (mL/min/1.73m2) 45.50 Glucose (74-106) mg/dL 94 Calcium (8.5-10.1) mg/dL 8.8 Magnesium (1.8-2.4) mg/dL Iron (65-175) ug/dL TIBC (250-450) ug/dL Transferrin % Sat (20-55) % Total Bilirubin (0.2-1.0) mg/dL AST (15-37) U/L ALT (16-63) U/L Alkaline Phosphatase (46-116) U/L Troponin I (<or=76) ng/L NT-Pro-B Natriuret Pep (<300) pg/mL Total Protein (6.4-8.2) g/dL Albumin (3.4-5.0) g/dL Procalcitonin ng/mL Urine Color (Yellow) Urine Clarity (Clear) Urine pH (5-8) Ur Specific Hope (1.005-1.025) Urine Protein (Neg-Trace) mg/dL Urine Ketones (Negative) mg/dL Urine Blood (Negative) Urine Nitrite (Negative) Urine Bilirubin (Negative) Urine Urobilinogen (Up to 0.2) mg/dL Ur Leukocyte Esterase (Negative) Urine RBC (0-2) HPF Urine WBC (0-5) HPF Ur Epithelial Cells (Negative) HPF Urine Crystals (Negative) HPF Urine Bacteria (Negative) HPF Urine Casts (Negative) LPF Urine Mucus (Negative) Ur Culture Indicated? Urine Glucose (Negative) mg/dL BAL Neutrophils BAL Lymphocytes BAL Eosinophils BAL Basophils BAL Monocyte/Macrophage BAL Path Comment Random Vancomycin ug/mL Gram Stain COVID-19 Source SARS-CoV-2 (PCR) (Negative) Influenza Type A (PCR) (Negative) Influenza Type B (PCR) (Negative) Urine Legionella Ag (Negative) M. pneumoniae Interp Mycoplasma pneumon IgG (Negative) Mycoplasma pneumon IgM (Negative) M.pneumoniae IgM (IFA) (Negative) RSV (PCR) (Negative) MRSA (TEM-PCR) (Negative) Ur Strep pneumoniae Ag (Negative) TB Test Ag - Nil 1 IU/mL TB Test Ag - Nil 2 IU/mL TB Test (QFT) Interp (Negative) Aerobic Culture Add-On Test Request Ref Test Specimen Type Ref Report Verification POCUS Pulmonology Limited thoracic lung Exam DATE OF EXAM: 06/23/25 TIME OF EXAM: 07:30 PROVIDER THAT PERFORMED THE STUDY: Wiliam Swain IS THIS A REPEAT STUDY: No REASON FOR EXAM: Pneumonia Visualized structures: right lateral and right posterior PERTINENT FINDINGS/IMPRESSION: Present Other (Small/trace right pleural effusion. No septations) impression: Small/trace right pleural effusion. No septations Exam complete
[2025-06-23] MEDS: predniSONE 10 MG TAB 30 MG PO (08:07)
[2025-06-23] MEDS: Ipratropium/Albuterol 4 GM 120 PUFF INH IH (08:10)
--- NOTE | 2025-06-23 08:15 | PUCON_ITS ---
General Date Of Service Date of service: 06/23/25 Time of Service: 08:00 Requesting physician: Kayode Rangel Reason for Consult: Respiratory failure Recommendations: Assessment: 1. Acute on chronic hypoxemic respiratory failure - ddx: COPD exacerbation vs pulmonary edema. Well score low probability for PE. Improved 2. COPD exacerbation 3. Chronic hypercapnic respiratory failure - due to underlying COPD - baseline Co2~60 - Intolerant to NIV 4. Pulmonary nodules - multiple small nodules - stable from 02/2023 to 11/2024 Recommendations: 1. Continue prednisone PFSH All Active Problems Anemia, chronic disease (Acute) Distended abdomen (Acute) Lung mass (Acute) Acute kidney injury superimposed on stage 3a chronic kidney disease (Acute) Severe sepsis (Acute) Sepsis (Acute) CARLOS MANUEL (acute kidney injury) (Acute) Acute exacerbation of chronic obstructive pulmonary disease (Acute) Acute exacerbation of chronic heart failure (Acute) DNR (do not resuscitate) (Acute) As of 05/13/2025: Code status frequently changing. As of 05/13/2025: DNR, +trial of intubation, transfer and treat. Palliative care patient (Acute) Advanced care planning/counseling discussion (Acute) Anxiety (Chronic) Deficit in activities of daily living (ADL) (Acute) GERD (gastroesophageal reflux disease) (Chronic) Atrial fibrillation (Chronic) Steroid dependence (Chronic) Acute exacerbation of CHF (congestive heart failure) (Acute) Lung nodule (Acute) BPH w urinary obs/LUTS (Acute) Microcytic anemia (Chronic) UTI (urinary tract infection) (Acute) Presence of stent in coronary artery in patient with coronary artery disease (Chronic) Diastolic CHF (Chronic) Pneumonia (Acute) Medical History Palliative care encounter ACP (advance care planning) Encounter for hospice care discussion Housing insecurity Financial difficulties Dyspnea Acute exacerbation of chronic obstructive pulmonary disease HTN (hypertension) Chronic renal failure Non-STEMI (non-ST elevated myocardial infarction) History of tobacco use Hypospadias Chronic kidney disease, stage 3 Peripheral arterial occlusive disease Constipation Depression Lower urinary tract symptoms (LUTS) Exertional dyspnea Pulmonary hypertension due to left heart disease Coronary artery disease Diastolic heart failure Lower back pain Dysuria Heartburn Screening for colon cancer Nocturia Urinary frequency Prediabetes Hypoxemia Multiple pulmonary nodules Lumbar back pain with radiculopathy affecting lower extremity Former smoker Congestion of nasal sinus CKD (chronic kidney disease) CHF (congestive heart failure) Alcoholism in recovery Hypospadias in male COPD (chronic obstructive pulmonary disease) Hyperlipidemia Essential hypertension Surgical History History of phacoemulsification of cataract of both eyes with intraocular lens implantation History of tonsillectomy Family History Father Throat cancer Heart disease Myocardial infarction Brother Heart disease Status post coronary stents Social History Smoking/Tobacco Use Status: Former Tobacco Use Quit Date: 01/11/17 Smoking risk assessment performed?: Yes Alcohol Intake: former Year quit: 2016 Details: Former alcoholic up to 2 cases of gin per month Drug use: Never Substance use type: does not use Housing: assisted living facility Number of Children: 0 Pets and animals: Yes Pets and animals: dog(s) What is your relationship status?: Panel score (0-1 are the most socially isolated patients): 1 Do you feel safe at home: Yes Do you feel safe in your relationship?: Yes Visit Medication and Allergies Active Medications Generic Name Dose Route Start Last Admin Trade Name Freq PRN Reason Stop Dose Admin Acetaminophen 650 mg 06/13/25 12:22 06/19/25 01:09 Acetaminophen 325 Mg Tab PO 650 mg Q4H PRN PRN Administration Al Hydrox/Mg Hydrox/Simethicone 30 ml 06/13/25 12:22 Mylanta Suspension 30 Ml Cup PO Q2H PRN PRN Albuterol Sulfate 2 puff 06/13/25 14:06 06/23/25 06:13 Albuterol Hfa 8 Gm 60 Puff Inh IH 2 inh Q4H PRN PRN Administration Albuterol/Ipratropium 3 ml 06/14/25 00:32 06/16/25 06:21 Albuterol/Ipratropium 3 Ml Upd Vial UPD 3 ml Q4H PRN PRN Administration Apixaban 5 mg 06/18/25 20:00 06/23/25 07:37 Apixaban 5 Mg Tab PO 5 mg BID MAIA Administration Budesonide/Formoterol Fumarate 2 puff 06/23/25 08:09 Budesonide/Formoterol 160/4.5 6 Gm 60 Puff Inh IH 06/23/25 08:10 NOW ONE Carvedilol 25 mg 06/17/25 08:30 06/23/25 07:36 Carvedilol 25 Mg Tab PO 25 mg BID MAIA Administration Darbepoetin Gregorio 60 mcg 06/22/25 16:00 06/22/25 17:23 Darbepoetin 60 Mcg Syr SC 60 mcg TODAY MAIA Administration Diltiazem HCl 30 mg 06/19/25 20:00 06/23/25 07:36 Diltiazem 30 Mg Tab PO 30 mg TID [facility] Administration Docusate Sodium 100 mg 06/13/25 20:00 06/23/25 07:38 Docusate Sodium 100 Mg/10 Ml Cup PO Not Given TID [facility] Guaifenesin 600 mg 06/13/25 20:00 06/23/25 07:36 Guaifenesin 600 Mg Tabcr PO 600 mg BID MAIA Administration Hydroxyzine HCl 10 mg 06/16/25 09:11 06/16/25 20:45 Hydroxyzine Hcl 10 Mg Tab PO 10 mg TID PRN PRN Administration Azithromycin 250 mg/ Sodium 250 mls @ 250 mls/hr 06/14/25 10:00 06/22/25 12:40 Chloride IVPB Infused Q24H [facility] Infusion Piperacillin Sod/Tazobactam 50 mls @ 12.5 mls/hr 06/17/25 08:30 06/23/25 07:39 Sod 3.375 gm/ Sodium Chloride IVPB 12.5 mls/hr Q8H [facility] Administration IV Miscellaneous Supplies 1 each 06/13/25 12:22 Iv Access IV DIRECTED [facility] Lidocaine HCl 30 ml 06/16/25 09:00 Lidocaine 2% Viscous 15 Ml Cup PO DIRECTED [facility] Lidocaine HCl 10 ml 06/16/25 08:45 Lidocaine 1% Multi-Dose 20 Ml Vial IJ DIRECTED [facility] Lidocaine HCl 6 ml 06/16/25 08:45 Lidocaine 2% Multi-Dose 20 Ml Vial IJ DIRECTED [facility] Lisinopril 2.5 mg 06/17/25 08:30 06/23/25 07:36 Lisinopril 2.5 Mg Tab PO 2.5 mg DAILY MAIA Administration Lorazepam 0.5 mg 06/13/25 22:16 06/18/25 11:47 Lorazepam 0.5 Mg Tab PO 0.5 mg Q4H PRN PRN Administration Morphine Sulfate 2 mg 06/14/25 01:07 06/18/25 07:49 Morphine 2 Mg/Ml Syr IVP 2 mg Q2H PRN PRN Administration Nicotine 21 mg 06/14/25 08:30 06/23/25 07:38 Nicotine 21 Mg/24 Hr Patch TD 21 mg DAILY MAIA Administration Oxycodone HCl 5 - 10 mg 06/18/25 14:24 06/18/25 20:50 Oxycodone 5 Mg Tab PO 5 mg Q4H PRN PRN Administration Pantoprazole Sodium 40 mg 06/14/25 07:30 06/23/25 07:37 Pantoprazole 40 Mg Tabcr PO 40 mg DAILY@0730 MAIA Administration Polyethylene Glycol 17 gm 06/13/25 12:22 Polyethylene Glycol 3350 17 Gm Packet PO DAILY PRN PRN Constipation Prednisone 10 mg 06/23/25 08:30 Prednisone 10 Mg Tab PO DAILY MAIA Sodium Chloride 0 ml 06/13/25 12:22 06/19/25 00:23 Normal Saline Flush 10 Ml Syr IVP 10 ml PRN PRN Administration Sodium Chloride 0 ml 06/13/25 20:00 06/23/25 07:37 Normal Saline Flush 10 Ml Syr IVP 40 ml BID MAIA Administration Sodium Chloride 0 ml 06/13/25 12:22 Normal Saline 10 Ml Vial IJ DIRECTED PRN Torsemide 20 mg 06/20/25 08:30 06/23/25 07:36 Torsemide 20 Mg Tab PO 20 mg DAILY MAIA Administration Venlafaxine HCl 75 mg 06/14/25 08:30 06/23/25 07:36 Venlafaxine 75 Mg Capcr PO 75 mg DAILY MAIA Administration Allergies lisinopril Adverse Reaction (Unknown, Unverified 05/03/25 02:05) low BP, worsening CKD codeine phosphate (From Tylenol-Codeine) Adverse Reaction (Unverified 05/03/25 02:05) constipation Results Last Vital Signs Temp 36.6 C 06/23/25 08:04 Pulse 72 06/23/25 08:04 Resp 18 06/23/25 08:04 BP 120/64 06/23/25 08:04 Pulse Ox 93 08/11/25 08:04 Labs 06/23/25 05:59 06/22/25 06:08 Labs: Laboratory Results - last 24 hr 06/23/25 05:59 WBC 15.26 H RBC 4.09 L Hgb 8.4 L Hct 26.9 L MCV 66 L MCH 20.5 L MCHC 31.2 L RDW 17.6 H Plt Count 662 H MPV 9.3 Immature Gran % 5.7 Neutrophils % 67.9 Lymphocytes % 19.8 Monocytes % 5.7 Eosinophils % 0.7 Basophils % 0.2 Nucleated RBC % 0.3 Absolute Neutrophils 10.36 H Absolute Lymphocytes 3.02 Absolute Monocytes 0.87 H Absolute Eosinophils 0.11 Absolute Basophils 0.03
[2025-06-23] MEDS: predniSONE 10 MG TAB PO (08:47)
--- NOTE | 2025-06-23 08:56 | NUR.NOTE ---
Access chart to reconcile EKG orders with EKG's in [facility]. 1 active order for unread EKG. Nursing Note:
--- NOTE | 2025-06-23 09:01 | PDOC.CMPRO ---
Date of service: 06/23/25 Time of Service: 09:02 Care Management Progress Note Progress Note Text Progress Note Text: Elroy was sitting on the side of the bed when CM met with him. He was in good spirits but was concerned about some paperwork he needed from his room at [facility]. CM coordinasted the retrieval of his papers to enable Elroy to work on some of his legal and medical issues surrounding detention Medicaid application. Elroy was very appreciative. CM will assist as needed. Clinically Elroy continues to slowly improve. His breathing seems to be worse in themorning but he is consistently using his IC+S and acapella. CM will follow. Discharge Potential Discharge Needs: Other (SNF) Anticipated Barriers to Discharge: Medical Status Patient/Family Education Needs: Review discharge instructions, discuss Ask Me Three Transportation: RCT Plan: Anticipate Elroy will be transferred back to [facility] when medically cleared. He will follow up with his facility providers and plan of care and transport via RCT. CM will continue to support discharge planning. Social Determinants of Health Screening Will the Patient Participate in the Screening?: Declined to provide Do you worry about having a steady place to live?: no In the past 12 months, have you had to go without electric, gas, oil or water in your home?: no Comments: lives in a rehab facility
[2025-06-23] MEDS: Budesonide/Formoterol 160/4.5 6 GM 60 PUFF INH IH ×2 (09:57→19:33)
[2025-06-23] MEDS: AZITHROMYCIN 250 MG in Normal Saline 250 ML IVPB ×2 (10:31→11:58)
--- NOTE | 2025-06-23 12:39 | INPN_ITS ---
PT Notes Visit Reasons: Severe Sepsis, Hypoxic Resp Fail Pneumonia,CHF [facility] Progress Note Date: 06/23/2025 Dates of Service: 06/15/2025 - 06/22/2025 PRECAUTIONS: Activity as tolerated. Fall. Droplet and contact precautions. SUBJECTIVE: Patient reports he has a difficult time with morning as he is recovering from the night and morning routine. He requests sessions to occur as this 1 did later in the morning or only in the afternoon. Patient agreeable to having session prior to lunch and then in the afternoon. Patient reports he is feeling a little better but remains tired and short of breath and remains frustrated by how short of breath he gets from the littlest of activity. OBJECTIVE PAIN: Left hip and lateral thigh BED MOBILITY/TRANSFERS Rolling L/R: Independent Supine-sit: Independent Sit-supine: Independent Sit-stand: Independent Stand-sit: Independent Bed-Chair: Supervision with FWW when chair is within 5 feet Chair-bed: Supervision with FWW when chair is within 5 feet GAIT Assistive Device: FWW Weight bearing: As tolerated Assist: SBA with cues for FWW management and breath control Distance: 8 feet Deviation: Increased weightbearing through bilateral upper extremities during weightbearing through left lower extremity VITALS: O2 sats throughout session on room air remain greater than 88% THEREX: Supine heel slides, ankle pumps, glutes sets, quad sets; seated long arc quads marching ankle pumps 10 reps BLE STAIRS: Not applicable AM-PAC 6 clicks basic mobility inpatient Short form: 16 indicating 54.16% deficit ASSESSMENT: Patient is a 74 year old male referred to physical therapy services in acute care setting, where he is being managed for pneumonia, sepsis, COPD exacerbation and CHF exacerbation. Patient currently is on negative pressure room precautions for workup of TB. Patient presents with mobility impairments related to acute illness, with decreased activity tolerance and general strength. He does have baseline limitations in activity tolerance, and does not tolerate community distances. He's been at [facility] for some time and will return for LTC. His AM-PAC score is just above cut off for discharge to community, however, despite his relative independence with transfers, his activity tolerance does not support discharge to community. Recommend return to [facility] once medically stable with resumption of rehab services to maximize functional mobility following acute illness. He currently demonstrates the following impairment level findings: 1. decreased UE strength 2. decreased LE strength 3. decreased activity tolerance (ambulates up to 8' with FWW) 4. decreased independence with ambulation 5. Pain left hip and thigh Impairments are contributing to the following functional limitations: 1. unable to tolerate household or community distance ambulation 2. unable to stand > 90 seconds Patient is assessed as a Low 62024 complexity based on the following: History: Paul is a 74-year-old male seen in acute care setting where he is being managed for respiratory issues. He presents with acute on chronic mobility issues, with severe limitations in activity tolerance and independent mobility. Examination: As above Presentation: Evolving Decision Making: Low complexity Goals: Goals X1 week 1. Supine-Sit : supervision[goal met patient independent] 2. Sit-Supine : supervision [goal met patient independent] 3. Sit-Stand : supervision [goal met patient independent] 4. Stand-Sit : supervision [goal met patient independent] 5. Bed-Chair : supervision with FWW goal met goal updated below #8] 6. Chair-Bed supervision with FWW[goal met goal updated #8] 7. Gait supervision with FWW x 50' [goal not met continue this goal] 8. Patient will perform bed to/from chair transfers independently with FWW at a distance less than 5 feet PLAN OF CARE/TREATMENT PLAN: 1-2x/day, 7 days/ week x 1 week Plan of care has been reviewed with the [employer] providing the service under Physical therapy direction. Initiate physical therapy intervention for strengthening, gait, functional activity tolerance, balance training, use of assistive device. DISCHARGE RECOMMENDATIONS: Return to SNF with continued PT when medically appropriate TREATMENT CODE/TIME: 44211/1115?1146
--- NOTE | 2025-06-23 13:25 | PT.INTREAT ---
PT Notes Visit Reasons: Severe Sepsis, Hypoxic Resp Fail Pneumonia,CHF [facility] Treatment Note [facility] Date: 06/23/2025 PRECAUTIONS: Activity as tolerated. Fall. Droplet and contact precautions. SUBJECTIVE: Paul again requested to have his morning sessions closure to lunch time because he is so short of breath earlier in the morning. OBJECTIVE: ? PAIN: left hip and thigh with weightbearing ??Therapeutic Exercises (42960s to): Direct one-on-one instruction in therapeutic exercises to develop strength, endurance, range of motion and flexibility. ? ? BED MOBILITY/TRANSFERS? Supine-sit: independent? Sit-supine: independent ? Sit-stand: independent? Stand-sit: independent ? Bed-commode : independent with FWW via stand pivot ? GAIT? Assistive Device: FWW? Weight bearing: AT Assist: SBA, assist for management of lines ? Distance:? 8 feet' ?x3 ? Deviation: slow, cautious ambulation. Cues for FWW placement (tends to push walker ahead, requiring trunk flexion). Cues for pacing and breathing throughout Today's session consisted of ambulation chair to /from commode and then chair to bed for improved activity tolerance. He struggles to tolerate, with RPE 7 post transfer to from commode then RPE of 8 with chair to bed at end of session. Requires standing x 30 seconds prior to ambulation due to MONTIEL. Recovers in chair to normalized breathing patterns, patient utilizes propping on elbows on his over bed table to normalize breathing pattern ? ASSESSMENT:? pt with slightly improved activity tolerance today as evident by his ability to amb 3 trials this session, but improving safety and independence. PLAN: Continue PT intervention to maximize activity tolerance and safety. TREATMENT CODE/TIME: 82254/1248?1315 DISCHARGE RECOMMENDATION: Return to SNF with continued PT to improve activity tolerance when medically appropriate
[2025-06-23] MEDS: LORazepam 0.5 MG TAB PO (15:46)
--- NOTE | 2025-06-23 16:11 | PGE_ITS ---
Date of Service Date of service: 06/23/25 Time of Service: 09:00 Assessment and Plan Assessment and plan (1) Legionella pneumonia: Status: Acute Assessment and plan: RUL on admission CT, associated with severe sepsis physiology, which resolved. 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 Risk for TB and anearobes, he will remain on pip/tazo and azithro and respirat ory precautions. Initial guidance from [facility] was three AFB smears, but after discussion with Dr. Swain he and I both feel comfortable this is not TB as long as AFB from BAL negative. I discussed with [facility] 06/20 and they agreed. BAL studies still pending (called lab 06/21), per lab expect 06/22. D/w Dr. Swain 06/21, repeat CT chest and procal. Big drop in procal, so continue same antibiotics. No abscess, but some pleural fluid collecting. Brynn to consider pleuracentesis 06/23. June 23: new small right pleural effusion, no plan for thoracentesis at this time. No plan for pleurocentesis at this time. (2) Acute exacerbation of chronic heart failure: Status: Acute Assessment and plan: Back on home torsemide, fluid status appears stable. (3) Acute exacerbation of chronic obstructive pulmonary disease: Status: Acute Assessment and plan: Being treated with prednisone, chronic inhalers, nebs PRN. Will need slow taper given chronic prednisolone use (admission dose 10mg). Cut to 30mg as he has been here 9 days. (4) Acute kidney injury superimposed on stage 3a chronic kidney disease: Status: Acute Assessment and plan: Improved to near baseline, Cr down slightly 06/22 even after second contrast study on 06/21 (5) Atrial fibrillation: Status: Chronic Assessment and plan: Afib/flutter off/on, mostly aflutter with 4:1 block. Rates are coming down as illness treated. (6) Anemia, chronic disease: Status: Acute Assessment and plan: stable confirmed tranferrin saturation >20% though iron low, c/w chronic disease/CKD. H/o normal electrophoresis (no thalasemmia) EPO candidate, give a dose of aranesp as increasing h/h may help his respiratory status Subjective Subjective Interval history since last seen: Mr. Guzmán is resting comfortably. He remains isolated for TB ruleout, with known Legionella pneumonitis. Some chest pressure, noted pneumonitis on imaging. Exam Narrative Exam Narrative: General: This is a pleasant man in no acute distress, in respiratory isolation HEENT: Normocephalic, atraumatic CV: RRR Resp: Diminished lower right breath sounds, otherwise CTAB Abd: NTND MSK: voluntary motion x4 Neuro: Awake, alert, no focal deficits Objective Last Vital Signs Temp 36.9 C 06/23/25 15:35 Pulse 75 06/23/25 15:35 Resp 22 06/23/25 15:35 BP 163/69 H 06/23/25 15:35 Pulse Ox 92 06/23/25 15:44 Laboratory Results - last 24 hr 06/23/25 05:59 WBC 15.26 H RBC 4.09 L Hgb 8.4 L Hct 26.9 L MCV 66 L MCH 20.5 L MCHC 31.2 L RDW 17.6 H Plt Count 662 H MPV 9.3 Immature Gran % 5.7 Neutrophils % 67.9 Lymphocytes % 19.8 Monocytes % 5.7 Eosinophils % 0.7 Basophils % 0.2 Nucleated RBC % 0.3 Absolute Neutrophils 10.36 H Absolute Lymphocytes 3.02 Absolute Monocytes 0.87 H Absolute Eosinophils 0.11 Absolute Basophils 0.03 PAWSS Have you Been Recently Intoxicated or Drunk Within the Last 30 days?: No Have you Ever Experienced Previous Episodes of Alcohol Withdrawal?: No Have you ever Experienced Withdrawal Seizures?: No Have you ever Experienced Delirium Tremens(DT)s?: No Have you ever undergone Alcohol Rehabilitation Treatment (i.e, inpt ot outpatient treatment programs)?: No Have you ever Experienced Blackouts?: No Have you ever Combined Alcohol with other Downers within the last 90 days?: No Have you ever Combined Alcohol with any other Substance of Abuse during the last 90 days?: No Positive Blood Alcohol level on Presentation? [PCS.BAL]: No Evidence of Increased Autonomic Activity (i.e. HR>120, tremor, sweating, agitation, nausea)?: No Result: 0 Time Spent with Patient Time Spent with Patient: 25-34 minutes Time was spent: preparing to see the patient(eg.review tests), obtaining and/or reviewing separately otained hiistory, ordering medications,tests, procedures, referring, communicating with other health youth care professional, indepentently interpreting results, counseling the patient and care coordination
--- NOTE | 2025-06-23 18:00 | RT.EKG_ITS ---
APPROVED REPORT Exam: Resting ECG Reason for Exam: chest pain, SOB Patient Location: I HR:74 bpm ECG Measurements Heart Rate 74 AXIS CO [id number] P [id number] QRSd 103 QRS 38 QT 368 T -1 QTc 409 Conclusion Atrial flutter with predominant 4:1 AV block...A-rate 294, multiple Ps Probable left ventricular hypertrophy...(RaVL+SV3)xQRSd >280 Baseline wander in lead(s) V3
[2025-06-23 18:59] LABS: Troponin I 18 ng/L (<or=76)
[2025-06-24] MEDS: PIPERACILLIN/TAZO 3.375 GM in Normal Saline 50 ML IVPB ×3 (00:27→16:11)
[2025-06-24] MEDS: Normal Saline Flush 10 ML SYR IVP ×4 (00:28→21:09)
--- NOTE | 2025-06-24 07:58 | PGE_ITS ---
General Date Of Service Date of service: 06/24/25 Time of Service: 07:50 Reason for Consult: Pneumonia Recommendations: Assessment: 1. Sepsis - due to pneumonia 2. Legionella pneumonia - urine legionella ag positive. Infectious workup also positive for MRSA nasal swab. Bld cultures negative. BAL bacterial/fungal/afb cultures still pending 3. Right pleural effusion - suspect simple parapneumonic effusion - trace/small right effusion on POCUS US on 06/23. 4. COPD exacerbation - underlying class 2E COPD - improved 5. Acute on chronic renal failure - Cr improved to 1.6 6. Pulmonary nodules - ~1.5 cm partially calcified nodule in the anterior RUL with a smaller satellite nodule - stable from 08/2020 to 06/2025, suggesting a benign etiology Plan: - followup on BAL cultures and smears. If AFB smears are negative, can d/c airborne isolation. Will reach out to [facility] lab to see about results - - continue zosyn, and azithromycin (currently day 12 azithromycin). Once BAL bacterial cultures are back, will be able to streamline antibiotics. Has very poor dentition, so at risk for anaerobic pneumonia - continue baseline does of prednisone (10 mg daily) - continue ICS/LABA - continue duoneb PRN - plan to repeat bedside US in the AM to re-assess pleural effusion. If enlarges, would require thoracentesis Discussed with Dr. Ferrari Subjective Note Note: Patient is a 74 yo with a history of COPD, CAD, tobacco abuse and CKD who was admitted for right upper lobe pneumonia. He reported feeling unwell since 01/2025. Has had intermittent evaluations since that time. Symptoms worsened recently, prompting his current admission. Reports subjective fevers at home. Has a cough but not producing sputum. Denied any hemoptysis. No chest pain. CT chest showed a severe RUL pneumonia. No pleural effusions. He has a 1.5 cm partially calficied nodule that has been stable for years. He has very poor dentition. Denied any aspiration episodes. No known TB exposures. Currently living in nursing facility / assisted living. Bronchoscopy completed 06/17 with BAL of the RUL. Analysis and cultures pending. Remains on room air. Denies signifcant sputum production overnight. No chest pain. No hemoptysis. Family history: mother - COPD Smoking history: smoked 1 ppd x 50 years. Active TB exposures: no known exposures ROS: 6 pt ROS negative except as in HPI Exam Narrative Exam Narrative: General: alert, no acute distress Head: normocephalic ENT: no stridor, trachea midline, poor dentition CV: normal rate, regular rhythm Respiratory: no wheezing, no crackles, right sided rhonchi, no prolonged expiration GI: abd soft, non-tender, non-distended Skin: no rashes Extremities: trace edema, no digital clubbing Psych: normal affect Objective Last Vital Signs Temp 36.8 C 06/23/25 19:40 Pulse 71 06/23/25 19:40 Resp 19 06/23/25 19:40 BP 154/65 H 06/23/25 19:40 Pulse Ox 93 06/23/25 19:40 Laboratory Results - last 24 hr 06/23/25 18:35 Troponin I 18 Results Medications Medications: Active Medications Generic Name Dose Route Start Last Admin Trade Name Freq PRN Reason Stop Dose Admin Acetaminophen 650 mg 06/13/25 12:22 06/19/25 01:09 Acetaminophen 325 Mg Tab PO 650 mg Q4H PRN PRN Administration Al Hydrox/Mg Hydrox/Simethicone 30 ml 06/13/25 12:22 Mylanta Suspension 30 Ml Cup PO Q2H PRN PRN Albuterol Sulfate 2 puff 06/13/25 14:06 06/23/25 19:33 Albuterol Hfa 8 Gm 60 Puff Inh IH 2 inh Q4H PRN PRN Administration Albuterol/Ipratropium 3 ml 06/14/25 00:32 06/16/25 06:21 Albuterol/Ipratropium 3 Ml Upd Vial UPD 3 ml Q4H PRN PRN Administration Budesonide/Formoterol Fumarate 2 puff 06/23/25 08:30 06/23/25 19:33 Budesonide/Formoterol 160/4.5 6 Gm 60 Puff Inh IH 2 inh BID MAIA Administration Carvedilol 25 mg 06/17/25 08:30 06/23/25 20:44 Carvedilol 25 Mg Tab PO 25 mg BID MAIA Administration Diltiazem HCl 30 mg 06/19/25 20:00 06/23/25 20:44 Diltiazem 30 Mg Tab PO 30 mg TID MAIA Administration Docusate Sodium 100 mg 06/13/25 20:00 06/23/25 20:45 Docusate Sodium 100 Mg/10 Ml Cup PO Not Given TID [facility] Guaifenesin 600 mg 06/13/25 20:00 06/23/25 20:44 Guaifenesin 600 Mg Tabcr PO 600 mg BID [facility] Administration Hydroxyzine HCl 10 mg 06/16/25 09:11 06/16/25 20:45 Hydroxyzine Hcl 10 Mg Tab PO 10 mg TID PRN PRN Administration Piperacillin Sod/Tazobactam 50 mls @ 12.5 mls/hr 06/17/25 08:30 06/24/25 04:35 Sod 3.375 gm/ Sodium Chloride IVPB Infused Q8H [facility] Infusion Azithromycin 500 mg/ Sodium 250 mls @ 250 mls/hr 06/24/25 10:00 Chloride IVPB Q24H [facility] IV Miscellaneous Supplies 1 each 06/13/25 12:22 Iv Access IV DIRECTED [facility] Lidocaine HCl 30 ml 06/16/25 09:00 Lidocaine 2% Viscous 15 Ml Cup PO DIRECTED [facility] Lidocaine HCl 10 ml 06/16/25 08:45 Lidocaine 1% Multi-Dose 20 Ml Vial IJ DIRECTED [facility] Lidocaine HCl 6 ml 06/16/25 08:45 Lidocaine 2% Multi-Dose 20 Ml Vial IJ DIRECTED [facility] Lisinopril 2.5 mg 06/17/25 08:30 06/23/25 07:36 Lisinopril 2.5 Mg Tab PO 2.5 mg DAILY [facility] Administration Lorazepam 0.5 mg 06/13/25 22:16 06/23/25 15:46 Lorazepam 0.5 Mg Tab PO 0.5 mg Q4H PRN PRN Administration Morphine Sulfate 2 mg 06/14/25 01:07 06/18/25 07:49 Morphine 2 Mg/Ml Syr IVP 2 mg Q2H PRN PRN Administration Nicotine 21 mg 06/14/25 08:30 06/23/25 07:38 Nicotine 21 Mg/24 Hr Patch TD 21 mg DAILY [facility] Administration Oxycodone HCl 5 - 10 mg 06/18/25 14:24 06/18/25 20:50 Oxycodone 5 Mg Tab PO 5 mg Q4H PRN PRN Administration Pantoprazole Sodium 40 mg 06/14/25 07:30 06/23/25 07:37 Pantoprazole 40 Mg Tabcr PO 40 mg DAILY@0730 MAIA Administration Polyethylene Glycol 17 gm 06/13/25 12:22 Polyethylene Glycol 3350 17 Gm Packet PO DAILY PRN PRN Constipation Prednisone 10 mg 06/23/25 08:30 06/23/25 08:47 Prednisone 10 Mg Tab PO 10 mg DAILY MAIA Administration Sodium Chloride 0 ml 06/13/25 12:22 06/24/25 00:28 Normal Saline Flush 10 Ml Syr IVP 10 ml PRN PRN Administration Sodium Chloride 0 ml 06/13/25 20:00 06/23/25 20:45 Normal Saline Flush 10 Ml Syr IVP 10 ml BID MAIA Administration Sodium Chloride 0 ml 06/13/25 12:22 Normal Saline 10 Ml Vial IJ DIRECTED PRN Torsemide 20 mg 06/20/25 08:30 06/23/25 07:36 Torsemide 20 Mg Tab PO 20 mg DAILY MAIA Administration Venlafaxine HCl 75 mg 06/14/25 08:30 06/23/25 07:36 Venlafaxine 75 Mg Capcr PO 75 mg DAILY MAIA Administration Allergies lisinopril Adverse Reaction (Unknown, Unverified 05/03/25 02:05) low BP, worsening CKD codeine phosphate (From Tylenol-Codeine) Adverse Reaction (Unverified 05/03/25 02:05) constipation Labs 06/23/25 05:59 06/22/25 06:08 Labs: 06/13/25 10:05 Blood Blood Culture - Final NO GROWTH 120 HOURS 06/13/25 10:20 Blood Blood Culture - Final NO GROWTH 120 HOURS 06/14/25 00:34 Urine - Reflex from Ua Urine Culture - Final Gram positive asaf, mixed Laboratory Tests Range/Units 06/13/25 06/13/25 06/13/25 08:00 09:55 10:20 WBC (4.4-10.8) 10^3/uL 34.34 H* RBC (4.36-5.78) 10^6/uL 4.74 Hgb (13.5-17.5) g/dL 10.1 L Hct (40.0-50.0) % 33.2 L MCV (80-95) fL 70 L MCH (27.0-33.0) pg 21.3 L MCHC (32.0-36.0) % 30.4 L RDW (11.8-14.1) % 17.8 H Plt Count (130-400) 10^3/uL 443 H MPV (8.0-11.0) fL 10.0 Immature Gran % % 0.0 Neutrophils % % 86.0 Lymphocytes % % 11.0 Monocytes % % 3.0 Eosinophils % % 0.0 Basophils % % 0.0 Nucleated RBC % (0.0-0.3) % 1.0 H Absolute Neutrophils (1.2-6.7) 10^3/uL 29.53 H Absolute Lymphocytes (1.2-3.4) 10^3/uL 3.78 H Absolute Monocytes (0.1-0.8) 10^3/uL 1.03 H Absolute Eosinophils (0.0-0.7) 10^3/uL 0.00 Absolute Basophils (0.0-0.2) 10^3/uL 0.00 RBC Morphology Normal Polychromasia Hypochromasia Poikilocytosis Anisocytosis Microcytosis ABG Sample Site ABG pH ABG pCO2 ABG pO2 ABG HCO3 ABG Total CO2 ABG O2 Saturation ABG Base Excess VBG pH (7.31-7.41) 7.38 VBG pCO2 (41-51) mmHg 37 L VBG pO2 mmHg 51 VBG HCO3 (23-28) mmol/L 22 L VBG Total CO2 (24-29) mmol/L 21 L VBG O2 Saturation % 86 VBG Base Excess (-2-3) mmol/L -3 L VBG Lactate (<or=2.0) mmol/L 2.6 H* Oxygen Liter Flow FiO2 Sodium (136-145) mmol/L 139 Potassium (3.5-5.1) mmol/L 4.1 Chloride (98-107) mmol/L 101 Carbon Dioxide (21.0-32.0) mmol/L 25.8 Anion Gap (3-11) mmol/L 12.2 H BUN (7-18) mg/dL 36 H Creatinine (0.70-1.30) mg/dL 1.9 H Est GFR (CKD-EPI 2020) (mL/min/1.73m2) 37.02 Glucose (74-106) mg/dL 117 H Calcium (8.5-10.1) mg/dL 8.8 Magnesium (1.8-2.4) mg/dL 2.0 Iron (65-175) ug/dL TIBC (250-450) ug/dL Transferrin % Sat (20-55) % Total Bilirubin (0.2-1.0) mg/dL 2.2 H AST (15-37) U/L 13 L ALT (16-63) U/L 16 Alkaline Phosphatase (46-116) U/L 64 Troponin I (<or=76) ng/L 61 79 H* NT-Pro-B Natriuret Pep (<300) pg/mL 9159 H Total Protein (6.4-8.2) g/dL 7.1 Albumin (3.4-5.0) g/dL 3.1 L Procalcitonin ng/mL Urine Color (Yellow) Urine Clarity (Clear) Urine pH (5-8) Ur Specific [place] (1.005-1.025) Urine Protein (Neg-Trace) mg/dL Urine Ketones (Negative) mg/dL Urine Blood (Negative) Urine Nitrite (Negative) Urine Bilirubin (Negative) Urine Urobilinogen (Up to 0.2) mg/dL Ur Leukocyte Esterase (Negative) Urine RBC (0-2) HPF Urine WBC (0-5) HPF Ur Epithelial Cells (Negative) HPF Urine Crystals (Negative) HPF Urine Bacteria (Negative) HPF Urine Casts (Negative) LPF Urine Mucus (Negative) Ur Culture Indicated? Urine Glucose (Negative) mg/dL BAL Neutrophils BAL Lymphocytes BAL Eosinophils BAL Basophils BAL Monocyte/Macrophage BAL Path Comment Random Vancomycin ug/mL Gram Stain COVID-19 Source SARS-CoV-2 (PCR) (Negative) Influenza Type A (PCR) (Negative) Influenza Type B (PCR) (Negative) Urine Legionella Ag (Negative) M. pneumoniae Interp Mycoplasma pneumon IgG (Negative) Mycoplasma pneumon IgM (Negative) M.pneumoniae IgM (IFA) (Negative) RSV (PCR) (Negative) MRSA (TEM-PCR) (Negative) Ur Strep pneumoniae Ag (Negative) TB Test Ag - Nil 1 IU/mL 0.00 TB Test Ag - Nil 2 IU/mL 0.00 TB Test (QFT) Interp (Negative) Negative Aerobic Culture Add-On Test Request Ref Test Specimen Type Ref Report Verification Range/Units 06/13/25 06/13/25 06/13/25 11:04 13:40 13:51 WBC (4.4-10.8) 10^3/uL RBC (4.36-5.78) 10^6/uL Hgb (13.5-17.5) g/dL Hct (40.0-50.0) % MCV (80-95) fL MCH (27.0-33.0) pg MCHC (32.0-36.0) % RDW (11.8-14.1) % Plt Count (130-400) 10^3/uL MPV (8.0-11.0) fL Immature Gran % % Neutrophils % % Lymphocytes % % Monocytes % % Eosinophils % % Basophils % % Nucleated RBC % (0.0-0.3) % Absolute Neutrophils (1.2-6.7) 10^3/uL Absolute Lymphocytes (1.2-3.4) 10^3/uL Absolute Monocytes (0.1-0.8) 10^3/uL Absolute Eosinophils (0.0-0.7) 10^3/uL Absolute Basophils (0.0-0.2) 10^3/uL RBC Morphology Polychromasia Hypochromasia Poikilocytosis Anisocytosis Microcytosis ABG Sample Site ABG pH ABG pCO2 ABG pO2 ABG HCO3 ABG Total CO2 ABG O2 Saturation ABG Base Excess VBG pH (7.31-7.41) VBG pCO2 (41-51) mmHg VBG pO2 mmHg VBG HCO3 (23-28) mmol/L VBG Total CO2 (24-29) mmol/L VBG O2 Saturation % VBG Base Excess (-2-3) mmol/L VBG Lactate (<or=2.0) mmol/L 4.0 H* Oxygen Liter Flow FiO2 Sodium (136-145) mmol/L Potassium (3.5-5.1) mmol/L Chloride (98-107) mmol/L Carbon Dioxide (21.0-32.0) mmol/L Anion Gap (3-11) mmol/L BUN (7-18) mg/dL Creatinine (0.70-1.30) mg/dL Est GFR (CKD-EPI 2020) (mL/min/1.73m2) Glucose (74-106) mg/dL Calcium (8.5-10.1) mg/dL Magnesium (1.8-2.4) mg/dL Iron (65-175) ug/dL TIBC (250-450) ug/dL Transferrin % Sat (20-55) % Total Bilirubin (0.2-1.0) mg/dL AST (15-37) U/L ALT (16-63) U/L Alkaline Phosphatase (46-116) U/L Troponin I (<or=76) ng/L 89 H* Cancelled NT-Pro-B Natriuret Pep (<300) pg/mL Total Protein (6.4-8.2) g/dL Albumin (3.4-5.0) g/dL Procalcitonin ng/mL Urine Color (Yellow) Urine Clarity (Clear) Urine pH (5-8) Ur Specific [place] (1.005-1.025) Urine Protein (Neg-Trace) mg/dL Urine Ketones (Negative) mg/dL Urine Blood (Negative) Urine Nitrite (Negative) Urine Bilirubin (Negative) Urine Urobilinogen (Up to 0.2) mg/dL Ur Leukocyte Esterase (Negative) Urine RBC (0-2) HPF Urine WBC (0-5) HPF Ur Epithelial Cells (Negative) HPF Urine Crystals (Negative) HPF Urine Bacteria (Negative) HPF Urine Casts (Negative) LPF Urine Mucus (Negative) Ur Culture Indicated? Urine Glucose (Negative) mg/dL BAL Neutrophils BAL Lymphocytes BAL Eosinophils BAL Basophils BAL Monocyte/Macrophage BAL Path Comment Random Vancomycin ug/mL Gram Stain COVID-19 Source Nasopharynx SARS-CoV-2 (PCR) (Negative) Negative Influenza Type A (PCR) (Negative) Negative Influenza Type B (PCR) (Negative) Negative Urine Legionella Ag (Negative) M. pneumoniae Interp Mycoplasma pneumon IgG (Negative) Mycoplasma pneumon IgM (Negative) M.pneumoniae IgM (IFA) (Negative) RSV (PCR) (Negative) Negative MRSA (TEM-PCR) (Negative) Ur Strep pneumoniae Ag (Negative) TB Test Ag - Nil 1 IU/mL TB Test Ag - Nil 2 IU/mL TB Test (QFT) Interp (Negative) Aerobic Culture Add-On Test Request Ref Test Specimen Type Ref Report Verification Range/Units 06/13/25 06/14/25 06/14/25 17:50 00:34 03:33 WBC (4.4-10.8) 10^3/uL RBC (4.36-5.78) 10^6/uL Hgb (13.5-17.5) g/dL Hct (40.0-50.0) % MCV (80-95) fL MCH (27.0-33.0) pg MCHC (32.0-36.0) % RDW (11.8-14.1) % Plt Count (130-400) 10^3/uL MPV (8.0-11.0) fL Immature Gran % % Neutrophils % % Lymphocytes % % Monocytes % % Eosinophils % % Basophils % % Nucleated RBC % (0.0-0.3) % Absolute Neutrophils (1.2-6.7) 10^3/uL Absolute Lymphocytes (1.2-3.4) 10^3/uL Absolute Monocytes (0.1-0.8) 10^3/uL Absolute Eosinophils (0.0-0.7) 10^3/uL Absolute Basophils (0.0-0.2) 10^3/uL RBC Morphology Polychromasia Hypochromasia Poikilocytosis Anisocytosis Microcytosis ABG Sample Site Cancelled ABG pH Cancelled ABG pCO2 Cancelled ABG pO2 Cancelled ABG HCO3 Cancelled ABG Total CO2 Cancelled ABG O2 Saturation Cancelled ABG Base Excess Cancelled VBG pH (7.31-7.41) VBG pCO2 (41-51) mmHg VBG pO2 mmHg VBG HCO3 (23-28) mmol/L VBG Total CO2 (24-29) mmol/L VBG O2 Saturation % VBG Base Excess (-2-3) mmol/L VBG Lactate (<or=2.0) mmol/L 2.0 Oxygen Liter Flow Cancelled FiO2 Cancelled Sodium (136-145) mmol/L Potassium (3.5-5.1) mmol/L Chloride (98-107) mmol/L Carbon Dioxide (21.0-32.0) mmol/L Anion Gap (3-11) mmol/L BUN (7-18) mg/dL Creatinine (0.70-1.30) mg/dL Est GFR (CKD-EPI 2020) (mL/min/1.73m2) Glucose (74-106) mg/dL Calcium (8.5-10.1) mg/dL Magnesium (1.8-2.4) mg/dL Iron (65-175) ug/dL TIBC (250-450) ug/dL Transferrin % Sat (20-55) % Total Bilirubin (0.2-1.0) mg/dL AST (15-37) U/L ALT (16-63) U/L Alkaline Phosphatase (46-116) U/L Troponin I (<or=76) ng/L NT-Pro-B Natriuret Pep (<300) pg/mL Total Protein (6.4-8.2) g/dL Albumin (3.4-5.0) g/dL Procalcitonin ng/mL Urine Color (Yellow) Yellow Urine Clarity (Clear) Clear Urine pH (5-8) 6.0 Ur Specific [place] (1.005-1.025) 1.015 Urine Protein (Neg-Trace) mg/dL >=300 H Urine Ketones (Negative) mg/dL Negative Urine Blood (Negative) Trace-intact H Urine Nitrite (Negative) Negative Urine Bilirubin (Negative) Negative Urine Urobilinogen (Up to 0.2) mg/dL 0.2 Ur Leukocyte Esterase (Negative) Small H Urine RBC (0-2) HPF 3-5 H Urine WBC (0-5) HPF >50 H Ur Epithelial Cells (Negative) HPF Few Urine Crystals (Negative) HPF Negative Urine Bacteria (Negative) HPF Few Urine Casts (Negative) LPF Negative Urine Mucus (Negative) Negative Ur Culture Indicated? Yes Urine Glucose (Negative) mg/dL Negative BAL Neutrophils BAL Lymphocytes BAL Eosinophils BAL Basophils BAL Monocyte/Macrophage BAL Path Comment Random Vancomycin ug/mL Gram Stain COVID-19 Source SARS-CoV-2 (PCR) (Negative) Influenza Type A (PCR) (Negative) Influenza Type B (PCR) (Negative) Urine Legionella Ag (Negative) M. pneumoniae Interp Mycoplasma pneumon IgG (Negative) Mycoplasma pneumon IgM (Negative) M.pneumoniae IgM (IFA) (Negative) RSV (PCR) (Negative) MRSA (TEM-PCR) (Negative) Ur Strep pneumoniae Ag (Negative) TB Test Ag - Nil 1 IU/mL TB Test Ag - Nil 2 IU/mL TB Test (QFT) Interp (Negative) Aerobic Culture Add-On Test Request Ref Test Specimen Type Ref Report Verification Range/Units 06/14/25 06/14/25 06/14/25 03:48 05:59 16:00 WBC (4.4-10.8) 10^3/uL 29.95 H* RBC (4.36-5.78) 10^6/uL 4.36 Hgb (13.5-17.5) g/dL 9.0 L Hct (40.0-50.0) % 29.8 L MCV (80-95) fL 68 L MCH (27.0-33.0) pg 20.6 L MCHC (32.0-36.0) % 30.2 L RDW (11.8-14.1) % 17.1 H Plt Count (130-400) 10^3/uL 410 H MPV (8.0-11.0) fL 10.2 Immature Gran % % 1.9 Neutrophils % % 84.4 Lymphocytes % % 6.9 Monocytes % % 6.3 Eosinophils % % 0.2 Basophils % % 0.3 Nucleated RBC % (0.0-0.3) % 0.1 Absolute Neutrophils (1.2-6.7) 10^3/uL 25.28 H Absolute Lymphocytes (1.2-3.4) 10^3/uL 2.07 Absolute Monocytes (0.1-0.8) 10^3/uL 1.89 H Absolute Eosinophils (0.0-0.7) 10^3/uL 0.06 Absolute Basophils (0.0-0.2) 10^3/uL 0.09 RBC Morphology See Below Polychromasia Hypochromasia Poikilocytosis Anisocytosis Microcytosis 2+ ABG Sample Site Right Radial ABG pH 7.35 ABG pCO2 36 ABG pO2 60 L ABG HCO3 20 L ABG Total CO2 19 L ABG O2 Saturation 89 L ABG Base Excess -6 L VBG pH (7.31-7.41) VBG pCO2 (41-51) mmHg VBG pO2 mmHg VBG HCO3 (23-28) mmol/L VBG Total CO2 (24-29) mmol/L VBG O2 Saturation % VBG Base Excess (-2-3) mmol/L VBG Lactate (<or=2.0) mmol/L Oxygen Liter Flow 15 FiO2 Sodium (136-145) mmol/L 136 Potassium (3.5-5.1) mmol/L 4.2 Chloride (98-107) mmol/L 101 Carbon Dioxide (21.0-32.0) mmol/L 22.4 Anion Gap (3-11) mmol/L 12.6 H BUN (7-18) mg/dL 44 H Creatinine (0.70-1.30) mg/dL 2.2 H Est GFR (CKD-EPI 2020) (mL/min/1.73m2) 31.05 Glucose (74-106) mg/dL 89 Calcium (8.5-10.1) mg/dL 8.8 Magnesium (1.8-2.4) mg/dL Iron (65-175) ug/dL TIBC (250-450) ug/dL Transferrin % Sat (20-55) % Total Bilirubin (0.2-1.0) mg/dL AST (15-37) U/L ALT (16-63) U/L Alkaline Phosphatase (46-116) U/L Troponin I (<or=76) ng/L NT-Pro-B Natriuret Pep (<300) pg/mL Total Protein (6.4-8.2) g/dL Albumin (3.4-5.0) g/dL Procalcitonin ng/mL Urine Color (Yellow) Urine Clarity (Clear) Urine pH (5-8) Ur Specific [place] (1.005-1.025) Urine Protein (Neg-Trace) mg/dL Urine Ketones (Negative) mg/dL Urine Blood (Negative) Urine Nitrite (Negative) Urine Bilirubin (Negative) Urine Urobilinogen (Up to 0.2) mg/dL Ur Leukocyte Esterase (Negative) Urine RBC (0-2) HPF Urine WBC (0-5) HPF Ur Epithelial Cells (Negative) HPF Urine Crystals (Negative) HPF Urine Bacteria (Negative) HPF Urine Casts (Negative) LPF Urine Mucus (Negative) Ur Culture Indicated? Urine Glucose (Negative) mg/dL BAL Neutrophils BAL Lymphocytes BAL Eosinophils BAL Basophils BAL Monocyte/Macrophage BAL Path Comment Random Vancomycin ug/mL Gram Stain COVID-19 Source SARS-CoV-2 (PCR) (Negative) Influenza Type A (PCR) (Negative) Influenza Type B (PCR) (Negative) Urine Legionella Ag (Negative) M. pneumoniae Interp Mycoplasma pneumon IgG (Negative) Mycoplasma pneumon IgM (Negative) M.pneumoniae IgM (IFA) (Negative) RSV (PCR) (Negative) MRSA (TEM-PCR) (Negative) Positive A Ur Strep pneumoniae Ag (Negative) TB Test Ag - Nil 1 IU/mL TB Test Ag - Nil 2 IU/mL TB Test (QFT) Interp (Negative) Aerobic Culture Add-On Test Request Ref Test Specimen Type Ref Report Verification Range/Units 06/14/25 06/15/25 06/16/25 23:35 08:04 05:57 WBC (4.4-10.8) 10^3/uL 21.80 H 13.77 H RBC (4.36-5.78) 10^6/uL 4.31 L 4.14 L Hgb (13.5-17.5) g/dL 8.8 L 8.8 L Hct (40.0-50.0) % 28.4 L 27.4 L MCV (80-95) fL 66 L 66 L MCH (27.0-33.0) pg 20.4 L 21.3 L MCHC (32.0-36.0) % 31.0 L 32.1 RDW (11.8-14.1) % 16.7 H 16.9 H Plt Count (130-400) 10^3/uL 355 359 MPV (8.0-11.0) fL 9.9 10.2 Immature Gran % % 0.4 Neutrophils % % 94.5 Lymphocytes % % 3.2 Monocytes % % 1.9 Eosinophils % % 0.0 Basophils % % 0.0 Nucleated RBC % (0.0-0.3) % 0.7 H Absolute Neutrophils (1.2-6.7) 10^3/uL 13.01 H Absolute Lymphocytes (1.2-3.4) 10^3/uL 0.44 L Absolute Monocytes (0.1-0.8) 10^3/uL 0.26 Absolute Eosinophils (0.0-0.7) 10^3/uL 0.00 Absolute Basophils (0.0-0.2) 10^3/uL 0.00 RBC Morphology Polychromasia Hypochromasia Poikilocytosis Anisocytosis Microcytosis ABG Sample Site ABG pH ABG pCO2 ABG pO2 ABG HCO3 ABG Total CO2 ABG O2 Saturation ABG Base Excess VBG pH (7.31-7.41) 7.34 VBG pCO2 (41-51) mmHg 38 L VBG pO2 mmHg 83 VBG HCO3 (23-28) mmol/L 21 L VBG Total CO2 (24-29) mmol/L 20 L VBG O2 Saturation % 97 VBG Base Excess (-2-3) mmol/L -5 L VBG Lactate (<or=2.0) mmol/L 0.8 Oxygen Liter Flow FiO2 Sodium (136-145) mmol/L 135 L 135 L Potassium (3.5-5.1) mmol/L 4.3 3.6 Chloride (98-107) mmol/L 101 101 Carbon Dioxide (21.0-32.0) mmol/L 24.7 27.5 Anion Gap (3-11) mmol/L 9.3 6.5 BUN (7-18) mg/dL 58 H 67 H Creatinine (0.70-1.30) mg/dL 2.2 H 2.2 H Est GFR (CKD-EPI 2020) (mL/min/1.73m2) 31.05 31.05 Glucose (74-106) mg/dL 161 H 164 H Calcium (8.5-10.1) mg/dL 9.1 9.0 Magnesium (1.8-2.4) mg/dL Iron (65-175) ug/dL TIBC (250-450) ug/dL Transferrin % Sat (20-55) % Total Bilirubin (0.2-1.0) mg/dL 0.9 0.8 AST (15-37) U/L 27 17 ALT (16-63) U/L 15 L 18 Alkaline Phosphatase (46-116) U/L 77 71 Troponin I (<or=76) ng/L NT-Pro-B Natriuret Pep (<300) pg/mL Total Protein (6.4-8.2) g/dL 7.0 7.3 Albumin (3.4-5.0) g/dL 2.5 L 2.8 L Procalcitonin ng/mL 44.60 Urine Color (Yellow) Urine Clarity (Clear) Urine pH (5-8) Ur Specific [place] (1.005-1.025) Urine Protein (Neg-Trace) mg/dL Urine Ketones (Negative) mg/dL Urine Blood (Negative) Urine Nitrite (Negative) Urine Bilirubin (Negative) Urine Urobilinogen (Up to 0.2) mg/dL Ur Leukocyte Esterase (Negative) Urine RBC (0-2) HPF Urine WBC (0-5) HPF Ur Epithelial Cells (Negative) HPF Urine Crystals (Negative) HPF Urine Bacteria (Negative) HPF Urine Casts (Negative) LPF Urine Mucus (Negative) Ur Culture Indicated? Urine Glucose (Negative) mg/dL BAL Neutrophils BAL Lymphocytes BAL Eosinophils BAL Basophils BAL Monocyte/Macrophage BAL Path Comment Random Vancomycin ug/mL Gram Stain COVID-19 Source SARS-CoV-2 (PCR) (Negative) Influenza Type A (PCR) (Negative) Influenza Type B (PCR) (Negative) Urine Legionella Ag (Negative) M. pneumoniae Interp See Comment Mycoplasma pneumon IgG (Negative) Positive A Mycoplasma pneumon IgM (Negative) Reactive A M.pneumoniae IgM (IFA) (Negative) Negative RSV (PCR) (Negative) MRSA (TEM-PCR) (Negative) Ur Strep pneumoniae Ag (Negative) TB Test Ag - Nil 1 IU/mL TB Test Ag - Nil 2 IU/mL TB Test (QFT) Interp (Negative) Aerobic Culture Add-On Test Request Ref Test Specimen Type Ref Report Verification Range/Units 06/16/25 06/17/25 06/17/25 11:48 05:50 11:55 WBC (4.4-10.8) 10^3/uL 17.17 H RBC (4.36-5.78) 10^6/uL 4.22 L Hgb (13.5-17.5) g/dL 8.8 L Hct (40.0-50.0) % 27.1 L MCV (80-95) fL 64 L MCH (27.0-33.0) pg 20.9 L MCHC (32.0-36.0) % 32.5 RDW (11.8-14.1) % 16.9 H Plt Count (130-400) 10^3/uL 376 MPV (8.0-11.0) fL 9.9 Immature Gran % % 0.8 Neutrophils % % 88.4 Lymphocytes % % 6.3 Monocytes % % 4.4 Eosinophils % % 0.0 Basophils % % 0.1 Nucleated RBC % (0.0-0.3) % 0.4 H Absolute Neutrophils (1.2-6.7) 10^3/uL 15.18 H Absolute Lymphocytes (1.2-3.4) 10^3/uL 1.08 L Absolute Monocytes (0.1-0.8) 10^3/uL 0.76 Absolute Eosinophils (0.0-0.7) 10^3/uL 0.00 Absolute Basophils (0.0-0.2) 10^3/uL 0.02 RBC Morphology Polychromasia Hypochromasia Poikilocytosis Anisocytosis Microcytosis ABG Sample Site ABG pH ABG pCO2 ABG pO2 ABG HCO3 ABG Total CO2 ABG O2 Saturation ABG Base Excess VBG pH (7.31-7.41) VBG pCO2 (41-51) mmHg VBG pO2 mmHg VBG HCO3 (23-28) mmol/L VBG Total CO2 (24-29) mmol/L VBG O2 Saturation % VBG Base Excess (-2-3) mmol/L VBG Lactate (<or=2.0) mmol/L 1.0 Oxygen Liter Flow FiO2 Sodium (136-145) mmol/L 142 Potassium (3.5-5.1) mmol/L 3.0 L Chloride (98-107) mmol/L 102 Carbon Dioxide (21.0-32.0) mmol/L 29.8 Anion Gap (3-11) mmol/L 10.2 BUN (7-18) mg/dL 65 H Creatinine (0.70-1.30) mg/dL 1.7 H Est GFR (CKD-EPI 2020) (mL/min/1.73m2) 42.30 Glucose (74-106) mg/dL 126 H Calcium (8.5-10.1) mg/dL 9.0 Magnesium (1.8-2.4) mg/dL 2.1 Iron (65-175) ug/dL 48 L TIBC (250-450) ug/dL 163 L Transferrin % Sat (20-55) % 29 Total Bilirubin (0.2-1.0) mg/dL 0.8 AST (15-37) U/L 12 L ALT (16-63) U/L 19 Alkaline Phosphatase (46-116) U/L 66 Troponin I (<or=76) ng/L NT-Pro-B Natriuret Pep (<300) pg/mL Total Protein (6.4-8.2) g/dL 7.0 Albumin (3.4-5.0) g/dL 2.7 L Procalcitonin ng/mL Urine Color (Yellow) Urine Clarity (Clear) Urine pH (5-8) Ur Specific [place] (1.005-1.025) Urine Protein (Neg-Trace) mg/dL Urine Ketones (Negative) mg/dL Urine Blood (Negative) Urine Nitrite (Negative) Urine Bilirubin (Negative) Urine Urobilinogen (Up to 0.2) mg/dL Ur Leukocyte Esterase (Negative) Urine RBC (0-2) HPF Urine WBC (0-5) HPF Ur Epithelial Cells (Negative) HPF Urine Crystals (Negative) HPF Urine Bacteria (Negative) HPF Urine Casts (Negative) LPF Urine Mucus (Negative) Ur Culture Indicated? Urine Glucose (Negative) mg/dL BAL Neutrophils Not Applicable BAL Lymphocytes Not Applicable BAL Eosinophils Not Applicable BAL Basophils Not Applicable BAL Monocyte/Macrophage Not Applicable BAL Path Comment See Comment Random Vancomycin ug/mL Gram Stain No Neutrophils Seen COVID-19 Source SARS-CoV-2 (PCR) (Negative) Influenza Type A (PCR) (Negative) Influenza Type B (PCR) (Negative) Urine Legionella Ag (Negative) Positive A M. pneumoniae Interp Mycoplasma pneumon IgG (Negative) Mycoplasma pneumon IgM (Negative) M.pneumoniae IgM (IFA) (Negative) RSV (PCR) (Negative) MRSA (TEM-PCR) (Negative) Ur Strep pneumoniae Ag (Negative) Negative TB Test Ag - Nil 1 IU/mL TB Test Ag - Nil 2 IU/mL TB Test (QFT) Interp (Negative) Aerobic Culture SEE BELOW Add-On Test Request Ref Test Specimen Type Not Applicable Ref Report Verification Not Applicable Range/Units 06/17/25 06/18/25 06/19/25 12:32 06:00 06:50 WBC (4.4-10.8) 10^3/uL 14.79 H RBC (4.36-5.78) 10^6/uL 4.18 L Hgb (13.5-17.5) g/dL 8.8 L Hct (40.0-50.0) % 27.0 L MCV (80-95) fL 65 L MCH (27.0-33.0) pg 21.1 L MCHC (32.0-36.0) % 32.6 RDW (11.8-14.1) % 16.9 H Plt Count (130-400) 10^3/uL 380 MPV (8.0-11.0) fL 10.0 Immature Gran % % 0.9 Neutrophils % % 79.5 Lymphocytes % % 12.2 Monocytes % % 6.5 Eosinophils % % 0.8 Basophils % % 0.1 Nucleated RBC % (0.0-0.3) % 0.2 Absolute Neutrophils (1.2-6.7) 10^3/uL 11.76 H Absolute Lymphocytes (1.2-3.4) 10^3/uL 1.80 Absolute Monocytes (0.1-0.8) 10^3/uL 0.96 H Absolute Eosinophils (0.0-0.7) 10^3/uL 0.12 Absolute Basophils (0.0-0.2) 10^3/uL 0.01 RBC Morphology Polychromasia Hypochromasia Poikilocytosis Anisocytosis Microcytosis ABG Sample Site ABG pH ABG pCO2 ABG pO2 ABG HCO3 ABG Total CO2 ABG O2 Saturation ABG Base Excess VBG pH (7.31-7.41) VBG pCO2 (41-51) mmHg VBG pO2 mmHg VBG HCO3 (23-28) mmol/L VBG Total CO2 (24-29) mmol/L VBG O2 Saturation % VBG Base Excess (-2-3) mmol/L VBG Lactate (<or=2.0) mmol/L 1.0 Oxygen Liter Flow FiO2 Sodium (136-145) mmol/L 140 138 Potassium (3.5-5.1) mmol/L 3.2 L 4.2 D Chloride (98-107) mmol/L 102 104 Carbon Dioxide (21.0-32.0) mmol/L 27.6 26.1 Anion Gap (3-11) mmol/L 10.4 7.9 BUN (7-18) mg/dL 54 H 52 H Creatinine (0.70-1.30) mg/dL 1.7 H 1.7 H Est GFR (CKD-EPI 2020) (mL/min/1.73m2) 42.30 42.30 Glucose (74-106) mg/dL 121 H 96 Calcium (8.5-10.1) mg/dL 8.7 9.0 Magnesium (1.8-2.4) mg/dL 1.9 Iron (65-175) ug/dL TIBC (250-450) ug/dL Transferrin % Sat (20-55) % Total Bilirubin (0.2-1.0) mg/dL 0.9 AST (15-37) U/L 10 L ALT (16-63) U/L 17 Alkaline Phosphatase (46-116) U/L 62 Troponin I (<or=76) ng/L NT-Pro-B Natriuret Pep (<300) pg/mL Total Protein (6.4-8.2) g/dL 6.6 Albumin (3.4-5.0) g/dL 2.6 L Procalcitonin ng/mL Urine Color (Yellow) Urine Clarity (Clear) Urine pH (5-8) Ur Specific [place] (1.005-1.025) Urine Protein (Neg-Trace) mg/dL Urine Ketones (Negative) mg/dL Urine Blood (Negative) Urine Nitrite (Negative) Urine Bilirubin (Negative) Urine Urobilinogen (Up to 0.2) mg/dL Ur Leukocyte Esterase (Negative) Urine RBC (0-2) HPF Urine WBC (0-5) HPF Ur Epithelial Cells (Negative) HPF Urine Crystals (Negative) HPF Urine Bacteria (Negative) HPF Urine Casts (Negative) LPF Urine Mucus (Negative) Ur Culture Indicated? Urine Glucose (Negative) mg/dL BAL Neutrophils BAL Lymphocytes BAL Eosinophils BAL Basophils BAL Monocyte/Macrophage BAL Path Comment Random Vancomycin ug/mL 9.5 Gram Stain COVID-19 Source SARS-CoV-2 (PCR) (Negative) Influenza Type A (PCR) (Negative) Influenza Type B (PCR) (Negative) Urine Legionella Ag (Negative) M. pneumoniae Interp Mycoplasma pneumon IgG (Negative) Mycoplasma pneumon IgM (Negative) M.pneumoniae IgM (IFA) (Negative) RSV (PCR) (Negative) MRSA (TEM-PCR) (Negative) Ur Strep pneumoniae Ag (Negative) TB Test Ag - Nil 1 IU/mL TB Test Ag - Nil 2 IU/mL TB Test (QFT) Interp (Negative) Aerobic Culture Add-On Test Request DONE Ref Test Specimen Type Ref Report Verification Range/Units 06/20/25 06/21/25 06/21/25 07:00 11:45 15:30 WBC (4.4-10.8) 10^3/uL 17.98 H 18.51 H RBC (4.36-5.78) 10^6/uL 4.12 L 4.03 L Hgb (13.5-17.5) g/dL 8.5 L 8.3 L Hct (40.0-50.0) % 26.9 L 26.6 L MCV (80-95) fL 65 L 66 L MCH (27.0-33.0) pg 20.6 L 20.6 L MCHC (32.0-36.0) % 31.6 L 31.2 L RDW (11.8-14.1) % 17.6 H 17.5 H Plt Count (130-400) 10^3/uL 491 H 539 H MPV (8.0-11.0) fL 9.9 9.4 Immature Gran % % 4.3 Neutrophils % % 86.5 Lymphocytes % % 5.6 Monocytes % % 2.4 Eosinophils % % 1.0 Basophils % % 0.2 Nucleated RBC % (0.0-0.3) % 0.2 Absolute Neutrophils (1.2-6.7) 10^3/uL 16.01 H Absolute Lymphocytes (1.2-3.4) 10^3/uL 1.04 L Absolute Monocytes (0.1-0.8) 10^3/uL 0.44 Absolute Eosinophils (0.0-0.7) 10^3/uL 0.19 Absolute Basophils (0.0-0.2) 10^3/uL 0.04 RBC Morphology See Below Polychromasia Present Hypochromasia 1+ Poikilocytosis 2+ Anisocytosis 1+ Microcytosis 2+ ABG Sample Site ABG pH ABG pCO2 ABG pO2 ABG HCO3 ABG Total CO2 ABG O2 Saturation ABG Base Excess VBG pH (7.31-7.41) VBG pCO2 (41-51) mmHg VBG pO2 mmHg VBG HCO3 (23-28) mmol/L VBG Total CO2 (24-29) mmol/L VBG O2 Saturation % VBG Base Excess (-2-3) mmol/L VBG Lactate (<or=2.0) mmol/L Oxygen Liter Flow FiO2 Sodium (136-145) mmol/L 140 Potassium (3.5-5.1) mmol/L 3.5 Chloride (98-107) mmol/L 106 Carbon Dioxide (21.0-32.0) mmol/L 25.7 Anion Gap (3-11) mmol/L 8.3 BUN (7-18) mg/dL 48 H Creatinine (0.70-1.30) mg/dL 1.7 H Est GFR (CKD-EPI 2021) (mL/min/1.73m2) 42.30 Glucose (74-106) mg/dL 112 H Calcium (8.5-10.1) mg/dL 8.7 Magnesium (1.8-2.4) mg/dL Iron (65-175) ug/dL TIBC (250-450) ug/dL Transferrin % Sat (20-55) % Total Bilirubin (0.2-1.0) mg/dL AST (15-37) U/L ALT (16-63) U/L Alkaline Phosphatase (46-116) U/L Troponin I (<or=76) ng/L NT-Pro-B Natriuret Pep (<300) pg/mL Total Protein (6.4-8.2) g/dL Albumin (3.4-5.0) g/dL Procalcitonin ng/mL 0.65 Urine Color (Yellow) Urine Clarity (Clear) Urine pH (5-8) Ur Specific [place] (1.005-1.025) Urine Protein (Neg-Trace) mg/dL Urine Ketones (Negative) mg/dL Urine Blood (Negative) Urine Nitrite (Negative) Urine Bilirubin (Negative) Urine Urobilinogen (Up to 0.2) mg/dL Ur Leukocyte Esterase (Negative) Urine RBC (0-2) HPF Urine WBC (0-5) HPF Ur Epithelial Cells (Negative) HPF Urine Crystals (Negative) HPF Urine Bacteria (Negative) HPF Urine Casts (Negative) LPF Urine Mucus (Negative) Ur Culture Indicated? Urine Glucose (Negative) mg/dL BAL Neutrophils BAL Lymphocytes BAL Eosinophils BAL Basophils BAL Monocyte/Macrophage BAL Path Comment Random Vancomycin ug/mL Gram Stain COVID-19 Source SARS-CoV-2 (PCR) (Negative) Influenza Type A (PCR) (Negative) Influenza Type B (PCR) (Negative) Urine Legionella Ag (Negative) M. pneumoniae Interp Mycoplasma pneumon IgG (Negative) Mycoplasma pneumon IgM (Negative) M.pneumoniae IgM (IFA) (Negative) RSV (PCR) (Negative) MRSA (TEM-PCR) (Negative) Ur Strep pneumoniae Ag (Negative) TB Test Ag - Nil 1 IU/mL TB Test Ag - Nil 2 IU/mL TB Test (QFT) Interp (Negative) Aerobic Culture Add-On Test Request Ref Test Specimen Type Ref Report Verification Range/Units 06/22/25 06/23/25 06/23/25 06:08 05:59 18:35 WBC (4.4-10.8) 10^3/uL 15.26 H RBC (4.36-5.78) 10^6/uL 4.09 L Hgb (13.5-17.5) g/dL 8.4 L Hct (40.0-50.0) % 26.9 L MCV (80-95) fL 66 L MCH (27.0-33.0) pg 20.5 L MCHC (32.0-36.0) % 31.2 L RDW (11.8-14.1) % 17.6 H Plt Count (130-400) 10^3/uL 662 H MPV (8.0-11.0) fL 9.3 Immature Gran % % 5.7 Neutrophils % % 67.9 Lymphocytes % % 19.8 Monocytes % % 5.7 Eosinophils % % 0.7 Basophils % % 0.2 Nucleated RBC % (0.0-0.3) % 0.3 Absolute Neutrophils (1.2-6.7) 10^3/uL 10.36 H Absolute Lymphocytes (1.2-3.4) 10^3/uL 3.02 Absolute Monocytes (0.1-0.8) 10^3/uL 0.87 H Absolute Eosinophils (0.0-0.7) 10^3/uL 0.11 Absolute Basophils (0.0-0.2) 10^3/uL 0.03 RBC Morphology Polychromasia Hypochromasia Poikilocytosis Anisocytosis Microcytosis ABG Sample Site ABG pH ABG pCO2 ABG pO2 ABG HCO3 ABG Total CO2 ABG O2 Saturation ABG Base Excess VBG pH (7.31-7.41) VBG pCO2 (41-51) mmHg VBG pO2 mmHg VBG HCO3 (23-28) mmol/L VBG Total CO2 (24-29) mmol/L VBG O2 Saturation % VBG Base Excess (-2-3) mmol/L VBG Lactate (<or=2.0) mmol/L Oxygen Liter Flow FiO2 Sodium (136-145) mmol/L 141 Potassium (3.5-5.1) mmol/L 3.8 Chloride (98-107) mmol/L 106 Carbon Dioxide (21.0-32.0) mmol/L 26.1 Anion Gap (3-11) mmol/L 8.9 BUN (7-18) mg/dL 44 H Creatinine (0.70-1.30) mg/dL 1.6 H Est GFR (CKD-EPI 2020) (mL/min/1.73m2) 45.50 Glucose (74-106) mg/dL 94 Calcium (8.5-10.1) mg/dL 8.8 Magnesium (1.8-2.4) mg/dL Iron (65-175) ug/dL TIBC (250-450) ug/dL Transferrin % Sat (20-55) % Total Bilirubin (0.2-1.0) mg/dL AST (15-37) U/L ALT (16-63) U/L Alkaline Phosphatase (46-116) U/L Troponin I (<or=76) ng/L 18 NT-Pro-B Natriuret Pep (<300) pg/mL Total Protein (6.4-8.2) g/dL Albumin (3.4-5.0) g/dL Procalcitonin ng/mL Urine Color (Yellow) Urine Clarity (Clear) Urine pH (5-8) Ur Specific [place] (1.005-1.025) Urine Protein (Neg-Trace) mg/dL Urine Ketones (Negative) mg/dL Urine Blood (Negative) Urine Nitrite (Negative) Urine Bilirubin (Negative) Urine Urobilinogen (Up to 0.2) mg/dL Ur Leukocyte Esterase (Negative) Urine RBC (0-2) HPF Urine WBC (0-5) HPF Ur Epithelial Cells (Negative) HPF Urine Crystals (Negative) HPF Urine Bacteria (Negative) HPF Urine Casts (Negative) LPF Urine Mucus (Negative) Ur Culture Indicated? Urine Glucose (Negative) mg/dL BAL Neutrophils BAL Lymphocytes BAL Eosinophils BAL Basophils BAL Monocyte/Macrophage BAL Path Comment Random Vancomycin ug/mL Gram Stain COVID-19 Source SARS-CoV-2 (PCR) (Negative) Influenza Type A (PCR) (Negative) Influenza Type B (PCR) (Negative) Urine Legionella Ag (Negative) M. pneumoniae Interp Mycoplasma pneumon IgG (Negative) Mycoplasma pneumon IgM (Negative) M.pneumoniae IgM (IFA) (Negative) RSV (PCR) (Negative) MRSA (TEM-PCR) (Negative) Ur Strep pneumoniae Ag (Negative) TB Test Ag - Nil 1 IU/mL TB Test Ag - Nil 2 IU/mL TB Test (QFT) Interp (Negative) Aerobic Culture Add-On Test Request Ref Test Specimen Type Ref Report Verification Imaging CT scan - chest: report reviewed and image reviewed
[2025-06-24 08:05] VITALS: BP 174/68; PULSE 72; RESP 18; TEMP 36.7; O2SAT 92
[2025-06-24] MEDS: Pantoprazole 40 MG TABCR PO (08:27)
[2025-06-24] MEDS: Lisinopril 2.5 MG TAB PO (08:27)
[2025-06-24] MEDS: Venlafaxine 75 MG CAPCR PO (08:27)
[2025-06-24] MEDS: guaiFENesin 600 MG TABCR PO ×2 (08:27→21:09)
[2025-06-24] MEDS: Torsemide 20 MG TAB PO (08:27)
[2025-06-24] MEDS: Carvedilol 25 MG TAB PO ×2 (08:27→21:09)
[2025-06-24] MEDS: dilTIAZem 30 MG TAB PO ×3 (08:27→21:09)
[2025-06-24] MEDS: predniSONE 10 MG TAB PO (08:28)
[2025-06-24] MEDS: Nicotine 21 MG/24 HR PATCH TD (08:28)
[2025-06-24] MEDS: Budesonide/Formoterol 160/4.5 6 GM 60 PUFF INH IH ×2 (08:38→19:47)
[2025-06-24] MEDS: Albuterol HFA 8 GM 60 PUFF INH IH ×2 (08:39→19:47)
--- NOTE | 2025-06-24 09:27 | CMPROGNOTE_ITS ---
Date of service: 06/24/25 Time of Service: 09:27 Care Management Progress Note Progress Note Text Progress Note Text: Elroy was sitting up in a chair eating lunch when CM met with him. He appeared to be in good spirits and easily engaged with CM. Elroy stated he is feeling better, however he still has significant shortness of breath. His oxygen saturation has been in the 90s on room air, however he stated it is still hard for him to breathe. He said the only thing that helps him is his nebulizer which he has been told he cannot have. The reason he was given is because TB still has not been totally ruled out. Elroy had been worried about his LTM application which was due yesterday, however he informed CM that he was able to reach them by phone and has an extension for 2 weeks. Discharge Potential Discharge Needs: Other (SNF) Anticipated Barriers to Discharge: Medical Status Patient/Family Education Needs: Review discharge instructions, discuss Ask Me Three Transportation: Private vehicle Plan: Anticipate Elroy will be transferred back to [facility] when medically cleared. He will follow up with his facility providers and plan of care and transport via [facility]. CM will continue to support discharge planning. Social Determinants of Health Screening Will the Patient Participate in the Screening?: Declined to provide Do you worry about having a steady place to live?: no In the past 12 months, have you had to go without electric, gas, oil or water in your home?: no Comments: lives in a rehab facility
[2025-06-24 11:34] VITALS: BP 134/65; PULSE 74; RESP 17; TEMP 36.7; O2SAT 91
[2025-06-24] MEDS: AZITHROMYCIN 500 MG in Normal Saline 250 ML 250 MG IVPB (12:37)
--- NOTE | 2025-06-24 12:41 | PT.INTREAT ---
PT Notes Visit Reasons: Severe Sepsis, Hypoxic Resp Fail Pneumonia,CHF [facility] Date: 06/24/2025 PRECAUTIONS: Activity as tolerated. Fall. Droplet and contact precautions. SUBJECTIVE: Francieheal states he is going to have another ultrasound tomorrow to see if the fluid is getting worse. He reports he has a bad night of breathing but oddly felt better reclined on bed than sitting at the edge. He states usually it is harder to breathe when he is in the bed. OBJECTIVE: ? PAIN: left hip and thigh with weightbearing ??Therapeutic Exercises (66652e to): Direct one-on-one instruction in therapeutic exercises to develop strength, endurance, range of motion and flexibility. ? ? BED MOBILITY/TRANSFERS? Supine-sit: independent? Sit-supine: independent ? Sit-stand: independent? Stand-sit: independent ? Bed-commode : independent with FWW via stand pivot ? GAIT? Assistive Device: FWW? Weight bearing: AT Assist: SBA, assist for management of lines ? Distance:? 8 feet' x2 ? Deviation: slow, cautious ambulation. Cues for FWW placement (tends to push walker ahead, requiring trunk flexion). Cues for pacing and breathing throughout seated: theres marching LAQ ankle pumps 2 sets 5 reps BLE with rest period between sets. Today's session consisted of ambulation chair to /from commode and then chair to bed for improved activity tolerance. He struggles to tolerate, with RPE 8 post transfer to from commode then RPE of 9 with chair to bed at end of session. Requires standing x 20 seconds prior to ambulation due to MONTIEL. Recovers in chair to normalized breathing patterns, patient utilizes propping on elbows on his over bed table to normalize breathing pattern ? ASSESSMENT:?pt with decline in activity tolerance with increased work of breathing and RPE this session. pt continues to sustain oxygen sats >90%. left hip pain with weight bearing limits his tolerance for distance as well PLAN: Continue PT intervention to maximize activity tolerance and safety. TREATMENT CODE/TIME: 06144/7445-3299 DISCHARGE RECOMMENDATION: Return to SNF with continued PT to improve activity tolerance when medically appropriate
--- NOTE | 2025-06-24 13:34 | PT.INTREAT ---
PT Notes Visit Reasons: Severe Sepsis, Hypoxic Resp Fail Pneumonia,CHF [facility] Date: 06/24/2025 (p.m. session) PRECAUTIONS: Activity as tolerated. Fall. Droplet and contact precautions. SUBJECTIVE: pt reports he was able to eat his lunch very slowly without being SOB. He reported the meat was the hardest thing. He stated he took very small bites and chewed slowly. OBJECTIVE: ? PAIN: left hip and thigh with weightbearing and with hip flexion ??Therapeutic Exercises (46709s to): Direct one-on-one instruction in therapeutic exercises to develop strength, endurance, range of motion and flexibility. ? ? BED MOBILITY/TRANSFERS? Supine-sit: independent? Sit-supine: independent ? Sit-stand: independent? Stand-sit: independent ? Bed-commode : independent with FWW via stand pivot ? GAIT? Assistive Device: FWW? Weight bearing: AT Assist: SBA, assist for management of lines ? Distance:? 5 feet' x1? Deviation: slow, cautious ambulation. Cues for FWW placement (tends to push walker ahead, requiring trunk flexion). Cues for pacing and breathing throughout seated: therex marching LAQ ankle pumps 2 sets 5 reps BLE with rest period between sets. Today's session consisted of ambulation chair to /from commode and then chair to bed for improved activity tolerance. He struggles to tolerate, with RPE 8 post transfer to from commode then RPE of 9 with chair to bed at end of session. Requires standing x 20 seconds prior to ambulation due to MONTIEL. Recovers in chair to normalized breathing patterns, patient utilizes propping on elbows on his over bed table to normalize breathing pattern ? ASSESSMENT:?Pain in left hip extends from anterior thigh to buttocks. Patient declined further assessment of left hip as he was unable to tolerate supine/semireclined position due to dyspnea. PLAN: Continue PT intervention to maximize activity tolerance and safety. TREATMENT CODE/TIME: [id number] DISCHARGE RECOMMENDATION: Return to SNF with continued PT to improve activity tolerance when medically appropriate
[2025-06-24 16:22] VITALS: BP 160/61; PULSE 74; RESP 16; TEMP 36.7; O2SAT 93
--- NOTE | 2025-06-24 17:20 | PGE_ITS ---
Date of Service Date of service: 06/24/25 Time of Service: 11:00 Assessment and Plan Assessment and plan (1) Legionella pneumonia: Status: Acute Assessment and plan: RUL on admission CT, associated with severe sepsis physiology, which resolved. 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 Risk for TB and anearobes, he will remain on pip/tazo and azithro and respirat ory precautions. Initial guidance from [facility] was three AFB smears, but after discussion with Dr. Swain he and I both feel comfortable this is not TB as long as AFB from BAL negative. I discussed with [facility] 06/20 and they agreed. BAL studies still pending (called lab 06/21), per lab expect 06/22. D/w Dr. Swain 06/21, repeat CT chest and procal. Big drop in procal, so continue same antibiotics. No abscess, but some pleural fluid collecting. Brynn to consider pleuracentesis 06/23. June 23: new small right pleural effusion, no plan for thoracentesis at this time. No plan for pleurocentesis at this time. (2) Acute exacerbation of chronic heart failure: Status: Acute Assessment and plan: Back on home torsemide, fluid status appears stable. (3) Acute exacerbation of chronic obstructive pulmonary disease: Status: Acute Assessment and plan: Being treated with prednisone, chronic inhalers, nebs PRN. Will need slow taper given chronic prednisolone use (admission dose 10mg). Cut to 30mg as he has been here 9 days. (4) Acute kidney injury superimposed on stage 3a chronic kidney disease: Status: Acute Assessment and plan: Improved to near baseline, Cr down slightly 06/22 even after second contrast study on 06/21 (5) Atrial fibrillation: Status: Chronic Assessment and plan: Afib/flutter off/on, mostly aflutter with 4:1 block. Rates are coming down as illness treated. (6) Anemia, chronic disease: Status: Acute Assessment and plan: stable confirmed tranferrin saturation >20% though iron low, c/w chronic disease/CKD. H/o normal electrophoresis (no thalasemmia) EPO candidate, give a dose of aranesp as increasing h/h may help his respiratory status Exam Narrative Exam Narrative: General: This is a pleasant man in no acute distress, in respiratory isolation HEENT: Normocephalic, atraumatic CV: RRR Resp: Diminished lower right breath sounds, otherwise CTAB Abd: NTND MSK: voluntary motion x4 Neuro: Awake, alert, no focal deficits Objective Last Vital Signs Temp 36.7 C 06/24/25 16:22 Pulse 74 06/24/25 16:22 Resp 16 06/24/25 16:22 BP 160/61 H 06/24/25 16:22 Pulse Ox 93 06/24/25 16:22 Laboratory Results - last 24 hr 06/23/25 18:35 Troponin I 18 PAWSS Have you Been Recently Intoxicated or Drunk Within the Last 30 days?: No Have you Ever Experienced Previous Episodes of Alcohol Withdrawal?: No Have you ever Experienced Withdrawal Seizures?: No Have you ever Experienced Delirium Tremens(DT)s?: No Have you ever undergone Alcohol Rehabilitation Treatment (i.e, inpt ot outpatient treatment programs)?: No Have you ever Experienced Blackouts?: No Have you ever Combined Alcohol with other Downers within the last 90 days?: No Have you ever Combined Alcohol with any other Substance of Abuse during the last 90 days?: No Positive Blood Alcohol level on Presentation? [PCS.BAL]: No Evidence of Increased Autonomic Activity (i.e. HR>120, tremor, sweating, agitation, nausea)?: No Result: 0 Time Spent with Patient Time Spent with Patient: 25-34 minutes Time was spent: preparing to see the patient(eg.review tests), obtaining and/or reviewing separately otained hiistory, ordering medications,tests, procedures, referring, communicating with other health care taker, indepentently interpreting results, counseling the patient and care coordination
[2025-06-24 19:52] VITALS: BP 165/67; PULSE 73; RESP 24; TEMP 36; O2SAT 93
[2025-06-25] VITALS (11 sets, daily range): BP systolic 104–146; BP diastolic 63–76; PULSE 72–97; RESP 16–19; TEMP 36.4–37.6; O2SAT 90–97
[2025-06-25] MEDS: PIPERACILLIN/TAZO 3.375 GM in Normal Saline 50 ML IVPB (01:06)
[2025-06-25] MEDS: Normal Saline Flush 10 ML SYR IVP ×4 (01:07→19:59)
[2025-06-25] MEDS: Albuterol/Ipratropium 3 ML UPD VIAL UPD ×2 (07:44→18:34)
[2025-06-25] MEDS: Budesonide/Formoterol 160/4.5 6 GM 60 PUFF INH IH ×2 (07:44→20:02)
--- NOTE | 2025-06-25 07:47 | PGE_ITS ---
General Date Of Service Date of service: 06/25/25 Time of Service: 07:20 Reason for Consult: Pneumonia Recommendations: Assessment: 1. Sepsis - due to pneumonia 2. Legionella pneumonia - urine legionella ag positive. Infectious workup also positive for MRSA nasal swab. Bld cultures negative. AFB and sputum smears negative. AFB and fungal BAL cultures pending 3. Right pleural effusion - suspect simple parapneumonic effusion - trace right effusion on POCUS US this AM. Appears to have slightly decreased in size compared to 06/23. 4. COPD exacerbation - underlying class 2E COPD - improved 5. Acute on chronic renal failure - Cr improved to 1.6 6. Pulmonary nodules - ~1.5 cm partially calcified nodule in the anterior RUL with a smaller satellite nodule - stable from 08/2020 to 06/2025, suggesting a benign etiology Plan: - given low clinical suspicion for active TB, negative BAL AFB smear, and negative sputum AFB smear, OK to take out of airborne isolation - has completed > 7 days of anaerobic coverage. No abscess on CT imaging, so can d/c zosyn. Plan to complete 14 days of azithromycin for legionella pneumonia - continue prednisone 10 mg daily - anticipate that he will be ready for discharge in the AM - continue ICS/LABA - duoneb PRN - his pleural effusion is very small. Would be difficult to even drain with thoracentesis given small size. Will see in clinic next week to re-evaluate Discussed with Dr. Ferrari Subjective Note Note: Patient is a 74 yo with a history of COPD, CAD, tobacco abuse and CKD who was admitted for right upper lobe pneumonia. He reported feeling unwell since 01/2025. Has had intermittent evaluations since that time. Symptoms worsened recently, prompting his current admission. Reports subjective fevers at home. Has a cough but not producing sputum. Denied any hemoptysis. No chest pain. CT chest showed a severe RUL pneumonia. No pleural effusions. He has a 1.5 cm partially calficied nodule that has been stable for years. He has very poor dentition. Denied any aspiration episodes. No known TB exposures. Currently living in nursing facility / assisted living. Bronchoscopy completed 06/17 with BAL of the RUL. Remains on room air. Has had some thick sputum production overnight. No hemoptysis. No right sided chest pain. Smoking history: smoked 1 ppd x 50 years. Active TB exposures: no known exposures ROS: 6 pt ROS negative except as in HPI Exam Narrative Exam Narrative: General: alert, no acute distress Head: normocephalic ENT: no stridor, trachea midline, poor dentition CV: normal rate, regular rhythm Respiratory: no wheezing, no crackles, right sided rhonchi, no prolonged expiration GI: abd soft, non-tender, non-distended Skin: no rashes Extremities: trace edema, no digital clubbing Psych: normal affect Objective Last Vital Signs Temp 36.6 C 06/25/25 07:32 Pulse 92 H 06/25/25 07:44 Resp 19 06/25/25 07:44 BP 143/67 H 06/25/25 07:32 Pulse Ox 95 06/25/25 07:45 Results Medications Medications: Active Medications Generic Name Dose Route Start Last Admin Trade Name Freq PRN Reason Stop Dose Admin Acetaminophen 650 mg 06/13/25 12:22 06/19/25 01:09 Acetaminophen 325 Mg Tab PO 650 mg Q4H PRN PRN Administration Al Hydrox/Mg Hydrox/Simethicone 30 ml 06/13/25 12:22 Mylanta Suspension 30 Ml Cup PO Q2H PRN PRN Albuterol Sulfate 2 puff 06/13/25 14:06 06/24/25 19:47 Albuterol Hfa 8 Gm 60 Puff Inh IH 2 puffs Q4H PRN PRN Administration Albuterol/Ipratropium 3 ml 06/25/25 07:47 Albuterol/Ipratropium 3 Ml Upd Vial UPD Q4H PRN PRN Budesonide/Formoterol Fumarate 2 puff 06/23/25 08:30 06/25/25 07:44 Budesonide/Formoterol 160/4.5 6 Gm 60 Puff Inh IH 2 puffs BID MAIA Administration Carvedilol 25 mg 06/17/25 08:30 06/24/25 21:09 Carvedilol 25 Mg Tab PO 25 mg BID MAIA Administration Diltiazem HCl 30 mg 06/19/25 20:00 06/24/25 21:09 Diltiazem 30 Mg Tab PO 30 mg TID MAIA Administration Docusate Sodium 100 mg 06/13/25 20:00 06/24/25 21:10 Docusate Sodium 100 Mg/10 Ml Cup PO Not Given TID [facility] Guaifenesin 600 mg 06/13/25 20:00 06/24/25 21:09 Guaifenesin 600 Mg Tabcr PO 600 mg BID MAIA Administration Hydroxyzine HCl 10 mg 06/16/25 09:11 06/16/25 20:45 Hydroxyzine Hcl 10 Mg Tab PO 10 mg TID PRN PRN Administration Piperacillin Sod/Tazobactam 50 mls @ 12.5 mls/hr 06/17/25 08:30 06/25/25 05:10 Sod 3.375 gm/ Sodium Chloride IVPB Infused Q8H [facility] Infusion Azithromycin 500 mg/ Sodium 250 mls @ 250 mls/hr 06/24/25 12:00 06/24/25 16:12 Chloride IVPB Infused Q24H [facility] Infusion IV Miscellaneous Supplies 1 each 06/13/25 12:22 Iv Access IV DIRECTED [facility] Lidocaine HCl 30 ml 06/16/25 09:00 Lidocaine 2% Viscous 15 Ml Cup PO DIRECTED [facility] Lidocaine HCl 10 ml 06/16/25 08:45 Lidocaine 1% Multi-Dose 20 Ml Vial IJ DIRECTED [facility] Lidocaine HCl 6 ml 06/16/25 08:45 Lidocaine 2% Multi-Dose 20 Ml Vial IJ DIRECTED [facility] Lisinopril 2.5 mg 06/17/25 08:30 06/24/25 08:27 Lisinopril 2.5 Mg Tab PO 2.5 mg DAILY [facility] Administration Lorazepam 0.5 mg 06/13/25 22:16 06/23/25 15:46 Lorazepam 0.5 Mg Tab PO 0.5 mg Q4H PRN PRN Administration Morphine Sulfate 2 mg 06/14/25 01:07 06/18/25 07:49 Morphine 2 Mg/Ml Syr IVP 2 mg Q2H PRN PRN Administration Nicotine 21 mg 06/14/25 08:30 06/24/25 08:28 Nicotine 21 Mg/24 Hr Patch TD 21 mg DAILY [facility] Administration Oxycodone HCl 5 - 10 mg 06/18/25 14:24 06/18/25 20:50 Oxycodone 5 Mg Tab PO 5 mg Q4H PRN PRN Administration Pantoprazole Sodium 40 mg 06/14/25 07:30 06/24/25 08:27 Pantoprazole 40 Mg Tabcr PO 40 mg DAILY@0730 [facility] Administration Polyethylene Glycol 17 gm 06/13/25 12:22 Polyethylene Glycol 3350 17 Gm Packet PO DAILY PRN PRN Constipation Prednisone 10 mg 06/23/25 08:30 06/24/25 08:28 Prednisone 10 Mg Tab PO 10 mg DAILY MAIA Administration Sodium Chloride 0 ml 06/13/25 12:22 06/25/25 01:07 Normal Saline Flush 10 Ml Syr IVP 10 ml PRN PRN Administration Sodium Chloride 0 ml 06/13/25 20:00 06/24/25 21:09 Normal Saline Flush 10 Ml Syr IVP 10 ml BID MAIA Administration Sodium Chloride 0 ml 06/13/25 12:22 Normal Saline 10 Ml Vial IJ DIRECTED PRN Torsemide 20 mg 06/20/25 08:30 06/24/25 08:27 Torsemide 20 Mg Tab PO 20 mg DAILY MAIA Administration Venlafaxine HCl 75 mg 06/14/25 08:30 06/24/25 08:27 Venlafaxine 75 Mg Capcr PO 75 mg DAILY MAIA Administration Allergies lisinopril Adverse Reaction (Unknown, Unverified 05/03/25 02:05) low BP, worsening CKD codeine phosphate (From Tylenol-Codeine) Adverse Reaction (Unverified 05/03/25 02:05) constipation Labs 06/23/25 05:59 06/22/25 06:08 Labs: 06/13/25 10:05 Blood Blood Culture - Final NO GROWTH 120 HOURS 06/13/25 10:20 Blood Blood Culture - Final NO GROWTH 120 HOURS 06/14/25 00:34 Urine - Reflex from Ua Urine Culture - Final Gram positive asaf, mixed Laboratory Tests Range/Units 06/13/25 06/13/25 06/13/25 08:00 09:55 10:20 WBC (4.4-10.8) 10^3/uL 34.34 H* RBC (4.36-5.78) 10^6/uL 4.74 Hgb (13.5-17.5) g/dL 10.1 L Hct (40.0-50.0) % 33.2 L MCV (80-95) fL 70 L MCH (27.0-33.0) pg 21.3 L MCHC (32.0-36.0) % 30.4 L RDW (11.8-14.1) % 17.8 H Plt Count (130-400) 10^3/uL 443 H MPV (8.0-11.0) fL 10.0 Immature Gran % % 0.0 Neutrophils % % 86.0 Lymphocytes % % 11.0 Monocytes % % 3.0 Eosinophils % % 0.0 Basophils % % 0.0 Nucleated RBC % (0.0-0.3) % 1.0 H Absolute Neutrophils (1.2-6.7) 10^3/uL 29.53 H Absolute Lymphocytes (1.2-3.4) 10^3/uL 3.78 H Absolute Monocytes (0.1-0.8) 10^3/uL 1.03 H Absolute Eosinophils (0.0-0.7) 10^3/uL 0.00 Absolute Basophils (0.0-0.2) 10^3/uL 0.00 RBC Morphology Normal Polychromasia Hypochromasia Poikilocytosis Anisocytosis Microcytosis ABG Sample Site ABG pH ABG pCO2 ABG pO2 ABG HCO3 ABG Total CO2 ABG O2 Saturation ABG Base Excess VBG pH (7.31-7.41) 7.38 VBG pCO2 (41-51) mmHg 37 L VBG pO2 mmHg 51 VBG HCO3 (23-28) mmol/L 22 L VBG Total CO2 (24-29) mmol/L 21 L VBG O2 Saturation % 86 VBG Base Excess (-2-3) mmol/L -3 L VBG Lactate (<or=2.0) mmol/L 2.6 H* Oxygen Liter Flow FiO2 Sodium (136-145) mmol/L 139 Potassium (3.5-5.1) mmol/L 4.1 Chloride (98-107) mmol/L 101 Carbon Dioxide (21.0-32.0) mmol/L 25.8 Anion Gap (3-11) mmol/L 12.2 H BUN (7-18) mg/dL 36 H Creatinine (0.70-1.30) mg/dL 1.9 H Est GFR (CKD-EPI 2020) (mL/min/1.73m2) 37.02 Glucose (74-106) mg/dL 117 H Calcium (8.5-10.1) mg/dL 8.8 Magnesium (1.8-2.4) mg/dL 2.0 Iron (65-175) ug/dL TIBC (250-450) ug/dL Transferrin % Sat (20-55) % Total Bilirubin (0.2-1.0) mg/dL 2.2 H AST (15-37) U/L 13 L ALT (16-63) U/L 16 Alkaline Phosphatase (46-116) U/L 64 Troponin I (<or=76) ng/L 61 79 H* NT-Pro-B Natriuret Pep (<300) pg/mL 9159 H Total Protein (6.4-8.2) g/dL 7.1 Albumin (3.4-5.0) g/dL 3.1 L Procalcitonin ng/mL Urine Color (Yellow) Urine Clarity (Clear) Urine pH (5-8) Ur Specific [place] (1.005-1.025) Urine Protein (Neg-Trace) mg/dL Urine Ketones (Negative) mg/dL Urine Blood (Negative) Urine Nitrite (Negative) Urine Bilirubin (Negative) Urine Urobilinogen (Up to 0.2) mg/dL Ur Leukocyte Esterase (Negative) Urine RBC (0-2) HPF Urine WBC (0-5) HPF Ur Epithelial Cells (Negative) HPF Urine Crystals (Negative) HPF Urine Bacteria (Negative) HPF Urine Casts (Negative) LPF Urine Mucus (Negative) Ur Culture Indicated? Urine Glucose (Negative) mg/dL BAL Neutrophils BAL Lymphocytes BAL Eosinophils BAL Basophils BAL Monocyte/Macrophage BAL Path Comment Random Vancomycin ug/mL Gram Stain COVID-19 Source SARS-CoV-2 (PCR) (Negative) Influenza Type A (PCR) (Negative) Influenza Type B (PCR) (Negative) Urine Legionella Ag (Negative) M. pneumoniae Interp Mycoplasma pneumon IgG (Negative) Mycoplasma pneumon IgM (Negative) M.pneumoniae IgM (IFA) (Negative) RSV (PCR) (Negative) MRSA (TEM-PCR) (Negative) Ur Strep pneumoniae Ag (Negative) TB Test Ag - Nil 1 IU/mL 0.00 TB Test Ag - Nil 2 IU/mL 0.00 TB Test (QFT) Interp (Negative) Negative Aerobic Culture Add-On Test Request Ref Test Specimen Type Ref Report Verification Range/Units 06/13/25 06/13/25 06/13/25 11:04 13:40 13:51 WBC (4.4-10.8) 10^3/uL RBC (4.36-5.78) 10^6/uL Hgb (13.5-17.5) g/dL Hct (40.0-50.0) % MCV (80-95) fL MCH (27.0-33.0) pg MCHC (32.0-36.0) % RDW (11.8-14.1) % Plt Count (130-400) 10^3/uL MPV (8.0-11.0) fL Immature Gran % % Neutrophils % % Lymphocytes % % Monocytes % % Eosinophils % % Basophils % % Nucleated RBC % (0.0-0.3) % Absolute Neutrophils (1.2-6.7) 10^3/uL Absolute Lymphocytes (1.2-3.4) 10^3/uL Absolute Monocytes (0.1-0.8) 10^3/uL Absolute Eosinophils (0.0-0.7) 10^3/uL Absolute Basophils (0.0-0.2) 10^3/uL RBC Morphology Polychromasia Hypochromasia Poikilocytosis Anisocytosis Microcytosis ABG Sample Site ABG pH ABG pCO2 ABG pO2 ABG HCO3 ABG Total CO2 ABG O2 Saturation ABG Base Excess VBG pH (7.31-7.41) VBG pCO2 (41-51) mmHg VBG pO2 mmHg VBG HCO3 (23-28) mmol/L VBG Total CO2 (24-29) mmol/L VBG O2 Saturation % VBG Base Excess (-2-3) mmol/L VBG Lactate (<or=2.0) mmol/L 4.0 H* Oxygen Liter Flow FiO2 Sodium (136-145) mmol/L Potassium (3.5-5.1) mmol/L Chloride (98-107) mmol/L Carbon Dioxide (21.0-32.0) mmol/L Anion Gap (3-11) mmol/L BUN (7-18) mg/dL Creatinine (0.70-1.30) mg/dL Est GFR (CKD-EPI 2020) (mL/min/1.73m2) Glucose (74-106) mg/dL Calcium (8.5-10.1) mg/dL Magnesium (1.8-2.4) mg/dL Iron (65-175) ug/dL TIBC (250-450) ug/dL Transferrin % Sat (20-55) % Total Bilirubin (0.2-1.0) mg/dL AST (15-37) U/L ALT (16-63) U/L Alkaline Phosphatase (46-116) U/L Troponin I (<or=76) ng/L 89 H* Cancelled NT-Pro-B Natriuret Pep (<300) pg/mL Total Protein (6.4-8.2) g/dL Albumin (3.4-5.0) g/dL Procalcitonin ng/mL Urine Color (Yellow) Urine Clarity (Clear) Urine pH (5-8) Ur Specific [place] (1.005-1.025) Urine Protein (Neg-Trace) mg/dL Urine Ketones (Negative) mg/dL Urine Blood (Negative) Urine Nitrite (Negative) Urine Bilirubin (Negative) Urine Urobilinogen (Up to 0.2) mg/dL Ur Leukocyte Esterase (Negative) Urine RBC (0-2) HPF Urine WBC (0-5) HPF Ur Epithelial Cells (Negative) HPF Urine Crystals (Negative) HPF Urine Bacteria (Negative) HPF Urine Casts (Negative) LPF Urine Mucus (Negative) Ur Culture Indicated? Urine Glucose (Negative) mg/dL BAL Neutrophils BAL Lymphocytes BAL Eosinophils BAL Basophils BAL Monocyte/Macrophage BAL Path Comment Random Vancomycin ug/mL Gram Stain COVID-19 Source Nasopharynx SARS-CoV-2 (PCR) (Negative) Negative Influenza Type A (PCR) (Negative) Negative Influenza Type B (PCR) (Negative) Negative Urine Legionella Ag (Negative) M. pneumoniae Interp Mycoplasma pneumon IgG (Negative) Mycoplasma pneumon IgM (Negative) M.pneumoniae IgM (IFA) (Negative) RSV (PCR) (Negative) Negative MRSA (TEM-PCR) (Negative) Ur Strep pneumoniae Ag (Negative) TB Test Ag - Nil 1 IU/mL TB Test Ag - Nil 2 IU/mL TB Test (QFT) Interp (Negative) Aerobic Culture Add-On Test Request Ref Test Specimen Type Ref Report Verification Range/Units 06/13/25 06/14/25 06/14/25 17:50 00:34 03:33 WBC (4.4-10.8) 10^3/uL RBC (4.36-5.78) 10^6/uL Hgb (13.5-17.5) g/dL Hct (40.0-50.0) % MCV (80-95) fL MCH (27.0-33.0) pg MCHC (32.0-36.0) % RDW (11.8-14.1) % Plt Count (130-400) 10^3/uL MPV (8.0-11.0) fL Immature Gran % % Neutrophils % % Lymphocytes % % Monocytes % % Eosinophils % % Basophils % % Nucleated RBC % (0.0-0.3) % Absolute Neutrophils (1.2-6.7) 10^3/uL Absolute Lymphocytes (1.2-3.4) 10^3/uL Absolute Monocytes (0.1-0.8) 10^3/uL Absolute Eosinophils (0.0-0.7) 10^3/uL Absolute Basophils (0.0-0.2) 10^3/uL RBC Morphology Polychromasia Hypochromasia Poikilocytosis Anisocytosis Microcytosis ABG Sample Site Cancelled ABG pH Cancelled ABG pCO2 Cancelled ABG pO2 Cancelled ABG HCO3 Cancelled ABG Total CO2 Cancelled ABG O2 Saturation Cancelled ABG Base Excess Cancelled VBG pH (7.31-7.41) VBG pCO2 (41-51) mmHg VBG pO2 mmHg VBG HCO3 (23-28) mmol/L VBG Total CO2 (24-29) mmol/L VBG O2 Saturation % VBG Base Excess (-2-3) mmol/L VBG Lactate (<or=2.0) mmol/L 2.0 Oxygen Liter Flow Cancelled FiO2 Cancelled Sodium (136-145) mmol/L Potassium (3.5-5.1) mmol/L Chloride (98-107) mmol/L Carbon Dioxide (21.0-32.0) mmol/L Anion Gap (3-11) mmol/L BUN (7-18) mg/dL Creatinine (0.70-1.30) mg/dL Est GFR (CKD-EPI 2020) (mL/min/1.73m2) Glucose (74-106) mg/dL Calcium (8.5-10.1) mg/dL Magnesium (1.8-2.4) mg/dL Iron (65-175) ug/dL TIBC (250-450) ug/dL Transferrin % Sat (20-55) % Total Bilirubin (0.2-1.0) mg/dL AST (15-37) U/L ALT (16-63) U/L Alkaline Phosphatase (46-116) U/L Troponin I (<or=76) ng/L NT-Pro-B Natriuret Pep (<300) pg/mL Total Protein (6.4-8.2) g/dL Albumin (3.4-5.0) g/dL Procalcitonin ng/mL Urine Color (Yellow) Yellow Urine Clarity (Clear) Clear Urine pH (5-8) 6.0 Ur Specific [place] (1.005-1.025) 1.015 Urine Protein (Neg-Trace) mg/dL >=300 H Urine Ketones (Negative) mg/dL Negative Urine Blood (Negative) Trace-intact H Urine Nitrite (Negative) Negative Urine Bilirubin (Negative) Negative Urine Urobilinogen (Up to 0.2) mg/dL 0.2 Ur Leukocyte Esterase (Negative) Small H Urine RBC (0-2) HPF 3-5 H Urine WBC (0-5) HPF >50 H Ur Epithelial Cells (Negative) HPF Few Urine Crystals (Negative) HPF Negative Urine Bacteria (Negative) HPF Few Urine Casts (Negative) LPF Negative Urine Mucus (Negative) Negative Ur Culture Indicated? Yes Urine Glucose (Negative) mg/dL Negative BAL Neutrophils BAL Lymphocytes BAL Eosinophils BAL Basophils BAL Monocyte/Macrophage BAL Path Comment Random Vancomycin ug/mL Gram Stain COVID-19 Source SARS-CoV-2 (PCR) (Negative) Influenza Type A (PCR) (Negative) Influenza Type B (PCR) (Negative) Urine Legionella Ag (Negative) M. pneumoniae Interp Mycoplasma pneumon IgG (Negative) Mycoplasma pneumon IgM (Negative) M.pneumoniae IgM (IFA) (Negative) RSV (PCR) (Negative) MRSA (TEM-PCR) (Negative) Ur Strep pneumoniae Ag (Negative) TB Test Ag - Nil 1 IU/mL TB Test Ag - Nil 2 IU/mL TB Test (QFT) Interp (Negative) Aerobic Culture Add-On Test Request Ref Test Specimen Type Ref Report Verification Range/Units 06/14/25 06/14/25 06/14/25 03:48 05:59 16:00 WBC (4.4-10.8) 10^3/uL 29.95 H* RBC (4.36-5.78) 10^6/uL 4.36 Hgb (13.5-17.5) g/dL 9.0 L Hct (40.0-50.0) % 29.8 L MCV (80-95) fL 68 L MCH (27.0-33.0) pg 20.6 L MCHC (32.0-36.0) % 30.2 L RDW (11.8-14.1) % 17.1 H Plt Count (130-400) 10^3/uL 410 H MPV (8.0-11.0) fL 10.2 Immature Gran % % 1.9 Neutrophils % % 84.4 Lymphocytes % % 6.9 Monocytes % % 6.3 Eosinophils % % 0.2 Basophils % % 0.3 Nucleated RBC % (0.0-0.3) % 0.1 Absolute Neutrophils (1.2-6.7) 10^3/uL 25.28 H Absolute Lymphocytes (1.2-3.4) 10^3/uL 2.07 Absolute Monocytes (0.1-0.8) 10^3/uL 1.89 H Absolute Eosinophils (0.0-0.7) 10^3/uL 0.06 Absolute Basophils (0.0-0.2) 10^3/uL 0.09 RBC Morphology See Below Polychromasia Hypochromasia Poikilocytosis Anisocytosis Microcytosis 2+ ABG Sample Site Right Radial ABG pH 7.35 ABG pCO2 36 ABG pO2 60 L ABG HCO3 20 L ABG Total CO2 19 L ABG O2 Saturation 89 L ABG Base Excess -6 L VBG pH (7.31-7.41) VBG pCO2 (41-51) mmHg VBG pO2 mmHg VBG HCO3 (23-28) mmol/L VBG Total CO2 (24-29) mmol/L VBG O2 Saturation % VBG Base Excess (-2-3) mmol/L VBG Lactate (<or=2.0) mmol/L Oxygen Liter Flow 15 FiO2 Sodium (136-145) mmol/L 136 Potassium (3.5-5.1) mmol/L 4.2 Chloride (98-107) mmol/L 101 Carbon Dioxide (21.0-32.0) mmol/L 22.4 Anion Gap (3-11) mmol/L 12.6 H BUN (7-18) mg/dL 44 H Creatinine (0.70-1.30) mg/dL 2.2 H Est GFR (CKD-EPI 2020) (mL/min/1.73m2) 31.05 Glucose (74-106) mg/dL 89 Calcium (8.5-10.1) mg/dL 8.8 Magnesium (1.8-2.4) mg/dL Iron (65-175) ug/dL TIBC (250-450) ug/dL Transferrin % Sat (20-55) % Total Bilirubin (0.2-1.0) mg/dL AST (15-37) U/L ALT (16-63) U/L Alkaline Phosphatase (46-116) U/L Troponin I (<or=76) ng/L NT-Pro-B Natriuret Pep (<300) pg/mL Total Protein (6.4-8.2) g/dL Albumin (3.4-5.0) g/dL Procalcitonin ng/mL Urine Color (Yellow) Urine Clarity (Clear) Urine pH (5-8) Ur Specific [place] (1.005-1.025) Urine Protein (Neg-Trace) mg/dL Urine Ketones (Negative) mg/dL Urine Blood (Negative) Urine Nitrite (Negative) Urine Bilirubin (Negative) Urine Urobilinogen (Up to 0.2) mg/dL Ur Leukocyte Esterase (Negative) Urine RBC (0-2) HPF Urine WBC (0-5) HPF Ur Epithelial Cells (Negative) HPF Urine Crystals (Negative) HPF Urine Bacteria (Negative) HPF Urine Casts (Negative) LPF Urine Mucus (Negative) Ur Culture Indicated? Urine Glucose (Negative) mg/dL BAL Neutrophils BAL Lymphocytes BAL Eosinophils BAL Basophils BAL Monocyte/Macrophage BAL Path Comment Random Vancomycin ug/mL Gram Stain COVID-19 Source SARS-CoV-2 (PCR) (Negative) Influenza Type A (PCR) (Negative) Influenza Type B (PCR) (Negative) Urine Legionella Ag (Negative) M. pneumoniae Interp Mycoplasma pneumon IgG (Negative) Mycoplasma pneumon IgM (Negative) M.pneumoniae IgM (IFA) (Negative) RSV (PCR) (Negative) MRSA (TEM-PCR) (Negative) Positive A Ur Strep pneumoniae Ag (Negative) TB Test Ag - Nil 1 IU/mL TB Test Ag - Nil 2 IU/mL TB Test (QFT) Interp (Negative) Aerobic Culture Add-On Test Request Ref Test Specimen Type Ref Report Verification Range/Units 06/14/25 06/15/25 06/16/25 23:35 08:04 05:57 WBC (4.4-10.8) 10^3/uL 21.80 H 13.77 H RBC (4.36-5.78) 10^6/uL 4.31 L 4.14 L Hgb (13.5-17.5) g/dL 8.8 L 8.8 L Hct (40.0-50.0) % 28.4 L 27.4 L MCV (80-95) fL 66 L 66 L MCH (27.0-33.0) pg 20.4 L 21.3 L MCHC (32.0-36.0) % 31.0 L 32.1 RDW (11.8-14.1) % 16.7 H 16.9 H Plt Count (130-400) 10^3/uL 355 359 MPV (8.0-11.0) fL 9.9 10.2 Immature Gran % % 0.4 Neutrophils % % 94.5 Lymphocytes % % 3.2 Monocytes % % 1.9 Eosinophils % % 0.0 Basophils % % 0.0 Nucleated RBC % (0.0-0.3) % 0.7 H Absolute Neutrophils (1.2-6.7) 10^3/uL 13.01 H Absolute Lymphocytes (1.2-3.4) 10^3/uL 0.44 L Absolute Monocytes (0.1-0.8) 10^3/uL 0.26 Absolute Eosinophils (0.0-0.7) 10^3/uL 0.00 Absolute Basophils (0.0-0.2) 10^3/uL 0.00 RBC Morphology Polychromasia Hypochromasia Poikilocytosis Anisocytosis Microcytosis ABG Sample Site ABG pH ABG pCO2 ABG pO2 ABG HCO3 ABG Total CO2 ABG O2 Saturation ABG Base Excess VBG pH (7.31-7.41) 7.34 VBG pCO2 (41-51) mmHg 38 L VBG pO2 mmHg 83 VBG HCO3 (23-28) mmol/L 21 L VBG Total CO2 (24-29) mmol/L 20 L VBG O2 Saturation % 97 VBG Base Excess (-2-3) mmol/L -5 L VBG Lactate (<or=2.0) mmol/L 0.8 Oxygen Liter Flow FiO2 Sodium (136-145) mmol/L 135 L 135 L Potassium (3.5-5.1) mmol/L 4.3 3.6 Chloride (98-107) mmol/L 101 101 Carbon Dioxide (21.0-32.0) mmol/L 24.7 27.5 Anion Gap (3-11) mmol/L 9.3 6.5 BUN (7-18) mg/dL 58 H 67 H Creatinine (0.70-1.30) mg/dL 2.2 H 2.2 H Est GFR (CKD-EPI 2020) (mL/min/1.73m2) 31.05 31.05 Glucose (74-106) mg/dL 161 H 164 H Calcium (8.5-10.1) mg/dL 9.1 9.0 Magnesium (1.8-2.4) mg/dL Iron (65-175) ug/dL TIBC (250-450) ug/dL Transferrin % Sat (20-55) % Total Bilirubin (0.2-1.0) mg/dL 0.9 0.8 AST (15-37) U/L 27 17 ALT (16-63) U/L 15 L 18 Alkaline Phosphatase (46-116) U/L 77 71 Troponin I (<or=76) ng/L NT-Pro-B Natriuret Pep (<300) pg/mL Total Protein (6.4-8.2) g/dL 7.0 7.3 Albumin (3.4-5.0) g/dL 2.5 L 2.8 L Procalcitonin ng/mL 44.60 Urine Color (Yellow) Urine Clarity (Clear) Urine pH (5-8) Ur Specific [place] (1.005-1.025) Urine Protein (Neg-Trace) mg/dL Urine Ketones (Negative) mg/dL Urine Blood (Negative) Urine Nitrite (Negative) Urine Bilirubin (Negative) Urine Urobilinogen (Up to 0.2) mg/dL Ur Leukocyte Esterase (Negative) Urine RBC (0-2) HPF Urine WBC (0-5) HPF Ur Epithelial Cells (Negative) HPF Urine Crystals (Negative) HPF Urine Bacteria (Negative) HPF Urine Casts (Negative) LPF Urine Mucus (Negative) Ur Culture Indicated? Urine Glucose (Negative) mg/dL BAL Neutrophils BAL Lymphocytes BAL Eosinophils BAL Basophils BAL Monocyte/Macrophage BAL Path Comment Random Vancomycin ug/mL Gram Stain COVID-19 Source SARS-CoV-2 (PCR) (Negative) Influenza Type A (PCR) (Negative) Influenza Type B (PCR) (Negative) Urine Legionella Ag (Negative) M. pneumoniae Interp See Comment Mycoplasma pneumon IgG (Negative) Positive A Mycoplasma pneumon IgM (Negative) Reactive A M.pneumoniae IgM (IFA) (Negative) Negative RSV (PCR) (Negative) MRSA (TEM-PCR) (Negative) Ur Strep pneumoniae Ag (Negative) TB Test Ag - Nil 1 IU/mL TB Test Ag - Nil 2 IU/mL TB Test (QFT) Interp (Negative) Aerobic Culture Add-On Test Request Ref Test Specimen Type Ref Report Verification Range/Units 06/16/25 06/17/25 06/17/25 11:48 05:50 11:55 WBC (4.4-10.8) 10^3/uL 17.17 H RBC (4.36-5.78) 10^6/uL 4.22 L Hgb (13.5-17.5) g/dL 8.8 L Hct (40.0-50.0) % 27.1 L MCV (80-95) fL 64 L MCH (27.0-33.0) pg 20.9 L MCHC (32.0-36.0) % 32.5 RDW (11.8-14.1) % 16.9 H Plt Count (130-400) 10^3/uL 376 MPV (8.0-11.0) fL 9.9 Immature Gran % % 0.8 Neutrophils % % 88.4 Lymphocytes % % 6.3 Monocytes % % 4.4 Eosinophils % % 0.0 Basophils % % 0.1 Nucleated RBC % (0.0-0.3) % 0.4 H Absolute Neutrophils (1.2-6.7) 10^3/uL 15.18 H Absolute Lymphocytes (1.2-3.4) 10^3/uL 1.08 L Absolute Monocytes (0.1-0.8) 10^3/uL 0.76 Absolute Eosinophils (0.0-0.7) 10^3/uL 0.00 Absolute Basophils (0.0-0.2) 10^3/uL 0.02 RBC Morphology Polychromasia Hypochromasia Poikilocytosis Anisocytosis Microcytosis ABG Sample Site ABG pH ABG pCO2 ABG pO2 ABG HCO3 ABG Total CO2 ABG O2 Saturation ABG Base Excess VBG pH (7.31-7.41) VBG pCO2 (41-51) mmHg VBG pO2 mmHg VBG HCO3 (23-28) mmol/L VBG Total CO2 (24-29) mmol/L VBG O2 Saturation % VBG Base Excess (-2-3) mmol/L VBG Lactate (<or=2.0) mmol/L 1.0 Oxygen Liter Flow FiO2 Sodium (136-145) mmol/L 142 Potassium (3.5-5.1) mmol/L 3.0 L Chloride (98-107) mmol/L 102 Carbon Dioxide (21.0-32.0) mmol/L 29.8 Anion Gap (3-11) mmol/L 10.2 BUN (7-18) mg/dL 65 H Creatinine (0.70-1.30) mg/dL 1.7 H Est GFR (CKD-EPI 2020) (mL/min/1.73m2) 42.30 Glucose (74-106) mg/dL 126 H Calcium (8.5-10.1) mg/dL 9.0 Magnesium (1.8-2.4) mg/dL 2.1 Iron (65-175) ug/dL 48 L TIBC (250-450) ug/dL 163 L Transferrin % Sat (20-55) % 29 Total Bilirubin (0.2-1.0) mg/dL 0.8 AST (15-37) U/L 12 L ALT (16-63) U/L 19 Alkaline Phosphatase (46-116) U/L 66 Troponin I (<or=76) ng/L NT-Pro-B Natriuret Pep (<300) pg/mL Total Protein (6.4-8.2) g/dL 7.0 Albumin (3.4-5.0) g/dL 2.7 L Procalcitonin ng/mL Urine Color (Yellow) Urine Clarity (Clear) Urine pH (5-8) Ur Specific [place] (1.005-1.025) Urine Protein (Neg-Trace) mg/dL Urine Ketones (Negative) mg/dL Urine Blood (Negative) Urine Nitrite (Negative) Urine Bilirubin (Negative) Urine Urobilinogen (Up to 0.2) mg/dL Ur Leukocyte Esterase (Negative) Urine RBC (0-2) HPF Urine WBC (0-5) HPF Ur Epithelial Cells (Negative) HPF Urine Crystals (Negative) HPF Urine Bacteria (Negative) HPF Urine Casts (Negative) LPF Urine Mucus (Negative) Ur Culture Indicated? Urine Glucose (Negative) mg/dL BAL Neutrophils Not Applicable BAL Lymphocytes Not Applicable BAL Eosinophils Not Applicable BAL Basophils Not Applicable BAL Monocyte/Macrophage Not Applicable BAL Path Comment See Comment Random Vancomycin ug/mL Gram Stain No Neutrophils Seen COVID-19 Source SARS-CoV-2 (PCR) (Negative) Influenza Type A (PCR) (Negative) Influenza Type B (PCR) (Negative) Urine Legionella Ag (Negative) Positive A M. pneumoniae Interp Mycoplasma pneumon IgG (Negative) Mycoplasma pneumon IgM (Negative) M.pneumoniae IgM (IFA) (Negative) RSV (PCR) (Negative) MRSA (TEM-PCR) (Negative) Ur Strep pneumoniae Ag (Negative) Negative TB Test Ag - Nil 1 IU/mL TB Test Ag - Nil 2 IU/mL TB Test (QFT) Interp (Negative) Aerobic Culture SEE BELOW Add-On Test Request Ref Test Specimen Type Not Applicable Ref Report Verification Not Applicable Range/Units 06/17/25 06/18/25 06/19/25 12:32 06:00 06:50 WBC (4.4-10.8) 10^3/uL 14.79 H RBC (4.36-5.78) 10^6/uL 4.18 L Hgb (13.5-17.5) g/dL 8.8 L Hct (40.0-50.0) % 27.0 L MCV (80-95) fL 65 L MCH (27.0-33.0) pg 21.1 L MCHC (32.0-36.0) % 32.6 RDW (11.8-14.1) % 16.9 H Plt Count (130-400) 10^3/uL 380 MPV (8.0-11.0) fL 10.0 Immature Gran % % 0.9 Neutrophils % % 79.5 Lymphocytes % % 12.2 Monocytes % % 6.5 Eosinophils % % 0.8 Basophils % % 0.1 Nucleated RBC % (0.0-0.3) % 0.2 Absolute Neutrophils (1.2-6.7) 10^3/uL 11.76 H Absolute Lymphocytes (1.2-3.4) 10^3/uL 1.80 Absolute Monocytes (0.1-0.8) 10^3/uL 0.96 H Absolute Eosinophils (0.0-0.7) 10^3/uL 0.12 Absolute Basophils (0.0-0.2) 10^3/uL 0.01 RBC Morphology Polychromasia Hypochromasia Poikilocytosis Anisocytosis Microcytosis ABG Sample Site ABG pH ABG pCO2 ABG pO2 ABG HCO3 ABG Total CO2 ABG O2 Saturation ABG Base Excess VBG pH (7.31-7.41) VBG pCO2 (41-51) mmHg VBG pO2 mmHg VBG HCO3 (23-28) mmol/L VBG Total CO2 (24-29) mmol/L VBG O2 Saturation % VBG Base Excess (-2-3) mmol/L VBG Lactate (<or=2.0) mmol/L 1.0 Oxygen Liter Flow FiO2 Sodium (136-145) mmol/L 140 138 Potassium (3.5-5.1) mmol/L 3.2 L 4.2 D Chloride (98-107) mmol/L 102 104 Carbon Dioxide (21.0-32.0) mmol/L 27.6 26.1 Anion Gap (3-11) mmol/L 10.4 7.9 BUN (7-18) mg/dL 54 H 52 H Creatinine (0.70-1.30) mg/dL 1.7 H 1.7 H Est GFR (CKD-EPI 2020) (mL/min/1.73m2) 42.30 42.30 Glucose (74-106) mg/dL 121 H 96 Calcium (8.5-10.1) mg/dL 8.7 9.0 Magnesium (1.8-2.4) mg/dL 1.9 Iron (65-175) ug/dL TIBC (250-450) ug/dL Transferrin % Sat (20-55) % Total Bilirubin (0.2-1.0) mg/dL 0.9 AST (15-37) U/L 10 L ALT (16-63) U/L 17 Alkaline Phosphatase (46-116) U/L 62 Troponin I (<or=76) ng/L NT-Pro-B Natriuret Pep (<300) pg/mL Total Protein (6.4-8.2) g/dL 6.6 Albumin (3.4-5.0) g/dL 2.6 L Procalcitonin ng/mL Urine Color (Yellow) Urine Clarity (Clear) Urine pH (5-8) Ur Specific [place] (1.005-1.025) Urine Protein (Neg-Trace) mg/dL Urine Ketones (Negative) mg/dL Urine Blood (Negative) Urine Nitrite (Negative) Urine Bilirubin (Negative) Urine Urobilinogen (Up to 0.2) mg/dL Ur Leukocyte Esterase (Negative) Urine RBC (0-2) HPF Urine WBC (0-5) HPF Ur Epithelial Cells (Negative) HPF Urine Crystals (Negative) HPF Urine Bacteria (Negative) HPF Urine Casts (Negative) LPF Urine Mucus (Negative) Ur Culture Indicated? Urine Glucose (Negative) mg/dL BAL Neutrophils BAL Lymphocytes BAL Eosinophils BAL Basophils BAL Monocyte/Macrophage BAL Path Comment Random Vancomycin ug/mL 9.5 Gram Stain COVID-19 Source SARS-CoV-2 (PCR) (Negative) Influenza Type A (PCR) (Negative) Influenza Type B (PCR) (Negative) Urine Legionella Ag (Negative) M. pneumoniae Interp Mycoplasma pneumon IgG (Negative) Mycoplasma pneumon IgM (Negative) M.pneumoniae IgM (IFA) (Negative) RSV (PCR) (Negative) MRSA (TEM-PCR) (Negative) Ur Strep pneumoniae Ag (Negative) TB Test Ag - Nil 1 IU/mL TB Test Ag - Nil 2 IU/mL TB Test (QFT) Interp (Negative) Aerobic Culture Add-On Test Request DONE Ref Test Specimen Type Ref Report Verification Range/Units 06/20/25 06/21/25 06/21/25 07:00 11:45 15:30 WBC (4.4-10.8) 10^3/uL 17.98 H 18.51 H RBC (4.36-5.78) 10^6/uL 4.12 L 4.03 L Hgb (13.5-17.5) g/dL 8.5 L 8.3 L Hct (40.0-50.0) % 26.9 L 26.6 L MCV (80-95) fL 65 L 66 L MCH (27.0-33.0) pg 20.6 L 20.6 L MCHC (32.0-36.0) % 31.6 L 31.2 L RDW (11.8-14.1) % 17.6 H 17.5 H Plt Count (130-400) 10^3/uL 491 H 539 H MPV (8.0-11.0) fL 9.9 9.4 Immature Gran % % 4.3 Neutrophils % % 86.5 Lymphocytes % % 5.6 Monocytes % % 2.4 Eosinophils % % 1.0 Basophils % % 0.2 Nucleated RBC % (0.0-0.3) % 0.2 Absolute Neutrophils (1.2-6.7) 10^3/uL 16.01 H Absolute Lymphocytes (1.2-3.4) 10^3/uL 1.04 L Absolute Monocytes (0.1-0.8) 10^3/uL 0.44 Absolute Eosinophils (0.0-0.7) 10^3/uL 0.19 Absolute Basophils (0.0-0.2) 10^3/uL 0.04 RBC Morphology See Below Polychromasia Present Hypochromasia 1+ Poikilocytosis 2+ Anisocytosis 1+ Microcytosis 2+ ABG Sample Site ABG pH ABG pCO2 ABG pO2 ABG HCO3 ABG Total CO2 ABG O2 Saturation ABG Base Excess VBG pH (7.31-7.41) VBG pCO2 (41-51) mmHg VBG pO2 mmHg VBG HCO3 (23-28) mmol/L VBG Total CO2 (24-29) mmol/L VBG O2 Saturation % VBG Base Excess (-2-3) mmol/L VBG Lactate (<or=2.0) mmol/L Oxygen Liter Flow FiO2 Sodium (136-145) mmol/L 140 Potassium (3.5-5.1) mmol/L 3.5 Chloride (98-107) mmol/L 106 Carbon Dioxide (21.0-32.0) mmol/L 25.7 Anion Gap (3-11) mmol/L 8.3 BUN (7-18) mg/dL 48 H Creatinine (0.70-1.30) mg/dL 1.7 H Est GFR (CKD-EPI 2020) (mL/min/1.73m2) 42.30 Glucose (74-106) mg/dL 112 H Calcium (8.5-10.1) mg/dL 8.7 Magnesium (1.8-2.4) mg/dL Iron (65-175) ug/dL TIBC (250-450) ug/dL Transferrin % Sat (20-55) % Total Bilirubin (0.2-1.0) mg/dL AST (15-37) U/L ALT (16-63) U/L Alkaline Phosphatase (46-116) U/L Troponin I (<or=76) ng/L NT-Pro-B Natriuret Pep (<300) pg/mL Total Protein (6.4-8.2) g/dL Albumin (3.4-5.0) g/dL Procalcitonin ng/mL 0.65 Urine Color (Yellow) Urine Clarity (Clear) Urine pH (5-8) Ur Specific [place] (1.005-1.025) Urine Protein (Neg-Trace) mg/dL Urine Ketones (Negative) mg/dL Urine Blood (Negative) Urine Nitrite (Negative) Urine Bilirubin (Negative) Urine Urobilinogen (Up to 0.2) mg/dL Ur Leukocyte Esterase (Negative) Urine RBC (0-2) HPF Urine WBC (0-5) HPF Ur Epithelial Cells (Negative) HPF Urine Crystals (Negative) HPF Urine Bacteria (Negative) HPF Urine Casts (Negative) LPF Urine Mucus (Negative) Ur Culture Indicated? Urine Glucose (Negative) mg/dL BAL Neutrophils BAL Lymphocytes BAL Eosinophils BAL Basophils BAL Monocyte/Macrophage BAL Path Comment Random Vancomycin ug/mL Gram Stain COVID-19 Source SARS-CoV-2 (PCR) (Negative) Influenza Type A (PCR) (Negative) Influenza Type B (PCR) (Negative) Urine Legionella Ag (Negative) M. pneumoniae Interp Mycoplasma pneumon IgG (Negative) Mycoplasma pneumon IgM (Negative) M.pneumoniae IgM (IFA) (Negative) RSV (PCR) (Negative) MRSA (TEM-PCR) (Negative) Ur Strep pneumoniae Ag (Negative) TB Test Ag - Nil 1 IU/mL TB Test Ag - Nil 2 IU/mL TB Test (QFT) Interp (Negative) Aerobic Culture Add-On Test Request Ref Test Specimen Type Ref Report Verification Range/Units 06/22/25 06/23/25 06/23/25 06:08 05:59 18:35 WBC (4.4-10.8) 10^3/uL 15.26 H RBC (4.36-5.78) 10^6/uL 4.09 L Hgb (13.5-17.5) g/dL 8.4 L Hct (40.0-50.0) % 26.9 L MCV (80-95) fL 66 L MCH (27.0-33.0) pg 20.5 L MCHC (32.0-36.0) % 31.2 L RDW (11.8-14.1) % 17.6 H Plt Count (130-400) 10^3/uL 662 H MPV (8.0-11.0) fL 9.3 Immature Gran % % 5.7 Neutrophils % % 67.9 Lymphocytes % % 19.8 Monocytes % % 5.7 Eosinophils % % 0.7 Basophils % % 0.2 Nucleated RBC % (0.0-0.3) % 0.3 Absolute Neutrophils (1.2-6.7) 10^3/uL 10.36 H Absolute Lymphocytes (1.2-3.4) 10^3/uL 3.02 Absolute Monocytes (0.1-0.8) 10^3/uL 0.87 H Absolute Eosinophils (0.0-0.7) 10^3/uL 0.11 Absolute Basophils (0.0-0.2) 10^3/uL 0.03 RBC Morphology Polychromasia Hypochromasia Poikilocytosis Anisocytosis Microcytosis ABG Sample Site ABG pH ABG pCO2 ABG pO2 ABG HCO3 ABG Total CO2 ABG O2 Saturation ABG Base Excess VBG pH (7.31-7.41) VBG pCO2 (41-51) mmHg VBG pO2 mmHg VBG HCO3 (23-28) mmol/L VBG Total CO2 (24-29) mmol/L VBG O2 Saturation % VBG Base Excess (-2-3) mmol/L VBG Lactate (<or=2.0) mmol/L Oxygen Liter Flow FiO2 Sodium (136-145) mmol/L 141 Potassium (3.5-5.1) mmol/L 3.8 Chloride (98-107) mmol/L 106 Carbon Dioxide (21.0-32.0) mmol/L 26.1 Anion Gap (3-11) mmol/L 8.9 BUN (7-18) mg/dL 44 H Creatinine (0.70-1.30) mg/dL 1.6 H Est GFR (CKD-EPI 2020) (mL/min/1.73m2) 45.50 Glucose (74-106) mg/dL 94 Calcium (8.5-10.1) mg/dL 8.8 Magnesium (1.8-2.4) mg/dL Iron (65-175) ug/dL TIBC (250-450) ug/dL Transferrin % Sat (20-55) % Total Bilirubin (0.2-1.0) mg/dL AST (15-37) U/L ALT (16-63) U/L Alkaline Phosphatase (46-116) U/L Troponin I (<or=76) ng/L 18 NT-Pro-B Natriuret Pep (<300) pg/mL Total Protein (6.4-8.2) g/dL Albumin (3.4-5.0) g/dL Procalcitonin ng/mL Urine Color (Yellow) Urine Clarity (Clear) Urine pH (5-8) Ur Specific [place] (1.005-1.025) Urine Protein (Neg-Trace) mg/dL Urine Ketones (Negative) mg/dL Urine Blood (Negative) Urine Nitrite (Negative) Urine Bilirubin (Negative) Urine Urobilinogen (Up to 0.2) mg/dL Ur Leukocyte Esterase (Negative) Urine RBC (0-2) HPF Urine WBC (0-5) HPF Ur Epithelial Cells (Negative) HPF Urine Crystals (Negative) HPF Urine Bacteria (Negative) HPF Urine Casts (Negative) LPF Urine Mucus (Negative) Ur Culture Indicated? Urine Glucose (Negative) mg/dL BAL Neutrophils BAL Lymphocytes BAL Eosinophils BAL Basophils BAL Monocyte/Macrophage BAL Path Comment Random Vancomycin ug/mL Gram Stain COVID-19 Source SARS-CoV-2 (PCR) (Negative) Influenza Type A (PCR) (Negative) Influenza Type B (PCR) (Negative) Urine Legionella Ag (Negative) M. pneumoniae Interp Mycoplasma pneumon IgG (Negative) Mycoplasma pneumon IgM (Negative) M.pneumoniae IgM (IFA) (Negative) RSV (PCR) (Negative) MRSA (TEM-PCR) (Negative) Ur Strep pneumoniae Ag (Negative) TB Test Ag - Nil 1 IU/mL TB Test Ag - Nil 2 IU/mL TB Test (QFT) Interp (Negative) Aerobic Culture Add-On Test Request Ref Test Specimen Type Ref Report Verification Imaging CT scan - chest: report reviewed and image reviewed POCUS Pulmonology Limited thoracic lung Exam DATE OF EXAM: 06/25/25 TIME OF EXAM: 07:20 PROVIDER THAT PERFORMED THE STUDY: Wiliam Swain IS THIS A REPEAT STUDY: Yes Same provider REASON FOR EXAM: Pleural Effusion Visualized structures: right lateral, left lateral, right posterior and left posterior PERTINENT FINDINGS/IMPRESSION: Present Right pleural effusion (Trace) Exam complete
[2025-06-25] MEDS: Docusate Sodium 100 MG/10 ML CUP PO (08:04)
[2025-06-25] MEDS: Nicotine 21 MG/24 HR PATCH TD (08:04)
[2025-06-25] MEDS: Venlafaxine 75 MG CAPCR PO (08:05)
[2025-06-25] MEDS: Pantoprazole 40 MG TABCR PO (08:05)
[2025-06-25] MEDS: guaiFENesin 600 MG TABCR PO ×2 (08:05→19:56)
[2025-06-25] MEDS: predniSONE 10 MG TAB PO (08:05)
[2025-06-25] MEDS: Torsemide 20 MG TAB PO (08:05)
[2025-06-25] MEDS: Carvedilol 25 MG TAB PO ×2 (08:06→19:56)
[2025-06-25] MEDS: dilTIAZem 30 MG TAB PO ×3 (08:06→19:56)
[2025-06-25] MEDS: Lisinopril 2.5 MG TAB PO (08:06)
--- NOTE | 2025-06-25 09:11 | CMPROGNOTE_ITS ---
Date of service: 06/25/25 Time of Service: 09:11 Care Management Progress Note Progress Note Text Progress Note Text: Elroy was sitting up in bed when CM met with him. All of the TB test result are back and his isolation was discontinued this morning. He is medically ready to be discharged back [facility]. When CM contacted the facility to arrange the transfer, CM was informed that Paul had been discharged from the facility as he exceeded the 10 day bed hold. Neither Elroy nor BRYAN was aware that his bed was in jeopardy as no communication was received from the facility. BRYAN spoke with the Relationship Management Lead for all of the [facility] facilities in [place], who was able to offer Elroy a bed at the [facility]. Elroy was disappointed that it was so far away as his chair inspector is in [facility]. Given that he was admitted with both Legionnaire's Disease and Mycoplasm Pneumonia, pulmonary follow up is essential to his continued recovery. He has agreed to accept the bed if he can be transported to his appointment next Monday. CM communicated this to the director emergency who will see if it can be arranged. Discharge Potential Discharge Needs: Other (SNF) Anticipated Barriers to Discharge: Medical Status Patient/Family Education Needs: Review discharge instructions, discuss Ask Me Three Transportation: RCT Plan: Anticipate Elroy will be transferred back to [facility] when medically cleared. He will follow up with his facility providers and plan of care and transport via RCT. CM will follow and continue to support discharge planning. Social Determinants of Health Screening Will the Patient Participate in the Screening?: Declined to provide Do you worry about having a steady place to live?: no In the past 12 months, have you had to go without electric, gas, oil or water in your home?: no Comments: lives in a rehab facility
--- NOTE | 2025-06-25 09:44 | W.PM.HP.N ---
[facility] All Active Problems (Updated 06/23/25 @ 19:48 by Domingo Ferrari MD) Legionella pneumonia (Acute) Anemia, chronic disease (Acute) Distended abdomen (Acute) Lung mass (Acute) Acute kidney injury superimposed on stage 3a chronic kidney disease (Acute) Severe sepsis (Acute) Sepsis (Acute) CARLOS MANUEL (acute kidney injury) (Acute) Acute exacerbation of chronic obstructive pulmonary disease (Acute) Acute exacerbation of chronic heart failure (Acute) DNR (do not resuscitate) (Acute) As of 05/13/2025: Code status frequently changing. As of 05/13/2025: DNR, +trial of intubation, transfer and treat. Palliative care patient (Acute) Advanced care planning/counseling discussion (Acute) Anxiety (Chronic) Deficit in activities of daily living (ADL) (Acute) GERD (gastroesophageal reflux disease) (Chronic) Atrial fibrillation (Chronic) Steroid dependence (Chronic) Acute exacerbation of CHF (congestive heart failure) (Acute) Lung nodule (Acute) BPH w urinary obs/LUTS (Acute) Microcytic anemia (Chronic) UTI (urinary tract infection) (Acute) Presence of stent in coronary artery in patient with coronary artery disease (Chronic) Diastolic CHF (Chronic) Pneumonia (Acute) Medical History Palliative care encounter ACP (advance care planning) Encounter for hospice care discussion Housing insecurity Financial difficulties Dyspnea Acute exacerbation of chronic obstructive pulmonary disease HTN (hypertension) Chronic renal failure Non-STEMI (non-ST elevated myocardial infarction) History of tobacco use Hypospadias Chronic kidney disease, stage 3 Peripheral arterial occlusive disease Constipation Depression Lower urinary tract symptoms (LUTS) Exertional dyspnea Pulmonary hypertension due to left heart disease Coronary artery disease Diastolic heart failure Lower back pain Dysuria Heartburn Screening for colon cancer Nocturia Urinary frequency Prediabetes Hypoxemia Multiple pulmonary nodules Lumbar back pain with radiculopathy affecting lower extremity Former smoker Congestion of nasal sinus CKD (chronic kidney disease) CHF (congestive heart failure) Alcoholism in recovery Hypospadias in male COPD (chronic obstructive pulmonary disease) Hyperlipidemia Essential hypertension Surgical History History of phacoemulsification of cataract of both eyes with intraocular lens implantation History of tonsillectomy Family History Father Throat cancer Heart disease Myocardial infarction Brother Heart disease Status post coronary stents Social History Smoking/Tobacco Use Status: Former Tobacco Use Quit Date: 01/11/17 Smoking risk assessment performed?: Yes Alcohol Intake: former Year quit: 2016 Details: Former alcoholic up to 2 cases of gin per month Drug use: Never Substance use type: does not use Housing: assisted living facility Number of Children: 0 Pets and animals: Yes Pets and animals: dog(s) What is your relationship status?: Panel score (0-1 are the most socially isolated patients): 1 Do you feel safe at home: Yes Do you feel safe in your relationship?: Yes Meds Allergies and Home Medications Allergies Allergy/AdvReac Type Severity Reaction Status Date / Time lisinopril AdvReac Unknown low BP, Unverified 05/03/25 02:05 worsening CKD codeine phosphate (From AdvReac constipatio Unverified 05/03/25 02:05 Tylenol-Codeine) n Home Medications ?Medication ?Instructions ?Recorded ?Confirmed ?Type nitroglycerin 0.4 mg sublingual 0.4 mg sublingual Q5M PRN 12/04/19 06/13/25 History tablet guaifenesin 600 mg tablet, 600 mg PO BID PRN 02/28/23 06/13/25 History extended release 12 hr (Mucinex) nicotine 21 mg/24 hr daily 1 patch transdermal DAILY 02/28/23 06/13/25 History transdermal patch apixaban 5 mg tablet (Eliquis) 5 mg PO BID #60 tabs 04/22/25 06/13/25 Rx polyethylene glycol 3350 17 gram 17 g PO DAILY PRN #30 ea 04/24/25 06/13/25 Rx oral powder packet pantoprazole 40 mg tablet,delayed 40 mg PO DAILY #60 tabs 04/30/25 06/13/25 Rx release (Protonix) oxycodone 5 mg tablet 5 mg PO Q4H PRN 05/14/25 06/13/25 History acetaminophen 325 mg capsule 325 mg PO Q6H PRN 06/13/25 06/13/25 History carvedilol 25 mg tablet 25 mg PO DAILY 06/13/25 06/13/25 History docusate sodium 100 mg capsule 100 mg PO BID PRN 06/13/25 06/13/25 History (Colace) ipratropium 0.5 mg-albuterol 3 mg 3 ml inhalation Q4H 06/13/25 06/13/25 History (2.5 mg base)/3 mL nebulization soln lorazepam 0.5 mg tablet (Ativan) 0.5 mg PO Q6H PRN 06/13/25 06/13/25 History torsemide 20 mg tablet 20 mg PO DAILY 06/13/25 06/13/25 History venlafaxine 75 mg capsule,extended 75 mg PO DAILY 06/13/25 06/13/25 History release 24 hr amlodipine 10 mg tablet 10 mg PO DAILY 06/24/25 06/24/25 History rosuvastatin 40 mg tablet 40 mg PO DAILY 06/24/25 06/24/25 History azithromycin 500 mg tablet 500 mg PO DAILY 1 day #1 tab 06/25/25 Rx diltiazem HCl 30 mg tablet 30 mg PO TID #90 tabs 06/25/25 Rx lisinopril 2.5 mg tablet 2.5 mg PO DAILY #30 tabs 06/25/25 Rx prednisone 10 mg tablet 10 mg PO DAILY #1 tab 06/25/25 Rx Results Labs 06/23/25 05:59 06/22/25 06:08 Last Vital Signs Temp 36.6 C 06/25/25 07:32 Pulse 72 06/25/25 08:00 Resp 19 06/25/25 07:44 BP 146/76 H 06/25/25 08:00 Pulse Ox 97 06/25/25 08:14 PAWSS Have you Been Recently Intoxicated or Drunk Within the Last 30 days?: No Have you Ever Experienced Previous Episodes of Alcohol Withdrawal?: No Have you ever Experienced Withdrawal Seizures?: No Have you ever Experienced Delirium Tremens(DT)s?: No Have you ever undergone Alcohol Rehabilitation Treatment (i.e, inpt ot outpatient treatment programs)?: No Have you ever Experienced Blackouts?: No Have you ever Combined Alcohol with other Downers within the last 90 days?: No Have you ever Combined Alcohol with any other Substance of Abuse during the last 90 days?: No Positive Blood Alcohol level on Presentation? [PCS.BAL]: No Evidence of Increased Autonomic Activity (i.e. HR>120, tremor, sweating, agitation, nausea)?: No Result: 0
--- NOTE | 2025-06-25 11:52 | PTTR_ITS ---
PT Notes Visit Reasons: Severe Sepsis, Hypoxic Resp Fail Pneumonia,CHF [facility] Date: 06/25/2025 (a.m. session) PRECAUTIONS: Activity as tolerated. Fall. Standard Precautions SUBJECTIVE: pt reports he is no longer on precautions and is happy to be able to see into the hallway. Pt reports he is uncertain where he will be going to when he leaves here. He was notified he no longer has a bed available at [facility] where he was prior to admission. OBJECTIVE: ? PAIN: left lateral hip into buttock less than yesterday and better since I did the exercises and walked ??Therapeutic Exercises (26117g to): Direct one-on-one instruction in therapeutic exercises to develop strength, endurance, range of motion and flexibility. ? ? BED MOBILITY/TRANSFERS? Supine-sit: independent? Sit-supine: independent ? Sit-stand: independent? Stand-sit: independent ? Bed<->commode : independent via stand pivot ? GAIT? Assistive Device: FWW? Weight bearing: AT Assist: SBA/CGA ? Distance:? 15 feet' x2 ? ? ?sit rest for breath control with B elbow support on w/c. ? Deviation: slow, cautious ambulation. Cues for FWW placement (tends to push walker ahead, requiring trunk flexion). Cues for pacing and breathing throughout. Pt with increase WB through BUE on FWW for breath control and to unweight LLE through midstance Left. Pt tolerate stand for 30 sec prior to amb and then prior to sit after amb for breath control. seated: therex marching LAQ ankle pumps 2 sets 5 reps BLE with rest period between sets. stand 2 reps of hip flexion LLE x 3 sets with BUE support on FWW ? ASSESSMENT:?Pt with significant improvement in activity tolerance with ability to amb 15 feet with FWW with reduced RPE of 3-4 from 7-8 prior session. PLAN: Continue PT intervention to maximize activity tolerance and safety. TREATMENT CODE/TIME: 14623/4939-3918 DISCHARGE RECOMMENDATION: Return to SNF with continued PT to improve activity tolerance when medically appropriate
[2025-06-25] MEDS: AZITHROMYCIN 500 MG in Normal Saline 250 ML 250 MG IVPB (12:29)
--- NOTE | 2025-06-25 13:47 | W.PM.PROGNOT ---
Objective Last Vital Signs Temp 36.4 C L 06/25/25 11:24 Pulse 73 06/25/25 11:24 Resp 16 06/25/25 11:24 BP 104/63 06/25/25 11:24 Pulse Ox 93 06/25/25 11:24 PAWSS Have you Been Recently Intoxicated or Drunk Within the Last 30 days?: No Have you Ever Experienced Previous Episodes of Alcohol Withdrawal?: No Have you ever Experienced Withdrawal Seizures?: No Have you ever Experienced Delirium Tremens(DT)s?: No Have you ever undergone Alcohol Rehabilitation Treatment (i.e, inpt ot outpatient treatment programs)?: No Have you ever Experienced Blackouts?: No Have you ever Combined Alcohol with other Downers within the last 90 days?: No Have you ever Combined Alcohol with any other Substance of Abuse during the last 90 days?: No Positive Blood Alcohol level on Presentation? [PCS.BAL]: No Evidence of Increased Autonomic Activity (i.e. HR>120, tremor, sweating, agitation, nausea)?: No Result: 0
--- NOTE | 2025-06-25 14:28 | PT.INTREAT ---
PT Notes Visit Reasons: Severe Sepsis, Hypoxic Resp Fail Pneumonia,CHF [facility] Date: 06/25/2025 (p.m. session) PRECAUTIONS: Activity as tolerated. Fall. Standard Precautions SUBJECTIVE: Pt states he may be going to another facility in [place] or [place]. He reports he was less SOB while eating lunch as well today. OBJECTIVE:Pt seated in chair watching TV.? PAIN: left lateral hip into buttock feels better than this morning when we walked but it still hurts the most when I step on it ??Therapeutic Exercises (18039n to): Direct one-on-one instruction in therapeutic exercises to develop strength, endurance, range of motion and flexibility. ? ? BED MOBILITY/TRANSFERS? Supine-sit: independent? Sit-supine: independent ? Sit-stand: independent? Stand-sit: independent ? Bed<->commode : independent via stand pivot ? GAIT? Assistive Device: FWW? Weight bearing: AT Assist: SBA/CGA ? Distance:? 45 feet' x1 , 10 'x1 ? Deviation: slow, cautious ambulation. Cues for FWW placement (tends to push walker ahead, requiring trunk flexion). Cues for pacing and breathing throughout. Pt with increase WB through BUE on FWW for breath control and to unweight LLE through midstance Left. Pt tolerate stand for 30 sec prior to amb and then prior to sit after amb for breath control. seated: marching, LAQ, ankle pumps 2 sets 5 reps BLE with rest period between sets. stand at FWW: marching x5 reps then able to continue with 5 reps of hip flexion on Left, heel raises x 5 reps 2 sets with stand rest between. ? ASSESSMENT:?Pt with significant improvement in activity tolerance with ability to amb 45 feet with FWW with reduced RPE of 3-4. Pt remains limited by pain in Left hip with WB. He initially demonstrates antalgic pattern for first 10 feet then with cues to keep the walker closer to him to allow him to unweight with UE. Patient demonstrating carryover of initial stand for breath control and performing hip flexion left prior to ambulation. PLAN: Continue PT intervention to maximize activity tolerance and safety. TREATMENT CODE/TIME: 38260/[id number] DISCHARGE RECOMMENDATION: Return to SNF with continued PT to improve activity tolerance when medically appropriate
--- NOTE | 2025-06-25 19:46 | W.PM.PROGNOT ---
Date of Service Date of service: 06/25/25 Time of Service: 13:00 Assessment and Plan Assessment and plan (1) Legionella pneumonia: Status: Acute Assessment and plan: RUL on admission CT, associated with severe sepsis physiology, which resolved. 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 Risk for TB and anearobes, he will remain on pip/tazo and azithro and respiratory precautions. Initial guidance from [facility] was three AFB smears, but after discussion with Dr. Swain he and I both feel comfortable this is not TB as long as AFB from BAL negative. I discussed with [facility] 06/20 and they agreed. BAL studies still pending (called lab 06/21), per lab expect 06/22. D/w Dr. Swain 06/21, repeat CT chest and procal. Big drop in procal, so continue same antibiotics. No abscess, but some pleural fluid collecting. Brynn to consider pleuracentesis 06/23. June 23: new small right pleural effusion, no plan for thoracentesis at this time. No plan for pleurocentesis at this time. Jun 25: effusion is stable, no intervention planned. Outpatient pulm followup. One more day of azithromycin and prednisone. (2) Acute exacerbation of chronic heart failure: Status: Acute Assessment and plan: Back on home torsemide, fluid status appears stable. (3) Acute exacerbation of chronic obstructive pulmonary disease: Status: Acute Assessment and plan: Being treated with prednisone, chronic inhalers, nebs PRN. Will need slow taper given chronic prednisolone use (admission dose 10mg). Cut to 30mg as he has been here 9 days. (4) Acute kidney injury superimposed on stage 3a chronic kidney disease: Status: Acute Assessment and plan: Improved to near baseline, Cr down slightly 06/22 even after second contrast study on 06/21 (5) Atrial fibrillation: Status: Chronic Assessment and plan: Afib/flutter off/on, mostly aflutter with 4:1 block. Rates are coming down as illness treated. (6) Anemia, chronic disease: Status: Acute Assessment and plan: stable confirmed tranferrin saturation >20% though iron low, c/w chronic disease/CKD. H/o normal electrophoresis (no thalasemmia) EPO candidate, give a dose of aranesp as increasing h/h may help his respiratory status Subjective Subjective Interval history since last seen: Mr Guzmán is cleared from airborne isolation. No precautions required for legionella. Anticipate return to his facility soon. Exam Narrative Exam Narrative: General: This is a pleasant man in no acute distress, in respiratory isolation HEENT: Normocephalic, atraumatic CV: RRR Resp: Diminished lower right breath sounds, otherwise CTAB Abd: NTND MSK: voluntary motion x4 Neuro: Awake, alert, no focal deficits Objective Last Vital Signs Temp 36.8 C 06/25/25 17:59 Pulse 89 06/25/25 18:34 Resp 19 06/25/25 18:34 BP 145/72 H 06/25/25 15:32 Pulse Ox 92 06/25/25 18:34 PAWSS Have you Been Recently Intoxicated or Drunk Within the Last 30 days?: No Have you Ever Experienced Previous Episodes of Alcohol Withdrawal?: No Have you ever Experienced Withdrawal Seizures?: No Have you ever Experienced Delirium Tremens(DT)s?: No Have you ever undergone Alcohol Rehabilitation Treatment (i.e, inpt ot outpatient treatment programs)?: No Have you ever Experienced Blackouts?: No Have you ever Combined Alcohol with other Downers within the last 90 days?: No Have you ever Combined Alcohol with any other Substance of Abuse during the last 90 days?: No Positive Blood Alcohol level on Presentation? [PCS.BAL]: No Evidence of Increased Autonomic Activity (i.e. HR>120, tremor, sweating, agitation, nausea)?: No Result: 0 Time Spent with Patient Time Spent with Patient: 25-34 minutes Time was spent: preparing to see the patient(eg.review tests), obtaining and/or reviewing separately otained hiistory, ordering medications,tests, procedures, referring, communicating with other health care attendant, indepentently interpreting results, counseling the patient and care coordination
--- NOTE | 2025-06-26 07:16 | W.PULMPROG ---
General Date Of Service Date of service: 06/26/25 Time of Service: 07:10 Reason for Consult: Pneumonia Recommendations: Assessment: 1. Legionella pneumonia - urine legionella ag positive. Infectious workup also positive for MRSA nasal swab. Bld cultures negative. AFB and sputum smears negative. AFB and fungal BAL cultures pending 2. Right pleural effusion - suspect simple parapneumonic effusion - trace right effusion on POCUS US on 06/25. Appeared to have slightly decreased in size compared to 06/23. 3. COPD exacerbation - underlying class 2E COPD - improved 4. Acute on chronic renal failure - Cr improved to 1.6 5. Pulmonary nodules - ~1.5 cm partially calcified nodule in the anterior RUL with a smaller satellite nodule - stable from 08/2020 to 06/2025, suggesting a benign etiology Plan: - has completed 13 days of azithromycin for legionella pneumonia, so can d/c after today's dose - BAL and sputum AFB smears were negative. Low clinical suspicion for active TB. Does not require airborne isolation at this time - continue baseline dose of prednisone 10 mg daily. Plan is to attempt to taper off as outpatient - recommend starting Trelegy 100 daily or Breztri 2 puff BID upon discharge for COPD management. Continue PRN albuterol - his pleural effusion is very small and had improved/remained stable. Will see in clinic next week to re-evaluate - will need repeat CT chest in 6-8 weeks to re-evaluate his pulmonary infiltrates. Will arrange for this in clinic - scheduled to see us in clinic on Monday for followup and to re-evaluate his pleural effusion - OK for discharge from a pulmonary standpoint Discussed with Dr. Ferrari Subjective Note Note: Patient is a 74 yo with a history of COPD, CAD, tobacco abuse and CKD who was admitted for right upper lobe pneumonia. He reported feeling unwell since 01/2025. Has had intermittent evaluations since that time. Symptoms worsened recently, prompting his current admission. Reports subjective fevers at home. Has a cough but not producing sputum. Denied any hemoptysis. No chest pain. CT chest showed a severe RUL pneumonia. No pleural effusions. He has a 1.5 cm partially calficied nodule that has been stable for years. He has very poor dentition. Denied any aspiration episodes. No known TB exposures. Currently living in nursing facility / assisted living. Bronchoscopy completed 06/17 with BAL of the RUL. On room air. Has had minimal sputum overnight. No hemoptysis. NO chest pain. Dyspnea has overall improved. Has been on prednisone 10 mg daily as outpatient for COPD. Was also using PRN albuterol. Has not been using long acting inhalers Smoking history: smoked 1 ppd x 50 years. Active TB exposures: no known exposures ROS: 6 pt ROS negative except as in HPI Exam Narrative Exam Narrative: General: alert, no acute distress Head: normocephalic ENT: no stridor, trachea midline, poor dentition CV: normal rate, regular rhythm Respiratory: no wheezing, no crackles, right sided rhonchi, no prolonged expiration GI: abd soft, non-tender, non-distended Skin: no rashes Extremities: trace edema, no digital clubbing Psych: normal affect Objective Last Vital Signs Temp 36.4 C L 06/25/25 19:55 Pulse 97 H 06/25/25 19:55 Resp 17 06/25/25 19:55 BP 132/66 06/25/25 19:55 Pulse Ox 93 06/25/25 19:55 Results Medications Medications: Active Medications Generic Name Dose Route Start Last Admin Trade Name Freq PRN Reason Stop Dose Admin Acetaminophen 650 mg 06/13/25 12:22 06/19/25 01:09 Acetaminophen 325 Mg Tab PO 650 mg Q4H PRN PRN Administration Al Hydrox/Mg Hydrox/Simethicone 30 ml 06/13/25 12:22 Mylanta Suspension 30 Ml Cup PO Q2H PRN PRN Albuterol Sulfate 2 puff 06/13/25 14:06 06/24/25 19:47 Albuterol Hfa 8 Gm 60 Puff Inh IH 2 puffs Q4H PRN PRN Administration Albuterol/Ipratropium 3 ml 06/26/25 08:30 Albuterol/Ipratropium 3 Ml Upd Vial UPD QID MAIA Budesonide/Formoterol Fumarate 2 puff 06/23/25 08:30 06/25/25 20:02 Budesonide/Formoterol 160/4.5 6 Gm 60 Puff Inh IH 2 puffs BID MAIA Administration Carvedilol 25 mg 06/17/25 08:30 06/25/25 19:56 Carvedilol 25 Mg Tab PO 25 mg BID MAIA Administration Diltiazem HCl 30 mg 06/19/25 20:00 06/25/25 19:56 Diltiazem 30 Mg Tab PO 30 mg TID MAIA Administration Docusate Sodium 100 mg 06/13/25 20:00 06/25/25 19:57 Docusate Sodium 100 Mg/10 Ml Cup PO Not Given TID MAIA Guaifenesin 600 mg 06/13/25 20:00 06/25/25 19:56 Guaifenesin 600 Mg Tabcr PO 600 mg BID MAIA Administration Hydroxyzine HCl 10 mg 06/16/25 09:11 06/16/25 20:45 Hydroxyzine Hcl 10 Mg Tab PO 10 mg TID PRN PRN Administration Azithromycin 500 mg/ Sodium 250 mls @ 250 mls/hr 06/24/25 12:00 06/25/25 13:42 Chloride IVPB Infused Q24H MAIA Infusion IV Miscellaneous Supplies 1 each 06/13/25 12:22 Iv Access IV DIRECTED [facility] Lidocaine HCl 30 ml 06/16/25 09:00 Lidocaine 2% Viscous 15 Ml Cup PO DIRECTED [facility] Lidocaine HCl 10 ml 06/16/25 08:45 Lidocaine 1% Multi-Dose 20 Ml Vial IJ DIRECTED [facility] Lidocaine HCl 6 ml 06/16/25 08:45 Lidocaine 2% Multi-Dose 20 Ml Vial IJ DIRECTED [facility] Lisinopril 2.5 mg 06/17/25 08:30 06/25/25 08:06 Lisinopril 2.5 Mg Tab PO 2.5 mg DAILY MAIA Administration Lorazepam 0.5 mg 06/13/25 22:16 06/23/25 15:46 Lorazepam 0.5 Mg Tab PO 0.5 mg Q4H PRN PRN Administration Morphine Sulfate 2 mg 06/14/25 01:07 06/18/25 07:49 Morphine 2 Mg/Ml Syr IVP 2 mg Q2H PRN PRN Administration Nicotine 21 mg 06/14/25 08:30 06/25/25 08:04 Nicotine 21 Mg/24 Hr Patch TD 21 mg DAILY MAIA Administration Oxycodone HCl 5 - 10 mg 06/18/25 14:24 06/18/25 20:50 Oxycodone 5 Mg Tab PO 5 mg Q4H PRN PRN Administration Pantoprazole Sodium 40 mg 06/14/25 07:30 06/25/25 08:05 Pantoprazole 40 Mg Tabcr PO 40 mg DAILY@0730 MAIA Administration Polyethylene Glycol 17 gm 06/13/25 12:22 Polyethylene Glycol 3350 17 Gm Packet PO DAILY PRN PRN Constipation Prednisone 10 mg 06/23/25 08:30 06/25/25 08:05 Prednisone 10 Mg Tab PO 10 mg DAILY MAIA Administration Sodium Chloride 0 ml 06/13/25 12:22 06/25/25 12:30 Normal Saline Flush 10 Ml Syr IVP 10 ml PRN PRN Administration Sodium Chloride 0 ml 06/13/25 20:00 06/25/25 19:59 Normal Saline Flush 10 Ml Syr IVP 10 ml BID MAIA Administration Sodium Chloride 0 ml 06/13/25 12:22 Normal Saline 10 Ml Vial IJ DIRECTED PRN Torsemide 20 mg 06/20/25 08:30 06/25/25 08:05 Torsemide 20 Mg Tab PO 20 mg DAILY MAIA Administration Venlafaxine HCl 75 mg 06/14/25 08:30 06/25/25 08:05 Venlafaxine 75 Mg Capcr PO 75 mg DAILY MAIA Administration Allergies lisinopril Adverse Reaction (Unknown, Unverified 05/03/25 02:05) low BP, worsening CKD codeine phosphate (From Tylenol-Codeine) Adverse Reaction (Unverified 05/03/25 02:05) constipation Labs 06/23/25 05:59 06/22/25 06:08 Labs: 06/13/25 10:05 Blood Blood Culture - Final NO GROWTH 120 HOURS 06/13/25 10:20 Blood Blood Culture - Final NO GROWTH 120 HOURS 06/14/25 00:34 Urine - Reflex from Ua Urine Culture - Final Gram positive asaf, mixed Laboratory Tests Range/Units 06/13/25 06/13/25 06/13/25 08:00 09:55 10:20 WBC (4.4-10.8) 10^3/uL 34.34 H* RBC (4.36-5.78) 10^6/uL 4.74 Hgb (13.5-17.5) g/dL 10.1 L Hct (40.0-50.0) % 33.2 L MCV (80-95) fL 70 L MCH (27.0-33.0) pg 21.3 L MCHC (32.0-36.0) % 30.4 L RDW (11.8-14.1) % 17.8 H Plt Count (130-400) 10^3/uL 443 H MPV (8.0-11.0) fL 10.0 Immature Gran % % 0.0 Neutrophils % % 86.0 Lymphocytes % % 11.0 Monocytes % % 3.0 Eosinophils % % 0.0 Basophils % % 0.0 Nucleated RBC % (0.0-0.3) % 1.0 H Absolute Neutrophils (1.2-6.7) 10^3/uL 29.53 H Absolute Lymphocytes (1.2-3.4) 10^3/uL 3.78 H Absolute Monocytes (0.1-0.8) 10^3/uL 1.03 H Absolute Eosinophils (0.0-0.7) 10^3/uL 0.00 Absolute Basophils (0.0-0.2) 10^3/uL 0.00 RBC Morphology Normal Polychromasia Hypochromasia Poikilocytosis Anisocytosis Microcytosis ABG Sample Site ABG pH ABG pCO2 ABG pO2 ABG HCO3 ABG Total CO2 ABG O2 Saturation ABG Base Excess VBG pH (7.31-7.41) 7.38 VBG pCO2 (41-51) mmHg 37 L VBG pO2 mmHg 51 VBG HCO3 (23-28) mmol/L 22 L VBG Total CO2 (24-29) mmol/L 21 L VBG O2 Saturation % 86 VBG Base Excess (-2-3) mmol/L -3 L VBG Lactate (<or=2.0) mmol/L 2.6 H* Oxygen Liter Flow FiO2 Sodium (136-145) mmol/L 139 Potassium (3.5-5.1) mmol/L 4.1 Chloride (98-107) mmol/L 101 Carbon Dioxide (21.0-32.0) mmol/L 25.8 Anion Gap (3-11) mmol/L 12.2 H BUN (7-18) mg/dL 36 H Creatinine (0.70-1.30) mg/dL 1.9 H Est GFR (CKD-EPI 2020) (mL/min/1.73m2) 37.02 Glucose (74-106) mg/dL 117 H Calcium (8.5-10.1) mg/dL 8.8 Magnesium (1.8-2.4) mg/dL 2.0 Iron (65-175) ug/dL TIBC (250-450) ug/dL Transferrin % Sat (20-55) % Total Bilirubin (0.2-1.0) mg/dL 2.2 H AST (15-37) U/L 13 L ALT (16-63) U/L 16 Alkaline Phosphatase (46-116) U/L 64 Troponin I (<or=76) ng/L 61 79 H* NT-Pro-B Natriuret Pep (<300) pg/mL 9159 H Total Protein (6.4-8.2) g/dL 7.1 Albumin (3.4-5.0) g/dL 3.1 L Procalcitonin ng/mL Urine Color (Yellow) Urine Clarity (Clear) Urine pH (5-8) Ur Specific [place] (1.005-1.025) Urine Protein (Neg-Trace) mg/dL Urine Ketones (Negative) mg/dL Urine Blood (Negative) Urine Nitrite (Negative) Urine Bilirubin (Negative) Urine Urobilinogen (Up to 0.2) mg/dL Ur Leukocyte Esterase (Negative) Urine RBC (0-2) HPF Urine WBC (0-5) HPF Ur Epithelial Cells (Negative) HPF Urine Crystals (Negative) HPF Urine Bacteria (Negative) HPF Urine Casts (Negative) LPF Urine Mucus (Negative) Ur Culture Indicated? Urine Glucose (Negative) mg/dL BAL Neutrophils BAL Lymphocytes BAL Eosinophils BAL Basophils BAL Monocyte/Macrophage BAL Path Comment Random Vancomycin ug/mL Gram Stain COVID-19 Source SARS-CoV-2 (PCR) (Negative) Influenza Type A (PCR) (Negative) Influenza Type B (PCR) (Negative) Urine Legionella Ag (Negative) M. pneumoniae Interp Mycoplasma pneumon IgG (Negative) Mycoplasma pneumon IgM (Negative) M.pneumoniae IgM (IFA) (Negative) RSV (PCR) (Negative) MRSA (TEM-PCR) (Negative) Ur Strep pneumoniae Ag (Negative) TB Test Ag - Nil 1 IU/mL 0.00 TB Test Ag - Nil 2 IU/mL 0.00 TB Test (QFT) Interp (Negative) Negative Aerobic Culture Add-On Test Request Ref Test Specimen Type Ref Report Verification Range/Units 06/13/25 06/13/25 06/13/25 11:04 13:40 13:51 WBC (4.4-10.8) 10^3/uL RBC (4.36-5.78) 10^6/uL Hgb (13.5-17.5) g/dL Hct (40.0-50.0) % MCV (80-95) fL MCH (27.0-33.0) pg MCHC (32.0-36.0) % RDW (11.8-14.1) % Plt Count (130-400) 10^3/uL MPV (8.0-11.0) fL Immature Gran % % Neutrophils % % Lymphocytes % % Monocytes % % Eosinophils % % Basophils % % Nucleated RBC % (0.0-0.3) % Absolute Neutrophils (1.2-6.7) 10^3/uL Absolute Lymphocytes (1.2-3.4) 10^3/uL Absolute Monocytes (0.1-0.8) 10^3/uL Absolute Eosinophils (0.0-0.7) 10^3/uL Absolute Basophils (0.0-0.2) 10^3/uL RBC Morphology Polychromasia Hypochromasia Poikilocytosis Anisocytosis Microcytosis ABG Sample Site ABG pH ABG pCO2 ABG pO2 ABG HCO3 ABG Total CO2 ABG O2 Saturation ABG Base Excess VBG pH (7.31-7.41) VBG pCO2 (41-51) mmHg VBG pO2 mmHg VBG HCO3 (23-28) mmol/L VBG Total CO2 (24-29) mmol/L VBG O2 Saturation % VBG Base Excess (-2-3) mmol/L VBG Lactate (<or=2.0) mmol/L 4.0 H* Oxygen Liter Flow FiO2 Sodium (136-145) mmol/L Potassium (3.5-5.1) mmol/L Chloride (98-107) mmol/L Carbon Dioxide (21.0-32.0) mmol/L Anion Gap (3-11) mmol/L BUN (7-18) mg/dL Creatinine (0.70-1.30) mg/dL Est GFR (CKD-EPI 2020) (mL/min/1.73m2) Glucose (74-106) mg/dL Calcium (8.5-10.1) mg/dL Magnesium (1.8-2.4) mg/dL Iron (65-175) ug/dL TIBC (250-450) ug/dL Transferrin % Sat (20-55) % Total Bilirubin (0.2-1.0) mg/dL AST (15-37) U/L ALT (16-63) U/L Alkaline Phosphatase (46-116) U/L Troponin I (<or=76) ng/L 89 H* Cancelled NT-Pro-B Natriuret Pep (<300) pg/mL Total Protein (6.4-8.2) g/dL Albumin (3.4-5.0) g/dL Procalcitonin ng/mL Urine Color (Yellow) Urine Clarity (Clear) Urine pH (5-8) Ur Specific [place] (1.005-1.025) Urine Protein (Neg-Trace) mg/dL Urine Ketones (Negative) mg/dL Urine Blood (Negative) Urine Nitrite (Negative) Urine Bilirubin (Negative) Urine Urobilinogen (Up to 0.2) mg/dL Ur Leukocyte Esterase (Negative) Urine RBC (0-2) HPF Urine WBC (0-5) HPF Ur Epithelial Cells (Negative) HPF Urine Crystals (Negative) HPF Urine Bacteria (Negative) HPF Urine Casts (Negative) LPF Urine Mucus (Negative) Ur Culture Indicated? Urine Glucose (Negative) mg/dL BAL Neutrophils BAL Lymphocytes BAL Eosinophils BAL Basophils BAL Monocyte/Macrophage BAL Path Comment Random Vancomycin ug/mL Gram Stain COVID-19 Source Nasopharynx SARS-CoV-2 (PCR) (Negative) Negative Influenza Type A (PCR) (Negative) Negative Influenza Type B (PCR) (Negative) Negative Urine Legionella Ag (Negative) M. pneumoniae Interp Mycoplasma pneumon IgG (Negative) Mycoplasma pneumon IgM (Negative) M.pneumoniae IgM (IFA) (Negative) RSV (PCR) (Negative) Negative MRSA (TEM-PCR) (Negative) Ur Strep pneumoniae Ag (Negative) TB Test Ag - Nil 1 IU/mL TB Test Ag - Nil 2 IU/mL TB Test (QFT) Interp (Negative) Aerobic Culture Add-On Test Request Ref Test Specimen Type Ref Report Verification Range/Units 06/13/25 06/14/25 06/14/25 17:50 00:34 03:33 WBC (4.4-10.8) 10^3/uL RBC (4.36-5.78) 10^6/uL Hgb (13.5-17.5) g/dL Hct (40.0-50.0) % MCV (80-95) fL MCH (27.0-33.0) pg MCHC (32.0-36.0) % RDW (11.8-14.1) % Plt Count (130-400) 10^3/uL MPV (8.0-11.0) fL Immature Gran % % Neutrophils % % Lymphocytes % % Monocytes % % Eosinophils % % Basophils % % Nucleated RBC % (0.0-0.3) % Absolute Neutrophils (1.2-6.7) 10^3/uL Absolute Lymphocytes (1.2-3.4) 10^3/uL Absolute Monocytes (0.1-0.8) 10^3/uL Absolute Eosinophils (0.0-0.7) 10^3/uL Absolute Basophils (0.0-0.2) 10^3/uL RBC Morphology Polychromasia Hypochromasia Poikilocytosis Anisocytosis Microcytosis ABG Sample Site Cancelled ABG pH Cancelled ABG pCO2 Cancelled ABG pO2 Cancelled ABG HCO3 Cancelled ABG Total CO2 Cancelled ABG O2 Saturation Cancelled ABG Base Excess Cancelled VBG pH (7.31-7.41) VBG pCO2 (41-51) mmHg VBG pO2 mmHg VBG HCO3 (23-28) mmol/L VBG Total CO2 (24-29) mmol/L VBG O2 Saturation % VBG Base Excess (-2-3) mmol/L VBG Lactate (<or=2.0) mmol/L 2.0 Oxygen Liter Flow Cancelled FiO2 Cancelled Sodium (136-145) mmol/L Potassium (3.5-5.1) mmol/L Chloride (98-107) mmol/L Carbon Dioxide (21.0-32.0) mmol/L Anion Gap (3-11) mmol/L BUN (7-18) mg/dL Creatinine (0.70-1.30) mg/dL Est GFR (CKD-EPI 2020) (mL/min/1.73m2) Glucose (74-106) mg/dL Calcium (8.5-10.1) mg/dL Magnesium (1.8-2.4) mg/dL Iron (65-175) ug/dL TIBC (250-450) ug/dL Transferrin % Sat (20-55) % Total Bilirubin (0.2-1.0) mg/dL AST (15-37) U/L ALT (16-63) U/L Alkaline Phosphatase (46-116) U/L Troponin I (<or=76) ng/L NT-Pro-B Natriuret Pep (<300) pg/mL Total Protein (6.4-8.2) g/dL Albumin (3.4-5.0) g/dL Procalcitonin ng/mL Urine Color (Yellow) Yellow Urine Clarity (Clear) Clear Urine pH (5-8) 6.0 Ur Specific [place] (1.005-1.025) 1.015 Urine Protein (Neg-Trace) mg/dL >=300 H Urine Ketones (Negative) mg/dL Negative Urine Blood (Negative) Trace-intact H Urine Nitrite (Negative) Negative Urine Bilirubin (Negative) Negative Urine Urobilinogen (Up to 0.2) mg/dL 0.2 Ur Leukocyte Esterase (Negative) Small H Urine RBC (0-2) HPF 3-5 H Urine WBC (0-5) HPF >50 H Ur Epithelial Cells (Negative) HPF Few Urine Crystals (Negative) HPF Negative Urine Bacteria (Negative) HPF Few Urine Casts (Negative) LPF Negative Urine Mucus (Negative) Negative Ur Culture Indicated? Yes Urine Glucose (Negative) mg/dL Negative BAL Neutrophils BAL Lymphocytes BAL Eosinophils BAL Basophils BAL Monocyte/Macrophage BAL Path Comment Random Vancomycin ug/mL Gram Stain COVID-19 Source SARS-CoV-2 (PCR) (Negative) Influenza Type A (PCR) (Negative) Influenza Type B (PCR) (Negative) Urine Legionella Ag (Negative) M. pneumoniae Interp Mycoplasma pneumon IgG (Negative) Mycoplasma pneumon IgM (Negative) M.pneumoniae IgM (IFA) (Negative) RSV (PCR) (Negative) MRSA (TEM-PCR) (Negative) Ur Strep pneumoniae Ag (Negative) TB Test Ag - Nil 1 IU/mL TB Test Ag - Nil 2 IU/mL TB Test (QFT) Interp (Negative) Aerobic Culture Add-On Test Request Ref Test Specimen Type Ref Report Verification Range/Units 06/14/25 06/14/25 06/14/25 03:48 05:59 16:00 WBC (4.4-10.8) 10^3/uL 29.95 H* RBC (4.36-5.78) 10^6/uL 4.36 Hgb (13.5-17.5) g/dL 9.0 L Hct (40.0-50.0) % 29.8 L MCV (80-95) fL 68 L MCH (27.0-33.0) pg 20.6 L MCHC (32.0-36.0) % 30.2 L RDW (11.8-14.1) % 17.1 H Plt Count (130-400) 10^3/uL 410 H MPV (8.0-11.0) fL 10.2 Immature Gran % % 1.9 Neutrophils % % 84.4 Lymphocytes % % 6.9 Monocytes % % 6.3 Eosinophils % % 0.2 Basophils % % 0.3 Nucleated RBC % (0.0-0.3) % 0.1 Absolute Neutrophils (1.2-6.7) 10^3/uL 25.28 H Absolute Lymphocytes (1.2-3.4) 10^3/uL 2.07 Absolute Monocytes (0.1-0.8) 10^3/uL 1.89 H Absolute Eosinophils (0.0-0.7) 10^3/uL 0.06 Absolute Basophils (0.0-0.2) 10^3/uL 0.09 RBC Morphology See Below Polychromasia Hypochromasia Poikilocytosis Anisocytosis Microcytosis 2+ ABG Sample Site Right Radial ABG pH 7.35 ABG pCO2 36 ABG pO2 60 L ABG HCO3 20 L ABG Total CO2 19 L ABG O2 Saturation 89 L ABG Base Excess -6 L VBG pH (7.31-7.41) VBG pCO2 (41-51) mmHg VBG pO2 mmHg VBG HCO3 (23-28) mmol/L VBG Total CO2 (24-29) mmol/L VBG O2 Saturation % VBG Base Excess (-2-3) mmol/L VBG Lactate (<or=2.0) mmol/L Oxygen Liter Flow 15 FiO2 Sodium (136-145) mmol/L 136 Potassium (3.5-5.1) mmol/L 4.2 Chloride (98-107) mmol/L 101 Carbon Dioxide (21.0-32.0) mmol/L 22.4 Anion Gap (3-11) mmol/L 12.6 H BUN (7-18) mg/dL 44 H Creatinine (0.70-1.30) mg/dL 2.2 H Est GFR (CKD-EPI 2020) (mL/min/1.73m2) 31.05 Glucose (74-106) mg/dL 89 Calcium (8.5-10.1) mg/dL 8.8 Magnesium (1.8-2.4) mg/dL Iron (65-175) ug/dL TIBC (250-450) ug/dL Transferrin % Sat (20-55) % Total Bilirubin (0.2-1.0) mg/dL AST (15-37) U/L ALT (16-63) U/L Alkaline Phosphatase (46-116) U/L Troponin I (<or=76) ng/L NT-Pro-B Natriuret Pep (<300) pg/mL Total Protein (6.4-8.2) g/dL Albumin (3.4-5.0) g/dL Procalcitonin ng/mL Urine Color (Yellow) Urine Clarity (Clear) Urine pH (5-8) Ur Specific [place] (1.005-1.025) Urine Protein (Neg-Trace) mg/dL Urine Ketones (Negative) mg/dL Urine Blood (Negative) Urine Nitrite (Negative) Urine Bilirubin (Negative) Urine Urobilinogen (Up to 0.2) mg/dL Ur Leukocyte Esterase (Negative) Urine RBC (0-2) HPF Urine WBC (0-5) HPF Ur Epithelial Cells (Negative) HPF Urine Crystals (Negative) HPF Urine Bacteria (Negative) HPF Urine Casts (Negative) LPF Urine Mucus (Negative) Ur Culture Indicated? Urine Glucose (Negative) mg/dL BAL Neutrophils BAL Lymphocytes BAL Eosinophils BAL Basophils BAL Monocyte/Macrophage BAL Path Comment Random Vancomycin ug/mL Gram Stain COVID-19 Source SARS-CoV-2 (PCR) (Negative) Influenza Type A (PCR) (Negative) Influenza Type B (PCR) (Negative) Urine Legionella Ag (Negative) M. pneumoniae Interp Mycoplasma pneumon IgG (Negative) Mycoplasma pneumon IgM (Negative) M.pneumoniae IgM (IFA) (Negative) RSV (PCR) (Negative) MRSA (TEM-PCR) (Negative) Positive A Ur Strep pneumoniae Ag (Negative) TB Test Ag - Nil 1 IU/mL TB Test Ag - Nil 2 IU/mL TB Test (QFT) Interp (Negative) Aerobic Culture Add-On Test Request Ref Test Specimen Type Ref Report Verification Range/Units 06/14/25 06/15/25 06/16/25 23:35 08:04 05:57 WBC (4.4-10.8) 10^3/uL 21.80 H 13.77 H RBC (4.36-5.78) 10^6/uL 4.31 L 4.14 L Hgb (13.5-17.5) g/dL 8.8 L 8.8 L Hct (40.0-50.0) % 28.4 L 27.4 L MCV (80-95) fL 66 L 66 L MCH (27.0-33.0) pg 20.4 L 21.3 L MCHC (32.0-36.0) % 31.0 L 32.1 RDW (11.8-14.1) % 16.7 H 16.9 H Plt Count (130-400) 10^3/uL 355 359 MPV (8.0-11.0) fL 9.9 10.2 Immature Gran % % 0.4 Neutrophils % % 94.5 Lymphocytes % % 3.2 Monocytes % % 1.9 Eosinophils % % 0.0 Basophils % % 0.0 Nucleated RBC % (0.0-0.3) % 0.7 H Absolute Neutrophils (1.2-6.7) 10^3/uL 13.01 H Absolute Lymphocytes (1.2-3.4) 10^3/uL 0.44 L Absolute Monocytes (0.1-0.8) 10^3/uL 0.26 Absolute Eosinophils (0.0-0.7) 10^3/uL 0.00 Absolute Basophils (0.0-0.2) 10^3/uL 0.00 RBC Morphology Polychromasia Hypochromasia Poikilocytosis Anisocytosis Microcytosis ABG Sample Site ABG pH ABG pCO2 ABG pO2 ABG HCO3 ABG Total CO2 ABG O2 Saturation ABG Base Excess VBG pH (7.31-7.41) 7.34 VBG pCO2 (41-51) mmHg 38 L VBG pO2 mmHg 83 VBG HCO3 (23-28) mmol/L 21 L VBG Total CO2 (24-29) mmol/L 20 L VBG O2 Saturation % 97 VBG Base Excess (-2-3) mmol/L -5 L VBG Lactate (<or=2.0) mmol/L 0.8 Oxygen Liter Flow FiO2 Sodium (136-145) mmol/L 135 L 135 L Potassium (3.5-5.1) mmol/L 4.3 3.6 Chloride (98-107) mmol/L 101 101 Carbon Dioxide (21.0-32.0) mmol/L 24.7 27.5 Anion Gap (3-11) mmol/L 9.3 6.5 BUN (7-18) mg/dL 58 H 67 H Creatinine (0.70-1.30) mg/dL 2.2 H 2.2 H Est GFR (CKD-EPI 2020) (mL/min/1.73m2) 31.05 31.05 Glucose (74-106) mg/dL 161 H 164 H Calcium (8.5-10.1) mg/dL 9.1 9.0 Magnesium (1.8-2.4) mg/dL Iron (65-175) ug/dL TIBC (250-450) ug/dL Transferrin % Sat (20-55) % Total Bilirubin (0.2-1.0) mg/dL 0.9 0.8 AST (15-37) U/L 27 17 ALT (16-63) U/L 15 L 18 Alkaline Phosphatase (46-116) U/L 77 71 Troponin I (<or=76) ng/L NT-Pro-B Natriuret Pep (<300) pg/mL Total Protein (6.4-8.2) g/dL 7.0 7.3 Albumin (3.4-5.0) g/dL 2.5 L 2.8 L Procalcitonin ng/mL 44.60 Urine Color (Yellow) Urine Clarity (Clear) Urine pH (5-8) Ur Specific [place] (1.005-1.025) Urine Protein (Neg-Trace) mg/dL Urine Ketones (Negative) mg/dL Urine Blood (Negative) Urine Nitrite (Negative) Urine Bilirubin (Negative) Urine Urobilinogen (Up to 0.2) mg/dL Ur Leukocyte Esterase (Negative) Urine RBC (0-2) HPF Urine WBC (0-5) HPF Ur Epithelial Cells (Negative) HPF Urine Crystals (Negative) HPF Urine Bacteria (Negative) HPF Urine Casts (Negative) LPF Urine Mucus (Negative) Ur Culture Indicated? Urine Glucose (Negative) mg/dL BAL Neutrophils BAL Lymphocytes BAL Eosinophils BAL Basophils BAL Monocyte/Macrophage BAL Path Comment Random Vancomycin ug/mL Gram Stain COVID-19 Source SARS-CoV-2 (PCR) (Negative) Influenza Type A (PCR) (Negative) Influenza Type B (PCR) (Negative) Urine Legionella Ag (Negative) M. pneumoniae Interp See Comment Mycoplasma pneumon IgG (Negative) Positive A Mycoplasma pneumon IgM (Negative) Reactive A M.pneumoniae IgM (IFA) (Negative) Negative RSV (PCR) (Negative) MRSA (TEM-PCR) (Negative) Ur Strep pneumoniae Ag (Negative) TB Test Ag - Nil 1 IU/mL TB Test Ag - Nil 2 IU/mL TB Test (QFT) Interp (Negative) Aerobic Culture Add-On Test Request Ref Test Specimen Type Ref Report Verification Range/Units 06/16/25 06/17/25 06/17/25 11:48 05:50 11:55 WBC (4.4-10.8) 10^3/uL 17.17 H RBC (4.36-5.78) 10^6/uL 4.22 L Hgb (13.5-17.5) g/dL 8.8 L Hct (40.0-50.0) % 27.1 L MCV (80-95) fL 64 L MCH (27.0-33.0) pg 20.9 L MCHC (32.0-36.0) % 32.5 RDW (11.8-14.1) % 16.9 H Plt Count (130-400) 10^3/uL 376 MPV (8.0-11.0) fL 9.9 Immature Gran % % 0.8 Neutrophils % % 88.4 Lymphocytes % % 6.3 Monocytes % % 4.4 Eosinophils % % 0.0 Basophils % % 0.1 Nucleated RBC % (0.0-0.3) % 0.4 H Absolute Neutrophils (1.2-6.7) 10^3/uL 15.18 H Absolute Lymphocytes (1.2-3.4) 10^3/uL 1.08 L Absolute Monocytes (0.1-0.8) 10^3/uL 0.76 Absolute Eosinophils (0.0-0.7) 10^3/uL 0.00 Absolute Basophils (0.0-0.2) 10^3/uL 0.02 RBC Morphology Polychromasia Hypochromasia Poikilocytosis Anisocytosis Microcytosis ABG Sample Site ABG pH ABG pCO2 ABG pO2 ABG HCO3 ABG Total CO2 ABG O2 Saturation ABG Base Excess VBG pH (7.31-7.41) VBG pCO2 (41-51) mmHg VBG pO2 mmHg VBG HCO3 (23-28) mmol/L VBG Total CO2 (24-29) mmol/L VBG O2 Saturation % VBG Base Excess (-2-3) mmol/L VBG Lactate (<or=2.0) mmol/L 1.0 Oxygen Liter Flow FiO2 Sodium (136-145) mmol/L 142 Potassium (3.5-5.1) mmol/L 3.0 L Chloride (98-107) mmol/L 102 Carbon Dioxide (21.0-32.0) mmol/L 29.8 Anion Gap (3-11) mmol/L 10.2 BUN (7-18) mg/dL 65 H Creatinine (0.70-1.30) mg/dL 1.7 H Est GFR (CKD-EPI 2020) (mL/min/1.73m2) 42.30 Glucose (74-106) mg/dL 126 H Calcium (8.5-10.1) mg/dL 9.0 Magnesium (1.8-2.4) mg/dL 2.1 Iron (65-175) ug/dL 48 L TIBC (250-450) ug/dL 163 L Transferrin % Sat (20-55) % 29 Total Bilirubin (0.2-1.0) mg/dL 0.8 AST (15-37) U/L 12 L ALT (16-63) U/L 19 Alkaline Phosphatase (46-116) U/L 66 Troponin I (<or=76) ng/L NT-Pro-B Natriuret Pep (<300) pg/mL Total Protein (6.4-8.2) g/dL 7.0 Albumin (3.4-5.0) g/dL 2.7 L Procalcitonin ng/mL Urine Color (Yellow) Urine Clarity (Clear) Urine pH (5-8) Ur Specific [place] (1.005-1.025) Urine Protein (Neg-Trace) mg/dL Urine Ketones (Negative) mg/dL Urine Blood (Negative) Urine Nitrite (Negative) Urine Bilirubin (Negative) Urine Urobilinogen (Up to 0.2) mg/dL Ur Leukocyte Esterase (Negative) Urine RBC (0-2) HPF Urine WBC (0-5) HPF Ur Epithelial Cells (Negative) HPF Urine Crystals (Negative) HPF Urine Bacteria (Negative) HPF Urine Casts (Negative) LPF Urine Mucus (Negative) Ur Culture Indicated? Urine Glucose (Negative) mg/dL BAL Neutrophils Not Applicable BAL Lymphocytes Not Applicable BAL Eosinophils Not Applicable BAL Basophils Not Applicable BAL Monocyte/Macrophage Not Applicable BAL Path Comment See Comment Random Vancomycin ug/mL Gram Stain No Neutrophils Seen COVID-19 Source SARS-CoV-2 (PCR) (Negative) Influenza Type A (PCR) (Negative) Influenza Type B (PCR) (Negative) Urine Legionella Ag (Negative) Positive A M. pneumoniae Interp Mycoplasma pneumon IgG (Negative) Mycoplasma pneumon IgM (Negative) M.pneumoniae IgM (IFA) (Negative) RSV (PCR) (Negative) MRSA (TEM-PCR) (Negative) Ur Strep pneumoniae Ag (Negative) Negative TB Test Ag - Nil 1 IU/mL TB Test Ag - Nil 2 IU/mL TB Test (QFT) Interp (Negative) Aerobic Culture SEE BELOW Add-On Test Request Ref Test Specimen Type Not Applicable Ref Report Verification Not Applicable Range/Units 06/17/25 06/18/25 06/19/25 12:32 06:00 06:50 WBC (4.4-10.8) 10^3/uL 14.79 H RBC (4.36-5.78) 10^6/uL 4.18 L Hgb (13.5-17.5) g/dL 8.8 L Hct (40.0-50.0) % 27.0 L MCV (80-95) fL 65 L MCH (27.0-33.0) pg 21.1 L MCHC (32.0-36.0) % 32.6 RDW (11.8-14.1) % 16.9 H Plt Count (130-400) 10^3/uL 380 MPV (8.0-11.0) fL 10.0 Immature Gran % % 0.9 Neutrophils % % 79.5 Lymphocytes % % 12.2 Monocytes % % 6.5 Eosinophils % % 0.8 Basophils % % 0.1 Nucleated RBC % (0.0-0.3) % 0.2 Absolute Neutrophils (1.2-6.7) 10^3/uL 11.76 H Absolute Lymphocytes (1.2-3.4) 10^3/uL 1.80 Absolute Monocytes (0.1-0.8) 10^3/uL 0.96 H Absolute Eosinophils (0.0-0.7) 10^3/uL 0.12 Absolute Basophils (0.0-0.2) 10^3/uL 0.01 RBC Morphology Polychromasia Hypochromasia Poikilocytosis Anisocytosis Microcytosis ABG Sample Site ABG pH ABG pCO2 ABG pO2 ABG HCO3 ABG Total CO2 ABG O2 Saturation ABG Base Excess VBG pH (7.31-7.41) VBG pCO2 (41-51) mmHg VBG pO2 mmHg VBG HCO3 (23-28) mmol/L VBG Total CO2 (24-29) mmol/L VBG O2 Saturation % VBG Base Excess (-2-3) mmol/L VBG Lactate (<or=2.0) mmol/L 1.0 Oxygen Liter Flow FiO2 Sodium (136-145) mmol/L 140 138 Potassium (3.5-5.1) mmol/L 3.2 L 4.2 D Chloride (98-107) mmol/L 102 104 Carbon Dioxide (21.0-32.0) mmol/L 27.6 26.1 Anion Gap (3-11) mmol/L 10.4 7.9 BUN (7-18) mg/dL 54 H 52 H Creatinine (0.70-1.30) mg/dL 1.7 H 1.7 H Est GFR (CKD-EPI 2020) (mL/min/1.73m2) 42.30 42.30 Glucose (74-106) mg/dL 121 H 96 Calcium (8.5-10.1) mg/dL 8.7 9.0 Magnesium (1.8-2.4) mg/dL 1.9 Iron (65-175) ug/dL TIBC (250-450) ug/dL Transferrin % Sat (20-55) % Total Bilirubin (0.2-1.0) mg/dL 0.9 AST (15-37) U/L 10 L ALT (16-63) U/L 17 Alkaline Phosphatase (46-116) U/L 62 Troponin I (<or=76) ng/L NT-Pro-B Natriuret Pep (<300) pg/mL Total Protein (6.4-8.2) g/dL 6.6 Albumin (3.4-5.0) g/dL 2.6 L Procalcitonin ng/mL Urine Color (Yellow) Urine Clarity (Clear) Urine pH (5-8) Ur Specific Sterling (1.005-1.025) Urine Protein (Neg-Trace) mg/dL Urine Ketones (Negative) mg/dL Urine Blood (Negative) Urine Nitrite (Negative) Urine Bilirubin (Negative) Urine Urobilinogen (Up to 0.2) mg/dL Ur Leukocyte Esterase (Negative) Urine RBC (0-2) HPF Urine WBC (0-5) HPF Ur Epithelial Cells (Negative) HPF Urine Crystals (Negative) HPF Urine Bacteria (Negative) HPF Urine Casts (Negative) LPF Urine Mucus (Negative) Ur Culture Indicated? Urine Glucose (Negative) mg/dL BAL Neutrophils BAL Lymphocytes BAL Eosinophils BAL Basophils BAL Monocyte/Macrophage BAL Path Comment Random Vancomycin ug/mL 9.5 Gram Stain COVID-19 Source SARS-CoV-2 (PCR) (Negative) Influenza Type A (PCR) (Negative) Influenza Type B (PCR) (Negative) Urine Legionella Ag (Negative) M. pneumoniae Interp Mycoplasma pneumon IgG (Negative) Mycoplasma pneumon IgM (Negative) M.pneumoniae IgM (IFA) (Negative) RSV (PCR) (Negative) MRSA (TEM-PCR) (Negative) Ur Strep pneumoniae Ag (Negative) TB Test Ag - Nil 1 IU/mL TB Test Ag - Nil 2 IU/mL TB Test (QFT) Interp (Negative) Aerobic Culture Add-On Test Request DONE Ref Test Specimen Type Ref Report Verification Range/Units 06/20/25 06/21/25 06/21/25 07:00 11:45 15:30 WBC (4.4-10.8) 10^3/uL 17.98 H 18.51 H RBC (4.36-5.78) 10^6/uL 4.12 L 4.03 L Hgb (13.5-17.5) g/dL 8.5 L 8.3 L Hct (40.0-50.0) % 26.9 L 26.6 L MCV (80-95) fL 65 L 66 L MCH (27.0-33.0) pg 20.6 L 20.6 L MCHC (32.0-36.0) % 31.6 L 31.2 L RDW (11.8-14.1) % 17.6 H 17.5 H Plt Count (130-400) 10^3/uL 491 H 539 H MPV (8.0-11.0) fL 9.9 9.4 Immature Gran % % 4.3 Neutrophils % % 86.5 Lymphocytes % % 5.6 Monocytes % % 2.4 Eosinophils % % 1.0 Basophils % % 0.2 Nucleated RBC % (0.0-0.3) % 0.2 Absolute Neutrophils (1.2-6.7) 10^3/uL 16.01 H Absolute Lymphocytes (1.2-3.4) 10^3/uL 1.04 L Absolute Monocytes (0.1-0.8) 10^3/uL 0.44 Absolute Eosinophils (0.0-0.7) 10^3/uL 0.19 Absolute Basophils (0.0-0.2) 10^3/uL 0.04 RBC Morphology See Below Polychromasia Present Hypochromasia 1+ Poikilocytosis 2+ Anisocytosis 1+ Microcytosis 2+ ABG Sample Site ABG pH ABG pCO2 ABG pO2 ABG HCO3 ABG Total CO2 ABG O2 Saturation ABG Base Excess VBG pH (7.31-7.41) VBG pCO2 (41-51) mmHg VBG pO2 mmHg VBG HCO3 (23-28) mmol/L VBG Total CO2 (24-29) mmol/L VBG O2 Saturation % VBG Base Excess (-2-3) mmol/L VBG Lactate (<or=2.0) mmol/L Oxygen Liter Flow FiO2 Sodium (136-145) mmol/L 140 Potassium (3.5-5.1) mmol/L 3.5 Chloride (98-107) mmol/L 106 Carbon Dioxide (21.0-32.0) mmol/L 25.7 Anion Gap (3-11) mmol/L 8.3 BUN (7-18) mg/dL 48 H Creatinine (0.70-1.30) mg/dL 1.7 H Est GFR (CKD-EPI 2020) (mL/min/1.73m2) 42.30 Glucose (74-106) mg/dL 112 H Calcium (8.5-10.1) mg/dL 8.7 Magnesium (1.8-2.4) mg/dL Iron (65-175) ug/dL TIBC (250-450) ug/dL Transferrin % Sat (20-55) % Total Bilirubin (0.2-1.0) mg/dL AST (15-37) U/L ALT (16-63) U/L Alkaline Phosphatase (46-116) U/L Troponin I (<or=76) ng/L NT-Pro-B Natriuret Pep (<300) pg/mL Total Protein (6.4-8.2) g/dL Albumin (3.4-5.0) g/dL Procalcitonin ng/mL 0.65 Urine Color (Yellow) Urine Clarity (Clear) Urine pH (5-8) Ur Specific Sterling (1.005-1.025) Urine Protein (Neg-Trace) mg/dL Urine Ketones (Negative) mg/dL Urine Blood (Negative) Urine Nitrite (Negative) Urine Bilirubin (Negative) Urine Urobilinogen (Up to 0.2) mg/dL Ur Leukocyte Esterase (Negative) Urine RBC (0-2) HPF Urine WBC (0-5) HPF Ur Epithelial Cells (Negative) HPF Urine Crystals (Negative) HPF Urine Bacteria (Negative) HPF Urine Casts (Negative) LPF Urine Mucus (Negative) Ur Culture Indicated? Urine Glucose (Negative) mg/dL BAL Neutrophils BAL Lymphocytes BAL Eosinophils BAL Basophils BAL Monocyte/Macrophage BAL Path Comment Random Vancomycin ug/mL Gram Stain COVID-19 Source SARS-CoV-2 (PCR) (Negative) Influenza Type A (PCR) (Negative) Influenza Type B (PCR) (Negative) Urine Legionella Ag (Negative) M. pneumoniae Interp Mycoplasma pneumon IgG (Negative) Mycoplasma pneumon IgM (Negative) M.pneumoniae IgM (IFA) (Negative) RSV (PCR) (Negative) MRSA (TEM-PCR) (Negative) Ur Strep pneumoniae Ag (Negative) TB Test Ag - Nil 1 IU/mL TB Test Ag - Nil 2 IU/mL TB Test (QFT) Interp (Negative) Aerobic Culture Add-On Test Request Ref Test Specimen Type Ref Report Verification Range/Units 06/22/25 06/23/2506/23/25 06:08 05:59 18:35 WBC (4.4-10.8) 10^3/uL 15.26 H RBC (4.36-5.78) 10^6/uL 4.09 L Hgb (13.5-17.5) g/dL 8.4 L Hct (40.0-50.0) % 26.9 L MCV (80-95) fL 66 L MCH (27.0-33.0) pg 20.5 L MCHC (32.0-36.0) % 31.2 L RDW (11.8-14.1) % 17.6 H Plt Count (130-400) 10^3/uL 662 H MPV (8.0-11.0) fL 9.3 Immature Gran % % 5.7 Neutrophils % % 67.9 Lymphocytes % % 19.8 Monocytes % % 5.7 Eosinophils % % 0.7 Basophils % % 0.2 Nucleated RBC % (0.0-0.3) % 0.3 Absolute Neutrophils (1.2-6.7) 10^3/uL 10.36 H Absolute Lymphocytes (1.2-3.4) 10^3/uL 3.02 Absolute Monocytes (0.1-0.8) 10^3/uL 0.87 H Absolute Eosinophils (0.0-0.7) 10^3/uL 0.11 Absolute Basophils (0.0-0.2) 10^3/uL 0.03 RBC Morphology Polychromasia Hypochromasia Poikilocytosis Anisocytosis Microcytosis ABG Sample Site ABG pH ABG pCO2 ABG pO2 ABG HCO3 ABG Total CO2 ABG O2 Saturation ABG Base Excess VBG pH (7.31-7.41) VBG pCO2 (41-51) mmHg VBG pO2 mmHg VBG HCO3 (23-28) mmol/L VBG Total CO2 (24-29) mmol/L VBG O2 Saturation % VBG Base Excess (-2-3) mmol/L VBG Lactate (<or=2.0) mmol/L Oxygen Liter Flow FiO2 Sodium (136-145) mmol/L 141 Potassium (3.5-5.1) mmol/L 3.8 Chloride (98-107) mmol/L 106 Carbon Dioxide (21.0-32.0) mmol/L 26.1 Anion Gap (3-11) mmol/L 8.9 BUN (7-18) mg/dL 44 H Creatinine (0.70-1.30) mg/dL 1.6 H Est GFR (CKD-EPI 2020) (mL/min/1.73m2) 45.50 Glucose (74-106) mg/dL 94 Calcium (8.5-10.1) mg/dL 8.8 Magnesium (1.8-2.4) mg/dL Iron (65-175) ug/dL TIBC (250-450) ug/dL Transferrin % Sat (20-55) % Total Bilirubin (0.2-1.0) mg/dL AST (15-37) U/L ALT (16-63) U/L Alkaline Phosphatase (46-116) U/L Troponin I (<or=76) ng/L 18 NT-Pro-B Natriuret Pep (<300) pg/mL Total Protein (6.4-8.2) g/dL Albumin (3.4-5.0) g/dL Procalcitonin ng/mL Urine Color (Yellow) Urine Clarity (Clear) Urine pH (5-8) Ur Specific Sterling (1.005-1.025) Urine Protein (Neg-Trace) mg/dL Urine Ketones (Negative) mg/dL Urine Blood (Negative) Urine Nitrite (Negative) Urine Bilirubin (Negative) Urine Urobilinogen (Up to 0.2) mg/dL Ur Leukocyte Esterase (Negative) Urine RBC (0-2) HPF Urine WBC (0-5) HPF Ur Epithelial Cells (Negative) HPF Urine Crystals (Negative) HPF Urine Bacteria (Negative) HPF Urine Casts (Negative) LPF Urine Mucus (Negative) Ur Culture Indicated? Urine Glucose (Negative) mg/dL BAL Neutrophils BAL Lymphocytes BAL Eosinophils BAL Basophils BAL Monocyte/Macrophage BAL Path Comment Random Vancomycin ug/mL Gram Stain COVID-19 Source SARS-CoV-2 (PCR) (Negative) Influenza Type A (PCR) (Negative) Influenza Type B (PCR) (Negative) Urine Legionella Ag (Negative) M. pneumoniae Interp Mycoplasma pneumon IgG (Negative) Mycoplasma pneumon IgM (Negative) M.pneumoniae IgM (IFA) (Negative) RSV (PCR) (Negative) MRSA (TEM-PCR) (Negative) Ur Strep pneumoniae Ag (Negative) TB Test Ag - Nil 1 IU/mL TB Test Ag - Nil 2 IU/mL TB Test (QFT) Interp (Negative) Aerobic Culture Add-On Test Request Ref Test Specimen Type Ref Report Verification
[2025-06-26 07:37] VITALS: BP 161/61; PULSE 72; RESP 18; TEMP 36.8; O2SAT 93
[2025-06-26] MEDS: Budesonide/Formoterol 160/4.5 6 GM 60 PUFF INH IH (07:47)
[2025-06-26 07:49] VITALS: PULSE 72; RESP 16; O2SAT 90
[2025-06-26] MEDS: Albuterol/Ipratropium 3 ML UPD VIAL UPD ×2 (07:49→11:38)
[2025-06-26] MEDS: Carvedilol 25 MG TAB PO (08:28)
[2025-06-26] MEDS: Venlafaxine 75 MG CAPCR PO (08:28)
[2025-06-26] MEDS: guaiFENesin 600 MG TABCR PO (08:28)
[2025-06-26] MEDS: Lisinopril 2.5 MG TAB PO (08:28)
[2025-06-26] MEDS: Pantoprazole 40 MG TABCR PO (08:29)
[2025-06-26] MEDS: predniSONE 10 MG TAB PO (08:29)
[2025-06-26] MEDS: Torsemide 20 MG TAB PO (08:29)
[2025-06-26] MEDS: Nicotine 21 MG/24 HR PATCH TD (08:29)
[2025-06-26] MEDS: dilTIAZem 30 MG TAB PO (08:29)
[2025-06-26] MEDS: Normal Saline Flush 10 ML SYR IVP (08:30)
[2025-06-26 11:26] VITALS: BP 117/76; PULSE 73; RESP 19; TEMP 37.1; O2SAT 92
[2025-06-26 11:38] VITALS: PULSE 73; RESP 19; O2SAT 92
--- NOTE | 2025-06-26 11:53 | W.PM.DS.N ---
Date of service: 06/26/25 Time of Service: 11:53 DS: Diagnosis Discharge Diagnosis (1) Legionella pneumonia: Status: Resolved Asessment and Plan: RUL consolidation on admission CT, associated with severe sepsis physiology, which resolved. Bronchoscopy done 06/17 with cultures from washings pending, including AFB. Legionella Ag positive, most likely the pathologic organism MRSA nares, but none on BAL culture, vanco stopped 06/20 Mycoplasma serologies positive but confirmatory test negative. Risk for TB and anearobes, continued pip/tazo and azithro and respiratory precautions pending AFB. AFB resulted negative at [facility]. Completed 14 day course of azithromycin. Continue [facility] intermediary prednisone 10. (2) Acute exacerbation of chronic heart failure: Status: Resolved Asessment and Plan: Back on home torsemide, fluid status appears stable (3) Acute exacerbation of chronic obstructive pulmonary disease: Status: Resolved Asessment and Plan: Home regimen prednisone 10, chronic inhalers, nebs PRN. Increased steroids initially after admission Now tapered down to home regimen. (4) Acute kidney injury superimposed on stage 3a chronic kidney disease: Status: Resolved Asessment and Plan: Improved to near baseline, Cr down slightly 06/22 even after second contrast study on 06/21 (5) Atrial fibrillation: Status: Chronic Asessment and Plan: Afib/flutter off/on, mostly aflutter with 4:1 block. Rates are coming down as illness treated. (6) Anemia, chronic disease: Status: Acute Asessment and Plan: stable confirmed tranferrin saturation >20% though iron low, c/w chronic disease/CKD. H/o normal electrophoresis (no thalasemmia) EPO candidate, give a dose of aranesp as increasing h/h may help his respiratory status Discharge Plan Disposition Patient Disposition: Senior Care Facility(SNF) Condition: Fair Discharge Details Reason For Visit: Severe Sepsis, Hypoxic Resp Fail Pneumonia,CHF [facility] Admit Date/Time: 06/13/25 10:56 Admit Provider: Everardo Anne Attending Provider: Everardo Anne Primary Care Provider: Everardo Malloy Hospital Course Hospital Course: Paul Guzmán is a 74 year old man presenting June 13 with multiple falls and exercise dyspnea. [facility]. He was found to be septic with pneumonia and demand ischemia, and was admitted to the ICU. As CXR showed RUL infiltrate, he was isolated for TB rule out and treatment prioritized aspiration pneumonia. Urine legionella resulted positive on June 17. Bronchoscopy was done June 17 and lavage fluid was sent to [facility] to support public health process. He was treated with colony stim (Aranesp) for chronic anemia on June 22. TB was ruled out as of June 24 and isolation was discontinued. The are no patient infection precautions for Legionella. He has completed a 14 day course of antibiotics and is safe to be discharged back to his facility. Home Meds and New Rx's Prescriptions: New diltiazem HCl 30 mg Tablet 30 mg PO TID Qty: 90 5RF lisinopril 2.5 mg Tablet 2.5 mg PO DAILY Qty: 30 5RF azithromycin 500 mg tablet 500 mg PO DAILY 1 Days Qty: 1 0RF Rx Instructions: start on day 2 of therapy prednisone 10 mg tablet 10 mg PO DAILY Qty: 30 0RF Continued oxycodone 5 mg tablet 5 mg PO Q4H PRN nitroglycerin 0.4 mg tablet, sublingual 0.4 mg SL Q5M PRN guaifenesin [Mucinex] 600 mg tablet extended release 12hr 600 mg PO BID PRN nicotine 21 mg/24 hr patch 24 hour 1 patch transdermal DAILY Eliquis 5 mg tablet 5 mg PO BID Qty: 60 0RF polyethylene glycol 3350 17 gram Powder In Packet 17 g PO DAILY PRNQty: 30 0RF pantoprazole [Protonix] 40 mg tablet,delayed release (DR/EC) 40 mg PO DAILY Qty: 60 0RF lorazepam [Ativan] 0.5 mg tablet 0.5 mg PO Q6H PRN acetaminophen 325 mg capsule 325 mg PO Q6H PRN torsemide 20 mg tablet 20 mg PO DAILY carvedilol 25 mg tablet 25 mg PO DAILY Rx Instructions: must administer with a meal/food venlafaxine 75 mg capsule,extended release 24hr 75 mg PO DAILY ipratropium-albuterol 0.5 mg-3 mg(2.5 mg base)/3 mL solution for nebulization 3 ml IH Q4H docusate sodium [Colace] 100 mg Capsule 100 mg PO BID PRN amlodipine 10 mg tablet 10 mg PO DAILY Patient Comments: TAKE ONE TABLET BY MOUTH EVERY DAY rosuvastatin 40 mg tablet 40 mg PO DAILY Patient Comments: TAKE ONE TABLET BY MOUTH EVERY DAY Discontinued prednisolone [Millipred] 5 mg tablet 10 mg PO QDAY Discharge Instructions Instructions: Legionnaires' Disease (DC) Referrals: Wiliam Swain MD [ [facility] STAFF PHYSICIAN, Pulmonology] Activity:: Activity as Tolerated Equipment/Supplies:: No Equipment Needed Diet:: Low Sodium Discharge Orders Discharge Orders: Discharge Order (Routine); Ordered 06/26/25 Ordered By: Domingo Ferrari DS: Summary Time Spent with Patient providing and/or coordinating discharge services: Greater than 30 minutes Status at Discharge Functional status at discharge: independent ambulation Overall status at discharge: patient is back to baseline Mental Status: mental status grossly normal Speech and Movement: speech and movement normal Mood: congruent mood Affect: normal affect Quality:SDOH Health Related Social Needs: Health related social needs risk of homeless transpo insecurity house/econ circumstance lonely/isolated education Health related social needs details not worried about housing Exam Narrative Exam Narrative: General: This is a pleasant man in no acute distress, on room air, off isolation, no infection precautions necessary HEENT: Normocephalic, atraumatic CV: RRR Resp: CTAB Abd: NTND MSK: voluntary motion x4 Neuro: Awake, alert, no focal deficits Psych Mental Status: mental status grossly normal Speech and Movement: speech and movement normal Mood: congruent mood Affect: normal affect DS: Data Vitals/I&O Vitals and I&O: Vital Signs Temperature 37.1 C 06/26/25 11:26 Temperature Source Skin 06/26/25 11:26 Pulse 73 06/26/25 11:38 Pulse Rhythm Irregular 06/13/25 12:22 Pulse 70 06/18/25 14:32 Respiratory Rate 19 06/26/25 11:38 Respiratory Effort Labored, Accessory Muscle Use, Tripod 06/14/25 04:20 Respiratory Depth Shallow 06/13/25 12:22 Respiratory Pattern Tachypnea 06/14/25 04:20 Blood Pressure 117/76 06/26/25 11:26 Blood Pressure Mean 89 06/26/25 11:26 Pulse Oximetry 92 06/26/25 11:38 Oxygen Delivery Method Room Air 06/26/25 11:38 Oxygen Flow Rate 0 06/26/25 11:38 Fraction of Inspired Oxygen (FIO2) 28 06/15/25 00:15 Pain Level 5 06/26/25 11:26 Comment RN notified 06/25/25 15:32 Intake & Output 06/25/25 06/25/25 06/26/25 11:59 23:59 11:59 Intake Total 70 / 800 730 / 800 300 / 300 Output Total 500 / 700 200 / 700 400 / 400 Balance -430 / 100 530 / 100 -100 / -100 Weight 90.6 kg 92.2 kg Intake: IV 70 / 330 260 / 330 Oral 470 / 470 300 / 300 Output: Urine 500 / 700 200 / 700 400 / 400 Other: Urine Color Pale Green Yellow Urine Appearance Clear Clear Clear Urine Odor Strong Normal Comment Estimated amount voided w/ stool stool mixed in with urine, unmeasurable Stool Size Moderate Smear Moderate Stool Characteristics Soft Soft Soft Liquid Brown Brown PFSH All Active Problems (Updated 06/26/25 @ 00:03 by YAIR GANDARA) Anemia, chronic disease (Acute) Sepsis (Acute) CARLOS MANUEL (acute kidney injury) (Acute) DNR (do not resuscitate) (Acute) As of 05/13/2025: Code status frequently changing. As of 05/13/2025: DNR, +trial of intubation, transfer and treat. Palliative care patient (Acute) Anxiety (Chronic) Deficit in activities of daily living (ADL) (Acute) GERD (gastroesophageal reflux disease) (Chronic) Atrial fibrillation (Chronic) BPH w urinary obs/LUTS (Acute) Microcytic anemia (Chronic) UTI (urinary tract infection) (Acute) Presence of stent in coronary artery in patient with coronary artery disease (Chronic) Diastolic CHF (Chronic) Medical History Palliative care encounter ACP (advance care planning) Encounter for hospice care discussion Housing insecurity Financial difficulties Dyspnea Acute exacerbation of chronic obstructive pulmonary disease HTN (hypertension) Chronic renal failure Non-STEMI (non-ST elevated myocardial infarction) History of tobacco use Hypospadias Chronic kidney disease, stage 3 Peripheral arterial occlusive disease Constipation Depression Lower urinary tract symptoms (LUTS) Exertional dyspnea Pulmonary hypertension due to left heart disease Coronary artery disease Diastolic heart failure Lower back pain Dysuria Heartburn Screening for colon cancer Nocturia Urinary frequency Prediabetes Hypoxemia Multiple pulmonary nodules Lumbar back pain with radiculopathy affecting lower extremity Former smoker Congestion of nasal sinus CKD (chronic kidney disease) CHF (congestive heart failure) Alcoholism in recovery Hypospadias in male COPD (chronic obstructive pulmonary disease) Hyperlipidemia Essential hypertension Surgical History History of phacoemulsification of cataract of both eyes with intraocular lens implantation History of tonsillectomy Family History Father Throat cancer Heart disease Myocardial infarction Brother Heart disease Status post coronary stents Social History Smoking/Tobacco Use Status: Former Tobacco Use Quit Date: 01/11/17 Smoking risk assessment performed?: Yes Alcohol Intake: former Year quit: 2016 Details: Former alcoholic up to 2 cases of gin per month Drug use: Never Substance use type: does not use Housing: assisted living facility Number of Children: 0 Pets and animals: Yes Pets and animals: dog(s) What is your relationship status?: Panel score (0-1 are the most socially isolated patients): 1 Do you feel safe at home: Yes Do you feel safe in your relationship?: Yes Time Spent with Patient Time Spent with Patient: 45-69 minutes Time was spent: preparing to see the patient(eg.review tests), obtaining and/or reviewing separately otained hiistory, ordering medications,tests, procedures, referring, communicating with other health customer care agent, indepentently interpreting results, counseling the patient and care coordination
--- NOTE | 2025-06-26 12:22 | PTTR_ITS ---
PT Notes Visit Reasons: Severe Sepsis, Hypoxic Resp Fail Pneumonia,CHF [facility] Therapy Treatment Note [facility] Date: 06/26/2025 (am+PM sessions) PRECAUTIONS: Activity as tolerated. Fall. Standard Precautions SUBJECTIVE: Pt states he is moving to a facility in [facility] sometime today. Patient reports he has done his exercises and been up and down to use the commode independently. PM: pt reports he is leaving today at 3 but is concerned about getting in out of car. OBJECTIVE: (am session)Pt seated at edge of bed? (pm session) seated in chair ? PAIN: left lateral hip into buttock Vitals: (am)Seated BP 117/76 heart rate 73 SaO2 92% on room air ??Therapeutic Exercises (12873): Direct one-on-one instruction in therapeutic exercises to develop strength, endurance, range of motion and flexibility. ? ? BED MOBILITY/TRANSFERS? Supine-sit: independent? Sit-supine: independent ? Sit-stand: independent? Stand-sit: independent ? Bed<->commode : independent via stand pivot ? GAIT? Assistive Device: FWW? Weight bearing: AT Assist: SBA/CGA ? Distance:? 8 feet' x1 in am and 15 ft x 1 and 12 feet x 1 in pm,? Deviation: slow, cautious ambulation. Cues for FWW placement (tends to push walker ahead, requiring trunk flexion). Cues for pacing and breathing throughout. Pt with increase WB through BUE on FWW for breath control and to unweight LLE through midstance Left. Pt tolerate stand for 30 sec prior to amb and then prior to sit after amb for breath control. Car Transfer : step turn w/c to car, min A to get LEs into car. back rest lowered ? ASSESSMENT:?(AM Session)Pt with report of lightheadedness during ambulation requesting to sit after 8 feet. BP at start of session noted to be lower than previous sessions. Upon assessment of BP after ambulation return to 108/80. Will continue to monitor. (PM Session) Pt denied lightheadedness this session. He continues to be limited by pain in his left hip > SOB/MONTIEL. PLAN: Continue PT intervention to maximize activity tolerance and safety. TREATMENT CODE/TIME: 43689/[id number] 2nd session: [id number]/ [id number] DISCHARGE RECOMMENDATION: Return to SNF with continued PT to improve activity tolerance when medically appropriate
[2025-06-26] MEDS: AZITHROMYCIN 500 MG in Normal Saline 250 ML 250 MG IVPB (13:19)
--- NOTE | 2025-06-26 14:34 | CHAPLAIN ---
Paul is out of isolation today and expects to be discharged. He was sitting up at the edge of his bed and told me that [facility] didn't hold his bed for him, without notifying him or Care Management that his bed would not be held. Privacy Compliance Manager Destinee Arizmendi contact the administration and was told that Elroy could have a bed at their [place], [place] facility. This is disappointing and frustrating to Elroy as friends visit him at the [facility], bring him things he needs, and his architect intern is in [facility]. Destinee said the [facility] administration has agreed to get Elroy to his pulmonary appointment next week.
--- NOTE | 2025-06-26 14:59 | W.SUR.HO ---
Registration Status: DIS IN Primary Language: Preferred Language: German v v v v v v v v v Sending and/or Receiving Nurses: Please use comment section below to note any information pertinent to the patient hand-off not included above. Information / Comments: Report received from: Respiratory Pulse Oximetry 92 Pulse Oximetry 92 Pulse Oximetry 90 Pulse Oximetry 93 Pulse Oximetry 93 Pulse Oximetry 92 Pulse Oximetry 90 Oxygen Flow Rate 0 Oxygen Flow Rate 0 Oxygen Flow Rate 0 Oxygen Flow Rate 0 Oxygen Flow Rate 0 Oxygen Flow Rate 0 Oxygen Flow Rate 0 Oxygen Flow Rate 0 Operation Date: 06/17/25 11:55 Actual Procedures p Bronchoscopy w/ BAL (Not Applicable) - Wiliam Swain MD Pre-Op Diagnosis: Pneumonia Post-Op Diagnosis: Pneumonia lisinopril Adverse Reaction (Unknown, Unverified 05/03/25 02:05) low BP, worsening CKD codeine phosphate (From Tylenol-Codeine) Adverse Reaction (Unverified 05/03/25 02:05) constipation ENDOSC POLYPECTOMY OF LG INTEST (06/18/10) ESOPHAGOGASTRODUODENOSCOPY [EGD] W/CLOSED BIOPSY (06/18/10) Introduction of Other Gas into Respiratory Tract, Via Natural or Artificial Opening (02/21/19) Medication Management for Substance Abuse Treatment, Nicotine Replacement (05/10/19) Monitoring of Cardiac Electrical Activity, External Approach (12/05/19) Pharmacotherapy for Substance Abuse Treatment, Nicotine Replacement (12/05/19) RETROGR CYSTOURETHROGRAM (06/24/10) Ultrasonography of Heart with Aorta (02/21/19) 06/26/25 07:37 06/26/25 07:49 06/26/25 11:26 Temperature 36.8 C 37.1 C Temperature Source Skin Skin Pulse 72 72 73 Respiratory Rate 18 16 19 Blood Pressure 161/61 H 117/76 Blood Pressure Mean 94 89 Pulse Oximetry 93 90 L 92 Oxygen Delivery Method Room Air Room Air Room Air Oxygen Flow Rate 0 0 0 Pain Level 0 5 06/26/25 11:38 Temperature Temperature Source Pulse 73 Respiratory Rate 19 Blood Pressure Blood Pressure Mean Pulse Oximetry 92 Oxygen Delivery Method Room Air Oxygen Flow Rate 0 Pain Level v v v v v v v v v Sending and/or Receiving Nurses: Please use comment section below to note any information pertinent to the patient hand-off not included above. Information / Comments: Report received from: RNDay, gave report to Natalya at 2:59 pm on 06/26/2025 to [facility]. Patient left at 2:55 and was A & O x4, bp was 117/76, pulse 73, and respiratory rate of 19, and oxygen saturation 92% on RA.
--- NOTE | 2025-06-26 16:08 | CMDISCH_ITS ---
Date of service: 06/26/25 Time of Service: 16:08 LACE Index Scoring Tool Questions: Length of Stay (in days): 7 - 13 Was the patient admitted via the E.D.?: Yes Comorbidities: Previous M.I., Congestive Heart Failure, Chronic Pulmonary Disease and Liver or Renal Disease E.D. Visits: 5 Answers: Total Score: 17 Risk of Readmission: High Risk Care Management Discharge Plan Reason for Hospitalization: sepsis Discharge Plan: Elroy will be transferred to [facility] to continue his rehab. He was admitted to [facility] from [facility] but was unable to return as he exceeded his 10 day bed hold and they are now closed to admissions indefinitely. he will follow up with the facility providers and plan of care and will transport via [facility] coordinated by CM. Patient/Family Education Needs: Review discharge instructions, expectations, discuss Ask Me Three Services Needed at Discharge: Longterm Facility SDOH Health Related Social Needs: Health related social needs risk of homeless transpo i nsecurity house/econ circumstance lonely/isolated education Health related social needs details not worried about housing
== END 2025-06-26 14:51 | disposition skilled nursing facility (03) | DRG 177 ==
LOC: ER 09:51 → MS 11:36 → ICU 06-14 04:08 → MS 06-19 11:46
PROVIDERS: Family Medicine; Internal Medicine Pulmonary Disease; Nurse Practitioner Acute Care; Admitting Provider Hospitalist; Emergency Provider Student in an Organized Health Care Education/Training Program; PCP Family Medicine; Responsible Provider Family Medicine; Visit Provider Hospitalist
PROC: 0BJ08ZZ Inspection of Tracheobronchial Tree, Via Natural or Artificial Opening Endoscopic (ICD-10-PCS; CPT 31622; principal; 2025-06-17 11:45)
DX: A48.1 Legionnaires' disease (principal); I50.33 Acute on chronic diastolic (congestive) heart failure; J96.01 Acute respiratory failure with hypoxia; R65.21 Severe sepsis with septic shock; J44.0 Chronic obstructive pulmonary disease with (acute) lower respiratory infection; J44.1 Chronic obstructive pulmonary disease with (acute) exacerbation; F19.20 Other psychoactive substance dependence, uncomplicated; N17.9 Acute kidney failure, unspecified; N13.8 Other obstructive and reflux uropathy; I13.0 Hypertensive heart and chronic kidney disease with heart failure and stage 1 through stage 4 chronic kidney disease, or unspecified chronic kidney disease; I24.89 Other forms of acute ischemic heart disease; I48.92 Unspecified atrial flutter; J18.9 Pneumonia, unspecified organism; I48.91 Unspecified atrial fibrillation; K21.9 Gastro-esophageal reflux disease without esophagitis; Z87.891 Personal history of nicotine dependence; Z66 Do not resuscitate; I25.10 Atherosclerotic heart disease of native coronary artery without angina pectoris; N18.31 Chronic kidney disease, stage 3a; Z95.5 Presence of coronary angioplasty implant and graft; N40.1 Benign prostatic hyperplasia with lower urinary tract symptoms; F41.9 Anxiety disorder, unspecified; Z22.322 Carrier or suspected carrier of Methicillin resistant Staphylococcus aureus; R91.8 Other nonspecific abnormal finding of lung field; Z73.89 Other problems related to life management difficulty; Z79.52 Long term (current) use of systemic steroids; I25.2 Old myocardial infarction; I73.9 Peripheral vascular disease, unspecified; M54.16 Radiculopathy, lumbar region; Z79.01 Long term (current) use of anticoagulants; R73.03 Prediabetes; R14.0 Abdominal distension (gaseous); D63.1 Anemia in chronic kidney disease
CPT/HCPCS: 31624; 00123; 36415; 73552; 80048; 80053; 80162; 82805; 84145; 85027; 86738; 87040; 87070; 87102; 87116; 87205; 87206; 87449; 87637; 87641; 93005; 94640; 94761; 96361; 96365; 97110; 97116; 97161; 97530; 99223; 99232; 99233; 99291; J1650; 36600; 70450; 71045; 71046; 71260; 72170; 74018; 80202; 81003; 81015; 83540; 83550; 83605; 83735; 83880; 84484; 85025; 86480; 87086; 87899; 88104; 93010; 94664; 94667; 94668; 94760; 99239; J0360; J0456; J0692; J0881; J1938; J2003; J2004; J2270; J2543; J2704; J2919; J3373; J3480; J3490; J7512; J7620; P9047

== ENCOUNTER → 2025-06-17 08:38 | Outpatient (BNVA) | payer MEDICARE, SELFPAY | PROVIDERS: PCP Family Medicine; Referring Provider Family Medicine; Visit Provider Internal Medicine Pulmonary Disease | CPT/HCPCS: 00123 ==

== ENCOUNTER → 2025-07-10 13:59 | Outpatient (BNVA) | payer MEDICARE, SELFPAY | PROVIDERS: PCP Family Medicine; Referring Provider Family Medicine; Visit Provider Internal Medicine Pulmonary Disease | DX: J44.0 Chronic obstructive pulmonary disease with (acute) lower respiratory infection (principal); R91.8 Other nonspecific abnormal finding of lung field; J90 Pleural effusion, not elsewhere classified; F17.210 Nicotine dependence, cigarettes, uncomplicated | CPT/HCPCS: 99215 ==

== ENCOUNTER 2025-08-08 14:59 | Observation (INO) | payer MEDICARE, SELFPAY ==
[2025-08-08] VITALS (31 sets, daily range): BP systolic 116–224; BP diastolic 65–185; PULSE 48–144; RESP 16–28; TEMP 36.9; O2SAT 90–94
--- NOTE | 2025-08-08 14:45 | RT.EKG_ITS ---
APPROVED REPORT Exam: Resting ECG Reason for Exam: hypotension Patient Location: E HR:143 bpm ECG Measurements Heart Rate 143 AXIS DC 91 P -29 QRSd 101 QRS 51 QT 304 T 87 QTc 469 Conclusion A flutter, rate 143 No interval abnormalities No STEMI Diffuse ST depression, likely rate related. Compared to priors, rate has increased
--- NOTE | 2025-08-08 15:02 | DI.RAD_ITS ---
Exam(s) XR PORTABLE CHEST AP EXAM: XR PORTABLE CHEST AP CLINICAL HISTORY: Chest pain TECHNIQUE: 2D digital imaging was performed of the chest. One image was obtained. An AP view was obtained. COMPARISON: CR XR PORTABLE CHEST AP from 04/30/2025 CR,XR XR CHEST 2V PA LATERAL from 05/03/2025 CR XR CHEST 2V PA LATERAL from 06/13/2025 CR XR CHEST 2V PA LATERAL from 06/16/2025 CR XR PORTABLE CHEST AP from 06/18/2025 CR XR PORTABLE CHEST AP from 06/20/[address] CHEST W from 06/21/2025 FINDINGS: MEDIASTINUM: Normal. HEART: Normal. PULMONARY VASCULATURE: Normal. LUNGS: There has been continued improvement of the right upper lobe opacity with a small residual opacity seen in the periphery of the right upper lobe. There are new increased lung markings in the lower lobes bilaterally. There is a calcified granuloma again seen in the right lower lung overlying the anterior aspect of the right 5th rib. PLEURAL SPACE: No pleural effusion or pneumothorax. BONE:Within normal limits for the patient's age. OTHER FINDINGS:Normal. IMPRESSION: 1. Significant improvement of the right upper lobe opacity since 06/21/2025. There is a small residual infiltrate in the periphery of the right upper lobe. 2. New increased lung markings in the bases bilaterally, right greater than left. This may represent a developing pneumonia or atelectasis. DATA REPOSITORY: RADIATION DOSE DELIVERED:
[2025-08-08] MEDS: Lactated Ringers 1,000 ML 1000 ML IV (15:11)
[2025-08-08 15:15] LABS: Abs Immature Grans 0.05 10^3/uL (0.0-0.06); HCT 38.7 % (40.0-50.0); HGB 11.4 g/dL (13.5-17.5); Immature Grans % 0.4 %; MCH 18.9 pg (27.0-33.0); MCHC 29.5 % (32.0-36.0); MCV 64 fL (80-95); Platelet Count 383 10^3/uL (130-400); RBC 6.04 10^6/uL (4.36-5.78); RDW 17.8 % (11.8-14.1); RDW-SD 36.8 fL; WBC 11.85 10^3/uL (4.4-10.8)
--- NOTE | 2025-08-08 15:22 | W.ED.GENAD ---
Discharge Plan Disposition Patient Disposition: Admit to [facility] Condition: Stable Discharge Details Clinical Impression: Atrial fibrillation with RVR, Diastolic CHF, Anemia, chronic disease Primary Care Provider: Everardo Malloy ED Provider: Sabine Houston Home Meds and New Rx's Prescriptions: No Action oxycodone 5 mg tablet 5 mg PO Q4H PRN sennosides [Natural Senna Laxative] 8.6 mg tablet 8.6 mg PO BID PRN sorbitol 70 % solution 30 ml PO ONCE Rx Instructions: Give 15mL by mouth as needed for promoting stool Day 2 Give 30mL by mouth as needed for promoting stool TID PRN Trelegy Ellipta 100-62.5-25 mcg blister with device 1 inh inhalation DAILY nitroglycerin 0.4 mg tablet, sublingual 0.4 mg SL Q5M PRN guaifenesin [Mucinex] 600 mg tablet extended release 12hr 600 mg PO BID PRN nicotine 21 mg/24 hr patch 24 hour 1 patch transdermal DAILY Eliquis 5 mg tablet 5 mg PO BID Qty: 60 0RF polyethylene glycol 3350 17 gram Powder In Packet 17 g PO DAILY PRNQty: 30 0RF pantoprazole [Protonix] 40 mg tablet,delayed release (DR/EC) 40 mg PO DAILY Qty: 60 0RF lorazepam [Ativan] 0.5 mg tablet 0.5 mg PO Q6H PRN acetaminophen 325 mg capsule 325 mg PO Q6H PRN torsemide 20 mg tablet 20 mg PO DAILY carvedilol 25 mg tablet 3.125 mg PO DAILY Rx Instructions: must administer with a meal/food venlafaxine 75 mg capsule,extended release 24hr 75 mg PO DAILY ipratropium-albuterol 0.5 mg-3 mg(2.5 mg base)/3 mL solution for nebulization 3 ml IH Q4H docusate sodium [Colace] 100 mg Capsule 100 mg PO BID PRN amlodipine 10 mg tablet 10 mg PO DAILY Patient Comments: TAKE ONE TABLET BY MOUTH EVERY DAY rosuvastatin 40 mg tablet 40 mg PO DAILY Patient Comments: TAKE ONE TABLET BY MOUTH EVERY DAY lisinopril 2.5 mg Tablet 2.5 mg PO DAILY Qty: 30 5RF prednisone 10 mg tablet 10 mg PO DAILY Qty: 30 0RF diltiazem HCl 30 mg Tablet 30 mg PO BID HPI General Mode of arrival: EMS. Date/Time Provider Initiated Documentation: 08/08/25 15:02. Limitations to Documentation: no limitations. Information obtained by: patient, EMS and old records reviewed. HPI Narrative: This is a 74-year-old male patient with a past medical history significant for atrial fibrillation/flutter on Eliquis, hypertension, GERD, coronary artery disease and diastolic CHF with a normal EF, presenting for evaluation of dizziness/lightheadedness. The patient has experienced intermittent dizziness for the past several weeks, seems to come and go, and seems to be related to changes in his blood pressure per EMS report. Denies vertiginous symptoms, weakness, numbness. Apparently they have been making some changes to his home medications, including decreasing the dose of his diltiazem recently from 30 mg 3 times daily to 30 mg twice daily. He was also taken off of his amlodipine. He reports that the dizziness has persisted regardless of that change, states that he is not experiencing chest pain or palpitations, denies shortness of breath that is new or different for him. He does have a history of COPD and had a recent episode of pneumonia, from which he is recovering. Uses supplemental O2 occasionally at home, is currently oxygenating appropriately on room air and denies new cough or sputum changes. EMS noted the patient to be tachycardic into the 140s with a stable blood pressure. He was mentating appropriately, and transported to our facility from [facility] rehab for further evaluation. Related Data Home Medications ?Medication ?Instructions ?Recorded ?Confirmed nitroglycerin 0.4 mg sublingual 0.4 mg sublingual Q5M PRN 12/04/19 07/10/25 tablet guaifenesin 600 mg tablet, 600 mg PO BID PRN 02/28/23 08/08/25 extended release 12 hr (Mucinex) nicotine 21 mg/24 hr daily 1 patch transdermal DAILY 02/28/23 08/08/25 transdermal patch apixaban 5 mg tablet (Eliquis) 5 mg PO BID #60 tabs 04/22/25 08/08/25 polyethylene glycol 3350 17 gram 17 g PO DAILY PRN #30 ea 04/24/25 08/08/25 oral powder packet pantoprazole 40 mg tablet,delayed 40 mg PO DAILY #60 tabs 04/30/25 08/08/25 release (Protonix) oxycodone 5 mg tablet 5 mg PO Q4H PRN 05/14/25 08/08/25 acetaminophen 325 mg capsule 325 mg PO Q6H PRN 06/13/25 08/08/25 carvedilol 25 mg tablet 3.125 mg PO DAILY 06/13/25 08/08/25 docusate sodium 100 mg capsule 100 mg PO BID PRN 06/13/25 08/08/25 (Colace) ipratropium 0.5 mg-albuterol 3 mg 3 ml inhalation Q4H 06/13/25 08/08/25 (2.5 mg base)/3 mL nebulization soln lorazepam 0.5 mg tablet (Ativan) 0.5 mg PO Q6H PRN 06/13/25 07/10/25 torsemide 20 mg tablet 20 mg PO DAILY 06/13/25 08/08/25 venlafaxine 75 mg capsule,extended 75 mg PO DAILY 06/13/25 08/08/25 release 24 hr amlodipine 10 mg tablet 10 mg PO DAILY 06/24/25 08/08/25 rosuvastatin 40 mg tablet 40 mg PO DAILY 06/24/25 08/08/25 lisinopril 2.5 mg tablet 2.5 mg PO DAILY #30 tabs 06/25/25 08/08/25 prednisone 10 mg tablet 10 mg PO DAILY #30 tabs 06/26/25 08/08/25 fluticasone fur. 100 mcg-umeclid 1 inh inhalation DAILY 07/10/25 08/08/25 62.5 mcg-vilant 25 mcg inhalat.powder (Trelegy Ellipta) sennosides 8.6 mg tablet (Natural 8.6 mg PO BID PRN 07/10/25 08/08/25 Senna Laxative) sorbitol 70 % solution 30 ml PO ONCE 07/10/25 08/08/25 diltiazem HCl 30 mg tablet 30 mg PO BID 08/08/25 08/08/25 Previous Rx's ?Medication ?Instructions ?Recorded apixaban 5 mg tablet (Eliquis) 5 mg PO BID #60 tabs 04/22/25 polyethylene glycol 3350 17 gram 17 g PO DAILY PRN #30 ea 04/24/25 oral powder packet pantoprazole 40 mg tablet,delayed 40 mg PO DAILY #60 tabs 04/30/25 release (Protonix) lisinopril 2.5 mg tablet 2.5 mg PO DAILY #30 tabs 06/25/25 prednisone 10 mg tablet 10 mg PO DAILY #30 tabs 06/26/25 Allergies Allergy/AdvReac Type Severity Reaction Status Date / Time lisinopril AdvReac Unknown low BP, Unverified 08/08/25 16:53 worsening CKD codeine phosphate (From AdvReac constipatio Unverified 08/08/25 16:53 Tylenol-Codeine) n General Stated Complaint: Dizzy/Sync DAISY: 2 Exam Narrative Exam Narrative: Gen: awake and alert, in no apparent distress. Appears well nourished. HEENT: PERRL, EOMs full and without nystagmus. External ears and nose normal, mucous membranes moist. Neck: Supple, full range of motion, no observable masses Lungs: No increased work of breathing, lung sounds clear and equal bilaterally with scattered wheezes but no rhonchi or rales CV: Heart with tachycardic rate but regular rhythm on arrival, no murmurs auscultated. Strong and symmetrical radial pulses. Abdomen: Soft, nondistended, non-tender to palpation. No rigidity, rebound tenderness, or guarding. MSK: No joint swelling, no redness. Full ROM without limitation, no external traumatic findings. Skin: No rashes or lesions to visualized skin. Normal color, warm, and dry. Neuro: Cranial nerves II-XII intact and symmetrical bilaterally. 5/5 strength in all muscle groups x4 extremities. No sensory deficits. Psych: Appropriate for situation. Course Vital Signs Vital signs: Vital Signs Pulse 144 H 08/08/25 15:00 Respiratory Rate 08/08/25 15:00 Blood Pressure 116/68 08/08/25 15:00 Pulse 144 H 08/08/25 15:00 Respiratory Rate 20 08/08/25 15:00 Blood Pressure 116/68 08/08/25 15:00 Medical Decision Making This is a 74-year-old male patient presenting for evaluation of dizziness. My differential includes but is not limited to arrhythmia, ACS, orthostasis/vasovagal, certainly considered metabolic and electrolyte derangements, dehydration, kidney injury. The patient does not have vertigo, new numbness, weakness, or tingling, or other neurodeficits to significantly increase my concern for stroke, intracranial mass effect, or seizure. No fevers to suggest infection, his breathing appears to be at his reported baseline, no murmurs highly suggestive of aortic stenosis. EKG obtained, shows an atrial flutter with a rate of 140. Rate dependent ST depression, rate has increased compared to priors with the patient was in an atrial flutter on his most recent EKG. We will provide the patient with a liter of IV fluid, obtain labs to include CBC, CMP, magnesium, troponin, BNP, and I will provide the patient with 10 mg of Cardizem for his elevated heart rate. We will obtain a portable chest x-ray. -Prior to obtaining the Cardizem, the patient had a spontaneous change in his rhythm to atrial fibrillation with a rate averaging between the 110s and 130s. We observed while fluid was infusing, and this persisted despite rehydration, and Cardizem was provided. He was transiently with a rate in the 90s, but gradually increased back up to the 110s. He did have improvement in his lightheadedness after this intervention. I independently interpreted the laboratory studies, which show no significant leukocytosis, new or worsening anemia, or thrombocytopenia. The chemistry panel is without evidence of electrolyte abnormality or liver injury. His kidney function is just slightly worse than typical for him, with a BUN of 43 and a creatinine of 2.0. BNP is 3100 today, which is actually decreased from his most recent values. Troponin was negative and without interval increase on 1 hour delta recheck. Lipase is slightly elevated to 102, well below the 3 times upper limit of normal cutoff for concern for acute pancreatitis. Chest x-ray reviewed by myself, showing resolution of his known pneumonia, bibasilar opacities which may represent atelectasis. He has no new infectious symptoms to increase my concern for new pneumonia. I discussed the patient's case with cardiology, they recommended orthostatic vital formally done (the patient stood up to use the bathroom, did not become dizzy, but did have an increase in his heart rate back to 140, which is a greater than 20 bpm change) they recommend that he is admitted for observation, initiated on Cardizem 30 mg every 6 hours, and if this is successful in controlling his rate and symptoms he is discharged on extended release diltiazem 120 mg daily. I discussed this patient's case with the hospitalist who is graciously accepted him for admission to their service. The patient remained with improved symptoms while under my care, and was transferred to their team without incident. 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 As of 05/13/2025: DNR, +trial of intubation, transfer and treat. Anxiety (Chronic) GERD (gastroesophageal reflux disease) (Chronic) Atrial fibrillation (Chronic) BPH w urinary obs/LUTS (Acute) Microcytic anemia (Chronic) UTI (urinary tract infection) (Acute) Presence of stent in coronary artery in patient with coronary artery disease (Chronic) Diastolic CHF (Chronic) Medical History (Updated 08/08/25 @ 19:08 by Sabine Houston MD) Hx of falling Palliative care patient Advanced care planning/counseling discussion Deficit in activities of daily living (ADL) Palliative care encounter ACP (advance care planning) Encounter for hospice care discussion Housing insecurity Financial difficulties Dyspnea Acute exacerbation of chronic obstructive pulmonary disease HTN (hypertension) Chronic renal failure Non-STEMI (non-ST elevated myocardial infarction) History of tobacco use Hypospadias Chronic kidney disease, stage 3 Peripheral arterial occlusive disease Constipation Depression Lower urinary tract symptoms (LUTS) Exertional dyspnea Pulmonary hypertension due to left heart disease Coronary artery disease Diastolic heart failure Lower back pain Dysuria Heartburn Screening for colon cancer Nocturia Urinary frequency Prediabetes Hypoxemia Multiple pulmonary nodules Lumbar back pain with radiculopathy affecting lower extremity Former smoker Congestion of nasal sinus CKD (chronic kidney disease) CHF (congestive heart failure) Alcoholism in recovery Hypospadias in male COPD (chronic obstructive pulmonary disease) Hyperlipidemia Essential hypertension Surgical History (Updated 07/31/25 @ 15:22 by Silvia Mckeon CMA) History of phacoemulsification of cataract of both eyes with intraocular lens implantation History of tonsillectomy Family History Father Throat cancer Heart disease Myocardial infarction Brother Heart disease Status post coronary stents Social History Smoking/Tobacco Use Status: Former Tobacco Use Quit Date: 01/11/17 Smoking risk assessment performed?: Yes Alcohol Intake: former Year quit: 2016 Details: Former alcoholic up to 2 cases of gin per month Drug use: Never Substance use type: does not use Housing: assisted living facility Number of Children: 0 Pets and animals: Yes Pets and animals: dog(s) What is your relationship status?: Panel score (0-1 are the most socially isolated patients): 1 Do you feel safe at home: Yes Do you feel safe in your relationship?: Yes
[2025-08-08 15:26] LABS: INR 1.0 (0.9-1.1); Prothrombin Time 9.9 sec (9.1-11.1)
[2025-08-08 15:28] LABS: Anisocytosis 1+; Microcytosis 2+
[2025-08-08 15:29] LABS: MPV 8.8 fL (8.0-11.0)
[2025-08-08 15:40] LABS: ALT 34 U/L (16-63); AST 18 U/L (15-37); Albumin 3.5 g/dL (3.4-5.0); Alkaline Phosphatase 72 U/L (46-116); Anion Gap 12.1 mmol/L (3-11); BUN 43 mg/dL (7-18); Bilirubin, Total 0.7 mg/dL (0.2-1.0); CO2 24.9 mmol/L (21.0-32.0); Calcium 9.1 mg/dL (8.5-10.1); Chloride 104 mmol/L (98-107); Estimated GFR 34.81 (mL/min/1.73m2); Glucose 137 mg/dL (74-106); Lipase 102 U/L (<78); Magnesium 2.2 mg/dL (1.8-2.4); NT-proBNP 3196 pg/mL (<300); Potassium 4.5 mmol/L (3.5-5.1); Sodium 141 mmol/L (136-145); Total Protein 7.9 g/dL (6.4-8.2); Troponin I 25 ng/L (<or=76)
[2025-08-08 16:44] LABS: Troponin I 21 ng/L (<or=76)
[2025-08-08] MEDS: dilTIAZem 25 MG/5 ML VIAL 10 MG IVP (17:04)
[2025-08-08] MEDS: Albuterol/Ipratropium 3 ML UPD VIAL UPD (17:07)
[2025-08-08] MEDS: dilTIAZem 30 MG TAB PO (18:56)
--- NOTE | 2025-08-08 19:04 | W.PM.HP.N ---
Date of service: 08/08/25 Time of Service: 19:30 Assessment and Plan Assessment and plan (1) Atrial fibrillation with RVR: Status: Acute Assessment and plan: Dizziness / lightheadedness likely due to RVR Again rate controlled on diltiazem Admitting to the medical floor with continuous cardiac monitoring Per [facility] will continue short-acting diltiazem 30 mg PO q6h Anticipate discharge on diltiazem ER 120 mg PO daily (2) Acute kidney injury superimposed on chronic kidney disease: Status: Acute Assessment and plan: Creatinine of 2 against 1.6 baseline Anticipate improvement with fluid resuscitation (3) (HFpEF) heart failure with preserved ejection fraction: Status: Acute Assessment and plan: Continue home amlodipine, carvedilol, lisinopril, rosuvastatin, torsemide Diltiazem to be added back at ER 120 mg daily (4) COPD (chronic obstructive pulmonary disease): Assessment and plan: Hold home trelegy ellipta PRN duonebs (5) long term care social worker (current) use of systemic steroids: Status: Acute Assessment and plan: halfway prednisone 10, tapering off per Dr Swain Continue prednisone 5 mg daily, plan to decrease further at August followup (6) Microcytic anemia: Status: Chronic Assessment and plan: Improved lab values since last visit Current hemoglobin 11.4, hematocrit 38.7, MCV 64 Iron studies done multiple times showing low stores with adequate capacity - June iron panel reflected acute infection Will give IV iron x1 Recommend iron supplementation with attention to chronic constipation (7) Constipation, chronic: Status: Acute Assessment and plan: PRN bowel regimen (8) GERD (gastroesophageal reflux disease): Status: Chronic Assessment and plan: continue home PPI (9) Major depression, recurrent, chronic: Status: Acute Assessment and plan: continue home venlafaxine (10) Tobacco dependence with current use: Status: Acute Assessment and plan: PRN nicotine patch History of Present Illness History of Present Illness Chief Complaint: dizziness and lightheadedness Narrative: Paul Guzmán is a 74 year old man presenting August 08 with 2 weeks of worsening dizziness and lightheadedness.? He resides at [facility], and had Legionella pneumonia in June.? At his facility, to try to address his dizziness, his providers reduced his blood pressure medications, but the medication changes did not help his symptoms.? He reports that the dizziness and lightheadedness are not constant but that they come and go.? He was told it was due to his blood pressure being too low, but he is not aware of any low BP readings.? He has finished treatment for Legionella and is still occasionally needing O2 at home.? He was seen in clinic with Dr Swain on July 10; prednisone was to continue at 5 mg daily until his September 11 followup.? He is still smoking tobacco with a 50 ppd history.? No chest pain, no abdominal pain, no N/V/D. On EMS arrival he was tachycardic to 140.? BP within normal limits.? On ED arrival EKG showed atrial flutter with HR 140, which spontaneously changed to afib with HR to the 130?s.? After giving fluids and diltiazem the rate improved to 90?s - 110?s.? Patient symptoms improved at this point.? Labs showed CARLOS MANUEL with BUN 43 and creatinine 2.0.? BNP is chronically elevated at 3100.? No elevated troponins.? CXR showed improvement since June.? [facility] cardiology was consulted and recommended admission for observation, cardiac monitoring, and resumption of diltiazem. PMH includes recent legionella pneumonia s/p completion of azithromycin course and continuing prednisone taper with PRN mucinex; atrial fibrillation on diltiazem and apixaban; HFpEF and HTN on amlodipine, carvedilol, lisinopril and rosuvastatin, COPD on trelegy ellipta, CAD with stent, chronic anemia. PFSH All Active Problems (Updated 08/08/25 @ 20:22 by Domingo Ferrari MD) Constipation, chronic (Acute) Major depression, recurrent, chronic (Acute) Tobacco dependence with current use (Acute) Acute kidney injury superimposed on chronic kidney disease (Acute) (HFpEF) heart failure with preserved ejection fraction (Acute) Atrial fibrillation with RVR (Acute) Presence of coronary angioplasty implant and graft (Acute) long term care social worker (current) use of systemic steroids (Acute) Edema (Acute) Muscle weakness (generalized) (Acute) Major depressive disorder (Chronic) Pleural effusion, right (Acute) Pulmonary infiltrates (Acute) Anemia, chronic disease (Acute) Sepsis (Acute) CARLOS MANUEL (acute kidney injury) (Acute) DNR (do not resuscitate) (Acute) As of 05/13/2025: Code status frequently changing. As of 05/13/2025: DNR, +trial of intubation, transfer and treat. Anxiety (Chronic) GERD (gastroesophageal reflux disease) (Chronic) Atrial fibrillation (Chronic) BPH w urinary obs/LUTS (Acute) Microcytic anemia (Chronic) UTI (urinary tract infection) (Acute) Presence of stent in coronary artery in patient with coronary artery disease (Chronic) Diastolic CHF (Chronic) Medical History (Updated 08/08/25 @ 20:22 by Domingo Ferrari MD) Hx of falling Palliative care patient Advanced care planning/counseling discussion Deficit in activities of daily living (ADL) Palliative care encounter ACP (advance care planning) Encounter for hospice care discussion Housing insecurity Financial difficulties Dyspnea Acute exacerbation of chronic obstructive pulmonary disease HTN (hypertension) Chronic renal failure Non-STEMI (non-ST elevated myocardial infarction) History of tobacco use Hypospadias Chronic kidney disease, stage 3 Peripheral arterial occlusive disease Constipation Depression Lower urinary tract symptoms (LUTS) Exertional dyspnea Pulmonary hypertension due to left heart disease Coronary artery disease Diastolic heart failure Lower back pain Dysuria Heartburn Screening for colon cancer Nocturia Urinary frequency Prediabetes Hypoxemia Multiple pulmonary nodules Lumbar back pain with radiculopathy affecting lower extremity Former smoker Congestion of nasal sinus CKD (chronic kidney disease) CHF (congestive heart failure) Alcoholism in recovery Hypospadias in male COPD (chronic obstructive pulmonary disease) Hyperlipidemia Essential hypertension Surgical History (Updated 07/31/25 @ 15:22 by Silvia Mckeon CMA) History of phacoemulsification of cataract of both eyes with intraocular lens implantation History of tonsillectomy Family History Father Throat cancer Heart disease Myocardial infarction Brother Heart disease Status post coronary stents Social History Smoking/Tobacco Use Status: Former Tobacco Use Quit Date: 01/11/17 Smoking risk assessment performed?: Yes Alcohol Intake: former Year quit: 2016 Details: Former alcoholic up to 2 cases of gin per month Drug use: Never Substance use type: does not use Housing: assisted living facility Number of Children: 0 Pets and animals: Yes Pets and animals: dog(s) What is your relationship status?: Panel score (0-1 are the most socially isolated patients): 1 Do you feel safe at home: Yes Do you feel safe in your relationship?: Yes Meds Allergies and Home Medications Allergies Allergy/AdvReac Type Severity Reaction Status Date / Time lisinopril AdvReac Unknown low BP, Unverified 08/08/25 16:53 worsening CKD codeine phosphate (From AdvReac constipatio Unverified 08/08/25 16:53 Tylenol-Codeine) n Home Medications ?Medication ?Instructions ?Recorded ?Confirmed ?Type nitroglycerin 0.4 mg sublingual 0.4 mg sublingual Q5M PRN 12/04/19 07/10/25 History tablet guaifenesin 600 mg tablet, 600 mg PO BID PRN 02/28/23 08/08/25 History extended release 12 hr (Mucinex) nicotine 21 mg/24 hr daily 1 patch transdermal DAILY 02/28/23 08/08/25 History transdermal patch apixaban 5 mg tablet (Eliquis) 5 mg PO BID #60 tabs 04/22/25 08/08/25 Rx polyethylene glycol 3350 17 gram 17 g PO DAILY PRN #30 ea 04/24/25 08/08/25 Rx oral powder packet pantoprazole 40 mg tablet,delayed 40 mg PO DAILY #60 tabs 04/30/25 08/08/25 Rx release (Protonix) oxycodone 5 mg tablet 5 mg PO Q4H PRN 05/14/25 08/08/25 History acetaminophen 325 mg capsule 325 mg PO Q6H PRN 06/13/25 08/08/25 History carvedilol 25 mg tablet 3.125 mg PO DAILY 06/13/25 08/08/25 History docusate sodium 100 mg capsule 100 mg PO BID PRN 06/13/25 08/08/25 History (Colace) ipratropium 0.5 mg-albuterol 3 mg 3 ml inhalation Q4H 06/13/25 08/08/25 History (2.5 mg base)/3 mL nebulization soln lorazepam 0.5 mg tablet (Ativan) 0.5 mg PO Q6H PRN 06/13/25 07/10/25 History torsemide 20 mg tablet 20 mg PO DAILY 06/13/25 08/08/25 History venlafaxine 75 mg capsule,extended 75 mg PO DAILY 06/13/25 08/08/25 History release 24 hr amlodipine 10 mg tablet 10 mg PO DAILY 06/24/25 08/08/25 History rosuvastatin 40 mg tablet 40 mg PO DAILY 06/24/25 08/08/25 History lisinopril 2.5 mg tablet 2.5 mg PO DAILY #30 tabs 06/25/25 08/08/25 Rx prednisone 10 mg tablet 10 mg PO DAILY #30 tabs 06/26/25 08/08/25 Rx fluticasone fur. 100 mcg-umeclid 1 inh inhalation DAILY 07/10/25 08/08/25 History 62.5 mcg-vilant 25 mcg inhalat.powder (Trelegy Ellipta) sennosides 8.6 mg tablet (Natural 8.6 mg PO BID PRN 07/10/25 08/08/25 History Senna Laxative) sorbitol 70 % solution 30 ml PO ONCE 07/10/25 08/08/25 History diltiazem HCl 30 mg tablet 30 mg PO BID 08/08/25 08/08/25 History Exam Narrative Exam Narrative: General: This is a pleasant man in no acute distress HEENT: Normocephalic, atraumatic CV: irregular rate and irregular rhythm, no murmur Resp: CTAB Abd: NTND MSK: voluntary motion x4 Neuro: Awake, alert, no focal deficits Results Labs 08/08/25 15:05 08/08/25 15:05 Labs: Laboratory Results - last 24 hr 08/08/25 08/08/25 08/08/25 15:05 16:20 18:02 WBC 11.85 H RBC 6.04 H Hgb 11.4 L Hct 38.7 L MCV 64 L MCH 18.9 L MCHC 29.5 L RDW 17.8 H Plt Count 383 MPV 8.8 Immature Gran % 0.4 Neutrophils % 85.2 Lymphocytes % 10.0 Monocytes % 3.2 Eosinophils % 0.8 Basophils % 0.4 Nucleated RBC % 0.3 Absolute Neutrophils 10.10 H Absolute Lymphocytes 1.19 L Absolute Monocytes 0.38 Absolute Eosinophils 0.09 Absolute Basophils 0.05 RBC Morphology See Below Anisocytosis 1+ Microcytosis 2+ PT 9.9 INR 1.0 Sodium 141 Potassium 4.5 Chloride 104 Carbon Dioxide 24.9 Anion Gap 12.1 H BUN 43 H Creatinine 2.0 H Est GFR (CKD-EPI 2020) 34.81 Glucose 137 H Calcium 9.1 Magnesium 2.2 Total Bilirubin 0.7 AST 18 ALT 34 Alkaline Phosphatase 72 Troponin I 25 21 Cancelled NT-Pro-B Natriuret Pep 3196 H Total Protein 7.9 Albumin 3.5 Lipase 102 H Last Vital Signs Pulse 67 08/08/25 18:16 Resp 18 08/08/25 18:16 BP 216/88 H 08/08/25 18:16 Pulse Ox 92 08/08/25 18:16 Time Spent Time spent with Patient: 40-54 minutes Time was spent: preparing to see the patient(eg.review tests), obtaining and/or reviewing separately otained hiistory, ordering medications,tests, procedures, referring, communicating with other health long term care social worker, indepentently interpreting results, counseling the patient and care coordination
--- NOTE | 2025-08-08 19:30 | NUR.NOTE ---
Nursing Note: Per provider, no need for complete orthostatic VS, as pt's HR 140's with ambulation to bathroom. No dizziness upon standing. Steady gait noted.
--- NOTE | 2025-08-08 20:13 | W.PC.ACHO ---
Registration Status: REG ER Primary Language: Preferred Language: Yakut ED Information & Data Chief Complaint Dizzy/Sync 08/08/25 19:27 Chief Complaint Dizzy/Sync 08/08/25 15:22 Triage Note BIBA from [facility] recent 08/08/25 15:00 med change Cardizem decreased dizziness tachycardia BP changes Medical / Surgical History (Last Updated 07/31/25 @ 15:22 by Silvia Mckeon CMA) Hx of falling Palliative care patient Advanced care planning/counseling discussion Deficit in activities of daily living (ADL) Palliative care encounter ACP (advance care planning) Encounter for hospice care discussion Housing insecurity Financial difficulties Dyspnea Acute exacerbation of chronic obstructive pulmonary disease HTN (hypertension) Chronic renal failure Non-STEMI (non-ST elevated myocardial infarction) History of tobacco use Hypospadias Chronic kidney disease, stage 3 Peripheral arterial occlusive disease Constipation Depression Lower urinary tract symptoms (LUTS) Exertional dyspnea Pulmonary hypertension due to left heart disease Coronary artery disease Diastolic heart failure Lower back pain Dysuria Heartburn Screening for colon cancer Nocturia Urinary frequency Prediabetes Hypoxemia Multiple pulmonary nodules Lumbar back pain with radiculopathy affecting lower extremity Former smoker Congestion of nasal sinus CKD (chronic kidney disease) CHF (congestive heart failure) Alcoholism in recovery Hypospadias in male COPD (chronic obstructive pulmonary disease) Hyperlipidemia Essential hypertension (Last Reviewed 06/18/25 @ 14:37 by Ange Carnes NP) History of phacoemulsification of cataract of both eyes with intraocular lens implantation History of tonsillectomy Most Recent Vital Signs Pulse 60 08/08/25 19:20 Pulse 102 H 08/08/25 19:20 Respiratory Rate 16 08/08/25 19:20 Blood Pressure 212/70 H 08/08/25 19:16 Blood Pressure Mean 122 08/08/25 19:16 Pulse Oximetry 90 L 08/08/25 19:20 Allergies lisinopril Adverse Reaction (Unknown, Unverified 08/08/25 16:53) low BP, worsening CKD codeine phosphate (From Tylenol-Codeine) Adverse Reaction (Unverified 08/08/25 16:53) constipation IV IV Catheter Type [Right Saline Lock Antecubital] IV Catheter Gauge [Right 18 Antecubital] Diet Orders Category Date Time Status Heart Healthy Eating [DIET] Nutrition 08/09/25 Breakfast Ordered Diagnostics 08/08/25 08/08/25 08/08/25 Range/Units 18:02 16:20 15:05 WBC 11.85 H (4.4-10.8) 10^3/uL RBC 6.04 H (4.36-5.78) 10^6/uL Hgb 11.4 L (13.5-17.5) g/dL Hct 38.7 L (40.0-50.0) % MCV 64 L (80-95) fL MCH 18.9 L (27.0-33.0) pg MCHC 29.5 L (32.0-36.0) % RDW 17.8 H (11.8-14.1) % Plt Count 383 (130-400) 10^3/uL MPV 8.8 (8.0-11.0) fL Immature Gran % 0.4 % Neutrophils % 85.2 % Lymphocytes % 10.0 % Monocytes % 3.2 % Eosinophils % 0.8 % Basophils % 0.4 % Nucleated RBC % 0.3 (0.0-0.3) % Absolute Neutrophils 10.10 H (1.2-6.7) 10^3/uL Absolute Lymphocytes 1.19 L (1.2-3.4) 10^3/uL Absolute Monocytes 0.38 (0.1-0.8) 10^3/uL Absolute Eosinophils 0.09 (0.0-0.7) 10^3/uL Absolute Basophils 0.05 (0.0-0.2) 10^3/uL RBC Morphology See Below Anisocytosis 1+ Microcytosis 2+ PT 9.9 (9.1-11.1) sec INR 1.0 (0.9-1.1) Sodium 141 (136-145) mmol/L Potassium 4.5 (3.5-5.1) mmol/L Chloride 104 (98-107) mmol/L Carbon Dioxide 24.9 (21.0-32.0) mmol/L Anion Gap 12.1 H (3-11) mmol/L BUN 43 H (7-18) mg/dL Creatinine 2.0 H (0.70-1.30) mg/dL Est GFR (CKD-EPI 2020) 34.81 (mL/min/1.73m2) Glucose 137 H (74-106) mg/dL Calcium 9.1 (8.5-10.1) mg/dL Magnesium 2.2 (1.8-2.4) mg/dL Total Bilirubin 0.7 (0.2-1.0) mg/dL AST 18 (15-37) U/L ALT 34 (16-63) U/L Alkaline Phosphatase 72 (46-116) U/L Troponin I Cancelled 21 25 (<or=76) ng/L NT-Pro-B Natriuret Pep 3196 H (<300) pg/mL Total Protein 7.9 (6.4-8.2) g/dL Albumin 3.5 (3.4-5.0) g/dL Lipase 102 H (<78) U/L Intake and Output - 24 Hour Total 08/08/25 14:54 thru 08/08/25 16:11 Intake Total 1010 Balance 1010 Weight 90.4 kg Intake: IV 1010 Falls Risk Assessment History of Falls Previous History 08/08/25 19:26 Contributing Factors Medications 08/08/25 19:26 Ambulatory Aids Independent 08/08/25 19:26 Tubes/Lines W/no contributing factors 08/08/25 19:26 Gait Evaluation No gait disturbance 08/08/25 19:26 Cognition No cognitive impairment 08/08/25 19:26 Fall Total Score 28 08/08/25 19:26 Level of Risk Moderate Risk 08/08/25 19:26 Notes 08/08/25 19:30 Nursing Notes by Kerri Campos Nursing Note: Per provider, no need for complete orthostatic VS, as pt's HR 140's with ambulation to bathroom. No dizziness upon standing. Steady gait noted. Initialized on 08/08/25 19:30 - END OF NOTE v v v v v v v v v Sending and/or Receiving Nurses: Please use comment section below to note any information pertinent to the patient hand-off not included above. Information / Comments:Patient has history of AF/AFL, and CAD, who came in from [facility], for dizziness, and blood pressure changes. He also was in AF/RVR 140's. Patient has been recently going through medication changes with his diltiazem, and amlodipine. So patient is admitted for observation, and diltiazem. In the ER patient was given IVP diltiazem and started on first dose of PO diltiazem. Also given and updraft for a recent cold he is recovering from. Received 1L LR. Report received from:Kerri Campos RN
[2025-08-08] MEDS: Apixaban 5 MG TAB PO (21:08)
[2025-08-08] MEDS: Rosuvastatin 20 MG TAB 40 MG PO (21:08)
[2025-08-08 23:19] LABS: MRSA PCR Negative (Negative)
[2025-08-09] VITALS (14 sets, daily range): BP systolic 146–173; BP diastolic 53–73; PULSE 66–93; RESP 14–19; TEMP 36.6–37.3; O2SAT 89–95
[2025-08-09] MEDS: dilTIAZem 30 MG TAB PO ×3 (00:41→13:59)
[2025-08-09 06:04] LABS: Abs Immature Grans 0.03 10^3/uL (0.0-0.06); HCT 35.5 % (40.0-50.0); HGB 10.7 g/dL (13.5-17.5); Immature Grans % 0.3 %; MCH 19.2 pg (27.0-33.0); MCHC 30.1 % (32.0-36.0); MCV 64 fL (80-95); MPV 9.3 fL (8.0-11.0); Platelet Count 360 10^3/uL (130-400); RBC 5.56 10^6/uL (4.36-5.78); RDW 17.0 % (11.8-14.1); RDW-SD 36.8 fL; WBC 9.49 10^3/uL (4.4-10.8)
[2025-08-09 06:29] LABS: ALT 33 U/L (16-63); AST 16 U/L (15-37); Albumin 3.2 g/dL (3.4-5.0); Alkaline Phosphatase 63 U/L (46-116); Anion Gap 10.3 mmol/L (3-11); BUN 37 mg/dL (7-18); Bilirubin, Total 0.6 mg/dL (0.2-1.0); CO2 25.7 mmol/L (21.0-32.0); Calcium 9.0 mg/dL (8.5-10.1); Chloride 106 mmol/L (98-107); Estimated GFR 42.30 (mL/min/1.73m2); Glucose 99 mg/dL (74-106); Magnesium 2.2 mg/dL (1.8-2.4); Potassium 3.7 mmol/L (3.5-5.1); Sodium 142 mmol/L (136-145); Total Protein 7.0 g/dL (6.4-8.2)
[2025-08-09] MEDS: amLODIPine 10 MG TAB PO (08:59)
[2025-08-09] MEDS: Pantoprazole 40 MG TABCR PO (08:59)
[2025-08-09] MEDS: Torsemide 20 MG TAB PO (08:59)
[2025-08-09] MEDS: Carvedilol 3.125 MG TAB PO (08:59)
[2025-08-09] MEDS: Venlafaxine 37.5 MG CAPCR 75 MG PO (09:00)
[2025-08-09] MEDS: Apixaban 5 MG TAB PO (09:00)
--- NOTE | 2025-08-09 11:25 | CMDISCH_ITS ---
Date of service: 08/09/25 Time of Service: 12:01 LACE Index Scoring Tool Questions: Length of Stay (in days): 1 Was the patient admitted via the E.D.?: Yes Comorbidities: Congestive Heart Failure and Liver or Renal Disease E.D. Visits: 6 Answers: Total Score: 13 Risk of Readmission: High Risk Care Management Discharge Plan Reason for Hospitalization: afib RVR Discharge Plan: Paul will be discharged to the [facility] today to continue his rehab. It is recommended he follow up with his facility providers and continue per his discharge plan of care. He will transport via [facility] private car as coordinated by Sonja [facility] notified of his arrival time and aware to meet [facility] outside (spoke to Levon-RN). Patient/Family Education Needs: Review of discharge instruction, activity, limitations, and plan of care. Discuss ask me three. Services Needed at Discharge: [facility] SDOH Health Related Social Needs: Health related social needs lonely/isolated Health related social needs details at health and reha b at this time Health related social needs details: at health and rehab at this time
--- NOTE | 2025-08-09 12:43 | DSE_ITS ---
Date of service: 08/09/25 Time of Service: 12:43 DS: Diagnosis Discharge Diagnosis (1) Atrial fibrillation with RVR: Status: Acute (2) Acute kidney injury superimposed on chronic kidney disease: Status: Acute (3) (HFpEF) heart failure with preserved ejection fraction: Status: Acute (4) COPD (chronic obstructive pulmonary disease): (5) jail (current) use of systemic steroids: Status: Acute (6) Microcytic anemia: Status: Chronic (7) Constipation, chronic: Status: Acute (8) GERD (gastroesophageal reflux disease): Status: Chronic (9) Major depression, recurrent, chronic: Status: Acute (10) Tobacco dependence with current use: Status: Acute Discharge Plan Disposition Patient Disposition: [facility]) Condition: Stable Condition: Improving Discharge Details Reason For Visit: afib RVR Admit Date/Time: 08/08/25 18:54 Admit Provider: Domingo Ferrari Attending Provider: Domingo Ferrari Primary Care Provider: Everardo Malloy Hospital Course Hospital Course: This is a 74-year-old gentleman with known history of A-fib presents with dizziness to the local ED. While he was in the ED he was noted to have A-fib with RVR as well as orthostasis. The patient is weightbearing 1 night in the hospital and his symptoms had completely resolved. On the he has to be discharged back [facility] the [place] which which he agreed. Patient was denying any chest pain at that time. In regards to diagnostic data his H&H was 10.7 and 35.5 indicating mild anemia. Patient also had a low MCV which generally indicates iron deficiency. The patient did not have a left shift. Patient's CMP did not indicate significant electrolyte abnormalities but did show possible small amount of dehydration. This was addressed with IV fluids. In reviewing old records he does appear to have iron deficiency with a iron level 48. In regards to imaging chest x-ray was done on admission which showed significant improvement in the right upper lobe opacity but some increased lung markings in the bases bilaterally right greater than left most likely atelectasis. At the time of discharge his heart rate was 67 did have mild hypertension which will need to be optimized in the outpatient setting. The patient would not appear to benefit from staying in the hospital when he has a [place] [facility] facility available to him Home Meds and New Rx's Prescriptions: New prednisone 5 mg Tablet 5 mg PO DAILY 15 Days Qty: 15 0RF Continued oxycodone 5 mg tablet 5 mg PO Q4H PRN sennosides [Natural Senna Laxative] 8.6 mg tablet 8.6 mg PO BID PRN sorbitol 70 % solution 30 ml PO ONCE Rx Instructions: Give 15mL by mouth as needed for promoting stool Day 2 Give 30mL by mouth as needed for promoting stool TID PRN Trelegy Ellipta 100-62.5-25 mcg blister with device 1 inh inhalation DAILY nitroglycerin 0.4 mg tablet, sublingual 0.4 mg SL Q5M PRN Patient Comments: unknown date guaifenesin [Mucinex] 600 mg tablet extended release 12hr 600 mg PO BID PRN nicotine 21 mg/24 hr patch 24 hour 1 patch transdermal DAILY Eliquis 5 mg tablet 5 mg PO BID Qty: 60 0RF polyethylene glycol 3350 17 gram Powder In Packet 17 g PO DAILY PRNQty: 30 0RF pantoprazole [Protonix] 40 mg tablet,delayed release (DR/EC) 40 mg PO DAILY Qty: 60 0RF lorazepam [Ativan] 0.5 mg tablet 0.5 mg PO Q6H PRN Patient Comments: per patient report took dose two months ago, and states he does not take it often acetaminophen 325 mg capsule 325 mg PO Q6H PRN torsemide 20 mg tablet 20 mg PO DAILY carvedilol 25 mg tablet 3.125 mg PO DAILY Rx Instructions: must administer with a meal/food venlafaxine 75 mg capsule,extended release 24hr 75 mg PO DAILY ipratropium-albuterol 0.5 mg-3 mg(2.5 mg base)/3 mL solution for nebulization 3 ml IH Q4H docusate sodium [Colace] 100 mg Capsule 100 mg PO BID PRN amlodipine 10 mg tablet 10 mg PO DAILY Patient Comments: TAKE ONE TABLET BY MOUTH EVERY DAY rosuvastatin 40 mg tablet 40 mg PO DAILY Patient Comments: TAKE ONE TABLET BY MOUTH EVERY DAY lisinopril 2.5 mg Tablet 2.5 mg PO DAILY Qty: 30 5RF Changed diltiazem HCl 30 mg Tablet 30 mg PO QID Qty: 0 0RF Discontinued prednisone 10 mg tablet 10 mg PO DAILY Qty: 30 0RF Discharge Instructions Referrals: Everardo Malloy MD [Primary Care Provider, Medicine] Referral Note: follow up in 5-7 days Wiliam Swain MD [ [facility] STAFF PHYSICIAN, Pulmonology] Referral Note: follow up in 1-2 weeks Activity:: Activity as Tolerated Equipment/Supplies:: No Equipment Needed Diet:: As Tolerated Discharge Orders Discharge Orders: Discharge Order (Routine); Ordered 08/09/25 Ordered By: Everardo Anne DS: Summary Time Spent with Patient providing and/or coordinating discharge services: Less than 30 minutes Status at Discharge Functional status at discharge: independent ambulation Overall status at discharge: patient is back to baseline Mental Status: mental status grossly normal Speech and Movement: speech and movement normal Mood: congruent mood Affect: normal affect Quality:SDOH Health Related Social Needs: Health related social needs lonely/isolated Health related social needs details at [facility] at this time Health related social needs details: at [facility] at this time Exam Narrative Exam Narrative: General: This is a pleasant man in no acute distress HEENT: Normocephalic, atraumatic CV: irregular rate and irregular rhythm, no murmur Resp: CTAB Abd: NTND MSK: voluntary motion x4 Neuro: Awake, alert, no focal deficits Psych Mental Status: mental status grossly normal Speech and Movement: speech and movement normal Mood: congruent mood Affect: normal affect DS: Data Vitals/I&O Vitals and I&O: Vital Signs Temperature 36.6 C 08/09/25 10:20 Temperature Source Temporal Artery Scan 08/09/25 10:20 Pulse 67 08/09/25 10:00 Pulse 68 08/09/25 10:00 Respiratory Rate 16 08/09/25 10:00 Respiratory Effort Normal 08/08/25 20:20 Respiratory Depth Normal 08/08/25 20:20 Respiratory Pattern Normal 08/08/25 20:20 Blood Pressure 173/60 H 08/09/25 10:00 Blood Pressure Mean 91 08/09/25 10:00 Blood Pressure Position Supine 08/08/25 20:20 Pulse Oximetry 89 L 08/09/25 10:00 Oxygen Delivery Method Room Air 08/09/25 04:30 Oxygen Flow Rate 0 08/09/25 04:30 Pain Level 0 08/09/25 09:15 Intake & Output 08/08/25 08/09/25 08/09/25 23:59 11:59 23:59 Intake Total 1010 / 1010 800 / 800 Output Total 250 / 250 775 / 775 Balance 760 / 760 Weight 89.4 kg 88.9 kg Intake: IV 1010 / 1010 Oral 800 / 800 Output: Urine 250 / 250 775 / 775 Other: Urine Color Yellow Yellow Urine Appearance Clear Clear Urine Odor Foul Strong Data Completed and Pending Labs on day of discharge: Labs from last 24 hours 08/09/25 08/08/25 08/08/25 05:27 21:53 18:02 WBC 9.49 RBC 5.56 Hgb 10.7 L Hct 35.5 L MCV 64 L MCH 19.2 L MCHC 30.1 L RDW 17.0 H Plt Count 360 MPV 9.3 Immature Gran % 0.3 Neutrophils % 63.6 Lymphocytes % 27.0 Monocytes % 6.7 Eosinophils % 1.7 Basophils % 0.7 Nucleated RBC % 0.0 Absolute Neutrophils 6.03 Absolute Lymphocytes 2.56 Absolute Monocytes 0.64 Absolute Eosinophils 0.16 Absolute Basophils 0.07 RBC Morphology Anisocytosis Microcytosis PT INR Sodium 142 Potassium 3.7 Chloride 106 Carbon Dioxide 25.7 Anion Gap 10.3 BUN 37 H Creatinine 1.7 H Est GFR (CKD-EPI 2020) 42.30 Glucose 99 Calcium 9.0 Magnesium 2.2 Total Bilirubin 0.6 AST 16 ALT 33 Alkaline Phosphatase 63 Troponin I Cancelled NT-Pro-B Natriuret Pep Total Protein 7.0 Albumin 3.2 L Lipase MRSA (TEM-PCR) Negative 08/08/25 08/08/25 16:20 15:05 WBC 11.85 H RBC 6.04 H Hgb 11.4 L Hct 38.7 L MCV 64 L MCH 18.9 L MCHC 29.5 L RDW 17.8 H Plt Count 383 MPV 8.8 Immature Gran % 0.4 Neutrophils % 85.2 Lymphocytes % 10.0 Monocytes % 3.2 Eosinophils % 0.8 Basophils % 0.4 Nucleated RBC % 0.3 Absolute Neutrophils 10.10 H Absolute Lymphocytes 1.19 L Absolute Monocytes 0.38 Absolute Eosinophils 0.09 Absolute Basophils 0.05 RBC Morphology See Below Anisocytosis 1+ Microcytosis 2+ PT 9.9 INR 1.0 Sodium 141 Potassium 4.5 Chloride 104 Carbon Dioxide 24.9 Anion Gap 12.1 H BUN 43 H Creatinine 2.0 H Est GFR (CKD-EPI 2020) 34.81 Glucose 137 H Calcium 9.1 Magnesium 2.2 Total Bilirubin 0.7 AST 18 ALT 34 Alkaline Phosphatase 72 Troponin I 21 25 NT-Pro-B Natriuret Pep 3196 H Total Protein 7.9 Albumin 3.5 Lipase 102 H MRSA (TEM-PCR) PFSH All Active Problems (Updated 08/08/25 @ 20:22 by Domingo Ferrari MD) Constipation, chronic (Acute) Major depression, recurrent, chronic (Acute) Tobacco dependence with current use (Acute) Acute kidney injury superimposed on chronic kidney disease (Acute) (HFpEF) heart failure with preserved ejection fraction (Acute) Atrial fibrillation with RVR (Acute) Presence of coronary angioplasty implant and graft (Acute) jail (current) use of systemic steroids (Acute) Edema (Acute) Muscle weakness (generalized) (Acute) Major depressive disorder (Chronic) Pleural effusion, right (Acute) Pulmonary infiltrates (Acute) Anemia, chronic disease (Acute) Sepsis (Acute) CARLOS MANUEL (acute kidney injury) (Acute) DNR (do not resuscitate) (Acute) As of 05/13/2025: Code status frequently changing. As of 05/13/2025: DNR, +trial of intubation, transfer and treat. Anxiety (Chronic) GERD (gastroesophageal reflux disease) (Chronic) Atrial fibrillation (Chronic) BPH w urinary obs/LUTS (Acute) Microcytic anemia (Chronic) UTI (urinary tract infection) (Acute) Presence of stent in coronary artery in patient with coronary artery disease (Chronic) Diastolic CHF (Chronic) Medical History (Updated 08/08/25 @ 20:22 by Domingo Ferrari MD) Hx of falling Palliative care patient Advanced care planning/counseling discussion Deficit in activities of daily living (ADL) Palliative care encounter ACP (advance care planning) Encounter for hospice care discussion Housing insecurity Financial difficulties Dyspnea Acute exacerbation of chronic obstructive pulmonary disease HTN (hypertension) Chronic renal failure Non-STEMI (non-ST elevated myocardial infarction) History of tobacco use Hypospadias Chronic kidney disease, stage 3 Peripheral arterial occlusive disease Constipation Depression Lower urinary tract symptoms (LUTS) Exertional dyspnea Pulmonary hypertension due to left heart disease Coronary artery disease Diastolic heart failure Lower back pain Dysuria Heartburn Screening for colon cancer Nocturia Urinary frequency Prediabetes Hypoxemia Multiple pulmonary nodules Lumbar back pain with radiculopathy affecting lower extremity Former smoker Congestion of nasal sinus CKD (chronic kidney disease) CHF (congestive heart failure) Alcoholism in recovery Hypospadias in male COPD (chronic obstructive pulmonary disease) Hyperlipidemia Essential hypertension Surgical History (Updated 07/31/25 @ 15:22 by Silvia Mckeon CMA) History of phacoemulsification of cataract of both eyes with intraocular lens implantation History of tonsillectomy Family History Father Throat cancer Heart disease Myocardial infarction Brother Heart disease Status post coronary stents Social History Smoking/Tobacco Use Status: Former Tobacco Use Quit Date: 01/11/17 Smoking risk assessment performed?: Yes Alcohol Intake: former Year quit: 2016 Details: Former alcoholic up to 2 cases of gin per month Drug use: Never Substance use type: does not use Housing: other Number of Children: 0 Pets and animals: Yes Pets and animals: dog(s) What is your relationship status?: Panel score (0-1 are the most socially isolated patients): 1 Do you feel safe at home: Yes Do you feel safe in your relationship?: Yes Time Spent with Patient Time Spent with Patient: <45 minutes Time was spent: preparing to see the patient(eg.review tests), obtaining and/or reviewing separately otained hiistory, ordering medications,tests, procedures, referring, communicating with other health home child care provider, indepentently interpreting results, counseling the patient and care coordination
[2025-08-09] MEDS: FLU Vaccine TS 2025-26 PF (36MOS UP) 45 MCG/0.5 ML SYR IM (15:26)
== END 2025-08-09 14:10 | disposition skilled nursing facility (03) ==
LOC: ER 19:08 → ICU 20:13
PROVIDERS: Admitting Provider Family Medicine; Emergency Provider Emergency Medicine; PCP Family Medicine; Visit Provider Family Medicine
DX: I48.91 Unspecified atrial fibrillation (principal); R42 Dizziness and giddiness; I50.30 Unspecified diastolic (congestive) heart failure; N17.9 Acute kidney failure, unspecified; N18.9 Chronic kidney disease, unspecified; Z79.52 Long term (current) use of systemic steroids; D50.9 Iron deficiency anemia, unspecified; K21.9 Gastro-esophageal reflux disease without esophagitis; K59.09 Other constipation; F17.210 Nicotine dependence, cigarettes, uncomplicated; F33.9 Major depressive disorder, recurrent, unspecified; J44.9 Chronic obstructive pulmonary disease, unspecified; I13.0 Hypertensive heart and chronic kidney disease with heart failure and stage 1 through stage 4 chronic kidney disease, or unspecified chronic kidney disease; I25.10 Atherosclerotic heart disease of native coronary artery without angina pectoris; Z95.5 Presence of coronary angioplasty implant and graft; Z66 Do not resuscitate; N40.1 Benign prostatic hyperplasia with lower urinary tract symptoms; N13.8 Other obstructive and reflux uropathy; E78.5 Hyperlipidemia, unspecified; F10.21 Alcohol dependence, in remission; R91.8 Other nonspecific abnormal finding of lung field; I27.22 Pulmonary hypertension due to left heart disease; Z79.01 Long term (current) use of anticoagulants; Z87.01 Personal history of pneumonia (recurrent)
CPT/HCPCS: 00123; 36415; 80053; 83690; 87641; 90656; 93005; 94640; 96361; 96374; 99285; 71045; 83735; 83880; 84484; 85025; 85610; 93010; 99222; 99238; G0378; J7512; J7620

== ENCOUNTER → 2025-08-11 08:20 | Outpatient (BNVA) | payer MEDICARE, SELFPAY | PROVIDERS: PCP Family Medicine; Referring Provider Family Medicine; Visit Provider Podiatrist | DX: L60.3 Nail dystrophy (principal); B35.1 Tinea unguium; L60.2 Onychogryphosis; N18.31 Chronic kidney disease, stage 3a; I77.9 Disorder of arteries and arterioles, unspecified; D50.9 Iron deficiency anemia, unspecified; I73.89 Other specified peripheral vascular diseases; I70.223 Atherosclerosis of native arteries of extremities with rest pain, bilateral legs; J44.9 Chronic obstructive pulmonary disease, unspecified; R09.89 Other specified symptoms and signs involving the circulatory and respiratory systems; L60.8 Other nail disorders; L60.0 Ingrowing nail | CPT/HCPCS: 11721; 93922 ==

== ENCOUNTER 2025-08-12 17:13 | Outpatient (REF) | payer SELFPAY ==
[2025-08-12 13:52] LABS: Abs Immature Grans 0.06 10^3/uL (0.0-0.06); HCT 38.3 % (40.0-50.0); HGB 11.2 g/dL (13.5-17.5); Immature Grans % 0.5 %; MCH 18.7 pg (27.0-33.0); MCHC 29.2 % (32.0-36.0); MCV 64 fL (80-95); MPV 9.3 fL (8.0-11.0); Platelet Count 366 10^3/uL (130-400); RBC 6.00 10^6/uL (4.36-5.78); RDW 18.1 % (11.8-14.1); RDW-SD 36.9 fL; WBC 12.56 10^3/uL (4.4-10.8)
[2025-08-12 14:10] LABS: Anisocytosis 2+; Hypochromasia 1+; Microcytosis 2+
[2025-08-12 14:21] LABS: ALT 20 U/L (16-63); AST 9 U/L (15-37); Albumin 3.3 g/dL (3.4-5.0); Alkaline Phosphatase 71 U/L (46-116); Anion Gap 10.0 mmol/L (3-11); BUN 40 mg/dL (7-18); Bilirubin, Total 0.9 mg/dL (0.2-1.0); CO2 29.0 mmol/L (21.0-32.0); Calcium 9.0 mg/dL (8.5-10.1); Chloride 103 mmol/L (98-107); Estimated GFR 29.43 (mL/min/1.73m2); Glucose 120 mg/dL (74-106); Potassium 4.8 mmol/L (3.5-5.1); Sodium 142 mmol/L (136-145); Total Protein 7.0 g/dL (6.4-8.2)
== END 2025-08-12 17:14 | disposition home or self-care (01) ==
LOC: LBN 17:13
PROVIDERS: PCP Family Medicine; Visit Provider Nurse Practitioner Adult Health
DX: I50.33 Acute on chronic diastolic (congestive) heart failure (principal)
CPT/HCPCS: 80053; 85025

== ENCOUNTER 2025-08-13 03:36 | Outpatient (CLI) | payer MEDICARE, SELFPAY ==
--- NOTE | 2025-08-13 09:35 | DI.RAD_ITS ---
Exam(s) XR CHEST 2V PA LATERAL EXAM: XR CHEST 2V PA LATERAL CLINICAL HISTORY: CHEST PAIN, R07.9 TECHNIQUE: 2D digital imaging was performed. Two views. COMPARISON: CR XR PORTABLE CHEST AP from 09/22/2023 CR XR CHEST 2V PA LATERAL from 04/14/2025 CR XR PORTABLE CHEST AP from 06/20/[address] CHEST W from 06/21/2025 CR XR PORTABLE CHEST AP from 08/08/2025 FINDINGS: HEART: Normal size. Aorta: Not dilated. PULMONARY VASCULATURE: Normal. MEDIASTINUM: Unremarkable. LUNGS: There has been continued improvement in the previously noted right apical infiltrate. Stable nodule in the mid right lung field. PLEURAL SPACE: No pleural effusion or pneumothorax. Some right apical pleural thickening persists. BONE:Unremarkable for age. SOFT TISSUES: Unremarkable. IMPRESSION: Continued improvement in right upper lobe infiltrate. No new abnormalities. DATA REPOSITORY: RADIATION DOSE DELIVERED:
== END 2025-08-13 03:56 ==
PROVIDERS: PCP Family Medicine; Visit Provider Family Medicine
DX: R07.9 Chest pain, unspecified (principal); R91.8 Other nonspecific abnormal finding of lung field
CPT/HCPCS: 71046

== ENCOUNTER 2025-08-20 19:23 | Outpatient (REF) | payer MEDICARE, SELFPAY ==
[2025-08-20 18:49] LABS: Glucose Negative (Negative)
[2025-08-20 18:55] LABS: WBC >50 HPF (0-5)
== END 2025-08-20 19:24 | disposition home or self-care (01) ==
LOC: LBN 19:23
PROVIDERS: PCP Family Medicine; Visit Provider Family Medicine
DX: N18.31 Chronic kidney disease, stage 3a (principal)
CPT/HCPCS: 87077; 81003; 81015; 87086; 87186

== ENCOUNTER → 2025-09-11 13:15 | Outpatient (BNVA) | payer MEDICARE, SELFPAY | PROVIDERS: PCP Family Medicine; Referring Provider Family Medicine; Visit Provider Internal Medicine Pulmonary Disease | DX: J44.0 Chronic obstructive pulmonary disease with (acute) lower respiratory infection (principal); R91.8 Other nonspecific abnormal finding of lung field; Z87.891 Personal history of nicotine dependence; Z29.11 Encounter for prophylactic immunotherapy for respiratory syncytial virus (RSV) | CPT/HCPCS: 99214; 90679; 90471 ==

== ENCOUNTER 2025-09-15 20:34 | Outpatient (REF) | payer MEDICARE, SELFPAY ==
[2025-09-15 20:47] LABS: Glucose Negative (Negative)
[2025-09-15 20:57] LABS: WBC >50 HPF (0-5)
== END 2025-09-15 20:35 | disposition home or self-care (01) ==
LOC: LBN 20:34
PROVIDERS: PCP Family Medicine; Visit Provider Nurse Practitioner Adult Health
DX: N39.0 Urinary tract infection, site not specified (principal)
CPT/HCPCS: 87077; 81003; 81015; 87086; 87186

== ENCOUNTER 2025-09-18 08:38 | Outpatient (CLI) | payer MEDICARE, SELFPAY ==
--- NOTE | 2025-09-18 08:30 | RT.EKG_ITS ---
APPROVED REPORT Exam: Resting ECG Reason for Exam: AFIB Patient Location: O HR:60 bpm ECG Measurements Heart Rate 60 AXIS MN 198 P 53 QRSd 99 QRS 31 QT 408 T 60 QTc 408 Conclusion Sinus rhythm...normal P axis, V-rate 50- 99 Baseline wander in lead(s) V2 Normal Electrocardiogram
== END 2025-09-18 08:39 | disposition home or self-care (01) ==
LOC: DI.CARD 08:39
PROVIDERS: PCP Family Medicine; Visit Provider Internal Medicine Cardiovascular Disease
DX: I48.91 Unspecified atrial fibrillation (principal); I50.32 Chronic diastolic (congestive) heart failure; I21.4 Non-ST elevation (NSTEMI) myocardial infarction
CPT/HCPCS: 93010

== ENCOUNTER → 2025-09-18 10:56 | Outpatient (BNVA) | payer MEDICARE, SELFPAY | PROVIDERS: PCP Family Medicine; Referring Provider Family Medicine; Visit Provider Internal Medicine Cardiovascular Disease | DX: I21.4 Non-ST elevation (NSTEMI) myocardial infarction (principal); I48.0 Paroxysmal atrial fibrillation; I50.32 Chronic diastolic (congestive) heart failure; Z95.5 Presence of coronary angioplasty implant and graft; I25.10 Atherosclerotic heart disease of native coronary artery without angina pectoris; I10 Essential (primary) hypertension; J44.9 Chronic obstructive pulmonary disease, unspecified | CPT/HCPCS: 99214; 93005 ==

== ENCOUNTER 2025-09-21 12:52 | Outpatient (REF) | payer MEDICARE, SELFPAY ==
[2025-09-21 13:43] LABS: COVID-19 PCR Negative (Negative); RSV PCR Negative (Negative)
== END 2025-09-21 12:53 | disposition home or self-care (01) ==
LOC: LBN 12:52
PROVIDERS: PCP Family Medicine; Visit Provider Nurse Practitioner Adult Health
DX: J06.9 Acute upper respiratory infection, unspecified (principal)
CPT/HCPCS: 87637

== ENCOUNTER → 2025-09-24 01:25 | Outpatient (CLI) | payer MEDICARE, SELFPAY ==
--- NOTE | 2025-09-24 15:49 | DI.CT_ITS ---
Exam(s) CT CHEST WO EXAM: CT CHEST WO CLINICAL HISTORY: re-evaluate pulmonary infiltrates,R91.8. TECHNIQUE: Multi planar reconstructions were performed. CONTRAST MATERIAL: None COMPARISON: CT CT CHEST WO from 02/27/[address] CHEST W from 06/21/2025 FINDINGS: CHEST: LUNGS: Although there has been some improvement in the previously described right upper lobe infiltrate, there remains a concerning pleural based right upper lobe infiltrate, presently without cavitations and containing 1 tiny calcification in its medial aspect. This does not appear to obviously invade the chest wall and there is no overlying rib destruction. Nevertheless, still somewhat suspicious for neoplasm. Otherwise there is again noted stable pleural based density in the anterior aspect of the right upper lobe with multiple calcifications, unchanged from multiple prior CT scans and most probably benign. No significant findings in the right middle lobe. No new right lower lobe findings and the previously present right pleural effusion has resolved. There are no new significant left lung findings and no left pleural effusion. There are no significant focal findings in the trachea and mainstem bronchi. MEDIASTINUM: There is no obvious hilar adenopathy. Slightly prominent right paratracheal lymph node again noted, slightly larger than previous. Also a few minimally prominent lymph nodes again noted in the anterior mediastinal fat. There is no prominent subcarinal adenopathy. Partially visualized thyroid unremarkable.No supraclavicular adenopathy. No axillary adenopathy. CARDIAC: Heart size is normal. There is relatively focal thickening of the anterior pericardium noted consistent with small pericardial effusion.There is heavy coronary artery calcification both right and left coronary arteries. The diameter of the ascending thoracic aorta is normal. VISUALIZED UPPER ABDOMEN:Atrophic left kidney again noted. No adrenal masses. No ascites. OSSEOUS: No significant osseous lesions.No fractures.. IMPRESSION: 1. Compared to CT scan of 06/21/2025 there has been interval resolution of a significant amount of infiltrate in the right upper lobe as well as resolution of the previously present small-moderate size right pleural effusion. However, there is still remaining a large pleural based non cavitated spiculated infiltrate in the right upper lobe which measures approximately 5 x 5 x 6 cm. This is not associated with overlying rib destruction. There is no obvious hilar adenopathy. Slightly prominent right paratracheal lymph node noted as well as a few slightly prominent lymph nodes in the anterior mediastinal fat. Although this prominent infiltrate may be remnant infectious etiology, its appearance is also suspicious for neoplasm and close follow-up is recommended. If clinically indicated this right upper lobe mass would be amenable to percutaneous CT-guided biopsy by interventional radiology. RADIATION DOSE DELIVERED: 262.51mGy.cm Total DLP DATA REPOSITORY: All CT scans at this facility are submitted to the National Radiology Data Registry (NRDR) Dose Index Registry (DIR) with the [employer] ([employer]). RADIATION OPTIMIZATION: All CT scans at this facility use at least one of these dose optimization techniques: automated exposure control; mA and/or kV adjustment per patient size (includes targeted exams where dose is matched to clinical indication); or iterative reconstruction.
== END ==
LOC: DI 01:25
PROVIDERS: PCP Family Medicine; Visit Provider Internal Medicine Pulmonary Disease
DX: R91.8 Other nonspecific abnormal finding of lung field (principal)
CPT/HCPCS: 71250

== ENCOUNTER → 2025-09-30 14:36 | Outpatient (BNVA) | payer MEDICARE, SELFPAY | PROVIDERS: PCP Family Medicine; Referring Provider Family Medicine; Visit Provider Internal Medicine Pulmonary Disease | DX: J44.0 Chronic obstructive pulmonary disease with (acute) lower respiratory infection (principal); R91.8 Other nonspecific abnormal finding of lung field; I25.10 Atherosclerotic heart disease of native coronary artery without angina pectoris; Z87.891 Personal history of nicotine dependence | CPT/HCPCS: 99214 ==

== ENCOUNTER 2025-10-05 12:50 | Outpatient (REF) | payer MEDICARE, SELFPAY ==
[2025-10-05 13:05] LABS: Glucose Negative (Negative)
[2025-10-05 13:13] LABS: WBC 20-50 HPF (0-5)
[2025-10-05 13:14] LABS: RBC >50 HPF (0-2)
== END 2025-10-05 12:51 | disposition home or self-care (01) ==
LOC: LBN 12:50
PROVIDERS: PCP Family Medicine; Visit Provider Nurse Practitioner Adult Health
DX: N39.0 Urinary tract infection, site not specified (principal)
CPT/HCPCS: 81003; 81015; 87086

== ENCOUNTER 2025-10-10 10:57 | Outpatient (REF) | payer MEDICARE, SELFPAY ==
[2025-10-10 11:16] LABS: Glucose Negative (Negative)
[2025-10-10 11:33] LABS: WBC >50 HPF (0-5)
== END 2025-10-10 10:58 | disposition home or self-care (01) ==
LOC: LBN 10:57
PROVIDERS: PCP Family Medicine; Visit Provider Nurse Practitioner Adult Health
DX: N39.0 Urinary tract infection, site not specified (principal)
CPT/HCPCS: 87077; 81003; 81015; 87086; 87186

== ENCOUNTER 2025-11-08 13:23 | Outpatient (REF) | payer MEDICARE, SELFPAY ==
[2025-11-08 13:39] LABS: Glucose Negative (Negative)
[2025-11-08 13:45] LABS: WBC >50 HPF (0-5)
== END 2025-11-08 13:24 | disposition home or self-care (01) ==
LOC: LBN 13:23
PROVIDERS: PCP Family Medicine; Visit Provider Nurse Practitioner Adult Health
DX: R30.0 Dysuria (principal)
CPT/HCPCS: 87077; 81003; 81015; 87086; 87186